=== PATIENT | female | born 1980 | race Caucasian/White ===

== ENCOUNTER → 2019-09-11 08:31 | Outpatient (BNVA) | payer OTHER, SELFPAY | PROVIDERS: PCP Nurse Practitioner Family; Visit Provider Psychiatry & Neurology Psychiatry | DX: F41.1 Generalized anxiety disorder (principal); F31.76 Bipolar disorder, in full remission, most recent episode depressed | CPT/HCPCS: 99213 ==

== ENCOUNTER 2019-09-17 12:55 | Outpatient (CLI) | payer OTHER, SELFPAY ==
--- NOTE | 2019-09-17 13:09 | CT_ITS ---
WS: [id number] CT ABDOMEN AND PELVIS NONCONTRAST HISTORY: NAUSEA AND VOMITING, ABDOMINAL PAIN, GENERALIZED, BLOATING TECHNIQUE: Imaging performed through the abdomen and pelvis. Coronal and sagittal reformats are submi tted. All CT scans at [facility] use at least one of these dose optimization techniques: automated exposure control; mA and/or kV adjustment per patient size (includes targeted exams where d ose is matched to clinical indication); or iterative reconstruction. DLP: 1235.85 mGycm COMPARISON: 07/26/2015 Lower thorax: Lung bases are clear. No hiatal hernia. Liver: Normal size liver with hepatic steatosis. No mass. Gallbladder: Prior cholecystectomy. Pancreas: Normal. Spleen: Normal. Adrenal glands: Normal. Right kidney: Normal size with no stones, masses or atrophy. Left kidney: Normal size with no stones, mass or atrophy. Abdominal aorta and IVC are unremarkable. No free fluid, intraperitoneal air or significant lymphadenopathy. GI tract: Prior appendectomy. Diffuse moderate constipation. No wall thickening or edema. Abdominal wall: Intact. Pelvis: Well-distended urinary bladder. No free fluid or adenopathy. Prior hysterectomy. Osseous structures: Unremarkable. CT/CT abdomen pelvis wo con [id number] IMPRESSION: 1. No acute abdominal or pelvic abnormalities are identified. 2. Moderate diffuse constipation. 3. Prior appendectomy, cholecystectomy and hysterectomy. 4. Hepatic steatosis.
[2019-09-17] MEDS: iohexol 300 mg/mL 50 mL Btl PO (14:49)
== END 2019-09-17 12:56 | disposition home or self-care (01) ==
LOC: RADWPI 13:01
PROVIDERS: PCP Nurse Practitioner Family; Visit Provider Nurse Practitioner Family
DX: K59.00 Constipation, unspecified (principal); K76.0 Fatty (change of) liver, not elsewhere classified; R10.84 Generalized abdominal pain; R14.0 Abdominal distension (gaseous); R19.7 Diarrhea, unspecified; R11.2 Nausea with vomiting, unspecified; Z90.49 Acquired absence of other specified parts of digestive tract; Z90.710 Acquired absence of both cervix and uterus
CPT/HCPCS: 74176

== ENCOUNTER → 2019-11-05 08:37 | Outpatient (BNVA) | payer OTHER, SELFPAY | PROVIDERS: Visit Provider Psychiatry & Neurology Psychiatry | DX: F41.1 Generalized anxiety disorder (principal); F31.76 Bipolar disorder, in full remission, most recent episode depressed | CPT/HCPCS: 80178; 99213 ==

== ENCOUNTER 2020-01-28 22:46 | Emergency (ER) | payer OTHER, SELFPAY ==
--- NOTE | 2020-01-28 22:51 | XR_ITS ---
WS: [id number] XR chest 1V portable [id number] REASON FOR EXAM: chest pain FINDINGS: The heart and mediastinal interfaces normal. The lung jeronimo are well aerated no pneumonia, pleural effusion, pulmonary edema, are pneumothorax. Postop changes in the anterior lower cervical spine. The hilum and apices normal. XR/XR chest 1V portable [id number] IMPRESSION: Negative chest for acute findings.
--- NOTE | 2020-01-28 22:51 | ECG_ITS ---
Measurements Intervals [place] Rate: 108 P: 52 MI: 144 QRS: 89 QRSD: 114 T: 22 QT: 328 QTc: 441 SINUS TACHYCARDIA POSSIBLE LEFT ATRIAL ENLARGEMENT [-0.1mV P WAVE IN V1/V2] MODERATE INTRAVENTRICULAR CONDUCTION DELAY [110+ ms QRS DURATION] ABNORMAL RHYTHM ECG Compared to ECG 07/08/2018 07:29:52 Intraventricular conduction delay now present Sinus rhythm no longer present T-wave abnormality no longer present Electronically Signed On 01-29-2020 19:36:57 CDT by Danilo Concepcion M.D. [email or web address]
[2020-01-28 22:56] VITALS: BP 190/132; PULSE 112; RESP 14; TEMP 36.5; O2SAT 100; BMI 36.2
--- NOTE | 2020-01-28 23:07 | PC.NURSE ---
Patient refused blood draw from phlebotomy and wanted nurse to place IV access and draw blood.
--- NOTE | 2020-01-28 23:10 | ED_ITS ---
HPI - Chest Pain General: Chief Complaint: Chest Pain Stated Complaint: cp Time Seen by Provider: 01/28/20 23:02 History of Present Illness: HPI narrative: Patient complained that chest pain is gone for the last week and a half did see cardiology services they ordered some tests on her earnings come back negative so far but still waiting test has not had blood work done. Patient complains like her heart racing has some chest pain no shortness of breath no diaphoresis said she did vomit x2 today MD complaint: chest pain Onset (ago): day(s) Timing of current episode: increasing Prior episodes: Yes Pain radiation: left arm and neck Severity: moderate Quality: sharp Relieving factors: nothing Exacerbating factors: nothing Associated symptoms: Reports no associated symptoms and vomiting; Deny abdominal pain, dyspnea, fever(s) or nausea Review of Systems Const: Denies: fever(s), chills or body aches Eyes: Denies: change in vision or blurry vision ENMT: Denies: throat pain or nasal congestion Card: Reports: chest pain; Denies: dyspnea on exertion Resp: Denies: dyspnea, productive cough or non-productive cough GI: Reports: vomiting; Denies: abdominal pain or nausea Musc: Denies: extremity pain Skin/Breast: Denies: rash Neuro: Denies: headache(s) Psych: Denies: anxiety or depression Fahad/Lymph: Denies: easy bruising PFSH ED PFSH: Medical History (Updated 01/27/20 @ 14:35 by TORSTEN Baeza) Bipolar disorder, in full remission, most recent episode depressed Chronic renal disease Generalized anxiety disorder Malignant hypertension Surgical History H/O rectal polypectomy H/O total thyroidectomy History of appendectomy History of bilateral oophorectomy 2011 History of spinal fusion 10/01/2013- C5-6, ACDFF Dr. Villanueva History of suburethral sling procedure anterior colporrhapy augmentd with porcine graft, cystoscopy performed on 03/08/[address] Haley History of total hysterectomy 2000 Hx of cholecystectomy Status post hemilaminotomy 01/06/2012, right L5-S1, disectomy and foraminotomy per Dr. Villanueva Family History Mother Diabetes Pancreatic cancer Ovarian cancer Father Diabetes Hypertension Stroke COPD (chronic obstructive pulmonary disease) Grandfather Hypertension maternal Heart disease maternal Grandmother Colon cancer maternal Social History Smoking and tobacco status: never smoked Alcohol intake: never Additional social history: well balanced diet Physical Exam Const: COMMON NORMALS: no acute distress, average body habitus and patient oriented x3 HENMT: COMMON NORMALS: normocephalic HEAD & SCALP: normal to inspection and normocephalic FACE & SINUS: normal facial exam Eye: COMMON NORMALS: conjunctivae normal GENERAL EYE: appearance normal, both eyes and all related structures CONJUNCTIVA: Yes conjunctivae normal Neck/C-Spine: COMMON NORMALS: no JVD Chest: COMMONS NORMALS: normal inspection of the chest Resp: COMMON NORMALS: normal respiratory effort and clear to auscultation bilaterally AUSCULTATION: clear to auscultation bilaterally Cardio: COMMON NORMALS: no JVD, regular rate and regular rhythm RATE: regular rate RHYTHM: regular rhythm GI: COMMON NORMALS: Normal to inspection, nondistended, normoactive bowel sounds present Extremity: COMMON NORMALS: normal to inspection and full ROM Neuro: COMMON NORMALS: patient oriented x3 Course Vital Signs: Vital signs: Vital Signs Temperature 97.7 F 01/28/20 22:56 Pulse Rate 112 H 01/28/20 22:56 Respiratory Rate 14 01/28/20 22:56 Blood Pressure 190/132 01/28/20 22:56 Pulse Oximetry 100 01/28/20 22:56 MDM - Chest Pain EKG Data^: EKG 1: EKG interpretation date: 01/28/20 EKG interpretation time: 22:54 Interpretation: Sinus tach ventricular rate 108 bpm VA interval 144 ms QRS duration 114 ms Discharge Plan Discharge Condition: Good Prescriptions: No Action topiramate [Topamax] 100 mg tablet 100 mg PO BID RF: 0 pantoprazole 40 mg tablet,delayed release (DR/EC) 40 mg PO ONCE RF: 0 ropinirole [Requip] 0.25 mg tablet 0.25 mg PO TID RF: 0 hydromorphone 4 mg tablet 4 mg PO QID RF: 0 promethazine 25 mg tablet 25 mg PO Q6H PRNRF: 0 hydrocodone-acetaminophen 10-325 mg tablet 1 tab PO Q6H PRNRF: 0 multivitamin Capsule 1 cap PO QAM RF: 0 Probiotic Acidophilus 1.5 mg (250 million cell) capsule See Rx Instructions PO DAILY RF: 0 Botox 100 unit recon soln 155 unit IM .every 12 weeks RF: 0 tizanidine 4 mg capsule 4 mg PO QID RF: 0 ondansetron HCl [Zofran] 8 mg tablet 8 mg PO Q8H PRNRF: 0 levothyroxine 112 mcg capsule 137 mcg PO DAILY RF: 0 lithium carbonate 300 mg tablet See Rx Instructions PO .COMPLEX Qty: 90 RF: 5 lithium carbonate 150 mg capsule 150 mg PO QAM Qty: 30 RF: 5 lamotrigine [Lamictal] 200 mg tablet 200 mg PO DAILY Qty: 30 RF: 5 lorazepam [Ativan] 2 mg tablet See Rx Instructions PO .COMPLEX Qty: 60 RF: 5 carvedilol 6.25 mg tablet 6.25 mg PO BID 30 Days Qty: 60 RF: 6 amlodipine 10 mg tablet 10 mg PO DAILY 30 Days Qty: 30 RF: 6 spironolactone [Aldactone] 25 mg tablet 25 mg PO BID 30 Days Qty: 60 RF: 6 losartan-hydrochlorothiazide 100-25 mg tablet 1 tab PO DAILY 30 Days Qty: 30 RF: 12 clonidine HCl 0.3 mg tablet 0.3 mg PO TID 90 Days Qty: 270 RF: 3 Coding Level of Care Code ED [employer] for [employer] Fwd Exam Comprehensive
--- NOTE | 2020-01-28 23:18 | PC.NURSE ---
Previous nursing note charted in error
[2020-01-28 23:22] LABS: Basophils # 0.1 10^3/uL (0.0-0.1); Basophils % 0.5 %; Eosinophils # 0.2 10^3/uL (0.0-0.8); Hematocrit 44.2 % (37.0-47.0); Hemoglobin 12.9 g/dL (11.5-15.3); Lymphocytes # 3.5 10^3/uL (0.8-4.8); Lymphocytes % 30.3 %; Mean Corpuscular HGB Conc 29.2 g/dL (30.0-36.0); Mean Corpuscular Hemoglobin 25.5 pg (28.0-34.0); Mean Corpuscular Volume 87.5 fL (81-99); Mean Platelet Volume 12.2 fL (7.4-10.4); Monocytes # 0.6 10^3/uL (0.2-0.9); Monocytes % 5.2 %; Neutrophils # 7.1 10^3/uL (1.8-7.7); Neutrophils % 61.6 %; Nucleated Red Blood Cells % 0 %; Platelet Count 254 10^3/cmm (130-400); Red Blood Count 5.05 10^6/uL (4.1-5.3); Red Cell Distribution Width 14.6 % (12.1-15.1); White Blood Count 11.6 10^3/uL (4.0-10.0)
[2020-01-28] MEDS: ondansetron 2 mg/ML SDV 2 mL 4 MG IVP (23:26)
[2020-01-28 23:32] LABS: INR 1.01 (0.8-1.2)
[2020-01-28 23:36] LABS: Alanine Aminotransferase 14 U/L (0-33); Alkaline Phosphatase 65 IU/L (35-105); Anion Gap 18.6 (5-19); Aspartate Amino Transferase 12 U/L (0-32); Blood Urea Nitrogen 6 mg/dL (6-20); Calcium 9.9 mg/dL (8.5-10.5); Carbon Dioxide 23 mmol/L (22-29); Chloride 104 mmol/L (98-107); Globulin 3.1 g/dL (1.3-4.6); Glomerular Filtration Rate 54.7 mL/min (90-130); Glucose 115 mg/dL (65-115); Lipase 38 U/L (13-60); Osmolality Calculated 291 mOsm/kg (285-295); Potassium 3.6 mmol/L (3.5-5.1); Sodium 142 mmol/L (136-145); Total Bilirubin 0.3 mg/dL (0.15-1.2); Total Protein 8.1 g/dL (6.6-8.7)
[2020-01-28 23:38] LABS: Troponin T (5th) Once 6 ng/mL (0-10)
[2020-01-29 00:26] VITALS: BP 165/109; PULSE 82; RESP 18; O2SAT 95
--- NOTE | 2020-01-29 00:45 | PC.NURSE ---
i agree with this assessment
== END 2020-01-29 00:26 | disposition home or self-care (01) ==
PROVIDERS: Emergency Medicine; Emergency Provider Nurse Practitioner Family; PCP Nurse Practitioner Family
DX: R07.9 Chest pain, unspecified (principal)
CPT/HCPCS: 12345; 36415; 71045; 80053; 83690; 84484; 85025; 85610; 93005; 96374; 96375; 99282; 99283; J2405

== ENCOUNTER → 2020-02-05 07:27 | Outpatient (BNVA) | payer OTHER, SELFPAY | PROVIDERS: PCP Nurse Practitioner Family; Visit Provider Psychiatry & Neurology Psychiatry | DX: F41.1 Generalized anxiety disorder (principal); F31.76 Bipolar disorder, in full remission, most recent episode depressed; Z79.899 Other long term (current) drug therapy | CPT/HCPCS: 99213 ==

== ENCOUNTER 2020-02-13 07:40 | Outpatient (CLI) | payer OTHER, SELFPAY ==
--- NOTE | 2020-02-13 | XR_ITS ---
WS: [id number] CERVICAL SPINE FLEXION EXTENSION TECHNIQUE: 3 views of the cervical spine: lateral neutral, flexion and extension views. CLINICAL INFORMATION: CERVICAL DISC DISORDER WITH RADICULOPATHY COMPARISON: None. FINDINGS: Straightening with slight reversal the normal cervical lordosis. Normal C1-C2 articulation. ACDF C5-6 . Normal alignment on the neutral view. Normal alignment on the flexion views. Normal alignment in extension. Posterior elements are normal. No other significant findings. XR/XR cervical spine fl/ex [id number] IMPRESSION: 1. Straightening with slight reversal normal cervical lordosis. 2. ACDF C5-6. 3. No instability on flexion extension.
--- NOTE | 2020-02-13 07:55 | MR_ITS ---
WS: [id number] MRI CERVICAL SPINE NONCONTRAST TECHNIQUE: Sagittal T1, T2 and STIR imaging. Axial T2, gradient, and fiesta imaging. CLINICAL INFORMATION: CERVICAL DISC DISORDER WITH RADICULOPATHY COMPARISON: MRI November 07, 2015 FINDINGS: Straightening of the normal cervical lordosis. Anterior interbody cervical fusion C5-C6. Cord signal is normal. No high-grade central canal stenosis. Disc bulging worse at C4-5 eccentric to the left. C2-C3: Normal. C3-C4: Minimal disc bulging. Mild right greater than left foraminal narrowing. Spinal canal is patent . C4-C5: Disc osteophyte complex with left subarticular and proximal foraminal disc osteophyte protrusi on. This results in mild to moderate central canal stenosis with slight contact of the cervical cord. Severe left foraminal narrowing. Mild right foraminal narrowing. This is similar in appearance to [facility] 2015. C5-C6: Anterior cervical fusion with interbody fusion. Osteophytic ridging. Spinal canal is patent. M ild left foraminal narrowing. Mild facet arthropathy. C6-C7: Small central disc protrusion with mild central canal stenosis. Mild to moderate left and no s ignificant right foraminal narrowing. C7-T1: Normal Visualized brain stem structures: Normal. Prevertebral soft tissues: Normal. MR/MR cervical spin wo con* [id number] IMPRESSION: 1. Straightening of the normal cervical lordosis. ACDF C5-C6 appears stable. 2. Disc osteophyte complex C4-C5 with a left subarticular and proximal foramin al disc osteophyte protrusion. This results in [id number] moderate centra l canal stenosis with severe left foraminal narrowing. Impingement on the exiti ng left C5 nerve roots appears unchanged. 3. Small central protrusion C6-C7 with mild central canal stenosis. Mild left foraminal narrowing. 4. Mild bilateral C3-4 foraminal narrowing right greater than left. 5. Overall no significant interval changes since November 07, 2015.
--- NOTE | 2020-02-13 07:56 | MR_ITS ---
WS: [id number] MRI LUMBAR SPINE WITH CONTRAST TECHNIQUE: Sagittal T1, T2 and STIR imaging. Axial T1 and T2 imaging. Post gadolinium imaging was obt ained. CLINICAL INFORMATION: POSTLAMINECTOMY SYNDROME COMPARISON: MRI February 20, 2019 FINDINGS: Mild lumbar curve. No acute compression. Prior postoperative changes laminectomy defects L5-S1. No hi gh-grade central canal stenosis. L1-L2: Normal. L2-L3: Normal. L3-L4: Mild annular bulging. Mild right and no significant left foraminal narrowing. Mild facet arthr opathy. Slight narrowing of the right subarticular recess. L4-L5: Mild annular bulging with slight narrowing of the subarticular recess bilaterally. Right janie inal protrusion contacts the exiting right L4 nerve root with a small annular fissure. Moderate right foraminal narrowing. Left foramen is patent. Moderate facet arthropathy. L5-S1: Prior postoperative changes right hemilaminectomy. Osteophytic ridging with mild right greater than left foraminal narrowing. Mild facet arthropathy. Overall no significant interval changes since February 20, 2019. Partially visualized left ovarian cyst measuring 2.7 cm MR/MR lumbar spine wo/w con [id number] IMPRESSION: 1. Mild lumbar curve. No acute compression. No high-grade central canal stenos is. 2. Right proximal foraminal protrusion L4-5 with a small annular fissure impin ges the exiting right L4 nerve root with moderate right foraminal narrowing. Th is is similar in appearance to 2019. 3. Disc osteophyte complex L5-S1 with mild to moderate right L5-S1 foraminal n arrowing. Prior hemilaminectomy defects at this level. 4. Moderate facet arthropathy L4-5. 5. Overall no significant changes from 2019.
--- NOTE | 2020-02-13 08:26 | XR_ITS ---
WS: [id number] LUMBAR SPINE FLEXION AND EXTENSION TECHNIQUE: 3 views of the lumbar spine: Lateral neutral, flexion, and extension views. CLINICAL INFORMATION: POSTLAMINECTOMY SYNDROME COMPARISON: None. FINDINGS: Normal lumbar alignment on the neutral view. Mild flexion instability with anterolisthesis L5 on S1 m easuring 2 mm. No significant changes on extension. Mild disc space narrowing L5-S1. XR/XR lumbar spine f/e only [id number] IMPRESSION: Mild flexion instability L5-S1 described above.
== END 2020-02-13 07:41 | disposition home or self-care (01) ==
LOC: RADWPI 07:43
PROVIDERS: Family Provider Nurse Practitioner Family; PCP Nurse Practitioner Family; Visit Provider Anesthesiology Pain Medicine
DX: M96.1 Postlaminectomy syndrome, not elsewhere classified (principal); M50.10 Cervical disc disorder with radiculopathy, unspecified cervical region; M51.26 Other intervertebral disc displacement, lumbar region; M25.78 Osteophyte, vertebrae; M47.816 Spondylosis without myelopathy or radiculopathy, lumbar region; M53.2X7 Spinal instabilities, lumbosacral region
CPT/HCPCS: 72040; 72120; 72141; 72158; A9579

== ENCOUNTER 2020-03-18 11:01 | Outpatient (CLI) | payer OTHER, SELFPAY ==
--- NOTE | 2020-03-18 07:15 | USCV_ITS ---
Nina Garcia Age: 40 Gender: F : 1980 Exam Date: 03/18/2020 11:33 Ordering Phys: Chula Stover Technologist: Shirin Santos Exam Location: [facility] [place] Indication: CLAUDICATION Risk Factors: None Previous Vascular Surgery: Unknown RIGHT LEFT BP: 140.0 / BP: 134.0/ 0 0 Waveform Velocity (cm/s) Velocity (cm/s) Waveform Triphasic 151.7 Iliac Prox 132.0 Triphasic Triphasic 129.8 Iliac Mid 104.8 Triphasic Triphasic 106.3 Iliac Distal 67.8 Triphasic Triphasic 89.6 HAMMER OPERATOR 90.1 Triphasic Triphasic 93.3 SFA Prox 59.2 Triphasic Triphasic 93.3 SFA Mid 84.0 Triphasic Triphasic 61.4 SFA Dist 71.9 Triphasic Triphasic 54.4 POP 62.0 Triphasic Monophasic 74.6 BEET FLUMER 53.9 Triphasic Monophasic 73.8 DPA 17.8 Monophasic ROSAURA 1.0 1.3 FINDINGS Normal resting ABIs bilaterally Mild diffuse plaques in the iliac and femoral arteries bilaterally CONCLUSIONS No significant arterial obstruction, based on the above findings Dr Reese Meraz MD [facility] (Electronically Signed) Final Date: 19 March 2020 08:48 S
== END 2020-03-18 11:02 | disposition home or self-care (01) ==
LOC: RAD 11:02
PROVIDERS: PCP Nurse Practitioner Family; Visit Provider Nurse Practitioner Family
DX: I73.9 Peripheral vascular disease, unspecified (principal)
CPT/HCPCS: 93925

== ENCOUNTER → 2020-04-01 08:09 | Outpatient (BNVA) | payer OTHER, SELFPAY | PROVIDERS: PCP Nurse Practitioner Family; Visit Provider Psychiatry & Neurology Psychiatry | DX: F41.1 Generalized anxiety disorder (principal); F33.41 Major depressive disorder, recurrent, in partial remission; Z79.899 Other long term (current) drug therapy | CPT/HCPCS: 99214 ==

== ENCOUNTER → 2020-04-02 09:03 | Outpatient (BNVA) | payer OTHER, SELFPAY | PROVIDERS: PCP Nurse Practitioner Family; Visit Provider Psychiatry & Neurology Psychiatry | DX: Z79.899 Other long term (current) drug therapy (principal) | CPT/HCPCS: 80178 ==

== ENCOUNTER → 2020-04-10 07:49 | Outpatient (BNVA) | payer OTHER, SELFPAY | PROVIDERS: PCP Nurse Practitioner Family; Visit Provider Psychiatry & Neurology Psychiatry | DX: F31.76 Bipolar disorder, in full remission, most recent episode depressed (principal); F41.1 Generalized anxiety disorder | CPT/HCPCS: 99214 ==

== ENCOUNTER → 2020-04-11 10:55 | Outpatient (BNVA) | payer OTHER, SELFPAY | PROVIDERS: PCP Nurse Practitioner Family; Visit Provider Psychiatry & Neurology Psychiatry | DX: Z79.899 Other long term (current) drug therapy (principal) | CPT/HCPCS: 80061; 83036 ==

== ENCOUNTER 2020-04-17 12:42 | Outpatient (CLI) | payer OTHER, SELFPAY ==
--- NOTE | 2020-04-17 12:50 | XR_ITS ---
WS: [id number] EXAM: LEFT SHOULDER: 2 VIEWS DATE OF EXAMINATION: 04/17/2020, 1311 hours COMPARISON: Left humerus exam from 05/17/2016. HISTORY: 40 years old with shoulder pain. FINDINGS: The osseous and joint structures are normal. No soft tissue abnormality is demonstrated. Postop surgi mayra changes with fusion lower cervical spine. XR/XR shoulder LT min 2V* [id number] IMPRESSION: Normal appearance to the left shoulder.
--- NOTE | 2020-04-17 12:50 | XR_ITS ---
WS: [id number] EXAM: RIGHT SHOULDER: 2 VIEWS DATE OF EXAMINATION: 04/17/2020, 1308 hour COMPARISON: Right shoulder examination from 05/06/2010. HISTORY: 40 years old with shoulder pain. FINDINGS: Osseous and joint structures are unremarkable. No soft tissue abnormality is demonstrated. Old postop fusion plate and screws lower cervical spine. XR/XR shoulder RT min 2V* [id number] IMPRESSION: Normal appearance to the right shoulder.
== END 2020-04-17 12:43 | disposition home or self-care (01) ==
LOC: RAD 12:45
PROVIDERS: PCP Nurse Practitioner Family; Visit Provider Nurse Practitioner Family
DX: M25.511 Pain in right shoulder (principal)
CPT/HCPCS: 73030

== ENCOUNTER → 2020-05-09 09:01 | Outpatient (BNVA) | payer OTHER, SELFPAY | PROVIDERS: PCP Nurse Practitioner Family; Visit Provider Psychiatry & Neurology Psychiatry | DX: F31.76 Bipolar disorder, in full remission, most recent episode depressed (principal); F41.1 Generalized anxiety disorder | CPT/HCPCS: 99213 ==

== ENCOUNTER → 2020-05-30 07:52 | Outpatient (BNVA) | payer OTHER, SELFPAY | PROVIDERS: PCP Nurse Practitioner Family; Visit Provider Psychiatry & Neurology Psychiatry | DX: F31.76 Bipolar disorder, in full remission, most recent episode depressed (principal); F41.1 Generalized anxiety disorder | CPT/HCPCS: 99213 ==

== ENCOUNTER 2020-07-03 16:31 | Emergency (ER) | payer OTHER, SELFPAY ==
[2020-07-03] VITALS (8 sets, daily range): BP systolic 150–197; BP diastolic 107–124; PULSE 95–125; RESP 17–18; TEMP 36.7; O2SAT 98–100; BMI 36.8
--- NOTE | 2020-07-03 16:39 | ED_ITS ---
HPI - Abdominal Pain General: Chief Complaint: Nausea/Vomiting/Diarrhea Stated Complaint: SIDE PAIN Time Seen by Provider: 07/03/20 16:36 History of Present Illness: HPI narrative: Patient is a 40-year-old female who comes to the ED with abdominal pain, nausea/vomiting and diarrhea. Past medical history of CKD stage III and hypertension and GERD. Patient was sent here by PCP for further evaluation due to possible diverticulitis. Abdominal pain started approximately 3 days ago. Is located in the left lower quadrant of the abdomen. Abdominal pain rated an 8 out of 10. She has had diarrhea with maroon-colored stool. She is also having nausea and multiple episodes of emesis as well. Endorses fever and chills. Denies any chest pain, shortness of breath, constipation, dysuria or hematuria. Patient says she has never had pain in this part of her abdomen before and denies any bright red blood in stool or black tarry stool. Patient denies any chest pain, shortness of breath or neuro symptoms. Associated Symptoms: Reports chills, diarrhea, fever(s), hematochezia (maroonish colored stool), nausea and vomiting; Denies constipation, dysuria and hematuria Review of Systems Const: Reports: fever(s) and chills; Denies: fatigue Eyes: Denies: change in vision or eye discomfort ENMT: Denies: throat pain, odynophagia, nasal discharge or nasal congestion Card: Denies: chest pain, palpitations, edema, swelling of feet/ankles, dyspnea on exertion or orthopnea Resp: Denies: dyspnea, productive cough or non-productive cough GI: Reports: abdominal pain, nausea, vomiting, diarrhea and hematochezia (maroonish colored stool); Denies: constipation : Denies: flank pain, dysuria or hematuria Musc: Denies: neck pain, back pain or extremity swelling Skin/Breast: Denies: rash or new lesions Neuro: Denies: headache(s), numbness in extremities or weakness in extremities PFSH ED 2 PFSH: Medical History Bipolar disorder, in full remission, most recent episode depressed Chronic renal disease Generalized anxiety disorder Malignant hypertension Surgical History H/O rectal polypectomy H/O total thyroidectomy History of appendectomy History of bilateral oophorectomy 2011 History of spinal fusion 10/01/2013- C5-6, ACDFF Dr. Villanueva History of suburethral sling procedure anterior colporrhapy augmentd with porcine graft, cystoscopy performed on 03/08/[address] Haley History of total hysterectomy 2000 Hx of cholecystectomy Status post hemilaminotomy 01/06/2012, right L5-S1, disectomy and foraminotomy per Dr. Villanueva Family History Mother Diabetes Pancreatic cancer Ovarian cancer Father Diabetes Hypertension Stroke COPD (chronic obstructive pulmonary disease) Grandfather Hypertension maternal Heart disease maternal Grandmother Colon cancer maternal Social History Smoking and tobacco status: never smoked Alcohol intake: never Additional social history: well balanced diet Physical Exam Const: COMMON NORMALS: patient oriented x3 and alert GENERAL APPEARANCE: cooperative; not comfortable (Patient appears uncomfortable and in pain.) NUTRITIONAL APPEARANCE: overweight HENMT: COMMON NORMALS: normocephalic HEAD & SCALP: normocephalic MOUTH: moist mucous membranes abnormal (Patient's oral mucosa is showing signs of dehydration.) Details: parched THROAT: posterior oropharynx normal and uvula midline Eye: COMMON NORMALS: Equal, round and reactive pupils present PUPIL: Yes Equal, round and reactive pupils present Neck/C-Spine: COMMON NORMALS: supple GENERAL: Yes normal visual inspection Resp: COMMON NORMALS: normal respiratory effort, No retractions, No use of accessory muscles and clear to auscultation bilaterally AUSCULTATION: clear to auscultation bilaterally Cardio: COMMON NORMALS: regular rate, regular rhythm, S1 normal heart sound present, S2 normal heart sound present, No gallops present (Cardio), No clicks present (Cardio), No murmurs present (Cardio) and Peripheral pulses 2+ throughout RATE: regular rate RHYTHM: regular rhythm HEART SOUNDS: S1 normal heart sound present and S2 normal heart sound present PERIPHERAL PULSES: Peripheral pulses 2+ throughout GI: COMMON NORMALS: Normal to inspection, nondistended, normoactive bowel sounds present, Soft to palpation and no masses INSPECTION: Yes abdominal distension PALPATION: Yes Soft to palpation and Yes Tenderness to palpation present (GI) Details: LLQ (moderate tenderness) : COMMON NORMALS: Yes no CVA tenderness BLADDER/KIDNEY EXAM: Yes no CVA tenderness Back/Pelvis: COMMON NORMALS: no CVA tenderness Extremity: COMMON NORMALS: normal to inspection and no pedal edema Neuro: COMMON NORMALS: patient oriented x3 SENSORIUM/ORIENTATION: Yes alert GAIT: Yes Normal gait present Skin: GENERAL SKIN EXAM: dry skin Course Reevaluation(s): Reevaluation #1: I went and check on patient and about labs and CT results. She said her pain has not improved much but she is feeling less nauseous. Her heart rate is still elevated and in the 115 -120 range. Patient still has about 0.5 L of fluid left in IV bag. I told her I will order some Dilaudid, Phenergan and another liter of IV fluids and reassess after meds given. Time: 19:12 Reevaluation #2: Patient's pain and nausea is under control she currently says she feels back to normal and is ready to go home. Her blood pressure after labetalol went down to 157/117. I rechecked it before I was going to discharge patient and it went back up to 190s over 130s. And blood pressure was checked multiple times to verify accuracy. I am going to give patient clonidine dose and recheck blood pressure. Time: 22:17 Reevaluation #3: Recheck patient's blood pressure after she was given clonidine dose. Blood pressure was 189/108. Patient was feeling normal and ready to go home and rest. Time: 22:38 Vital Signs: Vital signs: Vital Signs Temperature 98.1 F 07/03/20 16:33 Pulse Rate 102 H 07/03/20 22:50 Respiratory Rate 17 07/03/20 22:50 Blood Pressure 150/116 07/03/20 22:50 Pulse Oximetry 98 07/03/20 22:50 MDM - Abdominal Pain MDM Narrative: Medical decision making narrative: Patient was sent here to the ED by PCP for evaluation for possible diverticulitis due to left lower quadrant abdominal pain, nausea/vomiting and diarrhea with blood in the stool. Patient has past medical history of CKD stage III,hypertension and hypothyroidism. physical exam showed moderate left lower quadrant tenderness upon palpation. Patient's mucous membranes were dry showing signs of dehydration. Pulse 125 and blood pressure 167/124, respirations 18, temp 98.1 and O2 sat 98% room air. White blood cell count 10.6 and rest of CBC unremarkable. Creatinine of 1.5 (looking at past labs patient's creatinine is around 1.1) And rest of CMP unremarkable. Lipase 40, hCG negative, UA unremarkable. Lactic 0.8. EKG shows sinus tachycardia with no ST segment elevation or depression seen. Chest x-ray shows no acute findings. CT of abdomen showed no acute findings. Patient symptoms improved greatly with IV 2 L fluid, Dilaudid and promethazine. He stated she was feeling back to normal and ready to go home. Patient's pulse continued to be 120 range and blood pressure got up to 197/115. Patient had no other symptoms with the elevated blood pressure and stated she felt fine. I discussed case with Dr. Mohan and he looked at labs and imaging. He ordered IV labetalol and told me to order chest x-ray and EKG. She was then given 20 mg of IV labetalol along with clonidine 0.3 mg PO. Patient's blood pressure finally decreased to 189/108. Patient was discharged and told to follow-up with PCP by early next week to recheck creatinine lab. She was sent home with prescription of Phenergan. She was told to continue taking blood pressure medications as previously prescribed. Return to ED precautions given. Patient understood and agreed with plan. Lab Data: Attestation: I reviewed the patient's lab results. Labs: Lab Results 07/03/20 07/03/20 07/03/20 Range/Units 17:02 17:02 17:02 WBC 10.6 H (4.0-10.0) 10^3/ uL RBC 5.47 H (4.1-5.3) 10^6/u L Hgb 14.2 (11.5-15.3) g/dL Hct 48.0 H (37.0-47.0) % MCV 87.8 (81-99) fL MCH 26.0 L (28.0-34.0) pg MCHC 29.6 L (30.0-36.0) g/dL RDW 14.6 (12.1-15.1) % Plt Count 272 (130-400) 10^3/c mm MPV 12.5 H (7.4-10.4) fL Neut % (Auto) 62.9 % Lymph % (Auto) 29.0 % [place] % (Auto) 4.9 % Eos % (Auto) 1.8 % Baso % (Auto) 0.7 % Neut # (Auto) 6.66 (1.8-7.7) 10^3/u L Lymph # (Auto) 3.1 (0.8-4.8) 10^3/u L [place] # (Auto) 0.5 (0.2-0.9) 10^3/u L Eos # (Auto) 0.2 (0.0-0.8) 10^3/u L Baso # (Auto) 0.1 (0.0-0.1) 10^3/u L Nucleated RBC % (a uto) 0 % Nucleated RBCs # 0.0 /100WBC Sodium 138 (136-145) mmol/L Potassium 3.8 (3.5-5.1) mmol/L Chloride 103 (98-107) mmol/L Carbon Dioxide 25 (22-29) mmol/L Anion Gap 13.8 (5-19) BUN 9 (6-20) mg/dL Creatinine 1.5 H (0.5-0.9) mg/dL GFR Calculation 38.1 L (90-130) mL/min Glucose 92 (65-115) mg/dL Calculated Osmolal ity 284 L (285-295) mOsm/k g Lactic Acid (0.5-2.2) mmol/L Calcium 10.3 (8.5-10.5) mg/dL Total Bilirubin 0.3 (0.15-1.2) mg/dL AST 12 (0-32) U/L ALT 14 (0-33) U/L Alkaline Phosphata se 79 (35-105) IU/L Total Protein 8.6 (6.6-8.7) g/dL Albumin 5.0 (3.5-5.2) g/dL Globulin 3.6 (1.3-4.6) g/dL Lipase 40 (13-60) U/L HCG, Qual Negative (Negative) Urine Color (Yellow) Urine Appearance (CLEAR) Urine pH (5-7) Ur Specific Gravit y (1.005-1.030) Urine Protein (Negative) Urine Glucose (UA) (Normal) Urine Ketones (Negative) Urine Blood (Negative) Urine Nitrate (Negative) Urine Bilirubin (Negative) Urine Urobilinogen (Negative) mg/dL Ur Leukocyte Kari ase (Negative) Urine RBC (0-2) /hpf Urine WBC (0-5) /hpf Ur Squamous Epith Cells (0-5) /hpf Amorphous Sediment Urine Bacteria (NONE) /hpf 07/03/20 07/03/20 Range/Units 17:17 19:37 WBC (4.0-10.0) 10^3/ uL RBC (4.1-5.3) 10^6/u L Hgb (11.5-15.3) g/dL Hct (37.0-47.0) % MCV (81-99) fL MCH (28.0-34.0) pg MCHC (30.0-36.0) g/dL RDW (12.1-15.1) % Plt Count (130-400) 10^3/c mm MPV (7.4-10.4) fL Neut % (Auto) % Lymph % (Auto) % [place] % (Auto) % Eos % (Auto) % Baso % (Auto) % Neut # (Auto) (1.8-7.7) 10^3/u L Lymph # (Auto) (0.8-4.8) 10^3/u L [place] # (Auto) (0.2-0.9) 10^3/u L Eos # (Auto) (0.0-0.8) 10^3/u L Baso # (Auto) (0.0-0.1) 10^3/u L Nucleated RBC % (a uto) % Nucleated RBCs # /100WBC Sodium (136-145) mmol/L Potassium (3.5-5.1) mmol/L Chloride (98-107) mmol/L Carbon Dioxide (22-29) mmol/L Anion Gap (5-19) BUN (6-20) mg/dL Creatinine (0.5-0.9) mg/dL GFR Calculation (90-130) mL/min Glucose (65-115) mg/dL Calculated Osmolal ity (285-295) mOsm/k g Lactic Acid 0.8 (0.5-2.2) mmol/L Calcium (8.5-10.5) mg/dL Total Bilirubin (0.15-1.2) mg/dL AST (0-32) U/L ALT (0-33) U/L Alkaline Phosphata se (35-105) IU/L Total Protein (6.6-8.7) g/dL Albumin (3.5-5.2) g/dL Globulin (1.3-4.6) g/dL Lipase (13-60) U/L HCG, Qual (Negative) Urine Color Yellow (Yellow) Urine Appearance Hazy A (CLEAR) Urine pH 6 (5-7) Ur Specific Gravit y 1.020 (1.005-1.030) Urine Protein Neg (Negative) Urine Glucose (UA) Norm (Normal) Urine Ketones Negative (Negative) Urine Blood Neg (Negative) Urine Nitrate Negative (Negative) Urine Bilirubin Neg (Negative) Urine Urobilinogen Norm (Negative) mg/dL Ur Leukocyte Kari ase Negative (Negative) Urine RBC None (0-2) /hpf Urine WBC None (0-5) /hpf Ur Squamous Epith Cells 25-40 H (0-5) /hpf Amorphous Sediment Not Reportable Urine Bacteria 1+ H (NONE) /hpf Imaging Data ^: CT Abd/Pel: Attestation: I personally reviewed and interpreted this imaging study as follows: Radiologist's impression: [place] [address] CT Scan Report Signed Patient: Nina Garcia Unit #: [id number] : 1980 Age/Sex: 40 / F ADM Date: 07/03/20 Loc: ER Room/Bed: Attending Dr: Ordering Provider/Ordering MD: Dheeraj Lucas Date of Service: 07/03/20 Procedure(s): CT abdomen pelvis con [id number] Accession Number(s): [id number] Report Number: [id number] PROCEDURE INFORMATION: Exam: CT Abdomen And Pelvis Without Contrast Exam date and time: 07/03/2020 5:52 PM Age: 40 years old Clinical indication: Other: Diarrhea; Abdominal pain; Localized; Left lower quadrant (llq); Prior surgery; Surgery type: Gb, hyst, appy; Additional info: Llq pain and diarrhea TECHNIQUE: Imaging protocol: Computed tomography of the abdomen and pelvis without contrast. Radiation optimization: All CT scans at this facility use at least one of these dose optimization techniques: automated exposure control; mA and/or kV adjustment per patient size (includes targeted exams where dose is matched to clinical indication); or iterative reconstruction. COMPARISON: CT abdomen pelvis wo con [id number] 09/17/2019 2:47 PM RADIATION DOSE METRICS: Total DLP (mGy-cm): 1631.57 FINDINGS: Lungs: No significant abnormaility demonstrated. Liver: Decreased hepatic density is noted, consistent with hepatic steatosis. Gallbladder and bile ducts: The gallbladder is surgically absent. No biliary dilatation. Pancreas: Unremarkable. No ductal dilation. Spleen: Unremarkable. No splenomegaly. Adrenal glands: Unremarkable. No mass. Kidneys and ureters: Unremarkable. No hydronephrosis. Stomach and bowel: No acute gastric abnormality demonstrated. The small bowel is unremarkable as demonstrated. No acute abnormality/inflammatory change of the colon. Appendix: No evidence of appendicitis. Intraperitoneal space: No free air. No significant fluid collection. Vasculature: No abdominal aortic aneurysm. Lymph nodes: No enlarged lymph nodes. Urinary bladder: Unremarkable as visualized. Reproductive: The uterus is not visualized, consistent with hysterectomy. Bones/joints: Unremarkable. No acute fracture. Soft tissues: Unremarkable. CT/CT abdomen pelvis con [id number] IMPRESSION: 1. Decreased hepatic density is noted, consistent with hepatic steatosis. 2. No acute abnormality demonstrated in the abdomen and pelvis. 3. There is no interval change from the prior examination. Radiation Dose CTDIVOL = (mGy): DLP = 1631.57 (mGy-cm) Dictated By: Blaise Teixeira MD Signed By: Blaise Teixeira MD Signed Date/Time: 07/03/201832 DD/ 31 CXR: Attestation: I personally reviewed and interpreted this imaging study as follows: My impression: Chest x-ray showed no acute findings. EKG Data ^: EKG 1: Attestation: I personally reviewed and interpreted this EKG as follows: EKG interpretation date: 07/03/20 Interpretation: Sinus tachycardia, 111 bpm, no ST segment elevation or depression seen. Discharge Plan Discharge Patient Disposition: Home Clinical Impression: Elevated serum creatinine, Asymptomatic hypertensive urgency, Dehydration determined by examination, Abdominal pain of unknown etiology Condition: Stable Prescriptions: New promethazine 25 mg tablet 25 mg PO TID PRN (Reason: nausea and vomiting) Qty: 30 RF: 0 No Action lithium carbonate 150 mg capsule 450 mg PO QAM RF: 0 ondansetron HCl [Zofran] 8 mg tablet 8 mg PO Q12H RF: 0 lamotrigine [Lamictal] 200 mg tablet 200 mg PO DAILY Qty: 30 RF: 5 lithium carbonate 300 mg tablet See Rx Instructions PO .COMPLEX Qty: 90 RF: 5 lorazepam [Ativan] 2 mg tablet See Rx Instructions PO .COMPLEX Qty: 60 RF: 5 pantoprazole 40 mg tablet,delayed release (DR/EC) 40 mg PO DAILY RF: 0 ropinirole [Requip] 0.25 mg tablet 0.25 mg PO TID RF: 0 hydromorphone 4 mg tablet 4 mg PO QID RF: 0 hydrocodone-acetaminophen 10-325 mg tablet 1 tab PO Q6H PRN (Reason: Pain) RF: 0 multivitamin Capsule 1 cap PO QAM RF: 0 Probiotic Acidophilus 1.5 mg (250 million cell) capsule See Rx Instructions PO DAILY RF: 0 tizanidine 4 mg capsule 4 mg PO QID RF: 0 levothyroxine 112 mcg capsule 125 mcg PO DAILY RF: 0 isosorbide mononitrate 30 mg tablet extended release 24 hr 30 mg PO DAILY Qty: 90 RF: 1 amlodipine 10 mg tablet 10 mg PO DAILY 30 Days Qty: 30 RF: 6 clonidine HCl 0.3 mg tablet 0.3 mg PO TID 90 Days Qty: 270 RF: 3 spironolactone 25 mg tablet 25 mg PO BID Qty: 180 RF: 3 carvedilol 12.5 mg tablet 12.5 mg PO BID Qty: 180 RF: 3 losartan-hydrochlorothiazide 100-25 mg tablet 1.5 tab PO DAILY Qty: 135 RF: 3 topiramate 100 mg tablet See Rx Instructions .ROUTE .COMPLEX Qty: 30 RF: 3 furosemide 20 mg tablet 20 mg PO DAILY Qty: 90 RF: 3 Latuda 20 mg tablet 20 mg PO BEDTIME RF: 0 Discharge Orders: Discharge Order (Routine); Ordered 07/03/20 Ordered By: Dheeraj Lucas Referrals: RICHIE ESPAÑA, COATER [Primary Care Provider] - Discharge Diet: Advance as tolerated Discharge Activity: Increase activity as tolerated Patient Instructions: Dehydration (ED), Abdominal Pain (ED), Hypertension (ED) Activity Restrictions/Additional Instructions: Follow-up with medical provider as directed in the next 3 to 5 days to have cre atinine level checked. Make sure you are staying hydrated and drinking plenty of fluids. Take medications as prescribed. Return to the ER or your medical provider if condition worsens. Please read and understand discharge instructions. If any questions, please ask. Discharge Date/Time: 07/03/20 22:51 Coding Level of Care Code ED Sales Systems Engineer for Ingrid Fwdiaz Exam Comprehensive
[2020-07-03 17:12] LABS: Basophils # 0.1 10^3/uL (0.0-0.1); Basophils % 0.7 %; Eosinophils # 0.2 10^3/uL (0.0-0.8); Eosinophils % 1.8 %; Hemoglobin 14.2 g/dL (11.5-15.3); Lymphocytes # 3.1 10^3/uL (0.8-4.8); Mean Corpuscular HGB Conc 29.6 g/dL (30.0-36.0); Mean Corpuscular Volume 87.8 fL (81-99); Mean Platelet Volume 12.5 fL (7.4-10.4); Monocytes # 0.5 10^3/uL (0.2-0.9); Monocytes % 4.9 %; Neutrophils # 6.66 10^3/uL (1.8-7.7); Neutrophils % 62.9 %; Nucleated Red Blood Cells % 0 %; Platelet Count 272 10^3/cmm (130-400); Red Blood Count 5.47 10^6/uL (4.1-5.3); Red Cell Distribution Width 14.6 % (12.1-15.1); White Blood Count 10.6 10^3/uL (4.0-10.0)
--- NOTE | 2020-07-03 17:18 | CTR_ITS ---
PROCEDURE INFORMATION: Exam: CT Abdomen And Pelvis Without Contrast Exam date and time: 07/03/2020 5:52 PM Age: 40 years old Clinical indication: Other: Diarrhea; Abdominal pain; Localized; Left lower quadrant (llq); Prior surgery; Surgery type: Gb, hyst, appy; Additional info: Llq pain and diarrhea TECHNIQUE: Imaging protocol: Computed tomography of the abdomen and pelvis without contrast. Radiation optimization: All CT scans at this facility use at least one of these dose optimization techniques: automated exposure control; mA and/or kV adjustment per patient size (includes targeted exams where dose is matched to clinical indication); or iterative reconstruction. COMPARISON: CT abdomen pelvis wo con [id number] 09/17/2019 2:47 PM RADIATION DOSE METRICS: Total DLP (mGy-cm): 1631.57 FINDINGS: Lungs: No significant abnormaility demonstrated. Liver: Decreased hepatic density is noted, consistent with hepatic steatosis. Gallbladder and bile ducts: The gallbladder is surgically absent. No biliary dilatation. Pancreas: Unremarkable. No ductal dilation. Spleen: Unremarkable. No splenomegaly. Adrenal glands: Unremarkable. No mass. Kidneys and ureters: Unremarkable. No hydronephrosis. Stomach and bowel: No acute gastric abnormality demonstrated. The small bowel is unremarkable as demonstrated. No acute abnormality/inflammatory change of the colon. Appendix: No evidence of appendicitis. Intraperitoneal space: No free air. No significant fluid collection. Vasculature: No abdominal aortic aneurysm. Lymph nodes: No enlarged lymph nodes. Urinary bladder: Unremarkable as visualized. Reproductive: The uterus is not visualized, consistent with hysterectomy. Bones/joints: Unremarkable. No acute fracture. Soft tissues: Unremarkable. CT/CT abdomen pelvis con [id number] IMPRESSION: 1. Decreased hepatic density is noted, consistent with hepatic steatosis. 2. No acute abnormality demonstrated in the abdomen and pelvis. 3. There is no interval change from the prior examination. Radiation Dose CTDIVOL = (mGy): DLP = 1631.57 (mGy-cm)
[2020-07-03] MEDS: morphine 4 mg/mL SDV 1 mL IVP (17:28)
[2020-07-03] MEDS: metoclopramide 5 mg/mL SDV 2 mL 10 MG IVP (17:28)
[2020-07-03] MEDS: sodium chloride 0.9% 1,000 ML 999 ML IV ×2 (17:29→19:18)
[2020-07-03 17:41] LABS: HCG, Serum Qual Negative (Negative)
[2020-07-03 17:45] LABS: Alanine Aminotransferase 14 U/L (0-33); Alkaline Phosphatase 79 IU/L (35-105); Anion Gap 13.8 (5-19); Aspartate Amino Transferase 12 U/L (0-32); Blood Urea Nitrogen 9 mg/dL (6-20); Calcium 10.3 mg/dL (8.5-10.5); Carbon Dioxide 25 mmol/L (22-29); Chloride 103 mmol/L (98-107); Globulin 3.6 g/dL (1.3-4.6); Glomerular Filtration Rate 38.1 mL/min (90-130); Glucose 92 mg/dL (65-115); Lipase 40 U/L (13-60); Osmolality Calculated 284 mOsm/kg (285-295); Potassium 3.8 mmol/L (3.5-5.1); Sodium 138 mmol/L (136-145); Total Bilirubin 0.3 mg/dL (0.15-1.2); Total Protein 8.6 g/dL (6.6-8.7)
[2020-07-03 18:21] LABS: Urine Appearance Hazy (CLEAR); Urine Color Yellow (Yellow); pH Urine 6 (5-7)
[2020-07-03 18:26] LABS: Add Urine Culture? No; Bacteria Urine 1+ /hpf; Bilirubin Urine Neg (Negative); Blood Urine Neg (Negative); Glucose Urine UA Norm (Normal); Ketones Urine Negative (Negative); Leukocyte Esterase Urine Negative (Negative); Nitrate Urine Negative (Negative); Protein Urine Neg (Negative); Squamous Epithelial Cell Urine 25-40 /hpf (0-5); Urobilinogen Urine Norm (Negative)
[2020-07-03] MEDS: HYDROmorphone 1 mg/mL INJ 1 mL IVP (19:18)
[2020-07-03] MEDS: promethazine 25 mg/mL SDV 1 mL IM (19:23)
[2020-07-03 20:00] LABS: Lactic Sepsis W/Reflex 0.8 mmol/L (0.5-2.2)
--- NOTE | 2020-07-03 20:16 | XR_ITS ---
WS: [id number] XR chest 1V portable [id number] REASON FOR EXAM: tachycardic FINDINGS: The chest is unchanged compared to previous examination of 01/28/2020. The heart and mediastinum are within normal limits. No active pulmonary parenchymal or pleural disease is seen. The bony thorax is intact. XR/XR chest 1V portable [id number] IMPRESSION: No acute chest abnormality.
--- NOTE | 2020-07-03 20:16 | ECG_ITS ---
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1980 Requested By: Dheeraj Lucas Order Number: [id number] Chan MD: SHIVANI GONZALEZ Measurements Intervals Desha Rate: 111 P: 51 SD: 153 QRS: 99 QRSD: 90 T: 8 QT: 317 QTc: 432 Interpretive Statements SINUS TACHYCARDIA POSSIBLE LEFT ATRIAL ENLARGEMENT [-0.1mV P WAVE IN V1/V2] BORDERLINE RIGHT AXIS DEVIATION [QRS AXIS > 90] ABNORMAL RHYTHM ECG Compared to ECG 01/28/2020 22:54:30 Intraventricular conduction delay no longer present Electronically Signed On 07-04-2020 19:29:20 PACKING CHECKER by SHIVANI GONZALEZ [id number]
[2020-07-03] MEDS: labetalol 5 mg/mL SDV 20mL 20 MG IVP (20:48)
[2020-07-03] MEDS: cloNIDine 0.1 mg Tablet 0.3 MG PO (22:21)
== END 2020-07-03 22:51 | disposition home or self-care (01) ==
PROVIDERS: Emergency Provider Physician Assistant; PCP Nurse Practitioner Family
DX: R10.9 Unspecified abdominal pain (principal); E86.0 Dehydration; I16.0 Hypertensive urgency; R79.89 Other specified abnormal findings of blood chemistry; I10 Essential (primary) hypertension
CPT/HCPCS: 12345; 71045; 74176; 80053; 81001; 83605; 83690; 84703; 85025; 87040; 93005; 96361; 96372; 96374; 96375; 99283; 99284; J1170; J2270; J2550; J2765; J3490; J7030

== ENCOUNTER → 2020-07-10 08:07 | Outpatient (BNVA) | payer OTHER, SELFPAY | PROVIDERS: PCP Nurse Practitioner Family; Visit Provider Psychiatry & Neurology Psychiatry | DX: F31.76 Bipolar disorder, in full remission, most recent episode depressed (principal); F41.1 Generalized anxiety disorder; N18.9 Chronic kidney disease, unspecified; I10 Essential (primary) hypertension | CPT/HCPCS: 99214 ==

== ENCOUNTER → 2020-07-18 14:26 | Outpatient (BNVA) | payer OTHER, SELFPAY | PROVIDERS: PCP Nurse Practitioner Family; Visit Provider Psychiatry & Neurology Psychiatry | DX: Z79.899 Other long term (current) drug therapy (principal) | CPT/HCPCS: 80178 ==

== ENCOUNTER → 2020-08-07 16:26 | Outpatient (BNVA) | payer OTHER, SELFPAY | PROVIDERS: PCP Nurse Practitioner Family; Visit Provider Surgery | DX: Z01.812 Encounter for preprocedural laboratory examination (principal); Z20.828 Contact with and (suspected) exposure to other viral communicable diseases | CPT/HCPCS: 87635 ==

== ENCOUNTER 2020-08-12 07:57 | Day surgery (SDC) | payer OTHER, SELFPAY ==
[2020-08-12 08:17] VITALS: BP 157/112; PULSE 79; RESP 18; TEMP 36.8; O2SAT 100
[2020-08-12] MEDS: sodium chloride 0.9% 1,000 ML 30 ML IV (08:26)
--- NOTE | 2020-08-12 09:03 | ANES.PREANE2 ---
Pre-Anesthetic Assessment Pre-Anesthetic Assessment: Height/Weight: Height 1.65 m Weight 100.244 kg Temp Pulse Resp BP Pulse Ox 98.2 F 79 18 157/112 100 08/12/20 08:17 08/12/20 08:17 08/12/20 08:17 08/12/20 08:17 08/12/20 08:17 Preop Diagnosis: panendoscopy Proposed Procedure: Operation Date: 08/12/20 09:00 Proposed Procedures p EGD 25704 92603 K92.0 K92.1(Not Applicable) - Yonis Farooq MD s Colonoscopy(Not Applicable) - Yonis Farooq MD Was Beta Jumana taken within 24 hours: N/A Last intake: Intake Last Liquid Date 08/11/20 Last Liquid Time 20:00 Last Solid Date 08/10/20 Last Solid Time 20:00 Social: Social History: No alcohol and No tobacco Exam: Pre-Anes Outpt Exam: alert, oriented x 3, clear to auscultation bilaterally and regular rate & rhythm Airway: Submandibular: WNL Cervical ROM: WNL MP: 1 Dentition: Partials Pulmonary: Pulmonary: None reported CV/HEM: CV/HEM: HTN : : Chronic renal Insufficiency Hepatic: Hepatic: None reported GI: GI: None reported Comments: Hematemesis and lower GI bleeding Metabolic: Metabolic: Thyroid Musc/skel: Musc/skel: None reported Anesthetic Plan: ASA status: 3 Anesthesia: MAC Meds/Allergies Current Medications: Current Medications Generic Name Dose Route Start Last Admin Trade Name Freq PRN Reason Stop Dose Admin Sodium Chloride 1,000 mls @ 30 ml s/hr 08/12/20 08:15 08/12/20 08:26 Sodium Chloride 0.9% IV 08/13/20 08:14 30 mls/hr .Q24H ZARINA Administration PFSH Anesthesia PFSH: Medical History Bipolar disorder, in full remission, most recent episode depressed Chronic renal disease Generalized anxiety disorder Malignant hypertension Surgical History H/O angioplasty H/O esophagogastroduodenoscopy H/O rectal polypectomy H/O total thyroidectomy History of appendectomy History of bilateral oophorectomy 2011 History of colonoscopy with polypectomy History of spinal fusion 10/01/2013- C5-6, ACDFF Dr. Villanueva History of suburethral sling procedure anterior colporrhapy augmentd with porcine graft, cystoscopy performed on 03/08/[address] Haley History of total hysterectomy 2000 Hx of cholecystectomy Status post hemilaminotomy 01/06/2012, right L5-S1, disectomy and foraminotomy per Dr. Villanueva Family History Mother Diabetes Pancreatic cancer Ovarian cancer Father Diabetes Hypertension Stroke COPD (chronic obstructive pulmonary disease) Grandfather Hypertension maternal Heart disease maternal Grandmother Colon cancer maternal Social History Smoking and tobacco status: never smoked Alcohol intake: never Additional social history: well balanced diet Data Anesthesia Cardiac Studies: No Data to Display
--- NOTE | 2020-08-12 09:12 | W.PM.OPSUD ---
Surgery/Procedure H&P Update DATE OF PROCEDURE: August 12, 2020 DATE H&P PERFORMED: 07/18/20 H&P UPDATE INFORMATION: I have reviewed H&P completed within last 30 days, I have examined patient prior to procedure and No changes to prior documentation PREOP DIAGNOSIS: panendoscopy PLANNED PROCEDURE: Operation Date: 08/12/20 09:00 Proposed Procedures p EGD [id number] 74346 K92.0 K92.1(Not Applicable) - Yonis Farooq MD s Colonoscopy(Not Applicable) - Yonis Farooq MD
[2020-08-12 09:43] VITALS: PULSE 72; RESP 18; TEMP 36.1; O2SAT 100
[2020-08-12 09:55] VITALS: BP 142/89; PULSE 76; RESP 18; O2SAT 100
--- NOTE | 2020-08-12 10:45 | ANE.PACU2 ---
Inpatient post-anesthesia follow up: Airway intact: Yes Vital signs: Temperature 97 F Pulse Rate 76 Respiratory Rate 18 Blood Pressure 142/89 Pulse Oximetry 100 Oxygen Delivery Me thod Room Air Oxygen Flow Rate 3 Fraction of Inspir ed Oxygen Hydration adequate: Yes Nausea and vomiting: No Mental status: Baseline
--- NOTE | 2020-08-12 11:10 | ANE.PACU2 ---
Inpatient post-anesthesia follow up: Airway intact: Yes Vital signs: Temperature 97 F Pulse Rate 76 Respiratory Rate 18 Blood Pressure 142/89 Pulse Oximetry 100 Oxygen Delivery Me thod Room Air Oxygen Flow Rate 3 Fraction of Inspir ed Oxygen Hydration adequate: Yes Nausea and vomiting: No Pain level: 2 Mental status: Baseline
== END 2020-08-12 10:20 | disposition home or self-care (01) ==
PROVIDERS: PCP Nurse Practitioner Family; Visit Provider Surgery
PROC: 0DJ08ZZ Inspection of Upper Intestinal Tract, Via Natural or Artificial Opening Endoscopic (ICD-10-PCS; CPT 43235; principal; 2020-08-12 09:00)
PROC: 0DJD8ZZ Inspection of Lower Intestinal Tract, Via Natural or Artificial Opening Endoscopic (ICD-10-PCS; CPT 45378; 2020-08-12 09:00)
DX: K92.1 Melena (principal); K92.0 Hematemesis; K64.8 Other hemorrhoids; K29.70 Gastritis, unspecified, without bleeding; I10 Essential (primary) hypertension; F41.9 Anxiety disorder, unspecified
CPT/HCPCS: 12345; 43239; 45378; 88305; J2704; J7030

== ENCOUNTER → 2020-09-04 08:10 | Outpatient (BNVA) | payer OTHER, SELFPAY | PROVIDERS: PCP Nurse Practitioner Family; Visit Provider Psychiatry & Neurology Psychiatry | DX: F31.76 Bipolar disorder, in full remission, most recent episode depressed (principal); F41.1 Generalized anxiety disorder | CPT/HCPCS: 99214 ==

== ENCOUNTER 2020-09-19 21:11 | Observation (INO) | payer OTHER, SELFPAY ==
[2020-09-19] VITALS (8 sets, daily range): BP systolic 192–224; BP diastolic 118–143; PULSE 85–127; RESP 18; TEMP 36.8; O2SAT 98–99; BMI 36.9
--- NOTE | 2020-09-19 21:22 | ECG_ITS ---
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1980 Requested By: James Mohan Order Number: [id number] Reading MD: SHIVANI GONZALEZ Measurements Intervals [place] Rate: 130 P: 48 KS: 144 QRS: 85 QRSD: 83 T: 26 QT: 306 QTc: 450 Interpretive Statements SINUS TACHYCARDIA POSSIBLE ANTERIOR MYOCARDIAL INFARCTION [30 ms Q WAVE IN V3/V4, OR R < 0.2 mV IN V4], PROBABLY OLD ABNORMAL RHYTHM ECG Compared to ECG 07/03/2020 20:49:04 Myocardial infarct finding now present Electronically Signed On 09-20-2020 18:17:09 [facility] by SHIVANI GONZALEZ [id number] f
--- NOTE | 2020-09-19 21:22 | XRR_ITS ---
PROCEDURE INFORMATION: Exam: XR Chest, 1 View Exam date and time: 09/19/2020 9:40 PM Age: 40 years old Clinical indication: Chest pain; Type not specified; Additional info: Cp TECHNIQUE: Imaging protocol: XR of the chest Views: 1 view. COMPARISON: CR XR chest 1V portable [id number] 07/03/2020 8:29 PM FINDINGS: Lungs: No CHF/pulmonary edema. Visible lungs appear essentially clear. Pleural space: No visible pneumothorax. No definite pleural fluid. Heart/Mediastinum: Heart size is within normal limits. Bones/joints: No significant acute finding. XR/XR chest 1V portable [id number] IMPRESSION: 1. Essentially unremarkable single view chest. 2. No significant interval change. 3. Other details discussed above.
[2020-09-19 21:47] LABS: Basophils # 0.1 10^3/uL (0.0-0.1); Basophils % 0.5 %; Eosinophils # 0.3 10^3/uL (0.0-0.8); Eosinophils % 2.2 %; Hemoglobin 13.4 g/dL (11.5-15.3); Lymphocytes # 2.7 10^3/uL (0.8-4.8); Lymphocytes % 21.8 %; Mean Corpuscular HGB Conc 29.8 g/dL (30.0-36.0); Mean Corpuscular Hemoglobin 26.4 pg (28.0-34.0); Mean Corpuscular Volume 88.8 fL (81-99); Mean Platelet Volume 11.5 fL (7.4-10.4); Monocytes # 0.6 10^3/uL (0.2-0.9); Monocytes % 5.2 %; Neutrophils # 8.59 10^3/uL (1.8-7.7); Neutrophils % 69.7 %; Nucleated Red Blood Cells % 0 %; Platelet Count 252 10^3/cmm (130-400); Red Blood Count 5.07 10^6/uL (4.1-5.3); Red Cell Distribution Width 14.6 % (12.1-15.1); White Blood Count 12.3 10^3/uL (4.0-10.0)
[2020-09-19 22:05] LABS: Alanine Aminotransferase 20 U/L (0-33); Albumin Level 4.6 g/dL (3.5-5.2); Alkaline Phosphatase 69 IU/L (35-105); Anion Gap 13.8 (5-19); Aspartate Amino Transferase 14 U/L (0-32); Blood Urea Nitrogen 7 mg/dL (6-20); Calcium 9.8 mg/dL (8.5-10.5); Carbon Dioxide 26 mmol/L (22-29); Chloride 105 mmol/L (98-107); Glomerular Filtration Rate 49.3 mL/min (90-130); Glucose 129 mg/dL (65-115); Osmolality Calculated 292 mOsm/kg (285-295); Potassium 3.8 mmol/L (3.5-5.1); Sodium 141 mmol/L (136-145); Total Bilirubin 0.4 mg/dL (0.15-1.2); Total Protein 7.6 g/dL (6.6-8.7)
[2020-09-19 22:07] LABS: Troponin(5th) Baseline 6 ng/L (0-10)
[2020-09-19] MEDS: labetalol 5 mg/mL SDV 20mL 20 MG IVP (22:10)
[2020-09-19] MEDS: ondansetron 2 mg/ML SDV 2 mL 4 MG IVP (22:25)
[2020-09-19] MEDS: esmolol drip 2,500 MG/250 ML PREMIX 15.1 MG IV (22:58)
--- NOTE | 2020-09-19 23:22 | ECG_ITS ---
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
[2020-09-19] MEDS: nitroglycerin 0.4 mg sublingual Tablet SUBLINGUAL ×3 (23:33→23:59)
--- NOTE | 2020-09-19 23:42 | PC.NURSE ---
EKG done at 2340 and shown to ER doctor
[2020-09-20] VITALS (18 sets, daily range): BP systolic 90–206; BP diastolic 62–114; PULSE 72–89; RESP 14–19; TEMP 36.6–36.7; O2SAT 93–99
--- NOTE | 2020-09-20 00:06 | ED_ITS ---
HPI - Chest Pain General: Chief Complaint: Chest Pain Stated Complaint: CP/ELEVATED BP Time Seen by Provider: 09/19/20 21:45 Source: patient and family Mode of arrival: ambulatory Limitations: no limitations History of Present Illness: HPI narrative: This patient is a 40 year old female with poorly controlled hypertension and hypertensive kidney disease presents to the ED because her BP has remained significantly elevated for several days. She showed me her home BP readings and the reading have been elevated with her SBP in the 210's to 240's, and her diastolic consistently above 120. Today she developed chest pain/heaviness that is non radiating so she is here to be evaluated for this. She is on multiple antihypertensives and claims to be compliant but her BP remains elevated. complaint: chest pain and chest heaviness Onset (ago): hour(s) (7) Timing of current episode: constant Onset: during rest Pain location: left chest Pain radiation: none Severity: moderate Quality: heaviness Relieving factors: nothing Exacerbating factors: nothing Associated symptoms: Reports diaphoresis, dyspnea and nausea; Deny abdominal pain, fever(s), leg edema, palpitations, sense of impending doom, syncope or vomiting Review of Systems General: Reports: 10 or more systems reviewed and unremarkable except in HPI and below Const: Reports: diaphoresis; Denies: fever(s) Eyes: Denies: change in vision or blurry vision ENMT: Denies: throat pain, enlarged tonsils, odynophagia, hoarseness, mouth pain or swelling of lips/tongue Card: Denies: palpitations or syncope Resp: Reports: dyspnea GI: Reports: nausea; Denies: abdominal pain or vomiting : Denies: flank pain, difficulty voiding, dysuria, urinary frequency, urinary urgency or urinary hesitancy Musc: Denies: neck pain, back pain or extremity swelling Skin/Breast: Denies: rash, pruritus or erythema Neuro: Denies: headache(s), numbness in extremities or weakness in extremities Endo: Denies: polyuria, polydipsia or tired all the time [facility] PFSH: Medical History Bipolar disorder, in full remission, most recent episode depressed Chronic renal disease Generalized anxiety disorder Malignant hypertension Surgical History H/O angioplasty H/O esophagogastroduodenoscopy (08/12/20) H/O rectal polypectomy H/O total thyroidectomy History of appendectomy History of bilateral oophorectomy 2011 History of colonoscopy with polypectomy (08/12/20) History of spinal fusion 10/01/2013- C5-6, ACDFF Dr. Villanueva History of suburethral sling procedure anterior colporrhapy augmentd with porcine graft, cystoscopy performed on 03/08/[address] Haley History of total hysterectomy 2000 Hx of cholecystectomy Status post hemilaminotomy 01/06/2012, right L5-S1, disectomy and foraminotomy per Dr. Villanueva Family History Mother Diabetes Pancreatic cancer Ovarian cancer Father Diabetes Hypertension Stroke COPD (chronic obstructive pulmonary disease) Grandfather Hypertension maternal Heart disease maternal Grandmother Colon cancer maternal Social History Smoking and tobacco status: never smoked Alcohol intake: never Additional social history: well balanced diet Physical Exam Const: COMMON NORMALS: no acute distress, average body habitus, patient oriented x3, no limitations, healthy appearing, alert and well nourished HENMT: COMMON NORMALS: normocephalic, atraumatic and moist oral mucous membranes HEAD & SCALP: normocephalic and atraumatic Neck/C-Spine: COMMON NORMALS: no meningeal signs and no JVD Chest: COMMONS NORMALS: normal inspection of the chest and normal palpation of entire chest wall Resp: COMMON NORMALS: normal respiratory effort, No retractions, No use of accessory muscles, clear to auscultation bilaterally and percussion normal AUSCULTATION: clear to auscultation bilaterally PERCUSSION: percussion normal Cardio: COMMON NORMALS: no JVD, regular rate, regular rhythm, S1 normal heart sound present, S2 normal heart sound present, No gallops present (Cardio), No clicks present (Cardio), No murmurs present (Cardio), No rub (Cardio) and Peripheral pulses 2+ throughout RATE: regular rate RHYTHM: regular rhythm HEART SOUNDS: S1 normal heart sound present and S2 normal heart sound present PERIPHERAL PULSES: Peripheral pulses 2+ throughout GI: COMMON NORMALS: Normal to inspection, nondistended, normoactive bowel sounds present, Soft to palpation, non-tender, No hepatosplenomegaly present, no masses and no bruits PALPATION: Yes Soft to palpation and Yes No hepatosplenomegaly present Extremity: COMMON NORMALS: normal to inspection, full ROM, capillary refill normal, no calf tenderness and no pedal edema Neuro: COMMON NORMALS: patient oriented x3 SENSORIUM/ORIENTATION: Yes alert MENINGEAL SIGNS: Yes no meningeal signs Skin: COMMON NORMALS: no rashes or lesions noted, no wounds, turgor normal, no jaundice, no petechiae and no mottling GENERAL SKIN EXAM: no rashes or lesions noted and turgor normal Course Reevaluation(s): Reevaluation #1: Discussed her lab and imaging findings with him. Explained that she is requiring a continuous infusion of an antihypertensive to bring down her blood pressure to acceptable levels even if it is still significantly elevated. Because of this I advised that she be admitted to the hospital and she voiced understanding and is in agreement with the plan. Time: 00:25 Consultations: Consultation #1: Discussed the patient with Dr. Mahan, hospitalist and he pending accepted the patient to his service. Time: 00:30 Vital Signs: Vital signs: Vital Signs Temperature 98.2 F 09/19/20 21:22 Pulse Rate 82 09/20/20 00:19 Respiratory Rate 14 09/20/20 00:29 Blood Pressure 206/104 09/20/20 00:19 Pulse Oximetry 98 09/20/20 00:29 MDM - Chest Pain MDM Narrative: Medical decision making narrative: 40-year-old female patient with poorly controlled hypertension who presents to the emergency department in hypertensive crisis. Her blood pressures are significantly elevated requiring continuous infusion of esmolol to monitor her blood pressure. Baseline troponin and to high-sensitivity troponin both negative. Other labs unremarkable with a stable creatinine. She is admitted to the cardiac stepdown unit for further control of her blood pressure and other management. Medical Records: Attestation: I reviewed the patient's medical records. Lab Data: Attestation: I reviewed the patient's lab results. Labs: Lab Results 09/19/20 09/19/20 09/19/20 Range/Units 21:40 21:40 21:40 WBC 12.3 H (4.0-10.0) 10^3/ uL RBC 5.07 (4.1-5.3) 10^6/u L Hgb 13.4 (11.5-15.3) g/dL Hct 45.0 (37.0-47.0) % MCV 88.8 (81-99) fL MCH 26.4 L (28.0-34.0) pg MCHC 29.8 L (30.0-36.0) g/dL RDW 14.6 (12.1-15.1) % Plt Count 252 (130-400) 10^3/c mm MPV 11.5 H (7.4-10.4) fL Neut % (Auto) 69.7 % Lymph % (Auto) 21.8 % [place] % (Auto) 5.2 % Eos % (Auto) 2.2 % Baso % (Auto) 0.5 % Neut # (Auto) 8.59 H (1.8-7.7) 10^3/u L Lymph # (Auto) 2.7 (0.8-4.8) 10^3/u L [place] # (Auto) 0.6 (0.2-0.9) 10^3/u L Eos # (Auto) 0.3 (0.0-0.8) 10^3/u L Baso # (Auto) 0.1 (0.0-0.1) 10^3/u L Nucleated RBC % (a uto) 0 % Nucleated RBCs # 0.0 /100WBC Sodium 141 (136-145) mmol/L Potassium 3.8 (3.5-5.1) mmol/L Chloride 105 (98-107) mmol/L Carbon Dioxide 26 (22-29) mmol/L Anion Gap 13.8 (5-19) BUN 7 (6-20) mg/dL Creatinine 1.2 H (0.5-0.9) mg/dL GFR Calculation 49.3 L (90-130) mL/min Glucose 129 H (65-115) mg/dL Calculated Osmolal ity 292 (285-295) mOsm/k g Calcium 9.8 (8.5-10.5) mg/dL Total Bilirubin 0.4 (0.15-1.2) mg/dL AST 14 (0-32) U/L ALT 20 (0-33) U/L Alkaline Phosphata se 69 (35-105) IU/L Troponin T Baselin e 6 (0-10) ng/L Troponin T 120 Min [place] (0-10) ng/L Delta Troponin T (0-10) ABS# Total Protein 7.6 (6.6-8.7) g/dL Albumin 4.6 (3.5-5.2) g/dL Globulin 3.0 (1.3-4.6) g/dL 09/19/20 Range/Units 23:48 WBC (4.0-10.0) 10^3/ uL RBC (4.1-5.3) 10^6/u L Hgb (11.5-15.3) g/dL Hct (37.0-47.0) % MCV (81-99) fL MCH (28.0-34.0) pg MCHC (30.0-36.0) g/dL RDW (12.1-15.1) % Plt Count (130-400) 10^3/c mm MPV (7.4-10.4) fL Neut % (Auto) % Lymph % (Auto) % [place] % (Auto) % Eos % (Auto) % Baso % (Auto) % Neut # (Auto) (1.8-7.7) 10^3/u L Lymph # (Auto) (0.8-4.8) 10^3/u L [place] # (Auto) (0.2-0.9) 10^3/u L Eos # (Auto) (0.0-0.8) 10^3/u L Baso # (Auto) (0.0-0.1) 10^3/u L Nucleated RBC % (a uto) % Nucleated RBCs # /100WBC Sodium (136-145) mmol/L Potassium (3.5-5.1) mmol/L Chloride (98-107) mmol/L Carbon Dioxide (22-29) mmol/L Anion Gap (5-19) BUN (6-20) mg/dL Creatinine (0.5-0.9) mg/dL GFR Calculation (90-130) mL/min Glucose (65-115) mg/dL Calculated Osmolal ity (285-295) mOsm/k g Calcium (8.5-10.5) mg/dL Total Bilirubin (0.15-1.2) mg/dL AST (0-32) U/L ALT (0-33) U/L Alkaline Phosphata se (35-105) IU/L Troponin T Baselin e (0-10) ng/L Troponin T 120 Min [place] 6.81 (0-10) ng/L Delta Troponin T 0.81 (0-10) ABS# Total Protein (6.6-8.7) g/dL Albumin (3.5-5.2) g/dL Globulin (1.3-4.6) g/dL Imaging Data^: CXR: Attestation: I personally reviewed and interpreted this imaging study as follows: Radiologist's impression: [employer] [address] XRay Report Signed Patient: Nina Garcia #: [id number] : 1980Acct#:[id number] Age/Sex: 40 / FADM Date: 09/19/20 Loc: ERRoom/Bed: Attending Dr: Ordering Provider/Ordering MD: James Mohan MD Date of Service: 09/19/20 Procedure(s): XR chest 1V portable [id number] Accession Number(s): [id number] Report Number: [id number] PROCEDURE INFORMATION: Exam: XR Chest, 1 View Exam date and time: 09/19/2020 9:40 PM Age: 40 years old Clinical indication: Chest pain; Type not specified; Additional info: Cp TECHNIQUE: Imaging protocol: XR of the chest Views: 1 view. COMPARISON: CR XR chest 1V portable [id number] 07/03/2020 8:29 PM FINDINGS: Lungs: No CHF/pulmonary edema. Visible lungs appear essentially clear. Pleural space: No visible pneumothorax. No definite pleural fluid. Heart/Mediastinum: Heart size is within normal limits. Bones/joints: No significant acute finding. XR/XR chest 1V portable [id number] IMPRESSION: 1. Essentially unremarkable single view chest. 2. No significant interval change. 3. Other details discussed above. Dictated By:Genaro Ryan MD Signed By:Genaro Ryan MDSigned Date/Time:09/19/202227 DD/ 2226 EKG Data^: EKG 1: Attestation: I personally reviewed and interpreted this EKG as follows: EKG interpretation date: 09/19/20 EKG interpretation time: 21:31 Prior EKG tracings: available for review Interpretation: sinus tachycardia HR [address] changes EKG 2: Attestation: I personally reviewed and interpreted this EKG as follows: EKG interpretation date: 09/19/20 EKG interpretation time: 23:39 Prior EKG tracings: available for review Interpretation: sinus rhythm HR [address] changes Normal axis Critical Care Time Critical Care Time: Critical Care Time: Yes Total Critical Care Time: 90 Attestation: This case had a high probability of a clinically significant, sudden, or life threatening deterioration of this patient's condition which required my full and direct attention, intervention and personal management. Patient with a hypertensive emergency requiring intravenous antihypertensives and continuous infusion of antihypertensive. Discharge Plan Discharge Patient Disposition: Admitted As Inpatient Admit Provider: Danilo Mahan Condition: Stable Prescriptions: No Action sucralfate [Carafate] 1 gram tablet 1 g PO Q6H 28 Days Qty: 112 RF: 0 pantoprazole 40 mg tablet,delayed release (DR/EC) 40 mg PO BIDWMEAL Qty: 60 RF: 0 ropinirole [Requip] 0.25 mg tablet 0.25 mg PO TID@0800,1200,2000 RF: 0 hydromorphone 4 mg tablet 4 mg PO QID@08,12,14,20 RF: 0 hydrocodone-acetaminophen 10-325 mg tablet 1 tab PO Q6H PRN (Reason: Pain) RF: 0 Probiotic Acidophilus 1.5 mg (250 million cell) capsule 1.5 mg PO DAILY@0800 RF: 0 tizanidine 4 mg capsule 4 mg PO QID@08,12,16,20 RF: 0 levothyroxine 112 mcg capsule 125 mcg PO DAILY@0500 RF: 0 lithium carbonate 150 mg capsule 150 mg PO QAM Qty: 30 RF: 5 lorazepam [Ativan] 2 mg tablet See Rx Instructions PO .COMPLEX Qty: 60 RF: 5 lithium carbonate 300 mg tablet See Rx Instructions PO .COMPLEX Qty: 90 RF: 5 carvedilol [Coreg] 25 mg tablet 25 mg PO BID@0800,2000 RF: 0 promethazine 25 mg tablet 25 mg PO TID PRN (Reason: nausea and vomiting) Qty: 30 RF: 0 multivitamin Tablet 1 tab PO DAILY@0800 RF: 0 ondansetron 4 mg Tablet,Disintegrating 4 mg PO Q12H PRN (Reason: nausea/vomiting) RF: 0 Lamictal 200 mg tablet 200 mg PO DAILY@0800 RF: 0 isosorbide mononitrate 30 mg tablet extended release 24 hr 30 mg PO DAILY@0800 RF: 0 clonidine HCl 0.3 mg tablet 0.3 mg PO TID@0800,1199,1999 RF: 0 spironolactone 25 mg tablet 25 mg PO BID@08,1999 RF: 0 losartan-hydrochlorothiazide 100-25 mg tablet 1.5 tab PO DAILY@0800 RF: 0 amlodipine 10 mg tablet 10 mg PO DAILY@0800 RF: 0 furosemide 20 mg tablet 20 mg PO DAILY@0800 RF: 0 topiramate 100 mg tablet 100 mg PO DAILY@0800 RF: 0 Questran 4 gram powder 4 g PO TID@0800,1199,1999 RF: 0 Latuda 20 mg tablet 20 mg PO BEDTIME@2200 RF: 0 Referrals: Michelle Rico, [facility] [Primary Care Provider] - Coding Level of Care Code ED Steel Floor Pan Placing Supervisor for Chg Fwd Exam Comprehensive
[2020-09-20 00:15] LABS: Troponin 5 2HR 6.81 ng/L (0-10); Troponin 5 2HR Delta 0.81 ABS# (0-10)
--- NOTE | 2020-09-20 00:20 | PC.NURSE ---
patient c/o headache and nausea, asking for medications, advised Dr. leija, awaiting orders
--- NOTE | 2020-09-20 00:25 | PM.HP ---
Providers/Chief Complaint Primary Care Provider: Michelle Rico Chief Complaint: CP/ELEVATED BP History of Present Illness Nina Garcia is a 40 year old female who presented to the hospital with chief complaint of chest discomfort. Patient is stating that she has history of malignant hypertension for which she follows up with Dr. Evangelista she has been taking 5-6 antihypertensive agents at home, has never been diagnosed with renal artery stenosis Alyssa syndrome. Patient is stating that in last 24 hours her blood pressure has been running high at home in 220smmhg, she did not miss her clonidine dose, she is compliant with her medications, her main concern was chest discomfort which she started experiencing substernally, it was radiating towards her shoulder blades and umbilical area, she did not notice any fever, nausea, vomiting, diarrhea diaphoresis, she is endorsing radiation of this pain towards her left arm. Diagnostics in the ER revealed hypertensive emergency, was started on esmolol drip, on arrival her blood pressure was 2 2 2/124 mmHg and then after IV labetalol 192/142 mmHg, esmolol drip was started at the time my evaluation it was running at 75mcg. Her creatinine seems to be around baseline, I requested TSH which came back really high 10.1, requested CTA chest abdomen pelvis to rule out aortic dissection however chest x-ray unremarkable, troponin not significantly high, EKG revealed sinus rhythm but second EKG was consistent with sinus tachycardia heart rate 130, at the time my evaluation patient was chest pain-free Review of Systems Const: Denies: fever(s) or chills Eyes: Denies: change in vision ENMT: Denies: throat pain Card: Reports: chest pain, palpitations and dyspnea on exertion; Denies: swelling of feet/ankles, pre-syncope or orthopnea Resp: Reports: dyspnea and non-productive cough GI: Denies: abdominal pain : Denies: flank pain Musc: Denies: neck pain Skin/Breast: Denies: rash Neuro: Denies: headache(s) Psych: Denies: anxiety Endo: Denies: polyuria Fahad/Lymph: Denies: enlarged lymph nodes All/Imm: Denies: urticaria Medications/Allergies Home Medications Medication Instructions Recorded Confirmed Last Taken Type Lactobacillus acidophilus 1.5 mg 1.5 mg PO DAILY@0800 cap 08/30/19 09/19/20 09/19/20 History (250 million cell) capsule hydrocodone 10 mg-acetaminophen 1 tab PO Q6H PRN 08/30/19 09/19/20 09/19/20 History 325 mg tablet hydromorphone 4 mg tablet 4 mg PO QID@08,12,14,20 tab 08/30/19 09/19/20 09/19/20 History ropinirole 0.25 mg tablet 0.25 mg PO TID@0800,1200,199908/30/19 09/19/20 09/19/20 History tizanidine 4 mg capsule 4 mg PO QID@08,12,16,20 cap 08/30/19 09/19/20 09/19/20 History levothyroxine 112 mcg capsule 125 mcg PO DAILY@0500 cap 05/26/20 09/19/20 09/19/20 History promethazine 25 mg PO TID PRN #30 tab 07/03/20 09/19/20 09/19/20 Rx carvedilol 25 mg tablet 25 mg PO BID@0800,199909/03/20 09/19/20 09/19/20 History lithium carbonate 150 mg capsule 150 mg PO QAM #30 cap 09/04/20 09/19/20 09/19/20 Rx lithium carbonate 300 mg tablet See Rx Instructions PO .COMPLEX 09/04/20 09/19/20 09/19/20 Rx #90 tab lorazepam 2 mg tablet See Rx Instructions PO .COMPLEX 09/04/20 09/19/20 09/19/20 Rx #60 tab pantoprazole 40 mg tablet,delayed 40 mg PO BIDWMEAL #60 tab 09/12/20 09/19/20 09/19/20 Rx release sucralfate 1 gram tablet 1 g PO Q6H 28 Days #112 tab 09/12/20 09/19/20 09/19/20 Rx Lamictal 200 mg PO DAILY@0800 09/19/20 09/19/20 09/19/20 History amlodipine 10 mg PO DAILY@0800 09/19/20 09/19/20 09/19/20 History cholestyramine (with sugar) 4 g PO TID@0800,1200,199909/19/20 09/19/20 09/19/20 History [Questran] clonidine HCl 0.3 mg PO TID@0800,1200,199909/19/20 09/19/20 09/19/20 History furosemide 20 mg PO DAILY@0800 09/19/20 09/19/20 09/19/20 History isosorbide mononitrate 30 mg PO DAILY@0800 09/19/20 09/19/20 09/19/20 History losartan-hydrochlorothiazide 1.5 tab PO DAILY@0800 09/19/20 09/19/20 09/19/20 History lurasidone [Latuda] 20 mg PO BEDTIME@2200 09/19/20 09/19/20 09/18/20 History multivitamin 1 tab PO DAILY@0800 09/19/20 09/19/20 09/19/20 History ondansetron 4 mg PO Q12H PRN 09/19/20 09/19/20 09/19/20 History spironolactone 25 mg PO BID@0800,199909/19/20 09/19/20 09/19/20 History topiramate 100 mg PO DAILY@0800 09/19/20 09/19/20 09/19/20 History Allergies Allergy/AdvReac Type Severity Reaction Status Date / Time aspirin Allergy due to BUN Verified 09/12/20 11:29 levels coconut Allergy hives Verified 09/12/20 11:29 ketorolac [From Toradol] Allergy hives Verified 09/12/20 11:29 meloxicam [From Mobic] Allergy hives Verified 09/12/20 11:29 NSAIDS (Non-Steroidal Allergy Unknown Verified 09/12/20 11:29 Anti-Inflamma PFSH Acute PFSH: Medical History Bipolar disorder, in full remission, most recent episode depressed Chronic renal disease Generalized anxiety disorder Malignant hypertension Surgical History H/O angioplasty H/O esophagogastroduodenoscopy (08/12/20) H/O rectal polypectomy H/O total thyroidectomy History of appendectomy History of bilateral oophorectomy 2011 History of colonoscopy with polypectomy (08/12/20) History of spinal fusion 10/01/2013- C5-6, ACDFF Dr. Villanueva History of suburethral sling procedure anterior colporrhapy augmentd with porcine graft, cystoscopy performed on 03/08/[address] Haley History of total hysterectomy 2000 Hx of cholecystectomy Status post hemilaminotomy 01/06/2012, right L5-S1, disectomy and foraminotomy per Dr. Villanueva Family History Mother Diabetes Pancreatic cancer Ovarian cancer Father Diabetes Hypertension Stroke COPD (chronic obstructive pulmonary disease) Grandfather Hypertension maternal Heart disease maternal Grandmother Colon cancer maternal Social History Smoking and tobacco status: never smoked Alcohol intake: never Additional social history: well balanced diet Vitals/I&O/Wt Last Vital Signs Temp 98.2 F 09/19/20 21:22 Pulse 82 09/20/20 00:19 Resp 16 09/20/20 00:19 BP 206/104 09/20/20 00:19 Pulse Ox 98 09/20/20 00:19 09/19/20 09/19/20 09/20/20 14:59 22:59 06:59 Intake Total 25.670 / 25.670 Balance 25.670 / 25.670 Weight last 48 hrs Weight 100.698 kg Physical Exam Narrative: EXAM NARRATIVE: Young female Chest pain-free at the time my evaluation no radial radial delay was noted S1, S2 sinus rhythm heart rate 80 blood pressure 164/108 mmHg No acute respiratory distress Abdomen soft nontender bowel sound present No sign of cushingoid syndrome No signs of thyrotoxicosis No extremity no edema gangrene ulcer No acute respite distress saturating well on room air Awake alert oriented x3 GCS 15 No visual pulsation noticed on abdominal physical exam Bilateral breath sounds without adventitious rhonchi or crackles Appropriate mood and affect No joint swelling or skin edema Data : 09/19/20 21:40 09/19/20 21:40 A&P Assessment and plan (1) Malignant hypertension: Status: Acute (2) Chronic renal disease: Status: Acute (3) Resistant hypertension: Status: Acute (4) Abnormal TSH: Status: Acute Additional A&P Information Hypertensive emergency Patient complaining of chest discomfort radiating towards her left arm shoulder blades and periumbilical region, rule out aortic dissection would request CTA chest abdomen pelvis, troponin not significantly high, EKG showing sinus rhythm heart rate 80 Currently on esmolol drip at 75 mics BNP 80 No active signs of pulmonary edema Will admit to cardiac stepdown unit She has hypokalemia however she has been taking hydrochlorothiazide and Lasix along clonidine labetalol and amlodipine, I am going to continue her antihypertensive agents except for Lasix, she would qualify for persistent hypertension for which I would request renal ultrasound with Doppler to rule out renal artery stenosis, aldosterone, renin ratio, TSH and cortisol level Chronic kidney disease without acute decompensation Her creatinine seems to be around baseline 1.2 Abnormal TSH, 10.1, will request free T4 level Patient takes levothyroxine after thyroidectomy Would adjust her dose after hypertensive emergency episode has resolved Full code Cardiac diet DVT prophylaxis Lovenox Attestations Medical Necessity Statement*: Anticipating stay in the hospital cross more than 2 midnights currently need extensive antihypertensive regimen calibration to prevent blood pressure fluctuation and endorgan damage currently she is requiring IV esmolol for blood pressure control, rule out aortic dissection Time Spent in Patient Care: (>than 50% of time spent in counselling and/or direct pt care on unit). 50mins Coding Level of Care Code Acute [employer] Diagnoses Malignant hypertension I10 Chronic renal disease N18.9 Resistant hypertension I10 Abnormal TSH R79.89
[2020-09-20] MEDS: metoclopramide 5 mg/mL SDV 2 mL 10 MG IVP (00:26)
[2020-09-20] MEDS: HYDROmorphone 1 mg/mL INJ 1 mL IVP (00:29)
--- NOTE | 2020-09-20 01:19 | CTR_ITS ---
PROCEDURE INFORMATION: Exam: CT Angiography Chest With Contrast Exam date and time: 09/20/2020 2:21 AM Age: 40 years old Clinical indication: Chest pain; Abdominal pain; Prior surgery; Surgery type: Cervical fusion. Gb. Hysterectomy. Thyroidectomy. Angioplasty. ; Patient HX: Hypertensive 200+/100+ with chest and back pain. ; Additional info: Hypertensive emergency, back pain, chest pain TECHNIQUE: Imaging protocol: Computed tomographic angiography of the chest with intravenous contrast. 3D rendering (Not supervised by radiologist): MIP and/or 3D reconstructed images were created by the technologist. Radiation optimization: All CT scans at this facility use at least one of these dose optimization techniques: automated exposure control; mA and/or kV adjustment per patient size (includes targeted exams where dose is matched to clinical indication); or iterative reconstruction. Contrast material: VISI 320; Contrast volume: 95 ml; Contrast route: INTRAVENOUS (IV); COMPARISON: CT abdomen pelvis wo con [id number] 07/03/2020 6:09 PM RADIATION DOSE METRICS: Total DLP (mGy-cm): 2646.51 FINDINGS: Pulmonary arteries: Normal. No pulmonary emboli. Aorta: Unremarkable. No aortic aneurysm. No aortic dissection. Lungs: Unremarkable. No consolidation. No masses. Pleural space: Unremarkable. No pneumothorax. No pleural effusion. Heart: Unremarkable. No cardiomegaly. No pericardial effusion. Lymph nodes: Unremarkable. No enlarged lymph nodes. Bones/joints: Unremarkable. No acute fracture. Soft tissues: Unremarkable. IMPRESSION: No acute findings. PROCEDURE INFORMATION: Exam: CT Angiography Abdomen and Pelvis With Contrast Exam date and time: 09/20/2020 2:21 AM Age: 40 years old Clinical indication: Chest pain; Abdominal pain; Prior surgery; Surgery type: Cervical fusion. Gb. Hysterectomy. Thyroidectomy. Angioplasty. ; Patient HX: Hypertensive 200+/100+ with chest and back pain. ; Additional info: Hypertensive emergency, back pain, chest pain TECHNIQUE: Imaging protocol: Computed tomographic angiography of the abdomen and pelvis with intravenous contrast material. 3D rendering (Not supervised by radiologist): MIP and/or 3D reconstructed images were created by the technologist. Radiation optimization: All CT scans at this facility use at least one of these dose optimization techniques: automated exposure control; mA and/or kV adjustment per patient size (includes targeted exams where dose is matched to clinical indication); or iterative reconstruction. Contrast material: VISI 320; Contrast volume: 95 ml; Contrast route: INTRAVENOUS (IV); COMPARISON: CT abdomen pelvis con [id number] 07/03/2020 6:09 PM RADIATION DOSE METRICS: Total DLP (mGy-cm): 2646.51 FINDINGS: Aorta: No aortic aneurysm. No aortic dissection. Celiac trunk and mesenteric arteries: No occlusion or significant stenosis. Renal arteries: No occlusion or significant stenosis. Right iliac arteries: No occlusion or significant stenosis. Left iliac arteries: No occlusion or significant stenosis. Liver: There is hypoattenuation of the hepatic parenchyma compatible with fatty infiltration. Gallbladder and bile ducts: Status post cholecystectomy. Pancreas: Unremarkable. No mass. No ductal dilation. Spleen: Unremarkable. No splenomegaly. Adrenal glands: Unremarkable. No mass. Kidneys and ureters: Unremarkable. No solid mass. No hydronephrosis. Stomach and bowel: Unremarkable. No obstruction. No mucosal thickening. Appendix: Status post appendectomy. Intraperitoneal space: Unremarkable. No free air. No significant fluid collection. Lymph nodes: Unremarkable. No enlarged lymph nodes. Urinary bladder: Unremarkable. No mass. Reproductive: Status post hysterectomy. Bones/joints: No acute fracture. No dislocation. Soft tissues: Unremarkable. CT/CT angio chest abdomen pelvis IMPRESSION: 1. There is no evidence for aneurysmal dilatation, occlusion, dissection or extravasation of the visualized arteries of the abdomen and pelvis. 2. Fatty infiltration of the liver Radiation Dose CTDIVOL = (mGy): DLP = 2646.51~2646.51 (mGy-cm)
--- NOTE | 2020-09-20 01:31 | USR_ITS ---
PROCEDURE INFORMATION: Exam: US Duplex Artery and Vein of the Abdominal and/or Reproductive Organs, Complete Kidneys Exam date and time: 09/20/2020 6:23 AM Age: 40 years old Clinical indication: Condition or disease; Other: Hypertensive emergency TECHNIQUE: Imaging protocol: Real-time duplex ultrasound scan of the arterial and venous flow with color Doppler flow and spectral waveform analysis with image documentation. Complete duplex exam focused on the kidneys. Duplex images required to evaluate vascular conditions. COMPARISON: No relevant prior studies available. FINDINGS: Right kidney: Normal. No hydronephrosis. No masses. Right renal artery: Visualization of the proximal right renal artery is limited due to overlying bowel gas but the visualized portions of the artery are normal. Duplex waveforms are within normal limits. No hemodynamically significant stenosis. Right interlobar/arcuate arteries: Resistive indices are normal Right renal vein: Patent Left kidney: Normal. No hydronephrosis. No masses. Left renal artery: Normal duplex of the renal artery. Duplex waveforms are within normal limits. No hemodynamically significant stenosis. Left interlobar/arcuate arteries: Resistive indices are normal Left renal vein: Patent US/CV renal doppler [id number] IMPRESSION: Normal kidneys. No hemodynamically significant stenosis.
--- NOTE | 2020-09-20 01:52 | PC.NURSE ---
PT ARRIVED TO ROOM 107. PT DENIES ANY CHEST PAIN. PT IS ON AN ESMOLOL GTT @ 45.3ML/HR. BP IS 155/109, HR 83, RR 14. PT ORIENTATED TO ROOM. WILL CONTINUE TO MONITOR.
[2020-09-20] MEDS: iodixanol 320 mg/mL 100mL Btl IV (02:22)
[2020-09-20 02:33] LABS: NT Pro B Type Natriuretic Pept 80 pg/mL (0-125); Thyroid Stimulating Hormone 10.15 uIU/mL (0.27-4.20)
[2020-09-20 04:14] LABS: Anion Gap 11.7 (5-19); Blood Urea Nitrogen 7 mg/dL (6-20); Calcium 9.4 mg/dL (8.5-10.5); Carbon Dioxide 27 mmol/L (22-29); Chloride 102 mmol/L (98-107); Glomerular Filtration Rate 49.3 mL/min (90-130); Glucose 126 mg/dL (65-115); Osmolality Calculated 284 mOsm/kg (285-295); Potassium 3.7 mmol/L (3.5-5.1); Sodium 137 mmol/L (136-145)
[2020-09-20 04:20] LABS: Troponin 5 6HR Delta 0 ng/L (0-12)
[2020-09-20] MEDS: esmolol drip 2,500 MG/250 ML PREMIX 60.4 MG IV (04:56)
--- NOTE | 2020-09-20 05:20 | PC.NURSE ---
Patient is stable and asymptomatic of BP issue. Esmolol drip titrated to 100mcg/kg/min after speaking with provider about continued BP with diastolic pressures maintaining above 110. Discussed with housecleaner floor as well. Will continue to monitor and assess patient and follow CPOC.
[2020-09-20] MEDS: levothyroxine 125 mcg Tablet PO (06:28)
--- NOTE | 2020-09-20 07:50 | PC.NURSE ---
patient still flexing on BP from 140/95 to 180/131 titrated drip up to 125 mcg/kg/min and passed information on to oncoming RN in report Yareli. Will continue to monitor and titrate as needed. NO ICU beds available at this time for transfer.
[2020-09-20] MEDS: esmolol drip 2,500 MG/250 ML PREMIX 90.6 MG IV (08:27)
[2020-09-20] MEDS: ondansetron 2 mg/ML SDV 2 mL 4 MG IVP (08:28)
[2020-09-20 08:46] LABS: Cortisol Random 12.55 ug/dL (2.47-19.5)
--- NOTE | 2020-09-20 09:06 | PC.NURSE ---
patient vomitted her clonidine and hctz. pills witness in emesis. will waste in the pyxis and reattempt to administer medications.
--- NOTE | 2020-09-20 09:10 | PC.NURSE ---
Gave patient clonidine, imdur, and amlodipine, but patient immediately vomitted pills. Pills noted in emesis basin. Notified primary nurse Yareli Franklin. Pills wasted and remaining pills held.
[2020-09-20] MEDS: amlodipine 10 mg Tablet PO (09:35)
[2020-09-20] MEDS: cloNIDine 0.1 mg Tablet 0.3 MG PO ×3 (09:36→20:43)
[2020-09-20] MEDS: hydroCHLOROthiazide 25 mg Tablet 37.5 MG PO (09:37)
[2020-09-20] MEDS: isosorbide mononitrate ER 30 mg Tablet PO (09:38)
[2020-09-20] MEDS: spironolactone 25 mg Tablet PO ×2 (09:39→20:40)
[2020-09-20] MEDS: lamoTRIgine 100 mg Tablet 200 MG PO (09:40)
[2020-09-20] MEDS: losartan 50 mg Tablet 150 MG PO (09:40)
[2020-09-20] MEDS: ropinirole 0.25 mg Tablet PO ×3 (09:41→20:40)
[2020-09-20] MEDS: topiramate 100 mg Tablet PO (09:41)
[2020-09-20] MEDS: pantoprazole DR 40 mg Tablet PO ×2 (09:41→17:43)
[2020-09-20] MEDS: LORazepam 2 mg/mL INJ 1 mL 1 MG IVP (09:53)
[2020-09-20 10:01] LABS: Amphetamines Screen Urine Negative (Negative); Barbiturates Screen Urine Negative (Negative); Benzodiazepines Screen Urine Positive (Negative); Cocaine Screen Urine Negative (Negative); Opiate Screen Urine Positive (Negative); PCP Screen Urine Negative (Negative); THC Screen Urine Negative (Negative)
[2020-09-20] MEDS: promethazine 25 mg/mL SDV 1 mL IM (10:15)
--- NOTE | 2020-09-20 11:18 | PC.NURSE ---
PLEASE HOLD PO DOSE OF ATIVAN DUE TO ADMINISTRATION OF IV DOSE PER DR. GUZMAN.
[2020-09-20] MEDS: esmolol drip 2,500 MG/250 ML PREMIX 75.5 MG IV (11:30)
--- NOTE | 2020-09-20 14:20 | PM.PN ---
Subjective Subjective: Interval history: The patient is still on esmolol drip. Reports nausea and vomiting. Was unable to take her morning medications. Denies chest pain or palpitations. No fevers or chills. No dysuria. No abdominal pain. Reports chronic back pain for which she takes Dilaudid 5 times a day and [place]. Medications: Reviewed: Yes Medication Review Details: Generic Name Dose Route Start Last Admin Trade Name Jennifer PRN Reason Stop Dose Admin Amlodipine Besylat e 10 mg 09/20/20 08:00 09/20/20 09:35 Amlodipine 10 Mg Tablet PO 10 mg DAILY@0800 ZARINA Administration Clonidine HCl 0.3 mg 09/20/20 09:00 09/20/20 09:36 Clonidine 0.1 Mg Tablet PO 0.3 mg TID ZARINA Administration Hydrochlorothiazid e 37.5 mg 09/20/20 08:00 09/20/20 09:37 Hydrochlorothiaz carla 25 Mg Tablet PO 37.5 mg DAILY@0800 ZARINA Administration Esmolol HCl 2,500 mg in 250 m ls @ 0 mls/hr 09/19/20 22:45 09/20/20 13:03 Brevibloc Drip IV 75 mcg/kg/min .Q0M ZARINA 45.3 mls/hr Titration Protocol Per Protocol Isosorbide Mononit rate 30 mg 09/20/20 08:00 09/20/20 09:38 Isosorbide [place] itrate Er 30 Mg Ta blet PO 30 mg DAILY@0800 ZARINA Administration Lamotrigine 200 mg 09/20/20 08:00 09/20/20 09:40 Lamotrigine 100 Mg Tablet PO 200 mg DAILY@0800 [facility] Administration Levothyroxine Sodi um 125 mcg 09/20/20 05:00 09/20/20 06:28 Levothyroxine 12 5 Mcg Tablet PO 125 mcg DAILY@0500 [facility] Administration Lorazepam 1 mg 09/20/20 12:00 09/20/20 11:17 Lorazepam 2 Mg T ablet PO Not Given 0600,1200 [facility] Losartan Potassium 150 mg 09/20/20 08:00 09/20/20 09:40 Losartan 50 Mg T ablet PO 150 mg DAILY@0800 ZARINA Administration Nitroglycerin 0.4 mg 09/19/20 23:29 09/19/20 23:59 Nitroglycerin 0. 4 Mg Sublingual Ta blet SUBLINGUAL 0.4 mg Q5M PRN Administration CHEST PAIN Ondansetron HCl 4 mg 09/20/20 07:55 09/20/20 08:28 Ondansetron 2 Mg /Ml Sdv 2 Ml IVP 4 mg Q6H PRN Administration NAUSEA AND VOMITI NG Pantoprazole Sodiu m 40 mg 09/20/20 08:00 09/20/20 09:[address] 40 Mg Tablet PO 40 mg BIDWM ZARINA Administration Promethazine HCl 25 mg 09/20/20 09:38 09/20/20 10:15 Promethazine 25 Mg/Ml Sdv 1 Ml IM 25 mg Q6H PRN Administration NAUSEA Ropinirole HCl 0.25 mg 09/20/20 08:00 09/20/20 11:30 Ropinirole 0.25 Mg Tablet PO 0.25 mg TID@0800,1200,200 0 ZARINA Administration Spironolactone 25 mg 09/20/20 08:00 09/20/20 09:39 Spironolactone 2 5 Mg Tablet PO 25 mg BID@0800,2000 ZARINA Administration Topiramate 100 mg 09/20/20 08:00 09/20/20 09:41 Topiramate 100 M g Tablet PO 100 mg DAILY@0800 ZARINA Administration Vitals/I&O/Wt Last Vital Signs Temp 98.0 F 09/20/20 10:39 Pulse 72 09/20/20 10:39 Resp 16 09/20/20 10:39 BP 151/92 09/20/20 10:39 Pulse Ox 96 09/20/20 10:39 09/19/20 09/20/20 09/20/20 22:59 06:59 14:59 Intake Total 341.607 / 139.522 1364.820 / 1124.820 Balance 341.607 / 486.612 8762.820 / 1124.820 Weight last 48 hrs Weight 100.698 kg Physical Exam Narrative: EXAM NARRATIVE: Awake alert oriented. No acute distress. Mood and affect are appropriate. Responses are adequate. Skin warm and dry. Moist mucous brains. Neck supple. No JVD Lungs clear. No respiratory distress Heart S1, S2, regular Abdomen soft, nontender, bowel sounds are present Extremities no edema cyanosis or calf tenderness bilaterally Neuro exam is nonfocal. Data : 09/19/20 21:40 09/20/20 03:40 Other Labs: Laboratory Results WBC 12.3 10^3/uL (4.0-10.0) H 09/19/20 21:40 RBC 5.07 10^6/uL (4.1-5.3) 09/19/20 21:40 Hgb 13.4 g/dL (11.5-15.3) 09/19/20 21:40 Hct 45.0 % (37.0-47.0) 09/19/20 21:40 MCV 88.8 fL (81-99) 09/19/20 21:40 MCH 26.4 pg (28.0-34.0) L 09/19/20 21:40 MCHC 29.8 g/dL (30.0-36.0) L 09/19/20 21:40 RDW 14.6 % (12.1-15.1) 09/19/20 21:40 Plt Count 252 10^3/cmm (130-400) 09/19/20 21:40 MPV 11.5 fL (7.4-10.4) H 09/19/20 21:40 Neut % (Auto) 69.7 % 09/19/20 21:40 Lymph % (Auto) 21.8 % 09/19/20 21:40 [place] % (Auto) 5.2 % 09/19/20 21:40 Eos % (Auto) 2.2 % 09/19/20 21:40 Baso % (Auto) 0.5 % 09/19/20 21:40 Neut # (Auto) 8.59 10^3/uL (1.8-7.7) H 09/19/20 21:40 Lymph # (Auto) 2.7 10^3/uL (0.8-4.8) 09/19/20 21:40 [place] # (Auto) 0.6 10^3/uL (0.2-0.9) 09/19/20 21:40 Eos # (Auto) 0.3 10^3/uL (0.0-0.8) 09/19/20 21:40 Baso # (Auto) 0.1 10^3/uL (0.0-0.1) 09/19/20 21:40 Nucleated RBC % (auto) 0 % 09/19/20 21:40 Nucleated RBCs # 0.0 /100WBC 09/19/20 21:40 Sodium 137 mmol/L (136-145) 09/20/20 03:40 Potassium 3.7 mmol/L (3.5-5.1) 09/20/20 03:40 Chloride 102 mmol/L (98-107) 09/20/20 03:40 Carbon Dioxide 27 mmol/L (22-29) 09/20/20 03:40 Anion Gap 11.7 (5-19) 09/20/20 03:40 BUN 7 mg/dL (6-20) 09/20/20 03:40 Creatinine 1.2 mg/dL (0.5-0.9) H 09/20/20 03:40 GFR Calculation 49.3 mL/min (90-130) L 09/20/20 03:40 Glucose 126 mg/dL (65-115) H 09/20/20 03:40 Calculated Osmolality 284 mOsm/kg (285-295) L 09/20/20 03:40 Calcium 9.4 mg/dL (8.5-10.5) 09/20/20 03:40 Total Bilirubin 0.4 mg/dL (0.15-1.2) 09/19/20 21:40 AST 14 U/L (0-32) 09/19/20 21:40 ALT 20 U/L (0-33) 09/19/20 21:40 Alkaline Phosphatase 69 IU/L (35-105) 09/19/20 21:40 Troponin T Baseline 6 ng/L (0-10) 09/19/20 21:40 Troponin T 120 Minute 6.81 ng/L (0-10) 09/19/20 23:48 Delta Troponin T 0.81 ABS# (0-10) 09/19/20 23:48 Troponin T Hi Sens 6Hr 6.00 ng/L (0-10) 09/20/20 03:40 Troponin T Hi Sens 6Hr Delta 0 ng/L (0-12) 09/20/20 03:40 NT-Pro-B Natriuret Pep 80 pg/mL (0-125) 09/19/20 21:40 Total Protein 7.6 g/dL (6.6-8.7) 09/19/20 21:40 Albumin 4.6 g/dL (3.5-5.2) 09/19/20 21:40 Globulin 3.0 g/dL (1.3-4.6) 09/19/20 21:40 TSH 10.15 uIU/mL (0.27-4.20) H 09/19/20 21:40 Random Cortisol 12.55 ug/dL (2.47-19.5) 09/20/20 07:59 Urine Opiates Screen Positive ng/mL (Negative) H 09/20/20 09:34 Ur Barbiturates Screen Negative ng/mL (Negative) 09/20/20 09:34 Ur Phencyclidine Scrn Negative ng/mL (Negative) 09/20/20 09:34 Ur Amphetamines Screen Negative ng/mL (Negative) 09/20/20 09:34 U Benzodiazepines Scrn Positive ng/mL (Negative) H 09/20/20 09:34 Urine Cocaine Screen Negative ng/mL (Negative) 09/20/20 09:34 U Marijuana (THC) Screen Negative ng/mL (Negative) 09/20/20 09:34 Impressions Chest X-Ray 09/19/20 21:22 IMPRESSION: 1. Essentially unremarkable single view chest. 2. No significant interval change. 3. Other details discussed above. Chest/Abdomen/Pelvis CTA 09/20/20 01:19 IMPRESSION: 1. There is no evidence for aneurysmal dilatation, occlusion, dissection or extravasation of the visualized arteries of the abdomen and pelvis. 2. Fatty infiltration of the liver Radiation Dose CTDIVOL = (mGy): DLP = 2646.51~2646.51 (mGy-cm) Renal Ultrasound 09/20/20 01:31 IMPRESSION: Normal kidneys. No hemodynamically significant stenosis. A&P Assessment and plan (1) Malignant hypertension: Status: Acute (2) Chronic renal disease: Status: Acute (3) Resistant hypertension: Status: Acute (4) Abnormal TSH: Status: Acute Additional A&P Information Hypertensive emergency Patient complaining of chest discomfort radiating towards her left arm shoulder blades and periumbilical region, rule out aortic dissection would request CTA chest abdomen pelvis, troponin not significantly high, EKG showing sinus rhythm heart rate 80 Currently on esmolol drip at 75 mics BNP 80 No active signs of pulmonary edema Will admit to cardiac stepdown unit She has hypokalemia however she has been taking hydrochlorothiazide and Lasix along clonidine labetalol and amlodipine, I am going to continue her antihypertensive agents except for Lasix, she would qualify for persistent hypertension for which I would request renal ultrasound with Doppler to rule out renal artery stenosis, aldosterone, renin ratio, TSH and cortisol level Chronic kidney disease without acute decompensation Her creatinine seems to be around baseline 1.2 Abnormal TSH, 10.1, will request free T4 level Patient takes levothyroxine after thyroidectomy Would adjust her dose after hypertensive emergency episode has resolved Full code Cardiac diet DVT prophylaxis Lovenox [place] Hypertensive emergency. I suspect this is secondary to noncompliance with home medications. Probably withdrawal from the opiates and benzodiazepines is contributing to this as well. Interestingly her nausea and vomiting resolved and blood pressure normalized with giving her IV lorazepam and her home Dilaudid. Currently we are trying to discontinue esmolol drip. She already took her home medications. We will continue current management. Possible discharge tomorrow. She states that her primary care provider is already have done a lot of testing for assessment of her hypertension. I do not think that we need to do additional testing here. Will defer long-term management to the primary care team. Chronic pain syndrome and chronic anxiety. We will resume her home medications to avoid any withdrawal symptoms. However I do realize that the patient is on large doses of opiates and benzos which will need to be addressed by the primary care team including pain specialist. Effort will need to be made to gradually decrease the amount of medications that she takes. Chest discomfort. Currently resolved. Denies. Most likely this is due to #1. I curb sided Dr. Concepcion her primary vulcanizer rubber plate. He also agrees that most likely it was noncardiac. We will discharge her with instructions to follow-up with Dr. Concepcion as outpatient. She is allergic to aspirin. Fatty liver. Outpatient management per primary care team. Leukocytosis. Probably reactive. Continue monitoring. Elevated TSH. Probably noncompliance related hypothyroidism. Continue current medications. Chronic kidney disease probably secondary to uncontrolled hypertension. Continue monitoring. DVT prophylaxis. Teds and SCDs. No anticoagulation due to risk of intracranial bleeding with uncontrolled hypertension. Attestations Medical Necessity Statement*: \Possible discharge tomorrow Coding Level of Care Code Acute Caustic Pump Operator for Chg Fwd Diagnoses Malignant hypertension I10 Chronic renal disease N18.9 Resistant hypertension I10 Abnormal TSH R79.89
[2020-09-20] MEDS: LORazepam 2 mg Tablet PO (20:41)
[2020-09-20] MEDS: HYDROcodone-acetaminophen 10-325 mg Tablet 1 TAB PO (20:41)
[2020-09-20 22:20] LABS: Lithium 0.8 mmol/L (0.6-1.2)
[2020-09-21] VITALS (8 sets, daily range): BP systolic 112–126; BP diastolic 68–79; PULSE 102–108; RESP 16–27; TEMP 36.7–36.8; O2SAT 92–98
[2020-09-21] MEDS: lurasidone 20 mg Tablet PO (00:16)
[2020-09-21] MEDS: lithium carbonate 150 mg Capsule 300 MG PO (00:23)
[2020-09-21 04:01] LABS: Basophils # 0.1 10^3/uL (0.0-0.1); Basophils % 0.7 %; Eosinophils # 0.4 10^3/uL (0.0-0.8); Eosinophils % 3.1 %; Hematocrit 44.2 % (37.0-47.0); Hemoglobin 13.1 g/dL (11.5-15.3); Lymphocytes # 3.3 10^3/uL (0.8-4.8); Lymphocytes % 27.9 %; Mean Corpuscular HGB Conc 29.6 g/dL (30.0-36.0); Mean Corpuscular Hemoglobin 26.9 pg (28.0-34.0); Mean Corpuscular Volume 90.8 fL (81-99); Mean Platelet Volume 11.6 fL (7.4-10.4); Monocytes # 0.7 10^3/uL (0.2-0.9); Monocytes % 6.2 %; Neutrophils # 7.25 10^3/uL (1.8-7.7); Neutrophils % 61.1 %; Nucleated Red Blood Cells % 0 %; Platelet Count 269 10^3/cmm (130-400); Red Blood Count 4.87 10^6/uL (4.1-5.3); Red Cell Distribution Width 15.5 % (12.1-15.1); White Blood Count 11.9 10^3/uL (4.0-10.0)
[2020-09-21 04:17] LABS: Albumin Level 4.3 g/dL (3.5-5.2); Anion Gap 12.8 (5-19); Blood Urea Nitrogen 7 mg/dL (6-20); Carbon Dioxide 27 mmol/L (22-29); Chloride 103 mmol/L (98-107); Chol HDL Ratio 1.72 mg/dL (0.0-4.40); Cholesterol 91 mg/dL (0-200); Glomerular Filtration Rate 54.5 mL/min (90-130); Glucose 132 mg/dL (65-115); HDL Cholesterol 53 mg/dL (60-100); LDL Cholesterol Calculated 27 mg/dL (50-129); LDL HDL Ratio 0.51 RATIO (0.00-3.22); Phosphorus 3.3 mg/dL (2.5-4.5); Potassium 3.8 mmol/L (3.5-5.1); Sodium 139 mmol/L (136-145); Triglycerides 54 mg/dL (0-150)
[2020-09-21 04:33] LABS: Magnesium 2.1 mg/dL (1.7-2.3)
[2020-09-21] MEDS: levothyroxine 125 mcg Tablet PO (06:06)
[2020-09-21] MEDS: LORazepam 2 mg Tablet 1 MG PO (06:08)
[2020-09-21] MEDS: amlodipine 10 mg Tablet PO (08:32)
[2020-09-21] MEDS: isosorbide mononitrate ER 30 mg Tablet PO (08:32)
[2020-09-21] MEDS: hydroCHLOROthiazide 25 mg Tablet 37.5 MG PO (08:32)
[2020-09-21] MEDS: spironolactone 25 mg Tablet PO (08:32)
[2020-09-21] MEDS: cloNIDine 0.1 mg Tablet 0.3 MG PO (08:32)
[2020-09-21] MEDS: topiramate 100 mg Tablet PO (08:32)
[2020-09-21] MEDS: lamoTRIgine 100 mg Tablet 200 MG PO (08:32)
[2020-09-21] MEDS: ropinirole 0.25 mg Tablet PO (08:32)
[2020-09-21] MEDS: pantoprazole DR 40 mg Tablet PO (08:32)
[2020-09-21] MEDS: losartan 50 mg Tablet 150 MG PO (08:33)
[2020-09-21] MEDS: lithium carbonate ER 450 mg Tablet PO (08:36)
--- NOTE | 2020-09-21 09:02 | PM.DCS ---
Discharge Providers Date of Admission: 09/20/20 00:33 Date of Discharge: September 21, 2020 Attending Provider at Admission: Danilo Mahan MD Attending Provider at Discharge: Mark Friedman Primary Care Provider: Michelle Rico Diagnoses at Discharge Discharge Diagnosis (1) Malignant hypertension: Status: Acute (2) Chronic renal disease: Status: Acute (3) Resistant hypertension: Status: Acute (4) Abnormal TSH: Status: Acute Reason for Visit Reason for Visit: CP/ELEVATED BP Hospital Course Hospital Course Discharge diagnoses and problem list Hypertensive emergency. I suspect this is secondary to noncompliance with home medications. Probably withdrawal from the opiates and benzodiazepines is contributing to this as well. Interestingly her nausea and vomiting resolved and blood pressure normalized with giving her IV lorazepam and her home Dilaudid. Esmolol drip was discontinued and her home medications were resumed.she denies any active complaints today. She slept well. Blood pressure is well controlled. She states that her primary care provider is already have done a lot of testing for assessment of her hypertension. I do not think that we need to do additional testing here. Will defer long-term management to the primary care team. Compliance was discussed. She agreed. Because her blood pressure is within normal range currently (without home Coreg) I will continue holding her home Coreg. I asked her to speak with Dr. Concepcion regarding further adjustments of her blood pressure medications. She verbalized understanding and agreement with the plan of care. Chronic pain syndrome and chronic anxiety. Continue home medications and continue follow-up with the primary care providers. Chest discomfort. Currently resolved. Follow-up with Dr. Concepcion for further outpatient management and possible additional testing. Fatty liver. Outpatient management per primary care team. Leukocytosis. Probably reactive. No evidence of infection at this time. Elevated TSH. Probably noncompliance related hypothyroidism. Continue current medications. Chronic kidney disease probably secondary to uncontrolled hypertension. Continue monitoring. Physical Exam Narrative: EXAM NARRATIVE: Awake alert oriented. No acute distress. Mood and affect are appropriate. Responses are adequate. Skin warm and dry. MMM Neck supple. No JVD Lungs clear. No respiratory distress Heart S1, S2, regular Abdomen soft, nontender, bowel sounds are present Extremities no edema cyanosis or calf tenderness bilaterally Neuro exam is nonfocal. Discharge Data Data Completed and Pending: Completed Studies During Hospitalization Category Date Time Status CT angio chest ab domen pelvis Routi ne Cat Scan 09/20/20 01:19 Completed XR chest 1V ren ble [id number] Stat Exams 09/19/20 21:22 Completed CV renal doppler [id number] Routine Ultrasound 09/20/20 01:31 Completed Pending at discharge Category Date Time Status Aldosterone Routi ne Lab 09/20/20 03:40 Received Plasma Renin Acti vity LC/MS/MS Rout ine Lab 09/20/20 03:40 Received Labs from last 24 hours 09/21/20 09/21/20 09/21/20 03:33 03:33 03:33 WBC 11.9 H RBC 4.87 Hgb 13.1 Hct 44.2 MCV 90.8 MCH 26.9 L MCHC 29.6 L RDW 15.5 H Plt Count 269 MPV 11.6 H Neut % (Auto) 61.1 Lymph % (Auto) 27.9 [place] % (Auto) 6.2 Eos % (Auto) 3.1 Baso % (Auto) 0.7 Neut # (Auto) 7.25 Lymph # (Auto) 3.3 [place] # (Auto) 0.7 Eos # (Auto) 0.4 Baso # (Auto) 0.1 Nucleated RBC % (a uto) 0 Nucleated RBCs # 0.0 Sodium 139 Potassium 3.8 Chloride 103 Carbon Dioxide 27 Anion Gap 12.8 BUN 7 Creatinine 1.1 H GFR Calculation 54.5 L Glucose 132 H Calcium 10.0 Phosphorus 3.3 Magnesium 2.1 Albumin 4.3 Triglycerides 54 Cholesterol 91 LDL Cholesterol, C alc 27 L HDL Cholesterol 53 L LDL/HDL Ratio 0.51 Cholesterol/HDL Ra ruben 1.72 Urine Opiates Scre en Ur Barbiturates Sc reen Ur Phencyclidine S crn Ur Amphetamines Sc reen U Benzodiazepines Scrn [place] Urine Cocaine Scre en U Marijuana (THC) Screen 09/20/20 09/20/20 09:34 03:04 WBC RBC Hgb Hct MCV MCH MCHC RDW Plt Count MPV Neut % (Auto) Lymph % (Auto) [place] % (Auto) Eos % (Auto) Baso % (Auto) Neut # (Auto) Lymph # (Auto) [place] # (Auto) Eos # (Auto) Baso # (Auto) Nucleated RBC % (a uto) Nucleated RBCs # Sodium Potassium Chloride Carbon Dioxide Anion Gap BUN Creatinine GFR Calculation Glucose Calcium Phosphorus Magnesium Albumin Triglycerides Cholesterol LDL Cholesterol, C alc HDL Cholesterol LDL/HDL Ratio Cholesterol/HDL Ra rub[place] Urine Opiates Scre en Positive H Ur Barbiturates Sc reen Negative Ur Phencyclidine S crn Negative Ur Amphetamines Sc reen Negative U Benzodiazepines Scrn Positive H [place] 0.8 Urine Cocaine Scre en Negative U Marijuana (THC) Screen Negative Vitals: Last Vital Signs Temp 98.0 F 09/21/20 08:00 Pulse 102 H 09/21/20 08:00 Resp 27 H 09/21/20 08:00 BP 112/68 09/21/20 08:33 Pulse Ox 98 09/21/20 08:00 Discharge Plan Discharge Patient Disposition: Home Condition: Stable Prescriptions: Continued sucralfate [Carafate] 1 gram tablet 1 g PO Q6H 28 Days Qty: 112 RF: 0 pantoprazole 40 mg tablet,delayed release (DR/EC) 40 mg PO BIDWMEAL Qty: 60 RF: 0 ropinirole [Requip] 0.25 mg tablet 0.25 mg PO TID@0800,1200,2000 RF: 0 hydromorphone 4 mg tablet 4 mg PO QID RF: 0 hydrocodone-acetaminophen 10-325 mg tablet 1 tab PO Q6H PRN (Reason: Pain) RF: 0 Probiotic Acidophilus 1.5 mg (250 million cell) capsule 1.5 mg PO DAILY@0800 RF: 0 tizanidine 4 mg capsule 4 mg PO QID@08,12,16,20 RF: 0 levothyroxine 112 mcg capsule 125 mcg PO DAILY@0500 RF: 0 lithium carbonate 150 mg capsule 150 mg PO QAM Qty: 30 RF: 5 lorazepam [Ativan] 2 mg tablet See Rx Instructions PO .COMPLEX Qty: 60 RF: 5 lithium carbonate 300 mg tablet See Rx Instructions PO .COMPLEX Qty: 90 RF: 5 promethazine 25 mg tablet 25 mg PO TID PRN (Reason: nausea and vomiting) Qty: 30 RF: 0 multivitamin Tablet 1 tab PO DAILY@0800 RF: 0 ondansetron 4 mg Tablet,Disintegrating 4 mg PO Q12H PRN (Reason: nausea/vomiting) RF: 0 Lamictal 200 mg tablet 200 mg PO DAILY@0800 RF: 0 isosorbide mononitrate 30 mg tablet extended release 24 hr 30 mg PO DAILY@0800 RF: 0 clonidine HCl 0.3 mg tablet 0.3 mg PO TID@0800,1199,1999 RF: 0 spironolactone 25 mg tablet 25 mg PO BID@799,1999 RF: 0 losartan-hydrochlorothiazide 100-25 mg tablet 1.5 tab PO DAILY@0800 RF: 0 amlodipine 10 mg tablet 10 mg PO DAILY@0800 RF: 0 furosemide 20 mg tablet 20 mg PO DAILY@0800 RF: 0 topiramate 100 mg tablet 100 mg PO DAILY@0800 RF: 0 Questran 4 gram powder 4 g PO TID@0800,1199,1999 RF: 0 Latuda 20 mg tablet 20 mg PO BEDTIME@0 RF: 0 Held carvedilol [Coreg] 25 mg tablet 25 mg PO BID@799,1999 RF: 0 Hold Instructions: Resume on 09/29/20. Please resume this medication after discussing with Dr. Concepcion Discharge Orders: Discharge Order (Routine); Ordered 09/21/20 Ordered By: Mark Friedman Referrals: Michelle Rico FNP [Primary Care Provider] - Danilo Concepcion MD [Physician] - 1-3 days Discharge Diet: Cardiac and Low Salt Discharge Activity: Increase activity as tolerated Patient Instructions: Chronic Hypertension (DC) Activity Restrictions/Additional Instructions: Please follow-up with your providers for management of your chronic medical conditions including hypertension and hypothyroidism. Please take your medications every day and is instructed. Consistency is very important! This will help your providers to adjust the medications more accurately. Please keep a notebook with records of your vital signs and medications taken. Please check your blood pressure 3 times a day. Please come back to emergency room if develop any new problems with the blood pressure, high or low, if develop any headache, dizziness or lightheadedness, weakness, chest pain, shortness of breath, nausea, vomiting, fever, or any other new complaints. 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
--- NOTE | 2020-09-21 10:08 | PC.CHAP ---
Pastoral Care Encounter/Spiritual Assessment Type of Contact [] Declined insurance agency sales manager visit [] Patient/Family/Request visit [] Outpatient visit [] Follow-up visit [] Physician referral [] Code/Alert [x] Routine visit [] Staff referral [] Actively dying [] Patient sleeping [] Family support [] [] Out of room [] Palliative care [] [] Receiving care in room [] Pre-surgical visit [] Trauma [] Long length of stay [] ICU visit [] Other: Relational/Emotional Strength [x] Patient feels connected with others/family/visitors/staff [] Distress [] Loneliness/isolation [] Abandonment Spirituality of Patient [x] Person of Teri [] Attends Congregation of their Teri [x] Believes in Prayer [] Reads Bible or Jewish materials [] There are Spiritual issues to be addressed Nuclear Monitoring Technician Interventions [x] Prayer [x] Active listening [x] Non-anxious presence [x] Spiritual/emotional support [] Crisis/trauma care [] Spiritual counseling [] Bereavement support [] Provided bereavement packet [] Provided Bible/devotional materials [] Provided toy/stuffed animal, coloring book to patient or family member [] Provided Communion [] Anointing/[place] [] Salvation [] Completed spiritual assessment [] Other: Impact on Illness or Injury [] Angry [] Fearful [] Anxious [] Often cries [] Exhaustion [] Unable to work [] Unable to attend holiness [] Unable to walk/stand [] Unable to read [] Unable to drive [] Unable to eat/drink [] Unable to sleep [] Unable to be with family [] Patient intubated [] Other: Summary Chaplains talked to and prayed with Patient. Time spent with patient 6 minutes.
--- NOTE | 2020-09-21 10:15 | PC.NURSE ---
PATIENT COMPLIANT WITH CHECKING HER BLOOD PRESSURES AT HOME, SHE REASSURED NURSE OF THIS. NO QUESTIONS OVER DISCHARGE INSTRUCTIONS.
[2020-09-24 01:13] LABS: Plasma Renin Activity LC/MS/MS 0.86 ng/mL/h (0.25-5.82)
== END 2020-09-21 10:14 | disposition home or self-care (01) ==
LOC: ER 21:45 → CSU 09-20 00:50
PROVIDERS: Emergency Medicine; Admitting Provider Internal Medicine; Emergency Provider Family Medicine; PCP Nurse Practitioner Family; Visit Provider Internal Medicine
DX: I12.9 Hypertensive chronic kidney disease with stage 1 through stage 4 chronic kidney disease, or unspecified chronic kidney disease (principal); N18.9 Chronic kidney disease, unspecified; R79.89 Other specified abnormal findings of blood chemistry; F41.9 Anxiety disorder, unspecified
CPT/HCPCS: 12345; 36415; 71045; 71275; 74174; 80048; 80053; 80061; 80069; 80178; 80306; 82088; 82533; 83735; 83880; 84244; 84443; 84484; 85025; 93005; 93975; 96372; 99283; G0378; J1170; J2060; J2405; J2550; J2765; J3490; Q9967

== ENCOUNTER → 2020-11-27 08:28 | Outpatient (BNVA) | payer OTHER, SELFPAY | PROVIDERS: PCP Nurse Practitioner Family; Visit Provider Psychiatry & Neurology Psychiatry | DX: F31.31 Bipolar disorder, current episode depressed, mild (principal); F41.1 Generalized anxiety disorder; N18.9 Chronic kidney disease, unspecified; I10 Essential (primary) hypertension | CPT/HCPCS: 99214 ==

== ENCOUNTER → 2020-12-18 08:01 | Outpatient (BNVA) | payer OTHER, SELFPAY | PROVIDERS: PCP Nurse Practitioner Family; Visit Provider Psychiatry & Neurology Psychiatry | DX: F31.31 Bipolar disorder, current episode depressed, mild (principal); F41.1 Generalized anxiety disorder; N18.9 Chronic kidney disease, unspecified; Z79.899 Other long term (current) drug therapy | CPT/HCPCS: 99214 ==

== ENCOUNTER 2021-01-08 09:03 | Outpatient (CLI) | payer OTHER, SELFPAY ==
--- NOTE | 2021-01-08 09:21 | US_ITS ---
WS: [id number] RENAL ULTRASOUND HISTORY: STAGE 3 CHRONIC KIDNEY DZ COMPARISON: 03/21/2012 TECHNIQUE: 2-D and color Doppler imaging of the kidney submitted. Right kidney: 10.1 cm x 4.4 cm x 4.6 cm. Normal echogenicity with no hydronephrosis or mass. Left kidney: 10.3 cm x 4.5 cm x 4.5 cm. Normal echogenicity with no hydronephrosis or mass. Aorta: Normal. Urinary Bladder: Normal distention. US/US renal BI* [id number] IMPRESSION: Normal renal ultrasound.
[2021-01-08 10:34] LABS: Lithium 0.3 mmol/L (0.6-1.2)
== END 2021-01-08 09:04 | disposition home or self-care (01) ==
LOC: US 09:10
PROVIDERS: PCP Nurse Practitioner Family; Referring Provider Psychiatry & Neurology Psychiatry; Visit Provider Internal Medicine Nephrology
DX: N18.32 Chronic kidney disease, stage 3b (principal)
CPT/HCPCS: 36415; 76770; 80178

== ENCOUNTER → 2021-01-09 09:21 | Outpatient (BNVA) | payer OTHER, SELFPAY | PROVIDERS: PCP Nurse Practitioner Family; Visit Provider Psychiatry & Neurology Psychiatry | DX: F31.31 Bipolar disorder, current episode depressed, mild (principal); F41.1 Generalized anxiety disorder; N18.9 Chronic kidney disease, unspecified; I10 Essential (primary) hypertension; Z79.899 Other long term (current) drug therapy | CPT/HCPCS: 99215 ==

== ENCOUNTER → 2021-01-12 10:34 | Outpatient (BNVA) | payer OTHER, SELFPAY | PROVIDERS: PCP Nurse Practitioner Family; Visit Provider Psychiatry & Neurology Psychiatry | DX: Z79.899 Other long term (current) drug therapy (principal) | CPT/HCPCS: 80178 ==

== ENCOUNTER 2021-01-19 09:28 | Outpatient (CLI) | payer OTHER, SELFPAY ==
--- NOTE | 2021-01-19 09:47 | XR_ITS ---
WS: [id number] Exam: XR shoulder RT min 2V* [id number] Date/Time of Exam: 01/19/2021 9:59 AM Reason For Exam: PAIN IN RIGHT SHOULDER The projections of the shoulder reveal no fractures, anomalies, soft tissue swelling, or calcificatio ns. There is normal bony alignment. No irregularity of the bony architecture is noted. XR/XR shoulder RT min 2V* [id number] IMPRESSION: Negative right shoulder.
--- NOTE | 2021-01-19 09:47 | XR_ITS ---
WS: [id number] Exam: XR cervical spine 3V* [id number] Date/Time of Exam: 01/19/2021 9:59 AM Reason For Exam: CERVICALGIA No fracture or dislocation. There is straightening. There is operative fusion with anterior plate and screw fixation at C5-6. The fusion is ossified and in good alignment. Paraspinal soft tissues appear normal. The odontoid is intact. XR/XR cervical spine 3V* [id number] IMPRESSION: 1. No acute fracture or malalignment. 2. Intact interbody fusion at C5-6 which is in satisfactory alignment.
--- NOTE | 2021-01-19 09:48 | XR_ITS ---
WS: [id number] Exam: XR shoulder LT min 2V* [id number] Date/Time of Exam: 01/19/2021 9:59 AM Reason For Exam: PAIN IN LEFT SHOULDER Comparison 04/17/2020. The projections of the shoulder reveal no fractures, anomalies, soft tissue swelling, or calcificatio ns. There is normal bony alignment. No irregularity of the bony architecture is noted. XR/XR shoulder LT min 2V* [id number] IMPRESSION: Negative left shoulder.
--- NOTE | 2021-01-19 09:49 | XR_ITS ---
WS: [id number] Exam: XR skull min 4V* [id number] Date/Time of Exam: 01/19/2021 9:59 AM Reason For Exam: INJURY Findings: The skull was viewed in multiple projections and reveals no fractures or bony anomalies. The sella tu rcica is well formed and is not eroded or enlarged. There are no unusual intracranial calcifications . The soft tissues are not enlarged or calcified. XR/XR skull min 4V* [id number] IMPRESSION: Negative skull.
== END 2021-01-19 09:29 | disposition home or self-care (01) ==
PROVIDERS: PCP Nurse Practitioner Family; Visit Provider Anesthesiology Pain Medicine
DX: M54.2 Cervicalgia (principal); M25.511 Pain in right shoulder; M25.512 Pain in left shoulder; S09.90XA Unspecified injury of head, initial encounter; X58.XXXA Exposure to other specified factors, initial encounter
CPT/HCPCS: 70260; 72040; 73030

== ENCOUNTER 2021-01-20 19:35 | Inpatient (IN) | payer OTHER, SELFPAY ==
[2021-01-20] VITALS (9 sets, daily range): BP systolic 159–225; BP diastolic 106–168; PULSE 80–123; RESP 10–18; TEMP 36.7; O2SAT 93–97; BMI 37.0
--- NOTE | 2021-01-20 20:08 | XRR_ITS ---
PROCEDURE INFORMATION: Exam: XR Chest Exam date and time: 01/20/2021 8:14 PM Age: 40 years old Clinical indication: Chest wall pain; Prior surgery; Patient HX: Chest pain, c-spine surgery, hysterectomy TECHNIQUE: Imaging protocol: XR of the chest. Views: 1 view. COMPARISON: CR XR chest 1V portable [id number] 09/19/2020 10:01 PM FINDINGS: Lungs: Unremarkable. No consolidation. Pleural spaces: Unremarkable. No pleural effusion. No pneumothorax. Heart/Mediastinum: Unremarkable. No cardiomegaly. Bones/joints: Chronic cervical metallic fusion. XR/XR chest 1V portable [id number] IMPRESSION: No change, lungs clear
--- NOTE | 2021-01-20 20:12 | ECG_ITS ---
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 Measurements Intervals [place] Rate: 113 P: [place]: QRS: 108 QRSD: 83 T: 4 QT: 316 QTc: 434 Interpretive Statements SINUS TACHYCARDIAMARKED RIGHT AXIS DEVIATION [QRS AXIS > 100] POSSIBLE ANTERIOR MYOCARDIAL INFARCTION [30 ms Q WAVE IN V3/V4, OR R < 0.2 mV IN V4], PROBABLY OLD Compared to ECG 09/19/2020 23:39:17 Right-axis deviation now present Myocardial infarct finding now present Electronically Signed On 01-21-2021 17:32:35 CDT by Rodolfo hCen M.D. [email or web address] [employer] [id number]
--- NOTE | 2021-01-20 20:13 | CTR_ITS ---
PROCEDURE INFORMATION: Exam: CT Head Without Contrast Exam date and time: 01/20/2021 8:24 PM Age: 40 years old Clinical indication: Pain; Headache; Patient HX: C/O PRATHER with n/v since fall with blow to head on 01/18/2021; Additional info: Head injury, vomiting, 10/ pain TECHNIQUE: Imaging protocol: Computed tomography of the head without contrast. Radiation optimization: All CT scans at this facility use at least one of these dose optimization techniques: automated exposure control; mA and/or kV adjustment per patient size (includes targeted exams where dose is matched to clinical indication); or iterative reconstruction. COMPARISON: CT head wo con* [id number] 07/29/2016 4:48 AM RADIATION DOSE METRICS: Total DLP (mGy-cm): 879.95 FINDINGS: Brain: Normal. No hemorrhage. Unremarkable white matter. No mass effect. Cerebral ventricles: No ventriculomegaly. Bones/joints: Unremarkable. No acute fracture. Paranasal sinuses: Visualized sinuses are unremarkable. No fluid levels. Mastoid air cells: Visualized mastoid air cells are well aerated. Soft tissues: Unremarkable. CT/CT head wo con* [id number] IMPRESSION: No change, unremarkable Radiation Dose CTDIVOL = (mGy): DLP = 879.95 (mGy-cm)
[2021-01-20] MEDS: HYDROmorphone 1 mg/mL INJ 1 mL IVP (20:34)
[2021-01-20] MEDS: ondansetron 2 mg/ML SDV 2 mL 4 MG IVP (20:34)
[2021-01-20] MEDS: sodium chloride 0.9% 1,000 ML 999 ML IV (20:35)
[2021-01-20] MEDS: diphenhydrAMINE 50 mg/mL SDV 1mL IVP (20:35)
[2021-01-20] MEDS: labetalol 5 mg/mL SDV 20mL 10 MG IVP (20:37)
--- NOTE | 2021-01-20 20:42 | W.ED.CHESTPA ---
HPI - Chest Pain General: Chief Complaint: Chest Pain Stated Complaint: fell tuesday, hit head,N/V, HTN,Dizzy,H/A Time Seen by Provider: 01/20/21 19:59 History of Present Illness: HPI narrative: Patient is a well-appearing 40-year-old female seen for multiple complaints. She states that she fell and struck her head several days ago and was seen by her primary care physician who took plain films of her head and neck showing no acute process. Since that time, she has had worsening headache, visual disturbance, photophobia, nausea, and vomiting. At this time, she denies neck pain. She also describes chest pain which has been off and on for the last 48 hours, which she describes as sharp, 6 of 10, worse with exertion and better with rest. She has been taking all her normal medications and despite this, pain and blood pressure remain elevated. She does not take blood thinners. Review of Systems General: Reports: 10 or more systems reviewed and unremarkable except in HPI and below PFSH ED PFSH: Medical History (Updated 01/20/21 @ 23:39 by Luis David MD) Chronic renal disease Generalized anxiety disorder Malignant hypertension Palpitation Surgical History H/O angioplasty H/O esophagogastroduodenoscopy (08/12/20) H/O rectal polypectomy H/O total thyroidectomy History of appendectomy History of bilateral oophorectomy 2011 History of colonoscopy with polypectomy (08/12/20) History of spinal fusion 10/01/2013- C5-6, ACDFF Dr. Villanueva History of suburethral sling procedure anterior colporrhapy augmentd with porcine graft, cystoscopy performed on 03/08/[address] Haley History of total hysterectomy 2000 Hx of cholecystectomy Status post hemilaminotomy 01/06/2012, right L5-S1, disectomy and foraminotomy per Dr. Villanueva Family History Mother Diabetes Pancreatic cancer Ovarian cancer Father Diabetes Hypertension Stroke COPD (chronic obstructive pulmonary disease) Grandfather Hypertension maternal Heart disease maternal Grandmother Colon cancer maternal Social History Smoking and tobacco status: never smoked Alcohol intake: never Additional social history: well balanced diet Physical Exam Const: COMMON NORMALS: no acute distress, patient oriented x3 and alert HENMT: COMMON NORMALS: normocephalic and atraumatic HEAD & SCALP: normocephalic and atraumatic OTHER: Trauma to the head or neck. No cephalhematoma. No scalp tenderness or deformity. Eye: COMMON NORMALS: Equal, round and reactive pupils present, EOMs intact bilaterally and no scleral icterus PUPIL: Yes Equal, round and reactive pupils present Neck/C-Spine: OTHER: Full range of motion of the neck with no increase in pain. No step-off or midline tenderness. No meningismus. Resp: COMMON NORMALS: normal respiratory effort and No retractions Cardio: COMMON NORMALS: regular rhythm and No murmurs present (Cardio) RATE: tachycardic RHYTHM: regular rhythm GI: COMMON NORMALS: Normal to inspection, nondistended, normoactive bowel sounds present, Soft to palpation and non-tender PALPATION: Yes Soft to palpation Neuro: COMMON NORMALS: patient oriented x3 SENSORIUM/ORIENTATION: Yes alert Skin: COMMON NORMALS: no rashes or lesions noted GENERAL SKIN EXAM: no rashes or lesions noted Course Vital Signs: Vital signs: Vital Signs Temperature 98.1 F 01/20/21 19:40 Pulse Rate 80 01/20/21 22:28 Respiratory Rate 14 01/20/21 22:28 Blood Pressure 159/106 01/20/21 22:28 Pulse Oximetry 95 01/20/21 22:28 MDM - Chest Pain MDM Narrative: Medical decision making narrative: Patient remained hypertensive despite multiple doses of multiple antihypertensive medications. Headache persisted despite aggressive treatment. Both she and her describe periods of time when her blood pressure remains well controlled with medication, but other times when it gets completely out of control and no medication seems to help. She has been tested for pheochromocytoma in the past, but I feel it would be appropriate to recheck her. Additionally, she will require a Cardene drip and admission to the intensive care unit to control her blood pressure. She agrees to the plan. She will take upstairs in guarded but stable condition. Lab Data: Labs: Lab Results 01/20/21 01/20/21 01/20/21 Range/Units 20:30 20:30 20:30 WBC 8.9 (4.0-10.0) 10^3/ uL RBC 4.94 (4.1-5.3) 10^6/u L Hgb 13.8 (11.5-15.3) g/dL Hct 44.8 (37.0-47.0) % MCV 90.7 (81-99) fL MCH 27.9 L (28.0-34.0) pg MCHC 30.8 (30.0-36.0) g/dL RDW 15.5 H (12.1-15.1) % Plt Count 210 (130-400) 10^3/c mm MPV 11.7 H (7.4-10.4) fL Neut % (Auto) 55.0 % Lymph % (Auto) 33.7 % [place] % (Auto) 6.0 % Eos % (Auto) 3.8 % Baso % (Auto) 1.0 % Neut # (Auto) 4.87 (1.8-7.7) 10^3/u L Lymph # (Auto) 3.0 (0.8-4.8) 10^3/u L [place] # (Auto) 0.5 (0.2-0.9) 10^3/u L Eos # (Auto) 0.3 (0.0-0.8) 10^3/u L Baso # (Auto) 0.1 (0.0-0.1) 10^3/u L Nucleated RBC % (a uto) 0 % Nucleated RBCs # 0.0 /100WBC Sodium 141 (136-145) mmol/L Potassium 4.0 (3.5-5.1) mmol/L Chloride 102 (98-107) mmol/L Carbon Dioxide 24 (22-29) mmol/L Anion Gap 19.0 (5-19) BUN 10 (6-20) mg/dL Creatinine 1.4 H (0.5-0.9) mg/dL GFR Calculation 41.2 L (90-130) mL/min Glucose 89 (65-115) mg/dL Calculated Osmolal ity 291 (285-295) mOsm/k g Calcium 9.3 (8.5-10.5) mg/dL Total Bilirubin 0.5 (0.15-1.2) mg/dL AST 88 H (0-32) U/L ALT 61 H (0-33) U/L Alkaline Phosphata se 60 (35-105) IU/L Troponin T Baselin e 7 (0-10) ng/L Troponin T 120 Min [place] (0-10) ng/L Delta Troponin T (0-10) ABS# Total Protein 8.3 (6.6-8.7) g/dL Albumin 5.9 H (3.5-5.2) g/dL Globulin 2.4 (1.3-4.6) g/dL 01/20/21 Range/Units 22:38 WBC (4.0-10.0) 10^3/ uL RBC (4.1-5.3) 10^6/u L Hgb (11.5-15.3) g/dL Hct (37.0-47.0) % MCV (81-99) fL MCH (28.0-34.0) pg MCHC (30.0-36.0) g/dL RDW (12.1-15.1) % Plt Count (130-400) 10^3/c mm MPV (7.4-10.4) fL Neut % (Auto) % Lymph % (Auto) % [place] % (Auto) % Eos % (Auto) % Baso % (Auto) % Neut # (Auto) (1.8-7.7) 10^3/u L Lymph # (Auto) (0.8-4.8) 10^3/u L [place] # (Auto) (0.2-0.9) 10^3/u L Eos # (Auto) (0.0-0.8) 10^3/u L Baso # (Auto) (0.0-0.1) 10^3/u L Nucleated RBC % (a uto) % Nucleated RBCs # /100WBC Sodium (136-145) mmol/L Potassium (3.5-5.1) mmol/L Chloride (98-107) mmol/L Carbon Dioxide (22-29) mmol/L Anion Gap (5-19) BUN (6-20) mg/dL Creatinine (0.5-0.9) mg/dL GFR Calculation (90-130) mL/min Glucose (65-115) mg/dL Calculated Osmolal ity (285-295) mOsm/k g Calcium (8.5-10.5) mg/dL Total Bilirubin (0.15-1.2) mg/dL AST (0-32) U/L ALT (0-33) U/L Alkaline Phosphata se (35-105) IU/L Troponin T Baselin e (0-10) ng/L Troponin T 120 Min [place] 6.00 (0-10) ng/L Delta Troponin T -1.00 L (0-10) ABS# Total Protein (6.6-8.7) g/dL Albumin (3.5-5.2) g/dL Globulin (1.3-4.6) g/dL EKG Data^: EKG 1: Interpretation: Time?2005?normal sinus rhythm, rate of 71, no ST elevation or depression, intervals within normal limits. Critical Care Time Critical Care Time: Critical Care Time: Yes Total Critical Care Time: 45 Attestation: This case had a high probability of a clinically significant, sudden, or life threatening deterioration of this patient's condition which required my full and direct attention, intervention and personal management. Discharge Plan Discharge Patient Disposition: Admitted As Inpatient Clinical Impression: Hypertensive emergency, Chest pain, Headache Condition: Fair Discharge Diet: Advance as tolerated Discharge Activity: Increase activity as tolerated Coding Level of Care Code ED Sandblasting Supervisor for Ingrid Fwd Exam Detailed
[2021-01-20 20:46] LABS: Basophils # 0.1 10^3/uL (0.0-0.1); Eosinophils # 0.3 10^3/uL (0.0-0.8); Eosinophils % 3.8 %; Hematocrit 44.8 % (37.0-47.0); Hemoglobin 13.8 g/dL (11.5-15.3); Lymphocytes % 33.7 %; Mean Corpuscular HGB Conc 30.8 g/dL (30.0-36.0); Mean Corpuscular Hemoglobin 27.9 pg (28.0-34.0); Mean Corpuscular Volume 90.7 fL (81-99); Mean Platelet Volume 11.7 fL (7.4-10.4); Monocytes # 0.5 10^3/uL (0.2-0.9); Neutrophils # 4.87 10^3/uL (1.8-7.7); Nucleated Red Blood Cells % 0 %; Platelet Count 210 10^3/cmm (130-400); Red Blood Count 4.94 10^6/uL (4.1-5.3); Red Cell Distribution Width 15.5 % (12.1-15.1); White Blood Count 8.9 10^3/uL (4.0-10.0)
[2021-01-20 21:01] LABS: Troponin(5th) Baseline 7 ng/L (0-10)
[2021-01-20 21:02] LABS: Alanine Aminotransferase 61 U/L (0-33); Albumin Level 5.9 g/dL (3.5-5.2); Alkaline Phosphatase 60 IU/L (35-105); Aspartate Amino Transferase 88 U/L (0-32); Blood Urea Nitrogen 10 mg/dL (6-20); Calcium 9.3 mg/dL (8.5-10.5); Carbon Dioxide 24 mmol/L (22-29); Chloride 102 mmol/L (98-107); Globulin 2.4 g/dL (1.3-4.6); Glomerular Filtration Rate 41.2 mL/min (90-130); Glucose 89 mg/dL (65-115); Osmolality Calculated 291 mOsm/kg (285-295); Sodium 141 mmol/L (136-145); Total Bilirubin 0.5 mg/dL (0.15-1.2); Total Protein 8.3 g/dL (6.6-8.7)
[2021-01-20] MEDS: cloNIDine 0.1 mg Tablet 0.3 MG PO (21:06)
[2021-01-20] MEDS: propofol 10 mg/mL SDV 20 mL 50 MG IVP (22:59)
--- NOTE | 2021-01-20 23:57 | PM.HP ---
Providers/Chief Complaint Primary Care Provider: Michelle Rico Chief Complaint: fell tuesday, hit head,N/V, HTN,Dizzy,H/A History of Present Illness Nina Garcia is a 40 year old female who presented today with chief complaint of nausea and vomiting and hypertension.. Patient is stating that she does get episodic hyertensive episode with facial flushing and diarrhea, with her high blood pressure she also gets tremors. For last 2 to 3 days her blood pressure has been high and she has been experiencing recurrent episode of nausea and vomiting, this time she did not experience any diarrhea, no fever productive cough or chest pain. She has been noticing swelling on her feet, however no orthopnea PND or chest pain. She does take multiple antihypertensive agents and was asked to follow-up for possible diagnosis of pheochromocytoma however no diagnostic evaluation has been done yet. Diagnosis in the ER revealed hypertensive emergency with systolic blood pressure 180 and diastolic 130 m mercury, patient was complaining of headache, blurry vision, clinical signs of fluid overload pedal edema, SHELTON, decision was made to admit to ICU start Cardene drip for hypertensive emergency and slowly titrate her blood pressure down with mean arterial pressure reduction 25% in next few hours, requested catecholamines 24-hour urine sample Review of Systems Const: Reports: chills, body aches and fatigue; Denies: fever(s) Eyes: Reports: change in vision and blurry vision ENMT: Denies: throat pain Card: Reports: swelling of feet/ankles; Denies: chest pain Resp: Denies: dyspnea GI: Reports: nausea and vomiting : Denies: flank pain Musc: Denies: neck pain Skin/Breast: Denies: rash Neuro: Reports: headache(s) Psych: Reports: anxiety and depression Endo: Denies: polyuria [place]/Lymph: Denies: easy bruising All/Imm: Denies: urticaria Medications/Allergies Home Medications Medication Instructions Recorded Confirmed Last Taken Type Lactobacillus acidophilus 1.5 mg 1.5 mg PO DAILY@0800 cap 08/30/19 09/23/20 09/19/20 History (250 million cell) capsule hydrocodone 10 mg-acetaminophen 1 tab PO Q6H PRN 08/30/19 09/23/20 09/19/20 History 325 mg tablet hydromorphone 4 mg tablet 4 mg PO QID tab 08/30/19 09/23/20 09/19/20 History ropinirole 0.25 mg tablet 0.25 mg PO TID@0800,1200,199908/30/19 09/23/20 09/19/20 History tizanidine 4 mg capsule 4 mg PO QID@08,12,16,20 cap 08/30/19 09/23/20 09/19/20 History levothyroxine 112 mcg capsule 125 mcg PO DAILY@0500 cap 05/26/20 09/23/20 09/19/20 History promethazine 25 mg PO TID PRN #30 tab 07/03/20 09/23/20 09/19/20 Rx lorazepam 2 mg tablet See Rx Instructions PO .COMPLEX 09/04/20 09/23/20 09/19/20 Rx #60 tab sucralfate 1 gram tablet 1 g PO Q6H 28 Days #112 tab 09/12/20 09/23/20 09/19/20 Rx Lamictal 200 mg PO DAILY@0800 09/19/20 09/23/20 09/19/20 History Questran 4 g PO TID@0800,1200,199909/19/20 09/23/20 09/19/20 History amlodipine 10 mg PO DAILY@0800 09/19/20 09/23/20 09/19/20 History furosemide 20 mg PO DAILY@0800 09/19/20 09/23/20 09/19/20 History isosorbide mononitrate 30 mg PO DAILY@0800 09/19/20 09/23/20 09/19/20 History losartan-hydrochlorothiazide 1.5 tab PO DAILY@0800 09/19/20 09/23/20 09/19/20 History multivitamin 1 tab PO DAILY@0800 09/19/20 09/23/20 09/19/20 History ondansetron 4 mg PO Q12H PRN 09/19/20 09/23/20 09/19/20 History spironolactone 25 mg PO BID@0800,199909/19/20 09/23/20 09/19/20 History topiramate 100 mg PO DAILY@0800 09/19/20 09/23/20 09/19/20 History carvedilol 6.25 mg tablet 6.25 mg PO BID #180 tab 09/23/20 09/23/20 Unknown Rx pantoprazole 40 mg tablet,delayed See Rx Instructions .ROUTE 12/08/20 Unknown Rx release .COMPLEX #60 tab lurasidone 60 mg tablet 60 mg PO DAILY #30 tab 12/18/20 12/18/20 Unknown Rx clonidine HCl 0.3 mg tablet 0.3 mg PO TID@0800,1200,2000 #90 12/22/20 Unknown Rx tab lithium carbonate 600 mg capsule 600 mg PO TID #90 cap 01/13/21 Unknown Rx Allergies Allergy/AdvReac Type Severity Reaction Status Date / Time aspirin Allergy due to BUN Verified 09/12/20 11:29 levels coconut Allergy hives Verified 09/12/20 11:29 ketorolac [From Toradol] Allergy hives Verified 09/12/20 11:29 meloxicam [From Mobic] Allergy hives Verified 09/12/20 11:29 NSAIDS (Non-Steroidal Allergy Unknown Verified 09/12/20 11:29 Anti-Inflamma PFSH Acute PFSH: Medical History Chronic renal disease Generalized anxiety disorder Malignant hypertension Palpitation Surgical History H/O angioplasty H/O esophagogastroduodenoscopy (08/12/20) H/O rectal polypectomy H/O total thyroidectomy History of appendectomy History of bilateral oophorectomy 2011 History of colonoscopy with polypectomy (08/12/20) History of spinal fusion 10/01/2013- C5-6, ACDFF Dr. Villanueva History of suburethral sling procedure anterior colporrhapy augmentd with porcine graft, cystoscopy performed on 03/08/[address] Haley History of total hysterectomy 2000 Hx of cholecystectomy Status post hemilaminotomy 01/06/2012, right L5-S1, disectomy and foraminotomy per Dr. Villanueva Family History Mother Diabetes Pancreatic cancer Ovarian cancer Father Diabetes Hypertension Stroke COPD (chronic obstructive pulmonary disease) Grandfather Hypertension maternal Heart disease maternal Grandmother Colon cancer maternal Social History Smoking and tobacco status: never smoked Alcohol intake: never Additional social history: well balanced diet Vitals/I&O/Wt Last Vital Signs Temp 98.1 F 01/20/21 19:40 Pulse 80 01/20/21 22:28 Resp 14 01/20/21 22:28 BP 159/106 01/20/21 22:28 Pulse Ox 95 01/20/21 22:28 Weight last 48 hrs Weight 101.151 kg Weight 101.151 kg Physical Exam Narrative: EXAM NARRATIVE: Very pleasant cooperative female who was sitting comfortably in her bed when entered the room he was saturating 100% on 4 L, her oxygen saturation was 100% when FiO2 titrated down to 2 L S1, S2 no murmur appreciated, Pedal edema positive however no lower extremity edema noted Abdomen soft nontender No acute respite distress no audible stridor or wheezing EOMI, PERRLA No neurological deficits Appropriate mood and affect at the bedside Facial flushing noted, no joint swelling, Data : 01/20/21 20:30 01/20/21 20:30 A&P Assessment and plan (1) Hypertensive emergency: Status: Acute (2) SHELTON (acute kidney injury): Status: Acute (3) Bipolar 1 disorder, depressed, mild: Status: Acute (4) Generalized anxiety disorder: Status: Acute (5) Lower extremity edema: Status: Acute Additional A&P Information Hypertensive emergency Admit to ICU with Cardene drip with mean arterial pressure reduction 24% in next few hours and target normal blood pressure in next 24 to 48 hours, will resume her oral antihypertensive regimen from tomorrow, to avoid rebound hypertension I would start clonidine she takes higher dose of 0.3 mg, will hold spironolactone and losartan because of mild SHELTON I do not see an order set for metanephrine plasma free level therefore I would request 24-hour urine collection for catecholamine level detection, I would keep her on clonidine which will be a good diagnostic factor if her catecholamine level comes high Patient does have signs of pheochromocytoma as she is endorsing history of episodic hypertension facial flushing and diarrhea, carcinoid syndrome should also be considered in differential, has not received any MRI or PET scan to rule out pheochromocytoma in the past Check TSH level along with lithium Her SHELTON seems secondary to hypertensive emergency Endorgan damage, high creatinine, pedal edema, I will keep her on Lasix that she takes at home for now Cardiac diet Full code DVT prophylaxis Lovenox Attestations Medical Necessity Statement*: Anticipating stay in the hospital because more than 2 midnights for hypertensive urgency currently on Cardene drip, need 24-hour urine collection to rule out pheochromocytoma Time Spent in Patient Care: (>than 50% of time spent in counselling and/or direct pt care on unit). 35mins Coding Level of Care Code Acute Commercial Plumber for Ingrid Fwd Diagnoses Hypertensive emergency I16.1 SHELTON (acute kidney injury) N17.9 Bipolar 1 disorder, depressed, mild F31.31 Generalized anxiety disorder F41.1 Lower extremity edema R60.0
[2021-01-21] VITALS (155 sets, daily range): BP systolic 95–177; BP diastolic 64–139; PULSE 69–133; RESP 3–25; TEMP 36.4–37.1; O2SAT 89–100
[2021-01-21] MEDS: nicardipine 20 MG/200 ML PREMIX 50 MG IV ×2 (00:11→05:10)
[2021-01-21] MEDS: HYDROmorphone 1 mg/mL INJ 1 mL IVP ×3 (00:12→02:45)
[2021-01-21] MEDS: pantoprazole DR 40 mg Tablet PO ×3 (01:57→17:48)
[2021-01-21] MEDS: acetaminophen-codeine 120-12 mg/5 mL UDC PO (02:16)
[2021-01-21] MEDS: ondansetron 2 mg/ML SDV 2 mL 4 MG IVP ×2 (02:21→08:26)
[2021-01-21] MEDS: nicardipine 20 MG/200 ML PREMIX 100 MG IV (02:22)
[2021-01-21 02:44] LABS: Basophils # 0.1 10^3/uL (0.0-0.1); Basophils % 1.3 %; Eosinophils # 0.5 10^3/uL (0.0-0.8); Eosinophils % 4.8 %; Hematocrit 44.1 % (37.0-47.0); Hemoglobin 13.5 g/dL (11.5-15.3); Lymphocytes # 3.2 10^3/uL (0.8-4.8); Lymphocytes % 33.8 %; Mean Corpuscular HGB Conc 30.6 g/dL (30.0-36.0); Mean Corpuscular Hemoglobin 27.8 pg (28.0-34.0); Mean Corpuscular Volume 90.7 fL (81-99); Mean Platelet Volume 11.6 fL (7.4-10.4); Monocytes # 0.6 10^3/uL (0.2-0.9); Monocytes % 6.4 %; Neutrophils # 5.03 10^3/uL (1.8-7.7); Neutrophils % 53.2 %; Nucleated Red Blood Cells % 0 %; Platelet Count 217 10^3/cmm (130-400); Red Blood Count 4.86 10^6/uL (4.1-5.3); Red Cell Distribution Width 15.5 % (12.1-15.1); White Blood Count 9.4 10^3/uL (4.0-10.0)
--- NOTE | 2021-01-21 02:54 | PC.NURSE ---
ICU Arrival; Patient arrived to ICU7 via gurney and accompanied by ED staff X1 around 0150. She was on 3L NC via portable O2 tank, with SPO2 at 98%. Patient transferred to ICU bed with assistance of ICU staff X4 without incident. Belongings placed at bedside with patient. Patient skin appeared to be flushed red, and she was actively shivering throughout body, with many c/o pain in back, neck, chest and head. PRN pain medications given in efforts to decrease reported pain levels. PRN Zofran also given to decrease reports of n/v. A&O4. Patient educated on use of call light and room orientation. RN answered all questions regarding plan of care. Titration of supplemental O2 as indicated.Bed low and locked. Call light in reach.
[2021-01-21 02:57] LABS: Alanine Aminotransferase 58 U/L (0-33); Albumin Level 5.2 g/dL (3.5-5.2); Alkaline Phosphatase 54 IU/L (35-105); Anion Gap 13.2 (5-19); Aspartate Amino Transferase 79 U/L (0-32); Blood Urea Nitrogen 9 mg/dL (6-20); Calcium 8.4 mg/dL (8.5-10.5); Carbon Dioxide 26 mmol/L (22-29); Chloride 104 mmol/L (98-107); Globulin 3.2 g/dL (1.3-4.6); Glomerular Filtration Rate 38.1 mL/min (90-130); Glucose 137 mg/dL (65-115); Osmolality Calculated 289 mOsm/kg (285-295); Potassium 4.2 mmol/L (3.5-5.1); Sodium 139 mmol/L (136-145); Total Bilirubin 0.6 mg/dL (0.15-1.2); Total Protein 8.4 g/dL (6.6-8.7)
[2021-01-21 03:01] LABS: Troponin 5 6HR 6.82 ng/L (0-10)
[2021-01-21 03:03] LABS: Troponin 5 6HR Delta -0.18 ng/L (0-12)
[2021-01-21 03:05] LABS: Thyroid Stimulating Hormone 85.12 uIU/mL (0.27-4.20)
[2021-01-21 03:40] LABS: Lithium 1.2 mmol/L (0.6-1.2)
[2021-01-21] MEDS: levothyroxine 125 mcg Tablet PO (04:34)
[2021-01-21] MEDS: heparin 5,000 unit/mL INJ 1 mL 5000 UNIT SUBCUT ×3 (04:34→20:57)
[2021-01-21] MEDS: cloNIDine 0.1 mg Tablet 0.3 MG PO ×3 (07:59→20:56)
[2021-01-21] MEDS: isosorbide mononitrate ER 30 mg Tablet PO (08:00)
[2021-01-21] MEDS: FUROsemide 20 mg Tablet PO (08:00)
[2021-01-21] MEDS: ropinirole 0.25 mg Tablet PO ×3 (08:00→20:55)
[2021-01-21] MEDS: amlodipine 10 mg Tablet PO (08:00)
[2021-01-21] MEDS: HYDROcodone-acetaminophen 10-325 mg Tablet 1 TAB PO (08:28)
[2021-01-21] MEDS: carvedilol 6.25 mg Tablet PO (08:29)
[2021-01-21] MEDS: LORazepam 1 mg Tablet PO ×3 (09:41→13:30)
--- NOTE | 2021-01-21 09:42 | PC.CHAP ---
Pastoral Care Encounter/Spiritual Assessment Type of Contact [] Declined client manager visit [] Patient/Family/Request visit [] Outpatient visit [] Follow-up visit [] Physician referral [] Code/Alert [x] Routine visit [] Staff referral [] Actively dying [] Patient sleeping [] Family support [] [] Out of room [] Palliative care [] [x] Receiving care in room [] Pre-surgical visit [] Trauma [] Long length of stay [x] ICU visit [] Other: Relational/Emotional Strength [] Patient feels connected with others/family/visitors/staff [] Distress [] Loneliness/isolation [] Abandonment Spirituality of Patient [] Person of Teri [] Attends Yazidism of their Teri [] Believes in Prayer [] Reads Bible or Jehovah'S Witness materials [] There are Spiritual issues to be addressed [employer] Sprayer Interventions [x] Prayer [] Active listening [] Non-anxious presence [] Spiritual/emotional support [] Crisis/trauma care [] Spiritual counseling [] Bereavement support [] Provided bereavement packet [] Provided Bible/devotional materials [] Provided toy/stuffed animal, coloring book to patient or family member [] Provided Communion [] Anointing/[place] [] Salvation [x] Completed spiritual assessment [] Other: Impact on Illness or Injury [] Angry [] Fearful [] Anxious [] Often cries [] Exhaustion [] Unable to work [] Unable to attend cheondoism [] Unable to walk/stand [] Unable to read [] Unable to drive [] Unable to eat/drink [] Unable to sleep [] Unable to be with family [] Patient intubated [] Other: Summary Time spent with patient
[2021-01-21] MEDS: topiramate 100 mg Tablet PO (10:24)
--- NOTE | 2021-01-21 10:50 | PC.NURSE ---
24 hr. urine in progress
[2021-01-21] MEDS: diphenhydrAMINE 50 mg Capsule PO (11:20)
--- NOTE | 2021-01-21 12:00 | P.PN_ITS ---
Subjective Subjective: Interval history: History and physical was reviewed. Nina reports she has some nausea currently. She wants the rest of her medicines ordered. I reviewed and she has been taking Dilaudid 2-3 times a day scheduled, sometimes more. She does take the Ativan scheduled. We discussed the potential for withdrawal. She did not believe that was the case completed as she has not run out of any of her medications. Medications: Reviewed: Yes Vitals/I&O/Wt Last Vital Signs Temp 97.5 F L 01/21/21 10:15 Pulse 90 01/21/21 10:45 Resp 6 L 01/21/21 10:45 BP 129/111 01/21/21 10:45 Pulse Ox 94 01/21/21 08:29 01/20/21 01/21/21 01/21/21 22:59 06:59 14:59 Intake Total 1000 / 1000 922.167 / 1922.167 440 / 440 Output Total 900 / 900 500 / 500 Balance 1000 / 1000 22.167 / 1022.167 -60 / -60 Weight last 48 hrs Weight 101.151 kg Weight 101.151 kg Physical Exam Narrative: EXAM NARRATIVE: General exam is a female, who appears somewhat nauseated in no distress Neck is supple no lymphadenopathy Cardiovascular tachycardic without murmur, regular Lungs clear no wheezing or crackles Abdomen is soft with positive bowel sounds, obese Extremities no cyanosis clubbing or edema Data : 01/21/21 02:31 01/21/21 02:31 A&P Assessment and plan (1) Hypertensive emergency: Placed on nicardipine drip in the ICU on admission Blood pressure medicine continued including carvedilol, clonidine. We will increase carvedilol to 12.5 mg twice daily Continue Lasix ARB and hydrochlorothiazide on hold secondary to renal dysfunction Imdur 30 mg p.o. daily added Urine catecholamines being tested. Patient ruled out for pheochromocytoma but this has been sometime in the past. Check 5 HIAA as well. Note that renal ultrasound January 08 was normal, CTA September 20 was normal with the exception of fatty liver Status: Acute (2) SHELTON (acute kidney injury): Still present. Currently holding ARB, hydrochlorothiazide, Aldactone secondary to renal dysfunction. Recent renal ultrasound normal Status: Acute (3) Bipolar 1 disorder, depressed, mild: Restart home medications Status: Acute (4) Generalized anxiety disorder: Restart home medications in case there is a component of withdrawal Status: Acute (5) Hypothyroidism: Continue home dose of thyroid hormone. She recently had this dose increased 2 weeks ago for TSH of approximately 100. TSH should be rechecked in 4 weeks. Status: Acute Additional A&P Information Chronic pain. Restart home medicines including narcotics and muscle relaxants in case there is a component of withdrawal. Full code Heparin for DVT prophylaxis Once blood pressure is under better control, and patient is off nicardipine drip could transfer out of ICU. Attestations Medical Necessity Statement*: Needs continued hospital stay for close monitoring and treatment of hypertensive emergency Critical Care Time: The high probability of a clinically significant, sudden or life threatening deterioration of the patient's [cardiac, renal] system(s) required my full and direct attention, intervention and personal management. The critical care time is as shown. This time is in addition to time spent performing any reported procedures but includes the following: [x] Data and vital sign review and interpretation [x] Patient assessment, examination and intervention [x] Documentation [x] Medication orders and management Critical Care Time (min): 31 Coding Level of Care Code Acute Presentation Manager for Chg Fwd Diagnoses Hypertensive emergency I16.1 SHELTON (acute kidney injury) N17.9 Bipolar 1 disorder, depressed, mild F31.31 Generalized anxiety disorder F41.1 Hypothyroidism E03.9
[2021-01-21] MEDS: tizanidine 4 mg Tablet PO (12:36)
--- NOTE | 2021-01-21 13:33 | PC.NURSE ---
STATES BENADRYL HELPED ITCHING. VERY SOMULENT.
[2021-01-21] MEDS: lithium carbonate 300 mg Capsule 600 MG PO ×2 (15:10→20:56)
[2021-01-21] MEDS: sodium chloride 0.9% 1,000 ML 50 ML IV (17:51)
[2021-01-21] MEDS: carvedilol 12.5 mg Tablet PO (20:55)
[2021-01-22] VITALS (28 sets, daily range): BP systolic 90–126; BP diastolic 49–88; PULSE 61–84; RESP 10–19; TEMP 36.5–36.9; O2SAT 94–99
[2021-01-22] MEDS: heparin 5,000 unit/mL INJ 1 mL 5000 UNIT SUBCUT ×3 (03:25→18:52)
--- NOTE | 2021-01-22 04:02 | PC.NURSE ---
0345 Pt taken on portable telemetry to CSU room 105 [place] called [place] RN Pt alert and oriented on RA tolerated well
[2021-01-22] MEDS: LORazepam 1 mg Tablet PO (05:13)
[2021-01-22] MEDS: levothyroxine 175 mcg Tablet PO (05:13)
[2021-01-22 05:40] LABS: Basophils # 0.1 10^3/uL (0.0-0.1); Basophils % 1.1 %; Eosinophils # 0.4 10^3/uL (0.0-0.8); Eosinophils % 5.8 %; Hematocrit 37.9 % (37.0-47.0); Hemoglobin 11.6 g/dL (11.5-15.3); Lymphocytes # 1.7 10^3/uL (0.8-4.8); Lymphocytes % 26.7 %; Mean Corpuscular HGB Conc 30.6 g/dL (30.0-36.0); Mean Corpuscular Volume 94.8 fL (81-99); Mean Platelet Volume 11.9 fL (7.4-10.4); Monocytes # 0.5 10^3/uL (0.2-0.9); Monocytes % 7.6 %; Neutrophils # 3.59 10^3/uL (1.8-7.7); Neutrophils % 58.3 %; Nucleated Red Blood Cells % 0 %; Platelet Count 179 10^3/cmm (130-400); Red Cell Distribution Width 15.8 % (12.1-15.1); White Blood Count 6.2 10^3/uL (4.0-10.0)
[2021-01-22 06:01] LABS: Alanine Aminotransferase 135 U/L (0-33); Albumin Level 4.5 g/dL (3.5-5.2); Alkaline Phosphatase 51 IU/L (35-105); Aspartate Amino Transferase 128 U/L (0-32); Blood Urea Nitrogen 8 mg/dL (6-20); Calcium 8.2 mg/dL (8.5-10.5); Carbon Dioxide 31 mmol/L (22-29); Chloride 105 mmol/L (98-107); Globulin 2.7 g/dL (1.3-4.6); Glomerular Filtration Rate 30.9 mL/min (90-130); Glucose 104 mg/dL (65-115); Osmolality Calculated 291 mOsm/kg (285-295); Sodium 141 mmol/L (136-145); Total Bilirubin 0.6 mg/dL (0.15-1.2); Total Protein 7.2 g/dL (6.6-8.7)
[2021-01-22] MEDS: cloNIDine 0.1 mg Tablet 0.3 MG PO (07:48)
[2021-01-22] MEDS: tizanidine 4 mg Tablet PO (07:49)
[2021-01-22] MEDS: topiramate 100 mg Tablet PO (07:49)
[2021-01-22] MEDS: ropinirole 0.25 mg Tablet PO ×3 (07:49→20:12)
[2021-01-22] MEDS: pantoprazole DR 40 mg Tablet PO (07:49)
[2021-01-22] MEDS: lamoTRIgine 100 mg Tablet 200 MG PO (07:50)
--- NOTE | 2021-01-22 07:53 | PC.NURSE ---
Spoke with Dr. Fernandez this morning regarding patients blood pressure of 107/67. Received orders to hold lasix, norvasc, and imdur.
[2021-01-22] MEDS: lurasidone 20 mg Tablet 60 MG PO (09:16)
[2021-01-22] MEDS: lithium carbonate 300 mg Capsule PO (09:16)
[2021-01-22] MEDS: carvedilol 12.5 mg Tablet PO ×2 (09:16→20:12)
[2021-01-22] MEDS: sodium chloride 0.9% 500 ML 999 ML IV (09:18)
[2021-01-22 09:34] LABS: Hepatitis A Antibody IgM Non-Reactive (Nonreactive); Hepatitis B Core IgM Non-Reactive (Nonreactive); Hepatitis B Surface Antigen Non-Reactive (Nonreactive); Hepatitis C Virus Antibody Non-Reactive (Nonreactive)
--- NOTE | 2021-01-22 11:22 | PC.CHAP ---
Pastoral Care Encounter/Spiritual Assessment Type of Contact [] Declined kennel keeper visit [] Patient/Family/Request visit [] Outpatient visit [x] Follow-up visit [] Physician referral [] Code/Alert [] Routine visit [] Staff referral [] Actively dying [] Patient sleeping [] Family support [] [] Out of room [] Palliative care [] [] Receiving care in room [] Pre-surgical visit [] Trauma [] Long length of stay [] ICU visit [] Other: Relational/Emotional Strength [] Patient feels connected with others/family/visitors/staff [] Distress [] Loneliness/isolation [] Abandonment Spirituality of Patient [] Person of Teri [] Attends Nondenominational of their Teri [] Believes in Prayer [] Reads Bible or Nondenominational materials [] There are Spiritual issues to be addressed Application Support Analyst Interventions [] Prayer [] Active listening [] Non-anxious presence [] Spiritual/emotional support [] Crisis/trauma care [] Spiritual counseling [] Bereavement support [] Provided bereavement packet [] Provided Bible/devotional materials [] Provided toy/stuffed animal, coloring book to patient or family member [] Provided Communion [] Anointing/Foley [] Salvation [] Completed spiritual assessment [] Other: Impact on Illness or Injury [] Angry [] Fearful [] Anxious [] Often cries [] Exhaustion [] Unable to work [] Unable to attend caodaism [] Unable to walk/stand [] Unable to read [] Unable to drive [] Unable to eat/drink [] Unable to sleep [] Unable to be with family [] Patient intubated [] Other: Summary Follow-up visit Time spent with patient 5 mins
--- NOTE | 2021-01-22 12:24 | PC.NURSE ---
Notified physician of blood pressure of 98/49, received orders to hold clonidine and ativan 12:00pm dose.
--- NOTE | 2021-01-22 13:54 | PM.PN ---
Subjective Subjective: Interval history: Nina was somewhat sleepy this morning, but responsive. She reports she still had some pain. She got her regular medicine restarted yesterday, and blood pressure has been normal, somewhat low. I discussed with her again whether she thought any withdrawal could be happening but she assures me that she had been taking all of her narcotics muscle relaxants and anxiety medication as prescribed. Medications: Reviewed: Yes Vitals/I&O/Wt Last Vital Signs Temp 98.5 F 01/22/21 10:56 Pulse 63 01/22/21 10:56 Resp 16 01/22/21 10:56 BP 98/49 01/22/21 12:24 Pulse Ox 99 01/22/21 10:56 01/21/21 01/22/21 01/22/21 22:59 06:59 14:59 Intake Total 60 / 740 70 / 810 1100 / 1100 Balance 60 / 140 70 / 210 1100 / 1100 Weight last 48 hrs Weight 101.151 kg Weight 101.151 kg Physical Exam Narrative: EXAM NARRATIVE: General exam is a female, no distress, somewhat sleepy Neck is supple no lymphadenopathy Cardiovascular regular rate and rhythm without murmur Lungs clear no wheezing or crackles Abdomen is soft with positive bowel sounds, obese Extremities no cyanosis clubbing or edema Data : 01/22/21 05:12 01/22/21 05:12 A&P Assessment and plan (1) Hypertensive emergency: Placed on nicardipine drip in the ICU on admission Blood pressure medicine continued including carvedilol, clonidine. Carvedilol was increased to 12.5 mg twice daily ARB and hydrochlorothiazide on hold secondary to renal dysfunction Imdur 30 mg p.o. daily added Urine catecholamines being tested. Five HIAA as well will be measured. Note that renal ultrasound January 08 was normal, CTA September 20 was normal with the exception of fatty liver With reinitiation of her psychiatric medication as well as pain medicine her blood pressure is normal to low normal. This brings up the concern that she may have been withdrawing. Today her blood pressure is low enough, and she is sleepy enough I have reduced her blood pressure medication significantly and held several of her medications. She has had some worsening of her creatinine. Status: Acute (2) SHELTON (acute kidney injury): Still present. Currently holding ARB, hydrochlorothiazide, Aldactone, Lasix secondary to renal dysfunction. Recent renal ultrasound normal Fluid bolus 500 cc x 1 Increase fluids Repeat creatinine in the morning Status: Acute (3) Bipolar 1 disorder, depressed, mild: Adjust medications today, hold some medicine secondary to sleepiness Status: Acute (4) Generalized anxiety disorder: Medicines restarted, but will lower dose secondary to sleepiness Status: Acute (5) Hypothyroidism: Continue home dose of thyroid hormone. She recently had this dose increased 2 weeks ago for TSH of approximately 100. TSH should be rechecked in 4 weeks. Status: Acute Additional A&P Information Chronic pain. Medicine restarted. This is ordered as needed. Monitor for oversedation. Full code Heparin for DVT prophylaxis Attestations Medical Necessity Statement*: Needs continued hospitalization for close monitoring secondary to worsening acute kidney injury. Coding Level of Care Code Acute Prototype Special Build for Chg Fwd Diagnoses Hypertensive emergency I16.1 SHELTON (acute kidney injury) N17.9 Bipolar 1 disorder, depressed, mild F31.31 Generalized anxiety disorder F41.1 Hypothyroidism E03.9
[2021-01-22] MEDS: famotidine 20 mg Tablet PO (17:54)
[2021-01-22] MEDS: cloNIDine 0.1 mg Tablet PO (20:12)
[2021-01-22] MEDS: sodium chloride 0.9% 1,000 ML 50 ML IV (20:13)
[2021-01-23] VITALS (7 sets, daily range): BP systolic 116–160; BP diastolic 90–95; PULSE 68–77; RESP 12–18; TEMP 36.3–36.6; O2SAT 95–99
[2021-01-23] MEDS: heparin 5,000 unit/mL INJ 1 mL 5000 UNIT SUBCUT (03:17)
[2021-01-23 04:35] LABS: Anion Gap 10.3 (5-19); Blood Urea Nitrogen 8 mg/dL (6-20); Calcium 8.2 mg/dL (8.5-10.5); Carbon Dioxide 25 mmol/L (22-29); Chloride 108 mmol/L (98-107); Glomerular Filtration Rate 35.3 mL/min (90-130); Glucose 108 mg/dL (65-115); Osmolality Calculated 287 mOsm/kg (285-295); Potassium 4.3 mmol/L (3.5-5.1); Sodium 139 mmol/L (136-145)
[2021-01-23] MEDS: levothyroxine 175 mcg Tablet PO (06:00)
[2021-01-23] MEDS: sodium chloride 0.9% 1,000 ML 100 ML IV (06:10)
--- NOTE | 2021-01-23 07:35 | PM.DCS ---
Discharge Providers Date of Admission: 01/21/21 00:45 Date of Discharge: January 23, 2021 Attending Provider at Admission: Danilo Mahan MD Attending Provider at Discharge: Carlos Fernandez MD Primary Care Provider: Michelle Rico Diagnoses at Discharge Discharge Diagnosis (1) Hypertensive emergency: Status: Acute (2) SHELTON (acute kidney injury): Status: Acute (3) Bipolar 1 disorder, depressed, mild: Status: Acute (4) Generalized anxiety disorder: Status: Acute (5) Hypothyroidism: Status: Acute Reason for Visit Reason for Visit: fell tuesday, hit head,N/V, HTN,Dizzy,H/A Hospital Course Hospital Course Nina is a 40-year-old white female who presented to the hospital with markedly elevated blood pressures consistent with hypertensive urgency with chest pain, headache and nausea. She was initially placed in the ICU, on a nicardipine drip. She has a long history of hypertension with extensive work-up in the past. However, 24-hour urine for catecholamines and 5-HIAA were ordered. Recent renal studies were performed demonstrating normal kidneys so no further imaging was obtained regarding this. She had previously been sent to endocrinology for her markedly resistant hypertension and continues to follow-up with them for her hypothyroidism. While in the hospital blood pressure came down with nicardipine. However, it was not controlled. After start of her chronic pain medicine, anxiety medicine, and muscle relaxants her blood pressure decreased dramatically. Heart rate that was elevated on admission decreased dramatically as well. Blood pressure at one point was 90/65. I asked her if she had missed any of her muscle relaxant, pain medication, or anxiety medicine or the doses were different and she denied this. Acute kidney injury was present on admission, therefore diuretics and ARB were held. Throughout the rest of her hospital course she was given some fluids, blood pressure medication was adjusted, and by the end of her hospital course she was feeling well with a blood pressure of 140/90. Secondary to marked improvement of blood pressure with initiation of her chronic pain medicine, muscle relaxant, anxiety medicine raises some concern of possible withdrawal upon admission. She denies this. I have asked that she follow-up with psychiatry for her bipolar disorder. Dose of lithium on discharge was decreased secondary to renal dysfunction. She will also follow-up with her primary care provider with a BMP in 4 to 7 days. Cardiology follow-up in 1 to 2 weeks. I discussed with her that her current medication adjustments for blood pressure, including stopping her ARB and diuretics currently secondary to renal dysfunction and that she may have to have further adjustment soon as an outpatient. She acknowledges this. I discussed with her her polypharmacy, and that she may wish to pursue reducing medications under the guidance of her pain clinic physician. She acknowledges this. A chance was given to ask questions. Other studies done while in the hospital included a head CT which was negative. Troponin which was not significant. TSH was elevated but she had just had an increase in her thyroid hormone several weeks before. This will need to be checked as an outpatient and I believe endocrinology already has plans for this. Physical Exam Narrative: EXAM NARRATIVE: General exam is a conversant white female in no apparent distress Cardiovascular regular rate and rhythm without murmur Lungs clear Abdomen is soft with positive bowel sounds. No obvious organomegaly Extremities no cyanosis clubbing or edema Discharge Data Data Completed and Pending: Completed Studies During Hospitalization Category Date Time Status CT head wo con* 7 0450 Urgent Cat Scan 01/20/21 20:13 Completed XR chest 1V ren ble [id number] Stat Exams 01/20/21 20:08 Completed Pending at discharge Category Date Time Status 5-HIAA 24Hr Urine Routine Lab 01/22/21 02:00 Received Labs from last 24 hours 01/23/21 01/22/21 01/22/21 03:16 05:12 02:00 Sodium 139 Potassium 4.3 Chloride 108 H Carbon Dioxide 25 Anion Gap 10.3 BUN 8 Creatinine 1.6 H GFR Calculation 35.3 L Glucose 108 Calculated Osmolal ity 287 Calcium 8.2 L Ur 24 Hour Volume Pending Urine 5-HIAA 24 Ho ur Pending Hepatitis A IgM Ab Non-reactive Hep Bs Antigen Non-reactive Hep B Core IgM Ab Non-reactive Hepatitis C Antibo dy Non-reactive Vitals: Last Vital Signs Temp 97.8 F 01/23/21 03:30 Pulse 75 01/23/21 06:00 Resp 12 01/23/21 03:30 BP 140/91 01/23/21 03:30 Pulse Ox 99 01/23/21 03:30 Discharge Plan Discharge Patient Disposition: Home Condition: Stable Prescriptions: New carvedilol 12.5 mg Tablet 12.5 mg PO BID@0900,2100 Qty: 60 RF: 0 Continued hydromorphone 4 mg tablet 4 mg PO QID PRN (Reason: Pain) RF: 0 hydrocodone-acetaminophen 10-325 mg tablet 1 tab PO Q6H PRN (Reason: Pain) RF: 0 Probiotic Acidophilus 1.5 mg (250 million cell) capsule 1.5 mg PO DAILY@0800 RF: 0 tizanidine 4 mg capsule 4 mg PO QID@08,12,16,20 RF: 0 lorazepam [Ativan] 2 mg tablet See Rx Instructions PO .COMPLEX Qty: 60 RF: 5 Latuda 60 mg tablet 60 mg PO DAILY Qty: 30 RF: 11 pantoprazole 40 mg tablet,delayed release (DR/EC) See Rx Instructions .ROUTE .COMPLEX Qty: 60 RF: 1 clonidine HCl 0.3 mg tablet 0.3 mg PO TID@0800,1200,2000 Qty: 90 RF: 3 promethazine 25 mg tablet 25 mg PO TID PRN (Reason: nausea and vomiting) Qty: 30 RF: 0 levothyroxine 175 mcg tablet 175 mcg PO DAILY@0500 RF: 0 multivitamin Tablet 1 tab PO DAILY@0800 RF: 0 ondansetron 4 mg Tablet,Disintegrating 4 mg PO Q12H PRN (Reason: nausea/vomiting) RF: 0 lamotrigine [Lamictal] 200 mg tablet 200 mg PO DAILY@0800 RF: 0 amlodipine 10 mg tablet 10 mg PO DAILY@0800 RF: 0 topiramate 100 mg tablet 100 mg PO DAILY@0800 RF: 0 Changed lithium carbonate 600 mg capsule 600 mg PO BID Qty: 90 RF: 11 Discontinued carvedilol 6.25 mg tablet 6.25 mg PO BID Qty: 180 RF: 3 spironolactone 25 mg tablet 50 mg PO BID@0800,2000 RF: 0 losartan-hydrochlorothiazide 100-25 mg tablet 1.5 tab PO DAILY@0800 RF: 0 furosemide 20 mg tablet 20 mg PO DAILY@0800 RF: 0 Discharge Orders: Discharge Order (Routine); Ordered 01/23/21 Ordered By: Carlos Fernandez Referrals: Michelle Rico FNP [Primary Care Provider] - 4-7 days (BMP on follow-up. ) Danilo Concepcion MD [Physician] - 1 week (May also see nurse practitioner, follow-up hypertensive emergency) Gila,Jaden German, DO [Staff Physician] - 1 week (Follow-up bipolar disorder, lithium level. [place] change secondary to renal function) Discharge Diet: Advance as tolerated Discharge Activity: Increase activity as tolerated Patient Instructions: Carvedilol (By mouth), Acute Kidney Injury (DC), Chest Pain Stoplight, Opioid Safety Activity Restrictions/Additional Instructions: Take all medicine as prescribed Keep track of blood pressure and call cardiology with results as you have been doing in the past. Return for any concerns Discharge Attestations Time Spent in Discharge Care*: greater than 30 min Quality Metrics Clinical Quality Measures During this hospital stay, did patient experience: None Coding Level of Care Code Acute Chg FW DC note Diagnoses Hypertensive emergency I16.1 SHELTON (acute kidney injury) N17.9 Bipolar 1 disorder, depressed, mild F31.31 Generalized anxiety disorder F41.1 Hypothyroidism E03.9
[2021-01-23] MEDS: ropinirole 0.25 mg Tablet PO (08:52)
[2021-01-23] MEDS: lurasidone 20 mg Tablet 60 MG PO (08:52)
[2021-01-23] MEDS: lamoTRIgine 100 mg Tablet 200 MG PO (08:53)
[2021-01-23] MEDS: cloNIDine 0.1 mg Tablet 0.2 MG PO (08:53)
[2021-01-23] MEDS: famotidine 20 mg Tablet PO (08:54)
[2021-01-23] MEDS: carvedilol 12.5 mg Tablet PO (08:54)
[2021-01-23] MEDS: amlodipine 10 mg Tablet PO (08:54)
[2021-01-27 20:08] LABS: 24 Hour Urine Volume 1925 mL; 5-HIAA, 24 Hour Urine 3.5 mg/24 h (<=6.0)
== END 2021-01-23 09:20 | disposition home or self-care (01) | DRG 305 ==
LOC: ER 01-21 00:35 → ICU 01-21 01:31 → CSU 01-22 03:49
PROVIDERS: Admitting Provider Internal Medicine; Emergency Provider Student in an Organized Health Care Education/Training Program; PCP Nurse Practitioner Family; Visit Provider Internal Medicine
DX: I16.1 Hypertensive emergency (principal); N17.9 Acute kidney failure, unspecified; W10.9XXA Fall (on) (from) unspecified stairs and steps, initial encounter; N18.9 Chronic kidney disease, unspecified; I12.9 Hypertensive chronic kidney disease with stage 1 through stage 4 chronic kidney disease, or unspecified chronic kidney disease; F41.1 Generalized anxiety disorder; E89.0 Postprocedural hypothyroidism; Z98.1 Arthrodesis status; F31.9 Bipolar disorder, unspecified; G89.29 Other chronic pain; Z79.891 Long term (current) use of opiate analgesic
CPT/HCPCS: 36415; 70450; 71045; 80048; 80053; 80074; 80178; 83497; 84443; 84484; 85025; 93005; 96372; 96374; 96375; 96376; 99291; J1170; J1200; J1644; J2405; J2704; J3490; J7030; J7040; Q0163

== ENCOUNTER → 2021-01-30 08:29 | Outpatient (BNVA) | payer OTHER, SELFPAY | PROVIDERS: PCP Nurse Practitioner Family; Visit Provider Psychiatry & Neurology Psychiatry | DX: F31.76 Bipolar disorder, in full remission, most recent episode depressed (principal); F41.1 Generalized anxiety disorder; N18.9 Chronic kidney disease, unspecified; Z79.899 Other long term (current) drug therapy; I10 Essential (primary) hypertension; E03.9 Hypothyroidism, unspecified | CPT/HCPCS: 99214 ==

== ENCOUNTER → 2021-03-27 00:01 | Outpatient (BNVA) | payer OTHER, SELFPAY | PROVIDERS: PCP Nurse Practitioner Family; Visit Provider Psychiatry & Neurology Psychiatry | DX: F31.76 Bipolar disorder, in full remission, most recent episode depressed (principal); F41.1 Generalized anxiety disorder; E03.9 Hypothyroidism, unspecified; I10 Essential (primary) hypertension; Z79.899 Other long term (current) drug therapy | CPT/HCPCS: 80178 ==

== ENCOUNTER → 2021-06-05 09:14 | Outpatient (BNVA) | payer OTHER, SELFPAY | PROVIDERS: PCP Nurse Practitioner Family; Referring Provider Nurse Practitioner Family; Visit Provider Internal Medicine | DX: E03.9 Hypothyroidism, unspecified (principal); E11.9 Type 2 diabetes mellitus without complications; E78.5 Hyperlipidemia, unspecified | CPT/HCPCS: 99204 ==

== ENCOUNTER 2021-06-08 00:05 | Emergency (ER) | payer OTHER, SELFPAY ==
[2021-06-08] VITALS (39 sets, daily range): BP systolic 126–168; BP diastolic 82–118; PULSE 90–140; RESP 7–30; TEMP 36.8; O2SAT 92–98; BMI 36.9
--- NOTE | 2021-06-08 00:35 | XRR_ITS ---
PROCEDURE INFORMATION: Exam: XR Chest Exam date and time: 06/08/2021 12:35 AM Age: 41 years old Clinical indication: Pain; Chest pressure; Additional info: Tachycardia cp TECHNIQUE: Imaging protocol: XR of the chest. Views: 1 view. COMPARISON: CR XR chest 1V portable [id number] 01/20/2021 8:17 PM FINDINGS: Lungs: Unremarkable. No consolidation. Pleural spaces: Unremarkable. No pleural effusion. No pneumothorax. Heart/Mediastinum: Unremarkable. No cardiomegaly. Bones/joints: Anterior cervical fixation hardware is in place. Organs: There has been a cholecystectomy. XR/XR chest 1V portable [id number] IMPRESSION: No acute disease. Radiation Dose CTDIVOL = (mGy): DLP = (mGy-cm)
--- NOTE | 2021-06-08 00:35 | ECG_ITS ---
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 Measurements Intervals [place] Rate: 140 P: 53 NH: 137 QRS: 98 QRSD: 78 T: 23 QT: 282 QTc: 432 Interpretive Statements SINUS TACHYCARDIA BORDERLINE RIGHT AXIS DEVIATION [QRS AXIS > 90] MODERATE ST DEPRESSION [0.05+ mV ST DEPRESSION] Compared to ECG 01/20/2021 19:49:56 ST (T wave) deviation now present Myocardial infarct finding no longer present Electronically Signed On 06-08-2021 14:25:22 CDT by Rodolfo Chen M.D. [email or web address]
[2021-06-08] MEDS: metoprolol tartrate 1 mg/1 mL SDV 5 mL 5 MG IVP ×3 (00:49→12:10)
[2021-06-08] MEDS: ondansetron 2 mg/ML SDV 2 mL 4 MG IVP ×2 (00:51→01:44)
[2021-06-08] MEDS: enalaprilat 1.25 mg/mL Inj IVP (00:51)
[2021-06-08] MEDS: HYDROmorphone 1 mg/mL INJ 1 mL IVP (01:43)
--- NOTE | 2021-06-08 01:46 | ED_ITS ---
Documented by User: Jose Garcia DO 06/08/21 06:10 HPI - Chest Pain General: Chief Complaint: Chest Pain Stated Complaint: cp, abd pain, n/v Time Seen by Provider: 06/08/21 00:35 History of Present Illness: HPI narrative: 41-year-old female with a history of tachycardia and hypertension. She presents with high heart rate and high blood pressure tonight. She complained of chest discomfort, with some vomiting as well. She took her heart rate at home and it was in the 140s and 150s. Evidently her blood pressure has been hard to control of late. She notes that she took a clonidine before coming in without improvement in her blood pressure MD complaint: chest discomfort Pertinent past history: other Onset (ago): hour(s) Timing of current episode: constant Prior episodes: Yes Onset: during rest Pain location: substernal and epigastric Pain radiation: none Quality: tightness and aching Relieving factors: nothing Exacerbating factors: nothing Associated symptoms: Reports abdominal pain (Epigastric), dyspnea, nausea, palpitations and vomiting; Deny fever(s), leg edema or syncope Review of Systems Const: Denies: fever(s) Card: Reports: palpitations; Denies: syncope Resp: Reports: dyspnea GI: Reports: abdominal pain (Epigastric), nausea and vomiting PFSH ED PFSH: Medical History (Updated 06/08/21 @ 08:52 by Giorgio Newman DO) [place] (acute kidney injury) Bipolar 1 disorder Chronic back pain Chronic neck and back pain Chronic renal disease Generalized anxiety disorder Hypertensive emergency Malignant hypertension Palpitation Post traumatic stress disorder (PTSD) Surgical History H/O angioplasty H/O esophagogastroduodenoscopy (08/12/20) H/O rectal polypectomy H/O total thyroidectomy History of appendectomy History of bilateral oophorectomy 2011 History of colonoscopy with polypectomy (08/12/20) History of spinal fusion 10/01/2013- C5-6, ACDFF Dr. Villanueva History of suburethral sling procedure anterior colporrhapy augmentd with porcine graft, cystoscopy performed on 03/08/[address] Haley History of total hysterectomy 2000 Hx of cholecystectomy Status post hemilaminotomy 01/06/2012, right L5-S1, disectomy and foraminotomy per Dr. Villanueva Family History Mother Diabetes Pancreatic cancer Ovarian cancer Father Diabetes Hypertension Stroke COPD (chronic obstructive pulmonary disease) Grandfather Hypertension maternal Heart disease maternal Grandmother Colon cancer maternal Social History Smoking and tobacco status: never smoked Second hand smoke exposure: Yes Smoking risk assessment/counseling performed?: Yes Alcohol intake: never Desire information about alcohol rehabilitation?: No Counseling given: No Desire information about substance/drug rehabilitation?: No Counseling given: Yes Caregiver/support person: No Lives independently: Yes Household members: spouse Housing: House Marital status: Number of children: 8 Highest education level completed: GED or Equivalent service: No Current occupational status: unemployed History of recent travel: No Additional social history: well balanced diet Physical Exam Const: COMMON NORMALS: no acute distress, patient oriented x3 and alert GENERAL APPEARANCE: ill appearing (Mildly) NUTRITIONAL APPEARANCE: overweight ORIENTATION/CONSCIOUSNESS: Yes awake, Yes oriented to person, Yes oriented to place and Yes oriented to time HENMT: COMMON NORMALS: normocephalic HEAD & SCALP: normocephalic Eye: COMMON NORMALS: Equal, round and reactive pupils present and EOMs intact bilaterally PUPIL: Yes Equal, round and reactive pupils present Chest: COMMONS NORMALS: normal inspection of the chest Resp: COMMON NORMALS: normal respiratory effort, No use of accessory muscles and clear to auscultation bilaterally AUSCULTATION: clear to auscultation bilaterally Cardio: COMMON NORMALS: regular rhythm and Peripheral pulses 2+ throughout RATE: tachycardic RHYTHM: regular rhythm PERIPHERAL PULSES: Peripheral pulses 2+ throughout GI: COMMON NORMALS: Normal to inspection, nondistended, normoactive bowel sounds present, Soft to palpation and non-tender PALPATION: Yes Soft to palpation Neuro: COMMON NORMALS: patient oriented x3 SENSORIUM/ORIENTATION: Yes alert, Yes oriented to person, Yes oriented to place and Yes oriented to time Course Vital Signs: Vital signs: Vital Signs Temperature 98.3 F 06/08/21 00:11 Pulse Rate 90 06/08/21 12:41 Respiratory Rate 14 06/08/21 12:41 Blood Pressure 126/82 06/08/21 12:41 Pulse Oximetry 92 06/08/21 12:41 MDM - Chest Pain MDM Narrative: Medical decision making narrative: 41-year-old patient presents with chest discomfort, and upper belly discomfort. Her blood pressure is quite high on arrival. She also has a high heart rate. She has been given multiple doses of metoprolol, and 1 dose of the labetalol with some improvement in her heart rate down to around 100. She remains hypertensive at 162/98 despite the use of the above plus Vasotec IV. She has multiple complaints including itching, for which she was given Benadryl, and continued chest discomfort and epigastric discomfort despite treatment of her blood pressure. Her EKG shows sinus tachycardia without acute ST change her chest x-ray is negative. Her troponin remained 6 at 2 hours. She is given a GI cocktail for the epigastric discomfort. Her D-dimer is slightly elevated. She has been mildly hypoxic, which I suspect is due to breath-holding, will rule out pulmonary embolus as a cause of chest pain, tachycardia, and shortness of breath in this patient with a CTA. We will follow through with CT abdomen and pelvis to investigate belly pain. I also suspect rebound hypertension from use of clonidine. The patient will be checked out to Dr. Newman at shift change pending CT results Lab Data: Labs: Lab Results 06/08/21 06/08/21 06/08/21 01:43 01:43 01:43 WBC 11.0 10^3/uL H 10 ^3/uL (4.0-10.0) RBC 5.35 10^6/uL H 10 ^6/uL (4.1-5.3) Hgb 14.6 g/dL g/dL (11.5-15.3) Hct 47.9 % H % (37.0-47.0) MCV 89.5 fl fl (81-99) MCH 27.3 pg L pg (28.0-34.0) MCHC 30.5 g/dL g/dL (30.0-36.0) RDW 12.6 % % (12.1-15.1) Plt Count 252 10^3/cmm 10^3 /cmm (130-400) MPV 12.5 fL H fL (7.4-10.4) Neut % (Auto) 65.3 % % Lymph % (Auto) 24.4 % % Dixon % (Auto) 7.0 % % Eos % (Auto) 2.1 % % Baso % (Auto) 0.7 % % Neut # (Auto) 7.16 10^3/uL 10^3 /uL (1.8-7.7) Lymph # (Auto) 2.7 10^3/uL 10^3/ uL (0.8-4.8) Dixon # (Auto) 0.8 10^3/uL 10^3/ uL (0.2-0.9) Eos # (Auto) 0.2 10^3/uL 10^3/ uL (0.0-0.8) Baso # (Auto) 0.1 10^3/uL 10^3/ uL (0.0-0.1) Nucleated RBC % (a uto) 0 % % Nucleated RBCs # 0.0 /100WBC /100W BC PT 13.40 SECONDS SEC ONDS (12.1-14.9) INR 1.00 (0.8-1.2) APTT 27.8 SECONDS SECO NDS (23.9-36.7) D-Dimer 0.70 ug/mIFEU H u g/mIFEU (0-0.59) Sodium 140 mmol/L mmol/L (136-145) Potassium 3.7 mmol/L mmol/L (3.5-5.1) Chloride 103 mmol/L mmol/L (98-107) Carbon Dioxide 27 mmol/L mmol/L (22-29) Anion Gap 13.7 (5-19) BUN 8 mg/dL mg/dL (6-20) Creatinine 0.9 mg/dL mg/dL (0.5-0.9) GFR Calculation 68.3 mL/min L mL/ min (90-130) Glucose 119 mg/dL H mg/dL (65-115) Calculated Osmolal ity 289 mOsm/kg mOsm/ kg (285-295) Calcium 9.5 mg/dL mg/dL (8.5-10.5) Total Bilirubin 0.5 mg/dL mg/dL (0.15-1.2) AST 32 U/L U/L (0-32) ALT 35 U/L H U/L (0-33) Alkaline Phosphata se 51 IU/L IU/L (35-105) Creatine Kinase 52 U/L U/L (26-192) Troponin T Baselin e Troponin T 120 Min [place] Troponin T Troponin T Hi Sens 6Hr Troponin T Hi Sens 6Hr Delta NT-Pro-B Natriuret Pep 29 pg/mL pg/mL (0-125) Total Protein 8.2 g/dL g/dL (6.6-8.7) Albumin 4.5 g/dL g/dL (3.5-5.2) Globulin 3.7 g/dL g/dL (1.3-4.6) Lipase 28 U/L U/L (13-60) TSH 0.49 uIU/mL uIU/m L (0.27-4.20) [place] 06/08/21 06/08/21 06/08/21 01:43 01:43 03:38 WBC RBC Hgb Hct MCV MCH MCHC RDW Plt Count MPV Neut % (Auto) Lymph % (Auto) Dixon % (Auto) Eos % (Auto) Baso % (Auto) Neut # (Auto) Lymph # (Auto) Dixon # (Auto) Eos # (Auto) Baso # (Auto) Nucleated RBC % (a uto) Nucleated RBCs # PT INR APTT D-Dimer Sodium Potassium Chloride Carbon Dioxide Anion Gap BUN Creatinine GFR Calculation Glucose Calculated Osmolal ity Calcium Total Bilirubin AST ALT Alkaline Phosphata se Creatine Kinase Troponin T Baselin e 6 ng/L ng/L (0-10) Troponin T 120 Min [place] 6.00 ng/L ng/L (0-10) Delta Troponin T 0 ABS# ABS# (0-10) Troponin T Hi Sens 6Hr Troponin T Hi Sens 6Hr Delta NT-Pro-B Natriuret Pep Total Protein Albumin Globulin Lipase TSH [place] 0.9 mmol/L mmol/L (0.6-1.2) 06/08/21 08:24 WBC RBC Hgb Hct MCV MCH MCHC RDW Plt Count MPV Neut % (Auto) Lymph % (Auto) Dixon % (Auto) Eos % (Auto) Baso % (Auto) Neut # (Auto) Lymph # (Auto) Dixon # (Auto) Eos # (Auto) Baso # (Auto) Nucleated RBC % (a uto) Nucleated RBCs # PT INR APTT D-Dimer Sodium Potassium Chloride Carbon Dioxide Anion Gap BUN Creatinine GFR Calculation Glucose Calculated Osmolal ity Calcium Total Bilirubin AST ALT Alkaline Phosphata se Creatine Kinase Troponin T Baselin e Troponin T 120 Min [place] Troponin T Troponin T Hi Sens 6Hr 6.00 ng/L ng/L (0-10) Troponin T Hi Sens 6Hr Delta 0 ng/L ng/L (0-12) NT-Pro-B Natriuret Pep Total Protein Albumin Globulin Lipase TSH [place] Discharge Plan Discharge Patient Disposition: Home Clinical Impression: Malignant hypertension, Pulmonary embolism Chest pain Qualifiers: Chest pain type: unspecified Qualified Code(s): R07.9 - Chest pain, unspecified Condition: Stable Prescriptions: [employer] DVT-PE Treat 30D Start 5 mg (74 tabs) tablets,dose pack See Rx Instructions .ROUTE .COMPLEX Qty: 74 RF: 0 isosorbide mononitrate 60 mg tablet extended release 24 hr 60 mg PO QAM Qty: 30 RF: 0 No Action carvedilol phosphate 20 mg capsule, ER multiphase 24 hr 25 mg PO DAILY RF: 0 hydrocodone-acetaminophen 7.5-325 mg tablet 1 tab PO TID PRNRF: 0 metformin 500 mg tablet 500 mg PO BID RF: 0 hydromorphone 4 mg tablet 4 mg PO QID PRN (Reason: Pain) RF: 0 Probiotic Acidophilus 1.5 mg (250 million cell) capsule 1.5 mg PO DAILY@0800 RF: 0 tizanidine 4 mg capsule 4 mg PO QID@08,12,16,20 RF: 0 Latuda 60 mg tablet 60 mg PO DAILY Qty: 30 RF: 11 lamotrigine [Lamictal] 200 mg tablet 200 mg PO QAM Qty: 30 RF: 11 lorazepam [Ativan] 2 mg tablet See Rx Instructions PO .COMPLEX Qty: 60 RF: 5 lithium carbonate 600 mg capsule 600 mg PO BID Qty: 60 RF: 5 clonidine HCl 0.3 mg tablet 0.3 mg PO TID@0800,1200,2000 Qty: 90 RF: 3 pantoprazole 40 mg tablet,delayed release (DR/EC) See Rx Instructions .ROUTE .COMPLEX Qty: 60 RF: 1 promethazine 25 mg tablet 25 mg PO TID PRN (Reason: nausea and vomiting) Qty: 30 RF: 0 levothyroxine 175 mcg tablet 300 mcg PO DAILY@0500 RF: 0 multivitamin Tablet 1 tab PO DAILY@0800 RF: 0 ondansetron 4 mg Tablet,Disintegrating 4 mg PO Q12H PRN (Reason: nausea/vomiting) RF: 0 amlodipine 10 mg tablet 10 mg PO DAILY@0800 RF: 0 topiramate 100 mg tablet 100 mg PO DAILY@0800 RF: 0 Discharge Orders: Discharge ED (Routine); Ordered 06/08/21 Ordered By: Giorgio Newman Referrals: Michelle Rico, [facility] [Primary Care Provider] - Discharge Diet: Usual diet Discharge Activity: Limit activity as instructed Patient Instructions: Opioid Safety Activity Restrictions/Additional Instructions: Follow-up with your primary care doctor within the next 2 to 3 days return to emergency room if further problems. Sign Out Sign Out Data: Patient Sign Out occurred on 06/08/21 at 07:02. Patient's care was discussed, and care was transferred from to Giorgio Newman DO. Coding Level of Care Code ED Automatic Pad Making Machine Operator for Chg Fwd Exam Detailed Documented by User: Giorgio Newman DO 06/13/21 13:18 HPI - Chest Pain General: Chief Complaint: Chest Pain Stated Complaint: cp, abd pain, n/v Time Seen by Provider: 06/08/21 00:35 [facility] ED PFSH: Medical History (Updated 06/08/21 @ 08:52 by Giorgio Newman DO) [place] (acute kidney injury) Bipolar 1 disorder Chronic back pain Chronic neck and back pain Chronic renal disease Generalized anxiety disorder Hypertensive emergency Malignant hypertension Palpitation Post traumatic stress disorder (PTSD) Surgical History H/O angioplasty H/O esophagogastroduodenoscopy (08/12/20) H/O rectal polypectomy H/O total thyroidectomy History of appendectomy History of bilateral oophorectomy 2011 History of colonoscopy with polypectomy (08/12/20) History of spinal fusion 10/01/2013- C5-6, ACDFF Dr. Villanueva History of suburethral sling procedure anterior colporrhapy augmentd with porcine graft, cystoscopy performed on 03/08/[address] Haley History of total hysterectomy 2000 Hx of cholecystectomy Status post hemilaminotomy 01/06/2012, right L5-S1, disectomy and foraminotomy per Dr. Villanueva Family History Mother Diabetes Pancreatic cancer Ovarian cancer Father Diabetes Hypertension Stroke COPD (chronic obstructive pulmonary disease) Grandfather Hypertension maternal Heart disease maternal Grandmother Colon cancer maternal Social History Smoking and tobacco status: never smoked Second hand smoke exposure: Yes Smoking risk assessment/counseling performed?: Yes Alcohol intake: never Desire information about alcohol rehabilitation?: No Counseling given: No Desire information about substance/drug rehabilitation?: No Counseling given: Yes Caregiver/support person: No Lives independently: Yes Household members: spouse Housing: House Marital status: Number of children: 8 Highest education level completed: GED or Equivalent service: No Current occupational status: unemployed History of recent travel: No Additional social history: well balanced diet Course Vital Signs: Vital signs: Vital Signs Temperature 98.3 F 06/08/21 00:11 Pulse Rate 90 06/08/21 12:41 Respiratory Rate 14 06/08/21 12:41 Blood Pressure 126/82 06/08/21 12:41 Pulse Oximetry 92 06/08/21 12:41 MDM - Chest Pain MDM Narrative: Medical decision making narrative: Care assumed a change of shift. Patient did have a small pulmonary emboli. Fariba started on Eliquis will start on isosorbide mononitrate for blood pressure recheck blood pressure with primary care within the week. Return if has further problems. Lab Data: Labs: Lab Results 06/08/21 06/08/21 06/08/21 01:43 01:43 01:43 WBC 11.0 10^3/uL H 10 ^3/uL (4.0-10.0) RBC 5.35 10^6/uL H 10 ^6/uL (4.1-5.3) Hgb 14.6 g/dL g/dL (11.5-15.3) Hct 47.9 % H % (37.0-47.0) MCV 89.5 fl fl (81-99) MCH 27.3 pg L pg (28.0-34.0) MCHC 30.5 g/dL g/dL (30.0-36.0) RDW 12.6 % % (12.1-15.1) Plt Count 252 10^3/cmm 10^3 /cmm (130-400) MPV 12.5 fL H fL (7.4-10.4) Neut % (Auto) 65.3 % % Lymph % (Auto) 24.4 % % Dixon % (Auto) 7.0 % % Eos % (Auto) 2.1 % % Baso % (Auto) 0.7 % % Neut # (Auto) 7.16 10^3/uL 10^3 /uL (1.8-7.7) Lymph # (Auto) 2.7 10^3/uL 10^3/ uL (0.8-4.8) Dixon # (Auto) 0.8 10^3/uL 10^3/ uL (0.2-0.9) Eos # (Auto) 0.2 10^3/uL 10^3/ uL (0.0-0.8) Baso # (Auto) 0.1 10^3/uL 10^3/ uL (0.0-0.1) Nucleated RBC % (a uto) 0 % % Nucleated RBCs # 0.0 /100WBC /100W BC PT 13.40 SECONDS SEC ONDS (12.1-14.9) INR 1.00 (0.8-1.2) APTT 27.8 SECONDS SECO NDS (23.9-36.7) D-Dimer 0.70 ug/mIFEU H u g/mIFEU (0-0.59) Sodium 140 mmol/L mmol/L (136-145) Potassium 3.7 mmol/L mmol/L (3.5-5.1) Chloride 103 mmol/L mmol/L (98-107) Carbon Dioxide 27 mmol/L mmol/L (22-29) Anion Gap 13.7 (5-19) BUN 8 mg/dL mg/dL (6-20) Creatinine 0.9 mg/dL mg/dL (0.5-0.9) GFR Calculation 68.3 mL/min L mL/ min (90-130) Glucose 119 mg/dL H mg/dL (65-115) Calculated Osmolal ity 289 mOsm/kg mOsm/ kg (285-295) Calcium 9.5 mg/dL mg/dL (8.5-10.5) Total Bilirubin 0.5 mg/dL mg/dL (0.15-1.2) AST 32 U/L U/L (0-32) ALT 35 U/L H U/L (0-33) Alkaline Phosphata se 51 IU/L IU/L (35-105) Creatine Kinase 52 U/L U/L (26-192) Troponin T Baselin e Troponin T 120 Min [place] Troponin T Troponin T Hi Sens 6Hr Troponin T Hi Sens 6Hr Delta NT-Pro-B Natriuret Pep 29 pg/mL pg/mL (0-125) Total Protein 8.2 g/dL g/dL (6.6-8.7) Albumin 4.5 g/dL g/dL (3.5-5.2) Globulin 3.7 g/dL g/dL (1.3-4.6) Lipase 28 U/L U/L (13-60) TSH 0.49 uIU/mL uIU/m L (0.27-4.20) [place] 06/08/21 06/08/21 06/08/21 01:43 01:43 03:38 WBC RBC Hgb Hct MCV MCH MCHC RDW Plt Count MPV Neut % (Auto) Lymph % (Auto) Dixon % (Auto) Eos % (Auto) Baso % (Auto) Neut # (Auto) Lymph # (Auto) Dixon # (Auto) Eos # (Auto) Baso # (Auto) Nucleated RBC % (a uto) Nucleated RBCs # PT INR APTT D-Dimer Sodium Potassium Chloride Carbon Dioxide Anion Gap BUN Creatinine GFR Calculation Glucose Calculated Osmolal ity Calcium Total Bilirubin AST ALT Alkaline Phosphata se Creatine Kinase Troponin T Baselin e 6 ng/L ng/L (0-10) Troponin T 120 Min [place] 6.00 ng/L ng/L (0-10) Delta Troponin T 0 ABS# ABS# (0-10) Troponin T Hi Sens 6Hr Troponin T Hi Sens 6Hr Delta NT-Pro-B Natriuret Pep Total Protein Albumin Globulin Lipase TSH [place] 0.9 mmol/L mmol/L (0.6-1.2) 06/08/21 08:24 WBC RBC Hgb Hct MCV MCH MCHC RDW Plt Count MPV Neut % (Auto) Lymph % (Auto) Dixon % (Auto) Eos % (Auto) Baso % (Auto) Neut # (Auto) Lymph # (Auto) Dixon # (Auto) Eos # (Auto) Baso # (Auto) Nucleated RBC % (a uto) Nucleated RBCs # PT INR APTT D-Dimer Sodium Potassium Chloride Carbon Dioxide Anion Gap BUN Creatinine GFR Calculation Glucose Calculated Osmolal ity Calcium Total Bilirubin AST ALT Alkaline Phosphata se Creatine Kinase Troponin T Baselin e Troponin T 120 Min [place] Troponin T Troponin T Hi Sens 6Hr 6.00 ng/L ng/L (0-10) Troponin T Hi Sens 6Hr Delta 0 ng/L ng/L (0-12) NT-Pro-B Natriuret Pep Total Protein Albumin Globulin Lipase TSH [place] Discharge Plan Discharge Patient Disposition: Home Clinical Impression: Malignant hypertension, Pulmonary embolism Chest pain Qualifiers: Chest pain type: unspecified Qualified Code(s): R07.9 - Chest pain, unspecified Condition: Stable Prescriptions: [employer] DVT-PE Treat 30D Start 5 mg (74 tabs) tablets,dose pack See Rx Instructions .ROUTE .COMPLEX Qty: 74 RF: 0 isosorbide mononitrate 60 mg tablet extended release 24 hr 60 mg PO QAM Qty: 30 RF: 0 No Action carvedilol phosphate 20 mg capsule, ER multiphase 24 hr 25 mg PO DAILY RF: 0 hydrocodone-acetaminophen 7.5-325 mg tablet 1 tab PO TID PRNRF: 0 metformin 500 mg tablet 500 mg PO BID RF: 0 hydromorphone 4 mg tablet 4 mg PO QID PRN (Reason: Pain) RF: 0 Probiotic Acidophilus 1.5 mg (250 million cell) capsule 1.5 mg PO DAILY@0800 RF: 0 tizanidine 4 mg capsule 4 mg PO QID@08,12,16,20 RF: 0 Latuda 60 mg tablet 60 mg PO DAILY Qty: 30 RF: 11 lamotrigine [Lamictal] 200 mg tablet 200 mg PO QAM Qty: 30 RF: 11 lorazepam [Ativan] 2 mg tablet See Rx Instructions PO .COMPLEX Qty: 60 RF: 5 lithium carbonate 600 mg capsule 600 mg PO BID Qty: 60 RF: 5 clonidine HCl 0.3 mg tablet 0.3 mg PO TID@0800,1200,2000 Qty: 90 RF: 3 pantoprazole 40 mg tablet,delayed release (DR/EC) See Rx Instructions .ROUTE .COMPLEX Qty: 60 RF: 1 promethazine 25 mg tablet 25 mg PO TID PRN (Reason: nausea and vomiting) Qty: 30 RF: 0 levothyroxine 175 mcg tablet 300 mcg PO DAILY@0500 RF: 0 multivitamin Tablet 1 tab PO DAILY@0800 RF: 0 ondansetron 4 mg Tablet,Disintegrating 4 mg PO Q12H PRN (Reason: nausea/vomiting) RF: 0 amlodipine 10 mg tablet 10 mg PO DAILY@0800 RF: 0 topiramate 100 mg tablet 100 mg PO DAILY@0800 RF: 0 Discharge Orders: Discharge ED (Routine); Ordered 06/08/21 Ordered By: Giorgio Newman Referrals: Michelle Rico, [facility] [Primary Care Provider] - Discharge Diet: Usual diet Discharge Activity: Limit activity as instructed Patient Instructions: Opioid Safety Activity Restrictions/Additional Instructions: Follow-up with your primary care doctor within the next 2 to 3 days return to emergency room if further problems. Sign Out Sign Out Data: Patient Sign Out occurred on 06/08/21 at 07:02. Patient's care was discussed, and care was transferred from to Giorgio Newman DO. Coding Level of Care Code ED Automatic Pad Making Machine Operator for Ingrid Fwdiaz Exam Detailed
[2021-06-08 02:06] LABS: Basophils # 0.1 10^3/uL (0.0-0.1); Basophils % 0.7 %; Eosinophils # 0.2 10^3/uL (0.0-0.8); Eosinophils % 2.1 %; Hematocrit 47.9 % (37.0-47.0); Hemoglobin 14.6 g/dL (11.5-15.3); Lymphocytes # 2.7 10^3/uL (0.8-4.8); Lymphocytes % 24.4 %; Mean Corpuscular HGB Conc 30.5 g/dL (30.0-36.0); Mean Corpuscular Hemoglobin 27.3 pg (28.0-34.0); Mean Corpuscular Volume 89.5 fl (81-99); Mean Platelet Volume 12.5 fL (7.4-10.4); Monocytes # 0.8 10^3/uL (0.2-0.9); Neutrophils # 7.16 10^3/uL (1.8-7.7); Neutrophils % 65.3 %; Nucleated Red Blood Cells % 0 %; Platelet Count 252 10^3/cmm (130-400); Red Blood Count 5.35 10^6/uL (4.1-5.3); Red Cell Distribution Width 12.6 % (12.1-15.1)
[2021-06-08 02:15] LABS: Partial Thromboplastin Time 27.8 SECONDS (23.9-36.7)
--- NOTE | 2021-06-08 02:35 | ECG_ITS ---
[facility] Test Date: 2021-06-08 Pat Name: Nina Garcia Department: Room: Gender: Female Playground Aide: : 1980 Requested By: Jose Esqueda Order Number: [id number] Chan MD: Rodolfo Chen M.D. Measurements Intervals [place] Rate: 96 P: 55 [place]: 152 QRS: 88 QRSD: 87 T: 42 QT: 328 QTc: 414 Interpretive Statements SINUS RHYTHM Compared to ECG 06/08/2021 00:09:58 ST (T wave) deviation no longer present Electronically Signed On 06-08-2021 15:51:56 CDT by Rodolfo Chen M.D. [email or web address]
[2021-06-08 02:46] LABS: Alanine Aminotransferase 35 U/L (0-33); Albumin Level 4.5 g/dL (3.5-5.2); Alkaline Phosphatase 51 IU/L (35-105); Anion Gap 13.7 (5-19); Aspartate Amino Transferase 32 U/L (0-32); Blood Urea Nitrogen 8 mg/dL (6-20); Calcium 9.5 mg/dL (8.5-10.5); Carbon Dioxide 27 mmol/L (22-29); Chloride 103 mmol/L (98-107); Creatine Phosphokinase 52 U/L (26-192); Globulin 3.7 g/dL (1.3-4.6); Glomerular Filtration Rate 68.3 mL/min (90-130); Glucose 119 mg/dL (65-115); Lipase 28 U/L (13-60); NT Pro B Type Natriuretic Pept 29 pg/mL (0-125); Osmolality Calculated 289 mOsm/kg (285-295); Potassium 3.7 mmol/L (3.5-5.1); Sodium 140 mmol/L (136-145); Thyroid Stimulating Hormone 0.49 uIU/mL (0.27-4.20); Total Bilirubin 0.5 mg/dL (0.15-1.2); Total Protein 8.2 g/dL (6.6-8.7)
[2021-06-08 02:51] LABS: Troponin(5th) Baseline 6 ng/L (0-10)
[2021-06-08 03:03] LABS: Lithium 0.9 mmol/L (0.6-1.2)
[2021-06-08 04:14] LABS: Troponin 5 2HR Delta 0 ABS# (0-10)
[2021-06-08] MEDS: diphenhydrAMINE 50 mg/mL SDV 1mL IVP (04:42)
[2021-06-08] MEDS: labetalol 5 mg/mL SDV 20mL 20 MG IVP (04:43)
[2021-06-08] MEDS: nitroglycerin 0.4 mg sublingual Tablet SUBLINGUAL (05:19)
[2021-06-08] MEDS: lidocaine 2% viscous 15 ML, aluminum-mag hydrox-simethicon 30 ML, sucralfate oral liq 1 GM PO (05:20)
[2021-06-08] MEDS: LORazepam 2 mg/mL INJ 1 mL 1.5 MG IVP (05:24)
--- NOTE | 2021-06-08 05:34 | CT_ITS ---
WS: [id number] CTA CHEST WITH CT ABDOMEN AND PELVIS. HISTORY: Chest and abdominal pain. TECHNIQUE: CT angiogram is performed through the chest. Additional imaging is performed through the a bdomen and pelvis with IV contrast. Sagittal and coronal reformats have been submitted. MIP imaging also reviewed. All CT scans at [facility] use at least one of these dose optimization techniqu es: automated exposure control; mA and/or kV adjustment per patient size (includes targeted exams whe re dose is matched to clinical indication); or iterative reconstruction. Contrast: Omnipaque 350; 95 cc IV. DLP: 1975.66 mGy.cm COMPARISON: 09/20/2020 Chest CTA: Very good opacification of the pulmonary arteries. No central pulmonary embolism. There is a nonocclusive branching filling defect in the LEFT lower lobe segmental pulmonary artery. There is enhancement additional LEFT lower lobe branching and probably nonobstructing pulmonary emboli in the LEFT lower lobe. No additional emboli. No pneumonia, mass or infarct. No pericardial or pleural effus ion. Heart size is normal. No RIGHT heart strain. No filling defect in the atrial appendage. No adeno liam. Abdomen CT: Prior cholecystectomy. There is diffuse moderate low attenuation throughout the liver fro m hepatic steatosis. No bile duct dilatation or mass. Spleen is normal size. No bile duct dilatation. Normal pancreas and adrenal glands. No renal obstruction. Stable low-attenuation nodule in the agnieszka x of the RIGHT lower pole. Normal aorta. No ascites or adenopathy. There are a few small lymph nodes in the RIGHT lower quadrant which were also present on the prior study. Moderate fluid distention of the stomach. Mild diffuse constipation. Prior appendectomy. No evidence for diverticulitis or mucosal thickening. Pelvic CT: Prior hysterectomy. No ascites or adenopathy. Normal bladder. Both ovaries are identified and normal size. Mild scoliosis lumbar spine. No osteoblastic or osteolytic changes within the bones. CT/CT angio chest w abd pel w con IMPRESSION: 1. Short segment nonobstructing branching subsegmental pulmonary emboli LEFT l ower lobe x 2. 2. No additional emboli. 3. Normal aorta. 4. Diffuse moderate hepatic steatosis. 5. Prior cholecystectomy, hysterectomy and appendectomy. 6. No pneumonia. Notified Dr. Newman at 06/08/2021 8:49 AM.
--- NOTE | 2021-06-08 06:35 | ECG_ITS ---
[facility] Test Date: 2021-06-08 Pat Name: Nina Garcia Department: Room: Gender: Female Transferrer: : 1980 Requested By: Jose Esqueda Order Number: [id number] Dustin MD: Rodolfo Chen M.D. Measurements Intervals [place] Rate: 96 P: 55 OR: 156 QRS: 93 QRSD: 96 T: 33 QT: 339 QTc: 430 Interpretive Statements SINUS RHYTHM BORDERLINE RIGHT AXIS DEVIATION [QRS AXIS > 90] Compared to ECG 06/08/2021 06:09:05 No significant changes Electronically Signed On 06-08-2021 15:51:53 CDT by Rodolfo Chen M.D. [id number]
--- NOTE | 2021-06-08 07:46 | PC.NURSE ---
Received report from NYA Alba at 0700. Pt resting in bed on cardiac monitoring.
[2021-06-08 09:19] LABS: Troponin 5 6HR Delta 0 ng/L (0-12)
[2021-06-08] MEDS: amlodipine 10 mg Tablet PO (09:26)
[2021-06-08] MEDS: carvedilol 25 mg Tablet PO (09:26)
[2021-06-08] MEDS: enoxaparin 100 mg/mL Syringe SUBCUT (09:26)
[2021-06-08] MEDS: cloNIDine 0.1 mg Tablet 0.3 MG PO (09:26)
[2021-06-08] MEDS: HYDROcodone-acetaminophen 5-325 mg Tablet 1 TAB PO (11:22)
[2021-06-08] MEDS: LORazepam 2 mg/mL INJ 1 mL 1 MG IVP (11:24)
[2021-06-08] MEDS: isosorbide mononitrate ER 30 mg Tablet PO (12:05)
== END 2021-06-08 12:40 | disposition home or self-care (01) ==
PROVIDERS: Emergency Medicine; Emergency Provider Family Medicine; PCP Nurse Practitioner Family
DX: I26.99 Other pulmonary embolism without acute cor pulmonale (principal); R07.9 Chest pain, unspecified; I10 Essential (primary) hypertension; Z79.84 Long term (current) use of oral hypoglycemic drugs; Z77.22 Contact with and (suspected) exposure to environmental tobacco smoke (acute) (chronic)
CPT/HCPCS: 36415; 71045; 71275; 74177; 80053; 80178; 82550; 83690; 83880; 84443; 84484; 85025; 85378; 85610; 85730; 93005; 96372; 96374; 96375; 96376; 99284; J1170; J1200; J1650; J2060; J2405; J3490; Q9967

== ENCOUNTER 2021-07-03 13:33 | Outpatient (CLI) | payer OTHER, SELFPAY ==
[2021-07-03 16:37] LABS: Chol HDL Ratio 1.94 mg/dL (0.0-4.40); Cholesterol 91 mg/dL (0-200); Free T4 Free Thyroxine 3.77 ng/dL (0.82-1.77); HDL Cholesterol 47 mg/dL (60-100); LDL Cholesterol Calculated 33 mg/dL (50-129); Thyroid Stimulating Hormone 0.04 uIU/mL (0.27-4.20); Triglycerides 56 mg/dL (0-150)
== END 2021-07-03 13:34 | disposition home or self-care (01) ==
LOC: LAB 13:36
PROVIDERS: PCP Nurse Practitioner Family; Visit Provider Internal Medicine
DX: E03.9 Hypothyroidism, unspecified (principal)
CPT/HCPCS: 80061; 84439; 84443

== ENCOUNTER 2021-07-22 15:50 | Observation (INO) | payer OTHER, SELFPAY ==
[2021-07-22] VITALS (7 sets, daily range): BP systolic 133–233; BP diastolic 92–146; PULSE 115–149; RESP 17–21; TEMP 36.5–37.1; O2SAT 92–99
--- NOTE | 2021-07-22 16:00 | PC.NURSE ---
Pt arrived from [facility]. Pt oriented to room and call collazo use. VS were obtained. Physician notified of patients arrival and patients blood pressure and heart rate. Received orders to start a Cardizem gtt and give 0.2 clonidine. Nurse will continue to monitor.
[2021-07-22] MEDS: cloNIDine 0.1 mg Tablet 0.2 MG PO (16:45)
--- NOTE | 2021-07-22 17:22 | ECG_ITS ---
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 Measurements Intervals [place] Rate: 141 P: 50 TN: 141 QRS: 92 QRSD: 81 T: 24 QT: 279 QTc: 428 Interpretive Statements SINUS TACHYCARDIA, POSSIBLE ATRIAL FLUTTER BORDERLINE RIGHT AXIS DEVIATION [QRS AXIS > 90] Compared to ECG 06/08/2021 07:38:07 Sinus rhythm no longer present Electronically Signed On 07-22-2021 17:34:44 ELDERLY CAREGIVER by Rodolfo Chen M.D. [email or web address]
--- NOTE | 2021-07-22 17:22 | PC.NURSE ---
Patient having CP 02/05. EKG stat obtained.
[2021-07-22] MEDS: ondansetron 2 mg/ML SDV 2 mL 4 MG IVP ×2 (17:27→19:31)
--- NOTE | 2021-07-22 18:05 | PC.NURSE ---
Notified physician that blood pressure has still not decreased. Received orders to initiate Nitro gtt per protocol. [facility] started nitro gtt. Nurse will continue to monitor.
[2021-07-22] MEDS: nitroglycerin drip 50 MG/250 ML PREMIX 10 MG IV (18:17)
--- NOTE | 2021-07-22 18:49 | P.HP_ITS ---
Providers/Chief Complaint Admitting Physician: Danilo Concepcion MD Primary Care Provider: Michelle Rico Chief Complaint: chest pain, tachycardia History of Present Illness Nina Garcia is a 41 year old female past medical history significant for malignant hypertension anxiety diabetes mellitus hypothyroidism pulmonary embolism walked into my clinic with chest pain worsening of shortness of breath and uncontrolled blood pressure. Twelve-lead EKG showed sinus tachycardia otherwise no significant ST-T ST changes suggestive of acute coronary syndrome. Patient was shaking since she has observed very high blood pressure with shortness of breath and chest pain we decided to admit patient directly from the clinic with the diagnosis of hypertensive urgency, tachycardia and chest pain. Review of Systems Eyes: Reports: photophobia ENMT: Denies: enlarged tonsils Medications/Allergies Home Medications Medication Instructions Recorded Confirmed Last Taken Type Lactobacillus acidophilus 1.5 mg 1.5 mg PO DAILY@0800 cap 08/30/19 07/23/21 07/22/21 History (250 million cell) capsule hydromorphone 4 mg tablet 4 mg PO QID PRN tab 08/30/19 07/23/21 07/22/21 History tizanidine 4 mg capsule 4 mg PO QID@08,12,16,20 cap 08/30/19 07/23/21 07/22/21 History promethazine 25 mg PO TID PRN #30 tab 07/03/20 07/23/21 09/19/20 Rx amlodipine 10 mg PO DAILY@0800 09/19/20 07/23/21 07/22/21 History multivitamin 1 tab PO DAILY@0800 09/19/20 07/23/21 07/22/21 History ondansetron 4 mg PO Q12H PRN 09/19/20 07/23/21 07/22/21 History lurasidone 60 mg tablet 60 mg PO DAILY #30 tab 12/18/20 07/23/21 07/21/21 Rx lamotrigine 200 mg tablet 200 mg PO QAM #30 tab 01/30/21 07/23/21 07/22/21 Rx lithium carbonate 600 mg capsule 600 mg PO BID #60 cap 03/27/21 07/22/21 07/22/21 Rx pantoprazole 40 mg tablet,delayed See Rx Instructions .ROUTE 05/29/21 07/23/21 07/22/21 Rx release .COMPLEX #60 tab hydrocodone 7.5 mg-acetaminophen 1 tab PO TID PRN tab 06/05/21 07/23/21 07/22/21 History 325 mg tablet metformin 500 mg tablet 500 mg PO BID 06/05/21 07/23/21 07/22/21 History apixaban [Eliquis DVT-PE Treat 30D See Rx Instructions .ROUTE 06/08/21 07/23/21 07/22/21 Rx Start] .COMPLEX #74 ea isosorbide mononitrate 60 mg PO QAM #30 tab 06/08/21 07/23/21 07/22/21 Rx lorazepam 2 mg tablet See Rx Instructions PO .COMPLEX 07/03/21 07/23/21 07/22/21 Rx #60 tab 7.5 levothyroxine 200 mcg tablet 200 mcg PO DAILY #90 tab 07/04/21 07/23/21 07/22/21 Rx carvedilol 25 mg PO BID 07/23/21 07/23/21 Unknown History clonidine HCl 0.1 mg PO TID@0800,1200,2000 #90 07/23/21 07/23/21 07/22/21 Rx tab Allergies Allergy/AdvReac Type Severity Reaction Status Date / Time aspirin Allergy due to BUN Verified 06/08/21 00:15 levels coconut Allergy hives Verified 06/08/21 00:15 ketorolac [From Toradol] Allergy hives Verified 06/08/21 00:15 meloxicam [From Mobic] Allergy hives Verified 06/08/21 00:15 NSAIDS (Non-Steroidal Allergy Unknown Verified 06/08/21 00:15 Anti-Inflamma PFSH Acute PFSH: Medical History SHELTON (acute kidney injury) Bipolar 1 disorder Chronic back pain Chronic neck and back pain Chronic renal disease Generalized anxiety disorder Hypertensive emergency Malignant hypertension Palpitation Post traumatic stress disorder (PTSD) Psychiatric care Surgical History H/O angioplasty H/O esophagogastroduodenoscopy (08/12/20) H/O rectal polypectomy H/O total thyroidectomy History of appendectomy History of bilateral oophorectomy 2011 History of colonoscopy with polypectomy (08/12/20) History of spinal fusion 10/01/2013- C5-6, ACDFF Dr. Villanueva History of suburethral sling procedure anterior colporrhapy augmentd with porcine graft, cystoscopy performed on 03/08/[address] Haley History of total hysterectomy 2000 Hx of cholecystectomy Status post hemilaminotomy 01/06/2012, right L5-S1, disectomy and foraminotomy per Dr. Villanueva Family History Mother Diabetes Pancreatic cancer Ovarian cancer Father Diabetes Hypertension Stroke COPD (chronic obstructive pulmonary disease) Grandfather Hypertension maternal Heart disease maternal Grandmother Colon cancer maternal Social History Second hand smoke exposure: Yes Smoking risk assessment/counseling performed?: Yes Alcohol intake: never Desire information about alcohol rehabilitation?: No Counseling given: No Desire information about substance/drug rehabilitation?: No Counseling given: Yes Caregiver/support person: No Lives independently: Yes Household members: spouse Housing: House Marital status: Number of children: 8 Highest education level completed: GED or Equivalent service: No Current occupational status: unemployed History of recent travel: No Additional social history: well balanced diet Vitals/I&O/Wt Last Vital Signs Temp 98.7 F 07/22/21 16:41 Pulse 149 H 07/22/21 16:34 Resp 17 07/22/21 16:34 BP 187/146 07/22/21 16:45 Pulse Ox 99 07/22/21 16:34 07/22/21 07/22/21 07/22/21 06:59 14:59 22:59 Intake Total 6.666 / 6.666 Balance 6.666 / 6.666 Weight last 48 hrs Weight 231 lb 14.4 oz Weight 231 lb 14.4 oz Physical Exam Narrative: EXAM NARRATIVE: GENERAL: Patient is alert, awake and oriented x3. Patient appears to be shaky disturbed and disturbed NECK: No jugular vein distension. HEENT: No cyanosis. No icterus. No pallor. HEART: Regular S1 and S2. No murmur, rub or gallop. LUNGS: Clear to auscultate bilaterally. ABDOMEN: Soft, nontender and nondistended. Positive bowel sounds. No guarding, rebound or tenderness. CENTRAL NERVOUS SYSTEM: Grossly nonfocal. EXTREMITIES: Lower extremities without edema bilaterally. Data : 07/23/21 02:10 07/23/21 02:10 A&P Assessment and plan (1) Chest pain at rest: Worsening of chest pain could be multifactorial, i would like to rule out acute coronary syndrome, pulmonary embolism aortic dissection. Status: Acute (2) Tachycardia: Patient appeared to be sinus tachycardic she not feeling well at this point I will start her on Cardizem drip with also will improve her blood pressure as well. Status: Acute (3) Hypertensive urgency, malignant: I will optimize medicine and use nitroglycerin IV for now. Further plan will advise after adjusting medicine and seeing the response. Status: Acute (4) Pulmonary embolism: Continue anticoagulation we will ask for CTA to rule out pulmonary embolism and aortic dissection Status: Acute Qualifiers: Pulmonary embolism type: unspecified Chronicity: chronic Acute cor pulmonale presence: without acute cor pulmonale Qualified Code(s): I27.82 - Chronic pulmonary embolism (5) Generalized anxiety disorder: [facility] Status: Acute Attestations Medical Necessity Statement*: I am not expecting her stay to cross more than 2 midnights. Patient is under observation. Coding Level of Care Code New Pt Acute Television Schedule Coordinator for Ingrid Lindsay Patient Type New History Comprehensive Exam Comprehensive Medical Decision Making Moderate Complexity Diagnoses Chest pain at rest R07.9 Tachycardia R00.0 Hypertensive urgency, malignant I16.0 Pulmonary embolism I27.82 Pulmonary embolism type: unspecified Chronicity: chronic Acute cor pulmonale presence: without acute cor pulmonale Generalized anxiety disorder F41.1
--- NOTE | 2021-07-22 18:50 | CTR_ITS ---
PROCEDURE INFORMATION: Exam: CTA Chest Without And With Contrast Exam date and time: 07/22/2021 6:50 PM Age: 41 years old Clinical indication: Prior surgery; Surgery type: Cervical fusion. Gb. ; Patient HX: Radiating chest pain with hypertension. Currently on anticoagulants for pulmonary embolism. ; Additional info: Rule out ascending aortic dissection, pulmonary embolism, chest pain, hypertensive urgency, history of pulmonary TECHNIQUE: Imaging protocol: Computed tomographic angiography of the chest without and with contrast. 3D rendering (Not supervised by radiologist): MIP and/or 3D reconstructed images were created by the technologist. Radiation optimization: All CT scans at this facility use at least one of these dose optimization techniques: automated exposure control; mA and/or kV adjustment per patient size (includes targeted exams where dose is matched to clinical indication); or iterative reconstruction. Contrast material: OMNI 350; Contrast volume: 95 ml; Contrast route: INTRAVENOUS (IV); COMPARISON: CT angio chest w abd pel w con 06/08/2021 6:18 AM RADIATION DOSE METRICS: Total DLP (mGy-cm): 1803.36 FINDINGS: Pulmonary arteries: Normal. No pulmonary emboli. Aorta: Unremarkable. No aortic aneurysm. No aortic dissection. Great vessels off aortic arch: Normal variant common origin of the left common carotid artery and innominate artery consistent with bovine arch. Lungs: Unremarkable. No consolidation. No masses. Pleural spaces: Unremarkable. No pneumothorax. No pleural effusion. Heart: Mild calcified coronary artery disease. Lymph nodes: Unremarkable. No enlarged lymph nodes. Liver: Severe fatty infiltration of the liver. Gallbladder and bile ducts: Stable cholecystectomy. Spleen: 13.9 cm mild splenomegaly. Bones/joints: Postoperative metallic fixation of the cervical spine with or without metallic artifact. Soft tissues: Unremarkable. CT/CT angio chest [id number] IMPRESSION: 1. Severe fatty infiltration of the liver. 2. 13.9 cm mild splenomegaly. 3. Mild calcified coronary artery disease. 4. No pulmonary embolus or aortic dissection. Radiation Dose CTDIVOL = (mGy): DLP = 1803.36 (mGy-cm)
[2021-07-22] MEDS: cloNIDine 0.1 mg Tablet 0.3 MG PO (20:05)
[2021-07-22] MEDS: LORazepam 2 mg Tablet PO (20:09)
[2021-07-22] MEDS: HYDROcodone-acetaminophen 7.5-325 mg Tablet 1 TAB PO (22:22)
[2021-07-22] MEDS: promethazine 25 mg Tablet PO (23:06)
[2021-07-22] MEDS: tizanidine 4 mg Tablet PO (23:06)
[2021-07-22] MEDS: iohexol 350 mg/mL 100 mL Btl IV (23:42)
[2021-07-23] VITALS (16 sets, daily range): BP systolic 90–158; BP diastolic 55–98; PULSE 70–93; RESP 15–23; O2SAT 86–100
--- NOTE | 2021-07-23 02:56 | PC.NURSE ---
Around 2199: Patient nauseous, vomitted 2 times since administration of zofran around 1929. Notified Dr. Concepcion. Orders received. See OCT.
[2021-07-23 04:11] LABS: Basophils # 0.1 10^3/uL (0.0-0.1); Basophils % 0.7 %; Eosinophils # 0.1 10^3/uL (0.0-0.8); Eosinophils % 0.4 %; Hematocrit 39.1 % (37.0-47.0); Hemoglobin 11.7 g/dL (11.5-15.3); Lymphocytes # 2.7 10^3/uL (0.8-4.8); Lymphocytes % 19.9 %; Mean Corpuscular HGB Conc 29.9 g/dL (30.0-36.0); Mean Corpuscular Hemoglobin 26.1 pg (28.0-34.0); Mean Corpuscular Volume 87.1 fl (81-99); Mean Platelet Volume 13.3 fL (7.4-10.4); Monocytes # 0.6 10^3/uL (0.2-0.9); Monocytes % 4.6 %; Neutrophils # 9.95 10^3/uL (1.8-7.7); Neutrophils % 73.8 %; Nucleated Red Blood Cells % 0 %; Platelet Count 270 10^3/cmm (130-400); Red Blood Count 4.49 10^6/uL (4.1-5.3); Red Cell Distribution Width 13.9 % (12.1-15.1); White Blood Count 13.5 10^3/uL (4.0-10.0)
[2021-07-23 04:45] LABS: Alanine Aminotransferase 14 U/L (0-33); Albumin Level 3.9 g/dL (3.5-5.2); Alkaline Phosphatase 58 IU/L (35-105); Anion Gap 18.6 (5-19); Aspartate Amino Transferase 10 U/L (0-32); Blood Urea Nitrogen 6 mg/dL (6-20); Calcium 8.5 mg/dL (8.5-10.5); Carbon Dioxide 20 mmol/L (22-29); Chloride 103 mmol/L (98-107); Globulin 2.9 g/dL (1.3-4.6); Glomerular Filtration Rate 54.2 mL/min (90-130); Glucose 151 mg/dL (65-115); Osmolality Calculated 285 mOsm/kg (285-295); Potassium 4.6 mmol/L (3.5-5.1); Sodium 137 mmol/L (136-145); Total Bilirubin 0.4 mg/dL (0.15-1.2); Total Protein 6.8 g/dL (6.6-8.7)
[2021-07-23] MEDS: isosorbide mononitrate ER 60 mg Tablet PO (05:01)
[2021-07-23] MEDS: lamoTRIgine 100 mg Tablet 200 MG PO (05:01)
[2021-07-23 05:19] LABS: Slide Review Slide Review Perform
--- NOTE | 2021-07-23 08:47 | USCV_ITS ---
Nina Garcia Age: 41 Gender: F : 1980 Exam Date: 07/23/2021 07:51 Ordering Phys: Danilo Concepcion MD ([email or web address]) Technologist: Exam Location: [facility] [place] Indication: CHEST PAIN BP: 91 / 60 HR: 71 Rhythm: Sinus Technical Quality: Adequate MEASUREMENTS (Male / Female) Normal Values 2D ECHO LV Diastolic Diameter PLAX 4.3 cm 4.2 - 5.9 / 3.9 - 5.3 cm LV Systolic Diameter PLAX 3.1 cm IVS Diastolic Thickness 0.9 cm 0.6 - 1.0 / 0.6 - 0.9 cm IVS Systolic Thickness 1.3 cm LVPW Diastolic Thickness 1.0 cm 0.6 - 1.0 / 0.6 - 0.9 cm LVPW Systolic Thickness 1.1 cm LVOT Diameter 2.3 cm LV Ejection Fraction 2D Teich 55.6 % LV Ejection Fraction MOD 2C 67.8 % LV Ejection Fraction 2C AL 68.7 % LA Diameter 2.9 cm LA Width 3.3 cm LA Height 5.0 cm RA Width 3.6 cm RA Height 5.1 cm Aorta at Sinotubular Diameter 2.5 cm DOPPLER AV Peak Velocity 129.0 cm/s LVOT Peak Velocity 113.0 cm/s AV Area Cont Eq vti 4.1 cm squared AV Area Cont Eq pk 3.8 cm squared MV Area PHT 5.0 cm squared Mitral E to A Ratio 1.1 MV E' Velocity 48.5 cm/s Mitral E to MV E' Ratio 10.2 Mitral E to LV E' Lateral Ratio 10.1 Mitral E to LV E' Septal Ratio 10.3 TR Peak Velocity 130.0 cm/s TR Peak Gradient 6.8 mmHg TV Peak E Velocity 73.0 cm/s Right Atrial Pressure 3.0 mmHg Pulmonary Artery Systolic Pressu 9.8 mmHg FINDINGS Left Ventricle Normal left ventricular cavity size. Normal left ventricular systolic function. No regional wall motion abnormalities. Left ventricular ejection fraction is estimated at 55 %. Normal diastolic function. Right Ventricle The right ventricle is normal in size and function. Right Atrium The right atrium is normal in size. Left Atrium The left atrium is normal in size. Mitral Valve Structurally normal mitral valve without significant stenosis or prolapse. There is no mitral regurgitation. Aortic Valve Structurally normal aortic valve without significant sclerosis or stenosis. There is no aortic regurgitation. Tricuspid Valve Structurally normal tricuspid valve without significant stenosis or regurgitation. Pulmonary artery systolic pressure is normal. Pulmonic Valve Structurally normal pulmonic valve without significant stenosis. There is no pulmonic regurgitation. Pericardium Normal pericardium without effusion. Aorta Normal ascending aorta dimension. CONCLUSIONS 1-Normal left ventricular cavity size. Normal left ventricular systolic function. No regional wall motion abnormalities. Left ventricular ejection fraction is estimated at 55 %. Normal diastolic function. 2-There is no pericardial effusion. 3-No significant valve abnormalities. 4-No significant change since the prior echocardiogram study of 09/12/2014. Danilo Concepcion MD (Electronically Signed) Final Date: 23 July 2021 12:04 S
[2021-07-23] MEDS: lurasidone 20 mg Tablet 60 MG PO (09:16)
[2021-07-23] MEDS: metformin 500 mg Tablet PO (09:17)
[2021-07-23] MEDS: amlodipine 10 mg Tablet PO (09:17)
[2021-07-23] MEDS: carvedilol 25 mg Tablet PO (09:17)
[2021-07-23] MEDS: pantoprazole DR 40 mg Tablet PO (09:17)
[2021-07-23] MEDS: lithium carbonate 300 mg Capsule 600 MG PO (09:17)
[2021-07-23] MEDS: levothyroxine 200 mcg Tablet PO (09:17)
[2021-07-23] MEDS: tizanidine 4 mg Tablet PO (09:18)
[2021-07-23] MEDS: ALPRAZolam 0.5 mg Tablet 0.25 MG PO (09:25)
--- NOTE | 2021-07-23 10:00 | PC.CHAP ---
Pastoral Care Encounter/Spiritual Assessment Type of Contact [] Declined chicken hatchery helper visit [] Patient/Family/Request visit [] Outpatient visit [] Follow-up visit [] Physician referral [] Code/Alert [x] Routine visit [] Staff referral [] Actively dying [] Patient sleeping [] Family support [] [] Out of room [] Palliative care [] [x] Receiving care in room [] Pre-surgical visit [] Trauma [] Long length of stay [] ICU visit [] Other: Relational/Emotional Strength [x] Patient feels connected with others/family/visitors/staff [] Distress [] Loneliness/isolation [] Abandonment Spirituality of Patient [x] Person of Teri [x] Attends Anabaptism of their Teri [x] Believes in Prayer [x] Reads Bible or Anabaptist materials [] There are Spiritual issues to be addressed Music Video Director Interventions [x] Prayer [x] Active listening [x] Non-anxious presence [x] Spiritual/emotional support [] Crisis/trauma care [x] Spiritual counseling [] Bereavement support [] Provided bereavement packet [] Provided Bible/devotional materials [] Provided toy/stuffed animal, coloring book to patient or family member [] Provided Communion [] Anointing/[place] [] Salvation [x] Completed spiritual assessment [] Other: Impact on Illness or Injury [] Angry [] Fearful [x] Anxious [] Often cries [] Exhaustion [] Unable to work [] Unable to attend pentecostalism [] Unable to walk/stand [] Unable to read [] Unable to drive [] Unable to eat/drink [] Unable to sleep [] Unable to be with family [] Patient intubated [] Other: Summary dealing with Chest pain has had tests waiting on the doctor report feel better postive has a good attitude going home soon +1 Time spent with patient 10 mins
[2021-07-23] MEDS: ondansetron 2 mg/ML SDV 2 mL 4 MG IVP (10:21)
[2021-07-23] MEDS: promethazine 25 mg Tablet PO (10:21)
[2021-07-23] MEDS: cloNIDine 0.1 mg Tablet 0.3 MG PO (11:07)
[2021-07-23] MEDS: apixaban 5 mg Tablet PO (11:07)
[2021-07-23] MEDS: LORazepam 1 mg Tablet PO (13:24)
--- NOTE | 2021-07-23 14:37 | PM.DCS ---
Discharge Providers Date of Admission: 07/22/21 15:50 Date of Discharge: July 23, 2021 Attending Provider at Admission: Danilo Concepcion MD Attending Provider at Discharge: Danilo Concepcion MD Primary Care Provider: Michelle Rico Reason for Visit Reason for Visit: chest pain, tachycardia Hospital Course Hospital Course 41-year-old female difficult to control hypertension hyperlipidemia anxiety disorder was admitted with chest pain palpitation and hypertensive urgency. She was ruled out for acute coronary syndrome echocardiogram CTA was performed which ruled out for any wall motion abnormality on the echo, pulmonary embolism and aortic dissection over CTA. Patient was started on IV nitroglycerin Cardizem drip which controlled the heart rate she was started back on her home medicine with optimization. This morning she is feeling much better heart pressure is on the lower side, I will reduce the dose of clonidine since she is feeling much better denying any chest pain shortness of breath, we will therefore discharge the patient. Advised to keep log of blood pressure pulse and send it to us after 10 days. She has been advised to follow-up with cardiology clinic if any problem. She will be seen back in the clinic in few days. Physical Exam Narrative: EXAM NARRATIVE: GENERAL: Patient is alert, awake and oriented x3. NECK: No jugular vein distension. HEENT: No cyanosis. No icterus. No pallor. HEART: Regular S1 and S2. No murmur, rub or gallop. LUNGS: Clear to auscultate bilaterally. ABDOMEN: Soft, nontender and nondistended. Positive bowel sounds. No guarding, rebound or tenderness. CENTRAL NERVOUS SYSTEM: Grossly nonfocal. EXTREMITIES: Lower extremities without edema bilaterally. Discharge Data Data Completed and Pending: Completed Studies During Hospitalization Category Date Time Status CT angio chest [id number] Routine Cat Scan 07/22/21 18:50 Completed CV. echo complete * [id number] Routine Ultrasound 07/23/21 08:47 Completed Labs from last 24 hours 07/23/21 07/23/21 07/22/21 02:10 02:10 23:05 WBC 13.5 H RBC 4.49 Hgb 11.7 Hct 39.1 MCV 87.1 MCH 26.1 L MCHC 29.9 L RDW 13.9 Plt Count 270 MPV 13.3 H Neut % (Auto) 73.8 Lymph % (Auto) 19.9 [place] % (Auto) 4.6 Eos % (Auto) 0.4 Baso % (Auto) 0.7 Neut # (Auto) 9.95 H Lymph # (Auto) 2.7 [place] # (Auto) 0.6 Eos # (Auto) 0.1 Baso # (Auto) 0.1 Nucleated RBC % (a uto) 0 Nucleated RBCs # 0.0 Sodium 137 Cancelled Potassium 4.6 Cancelled Chloride 103 Cancelled Carbon Dioxide 20 L Cancelled Anion Gap 18.6 Cancelled BUN 6 Cancelled Creatinine 1.1 H Cancelled GFR Calculation 54.2 L Cancelled Glucose 151 H Cancelled Calculated Osmolal ity 285 Cancelled Calcium 8.5 Cancelled Total Bilirubin 0.4 Cancelled AST 10 Cancelled ALT 14 Cancelled Alkaline Phosphata se 58 Cancelled Total Protein 6.8 Cancelled Albumin 3.9 Cancelled Globulin 2.9 Cancelled Vitals: Last Vital Signs Temp 97.7 F 07/22/21 23:03 Pulse 81 07/23/21 14:00 Resp 15 07/23/21 14:00 BP 90/68 07/23/21 14:00 Pulse Ox 100 07/23/21 14:00 Discharge Plan Discharge Patient Disposition: Home Condition: Stable Prescriptions: Continued hydrocodone-acetaminophen 7.5-325 mg tablet 1 tab PO TID PRN (Reason: Pain) RF: 0 metformin 500 mg tablet 500 mg PO BID RF: 0 hydromorphone 4 mg tablet 4 mg PO QID PRN (Reason: Pain) RF: 0 Probiotic Acidophilus 1.5 mg (250 million cell) capsule 1.5 mg PO DAILY@0800 RF: 0 tizanidine 4 mg capsule 4 mg PO QID@08,12,16,20 RF: 0 Latuda 60 mg tablet 60 mg PO DAILY Qty: 30 RF: 11 lamotrigine [Lamictal] 200 mg tablet 200 mg PO QAM Qty: 30 RF: 11 lithium carbonate 600 mg capsule 600 mg PO BID Qty: 60 RF: 5 lorazepam [Ativan] 2 mg tablet See Rx Instructions PO .COMPLEX Qty: 60 RF: 5 pantoprazole 40 mg tablet,delayed release (DR/EC) See Rx Instructions .ROUTE .COMPLEX Qty: 60 RF: 1 levothyroxine [Euthyrox] 200 mcg tablet 200 mcg PO DAILY Qty: 90 RF: 3 promethazine 25 mg tablet 25 mg PO TID PRN (Reason: nausea and vomiting) Qty: 30 RF: 0 carvedilol 25 mg tablet 25 mg PO BID RF: 0 multivitamin Tablet 1 tab PO DAILY@0800 RF: 0 ondansetron 4 mg Tablet,Disintegrating 4 mg PO Q12H PRN (Reason: nausea/vomiting) RF: 0 amlodipine 10 mg tablet 10 mg PO DAILY@0800 RF: 0 Eliquis DVT-PE Treat 30D Start 5 mg (74 tabs) tablets,dose pack See Rx Instructions .ROUTE .COMPLEX Qty: 74 RF: 0 isosorbide mononitrate 60 mg tablet extended release 24 hr 60 mg PO QAM Qty: 30 RF: 0 Changed clonidine HCl 0.3 mg tablet 0.1 mg PO TID@0800,1200,2000 Qty: 90 RF: 3 Discharge Orders: Discharge Order (Routine); Ordered 07/23/21 Ordered By: Danilo Concepcion Referrals: Chula Stover FNP [Nurse Practitioner] - 1 week ([facility] will contact you to schedule an follow-up appointment in 1 week. If you haven't heard from by Tuesday afternoon. Please call ) Discharge Diet: Cardiac and Diabetic Discharge Activity: Increase activity as tolerated Patient Instructions: Hypertensive Crisis (DC), Chest Pain Stoplight Discharge Attestations Time Spent in Discharge Care*: less than 30 min Specific Discharge Activities: educating patient Quality Metrics Clinical Quality Measures During this hospital stay, did patient experience: None Coding Level of Care Code New Pt Acute Chg FW DC note Patient Type New History Detailed Exam Detailed Medical Decision Making Moderate Complexity
== END 2021-07-23 15:15 | disposition home or self-care (01) ==
PROVIDERS: Admitting Provider Internal Medicine Cardiovascular Disease; PCP Nurse Practitioner Family; Visit Provider Internal Medicine Cardiovascular Disease
DX: R07.9 Chest pain, unspecified (principal); R00.0 Tachycardia, unspecified; I16.0 Hypertensive urgency; I27.82 Chronic pulmonary embolism; F41.1 Generalized anxiety disorder; F31.9 Bipolar disorder, unspecified; F43.10 Post-traumatic stress disorder, unspecified; E78.5 Hyperlipidemia, unspecified; E11.9 Type 2 diabetes mellitus without complications; E03.9 Hypothyroidism, unspecified; Z79.84 Long term (current) use of oral hypoglycemic drugs; Z79.01 Long term (current) use of anticoagulants
CPT/HCPCS: 36415; 71275; 80053; 85025; 93005; 93306; G0378; G0379; J2405; J3490; Q0169; Q9967

== ENCOUNTER → 2021-08-13 10:39 | Outpatient (BNVA) | payer OTHER, SELFPAY | PROVIDERS: PCP Nurse Practitioner Family; Referring Provider Radiology Neuroradiology; Visit Provider Physician Assistant | DX: M54.50 Low back pain, unspecified (principal); M47.897 Other spondylosis, lumbosacral region | CPT/HCPCS: 72110 ==

== ENCOUNTER 2021-09-11 14:47 | Outpatient (CLI) | payer OTHER, SELFPAY ==
--- NOTE | 2021-09-11 14:55 | MM_ITS ---
WS: [id number] BILATERAL DIGITAL SCREENING MAMMOGRAPHY WITH CAD CLINICAL INFORMATION: SCREENING HISTORY: Screening mammogram. No current complaints. COMPARISON: TECHNIQUE: Bilateral CC and MLO views. FINDINGS: Scattered fibroglandular densities bilaterally. No suspicious focal mass, asymmetry, calcifications, or architectural distortion. No evidence of malignancy. MM/[place] [id number] IMPRESSION: BI-RADS: 1-Negative FOLLOW UP: 1 Year Follow-up Recommend return to annual screening mammography.
== END 2021-09-11 14:48 | disposition home or self-care (01) ==
LOC: RADSHAW 14:54
PROVIDERS: PCP Nurse Practitioner Family; Visit Provider Nurse Practitioner Family
DX: Z12.31 Encounter for screening mammogram for malignant neoplasm of breast (principal)
CPT/HCPCS: 77067

== ENCOUNTER 2021-09-15 09:51 | Outpatient (CLI) | payer OTHER, SELFPAY ==
[2021-09-15 10:35] LABS: Estmated Average Glucose 163; Hemoglobin A1C 7.3 % (4.0-6.0)
[2021-09-15 10:52] LABS: Anion Gap 16.5 (5-19); Blood Urea Nitrogen 9 mg/dL (6-20); Calcium 9.2 mg/dL (8.5-10.5); Carbon Dioxide 23 mmol/L (22-29); Chloride 98 mmol/L (98-107); Free T4 Free Thyroxine 3.54 ng/dL (0.82-1.77); Glomerular Filtration Rate 60.5 mL/min (90-130); Glucose 90 mg/dL (65-115); Osmolality Calculated 276 mOsm/kg (285-295); Potassium 3.5 mmol/L (3.5-5.1); Sodium 134 mmol/L (136-145); Thyroid Stimulating Hormone 0.01 uIU/mL (0.27-4.20)
== END 2021-09-15 09:52 | disposition home or self-care (01) ==
LOC: LAB 09:53
PROVIDERS: PCP Nurse Practitioner Family; Visit Provider Internal Medicine
DX: N18.9 Chronic kidney disease, unspecified (principal); E03.9 Hypothyroidism, unspecified; E11.9 Type 2 diabetes mellitus without complications
CPT/HCPCS: 36415; 80048; 83036; 84439; 84443

== ENCOUNTER 2021-10-19 10:16 | Outpatient (CLI) | payer OTHER, SELFPAY ==
[2021-10-19 12:10] LABS: Lithium 0.7 mmol/L (0.6-1.2)
[2021-10-21 15:54] LABS: Osmolality Serum 272 mOsm/kg (278-305)
== END 2021-10-19 10:17 | disposition home or self-care (01) ==
LOC: LAB 10:22
PROVIDERS: Absent Provider Internal Medicine; PCP Nurse Practitioner Family; Visit Provider Psychiatry & Neurology Psychiatry
DX: R35.89 Other polyuria (principal); Z79.899 Other long term (current) drug therapy
CPT/HCPCS: 36415; 80178; 83930

== ENCOUNTER 2021-10-21 11:31 | Outpatient (CLI) | payer OTHER, SELFPAY ==
--- NOTE | 2021-10-21 11:35 | MR_ITS ---
WS: [id number] MRI LUMBAR SPINE NONCONTRAST TECHNIQUE: Sagittal T1, T2 and STIR imaging. Axial T1 and T2 imaging. CLINICAL INFORMATION: M54.50 - Low back pain, unspecified COMPARISON: None. FINDINGS: Mild lumbar curve. No acute compression. No high-grade central canal stenosis. L1-L2: Normal. L2-L3: Normal. L3-L4: Minimal annular bulging. Slight effacement of ventral thecal sac. Spinal canal and foramen are patent. Mild facet arthropathy. L4-L5: Minimal annular bulging. Small RIGHT foraminal protrusion slightly contacts the exiting RIGHT L4 nerve root. Mild to moderate RIGHT foraminal narrowing. LEFT foramen is patent. Moderate facet art hropathy with ligamentum flavum hypertrophy. Mild central canal stenosis. L5-S1: Mild disc bulging with osteophytic ridging. RIGHT eccentric disc bulging with mild RIGHT janie inal narrowing. Slight narrowing of the RIGHT subarticular recess. LEFT foramen is patent. Mild facet arthropathy. Prior RIGHT hemilaminectomy. Visualized pelvic bony structures: Normal. Paravertebral soft tissues: Normal. Mild central canal stenosis L4-L5 has progressed slightly compared to previous. Otherwise no signific ant interval changes. MR/MR lumbar spine wo con* [id number] IMPRESSION: 1. Mild lumbar curve. No acute compression. No high-grade central canal stenos is. 2. Mild central canal stenosis L4-L5 due to mild disc bulging and osteophytic ridging. 3. Small RIGHT foraminal protrusion L4-L5 with slight contact of the exiting R IGHT L4 nerve root. Recommend correlation RIGHT L4 nerve root symptoms. 4. RIGHT eccentric disc osteophyte complex L5-S1 with slight contact of the ex iting RIGHT L5 nerve root. Mild narrowing of the RIGHT subarticular recess at t his level. 5. Moderate facet arthropathy L4-L5.
[2021-10-21 12:09] LABS: Sodium, Urine Result 41 mmol/L; Urine Potassium 24 Hour 11 mmol/24H (25-125)
[2021-10-21 12:12] LABS: Potassium, Urine Result 47 mmol/L; Total Volume, Urine 4250 mL
[2021-10-22 13:07] LABS: Osmolality Urine 156 mOsm/kg (50-1200)
== END 2021-10-21 11:32 | disposition home or self-care (01) ==
PROVIDERS: PCP Nurse Practitioner Family; Referring Provider Psychiatry & Neurology Psychiatry; Visit Provider Physician Assistant
DX: M79.604 Pain in right leg (principal); R35.89 Other polyuria; Z79.899 Other long term (current) drug therapy; M47.816 Spondylosis without myelopathy or radiculopathy, lumbar region; M25.78 Osteophyte, vertebrae; M51.26 Other intervertebral disc displacement, lumbar region
CPT/HCPCS: 72148; 83935; 84133; 84300

== ENCOUNTER 2021-11-09 15:12 | Outpatient (CLI) | payer OTHER, SELFPAY ==
--- NOTE | 2021-11-09 15:22 | XR_ITS ---
WS: [id number] Chest 2 views, 11/09/2021 Clinical Data: COUGH (ICD-RO5.8)(ICD 10-R05.8) Comparison: Portable chest, 06/08/2021. Findings: No nodules, masses or effusions are seen. The heart is normal. The pulmonary vascularity is not increased. No pneumonia or pneumothorax is seen. There is an anterior cervical disc fusion. Ther e are clips in the upper abdomen from a cholecystectomy. XR/XR chest 2V* [id number] Impression: Negative chest.
== END 2021-11-09 15:13 | disposition home or self-care (01) ==
PROVIDERS: PCP Nurse Practitioner Family; Visit Provider Nurse Practitioner Family
DX: R05.9 Cough, unspecified (principal)
CPT/HCPCS: 71046

== ENCOUNTER → 2021-12-01 09:41 | Outpatient (BNVA) | payer OTHER, SELFPAY | PROVIDERS: PCP Nurse Practitioner Family; Visit Provider Orthopaedic Surgery | DX: M54.50 Low back pain, unspecified (principal); M79.604 Pain in right leg; M51.36 Other intervertebral disc degeneration, lumbar region; Z98.890 Other specified postprocedural states; M47.818 Spondylosis without myelopathy or radiculopathy, sacral and sacrococcygeal region | CPT/HCPCS: 72100 ==

== ENCOUNTER 2021-12-09 05:24 | Inpatient (IN) | payer OTHER, SELFPAY ==
[2021-12-09] VITALS (39 sets, daily range): BP systolic 81–204; BP diastolic 44–126; PULSE 68–133; RESP 16–20; TEMP 36.9–37.1; O2SAT 90–99; BMI 37.3
--- NOTE | 2021-12-09 05:42 | W.ED.NAVMDI ---
HPI - Nausea/Vomiting/Diarrhea General: Chief complaint: Nausea/Vomiting/Diarrhea Stated complaint: BP high N/V Time Seen by Provider: 12/09/21 05:38 Source: patient Mode of arrival: ambulatory Limitations: no limitations History of Present Illness: 38-year-old female presents emergency room with nausea vomiting and 3:00 yesterday is persisted she cannot keep any of her medicines on her blood pressure is markedly elevated now she usually takes lithium as well as scheduled narcotics not we will take any of those nor any of her carvedilol or clonidine appears to be having some rebound hypertension. She denies any chest pain. MD elicited complaint: nausea and vomiting Onset (ago): hour(s) Description of vomiting: watery Associated nausea: Yes Associated abdominal pain: Yes Location of pain: Diffuse Pain consistency: constant Severity: moderate Quality: cramping Exacerbating factors: eating Relieving factors: none Associated symtoms: Reports anxiety, cough, fatigue, headache(s), anorexia, malaise, nausea and weakness; Denies altered mental status, bloating, change in vision, chest pain, diaphoresis, decreased urine output, dizziness, dysuria, epistaxis, fecal incontinence, fevers/chills, myalgias, numbness, palpitations, rash, short of breath, syncope, tenesmus or tinnitus Review of Systems Const: Reports: change in appetite, fatigue and malaise; Denies: fever(s), chills, body aches or diaphoresis Eyes: Denies: change in vision ENMT: Denies: tinnitus or epistaxis Card: Denies: chest pain, palpitations or syncope Resp: Denies: dyspnea, productive cough or non-productive cough GI: Reports: nausea; Denies: bloating or fecal incontinence : Denies: dysuria Skin/Breast: Denies: rash or pruritus Neuro: Reports: headache(s); Denies: dizziness Psych: Reports: anxiety PFSH ED PFSH: Medical History SHELTON (acute kidney injury) Bipolar 1 disorder Bipolar 1 disorder, depressed, full remission Chest pain at rest Chronic back pain Chronic neck and back pain Chronic renal disease DM2 (diabetes mellitus, type 2) Generalized anxiety disorder HLD (hyperlipidemia) Hypertensive emergency Hypothyroidism Hypothyroidism Malignant hypertension Palpitation Post traumatic stress disorder (PTSD) Psychiatric care Pulmonary embolism Surgical History H/O angioplasty H/O esophagogastroduodenoscopy (08/12/20) H/O rectal polypectomy H/O total thyroidectomy History of appendectomy History of bilateral oophorectomy 2011 History of colonoscopy with polypectomy (08/12/20) History of spinal fusion 10/01/2013- C5-6, ACDFF Dr. Villanueva History of suburethral sling procedure anterior colporrhapy augmentd with porcine graft, cystoscopy performed on 03/08/[address] Haley History of total hysterectomy 2000 Hx of cholecystectomy Status post hemilaminotomy 01/06/2012, right L5-S1, disectomy and foraminotomy per Dr. Villanueva Family History Mother Diabetes Pancreatic cancer Ovarian cancer Father Diabetes Hypertension Stroke COPD (chronic obstructive pulmonary disease) Grandfather Hypertension maternal Heart disease maternal Grandmother Colon cancer maternal Social History Smoking and tobacco status: never smoked Second hand smoke exposure: Yes Smoking risk assessment/counseling performed?: Yes Alcohol intake: never Desire information about alcohol rehabilitation?: No Counseling given: No Desire information about substance/drug rehabilitation?: No Counseling given: Yes Caregiver/support person: No Lives independently: Yes Household members: spouse Housing: House Marital status: Number of children: 8 Highest education level completed: GED or Equivalent service: No Current occupational status: unemployed History of recent travel: No Additional social history: well balanced diet Physical Exam Const: EXAM LIMITATIONS: no altered mental status ORIENTATION/CONSCIOUSNESS: Yes awake, Yes oriented to person, Yes oriented to place and Yes oriented to time HENMT: COMMON NORMALS: normocephalic and atraumatic HEAD & SCALP: normocephalic and atraumatic Eye: COMMON NORMALS: Equal, round and reactive pupils present, EOMs intact bilaterally, conjunctivae normal and no scleral icterus CONJUNCTIVA: Yes conjunctivae normal PUPIL: Yes Equal, round and reactive pupils present Neck/C-Spine: COMMON NORMALS: no JVD Resp: COMMON NORMALS: normal respiratory effort, No retractions, No use of accessory muscles and clear to auscultation bilaterally AUSCULTATION: clear to auscultation bilaterally Cardio: COMMON NORMALS: no JVD, regular rate, regular rhythm and No murmurs present (Cardio) RATE: regular rate RHYTHM: regular rhythm GI: COMMON NORMALS: No hepatosplenomegaly present AUSCULTATION: Yes normoactive bowel sounds PALPATION: Yes Tenderness to palpation present (GI) (Epigastric), No Guarding due to palpation present (GI) and Yes No hepatosplenomegaly present : COMMON NORMALS: No no CVA tenderness BLADDER/KIDNEY EXAM: No no CVA tenderness Back/Pelvis: COMMON NORMALS: negative for no CVA tenderness Extremity: COMMON NORMALS: normal to inspection, capillary refill normal, no clubbing, cyanosis or edema, no calf tenderness and no pedal edema Neuro: SENSORIUM/ORIENTATION: Yes oriented to person, Yes oriented to place and Yes oriented to time Skin: COMMON NORMALS: no rashes or lesions noted GENERAL SKIN EXAM: no rashes or lesions noted Course Vital Signs: Vital signs: Vital Signs Temperature 98.8 F 12/09/21 05:30 Pulse Rate 85 12/09/21 10:09 Respiratory Rate 16 12/09/21 09:50 Blood Pressure 204/107 12/09/21 10:09 Pulse Oximetry 96 12/09/21 10:09 MDM - Nausea/Vomiting/Diarrhea Medical Decision Making Despite multiple medicines patient's blood pressure improving added Cardene and titrated up will admit to the ICU you for accelerated hypertension. Think you may be some aspect of withdrawal the narcotics as well as rebound hypertension on the beta-pepe and clonidine. Discussed the hospitalist orders written. We did give some IV narcotics while in the emergency room with no significant improvement. Medical Records I reviewed the patient's medical records. Lab Data I reviewed the patient's lab results. : 12/09/21 05:50 12/09/21 05:50 Radiology Impressions Chest X-Ray 12/09/21 07:19 IMPRESSION: Lungs are well aerated without a focal area of consolidation. Head CT 12/09/21 08:58 IMPRESSION: Negative head CT. Laboratory Results WBC 12.0 10^3/uL (4.0-10.0) H 12/09/21 05:50 RBC 5.57 10^6/uL (4.1-5.3) H 12/09/21 05:50 Hgb 14.7 g/dL (11.5-15.3) 12/09/21 05:50 Hct 46.7 % (37.0-47.0) 12/09/21 05:50 MCV 83.8 fl (81-99) 12/09/21 05:50 MCH 26.4 pg (28.0-34.0) L 12/09/21 05:50 MCHC 31.5 g/dL (30.0-36.0) 12/09/21 05:50 RDW 15.8 % (12.1-15.1) H 12/09/21 05:50 Plt Count 247 10^3/cmm (130-400) 12/09/21 05:50 MPV 12.1 fL (7.4-10.4) H 12/09/21 05:50 Neut % (Auto) 85.2 % 12/09/21 05:50 Lymph % (Auto) 8.9 % 12/09/21 05:50 [place] % (Auto) 4.6 % 12/09/21 05:50 Eos % (Auto) 0.3 % 12/09/21 05:50 Baso % (Auto) 0.6 % 12/09/21 05:50 Neut # (Auto) 10.19 10^3/uL (1.8-7.7) H 12/09/21 05:50 Lymph # (Auto) 1.1 10^3/uL (0.8-4.8) 12/09/21 05:50 [place] # (Auto) 0.6 10^3/uL (0.2-0.9) 12/09/21 05:50 Eos # (Auto) 0.0 10^3/uL (0.0-0.8) 12/09/21 05:50 Baso # (Auto) 0.1 10^3/uL (0.0-0.1) 12/09/21 05:50 Nucleated RBC % (auto) 0 % 12/09/21 05:50 Nucleated RBCs # 0.0 /100WBC 12/09/21 05:50 Sodium 139 mmol/L (136-145) 12/09/21 05:50 Potassium 3.6 mmol/L (3.5-5.1) 12/09/21 05:50 Chloride 98 mmol/L (98-107) 12/09/21 05:50 Carbon Dioxide 23 mmol/L (22-29) 12/09/21 05:50 Anion Gap 21.6 (5-19) H 12/09/21 05:50 BUN 7 mg/dL (6-20) 12/09/21 05:50 Creatinine 1.4 mg/dL (0.5-0.9) H 12/09/21 05:50 GFR Calculation 41.0 mL/min (90-130) L 12/09/21 05:50 Glucose 183 mg/dL (65-115) H 12/09/21 05:50 POC Glucose 171 mg/dL (70-110) H 12/09/21 05:56 Calculated Osmolality 291 mOsm/kg (285-295) 12/09/21 05:50 Lactic Acid 2.3 mmol/L (0.5-2.2) H 12/09/21 08:17 Calcium 10.3 mg/dL (8.5-10.5) 12/09/21 05:50 Total Bilirubin 0.7 mg/dL (0.15-1.2) 12/09/21 05:50 AST 18 U/L (0-32) 12/09/21 05:50 ALT 17 U/L (0-33) 12/09/21 05:50 Alkaline Phosphatase 72 IU/L (35-105) 12/09/21 05:50 Total Protein 8.5 g/dL (6.6-8.7) 12/09/21 05:50 Albumin 5.0 g/dL (3.5-5.2) 12/09/21 05:50 Globulin 3.5 g/dL (1.3-4.6) 12/09/21 05:50 Urine Color Dark yellow (Yellow) 12/09/21 06:30 Urine Appearance Clear (CLEAR) 12/09/21 06:30 Urine pH 5 (5-7) 12/09/21 06:30 Ur Specific [place] 1.020 (1.005-1.030) 12/09/21 06:30 Urine Protein Trace (Negative) 12/09/21 06:30 Urine Glucose (UA) Norm (Normal) 12/09/21 06:30 Urine Ketones 2+ (Negative) H 12/09/21 06:30 Urine Blood 2+ (Negative) H 12/09/21 06:30 Urine Nitrate Negative (Negative) 12/09/21 06:30 Urine Bilirubin 1+ (Negative) H 12/09/21 06:30 Urine Urobilinogen 4 mg/dL (Negative) H 12/09/21 06:30 Ur Leukocyte Esterase Negative (Negative) 12/09/21 06:30 Urine RBC Rare /hpf (0-2) 12/09/21 06:30 Urine WBC 0-4 /hpf (0-5) H 12/09/21 06:30 Ur Squamous Epith Cells 0-4 /hpf (0-5) H 12/09/21 06:30 Amorphous Sediment Not Reportable 12/09/21 06:30 Urine Bacteria 1+ /hpf (NONE) H 12/09/21 06:30 Urine Mucus 1+ /hpf 12/09/21 06:30 Urine Opiates Screen Positive ng/mL (Negative) H 12/09/21 06:30 Ur Barbiturates Screen Negative ng/mL (Negative) 12/09/21 06:30 Ur Phencyclidine Scrn Negative ng/mL (Negative) 12/09/21 06:30 Ur Amphetamines Screen Negative ng/mL (Negative) 12/09/21 06:30 U Benzodiazepines Scrn Positive ng/mL (Negative) H 12/09/21 06:30 [place] 0.2 mmol/L (0.6-1.2) L 12/09/21 05:50 Urine Cocaine Screen Negative ng/mL (Negative) 12/09/21 06:30 U Marijuana (THC) Screen Negative ng/mL (Negative) 12/09/21 06:30 Discharge Plan Discharge Patient Disposition: Admitted As Inpatient Admit Provider: Carlos Fernandez Clinical Impression: Generalized anxiety disorder, Palpitation, DM2 (diabetes mellitus, type 2), Hypertensive urgency, malignant, Hypothyroid, CKD (chronic kidney disease), Nausea & vomiting Condition: Stable Coding Level of Care Code ED [employer] Librarian for Ingrid Lindsay
--- NOTE | 2021-12-09 05:57 | ECG_ITS ---
[facility] Test Date: 2021-12-09 Pat Name: Nina Garcia Department: Room: Gender: Female Risk Intern: : 1980 Requested By: Giorgio Jackman Order Number: [id number] Dustin MD: Reese Meraz M.D. Measurements Intervals [place] Rate: 81 P: 26 NM: 148 QRS: 104 QRSD: 97 T: 44 QT: 339 QTc: 395 Interpretive Statements SINUS RHYTHM WITH SINUS ARRHYTHMIA POSSIBLE RIGHT VENTRICULAR HYPERTROPHY [SOME/ALL OF: PROMINENT R IN V1, LATE TRANSITION, RAD, VANI, SSS] Compared to ECG 07/22/2021 17:24:02 No significant changes Electronically Signed On 12-09-2021 23:16:38 CDT by Reese Meraz M.D. [id number]
[2021-12-09] MEDS: ondansetron 2 mg/ML SDV 2 mL 4 MG IVP ×2 (06:06→06:41)
[2021-12-09 06:09] LABS: Glucose Point of Care 171 mg/dL (70-110)
[2021-12-09] MEDS: metoprolol tartrate 1 mg/1 mL SDV 5 mL 5 MG IVP ×4 (06:10→17:37)
[2021-12-09 06:11] LABS: Basophils # 0.1 10^3/uL (0.0-0.1); Basophils % 0.6 %; Eosinophils % 0.3 %; Hematocrit 46.7 % (37.0-47.0); Hemoglobin 14.7 g/dL (11.5-15.3); Lymphocytes # 1.1 10^3/uL (0.8-4.8); Lymphocytes % 8.9 %; Mean Corpuscular HGB Conc 31.5 g/dL (30.0-36.0); Mean Corpuscular Hemoglobin 26.4 pg (28.0-34.0); Mean Corpuscular Volume 83.8 fl (81-99); Mean Platelet Volume 12.1 fL (7.4-10.4); Monocytes # 0.6 10^3/uL (0.2-0.9); Monocytes % 4.6 %; Neutrophils # 10.19 10^3/uL (1.8-7.7); Neutrophils % 85.2 %; Nucleated Red Blood Cells % 0 %; Platelet Count 247 10^3/cmm (130-400); Red Blood Count 5.57 10^6/uL (4.1-5.3); Red Cell Distribution Width 15.8 % (12.1-15.1)
[2021-12-09] MEDS: enalaprilat 1.25 mg/mL Inj IVP (06:13)
[2021-12-09] MEDS: lactated ringers 1,000 ML 999 ML IV (06:14)
[2021-12-09] MEDS: promethazine 25 mg/mL SDV 1 mL IM (06:20)
[2021-12-09 06:26] LABS: Alanine Aminotransferase 17 U/L (0-33); Alkaline Phosphatase 72 IU/L (35-105); Anion Gap 21.6 (5-19); Aspartate Amino Transferase 18 U/L (0-32); Blood Urea Nitrogen 7 mg/dL (6-20); Calcium 10.3 mg/dL (8.5-10.5); Carbon Dioxide 23 mmol/L (22-29); Chloride 98 mmol/L (98-107); Globulin 3.5 g/dL (1.3-4.6); Glucose 183 mg/dL (65-115); Osmolality Calculated 291 mOsm/kg (285-295); Potassium 3.6 mmol/L (3.5-5.1); Sodium 139 mmol/L (136-145); Total Bilirubin 0.7 mg/dL (0.15-1.2); Total Protein 8.5 g/dL (6.6-8.7)
[2021-12-09 07:05] LABS: Lithium 0.2 mmol/L (0.6-1.2)
[2021-12-09 07:12] LABS: Add Urine Microscopic? YES; Bacteria Urine 1+ /hpf; Bilirubin Urine 1+ (Negative); Blood Urine 2+ (Negative); Glucose Urine UA Norm (Normal); Ketones Urine 2+ (Negative); Leukocyte Esterase Urine Negative (Negative); Mucus Urine 1+ /hpf; Nitrate Urine Negative (Negative); Protein Urine Trace (Negative); RBC Urine RARE /hpf (0-2); Squamous Epithelial Cell Urine 0-4 /hpf (0-5); Urine Appearance Clear (CLEAR); Urine Color Dark Yellow (Yellow); Urobilinogen Urine 4 mg/dL (Negative); WBC Urine 0-4 /hpf (0-5); pH Urine 5 (5-7)
[2021-12-09 07:13] LABS: Add Urine Culture? No
--- NOTE | 2021-12-09 07:19 | XRR_ITS ---
PROCEDURE INFORMATION: Exam: XR Chest Exam date and time: 12/09/2021 7:23 AM Age: 41 years old Clinical indication: Dyspnea; Patient HX: SOB since yesteday; Additional info: Cough TECHNIQUE: Imaging protocol: XR of the chest. Views: 1 view. COMPARISON: CR XR chest 2V* [id number] 11/09/2021 3:36 PM FINDINGS: Lungs: Lungs are well aerated without a focal area of consolidation. Pleural spaces: Unremarkable. No pleural effusion. No pneumothorax. Heart/Mediastinum: Unremarkable. No cardiomegaly. Bones/joints: Prior surgical fixation of the caudal aspect of the cervical spine. XR/XR chest 1V portable [id number] IMPRESSION: Lungs are well aerated without a focal area of consolidation.
[2021-12-09] MEDS: LORazepam 2 mg/mL INJ 1 mL IVP (07:47)
[2021-12-09] MEDS: labetalol 5 mg/mL SDV 20mL 10 MG IVP (08:36)
[2021-12-09 08:37] LABS: Lactic Sepsis W/Reflex 2.3 mmol/L (0.5-2.2)
[2021-12-09] MEDS: nicardipine 20 MG/200 ML PREMIX 5 MG IV (08:45)
--- NOTE | 2021-12-09 08:58 | CT_ITS ---
WS: [id number] CT HEAD NONCONTRAST HISTORY: headache persistent n/v, accelerate htn TECHNIQUE: Contiguous axial imaging performed through the brain in 2.5 mm imaging. Bone and soft tiss ue windows. Sagittal and coronal reformats reviewed. All CT scans at [facility] use at least one of these dose optimization techniques: automated exposure control; mA and/or kV adjustment per pa tient size (includes targeted exams where dose is matched to clinical indication); or iterative recon struction. DLP: 588.22 mGy.cm COMPARISON: 01/20/2021 No acute intracranial hemorrhage, midline shift or mass effect. No atrophy or prior infarcts or herniation. Ventricles: Normal size with no hydrocephalus. Paranasal sinuses: As visualized are clear. Mastoid air cells: Well pneumatized. Calvarium and scalp: Skull is intact with no soft tissue edema or swelling. CT/CT head wo con* [id number] IMPRESSION: Negative head CT.
[2021-12-09] MEDS: HYDROmorphone 1 mg/mL INJ 1 mL 0.5 MG IVP (09:12)
[2021-12-09] MEDS: orphenadrine 30 mg/mL Inj 2 mL 60 MG IVP (09:12)
--- NOTE | 2021-12-09 09:14 | PC.PHAR ---
pt states she takes care of her own medications-pt states she is no longer taking eliquis 5mg bid last filled 07/11/21 30d/s-
[2021-12-09 10:07] LABS: Reflex Lactate Order REFLEX LACTIC ORDERD
--- NOTE | 2021-12-09 10:40 | P.HP_ITS ---
Providers/Chief Complaint Admitting Physician: Carlos Fernandez MD Primary Care Provider: Michelle Rico Chief Complaint: BP high N/V History of Present Illness Nina Garcia is a 41 year old female who presented to the emergency department with complaints of nausea, vomiting, and elevated blood pressure. She has had this happen on occasion, requiring hospital stay. Last hospitalization was July 22 when she was hospitalized by Dr. Concepcion. At that time she was placed on IV nitroglycerin and Cardizem drip, home medicine was restarted optimized, and she was ultimately sent home. She reports vomiting started occurring around 3:00 yesterday and she has not been able to keep any of her medicines down. She reports headache, vomiting. She denies any diarrhea. She has no chest discomfort. She is not short of breath. She has some abdominal pain, central. She has not had any fever at home. She reports after vomiting multiple times, she had a little bit of blood in her emesis that was dark. She has had an extensive work-up for elevated blood pressure in the past. Review of Systems General: Reports: 10 or more systems reviewed and unremarkable except in HPI and below Const: Reports: fatigue and malaise; Denies: fever(s) or chills Eyes: Denies: change in vision ENMT: Denies: throat pain Card: Reports: other (Elevated blood pressure); Denies: chest pain Resp: Denies: dyspnea GI: Reports: abdominal pain, nausea, vomiting and coffee ground emesis : Denies: flank pain Musc: Denies: neck pain Skin/Breast: Denies: rash Neuro: Reports: headache(s) Psych: Denies: anxiety or depression Endo: Denies: polyuria [place]/Lymph: Denies: easy bruising All/Imm: Denies: urticaria Medications/Allergies Home Medications Medication Instructions Recorded Confirmed Last Taken Type hydromorphone 4 mg tablet 4 mg PO QID PRN tab 08/30/19 12/09/21 07/22/21 History metformin 500 mg tablet 500 mg PO BID 06/05/21 12/09/21 07/22/21 History carvedilol 25 mg tablet 25 mg PO BID 07/23/21 12/09/21 Unknown History furosemide 20 mg tablet 20 mg PO DAILY #90 tab 07/30/21 12/09/21 Unknown Rx hydrocodone 5 mg-acetaminophen 325 1 - 2 tab PO Q6H PRN 08/10/21 12/09/21 Unknown History mg tablet lamotrigine 200 mg tablet 200 mg PO QAM #30 tab 11/16/21 12/09/21 Unknown Rx (Lamictal) lithium carbonate 600 mg capsule 600 mg PO BID #60 cap 11/16/21 12/09/21 Unknown Rx lorazepam 2 mg tablet (Ativan) See Rx Instructions PO .COMPLEX 11/16/21 12/09/21 Unknown Rx #60 tab lurasidone 60 mg tablet (Latuda) 60 mg PO DAILY #30 tab 11/16/21 12/09/21 Unknown Rx clonidine HCl 0.3 mg tablet 0.3 mg PO TID@0800,1200,2000 tab 11/18/21 12/09/21 Unknown History diltiazem HCl 240 mg 240 mg PO BID #180 cap 11/18/21 12/09/21 Unknown Rx capsule,extended release 24 hr ergocalciferol (vitamin D2) 1,250 50,000 unit PO Q7D 12/09/21 12/09/21 12/04/21 History mcg (50,000 unit) capsule finished levothyroxine 100 mcg tablet 100 mcg PO QAM 12/09/21 12/09/21 Unknown History ondansetron 8 mg disintegrating 8 mg PO Q8H PRN 12/09/21 12/09/21 Unknown History tablet pantoprazole 40 mg tablet,delayed 40 mg PO BID 12/09/21 12/09/21 Unknown History release semaglutide (Ozempic) 0.5 mg SUBCUT Q7D 12/09/21 12/09/21 12/05/21 History tizanidine 4 mg tablet 4 mg PO QID@08,12,16,20 12/09/21 12/09/21 Unknown History Allergies Allergy/AdvReac Type Severity Reaction Status Date / Time aspirin Allergy due to BUN Verified 12/09/21 08:48 levels coconut Allergy hives Verified 12/09/21 08:48 ketorolac [From Toradol] Allergy hives Verified 12/09/21 08:48 meloxicam [From Mobic] Allergy hives Verified 12/09/21 08:48 NSAIDS (Non-Steroidal Allergy Unknown Verified 12/09/21 08:48 Anti-Inflamma PFSH Acute PFSH: Medical History SHELTON (acute kidney injury) Bipolar 1 disorder Bipolar 1 disorder, depressed, full remission Chest pain at rest Chronic back pain Chronic neck and back pain Chronic renal disease DM2 (diabetes mellitus, type 2) Generalized anxiety disorder HLD (hyperlipidemia) Hypertensive emergency Hypothyroidism Hypothyroidism Malignant hypertension Palpitation Post traumatic stress disorder (PTSD) Psychiatric care Pulmonary embolism Surgical History H/O angioplasty H/O esophagogastroduodenoscopy (08/12/20) H/O rectal polypectomy H/O total thyroidectomy History of appendectomy History of bilateral oophorectomy 2011 History of colonoscopy with polypectomy (08/12/20) History of spinal fusion 10/01/2013- C5-6, ACDFF Dr. Villanueva History of suburethral sling procedure anterior colporrhapy augmentd with porcine graft, cystoscopy performed on 03/08/[address] Haley History of total hysterectomy 2000 Hx of cholecystectomy Status post hemilaminotomy 01/06/2012, right L5-S1, disectomy and foraminotomy per Dr. Villanueva Family History Mother Diabetes Pancreatic cancer Ovarian cancer Father Diabetes Hypertension Stroke COPD (chronic obstructive pulmonary disease) Grandfather Hypertension maternal Heart disease maternal Grandmother Colon cancer maternal Social History Smoking and tobacco status: never smoked Second hand smoke exposure: Yes Smoking risk assessment/counseling performed?: Yes Alcohol intake: never Desire information about alcohol rehabilitation?: No Counseling given: No Desire information about substance/drug rehabilitation?: No Counseling given: Yes Caregiver/support person: No Lives independently: Yes Household members: spouse Housing: House Marital status: Number of children: 8 Highest education level completed: GED or Equivalent service: No Current occupational status: unemployed History of recent travel: No Additional social history: well balanced diet Vitals/I&O/Wt Last Vital Signs Temp 98.8 F 12/09/21 05:30 Pulse 85 12/09/21 10:09 Resp 16 12/09/21 09:50 BP 204/107 04/13/22 10:09 Pulse Ox 96 12/09/21 10:09 12/08/21 12/09/21 12/09/21 22:59 06:59 14:59 Intake Total 1000 / 1000 Balance 1000 / 1000 Weight last 48 hrs Weight 101.605 kg Physical Exam Narrative: General exam is a white female, who appears very nauseous when I evaluated her. HEENT: Atraumatic normocephalic. Oropharynx is clear. Pupils equally round. Neck is supple no lymphadenopathy thyromegaly Cardiovascular regular rate and rhythm without murmur, no S3 or S4 Lungs clear no wheezing or crackles Abdomen is soft. Slight tenderness present periumbilically. Positive bowel sounds. Difficult to determine if any organomegaly is present. exams deferred Extremities no cyanosis clubbing or edema, cap refill brisk. Skin is no rash Neuro no obvious focal deficits. Data : 12/09/21 05:50 12/09/21 05:50 Other Labs: LFTs are normal. Lactic acid was 2.3, on repeat 2.1. Calcium 10.[address] negative Chest x-ray no infiltrate Echocardiogram in June demonstrated a preserved ejection fraction CTA done in July 19 demonstrated no pulmonary embolism, mild calcific coronary disease, splenomegaly, fatty infiltration of the liver EKG demonstrates sinus rhythm, normal axis, no acute changes Urine drug screen positive for opiates, feedings [place] level 0.2 A&P Assessment and plan (1) Hypertensive urgency, malignant: Patient with long history of resistant hypertension and occasional admissions for hypertensive urgency. She has had an extensive work-up. She has had v omiting lately, and has not kept many of her medications down. She received multiple medications in the ER, but vomited quite a few of them. Redose her tizanidine now Metoprolol 5 mg IV now Restart all her other medicines Continue nicardipine, titrate off as tolerated Check troponin No need for repeat echocardiogram at this time She has a component of tachycardia, not otherwise defined. Some heart rates as high as 160 could represent SVT. We will continue her carvedilol and diltiazem. Status: Acute (2) Nausea & vomiting: Zofran as needed for nausea Phenergan, Reglan as needed for breakthrough Hydration Status: Acute (3) CKD (chronic kidney disease): Close follow-up of renal function Status: Acute (4) DM2 (diabetes mellitus, type 2): Sliding scale insulin Check serum ketones and repeat BMP as anion gap is slightly elevated. Doubt DKA. Status: Acute (5) Hypothyroid: Check TSH Continue thyroid hormone currently Status: Acute Plan Elevated lactic acid. Likely secondary to acute illness and vomiting. This is already started to correct. However, will hold Metformin currently. This can occasionally induce lactic acidosis. Past history of pulmonary embolism. She reports she completed treatment and is now off anticoagulation. Multiple other medical problems as outlined in past medical history Full code Lovenox for DVT prophylaxis Attestations Medical Necessity Statement*: Will need greater than 2 midnight stay for tracey luation and treatment of malignant hypertension Coding Level of Care Code Acute Electrical Solderer for Chg Fwd Diagnoses Hypertensive urgency, malignant I16.0 Nausea & vomiting R11.2 CKD (chronic kidney disease) N18.9 DM2 (diabetes mellitus, type 2) E11.9 Hypothyroid E03.9
[2021-12-09] MEDS: tizanidine 4 mg Tablet PO ×3 (10:53→20:11)
[2021-12-09] MEDS: sodium chloride 0.9% 1,000 ML 150 ML IV (10:53)
[2021-12-09 11:13] LABS: Amphetamines Screen Urine Negative (Negative); Barbiturates Screen Urine Negative (Negative); Benzodiazepines Screen Urine Positive (Negative); Cocaine Screen Urine Negative (Negative); Opiate Screen Urine Positive (Negative); PCP Screen Urine Negative (Negative); THC Screen Urine Negative (Negative)
--- NOTE | 2021-12-09 11:29 | PC.NURSE ---
To ICU at 1115, VSS, AAOX4, no current nausea/vomiting, no pain
[2021-12-09 11:40] LABS: Lactic Acid level (Lactate) 2.1 mmol/L (0.5-2.2)
[2021-12-09] MEDS: nicardipine 20 MG/200 ML PREMIX 150 MG IV ×3 (16:19→19:15)
[2021-12-09] MEDS: morphine 4 mg/mL SDV 1 mL 2 MG IVP ×2 (16:21→20:22)
[2021-12-09] MEDS: ondansetron 2 mg/ML SDV 2 mL 6 MG IVP (17:01)
[2021-12-09] MEDS: dilTIAZem ER (24HR) 240 mg Capsule PO (17:37)
[2021-12-09] MEDS: carvedilol 25 mg Tablet PO (17:38)
[2021-12-09] MEDS: enoxaparin 30 mg/0.3 mL Syringe SUBCUT (17:38)
[2021-12-09] MEDS: pantoprazole 40 mg SDV IVP (17:44)
[2021-12-09 17:55] LABS: Glucose Point of Care 148 mg/dL (70-110)
[2021-12-09 18:18] LABS: Ketone (Acetest) Serum Negative (Negative)
[2021-12-09 18:23] LABS: Troponin T (5th) Once 6 ng/L (0-10)
[2021-12-09] MEDS: insulin lispro 100 unit/1 mL SUBCUT (18:23)
[2021-12-09 18:32] LABS: Anion Gap 20.6 (5-19); Blood Urea Nitrogen 9 mg/dL (6-20); Calcium 8.8 mg/dL (8.5-10.5); Carbon Dioxide 21 mmol/L (22-29); Chloride 103 mmol/L (98-107); Glomerular Filtration Rate 54.2 mL/min (90-130); Glucose 174 mg/dL (65-115); Osmolality Calculated 295 mOsm/kg (285-295); Potassium 3.6 mmol/L (3.5-5.1); Sodium 141 mmol/L (136-145); Thyroid Stimulating Hormone 0.56 uIU/mL (0.27-4.20)
[2021-12-09] MEDS: metoclopramide 5 mg/mL SDV 2 mL 10 MG IVP (19:29)
[2021-12-09] MEDS: sodium chloride 0.9% 1,000 ML 100 ML IV (20:04)
[2021-12-09] MEDS: cloNIDine 0.1 mg Tablet 0.3 MG PO (20:10)
[2021-12-09] MEDS: LORazepam 2 mg Tablet PO (20:11)
[2021-12-09 20:24] LABS: Glucose Point of Care 120 mg/dL (70-110)
[2021-12-10] VITALS (46 sets, daily range): BP systolic 84–165; BP diastolic 56–95; PULSE 61–103; RESP 12–22; TEMP 36.6–36.7; O2SAT 81–98; BMI 37.1
--- NOTE | 2021-12-10 | PC.NURSE ---
Daughter Daughter, Jeanette who is an employee on [employer], called and received update on patient several times. Patient gave verbal permission for information to be relayed. Daughter also came to patient bedside for update. Blood pressure, heart rate, and medications administered were topics discussed. Daughter verbalized understanding.
[2021-12-10] MEDS: morphine 4 mg/mL SDV 1 mL 2 MG IVP (00:23)
[2021-12-10] MEDS: pantoprazole 40 mg SDV IVP ×2 (04:36→17:59)
[2021-12-10] MEDS: lamoTRIgine 100 mg Tablet 200 MG PO (05:52)
[2021-12-10] MEDS: levothyroxine 100 mcg Tablet PO (05:53)
[2021-12-10] MEDS: sodium chloride 0.9% 1,000 ML 100 ML IV (05:54)
[2021-12-10 07:09] LABS: Glucose Point of Care 104 mg/dL (70-110)
--- NOTE | 2021-12-10 07:43 | P.PN_ITS ---
Subjective Subjective: Nina feels better today. She believes the Reglan worked well for her nausea. She thinks she can eat today. No chest pain or shortness of breath. Medications: Reviewed: Yes Vitals/I&O/Wt Last Vital Signs Temp 98.1 F 12/10/21 04:00 Pulse 79 12/10/21 06:00 Resp 13 12/10/21 06:00 BP 112/59 12/10/21 06:00 Pulse Ox 98 12/10/21 06:00 12/09/21 12/10/21 12/10/21 22:59 06:59 14:59 Intake Total 1456.833 / 7277.001 9728.333 / 4039.333 Balance 1456.833 / 6246.633 6682.333 / 4039.333 Weight last 48 hrs Weight 101.333 kg Weight 101.605 kg Physical Exam Narrative: General exam is a white female, no distress Neck is supple no lymphadenopathy thyromegaly Cardiovascular regular rate and rhythm without murmur, no S3 or S4 Lungs clear no wheezing or crackles Abdomen is soft. Nontender today. Positive bowel sounds. exams deferred Extremities no cyanosis clubbing or edema, cap refill brisk. Skin is no rash Data : 12/09/21 05:50 12/09/21 17:52 A&P Assessment and plan (1) Hypertensive urgency, malignant: Patient with long history of resistant hypertension and occasional admissions for hypertensive urgency. She has had an extensive work-up. She has had vomiting lately, and has not kept many of her medications down. She received multiple medications in the ER, but vomited quite a few of them. She has now improved. Home medicines have been restarted. Nicardipine has been discontinued Troponin was checked and not elevated No need for repeat echocardiogram at this time She has a component of tachycardia, not otherwise defined. Some heart rates as high as 160 could represent SVT. We will continue her carvedilol and diltiazem. Rhythm is now significantly improved, in the 80s Status: Acute (2) Nausea & vomiting: Zofran as needed for nausea Phenergan, Reglan as needed for breakthrough Reglan worked well for her yesterday. She denies any significant nausea today. Reduce IV fluids. Status: Acute (3) CKD (chronic kidney disease): Close follow-up of renal function. Await laboratory today Status: Acute (4) DM2 (diabetes mellitus, type 2): Continue sliding scale insulin No evidence of DKA. Serum ketones negative Status: Acute (5) Hypothyroid: TSH checked and normal Continue thyroid hormone currently Status: Acute Plan Elevated lactic acid. Likely secondary to acute illness and vomiting. This is already started to correct. However, will hold Metformin currently. This can occasionally induce lactic acidosis. Do not plan on resuming this as an outpatient. Past history of pulmonary embolism. She reports she completed treatment and is now off anticoagulation. Multiple other medical problems as outlined in past medical history Full code Lovenox for DVT prophylaxis Attestations Medical Necessity Statement*: Needs continued hospitalization for close monitoring and further potential adjustment of medicine secondary to malignant hypertension. Must also demonstrate patient is able to take p.o. today. Coding Level of Care Code Acute Certified Surgical Assistant for Chg Fwd Diagnoses Hypertensive urgency, malignant I16.0 Nausea & vomiting R11.2 CKD (chronic kidney disease) N18.9 DM2 (diabetes mellitus, type 2) E11.9 Hypothyroid E03.9
[2021-12-10] MEDS: dilTIAZem ER (24HR) 240 mg Capsule PO ×2 (09:40→17:59)
[2021-12-10] MEDS: lithium carbonate 300 mg Capsule 600 MG PO ×2 (09:40→17:59)
[2021-12-10] MEDS: LORazepam 0.5 mg Tablet 1 MG PO ×2 (09:41→12:35)
[2021-12-10] MEDS: tizanidine 4 mg Tablet PO ×4 (09:41→20:22)
[2021-12-10] MEDS: cloNIDine 0.1 mg Tablet 0.3 MG PO ×2 (09:42→12:34)
[2021-12-10] MEDS: carvedilol 25 mg Tablet PO ×2 (09:42→17:59)
[2021-12-10] MEDS: FUROsemide 20 mg Tablet PO (09:42)
[2021-12-10 09:45] LABS: Basophils # 0.1 10^3/uL (0.0-0.1); Basophils % 0.6 %; Eosinophils # 0.2 10^3/uL (0.0-0.8); Eosinophils % 1.9 %; Hematocrit 40.1 % (37.0-47.0); Hemoglobin 12.1 g/dL (11.5-15.3); Lymphocytes # 3.1 10^3/uL (0.8-4.8); Lymphocytes % 34.8 %; Mean Corpuscular HGB Conc 30.2 g/dL (30.0-36.0); Mean Corpuscular Volume 86.2 fl (81-99); Mean Platelet Volume 12.4 fL (7.4-10.4); Monocytes # 0.6 10^3/uL (0.2-0.9); Monocytes % 6.8 %; Neutrophils # 4.95 10^3/uL (1.8-7.7); Neutrophils % 55.5 %; Nucleated Red Blood Cells % 0 %; Platelet Count 186 10^3/cmm (130-400); Red Blood Count 4.65 10^6/uL (4.1-5.3); Red Cell Distribution Width 16.7 % (12.1-15.1); White Blood Count 8.9 10^3/uL (4.0-10.0)
[2021-12-10 10:17] LABS: Alanine Aminotransferase 13 U/L (0-33); Albumin Level 4.1 g/dL (3.5-5.2); Alkaline Phosphatase 48 IU/L (35-105); Anion Gap 13.6 (5-19); Aspartate Amino Transferase 13 U/L (0-32); Blood Urea Nitrogen 8 mg/dL (6-20); Calcium 8.6 mg/dL (8.5-10.5); Carbon Dioxide 24 mmol/L (22-29); Chloride 105 mmol/L (98-107); Globulin 2.7 g/dL (1.3-4.6); Glomerular Filtration Rate 60.5 mL/min (90-130); Glucose 118 mg/dL (65-115); Osmolality Calculated 287 mOsm/kg (285-295); Potassium 3.6 mmol/L (3.5-5.1); Sodium 139 mmol/L (136-145); Total Bilirubin 0.4 mg/dL (0.15-1.2); Total Protein 6.8 g/dL (6.6-8.7)
[2021-12-10 11:52] LABS: Glucose Point of Care 113 mg/dL (70-110)
--- NOTE | 2021-12-10 14:18 | PC.NURSE ---
Report called to med-surg. Patient and belongings take to room 250-2 via wheelchair by this nurse. TRAVIS, AAOx4.
[2021-12-10 17:50] LABS: Glucose Point of Care 162 mg/dL (70-110)
[2021-12-10] MEDS: enoxaparin 30 mg/0.3 mL Syringe SUBCUT (17:59)
[2021-12-10] MEDS: insulin lispro 100 unit/1 mL SUBCUT (18:00)
[2021-12-10] MEDS: lurasidone 20 mg Tablet 60 MG PO (20:22)
[2021-12-10] MEDS: LORazepam 2 mg Tablet PO (20:22)
[2021-12-10 21:11] LABS: Glucose Point of Care 113 mg/dL (70-110)
[2021-12-11] VITALS (27 sets, daily range): BP systolic 91–156; BP diastolic 62–99; PULSE 55–101; RESP 10–25; TEMP 36.5–36.8; O2SAT 87–98
[2021-12-11] MEDS: sodium chloride 0.9% 1,000 ML 50 ML IV (01:34)
[2021-12-11] MEDS: pantoprazole 40 mg SDV IVP ×2 (05:20→17:42)
[2021-12-11] MEDS: lamoTRIgine 100 mg Tablet 200 MG PO (05:21)
[2021-12-11] MEDS: levothyroxine 100 mcg Tablet PO (05:21)
[2021-12-11 06:22] LABS: Glucose Point of Care 106 mg/dL (70-110)
--- NOTE | 2021-12-11 08:01 | ECG_ITS ---
[facility] Test Date: 2021-12-11 Pat Name: Nina Garcia Department: Room: 250 Gender: Female Staff Rn: : 1980 Requested By: Carlos Soares Order Number: [id number] Dustin MD: Reese Meraz M.D. Measurements Intervals Gibson Rate: 88 P: 30 UT: 165 QRS: 106 QRSD: 88 T: -2 QT: 338 QTc: 410 Interpretive Statements SINUS RHYTHM RIGHT AXIS DEVIATION [QRS AXIS > 100] ABNORMAL QRS-T ANGLE [QRS-T AXIS DIFFERENCE > 60] WARNING: DATA QUALITY MAY AFFECT INTERPRETATION Compared to ECG 12/09/2021 06:12:55 Right-axis deviation now present Sinus arrhythmia no longer present Atrial abnormality no longer present Electronically Signed On 12-11-2021 18:17:11 CDT by Reese Meraz M.D. [id number]
[2021-12-11 09:37] LABS: Basophils # 0.1 10^3/uL (0.0-0.1); Basophils % 0.7 %; Eosinophils # 0.3 10^3/uL (0.0-0.8); Eosinophils % 3.2 %; Hematocrit 40.4 % (37.0-47.0); Lymphocytes # 3.4 10^3/uL (0.8-4.8); Lymphocytes % 38.2 %; Mean Corpuscular HGB Conc 29.7 g/dL (30.0-36.0); Mean Corpuscular Hemoglobin 26.1 pg (28.0-34.0); Mean Corpuscular Volume 87.8 fl (81-99); Mean Platelet Volume 12.3 fL (7.4-10.4); Monocytes # 0.6 10^3/uL (0.2-0.9); Neutrophils # 4.54 10^3/uL (1.8-7.7); Neutrophils % 50.5 %; Nucleated Red Blood Cells % 0 %; Platelet Count 183 10^3/cmm (130-400); Red Cell Distribution Width 16.4 % (12.1-15.1)
[2021-12-11] MEDS: dilTIAZem ER (24HR) 240 mg Capsule PO ×2 (09:42→17:42)
[2021-12-11] MEDS: carvedilol 25 mg Tablet PO ×2 (09:42→17:42)
[2021-12-11] MEDS: FUROsemide 20 mg Tablet PO (09:42)
[2021-12-11] MEDS: LORazepam 0.5 mg Tablet 1 MG PO (09:43)
[2021-12-11] MEDS: tizanidine 4 mg Tablet PO ×3 (09:43→20:09)
[2021-12-11] MEDS: lithium carbonate 300 mg Capsule 600 MG PO ×2 (09:44→17:42)
--- NOTE | 2021-12-11 09:46 | PM.PN ---
Subjective Subjective: When I saw Nina earlier this morning she reported chest discomfort, heaviness, left-sided with radiation into her neck and has been going on for the last 4 hours or so. No shortness of breath. She states she gets this at home every so often and lays in a tub until it gradually dissipates. She can have intermittent episodes for a whole week before will be gone for several weeks. Medications: Reviewed: Yes Vitals/I&O/Wt Last Vital Signs Temp 98.3 F 12/11/21 07:02 Pulse 101 H 12/11/21 08:47 Resp 16 12/11/21 07:02 BP 156/99 12/11/21 07:02 Pulse Ox 96 12/11/21 08:47 12/10/21 12/11/21 12/11/21 22:59 06:59 14:59 Intake Total 595 / 1480 120 / 120 Output Total 800 / 800 Balance 595 / 1480 -800 / 680 120 / 120 Weight last 48 hrs Weight 101.333 kg Physical Exam Narrative: General exam is a white female, no distress Neck is supple no lymphadenopathy thyromegaly Cardiovascular regular rate and rhythm without murmur, no S3 or S4 Lungs clear no wheezing or crackles Abdomen is soft. Nontender today. Positive bowel sounds. exams deferred Extremities no cyanosis clubbing or edema, cap refill brisk. Skin is no rash Data : 12/11/21 09:15 12/10/21 09:19 Other Labs: CMP and troponin are pending EKG demonstrates sinus rhythm, right axis deviation A&P Assessment and plan (1) Hypertensive urgency, malignant: Patient with long history of resistant hypertension and occasional admissions for hypertensive urgency. She has had an extensive work-up. She has had vomiting lately, and has not kept many of her medications down. She received multiple medications in the ER, but vomited quite a few of them. She is currently improved on her home medications, with systolic blood pressure varying from around 95-1 60 Nicardipine has been discontinued She has some concerns with chest discomfort this morning. Troponin has been ordered. EKG unchanged. Will obtain cardiology consultation No need for repeat echocardiogram at this time She has a component of tachycardia, not otherwise defined. Some heart rates as high as 160 in the ICU shortly after admission. Could represent SVT. Continue diltiazem, carvedilol Status: Acute (2) Nausea & vomiting: Zofran as needed for nausea Phenergan, Reglan as needed for breakthrough Status: Acute (3) CKD (chronic kidney disease): Close follow-up of renal function. Await laboratory today Status: Acute (4) DM2 (diabetes mellitus, type 2): Continue sliding scale insulin No evidence of DKA. Serum ketones negative Status: Acute (5) Hypothyroid: TSH checked and normal Continue thyroid hormone currently Status: Acute Plan Elevated lactic acid. Likely secondary to acute illness and vomiting. This is already started to correct. However, will hold Metformin currently. This can occasionally induce lactic acidosis. Do not plan on resuming this as an outpatient. Past history of pulmonary embolism. She reports she completed treatment and is now off anticoagulation. Last CTA done was June and negative. Multiple other medical problems as outlined in past medical history Full code Lovenox for DVT prophylaxis Attestations Medical Necessity Statement*: Continue current blood pressure medication. Secondary to chest discomfort occurring this morning, cardiology will see patient. May need continued hospital stay for close monitoring secondary to chest pain. Coding Level of Care Code Acute Jetting Machine Operator for Chg Fwd Diagnoses Hypertensive urgency, malignant I16.0 Nausea & vomiting R11.2 CKD (chronic kidney disease) N18.9 DM2 (diabetes mellitus, type 2) E11.9 Hypothyroid E03.9
[2021-12-11] MEDS: cloNIDine 0.1 mg Tablet 0.3 MG PO ×2 (09:48→20:09)
[2021-12-11 09:51] LABS: Troponin T (5th) Once 7 ng/L (0-10)
[2021-12-11 09:54] LABS: Alanine Aminotransferase 12 U/L (0-33); Alkaline Phosphatase 51 IU/L (35-105); Anion Gap 14.7 (5-19); Aspartate Amino Transferase 12 U/L (0-32); Blood Urea Nitrogen 7 mg/dL (6-20); Calcium 8.4 mg/dL (8.5-10.5); Carbon Dioxide 22 mmol/L (22-29); Chloride 104 mmol/L (98-107); Globulin 2.7 g/dL (1.3-4.6); Glucose 130 mg/dL (65-115); Osmolality Calculated 284 mOsm/kg (285-295); Potassium 3.7 mmol/L (3.5-5.1); Sodium 137 mmol/L (136-145); Total Bilirubin 0.3 mg/dL (0.15-1.2); Total Protein 6.7 g/dL (6.6-8.7)
--- NOTE | 2021-12-11 10:45 | XACV_ITS ---
Exam Room: [facility] Ht: 566 cm Wt: 29 kg BSA: 1.85 m2 Gender: Female : 1980 Exam Priority: Routine Procedure(s): Procedure Description: Diagnostic procedure Procedure Description: Left Heart Catheterization Procedure Description: Coronary Angiography Diagnostic Cath Status: Elective Diagnostic Findings * 41 year old female with difficult to control hypertension, type 2 diabetes mellitus, chronic kidney disease stage III, hypothyroidism, hyperlipidemia and anxiety disorder was admitted with nausea, vomiting and elevated blood pressure. Her nausea and vomiting has resolved blood pressure is fairly controlled. She started complaining of heaviness in her chest with radiation to her jaw and left side of her neck. EKG showed sinus rhythm with right axis deviation and T wave inversion in lead III and aVF. Her last cardiac catheterization was in 2013 that did not show any obstructive coronary artery disease. She had a stress test 2020 at [place] that was normal per patient. Given recurrent episodes of chest discomfort, I will proceed with left heart catheterization for further risk stratification.. * Angiography shows a right coronary dominant system. * The left main, left anterior descending left circumflex and right coronary arteries are free of any significant disease. JA-2 flow in left anterior dsecending artery territory. Conclusions 1. Cardiac Catheterization study revealed no obstructive coronary artery disease. JA-2 flow in left anterior descending artery. Recommendations * Return to inpatient for close monitoring and routine cath care. * Continue medical management and risk factor modification. Diagnostic RX Recommendation: medical therapy and/or counseling LV EDP: 23 mmHg Pressures Phase:Rest AO : 110 / 82 ( 97 ) @ 2:08:00 PM 122 / 91 ( 106 ) @ 2:19:00 PM LV : 143 / -2 / 23 @ 2:07:00 PM Clinical Evaluation EBL: 5mL-10mL Procedural Details Procedure Consent Obtained. Admit Source: In Patient. Pre-Procedure Time Out. Identified patient by full name and date of as verbalized by the patient/guarantor. Does the consent match the physician's order: Yes. Accurate & Complete Informed Consent: Yes. Inpatient/Outpatient History & Physical on Chart: Yes. If H&P is completed, is and addenduem needed: Yes; If yes, is the addendum complete: Yes. Visualize and Verify Site with Patient/Guarantor: N/A. Relevant Radiology Images available: N/A. Pre-op teaching completed and patient verbalized understanding. The risks, benefits, and alternatives of sedation and/or procedure were discussed by physician. The patient agrees to continue. Procedure started. [facility] Clinical Fraility Score: 3: Managing Well. Manager Winter Indications: Worsening Angina. Chest Pain Symptom Assessment: Atypical Angina. Correct patient, site and procedure confirmed by cath team. Current diagnosis: Chest Pain. PERRLA. Strong, equal hand finisher screwdown bilaterally. Lungs clear x 5 lobes. IV Site on Arrival: 20 gauge in the left anticubital. IV Fluids: 0.9% NaCl at KVO. 400 mL infused prior to lab manager. Pre Procedural Pulses: bilateral dorsalis pedis was 2+. Pre Procedural Pulses: bilateral radial was 2+. Oxygen started at 2liters/min via nasal canula. right groin was prepped with chloroprep then draped in the usual sterile fashion. right radial was prepped with chloroprep then draped in the usual sterile fashion. Physician notified. Baseline sample Acquired. HR: 82 BPM. Physician arrived. Physician scrubbed in. Immediate Pre-Procedure Time Out. Correct Patient: Yes; Correct Procedure: Yes; Correct Site: Yes; Correct Patient Position: Yes; Correct Supplies: Yes; Dried Flammable Prep: Yes; Blood Products Available: N/A;. Lidocaine 1% infiltrated to the right radial. Arterial access obtained. A 5 peruvian TIG catheter in over wire. EDP Sample taken: LV 143/-3,23; HR: 79 BPM; SpO2: 94%. Multiple views taken of left coronary artery. Catheter redirected to the RCA. Glidewire inserted into the catheter. Wire and catheter removed. A 5 peruvian JR4 catheter in over wire. Multiple views taken of right coronary artery. Catheter out. A 5 peruvian Angled Pig catheter in over wire. Catheter out. Physician scrubbed out. Patient's family updated. A TR Band was successful obtaining hemostatsis at the Right Radial artery insertion site. PERRLA. Strong, equal hand finisher screwdown bilaterally. No VTE prophylaxis required. Medication's Wasted: Heparin = 1000 u. Medication's Wasted: Lidocaine 1% = 3 mg. Medication's Wasted: Nitro = 49.8 mg. Total IV fluids: 50 mL. Complications: none. Estimated blood loss: 5mL-10mL. Responsiveness - Normal response to verbal stimuli; alert and oriented, PERRLA. Airway - Unaffected, no intervention required; spontaneous ventilation. Circulation: W/N/L, pulses unchanged. Nausea/Vomiting: No. Procedure completed. Patient transferred by wheelchair to CPRU. Post-op diagnosis: Normal coronaries, No obstructive CAD. Vital chart was stopped. Access Site Site: Right Radial artery Sheath Size: 6 Fr Hemostasis Method: TR Band Hemostasis Success: Successful Procedure Medications Start: 12:54 PM Stop: 12:54 PM Medication: Versed Amount: 1 mg Route: I.V. Start: 12:54 PM Stop: 12:54 PM Medication: Fentanyl Amount: 50 mcg Route: I.V. Start: 1:01 PM Stop: 1:01 PM Medication: Versed Amount: 1 mg Route: I.V. Start: 1:02 PM Stop: 1:02 PM Medication: Nitrogylcerin Amount: 200 mcg Route: I.A. Start: 1:08 PM Stop: 1:08 PM Medication: Fentanyl Amount: 25 mcg Route: I.V. Start: 1:08 PM Stop: 1:08 PM Medication: Heparin Amount: 5000 units Route: I.V. Start: 1:18 PM Stop: 1:18 PM Medication: Fentanyl Amount: 25 mcg Route: I.V. Start: 1:19 PM Stop: 1:19 PM Medication: Versed Amount: 1 mg Route: I.V. Start: 12:45 PM Stop: 12:45 PM Medication: 0.9% Saline Amount: 75 ml/hr Route: I.VLeonardo ortiz I, the attending physician, have reviewed and verified all procedure medications. Yes, all medications given per verbal order History/Risk Factors Hypertension: Yes Dyslipidemia: Yes Peripheral Arterial Disease (PAD): No Myocardial Infarction (LA): No Obesity: Yes Renal Disease: No Tobacco Use: Never Prior Interventions PCI: No CABG: No Valve Surgery: No Report Signatures Finalized by Isa Hernandez MD on 12/11/2021 04:43 PM
--- NOTE | 2021-12-11 11:05 | P.CONIM_ITS ---
Providers/Reason For Consult Consulting Physician/Specialty*: Dr. Hernandez, Cardiology Reason for Consult*: Chest pain, resistant hypertension Attending Physician: Carlos Fernandez MD Primary Care Provider: Michelle Rico History of Present Illness History of Present Illness Nina Garcia is a 41 year old female with resistant hypertension, type 2 diabetes mellitus, chronic kidney disease, hypothyroidism, hyperlipidemia and anxiety disorder was admitted with nausea, vomiting and elevated blood pressure. After Zofran Phenergan and Reglan her nausea is controlled and she was able to tolerate p.o. feed. She also had some SHELTON that has since improved. She was initially started on nicardipine drip that has been since weaned off. She also gives history of migraines and because of that when I saw her last month in office I had taken her off Imdur. Since around 5 this morning she complains of heaviness in her chest with radiation to her jaw and left side of her neck. EKG this morning showed sinus rhythm with right axis deviation and T wave inversion in lead III and aVF. Her last cardiac catheterization was in 2013 that did not show any obstructive coronary artery disease. She had a stress test 2020 at [place] that was okay per patient. Review of Systems General: Reports: 10 or more systems reviewed and unremarkable except in HPI and below Const: Reports: fatigue and malaise; Denies: fever(s) or chills Eyes: Denies: change in vision ENMT: Denies: throat pain Card: Reports: chest pain and other (Elevated blood pressure) Resp: Denies: dyspnea GI: Reports: abdominal pain, nausea, vomiting and coffee ground emesis : Denies: flank pain Musc: Denies: neck pain Skin/Breast: Denies: rash Neuro: Reports: headache(s); Denies: weakness in extremities or difficulty walking Psych: Denies: anxiety or depression Endo: Denies: polyuria Fahad/Lymph: Denies: easy bruising, petechiae or purpura All/Imm: Denies: urticaria Medications/Allergies Home Medications Medication Instructions Recorded Confirmed Last Taken Type hydromorphone 4 mg tablet 4 mg PO QID PRN tab 08/30/19 12/09/21 07/22/21 History carvedilol 25 mg tablet 25 mg PO BID 07/23/21 12/09/21 Unknown History furosemide 20 mg tablet 20 mg PO DAILY #90 tab 07/30/21 12/09/21 Unknown Rx hydrocodone 5 mg-acetaminophen 325 1 - 2 tab PO Q6H PRN 08/10/21 12/09/21 Unknown History mg tablet lamotrigine 200 mg tablet 200 mg PO QAM #30 tab 11/16/21 12/09/21 Unknown Rx (Lamictal) lithium carbonate 600 mg capsule 600 mg PO BID #60 cap 11/16/21 12/09/21 Unknown Rx lorazepam 2 mg tablet (Ativan) See Rx Instructions PO .COMPLEX 11/16/21 12/09/21 Unknown Rx #60 tab lurasidone 60 mg tablet (Latuda) 60 mg PO DAILY #30 tab 11/16/21 12/09/21 Unknown Rx diltiazem HCl 240 mg 240 mg PO BID #180 cap 11/18/21 12/09/21 Unknown Rx capsule,extended release 24 hr ergocalciferol (vitamin D2) 1,250 50,000 unit PO Q7D 12/09/21 12/09/21 12/04/21 History mcg (50,000 unit) capsule finished levothyroxine 100 mcg tablet 100 mcg PO QAM 12/09/21 12/09/21 Unknown History ondansetron 8 mg disintegrating 8 mg PO Q8H PRN 12/09/21 12/09/21 Unknown History tablet semaglutide (Ozempic) 0.5 mg SUBCUT Q7D 12/09/21 12/09/21 12/05/21 History tizanidine 4 mg tablet 4 mg PO QID@08,12,16,20 12/09/21 12/09/21 Unknown History clonidine HCl 0.3 mg tablet 0.3 mg PO TID@0800,1200,2000 #90 12/10/21 Unknown Rx tab metformin 500 mg tablet 500 mg PO BID #180 tab 12/10/21 Unknown Rx pantoprazole 40 mg tablet,delayed 40 mg PO BID #60 tab 12/11/21 Unknown Rx release Allergies Allergy/AdvReac Type Severity Reaction Status Date / Time aspirin Allergy due to BUN Verified 12/09/21 08:48 levels coconut Allergy hives Verified 12/09/21 08:48 ketorolac [From Toradol] Allergy hives Verified 12/09/21 08:48 meloxicam [From Mobic] Allergy hives Verified 12/09/21 08:48 NSAIDS (Non-Steroidal Allergy Unknown Verified 12/09/21 08:48 Anti-Inflamma Current Medications Generic Name Dose Route Start Last Admin Trade Name Jennifer PRN Reason Stop Dose Admin Carvedilol 25 mg 12/09/21 18:00 12/11/21 09:42 Carvedilol 25 Mg Tablet PO 25 mg BID ZARINA Administration Clonidine HCl 0.3 mg 12/09/21 20:00 12/11/21 09:48 Clonidine 0.1 Mg Tablet PO 0.3 mg TID@0800,1200,1999 ZARINA Administration Diltiazem HCl 240 mg 12/09/21 18:00 12/11/21 09:42 Diltiazem Er (24hr) 240 Mg Capsule PO 240 mg BID ZARINA Administration Enoxaparin Sodium 30 mg 12/09/21 17:30 12/10/21 17:59 Enoxaparin 30 Mg/0.3 Ml Syringe SUBCUT 30 mg Q24H ZARINA Administration Furosemide 20 mg 12/10/21 09:00 12/11/21 09:42 Furosemide 20 Mg Tablet PO 20 mg DAILY ZARINA Administration Hydromorphone HCl 4 mg 12/09/21 16:56 12/11/21 05:25 Hydromorphone 4 Mg Tablet PO 4 mg QID PRN Administration Pain Insulin Human Lispro 0 unit 12/09/21 18:00 12/11/21 09:44 Insulin Lispro 100 Unit/1 Ml SUBCUT Not Given WM&BEDTIME [facility] Protocol Lamotrigine 200 mg 12/10/21 06:00 12/11/21 05:21 Lamotrigine 100 Mg Tablet PO 200 mg QAM ZARINA Administration Levothyroxine Sodium 100 mcg 12/10/21 06:00 12/11/21 05:21 Levothyroxine 100 Mcg Tablet PO 100 mcg QAM ZARINA Administration [place] Carbonate 600 mg 12/10/21 09:00 12/11/21 09:44 [place] Carbonate 300 Mg Capsule PO 600 mg BID ZARINA Administration Lorazepam 1 mg 12/10/21 08:00 12/11/21 09:43 Lorazepam 0.5 Mg Tablet PO 1 mg 0800,1200 ZARINA Administration Lorazepam 2 mg 12/09/21 20:00 12/10/21 20:22 Lorazepam 2 Mg Tablet PO 2 mg 2000 ZARINA Administration Lurasidone HCl 60 mg 12/10/21 21:00 12/10/21 20:22 Lurasidone 20 Mg Tablet PO 60 mg BEDTIME ZARINA Administration Metoclopramide HCl 10 mg 12/09/21 16:59 12/09/21 19:29 Metoclopramide 5 Mg/Ml Sdv 2 Ml IVP 10 mg Q6H PRN Administration NAUSEA AND VOMITING Pantoprazole Sodium 40 mg 12/09/21 17:15 12/11/21 05:20 Pantoprazole 40 Mg Sdv IVP 40 mg Q12H ZARINA Administration Tizanidine HCl 4 mg 12/09/21 20:00 12/11/21 09:43 Tizanidine 4 Mg Tablet PO 4 mg QID@08,12,16,20 ZARINA Administration PFSH Acute PFSH: Medical History SHELTON (acute kidney injury) Bipolar 1 disorder Bipolar 1 disorder, depressed, full remission Chest pain at rest Chronic back pain Chronic neck and back pain Chronic renal disease DM2 (diabetes mellitus, type 2) Generalized anxiety disorder HLD (hyperlipidemia) Hypertensive emergency Hypothyroidism Hypothyroidism Malignant hypertension Palpitation Post traumatic stress disorder (PTSD) Psychiatric care Pulmonary embolism Surgical History H/O angioplasty H/O esophagogastroduodenoscopy (08/12/20) H/O rectal polypectomy H/O total thyroidectomy History of appendectomy History of bilateral oophorectomy 2011 History of colonoscopy with polypectomy (08/12/20) History of spinal fusion 10/01/2013- C5-6, ACDFF Dr. Villanueva History of suburethral sling procedure anterior colporrhapy augmentd with porcine graft, cystoscopy performed on 03/08/[address] Haley History of total hysterectomy 2000 Hx of cholecystectomy Status post hemilaminotomy 01/06/2012, right L5-S1, disectomy and foraminotomy per Dr. Villanueva Family History Mother Diabetes Pancreatic cancer Ovarian cancer Father Diabetes Hypertension Stroke COPD (chronic obstructive pulmonary disease) Grandfather Hypertension maternal Heart disease maternal Grandmother Colon cancer maternal Social History Smoking and tobacco status: never smoked Second hand smoke exposure: Yes Smoking risk assessment/counseling performed?: Yes Alcohol intake: never Desire information about alcohol rehabilitation?: No Counseling given: No Desire information about substance/drug rehabilitation?: No Counseling given: Yes Caregiver/support person: No Lives independently: Yes Household members: spouse Housing: House Marital status: Number of children: 8 Highest education level completed: GED or Equivalent service: No Current occupational status: unemployed History of recent travel: No Additional social history: well balanced diet Vitals/I&O/Wt Last Vital Signs Temp 98.3 F 12/11/21 07:02 Pulse 89 12/11/21 10:56 Resp 16 12/11/21 07:02 BP 148/87 12/11/21 10:56 Pulse Ox 96 12/11/21 08:47 12/10/21 12/11/21 12/11/21 22:59 06:59 14:59 Intake Total 595 / 1480 120 / 120 Output Total 800 / 800 Balance 595 / 1480 -800 / 680 120 / 120 Weight last 48 hrs Weight 223 lb 6.4 oz Physical Exam Narrative: GENERAL: obese woman laying in bed in no acute distress HEENT: Pupils equal round reactive to light. No pallor or icterus. NECK: central trachea, No JVD, No carotid bruit. CARDIOVASCULAR SYSTEM: S1-S2 regular. No S3 or S4 present. No murmur rubs or gallops. RESPIRATORY SYSTEM: Chest clear to auscultation. No wheezes rhonchi or rubs heard. No use of accessory muscles. ABDOMEN: Soft, nontender and nondistended. Normal bowel sounds present. EXTREMITIES: No cyanosis or clubbing. [No edema]. No signs of chronic venous insufficiency. SLAT BASKET MAKER MACHINE: Patient is alert oriented ?3. No focal neurological deficits. SKIN: Normal turgor and temperature. No breakdown, rash or nail changes noted. PSYCH: Normal insight and judgment. Data : 12/11/21 09:15 12/11/21 09:15 A&P Assessment and plan (1) Chest pain: Patient continues to have chest discomfort. She has multiple CAD risk factors including hypertension, diabetes mellitus. -EKG with T wave inversion in lead III and aVF. Lipid panel in June 2021 with total cholesterol 91, triglyceride 56, LDL 33 and HDL 47. -Last stress test with 1-2 years was normal per patient. -I will plan for [facility] today and further changes based on that. Status: Acute (2) Hypertensive urgency, malignant: BP has improved significantly. -She is off nicardipine drip -will consider starting on low dose imdur. Headache unrelated to imdur use. More so in setting of elevated BP Status: Acute (3) DM2 (diabetes mellitus, type 2): As per primary team Status: Acute (4) CKD (chronic kidney disease): creatinine 1.2 today -f/u on BMP in am Status: Acute Plan Nausea/vomiting: resolved Hypothyroidism CKD stage 3a Thank you for allowing me to participate in patient's care. Please feel free to call with questions and concerns. Coding Level of Care Code Acute Perforator Operator for Ingrid Lindsay Diagnoses Chest pain R07.9 DM2 (diabetes mellitus, type 2) E11.9 Hypertensive urgency, malignant I16.0 CKD (chronic kidney disease) N18.9
[2021-12-11 11:44] LABS: Glucose Point of Care 145 mg/dL (70-110)
[2021-12-11] MEDS: diphenhydrAMINE 50 mg Capsule PO (12:25)
[2021-12-11] MEDS: nitroglycerin 0.4 mg sublingual Tablet SUBLINGUAL (12:25)
--- NOTE | 2021-12-11 12:40 | PC.NURSE ---
Called report to Ade in [facility].
--- NOTE | 2021-12-11 12:48 | W.PM.OPSUD ---
Surgery/Procedure H&P Update DATE OF PROCEDURE: December 11, 2021 DATE H&P PERFORMED: 12/11/21 CHANGES TO PREVIOUS DOCUMENTATION: There has been no change to history and physical and exam done earlier today. PREOP DIAGNOSIS: chest pain PRIMARY INDICATION FOR PROCEDURE: Recurrent chest pain inspite of norml stress test. PLANNED PROCEDURE: Left heart cathetarization PATIENT REASSESSED PRIOR TO SEDATION, WITH NO CHANGE NOTED: Yes PHYSICAL EXAM: alert, oriented x 3, clear to auscultation bilaterally and regular rate & rhythm AIRWAY EVAL/ANESTHESIA PLAN: see other exam findings (airway 2) and ASA III
--- NOTE | 2021-12-11 13:59 | USCV_ITS ---
Nina Garcia Age: 41 Gender: F : 1980 Exam Date: 12/11/2021 14:43 Ordering Phys: Isa Hernandez MD ([email or web address]) Technologist: Exam Location: [facility] [place] Indication: BP: / HR: Rhythm: Sinus Technical Quality: Adequate MEASUREMENTS (Male / Female) Normal Values FINDINGS Left Ventricle Normal left ventricular size, systolic function and upper normal wall thickness, with no regional wall motion abnormalities. Left ventricular ejection fraction is estimated at 65 %. Right Ventricle Normal right ventricular size and systolic function. Right Atrium Normal right atrial size. Left Atrium Normal left atrial size. Mitral Valve Structurally normal mitral valve. Aortic Valve Aortic valve not well visualized. Probably trileaflet aortic valve. Tricuspid Valve Structurally normal tricuspid valve. Pulmonic Valve Structurally normal pulmonic valve. Pericardium No pericardial effusion. Aorta Normal size aortic root and proximal ascending aorta. CONCLUSIONS 1. This is a technically difficult study. Optison was used per protocol. 2. Normal left ventricular size, systolic function and upper normal wall thickness, with no regional wall motion abnormalities. Left ventricular ejection fraction is estimated at 65%. 3. No change when compared to study dated 07/23/22. Isa Hernandez MD (Electronically Signed) Final Date: 11 December 2021 21:48 S
[2021-12-11] MEDS: sodium chloride 0.9% 1,000 ML 75 ML IV (15:41)
[2021-12-11] MEDS: perflutren protein-a microsphr 0.22 mg/mL SDV 3 mL IV (16:08)
[2021-12-11 17:01] LABS: Glucose Point of Care 101 mg/dL (70-110)
[2021-12-11] MEDS: isosorbide mononitrate ER 30 mg Tablet PO (17:42)
[2021-12-11] MEDS: enoxaparin 30 mg/0.3 mL Syringe SUBCUT (17:42)
[2021-12-11 20:00] LABS: Glucose Point of Care 160 mg/dL (70-110)
[2021-12-11] MEDS: temazepam 15 mg Capsule PO (20:09)
[2021-12-11] MEDS: LORazepam 2 mg Tablet PO (20:09)
[2021-12-12] VITALS (8 sets, daily range): BP systolic 87–138; BP diastolic 62–88; PULSE 66–73; RESP 11–16; TEMP 36.2–36.8; O2SAT 91–93
[2021-12-12] MEDS: lurasidone 20 mg Tablet 60 MG PO (01:19)
[2021-12-12] MEDS: ondansetron 2 mg/ML SDV 2 mL 4 MG IVP (01:19)
[2021-12-12 04:43] LABS: Basophils # 0.1 10^3/uL (0.0-0.1); Basophils % 0.7 %; Eosinophils # 0.2 10^3/uL (0.0-0.8); Hematocrit 41.9 % (37.0-47.0); Hemoglobin 12.1 g/dL (11.5-15.3); Lymphocytes # 2.5 10^3/uL (0.8-4.8); Mean Corpuscular HGB Conc 28.9 g/dL (30.0-36.0); Mean Corpuscular Hemoglobin 26.2 pg (28.0-34.0); Mean Corpuscular Volume 90.9 fl (81-99); Mean Platelet Volume 12.1 fL (7.4-10.4); Monocytes # 0.5 10^3/uL (0.2-0.9); Monocytes % 6.8 %; Neutrophils # 4.31 10^3/uL (1.8-7.7); Nucleated Red Blood Cells % 0 %; Platelet Count 190 10^3/cmm (130-400); Red Blood Count 4.61 10^6/uL (4.1-5.3); Red Cell Distribution Width 16.5 % (12.1-15.1); White Blood Count 7.7 10^3/uL (4.0-10.0)
[2021-12-12 05:00] LABS: Anion Gap 12.7 (5-19); Blood Urea Nitrogen 5 mg/dL (6-20); Calcium 8.5 mg/dL (8.5-10.5); Carbon Dioxide 26 mmol/L (22-29); Chloride 103 mmol/L (98-107); Glomerular Filtration Rate 54.2 mL/min (90-130); Glucose 95 mg/dL (65-115); Osmolality Calculated 283 mOsm/kg (285-295); Potassium 3.7 mmol/L (3.5-5.1); Sodium 138 mmol/L (136-145)
[2021-12-12] MEDS: levothyroxine 100 mcg Tablet PO (05:37)
[2021-12-12] MEDS: lamoTRIgine 100 mg Tablet 200 MG PO (05:37)
[2021-12-12] MEDS: pantoprazole 40 mg SDV IVP (05:37)
--- NOTE | 2021-12-12 07:12 | P.PN_ITS ---
Subjective Subjective: She feels better. This morning. Is status post left heart cath yesterday No events on telemetry. Blood pressure is well controlled. Medications: Reviewed: Yes Vitals/I&O/Wt Last Vital Signs Temp 98.2 F 12/12/21 04:00 Pulse 68 12/12/21 05:57 Resp 14 12/12/21 04:00 BP 128/87 12/12/21 04:00 Pulse Ox 93 12/12/21 04:00 12/11/21 12/12/21 12/12/21 22:59 06:59 14:59 Intake Total 480 / 1600 120 / 1720 1000 / 1000 Balance 480 / 1600 120 / 1720 1000 / 1000 Weight last 48 hrs Weight 229 lb 11.547 oz Physical Exam Narrative: GENERAL: obese woman laying in bed in no acute distress HEENT: Pupils equal round reactive to light. No pallor or icterus. NECK: central trachea, No JVD, No carotid bruit. CARDIOVASCULAR SYSTEM: S1-S2 regular. No S3 or S4 present. No murmur rubs or gallops. RESPIRATORY SYSTEM: Chest clear to auscultation. No wheezes rhonchi or rubs heard. No use of accessory muscles. ABDOMEN: Soft, nontender and nondistended. Normal bowel sounds present. EXTREMITIES: No cyanosis or clubbing. No edema. No signs of chronic venous ins ufficiency. Right wrist with 2+ radial no significant bruising or hematoma. BAR TACKER: Patient is alert oriented ?3. No focal neurological deficits. SKIN: Normal turgor and temperature. No breakdown, rash or nail changes noted. PSYCH: Normal insight and judgment. Data : 12/12/21 03:30 12/12/21 03:30 A&P Assessment and plan (1) Chest pain: Patient continues to have chest discomfort. She has multiple CAD risk factors including hypertension, diabetes mellitus. -EKG with T wave inversion in lead III and aVF. Lipid panel in June 2021 with total cholesterol 91, triglyceride 56, LDL 33 and HDL 47. -Last stress test with 1-2 years was normal per patient. -No obstructive coronary artery disease on [facility]. JA 2 flow noted in LAD. -Patient has been tolerating Imdur well. She is chest pain-free this morning. -Follow-up in 2 weeks in [facility] with Ms. Chula Stover -Patient advised to take Imdur 30 mg evening dose based on her blood pressure numbers. -Follow-up with me in 2 months. Status: Acute (2) Hypertensive urgency, malignant: BP has improved significantly. -She is off nicardipine drip -Tolerating Imdur. Headache unrelated to imdur use. More so in setting of elevated BP Status: Acute (3) DM2 (diabetes mellitus, type 2): As per primary team Status: Acute (4) CKD (chronic kidney disease): creatinine 1.2 today Status: Acute Plan Nausea/vomiting: resolved Hypothyroidism CKD stage 3a Thank you for allowing me to participate in patient's care. Please feel free to call with questions and concerns. Attestations Medical Necessity Statement*: Stable to be discharged home Coding Level of Care Code Acute Supervisor Estimator And Drafter for Chg Fwd Diagnoses Chest pain R07.9 Hypertensive urgency, malignant I16.0 DM2 (diabetes mellitus, type 2) E11.9 CKD (chronic kidney disease) N18.9
[2021-12-12 07:19] LABS: Glucose Point of Care 138 mg/dL (70-110)
[2021-12-12] MEDS: lithium carbonate 300 mg Capsule 600 MG PO (08:30)
[2021-12-12] MEDS: carvedilol 25 mg Tablet PO (08:30)
[2021-12-12] MEDS: dilTIAZem ER (24HR) 240 mg Capsule PO (08:30)
[2021-12-12] MEDS: LORazepam 0.5 mg Tablet 1 MG PO (08:30)
[2021-12-12] MEDS: FUROsemide 20 mg Tablet PO (08:30)
[2021-12-12] MEDS: tizanidine 4 mg Tablet PO (08:31)
[2021-12-12] MEDS: isosorbide mononitrate ER 30 mg Tablet PO (08:31)
[2021-12-12] MEDS: cloNIDine 0.1 mg Tablet 0.3 MG PO (08:34)
--- NOTE | 2021-12-12 11:03 | PM.DCS ---
Discharge Providers Date of Admission: 12/09/21 11:27 Date of Discharge: December 12, 2021 Attending Provider at Admission: Carlos Fernandez MD Attending Provider at Discharge: Raymundo Castañeda MD Primary Care Provider: Michelle Rico Diagnoses at Discharge Discharge Diagnosis (1) Chest pain: Status: Acute (2) Hypertensive urgency, malignant: Status: Acute (3) DM2 (diabetes mellitus, type 2): Status: Acute (4) CKD (chronic kidney disease): Status: Acute Reason for Visit Reason for Visit: BP high N/V Hospital Course Hospital Course 41 year old female?with resistant hypertension, type 2 diabetes mellitus, chronic kidney disease, hypothyroidism, hyperlipidemia and anxiety disorder was admitted with nausea, vomiting and elevated blood pressure.? After Zofran Phenergan and Reglan her nausea is controlled and she was able to tolerate p.o. feed.? She also had some SHELTON that has since improved.? She was initially started on nicardipine drip that has been since weaned off.? She also gives history of migraines and because of that when I saw her last month in office I had taken her off Imdur.? Since around 5 this morning she complains of heaviness in her chest with radiation to her jaw and left side of her neck.? EKG this morning showed sinus rhythm with right axis deviation and T wave inversion in lead III and aVF. ? Her last cardiac catheterization was in 2013 that did not show any obstructive coronary artery disease.? She had a stress test 2020 at [facility] [facility] that was okay per patient. Patient underwent cardiac cath; showed nonobstructive coronary artery disease, patient has been continued on imdur. She will continue to follow cardiology as an outpatient, as well as her primary care physician. Patient responded well to medical management and is being discharged in stable condition to home. Physical Exam Const: COMMON NORMALS: patient oriented x3 HENMT: COMMON NORMALS: normocephalic, atraumatic, hearing grossly normal bilaterally and external ears normal HEAD & SCALP: normocephalic and atraumatic EXTERNAL EAR: Yes external ears normal Eye: COMMON NORMALS: no scleral icterus GENERAL EYE: appearance normal, both eyes and all related structures Chest: COMMONS NORMALS: normal inspection of the chest and normal palpation of entire chest wall CHEST: Yes Symmetrical chest wall rise Resp: COMMON NORMALS: normal respiratory effort, No retractions, No use of accessory muscles and clear to auscultation bilaterally EFFORT & INSPECTION: Yes symmetric chest movement AUSCULTATION: clear to auscultation bilaterally Cardio: COMMON NORMALS: regular rate, regular rhythm, S1 normal heart sound present, S2 normal heart sound present, No gallops present (Cardio), No murmurs present (Cardio), No rub (Cardio) and Peripheral pulses 2+ throughout RATE: regular rate RHYTHM: regular rhythm HEART SOUNDS: S1 normal heart sound present and S2 normal heart sound present PERIPHERAL PULSES: Peripheral pulses 2+ throughout GI: COMMON NORMALS: Normal to inspection, nondistended, normoactive bowel sounds present, Soft to palpation, non-tender, No hepatosplenomegaly present and no masses AUSCULTATION: Yes normoactive bowel sounds PALPATION: Yes Soft to palpation and Yes No hepatosplenomegaly present RECTAL EXAM: deferred Extremity: COMMON NORMALS: no clubbing, cyanosis or edema and no pedal edema Neuro: COMMON NORMALS: patient oriented x3 Discharge Data Studies Completed and Pending Completed Studies During Hospitalization Category Date Time Status CT head wo con* [id number] Stat Cat Scan 12/09/21 08:58 Completed CHAIN SPLITTER request for service Routine Exams 12/11/21 10:45 Completed XR chest 1V portable [id number] Stat Exams 12/09/21 07:19 Completed CV. echo lmt w/w contras [id number] Routine Ultrasound 12/11/21 13:59 Completed Radiology Impressions Chest X-Ray 12/09/21 07:19 IMPRESSION: Lungs are well aerated without a focal area of consolidation. Head CT 12/09/21 08:58 IMPRESSION: Negative head CT. Laboratory Results WBC 7.7 10^3/uL (4.0-10.0) 12/12/21 03:30 RBC 4.61 10^6/uL (4.1-5.3) 12/12/21 03:30 Hgb 12.1 g/dL (11.5-15.3) 12/12/21 03:30 Hct 41.9 % (37.0-47.0) 12/12/21 03:30 MCV 90.9 fl (81-99) 12/12/21 03:30 MCH 26.2 pg (28.0-34.0) L 12/12/21 03:30 MCHC 28.9 g/dL (30.0-36.0) L 12/12/21 03:30 RDW 16.5 % (12.1-15.1) H 12/12/21 03:30 Plt Count 190 10^3/cmm (130-400) 12/12/21 03:30 MPV 12.1 fL (7.4-10.4) H 12/12/21 03:30 Neut % (Auto) 56.0 % 12/12/21 03:30 Lymph % (Auto) 33.0 % 12/12/21 03:30 [place] % (Auto) 6.8 % 12/12/21 03:30 Eos % (Auto) 3.0 % 12/12/21 03:30 Baso % (Auto) 0.7 % 12/12/21 03:30 Neut # (Auto) 4.31 10^3/uL (1.8-7.7) 12/12/21 03:30 Lymph # (Auto) 2.5 10^3/uL (0.8-4.8) 12/12/21 03:30 [place] # (Auto) 0.5 10^3/uL (0.2-0.9) 12/12/21 03:30 Eos # (Auto) 0.2 10^3/uL (0.0-0.8) 12/12/21 03:30 Baso # (Auto) 0.1 10^3/uL (0.0-0.1) 12/12/21 03:30 Nucleated RBC % (auto) 0 % 12/12/21 03:30 Nucleated RBCs # 0.0 /100WBC 12/12/21 03:30 Sodium 138 mmol/L (136-145) 12/12/21 03:30 Potassium 3.7 mmol/L (3.5-5.1) 12/12/21 03:30 Chloride 103 mmol/L (98-107) 12/12/21 03:30 Carbon Dioxide 26 mmol/L (22-29) 12/12/21 03:30 Anion Gap 12.7 (5-19) 12/12/21 03:30 BUN 5 mg/dL (6-20) L 12/12/21 03:30 Creatinine 1.1 mg/dL (0.5-0.9) H 12/12/21 03:30 GFR Calculation 54.2 mL/min (90-130) L 12/12/21 03:30 Glucose 95 mg/dL (65-115) 12/12/21 03:30 POC Glucose 138 mg/dL (70-110) H 12/12/21 07:10 Calculated Osmolality 283 mOsm/kg (285-295) L 12/12/21 03:30 Lactic Acid 2.3 mmol/L (0.5-2.2) H 12/09/21 08:17 Lactic Acid (Sepsis) 2.1 mmol/L (0.5-2.2) 12/09/21 11:03 Calcium 8.5 mg/dL (8.5-10.5) 12/12/21 03:30 Magnesium 2.0 mg/dL (1.7-2.3) 12/10/21 09:19 Total Bilirubin 0.3 mg/dL (0.15-1.2) 12/11/21 09:15 AST 12 U/L (0-32) 12/11/21 09:15 ALT 12 U/L (0-33) 12/11/21 09:15 Alkaline Phosphatase 51 IU/L (35-105) 12/11/21 09:15 Troponin T Gen 5 ng/L 7 ng/L (0-10) 12/11/21 09:15 Total Protein 6.7 g/dL (6.6-8.7) 12/11/21 09:15 Albumin 4.0 g/dL (3.5-5.2) 12/11/21 09:15 Globulin 2.7 g/dL (1.3-4.6) 12/11/21 09:15 TSH 0.56 uIU/mL (0.27-4.20) 12/09/21 17:52 Urine Color Dark yellow (Yellow) 12/09/21 06:30 Urine Appearance Clear (CLEAR) 12/09/21 06:30 Urine pH 5 (5-7) 12/09/21 06:30 Ur Specific [place] 1.020 (1.005-1.030) 12/09/21 06:30 Urine Protein Trace (Negative) 12/09/21 06:30 Urine Glucose (UA) Norm (Normal) 12/09/21 06:30 Urine Ketones 2+ (Negative) H 12/09/21 06:30 Urine Blood 2+ (Negative) H 12/09/21 06:30 Urine Nitrate Negative (Negative) 12/09/21 06:30 Urine Bilirubin 1+ (Negative) H 12/09/21 06:30 Urine Urobilinogen 4 mg/dL (Negative) H 12/09/21 06:30 Ur Leukocyte Esterase Negative (Negative) 12/09/21 06:30 Urine RBC Rare /hpf (0-2) 12/09/21 06:30 Urine WBC 0-4 /hpf (0-5) H 12/09/21 06:30 Ur Squamous Epith Cells 0-4 /hpf (0-5) H 12/09/21 06:30 Amorphous Sediment Not Reportable 12/09/21 06:30 Urine Bacteria 1+ /hpf (NONE) H 12/09/21 06:30 Urine Mucus 1+ /hpf 12/09/21 06:30 Urine Opiates Screen Positive ng/mL (Negative) H 12/09/21 06:30 Ur Barbiturates Screen Negative ng/mL (Negative) 12/09/21 06:30 Ur Phencyclidine Scrn Negative ng/mL (Negative) 12/09/21 06:30 Ur Amphetamines Screen Negative ng/mL (Negative) 12/09/21 06:30 U Benzodiazepines Scrn Positive ng/mL (Negative) H 12/09/21 06:30 [place] 0.2 mmol/L (0.6-1.2) L 12/09/21 05:50 Urine Cocaine Screen Negative ng/mL (Negative) 12/09/21 06:30 U Marijuana (THC) Screen Negative ng/mL (Negative) 12/09/21 06:30 Serum Ketones Negative (Negative) 12/09/21 17:52 Vitals Last Vital Signs Temp 97.5 F L 12/12/21 07:11 Pulse 73 12/12/21 09:17 Resp 13 12/12/21 07:11 BP 138/88 12/12/21 08:34 Pulse Ox 91 12/12/21 09:17 Discharge Plan Discharge Patient Disposition: Home Condition: Stable Prescriptions: New isosorbide mononitrate 30 mg Tablet Extended Release 24 Hr 30 mg PO BID Qty: 60 3RF Rx Instructions: Use evening dose of imdur if BP> 130/80 mm Hg Continued hydrocodone-acetaminophen 5-325 mg tablet 1 - 2 tab PO Q6H PRN (Reason: Pain) 0RF Latuda 60 mg tablet 60 mg PO DAILY Qty: 30 11RF Rx Instructions: must administer with food (at least 350 calories) lithium carbonate 600 mg capsule 600 mg PO BID Qty: 60 5RF lamotrigine [Lamictal] 200 mg tablet 200 mg PO QAM Qty: 30 11RF lorazepam [Ativan] 2 mg tablet See Rx Instructions PO .COMPLEX Qty: 60 5RF Rx Instructions: 1/2 (1mg) tablet in am 1/2 (1mg) tablet at noon and 1 (2mg) tablet at bedtime hydromorphone 4 mg tablet 4 mg PO QID PRN (Reason: Pain) 0RF furosemide 20 mg tablet 20 mg PO DAILY Qty: 90 3RF diltiazem HCl 240 mg capsule,extended release 24hr 240 mg PO BID Qty: 180 3RF clonidine HCl 0.3 mg tablet 0.3 mg PO TID@0800,1200,2000 Qty: 90 6RF pantoprazole 40 mg tablet,delayed release (DR/EC) 40 mg PO BID Qty: 60 0RF carvedilol 25 mg tablet 25 mg PO BID 0RF tizanidine 4 mg tablet 4 mg PO QID@08,12,16,20 0RF ondansetron 8 mg tablet,disintegrating 8 mg PO Q8H PRN (Reason: Nausea And Vomiting) 0RF ergocalciferol (vitamin D2) 1,250 mcg (50,000 unit) capsule 50,000 unit PO Q7D 0RF Rx Instructions: for 8 doses levothyroxine 100 mcg tablet 100 mcg PO QAM 0RF Ozempic 0.25 mg or 0.5 mg(2 mg/1.5 mL) pen injector 0.5 mg SUBCUT Q7D 0RF Rx Instructions: on sat Held metformin 500 mg tablet 500 mg PO BID Qty: 180 3RF Hold Instructions: Resume on 12/14/21. Rx Instructions: Take one tablet by mouth twice a day. Discharge Orders: Discharge Order (Routine); Ordered 12/12/21 Ordered By: Raymundo Castañeda Other Ambulatory Orders: Basic Metabolic Panel (Routine) Timeframe: 1 Week Facility: [facility] - Location: Lab - Main Lab Ordered By: Isa Hernandez Referrals: Michelle Rico FNP [Primary Care Provider] - 1 week (Please call for an follow-up appointment in 1 week. ) Chula Stover FNP [Nurse Practitioner] - 7-10 days ([facility] will contact you to schedule an follow-up appointment in 7 t 10 days. If you haven't heard from them by Tuesday. Please call ) Isa Hernandez MD [Physician] - 02/23/22 3:00 pm (Please keep your appointment with Dr. Hernandez on February 23 at 3:00P.M. If you have any questions or need to reschedule. Please call ) Discharge Diet: Diabetic Patient Instructions: Isosorbide Mononitrate (By mouth) (Imdur, Imdur ER, Ismo), Heart Catheterization (DC), Chest Pain Stoplight, Opioid Safety, Post Angiogram Home Care Instructions Activity Restrictions/Additional Instructions: Do not lift anything more than 5 lbs for 1 week. Keep the site dry and clean Take medications as prescribed and follow up as scheduled. Discharge Attestations Time Spent in Discharge Care*: less than 30 min Quality Metrics Clinical Quality Measures [ No reported AMI, CVA or VTE this stay] Coding Level of Care Code Acute Chg FW DC note Diagnoses Chest pain R07.9 Hypertensive urgency, malignant I16.0 DM2 (diabetes mellitus, type 2) E11.9 CKD (chronic kidney disease) N18.9
[2021-12-12 11:53] LABS: Glucose Point of Care 137 mg/dL (70-110)
--- NOTE | 2021-12-12 12:23 | PC.NURSE ---
Discharge Note Patient discharged to home via wheelchair accompanied by family member. Discharge instructions reviewed with patient and/or lead customer service representative. Mobile pharmacy medications and/or prescriptions provided. Belongings/home medications returned.
== END 2021-12-12 12:25 | disposition home or self-care (01) | DRG 287 ==
LOC: ER 10:04 → ICU 11:47 → MEDSURG 12-10 15:00 → CSU 12-12 07:02
PROVIDERS: Internal Medicine Cardiovascular Disease; Admitting Provider Internal Medicine; Emergency Provider Family Medicine; PCP Nurse Practitioner Family; Visit Provider Internal Medicine
PROC: 4A023N7 Measurement of Cardiac Sampling and Pressure, Left Heart, Percutaneous Approach (ICD-10-PCS; principal; 2021-12-11 13:00)
DX: I16.0 Hypertensive urgency (principal); N17.9 Acute kidney failure, unspecified; I25.10 Atherosclerotic heart disease of native coronary artery without angina pectoris; Z98.61 Coronary angioplasty status; F41.1 Generalized anxiety disorder; E11.22 Type 2 diabetes mellitus with diabetic chronic kidney disease; I12.9 Hypertensive chronic kidney disease with stage 1 through stage 4 chronic kidney disease, or unspecified chronic kidney disease; N18.31 Chronic kidney disease, stage 3a; Z86.711 Personal history of pulmonary embolism; E89.0 Postprocedural hypothyroidism; R07.9 Chest pain, unspecified; R11.2 Nausea with vomiting, unspecified; Z79.891 Long term (current) use of opiate analgesic
CPT/HCPCS: 36415; 36416; 70450; 71045; 80048; 80053; 80178; 80306; 81001; 82009; 82962; 83605; 83735; 84443; 84484; 85025; 93005; 93452; 96372; 96374; 96375; 96376; 99285; C1769; C1887; C1894; C8924; C9113; J1170; J1644; J1650; J1815; J2060; J2250; J2270; J2360; J2405; J2550; J2765; J3010; J3490; J7030; Q0163; Q9956; Q9967

== ENCOUNTER 2021-12-22 03:38 | Emergency (ER) | payer OTHER, SELFPAY ==
[2021-12-22] VITALS (10 sets, daily range): BP systolic 132–201; BP diastolic 90–169; PULSE 89–145; RESP 14–17; TEMP 36.7; O2SAT 92–100; BMI 36.1
--- NOTE | 2021-12-22 03:43 | ECG_ITS ---
[facility] Test Date: 2021-12-22 Pat Name: Nina Garcia Department: Room: Gender: Female Him Manager: : 1980 Requested By: James Mohan Order Number: [id number] Chan MD: Isa Hernandez M.D. Measurements Intervals [place] Rate: 128 P: 32 DC: 142 QRS: 99 QRSD: 82 T: 33 QT: 294 QTc: 429 Interpretive Statements SINUS TACHYCARDIA BORDERLINE RIGHT AXIS DEVIATION [QRS AXIS > 90] MINIMAL ST DEPRESSION [0.025+ mV ST DEPRESSION] Compared to ECG 12/11/2021 07:53:29 ST (T wave) deviation now present Sinus rhythm no longer present Electronically Signed On 12-22-2021 23:19:51 CDT by Isa Hernandez M.D. [email or web address]
--- NOTE | 2021-12-22 03:43 | XRR_ITS ---
PROCEDURE INFORMATION: Exam: XR Chest Exam date and time: 12/22/2021 4:02 AM Age: 41 years old Clinical indication: Cough; Sternal or substernal pain; Prior surgery; Surgery date: 6+ months; Surgery type: Thyroid; Additional info: Cp TECHNIQUE: Imaging protocol: XR of the chest. Views: 1 view. COMPARISON: CR (CHEST, ) 12/09/2021 7:23 AM FINDINGS: Lungs: Unremarkable. No consolidation. Pleural spaces: Unremarkable. No pleural effusion. No pneumothorax. Heart/Mediastinum: Unremarkable. No cardiomegaly. Bones/joints: Plate fixation lower cervical spine. XR/XR chest 1V portable [id number] IMPRESSION: 1. No acute cardiopulmonary process.
--- NOTE | 2021-12-22 03:51 | W.ED.CHESTPA ---
HPI - Chest Pain General: Chief Complaint: Chest Pain Stated Complaint: N\V\ Chest pains Angiogram last week' Time Seen by Provider: 12/22/21 03:41 Source: patient Mode of arrival: ambulatory Limitations: no limitations History of Present Illness: 41-year-old female states that since 5 PM she has been hypertensive with headache along with chest pain and nausea and vomiting states she gets these episodes at times she was admitted here 2 weeks ago did have a negative cardiac cath then. States she has a hard time controlling her blood pressure at home. Patient denies any fever denies any worsening improving factors Associated symptoms: Reports nausea and vomiting; Deny abdominal pain, dyspnea or fever(s) Review of Systems Const: Denies: fever(s), chills, body aches or change in appetite Eyes: Denies: blurry vision or eye discomfort ENMT: Denies: throat pain or dental pain Card: Reports: chest pain Resp: Denies: dyspnea GI: Reports: nausea and vomiting; Denies: abdominal pain or diarrhea : Denies: dysuria Musc: Denies: neck pain or back pain Skin/Breast: Denies: rash Neuro: Reports: headache(s) Psych: Denies: depression [place]/Lymph: Denies: easy bruising All/Imm: Denies: urticaria PFSH ED PFSH: Medical History SHELTON (acute kidney injury) Bipolar 1 disorder Bipolar 1 disorder, depressed, full remission Chest pain Chest pain at rest Chronic back pain Chronic neck and back pain Chronic renal disease CKD (chronic kidney disease) DM2 (diabetes mellitus, type 2) Generalized anxiety disorder HLD (hyperlipidemia) Hypertensive emergency Hypertensive urgency, malignant Hypothyroid Hypothyroidism Hypothyroidism Malignant hypertension Nausea & vomiting Palpitation Post traumatic stress disorder (PTSD) Psychiatric care Pulmonary embolism Surgical History H/O angioplasty H/O esophagogastroduodenoscopy (08/12/20) H/O rectal polypectomy H/O total thyroidectomy History of appendectomy History of bilateral oophorectomy 2011 History of colonoscopy with polypectomy (08/12/20) History of spinal fusion 10/01/2013- C5-6, ACDFF Dr. Villanueva History of suburethral sling procedure anterior colporrhapy augmentd with porcine graft, cystoscopy performed on 03/08/[address] Haley History of total hysterectomy 2000 Hx of cholecystectomy Status post hemilaminotomy 01/06/2012, right L5-S1, disectomy and foraminotomy per Dr. Villanueva Family History Mother Diabetes Pancreatic cancer Ovarian cancer Father Diabetes Hypertension Stroke COPD (chronic obstructive pulmonary disease) Grandfather Hypertension maternal Heart disease maternal Grandmother Colon cancer maternal Social History Smoking and tobacco status: never smoked Second hand smoke exposure: Yes Smoking risk assessment/counseling performed?: Yes Alcohol intake: never Desire information about alcohol rehabilitation?: No Counseling given: No Desire information about substance/drug rehabilitation?: No Counseling given: Yes Caregiver/support person: No Lives independently: Yes Household members: spouse Housing: House Marital status: Number of children: 8 Highest education level completed: GED or Equivalent service: No Current occupational status: unemployed History of recent travel: No Additional social history: well balanced diet Physical Exam Const: COMMON NORMALS: patient oriented x3 and healthy appearing HENMT: COMMON NORMALS: normocephalic and atraumatic HEAD & SCALP: normocephalic and atraumatic Eye: COMMON NORMALS: Equal, round and reactive pupils present and EOMs intact bilaterally PUPIL: Yes Equal, round and reactive pupils present Neck/C-Spine: COMMON NORMALS: full ROM and supple Chest: COMMONS NORMALS: normal inspection of the chest and normal palpation of entire chest wall Resp: COMMON NORMALS: normal respiratory effort, No retractions, No use of accessory muscles and clear to auscultation bilaterally AUSCULTATION: clear to auscultation bilaterally Cardio: COMMON NORMALS: regular rhythm and No murmurs present (Cardio) RATE: tachycardic RHYTHM: regular rhythm GI: COMMON NORMALS: Normal to inspection, nondistended, normoactive bowel sounds present, Soft to palpation, non-tender and no masses PALPATION: Yes Soft to palpation Extremity: COMMON NORMALS: normal to inspection and full ROM Neuro: COMMON NORMALS: patient oriented x3, moves all extremities and no focal motor deficits Psych: COMMON NORMALS: mental status grossly normal, Normal thought process present and cooperative THOUGHT PROCESS: Normal thought process present Skin: COMMON NORMALS: no rashes or lesions noted and no wounds GENERAL SKIN EXAM: no rashes or lesions noted Course Vital Signs: Vital signs: Vital Signs Temperature 98.0 F 12/22/21 03:47 Pulse Rate 90 12/22/21 05:20 Respiratory Rate 14 12/22/21 05:20 Blood Pressure 157/98 12/22/21 05:20 Pulse Oximetry 92 12/22/21 05:20 MDM - Chest Pain Medical Decision Making Patient presents with hypertension that is chronic in nature she feels much improved on her blood pressure is down she did have a headache head CT is normal blood work here is normal troponins does have a slightly elevated white count. Slightly dehydrated she has no signs of infection here she is stable for discharge she is to return if worsening Lab Data : 12/22/21 04:03 12/22/21 04:03 Radiology Impressions Chest X-Ray 12/22/21 03:43 IMPRESSION: 1. No acute cardiopulmonary process. Head CT 12/22/21 04:52 IMPRESSION: No acute intracranial abnormality. ASSESSMENT: ASPECTS ([place] Stroke Program Early CT Score) is 10. Laboratory Results WBC 15.8 10^3/uL (4.0-10.0) H 12/22/21 04:03 RBC 6.08 10^6/uL (4.1-5.3) H 12/22/21 04:03 Hgb 16.0 g/dL (11.5-15.3) H 12/22/21 04:03 Hct 52.8 % (37.0-47.0) H 12/22/21 04:03 MCV 86.8 fl (81-99) 12/22/21 04:03 MCH 26.3 pg (28.0-34.0) L 12/22/21 04:03 MCHC 30.3 g/dL (30.0-36.0) 12/22/21 04:03 RDW 17.5 % (12.1-15.1) H 12/22/21 04:03 Plt Count 401 10^3/cmm (130-400) H 12/22/21 04:03 MPV 12.1 fL (7.4-10.4) H 12/22/21 04:03 Neut % (Auto) 78.9 % 12/22/21 04:03 Lymph % (Auto) 13.9 % 12/22/21 04:03 [place] % (Auto) 5.2 % 12/22/21 04:03 Eos % (Auto) 0.7 % 12/22/21 04:03 Baso % (Auto) 0.7 % 12/22/21 04:03 Neut # (Auto) 12.44 10^3/uL (1.8-7.7) H 12/22/21 04:03 Lymph # (Auto) 2.2 10^3/uL (0.8-4.8) 12/22/21 04:03 [place] # (Auto) 0.8 10^3/uL (0.2-0.9) 12/22/21 04:03 Eos # (Auto) 0.1 10^3/uL (0.0-0.8) 12/22/21 04:03 Baso # (Auto) 0.1 10^3/uL (0.0-0.1) 12/22/21 04:03 Nucleated RBC % (auto) 0 % 12/22/21 04:03 Nucleated RBCs # 0.0 /100WBC 12/22/21 04:03 PT 13.60 SECONDS (12.1-14.9) 12/22/21 04:25 INR 1.01 (0.8-1.2) 12/22/21 04:25 Sodium 136 mmol/L (136-145) 12/22/21 04:03 Potassium 3.6 mmol/L (3.5-5.1) 12/22/21 04:03 Chloride 97 mmol/L (98-107) L 12/22/21 04:03 Carbon Dioxide 20 mmol/L (22-29) L 12/22/21 04:03 Anion Gap 22.6 (5-19) H 12/22/21 04:03 BUN 6 mg/dL (6-20) 12/22/21 04:03 Creatinine 1.6 mg/dL (0.5-0.9) H 12/22/21 04:03 GFR Calculation 35.2 mL/min (90-130) L 12/22/21 04:03 Glucose 177 mg/dL (65-115) H 12/22/21 04:03 Calculated Osmolality 284 mOsm/kg (285-295) L 12/22/21 04:03 Calcium 9.4 mg/dL (8.5-10.5) 12/22/21 04:03 Total Bilirubin 0.9 mg/dL (0.15-1.2) 12/22/21 04:03 AST 123 U/L (0-32) H 12/22/21 04:03 ALT 91 U/L (0-33) H 12/22/21 04:03 Alkaline Phosphatase 120 IU/L (35-105) H 12/22/21 04:03 Troponin T Baseline 8 ng/L (0-10) 12/22/21 04:03 Total Protein 9.1 g/dL (6.6-8.7) H 12/22/21 04:03 Albumin 5.2 g/dL (3.5-5.2) 12/22/21 04:03 Globulin 3.9 g/dL (1.3-4.6) 12/22/21 04:03 EKG Data EKG 1: I personally reviewed and interpreted this EKG as follows: EKG interpretation date: 12/22/21 EKG interpretation time: 03:48 Interpretation: sinus tach hr [address] or t wave abnormalities qrs 82 qtc 370 Discharge Plan Discharge Patient Disposition: Home Clinical Impression: Headache, Hypertension Condition: Stable Prescriptions: No Action hydrocodone-acetaminophen 5-325 mg tablet 1 - 2 tab PO Q6H PRN (Reason: Pain) 0RF Latuda 60 mg tablet 60 mg PO DAILY Qty: 30 11RF Rx Instructions: must administer with food (at least 350 calories) lithium carbonate 600 mg capsule 600 mg PO BID Qty: 60 5RF lamotrigine [Lamictal] 200 mg tablet 200 mg PO QAM Qty: 30 11RF lorazepam [Ativan] 2 mg tablet See Rx Instructions PO .COMPLEX Qty: 60 5RF Rx Instructions: 1/2 (1mg) tablet in am 1/2 (1mg) tablet at noon and 1 (2mg) tablet at bedtime hydromorphone 4 mg tablet 4 mg PO QID PRN (Reason: Pain) 0RF furosemide 20 mg tablet 20 mg PO DAILY Qty: 90 3RF diltiazem HCl 240 mg capsule,extended release 24hr 240 mg PO BID Qty: 180 3RF clonidine HCl 0.3 mg tablet 0.3 mg PO TID@0800,1200,2000 Qty: 90 6RF metformin 500 mg tablet 500 mg PO BID Qty: 180 3RF Hold Instructions: Resume on 12/14/21. Rx Instructions: Take one tablet by mouth twice a day. pantoprazole 40 mg tablet,delayed release (DR/EC) 40 mg PO BID Qty: 60 0RF carvedilol 25 mg tablet 25 mg PO BID 0RF tizanidine 4 mg tablet 4 mg PO QID@08,12,16,20 0RF ondansetron 8 mg tablet,disintegrating 8 mg PO Q8H PRN (Reason: Nausea And Vomiting) 0RF ergocalciferol (vitamin D2) 1,250 mcg (50,000 unit) capsule 50,000 unit PO Q7D 0RF Rx Instructions: for 8 doses levothyroxine 100 mcg tablet 100 mcg PO QAM 0RF Ozempic 0.25 mg or 0.5 mg(2 mg/1.5 mL) pen injector 0.5 mg SUBCUT Q7D 0RF Rx Instructions: on sat isosorbide mononitrate 30 mg Tablet Extended Release 24 Hr 30 mg PO BID Qty: 60 3RF Rx Instructions: Use evening dose of imdur if BP> 130/80 mm Hg Discharge Orders: Discharge ED (Routine); Ordered 12/22/21 Ordered By: James Mohan Referrals: Michelle Rico FNP [Primary Care Provider] - Discharge Diet: Advance as tolerated Discharge Activity: Resume usual activity Patient Instructions: Hypertension (ED) Coding Level of Care Code ED [employer] for Chg Fwd Exam Comprehensive
[2021-12-22] MEDS: labetalol 5 mg/mL SDV 20mL 10 MG IVP (03:54)
[2021-12-22] MEDS: metoclopramide 5 mg/mL SDV 2 mL 10 MG IVP (03:55)
[2021-12-22] MEDS: diphenhydrAMINE 50 mg/mL SDV 1mL IVP (03:55)
[2021-12-22 04:08] LABS: Basophils # 0.1 10^3/uL (0.0-0.1); Basophils % 0.7 %; Eosinophils # 0.1 10^3/uL (0.0-0.8); Eosinophils % 0.7 %; Hematocrit 52.8 % (37.0-47.0); Lymphocytes # 2.2 10^3/uL (0.8-4.8); Lymphocytes % 13.9 %; Mean Corpuscular HGB Conc 30.3 g/dL (30.0-36.0); Mean Corpuscular Hemoglobin 26.3 pg (28.0-34.0); Mean Corpuscular Volume 86.8 fl (81-99); Mean Platelet Volume 12.1 fL (7.4-10.4); Monocytes # 0.8 10^3/uL (0.2-0.9); Monocytes % 5.2 %; Neutrophils # 12.44 10^3/uL (1.8-7.7); Neutrophils % 78.9 %; Nucleated Red Blood Cells % 0 %; Platelet Count 401 10^3/cmm (130-400); Red Blood Count 6.08 10^6/uL (4.1-5.3); Red Cell Distribution Width 17.5 % (12.1-15.1); White Blood Count 15.8 10^3/uL (4.0-10.0)
[2021-12-22] MEDS: labetalol 5 mg/mL SDV 20mL 20 MG IVP (04:25)
[2021-12-22 04:29] LABS: Alanine Aminotransferase 91 U/L (0-33); Albumin Level 5.2 g/dL (3.5-5.2); Alkaline Phosphatase 120 IU/L (35-105); Anion Gap 22.6 (5-19); Aspartate Amino Transferase 123 U/L (0-32); Blood Urea Nitrogen 6 mg/dL (6-20); Calcium 9.4 mg/dL (8.5-10.5); Carbon Dioxide 20 mmol/L (22-29); Chloride 97 mmol/L (98-107); Globulin 3.9 g/dL (1.3-4.6); Glomerular Filtration Rate 35.2 mL/min (90-130); Glucose 177 mg/dL (65-115); Osmolality Calculated 284 mOsm/kg (285-295); Potassium 3.6 mmol/L (3.5-5.1); Sodium 136 mmol/L (136-145); Total Bilirubin 0.9 mg/dL (0.15-1.2); Total Protein 9.1 g/dL (6.6-8.7)
[2021-12-22 04:30] LABS: Troponin(5th) Baseline 8 ng/L (0-10)
[2021-12-22 04:49] LABS: INR 1.01 (0.8-1.2)
--- NOTE | 2021-12-22 04:52 | CTR_ITS ---
PROCEDURE INFORMATION: Exam: CT Head Without Contrast Exam date and time: 12/22/2021 5:03 AM Age: 41 years old Clinical indication: Pain; Headache; Additional info: PRATHER TECHNIQUE: Imaging protocol: Computed tomography of the head without contrast. Radiation optimization: All CT scans at this facility use at least one of these dose optimization techniques: automated exposure control; mA and/or kV adjustment per patient size (includes targeted exams where dose is matched to clinical indication); or iterative reconstruction. Other technique: STROKE PROTOCOL was implemented. COMPARISON: CT head wo con* [id number] 12/09/2021 9:37 AM RADIATION DOSE METRICS: Total DLP (mGy-cm): 829.33 FINDINGS: Brain: Normal. No hemorrhage. Unremarkable white matter. No mass effect. Cerebral ventricles: No ventriculomegaly. Paranasal sinuses: Visualized sinuses are unremarkable. No fluid levels. Mastoid air cells: Increased sclerosis or diminutive aeration of mastoid air cells bilaterally. Bones/joints: Unremarkable. No acute fracture. Soft tissues: Unremarkable. CT/CT head wo con* [id number] IMPRESSION: No acute intracranial abnormality. ASSESSMENT: ASPECTS ([place] Stroke Program Early CT Score) is 10.
[2021-12-22] MEDS: HYDROmorphone 1 mg/mL INJ 1 mL IVP (05:12)
[2021-12-22] MEDS: sodium chloride 0.9% 500 ML 999 ML IV (05:12)
[2021-12-22] MEDS: ondansetron 2 mg/ML SDV 2 mL 4 MG IVP (05:13)
== END 2021-12-22 06:19 | disposition home or self-care (01) ==
PROVIDERS: Emergency Provider Emergency Medicine; PCP Nurse Practitioner Family
DX: I10 Essential (primary) hypertension (principal); R51.9 Headache, unspecified; Z79.891 Long term (current) use of opiate analgesic
CPT/HCPCS: 70450; 71045; 80053; 84484; 85025; 85610; 93005; 96374; 96375; 96376; 99284; J1170; J1200; J2405; J2765; J3490; J7040

== ENCOUNTER 2022-01-01 05:47 | Day surgery (SDC) | payer OTHER, SELFPAY ==
--- NOTE | 2021-12-28 14:00 | P.ANESASSM_ITS ---
Pre-Anesthetic Assessment Height/Weight: Height 1.65 m Weight 97.976 kg Preop Diagnosis: chest pain Operation Date: 01/01/22 07:00 Proposed Procedures p Right sided Lumbar Spine Decompression L4/5,5/1 79677/18501/m54.50/m79.604/m51.36(Right) - Yuri Galloway DO Familial anesthetic complications: none Was Beta Jumana taken within 24 hours: Yes Was Clonidine taken within 24 hours: Yes Social No alcohol and No tobacco Exam alert, oriented x 3, clear to auscultation bilaterally and regular rate & rhythm Airway Submandibular: within normal limits Cervical ROM: within normal limits Mallampati: Class II Dentition: false CV/HEM Hypertension Chronic Renal Insufficiency Metabolic Diabetes Mellitus, Morbid Obesity and Thyroid Disease Musc/skel Lower Back Pain and Osteoarthritis/DJD chronic pain/opioid Neuropsych Bipolar and Headache Anesthetic Plan ASA status: 3 Anesthesia: General Medications/Allergies Home Medications Medication Instructions Recorded Confirmed Last Taken Type hydromorphone 4 mg tablet 4 mg PO QID PRN tab 08/30/19 12/28/21 07/22/21 History carvedilol 25 mg tablet 25 mg PO BID 07/23/21 12/28/21 Unknown History furosemide 20 mg tablet 20 mg PO DAILY #90 tab 07/30/21 12/28/21 Unknown Rx hydrocodone 5 mg-acetaminophen 325 1 - 2 tab PO Q6H PRN 08/10/21 12/28/21 Unknown History mg tablet lamotrigine 200 mg tablet 200 mg PO QAM #30 tab 11/16/21 12/28/21 Unknown Rx (Lamictal) lithium carbonate 600 mg capsule 600 mg PO BID #60 cap 11/16/21 12/28/21 Unknown Rx lorazepam 2 mg tablet (Ativan) See Rx Instructions PO .COMPLEX 11/16/21 12/28/21 Unknown Rx #60 tab lurasidone 60 mg tablet (Latuda) 60 mg PO DAILY #30 tab 11/16/21 12/28/21 Unknown Rx diltiazem HCl 240 mg 240 mg PO BID #180 cap 11/18/21 12/28/21 Unknown Rx capsule,extended release 24 hr levothyroxine 100 mcg tablet 100 mcg PO QAM 12/09/21 12/28/21 Unknown History ondansetron 8 mg disintegrating 8 mg PO Q8H PRN 12/09/21 12/28/21 Unknown History tablet semaglutide (Ozempic) 0.5 mg SUBCUT Q7D 12/09/21 12/28/21 12/05/21 History tizanidine 4 mg tablet 4 mg PO QID@08,12,16,20 12/09/21 12/28/21 Unknown History clonidine HCl 0.3 mg tablet 0.3 mg PO TID@0800,1200,2000 #90 12/10/21 12/28/21 U nknown Rx tab metformin 500 mg tablet 500 mg PO BID #180 tab 12/10/21 12/28/21 Unknown Rx pantoprazole 40 mg tablet,delayed 40 mg PO BID #60 tab 12/11/21 12/28/21 Unknown Rx release isosorbide mononitrate 30 mg 30 mg PO BID #60 tab 12/12/21 12/28/21 Unknown Rx tablet,extended release 24 hr Allergies Allergy/AdvReac Type Severity Reaction Status Date / Time aspirin Allergy due to BUN Verified 12/28/21 13:00 levels coconut Allergy hives Verified 12/28/21 13:00 ketorolac [From Toradol] Allergy hives Verified 12/28/21 13:00 meloxicam [From Mobic] Allergy hives Verified 12/28/21 13:00 NSAIDS (Non-Steroidal Allergy Unknown Verified 12/28/21 13:00 Anti-Inflamma [facility] Anesthesia Medical History [place] (acute kidney injury) Bipolar 1 disorder Bipolar 1 disorder, depressed, full remission Chest pain Chest pain at rest Chronic back pain Chronic neck and back pain Chronic renal disease CKD (chronic kidney disease) DM2 (diabetes mellitus, type 2) Generalized anxiety disorder HLD (hyperlipidemia) Hypertensive emergency Hypertensive urgency, malignant Hypothyroid Hypothyroidism Hypothyroidism Malignant hypertension Nausea & vomiting Palpitation Post traumatic stress disorder (PTSD) Psychiatric care Pulmonary embolism Surgical History H/O angioplasty H/O esophagogastroduodenoscopy (08/12/20) H/O rectal polypectomy H/O total thyroidectomy History of appendectomy History of bilateral oophorectomy 2011 History of colonoscopy with polypectomy (12/15/20) History of spinal fusion 10/01/2013- C5-6, ACDFF Dr. Villanueva History of suburethral sling procedure anterior colporrhapy augmentd with porcine graft, cystoscopy performed on 03/08/[address] aHley History of total hysterectomy 2000 Hx of cholecystectomy Status post hemilaminotomy 01/06/2012, right L5-S1, disectomy and foraminotomy per Dr. Villanueva Family History Mother Diabetes Pancreatic cancer Ovarian cancer Father Diabetes Hypertension Stroke COPD (chronic obstructive pulmonary disease) Grandfather Hypertension maternal Heart disease maternal Grandmother Colon cancer maternal Social History Smoking and tobacco status: never smoked Second hand smoke exposure: Yes Smoking risk assessment/counseling performed?: Yes Alcohol intake: never Desire information about alcohol rehabilitation?: No Counseling given: No Desire information about substance/drug rehabilitation?: No Counseling given: Yes Caregiver/support person: No Lives independently: Yes Household members: spouse Housing: House Marital status: Number of children: 8 Highest education level completed: GED or Equivalent service: No Current occupational status: unemployed History of recent travel: No Additional social history: well balanced diet Data Anesthesia Cardiac Studies: Echocardiogram 12/11/21
[2022-01-01] VITALS (9 sets, daily range): BP systolic 97–152; BP diastolic 42–109; PULSE 81–102; RESP 16–20; TEMP 36.2–37.2; O2SAT 96–100
--- NOTE | 2022-01-01 | XR_ITS ---
WS: [id number] Lumbar spine, C-arm fluoroscopy, 01/01/2022 Clinical Data: Right sided lumbar decompression Comparison: None. Findings: Dr. Galloway performed a lumbar decompression. XR/XR lumbar spine 1V [id number] Impression: Lumbar decompression.
--- NOTE | 2022-01-01 | SCC_ITS ---
Procedure done: 1. Right L4/5 laminectomy with partial facetectomy 2. Revision Right L5/S1 laminectomy with partial facetectomy 22.0 seconds of fluoroscopic guidance, for a cumulative dose of 11.31 mGy, was provided to Dr. Galloway by the radiology department. C-arm images of the lumbar spine were saved for the patient's permanent record. [facility]
[2022-01-01 06:14] LABS: Glucose Point of Care 124 mg/dL (70-110)
[2022-01-01] MEDS: sodium chloride 0.9% 1,000 ML 30 ML IV (06:17)
[2022-01-01] MEDS: scopolamine 1.5 Patch 1 PATCH TRANSDERMA (06:30)
[2022-01-01] MEDS: fentaNYL 50 mcg/mL INJ 2mL IVP (06:36)
[2022-01-01 06:43] LABS: Estmated Average Glucose 140; Hemoglobin A1C 6.5 % (4.0-6.0)
--- NOTE | 2022-01-01 06:44 | P.ANESUD_ITS ---
Pre-Anesthetic Update Pre-Anesthetic Assessment: Date of Surgery/Procedure: 01/01/22 Preop Tatiana gnosis: Lumbar radiculopathy Proposed Procedure: Operation Date: 01/01/22 07:00 Proposed Procedures p Right sided Lumbar Spine Decompression L4/5,5/1 85244/39791/m54.50/m79.604/m51.36(Right) - Yuri Galloway, DO Any changes to Pre-Anesthetic Assessment?: No Last Intake: Intake Last Liquid Date 12/31/21 Last Liquid Time 22:00 Last Solid Date 12/31/21 Last Solid Time 17:00 Vitals: Temperature 99 F 01/01/22 06:07 Temperature Source Temporal Artery S can 01/01/22 06:07 Pulse Rate 102 H 01/01/22 06:07 Respiratory Rate 18 01/01/22 06:36 Respiratory Effort Non-Labored 01/01/22 06:36 Respiratory Depth Normal 01/01/22 06:36 Respiratory Patter n 01/01/22 06:36 Blood Pressure 97/42 01/01/22 06:07 Blood Pressure Adrienne n 60 01/01/22 06:07 Pulse Oximetry 98 01/01/22 06:36 Oxygen Delivery Me thod 01/01/22 06:07 Exam: Pre-Anes Outpt Exam: alert, oriented x 3, clear to auscultation bilaterally and regular rate & rhythm Cardiac Studies: Echocardiogram 12/11/21
--- NOTE | 2022-01-01 06:44 | P.HP_ITS ---
Providers/Chief Complaint Primary Care Provider: Michelle Rico History of Present Illness Nina Garcia is a 41 year old female Ms Garcia is an established 41 year old female patient here today for evaluation of her lumbar back pain and to discuss her MRI results. Patient states she continues to have increased back pain.? Unfortunately since she was last seen she sustained a fall from a standing position which is caused increased low back pain.? Her fall was after the MRI scan was completed as well.? She describes today increased low back and right lower extremity pain.? She describes any bending twisting activities making her symptoms much worse.? Any prolonged standing or walking makes her leg pain much worse with right side greater than left.? She denies any loss of bowel or bladder control.? She had a surgical decompression by Dr. Villanueva in 2010.? Nina states that she has been through a number of different injections over the years which include facet blocks with radiofrequency ablation procedures, sacroiliac joint injections as well as epidural steroid injections which nothing has offered her any short-term or long-term relief. Associated symptoms: Denies abdominal pain, chills, fatigue, fever(s), nausea or vomiting Review of Systems Const: Denies: fever(s), chills, change in weight, fatigue or diaphoresis Eyes: Denies: change in vision or eye redness ENMT: Denies: throat pain, odynophagia, mouth pain or epistaxis Card: Reports: swelling of feet/ankles and lightheadedness; Denies: chest pain, palpitations, irregular heart rhythm, edema, syncope, pre- syncope, dyspnea on exertion, orthopnea or leg pain with exertion Resp: Denies: dyspnea, productive cough or wheezing GI: Reports: nausea (first day home from hosp) and heartburn (ulcer); Denies: vomiting, hematemesis, hematochezia or melena : Denies: hematuria Musc: Denies: extremity swelling or joint pain Skin/Breast: Denies: rash, pruritus, erythema or new lesions Neuro: Reports: dizziness; Denies: numbness in extremities, weakness in extremities, sensory changes, frequent falls, Slurred speech present or difficulty communicating thoughts Psych: Denies: anxiety, depression, irritability, suicidal ideation or homicidal ideation Endo: Denies: polyuria, polydipsia or excessive sweating Fahad/Lymph: Reports: easy bruising and easy bleeding Medications/Allergies Home Medications Medication Instructions Recorded Confirmed Last Taken Type hydromorphone 4 mg tablet 4 mg PO QID PRN tab 08/30/19 01/01/22 12/31/21 History carvedilol 25 mg tablet 25 mg PO BID 07/23/21 01/01/22 01/01/22 History furosemide 20 mg tablet 20 mg PO DAILY #90 tab 07/30/21 01/01/22 01/01/22 Rx hydrocodone 5 mg-acetaminophen 325 1 - 2 tab PO Q6H PRN 08/10/21 01/01/22 05/02/17 History mg tablet lamotrigine 200 mg tablet 200 mg PO QAM #30 tab 11/16/21 01/01/22 01/01/22 Rx (Lamictal) lithium carbonate 600 mg capsule 600 mg PO BID #60 cap 11/16/21 12/28/21 Unknown Rx lorazepam 2 mg tablet (Ativan) See Rx Instructions PO .COMPLEX 11/16/21 01/01/22 01/01/22 Rx #60 tab lurasidone 60 mg tablet (Latuda) 60 mg PO DAILY #30 tab 11/16/21 01/01/2201/17 Rx diltiazem HCl 240 mg 240 mg PO BID #180 cap 11/18/21 01/01/22 01/01/22 Rx capsule,extended release 24 hr levothyroxine 100 mcg tablet 100 mcg PO QAM 12/09/21 01/01/22 01/01/22 History ondansetron 8 mg disintegrating 8 mg PO Q8H PRN 12/09/21 12/28/21 Unknown History tablet semaglutide (Ozempic) 0.5 mg SUBCUT Q7D 12/09/21 01/01/22 12/28/21 History tizanidine 4 mg tablet 4 mg PO QID@08,12,16,20 12/09/21 01/01/22 12/31/21 History clonidine HCl 0.3 mg tablet 0.3 mg PO TID@0800,1200,2000 #90 12/10/21 01/01/22 12/31/21 Rx tab metformin 500 mg tablet 500 mg PO BID #180 tab 12/10/21 01/01/22 12/31/21 Rx pantoprazole 40 mg tablet,delayed 40 mg PO BID #60 tab 12/11/21 01/01/22 01/01/22 Rx release isosorbide mononitrate 30 mg 30 mg PO BID #60 tab 12/12/21 01/01/22 01/01/22 Rx tablet,extended release 24 hr Allergies Allergy/AdvReac Type Severity Reaction Status Date / Time aspirin Allergy due to BUN Verified 12/28/21 13:00 levels coconut Allergy hives Verified 12/28/21 13:00 ketorolac [From Toradol] Allergy hives Verified 12/28/21 13:00 meloxicam [From Mobic] Allergy hives Verified 12/28/21 13:00 NSAIDS (Non-Steroidal Allergy Unknown Verified 12/28/21 13:00 Anti-Inflamma PFSH Acute PFSH: Medical History [place] (acute kidney injury) Bipolar 1 disorder Bipolar 1 disorder, depressed, full remission Chest pain Chest pain at rest Chronic back pain Chronic neck and back pain Chronic renal disease CKD (chronic kidney disease) DM2 (diabetes mellitus, type 2) Generalized anxiety disorder HLD (hyperlipidemia) Hypertensive emergency Hypertensive urgency, malignant Hypothyroid Hypothyroidism Hypothyroidism Malignant hypertension Nausea & vomiting Palpitation Post traumatic stress disorder (PTSD) Psychiatric care Pulmonary embolism Surgical History H/O angioplasty H/O esophagogastroduodenoscopy (08/12/20) H/O rectal polypectomy H/O total thyroidectomy History of appendectomy History of bilateral oophorectomy 2011 History of colonoscopy with polypectomy (08/12/20) History of spinal fusion 10/01/2013- C5-6, ACDFF Dr. Villanueva History of suburethral sling procedure anterior colporrhapy augmentd with porcine graft, cystoscopy performed on 03/08/[address] Haley History of total hysterectomy 2000 Hx of cholecystectomy Status post hemilaminotomy 01/06/2012, right L5-S1, disectomy and foraminotomy per Dr. Villanueva Family History Mother Diabetes Pancreatic cancer Ovarian cancer Father Diabetes Hypertension Stroke COPD (chronic obstructive pulmonary disease) Grandfather Hypertension maternal Heart disease maternal Grandmother Colon cancer maternal Social History Smoking and tobacco status: never smoked Second hand smoke exposure: Yes Smoking risk assessment/counseling performed?: Yes Alcohol intake: never Desire information about alcohol rehabilitation?: No Counseling given: No Desire information about substance/drug rehabilitation?: No Counseling given: Yes Caregiver/support person: No Lives independently: Yes Household members: spouse Housing: House Marital status: Number of children: 8 Highest education level completed: GED or Equivalent service: No Current occupational status: unemployed History of recent travel: No Additional social history: well balanced diet Vitals/I&O/Wt Last Vital Signs Temp 99 F 01/01/22 06:07 Pulse 102 H 01/01/22 06:07 Resp 18 01/01/22 06:36 BP 97/42 01/01/22 06:07 Pulse Ox 98 01/01/22 06:36 Physical Exam Narrative: CONSTITUTIONAL: The patient is a normal appearing [] in no apparent distress. GENERAL: Patient in no acute distress. CARDIAC: Regular rate and rhythm. CHEST: Normal inspiratory effort, normal respiratory rate. ABDOMEN: Soft and nontender. SKIN: Clear, warm and intact. NEURO?PSYCH: The patient is alert and oriented to person, place and time. Sensorv /SILT Motor StrengthShoulder abduction C5 5/5Wrist extension C6 5/5Elbow extension C7 5/5Hand Java Portal Developer C8 5/5Finger abduction T15/5 Radial/ Ulnar/ Median n intact LowerSensory (SILT)Motor StrengthHin flexion L2/3Ant/inner thigh 5/5Hip adduction L2/3 5/5Knee extension L4 Lat thigh, 5/5Toe dorsiflexion L5 5/5Ankle dorsiflexion L5/ Y89Wogzazu flexion S1 5/5 DTRBleeps 2+Triceps 2+Brachioradialis 2+Patellar 2+Achilles 2+ MUSCULOSKELETAL: [] UPPEREXTREMITIES: The patient had full active ROM in fingers, wrist, elbow, and shoulder. The patient demonstrated ability to fully flex/extend/abduct/adduct fingers, make ok sign, cross 2nd/3rd digits, extend 1st digit fully.. Radial pulse 2+, CR<2 seconds. LOWER EXTREMITIES: Pt has full, active ROM of toes, ankle, knee, and hip. Dorsalis pedis/posterior tibialis pulses 2+, CR<2 seconds. SPINE: Skin warm, dry, intact. A&P Assessment and plan (1) Lumbar stenosis with neurogenic claudication: MIS decompression Status: Acute Attestations Medical Necessity Statement*: failed conservative tx Coding Level of Care Code Acute Press Room Supervisor for [facility] Fwd Diagnoses Lumbar stenosis with neurogenic claudication M48.062
--- NOTE | 2022-01-01 08:08 | PM.OP ---
Operative Report Date of procedure: January 01, 2022 Pre-op diagnosis: Preop Diagnosis Lumbar radiculopathy Post-op diagnosis: same Procedure done: 1. Right L4/5 laminectomy with partial facetectomy 2. Revision Right L5/S1 laminectomy with partial facetectomy Surgeon: Yuri Galloway Estimated blood loss (mL): 5 Procedure: 1. Right L4/5 laminectomy with partial facetectomy 2. Revision Right L5/S1 laminectomy with partial facetectomy Patient is brought to the operative suite. After undergoing anesthesia they are placed in the prone position. All areas of impingement are well padded. Patient is then prepped and draped in the normal sterile fashion. A skin incision is made over the L4/5 level. This is confirmed under c-arm guidance. A series of dilators are passed and the tubular retractor is docked on the L4 lamina. A bovie is used to clear the soft tissue off the lamina and the L 4/5 facet joint. A high speed bernice is then used to perform the laminectomy and take down the medial aspect of the L 4/5 facet joint. A kerrison rongeure was then used to take down the remaining lamina and smooth the edge of the laminectomy up to the point where the ligamentum flavum attaches. Attention was then brought to the medial aspect of the facet joint. The remaining medial aspect of the superior and inferior aspect of the facet joint were taken down with the kerrison from the pedicle of L4 to L 5. The facet joint had significant hypertrophy. Attention was then brought to the Ligamentum Flavum. The ligament was taken down from the lamina of L4 to L5 and out medially to the remaining facet joint. The ligament was thick. The dura was then exposed. The dura was in good repair. The L4 nerve was then traced with a curette out the L4/5 foramen and found to be adequately decompressed. The L5 nerve was traced with a curette around the L5 pedicle. The lateral recess was opened with a kerrison helping to further decompress the L5 nerve. Wound is then irrigated copiously with saline and surgiflo is used to stop any bleeding. The tubular retractor is removed and A skin incision is made over the L5/S1 level. This is confirmed under c-arm guidance. A series of dilators are passed and the tubular retractor is docked on the L5 lamina. A bovie is used to clear the soft tissue and scar off the lamina and the L 5/S1 facet joint. A high speed bernice is then used to perform the laminectomy and take down the medial aspect of the L 5/S1 facet joint further than the previous laminectomy with partial vasectomy were performed. A kerrison rongeure was then used to take down the remaining lamina and smooth the edge of the laminectomy up to the point where the ligamentum flavum attaches. Attention was then brought to the medial aspect of the facet joint. The remaining medial aspect of the superior and inferior aspect of the facet joint were taken down with the kerrison from the pedicle of L5 to S1. The facet joint had significant hypertrophy. Attention was then brought to the Ligamentum Flavum. The ligament was taken down from the lamina of L5 to S1 and out medially to the remaining facet joint. The ligament was thick. The dura was then exposed. The dura was in good repair. The L5 nerve was then traced with a curette out the L5/S1 foramen and found to be adequately decompressed. The S1 nerve was traced with a curette around the S1 pedicle. The lateral recess was opened with a kerrison helping to further decompress the S1 nerve. Wound is then irrigated copiously with saline and surgiflo is used to stop any bleeding. The tubular retractor is removed and the wound is closed with vicryl and monocryl suture. Glue is then used to protect the wound. A sterile dressing is then placed. Patient was then placed in the supine position and transferred to the PACU in stable condition.
--- NOTE | 2022-01-01 08:28 | SUR.PHASEI ---
08:20 RECEIVED PATIENT FROM OR STAFF. VENTILATING WELL. NSR ON MONITOR. RESPONDS TO VERBAL. 08:29 ORAL AIRWAY DC ED. PATIENT ABLE TO COUGH WHEN INSTRUCTED. NO DYSPNEA NOTED. ROM AND SENSATION X 4 EXTREMITIES.
[2022-01-01] MEDS: HYDROcodone-acetaminophen 5-325 mg Tablet 1 TAB PO (09:17)
--- NOTE | 2022-01-01 11:32 | ANE.PACU2 ---
Inpatient post-anesthesia follow up: Airway intact: Yes Vital signs: Temperature 97.2 F Pulse Rate 82 Respiratory Rate 16 Blood Pressure 128/70 Pulse Oximetry 97 Oxygen Delivery Me thod Room Air Oxygen Flow Rate 8 Fraction of Inspir ed Oxygen Hydration adequate: Yes Nausea and vomiting: No Pain level: 3 Mental status: Baseline
== END 2022-01-01 09:21 | disposition home or self-care (01) ==
PROVIDERS: Anesthesiology; PCP Nurse Practitioner Family; Visit Provider Orthopaedic Surgery
PROC: (CPT 63005; principal; 2022-01-01 07:00)
DX: M48.02 Spinal stenosis, cervical region (principal); E11.22 Type 2 diabetes mellitus with diabetic chronic kidney disease; N18.9 Chronic kidney disease, unspecified; I13.0 Hypertensive heart and chronic kidney disease with heart failure and stage 1 through stage 4 chronic kidney disease, or unspecified chronic kidney disease; I50.9 Heart failure, unspecified; Z79.84 Long term (current) use of oral hypoglycemic drugs; E78.5 Hyperlipidemia, unspecified; E03.9 Hypothyroidism, unspecified; E66.01 Morbid (severe) obesity due to excess calories; Z68.35 Body mass index [BMI] 35.0-35.9, adult; Z79.891 Long term (current) use of opiate analgesic; G89.29 Other chronic pain
CPT/HCPCS: 63047; 63048; 36415; 36416; 72020; 76000; 82962; 83036; J0690; J1100; J1200; J2250; J2370; J2405; J2704; J2710; J3010; J3490; J7030

== ENCOUNTER → 2022-02-23 15:54 | Outpatient (BNVA) | payer OTHER, SELFPAY | PROVIDERS: PCP Nurse Practitioner Family; Visit Provider Internal Medicine Cardiovascular Disease | DX: R00.0 Tachycardia, unspecified (principal); I10 Essential (primary) hypertension; E78.5 Hyperlipidemia, unspecified; N18.9 Chronic kidney disease, unspecified; E11.9 Type 2 diabetes mellitus without complications; E03.9 Hypothyroidism, unspecified | CPT/HCPCS: 36415; 82306; 84439; 84443; 84481 ==

== ENCOUNTER 2022-03-23 08:48 | Outpatient (CLI) | payer OTHER, SELFPAY ==
--- NOTE | 2022-03-23 08:45 | MR_ITS ---
WS: [id number] MRI CERVICAL SPINE NONCONTRAST TECHNIQUE: Sagittal T1, T2 and STIR imaging. Axial T2, gradient, and fiesta imaging. CLINICAL INFORMATION: neck pain COMPARISON: MRI February 13, 2020 FINDINGS: Straightening of the normal cervical lordosis. Postoperative changes ACDF C5-C6 appears stable. Disc bulging worse at C4-C5 and C6-C7 similar to previous. C2-C3: Mild LEFT bony foraminal narrowing. Mild facet arthropathy. Spinal canal is patent. C3-C4: Mild disc osteophytic ridging. Mild LEFT greater than RIGHT bony foraminal narrowing. Mild fac et arthropathy. Spinal canal is patent. C4-C5: Disc osteophyte complex with endplate ridging. Mild central canal stenosis. Moderate to severe LEFT and mild RIGHT bony foraminal narrowing. Mild facet arthropathy. This appears stable compared t o previous. C5-C6: Postoperative changes ACDF. Spinal canal and foramen are patent. C6-C7: Mild disc bulging and osteophytic ridging. Moderate LEFT foraminal narrowing appears slightly progressed. Mild RIGHT foraminal narrowing. Mild central canal stenosis. This is unchanged compared t o previous. C7-T1: Normal. Visualized brain stem structures: Normal. Prevertebral soft tissues: Normal. MR/MR cervical spin wo con* [id number] IMPRESSION: 1. Straightening of the normal cervical lordosis with mild cervical curve. Sta ble ACDF C5-C6. 2. Mild central canal stenosis C4-C5 and C6-C7 is unchanged. 3. Moderate to severe LEFT C4-C5 bony foraminal narrowing appears stable. 4. Moderate LEFT C6-C7 foraminal narrowing appears slightly progressed compare d to previous 5. No other significant changes compared to previous.
== END 2022-03-23 08:49 | disposition home or self-care (01) ==
LOC: RAD 08:50
PROVIDERS: PCP Nurse Practitioner Family; Visit Provider Orthopaedic Surgery
DX: M48.02 Spinal stenosis, cervical region (principal)
CPT/HCPCS: 72141

== ENCOUNTER 2022-04-20 06:00 | Outpatient (RCR) | payer OTHER, SELFPAY | END 2022-04-28 23:59 | disposition home or self-care (01) | LOC: SPT 06:00 | PROVIDERS: PCP Nurse Practitioner Family; Visit Provider Orthopaedic Surgery | DX: M54.2 Cervicalgia (principal); M54.50 Low back pain, unspecified | CPT/HCPCS: 97161 ==

== ENCOUNTER 2022-05-19 08:59 | Outpatient (CLI) | payer OTHER, SELFPAY ==
[2022-05-19 09:46] LABS: Estmated Average Glucose 131; Hemoglobin A1C 6.2 % (4.0-6.0)
[2022-05-19 09:48] LABS: Free T4 Free Thyroxine 0.95 ng/dL (0.82-1.77); Thyroid Stimulating Hormone 51.28 uIU/mL (0.27-4.20)
[2022-05-19 10:34] LABS: Calcium 9.6 mg/dL (8.5-10.5); Carbon Dioxide 23 mmol/L (22-29); Cholesterol 76 mg/dL (0-200); Triglycerides 93 mg/dL (0-150)
[2022-05-19 10:44] LABS: Anion Gap 17.5 (5-19); Chloride 99 mmol/L (98-107); Potassium 3.5 mmol/L (3.5-5.1); Sodium 136 mmol/L (136-145)
[2022-05-19 11:00] LABS: Blood Urea Nitrogen 22 mg/dL (6-20)
[2022-05-19 11:01] LABS: Chol HDL Ratio 3.17 mg/dL (0.0-4.40); Glucose 128 mg/dL (65-115); HDL Cholesterol 24 mg/dL (60-100); LDL Cholesterol Calculated 33 mg/dL (50-129); LDL HDL Ratio 1.38 RATIO (0.00-3.22); Osmolality Calculated 287 mOsm/kg (285-295)
[2022-05-19 11:02] LABS: Glomerular Filtration Rate 18.4 mL/min (90-130)
== END 2022-05-19 09:00 | disposition home or self-care (01) ==
LOC: LAB 09:02
PROVIDERS: Psychiatry & Neurology Psychiatry; PCP Nurse Practitioner Family; Visit Provider Internal Medicine
DX: Z79.899 Other long term (current) drug therapy (principal); E03.9 Hypothyroidism, unspecified; E11.9 Type 2 diabetes mellitus without complications; N18.9 Chronic kidney disease, unspecified
CPT/HCPCS: 36415; 80048; 80061; 80178; 83036; 84439; 84443

== ENCOUNTER 2022-05-24 08:22 | Outpatient (CLI) | payer OTHER, SELFPAY ==
[2022-05-24 09:35] LABS: Basophils # 0.1 10^3/uL (0.0-0.1); Basophils % 0.9 %; Eosinophils # 0.2 10^3/uL (0.0-0.8); Eosinophils % 1.9 %; Hematocrit 44.1 % (37.0-47.0); Hemoglobin 13.6 g/dL (11.5-15.3); Lymphocytes # 3.1 10^3/uL (0.8-4.8); Lymphocytes % 27.5 %; Mean Corpuscular HGB Conc 30.8 g/dL (30.0-36.0); Mean Corpuscular Volume 87.5 fl (81-99); Mean Platelet Volume 11.1 fL (7.4-10.4); Monocytes # 0.6 10^3/uL (0.2-0.9); Monocytes % 5.8 %; Neutrophils # 6.72 10^3/uL (1.8-7.7); Neutrophils % 60.6 %; Nucleated Red Blood Cells % 0 %; Platelet Count 481 10^3/cmm (130-400); Red Blood Count 5.04 10^6/uL (4.1-5.3); White Blood Count 11.1 10^3/uL (4.0-10.0)
[2022-05-24 09:48] LABS: Urine Color Straw (Yellow)
[2022-05-24 09:50] LABS: Bilirubin Urine Neg (Negative); Blood Urine 2+ (Negative); Glucose Urine UA Norm (Normal); Ketones Urine Negative (Negative); Leukocyte Esterase Urine 2+ (Negative); Nitrate Urine Negative (Negative); Protein Urine Neg (Negative); RBC Urine 0-4 /hpf (0-2); Specific Gravity, Urine 1.005 (1.005-1.030); Urine Appearance Hazy (CLEAR); Urobilinogen Urine Norm (Negative); WBC Urine TOO NUMEROUS TO CNT /hpf (0-5); pH Urine 6 (5-7)
[2022-05-24 09:51] LABS: Add Urine Culture? Yes; Alanine Aminotransferase 15 U/L (0-33); Albumin Level 4.4 g/dL (3.5-5.2); Alkaline Phosphatase 167 U/L (35-105); Anion Gap 16.3 (5-19); Aspartate Amino Transferase 14 U/L (0-32); Bacteria Urine 1+ /hpf; Blood Urea Nitrogen 10 mg/dL (6-20); Calcium 9.7 mg/dL (8.5-10.5); Carbon Dioxide 27 mmol/L (22-29); Chloride 98 mmol/L (98-107); Glomerular Filtration Rate 37.7 mL/min (90-130); Glucose 102 mg/dL (65-115); Magnesium 1.9 mg/dL (1.7-2.3); Osmolality Calculated 285 mOsm/kg (285-295); Potassium 3.3 mmol/L (3.5-5.1); Sodium 138 mmol/L (136-145); Total Bilirubin 0.5 mg/dL (0.15-1.2); Total Protein 9.4 g/dL (6.6-8.7); Uric Acid 6.7 mg/dL (2.4-5.7)
[2022-05-24 10:29] LABS: Calcium 9.8 mg/dL (8.5-10.5)
[2022-05-24 10:36] LABS: Parathyroid Hormone 36.5 pg/mL (15-65)
== END 2022-05-24 08:23 | disposition home or self-care (01) ==
LOC: LAB 08:26
PROVIDERS: PCP Nurse Practitioner Family; Visit Provider Internal Medicine
DX: N18.9 Chronic kidney disease, unspecified (principal)
CPT/HCPCS: 36415; 80048; 80076; 81001; 82310; 83735; 83970; 84550; 85025; 87077; 87086; 87186

== ENCOUNTER 2022-06-01 11:24 | Outpatient (CLI) | payer OTHER, SELFPAY ==
--- NOTE | 2022-06-01 | US_ITS ---
WS: [id number] ULTRASOUND RENAL TECHNIQUE: Ultrasound examination of both kidneys. CLINICAL INFORMATION: CHRONIC KIDNEY DZ/CKD STAGE COMPARISON: None. FINDINGS: RIGHT: Right kidney is normal in size and appearance. Echogenicity: Normal. Cortical thickness: 1.3 cm; Normal. Hydronephrosis: None. Perinephric fluid: None. Right kidney measures: 9.9 cm x 4.9 cm x 5.3 cm. LEFT: Left kidney is normal in size and appearance. Echogenicity: Normal. Cortical thickness: 1.3 cm; Normal. Hydronephrosis: None. Perinephric fluid: None. Left kidney measures: 12.0 cm x 3.8 cm x 4.6 cm. Normal visualized aorta. Normal bladder. US/US renal BI* [id number] IMPRESSION: 1. Normal kidneys bilaterally. No hydronephrosis. 2. Normal bladder.
--- NOTE | 2022-06-01 11:44 | US_ITS ---
WS: [id number] ULTRASOUND RENAL TECHNIQUE: Ultrasound examination of both kidneys. CLINICAL INFORMATION: CHRONIC KIDNEY DZ/CKD STAGE COMPARISON: None. FINDINGS: RIGHT: Right kidney is normal in size and appearance. Echogenicity: Normal. Cortical thickness: 1.3 cm; Normal. Hydronephrosis: None. Perinephric fluid: None. Right kidney measures: 9.9 cm x 4.9 cm x 5.3 cm. LEFT: Left kidney is normal in size and appearance. Echogenicity: Normal. Cortical thickness: 1.3 cm; Normal. Hydronephrosis: None. Perinephric fluid: None. Left kidney measures: 12.0 cm x 3.8 cm x 4.6 cm. Normal visualized aorta. Normal bladder.
[2022-06-01 12:23] LABS: Lipase 29 U/L (13-60)
== END 2022-06-01 11:25 | disposition home or self-care (01) ==
PROVIDERS: PCP Nurse Practitioner Family; Referring Provider Internal Medicine; Visit Provider Nurse Practitioner Gerontology
DX: R10.9 Unspecified abdominal pain (principal); N18.9 Chronic kidney disease, unspecified
CPT/HCPCS: 36415; 76770; 76857; 83690

== ENCOUNTER 2022-06-18 09:33 | Day surgery (SDC) | payer OTHER, SELFPAY ==
[2022-06-09 16:21] VITALS: BMI 33.6
[2022-06-18 10:04] VITALS: BP 100/79; PULSE 87; RESP 16; TEMP 36.1; O2SAT 97
--- NOTE | 2022-06-18 10:12 | P.ANESASSM_ITS ---
Pre-Anesthetic Assessment Height/Weight: Height 1.65 m Weight 91.626 kg Preop Diagnosis: epigastric pain, GERD Operation Date: 06/18/22 11:00 Proposed Procedures p EGD and colonoscopy [id number],K21.9,R10.13,K92.2(Not Applicable) - DO dennys Rothman Colonoscopy(Not Applicable) - Jalil Farr DO Familial anesthetic complications: none Was Beta Jumana taken within 24 hours: Yes Was Clonidine taken within 24 hours: N/A (didnt take this AM) Social No alcohol and No tobacco Exam alert and oriented x 3 Airway Submandibular: within normal limits Cervical ROM: within normal limits Mallampati: Class I Dentition: false History/ROS No significant history except as noted Pulmonary None reported CV/HEM Hypertension Chronic Renal Failure (stage 3- still urinates, never had dialysis) Hepatic None reported GI Gastroesophageal Reflux Disease Metabolic Diabetes Mellitus, Morbid Obesity and Thyroid Disease (thyroid removed) Musc/skel None reported Neuropsych None reported Anesthetic Plan ASA status: 3 Anesthesia: Anesthesia Evaluation and MAC Risk of > 500 ml blood loss (7ml/kg in children): No Medications/Allergies Home Medications Medication Instructions Recorded Confirmed Last Taken Type hydromorphone 4 mg tablet 4 mg PO QID PRN Pain 08/30/19 06/18/22 06/17/22 History carvedilol 25 mg tablet 25 mg PO BID 07/23/21 06/18/22 06/18/22 History lamotrigine 200 mg tablet 200 mg PO QAM #30 tabs 11/16/21 06/18/22 06/17/22 Rx (Lamictal) lurasidone 60 mg tablet (Latuda) 60 mg PO DAILY #30 tabs 11/16/21 06/18/22 06/17/22 Rx diltiazem HCl 240 mg 240 mg PO BID #180 caps 11/18/21 06/18/22 06/18/22 Rx capsule,extended release 24 hr levothyroxine 100 mcg tablet 100 mcg PO QAM 12/09/21 06/18/22 06/17/22 History ondansetron 8 mg disintegrating 8 mg PO Q8H PRN Nausea And Vomiting 12/09/21 06/18/22 06/17/22 History tablet semaglutide 0.25 mg or 0.5 mg (2 0.5 mg SUBCUT Q7D 12/09/21 06/18/22 06/13/22 History mg/1.5 mL) subcutaneous pen injector (Ozempic) tizanidine 4 mg tablet 4 mg PO QID@08,12,16,20 12/09/21 06/18/22 06/17/22 History clonidine HCl 0.3 mg tablet 0.3 mg PO TID@0800,1200,2000 #90 12/10/21 06/18/22 06/17/22 Rx tabs metformin 500 mg tablet 500 mg PO BID #180 tabs 12/10/21 06/18/22 06/17/22 Rx hydrocodone 5 mg-acetaminophen 325 1 - 2 tab PO .Q4-6H #40 tabs 01/01/22 06/18/22 06/17/22 Rx mg tablet pregabalin 25 mg capsule (Lyrica) 25 mg PO TID 1 month #90 caps 02/18/22 06/18/22 06/17/22 Rx lorazepam 2 mg tablet (Ativan) See Rx Instructions PO .COMPLEX 04/13/22 06/18/22 06/17/22 Rx #60 tabs pantoprazole 40 mg tablet,delayed 40 mg PO BID 6 weeks #84 tabs 04/20/22 06/18/22 06/17/22 Rx release (Protonix) furosemide 20 mg tablet 20 mg PO DAILY #90 tabs 04/26/22 06/18/22 06/17/22 Rx isosorbide mononitrate 30 mg 30 mg PO BID #180 tabs 04/26/22 06/18/22 06/17/22 Rx tablet,extended release 24 hr lithium carbonate 300 mg capsule See Rx Instructions PO .COMPLEX 05/19/22 06/18/22 06/17/22 Rx #90 caps insulin glargine 100 unit/mL (3 20 unit (0.2 mL) SUBCUT DAILY 30 05/28/22 06/18/22 06/17/22 Rx mL) subcutaneous pen (Lantus days #8 mL Solostar U-100 Insulin) pen needle, diabetic 32 gauge x #50 ea 05/28/22 05/28/22 Unknown Rx (1st Tier Unifine Pentips) terazosin 1 mg capsule 1 mg PO DAILY 06/09/22 06/18/2222 History Allergies Allergy/AdvReac Type Severity Reaction Status Date / Time aspirin Allergy due to BUN Verified 05/28/22 08:12 levels coconut Allergy hives Verified 05/28/22 08:12 ketorolac [From Toradol] Allergy hives Verified 05/28/22 08:12 meloxicam [From Mobic] Allergy hives Verified 05/28/22 08:12 NSAIDS (Non-Steroidal Allergy Unknown Verified 05/28/22 08:12 Anti-Inflamma [facility] Anesthesia Medical History SHELTON (acute kidney injury) Bipolar 1 disorder Bipolar 1 disorder, depressed, full remission Chest pain Chest pain at rest Chronic back pain Chronic neck and back pain Chronic renal disease CKD (chronic kidney disease) DM2 (diabetes mellitus, type 2) Generalized anxiety disorder GERD (gastroesophageal reflux disease) HLD (hyperlipidemia) Hypertensive emergency Hypertensive urgency, malignant Hypothyroid Hypothyroidism Hypothyroidism Malignant hypertension Nausea & vomiting Palpitation Post traumatic stress disorder (PTSD) Psychiatric care Pulmonary embolism Surgical History H/O angioplasty H/O esophagogastroduodenoscopy (08/12/20) H/O rectal polypectomy H/O total thyroidectomy History of appendectomy History of back surgery History of bilateral oophorectomy 2011 History of colonoscopy with polypectomy (08/12/20) History of spinal fusion 10/01/2013- C5-6, ACDFF Dr. Villanueva History of suburethral sling procedure anterior colporrhapy augmentd with porcine graft, cystoscopy performed on 03/08/[address] Haley History of total hysterectomy 2000 Hx of cholecystectomy Status post hemilaminotomy 01/06/2012, right L5-S1, disectomy and foraminotomy per Dr. Villanueva Family History Mother Diabetes Pancreatic cancer Ovarian cancer Father Diabetes Hypertension Stroke COPD (chronic obstructive pulmonary disease) Grandfather Hypertension maternal Heart disease maternal Grandmother Colon cancer maternal Social History Smoking and tobacco status: never smoked Second hand smoke exposure: Yes Smoking risk assessment/counseling performed?: Yes Alcohol intake: never Desire information about alcohol rehabilitation?: No Counseling given: No Desire information about substance/drug rehabilitation?: No Counseling given: Yes Caregiver/support person: No Lives independently: Yes Household members: spouse Housing: House Marital status: Number of children: 8 Highest education level completed: GED or Equivalent service: No Current occupational status: unemployed History of recent travel: No Additional social history: well balanced diet Data Anesthesia Cardiac Studies: Echocardiogram 12/11/21
[2022-06-18] MEDS: sodium chloride 0.9% 1,000 ML 30 ML IV (10:15)
[2022-06-18 10:18] LABS: Glucose Point of Care 146 mg/dL (70-110)
[2022-06-18] MEDS: ondansetron 2 mg/ML SDV 2 mL 4 MG IVP (10:19)
--- NOTE | 2022-06-18 11:06 | P.HP_ITS ---
Providers/Chief Complaint Primary Care Provider: Michelle Rico Chief Complaint: Abdominal pain History of Present Illness Nina Garcia is a 42 year old female here for EGD and colonoscopy Medications/Allergies Home Medications Medication Instructions Recorded Confirmed Last Taken Type hydromorphone 4 mg tablet 4 mg PO QID PRN Pain 08/30/19 06/18/22 06/17/22 History carvedilol 25 mg tablet 25 mg PO BID 07/23/21 06/18/22 06/18/22 History lamotrigine 200 mg tablet 200 mg PO QAM #30 tabs 11/16/21 06/18/22 06/17/22 Rx (Lamictal) lurasidone 60 mg tablet (Latuda) 60 mg PO DAILY #30 tabs 11/16/21 06/18/22 06/17/22 Rx diltiazem HCl 240 mg 240 mg PO BID #180 caps 11/18/21 06/18/22 06/18/22 Rx capsule,extended release 24 hr levothyroxine 100 mcg tablet 100 mcg PO QAM 12/09/21 06/18/22 06/17/22 History ondansetron 8 mg disintegrating 8 mg PO Q8H PRN Nausea And Vomiting 12/09/21 06/18/22 06/17/22 History tablet semaglutide 0.25 mg or 0.5 mg (2 0.5 mg SUBCUT Q7D 12/09/21 06/18/22 06/13/22 History mg/1.5 mL) subcutaneous pen injector (Ozempic) tizanidine 4 mg tablet 4 mg PO QID@08,12,16,20 12/09/21 06/18/22 06/17/22 History clonidine HCl 0.3 mg tablet 0.3 mg PO TID@0800,1200,2000 #90 12/10/21 06/18/22 06/17/22 Rx tabs metformin 500 mg tablet 500 mg PO BID #180 tabs 12/10/21 06/18/22 06/17/22 Rx hydrocodone 5 mg-acetaminophen 325 1 - 2 tab PO .Q4-6H #40 tabs 01/01/22 06/18/22 06/17/22 Rx mg tablet pregabalin 25 mg capsule (Lyrica) 25 mg PO TID 1 month #90 caps 02/18/2205/3006/17/22 Rx lorazepam 2 mg tablet (Ativan) See Rx Instructions PO .COMPLEX 04/13/22 06/18/22 06/17/22 Rx #60 tabs pantoprazole 40 mg tablet,delayed 40 mg PO BID 6 weeks #84 tabs 04/20/22 06/18/22 06/17/22 Rx release (Protonix) furosemide 20 mg tablet 20 mg PO DAILY #90 tabs 04/26/22 06/18/22 06/17/22 Rx isosorbide mononitrate 30 mg 30 mg PO BID #180 tabs 04/26/22 06/18/22 06/17/22 Rx tablet,extended release 24 hr lithium carbonate 300 mg capsule See Rx Instructions PO .COMPLEX 05/19/22 06/18/22 06/17/22 Rx #90 caps insulin glargine 100 unit/mL (3 20 unit (0.2 mL) SUBCUT DAILY 30 05/28/22 06/18/22 06/17/22 Rx mL) subcutaneous pen (Lantus days #8 mL Solostar U-100 Insulin) pen needle, diabetic 32 gauge x #50 ea 05/28/22 05/28/22 Unknown Rx (1st Tier Unifine Pentips) terazosin 1 mg capsule 1 mg PO DAILY 06/09/22 06/18/22 06/17/22 History Allergies Allergy/AdvReac Type Severity Reaction Status Date / Time aspirin Allergy due to BUN Verified 05/28/22 08:12 levels coconut Allergy hives Verified 05/28/22 08:12 ketorolac [From Toradol] Allergy hives Verified 05/28/22 08:12 meloxicam [From Mobic] Allergy hives Verified 05/28/22 08:12 NSAIDS (Non-Steroidal Allergy Unknown Verified 05/28/22 08:12 Anti-Inflamma PFSH Acute PFSH: Medical History [place] (acute kidney injury) Bipolar 1 disorder Bipolar 1 disorder, depressed, full remission Chest pain Chest pain at rest Chronic back pain Chronic neck and back pain Chronic renal disease CKD (chronic kidney disease) DM2 (diabetes mellitus, type 2) Generalized anxiety disorder GERD (gastroesophageal reflux disease) HLD (hyperlipidemia) Hypertensive emergency Hypertensive urgency, malignant Hypothyroid Hypothyroidism Hypothyroidism Malignant hypertension Nausea & vomiting Palpitation Post traumatic stress disorder (PTSD) Psychiatric care Pulmonary embolism Surgical History H/O angioplasty H/O esophagogastroduodenoscopy (08/12/20) H/O rectal polypectomy H/O total thyroidectomy History of appendectomy History of back surgery History of bilateral oophorectomy 2011 History of colonoscopy with polypectomy (08/12/20) History of spinal fusion 10/01/2013- C5-6, ACDFF Dr. Villanueva History of suburethral sling procedure anterior colporrhapy augmentd with porcine graft, cystoscopy performed on 03/08/[address] Haley History of total hysterectomy 2000 Hx of cholecystectomy Status post hemilaminotomy 01/06/2012, right L5-S1, disectomy and foraminotomy per Dr. Villanueva Family History Mother Diabetes Pancreatic cancer Ovarian cancer Father Diabetes Hypertension Stroke COPD (chronic obstructive pulmonary disease) Grandfather Hypertension maternal Heart disease maternal Grandmother Colon cancer maternal Social History Smoking and tobacco status: never smoked Second hand smoke exposure: Yes Smoking risk assessment/counseling performed?: Yes Alcohol intake: never Desire information about alcohol rehabilitation?: No Counseling given: No Desire information about substance/drug rehabilitation?: No Counseling given: Yes Caregiver/support person: No Lives independently: Yes Household members: spouse Housing: House Marital status: Number of children: 8 Highest education level completed: GED or Equivalent service: No Current occupational status: unemployed History of recent travel: No Additional social history: well balanced diet Vitals/I&O/Wt Last Vital Signs Temp 97 F L 06/18/22 10:04 Pulse 87 06/18/22 10:04 Resp 16 06/18/22 10:04 BP 100/79 06/18/22 10:04 Pulse Ox 97 06/18/22 10:04 O2 Del Method 06/18/22 10:04 A&P Assessment and plan (1) Abdominal pain: (2) GERD (gastroesophageal reflux disease): (3) GI bleed: Plan EGD and colonoscopy Attestations Medical Necessity Statement*: Home Coding Level of Care Code Acute Supervisor Roving Department for Chg Fwd Diagnoses Abdominal pain R10.9 GERD (gastroesophageal reflux disease) K21.9 GI bleed K92.2
[2022-06-18 11:32] VITALS: BP 86/55; PULSE 74; RESP 20; TEMP 36.4; O2SAT 96
[2022-06-18 11:40] VITALS: BP 88/59; PULSE 73; RESP 18; O2SAT 99
[2022-06-18 11:46] VITALS: BP 101/74; PULSE 74; RESP 18; O2SAT 97
[2022-06-18 11:55] VITALS: BP 105/72; PULSE 79; RESP 16; O2SAT 96
--- NOTE | 2022-06-18 14:03 | ANE.PACU2 ---
Inpatient post-anesthesia follow up: Airway intact: Yes Vital signs: Temperature 97.6 F Pulse Rate 79 Respiratory Rate 16 Blood Pressure 105/72 Pulse Oximetry 96 Oxygen Delivery Me thod Room Air Oxygen Flow Rate Fraction of Inspir ed Oxygen Hydration adequate: Yes Nausea and vomiting: No Pain level: 1 Mental status: Baseline
== END 2022-06-18 12:04 | disposition home or self-care (01) ==
PROVIDERS: PCP Nurse Practitioner Family; Visit Provider Surgery
PROC: 0DJ08ZZ Inspection of Upper Intestinal Tract, Via Natural or Artificial Opening Endoscopic (ICD-10-PCS; CPT 43235; principal; 2022-06-18 11:00)
PROC: 0DJD8ZZ Inspection of Lower Intestinal Tract, Via Natural or Artificial Opening Endoscopic (ICD-10-PCS; CPT 45378; 2022-06-18 11:00)
DX: R10.13 Epigastric pain (principal); K21.9 Gastro-esophageal reflux disease without esophagitis; K29.70 Gastritis, unspecified, without bleeding; E11.22 Type 2 diabetes mellitus with diabetic chronic kidney disease; N18.30 Chronic kidney disease, stage 3 unspecified; I12.9 Hypertensive chronic kidney disease with stage 1 through stage 4 chronic kidney disease, or unspecified chronic kidney disease; E66.01 Morbid (severe) obesity due to excess calories; Z68.33 Body mass index [BMI] 33.0-33.9, adult; Z79.84 Long term (current) use of oral hypoglycemic drugs; Z79.4 Long term (current) use of insulin; E03.9 Hypothyroidism, unspecified; Z86.711 Personal history of pulmonary embolism
CPT/HCPCS: 36416; 43239; 45378; 82274; 82962; 83630; 87493; 87506; 88305; J2405; J2704; J7030

== ENCOUNTER 2022-07-19 08:53 | Emergency (ER) | payer OTHER, SELFPAY ==
[2022-07-19 08:58] VITALS: BP 182/128; PULSE 97; TEMP 36.8; O2SAT 100; BMI 33.9
--- NOTE | 2022-07-19 09:17 | PC.NURSE ---
pt reports vomiting since yesterday, PRATHER began after vomiting. reports unable to keep meds down including BP medications. denies complaints, denies fevers or diarrhea. respirations even and unlabored. lung sounds clear bilat. bowel sounds present.
--- NOTE | 2022-07-19 09:18 | XR_ITS ---
WS: [id number] PORTABLE CHEST HISTORY: dyspnea/cough COMPARISON: 12/22/2021 Lung volumes are decreased due to poor inspiration. No pneumonia. No pleural effusion or pneumothorax . Cardiac size: Normal. Mediastinum/Aorta: Normal mediastinum. No osseous abnormality seen. XR/XR chest 1V portable [id number] IMPRESSION: Poor inspiration. Otherwise negative.
--- NOTE | 2022-07-19 09:19 | ECG_ITS ---
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 Measurements Intervals [place] Rate: 74 P: 0 [place]: 0 QRS: 94 QRSD: 84 T: 16 QT: 393 QTc: 439 Interpretive Statements ATRIAL FIBRILLATION BORDERLINE RIGHT AXIS DEVIATION [QRS AXIS > 90] Compared to ECG 12/22/2021 03:48:40 Sinus tachycardia no longer present ST (T wave) deviation no longer present Electronically Signed On 07-19-2022 17:08:04 NURSE PRIVATE DUTY by Rodolfo Chen M.D. [email or web address]
[2022-07-19] MEDS: sodium chloride 0.9% 1,000 ML 999 ML IV (09:28)
[2022-07-19] MEDS: ondansetron 2 mg/ML SDV 2 mL 4 MG IVP (09:30)
[2022-07-19 09:31] VITALS: BP 191/120; PULSE 77; O2SAT 99
[2022-07-19 09:31] LABS: Basophils # 0.1 10^3/uL (0.0-0.1); Basophils % 0.6 %; Eosinophils % 0.3 %; Hematocrit 45.7 % (37.0-47.0); Hemoglobin 14.5 g/dL (11.5-15.3); Lymphocytes # 1.8 10^3/uL (0.8-4.8); Lymphocytes % 15.2 %; Mean Corpuscular HGB Conc 31.7 g/dL (30.0-36.0); Mean Corpuscular Hemoglobin 28.4 pg (28.0-34.0); Mean Corpuscular Volume 89.6 fl (81-99); Mean Platelet Volume 11.5 fL (7.4-10.4); Monocytes # 0.4 10^3/uL (0.2-0.9); Monocytes % 3.2 %; Neutrophils # 9.32 10^3/uL (1.8-7.7); Neutrophils % 80.3 %; Nucleated Red Blood Cells % 0 %; Platelet Count 276 10^3/cmm (130-400); Red Cell Distribution Width 14.2 % (12.1-15.1); White Blood Count 11.6 10^3/uL (4.0-10.0)
[2022-07-19 09:41] LABS: Alanine Aminotransferase 20 U/L (0-33); Albumin Level 4.9 g/dL (3.5-5.2); Alkaline Phosphatase 71 U/L (35-105); Anion Gap 19.6 (5-19); Aspartate Amino Transferase 16 U/L (0-32); Blood Urea Nitrogen 8 mg/dL (6-20); Calcium 9.8 mg/dL (8.5-10.5); Carbon Dioxide 25 mmol/L (22-29); Chloride 97 mmol/L (98-107); Globulin 4.5 g/dL (1.3-4.6); Glomerular Filtration Rate 48.8 mL/min (90-130); Glucose 157 mg/dL (65-115); Lipase 20 U/L (13-60); Magnesium 2.1 mg/dL (1.7-2.3); Osmolality Calculated 288 mOsm/kg (285-295); Potassium 3.6 mmol/L (3.5-5.1); Sodium 138 mmol/L (136-145); Total Bilirubin 0.6 mg/dL (0.15-1.2); Total Protein 9.4 g/dL (6.6-8.7)
[2022-07-19 09:42] LABS: Troponin(5th) Baseline 6 ng/L (0-10)
--- NOTE | 2022-07-19 10:01 | ED_ITS ---
HPI - Nausea/Vomiting/Diarrhea General: Chief complaint: Nausea/Vomiting/Diarrhea Stated complaint: BP issues, n/v Time Seen by Provider: 07/19/22 08:59 Source: patient Mode of arrival: ambulatory History of Present Illness: 42-year-old female presents emergency room with persistent nausea and vomiting. She has had this in the past her blood pressure gets out of control. She has been not had any recent medication change she is taking all of her medications as prescribed her blood pressure is markedly elevated resulting in nausea and vomiting. She denies any recent upper respiratory illnesses or GI symptoms beyond the nausea vomiting no diarrhea. She has not had any cough or shortness of breath no chest pain. MD elicited complaint: nausea and vomiting Onset (ago): hour(s) Description of vomiting: watery and bilious Associated nausea: Yes Associated abdominal pain: Yes Location of pain: Diffuse Severity: moderate Quality: cramping Exacerbating factors: none Relieving factors: none Associated symtoms: Reports chest pain and nausea; Denies cough, diaphoresis, decreased urine output, dizziness, dysuria, epi staxis, fatigue, fecal incontinence, fevers/chills, headache(s), anorexia, malaise, myalgias, numbness, palpitations, rash, short of breath, syncope, tenesmus, tinnitus or weakness Review of Systems Const: Denies: fever(s), chills, fatigue, malaise or diaphoresis ENMT: Denies: tinnitus or epistaxis Card: Reports: chest pain; Denies: palpitations or syncope Resp: Denies: dyspnea, productive cough or non-productive cough GI: Reports: abdominal pain and nausea; Denies: fecal incontinence : Denies: flank pain, difficulty voiding or dysuria Skin/Breast: Denies: rash or pruritus Neuro: Denies: headache(s), numbness in extremities or dizziness PFS ED PFSH: Medical History [place] (acute kidney injury) Bipolar 1 disorder Bipolar 1 disorder, depressed, full remission Chest pain Chest pain at rest Chronic back pain Chronic neck and back pain Chronic renal disease CKD (chronic kidney disease) DM2 (diabetes mellitus, type 2) Generalized anxiety disorder GERD (gastroesophageal reflux disease) HLD (hyperlipidemia) Hypertensive emergency Hypertensive urgency, malignant Hypothyroid Hypothyroidism Hypothyroidism Malignant hypertension Nausea & vomiting Palpitation Post traumatic stress disorder (PTSD) Psychiatric care Pulmonary embolism Surgical History H/O angioplasty H/O esophagogastroduodenoscopy (08/12/20) H/O rectal polypectomy H/O total thyroidectomy History of appendectomy History of back surgery History of bilateral oophorectomy 2011 History of colonoscopy with polypectomy (08/12/20) History of spinal fusion 10/01/2013- C5-6, ACDFF Dr. Villanueva History of suburethral sling procedure anterior colporrhapy augmentd with porcine graft, cystoscopy performed on 03/08/[address] aHley History of total hysterectomy 2000 Hx of cholecystectomy Status post hemilaminotomy 01/06/2012, right L5-S1, disectomy and foraminotomy per Dr. Villanueva Family History Mother Diabetes Pancreatic cancer Ovarian cancer Father Diabetes Hypertension Stroke COPD (chronic obstructive pulmonary disease) Grandfather Hypertension maternal Heart disease maternal Grandmother Colon cancer maternal Social History Smoking and tobacco status: never smoked Second hand smoke exposure: Yes Smoking risk assessment/counseling performed?: Yes Alcohol intake: never Desire information about alcohol rehabilitation?: No Counseling given: No Desire information about substance/drug rehabilitation?: No Counseling given: Yes Caregiver/support person: No Lives independently: Yes Household members: spouse Housing: House Marital status: Number of children: 8 Highest education level completed: GED or Equivalent service: No Current occupational status: unemployed History of recent travel: No Additional social history: well balanced diet Physical Exam Const: COMMON NORMALS: no acute distress GENERAL APPEARANCE: cooperative and comfortable ORIENTATION/CONSCIOUSNESS: Yes awake, Yes oriented to person, Yes oriented to place and Yes oriented to time HENMT: COMMON NORMALS: normocephalic, atraumatic, hearing grossly normal bilaterally, external ears normal, EAC's normal, TM's normal bilaterally, Normal nasal mucous membranes and turbinates present, moist oral mucous membranes and oropharynx normal HEAD & SCALP: normocephalic and atraumatic NOSE: Normal nasal mucous membranes and turbinates present EXTERNAL EAR: Yes external ears normal EXTERNAL AUDITORY CANAL: EAC's normal TYMPANIC MEMBRANE: TM's normal bilaterally Eye: COMMON NORMALS: Equal, round and reactive pupils present, EOMs intact bilaterally, conjunctivae normal and no scleral icterus CONJUNCTIVA: Yes conjunctivae normal PUPIL: Yes Equal, round and reactive pupils present Resp: COMMON NORMALS: normal respiratory effort, No retractions, No use of accessory muscles and clear to auscultation bilaterally AUSCULTATION: clear to auscultation bilaterally Cardio: COMMON NORMALS: regular rate, regular rhythm and No murmurs present (Cardio) RATE: regular rate RHYTHM: regular rhythm GI: COMMON NORMALS: Soft to palpation and No hepatosplenomegaly present AUSCULTATION: Yes normoactive bowel sounds PALPATION: Yes Soft to palpation, No Tenderness to palpation present (GI), No Guarding due to palpation present (GI) and Yes No hepatosplenomegaly present Extremity: COMMON NORMALS: normal to inspection, capillary refill normal, no clubbing, cyanosis or edema, no calf tenderness and no pedal edema Neuro: SENSORIUM/ORIENTATION: Yes oriented to person, Yes oriented to place and Yes oriented to time OTHER: Renal nerves II 12 grossly intact no focal neurologic deficits are noted Skin: COMMON NORMALS: no rashes or lesions noted GENERAL SKIN EXAM: no rashes or lesions noted Course Vital Signs: Vital signs: Vital Signs Temperature 98.3 F 07/19/22 08:58 Pulse Rate 97 07/19/22 11:31 Respiratory Rate 18 07/19/22 11:31 Blood Pressure 151/95 07/19/22 11:31 Pulse Oximetry 100 07/19/22 11:31 Oxygen Delivery Me thod 07/19/22 11:31 MDM - Nausea/Vomiting/Diarrhea Medical Decision Making Labs imaging and EKG reviewed as found in the chart. No significant abnormalities blood pressure is improved and symptoms resolved with the interventions taken. Patient is feeling better she will need to take all of her regular medicines when she gets home we will add amlodipine 5 mg daily and have her follow-up with her primary care doctor within the week to reevaluate blood pressure she still has ondansetron at home if needs to with the resolution of the headache the nausea has improved. Medical Records I reviewed the patient's medical records. Lab Data I reviewed the patient's lab results. 07/19/22 09:14 07/19/22 09:14 Radiology Impressions Chest X-Ray 07/19/22 09:18 IMPRESSION: Poor inspiration. Otherwise negative. Laboratory Results WBC 11.6 10^3/uL (4.0-10.0) H 07/19/22 09:14 RBC 5.10 10^6/uL (4.1-5.3) 07/19/22 09:14 Hgb 14.5 g/dL (11.5-15.3) 07/19/22 09:14 Hct 45.7 % (37.0-47.0) 07/19/22 09:14 MCV 89.6 fl (81-99) 07/19/22 09:14 MCH 28.4 pg (28.0-34.0) 07/19/22 09:14 MCHC 31.7 g/dL (30.0-36.0) 07/19/22 09:14 RDW 14.2 % (12.1-15.1) 07/19/22 09:14 Plt Count 276 10^3/cmm (130-400) 07/19/22 09:14 MPV 11.5 fL (7.4-10.4) H 07/19/22 09:14 Neut % (Auto) 80.3 % 07/19/22 09:14 Lymph % (Auto) 15.2 % 07/19/22 09:14 [place] % (Auto) 3.2 % 07/19/22 09:14 Eos % (Auto) 0.3 % 07/19/22 09:14 Baso % (Auto) 0.6 % 07/19/22 09:14 Neut # (Auto) 9.32 10^3/uL (1.8-7.7) H 07/19/22 09:14 Lymph # (Auto) 1.8 10^3/uL (0.8-4.8) 07/19/22 09:14 [place] # (Auto) 0.4 10^3/uL (0.2-0.9) 07/19/22 09:14 Eos # (Auto) 0.0 10^3/uL (0.0-0.8) 07/19/22 09:14 Baso # (Auto) 0.1 10^3/uL (0.0-0.1) 07/19/22 09:14 Nucleated RBC % (auto) 0 % 07/19/22 09:14 Nucleated RBCs # 0.0 /100WBC 07/19/22 09:14 Sodium 138 mmol/L (136-145) 07/19/22 09:14 Potassium 3.6 mmol/L (3.5-5.1) 07/19/22 09:14 Chloride 97 mmol/L (98-107) L 07/19/22 09:14 Carbon Dioxide 25 mmol/L (22-29) 07/19/22 09:14 Anion Gap 19.6 (5-19) H 07/19/22 09:14 BUN 8 mg/dL (6-20) 07/19/22 09:14 Creatinine 1.2 mg/dL (0.5-0.9) H 07/19/22 09:14 GFR Calculation 48.8 mL/min (90-130) L 07/19/22 09:14 Glucose 157 mg/dL (65-115) H 07/19/22 09:14 Calculated Osmolality 288 mOsm/kg (285-295) 07/19/22 09:14 Calcium 9.8 mg/dL (8.5-10.5) 07/19/22 09:14 Magnesium 2.1 mg/dL (1.7-2.3) 07/19/22 09:14 Total Bilirubin 0.6 mg/dL (0.15-1.2) 07/19/22 09:14 AST 16 U/L (0-32) 07/19/22 09:14 ALT 20 U/L (0-33) 07/19/22 09:14 Alkaline Phosphatase 71 U/L (35-105) 07/19/22 09:14 Troponin T Baseline 6 ng/L (0-10) 07/19/22 09:14 Troponin T 120 Minute 6.00 ng/L (0-10) 07/19/22 11:25 Delta Troponin T 0 ABS# (0-10) 07/19/22 11:25 Total Protein 9.4 g/dL (6.6-8.7) H 07/19/22 09:14 Albumin 4.9 g/dL (3.5-5.2) 07/19/22 09:14 Globulin 4.5 g/dL (1.3-4.6) 07/19/22 09:14 Lipase 20 U/L (13-60) 07/19/22 09:14 Discharge Plan Discharge Patient Disposition: Home Clinical Impression: HTN (hypertension) Condition: Stable Prescriptions: New amlodipine 5 mg tablet 5 mg PO DAILY Qty: 30 0RF No Action Latuda 60 mg tablet 60 mg PO DAILY Qty: 30 11RF Rx Instructions: must administer with food (at least 350 calories) lamotrigine [Lamictal] 200 mg tablet 200 mg PO QAM Qty: 30 11RF hydromorphone 4 mg tablet 4 mg PO QID PRN (Reason: Pain) diltiazem HCl 240 mg capsule,extended release 24hr 240 mg PO BID Qty: 180 3RF pregabalin [Lyrica] 25 mg capsule 25 mg PO TID 30 Days Qty: 90 0RF lorazepam [Ativan] 2 mg tablet See Rx Instructions PO .COMPLEX Qty: 60 5RF Rx Instructions: 1/2 (1mg) tablet in am 1/2 (1mg) tablet at noon and 1 (2mg) tablet at bedtime pantoprazole [Protonix] 40 mg tablet,delayed release (DR/EC) 40 mg PO BID 42 Days Qty: 84 0RF insulin glargine [Lantus Solostar U-100 Insulin] 100 unit/mL (3 mL) insulin pen 20 unit SUBCUT DAILY 30 Days Qty: 8 0RF (DME) pen needle, diabetic [1st Tier Unifine Pentips] 32 gauge x 5/32 needle See Rx Instructions .Route Qty: 50 0RF Rx Instructions: As directed clonidine HCl 0.3 mg tablet 0.3 mg PO TID@0800,1200,2000 Qty: 90 6RF metformin 500 mg tablet 500 mg PO BID Qty: 180 3RF Hold Instructions: Resume on 12/14/21. Rx Instructions: Take one tablet by mouth twice a day. furosemide 20 mg tablet 20 mg PO DAILY Qty: 90 3RF isosorbide mononitrate 30 mg tablet extended release 24 hr 30 mg PO BID Qty: 180 3RF Rx Instructions: Use evening dose of imdur if BP> 130/80 mm Hg lithium carbonate 300 mg capsule See Rx Instructions PO .COMPLEX Qty: 90 5RF Rx Instructions: Take one tablet by mouth in the morning and two tablets by mouth at night. carvedilol 25 mg tablet 25 mg PO BID tizanidine 4 mg tablet 4 mg PO QID@08,12,16,20 ondansetron 8 mg tablet,disintegrating 8 mg PO Q8H PRN (Reason: Nausea And Vomiting) levothyroxine 100 mcg tablet 100 mcg PO QAM Ozempic 0.25 mg or 0.5 mg(2 mg/1.5 mL) pen injector 0.5 mg SUBCUT Q7D Rx Instructions: on sat hydrocodone-acetaminophen 5-325 mg tablet 1 - 2 tab PO .Q4-6H Qty: 40 0RF terazosin 1 mg capsule 1 mg PO DAILY Protonix 40 mg tablet,delayed release (DR/EC) 40 mg PO BID 42 Days Qty: 84 0RF Discharge Orders: Discharge ED (Routine); Ordered 07/19/22 Ordered By: Giorgio Newman Referrals: Michelle Rico, [employer] FURNACE SUPERVISOR [Primary Care Provider] - Discharge Diet: Usual diet Discharge Activity: Increase activity as tolerated Patient Instructions: Opioid Safety, Pain Management Activity Restrictions/Additional Instructions: You were seen for elevated blood pressure. It improved with medicines given. Contimue all of your previously prescribed medicines and add the amlodipine. Coding Level of Care Code ED Air Conditioning Engineer for Ingrid Fwd Exam Comprehensive
[2022-07-19] MEDS: hyDRALAzine 20 mg/mL INJ 1 mL IVP (10:06)
[2022-07-19] MEDS: promethazine 25 mg/mL SDV 1 mL IM (10:07)
[2022-07-19] MEDS: labetalol 5 mg/mL SDV 20mL 10 MG IVP (10:11)
--- NOTE | 2022-07-19 10:15 | PC.NURSE ---
NOTIFIED DR. SANDOVAL OF PT PAST REACTION OF INCREASED BP HE VERBALIZED UNDERSTANDING VO TO CONTINUE WITH ADM.
[2022-07-19 10:31] VITALS: BP 137/79; PULSE 92; RESP 19; O2SAT 99
[2022-07-19 11:00] VITALS: BP 133/85; PULSE 93; RESP 17; O2SAT 99
--- NOTE | 2022-07-19 11:19 | ECG_ITS ---
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 Measurements Intervals [place] Rate: 91 P: 58 MI: 155 QRS: 105 QRSD: 87 T: 26 QT: 364 QTc: 449 Interpretive Statements SINUS RHYTHM RIGHT AXIS DEVIATION [QRS AXIS > 100] Compared to ECG 07/19/2022 09:35:02 Atrial fibrillation no longer present Electronically Signed On 07-19-2022 18:28:[address] by Rodolfo Chen M.D. [email or web address] [id number]
[2022-07-19 11:31] VITALS: BP 151/95; PULSE 97; RESP 18; O2SAT 100
[2022-07-19 12:03] LABS: Troponin 5 2HR Delta 0 ABS# (0-10)
[2022-07-19 12:08] VITALS: BP 151/89; PULSE 101; RESP 18; O2SAT 98
== END 2022-07-19 12:14 | disposition home or self-care (01) ==
PROVIDERS: Emergency Provider Family Medicine; PCP Nurse Practitioner Family
DX: I12.9 Hypertensive chronic kidney disease with stage 1 through stage 4 chronic kidney disease, or unspecified chronic kidney disease (principal); E11.22 Type 2 diabetes mellitus with diabetic chronic kidney disease; N18.9 Chronic kidney disease, unspecified; Z79.84 Long term (current) use of oral hypoglycemic drugs; Z79.4 Long term (current) use of insulin; Z77.22 Contact with and (suspected) exposure to environmental tobacco smoke (acute) (chronic); E78.5 Hyperlipidemia, unspecified
CPT/HCPCS: 36415; 71045; 80053; 83690; 83735; 84484; 85025; 93005; 96361; 96372; 96374; 96375; 99285; J0360; J2405; J2550; J3490; J7030

== ENCOUNTER 2022-07-28 15:09 | Emergency (ER) | payer OTHER, SELFPAY ==
[2022-07-28 15:26] VITALS: PULSE 118; RESP 14; TEMP 36.6; O2SAT 100; BMI 35.2
--- NOTE | 2022-07-28 15:59 | CTR_ITS ---
PROCEDURE INFORMATION: Exam: CT Head Without Contrast Exam date and time: 07/28/2022 4:45 PM Age: 42 years old Clinical indication: Condition or disease; Headache; Other: Hbp; Additional info: Headache, high BP TECHNIQUE: Imaging protocol: Computed tomography of the head without contrast. Radiation optimization: All CT scans at this facility use at least one of these dose optimization techniques: automated exposure control; mA and/or kV adjustment per patient size (includes targeted exams where dose is matched to clinical indication); or iterative reconstruction. COMPARISON: CT head wo con* [id number] 12/22/2021 5:03 AM RADIATION DOSE METRICS: Total DLP (mGy-cm): 1115.18 FINDINGS: Brain: Normal. No hemorrhage. Unremarkable white matter. No mass effect. Ventricles: No hydrocephalus or evidence of increased intracranial pressure. Paranasal sinuses: Visualized sinuses are unremarkable. No fluid levels. Mastoid air cells: Visualized mastoid air cells are well aerated. Bones/joints: No acute abnormality. No acute fracture. Soft tissues: Unremarkable. CT/CT head wo con* [id number] IMPRESSION: No acute intracranial abnormality identified.
--- NOTE | 2022-07-28 16:01 | ECG_ITS ---
[facility] Test Date: 2022-07-28 Pat Name: Nina Garcia Department: Room: Gender: Female Terrapin Fisher: : 1980 Requested By: Max Dexter Order Number: [id number] Dustin MD: Rodolfo Chen M.D. Measurements Intervals [place] Rate: 109 P: 50 CA: 124 QRS: 106 QRSD: 89 T: 21 QT: 322 QTc: 435 Interpretive Statements SINUS TACHYCARDIA POSSIBLE LEFT ATRIAL ENLARGEMENT [-0.1mV P-WAVE IN V1/V2] RIGHT AXIS DEVIATION [QRS AXIS > 100] POSSIBLE ANTERIOR MYOCARDIAL INFARCTION , PROBABLY OLD [30 ms Q WAVE IN V3/V4, OR R < 0.2 mV IN V4] Compared to ECG 07/19/2022 11:29:57 Myocardial infarct finding now present Sinus rhythm no longer present Electronically Signed On 07-28-2022 17:55:30 CLINICAL SERVICES DIRECTOR by Rodolfo Chen M.D. [id number]
[2022-07-28 16:28] LABS: Basophils # 0.1 10^3/uL (0.0-0.1); Basophils % 0.6 %; Eosinophils # 0.6 10^3/uL (0.0-0.8); Eosinophils % 5.7 %; Hematocrit 48.5 % (37.0-47.0); Hemoglobin 15.1 g/dL (11.5-15.3); Lymphocytes # 2.5 10^3/uL (0.8-4.8); Lymphocytes % 24.9 %; Mean Corpuscular HGB Conc 31.1 g/dL (30.0-36.0); Mean Corpuscular Hemoglobin 28.2 pg (28.0-34.0); Mean Corpuscular Volume 90.7 fl (81-99); Mean Platelet Volume 11.6 fL (7.4-10.4); Monocytes # 0.5 10^3/uL (0.2-0.9); Neutrophils # 6.46 10^3/uL (1.8-7.7); Neutrophils % 63.3 %; Nucleated Red Blood Cells % 0 %; Platelet Count 296 10^3/cmm (130-400); Red Blood Count 5.35 10^6/uL (4.1-5.3); White Blood Count 10.2 10^3/uL (4.0-10.0)
[2022-07-28] MEDS: sodium chloride 0.9% 500 ML IV (16:29)
[2022-07-28] MEDS: ondansetron 2 mg/ML SDV 2 mL 4 MG IVP (16:32)
--- NOTE | 2022-07-28 16:47 | ED_ITS ---
HPI - General Adult General: Chief complaint: General Medical Stated complaint: Sent by [facility] for high BP, headache Time Seen by Provider: 07/28/22 15:34 History of Present Illness: Patient comes in with high blood pressure, headache, vomiting that started this morning. States that she is on multiple blood pressure medications and they have a hard time controlling her blood pressure. States that she is in and out of the hospital the time because her pressure is high. States this is what happens when her pressure starts to go up. Patient has been admitted for this in the past. Associated symptoms: Reports chest pain and headache(s); Deny dyspnea, nausea, rash, palpitations or vomiting Review of Systems Const: Denies: fever(s) or body aches Eyes: Denies: change in vision or blurry vision ENMT: Denies: throat pain or odynophagia Card: Reports: chest pain; Denies: palpitations Resp: Denies: dyspnea or productive cough GI: Denies: abdominal pain, nausea or vomiting : Denies: flank pain or dysuria Musc: Denies: neck pain or back pain Skin/Breast: Denies: rash or pruritus Neuro: Reports: headache(s); Denies: numbness in extremities Psych: Denies: anxiety or change in appetite Endo: Denies: polyuria or excessive sweating PFSH ED PFSH: Medical History SHELTON (acute kidney injury) Bipolar 1 disorder Bipolar 1 disorder, depressed, full remission Chest pain Chest pain at rest Chronic back pain Chronic neck and back pain Chronic renal disease CKD (chronic kidney disease) DM2 (diabetes mellitus, type 2) Generalized anxiety disorder GERD (gastroesophageal reflux disease) HLD (hyperlipidemia) Hypertensive emergency Hypertensive urgency, malignant Hypothyroid Hypothyroidism Hypothyroidism Malignant hypertension Nausea & vomiting Palpitation Post traumatic stress disorder (PTSD) Psychiatric care Pulmonary embolism Surgical History H/O angioplasty H/O esophagogastroduodenoscopy (08/12/20) H/O rectal polypectomy H/O total thyroidectomy History of appendectomy History of back surgery History of bilateral oophorectomy 2011 History of colonoscopy with polypectomy (08/12/20) History of spinal fusion 10/01/2013- C5-6, ACDFF Dr. Villanueva History of suburethral sling procedure anterior colporrhapy augmentd with porcine graft, cystoscopy performed on 03/08/[address] Haley History of total hysterectomy 2001 Hx of cholecystectomy Status post hemilaminotomy 01/06/2012, right L5-S1, disectomy and foraminotomy per Dr. Villanueva Family History Mother Diabetes Pancreatic cancer Ovarian cancer Father Diabetes Hypertension Stroke COPD (chronic obstructive pulmonary disease) Grandfather Hypertension maternal Heart disease maternal Grandmother Colon cancer maternal Social History Smoking and tobacco status: never smoked Second hand smoke exposure: Yes Smoking risk assessment/counseling performed?: Yes Alcohol intake: never Desire information about alcohol rehabilitation?: No Counseling given: No Desire information about substance/drug rehabilitation?: No Counseling given: Yes Caregiver/support person: No Lives independently: Yes Household members: spouse Housing: House Marital status: Number of children: 8 Highest education level completed: GED or Equivalent service: No Current occupational status: unemployed History of recent travel: No Additional social history: well balanced diet Physical Exam Const: COMMON NORMALS: no acute distress, patient oriented x3, healthy appearing and alert HENMT: COMMON NORMALS: normocephalic and atraumatic HEAD & SCALP: normocephalic and atraumatic Eye: COMMON NORMALS: Equal, round and reactive pupils present and EOMs intact bilaterally PUPIL: Yes Equal, round and reactive pupils present Neck/C-Spine: COMMON NORMALS: full ROM and supple Resp: COMMON NORMALS: normal respiratory effort, No retractions and No use of accessory muscles Cardio: COMMON NORMALS: regular rate and regular rhythm RATE: regular rate RHYTHM: regular rhythm GI: COMMON NORMALS: Normal to inspection, nondistended, normoactive bowel sounds present, Soft to palpation and non-tender PALPATION: Yes Soft to palpation Back/Pelvis: COMMON NORMALS: thoracic and lumbar spine normal to inspection and no thoracic nor lumbar tenderness Extremity: COMMON NORMALS: normal to inspection and full ROM Neuro: COMMON NORMALS: patient oriented x3 SENSORIUM/ORIENTATION: Yes alert Psych: COMMON NORMALS: mental status grossly normal and cooperative Skin: COMMON NORMALS: no rashes or lesions noted and no wounds GENERAL SKIN EXAM: no rashes or lesions noted Course Vital Signs: Vital signs: Vital Signs Temperature 97.8 F 07/28/22 15:26 Pulse Rate 126 H 07/28/22 18:49 Respiratory Rate 16 07/28/22 18:49 Blood Pressure 147/109 07/28/22 18:49 Pulse Oximetry 94 07/28/22 18:49 Oxygen Delivery Me thod 07/28/22 18:49 MDM - General Adult Medical Decision Making Patient comes in with high blood pressure, headache, vomiting that started this morning. States that she is on multiple blood pressure medications and they have a hard time controlling her blood pressure. States that she is in and out of the hospital the time because her pressure is high. States this is what happens when her pressure starts to go up. Patient has been admitted for this in the past. Physical exam is unremarkable. Her blood pressure is in the 200s over 1 teens. Will check labs, EKG, give IV medication for her blood pressure, and reassess. On reassessment the patient's blood pressure is better. I talked her about her nausea and vomiting she states that is improved as well. Patient states she would like to go home as she has a appoint with her motor vehicle lecturer tomorrow. Will discharge at this time. Lab Data 07/28/22 16:17 07/28/22 16:[address] 07/28/22 15:59 IMPRESSION: No acute intracranial abnormality identified. Laboratory Results WBC 10.2 10^3/uL (4.0-10.0) H 07/28/22 16:17 RBC 5.35 10^6/uL (4.1-5.3) H 07/28/22 16:17 Hgb 15.1 g/dL (11.5-15.3) 07/28/22 16:17 Hct 48.5 % (37.0-47.0) H 07/28/22 16:17 MCV 90.7 fl (81-99) 07/28/22 16:17 MCH 28.2 pg (28.0-34.0) 07/28/22 16:17 MCHC 31.1 g/dL (30.0-36.0) 07/28/22 16:17 RDW 15.0 % (12.1-15.1) 07/28/22 16:17 Plt Count 296 10^3/cmm (130-400) 07/28/22 16:17 MPV 11.6 fL (7.4-10.4) H 07/28/22 16:17 Neut % (Auto) 63.3 % 07/28/22 16:17 Lymph % (Auto) 24.9 % 07/28/22 16:17 Charlton % (Auto) 5.0 % 07/28/22 16:17 Eos % (Auto) 5.7 % 07/28/22 16:17 Baso % (Auto) 0.6 % 07/28/22 16:17 Neut # (Auto) 6.46 10^3/uL (1.8-7.7) 07/28/22 16:17 Lymph # (Auto) 2.5 10^3/uL (0.8-4.8) 07/28/22 16:17 Charlton # (Auto) 0.5 10^3/uL (0.2-0.9) 07/28/22 16:17 Eos # (Auto) 0.6 10^3/uL (0.0-0.8) 07/28/22 16:17 Baso # (Auto) 0.1 10^3/uL (0.0-0.1) 07/28/22 16:17 Nucleated RBC % (auto) 0 % 07/28/22 16:17 Nucleated RBCs # 0.0 /100WBC 07/28/22 16:17 Sodium 138 mmol/L (136-145) 07/28/22 16:17 Potassium 3.7 mmol/L (3.5-5.1) 07/28/22 16:17 Chloride 96 mmol/L (98-107) L 07/28/22 16:17 Carbon Dioxide 30 mmol/L (22-29) H 07/28/22 16:17 Anion Gap 15.7 (5-19) 07/28/22 16:17 BUN 11 mg/dL (6-20) 07/28/22 16:17 Creatinine 1.3 mg/dL (0.5-0.9) H 07/28/22 16:17 GFR Calculation 44.5 mL/min (90-130) L 07/28/22 16:17 Glucose 88 mg/dL (65-115) 07/28/22 16:17 Calculated Osmolality 285 mOsm/kg (285-295) 07/28/22 16:17 Calcium 10.5 mg/dL (8.5-10.5) 07/28/22 16:17 Magnesium 2.1 mg/dL (1.7-2.3) 07/28/22 16:17 Total Bilirubin 0.4 mg/dL (0.15-1.2) 07/28/22 16:17 AST 21 U/L (0-32) 07/28/22 16:17 ALT 20 U/L (0-33) 07/28/22 16:17 Alkaline Phosphatase 65 U/L (35-105) 07/28/22 16:17 Troponin T Baseline 6 ng/L (0-10) 07/28/22 16:17 Troponin T 120 Minute 6.00 ng/L (0-10) 07/28/22 18:32 Total Protein 9.7 g/dL (6.6-8.7) H 07/28/22 16:17 Albumin 5.1 g/dL (3.5-5.2) 07/28/22 16:17 Globulin 4.6 g/dL (1.3-4.6) 07/28/22 16:17 Discharge Plan Discharge Patient Disposition: Home Clinical Impression: Hypertension, Headache Condition: Stable Prescriptions: No Action Latuda 60 mg tablet 60 mg PO DAILY Qty: 30 11RF Rx Instructions: must administer with food (at least 350 calories) lamotrigine [Lamictal] 200 mg tablet 200 mg PO QAM Qty: 30 11RF hydromorphone 4 mg tablet 4 mg PO QID PRN (Reason: Pain) diltiazem HCl 240 mg capsule,extended release 24hr 240 mg PO BID Qty: 180 3RF lorazepam [Ativan] 2 mg tablet See Rx Instructions PO .COMPLEX Qty: 60 5RF Rx Instructions: 1/2 (1mg) tablet in am 1/2 (1mg) tablet at noon and 1 (2mg) tablet at bedtime (DME) pen needle, diabetic [1st Tier Unifine Pentips] 32 gauge x /32 needle See Rx Instructions .Route Qty: 50 0RF Rx Instructions: As directed clonidine HCl 0.3 mg tablet 0.3 mg PO TID@0800,1200,2000 Qty: 90 6RF furosemide 20 mg tablet 20 mg PO DAILY Qty: 90 3RF isosorbide mononitrate 30 mg tablet extended release 24 hr 30 mg PO BID Qty: 180 3RF Rx Instructions: Use evening dose of imdur if BP> 130/80 mm Hg lithium carbonate 300 mg capsule See Rx Instructions PO .COMPLEX Qty: 90 5RF Rx Instructions: Take one tablet by mouth in the morning and two tablets by mouth at night. carvedilol 25 mg tablet 25 mg PO BID tizanidine 4 mg tablet 4 mg PO QID@08,12,16,20 ondansetron 8 mg tablet,disintegrating 8 mg PO Q8H PRN (Reason: Nausea And Vomiting) levothyroxine 100 mcg tablet 100 mcg PO QAM Ozempic 0.25 mg or 0.5 mg(2 mg/1.5 mL) pen injector 0.5 mg SUBCUT Q7D Rx Instructions: on sat hydrocodone-acetaminophen 5-325 mg tablet 1 - 2 tab PO .Q4-6H Qty: 40 0RF terazosin 1 mg capsule 1 mg PO DAILY pantoprazole [Protonix] 40 mg tablet,delayed release (DR/EC) 40 mg PO BID 42 Days Qty: 84 0RF amlodipine 5 mg tablet 5 mg PO DAILY Qty: 30 0RF Discharge Orders: Discharge ED (Routine); Ordered 07/28/22 Ordered By: Max Dexter Referrals: Michelle Rico IT PROGRAMMER ANALYST [Primary Care Provider] - Coding Level of Care Code ED Criminal Records Technician for Chg Fwd Exam Comprehensive
[2022-07-28 16:48] LABS: Troponin(5th) Baseline 6 ng/L (0-10)
[2022-07-28 16:50] VITALS: BP 201/122; PULSE 100; RESP 16; O2SAT 97
[2022-07-28 16:50] LABS: Alanine Aminotransferase 20 U/L (0-33); Albumin Level 5.1 g/dL (3.5-5.2); Alkaline Phosphatase 65 U/L (35-105); Anion Gap 15.7 (5-19); Aspartate Amino Transferase 21 U/L (0-32); Blood Urea Nitrogen 11 mg/dL (6-20); Calcium 10.5 mg/dL (8.5-10.5); Carbon Dioxide 30 mmol/L (22-29); Chloride 96 mmol/L (98-107); Globulin 4.6 g/dL (1.3-4.6); Glomerular Filtration Rate 44.5 mL/min (90-130); Glucose 88 mg/dL (65-115); Magnesium 2.1 mg/dL (1.7-2.3); Osmolality Calculated 285 mOsm/kg (285-295); Potassium 3.7 mmol/L (3.5-5.1); Sodium 138 mmol/L (136-145); Total Bilirubin 0.4 mg/dL (0.15-1.2); Total Protein 9.7 g/dL (6.6-8.7)
[2022-07-28] MEDS: promethazine 25 mg/mL SDV 1 mL 12.5 MG IM (16:52)
[2022-07-28] MEDS: hyDRALAzine 20 mg/mL INJ 1 mL 10 MG IVP (16:52)
[2022-07-28 17:23] VITALS: BP 167/101; PULSE 116; RESP 16; O2SAT 99
--- NOTE | 2022-07-28 18:01 | ECG_ITS ---
[facility] Test Date: 2022-07-28 Pat Name: Nina Garcia Department: Room: Gender: Female Supervisor Reclamation: : 1980 Requested By: Max Dexter Order Number: [id number] Dustin MD: Isa Hernandez M.D. Measurements Intervals [place] Rate: 155 P: 54 NE: 107 QRS: 110 QRSD: 85 T: 32 QT: 310 QTc: 499 Interpretive Statements SINUS TACHYCARDIA WITH SHORT NE INTERVAL POSSIBLE RIGHT VENTRICULAR HYPERTROPHY POOR ANTERIOR R WAVE PROGRESSION Compared to ECG 07/28/2022 15:40:13 Right-axis deviation no longer present Myocardial infarct finding still present Electronically Signed On 07-29-2022 19:22:37 TREASURER by Isa Hernandez M.D. [id number]
[2022-07-28] MEDS: diphenhydrAMINE 50 mg/mL SDV 1mL 25 MG IVP (18:05)
[2022-07-28] MEDS: prochlorperazine 10 mg/2 mL Inj IVP (18:06)
[2022-07-28] MEDS: acetaminophen 1,000 MG/100 ML PIGGYBACK 400 MG IV (18:10)
[2022-07-28 18:49] VITALS: BP 147/109; PULSE 126; RESP 16; O2SAT 94
[2022-07-28 19:37] LABS: Troponin 5 2HR Delta 0 ABS# (0-10)
[2022-07-28 19:57] VITALS: BP 173/121; PULSE 128; RESP 16; O2SAT 99
== END 2022-07-28 19:58 | disposition home or self-care (01) ==
PROVIDERS: Emergency Provider Emergency Medicine; PCP Nurse Practitioner Family
DX: R51.9 Headache, unspecified (principal); I12.9 Hypertensive chronic kidney disease with stage 1 through stage 4 chronic kidney disease, or unspecified chronic kidney disease; E11.22 Type 2 diabetes mellitus with diabetic chronic kidney disease; N18.9 Chronic kidney disease, unspecified; E78.5 Hyperlipidemia, unspecified; Z77.22 Contact with and (suspected) exposure to environmental tobacco smoke (acute) (chronic)
CPT/HCPCS: 70450; 80053; 83735; 84484; 85025; 93005; 96365; 96372; 96375; 99285; J0131; J0360; J0780; J1200; J2405; J2550; J7040

== ENCOUNTER 2022-07-29 10:36 | Outpatient (CLI) | payer OTHER, SELFPAY ==
[2022-07-29 11:20] LABS: Basophils # 0.1 10^3/uL (0.0-0.1); Basophils % 0.9 %; Eosinophils # 0.5 10^3/uL (0.0-0.8); Eosinophils % 4.6 %; Hematocrit 46.6 % (37.0-47.0); Hemoglobin 14.1 g/dL (11.5-15.3); Lymphocytes % 30.2 %; Mean Corpuscular HGB Conc 30.3 g/dL (30.0-36.0); Mean Corpuscular Hemoglobin 28.4 pg (28.0-34.0); Mean Corpuscular Volume 93.8 fl (81-99); Mean Platelet Volume 11.7 fL (7.4-10.4); Monocytes # 0.6 10^3/uL (0.2-0.9); Neutrophils # 5.84 10^3/uL (1.8-7.7); Neutrophils % 57.9 %; Nucleated Red Blood Cells % 0 %; Platelet Count 356 10^3/cmm (130-400); Red Blood Count 4.97 10^6/uL (4.1-5.3); Red Cell Distribution Width 15.3 % (12.1-15.1); White Blood Count 10.1 10^3/uL (4.0-10.0)
[2022-07-29 11:53] LABS: Add Urine Microscopic? YES; Bilirubin Urine 1+ (Negative); Blood Urine 2+ (Negative); Glucose Urine UA Norm (Normal); Ketones Urine Negative (Negative); Leukocyte Esterase Urine 2+ (Negative); Nitrate Urine Negative (Negative); Protein Urine 1+ (Negative); Specific Gravity, Urine 1.025 (1.005-1.030); Urine Appearance Cloudy (CLEAR); Urine Color Yellow (Yellow); Urobilinogen Urine Neg (Negative); pH Urine 5 (5-7)
[2022-07-29 11:56] LABS: Parathyroid Hormone 81.7 pg/mL (15-65)
[2022-07-29 12:03] LABS: RBC Urine TOO NUMEROUS TO CNT /hpf (0-2); WBC Urine TOO NUMEROUS TO CNT /hpf (0-5)
[2022-07-29 12:04] LABS: Add Urine Culture? Yes
[2022-07-29 12:07] LABS: Hepatitis A Antibody IgM Non-Reactive (Nonreactive); Hepatitis B Core AB, Total Non-Reactive (Nonreactive); Hepatitis B Surface AB 3.5 (11.5-1000); Hepatitis B Surface Antigen Non-Reactive (Nonreactive); Hepatitis C Virus Antibody Non-Reactive (Nonreactive)
[2022-07-29 13:00] LABS: Anion Gap 17.5 (5-19); Blood Urea Nitrogen 14 mg/dL (6-20); Calcium 9.8 mg/dL (8.5-10.5); Carbon Dioxide 27 mmol/L (22-29); Chloride 98 mmol/L (98-107); Glomerular Filtration Rate 30.6 mL/min (90-130); Glucose 42 mg/dL (65-115); Magnesium 2.3 mg/dL (1.7-2.3); Osmolality Calculated 285 mOsm/kg (285-295); Phosphorus 3.7 mg/dL (2.5-4.5); Potassium 3.5 mmol/L (3.5-5.1); Sodium 139 mmol/L (136-145); Uric Acid 9.2 mg/dL (2.4-5.7)
== END 2022-07-29 10:37 | disposition home or self-care (01) ==
PROVIDERS: PCP Nurse Practitioner Family; Visit Provider Nurse Practitioner Gerontology
DX: N18.9 Chronic kidney disease, unspecified (principal)
CPT/HCPCS: 36415; 80048; 81001; 82310; 83735; 83970; 84100; 84550; 85025; 86705; 86706; 86709; 86803; 87077; 87086; 87186; 87340

== ENCOUNTER 2022-08-23 11:03 | Outpatient (CLI) | payer OTHER, SELFPAY ==
[2022-08-23 12:16] LABS: Chol HDL Ratio 2.27 mg/dL (0.0-4.40); Cholesterol 109 mg/dL (0-200); Free T4 Free Thyroxine 0.92 ng/dL (0.82-1.77); HDL Cholesterol 48 mg/dL (60-100); LDL Cholesterol Calculated 46 mg/dL (50-129); LDL HDL Ratio 0.96 RATIO (0.00-3.22); Thyroid Stimulating Hormone 82.59 uIU/mL (0.27-4.20); Triglycerides 75 mg/dL (0-150)
[2022-08-23 12:17] LABS: Estmated Average Glucose 117; Hemoglobin A1C 5.7 % (4.0-6.0)
== END 2022-08-23 11:04 | disposition home or self-care (01) ==
LOC: LAB 11:11
PROVIDERS: PCP Nurse Practitioner Family; Visit Provider Internal Medicine
DX: E03.9 Hypothyroidism, unspecified (principal); E11.9 Type 2 diabetes mellitus without complications; E78.5 Hyperlipidemia, unspecified
CPT/HCPCS: 80061; 83036; 84439; 84443

== ENCOUNTER 2022-09-15 15:33 | Outpatient (CLI) | payer OTHER, SELFPAY ==
[2022-09-15 17:45] LABS: Albumin Level 4.5 g/dL (3.5-5.2); Anion Gap 14.6 (5-19); Blood Urea Nitrogen 9 mg/dL (6-20); Calcium 9.5 mg/dL (8.5-10.5); Carbon Dioxide 26 mmol/L (22-29); Chloride 102 mmol/L (98-107); Glomerular Filtration Rate 48.8 mL/min (90-130); Glucose 100 mg/dL (65-115); Osmolality Calculated 287 mOsm/kg (285-295); Potassium 3.6 mmol/L (3.5-5.1); Sodium 139 mmol/L (136-145)
[2022-09-15 18:12] LABS: Creatinine Urine, Random 104 mg/dL (28-217); Microalbum Creatinine Ratio Ur 10 mg/dL (0-20); Microalbumin Random Urine 1 ug/dL (0-20); Total Protein, Random Urine 13.1 mg/dL (0.0-20.0)
[2022-09-16 08:50] LABS: Hemoglobin 13.3 g/dL (11.5-15.3)
== END 2022-09-15 15:34 | disposition home or self-care (01) ==
LOC: LAB 15:36
PROVIDERS: PCP Nurse Practitioner Family; Visit Provider Nurse Practitioner Gerontology
DX: I12.9 Hypertensive chronic kidney disease with stage 1 through stage 4 chronic kidney disease, or unspecified chronic kidney disease (principal); N18.9 Chronic kidney disease, unspecified
CPT/HCPCS: 36415; 80048; 82040; 82044; 83036; 84100; 84156; 85018; 87077; 87086; 87186

== ENCOUNTER 2022-10-07 12:13 | Outpatient (CLI) | payer OTHER, SELFPAY ==
[2022-10-12 18:46] LABS: Calculated Total (E+NE) 21 mcg/24 h (26-121)
[2022-10-13 12:54] LABS: Metanephrine Total Free 262 pg/mL (<=205)
[2022-10-18 17:10] LABS: Metanephrines Total Urine 2100 mL; Urine Metanephrines Total 427 mcg/24 h (182-739)
== END 2022-10-07 12:14 | disposition home or self-care (01) ==
PROVIDERS: PCP Nurse Practitioner Family; Visit Provider Nurse Practitioner Gerontology
DX: I12.9 Hypertensive chronic kidney disease with stage 1 through stage 4 chronic kidney disease, or unspecified chronic kidney disease (principal); N18.9 Chronic kidney disease, unspecified; E11.9 Type 2 diabetes mellitus without complications
CPT/HCPCS: 82384; 83835

== ENCOUNTER 2022-10-18 09:21 | Outpatient (CLI) | payer OTHER, SELFPAY ==
[2022-10-18 10:46] LABS: Creatinine Urine, Random 255 mg/dL (28-217); Microalbum Creatinine Ratio Ur 12 mg/dL (0-20); Microalbumin Random Urine 3 ug/dL (0-20)
[2022-10-18 10:56] LABS: Alanine Aminotransferase 11 U/L (0-33); Albumin Level 4.2 g/dL (3.5-5.2); Alkaline Phosphatase 50 U/L (35-105); Aspartate Amino Transferase 10 U/L (0-32); Blood Urea Nitrogen 8 mg/dL (6-20); Carbon Dioxide 24 mmol/L (22-29); Chloride 102 mmol/L (98-107); Chol HDL Ratio 2.21 mg/dL (0.0-4.40); Cholesterol 95 mg/dL (0-200); Free T4 Free Thyroxine 0.86 ng/dL (0.82-1.77); Globulin 3.5 g/dL (1.3-4.6); Glucose 72 mg/dL (65-115); HDL Cholesterol 43 mg/dL (60-100); LDL Cholesterol Calculated 36 mg/dL (50-129); LDL HDL Ratio 0.84 RATIO (0.00-3.22); Osmolality Calculated 281 mOsm/kg (285-295); Sodium 137 mmol/L (136-145); Thyroid Stimulating Hormone 46.23 uIU/mL (0.27-4.20); Total Bilirubin 0.2 mg/dL (0.15-1.2); Total Protein 7.7 g/dL (6.6-8.7); Triglycerides 78 mg/dL (0-150)
[2022-10-18 11:13] LABS: Estmated Average Glucose 134; Hemoglobin A1C 6.3 % (4.0-6.0)
== END 2022-10-18 09:22 | disposition home or self-care (01) ==
PROVIDERS: PCP Nurse Practitioner Family; Referring Provider Psychiatry & Neurology Psychiatry; Visit Provider Internal Medicine
DX: E03.9 Hypothyroidism, unspecified (principal); E11.9 Type 2 diabetes mellitus without complications; E78.5 Hyperlipidemia, unspecified
CPT/HCPCS: 36415; 80053; 80061; 82044; 83036; 84439; 84443

== ENCOUNTER 2022-10-18 09:35 | Outpatient (CLI) | payer OTHER, SELFPAY ==
--- NOTE | 2022-10-18 10:08 | XR_ITS ---
WS: [id number] Exam: XR cervical spine 3V* [id number] Date/Time of Exam: 10/18/2022 10:08 AM Reason For Exam: NECK PAIN Comparison 01/19/2021. Stable-appearing interbody anterior fusion at C5-6 remains in good alignment. A disc spacer is noted. The fusion is ossified. Degenerative narrowing of the C4-5 disc. Posterior elements are intact. Norm al paraspinal soft tissues. The odontoid is intact. XR/XR cervical spine 3V* [id number] IMPRESSION: 1. Degenerative changes. No fracture or malalignment. 2. Stable anterior fusion of C5 and 6 without complication or change.
[2022-10-18 10:50] LABS: Lithium 0.5 mmol/L (0.6-1.2)
== END 2022-10-18 09:36 | disposition home or self-care (01) ==
PROVIDERS: Psychiatry & Neurology Psychiatry; PCP Nurse Practitioner Family; Visit Provider Nurse Practitioner Family
DX: F31.9 Bipolar disorder, unspecified (principal); Z79.899 Other long term (current) drug therapy; Z98.1 Arthrodesis status; M48.02 Spinal stenosis, cervical region
CPT/HCPCS: 36415; 72040; 80178

== ENCOUNTER 2022-10-22 17:05 | Emergency (ER) | payer OTHER, SELFPAY ==
[2022-10-22 17:16] VITALS: BMI 33.1
[2022-10-22 17:19] VITALS: BP 111/81; PULSE 73; RESP 18; TEMP 36.4; O2SAT 98
--- NOTE | 2022-10-22 17:30 | ED_ITS ---
HPI - Ear Problem General: Chief complaint: Ear Stated complaint: Ear Pain Time Seen by Provider: 10/22/22 17:25 History of Present Illness: Patient is a 42-year-old female comes to the ED with ear pain. Symptoms started approximately 4 days ago. Pain starts in right ear and radiates down into her right jaw. Endorses having a clear discharge from right ear. She rates her pain currently an 8 out of 10. She is currently on hydrocodone and Dilaudid and has been taking that for pain. she saw urgent care provider and they diagnosed her with a ruptured eardrum and sent her with antibiotic eardrops and Augmentin. She has been taking her oral antibiotic and eardrops now for 3 days. She says the pain has gotten worse so she came here to the ED for evaluation. She does not have a referral to ENT Associated symptoms: Reports ear or mastoid pain (Right ear pain); Denies fever(s), headache(s) or neck pain Review of Systems Const: Denies: fever(s), chills or fatigue Eyes: Denies: change in vision or eye discomfort ENMT: Reports: ear or mastoid pain (Right ear pain); Denies: throat pain, odynophagia, nasal discharge or nasal congestion Card: Denies: chest pain, palpitations, edema, swelling of feet/ankles, dyspnea on exertion or orthopnea Resp: Denies: dyspnea, productive cough or non-productive cough GI: Denies: abdominal pain, nausea, vomiting, diarrhea, constipation or hematochezia : Denies: flank pain, dysuria or hematuria Musc: Denies: neck pain, back pain or extremity swelling Skin/Breast: Denies: rash or new lesions Neuro: Denies: headache(s), numbness in extremities or weakness in extremities PFS ED PFSH: Medical History SHELTON (acute kidney injury) Bipolar 1 disorder, depressed, full remission Chest pain Chest pain at rest Chronic back pain Chronic neck and back pain Chronic renal disease CKD (chronic kidney disease) DM2 (diabetes mellitus, type 2) Generalized anxiety disorder GERD (gastroesophageal reflux disease) HLD (hyperlipidemia) Hypertensive emergency Hypertensive urgency, malignant Hypothyroid Hypothyroidism Hypothyroidism Malignant hypertension Nausea & vomiting Palpitation Post traumatic stress disorder (PTSD) Psychiatric care Pulmonary embolism Surgical History H/O angioplasty H/O esophagogastroduodenoscopy (08/12/20) H/O rectal polypectomy H/O total thyroidectomy History of appendectomy History of back surgery History of bilateral oophorectomy 2011 History of colonoscopy with polypectomy (08/12/20) History of spinal fusion 10/01/2013- C5-6, ACDFF Dr. Villanueva History of suburethral sling procedure anterior colporrhapy augmentd with porcine graft, cystoscopy performed on 03/08/[address] Haley History of total hysterectomy 2000 Hx of cholecystectomy Status post hemilaminotomy 01/06/2012, right L5-S1, disectomy and foraminotomy per Dr. Villanueva Family History Mother Diabetes Pancreatic cancer Ovarian cancer Father Diabetes Hypertension Stroke COPD (chronic obstructive pulmonary disease) Grandfather Hypertension maternal Heart disease maternal Grandmother Colon cancer maternal Social History Smoking and tobacco status: never smoked Second hand smoke exposure: Yes Smoking risk assessment/counseling performed?: Yes Alcohol intake: never Desire information about alcohol rehabilitation?: No Counseling given: No Desire information about substance/drug rehabilitation?: No Counseling given: Yes Caregiver/support person: No Lives independently: Yes Household members: spouse Housing: House Marital status: Number of children: 8 Highest education level completed: GED or Equivalent service: No Current occupational status: unemployed Additional social history: well balanced diet Physical Exam 2 Const: COMMON NORMALS: no acute distress, patient oriented x3 and alert GENERAL APPEARANCE: cooperative and comfortable HENMT: COMMON NORMALS: normocephalic HEAD & SCALP: normocephalic TYMPANIC MEMBRANE: TM abnormal TM laterality: right Details: perforation Details: with clear discharge MOUTH: Normal oral and palatal mucosa present THROAT: posterior oropharynx normal and uvula midline Neck/C-Spine: COMMON NORMALS: supple GENERAL: Yes normal visual inspection Resp: COMMON NORMALS: normal respiratory effort, No retractions, No use of accessory muscles and clear to auscultation bilaterally AUSCULTATION: clear to auscultation bilaterally Cardio: COMMON NORMALS: regular rate, regular rhythm, S1 normal heart sound present, S2 normal heart sound present, No gallops present (Cardio), No clicks present (Cardio), No murmurs present (Cardio) and Peripheral pulses 2+ throughout RATE: regular rate RHYTHM: regular rhythm HEART SOUNDS: S1 normal heart sound present and S2 normal heart sound present PERIPHERAL PULSES: Peripheral pulses 2+ throughout GI: COMMON NORMALS: Normal to inspection, nondistended, normoactive bowel sounds present, Soft to palpation, non-tender and no masses PALPATION: Yes Soft to palpation : COMMON NORMALS: Yes no CVA tenderness BLADDER/KIDNEY EXAM: Yes no CVA tenderness Back/Pelvis: COMMON NORMALS: no CVA tenderness Extremity: COMMON NORMALS: normal to inspection Neuro: COMMON NORMALS: patient oriented x3 SENSORIUM/ORIENTATION: Yes alert GAIT: Yes Normal gait present Skin: GENERAL SKIN EXAM: dry skin Course Vital Signs: Vital signs: Vital Signs Temperature 97.6 F 10/22/22 17:19 Pulse Rate 93 10/22/22 18:22 Respiratory Rate 18 10/22/22 18:22 Blood Pressure 111/81 10/22/22 17:19 Pulse Oximetry 98 10/22/22 18:22 Oxygen Delivery Me thod 10/22/22 17:19 MDM - Ear Medical Decision Making Patient is a 42-year-old female comes to the ED with ear pain. Symptoms started approximately 4 days ago. Pain starts in right ear and radiates down into her right jaw. Endorses having a clear discharge from right ear. She rates her pain currently an 8 out of 10. She is currently on hydrocodone and Dilaudid and has been taking that for pain. she saw urgent care provider and they diagnosed her with a ruptured eardrum and sent her with antibiotic eardrops and Augmentin. She has been taking her oral antibiotic and eardrops now for 3 days. Vitals are stable. Exam shows ruptured right tympanic membrane. I placed an order with case management for patient to be referred to ENT for follow-up. She was given a dose of IM Rocephin here in the ED. She was stable for discharge home and told to continue taking her previously prescribed antibiotic and antibiotic eardrop. Return to ED precautions given. Patient understood and agreed with plan. Discharge Plan Discharge Patient Disposition: Home Clinical Impression: Otitis media Qualifiers: Chronicity: acute Laterality: right Recurrence: non-recurrent Spontaneous tympanic membrane rupture: with spontaneous rupture Condition: Stable Prescriptions: No Action hydromorphone 4 mg tablet 4 mg PO QID PRN (Reason: Pain) lithium carbonate 300 mg capsule See Rx Instructions PO .COMPLEX Qty: 90 11RF Rx Instructions: Take one tablet by mouth in the morning and two tablets by mouth at night. lorazepam [Ativan] 2 mg tablet See Rx Instructions PO .COMPLEX Qty: 60 5RF Rx Instructions: 1/2 (1mg) tablet in am 1/2 (1mg) tablet at noon and 1 (2mg) tablet at bedtime lamotrigine [Lamictal] 200 mg tablet 200 mg PO QAM Qty: 30 11RF lurasidone 80 mg tablet 80 mg PO DAILY Qty: 30 11RF Rx Instructions: must administer with food (at least 350 calories) (DME) pen needle, diabetic [1st Tier Unifine Pentips] 32 gauge x 5/32 needle See Rx Instructions .Route Qty: 50 0RF Rx Instructions: As directed carvedilol 25 mg tablet 75 mg PO DIRECTED Qty: 270 2RF Rx Instructions: 50mg (2 tabs) in AM and 25mg (1 tab) in PM nitroglycerin [Nitrostat] 0.4 mg tablet, sublingual 0.4 mg sublingual Q5M PRN (Reason: chest pain) Qty: 25 2RF Rx Instructions: do not exceed 3 doses per episode neomycin-polymyxin B-dexameth [Maxitrol] 3.5mg/mL-10,000 unit/mL-0.1 % drops,suspension 2 drp ophthalmic (eye) QID 7 Days Qty: 5 0RF Rx Instructions: Route-Ears to treat Otits Externa amoxicillin-pot clavulanate 875-125 mg tablet 1 tab PO BID 10 Days Qty: 20 0RF furosemide 20 mg tablet 20 mg PO DAILY Qty: 90 3RF isosorbide mononitrate 30 mg tablet extended release 24 hr 30 mg PO BID Qty: 180 3RF Rx Instructions: Use evening dose of imdur if BP> 130/80 mm Hg clonidine HCl 0.3 mg tablet 0.3 mg PO TID@0800,1200,2000 Qty: 90 6RF levothyroxine 112 mcg capsule 112 mcg PO DAILY Qty: 30 3RF diltiazem HCl 240 mg capsule,extended release 24hr 240 mg PO BID Qty: 180 1RF Ozempic 0.25 mg or 0.5 mg(2 mg/1.5 mL) pen injector 0.5 mg SUBCUT Q7D 90 Days Qty: 5.2 2RF Rx Instructions: on sat tizanidine 4 mg tablet 4 mg PO QID@08,12,16,20 ondansetron 8 mg tablet,disintegrating 8 mg PO Q8H PRN (Reason: Nausea And Vomiting) hydrocodone-acetaminophen 5-325 mg tablet 1 - 2 tab PO .Q4-6H Qty: 40 0RF terazosin 1 mg capsule 2 mg PO DAILY Discharge Orders: Discharge ED (Routine); Ordered 10/22/22 Ordered By: Dheeraj Lucas Referrals: Michelle Rico FNP [Primary Care Provider] - Discharge Diet: Regular Discharge Activity: Resume usual activity Patient Instructions: Ruptured Eardrum (ED), Ear Infection (ED) Activity Restrictions/Additional Instructions: Follow-up with medical provider as directed. Case management should be contacting you in the next several days to set up an appointment with director learning for further evaluation and management of right ear. Continue taking your previously prescribed Augmentin and antibiotic eardrops. Return to the ER or your medical provider if condition worsens. Please read and understand discharge instructions. Thank you for choosing [facility] for your healthcare needs today. Please realize this is an emergency room and that we are providing you with a medical screening exam and this may not be complete and all inclusive of all the testing and or work up that you may need to determine your ailment or severity of your illness. It is very important that you follow up as instructed or that you return to the Emergency Department should you have concerns or if your condition changes or worsens in any way. Coding Level of Care Code ED Flour Distributor for Ingrid Lindsay
[2022-10-22] MEDS: oxyCODONE-APAP 5-325 mg Tablet 1 TAB PO (17:57)
[2022-10-22] MEDS: cefTRIAXone 1,000 MG in water for injection-sterile 2.1 ML 2.1 MG IM (17:58)
[2022-10-22 18:22] VITALS: PULSE 93; RESP 18; O2SAT 98
--- NOTE | 2022-10-26 08:28 | DCPLANNER ---
Addendum entered by Yelena Wright 11/10/22 08:04: Patient had a follow up appointment scheduled with ENT - patient did attend appointment Addendum entered by Yelena Wright 10/26/22 14:11: Patient has a follow up appointment scheduled for Thursday, November 03, 2022 at 1:[address] Morfin at ENT. Clinic will call patient with appointment information. Original Note: executive sales manager had message to schedule a follow up appointment for patient with ENT. executive sales manager sent patients information to the front office staff at ENT. Patients information will be printed and reviewed. Clinic will call patient with appointment information.
== END 2022-10-22 18:23 | disposition home or self-care (01) ==
PROVIDERS: Emergency Provider Physician Assistant; PCP Nurse Practitioner Family
DX: H66.91 Otitis media, unspecified, right ear (principal); E11.22 Type 2 diabetes mellitus with diabetic chronic kidney disease; I12.9 Hypertensive chronic kidney disease with stage 1 through stage 4 chronic kidney disease, or unspecified chronic kidney disease; N18.9 Chronic kidney disease, unspecified; E78.5 Hyperlipidemia, unspecified
CPT/HCPCS: 96372; 99284; J0696

== ENCOUNTER 2022-10-25 09:48 | Outpatient (CLI) | payer OTHER, SELFPAY ==
--- NOTE | 2022-10-25 09:58 | MM_ITS ---
WS: [id number] Bilateral screening 3D tomosynthesis digital mammogram, 10/25/2022 Clinical Data: ANNUAL SCREENING Comparison: 09/11/2021, 04/23/2018. Findings: The breast parenchymal pattern shows fibroglandular tissue. No spiculated masses or clustered calcifi cations are seen. There are no secondary signs of carcinoma. MM/[place] [id number] Impression: 1. Negative bilateral mammogram unchanged. 2. Recommend annual screening mammograms. BIRADS: 1-Negative FOLLOW UP: 1 Year Follow-up The CAD dump grounds checker was used.
== END 2022-10-25 09:49 | disposition home or self-care (01) ==
LOC: RAD 09:50
PROVIDERS: PCP Nurse Practitioner Family; Visit Provider Nurse Practitioner Family
DX: Z12.31 Encounter for screening mammogram for malignant neoplasm of breast (principal)
CPT/HCPCS: 77063; 77067

== ENCOUNTER 2022-11-29 14:39 | Outpatient (CLI) | payer OTHER, SELFPAY ==
--- NOTE | 2022-11-29 | CT_ITS ---
WS: [id number] CT CERVICAL SPINE TECHNIQUE: Noncontrast CT of the cervical spine with coronal and sagittal reformatted images. CLINICAL INFORMATION: M54.2 COMPARISON: MRI March 23, 2022 DLP: 219.[address] scans at [facility] use at least one of these dose optimization techniques: automated e xposure control; mA and/or kV adjustment per patient size (includes targeted exams where dose is matc hed to clinical indication); or iterative reconstruction. FINDINGS: Straightening of the normal cervical lordosis. Postoperative changes anterior cervical fusion with in terbody fusion C5-C6 appears stable compared to the prior MRI. Hardware appears intact. No evidence o f hardware loosening. Straightening of the normal cervical lordosis. Interbody bony fusion appears so lid. Evidence of bony bridging beyond the confines of the graft. Normal dens. Normal C1-C2 articulati on. No high-grade central canal stenosis. C2-C3: Normal. C3-C4: Mild osteophytic ridging. Mild RIGHT foraminal narrowing. Spinal canal and foramen are patent. C4-C5: Disc osteophyte complex with endplate ridging. Mild to moderate LEFT and mild RIGHT bony janie inal narrowing. Mild facet arthropathy. C5-C6: ACDF. Spinal canal and foramen are patent. C6-C7: Disc osteophyte complex with endplate ridging. Slight effacement of ventral thecal sac. Mild c entral canal stenosis. Mild to moderate LEFT and mild RIGHT bony foraminal narrowing. C7-T1: No significant disc bulging. Spinal canal and foramen are patent. Visualized posterior nasopharynx: Normal. Prevertebral soft tissues: Normal. CT/CT cervical spin wo con* [id number] IMPRESSION: 1. Solid-appearing ACDF C5-C6. No evidence of hardware loosening. 2. Evidence of bony bridging beyond the confines of the graft at C5-C6. 3. Mild central canal stenosis C6-C7 with mild annular bulging with a tiny sha llow central protrusion similar to the prior MRI. 4. Bony foraminal narrowing. Mild to moderate LEFT C3-C4, moderate LEFT C4-C5, and mild to moderate LEFT C6-C7.
== END 2022-11-29 14:40 | disposition home or self-care (01) ==
LOC: RAD 14:42
PROVIDERS: PCP Nurse Practitioner Family; Visit Provider Anesthesiology Pain Medicine
DX: M48.02 Spinal stenosis, cervical region
CPT/HCPCS: 72125

== ENCOUNTER 2023-01-10 15:29 | Emergency (ER) | payer OTHER, SELFPAY ==
[2023-01-10] VITALS (8 sets, daily range): BP systolic 122–184; BP diastolic 69–110; PULSE 89–126; RESP 16; TEMP 36.8; O2SAT 95–100; BMI 33.9
--- NOTE | 2023-01-10 15:55 | ECG_ITS ---
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 Measurements Intervals [place] Rate: 97 P: 113 MN: 145 QRS: 143 QRSD: 89 T: 120 QT: 325 QTc: 414 Interpretive Statements SINUS RHYTHM WITH SINUS ARRHYTHMIA POSSIBLE LEFT ATRIAL ENLARGEMENT [-0.1mV P-WAVE IN V1/V2] LEFT POSTERIOR FASCICULAR BLOCK [QRS AXIS > 109, INFERIOR Q] INTERPRETATION BASED ON A DEFAULT AGE OF 40 YEARS Compared to ECG 07/28/2022 18:08:35 Left posterior fascicular block now present Sinus tachycardia no longer present Short MN interval no longer present Poor R-wave progression no longer present Electronically Signed On 01-11-2023 0:14:34 CDT by Reese Meraz M.D. [email or web address]/store/[id number]
--- NOTE | 2023-01-10 16:16 | XRR_ITS ---
PROCEDURE INFORMATION: Exam: XR Chest Exam date and time: 01/10/2023 4:39 PM Age: 42 years old Clinical indication: Pain; Angina pectoris; Prior surgery; Surgery date: 6+ months; Surgery type: Thyroid hyst appy; Additional info: Chest pain TECHNIQUE: Imaging protocol: Radiologic exam of the chest. Views: 1 view. COMPARISON: CR XR chest 1V portable [id number] 07/19/2022 10:25 AM FINDINGS: Lungs: Unremarkable. No consolidation. Pleural spaces: Unremarkable. No pleural effusion. No pneumothorax. Heart/Mediastinum: Unremarkable. No cardiomegaly. Bones/joints: Unremarkable. XR/XR chest 1V portable [id number] IMPRESSION: No acute findings.
--- NOTE | 2023-01-10 16:19 | ED_ITS ---
HPI - Chest Pain General: Chief Complaint: Chest Pain Stated Complaint: n/v, bp elevated Time Seen by Provider: 01/10/23 16:14 History of Present Illness: Presents to the ER with complaints of hypertension and chest pain since about 6:00 this morning. Patient did take 3 nitros at home about 50 minutes ago. Patient is also complaining of nausea vomiting at this time. Patient did have an episode of syncope in ER restroom. MD complaint: chest pain Pertinent past history: prior MS Onset (ago): hour(s) (About 10 hours ago) Timing of current episode: constant Prior episodes: Yes Pain location: substernal Pain radiation: none Severity: moderate Quality: aching Relieving factors: nothing Exacerbating factors: palpation Associated symptoms: Reports nausea and vomiting; Deny abdominal pain, dyspnea, fever(s) or palpitations Treatment prior to arrival: nitroglycerin Review of Systems General: Reports: 10 or more systems reviewed and unremarkable except in HPI and below Const: Denies: fever(s) or chills Eyes: Denies: change in vision or photophobia ENMT: Denies: throat pain or odynophagia Card: Reports: chest pain; Denies: palpitations Resp: Denies: dyspnea, productive cough or non-productive cough GI: Reports: nausea and vomiting; Denies: abdominal pain : Denies: flank pain, difficulty voiding or dysuria Musc: Denies: neck pain or back pain Skin/Breast: Denies: rash or pruritus Neuro: Denies: headache(s) or numbness in extremities PFSH ED PFSH: Medical History SHEL[place] (acute kidney injury) Bipolar 1 disorder, depressed, full remission Chest pain Chest pain at rest Chronic back pain Chronic neck and back pain Chronic renal disease CKD (chronic kidney disease) DM2 (diabetes mellitus, type 2) Generalized anxiety disorder GERD (gastroesophageal reflux disease) HLD (hyperlipidemia) Hypertensive emergency Hypertensive urgency, malignant Hypothyroid Hypothyroidism Hypothyroidism Malignant hypertension Nausea & vomiting Palpitation Post traumatic stress disorder (PTSD) Psychiatric care Pulmonary embolism Surgical History H/O angioplasty H/O esophagogastroduodenoscopy (08/12/20) H/O rectal polypectomy H/O total thyroidectomy History of appendectomy History of back surgery History of bilateral oophorectomy 2011 History of colonoscopy with polypectomy (08/12/20) History of spinal fusion 10/01/2013- C5-6, ACDFF Dr. Villanueva History of suburethral sling procedure anterior colporrhapy augmentd with porcine graft, cystoscopy performed on 03/08/[address] Haley History of total hysterectomy 2000 Hx of cholecystectomy Status post hemilaminotomy 01/06/2012, right L5-S1, disectomy and foraminotomy per Dr. Villanueva Family History Mother Diabetes Pancreatic cancer Ovarian cancer Father Diabetes Hypertension Stroke COPD (chronic obstructive pulmonary disease) Grandfather Hypertension maternal Heart disease maternal Grandmother Colon cancer maternal Social History Smoking and tobacco status: never smoked Second hand smoke exposure: Yes Smoking risk assessment/counseling performed?: Yes Alcohol intake: never Desire information about alcohol rehabilitation?: No Counseling given: No Substance/Drug Use: never Desire information about substance/drug rehabilitation?: No Counseling given: Yes Caregiver/support person: No Lives independently: Yes Household members: spouse Housing: House Marital status: Number of children: 8 Highest education level completed: GED or Equivalent service: No Current occupational status: unemployed Additional social history: well balanced diet Physical Exam Const: COMMON NORMALS: no acute distress, average body habitus, patient oriented x3, no limitations, healthy appearing, alert and well nourished HENMT: COMMON NORMALS: normocephalic, atraumatic, hearing grossly normal bilaterally, external ears normal, Normal external nose present and moist oral mucous membranes HEAD & SCALP: normocephalic and atraumatic NOSE: Normal external nose present EXTERNAL EAR: Yes external ears normal Eye: COMMON NORMALS: Equal, round and reactive pupils present, EOMs intact bilaterally, conjunctivae normal and no scleral icterus CONJUNCTIVA: Yes conjunctivae normal PUPIL: Yes Equal, round and reactive pupils present Neck/C-Spine: COMMON NORMALS: full ROM, no lymphadenopathy, supple, no meningeal signs, no JVD and Thyroid normal THYROID: Thyroid normal Lymph: LYMPHATIC: no lymphadenopathy noted Chest: CHEST: Yes tenderness (With palpation of the sternum) Resp: COMMON NORMALS: normal respiratory effort, No retractions, No use of accessory muscles and clear to auscultation bilaterally AUSCULTATION: clear to auscultation bilaterally Cardio: COMMON NORMALS: no JVD, regular rate, S1 normal heart sound present, S2 normal heart sound present, No gallops present (Cardio), No clicks present (Cardio), No murmurs present (Cardio) and No rub (Cardio) RATE: regular rate HEART SOUNDS: S1 normal heart sound present and S2 normal heart sound present GI: COMMON NORMALS: Normal to inspection, nondistended, normoactive bowel sounds present, Soft to palpation, non-tender, No hepatosplenomegaly present and no masses PALPATION: Yes Soft to palpation and Yes No hepatosplenomegaly present : COMMON NORMALS: Yes no CVA tenderness BLADDER/KIDNEY EXAM: Yes no CVA tenderness Back/Pelvis: COMMON NORMALS: no CVA tenderness, thoracic and lumbar spine normal to inspection, no thoracic nor lumbar tenderness and thoraco-lumbar ROM normal Extremity: COMMON NORMALS: normal to inspection Neuro: COMMON NORMALS: patient oriented x3 SENSORIUM/ORIENTATION: Yes alert MENINGEAL SIGNS: Yes no meningeal signs Course Vital Signs: Vital signs: Vital Signs Temperature 98.3 F 01/10/23 15:52 Pulse Rate 97 01/10/23 21:00 Respiratory Rate 16 01/10/23 21:00 Blood Pressure 149/95 01/10/23 21:00 Pulse Oximetry 96 01/10/23 21:00 Oxygen Delivery Me thod Room Air 01/10/23 18:33 MDM - Chest Pain Medical Decision Making Patient presents to the ER with complaints of hypertension and chest pain as well as a syncope episode in the ER restroom. Physical exam was performed lab work was obtained which revealed hemoglobin of 14.9 hematocrit 46.8 white blood cell count of 10.6 BUN/creatinine of 15 and 1.5 sodium of 135 potassium 4.7. Initial troponin was 23 2-hour troponin was 25.6 with a delta of 2.66. Serial EKGs was obtained which showed sinus rhythm with no ST or T wave changes. Patient complained of overall pain and lots of nausea through the ER stay. Patient was given clonidine 0.2 mg for high blood pressure. Patient was given multiple doses of pain medicine, anxiety medicine, and nausea medicine with relief of her symptoms. This is felt as not to be cardiac in nature. Patient will be discharged home to follow-up with her primary care in 1 week. Differential Diagnosis Unlikely acute massive pulmonary embolism, acute respiratory failure, acute myocardial infarction, cardiac arrest or sudden cardiac Lab Data 01/10/23 16:30 01/10/23 16:30 Radiology Impressions Chest X-Ray 01/10/23 16:16 IMPRESSION: No acute findings. Laboratory Results WBC 10.6 10^3/uL (4.0-10.0) H 01/10/23 16:30 RBC 5.26 10^6/uL (4.1-5.3) 01/10/23 16:30 Hgb 14.9 g/dL (11.5-15.3) 01/10/23 16: Hct 46.8 % (37.0-47.0) 01/10/23 16: MCV 89.0 fl (81-99) 01/10/23 16:30 MCH 28.3 pg (28.0-34.0) 01/10/23 16: MCHC 31.8 g/dL (30.0-36.0) 01/10/23 16: RDW 13.4 % (12.1-15.1) 01/10/23 16:30 Plt Count 256 10^3/cmm (130-400) 01/10/23 16: MPV 12.0 fL (7.4-10.4) H 01/10/23 16:30 Neut % (Auto) 85.8 % 01/10/23 16: Lymph % (Auto) 9.7 % 01/10/23 16: Hutchinson % (Auto) 3.1 % 01/10/23 16:30 Eos % (Auto) 0.1 % 01/10/23 16: Baso % (Auto) 0.7 % 01/10/23 16:30 Neut # (Auto) 9.07 10^3/uL (1.8-7.7) H 01/10/23 16:30 Lymph # (Auto) 1.0 10^3/uL (0.8-4.8) 01/10/23 16:30 Hutchinson # (Auto) 0.3 10^3/uL (0.2-0.9) 01/10/23 16:30 Eos # (Auto) 0.0 10^3/uL (0.0-0.8) 01/10/23 16:30 Baso # (Auto) 0.1 10^3/uL (0.0-0.1) 01/10/23 16:30 Nucleated RBC % (auto) 0 % 01/10/23 16:30 Nucleated RBCs # 0.0 /100WBC 01/10/23 16:30 Sodium 135 mmol/L (136-145) L 01/10/23 16:30 Potassium 4.7 mmol/L (3.5-5.1) 01/10/23 16:30 Chloride 93 mmol/L (98-107) L 01/10/23 16:30 Carbon Dioxide 22 mmol/L (22-29) 01/10/23 16:30 Anion Gap 24.7 (5-19) H 01/10/23 16:30 BUN 15 mg/dL (6-20) 01/10/23 16:30 Creatinine 1.5 mg/dL (0.5-0.9) H 01/10/23 16:30 GFR Calculation 37.7 mL/min (90-130) L 01/10/23 16:30 Glucose 161 mg/dL (65-115) H 01/10/23 16:30 Calculated Osmolality 284 mOsm/kg (285-295) L 01/10/23 16:30 Calcium 10.0 mg/dL (8.5-10.5) 01/10/23 16:30 Total Bilirubin 1.3 mg/dL (0.15-1.2) H 01/10/23 16:30 AST 14 U/L (0-32) 01/10/23 16:30 ALT 15 U/L (0-33) 01/10/23 16:30 Alkaline Phosphatase 84 U/L (35-105) 01/10/23 16:30 Troponin T Baseline 23 ng/L (0-10) H 01/10/23 16:30 Troponin T 120 Minute 25.66 ng/L (0-10) H 01/10/23 18:25 Delta Troponin T 2.66 ABS# (0-10) 01/10/23 18:25 NT-Pro-B Natriuret Pep 130 pg/mL (0-125) H 01/10/23 16:30 Total Protein 9.4 g/dL (6.6-8.7) H 01/10/23 16:30 Albumin 5.4 g/dL (3.5-5.2) H 01/10/23 16:30 Globulin 4.0 g/dL (1.3-4.6) 01/10/23 16:30 [place] 0.1 mmol/L (0.6-1.2) L 01/10/23 16:30 EKG Data EKG 1: I personally reviewed and interpreted this EKG as follows: EKG interpretation date: 01/10/23 EKG interpretation time: 15:55 Prior EKG tracings: not available for review Interpretation: EKG showed sinus rhythm with sinus arrhythmia, possible left atrial enlargement, left posterior fascicular block, ventricular rate of 97 AK of 145 QRS of 89 QTc of 414, no ST-T wave changes EKG 2: I personally reviewed and interpreted this EKG as follows: EKG interpretation date: 01/10/23 EKG interpretation time: 18:47 Prior EKG tracings: available for review Interpretation: EKG showed normal sinus rhythm with a ventricular rate of 86 bpm, AK interval 132, QRS duration 94, QTc of 394, no ST T wave changes Discharge Plan Discharge Patient Disposition: Home Clinical Impression: Atypical chest pain, Generalized anxiety disorder, Hypertension, Nausea & vomiting Condition: Stable Prescriptions: No Action hydromorphone 4 mg tablet 4 mg PO QID PRN (Reason: Pain) lithium carbonate 300 mg capsule See Rx Instructions PO .COMPLEX Qty: 90 11RF Rx Instructions: Take one tablet by mouth in the morning and two tablets by mouth at night. lorazepam [Ativan] 2 mg tablet See Rx Instructions PO .COMPLEX Qty: 60 5RF Rx Instructions: 1/2 (1mg) tablet in am 1/2 (1mg) tablet at noon and 1 (2mg) tablet at bedtime lurasidone 80 mg tablet 80 mg PO DAILY Qty: 30 11RF Rx Instructions: must administer with food (at least 350 calories) prazosin 2 mg capsule 4 mg PO .qhs Qty: 60 11RF (DME) pen needle, diabetic [1st Tier Unifine Pentips] 32 gauge x 5/32 needle See Rx Instructions .Route Qty: 50 0RF Rx Instructions: As directed nitroglycerin [Nitrostat] 0.4 mg tablet, sublingual 0.4 mg sublingual Q5M PRN (Reason: chest pain) Qty: 25 2RF Rx Instructions: do not exceed 3 doses per episode carvedilol 25 mg tablet 75 mg PO DIRECTED Rx Instructions: 50mg (2 tabs) in AM and 25mg (1 tab) in PM allopurinol 300 mg tablet 300 mg PO DAILY neomycin-polymyxin B-dexameth [Maxitrol] 3.5mg/mL-10,000 unit/mL-0.1 % drops,suspension 2 drp ophthalmic (eye) QID 7 Days Qty: 5 0RF Rx Instructions: Route-Ears to treat Otits Externa furosemide 20 mg tablet 20 mg PO DAILY Qty: 90 3RF isosorbide mononitrate 30 mg tablet extended release 24 hr 30 mg PO BID Qty: 180 3RF Rx Instructions: Use evening dose of imdur if BP> 130/80 mm Hg clonidine HCl 0.3 mg tablet 0.3 mg PO TID@0800,1200,2000 Qty: 90 6RF diltiazem HCl 240 mg capsule,extended release 24hr 240 mg PO BID Qty: 180 1RF Ozempic 0.25 mg or 0.5 mg(2 mg/1.5 mL) pen injector 0.5 mg SUBCUT Q7D 90 Days Qty: 5.2 2RF Rx Instructions: on sat lamotrigine 200 mg tablet See Rx Instructions .ROUTE .COMPLEX Qty: 30 11RF Dose Instruction: TAKE 1 TABLET BY MOUTH ONCE DAILY IN THE MORNING Rx Instructions: TAKE 1 TABLET BY MOUTH ONCE DAILY IN THE MORNING levothyroxine 137 mcg tablet 137 mcg PO DAILY 60 Days Qty: 60 0RF tizanidine 4 mg tablet 4 mg PO QID@08,12,16,20 ondansetron 8 mg tablet,disintegrating 8 mg PO Q8H PRN (Reason: Nausea And Vomiting) hydrocodone-acetaminophen 5-325 mg tablet 1 - 2 tab PO .Q4-6H Qty: 40 0RF terazosin 1 mg capsule 2 mg PO BID Discharge Orders: Discharge ED (Routine); Ordered 01/10/23 Ordered By: Franki Stiles Referrals: Michelle Rico, [employer]EL[employer] [Primary Care Provider] - Patient Instructions: Chest Pain (ED), Hypertension (ED), Acute Nausea and Vomiting (DC) Activity Restrictions/Additional Instructions: Take all your medicines as previously prescribed. Please follow-up with your primary care practitioner within 1 week for further evaluation and treatment of your symptoms. Coding Level of Care Code ED Surface Ship Usw Supervisor for Ingrid Lindsay
[2023-01-10] MEDS: sodium chloride 0.9% 1,000 ML 999 ML IV (16:34)
[2023-01-10] MEDS: ondansetron 2 mg/ML SDV 2 mL 4 MG IVP (16:36)
[2023-01-10 16:41] LABS: Basophils # 0.1 10^3/uL (0.0-0.1); Basophils % 0.7 %; Eosinophils % 0.1 %; Hematocrit 46.8 % (37.0-47.0); Hemoglobin 14.9 g/dL (11.5-15.3); Lymphocytes % 9.7 %; Mean Corpuscular HGB Conc 31.8 g/dL (30.0-36.0); Mean Corpuscular Hemoglobin 28.3 pg (28.0-34.0); Monocytes # 0.3 10^3/uL (0.2-0.9); Monocytes % 3.1 %; Neutrophils # 9.07 10^3/uL (1.8-7.7); Neutrophils % 85.8 %; Nucleated Red Blood Cells % 0 %; Platelet Count 256 10^3/cmm (130-400); Red Blood Count 5.26 10^6/uL (4.1-5.3); Red Cell Distribution Width 13.4 % (12.1-15.1); White Blood Count 10.6 10^3/uL (4.0-10.0)
[2023-01-10 17:07] LABS: Lithium 0.1 mmol/L (0.6-1.2)
[2023-01-10 17:12] LABS: Troponin(5th) Baseline 23 ng/L (0-10)
[2023-01-10 17:19] LABS: Alanine Aminotransferase 15 U/L (0-33); Albumin Level 5.4 g/dL (3.5-5.2); Alkaline Phosphatase 84 U/L (35-105); Anion Gap 24.7 (5-19); Aspartate Amino Transferase 14 U/L (0-32); Blood Urea Nitrogen 15 mg/dL (6-20); Carbon Dioxide 22 mmol/L (22-29); Chloride 93 mmol/L (98-107); Glomerular Filtration Rate 37.7 mL/min (90-130); Glucose 161 mg/dL (65-115); NT Pro B Type Natriuretic Pept 130 pg/mL (0-125); Osmolality Calculated 284 mOsm/kg (285-295); Potassium 4.7 mmol/L (3.5-5.1); Sodium 135 mmol/L (136-145); Total Bilirubin 1.3 mg/dL (0.15-1.2); Total Protein 9.4 g/dL (6.6-8.7)
[2023-01-10] MEDS: LORazepam 2 mg/mL INJ 1 mL 1 MG IVP ×2 (17:39→18:31)
[2023-01-10] MEDS: benzonatate 100 mg Capsule 200 MG PO (17:40)
--- NOTE | 2023-01-10 18:16 | ECG_ITS ---
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 Measurements Intervals [place] Rate: 86 P: 20 NJ: 132 QRS: 28 QRSD: 94 T: 16 QT: 351 QTc: 420 Interpretive Statements SINUS RHYTHM Compared to ECG 01/10/2023 15:55:57 Sinus arrhythmia no longer present Left posterior fascicular block no longer present Electronically Signed On 01-11-2023 17:01:12 CDT by Rodolfo Chen M.D. [email or web address] User Swedendelta regional medical centerRB-[facility]un[facility].[employer]/store/OM/[id number]
[2023-01-10] MEDS: morphine 4 mg/mL SDV 1 mL IVP (18:31)
[2023-01-10 18:57] LABS: Troponin 5 2HR 25.66 ng/L (0-10)
[2023-01-10 18:58] LABS: Troponin 5 2HR Delta 2.66 ABS# (0-10)
[2023-01-10] MEDS: cloNIDine 0.1 mg Tablet 0.2 MG PO (19:03)
[2023-01-10] MEDS: prochlorperazine 10 mg/2 mL Inj IVP (19:49)
[2023-01-10] MEDS: haloperidol inj 5 mg/mL INJ 1 mL IVP (19:49)
== END 2023-01-10 21:49 | disposition home or self-care (01) ==
PROVIDERS: Emergency Provider Emergency Medicine; PCP Nurse Practitioner Family
DX: R07.89 Other chest pain (principal); F41.1 Generalized anxiety disorder; R11.2 Nausea with vomiting, unspecified; Z77.22 Contact with and (suspected) exposure to environmental tobacco smoke (acute) (chronic); E78.5 Hyperlipidemia, unspecified; E11.22 Type 2 diabetes mellitus with diabetic chronic kidney disease; I12.9 Hypertensive chronic kidney disease with stage 1 through stage 4 chronic kidney disease, or unspecified chronic kidney disease; N18.9 Chronic kidney disease, unspecified
CPT/HCPCS: 36415; 71045; 80053; 80178; 83880; 84484; 85025; 93005; 96372; 96374; 96375; 96376; 99285; J0780; J1630; J2060; J2270; J2405; J2550; J7030

== ENCOUNTER 2023-02-15 08:04 | Outpatient (CLI) | payer OTHER, SELFPAY ==
--- NOTE | 2023-02-15 08:34 | XR_ITS ---
WS: [id number] EXAMINATION: XR knee LT 3V* [id number] REASON FOR EXAM: LEFT KNEE PAIN COMPARISON: None available. ORDER DATE: 02/15/2023 9:08 AM FINDINGS: There is no sign of any acute osseous or articular abnormality. There are no specific soft tissue abn ormalities. XR/XR knee LT 3V* [id number] IMPRESSION: No acute change
--- NOTE | 2023-02-15 08:34 | XR_ITS ---
WS: [id number] EXAMINATION: XR knee RT 3V* [id number] REASON FOR EXAM: RIGHT KNEE PAIN COMPARISON: 10/11/2004. ORDER DATE: 02/15/2023 9:08 AM FINDINGS: There is no sign of any acute osseous or articular abnormality. There are no specific soft tissue abn ormalities. XR/XR knee RT 3V* [id number] IMPRESSION: No acute change
[2023-02-15 09:14] LABS: Free T4 Free Thyroxine 0.43 ng/dL (0.82-1.77)
[2023-02-16 14:08] LABS: T3 Total 42 ng/dL (76-181)
== END 2023-02-15 08:05 | disposition home or self-care (01) ==
PROVIDERS: PCP Nurse Practitioner Family; Referring Provider Internal Medicine; Visit Provider Anesthesiology Pain Medicine
DX: M25.561 Pain in right knee (principal); M25.562 Pain in left knee; E11.9 Type 2 diabetes mellitus without complications; E78.5 Hyperlipidemia, unspecified; E03.9 Hypothyroidism, unspecified; R10.9 Unspecified abdominal pain
CPT/HCPCS: 36415; 73562; 84439; 84443; 84480

== ENCOUNTER → 2023-02-22 10:02 | Outpatient (BNVA) | payer OTHER, SELFPAY | PROVIDERS: PCP Nurse Practitioner Family; Visit Provider Internal Medicine | DX: E11.9 Type 2 diabetes mellitus without complications (principal); E78.5 Hyperlipidemia, unspecified; E03.9 Hypothyroidism, unspecified; R10.9 Unspecified abdominal pain; N18.9 Chronic kidney disease, unspecified | CPT/HCPCS: 36415; 82306; 83036; 84439 ==

== ENCOUNTER 2023-03-17 08:09 | Outpatient (CLI) | payer OTHER, SELFPAY ==
[2023-03-17 09:09] LABS: Lithium 0.8 mmol/L (0.6-1.2)
== END 2023-03-17 08:10 | disposition home or self-care (01) ==
LOC: RAD 08:13
PROVIDERS: Family Provider Psychiatry & Neurology Psychiatry; PCP Nurse Practitioner Family; Visit Provider Anesthesiology Pain Medicine
DX: Z79.899 Other long term (current) drug therapy (principal)
CPT/HCPCS: 80178

== ENCOUNTER 2023-04-06 08:57 | Outpatient (CLI) | payer OTHER, SELFPAY ==
--- NOTE | 2023-04-06 09:04 | MR_ITS ---
WS: [id number] MRI RIGHT KNEE HISTORY: R KNEE PAIN COMPARISON: Radiographs 02/15/2023 Anterior cruciate ligament: Intact. Posterior cruciate ligament: Intact. Medial collateral ligament: Intact. Posterior lateral corner structures: Intact. Medial menisci: Mild intrasubstance degeneration of the posterior horn. There is very slight blunting and increased T2 signal at the free edge. No tear identified. Lateral meniscus: Intact. Normal signal, size and shape. Extensor mechanism: Distal quadriceps tendon and patellar tendons are intact. Fluid and soft tissue: No joint effusion. No Hernandez's cyst. Osseous and articular structures: Patellofemoral compartment: Focal area of increased signal medial patellar facet. No full-thickness c artilage defect and no underlying marrow edema. Medial compartment: Negative. No marrow edema. No full-thickness cartilage defect. Lateral compartment: Superficial increased signal involving the weightbearing surface of the lateral tibial plateau. No full-thickness cartilage defect. IMPRESSION: 1. Minimal intrasubstance degeneration posterior horn medial meniscus with a tiny amount of increase d T2 signal at the free edge. No full-thickness tear identified. 2. Minimal superficial increased T2 signal involving the weightbearing surface cartilage of the late ral tibial plateau. 3. No marrow edema.
== END 2023-04-06 08:58 | disposition home or self-care (01) ==
PROVIDERS: PCP Nurse Practitioner Family; Visit Provider Anesthesiology Pain Medicine
DX: M25.561 Pain in right knee (principal)
CPT/HCPCS: 73721

== ENCOUNTER 2023-04-08 01:24 | Emergency (ER) | payer OTHER, SELFPAY ==
--- NOTE | 2023-04-08 01:27 | XRR_ITS ---
PROCEDURE INFORMATION: Exam: XR Chest Exam date and time: 04/08/2023 1:49 AM Age: 43 years old Clinical indication: Chest pressure; Prior surgery; Surgery date: 6+ months; Surgery type: Thyroidectomy. Gb; Patient HX: Chest pain with n/v; Additional info: Cp TECHNIQUE: Imaging protocol: Radiologic exam of the chest. Views: 1 view. COMPARISON: CR XR chest 1V portable [id number] 01/10/2023 4:39 PM FINDINGS: Lungs: Low lung volumes and subtle bronchovascular crowding, likely related to portable technique. No consolidation. Pleural spaces: Unremarkable. No pleural effusion. No pneumothorax. Heart/Mediastinum: Unremarkable. No cardiomegaly. Bones/joints: Unremarkable. XR/XR chest 1V portable [id number] IMPRESSION: No acute radiographic findings in the chest.
--- NOTE | 2023-04-08 01:27 | ECG_ITS ---
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 Measurements Intervals [place] Rate: 80 P: 16 [place]: 151 QRS: 100 QRSD: 86 T: 45 QT: 339 QTc: 393 Interpretive Statements SINUS RHYTHM BORDERLINE RIGHT AXIS DEVIATION [QRS AXIS > 90] Compared to ECG 01/10/2023 18:47:04 No significant changes Electronically Signed On 04-08-2023 9:26:02 CDT by Rodolfo Chen M.D. [email or web address] regional medical centerAll Together Nowour [facility].Ale[employer]/store/OM/[id number]
[2023-04-08 01:38] VITALS: BP 196/145; PULSE 85; RESP 16; TEMP 36.9; O2SAT 98; BMI 32.3
--- NOTE | 2023-04-08 01:43 | W.ED.CHESTPA ---
HPI - Chest Pain General: Chief Complaint: Chest Pain Stated Complaint: Chest Pain\N\V\High BP Time Seen by Provider: 04/08/23 01:27 Source: patient Mode of arrival: ambulatory Limitations: no limitations History of Present Illness: 43-year-old female states she has had vomiting over the last 3 to 4 hours. States she had history of vomiting in the past especially when she gets hypertensive states her blood pressures been running high and she has not been able to keep her blood pressure meds down because she threw them up. She has had some slight chest pain states more is a burning type pain denies any shortness of breath denies any abdominal pain. Associated symptoms: Reports nausea and vomiting; Deny abdominal pain, dyspnea or fever(s) Review of Systems Const: Denies: fever(s) or chills ENMT: Denies: throat pain or dental pain Card: Reports: chest pain Resp: Denies: dyspnea GI: Reports: nausea and vomiting; Denies: abdominal pain or diarrhea : Denies: dysuria Musc: Denies: neck pain or back pain Skin/Breast: Denies: rash Neuro: Denies: headache(s) PFSH ED PFSH: Medical History SHELTON (acute kidney injury) Bipolar 1 disorder, depressed, full remission Chest pain Chest pain at rest Chronic back pain Chronic neck and back pain Chronic renal disease CKD (chronic kidney disease) DM2 (diabetes mellitus, type 2) Generalized anxiety disorder GERD (gastroesophageal reflux disease) HLD (hyperlipidemia) Hypertensive emergency Hypertensive urgency, malignant Hypothyroid Hypothyroidism Hypothyroidism Malignant hypertension Nausea & vomiting Palpitation Post traumatic stress disorder (PTSD) Psychiatric care Pulmonary embolism Surgical History H/O angioplasty H/O esophagogastroduodenoscopy (08/12/20) H/O rectal polypectomy H/O total thyroidectomy History of appendectomy History of back surgery History of bilateral oophorectomy 2011 History of colonoscopy with polypectomy (08/12/20) History of spinal fusion 10/01/2013- C5-6, ACDFF Dr. Villanueva History of suburethral sling procedure anterior colporrhapy augmentd with porcine graft, cystoscopy performed on 03/08/[address] Haley History of total hysterectomy 2001 Hx of cholecystectomy Status post hemilaminotomy 01/06/2012, right L5-S1, disectomy and foraminotomy per Dr. Villanueva Family History Mother Diabetes Pancreatic cancer Ovarian cancer Father Diabetes Hypertension Stroke COPD (chronic obstructive pulmonary disease) Grandfather Hypertension maternal Heart disease maternal Grandmother Colon cancer maternal Social History Smoking and tobacco status: never smoked Second hand smoke exposure: Yes Smoking risk assessment/counseling performed?: Yes Alcohol intake: never Desire information about alcohol rehabilitation?: No Counseling given: No Substance/Drug Use: never Desire information about substance/drug rehabilitation?: No Counseling given: Yes Caregiver/support person: No Lives independently: Yes Household members: spouse Housing: House Marital status: Number of children: 8 Highest education level completed: GED or Equivalent service: No Current occupational status: unemployed Additional social history: well balanced diet Physical Exam Const: COMMON NORMALS: no acute distress, patient oriented x3 and healthy appearing Eye: COMMON NORMALS: Equal, round and reactive pupils present and EOMs intact bilaterally PUPIL: Yes Equal, round and reactive pupils present Neck/C-Spine: COMMON NORMALS: full ROM and supple Chest: COMMONS NORMALS: normal inspection of the chest and normal palpation of entire chest wall Resp: COMMON NORMALS: normal respiratory effort, No retractions, No use of accessory muscles and clear to auscultation bilaterally AUSCULTATION: clear to auscultation bilaterally Cardio: COMMON NORMALS: regular rate, regular rhythm and No murmurs present (Cardio) RATE: regular rate RHYTHM: regular rhythm GI: COMMON NORMALS: Normal to inspection, nondistended, normoactive bowel sounds present, Soft to palpation, non-tender and no masses PALPATION: Yes Soft to palpation Extremity: COMMON NORMALS: normal to inspection and full ROM Neuro: COMMON NORMALS: patient oriented x3, moves all extremities and no focal motor deficits Psych: COMMON NORMALS: mental status grossly normal, Normal thought process present and cooperative THOUGHT PROCESS: Normal thought process present Skin: COMMON NORMALS: no rashes or lesions noted and no wounds GENERAL SKIN EXAM: no rashes or lesions noted Course Vital Signs: Vital signs: Vital Signs Temperature 98.5 F 04/08/23 01:38 Pulse Rate 74 04/08/23 03:11 Respiratory Rate 16 04/08/23 03:11 Blood Pressure 170/101 04/08/23 03:11 Pulse Oximetry 99 04/08/23 03:11 Oxygen Delivery Me thod Room Air 04/08/23 01:38 MDM - Chest Pain Medical Decision Making Patient presents here with vomiting she has had episodes of vomiting past her vomiting is improved here she is also hypertensive likely due to not taking her meds has chest pains atypical troponins are normal no signs of acute coronary syndrome we will prescribe her Phenergan for home she is to follow-up with PCP and return if worsening her blood pressure is currently 135/81 Medical Records I reviewed the patient's medical records. Lab Data I reviewed the patient's lab results. 04/08/23 01:58 04/08/23 01:58 Radiology Impressions Chest X-Ray 04/08/23 01:27 IMPRESSION: No acute radiographic findings in the chest. Laboratory Results WBC 10.4 10^3/uL (4.0-10.0) H 04/08/23 01:58 RBC 4.92 10^6/uL (4.1-5.3) 04/08/23 01:58 Hgb 14.0 g/dL (11.5-15.3) 04/08/23 01:58 Hct 44.7 % (37.0-47.0) 04/08/23 01:58 MCV 90.9 fl (81-99) 04/08/23 01:58 MCH 28.5 pg (28.0-34.0) 04/08/23 01:58 MCHC 31.3 g/dL (30.0-36.0) 04/08/23 01:58 RDW 14.0 % (12.1-15.1) 04/08/23 01:58 Plt Count 252 10^3/cmm (130-400) 04/08/23 01:58 MPV 11.7 fL (7.4-10.4) H 04/08/23 01:58 Neut % (Auto) 61.3 % 04/08/23 01:58 Lymph % (Auto) 28.3 % 04/08/23 01:58 Wallace % (Auto) 6.4 % 04/08/23 01:58 Eos % (Auto) 1.8 % 04/08/23 01:58 Baso % (Auto) 1.1 % 04/08/23 01:58 Neut # (Auto) 6.38 10^3/uL (1.8-7.7) 04/08/23 01:58 Lymph # (Auto) 3.0 10^3/uL (0.8-4.8) 04/08/23 01:58 Wallace # (Auto) 0.7 10^3/uL (0.2-0.9) 04/08/23 01:58 Eos # (Auto) 0.2 10^3/uL (0.0-0.8) 04/08/23 01:58 Baso # (Auto) 0.1 10^3/uL (0.0-0.1) 04/08/23 01:58 Nucleated RBC % (auto) 0 % 04/08/23 01:58 Nucleated RBCs # 0.0 /100WBC 04/08/23 01:58 Sodium 143 mmol/L (136-145) 04/08/23 01:58 Potassium 3.9 mmol/L (3.5-5.1) 04/08/23 01:58 Chloride 103 mmol/L (98-107) 04/08/23 01:58 Carbon Dioxide 25 mmol/L (22-29) 04/08/23 01:58 Anion Gap 18.9 (5-19) 04/08/23 01:58 BUN 8 mg/dL (6-20) 04/08/23 01:58 Creatinine 1.7 mg/dL (0.5-0.9) H 04/08/23 01:58 GFR Calculation 32.5 mL/min (90-130) L 04/08/23 01:58 Glucose 136 mg/dL (65-115) H 04/08/23 01:58 Calculated Osmolality 296 mOsm/kg (285-295) H 04/08/23 01:58 Calcium 9.5 mg/dL (8.5-10.5) 04/08/23 01:58 Total Bilirubin 0.4 mg/dL (0.15-1.2) 04/08/23 01:58 AST 11 U/L (0-32) 04/08/23 01:58 ALT 8 U/L (0-33) 04/08/23 01:58 Alkaline Phosphatase 54 U/L (35-105) 04/08/23 01:58 Troponin T Baseline 7 ng/L (0-10) 04/08/23 01:58 Troponin T 120 Minute 7.07 ng/L (0-10) 04/08/23 04:00 Total Protein 7.8 g/dL (6.6-8.7) 04/08/23 01:58 Albumin 4.9 g/dL (3.5-5.2) 04/08/23 01:58 Globulin 2.9 g/dL (1.3-4.6) 04/08/23 01:58 Lipase 73 U/L (13-60) H 04/08/23 01:58 EKG Data EKG 1: I personally reviewed and interpreted this EKG as follows: EKG interpretation date: 04/08/23 EKG interpretation time: 01:40 Interpretation: nsr hr [address] or t wave abnormalities qrs 86 qtc 375 Discharge Plan Discharge Patient Disposition: Home Clinical Impression: Chest pain, Hypertension, Vomiting Condition: Stable Prescriptions: New promethazine 25 mg tablet 25 mg PO Q6H PRN (Reason: nausea and vomiting) Qty: 20 0RF No Action hydromorphone 4 mg tablet 4 mg PO QID PRN (Reason: Pain) lithium carbonate 300 mg capsule See Rx Instructions PO .COMPLEX Qty: 90 11RF Rx Instructions: Take one tablet by mouth in the morning and two tablets by mouth at night. prazosin 2 mg capsule 4 mg PO .qhs Qty: 60 11RF (DME) pen needle, diabetic [1st Tier Unifine Pentips] 32 gauge x 5/32 needle See Rx Instructions .Route Qty: 50 0RF Rx Instructions: As directed allopurinol 300 mg tablet 300 mg PO DAILY carvedilol 25 mg tablet 75 mg PO DIRECTED Qty: 270 3RF Rx Instructions: 50mg (2 tabs) in AM and 25mg (1 tab) in PM clonidine HCl 0.3 mg tablet 0.3 mg PO TID@0800,1200,2000 Qty: 90 6RF diltiazem HCl 240 mg capsule,extended release 24hr 240 mg PO BID Qty: 180 1RF furosemide 20 mg tablet 20 mg PO DAILY Qty: 90 3RF nitroglycerin [Nitrostat] 0.4 mg tablet, sublingual 0.4 mg sublingual Q5M PRN (Reason: chest pain) Qty: 25 6RF Rx Instructions: do not exceed 3 doses per episode lamotrigine 200 mg tablet See Rx Instructions .ROUTE .COMPLEX Qty: 30 11RF Dose Instruction: TAKE 1 TABLET BY MOUTH ONCE DAILY IN THE MORNING Rx Instructions: TAKE 1 TABLET BY MOUTH ONCE DAILY IN THE MORNING levothyroxine 175 mcg tablet 175 mcg PO DAILY Qty: 30 2RF Rx Instructions: take 1 tablet by mouth once daily lurasidone 80 mg tablet 80 mg PO DAILY Qty: 30 11RF Rx Instructions: must administer with food (at least 350 calories) lorazepam 2 mg tablet See Rx Instructions PO .COMPLEX Qty: 60 5RF Rx Instructions: orally; Take one half by mouth in AM and at noon, then take one at bedtime isosorbide mononitrate 30 mg tablet extended release 24 hr 30 mg PO BID Qty: 180 3RF Rx Instructions: Use evening dose of imdur if BP> 130/80 mm Hg hydralazine 50 mg tablet 50 - 100 mg PO TID PRN (Reason: Systolic BP >180) Qty: 540 1RF Rx Instructions: May take 1-2 tabs TID PRN for systolic BP >180. Ozempic 0.25 mg or 0.5 mg(2 mg/1.5 mL) pen injector 0.5 mg SUBCUT Q7D 90 Days Qty: 5.2 2RF Rx Instructions: on sat tizanidine 4 mg tablet 4 mg PO QID@08,12,16,20 ondansetron 8 mg tablet,disintegrating 8 mg PO Q8H PRN (Reason: Nausea And Vomiting) hydrocodone-acetaminophen 5-325 mg tablet 1 - 2 tab PO .Q4-6H Qty: 40 0RF terazosin 1 mg capsule 2 mg PO BID Discharge Orders: Discharge ED (Routine); Ordered 04/08/23 Ordered By: James Mohan Referrals: Michelle Rico, COMMUNITY DEVELOPMENT WORKER [Primary Care Provider] - 1-3 days Discharge Diet: Advance as tolerated Discharge Activity: Resume usual activity Patient Instructions: Chest Pain (ED), Acute Nausea and Vomiting (ED) Coding Level of Care Code ED Diesel Service Technician for Ingrid Lindsay
[2023-04-08] MEDS: diphenhydrAMINE 50 mg/mL SDV 1mL IVP (01:59)
[2023-04-08] MEDS: metoclopramide 5 mg/mL SDV 2 mL 10 MG IVP (02:00)
[2023-04-08] MEDS: labetalol 5 mg/mL SDV 20mL 10 MG IVP (02:00)
[2023-04-08 02:04] VITALS: BP 209/122; PULSE 95; RESP 12; O2SAT 98
[2023-04-08 02:06] LABS: Basophils # 0.1 10^3/uL (0.0-0.1); Basophils % 1.1 %; Eosinophils # 0.2 10^3/uL (0.0-0.8); Eosinophils % 1.8 %; Hematocrit 44.7 % (37.0-47.0); Lymphocytes % 28.3 %; Mean Corpuscular HGB Conc 31.3 g/dL (30.0-36.0); Mean Corpuscular Hemoglobin 28.5 pg (28.0-34.0); Mean Corpuscular Volume 90.9 fl (81-99); Mean Platelet Volume 11.7 fL (7.4-10.4); Monocytes # 0.7 10^3/uL (0.2-0.9); Monocytes % 6.4 %; Neutrophils # 6.38 10^3/uL (1.8-7.7); Neutrophils % 61.3 %; Nucleated Red Blood Cells % 0 %; Platelet Count 252 10^3/cmm (130-400); Red Blood Count 4.92 10^6/uL (4.1-5.3); White Blood Count 10.4 10^3/uL (4.0-10.0)
[2023-04-08 02:29] LABS: Troponin(5th) Baseline 7 ng/L (0-10)
[2023-04-08 02:32] LABS: Alanine Aminotransferase 8 U/L (0-33); Albumin Level 4.9 g/dL (3.5-5.2); Alkaline Phosphatase 54 U/L (35-105); Anion Gap 18.9 (5-19); Aspartate Amino Transferase 11 U/L (0-32); Blood Urea Nitrogen 8 mg/dL (6-20); Calcium 9.5 mg/dL (8.5-10.5); Carbon Dioxide 25 mmol/L (22-29); Chloride 103 mmol/L (98-107); Globulin 2.9 g/dL (1.3-4.6); Glomerular Filtration Rate 32.5 mL/min (90-130); Glucose 136 mg/dL (65-115); Lipase 73 U/L (13-60); Osmolality Calculated 296 mOsm/kg (285-295); Potassium 3.9 mmol/L (3.5-5.1); Sodium 143 mmol/L (136-145); Total Bilirubin 0.4 mg/dL (0.15-1.2); Total Protein 7.8 g/dL (6.6-8.7)
[2023-04-08] MEDS: LORazepam 2 mg/mL INJ 1 mL 1 MG IVP (02:50)
[2023-04-08] MEDS: ondansetron 2 mg/ML SDV 2 mL 4 MG IVP (03:10)
[2023-04-08 03:11] VITALS: BP 170/101; PULSE 74; RESP 16; O2SAT 99
[2023-04-08] MEDS: haloperidol inj 5 mg/mL INJ 1 mL 2 MG IVP (03:15)
[2023-04-08] MEDS: hyDRALAzine 20 mg/mL INJ 1 mL 10 MG IVP (03:15)
[2023-04-08] MEDS: tizanidine 4 mg Tablet PO (03:29)
[2023-04-08 04:38] LABS: Troponin 5 2HR 7.07 ng/L (0-10); Troponin 5 2HR Delta 0.07 ABS# (0-10)
[2023-04-08 04:40] VITALS: BP 135/81; PULSE 83; RESP 25; O2SAT 99
== END 2023-04-08 04:43 | disposition home or self-care (01) ==
PROVIDERS: Emergency Provider Emergency Medicine; PCP Nurse Practitioner Family
DX: R07.9 Chest pain, unspecified (principal); R11.11 Vomiting without nausea; Z77.22 Contact with and (suspected) exposure to environmental tobacco smoke (acute) (chronic); E78.5 Hyperlipidemia, unspecified; E11.22 Type 2 diabetes mellitus with diabetic chronic kidney disease; I12.9 Hypertensive chronic kidney disease with stage 1 through stage 4 chronic kidney disease, or unspecified chronic kidney disease; N18.9 Chronic kidney disease, unspecified
CPT/HCPCS: 36415; 71045; 80053; 83690; 84484; 85025; 93005; 96374; 96375; 99285; J0360; J1200; J1630; J2060; J2405; J2765; J3490

== ENCOUNTER 2023-05-06 12:06 | Outpatient (CLI) | payer OTHER, SELFPAY ==
[2023-05-06 12:32] LABS: Add Urine Microscopic? NO; Charge for UA Resulting for Rev
[2023-05-06 12:39] LABS: Bilirubin Urine Neg (Negative); Blood Urine Neg (Negative); Glucose Urine UA Norm (Normal); Ketones Urine Negative (Negative); Leukocyte Esterase Urine Negative (Negative); Nitrate Urine Negative (Negative); Protein Urine Neg (Negative); Urine Appearance Clear (CLEAR); Urine Color Yellow (Yellow); Urobilinogen Urine Norm (Negative); pH Urine 6.5 (5-7)
[2023-05-06 12:58] LABS: Creatinine Urine, Random 182 mg/dL (28-217); Microalbum Creatinine Ratio Ur 5 mg/dL (0-20); Microalbumin Random Urine 1 ug/dL (0-20); Urine Creatinine 191 mg/dL (28-217); Urine Protein Random 12 mg/dL
[2023-05-06 12:59] LABS: UPRO/UCREAT Ratio 0.06 mg/mg CR
[2023-05-06 13:09] LABS: Calcium 9.3 mg/dL (8.5-10.5)
[2023-05-06 13:13] LABS: Parathyroid Hormone 34.8 pg/mL (15-65)
[2023-05-06 13:14] LABS: Estmated Average Glucose 126
[2023-05-06 13:15] LABS: Alanine Aminotransferase 9 U/L (0-33); Albumin Level 4.8 g/dL (3.5-5.2); Alkaline Phosphatase 47 U/L (35-105); Anion Gap 14.9 (5-19); Aspartate Amino Transferase 13 U/L (0-32); Blood Urea Nitrogen 6 mg/dL (6-20); Calcium 9.4 mg/dL (8.5-10.5); Carbon Dioxide 26 mmol/L (22-29); Chloride 102 mmol/L (98-107); Chol HDL Ratio 1.95 mg/dL (0.0-4.40); Cholesterol 109 mg/dL (0-200); Free T4 Free Thyroxine 0.95 ng/dL (0.82-1.77); Glomerular Filtration Rate 44.3 mL/min (90-130); Glucose 123 mg/dL (65-115); HDL Cholesterol 56 mg/dL (60-100); LDL Cholesterol Calculated 44 mg/dL (50-129); LDL HDL Ratio 0.79 RATIO (0.00-3.22); Osmolality Calculated 285 mOsm/kg (285-295); Potassium 4.9 mmol/L (3.5-5.1); Sodium 138 mmol/L (136-145); Thyroid Stimulating Hormone 85.51 uIU/mL (0.27-4.20); Total Bilirubin 0.5 mg/dL (0.15-1.2); Total Protein 7.8 g/dL (6.6-8.7); Triglycerides 43 mg/dL (0-150)
[2023-05-06 13:37] LABS: Magnesium 2.2 mg/dL (1.7-2.3); Phosphorus 2.7 mg/dL (2.5-4.5); Uric Acid 4.3 mg/dL (2.4-5.7)
[2023-05-06 13:52] LABS: 25 Hydroxy Vitamin D 33 ng/mL (30-100)
== END 2023-05-06 12:07 | disposition home or self-care (01) ==
PROVIDERS: PCP Nurse Practitioner Family; Visit Provider Internal Medicine
DX: E03.9 Hypothyroidism, unspecified (principal); E11.9 Type 2 diabetes mellitus without complications; E78.5 Hyperlipidemia, unspecified; R10.9 Unspecified abdominal pain; N18.9 Chronic kidney disease, unspecified; Z79.899 Other long term (current) drug therapy
CPT/HCPCS: 36415; 80053; 80061; 81003; 82044; 82306; 82310; 82570; 83036; 83735; 83970; 84100; 84156; 84439; 84443; 84550

== ENCOUNTER → 2023-05-16 10:38 | Outpatient (BNVA) | payer OTHER, SELFPAY | PROVIDERS: PCP Nurse Practitioner Family; Referring Provider Anesthesiology Pain Medicine; Visit Provider Specialist | DX: M25.561 Pain in right knee (principal) | CPT/HCPCS: 73560; 73565 ==

== ENCOUNTER 2023-06-21 17:55 | Emergency (ER) | payer OTHER, SELFPAY ==
--- NOTE | 2023-06-21 17:59 | XRR_ITS ---
PROCEDURE INFORMATION: Exam: XR Chest Exam date and time: 06/21/2023 6:11 PM Age: 43 years old Clinical indication: Pain; Chest pressure; Additional info: Cp TECHNIQUE: Imaging protocol: Radiologic exam of the chest. Views: 1 view. COMPARISON: CR XR chest 1V portable [id number] 04/08/2023 1:49 AM FINDINGS: Lungs: Unremarkable. No consolidation. Pleural spaces: Unremarkable. No pleural effusion. No pneumothorax. Heart/Mediastinum: Unremarkable. No cardiomegaly. Bones/joints: C-spine fusion hardware. No fracture. XR/XR chest 1V portable [id number] IMPRESSION: No acute findings.
--- NOTE | 2023-06-21 17:59 | ECG_ITS ---
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 Measurements Intervals [place] Rate: 74 P: 44 RI: 146 QRS: 103 QRSD: 89 T: 43 QT: 356 QTc: 396 Interpretive Statements SINUS RHYTHM RIGHT AXIS DEVIATION [QRS AXIS > 100] Compared to ECG 04/08/2023 01:40:48 No significant changes Electronically Signed On 06-22-2023 8:02:22 CDT by Rodolfo Chen M.D. [id number]
[2023-06-21 18:03] VITALS: BP 189/134; PULSE 77; RESP 16; TEMP 36.8; O2SAT 96; BMI 31.9
--- NOTE | 2023-06-21 18:15 | W.ED.ABDPA2 ---
HPI - Abdominal Pain General: Chief Complaint: Abdominal Pain Stated Complaint: chest pain/headache Time Seen by Provider: 06/21/23 18:07 Source: patient Mode of arrival: ambulatory Limitations: no limitations History of Present Illness: 43-year-old female states she been having nausea vomiting over the last 2 days. States been having some abdominal pain along with chest pain. States she is unable to take any of her meds due to this and its caused her to have high blood pressure she not been able to take her high blood pressure meds along with a slight headache. She denies any worsening improving factors denies any diarrhea. Associated Symptoms: Reports nausea and vomiting; Denies chills, diarrhea, dysuria and fever(s) Review of Systems Const: Denies: fever(s), chills, body aches or change in appetite Eyes: Denies: blurry vision or eye discomfort ENMT: Denies: throat pain or dental pain Card: Reports: chest pain Resp: Denies: dyspnea GI: Reports: abdominal pain, nausea and vomiting; Denies: diarrhea : Denies: dysuria Musc: Denies: neck pain or back pain Skin/Breast: Denies: rash Neuro: Reports: headache(s) PFSH ED PFSH: Medical History SHEL[place] (acute kidney injury) Bipolar 1 disorder, depressed, full remission Chest pain Chest pain at rest Chronic back pain Chronic neck and back pain Chronic renal disease CKD (chronic kidney disease) DM2 (diabetes mellitus, type 2) Generalized anxiety disorder GERD (gastroesophageal reflux disease) HLD (hyperlipidemia) Hypertensive emergency Hypertensive urgency, malignant Hypothyroid Hypothyroidism Hypothyroidism Malignant hypertension Nausea & vomiting Palpitation Post traumatic stress disorder (PTSD) Psychiatric care Pulmonary embolism Surgical History H/O angioplasty H/O esophagogastroduodenoscopy (08/12/20) H/O rectal polypectomy H/O total thyroidectomy History of appendectomy History of back surgery History of bilateral oophorectomy 2011 History of colonoscopy with polypectomy (08/12/20) History of spinal fusion 10/01/2013- C5-6, ACDFF Dr. Villanueva History of suburethral sling procedure anterior colporrhapy augmentd with porcine graft, cystoscopy performed on 03/08/[address] Haley History of total hysterectomy 2000 Hx of cholecystectomy Status post hemilaminotomy 01/06/2012, right L5-S1, disectomy and foraminotomy per Dr. Villanueva Family History Mother Diabetes Pancreatic cancer Ovarian cancer Father Diabetes Hypertension Stroke COPD (chronic obstructive pulmonary disease) Grandfather Hypertension maternal Heart disease maternal Grandmother Colon cancer maternal Social History Smoking and tobacco/nicotine status: never used tobacco/nicotine Second hand smoke exposure: Yes Alcohol intake: never Substance/Drug Use: never Additional social history: well balanced diet Caregiver/support person: No Lives independently: Yes Household members: spouse Housing: House Marital status: Number of children: 8 Highest education level completed: GED or Equivalent service: No Current occupational status: unemployed Physical Exam Const: COMMON NORMALS: no acute distress, patient oriented x3 and healthy appearing HENMT: COMMON NORMALS: normocephalic and atraumatic HEAD & SCALP: normocephalic and atraumatic Eye: COMMON NORMALS: Equal, round and reactive pupils present and EOMs intact bilaterally PUPIL: Yes Equal, round and reactive pupils present Neck/C-Spine: COMMON NORMALS: full ROM and supple Chest: COMMONS NORMALS: normal inspection of the chest and normal palpation of entire chest wall Resp: COMMON NORMALS: normal respiratory effort, No retractions, No use of accessory muscles and clear to auscultation bilaterally AUSCULTATION: clear to auscultation bilaterally Cardio: COMMON NORMALS: regular rate, regular rhythm and No murmurs present (Cardio) RATE: regular rate RHYTHM: regular rhythm GI: COMMON NORMALS: Normal to inspection, nondistended, normoactive bowel sounds present, Soft to palpation, non-tender and no masses PALPATION: Yes Soft to palpation Extremity: COMMON NORMALS: normal to inspection and full ROM Neuro: COMMON NORMALS: patient oriented x3, moves all extremities and no focal motor deficits Psych: COMMON NORMALS: mental status grossly normal, Normal thought process present and cooperative THOUGHT PROCESS: Normal thought process present Skin: COMMON NORMALS: no rashes or lesions noted and no wounds GENERAL SKIN EXAM: no rashes or lesions noted Course Vital Signs: Vital signs: Vital Signs Temperature 98 F 06/21/23 21:11 Pulse Rate 95 06/21/23 21:11 Respiratory Rate 15 06/21/23 21:11 Blood Pressure 148/109 06/21/23 21:11 Pulse Oximetry 96 06/21/23 21:11 Oxygen Delivery Me thod Room Air 06/21/23 20:30 MDM - Abdominal Pain Medical Decision Making Patient presents here with vomiting she also has a slight headache and chest pain her chest pain is atypical initial repeat troponin here is normal her blood pressure is improved here as well she has no signs of acute surgical abdomen no signs of bowel obstruction she feels much improved here they have been able to tolerate p.o. we will prescribe her Reglan for home she is to follow-up with PCP and return if worsening. Medical Records I reviewed the patient's medical records. Lab Data I reviewed the patient's lab results. 06/21/23 18:15 06/21/23 18:15 Labs/Radiology: Radiology Impressions Chest X-Ray 06/21/23 17:59 IMPRESSION: No acute findings. Laboratory Results WBC 8.70 10^3/uL (3.29-11.43) 06/21/23 18:15 RBC 4.80 10^6/uL (3.85-5.65) 06/21/23 18:15 Hgb 14.00 g/dL (11.27-16.99) 06/21/23 18:15 Hct 44.0 % (36-47) 06/21/23 18:15 MCV 91.7 fl (85-98) 06/21/23 18:15 MCH 29.2 pg (27-33) 06/21/23 18:15 MCHC 31.8 g/dL (30-55) 06/21/23 18:15 RDW 13.7 % (12.1-15.1) 06/21/23 18:15 Plt Count 285 10^3/cmm (157-399) 06/21/23 18:15 MPV 11.6 fL (7.4-10.4) H 06/21/23 18:15 Neut % (Auto) 69.6 % 06/21/23 18:15 Lymph % (Auto) 22.8 % 06/21/23 18:15 [place] % (Auto) 5.6 % 06/21/23 18:15 Eos % (Auto) 0.8 % 06/21/23 18:15 Baso % (Auto) 0.7 % 06/21/23 18:15 Neut # (Auto) 6.06 10^3/uL (1.8-7.7) 06/21/23 18:15 Lymph # (Auto) 2.0 10^3/uL (0.8-4.8) 06/21/23 18:15 [place] # (Auto) 0.5 10^3/uL (0.2-0.9) 06/21/23 18:15 Eos # (Auto) 0.1 10^3/uL (0.0-0.8) 06/21/23 18:15 Baso # (Auto) 0.1 10^3/uL (0.0-0.1) 06/21/23 18:15 Nucleated RBC % (auto) 0 % 06/21/23 18:15 Nucleated RBCs # 0.0 /100WBC 06/21/23 18:15 Sodium 138 mmol/L (136-145) 06/21/23 18:15 Potassium 4.0 mmol/L (3.5-5.1) 06/21/23 18:15 Chloride 100 mmol/L (98-107) 06/21/23 18:15 Carbon Dioxide 27 mmol/L (22-29) 06/21/23 18:15 Anion Gap 15.0 (5-19) 06/21/23 18:15 BUN 7 mg/dL (6-20) 06/21/23 18:15 Creatinine 1.2 mg/dL (0.5-0.9) H 06/21/23 18:15 GFR Calculation 48.6 mL/min (90-130) L 06/21/23 18:15 Glucose 121 mg/dL (65-115) H 06/21/23 18:15 Calculated Osmolality 285 mOsm/kg (285-295) 06/21/23 18:15 Calcium 9.6 mg/dL (8.5-10.5) 06/21/23 18:15 Total Bilirubin 0.5 mg/dL (0.15-1.2) 06/21/23 18:15 AST 11 U/L (0-32) 06/21/23 18:15 ALT 8 U/L (0-33) 06/21/23 18:15 Alkaline Phosphatase 50 U/L (35-105) 06/21/23 18:15 Troponin T Baseline < 6 ng/L (0-10) 06/21/23 18:15 Troponin T 120 Minute 7.35 ng/L (0-10) 06/21/23 20:10 Delta Troponin T 1.56263 ABS# (0-10) 06/21/23 20:10 Total Protein 8.1 g/dL (6.6-8.7) 06/21/23 18:15 Albumin 5.0 g/dL (3.5-5.2) 06/21/23 18:15 Globulin 3.1 g/dL (1.3-4.6) 06/21/23 18:15 Lipase 41 U/L (13-60) 06/21/23 18:15 Urine Color Yellow (Yellow) 06/21/23 19:19 Urine Appearance Sl hazy (CLEAR) A 06/21/23 19:19 Urine pH 5 (5-7) 06/21/23 19:19 Ur Specific [place] 1.020 (1.005-1.030) 06/21/23 19:19 Urine Protein Trace (Negative) 06/21/23 19:19 Urine Glucose (UA) Norm (Normal) 06/21/23 19:19 Urine Ketones 1+ (Negative) H 06/21/23 19:19 Urine Blood Neg (Negative) 06/21/23 19:19 Urine Nitrate Negative (Negative) 06/21/23 19:19 Urine Bilirubin 1+ (Negative) H 06/21/23 19:19 Urine Urobilinogen 4 mg/dL (Negative) H 06/21/23 19:19 Ur Leukocyte Esterase Negative (Negative) 06/21/23 19:19 Urine RBC 0-4 /hpf (0-2) H 06/21/23 19:19 Urine WBC 0-4 /hpf (0-5) H 06/21/23 19:19 Ur Squamous Epith Cells 5-10 /hpf (0-5) H 06/21/23 19:19 Calcium Oxalate Crystal 0-4 /hpf H 06/21/23 19:19 Amorphous Sediment Not Reportable 06/21/23 19:19 Urine Bacteria 1+ /hpf (NONE) H 06/21/23 19:19 Hyaline Casts 0-4 /lpf H 06/21/23 19:19 Urine Mucus 3+ /hpf 06/21/23 19:19 All radiology interpretation(s) finalized by discharge EKG Data EKG 1: I personally reviewed and interpreted this EKG as follows: EKG interpretation date: 06/21/23 EKG interpretation time: 18:00 Interpretation: nsr hr [address] or t wave abnormalities qrs 89 qtc 383 Discharge Plan Discharge Patient Disposition: Home Clinical Impression: Vomiting, Chest pain, Hypertension Condition: Stable Prescriptions: New Reglan 10 mg tablet 10 mg PO Q6H PRN (Reason: nausea and vomiting) Qty: 20 0RF No Action hydromorphone 4 mg tablet 4 mg PO QID PRN (Reason: Pain) lithium carbonate 300 mg capsule See Rx Instructions PO .COMPLEX Qty: 90 11RF Rx Instructions: Take one tablet by mouth in the morning and two tablets by mouth at night. prazosin 2 mg capsule 4 mg PO .qhs Qty: 60 11RF (DME) pen needle, diabetic [1st Tier Unifine Pentips] 32 gauge x 5/32 needle See Rx Instructions .Route Qty: 50 0RF Rx Instructions: As directed allopurinol 300 mg tablet 300 mg PO DAILY carvedilol 25 mg tablet 75 mg PO DIRECTED Qty: 270 3RF Rx Instructions: 50mg (2 tabs) in AM and 25mg (1 tab) in PM clonidine HCl 0.3 mg tablet 0.3 mg PO TID@0800,1200,2000 Qty: 90 6RF diltiazem HCl 240 mg capsule,extended release 24hr 240 mg PO BID Qty: 180 1RF furosemide 20 mg tablet 20 mg PO DAILY Qty: 90 3RF nitroglycerin [Nitrostat] 0.4 mg tablet, sublingual 0.4 mg sublingual Q5M PRN (Reason: chest pain) Qty: 25 6RF Rx Instructions: do not exceed 3 doses per episode lamotrigine 200 mg tablet See Rx Instructions .ROUTE .COMPLEX Qty: 30 11RF Dose Instruction: TAKE 1 TABLET BY MOUTH ONCE DAILY IN THE MORNING Rx Instructions: TAKE 1 TABLET BY MOUTH ONCE DAILY IN THE MORNING levothyroxine 175 mcg tablet 175 mcg PO DAILY Qty: 30 2RF Rx Instructions: take 1 tablet by mouth once daily lurasidone 80 mg tablet 80 mg PO DAILY Qty: 30 11RF Rx Instructions: must administer with food (at least 350 calories) lorazepam 2 mg tablet See Rx Instructions PO .COMPLEX Qty: 60 5RF Rx Instructions: orally; Take one half by mouth in AM and at noon, then take one at bedtime isosorbide mononitrate 30 mg tablet extended release 24 hr 30 mg PO BID Qty: 180 3RF Rx Instructions: Use evening dose of imdur if BP> 130/80 mm Hg hydralazine 50 mg tablet 50 - 100 mg PO TID PRN (Reason: Systolic BP >180) Qty: 540 1RF Rx Instructions: May take 1-2 tabs TID PRN for systolic BP >180. Ozempic 0.25 mg or 0.5 mg(2 mg/1.5 mL) pen injector 0.5 mg SUBCUT Q7D 90 Days Qty: 5.2 2RF Rx Instructions: on sat tizanidine 4 mg tablet 4 mg PO QID@08,12,16,20 ondansetron 8 mg tablet,disintegrating 8 mg PO Q8H PRN (Reason: Nausea And Vomiting) hydrocodone-acetaminophen 5-325 mg tablet 1 - 2 tab PO .Q4-6H Qty: 40 0RF terazosin 1 mg capsule 2 mg PO BID promethazine 25 mg tablet 25 mg PO Q6H PRN (Reason: nausea and vomiting) Qty: 20 0RF Discharge Orders: Discharge ED (Routine); Ordered 06/21/23 Ordered By: James Mohan Referrals: Michelle Rico, STERILE PROC TECH [Primary Care Provider] - 1-3 days Discharge Diet: Advance as tolerated Discharge Activity: Resume usual activity Patient Instructions: Chest Pain (ED), Acute Nausea and Vomiting (ED), Hypertension (ED) Coding Level of Care Code ED College Administrator for Ingrid Lindsay
[2023-06-21 18:25] LABS: Basophils # 0.1 10^3/uL (0.0-0.1); Basophils % 0.7 %; Eosinophils # 0.1 10^3/uL (0.0-0.8); Eosinophils % 0.8 %; Lymphocytes % 22.8 %; Mean Corpuscular HGB Conc 31.8 g/dL (30-55); Mean Corpuscular Hemoglobin 29.2 pg (27-33); Mean Corpuscular Volume 91.7 fl (85-98); Mean Platelet Volume 11.6 fL (7.4-10.4); Monocytes # 0.5 10^3/uL (0.2-0.9); Monocytes % 5.6 %; Neutrophils # 6.06 10^3/uL (1.8-7.7); Neutrophils % 69.6 %; Nucleated Red Blood Cells % 0 %; Platelet Count 285 10^3/cmm (157-399); Red Cell Distribution Width 13.7 % (12.1-15.1)
[2023-06-21] MEDS: diphenhydrAMINE 50 mg/mL SDV 1mL IVP (18:26)
[2023-06-21] MEDS: sodium chloride 0.9% 1,000 ML 999 ML IV (18:26)
[2023-06-21] MEDS: metoclopramide 5 mg/mL SDV 2 mL 10 MG IVP (18:26)
[2023-06-21] MEDS: hyDRALAzine 20 mg/mL INJ 1 mL 10 MG IVP (18:27)
[2023-06-21 18:48] LABS: Troponin(5th) Baseline < 6 ng/L (0-10)
[2023-06-21 18:50] LABS: Alanine Aminotransferase 8 U/L (0-33); Alkaline Phosphatase 50 U/L (35-105); Aspartate Amino Transferase 11 U/L (0-32); Blood Urea Nitrogen 7 mg/dL (6-20); Calcium 9.6 mg/dL (8.5-10.5); Carbon Dioxide 27 mmol/L (22-29); Chloride 100 mmol/L (98-107); Globulin 3.1 g/dL (1.3-4.6); Glomerular Filtration Rate 48.6 mL/min (90-130); Glucose 121 mg/dL (65-115); Lipase 41 U/L (13-60); Osmolality Calculated 285 mOsm/kg (285-295); Sodium 138 mmol/L (136-145); Total Bilirubin 0.5 mg/dL (0.15-1.2); Total Protein 8.1 g/dL (6.6-8.7)
[2023-06-21 19:05] VITALS: BP 164/102; PULSE 115; RESP 16; O2SAT 98
[2023-06-21] MEDS: LORazepam 2 mg/mL INJ 1 mL 1 MG IVP (19:21)
[2023-06-21 19:33] VITALS: RESP 16; O2SAT 97
[2023-06-21] MEDS: morphine 4 mg/mL SDV 1 mL IVP (19:33)
[2023-06-21 19:48] LABS: Add Urine Microscopic? YES; Bilirubin Urine 1+ (Negative); Blood Urine Neg (Negative); Glucose Urine UA Norm (Normal); Ketones Urine 1+ (Negative); Leukocyte Esterase Urine Negative (Negative); Nitrate Urine Negative (Negative); Protein Urine Trace (Negative); Urine Appearance SL Hazy (CLEAR); Urine Color Yellow (Yellow); Urobilinogen Urine 4 mg/dL (Negative); pH Urine 5 (5-7)
[2023-06-21 19:52] LABS: Bacteria Urine 1+ /hpf; Mucus Urine 3+ /hpf; RBC Urine 0-4 /hpf (0-2); WBC Urine 0-4 /hpf (0-5)
[2023-06-21 19:53] LABS: Add Urine Culture? No; Calcium Oxalate Crystals Urine 0-4 /hpf; Hyaline Casts Urine 0-4 /lpf
--- NOTE | 2023-06-21 19:59 | ECG_ITS ---
[facility] Test Date: 2023-06-21 Pat Name: Nina Garcia Department: Room: Gender: Female Clammer: : 1980 Requested By: James Mohan Order Number: [id number] Dustin MD: Rodolfo Chen M.D. Measurements Intervals [place] Rate: 102 P: 63 AR: 160 QRS: 107 QRSD: 84 T: 5 QT: 327 QTc: 428 Interpretive Statements SINUS TACHYCARDIA RIGHT AXIS DEVIATION [QRS AXIS > 100] LOW QRS VOLTAGE IN PRECORDIAL LEADS [QRS DEFLECTION < 1.0 mV IN CHEST LEADS] NONSPECIFIC T-WAVE ABNORMALITY Compared to ECG 06/21/2023 18:00:19 Low QRS voltage now present T-wave abnormality now present Sinus rhythm no longer present Electronically Signed On 06-22-2023 8:03:14 CDT by Rodolfo Chen M.D. [id number]
[2023-06-21 20:00] VITALS: BP 154/103; PULSE 104; RESP 21; O2SAT 96
[2023-06-21 20:30] VITALS: BP 141/93; PULSE 92; RESP 12; O2SAT 96
[2023-06-21 20:56] LABS: Troponin 5 2HR 7.35 ng/L (0-10); Troponin 5 2HR Delta 1.35001 ABS# (0-10)
[2023-06-21 21:11] VITALS: BP 148/109; PULSE 95; RESP 15; TEMP 36.6; O2SAT 96
== END 2023-06-21 21:15 | disposition home or self-care (01) ==
PROVIDERS: Emergency Provider Emergency Medicine; PCP Nurse Practitioner Family
DX: R07.9 Chest pain, unspecified (principal); R11.11 Vomiting without nausea; Z77.22 Contact with and (suspected) exposure to environmental tobacco smoke (acute) (chronic); E11.22 Type 2 diabetes mellitus with diabetic chronic kidney disease; I12.9 Hypertensive chronic kidney disease with stage 1 through stage 4 chronic kidney disease, or unspecified chronic kidney disease; N18.9 Chronic kidney disease, unspecified; E78.5 Hyperlipidemia, unspecified; Z86.711 Personal history of pulmonary embolism
CPT/HCPCS: 71045; 80053; 81001; 83690; 84484; 85025; 93005; 96361; 96374; 96375; 99285; J0360; J1200; J2060; J2270; J2765; J7030

== ENCOUNTER 2023-07-04 12:23 | Outpatient (CLI) | payer OTHER, SELFPAY ==
[2023-07-04 13:19] LABS: Alanine Aminotransferase 23 U/L (0-33); Albumin Level 4.7 g/dL (3.5-5.2); Alkaline Phosphatase 47 U/L (35-105); Anion Gap 15.2 (5-19); Aspartate Amino Transferase 15 U/L (0-32); Blood Urea Nitrogen 12 mg/dL (6-20); Calcium 9.4 mg/dL (8.5-10.5); Carbon Dioxide 25 mmol/L (22-29); Chloride 102 mmol/L (98-107); Chol HDL Ratio 2.22 mg/dL (0.0-4.40); Cholesterol 122 mg/dL (0-200); Free T4 Free Thyroxine 1.42 ng/dL (0.82-1.77); Globulin 3.1 g/dL (1.3-4.6); Glomerular Filtration Rate 48.6 mL/min (90-130); Glucose 93 mg/dL (65-115); HDL Cholesterol 55 mg/dL (60-100); LDL Cholesterol Calculated 56 mg/dL (50-129); LDL HDL Ratio 1.02 RATIO (0.00-3.22); Osmolality Calculated 285 mOsm/kg (285-295); Potassium 4.2 mmol/L (3.5-5.1); Sodium 138 mmol/L (136-145); Thyroid Stimulating Hormone 44.91 uIU/mL (0.27-4.20); Total Bilirubin 0.4 mg/dL (0.15-1.2); Total Protein 7.8 g/dL (6.6-8.7); Triglycerides 55 mg/dL (0-150)
[2023-07-04 13:22] LABS: Estmated Average Glucose 117; Hemoglobin A1C 5.7 % (4.0-6.0)
[2023-07-04 13:40] LABS: Creatinine Urine, Random 355 mg/dL (28-217); Microalbum Creatinine Ratio Ur 6 mg/dL (0-20); Microalbumin Random Urine 2 ug/dL (0-20)
== END 2023-07-04 12:24 | disposition home or self-care (01) ==
LOC: LAB 12:23
PROVIDERS: PCP Nurse Practitioner Family; Visit Provider Internal Medicine
DX: E11.9 Type 2 diabetes mellitus without complications (principal); E78.5 Hyperlipidemia, unspecified; E03.9 Hypothyroidism, unspecified; R10.9 Unspecified abdominal pain
CPT/HCPCS: 36415; 80053; 80061; 82044; 83036; 84439; 84443

== ENCOUNTER 2023-07-31 03:31 | Emergency (ER) | payer OTHER, SELFPAY ==
[2023-07-31] VITALS (8 sets, daily range): BP systolic 138–193; BP diastolic 108–132; PULSE 79–94; RESP 18–22; TEMP 36.7; O2SAT 98–100; BMI 32.8
--- NOTE | 2023-07-31 03:49 | XRR_ITS ---
PROCEDURE INFORMATION: Exam: XR Chest Exam date and time: 07/31/2023 3:51 AM Age: 43 years old Clinical indication: Chest pressure; Prior surgery; Surgery date: 6+ months; Surgery type: Angioplasty. Thyroidectomy. Gb. Patient HX: C/O chest pain; Additional info: Cp TECHNIQUE: Imaging protocol: Radiologic exam of the chest. Views: 1 view. COMPARISON: CR (CHEST, ) 06/21/2023 6:11 PM FINDINGS: Lungs: Unremarkable. No consolidation. Pleural spaces: Unremarkable. No pleural effusion. No pneumothorax. Heart/Mediastinum: Unremarkable. No cardiomegaly. Bones/joints: Unremarkable. Organs: Absent gallbladder. XR/XR chest 1V portable [id number] IMPRESSION: No acute findings.
--- NOTE | 2023-07-31 03:51 | ECG_ITS ---
[facility] Test Date: 2023-07-31 Pat Name: Nina Garcia Department: Room: Gender: Female Associate Quality Engineer: : 1980 Requested By: Jose Esqueda Order Number: [id number] Dustin MD: Isa Hernandez M.D. Measurements Intervals [place] Rate: 86 P: 24 NV: 160 QRS: 91 QRSD: 96 T: 21 QT: 346 QTc: 416 Interpretive Statements SINUS RHYTHM BORDERLINE RIGHT AXIS DEVIATION [QRS AXIS > 90] Compared to ECG 07/31/2023 03:33:10 No significant changes Electronically Signed On 07-31-2023 21:28:40 STAMPING MILL TENDER by Isa Hernandez M.D. [id number]
[2023-07-31 04:04] LABS: Basophils # 0.1 10^3/uL (0.0-0.1); Basophils % 0.9 %; Eosinophils # 0.4 10^3/uL (0.0-0.8); Hematocrit 44.6 % (36-47); Lymphocytes # 2.9 10^3/uL (0.8-4.8); Lymphocytes % 35.6 %; Mean Corpuscular HGB Conc 31.6 g/dL (30-55); Mean Corpuscular Hemoglobin 29.3 pg (27-33); Mean Corpuscular Volume 92.5 fl (85-98); Mean Platelet Volume 11.5 fL (7.4-10.4); Monocytes # 0.5 10^3/uL (0.2-0.9); Monocytes % 6.2 %; Neutrophils # 4.17 10^3/uL (1.8-7.7); Neutrophils % 51.9 %; Nucleated Red Blood Cells % 0 %; Platelet Count 215 10^3/cmm (157-399); Red Blood Count 4.82 10^6/uL (3.85-5.65); Red Cell Distribution Width 13.2 % (12.1-15.1); White Blood Count 8.03 10^3/uL (3.29-11.43)
[2023-07-31 04:34] LABS: Troponin(5th) Baseline < 6 ng/L (0-10)
[2023-07-31 04:43] LABS: Alanine Aminotransferase 10 U/L (0-33); Albumin Level 4.8 g/dL (3.5-5.2); Alkaline Phosphatase 45 U/L (35-105); Anion Gap 11.6 (5-19); Aspartate Amino Transferase 11 U/L (0-32); Blood Urea Nitrogen 11 mg/dL (6-20); Calcium 9.6 mg/dL (8.5-10.5); Carbon Dioxide 29 mmol/L (22-29); Chloride 101 mmol/L (98-107); Globulin 3.2 g/dL (1.3-4.6); Glomerular Filtration Rate 53.7 mL/min (90-130); Glucose 96 mg/dL (65-115); Lipase 29 U/L (13-60); NT Pro B Type Natriuretic Pept 46 pg/mL (0-125); Osmolality Calculated 285 mOsm/kg (285-295); Potassium 3.6 mmol/L (3.5-5.1); Sodium 138 mmol/L (136-145); Total Bilirubin 0.4 mg/dL (0.15-1.2)
[2023-07-31] MEDS: ondansetron 2 mg/ML SDV 2 mL 8 MG IVP (04:51)
[2023-07-31] MEDS: fentaNYL 50 mcg/mL INJ 2mL 100 MCG IVP (04:55)
[2023-07-31] MEDS: nitroglycerin 1 gm/inch oint Pkt 1.5 INCH TOPICAL (04:58)
[2023-07-31] MEDS: metoprolol tartrate 1 mg/1 mL SDV 5 mL 5 MG IVP (05:00)
[2023-07-31 05:12] LABS: Add Urine Microscopic? NO; Charge for UA Resulting for Rev
[2023-07-31 05:23] LABS: Bilirubin Urine Neg (Negative); Blood Urine Neg (Negative); Glucose Urine UA Norm (Normal); Ketones Urine Negative (Negative); Leukocyte Esterase Urine Negative (Negative); Nitrate Urine Negative (Negative); Protein Urine Neg (Negative); Specific Gravity, Urine 1.005 (1.005-1.030); Urine Appearance Clear (CLEAR); Urine Color Yellow (Yellow); Urobilinogen Urine Neg (Negative); pH Urine 7 (5-7)
[2023-07-31] MEDS: lidocaine 2% viscous 15 ML, aluminum-mag hydrox-simethicon 30 ML, sucralfate oral liq 1 GM PO (05:33)
[2023-07-31] MEDS: dilTIAZem ER (24HR) 240 mg Capsule PO (05:33)
[2023-07-31] MEDS: labetalol 5 mg/mL SDV 20mL 20 MG IVP (05:35)
[2023-07-31] MEDS: hyDRALAzine 20 mg/mL INJ 1 mL 10 MG IVP (05:38)
[2023-07-31] MEDS: HYDROmorphone 1 mg/mL INJ 1 mL IVP (05:47)
--- NOTE | 2023-07-31 05:49 | ECG_ITS ---
[facility] Test Date: 2023-07-31 Pat Name: Nina Garcia Department: Room: Gender: Female Bacteriology Teacher: : 1980 Requested By: Jose Esqueda Order Number: [id number] Dustin MD: Isa Hernandez M.D. Measurements Intervals [place] Rate: 89 P: 34 RI: 148 QRS: 98 QRSD: 101 T: 1 QT: 321 QTc: 391 Interpretive Statements SINUS RHYTHM BORDERLINE RIGHT AXIS DEVIATION [QRS AXIS > 90] Compared to ECG 06/21/2023 19:50:19 Sinus tachycardia no longer present T-wave abnormality no longer present Electronically Signed On 07-31-2023 21:34:42 ENTRY LEVEL DRAFTER by Isa Hernandez M.D. [id number]
--- NOTE | 2023-07-31 06:00 | ED_ITS ---
HPI - Chest Pain 2 General: Chief Complaint: Chest Pain Stated Complaint: CP, throwing up unable to keep meds down Time Seen by Provider: 07/31/23 03:44 History of Present Illness: 43-year-old female with a history of sig nificant hypertension requiring multiple antihypertensives, thyroid disease, chronic pain requiring narcotic pain medication usage, and other problems. She has no history of coronary disease. She presents with chest discomfort radiating into her left arm and left jaw, nausea, and vomiting liquids. Symptoms have been going on for about 3 days or so. She has been afebrile. She has not been able to hold her blood pressure Medication down, so she has not taken it. She is not overly short of breath. No fever. No increased cough. She has vomited multiple times. Associated symptoms: Deny dyspnea, fever(s) or palpitations Review of Systems 2 Const: Denies: fever(s), chills or body aches Eyes: Denies: change in vision Card: Denies: chest pain or palpitations Resp: Denies: dyspnea, productive cough, non-productive cough or wheezing GI: Denies: hematochezia : Denies: difficulty voiding Skin/Breast: Denies: rash Neuro: Denies: headache(s), weakness in extremities, dizziness or confusion PFSH ED 2 PFSH: Medical History SHELTON (acute kidney injury) Bipolar 1 disorder, depressed, full remission Chest pain Chest pain at rest Chronic back pain Chronic neck and back pain Chronic renal disease CKD (chronic kidney disease) DM2 (diabetes mellitus, type 2) Generalized anxiety disorder GERD (gastroesophageal reflux disease) HLD (hyperlipidemia) Hypertensive emergency Hypertensive urgency, malignant Hypothyroid Hypothyroidism Hypothyroidism Malignant hypertension Nausea & vomiting Palpitation Post traumatic stress disorder (PTSD) Psychiatric care Pulmonary embolism Surgical History H/O angioplasty H/O esophagogastroduodenoscopy (08/12/20) H/O rectal polypectomy H/O total thyroidectomy History of appendectomy History of back surgery History of bilateral oophorectomy 2011 History of colonoscopy with polypectomy (08/12/20) History of spinal fusion 10/01/2013- C5-6, ACDFF Dr. Villanueva History of suburethral sling procedure anterior colporrhapy augmentd with porcine graft, cystoscopy performed on 03/08/[address] Haley History of total hysterectomy 2000 Hx of cholecystectomy Status post hemilaminotomy 01/06/2012, right L5-S1, disectomy and foraminotomy per Dr. Villanueva Family History Mother Diabetes Pancreatic cancer Ovarian cancer Father Diabetes Hypertension Stroke COPD (chronic obstructive pulmonary disease) Grandfather Hypertension maternal Heart disease maternal Grandmother Colon cancer maternal Social History Smoking and tobacco/nicotine status: never used tobacco/nicotine Second hand smoke exposure: Yes Alcohol intake: never Substance/Drug Use: never Additional social history: well balanced diet Caregiver/support person: No Lives independently: Yes Household members: spouse Housing: House Marital status: Number of children: 8 Highest education level completed: GED or Equivalent service: No Current occupational status: unemployed Physical Exam 2 Const: GENERAL APPEARANCE: cooperative, well developed and ill appearing (mildly) ORIENTATION/CONSCIOUSNESS: Yes oriented to person, Yes oriented to place and Yes oriented to time HENMT: COMMON NORMALS: normocephalic, external ears normal and Normal external nose present HEAD & SCALP: normocephalic; no scalp tenderness FACE & SINUS: normal facial exam NOSE: Normal external nose present and No nasal discharge present EXTERNAL EAR: Yes external ears normal MOUTH: tongue normal TEETH & GINGIVA: no abnormal tooth and associated gingiva THROAT: posterior oropharynx normal; no peritonsillar mass Eye: COMMON NORMALS: Equal, round and reactive pupils present, EOMs intact bilaterally and conjunctivae normal EYELID: eyelids normal CONJUNCTIVA: Y es conjunctivae normal PUPIL: Yes Equal, round and reactive pupils present Neck/C-Spine: COMMON NORMALS: full ROM GENERAL: No tracheal deviation C ERVICAL SPINE: Yes normal cervical lordosis and No Cervical spine tenderness Chest: COMMONS NORMALS: normal inspection of the chest CHEST: Yes tenderness Resp: COMMON NORMALS: clear to auscultation bilaterally EFFORT & INSPECTION: No tachypneic, No respiratory distress, No retractions, No uses accessory muscles and No tracheal deviation AUSCULTATION: clear to auscultation bilaterally, no rhonchi, no wheezes and lung sounds not diminished Cardio: COMMON NORMALS: regular rate and regular rhythm RATE: regular rate RHYTHM: regular rhythm HEART SOUNDS: no murmurs PERIPHERAL PULSES: r adial pulses present GI: INSPECTION: No abdominal distension AUSCULTATION: No Hyperactive bowel sounds present and No Hypoactive bowel sounds present PALPATION: No Guarding due to palpation present (GI) and No Rigid due to palpation PERCUSSION: no dullness to percussion and no tympanic to percussion : COMMON NORMALS: Yes no CVA tenderness BLADDER/KIDNEY EXAM: Yes no CVA tenderness Back/Pelvis: COMMON NORMALS: no CVA tenderness Neuro: SENSORIUM/ORIENTATION: Yes oriented to person, Yes oriented to place and Yes oriented to time Psych: COMMON NORMALS: mental status grossly normal Skin: COMMON NORMALS: no rashes or lesions noted GENERAL SKIN EXAM: no rashes or lesions noted Course 2 Vital Signs: Vital signs: Vital Signs Temperature 98.1 F 07/31/23 03:34 Pulse Rate 94 07/31/23 06:24 Respiratory Rate 18 07/31/23 06:24 Blood Pressure 138/108 07/31/23 06:24 Pulse Oximetry 99 07/31/23 06:24 Oxygen Delivery Me thod Room Air 07/31/23 05:38 MDM - Chest Pain Medical Decision Making 43-year-old female in hypertensive urgency. Headache and chest discomfort are improved following administration of pain medication, antihypertensives both IV and orally, and GI cocktail. CBC is normal. BMP is normal save a creatinine of 1.1. Lipase is normal. Liver enzymes are not remarkable. Chest x-ray shows no acute findings. Pressure is now down in the 150s systolic from over 200. She is feeling somewhat improved. She asks for a prescription for Phenergan suppositories, which we will provide. Lab Data 07/31/23 03:40 07/31/23 03:40 Radiology Impressions Chest X-Ray 07/31/23 03:49 IMPRESSION: No acute findings. Laboratory Results WBC 8.03 10^3/uL (3.29-11.43) 07/31/23 03:40 RBC 4.82 10^6/uL (3.85-5.65) 07/31/23 03:40 Hgb 14.10 g/dL (11.27-16.99) 07/31/23 03:40 Hct 44.6 % (36-47) 07/31/23 03:40 MCV 92.5 fl (85-98) 07/31/23 03:40 MCH 29.3 pg (27-33) 07/31/23 03:40 MCHC 31.6 g/dL (30-55) 07/31/23 03:40 RDW 13.2 % (12.1-15.1) 07/31/23 03:40 Plt Count 215 10^3/cmm (157-399) 07/31/23 03:40 MPV 11.5 fL (7.4-10.4) H 07/31/23 03:40 Neut % (Auto) 51.9 % 07/31/23 03:40 Lymph % (Auto) 35.6 % 07/31/23 03:40 [place] % (Auto) 6.2 % 07/31/23 03:40 Eos % (Auto) 5.0 % 07/31/23 03:40 Baso % (Auto) 0.9 % 07/31/23 03:40 Neut # (Auto) 4.17 10^3/uL (1.8-7.7) 07/31/23 03:40 Lymph # (Auto) 2.9 10^3/uL (0.8-4.8) 07/31/23 03:40 [place] # (Auto) 0.5 10^3/uL (0.2-0.9) 07/31/23 03:40 Eos # (Auto) 0.4 10^3/uL (0.0-0.8) 07/31/23 03:40 Baso # (Auto) 0.1 10^3/uL (0.0-0.1) 07/31/23 03:40 Nucleated RBC % (auto) 0 % 07/31/23 03:40 Nucleated RBCs # 0.0 /100WBC 07/31/23 03:40 Sodium 138 mmol/L (136-145) 07/31/23 03:40 Potassium 3.6 mmol/L (3.5-5.1) 07/31/23 03:40 Chloride 101 mmol/L (98-107) 07/31/23 03:40 Carbon Dioxide 29 mmol/L (22-29) 07/31/23 03:40 Anion Gap 11.6 (5-19) 07/31/23 03:40 BUN 11 mg/dL (6-20) 07/31/23 03:40 Creatinine 1.1 mg/dL (0.5-0.9) H 07/31/23 03:40 GFR Calculation 53.7 mL/min (90-130) L 07/31/23 03:40 Glucose 96 mg/dL (65-115) 07/31/23 03:40 Calculated Osmolality 285 mOsm/kg (285-295) 07/31/23 03:40 Calcium 9.6 mg/dL (8.5-10.5) 07/31/23 03:40 Total Bilirubin 0.4 mg/dL (0.15-1.2) 07/31/23 03:40 AST 11 U/L (0-32) 07/31/23 03:40 ALT 10 U/L (0-33) 07/31/23 03:40 Alkaline Phosphatase 45 U/L (35-105) 07/31/23 03:40 Troponin T Baseline < 6 ng/L (0-10) 07/31/23 03:40 Troponin T 120 Minute 6.00 ng/L (0-10) 07/31/23 05:50 Delta Troponin T 0.28074 ABS# (0-10) 07/31/23 05:50 NT-Pro-B Natriuret Pep 46 pg/mL (0-125) 07/31/23 03:40 Total Protein 8.0 g/dL (6.6-8.7) 07/31/23 03:40 Albumin 4.8 g/dL (3.5-5.2) 07/31/23 03:40 Globulin 3.2 g/dL (1.3-4.6) 07/31/23 03:40 Lipase 29 U/L (13-60) 07/31/23 03:40 Urine Color Yellow (Yellow) 07/31/23 05:00 Urine Appearance Clear (CLEAR) 07/31/23 05:00 Urine pH 7 (5-7) 07/31/23 05:00 Ur Specific [place] 1.005 (1.005-1.030) 07/31/23 05:00 Urine Protein Neg (Negative) 07/31/23 05:00 Urine Glucose (UA) Norm (Normal) 07/31/23 05:00 Urine Ketones Negative (Negative) 07/31/23 05:00 Urine Blood Neg (Negative) 07/31/23 05:00 Urine Nitrate Negative (Negative) 07/31/23 05:00 Urine Bilirubin Neg (Negative) 07/31/23 05:00 Urine Urobilinogen Neg mg/dL (Negative) 07/31/23 05:00 Ur Leukocyte Esterase Negative (Negative) 07/31/23 05:00 All radiology interpretation(s) finalized by discharge Discharge Plan Discharge Patient Disposition: Home Clinical Impression: Gastritis, Epigastric pain, Chest pain Condition: Stable Prescriptions: New promethazine 25 mg suppository 25 mg FL Q6H PRN (Reason: nausea and vomiting) Qty: 12 0RF No Action hydromorphone 4 mg tablet 4 mg PO QID PRN (Reason: Pain) prazosin 2 mg capsule 4 mg PO .qhs Qty: 60 11RF lithium carbonate 300 mg capsule See Rx Instructions PO .COMPLEX Qty: 90 11RF Rx Instructions: Take one tablet by mouth in the morning and two tablets by mouth at night. lorazepam 2 mg tablet See Rx Instructions PO .COMPLEX Qty: 60 5RF Rx Instructions: orally; Take one half by mouth in AM and at noon, then take one at bedtime Ozempic 0.25 mg or 0.5 mg(2 mg/1.5 mL) pen injector 1 mg SUBCUT Q7D Rx Instructions: on sat Ozempic 1 mg/dose (4 mg/3 mL) pen injector 1 mg SUBCUT Q7D 30 Days Qty: 3 0RF Ozempic 2 mg/dose (8 mg/3 mL) pen injector 2 mg SUBCUT Q7D 30 Days Qty: 3 0RF sucralfate 100 mg/mL suspension 10 ml PO BID 30 Days Qty: 840 0RF (DME) pen needle, diabetic [1st Tier Unifine Pentips] 32 gauge x 5/32 needle See Rx Instructions .Route Qty: 50 0RF Rx Instructions: As directed allopurinol 300 mg tablet 300 mg PO DAILY carvedilol 25 mg tablet 75 mg PO DIRECTED Qty: 270 3RF Rx Instructions: 50mg (2 tabs) in AM and 25mg (1 tab) in PM clonidine HCl 0.3 mg tablet 0.3 mg PO TID@0800,1200,2000 Qty: 90 6RF diltiazem HCl 240 mg capsule,extended release 24hr 240 mg PO BID Qty: 180 1RF furosemide 20 mg tablet 20 mg PO DAILY Qty: 90 3RF nitroglycerin [Nitrostat] 0.4 mg tablet, sublingual 0.4 mg sublingual Q5M PRN (Reason: chest pain) Qty: 25 6RF Rx Instructions: do not exceed 3 doses per episode pantoprazole [Protonix] 40 mg tablet,delayed release (DR/EC) 40 mg PO BID Qty: 84 0RF pantoprazole [Protonix] 40 mg tablet,delayed release (DR/EC) 40 mg PO BID 42 Days Qty: 84 1RF lamotrigine 200 mg tablet See Rx Instructions .ROUTE .COMPLEX Qty: 30 11RF Dose Instruction: TAKE 1 TABLET BY MOUTH ONCE DAILY IN THE MORNING Rx Instructions: TAKE 1 TABLET BY MOUTH ONCE DAILY IN THE MORNING levothyroxine 175 mcg tablet 175 mcg PO DAILY Qty: 30 2RF Rx Instructions: take 1 tablet by mouth once daily lurasidone 80 mg tablet 80 mg PO DAILY Qty: 30 11RF Rx Instructions: must administer with food (at least 350 calories) isosorbide mononitrate 30 mg tablet extended release 24 hr 30 mg PO BID Qty: 180 3RF Rx Instructions: Use evening dose of imdur if BP> 130/80 mm Hg hydralazine 50 mg tablet 50 - 100 mg PO TID PRN (Reason: Systolic BP >180) Qty: 540 1RF Rx Instructions: May take 1-2 tabs TID PRN for systolic BP >180. tizanidine 4 mg tablet 4 mg PO QID@08,12,16,20 ondansetron 8 mg tablet,disintegrating 8 mg PO Q8H PRN (Reason: Nausea And Vomiting) hydrocodone-acetaminophen 5-325 mg tablet 1 - 2 tab PO .Q4-6H Qty: 40 0RF terazosin 1 mg capsule 2 mg PO BID promethazine 25 mg tablet 25 mg PO Q6H PRN (Reason: nausea and vomiting) Qty: 20 0RF Reglan 10 mg tablet 10 mg PO Q6H PRN (Reason: nausea and vomiting) Qty: 20 0RF Discharge Orders: Discharge ED (Routine); Ordered 07/31/23 Ordered By: Jose Garcia Referrals: Michelle Rico, HOSPICE COMMUNITY LIAISON [Primary Care Provider] - 1-3 days Patient Instructions: Abdominal Pain (ED), Opioid Safety, Pain Management Activity Restrictions/Additional Instructions: Follow a clear liquid diet for the next 24 hours, then advance as tolerated. Use the suppositories you were given scheduled every 6 hours today, then as needed following this. Return for worsening pain despite treatment, vomiting liquids or medications despite treatment, other concerning symptoms. See your doctor this week. Coding Level of Care Code ED Hedis Abstractor for Ingrid Lindsay
[2023-07-31 06:25] LABS: Troponin 5 2HR Delta 0.00001 ABS# (0-10)
== END 2023-07-31 06:23 | disposition home or self-care (01) ==
PROVIDERS: Emergency Provider Emergency Medicine; PCP Nurse Practitioner Family
DX: K29.70 Gastritis, unspecified, without bleeding (principal); R07.9 Chest pain, unspecified; E11.22 Type 2 diabetes mellitus with diabetic chronic kidney disease; I12.9 Hypertensive chronic kidney disease with stage 1 through stage 4 chronic kidney disease, or unspecified chronic kidney disease; N18.9 Chronic kidney disease, unspecified; E78.5 Hyperlipidemia, unspecified; Z86.711 Personal history of pulmonary embolism; Z77.22 Contact with and (suspected) exposure to environmental tobacco smoke (acute) (chronic)
CPT/HCPCS: 36415; 71045; 80053; 81003; 83690; 83880; 84484; 85025; 93005; 96374; 96375; 99285; J0360; J1170; J2405; J3010; J3490

== ENCOUNTER 2023-08-17 05:48 | Day surgery (SDC) | payer OTHER, SELFPAY ==
[2023-08-17 06:10] VITALS: BP 119/76; PULSE 100; RESP 18; TEMP 36.2; O2SAT 100; BMI 31.9
[2023-08-17] MEDS: sodium chloride 0.9% 1,000 ML 30 ML IV (06:31)
--- NOTE | 2023-08-17 06:44 | P.ANESASSM_ITS ---
Pre-Anesthetic Assessment Height/Weight: Height 1.65 m Weight 87.09 kg Temp Pulse Resp BP Pulse Ox O2 Del Method 97.2 F L 100 18 119/76 100 Room Air 08/17/23 06:10 08/17/23 06:10 08/17/23 06:10 08/17/23 06:10 08/17/23 06:10 08/17/23 06:10 Preop Diagnosis: screening Operation Date: 08/17/23 07:00 Proposed Procedures p [id number] egd [id number] colon G0121 screen colon A risk Z12.11(Not Applicable) - Genaro Mckeon MD s Colonoscopy(Not Applicable) - Genaro Mckeon MD Was Beta Jumana taken within 24 hours: N/A Was Clonidine taken within 24 hours: Yes Last intake: Intake Last Liquid Date 08/16/23 Last Liquid Time 21:30 Last Solid Date 08/14/23 Last Solid Time 19:00 Social No alcohol and No tobacco Exam alert and oriented x 3 Airway Submandibular: within normal limits Cervical ROM: within normal limits Mallampati: Class II Dentition: false History/ROS No significant history except as noted Pulmonary None reported CV/HEM Hypertension and Myocardial Infarction (unknown timing-gets chest pain when BP is high) Chronic Renal Insufficiency (stage 3) Hepatic None reported GI Gastroesophageal Reflux Disease Metabolic Diabetes Mellitus and Thyroid Disease (hypo) [facility] None reported Neuropsych Anxiety, Bipolar and Headache Anesthetic Plan ASA status: 3 Anesthesia: MAC Risk of > 500 ml blood loss (7ml/kg in children): No Medications/Allergies Home Medications Medication Instructions Recorded Confirmed Last Taken Type hydromorphone 4 mg tablet 4 mg PO QID PRN Pain 08/30/19 08/17/23 08/16/23 History ondansetron 8 mg disintegrating 8 mg PO Q8H PRN Nausea And Vomiting 12/09/21 08/17/23 08/16/23 History tablet tizanidine 4 mg tablet 4 mg PO QID@08,12,16,20 12/09/21 08/17/23 08/16/23 History hydrocodone 5 mg-acetaminophen 325 1 - 2 tab PO .Q4-6H #40 tabs 01/01/22 08/17/23 08/16/23 Rx mg tablet pen needle, diabetic 32 gauge x #50 ea 05/28/22 08/17/2308/16/23 Rx (1st Tier Unifine Pentips) allopurinol 300 mg tablet 300 mg PO DAILY 11/25/22 08/17/23 08/16/23 History terazosin 1 mg capsule 2 mg PO BID 11/25/22 08/17/23 08/16/23 History prazosin 2 mg capsule 4 mg (2 x 2 mg) PO .qhs #60 caps 12/14/22 08/17/23 08/16/23 Rx carvedilol 25 mg tablet 75 mg (3 x 25 mg) PO DIRECTED 02/01/23 08/17/23 08/16/23 Rx #270 tabs clonidine HCl 0.3 mg tablet 0.3 mg PO TID@0800,1200,2000 #90 02/01/23 08/17/23 08/16/23 Rx tabs diltiazem HCl 240 mg 240 mg PO BID #180 caps 02/01/23 08/17/23 08/16/23 Rx capsule,extended release 24 hr furosemide 20 mg tablet 20 mg PO DAILY #90 tabs 02/01/23 08/17/23 08/16/23 Rx nitroglycerin 0.4 mg sublingual 0.4 mg sublingual Q5M PRN chest 02/01/23 08/15/23 08/12/23 Rx tablet (Nitrostat) pain #25 tabs lurasidone 80 mg tablet 80 mg PO DAILY #30 tabs 02/15/23 08/17/23 08/16/23 Rx isosorbide mononitrate 30 mg 30 mg PO BID #180 tabs 03/14/23 08/17/23 08/16/23 Rx tablet,extended release 24 hr hydralazine 50 mg tablet 50 - 100 mg (1 - 2 x 50 mg) PO TID 04/05/23 08/17/23 08/16/23 Rx PRN Systolic BP >180 #540 tabs promethazine 25 mg tablet 25 mg PO Q6H PRN nausea and 04/08/23 08/15/23 08/13/23 Rx vomiting #20 tabs metoclopramide HCl 10 mg tablet 10 mg PO Q6H PRN nausea and 06/21/23 08/15/23 2 Weeks Ago Rx (Reglan) vomiting #20 tabs ~08/01/23 lithium carbonate 300 mg capsule See Rx Instructions PO .COMPLEX 07/05/23 08/17/23 08/16/23 Rx #90 caps lorazepam 2 mg tablet See Rx Instructions PO .COMPLEX 07/05/23 08/15/23 08/17/23 Rx #60 tabs semaglutide 2 mg/dose (8 mg/3 mL) 2 mg (0.75 mL) SUBCUT Q7D 30 days 07/06/23 08/15/23 08/09/23 Rx subcutaneous pen injector (Ozempic) #3 mL pantoprazole 40 mg tablet,delayed 40 mg PO BID #84 tabs 07/20/23 08/17/23 08/16/23 Rx release (Protonix) sucralfate 100 mg/mL oral 10 ml PO BID 30 days #840 mL 07/28/23 08/17/23 08/16/23 Rx suspension promethazine 25 mg rectal 25 mg UT Q6H PRN nausea and 07/31/23 08/15/23 1 Week Ago Rx suppository vomiting #12 ea ~08/08/23 lamotrigine 200 mg tablet 200 mg PO QAM 08/15/23 08/17/23 08/16/23 History levothyroxine 175 mcg tablet 175 mcg PO DAILY 08/15/23 08/17/23 08/16/23 History Allergies Allergy/AdvReac Type Severity Reaction Status Date / Time aspirin Allergy due to BUN Verified 08/02/23 14:04 levels coconut Allergy hives Verified 08/02/23 14:04 ketorolac [From Toradol] Allergy hives Verified 08/02/23 14:04 meloxicam [From Mobic] Allergy hives Verified 08/02/23 14:04 NSAIDS (Non-Steroidal Allergy Unknown Verified 08/02/23 14:04 Anti-Inflamma Current Medications Generic Name Dose Route Start Last Admin Trade Name Freq PRN Reason Stop Dose Admin Sodium Chloride 1,000 mls @ 30 mls/hr 08/17/23 06:00 08/17/23 06:31 Sodium Chloride 0.9% IV 08/18/23 05:59 30 mls/hr .Q24H ZARINA Administration PFSH Anesthesia Medical History GERD (gastroesophageal reflux disease) Chest pain Nausea & vomiting CKD (chronic kidney disease) Hypothyroid Hypertensive urgency, malignant Pulmonary embolism Chest pain at rest Psychiatric care HLD (hyperlipidemia) DM2 (diabetes mellitus, type 2) Chronic back pain Chronic neck and back pain Post traumatic stress disorder (PTSD) Hypothyroidism Bipolar 1 disorder, depressed, full remission Hypothyroidism SHELTON (acute kidney injury) Hypertensive emergency Palpitation Malignant hypertension Chronic renal disease Generalized anxiety disorder Surgical History History of back surgery H/O esophagogastroduodenoscopy (08/12/20) H/O angioplasty History of colonoscopy with polypectomy (08/12/20) History of spinal fusion 10/01/2013- C5-6, ACDFF Dr. Villanueva H/O rectal polypectomy Status post hemilaminotomy 01/06/2012, right L5-S1, disectomy and foraminotomy per Dr. Villanueva History of suburethral sling procedure anterior colporrhapy augmentd with porcine graft, cystoscopy performed on 03/08/[address] Haley History of total hysterectomy 2000 Hx of cholecystectomy History of appendectomy History of bilateral oophorectomy 2011 H/O total thyroidectomy Family History Mother Diabetes Pancreatic cancer Ovarian cancer Father Diabetes Hypertension Stroke COPD (chronic obstructive pulmonary disease) Grandfather Hypertension maternal Heart disease maternal Grandmother Colon cancer maternal Social History Smoking and tobacco/nicotine status: never used tobacco/nicotine Second hand smoke exposure: Yes Alcohol intake: never Substance/Drug Use: never Additional social history: well balanced diet Caregiver/support person: No Lives independently: Yes Household members: spouse Housing: House Marital status: Number of children: 8 Highest education level completed: GED or Equivalent service: No Current occupational status: unemployed Data Anesthesia Cardiac Studies: Echocardiogram 12/11/21
[2023-08-17 06:50] LABS: Glucose Point of Care 99 mg/dL (70-110)
--- NOTE | 2023-08-17 06:53 | P.HPUD_ITS ---
Surgery/Procedure H&P Update DATE OF PROCEDURE: August 17, 2023 DATE H&P PERFORMED: 07/28/23 H&P UPDATE INFORMATION: I have reviewed H&P completed within last 30 days, I have examined patient prior to procedure, No changes to prior documentation and H&P is in [facility] EMR on date indicated PREOP DIAGNOSIS: screening PLANNED PROCEDURE: Operation Date: 08/17/23 07:00 Proposed Procedures p [id number] egd [id number] colon G0121 screen colon A risk Z12.11(Not Applicable) - Genaro Mckeon MD s Colonoscopy(Not Applicable) - Genaro Mckeon MD
[2023-08-17 07:46] VITALS: BP 105/76; PULSE 91; RESP 18; TEMP 36.4; O2SAT 96
[2023-08-17 07:58] VITALS: BP 104/88; PULSE 82; RESP 18; O2SAT 98
--- NOTE | 2023-08-17 13:24 | ANE.PACU2 ---
Inpatient post-anesthesia follow up: Airway intact: Yes Vital signs: Temperature 97.5 F Pulse Rate 82 Respiratory Rate 18 Blood Pressure 104/88 Pulse Oximetry 98 Oxygen Delivery Me thod Room Air Oxygen Flow Rate Fraction of Inspir ed Oxygen Hydration adequate: Yes Nausea and vomiting: No Pain level: 2 Mental status: Baseline
== END 2023-08-17 08:21 | disposition home or self-care (01) ==
PROVIDERS: PCP Nurse Practitioner Family; Visit Provider Surgery
PROC: 0DJ08ZZ Inspection of Upper Intestinal Tract, Via Natural or Artificial Opening Endoscopic (ICD-10-PCS; CPT 43235; principal; 2023-08-17 07:00)
PROC: 0DJD8ZZ Inspection of Lower Intestinal Tract, Via Natural or Artificial Opening Endoscopic (ICD-10-PCS; CPT 45378; 2023-08-17 07:00)
DX: Z12.11 Encounter for screening for malignant neoplasm of colon (principal); K63.5 Polyp of colon; K52.9 Noninfective gastroenteritis and colitis, unspecified; K29.50 Unspecified chronic gastritis without bleeding; E11.22 Type 2 diabetes mellitus with diabetic chronic kidney disease; I12.9 Hypertensive chronic kidney disease with stage 1 through stage 4 chronic kidney disease, or unspecified chronic kidney disease; N18.9 Chronic kidney disease, unspecified; I25.2 Old myocardial infarction; K21.9 Gastro-esophageal reflux disease without esophagitis; E03.9 Hypothyroidism, unspecified
CPT/HCPCS: 36416; 43239; 45380; 76937; 82962; 88305; J2704; J3490; J7030

== ENCOUNTER 2023-09-29 14:36 | Outpatient (CLI) | payer OTHER, SELFPAY ==
[2023-09-29 15:40] LABS: Free T4 Free Thyroxine 4.69 ng/dL (0.82-1.77); Thyroid Stimulating Hormone 0.26 uIU/mL (0.27-4.20)
== END 2023-09-29 14:37 | disposition home or self-care (01) ==
LOC: LAB 14:38
PROVIDERS: PCP Nurse Practitioner Family; Visit Provider Internal Medicine
DX: E03.9 Hypothyroidism, unspecified (principal)
CPT/HCPCS: 36415; 84439; 84443

== ENCOUNTER 2023-09-30 08:28 | Emergency (ER) | payer OTHER, SELFPAY ==
[2023-09-30] VITALS (9 sets, daily range): BP systolic 103–179; BP diastolic 64–127; PULSE 108–156; RESP 14–16; TEMP 36.7; O2SAT 91–99; BMI 31.4
--- NOTE | 2023-09-30 08:38 | ECG_ITS ---
[facility] Test Date: 2023-09-30 Pat Name: Nina Garcia Department: Room: Gender: Female Pulmonary Specialist: : 1980 Requested By: Giorgio Jackman Order Number: [id number] Chan MD: Rodolfo Chen M.D. Measurements Intervals [place] Rate: 145 P: 59 [place]: 124 QRS: 101 QRSD: 85 T: 19 QT: 271 QTc: 421 Interpretive Statements SINUS TACHYCARDIA, POSSIBLE ATRIAL FLUTTER RIGHT AXIS DEVIATION [QRS AXIS > 100] MINIMAL ST DEPRESSION [0.025+ mV ST DEPRESSION] Compared to ECG 07/31/2023 03:51:02 ST (T wave) deviation now present Sinus rhythm no longer present Electronically Signed On 10-01-2023 23:16:14 POSTAL MAIL CARRIER by Rodolfo Chen M.D. [id number]
--- NOTE | 2023-09-30 08:39 | W.ED.GENADLT ---
HPI - General Adult General: Chief complaint: Arrhythmia/Palpitations Stated complaint: high blood presure/ N/V/ headache DR Toure sent her Time Seen by Provider: 09/30/23 08:37 Source: patient Mode of arrival: ambulatory History of Present Illness: 43-year-old female presents emergency room directed here from Dr. Cornell's office with elevated blood pressure. Associated symptoms: Deny chest pain, dyspnea or rash Review of Systems Const: Denies: fever(s) or chills Card: Denies: chest pain Resp: Denies: dyspnea GI: Denies: abdominal pain : Denies: dysuria, urinary frequency or urinary urgency Musc: Denies: neck pain or back pain Skin/Breast: Denies: rash PFSH ED PFSH: Medical History GERD (gastroesophageal reflux disease) Chest pain Nausea & vomiting CKD (chronic kidney disease) Hypothyroid Hypertensive urgency, malignant Pulmonary embolism Chest pain at rest Psychiatric care HLD (hyperlipidemia) DM2 (diabetes mellitus, type 2) Chronic back pain Chronic neck and back pain Post traumatic stress disorder (PTSD) Hypothyroidism Bipolar 1 disorder, depressed, full remission Hypothyroidism [place] (acute kidney injury) Hypertensive emergency Palpitation Malignant hypertension Chronic renal disease Generalized anxiety disorder Surgical History History of back surgery H/O esophagogastroduodenoscopy (08/12/20) H/O angioplasty History of colonoscopy with polypectomy (08/12/20) History of spinal fusion 10/01/2013- C5-6, ACDFF Dr. Villanueva H/O rectal polypectomy Status post hemilaminotomy 01/06/2012, right L5-S1, disectomy and foraminotomy per Dr. Villanueva History of suburethral sling procedure anterior colporrhapy augmentd with porcine graft, cystoscopy performed on 03/08/[address] Haley History of total hysterectomy 2000 Hx of cholecystectomy History of appendectomy History of bilateral oophorectomy 2011 H/O total thyroidectomy Family History Mother Diabetes Pancreatic cancer Ovarian cancer Father Diabetes Hypertension Stroke COPD (chronic obstructive pulmonary disease) Grandfather Hypertension maternal Heart disease maternal Grandmother Colon cancer maternal Social History Smoking and tobacco/nicotine status: never used tobacco/nicotine Second hand smoke exposure: Yes Alcohol intake: never Substance/Drug Use: never Additional social history: well balanced diet Caregiver/support person: No Lives independently: Yes Household members: spouse Housing: House Marital status: Number of children: 8 Highest education level completed: GED or Equivalent service: No Current occupational status: unemployed Physical Exam Const: COMMON NORMALS: no acute distress GENERAL APPEARANCE: cooperative and comfortable ORIENTATION/CONSCIOUSNESS: Yes awake, Yes oriented to person, Yes oriented to place and Yes oriented to time HENMT: COMMON NORMALS: normocephalic, atraumatic and hearing grossly normal bilaterally HEAD & SCALP: normocephalic and atraumatic Resp: COMMON NORMALS: normal respiratory effort, No retractions, No use of accessory muscles and clear to auscultation bilaterally AUSCULTATION: clear to auscultation bilaterally Cardio: COMMON NORMALS: regular rate, regular rhythm and No murmurs present (Cardio) RATE: regular rate RHYTHM: regular rhythm GI: COMMON NORMALS: Soft to palpation and No hepatosplenomegaly present AUSCULTATION: Yes normoactive bowel sounds PALPATION: Yes Soft to palpation, No Tenderness to palpation present (GI), No Guarding due to palpation present (GI) and Yes No hepatosplenomegaly present Extremity: COMMON NORMALS: normal to inspection, capillary refill normal, no clubbing, cyanosis or edema, no calf tenderness and no pedal edema Neuro: SENSORIUM/ORIENTATION: Yes oriented to person, Yes oriented to place and Yes oriented to time Skin: COMMON NORMALS: no rashes or lesions noted GENERAL SKIN EXAM: no rashes or lesions noted Course Vital Signs: Vital signs: Vital Signs Temperature 98.1 F 09/30/23 08:36 Pulse Rate 113 H 09/30/23 12:00 Respiratory Rate 16 09/30/23 11:44 Blood Pressure 115/64 09/30/23 12:00 Pulse Oximetry 91 09/30/23 12:00 Oxygen Delivery Me thod Room Air 09/30/23 12:00 MDM - General Adult Medical Decision Making Blood pressure nausea vomiting improved with medications and fluids given. She is feeling quite a bit better. I suspect she had rebound hypertension and tachycardia from not being able to keep her medicines down. Her nausea vomiting have improved. She would prefer to go home. She has chronic tachycardia issues has had previous workup she is on diltiazem and very high-dose carvedilol for this. She was given her morning dose medications her blood pressure is well-controlled now resume her medications this evening as previously prescribed. She is given Phenergan to use as needed if she has persistent nausea and vomiting or recurrent. If symptoms worsen she can return to the emergency room any point follow-up with her doctor next week. Medical Records I reviewed the patient's medical records. Lab Data I reviewed the patient's lab results. 09/30/23 09:09 09/30/23 09:09 Laboratory Results WBC 11.00 10^3/uL (3.29-11.43) 09/30/23 09:09 RBC 5.11 10^6/uL (3.85-5.65) 09/30/23 09:09 Hgb 14.60 g/dL (11.27-16.99) 09/30/23 09:09 Hct 43.7 % (36-47) 09/30/23 09:09 MCV 85.5 fl (85-98) 09/30/23 09:09 MCH 28.6 pg (27-33) 09/30/23 09:09 MCHC 33.4 g/dL (30-55) 09/30/23 09:09 RDW 12.7 % (12.1-15.1) 09/30/23 09:09 Plt Count 245 10^3/cmm (157-399) 09/30/23 09:09 MPV 12.4 fL (7.4-10.4) H 09/30/23 09:09 Neut % (Auto) 63.4 % 09/30/23 09:09 Lymph % (Auto) 26.4 % 09/30/23 09:09 [place] % (Auto) 8.1 % 09/30/23 09:09 Eos % (Auto) 1.1 % 09/30/23 09:09 Baso % (Auto) 0.5 % 09/30/23 09:09 Neut # (Auto) 6.97 10^3/uL (1.8-7.7) 09/30/23 09:09 Lymph # (Auto) 2.9 10^3/uL (0.8-4.8) 09/30/23 09:09 [place] # (Auto) 0.9 10^3/uL (0.2-0.9) 09/30/23 09:09 Eos # (Auto) 0.1 10^3/uL (0.0-0.8) 09/30/23 09:09 Baso # (Auto) 0.1 10^3/uL (0.0-0.1) 09/30/23 09:09 Nucleated RBC % (auto) 0 % 09/30/23 09:09 Nucleated RBCs # 0.0 /100WBC 09/30/23 09:09 Sodium 136 mmol/L (136-145) 09/30/23 09:09 Potassium 4.2 mmol/L (3.5-5.1) 09/30/23 09:09 Chloride 98 mmol/L (98-107) 09/30/23 09:09 Carbon Dioxide 21 mmol/L (22-29) L 09/30/23 09:09 Anion Gap 21.2 (5-19) H 09/30/23 09:09 BUN 16 mg/dL (6-20) 09/30/23 09:09 Creatinine 1.2 mg/dL (0.5-0.9) H 09/30/23 09:09 GFR Calculation 48.6 mL/min (90-130) L 09/30/23 09:09 Glucose 114 mg/dL (65-115) 09/30/23 09:09 Calculated Osmolality 284 mOsm/kg (285-295) L 09/30/23 09:09 Calcium 10.1 mg/dL (8.5-10.5) 09/30/23 09:09 Total Bilirubin 0.8 mg/dL (0.15-1.2) 09/30/23 09:09 AST 20 U/L (0-32) 09/30/23 09:09 ALT 20 U/L (0-33) 09/30/23 09:09 Alkaline Phosphatase 65 U/L (35-105) 09/30/23 09:09 Total Protein 9.1 g/dL (6.6-8.7) H 09/30/23 09:09 Albumin 4.8 g/dL (3.5-5.2) 09/30/23 09:09 Globulin 4.3 g/dL (1.3-4.6) 09/30/23 09:09 Urine Color Yellow (Yellow) 09/30/23 10:42 Urine Appearance Sl hazy (CLEAR) A 09/30/23 10:42 Urine pH 5 (5-7) 09/30/23 10:42 Ur Specific [place] 1.020 (1.005-1.030) 09/30/23 10:42 Urine Protein Trace (Negative) 09/30/23 10:42 Urine Glucose (UA) Norm (Normal) 09/30/23 10:42 Urine Ketones 1+ (Negative) H 09/30/23 10:42 Urine Blood 2+ (Negative) H 09/30/23 10:42 Urine Nitrate Negative (Negative) 09/30/23 10:42 Urine Bilirubin 1+ (Negative) H 09/30/23 10:42 Urine Urobilinogen 1 mg/dL (Negative) H 09/30/23 10:42 Ur Leukocyte Esterase Negative (Negative) 09/30/23 10:42 Urine RBC 0-4 /hpf (0-2) H 09/30/23 10:42 Urine WBC 5-10 /hpf (0-5) H 09/30/23 10:42 Ur Squamous Epith Cells 5-10 /hpf (0-5) H 09/30/23 10:42 Amorphous Sediment Not Reportable 09/30/23 10:42 Urine Bacteria 4+ /hpf (NONE) H 09/30/23 10:42 All radiology interpretation(s) finalized by discharge Discharge Plan Discharge Patient Disposition: Home Clinical Impression: Resistant hypertension, Tachycardia, CKD (chronic kidney disease), Nausea & vomiting Condition: Stable Prescriptions: New promethazine 25 mg suppository 25 mg [place] Q6H PRN (Reason: nausea and vomiting) Qty: 12 0RF No Action hydromorphone 4 mg tablet 4 - 8 mg PO Q4H MDD 5 tabs PRN (Reason: Pain) lithium carbonate 300 mg capsule See Rx Instructions PO .COMPLEX Qty: 90 11RF Rx Instructions: Take one cap (300mg) by mouth in the morning and two caps (600mg) by mouth at night. lorazepam 2 mg tablet See Rx Instructions PO .COMPLEX Qty: 60 5RF Rx Instructions: Take one half tab (1mg) by mouth in AM and at noon, then take one tab (2mg) at bedtime levothyroxine 125 mcg tablet 125 mcg PO DAILY Qty: 90 0RF Rx Instructions: not started as of 09/30/23 (DME) pen needle, diabetic [1st Tier Unifine Pentips] 32 gauge x needle See Rx Instructions .Route Qty: 50 0RF Rx Instructions: As directed allopurinol 300 mg tablet 300 mg PO QAM clonidine HCl 0.3 mg tablet 0.3 mg PO TID@0800,1200,2000 Qty: 90 6RF diltiazem HCl 240 mg capsule,extended release 24hr 240 mg PO BID Qty: 180 1RF nitroglycerin [Nitrostat] 0.4 mg tablet, sublingual 0.4 mg sublingual Q5M PRN (Reason: chest pain) Qty: 25 6RF Rx Instructions: do not exceed 3 doses per episode pantoprazole [Protonix] 40 mg tablet,delayed release (DR/EC) 40 mg PO BID Qty: 84 0RF lurasidone 80 mg tablet 80 mg PO DAILY Qty: 30 11RF Rx Instructions: must administer with food (at least 350 calories) isosorbide mononitrate 30 mg tablet extended release 24 hr 30 mg PO BID Qty: 180 3RF Rx Instructions: Use evening dose of imdur if BP> 130/80 mm Hg hydralazine 50 mg tablet 50 - 100 mg PO TID PRN (Reason: Systolic BP >180) Qty: 540 1RF Rx Instructions: May take 1-2 tabs TID PRN for systolic BP >180. Ozempic 2 mg/dose (8 mg/3 mL) pen injector See Rx Instructions .ROUTE .COMPLEX Qty: 3 0RF Dose Instruction: INJECT 2MG (0.75ML) SUB-Q ONCE WEEKLY FOR 30 DAYS Rx Instructions: INJECT 2MG (0.75ML) SUB-Q ONCE WEEKLY FOR 30 DAYS (on sat) tizanidine 4 mg tablet 8 mg PO QID@08,12,16,20 ondansetron 8 mg tablet,disintegrating 8 mg PO Q8H PRN (Reason: Nausea And Vomiting) lamotrigine 200 mg tablet 200 mg PO QAM levothyroxine 175 mcg tablet 175 mcg PO QAM carvedilol 25 mg tablet See Rx Instructions .ROUTE .COMPLEX Rx Instructions: 50mg (2 tabs) in AM and 25mg (1 tab) in PM hydrocodone-acetaminophen 5-325 mg tablet 1 - 2 tab PO .Q4-6H PRN (Reason: Pain) furosemide 20 mg tablet 20 mg PO QAM terazosin 5 mg capsule 5 mg PO BID prazosin 2 mg capsule 4 mg PO BEDTIME Discharge Orders: Discharge ED (Routine); Ordered 09/30/23 Ordered By: Giorgio Newman Referrals: Michelle Rico, EMPLOYEE COMMUNICATIONS MANAGER [Primary Care Provider] - Discharge Diet: Usual diet Discharge Activity: Increase activity as tolerated Patient Instructions: Opioid Safety, Pain Management Activity Restrictions/Additional Instructions: Thank you for choosing [facility] for your healthcare needs today. Please realize this is an emergency room and that we are providing you with a medical screening exam and this may not be complete and all inclusive of all the testing and or work up that you may need to determine your ailment or severity of your illness. It is very important that you follow up as instructed or that you return to the Emergency Department should you have concerns or if your condition changes or worsens in any way. You were seen today for persistent nausea and vomiting along with tachycardia and hypertension. Suspect the tachycardia and hypertension were rebound from not being able to keep your regular morning oral medications down. Your blood pressure and heart rate improved with medications given in the emergency room as well as with some fluid given. Since you responded well to the antiemetics we can discharge home. You were given a prescription for Phenergan suppositories to use as needed. You were given your morning medications while you are in the emergency room you should take your evening dose of carvedilol clonidine diltiazem hydralazine and isosorbide as you normally would. Follow-up with your doctor early next week. Coding Level of Care Code ED Retail Planner for Ingrid Lindsay
--- NOTE | 2023-09-30 08:43 | XR_ITS ---
WS: [id number] Portable AP upright chest, 09/30/2023 Clinical Data: dyspnea/cough Comparison: Portable chest, 07/31/2023 Findings: No nodules, masses or effusions are seen. The heart is normal. The pulmonary vascularity is not increased. No pneumonia or pneumothorax is seen. Monitor leads are on the chest wall. There is a n anterior cervical disc fusion. There are clips in the right upper quadrant from a cholecystectomy. Impression: Negative chest.
[2023-09-30] MEDS: carvedilol 25 mg Tablet PO (08:54)
[2023-09-30] MEDS: labetalol 5 mg/mL SDV 20mL 10 MG IVP ×2 (08:54→11:44)
--- NOTE | 2023-09-30 09:05 | CT_ITS ---
WS: [id number] CT HEAD NONCONTRAST HISTORY: Headache nausea and vomiting TECHNIQUE: Contiguous axial imaging performed through the brain in 2.5 mm imaging. Bone and soft tiss ue windows. Sagittal and coronal reformats reviewed. All CT scans at [facility] use at least one of these dose optimization techniques: automated exposure control; mA and/or kV adjustment per pa tient size (includes targeted exams where dose is matched to clinical indication); or iterative recon struction. DLP: 1048.79 mGy.cm COMPARISON: 07/28/2022 No acute intracranial hemorrhage, midline shift or mass effect. No atrophy or prior infarcts or herniation. Ventricles: Normal size with no hydrocephalus. Paranasal sinuses: As visualized are clear. Mastoid air cells: Well pneumatized. Calvarium and scalp: Skull is intact with no soft tissue edema or swelling. IMPRESSION: Negative head CT.
[2023-09-30] MEDS: ondansetron 2 mg/ML SDV 2 mL 4 MG IVP (09:10)
[2023-09-30] MEDS: dilTIAZem ER (24HR) 240 mg Capsule PO (09:19)
[2023-09-30] MEDS: cloNIDine 0.1 mg Tablet 0.3 MG PO (09:19)
[2023-09-30 09:21] LABS: Basophils # 0.1 10^3/uL (0.0-0.1); Basophils % 0.5 %; Eosinophils # 0.1 10^3/uL (0.0-0.8); Eosinophils % 1.1 %; Hematocrit 43.7 % (36-47); Lymphocytes # 2.9 10^3/uL (0.8-4.8); Lymphocytes % 26.4 %; Mean Corpuscular HGB Conc 33.4 g/dL (30-55); Mean Corpuscular Hemoglobin 28.6 pg (27-33); Mean Corpuscular Volume 85.5 fl (85-98); Mean Platelet Volume 12.4 fL (7.4-10.4); Monocytes # 0.9 10^3/uL (0.2-0.9); Monocytes % 8.1 %; Neutrophils # 6.97 10^3/uL (1.8-7.7); Neutrophils % 63.4 %; Nucleated Red Blood Cells % 0 %; Platelet Count 245 10^3/cmm (157-399); Red Blood Count 5.11 10^6/uL (3.85-5.65); Red Cell Distribution Width 12.7 % (12.1-15.1)
[2023-09-30 09:37] LABS: Alanine Aminotransferase 20 U/L (0-33); Albumin Level 4.8 g/dL (3.5-5.2); Alkaline Phosphatase 65 U/L (35-105); Anion Gap 21.2 (5-19); Aspartate Amino Transferase 20 U/L (0-32); Blood Urea Nitrogen 16 mg/dL (6-20); Calcium 10.1 mg/dL (8.5-10.5); Carbon Dioxide 21 mmol/L (22-29); Chloride 98 mmol/L (98-107); Globulin 4.3 g/dL (1.3-4.6); Glomerular Filtration Rate 48.6 mL/min (90-130); Glucose 114 mg/dL (65-115); Osmolality Calculated 284 mOsm/kg (285-295); Potassium 4.2 mmol/L (3.5-5.1); Sodium 136 mmol/L (136-145); Total Bilirubin 0.8 mg/dL (0.15-1.2); Total Protein 9.1 g/dL (6.6-8.7)
[2023-09-30 09:41] LABS: Creatinine Clr Calc Pharmacy 64.0127
[2023-09-30] MEDS: hyDRALAzine 20 mg/mL INJ 1 mL 10 MG IVP (10:18)
[2023-09-30] MEDS: sodium chloride 0.9% 500 ML 999 ML IV (10:38)
[2023-09-30] MEDS: metoclopramide 5 mg/mL SDV 2 mL 10 MG IVP (10:40)
--- NOTE | 2023-09-30 10:52 | CT_ITS ---
WS: [id number] CT CHEST ANGIOGRAPHY WITH REFORMATS HISTORY: dyspnea/tachycardia TECHNIQUE: Contiguous axial images are obtained through the chest during arterial injection of intrav enous contrast. Images are reconstructed to evaluate the pulmonary arteries. MIP imaging also reviewe d. All CT scans at [facility] use at least one of these dose optimization techniques: automat ed exposure control; mA and/or kV adjustment per patient size (includes targeted exams where dose is matched to clinical indication); or iterative reconstruction. CONTRAST: Omnipaque 350; 100 mL IV. DLP: 451.18 mGy.cm COMPARISON: 07/22/2021 Adequate opacification of the pulmonary arteries. There are no filling defects or pulmonary emboli id entified. Normal aorta. Normal heart. No mediastinal or hilar adenopathy. No pericardial or pleural e ffusions. Lungs are clear. No RIGHT heart strain. Diffuse hepatic steatosis. No adrenal mass. Prior cholecystectomy. Stomach is moderately distended wi th fluid. IMPRESSION: 1. No pulmonary embolism. 2. No pneumonia. 3. No RIGHT heart strain. 4. Prior cholecystectomy. 5. Hepatic steatosis.
[2023-09-30] MEDS: iohexol 350 mg/mL 500 mL Btl (per mL) IV (11:24)
[2023-09-30 11:31] LABS: Add Urine Culture? Yes; Add Urine Microscopic? YES; Bacteria Urine 4+ /hpf; Bilirubin Urine 1+ (Negative); Blood Urine 2+ (Negative); Glucose Urine UA Norm (Normal); Ketones Urine 1+ (Negative); Leukocyte Esterase Urine Negative (Negative); Nitrate Urine Negative (Negative); Protein Urine Trace (Negative); RBC Urine 0-4 /hpf (0-2); Urine Appearance SL Hazy (CLEAR); Urine Color Yellow (Yellow); Urobilinogen Urine 1 mg/dL (Negative); pH Urine 5 (5-7)
[2023-09-30] MEDS: orphenadrine 30 mg/mL Inj 2 mL 60 MG IVP (11:44)
[2023-09-30] MEDS: morphine 4 mg/mL SDV 1 mL IVP (11:44)
== END 2023-09-30 13:12 | disposition home or self-care (01) ==
PROVIDERS: Emergency Provider Family Medicine; PCP Nurse Practitioner Family
DX: I12.9 Hypertensive chronic kidney disease with stage 1 through stage 4 chronic kidney disease, or unspecified chronic kidney disease (principal); E11.22 Type 2 diabetes mellitus with diabetic chronic kidney disease; N18.9 Chronic kidney disease, unspecified; I1A.0 Resistant hypertension; E78.5 Hyperlipidemia, unspecified; R00.0 Tachycardia, unspecified; R11.2 Nausea with vomiting, unspecified; Z79.85 Long-term (current) use of injectable non-insulin antidiabetic drugs
CPT/HCPCS: 70450; 71045; 71275; 80053; 81001; 85025; 87086; 93005; 96361; 96374; 96375; 96376; 99285; J0360; J2270; J2360; J2405; J2765; J3490; J7040; Q9967

== ENCOUNTER 2023-10-12 10:20 | Outpatient (CLI) | payer OTHER, SELFPAY ==
[2023-10-12 11:36] LABS: Lithium 1.1 mmol/L (0.6-1.2)
[2023-10-12 11:43] LABS: Free T4 Free Thyroxine 2.05 ng/dL (0.82-1.77)
[2023-10-17 15:49] LABS: Thyroglobulin AB <1 IU/mL (< or = 1); Thyroid Peroxidase Antobodies 1 IU/mL (<9)
[2023-10-18 15:10] LABS: TSH Receptor Binding Antibody <1.00 IU/L (< OR = 2.00)
== END 2023-10-12 10:21 | disposition home or self-care (01) ==
LOC: LAB 10:25
PROVIDERS: Absent Provider Internal Medicine; PCP Nurse Practitioner Family; Visit Provider Psychiatry & Neurology Psychiatry
DX: E11.9 Type 2 diabetes mellitus without complications (principal); Z79.899 Other long term (current) drug therapy; F31.9 Bipolar disorder, unspecified; E03.9 Hypothyroidism, unspecified
CPT/HCPCS: 36415; 80178; 83516; 84439; 86376; 86800

== ENCOUNTER 2023-10-21 13:03 | Outpatient (CLI) | payer OTHER, SELFPAY ==
[2023-10-21 14:33] LABS: Free T4 Free Thyroxine 0.65 ng/dL (0.82-1.77)
== END 2023-10-21 13:04 | disposition home or self-care (01) ==
LOC: LAB 13:03
PROVIDERS: PCP Nurse Practitioner Family; Visit Provider Internal Medicine
DX: E03.9 Hypothyroidism, unspecified (principal)
CPT/HCPCS: 36415; 84439

== ENCOUNTER 2023-10-28 11:50 | Outpatient (CLI) | payer OTHER, SELFPAY ==
[2023-10-28 13:16] LABS: Free T4 Free Thyroxine 1.39 ng/dL (0.82-1.77)
== END 2023-10-28 11:51 | disposition home or self-care (01) ==
LOC: LAB 11:53
PROVIDERS: PCP Nurse Practitioner Family; Visit Provider Internal Medicine
DX: E03.9 Hypothyroidism, unspecified (principal)
CPT/HCPCS: 36415; 84439

== ENCOUNTER 2023-11-18 09:39 | Outpatient (CLI) | payer OTHER, SELFPAY ==
--- NOTE | 2023-11-18 09:42 | MM_ITS ---
WS: [id number] Bilateral screening 3D tomosynthesis digital mammogram, 11/18/2023 Clinical Data: SCREENING Comparison: 10/25/2022, 09/11/2021, 05/24/2018. Findings: The breast parenchymal pattern shows fibroglandular tissue. No spiculated masses or clustered calcifi cations are seen. There are no secondary signs of carcinoma. Impression: 1. Negative bilateral mammogram unchanged. 2. Recommend annual screening mammograms. MM/[place] [id number] BIRADS: 1-Negative FOLLOW UP: 1 Year Follow-up The CAD mechanical and auto body car checker was used.
== END 2023-11-18 09:40 | disposition home or self-care (01) ==
LOC: RAD 09:39
PROVIDERS: PCP Nurse Practitioner Family; Visit Provider Family Medicine
DX: Z12.31 Encounter for screening mammogram for malignant neoplasm of breast (principal)
CPT/HCPCS: 77063; 77067

== ENCOUNTER 2023-12-14 00:21 | Emergency (ER) | payer OTHER, SELFPAY ==
--- NOTE | 2023-12-14 00:25 | ECG_ITS ---
[facility] Test Date: 2023-12-14 Pat Name: Nina Garcia Department: Room: Gender: Female Die Designer: : 1980 Requested By: August Coombs Order Number: [id number] Dustin MD: Trenton Delarosa M.D. Measurements Intervals [place] Rate: 148 P: 61 TX: 136 QRS: 116 QRSD: 81 T: 52 QT: 281 QTc: 442 Interpretive Statements SINUS TACHYCARDIA, POSSIBLE ATRIAL FLUTTER POSSIBLE RIGHT VENTRICULAR HYPERTROPHY [SOME/ALL OF: PROMINENT R IN V1, LATE TRANSITION, RAD, VANI, SSS] MODERATE ST DEPRESSION [0.05+ mV ST DEPRESSION] Compared to ECG 09/30/2023 08:38:27 Atrial abnormality now present Right-axis deviation no longer present ST (T wave) deviation still present Electronically Signed On 12-14-2023 15:26:31 CDT by Trenton Delarosa M.D. [email or web address]
[2023-12-14 00:27] VITALS: BP 145/108; PULSE 145; RESP 18; TEMP 36.8; O2SAT 94; BMI 31.6
--- NOTE | 2023-12-14 00:32 | XRR_ITS ---
PROCEDURE INFORMATION: Exam: XR Chest Exam date and time: 12/14/2023 12:58 AM Age: 43 years old Clinical indication: Angina; Additional info: Cxp TECHNIQUE: Imaging protocol: Radiologic exam of the chest. Views: 1 view. COMPARISON: CT angio chest PE protcl [id number] 09/30/2023 11:22 AM FINDINGS: Lungs: No consolidation. Pleural spaces: Unremarkable. No pleural effusion. No pneumothorax. Heart/Mediastinum: No cardiomegaly. Bones/joints: No acute fracture. XR/XR chest 1V portable [id number] IMPRESSION: No acute findings.
[2023-12-14 00:46] LABS: Basophils # 0.1 10^3/uL (0.0-0.1); Basophils % 0.5 %; Eosinophils # 0.1 10^3/uL (0.0-0.8); Eosinophils % 1.1 %; Hematocrit 45.6 % (36-47); Lymphocytes # 2.6 10^3/uL (0.8-4.8); Lymphocytes % 27.7 %; Mean Corpuscular HGB Conc 32.5 g/dL (30-55); Mean Corpuscular Volume 86.2 fl (85-98); Mean Platelet Volume 11.7 fL (7.4-10.4); Monocytes # 0.8 10^3/uL (0.2-0.9); Monocytes % 7.9 %; Neutrophils # 5.91 10^3/uL (1.8-7.7); Neutrophils % 62.5 %; Nucleated Red Blood Cells % 0 %; Platelet Count 301 10^3/cmm (157-399); Red Blood Count 5.29 10^6/uL (3.85-5.65); Red Cell Distribution Width 13.2 % (12.1-15.1); White Blood Count 9.46 10^3/uL (3.29-11.43)
[2023-12-14] MEDS: sodium chloride 0.9% 1,000 ML 999 ML IV (00:47)
[2023-12-14] MEDS: dilTIAZem 5 mg/mL SDV 5 mL 20 MG IVP ×2 (00:48→02:34)
[2023-12-14] MEDS: ondansetron 2 mg/ML SDV 2 mL 4 MG IVP ×2 (00:53→01:22)
[2023-12-14 01:01] LABS: INR 1.06 (0.8-1.2)
[2023-12-14 01:02] VITALS: BP 154/118; PULSE 108; RESP 15
[2023-12-14 01:07] LABS: Troponin(5th) Baseline < 6 ng/L (0-10)
[2023-12-14 01:14] LABS: Alanine Aminotransferase 32 U/L (0-33); Albumin Level 5.1 g/dL (3.5-5.2); Alkaline Phosphatase 62 U/L (35-105); Aspartate Amino Transferase 23 U/L (0-32); Blood Urea Nitrogen 9 mg/dL (6-20); Calcium 10.3 mg/dL (8.5-10.5); Carbon Dioxide 29 mmol/L (22-29); Chloride 91 mmol/L (98-107); Creatinine Clr Calc Pharmacy 55.0135; Globulin 3.6 g/dL (1.3-4.6); Glomerular Filtration Rate 40.7 mL/min (90-130); Glucose 118 mg/dL (65-115); NT Pro B Type Natriuretic Pept 112 pg/mL (0-125); Osmolality Calculated 282 mOsm/kg (285-295); Sodium 136 mmol/L (136-145); Total Bilirubin 0.7 mg/dL (0.15-1.2); Total Protein 8.7 g/dL (6.6-8.7)
[2023-12-14] MEDS: dilTIAZem 30 mg Tablet PO (01:23)
--- NOTE | 2023-12-14 01:34 | PC.NURSE ---
Addendum entered by Chrystal Bennett RN 12/14/23 04:02: Provider notified of request pain. Provider informed pt that he was not rx meds. Pt upset by this and tells me that she will just be back in here again tomorrow. Original Note: Patient asking for pain medication- states that she always gets iv pain meds and muscle relaxers when she comes in for heart rate/ bp.
[2023-12-14 02:00] VITALS: BP 148/106; PULSE 112; RESP 14; O2SAT 100
[2023-12-14] MEDS: potassium chloride ER 20 mEq Tablet 40 MEQ PO (02:12)
--- NOTE | 2023-12-14 02:35 | W.ED.CHESTPA ---
HPI - Chest Pain General: Chief Complaint: Chest Pain Stated Complaint: cp, fall, headache, left hip and left shoulder clover Time Seen by Provider: 12/14/23 00:31 History of Present Illness: 43-year-old female presents to the emergency department with complaints of chest pressure. She states she started having tachycardia between 140 and 170 but she noted on her home pulse oximetry device. Patient reports that she has a history of hypertension and states that she also is on chronic pain medications and was seen at [facility] where she sees cardiology and they changed some of her medications. She states she is seen by [facility] cardiology given her longstanding history of uncontrolled hypertension. She states her chest pain is a 4 out of 10 and states that she is had several episodes of nausea and vomiting today. Patient states she also had an accidental slip and fall today while she was trying to get out of the bathtub she states she hit her left hip and left arm at that time. She states she has been able to ambulate without difficulty and has controlled her pain with her prescribed Dilaudid and hydrocodone. She denies dizziness, diaphoresis, lightheaded feeling. Associated symptoms: Reports nausea, palpitations and vomiting Review of Systems General: Reports: 10 or more systems reviewed and unremarkable except in HPI and below Card: Reports: chest pain and palpitations; Denies: lightheadedness GI: Reports: nausea and vomiting Musc: Reports: extremity pain [facility] PFSH: Medical History GERD (gastroesophageal reflux disease) Chest pain Nausea & vomiting CKD (chronic kidney disease) Hypothyroid Hypertensive urgency, malignant Pulmonary embolism Chest pain at rest Psychiatric care HLD (hyperlipidemia) DM2 (diabetes mellitus, type 2) Chronic back pain Chronic neck and back pain Post traumatic stress disorder (PTSD) Hypothyroidism Bipolar 1 disorder, depressed, full remission Hypothyroidism [place] (acute kidney injury) Hypertensive emergency Palpitation Malignant hypertension Chronic renal disease Generalized anxiety disorder Surgical History History of back surgery H/O esophagogastroduodenoscopy (08/12/20) H/O angioplasty History of colonoscopy with polypectomy (08/12/20) History of spinal fusion 10/01/2013- C5-6, ACDFF Dr. Villanueva H/O rectal polypectomy Status post hemilaminotomy 01/06/2012, right L5-S1, disectomy and foraminotomy per Dr. Villanueva History of suburethral sling procedure anterior colporrhapy augmentd with porcine graft, cystoscopy performed on 03/08/[address] Haley History of total hysterectomy 2000 Hx of cholecystectomy History of appendectomy History of bilateral oophorectomy 2011 H/O total thyroidectomy Family History Mother Diabetes Pancreatic cancer Ovarian cancer Father Diabetes Hypertension Stroke COPD (chronic obstructive pulmonary disease) Grandfather Hypertension maternal Heart disease maternal Grandmother Colon cancer maternal Social History Smoking and tobacco/nicotine status: never used tobacco/nicotine Second hand smoke exposure: Yes Alcohol intake: never Substance/Drug Use: never Additional social history: well balanced diet Caregiver/support person: No Lives independently: Yes Household members: spouse Housing: House Marital status: Number of children: 8 Highest education level completed: GED or Equivalent service: No Current occupational status: unemployed Physical Exam Narrative: EXAM NARRATIVE: Constitutional: the patient appears well nourished and with normal development. Vital signs reviewed as documented. HENMT: Normocephalic, atraumatic. External ears normal appearance without drainage. Nose without drainage, normal appearance. Mucus membranes moist. Neck is supple, No jugular venous distension, trachea is midline, no appreciable carotid bruits. No lymphadenopathy. No meningeal signs. Flexion, extension and lateral rotation is without pain. Eyes: Pupils are equal, round, reactive to light and accommodation. No scleral icterus. Extra-ocular movement are intact. Thorax is symmetrical and with equal rise and fall with respirations. Resp: Lungs are clear to auscultation. No wheezes, rales, crackles or ronchi at present. Cardio: Sinus tachycardia at 145. Positive S1, S2. No appreciable murmurs, rubs or gallops. GI: Abdominal exam reveals normal bowel sounds to all quadrants. No organomegaly. No obvious palpable masses noted. No hepatomegally appreciated. Soft, non-tender to palpation. Extremity: Extremities are non-edematous and both femoral and pedal pulses are 2+ and equal bilaterally. Moves all extremities well, sensation in all extremities. Neuro: Alert and oriented x4, person, place, time and situation. Cranial nerves II through XII are grossly intact, there is no focal neurological deficits that I can appreciate at present. Sensation intact to all extremities. 2-point discrimination intact. Light touch intact to all extremities. Motor strength in the upper and lower extremities are equal and bilateral 5/5. Psych: Cooperative, calm, normal thought process, appropriate judgment. Skin: No lesions, rashes. No gross abnormalities noted. Back: Symmetrical, no obvious deformity, No CVA tenderness Course Vital Signs: Vital signs: Vital Signs Temperature 98.3 F 12/14/23 00:27 Pulse Rate 96 12/14/23 04:19 Respiratory Rate 16 12/14/23 04:19 Blood Pressure 146/97 12/14/23 03:45 Pulse Oximetry 99 12/14/23 04:19 Oxygen Delivery Me thod Room Air 12/14/23 03:45 MDM - Chest Pain Medical Decision Making Physical exam completed and documented I did obtain a CBC which was essentially normal, a CMP was obtained and demonstrated a potassium of 3.0 and a creatinine 1.4. I have provided IV fluid rehydration as well as p.o. potassium replacement. Patient also received Cardizem IV for her blood pressure and tachycardia and has improved. I also provided her by mouth Cardizem to help maintain and control her heart rate and blood pressure. I do have concern that the patient's uncontrolled heart rate and elevated blood pressure may be secondary to medication noncompliance. We will obtain serial cardiac enzymes and twelve-lead EKGs for evaluation. Medical Records I reviewed the patient's medical records. Lab Data I reviewed the patient's lab results. 12/14/23 00:40 12/14/23 00:40 Radiology Impressions Chest X-Ray 12/14/23 00:32 IMPRESSION: No acute findings. Laboratory Results WBC 9.46 10^3/uL (3.29-11.43) 12/14/23 00:40 RBC 5.29 10^6/uL (3.85-5.65) 12/14/23 00:40 Hgb 14.80 g/dL (11.27-16.99) 12/14/23 00:40 Hct 45.6 % (36-47) 12/14/23 00:40 MCV 86.2 fl (85-98) 12/14/23 00:40 MCH 28.0 pg (27-33) 12/14/23 00:40 MCHC 32.5 g/dL (30-55) 12/14/23 00:40 RDW 13.2 % (12.1-15.1) 12/14/23 00:40 Plt Count 301 10^3/cmm (157-399) 12/14/23 00:40 MPV 11.7 fL (7.4-10.4) H 12/14/23 00:40 Neut % (Auto) 62.5 % 12/14/23 00:40 Lymph % (Auto) 27.7 % 12/14/23 00:40 [place] % (Auto) 7.9 % 12/14/23 00:40 Eos % (Auto) 1.1 % 12/14/23 00:40 Baso % (Auto) 0.5 % 12/14/23 00:40 Neut # (Auto) 5.91 10^3/uL (1.8-7.7) 12/14/23 00:40 Lymph # (Auto) 2.6 10^3/uL (0.8-4.8) 12/14/23 00:40 [place] # (Auto) 0.8 10^3/uL (0.2-0.9) 12/14/23 00:40 Eos # (Auto) 0.1 10^3/uL (0.0-0.8) 12/14/23 00:40 Baso # (Auto) 0.1 10^3/uL (0.0-0.1) 12/14/23 00:40 Nucleated RBC % (auto) 0 % 12/14/23 00:40 Nucleated RBCs # 0.0 /100WBC 12/14/23 00:40 PT 14.20 SECONDS (12.1-14.9) 12/14/23 00:40 INR 1.06 (0.8-1.2) 12/14/23 00:40 Sodium 136 mmol/L (136-145) 12/14/23 00:40 Potassium 3.0 mmol/L (3.5-5.1) L 12/14/23 00:40 Chloride 91 mmol/L (98-107) L 12/14/23 00:40 Carbon Dioxide 29 mmol/L (22-29) 12/14/23 00:40 Anion Gap 19.0 (5-19) 12/14/23 00:40 BUN 9 mg/dL (6-20) 12/14/23 00:40 Creatinine 1.4 mg/dL (0.5-0.9) H 12/14/23 00:40 GFR Calculation 40.7 mL/min (90-130) L 12/14/23 00:40 Glucose 118 mg/dL (65-115) H 12/14/23 00:40 Calculated Osmolality 282 mOsm/kg (285-295) L 12/14/23 00:40 Calcium 10.3 mg/dL (8.5-10.5) 12/14/23 00:40 Total Bilirubin 0.7 mg/dL (0.15-1.2) 12/14/23 00:40 AST 23 U/L (0-32) 12/14/23 00:40 ALT 32 U/L (0-33) 12/14/23 00:40 Alkaline Phosphatase 62 U/L (35-105) 12/14/23 00:40 Troponin T Baseline < 6 ng/L (0-10) 12/14/23 00:40 Troponin T 120 Minute 6.00 ng/L (0-10) 12/14/23 02:15 Delta Troponin T 0.13261 ABS# (0-10) 12/14/23 02:15 NT-Pro-B Natriuret Pep 112 pg/mL (0-125) 12/14/23 00:40 Total Protein 8.7 g/dL (6.6-8.7) 12/14/23 00:40 Albumin 5.1 g/dL (3.5-5.2) 12/14/23 00:40 Globulin 3.6 g/dL (1.3-4.6) 12/14/23 00:40 Urine Color Light yellow (Yellow) 12/14/23 03:06 Urine Appearance Sl hazy (CLEAR) A 12/14/23 03:06 Urine pH 5 (5-7) 12/14/23 03:06 Ur Specific [place] 1.005 (1.005-1.030) 12/14/23 03:06 Urine Protein Neg (Negative) 12/14/23 03:06 Urine Glucose (UA) Norm (Normal) 12/14/23 03:06 Urine Ketones Negative (Negative) 12/14/23 03:06 Urine Blood Neg (Negative) 12/14/23 03:06 Urine Nitrate Negative (Negative) 12/14/23 03:06 Urine Bilirubin Neg (Negative) 12/14/23 03:06 Urine Urobilinogen Neg mg/dL (Negative) 12/14/23 03:06 Ur Leukocyte Esterase Negative (Negative) 12/14/23 03:06 Urine RBC 0-4 /hpf (0-2) H 12/14/23 03:06 Urine WBC None /hpf (0-5) 12/14/23 03:06 Ur Squamous Epith Cells 5-10 /hpf (0-5) H 12/14/23 03:06 Amorphous Sediment Not Reportable 12/14/23 03:06 Urine Bacteria Trace /hpf (NONE) 12/14/23 03:06 Urine Mucus 1+ /hpf 12/14/23 03:06 All radiology interpretation(s) finalized by discharge EKG Data EKG 1: Interpretation: Twelve-lead EKG obtained at 00 25 and reviewed at 00 25 demonstrates sinus tachycardia, ventricular rate 148, HI interval 136, QRS duration 81, QT 281, QTc 366 there is some slight ST depression in leads V4, V5 and V6. I suspect this may be demand ischemia from her tachycardia. Discharge Plan Discharge Patient Disposition: Home Clinical Impression: Hypertension, uncontrolled, Tachycardia, Atypical chest pain, Acute hypokalemia Condition: Stable Prescriptions: No Action hydromorphone 4 mg tablet 4 - 8 mg PO Q4H MDD 5 tabs PRN (Reason: Pain) lorazepam 2 mg tablet See Rx Instructions PO .COMPLEX Qty: 60 5RF Rx Instructions: Take one half tab (1mg) by mouth in AM and at noon, then take one tab (2mg) at bedtime levothyroxine 125 mcg tablet 125 mcg PO DAILY Qty: 90 0RF Rx Instructions: not started as of 09/30/23 (DME) pen needle, diabetic [1st Tier Unifine Pentips] 32 gauge x needle See Rx Instructions .Route Qty: 50 0RF Rx Instructions: As directed allopurinol 300 mg tablet 300 mg PO QAM nitroglycerin [Nitrostat] 0.4 mg tablet, sublingual 0.4 mg sublingual Q5M PRN (Reason: chest pain) Qty: 25 6RF Rx Instructions: do not exceed 3 doses per episode pantoprazole [Protonix] 40 mg tablet,delayed release (DR/EC) 40 mg PO BID Qty: 84 0RF lurasidone 80 mg tablet 80 mg PO DAILY Qty: 30 11RF Rx Instructions: must administer with food (at least 350 calories) isosorbide mononitrate 30 mg tablet extended release 24 hr 30 mg PO BID Qty: 180 3RF Rx Instructions: Use evening dose of imdur if BP> 130/80 mm Hg hydralazine 50 mg tablet 50 - 100 mg PO TID PRN (Reason: Systolic BP >180) Qty: 540 1RF Rx Instructions: May take 1-2 tabs TID PRN for systolic BP >180. lithium carbonate 150 mg capsule 150 mg PO .QHS Qty: 30 11RF lithium carbonate 300 mg capsule 300 mg PO BID Qty: 60 11RF levothyroxine 75 mcg tablet 75 mcg PO DAILY Qty: 30 2RF diltiazem HCl 240 mg capsule,extended release 24hr 240 mg PO BID Qty: 180 0RF Ozempic 2 mg/dose (8 mg/3 mL) pen injector See Rx Instructions .ROUTE .COMPLEX Qty: 3 0RF Dose Instruction: INJECT 2MG (0.75ML) SUB-Q ONCE WEEKLY(ON SATURDAYS) Rx Instructions: INJECT 2MG (0.75ML) SUB-Q ONCE WEEKLY(ON SATURDAYS) clonidine HCl 0.3 mg tablet 0.3 mg PO TID@0800,1200,2000 Qty: 90 6RF tizanidine 4 mg tablet 8 mg PO QID@08,12,16,20 ondansetron 8 mg tablet,disintegrating 8 mg PO Q8H PRN (Reason: Nausea And Vomiting) lamotrigine 200 mg tablet 200 mg PO QAM carvedilol 25 mg tablet See Rx Instructions .ROUTE .COMPLEX Rx Instructions: 50mg (2 tabs) in AM and 25mg (1 tab) in PM hydrocodone-acetaminophen 5-325 mg tablet 1 - 2 tab PO .Q4-6H PRN (Reason: Pain) furosemide 20 mg tablet 20 mg PO QAM terazosin 5 mg capsule 5 mg PO BID prazosin 2 mg capsule 4 mg PO BEDTIME promethazine 25 mg suppository 25 mg HI Q6H PRN (Reason: nausea and vomiting) Qty: 12 0RF Discharge Orders: Discharge ED (Routine); Ordered 12/14/23 Ordered By: August Coombs Referrals: Michelle Rico IMPREGNATOR AND DRIER HELPER [Primary Care Provider] - Discharge Diet: Cardiac and Low Salt Discharge Activity: Resume usual activity Patient Instructions: Opioid Safety, Pain Management Activity Restrictions/Additional Instructions: Activity Restrictions/Additional Instructions: Thank you for choosing [facility] for your healthcare needs today. Please realize that you were seen in the Emergency Department and that we are providing you with an emergency medical screening exam and this may not be a complete and all inclusive of all the testing and or medical work-up that you may need to determine your ailment or severity of your illness. It is very important that you follow-up as instructed with your Primary care provider or Specialist for additional evaluation and to discuss your medical treatment plan. Coding Level of Care Code ED Warehouse Man for Ingrid Lindsay
[2023-12-14 02:41] LABS: Troponin 5 2HR Delta 0.00001 ABS# (0-10)
[2023-12-14 03:00] VITALS: BP 192/122; PULSE 115; RESP 24; O2SAT 100
[2023-12-14 03:27] LABS: Add Urine Culture? No; Add Urine Microscopic? YES; Bacteria Urine TRACE /hpf; Bilirubin Urine Neg (Negative); Blood Urine Neg (Negative); Glucose Urine UA Norm (Normal); Ketones Urine Negative (Negative); Leukocyte Esterase Urine Negative (Negative); Mucus Urine 1+ /hpf; Nitrate Urine Negative (Negative); Protein Urine Neg (Negative); RBC Urine 0-4 /hpf (0-2); Specific Gravity, Urine 1.005 (1.005-1.030); Urine Appearance SL Hazy (CLEAR); Urine Color Light yellow (Yellow); Urobilinogen Urine Neg (Negative); pH Urine 5 (5-7)
[2023-12-14] MEDS: labetalol 5 mg/mL SDV 20mL 20 MG IVP (03:33)
[2023-12-14 03:45] VITALS: BP 146/97; PULSE 93; RESP 17; O2SAT 98
[2023-12-14 04:19] VITALS: PULSE 96; RESP 16; O2SAT 99
== END 2023-12-14 04:24 | disposition home or self-care (01) ==
PROVIDERS: Emergency Provider Internal Medicine; PCP Nurse Practitioner Family
DX: R07.89 Other chest pain (principal); R00.0 Tachycardia, unspecified; E87.6 Hypokalemia; Z79.85 Long-term (current) use of injectable non-insulin antidiabetic drugs; Z77.22 Contact with and (suspected) exposure to environmental tobacco smoke (acute) (chronic); I12.9 Hypertensive chronic kidney disease with stage 1 through stage 4 chronic kidney disease, or unspecified chronic kidney disease; E11.22 Type 2 diabetes mellitus with diabetic chronic kidney disease; N18.9 Chronic kidney disease, unspecified; E78.5 Hyperlipidemia, unspecified
CPT/HCPCS: 71045; 80053; 81001; 83880; 84484; 85025; 85610; 93005; 96361; 96374; 96375; 96376; 99285; J2405; J3490; J7030

== ENCOUNTER 2023-12-16 10:50 | Outpatient (CLI) | payer OTHER, SELFPAY ==
[2023-12-16 11:47] LABS: Anion Gap 13.1 (5-19); Blood Urea Nitrogen 14 mg/dL (6-20); Calcium 9.2 mg/dL (8.5-10.5); Carbon Dioxide 32 mmol/L (22-29); Chloride 98 mmol/L (98-107); Glomerular Filtration Rate 53.7 mL/min (90-130); Glucose 75 mg/dL (65-115); Osmolality Calculated 289 mOsm/kg (285-295); Phosphorus 3.3 mg/dL (2.5-4.5); Potassium 3.1 mmol/L (3.5-5.1); Sodium 140 mmol/L (136-145); Uric Acid 7.2 mg/dL (2.4-5.7)
[2023-12-16 12:00] LABS: Bilirubin Urine 1+ (Negative); Blood Urine 2+ (Negative); Glucose Urine UA Norm (Normal); Ketones Urine 1+ (Negative); Nitrate Urine Positive (Negative); Protein Urine 1+ (Negative); Urine Appearance Cloudy (CLEAR); Urine Color Dark Yellow (Yellow); pH Urine 5 (5-7)
[2023-12-16 12:01] LABS: Add Urine Culture? Yes; Bacteria Urine 3+ /hpf; Leukocyte Esterase Urine 2+ (Negative); Mucus Urine TRACE /hpf; RBC Urine 0-4 /hpf (0-2); Squamous Epithelial Cell Urine 15-25 /hpf (0-5); Transitional Epi Cells Urine 0-4 /hpf; Urobilinogen Urine 4 mg/dL (Negative); WBC Urine TOO NUMEROUS TO CNT /hpf (0-5)
== END 2023-12-16 10:51 | disposition home or self-care (01) ==
LOC: LAB 10:52
PROVIDERS: PCP Nurse Practitioner Family; Visit Provider Internal Medicine
DX: I12.9 Hypertensive chronic kidney disease with stage 1 through stage 4 chronic kidney disease, or unspecified chronic kidney disease (principal); N18.31 Chronic kidney disease, stage 3a; M1A.9XX0 Chronic gout, unspecified, without tophus (tophi)
CPT/HCPCS: 80048; 81001; 83735; 84100; 84550; 87077; 87086; 87186

== ENCOUNTER 2023-12-28 14:32 | Outpatient (CLI) | payer OTHER, SELFPAY ==
[2023-12-28 15:34] LABS: Bilirubin Urine 1+ (Negative); Blood Urine Neg (Negative); Glucose Urine UA Norm (Normal); Ketones Urine Negative (Negative); Leukocyte Esterase Urine Negative (Negative); Nitrate Urine Negative (Negative); Protein Urine Neg (Negative); Urine Appearance Cloudy (CLEAR); Urine Color Dark Yellow (Yellow); Urobilinogen Urine 1 mg/dL (Negative); pH Urine 5 (5-7)
[2023-12-28 15:36] LABS: Creatinine Urine, Random 285 mg/dL (28-217); Microalbum Creatinine Ratio Ur 11 mg/dL (0-20); Microalbumin Random Urine 3 ug/dL (0-20)
[2023-12-28 15:37] LABS: Add Urine Culture? No; Bacteria Urine 2+ /hpf; Mucus Urine TRACE /hpf; RBC Urine 0-4 /hpf (0-2); Transitional Epi Cells Urine 0-4 /hpf; WBC Urine 0-4 /hpf (0-5)
[2023-12-28 15:39] LABS: Alanine Aminotransferase 17 U/L (0-33); Albumin Level 4.2 g/dL (3.5-5.2); Alkaline Phosphatase 48 U/L (35-105); Blood Urea Nitrogen 11 mg/dL (6-20); Calcium 8.9 mg/dL (8.5-10.5); Carbon Dioxide 26 mmol/L (22-29); Chloride 103 mmol/L (98-107); Cholesterol 108 mg/dL (0-200); Globulin 3.4 g/dL (1.3-4.6); Glomerular Filtration Rate 53.7 mL/min (90-130); Glucose 127 mg/dL (65-115); HDL Cholesterol 47 mg/dL (60-100); LDL Cholesterol Calculated 47 mg/dL (50-129); Osmolality Calculated 285 mOsm/kg (285-295); Sodium 137 mmol/L (136-145); Thyroid Stimulating Hormone 1.82 uIU/mL (0.27-4.20); Total Bilirubin 0.3 mg/dL (0.15-1.2); Total Protein 7.6 g/dL (6.6-8.7); Triglycerides 70 mg/dL (0-150)
[2023-12-28 16:06] LABS: Anion Gap 12.3 (5-19); Aspartate Amino Transferase 22 U/L (0-32); Potassium 4.3 mmol/L (3.5-5.1)
[2023-12-28 16:11] LABS: Estmated Average Glucose 117; Hemoglobin A1C 5.7 % (4.0-6.0)
[2023-12-28 16:24] LABS: Free T4 Free Thyroxine 1.56 ng/dL (0.82-1.77)
== END 2023-12-28 14:33 | disposition home or self-care (01) ==
LOC: LAB 14:34
PROVIDERS: PCP Nurse Practitioner Family; Visit Provider Internal Medicine
DX: E11.9 Type 2 diabetes mellitus without complications (principal); E78.5 Hyperlipidemia, unspecified; E03.9 Hypothyroidism, unspecified
CPT/HCPCS: 36415; 80053; 80061; 81001; 82044; 83036; 84439; 84443

== ENCOUNTER 2024-01-28 11:36 | Emergency (ER) | payer OTHER, SELFPAY ==
[2024-01-28 11:46] VITALS: BP 70/49; PULSE 83; RESP 18; TEMP 37.1; O2SAT 99
--- NOTE | 2024-01-28 12:03 | XRR_ITS ---
PROCEDURE INFORMATION: Exam: XR Chest Exam date and time: 01/28/2024 12:45 PM Age: 43 years old Clinical indication: Cough and dyspnea; Additional info: Dyspnea/cough TECHNIQUE: Imaging protocol: Radiologic exam of the chest. Views: 1 view. COMPARISON: CR (CHEST, ) 12/14/2023 12:58 AM FINDINGS: Lungs: Lungs are clear bilaterally. Pleural spaces: No pleural effusion. No pneumothorax. Heart/Mediastinum: The cardiac silhouette and mediastinal contours are unremarkable. Bones/joints: Postsurgical changes consistent with previous fusion in the lower cervical spine. Organs: Surgical clips in the right upper quadrant consistent with a previous cholecystectomy. XR/XR chest 1V portable [id number] IMPRESSION: 1. No acute cardiopulmonary process. 2. Incidental/nonacute findings are listed in the report.
[2024-01-28] MEDS: sodium chloride 0.9% 1,000 ML 999 ML IV (12:07)
--- NOTE | 2024-01-28 12:09 | ECG_ITS ---
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 Measurements Intervals [place] Rate: 81 P: 31 VT: 152 QRS: 91 QRSD: 87 T: 74 QT: 367 QTc: 427 Interpretive Statements SINUS RHYTHM BORDERLINE RIGHT AXIS DEVIATION [QRS AXIS > 90] NONSPECIFIC T-WAVE ABNORMALITY Compared to ECG 12/14/2023 00:25:32 T-wave abnormality now present Atrial abnormality no longer present ST (T wave) deviation no longer present Electronically Signed On 01-29-2024 11:33:50 CDT by Trenton Delarosa M.D. [id number]
[2024-01-28] MEDS: ondansetron 2 mg/ML SDV 2 mL 4 MG IVP (12:10)
--- NOTE | 2024-01-28 12:25 | CTR_ITS ---
PROCEDURE INFORMATION: Exam: CT Abdomen And Pelvis With Contrast Exam date and time: 01/28/2024 12:51 PM Age: 43 years old Clinical indication: Abdominal pain; Generalized; Prior surgery; Surgery date: 6+ months; Surgery type: Gb hysto; Additional info: Llq abd pain TECHNIQUE: Imaging protocol: Computed tomography of the abdomen and pelvis with contrast. Sagittal and coronal reformatted images were created and reviewed. Radiation optimization: All CT scans at this facility use at least one of these dose optimization techniques: automated exposure control; mA and/or kV adjustment per patient size (includes targeted exams where dose is matched to clinical indication); or iterative reconstruction. Contrast material: OMNI 350; Contrast volume: 100 ml; Contrast route: INTRAVENOUS (IV); COMPARISON: CT angio chest w abd pel w con 06/08/2021 6:18 AM RADIATION DOSE METRICS: Total DLP (mGy-cm): 845.42 FINDINGS: Lungs: Visualized lungs are clear. Pleural spaces: No pleural effusion. Heart: Visualized portions of the heart are unremarkable. Liver: The liver is unremarkable. Gallbladder and bile ducts: Stable findings consistent with a previous cholecystectomy. Dilatation of the biliary ducts, not unexpected in a patient who has had a prior cholecystectomy. Pancreas: The pancreas is unremarkable. No pancreatic ductal dilatation. Spleen: The spleen is unremarkable. Adrenal glands: The right and left adrenal glands are unremarkable. Kidneys and ureters: The right and left kidneys are unremarkable. The right and left ureters are unremarkable. Stomach and bowel: Increased fecal content in the colon. .No acute abnormality in the small bowel. No acute abnormality in the stomach. Appendix: Stable changes consistent with a previous appendectomy. Intraperitoneal space: No free intraperitoneal air. No ascites. No loculated fluid collections to suggest an abscess. Vasculature: No evidence for aortic aneurysm or aortic dissection. Hepatic veins, portal veins, splenic vein, and SMV are patent. Lymph nodes: No lymphadenopathy. Urinary bladder: The bladder is unremarkable for the degree of distension. Reproductive: Stable changes consistent with a previous hysterectomy. The right and left ovaries are unremarkable. Bones/joints: No acute fracture. Soft tissues: Unremarkable. CT/CT abdomen pelvis w con* [id number] IMPRESSION: 1. Increased fecal content in the colon. 2. Incidental/nonacute findings are listed in the report.
[2024-01-28 12:44] LABS: Basophils # 0.1 10^3/uL (0.0-0.1); Basophils % 0.5 %; Eosinophils # 0.2 10^3/uL (0.0-0.8); Eosinophils % 1.6 %; Hematocrit 43.6 % (36-47); Lymphocytes # 2.5 10^3/uL (0.8-4.8); Lymphocytes % 21.9 %; Mean Corpuscular HGB Conc 32.3 g/dL (30-55); Mean Corpuscular Hemoglobin 27.6 pg (27-33); Mean Corpuscular Volume 85.3 fl (85-98); Mean Platelet Volume 11.6 fL (7.4-10.4); Monocytes # 0.6 10^3/uL (0.2-0.9); Monocytes % 5.7 %; Neutrophils # 7.82 10^3/uL (1.8-7.7); Neutrophils % 69.9 %; Nucleated Red Blood Cells % 0 %; Platelet Count 309 10^3/cmm (157-399); Red Blood Count 5.11 10^6/uL (3.85-5.65); Red Cell Distribution Width 13.2 % (12.1-15.1); White Blood Count 11.21 10^3/uL (3.29-11.43)
[2024-01-28 12:50] LABS: Alanine Aminotransferase 36 U/L (0-33); Albumin Level 3.7 g/dL (3.5-5.2); Alkaline Phosphatase 60 U/L (35-105); Aspartate Amino Transferase 21 U/L (0-32); Blood Urea Nitrogen 12 mg/dL (6-20); Calcium 8.9 mg/dL (8.5-10.5); Carbon Dioxide 19 mmol/L (22-29); Chloride 104 mmol/L (98-107); Globulin 3.4 g/dL (1.3-4.6); Glomerular Filtration Rate 48.6 mL/min (90-130); Glucose 131 mg/dL (65-115); Lipase 26 U/L (13-60); Osmolality Calculated 284 mOsm/kg (285-295); Sodium 136 mmol/L (136-145); Total Bilirubin 0.6 mg/dL (0.15-1.2); Total Protein 7.1 g/dL (6.6-8.7)
[2024-01-28 12:51] LABS: Lactic Sepsis W/Reflex 1.2 mmol/L (0.5-2.2)
[2024-01-28] MEDS: iohexol 350 mg/mL 500 mL Btl (per mL) IV (12:54)
[2024-01-28 13:08] LABS: Creatinine Clr Calc Pharmacy 62.3169
[2024-01-28 13:15] LABS: Add Urine Microscopic? YES; Bilirubin Urine 2+ (Negative); Blood Urine Neg (Negative); Glucose Urine UA Norm (Normal); Ketones Urine 1+ (Negative); Leukocyte Esterase Urine Trace (Negative); Nitrate Urine Positive (Negative); Protein Urine 1+ (Negative); Specific Gravity, Urine 1.015 (1.005-1.030); Urine Appearance Cloudy (CLEAR); Urine Color Dark yellow (Yellow); Urobilinogen Urine 8 mg/dL (Negative); pH Urine 5 (5-7)
[2024-01-28 13:16] LABS: Add Urine Culture? Yes; Bacteria Urine 3+ /hpf
[2024-01-28 13:30] VITALS: BP 77/63; PULSE 86; O2SAT 98
--- NOTE | 2024-01-28 13:30 | ED_ITS ---
HPI - Weakness 2 General: Chief complaint: Weakness Stated complaint: WEAKNESS Time Seen by Provider: 01/28/24 11:49 History of Present Illness: 43-year-old female presents emergency ro om complaining abdominal pain cramping with small amount of diarrhea. No hematochezia or melena. Mild frequency of urination. No fever sweats or chills. Previous colonoscopy did show diverticuli. PFSH ED 2 PFSH: Medical History GERD (gastroesophageal reflux disease) Chest pain Nausea & vomiting CKD (chronic kidney disease) Hypothyroid Hypertensive urgency, malignant Pulmonary embolism Chest pain at rest Psychiatric care HLD (hyperlipidemia) DM2 (diabetes mellitus, type 2) Chronic back pain Chronic neck and back pain Post traumatic stress disorder (PTSD) Hypothyroidism Bipolar 1 disorder, depressed, full remission Hypothyroidism [place] (acute kidney injury) Hypertensive emergency Palpitation Malignant hypertension Chronic renal disease Generalized anxiety disorder Surgical History History of back surgery H/O esophagogastroduodenoscopy (08/12/20) H/O angioplasty History of colonoscopy with polypectomy (08/12/20) History of spinal fusion 10/01/2013- C5-6, ACDFF Dr. Villanueva H/O rectal polypectomy Status post hemilaminotomy 01/06/2012, right L5-S1, disectomy and foraminotomy per Dr. Villanueva History of suburethral sling procedure anterior colporrhapy augmentd with porcine graft, cystoscopy performed on 03/08/[address] Haley History of total hysterectomy 2000 Hx of cholecystectomy History of appendectomy History of bilateral oophorectomy 2011 H/O total thyroidectomy Family History Mother Diabetes Pancreatic cancer Ovarian cancer Father Diabetes Hypertension Stroke COPD (chronic obstructive pulmonary disease) Grandfather Hypertension maternal Heart disease maternal Grandmother Colon cancer maternal Social History Smoking and tobacco/nicotine status: never used tobacco/nicotine Second hand smoke exposure: Yes Alcohol intake: never Substance/Drug Use: never Additional social history: well balanced diet Caregiver/support person: No Lives independently: Yes Household members: spouse Housing: House Marital status: Number of children: 8 Highest education level completed: GED or Equivalent service: No Current occupational status: unemployed Course 2 Vital Signs: Vital signs: Vital Signs Temperature 98.7 F 01/28/24 11:46 Pulse Rate 92 01/28/24 14:59 Respiratory Rate 18 01/28/24 11:46 Blood Pressure 120/85 01/28/24 14:59 Pulse Oximetry 94 01/28/24 14:59 Oxygen Delivery Me thod Room Air 01/28/24 14:00 MDM - Weakness Medical Decision Making Patient has constipation but no acute findings on the CT. I believe she is having diarrhea is because he began develop some ankle paresis. No leukocytosis does have some mild cyst cystitis. Will treat cystitis with Bactrim. She did have several bowel movements while here still is having a fair amount of abdominal cramping. Will discharge patient home lactulose to use to further relieve constipation follow-up with primary care. Medical Records I reviewed the patient's medical records. Lab Data I reviewed the patient's lab results. 01/28/24 12:25 01/28/24 12:25 Radiology Impressions Chest X-Ray 01/28/24 12:03 IMPRESSION: 1. No acute cardiopulmonary process. 2. Incidental/nonacute findings are listed in the report. Abdomen/Pelvis CT 01/28/24 12:25 IMPRESSION: 1. Increased fecal content in the colon. 2. Incidental/nonacute findings are listed in the report. Laboratory Results WBC 11.21 10^3/uL (3.29-11.43) 01/28/24 12:25 RBC 5.11 10^6/uL (3.85-5.65) 01/28/24 12:25 Hgb 14.10 g/dL (11.27-16.99) 01/28/24 12:25 Hct 43.6 % (36-47) 01/28/24 12:25 MCV 85.3 fl (85-98) 01/28/24 12:25 MCH 27.6 pg (27-33) 01/28/24 12:25 MCHC 32.3 g/dL (30-55) 01/28/24 12:25 RDW 13.2 % (12.1-15.1) 01/28/24 12:25 Plt Count 309 10^3/cmm (157-399) 01/28/24 12:25 MPV 11.6 fL (7.4-10.4) H 01/28/24 12:25 Neut % (Auto) 69.9 % 01/28/24 12:25 Lymph % (Auto) 21.9 % 01/28/24 12:25 [place] % (Auto) 5.7 % 01/28/24 12:25 Eos % (Auto) 1.6 % 01/28/24 12:25 Baso % (Auto) 0.5 % 01/28/24 12:25 Neut # (Auto) 7.82 10^3/uL (1.8-7.7) H 01/28/24 12:25 Lymph # (Auto) 2.5 10^3/uL (0.8-4.8) 01/28/24 12:25 [place] # (Auto) 0.6 10^3/uL (0.2-0.9) 01/28/24 12:25 Eos # (Auto) 0.2 10^3/uL (0.0-0.8) 01/28/24 12:25 Baso # (Auto) 0.1 10^3/uL (0.0-0.1) 01/28/24 12:25 Nucleated RBC % (auto) 0 % 01/28/24 12: Nucleated RBCs # 0.0 /100WBC 01/28/24 12:25 Sodium 136 mmol/L (136-145) 01/28/24 12:25 Potassium 4.0 mmol/L (3.5-5.1) 01/28/24 12:25 Chloride 104 mmol/L (98-107) 01/28/24 12:25 Carbon Dioxide 19 mmol/L (22-29) L 01/28/24 12:25 Anion Gap 17.0 (5-19) 01/28/24 12:25 BUN 12 mg/dL (6-20) 01/28/24 12:25 Creatinine 1.2 mg/dL (0.5-0.9) H 01/28/24 12:25 GFR Calculation 48.6 mL/min (90-130) L 01/28/24 12:25 Glucose 131 mg/dL (65-115) H 01/28/24 12:25 Calculated Osmolality 284 mOsm/kg (285-295) L 01/28/24 12:25 Lactic Acid 1.2 mmol/L (0.5-2.2) 01/28/24 12:25 Calcium 8.9 mg/dL (8.5-10.5) 01/28/24 12:25 Total Bilirubin 0.6 mg/dL (0.15-1.2) 01/28/24 12:25 AST 21 U/L (0-32) 01/28/24 12:25 ALT 36 U/L (0-33) H 01/28/24 12:25 Alkaline Phosphatase 60 U/L (35-105) 01/28/24 12:25 Total Protein 7.1 g/dL (6.6-8.7) 01/28/24 12:25 Albumin 3.7 g/dL (3.5-5.2) 01/28/24 12: Globulin 3.4 g/dL (1.3-4.6) 01/28/24 12:25 Lipase 26 U/L (13-60) 01/28/24 12:25 Urine Color Dark yellow (Yellow) 01/28/24 Unknown Urine Appearance Cloudy (CLEAR) A 01/28/24 Unknown Urine pH 5 (5-7) 01/28/24 Unknown Ur Specific [place] 1.015 (1.005-1.030) 01/28/24 Unknown Urine Protein 1+ (Negative) H 01/28/24 Unknown Urine Glucose (UA) Norm (Normal) 01/28/24 Unknown Urine Ketones 1+ (Negative) H 01/28/24 Unknown Urine Blood Neg (Negative) 01/28/24 Unknown Urine Nitrate Positive (Negative) H 01/28/24 Unknown Urine Bilirubin 2+ (Negative) H 01/28/24 Unknown Urine Urobilinogen 8 mg/dL (Negative) H 01/28/24 Unknown Ur Leukocyte Esterase Trace (Negative) H 01/28/24 Unknown Urine RBC None /hpf (0-2) 01/28/24 Unknown Urine WBC 10-15 /hpf (0-5) H 01/28/24 Unknown Ur Squamous Epith Cells 5-10 /hpf (0-5) H 01/28/24 Unknown Amorphous Sediment Not Reportable 01/28/24 Unknown Urine Bacteria 3+ /hpf (NONE) H 01/28/24 Unknown All radiology interpretation(s) finalized by discharge Discharge Plan Discharge Patient Disposition: Home Clinical Impression: Cystitis, Constipation Condition: Stable Prescriptions: New Bactrim DS 800-160 mg tablet 1 tab PO BID 7 Days Qty: 14 0RF lactulose 20 gram/30 mL solution 30 g PO Q2H 1 Days Qty: 540 0RF Rx Instructions: until desired laxative effect No Action hydromorphone 4 mg tablet 4 - 8 mg PO Q4H MDD 5 tabs PRN (Reason: Pain) (DME) pen needle, diabetic [1st Tier Unifine Pentips] 32 gauge x 5/32 needle See Rx Instructions .Route Qty: 50 0RF Rx Instructions: As directed allopurinol 300 mg tablet 300 mg PO QAM pantoprazole [Protonix] 40 mg tablet,delayed release (DR/EC) 40 mg PO BID Qty: 84 0RF spironolactone 25 mg tablet 25 mg PO BID hydrochlorothiazide 25 mg tablet 25 mg PO BID lorazepam 2 mg tablet See Rx Instructions PO .COMPLEX Qty: 60 5RF Rx Instructions: Take one half tab (1mg) by mouth in AM and at noon, then take one tab (2mg) at bedtime lurasidone 80 mg tablet 80 mg PO DAILY Qty: 30 11RF Rx Instructions: must administer with food (at least 350 calories) zolpidem [Ambien] 10 mg tablet 10 mg PO .qhs Qty: 30 0RF Rx Instructions: Take half a tab for the first 2 nights. hydralazine 50 mg tablet 50 - 100 mg PO TID PRN (Reason: Systolic BP >180) Qty: 540 1RF Rx Instructions: May take 1-2 tabs TID PRN for systolic BP >180. lithium carbonate 150 mg capsule 150 mg PO .QHS Qty: 30 11RF lithium carbonate 300 mg capsule 300 mg PO BID Qty: 60 11RF levothyroxine 75 mcg tablet 75 mcg PO DAILY Qty: 30 2RF diltiazem HCl 240 mg capsule,extended release 24hr 240 mg PO BID Qty: 180 0RF clonidine HCl 0.3 mg tablet 0.3 mg PO TID@0800,1200,2000 Qty: 90 6RF prazosin 2 mg capsule 4 mg PO BEDTIME Qty: 60 11RF lamotrigine 200 mg tablet 200 mg PO QAM Qty: 30 11RF Ozempic 2 mg/dose (8 mg/3 mL) pen injector See Rx Instructions .ROUTE .COMPLEX Qty: 3 0RF Dose Instruction: INJECT 2MG (0.75ML) SUB-Q ONCE WEEKLY(ON SATURDAYS) Rx Instructions: INJECT 2MG (0.75ML) SUB-Q ONCE WEEKLY(ON SATURDAYS) ondansetron 8 mg tablet,disintegrating 8 mg PO Q8H PRN (Reason: Nausea And Vomiting) carvedilol 25 mg tablet See Rx Instructions .ROUTE .COMPLEX Rx Instructions: 50mg (2 tabs) in AM and 25mg (1 tab) in PM hydrocodone-acetaminophen 5-325 mg tablet 1 - 2 tab PO .Q4-6H PRN (Reason: Pain) promethazine 25 mg suppository 25 mg MA Q6H PRN (Reason: nausea and vomiting) Qty: 12 0RF Discharge Orders: Discharge ED (Routine); Ordered 01/28/24 Ordered By: Giorgio Newman Referrals: Michelle Rico, PAINTER HELPER [Primary Care Provider] - Discharge Diet: Clear Liquid Discharge Activity: Increase activity as tolerated Patient Instructions: Constipation (ED), Urinary Tract Infection in Women (ED), Opioid Safety, Pain Management Activity Restrictions/Additional Instructions: Thank you for choosing [facility] for your healthcare needs today. It is very important that you follow up as instructed or that you return to the Emergency Department should you have concerns or if your condition changes or worsens in any way. You were seen today with a complaint of abdominal pain. CT and labs did not show significant intra-abdominal pathology you do have mild bladder infection for which you are given an antibiotic for. The majority of your abdominal pain is likely coming from constipation. There was significant constipation noted on the CT. Recommend lactulose 1 dose every 2 hours until adequate results achieved. Coding Level of Care Code ED Career Discovery Teacher for Ingrid Lindsay
[2024-01-28 14:00] VITALS: BP 103/66; PULSE 85; O2SAT 98
[2024-01-28 14:59] VITALS: BP 120/85; PULSE 92; O2SAT 94
== END 2024-01-28 15:01 | disposition home or self-care (01) ==
PROVIDERS: Emergency Provider Family Medicine; PCP Nurse Practitioner Family
DX: K59.00 Constipation, unspecified (principal); N30.90 Cystitis, unspecified without hematuria; Z79.85 Long-term (current) use of injectable non-insulin antidiabetic drugs; Z77.22 Contact with and (suspected) exposure to environmental tobacco smoke (acute) (chronic); I12.9 Hypertensive chronic kidney disease with stage 1 through stage 4 chronic kidney disease, or unspecified chronic kidney disease; E11.22 Type 2 diabetes mellitus with diabetic chronic kidney disease; N18.9 Chronic kidney disease, unspecified; E78.5 Hyperlipidemia, unspecified
CPT/HCPCS: 36415; 71045; 74177; 80053; 81001; 83605; 83690; 85025; 87077; 87086; 87186; 93005; 96361; 96374; 99285; J2405; J7030; Q9967

== ENCOUNTER 2024-02-21 07:46 | Outpatient (CLI) | payer OTHER, SELFPAY ==
[2024-02-21 08:36] LABS: Anion Gap 16.2 (5-19); Blood Urea Nitrogen 18 mg/dL (6-20); Calcium 9.7 mg/dL (8.5-10.5); Carbon Dioxide 30 mmol/L (22-29); Chloride 95 mmol/L (98-107); Glomerular Filtration Rate 37.4 mL/min (90-130); Glucose 90 mg/dL (65-115); Osmolality Calculated 287 mOsm/kg (285-295); Potassium 3.2 mmol/L (3.5-5.1); Sodium 138 mmol/L (136-145)
[2024-02-21 08:44] LABS: Lithium 0.3 mmol/L (0.6-1.2)
== END 2024-02-21 07:47 | disposition home or self-care (01) ==
LOC: LAB 07:50
PROVIDERS: PCP Nurse Practitioner Family; Visit Provider Psychiatry & Neurology Psychiatry
DX: Z79.899 Other long term (current) drug therapy (principal); I10 Essential (primary) hypertension
CPT/HCPCS: 36415; 80048; 80178

== ENCOUNTER 2024-03-08 16:39 | Inpatient (IN) | payer OTHER, SELFPAY ==
[2024-03-08] VITALS (52 sets, daily range): BP systolic 49–190; BP diastolic 35–122; PULSE 62–102; RESP 9–24; TEMP 36.8–36.9; O2SAT 90–100; BMI 30.9
--- NOTE | 2024-03-08 16:42 | XRR_ITS ---
PROCEDURE INFORMATION: Exam: XR Chest Exam date and time: 03/08/2024 5:29 PM Age: 44 years old Clinical indication: Cough and shortness of breath; Additional info: Dyspnea/cough TECHNIQUE: Imaging protocol: Radiologic exam of the chest. Views: 1 view. COMPARISON: CR (CHEST, ) 01/28/2024 12:45 PM FINDINGS: Lungs: Unremarkable. No consolidation. Pleural spaces: Unremarkable. No pleural effusion. No pneumothorax. Heart/Mediastinum: Unremarkable. No cardiomegaly. Bones/joints: Unremarkable. XR/XR chest 1V portable [id number] IMPRESSION: No acute findings.
--- NOTE | 2024-03-08 16:43 | ED_ITS ---
HPI - General Adult 2 General: Chief complaint: Altered Mental Status Stated complaint: hypotensive Time Seen by Provider: 03/08/24 16:41 Source: patient Mode of arrival: EMS History of Present Illness: 44-year-old female presents emergency ro om via EMS with weakness hypotension. Patient has a history of hypertension she is on multiple blood pressure medications. This morning she took her blood pressure report it was in the 120s over 70s and she took all of her medicines with the exception of hydralazine. In addition she took a 4 mg of Dilaudid which she is also prescribed and takes regularly for back and neck pain. Throughout the day she has been lightheaded dizzy and weak she has had poor urine output. Whenever she tries to stand she gets very lightheaded feels like she is going to pass out. EMS was called blood pressure in the field was reported to be 60s over 40s she was received about a liter of fluids and route despite this her blood pressure initially is 49/36 she is awake and alert answers questions. She denies any chest pain or shortness of breath she has some vague abdominal discomfort and poor appetite she denies dysuria urgency or frequency no vomiting or diarrhea Relieving factors: none Exacerbating factors: other (Standing, attempted to be upright) Associated symptoms: Reports decreased appetite, malaise, nausea and weakness; Deny chest pain, confusion, cough, diaphoresis, dyspnea, fevers/chills, headache(s), rash, palpitations, seizures, short of breath, syncope or vomiting Review of Systems 2 Const: Reports: fatigue and malaise; Denies: fever(s), chills or diaphoresis Card: Denies: chest pain, palpitations or syncope Resp: Denies: dyspnea GI: Reports: nausea and GI cramping; Denies: abdominal pain or vomiting : Denies: dysuria, urinary frequency or urinary urgency Musc: Denies: neck pain or back pain Skin/Breast: Denies: rash Neuro: Denies: headache(s) or confusion PFSH ED 2 PFSH: Medical History (Updated 03/09/24 @ 05:59 by Giorgio Newman DO) GERD (gastroesophageal reflux disease) Nausea & vomiting CKD (chronic kidney disease) Hypothyroid Hypertensive urgency, malignant Pulmonary embolism Chest pain at rest Psychiatric care HLD (hyperlipidemia) DM2 (diabetes mellitus, type 2) Chronic back pain Chronic neck and back pain Post traumatic stress disorder (PTSD) Bipolar 1 disorder, depressed, full remission Hypertensive emergency Palpitation Malignant hypertension Chronic renal disease Generalized anxiety disorder Surgical History History of back surgery H/O esophagogastroduodenoscopy (08/12/20) H/O angioplasty History of colonoscopy with polypectomy (08/12/20) History of spinal fusion 10/01/2013- C5-6, ACDFF Dr. Villanueva H/O rectal polypectomy Status post hemilaminotomy 01/06/2012, right L5-S1, disectomy and foraminotomy per Dr. Villanueva History of suburethral sling procedure anterior colporrhapy augmentd with porcine graft, cystoscopy performed on 03/08/[address] Haley History of total hysterectomy 2000 Hx of cholecystectomy History of appendectomy History of bilateral oophorectomy 2011 H/O total thyroidectomy Family History Mother Diabetes Pancreatic cancer Ovarian cancer Father Diabetes Hypertension Stroke COPD (chronic obstructive pulmonary disease) Grandfather Hypertension maternal Heart disease maternal Grandmother Colon cancer maternal Social History Smoking and tobacco/nicotine status: never used tobacco/nicotine Second hand smoke exposure: Yes Alcohol intake: never Substance/Drug Use: never Additional social history: well balanced diet Caregiver/support person: No Lives independently: Yes Household members: spouse Housing: House Marital status: Number of children: 8 Highest education level completed: GED or Equivalent service: No Current occupational status: unemployed Physical Exam 2 Const: COMMON NORMALS: no acute distress GENERAL APPEARANCE: cooperative and comfortable ORIENTATION/CONSCIOUSNESS: Yes awake, Yes oriented to person, Yes oriented to place and Yes oriented to time HENMT: COMMON NORMALS: normocephalic, atraumatic and hearing grossly normal bilaterally HEAD & SCALP: normocephalic and atraumatic Resp: COMMON NORMALS: normal respiratory effort, No retractions, No use of accessory muscles and clear to auscultation bilaterally AUSCULTATION: clear to auscultation bilaterally Cardio: COMMON NORMALS: regular rate, regular rhythm and No murmurs present (Cardio) RATE: regular rate RHYTHM: regular rhythm GI: COMMON NORMALS: Soft to palpation and No hepatosplenomegaly present A USCULTATION: Yes normoactive bowel sounds PALPATION: Yes Soft to palpation, No Tenderness to palpation present (GI), No Guarding due to palpation present (GI) and Yes No hepatosplenomegaly present Extremity: COMMON NORMALS: normal to inspection, capillary refill normal, no clubbing, cyanosis or edema, no calf tenderness and no pedal edema Neuro: SENSORIUM/ORIENTATION: Yes oriented to person, Yes oriented to place and Yes oriented to time Skin: COMMON NORMALS: no rashes or lesions noted GENERAL SKIN EXAM: no rashes or lesions noted Course 2 Vital Signs: Vital signs: Vital Signs Temperature 98.2 F 03/08/24 16:59 Pulse Rate 68 03/08/24 17:35 Respiratory Rate 18 03/08/24 17:35 Blood Pressure 114/73 03/08/24 17:35 Pulse Oximetry 95 03/08/24 17:35 Oxygen Delivery Me thod Room Air 03/08/24 16:59 MDM - General Adult Medical Decision Making Patient hypotensive likely secondary to polypharmacy. She did respond well to fluids and Levophed. Will admit to ICU discussed with hospitalist orders written Medical Records I reviewed the patient's medical records. Lab Data I reviewed the patient's lab results. 03/08/24 17:07 03/08/24 17:07 Laboratory Results WBC 6.86 10^3/uL (3.29-11.43) 03/08/24 17:07 RBC 4.04 10^6/uL (3.85-5.65) 03/08/24 17:07 Hgb 11.50 g/dL (11.27-16.99) 03/08/24 17:07 Hct 38.2 % (36-47) 03/08/24 17:07 MCV 94.6 fl (85-98) 03/08/24 17:07 MCH 28.5 pg (27-33) 03/08/24 17:07 MCHC 30.1 g/dL (30-55) 03/08/24 17:07 RDW 15.9 % (12.1-15.1) H 03/08/24 17:07 Plt Count 211 10^3/cmm (157-399) 03/08/24 17:07 MPV 12.0 fL (7.4-10.4) H 03/08/24 17:07 Neut % (Auto) 56.9 % 03/08/24 17:07 Lymph % (Auto) 33.2 % 03/08/24 17:07 [place] % (Auto) 7.3 % 03/08/24 17:07 Eos % (Auto) 1.6 % 03/08/24 17:07 Baso % (Auto) 0.6 % 03/08/24 17:07 Neut # (Auto) 3.90 10^3/uL (1.8-7.7) 03/08/24 17:07 Lymph # (Auto) 2.3 10^3/uL (0.8-4.8) 03/08/24 17:07 [place] # (Auto) 0.5 10^3/uL (0.2-0.9) 03/08/24 17:07 Eos # (Auto) 0.1 10^3/uL (0.0-0.8) 03/08/24 17:07 Baso # (Auto) 0.0 10^3/uL (0.0-0.1) 03/08/24 17:07 Nucleated RBC % (auto) 0 % 03/08/24 17:07 Nucleated RBCs # 0.0 /100WBC 03/08/24 17:07 Sodium 138 mmol/L (136-145) 03/08/24 17:07 Potassium 4.1 mmol/L (3.5-5.1) 03/08/24 17:07 Chloride 107 mmol/L (98-107) 03/08/24 17:07 Carbon Dioxide 24 mmol/L (22-29) 03/08/24 17:07 Anion Gap 11.1 (5-19) 03/08/24 17:07 BUN 11 mg/dL (6-20) 03/08/24 17:07 Creatinine 2.0 mg/dL (0.5-0.9) H 03/08/24 17:07 GFR Calculation 26.8 mL/min (90-130) L 03/08/24 17:07 Glucose 106 mg/dL (65-115) 03/08/24 17:07 Calculated Osmolality 286 mOsm/kg (285-295) 03/08/24 17:07 Lactic Acid 1.2 mmol/L (0.5-2.2) 03/08/24 17:07 Calcium 8.3 mg/dL (8.5-10.5) L 03/08/24 17:07 Total Bilirubin 0.5 mg/dL (0.15-1.2) 03/08/24 17:07 AST 13 U/L (0-32) 03/08/24 17:07 ALT 10 U/L (0-33) 03/08/24 17:07 Alkaline Phosphatase 38 U/L (35-105) 03/08/24 17:07 Creatine Kinase 27 U/L (26-192) 03/08/24 17:07 Troponin T Baseline 8 ng/L (0-10) 03/08/24 17:07 Total Protein 6.2 g/dL (6.6-8.7) L 03/08/24 17:07 Albumin 3.6 g/dL (3.5-5.2) 03/08/24 17:07 Globulin 2.6 g/dL (1.3-4.6) 03/08/24 17:07 All radiology interpretation(s) finalized by discharge Critical Care Time 2 Critical Care Time: Critical Care Time: Yes Total Critical Care Time: 40 Attestation: The high probability of a clinically significant, sudden or life threatening deterioration of the patient's cardiovascular system(s) required my full and direct attention, intervention and personal management. The critical care time is as shown. This time is in addition to time spent performing any reported procedures but includes the following: [x] Data and vital sign review and interpretation [x] Patient assessment, examination and intervention [x] Documentation [x] Medication orders and management Discharge Plan Discharge Patient Disposition: Admitted As Inpatient Admit Provider: Sully Ro Clinical Impression: Hypotension, Acute kidney injury superimposed on CKD, Polypharmacy Condition: Stable Coding Level of Care Code ED Wood Grinder for Ingrid Lindsay
--- NOTE | 2024-03-08 16:43 | ECG_ITS ---
[facility] Test Date: 2024-03-08 Pat Name: Nina Garcia Department: Room: Gender: Female Electronic Warfare Operator: : 1980 Requested By: Giorgio Jackman Order Number: [id number] Dustin MD: Reese Meraz M.D. Measurements Intervals [place] Rate: 69 P: 26 CO: 156 QRS: 95 QRSD: 87 T: 47 QT: 397 QTc: 426 Interpretive Statements SINUS RHYTHM BORDERLINE RIGHT AXIS DEVIATION [QRS AXIS > 90] Compared to ECG 01/28/2024 12:09:29 T-wave abnormality no longer present Electronically Signed On 03-08-2024 23:25:14 CDT by Reese Meraz M.D. [id number]
[2024-03-08] MEDS: norepinephrine 4 MG/250 ML BAG 30 MG IV (17:11)
[2024-03-08 17:17] LABS: Basophils % 0.6 %; Eosinophils # 0.1 10^3/uL (0.0-0.8); Eosinophils % 1.6 %; Hematocrit 38.2 % (36-47); Lymphocytes # 2.3 10^3/uL (0.8-4.8); Lymphocytes % 33.2 %; Mean Corpuscular HGB Conc 30.1 g/dL (30-55); Mean Corpuscular Hemoglobin 28.5 pg (27-33); Mean Corpuscular Volume 94.6 fl (85-98); Monocytes # 0.5 10^3/uL (0.2-0.9); Monocytes % 7.3 %; Neutrophils % 56.9 %; Nucleated Red Blood Cells % 0 %; Platelet Count 211 10^3/cmm (157-399); Red Blood Count 4.04 10^6/uL (3.85-5.65); Red Cell Distribution Width 15.9 % (12.1-15.1); White Blood Count 6.86 10^3/uL (3.29-11.43)
[2024-03-08 17:40] LABS: Lactic Sepsis W/Reflex 1.2 mmol/L (0.5-2.2); Troponin(5th) Baseline 8 ng/L (0-10)
[2024-03-08 17:43] LABS: Alanine Aminotransferase 10 U/L (0-33); Albumin Level 3.6 g/dL (3.5-5.2); Alkaline Phosphatase 38 U/L (35-105); Anion Gap 11.1 (5-19); Aspartate Amino Transferase 13 U/L (0-32); Blood Urea Nitrogen 11 mg/dL (6-20); Calcium 8.3 mg/dL (8.5-10.5); Carbon Dioxide 24 mmol/L (22-29); Chloride 107 mmol/L (98-107); Creatine Phosphokinase 27 U/L (26-192); Globulin 2.6 g/dL (1.3-4.6); Glomerular Filtration Rate 26.8 mL/min (90-130); Glucose 106 mg/dL (65-115); Osmolality Calculated 286 mOsm/kg (285-295); Potassium 4.1 mmol/L (3.5-5.1); Sodium 138 mmol/L (136-145); Total Bilirubin 0.5 mg/dL (0.15-1.2); Total Protein 6.2 g/dL (6.6-8.7)
[2024-03-08 18:13] LABS: Add Urine Microscopic? NO; Charge for UA Resulting for Rev
--- NOTE | 2024-03-08 18:17 | USCV_ITS ---
Nina Garcia Age: 44 Gender: F : 1980 Exam Date: 03/08/2024 20:24 Ordering Phys: Kervin Brar MD Technologist: ANNETTA Exam Location: [facility] [place] Indication: shock. BP: 109 / 79 HR: 79 Rhythm: Sinus Technical Quality: Adequate MEASUREMENTS (Male / Female) Normal Values 2D ECHO LV Diastolic Diameter PLAX 4.6 cm 4.2 - 5.9 / 3.9 - 5.3 cm IVS Diastolic Thickness 1.3 cm 0.6 - 1.0 / 0.6 - 0.9 cm IVS Systolic Thickness 1.8 cm LVPW Diastolic Thickness 1.1 cm 0.6 - 1.0 / 0.6 - 0.9 cm LVPW Systolic Thickness 1.3 cm LVOT Diameter 1.6 cm LV Ejection Fraction 2D Teich 66.6 % LV Ejection Fraction MOD 4C 58.9 % LV Ejection Fraction MOD 2C 63.2 % LV Ejection Fraction 2C AL 62.2 % LA Diameter 3.5 cm Aorta at Sinotubular Diameter 2.6 cm IVC Diameter 1.7 cm M-MODE LA Ao Ratio MM 1.2 AV Cusp Separation MM 1.7 cm DOPPLER AV Peak Velocity 107.0 cm/s LVOT Peak Velocity 100.0 cm/s AV Area Cont Eq vti 1.8 cm squared AV Area Cont Eq pk 1.9 cm squared MV Peak Velocity 110.0 cm/s MV Area PHT 3.4 cm squared Mitral E to A Ratio 1.3 TR Peak Velocity 219.0 cm/s TR Peak Gradient 19.2 mmHg TV Peak E Velocity 49.0 cm/s Right Atrial Pressure 3.0 mmHg Pulmonary Artery Systolic Pressu 22.2 mmHg PV Peak Velocity 84.0 cm/s FINDINGS Left Ventricle Normal left ventricular size and systolic function, EF 60%.no regional wall motion abnormalities. Right Ventricle The right ventricle is normal in size and function. Right Atrium The right atrium is normal in size. Left Atrium The left atrium is normal in size. Mitral Valve No gross abnormalities noted Aortic Valve Minimally thickened aortic valve Tricuspid Valve No gross abnormalities noted Pulmonic Valve No gross abnormalities noted Pericardium Normal pericardium without effusion. Aorta Normal ascending aorta dimension. IVC The inferior vena cava appears normal. CONCLUSIONS Normal left ventricular size and systolic function, EF 60%. No regional wall motion abnormalities. Normal cardiac chamber sizes. No gross valvular abnormalities No pericardial effusion. Technically somewhat limited study Dr Reese Meraz MD FACC (Electronically Signed) Final Date: 08 March 2024 21:41 S
--- NOTE | 2024-03-08 18:17 | CTR_ITS ---
PROCEDURE INFORMATION: Exam: CT Chest Without Contrast; Diagnostic Exam date and time: 03/08/2024 7:41 PM Age: 44 years old Clinical indication: Other: Shock TECHNIQUE: Imaging protocol: Diagnostic computed tomography of the chest without contrast. Radiation optimization: All CT scans at this facility use at least one of these dose optimization techniques: automated exposure control; mA and/or kV adjustment per patient size (includes targeted exams where dose is matched to clinical indication); or iterative reconstruction. COMPARISON: CT angio chest PE protcl [id number] 09/30/2023 11:22 AM RADIATION DOSE METRICS: Total DLP (mGy-cm): 973 FINDINGS: Lungs: Bilateral dependent atelectasis. Pleural spaces: Unremarkable. No pneumothorax. No pleural effusion. Heart: Unremarkable. No cardiomegaly. No pericardial effusion. Negative for coronary artery atherosclerotic calcifications. Lymph nodes: Unremarkable. No enlarged lymph nodes. Vasculature: Unremarkable. No aortic aneurysm. Bones/joints: Unremarkable. No acute fracture. Soft tissues: Unremarkable. PROCEDURE INFORMATION: Exam: CT Abdomen And Pelvis Without Contrast Exam date and time: 03/08/2024 7:41 PM Age: 44 years old Clinical indication: Other: Shock TECHNIQUE: Imaging protocol: Computed tomography of the abdomen and pelvis without contrast. Radiation optimization: All CT scans at this facility use at least one of these dose optimization techniques: automated exposure control; mA and/or kV adjustment per patient size (includes targeted exams where dose is matched to clinical indication); or iterative reconstruction. COMPARISON: CT abdomen pelvis w con* [id number] 01/28/2024 12:51 PM RADIATION DOSE METRICS: Total DLP (mGy-cm): 973 FINDINGS: Liver: Normal. No mass. Gallbladder and biliary ducts: Cholecystectomy. Pancreas: Normal. No ductal dilation. Spleen: Normal. No splenomegaly. Adrenal glands: Normal. No mass. Kidneys and ureters: Normal. No hydronephrosis. Stomach and bowel: Moderate constipation. Appendix: No evidence of appendicitis. Intraperitoneal space: Unremarkable. No free air. No significant fluid collection. Vasculature: Unremarkable. No abdominal aortic aneurysm. Lymph nodes: Unremarkable. No enlarged lymph nodes. Urinary bladder: Reyes catheter in the urinary bladder with a small amount of air in the urinary bladder, likely iatrogenic. Reproductive: Unremarkable as visualized. Bones/joints: Unremarkable. No acute fracture. Soft tissues: Unremarkable. CT/CT chest abdpel [id number] IMPRESSION: 1. Negative for acute abnormality in the chest. 2. Bilateral dependent atelectasis. IMPRESSION: 1. Negative for acute inflammatory process in the abdomen or pelvis. 2. Cholecystectomy. 3. Moderate constipation. 4. Reyes catheter in the urinary bladder with a small amount of air in the urinary bladder, likely iatrogenic.
--- NOTE | 2024-03-08 18:21 | P.HP_ITS ---
Providers/Chief Complaint 2 Admitting Physician: Sully Ro MD Primary Care Provider: Michelle Rico Chief Complaint: hypotensive History of Present Illness Nina Garcia is a 44 year old female with past medical history of PTSD, bipolar disorder, resistant hypertension, hypothyroidism who presented to the ER today because of being drowsy. As per the patient today morning before she took her antihypertensive for systolic blood pressure was 119. She took her regular medication of clonidine, 6.25 of carvedilol and losartan after which she started feeling dizziness and confused when her called EMS. On arrival to the ER she was found to be hypotensive with blood pressures in 60 systolics after which she received 3 L of IV fluid bolus and Levophed was started. On examination patient was awake and alert, drowsy but able to give complete history saturating well on room air. She is currently on Levophed of 8. Patient states she has been having nausea and vomiting for last few days along with lower abdominal tenderness Review of Systems 2 General: Reports: 10 or more systems reviewed and unremarkable except in HPI and below Const: Denies: fever(s), chills, body aches, change in appetite, change in weight, malaise, night sweats, diaphoresis, change in sleep pattern, daytime sleepiness or snoring Eyes: Denies: change in vision, blurry vision, photophobia, eye discomfort or eye discharge ENMT: Denies: throat pain, enlarged tonsils, hoarseness, mouth pain, oral sores, dry mouth, tinnitus, nasal congestion or post nasal drip Card: Denies: chest pain, palpitations, irregular heart rhythm, edema, swelling of feet/ankles, lightheadedness, syncope, pre-syncope, dyspnea on exertion, orthopnea, leg pain with exertion or acrocyanosis Resp: Denies: dyspnea, productive cough, non-productive cough, wheezing, stridor, pain on inspiration, change in phlegm color, hemoptysis or chest congestion GI: Denies: abdominal pain, nausea, vomiting, hematemesis, coffee ground emesis, dysphagia, heartburn, diarrhea, constipation, bloating, GI cramping, change in bowel habits, pain on defecation, hematochezia or melena : Denies: flank pain, dysuria, urinary frequency, urinary urgency, urinary hesitancy, nocturia or hematuria Musc: Denies: neck pain, back pain, extremity pain, joint pain, joint swelling, joint redness, joint stiffness or limited range of motion Neuro: Denies: headache(s), numbness in extremities, weakness in extremities, sensory changes, lack of coordination, difficulty walking, frequent falls, dizziness, vertigo, confusion, Slurred speech present, difficulty communicating thoughts or seizure-like activity Psych: Denies: anxiety, depression, mood swings, panic attacks, hopelessness or irritability Endo: Denies: polyuria, polydipsia, tired all the time, cold intolerance, excessive sweating, flushing or heat intolerance Fahad/Lymph: Denies: easy bruising or easy bleeding All/Imm: Denies: tongue swelling, facial swelling or acute wheezing Medications/Allergies Home Medications Medication Instructions Recorded Confirmed Last Taken Type hydromorphone 4 mg tablet 4 - 8 mg PO Q4H PRN Pain 08/30/19 02/21/24 09/30/23 History 2 tabs ondansetron 8 mg disintegrating 8 mg PO Q8H PRN Nausea And Vomiting 12/09/21 02/21/24 08/16/23 History tablet pen needle, diabetic 32 gauge x #50 ea 05/28/22 02/21/24 08/16/23 Rx (1st Tier Unifine Pentips) allopurinol 300 mg tablet 300 mg PO QAM 11/25/22 02/21/24 09/30/23 History hydralazine 50 mg tablet 50 - 100 mg (1 - 2 x 50 mg) PO TID 04/05/23 02/21/24 08/16/23 Rx PRN Systolic BP >180 #540 tabs pantoprazole 40 mg tablet,delayed 40 mg PO BID #84 tabs 07/20/23 02/21/24 09/30/23 Rx release (Protonix) carvedilol 25 mg tablet See Rx Instructions .Route .COMPLEX 09/30/23 02/21/24 09/30/23 History promethazine 25 mg rectal 25 mg PA Q6H PRN nausea and 09/30/23 02/21/24 Unknown Rx suppository vomiting #12 ea lithium carbonate 150 mg capsule 150 mg PO .QHS #30 caps 10/12/23 02/21/24 Unknown Rx lithium carbonate 300 mg capsule 300 mg PO BID #60 caps 10/12/23 02/21/24 Unknown Rx diltiazem HCl 240 mg 240 mg PO BID #180 caps 11/07/23 02/21/24 Unknown Rx capsule,extended release 24 hr clonidine HCl 0.3 mg tablet 0.3 mg PO TID@0800,1200,2000 #90 12/06/23 02/21/24 Unknown Rx tabs prazosin 2 mg capsule 4 mg (2 x 2 mg) PO BEDTIME #60 caps 12/26/23 02/21/24 Unknown Rx lamotrigine 200 mg tablet 200 mg PO QAM #30 tabs 01/02/24 02/21/24 Unknown Rx hydrochlorothiazide 25 mg tablet 25 mg PO BID 01/03/24 02/21/24 Unknown History lorazepam 2 mg tablet See Rx Instructions PO .COMPLEX 01/03/24 02/21/24 Unknown Rx #60 tabs lurasidone 80 mg tablet 80 mg PO DAILY #30 tabs 01/03/24 02/21/24 Unknown Rx semaglutide 2 mg/dose (8 mg/3 mL) See Rx Instructions .Route 01/03/24 02/21/24 Unknown Rx subcutaneous pen injector (Ozempic) .COMPLEX #3 mL spironolactone 25 mg tablet 25 mg PO BID 01/03/24 02/21/24 Unknown History levothyroxine 75 mcg tablet See Rx Instructions .Route 01/30/24 02/21/24 Unknown Rx .COMPLEX #30 tabs zolpidem 10 mg tablet 10 mg PO .qhs #30 tabs 02/21/24 02/21/24 Unknown Rx Allergies Allergy/AdvReac Type Severity Reaction Status Date / Time aspirin Allergy due to BUN Verified 02/21/24 13:11 levels coconut Allergy hives Verified 02/21/24 13:11 ketorolac [From Toradol] Allergy hives Verified 02/21/24 13:11 meloxicam [From Mobic] Allergy hives Verified 02/21/24 13:11 NSAIDS (Non-Steroidal Allergy Unknown Verified 02/21/24 13:11 Anti-Inflamma PFSH Acute 2 PFSH: Medical History (Updated 03/08/24 @ 18:44 by Kervin Brar MD) GERD (gastroesophageal reflux disease) Nausea & vomiting CKD (chronic kidney disease) Hypothyroid Hypertensive urgency, malignant Pulmonary embolism Chest pain at rest Psychiatric care HLD (hyperlipidemia) DM2 (diabetes mellitus, type 2) Chronic back pain Chronic neck and back pain Post traumatic stress disorder (PTSD) Bipolar 1 disorder, depressed, full remission Hypertensive emergency Palpitation Malignant hypertension Chronic renal disease Generalized anxiety disorder Surgical History History of back surgery H/O esophagogastroduodenoscopy (08/12/20) H/O angioplasty History of colonoscopy with polypectomy (08/12/20) History of spinal fusion 10/01/2013- C5-6, ACDFF Dr. Villanueva H/O rectal polypectomy Status post hemilaminotomy 01/06/2012, right L5-S1, disectomy and foraminotomy per Dr. Villanueva History of suburethral sling procedure anterior colporrhapy augmentd with porcine graft, cystoscopy performed on 03/08/[address] Haley History of total hysterectomy 2000 Hx of cholecystectomy History of appendectomy History of bilateral oophorectomy 2011 H/O total thyroidectomy Family History Mother Diabetes Pancreatic cancer Ovarian cancer Father Diabetes Hypertension Stroke COPD (chronic obstructive pulmonary disease) Grandfather Hypertension maternal Heart disease maternal Grandmother Colon cancer maternal Social History Smoking and tobacco/nicotine status: never used tobacco/nicotine Second hand smoke exposure: Yes Alcohol intake: never Substance/Drug Use: never Additional social history: well balanced diet Caregiver/support person: No Lives independently: Yes Household members: spouse Housing: House Marital status: Number of children: 8 Highest education level completed: GED or Equivalent service: No Current occupational status: unemployed Vitals/I&O/Wt Last Vital Signs Temp 98.2 F 03/08/24 16:59 Pulse 63 03/08/24 18:00 Resp 15 03/08/24 18:00 BP 109/79 03/08/24 18:00 Pulse Ox 95 03/08/24 18:00 O2 Del Method Room Air 03/08/24 17:55 Physical Exam 2 Narrative: General: No acute distress, AO x3, drowsy HEENT: PERRLA, pupils bilaterally equal and reactive Chest: Normal vesicular breath sounds, no added sounds, equal good air entry bilaterally CVS: S1-S2 regular, no murmurs, no tachycardia, no gallops, no rubs Abdomen: Soft, mild tenderness in suprapubic region, no organomegaly, bowel sounds present Neuro: No focal deficits, no facial deformity, AO x3, power 5/5 in all limbs Urinary Catheter Management: Reyes: Cath Placed During This Visit: yes Reason for Continuing Indwelling Catheter: Acute Urinary Retention or Obstruction Urinary Catheter Date of Insertion: 03/08/24 Urinary Catheter Time of Insertion: 18:03 Quick SOFA Score: Respiratory Rate: 13 Blood Pressure: 125/86 Taylor Coma Scale: 15 qSOFA Score: 0 If qSOFA score 2 or greater, continue: Blood Pressure Mean: 99 N orepinephrine Current Rate (?g/kg/min): 8 Bilirubin (mg/dl): 0.5 Platelets (x10?/ml): 211 Creatinine (mg/dl): 2.0 Evaluation: Current stage of sepsis: sepsis Sepsis stage criteria used: [facility] Sep-1 and Sepsis-3 Crystalloid fluids: 30 mL/kg crystalloid fluids ordered and initiated within 3 hours Blood cultures ordered: Yes Possible source: GI tract/intra-abdominal Focused Exam: Vital signs: Temp Pulse Resp BP Pulse Ox O2 Del Method 03/08/24 18:25 64 13 122/80 03/08/24 18:20 64 12 121/74 03/08/24 18:15 62 12 120/79 03/08/24 18:10 63 9 L 111/77 03/08/24 18:05 64 11 L 112/77 03/08/24 18:00 63 15 109/79 03/08/24 17:55 64 15 106/75 95 Room Air 03/08/24 17:50 67 15 112/75 03/08/24 17:45 65 14 117/81 03/08/24 17:40 63 24 H 106/75 95 Room Air 03/08/24 17:35 68 18 114/73 03/08/24 17:30 72 15 100/72 03/08/24 17:25 62 14 105/74 03/08/24 17:20 62 12 96/64 03/08/24 17:15 70 13 70/40 93 03/08/24 17:11 65/35 07/11/24 17:10 71 13 67/38 90 03/08/24 17:08 60/37 03/08/24 17:05 71 14 93 03/08/24 17:02 72 19 H 92 03/08/24 16:59 98.2 F 70 18 49/36 92 Room Air 03/08/24 16:41 98.2 F 70 18 49/36 92 Room Air Respiratory exam: CTA bilaterally Cardiovascular exam: regular rate, regular rhythm, S1 normal heart sound and S2 normal heart sound Capillary refill: > 3 Seconds Peripheral pulse strength: 2+ Slightly Diminished P eripheral pulse location: Radial Skin exam: pallor noted Date exam was performed: 03/08/24 Time exam was performed: 18:54 2 Sepsis Screen No Definite Risk 03/08/24 18:45 Respiratory Rate 13 breaths/min (12 - 18) 03/08/24 18:45 Blood Pressure 125/86 mmHg 03/08/24 18:45 Taylor Coma Scale Score 15 03/08/24 16:59 Quick SOFA Score 0 03/08/24 18:45 SOFA Score: 2 Taylor Coma Scale Score 15 03/08/24 16:59 Blood Pressure Mean 99 mmHg 03/08/24 18:45 Norepinephrine Current Rate 8 03/08/24 18:34 Total Bilirubin 0.5 mg/dL (0.15-1.2) 03/08/24 17:07 Platelet Count 211 10^3/cmm (157-399) 03/08/24 17:07 Creatinine 2.0 mg/dL (0.5-0.9) H 03/08/24 17:07 SOFA Score 8 03/08/24 18:34 Data 03/08/24 17:07 03/08/24 17:07 Other Labs: Radiology Impressions Chest X-Ray 03/08/24 16:42 IMPRESSION: No acute findings. Laboratory Results WBC 6.86 10^3/uL (3.29-11.43) 03/08/24 17:07 RBC 4.04 10^6/uL (3.85-5.65) 03/08/24 17:07 Hgb 11.50 g/dL (11.27-16.99) 03/08/24 17:07 Hct 38.2 % (36-47) 03/08/24 17:07 MCV 94.6 fl (85-98) 03/08/24 17:07 MCH 28.5 pg (27-33) 03/08/24 17:07 MCHC 30.1 g/dL (30-55) 03/08/24 17:07 RDW 15.9 % (12.1-15.1) H 03/08/24 17:07 Plt Count 211 10^3/cmm (157-399) 03/08/24 17:07 MPV 12.0 fL (7.4-10.4) H 03/08/24 17:07 Neut % (Auto) 56.9 % 03/08/24 17:07 Lymph % (Auto) 33.2 % 03/08/24 17:07 [place] % (Auto) 7.3 % 03/08/24 17:07 Eos % (Auto) 1.6 % 03/08/24 17:07 Baso % (Auto) 0.6 % 03/08/24 17:07 Neut # (Auto) 3.90 10^3/uL (1.8-7.7) 03/08/24 17:07 Lymph # (Auto) 2.3 10^3/uL (0.8-4.8) 03/08/24 17:07 [place] # (Auto) 0.5 10^3/uL (0.2-0.9) 03/08/24 17:07 Eos # (Auto) 0.1 10^3/uL (0.0-0.8) 03/08/24 17:07 Baso # (Auto) 0.0 10^3/uL (0.0-0.1) 03/08/24 17:07 Nucleated RBC % (auto) 0 % 03/08/24 17:07 Nucleated RBCs # 0.0 /100WBC 03/08/24 17:07 D-Dimer 0.28 ug/mLFEU (0-0.59) 03/08/24 17:07 Sodium 138 mmol/L (136-145) 03/08/24 17:07 Potassium 4.1 mmol/L (3.5-5.1) 03/08/24 17:07 Chloride 107 mmol/L (98-107) 03/08/24 17:07 Carbon Dioxide 24 mmol/L (22-29) 03/08/24 17:07 Anion Gap 11.1 (5-19) 03/08/24 17:07 BUN 11 mg/dL (6-20) 03/08/24 17:07 Creatinine 2.0 mg/dL (0.5-0.9) H 03/08/24 17:07 GFR Calculation 26.8 mL/min (90-130) L 03/08/24 17:07 Glucose 106 mg/dL (65-115) 03/08/24 17:07 Calculated Osmolality 286 mOsm/kg (285-295) 03/08/24 17:07 Lactic Acid 1.2 mmol/L (0.5-2.2) 03/08/24 17:07 Calcium 8.3 mg/dL (8.5-10.5) L 03/08/24 17:07 Iron 44 ug/dL (37-145) 03/08/24 17:07 TIBC 248 mcg/dl 03/08/24 17:07 % Saturation 17.7 % (20-50) L 03/08/24 17:07 Unsat Iron Binding 204 ug/dL (112-347) 03/08/24 17:07 Total Bilirubin 0.5 mg/dL (0.15-1.2) 03/08/24 17:07 AST 13 U/L (0-32) 03/08/24 17:07 ALT 10 U/L (0-33) 03/08/24 17:07 Alkaline Phosphatase 38 U/L (35-105) 03/08/24 17:07 Creatine Kinase 27 U/L (26-192) 03/08/24 17:07 Troponin T Baseline 8 ng/L (0-10) 03/08/24 17:07 Total Protein 6.2 g/dL (6.6-8.7) L 03/08/24 17:07 Albumin 3.6 g/dL (3.5-5.2) 03/08/24 17:07 Globulin 2.6 g/dL (1.3-4.6) 03/08/24 17:07 Urine Color Yellow (Yellow) 03/08/24 18:05 Urine Appearance Clear (CLEAR) 03/08/24 18:05 Urine pH 6 (5-7) 03/08/24 18:05 Ur Specific [place] 1.015 (1.005-1.030) 03/08/24 18:05 Urine Protein Neg (Negative) 03/08/24 18:05 Urine Glucose (UA) Norm (Normal) 03/08/24 18:05 Urine Ketones Negative (Negative) 03/08/24 18:05 Urine Blood Neg (Negative) 03/08/24 18:05 Urine Nitrate Negative (Negative) 03/08/24 18:05 Urine Bilirubin Neg (Negative) 03/08/24 18:05 Urine Urobilinogen Norm mg/dL (Negative) 03/08/24 18:05 Ur Leukocyte Esterase Negative (Negative) 03/08/24 18:05 Ur Random Sodium 54 mmol/L 03/08/24 18:05 Ur Random Potassium 18 mmol/L 03/08/24 18:05 Ur Random Chloride 47 mmol/L 03/08/24 18:05 Urine Creatinine 48 mg/dL (28-217) 03/08/24 18:05 A&P Assessment and plan (1) Shock: Most likely cardiogenic in nature. Patient does not have any leukocytosis, and does not have any localizing symptoms other than nausea and vomiting. Denies any dysuria. Denies any difficulty in breathing. At baseline she has a history of resistant hypertension. Wean Levophed keeping mean artery pressure over 65. For now because patient is critically sick start her on empiric IV vancomycin and Zosyn. Check blood culture, urinalysis, urine culture, procalcitonin, urine Legionella, bacterial antigen, MRSA swab, respiratory viral panel, urine drug screen. Depending on the clinical picture within next 24 to 48 hours we will plan to discontinue IV antibiotics. Continue normal saline at 100 cc/h. Last echocardiogram from 2021 showed an EF of 65% without regional wall motion abnormality. Last cardiac cath from 2021 showed nonobstructive CAD. Check troponin cycle, echocardiogram. Reyes catheterization. Check CT chest, abdomen pelvis without contrast for further evaluation for possible infectious source (2) Nausea & vomiting: Check lipase. Continue with home dose of Protonix. Zofran as needed. Clear liquid diet for now. (3) Acute kidney injury superimposed on CKD: Baseline creatinine 1.2-1.4. Currently 2. Most likely in setting of shock. Fluid as above. Check urine lites, urine creatinine, urine eosinophils. Medical reconciliation done for nephrotoxic drugs. Monitor renal functions daily. (4) Resistant hypertension: (5) DM2 (diabetes mellitus, type 2): Recent A1c 5.7. Hold off on sliding scale. Monitor daily on BMP. (6) Post traumatic stress disorder (PTSD): (7) Bipolar 1 disorder: Takes lithium 300 mg every morning and 175 nightly. Check lithium level prior to next dose. Denies any recent changes in doses. Plan Chronic pain management: Takes tizanidine 4 mg 4 times a day, Dilaudid 4 mg 4 times a day at home. For now start on tizanidine 2 mg 4 times daily, Dilaudid 2 mg 4 times daily as needed. Full code will be the DPOA with Clear liquid diet Protonix for PUD prophylaxis Heparin 5000 every 12 hourly for DVT prophylaxis. Attestations 2 Medical Necessity Statement*: Admit to ICU for management of shock most likely cardiogenic in nature while sepsis is ruled out Critical Care Time: The high probability of a clinically significant, sudden or life threatening deterioration of the patient's [cardiac, renal] system(s) required my full and direct attention, intervention and personal management. The critical care time is as shown. This time is in addition to time spent performing any reported procedures but includes the following: [x] Data and vital sign review and interpretation [x] Patient assessment, examination and intervention [x] Documentation [x] Medication orders and management Critical Care Time (min): 80 Coding Level of Care Code Critical Care >/= 30 minutes Critical care time (in minutes): 80 The high probability of a clinically significant, sudden or life threatening deterioration, as referenced in this documentation, required my full and direct attention, intervention and personal management. The critical care time shown is in addition to time spent performing any reported separately billable procedures and includes the following: [x] Data and vital sign review and interpretation [x ] Patient assessment, examination and intervention [x] Medication orders and management [x] Patient/Family updates as able [x] Care Coordination and Documentation. Diagnoses Shock R57.9 Nausea & vomiting R11.2 Acute kidney injury superimposed on CKD N17.9; N18.9 Resistant hypertension I10 DM2 (diabetes mellitus, type 2) E11.9 Post traumatic stress disorder (PTSD) F43.10 Bipolar 1 disorder F31.9
[2024-03-08 18:23] LABS: Bilirubin Urine Neg (Negative); Blood Urine Neg (Negative); Glucose Urine UA Norm (Normal); Ketones Urine Negative (Negative); Leukocyte Esterase Urine Negative (Negative); Nitrate Urine Negative (Negative); Protein Urine Neg (Negative); Specific Gravity, Urine 1.015 (1.005-1.030); Urine Appearance Clear (CLEAR); Urine Color Yellow (Yellow); Urobilinogen Urine Norm (Negative); pH Urine 6 (5-7)
[2024-03-08] MEDS: sodium chloride 0.9% 1,000 ML 999 ML IV (18:26)
[2024-03-08 18:43] LABS: D Dimer 0.28 ug/mLFEU (0-0.59)
--- NOTE | 2024-03-08 18:43 | ECG_ITS ---
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 Measurements Intervals [place] Rate: 74 P: 61 HI: 185 QRS: 85 QRSD: 89 T: 17 QT: 390 QTc: 434 Interpretive Statements SINUS RHYTHM Compared to ECG 03/08/2024 16:51:32 No significant changes Electronically Signed On 03-09-2024 11:55:47 CDT by Amber Colindres M.D. [id number]
[2024-03-08 18:50] LABS: Iron 44 ug/dL (37-145); Percent Saturation 17.7 % (20-50); Total Iron Binding Capacity 248 mcg/dl; Unsaturated Iron Binding 204 ug/dL (112-347)
[2024-03-08 18:50] LABS: Potassium, Radom Urine 18 mmol/L; Urine Creatinine 48 mg/dL (28-217); Urine Random Chloride 47 mmol/L; Urine Random Sodium 54 mmol/L
[2024-03-08 19:05] LABS: Procalcitonin 0.12 ng/mL (0-0.5); Vitamin B12 218 pg/mL (232-1245)
[2024-03-08 19:15] LABS: Amphetamines Screen Urine Negative (Negative); Barbiturates Screen Urine Negative (Negative); Benzodiazepines Screen Urine Positive (Negative); Cocaine Screen Urine Negative (Negative); Opiate Screen Urine Positive (Negative); PCP Screen Urine Negative (Negative); THC Screen Urine Negative (Negative)
[2024-03-08 19:24] LABS: Eosinophil Urine No Eosinophils Seen
[2024-03-08] MEDS: sodium chloride 0.9% 1,000 ML 100 ML IV (19:27)
[2024-03-08 19:58] LABS: Lipase 22 U/L (13-60)
[2024-03-08] MEDS: vancomycin 750 MG in sodium chloride 0.9% 250 ML 250 MG IV (20:16)
[2024-03-08] MEDS: LORazepam 2 mg Tablet PO (20:19)
[2024-03-08] MEDS: tizanidine 4 mg Tablet 2 MG PO (20:19)
[2024-03-08] MEDS: heparin 5,000 unit/mL INJ 1 mL 5000 UNIT SUBCUT (20:21)
[2024-03-08] MEDS: piperacillin-tazobactam 3.375 GM in sodium chloride 0.9% (plus) 50 ML IV (20:31)
[2024-03-08 20:42] LABS: Lithium 0.1 mmol/L (0.6-1.2)
[2024-03-08 20:50] LABS: Adenovirus Not Detected (NOT DETECT); Chlamydia Pneumoniae Not Detected (NOT DETECT); Coronavirus 229E,HKU1,NL63,OC4 Not Detected (NOT DETECT); Human Metapneumovirus Not Detected (NOT DETECT); Human Rhinovirus/Enterovirus Not Detected (NOT DETECT); Influenza A Not Detected (NOT DETECT); Influenza A H1 Not Detected (NOT DETECT); Influenza A H1-2009 Not Detected (NOT DETECT); Influenza A H3 Not Detected (NOT DETECT); Influenza B Not Detected (NOT DETECT); Mycoplasma Pneumoniae Not Detected (NOT DETECT); Parainfluenza Virus Type 1 Not Detected (NOT DETECT); Parainfluenza Virus Type 2 Not Detected (NOT DETECT); Parainfluenza Virus Type 3 Not Detected (NOT DETECT); Parainfluenza Virus Type 4 Not Detected (NOT DETECT); Respiratory Syncytial Virus A Not Detected (NOT DETECT); Respiratory Syncytial Virus B Not Detected (NOT DETECT); SARS-COV-2 Not Detected (NOT DETECT)
[2024-03-08] MEDS: lithium carbonate 150 mg Capsule PO (21:11)
--- NOTE | 2024-03-08 23:16 | ECG_ITS ---
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 Measurements Intervals [place] Rate: 75 P: 47 NE: 170 QRS: 84 QRSD: 82 T: 12 QT: 370 QTc: 414 Interpretive Statements SINUS RHYTHM Compared to ECG 03/08/2024 18:45:05 No significant changes Electronically Signed On 03-09-2024 11:46:24 CDT by Amber Colindres M.D. [id number]
[2024-03-08] MEDS: morphine 4 mg/mL SDV 1 mL 2 MG IVP (23:25)
[2024-03-08 23:48] LABS: Troponin 5 6HR 6.36 ng/L (0-10)
[2024-03-08 23:55] LABS: Troponin 5 6HR Delta -1.64 ng/L (0-12)
[2024-03-09] VITALS (112 sets, daily range): BP systolic 73–138; BP diastolic 45–111; PULSE 69–105; RESP 8–31; TEMP 36.9–37.1; O2SAT 89–98
[2024-03-09] MEDS: acetaminophen 325 mg Tablet 650 MG PO (02:09)
[2024-03-09] MEDS: piperacillin-tazobactam 3.375 GM in sodium chloride 0.9% (plus) 50 ML IV ×2 (02:11→11:39)
[2024-03-09] MEDS: morphine 4 mg/mL SDV 1 mL 2 MG IVP ×4 (04:15→19:55)
[2024-03-09] MEDS: sodium chloride 0.9% 1,000 ML 100 ML IV ×3 (04:21→17:08)
[2024-03-09 04:40] LABS: Basophils % 0.4 %; Eosinophils # 0.1 10^3/uL (0.0-0.8); Eosinophils % 1.2 %; Lymphocytes # 2.7 10^3/uL (0.8-4.8); Lymphocytes % 28.8 %; Mean Corpuscular Hemoglobin 28.9 pg (27-33); Mean Corpuscular Volume 96.2 fl (85-98); Mean Platelet Volume 11.6 fL (7.4-10.4); Monocytes # 0.7 10^3/uL (0.2-0.9); Monocytes % 7.3 %; Neutrophils # 5.76 10^3/uL (1.8-7.7); Neutrophils % 61.9 %; Nucleated Red Blood Cells % 0 %; Platelet Count 219 10^3/cmm (157-399); Red Blood Count 4.26 10^6/uL (3.85-5.65); White Blood Count 9.31 10^3/uL (3.29-11.43)
[2024-03-09 05:04] LABS: Procalcitonin 0.09 ng/mL (0-0.5)
[2024-03-09 05:05] LABS: Alanine Aminotransferase 11 U/L (0-33); Albumin Level 3.7 g/dL (3.5-5.2); Alkaline Phosphatase 45 U/L (35-105); Anion Gap 14.7 (5-19); Aspartate Amino Transferase 12 U/L (0-32); Blood Urea Nitrogen 8 mg/dL (6-20); Calcium 8.3 mg/dL (8.5-10.5); Carbon Dioxide 22 mmol/L (22-29); Chloride 108 mmol/L (98-107); Creatinine Clr Calc Pharmacy 50.2953; Glomerular Filtration Rate 37.4 mL/min (90-130); Glucose 94 mg/dL (65-115); Magnesium 1.9 mg/dL (1.7-2.3); Osmolality Calculated 288 mOsm/kg (285-295); Phosphorus 2.9 mg/dL (2.5-4.5); Potassium 4.7 mmol/L (3.5-5.1); Sodium 140 mmol/L (136-145); Total Bilirubin 0.6 mg/dL (0.15-1.2); Total Protein 6.7 g/dL (6.6-8.7)
[2024-03-09 05:19] LABS: Folate Level 3.1 ng/mL (4.8-37.3)
[2024-03-09] MEDS: LORazepam 2 mg Tablet 1 MG PO ×2 (05:54→11:40)
[2024-03-09] MEDS: lamoTRIgine 100 mg Tablet 200 MG PO (05:54)
[2024-03-09] MEDS: lithium carbonate 300 mg Capsule PO ×2 (08:09→20:20)
[2024-03-09] MEDS: tizanidine 4 mg Tablet 2 MG PO ×4 (08:09→20:20)
[2024-03-09] MEDS: heparin 5,000 unit/mL INJ 1 mL 5000 UNIT SUBCUT ×2 (08:09→19:57)
[2024-03-09] MEDS: pantoprazole DR 40 mg Tablet PO ×2 (08:10→17:08)
[2024-03-09] MEDS: levothyroxine 75 mcg Tablet PO (08:10)
--- NOTE | 2024-03-09 08:54 | PC.PHAR ---
PT STATES DILAUDID 4MG AND TIZANIDINE 4 MG ARE F[facility]ED AT [facility] THESE 2 MEDICATIONS FOR HER. PT ALSO STATES TAKES LITHIUM CARBONATE 175MG AT BEDTIME. LITHIUM COMES IN 150MG AND 300MG CAPSULES. I ASKED IF SHE BROKE OPEN THE CAPSULE AND ESTIMATED AMOUNT. SHE STATES SHE TAKES THE WHOLE CAPSULE.
--- NOTE | 2024-03-09 14:50 | PM.PN ---
Subjective Subjective: No acute events overnight. Levophed was shut off earlier today morning. Her blood pressures have been stable. Patient is more awake and alert. Denies any nausea vomiting, headache. Urine output of around 2500 cc since admission. Vitals/I&O/Wt Last Vital Signs Temp 98.5 F 03/09/24 08:00 Pulse 90 03/09/24 12:15 Resp 15 03/09/24 12:15 BP 90/60 03/09/24 12:15 Pulse Ox 97 03/09/24 12:15 O2 Del Method Room Air 03/09/24 06:00 03/08/24 03/09/24 03/09/24 22:59 06:59 14:59 Intake Total 1713.917 / 4233.585 2905.958 / 3367.875 420 / 420 Output Total 2700 / 2700 Balance 1713.917 / 1713.917 -1046.042 / 667.875 420 / 420 Weight last 48 hrs Weight 83.915 kg Weight 83.96 kg Weight 84.459 kg Physical Exam Narrative: General: No acute distress, AO x3, HEENT: PERRLA, pupils bilaterally equal and reactive Chest: Normal vesicular breath sounds, no added sounds, equal good air entry bilaterally CVS: S1-S2 regular, no murmurs, no tachycardia, no gallops, no rubs Abdomen: Soft, mild tenderness in suprapubic region, no organomegaly, bowel sounds present Neuro: No focal deficits, no facial deformity, AO x3, power 5/5 in all limbs Resp: COMMON NORMALS: clear to auscultation bilaterally AUSCULTATION: clear to auscultation bilaterally Cardio: COMMON NORMALS: regular rate, regular rhythm, S1 normal heart sound present and S2 normal heart sound present RATE: regular rate RHYTHM: regular rhythm HEART SOUNDS: S1 normal heart sound present and S2 normal heart sound present Skin: GENERAL SKIN EXAM: pallor Urinary Catheter Management: Reyes: Cath Placed During This Visit: yes Reason for Continuing Indwelling Catheter: Accurate Measurement of Urinary Output in Critically Ill Patients Urinary Catheter Date of Insertion: 03/08/24 Urinary Catheter Time of Insertion: 18:03 Data 03/09/24 04:20 03/09/24 04:20 Micro: Microbiology 03/08/24 18:05 Bacterial Antigens - Final Urine Kidney 03/08/24 18:05 Legionella Urinary Antigen - Final Unknown Source 03/08/24 18:56 Blood Culture - Preliminary Blood SPECIMEN COLLECTED 03/08/24 18:49 Blood Culture - Preliminary Blood SPECIMEN COLLECTED A&P Assessment and plan (1) Shock: Most likely cardiogenic in nature.Most likely in setting of dehydration from poor oral intake and persistent nausea and vomiting for last 3 days. Patient does not have any leukocytosis, and does not have any localizing symptoms other than nausea and vomiting. Denies any dysuria. Denies any difficulty in breathing. At baseline she has a history of resistant hypertension. Levophed has been weaned off. CT abdomen pelvis results appreciated. Patient has remained afebrile. Blood pressures have improved. No leukocytosis. Procalcitonin negative, respiratory viral panel negative, urine Legionella bacterial antigen negative. Follow-up blood cultures. For now stop empiric IV antibiotics and monitor. Continue normal saline at 100 cc/h. Troponin cycled negative. Echocardiogram shows normal EF without regional wall motion abnormality. Last cardiac cath from 2021 showed nonobstructive CAD. (2) Nausea & vomiting: Lipase is normal. Continue Protonix, Zofran as needed. Advance diet (3) Acute kidney injury superimposed on CKD: Baseline creatinine 1.2-1.4. Creatinine down to 1.5. Appreciate urine studies. Continue with fluid as above. Monitor renal functions daily. (4) Resistant hypertension: (5) DM2 (diabetes mellitus, type 2): Recent A1c 5.7. Hold off on sliding scale. Monitor daily on BMP. (6) Post traumatic stress disorder (PTSD): (7) Bipolar 1 disorder: Takes lithium 300 mg every morning and 175 nightly. [place] level is low. Discussed with patient's outpatient pharmacy. She is supposed to be on 450 mg of lithium in the morning and 600 mg of lithium in evening. For now we will change to 300 mg BID, 150 mg QHS Plan Chronic pain management: Takes tizanidine 4 mg 4 times a day, Dilaudid 4 mg 4 times a day at home. For now start on tizanidine 2 mg 4 times daily, Dilaudid 2 mg 4 times daily as needed. Full code will be the DPOA Regular diet Protonix for PUD prophylaxis Heparin 5000 every 12 hourly for DVT prophylaxis. Attestations Medical Necessity Statement*: Requires further hospitalization for further evaluation and management of shock as the blood pressures improve while infectious process is ruled out. Diagnoses Shock R57.9 Nausea & vomiting R11.2 Acute kidney injury superimposed on CKD N17.9; N18.9 Resistant hypertension I10 DM2 (diabetes mellitus, type 2) E11.9 Post traumatic stress disorder (PTSD) F43.10 Bipolar 1 disorder F31.9
[2024-03-09 16:34] LABS: Glucose Point of Care 111 mg/dL (70-110)
[2024-03-09] MEDS: LORazepam 2 mg Tablet PO (20:19)
[2024-03-09] MEDS: lithium carbonate 150 mg Capsule PO (20:21)
[2024-03-09] MEDS: sodium chloride 0.9% 1,000 ML 125 ML IV (22:13)
[2024-03-10] VITALS (17 sets, daily range): BP systolic 91–124; BP diastolic 57–82; PULSE 73–93; RESP 10–22; TEMP 36.5–36.9; O2SAT 97–100
[2024-03-10] MEDS: morphine 4 mg/mL SDV 1 mL 2 MG IVP ×3 (02:39→14:40)
[2024-03-10 05:04] LABS: Basophils % 0.8 %; Eosinophils # 0.1 10^3/uL (0.0-0.8); Eosinophils % 2.3 %; Hematocrit 36.7 % (36-47); Lymphocytes # 2.2 10^3/uL (0.8-4.8); Lymphocytes % 42.8 %; Mean Corpuscular Hemoglobin 28.7 pg (27-33); Mean Corpuscular Volume 95.8 fl (85-98); Mean Platelet Volume 11.3 fL (7.4-10.4); Monocytes # 0.3 10^3/uL (0.2-0.9); Monocytes % 6.5 %; Neutrophils # 2.47 10^3/uL (1.8-7.7); Neutrophils % 47.4 %; Nucleated Red Blood Cells % 0 %; Platelet Count 172 10^3/cmm (157-399); Red Blood Count 3.83 10^6/uL (3.85-5.65); Red Cell Distribution Width 16.1 % (12.1-15.1); White Blood Count 5.21 10^3/uL (3.29-11.43)
[2024-03-10 05:24] LABS: Alanine Aminotransferase 12 U/L (0-33); Albumin Level 3.6 g/dL (3.5-5.2); Alkaline Phosphatase 41 U/L (35-105); Aspartate Amino Transferase 12 U/L (0-32); Blood Urea Nitrogen 5 mg/dL (6-20); Carbon Dioxide 27 mmol/L (22-29); Chloride 105 mmol/L (98-107); Creatinine Clr Calc Pharmacy 62.6679; Glomerular Filtration Rate 48.4 mL/min (90-130); Glucose 97 mg/dL (65-115); Osmolality Calculated 287 mOsm/kg (285-295); Sodium 140 mmol/L (136-145); Total Bilirubin 0.3 mg/dL (0.15-1.2); Total Protein 5.6 g/dL (6.6-8.7)
[2024-03-10] MEDS: allopurinol 300 mg Tablet PO (05:47)
[2024-03-10] MEDS: LORazepam 2 mg Tablet 1 MG PO ×2 (05:47→12:36)
[2024-03-10] MEDS: lamoTRIgine 100 mg Tablet 200 MG PO (05:47)
[2024-03-10] MEDS: sodium chloride 0.9% 1,000 ML 125 ML IV ×3 (05:48→19:53)
[2024-03-10] MEDS: levothyroxine 75 mcg Tablet PO (08:37)
[2024-03-10] MEDS: heparin 5,000 unit/mL INJ 1 mL 5000 UNIT SUBCUT ×2 (08:37→20:29)
[2024-03-10] MEDS: pantoprazole DR 40 mg Tablet PO ×2 (08:37→17:04)
[2024-03-10] MEDS: tizanidine 4 mg Tablet 2 MG PO ×2 (08:38→12:36)
[2024-03-10] MEDS: lithium carbonate 300 mg Capsule PO ×2 (08:42→20:28)
--- NOTE | 2024-03-10 08:45 | PC.NURSE ---
Patient states, current dose of pain medications and muscle relaxer is just not enough. I am taking 4mg of Dilaudid and 4mg of tizanadine. Informed patient rationale for current dosing. Patient expressed understanding and will speak with physician.
--- NOTE | 2024-03-10 11:43 | PC.NURSE ---
Reyes catheter removed per Dr Brar. Patient tolerated well and expressed thanks. Provided instruction regarding need for accurate I&O. Patient verbalized complete understanding. Measuring device provided.
--- NOTE | 2024-03-10 14:18 | P.PN_ITS ---
Subjective 2 Subjective: Patient had soft blood pressure yesterday evening for which she required 5 cc of IV fluid bolus after which her blood pressures overnight have maintained with mean arterial pressure over 65. Today morning seen with at bedside. Patient states she is feeling better though continues to have extensive pain in her back and hip. Walked in the hallway without having any dizziness or unsteadiness. Vitals/I&O/Wt Last Vital Signs Temp 98.0 F 03/10/24 11:52 Pulse 84 03/10/24 11:20 Resp 14 03/10/24 12:36 BP 124/82 03/10/24 11:20 Pulse Ox 98 03/10/24 12:36 O2 Del Method Room Air 03/10/24 11:20 03/09/24 03/10/24 03/10/24 22:59 06:59 14:59 Intake Total 1133.792 / 2383.792 1347.917 / 3731.709 1932.083 / 1932.083 Output Total 2100 / 2100 1400 / 3500 1450 / 1450 Balance -966.208 / 283.792 -52.083 / 231.709 482.083 / 482.083 Weight last 48 hrs Weight 85.729 kg Weight 83.915 kg Weight 83.96 kg Weight 84.459 kg Physical Exam 2 Narrative: General: No acute distress, AO x3, HEENT: PERRLA, pupils bilaterally equal and reactive Chest: Normal vesicular breath sounds, no added sounds, equal good air entry bilaterally CVS: S1-S2 regular, no murmurs, no tachycardia, no gallops, no rubs Abdomen: Soft, mild tenderness in suprapubic region, no organomegaly, bowel sounds present Neuro: No focal deficits, no facial deformity, AO x3, power 5/5 in all limbs Resp: COMMON NORMALS: clear to auscultation bilaterally AUSCULTATION: clear to auscultation bilaterally Cardio: COMMON NORMALS: regular rate, regular rhythm, S1 normal heart sound present and S2 normal heart sound present RATE: regular rate RHYTHM: r egular rhythm HEART SOUNDS: S1 normal heart sound present and S2 normal heart sound present Skin: GENERAL SKIN EXAM: pallor Urinary Catheter Management: Reyes: Cath Placed During This Visit: yes, but has since been removed by the nurse Reason for Continuing Indwelling Catheter: Accurate Measurement of Urinary Output in Critically Ill Patients Urinary Catheter Date of Insertion: 03/08/24 Urinary Catheter Time of Insertion: 18:03 Date Urinary Catheter Removed: 03/10/24 Time Urinary Catheter Discontinued: 11:42 Data 03/10/24 04:58 03/10/24 04:58 Micro: Microbiology 03/08/24 18:56 Blood Culture - Preliminary Blood NEGATIVE TO DATE 03/08/24 18:49 Blood Culture - Preliminary Blood NEGATIVE TO DATE 03/08/24 18:05 Bacterial Antigens - Final Urine Kidney A&P Assessment and plan (1) Shock: Most likely cardiogenic in nature. Most likely in setting of dehydration from poor oral intake and persistent nausea and vomiting for last 3 days along with high-dose of pain medications at home. Patient takes 4 to 8 mg of Dilaudid every 4 hours as needed, hydrocodone 2.5 mg daily along with tizanidine at home. Patient does not have any leukocytosis, and does not have any localizing symptoms other than nausea and vomiting. Denies any dysuria. Denies any difficulty in breathing. Has remained afebrile off antibiotics. At baseline she has a history of resistant hypertension. Levophed has been weaned off. CT abdomen pelvis results appreciated. Procalcitonin negative, respiratory viral panel negative, urine Legionella bacterial antigen negative. Follow-up blood cultures. Continue normal saline at 125 cc/h. Troponin cycled negative. Echocardiogram shows normal EF without regional wall motion abnormality. Last cardiac cath from 2021 showed nonobstructive CAD. (2) Nausea & vomiting: Lipase is normal. Continue Protonix, Zofran as needed. Advance diet (3) Acute kidney injury superimposed on CKD: Baseline creatinine 1.2-1.4. Creatinine back to baseline today. Appreciate urine studies. Continue with fluid as above. Monitor renal functions daily. (4) Resistant hypertension: (5) DM2 (diabetes mellitus, type 2): Recent A1c 5.7. Hold off on sliding scale. Monitor daily on BMP. (6) Post traumatic stress disorder (PTSD): (7) Bipolar 1 disorder: Takes lithium 300 mg every morning and 175 nightly. [place] level is low. Discussed with patient's outpatient pharmacy. She is supposed to be on 450 mg of lithium in the morning and 600 mg of lithium in evening. On confirming with the patient she states her dose will recently decreased by the PCP within last 2 months. Given low lithium levels discussed with her in detail about increasing the dose to 300 mg twice daily along with 150 mg nightly. She is agreeable. Plan Chronic pain management: Takes tizanidine 4 mg 4 times a day, Dilaudid 4-8 mg 4 times a day at home. Increase tizanidine to home dose of 4 mg 4 times daily, Dilaudid 2 mg 4 times daily as needed. Full code will be the DPOA Regular diet Protonix for PUD prophylaxis Heparin 5000 every 12 hourly for DVT prophylaxis. Discharge plan: Will plan to discharge in next 24 hours patient remains hemodynamically stable with a stable blood pressure and is able to ambulate without any episodes of dizziness or unsteadiness. Attestations 2 Medical Necessity Statement*: Requires further hospitalization for management of soft blood pressure in a patient with baseline resistant hypertension in setting of dehydration, resolving [place] Diagnoses Shock R57.9 Nausea & vomiting R11.2 Acute kidney injury superimposed on CKD N17.9; N18.9 Resistant hypertension I10 DM2 (diabetes mellitus, type 2) E11.9 Post traumatic stress disorder (PTSD) F43.10 Bipolar 1 disorder F31.9
--- NOTE | 2024-03-10 15:42 | PC.NURSE ---
Received telephone order to increase dose of tizanadine from 2mg to 4mg PO.
[2024-03-10] MEDS: tizanidine 4 mg Tablet PO ×2 (17:04→20:29)
[2024-03-10] MEDS: midodrine 5 mg TABLET PO ×2 (17:56→20:28)
--- NOTE | 2024-03-10 18:02 | PC.NURSE ---
Dr Brar in to see patient. Discussed changes in pain management. Patient verbalized understanding however is upset with changes.
[2024-03-10] MEDS: morphine 4 mg/mL SDV 1 mL 1 MG IVP ×2 (18:51→23:41)
[2024-03-10] MEDS: lithium carbonate 150 mg Capsule PO (20:28)
[2024-03-10] MEDS: LORazepam 2 mg Tablet PO (20:29)
[2024-03-11] VITALS (14 sets, daily range): BP systolic 99–134; BP diastolic 68–90; PULSE 67–92; RESP 7–22; TEMP 36.4–36.9; O2SAT 96–100
[2024-03-11] MEDS: sodium chloride 0.9% 1,000 ML 125 ML IV ×2 (04:12→19:57)
[2024-03-11] MEDS: LORazepam 2 mg Tablet 1 MG PO ×2 (05:19→14:05)
[2024-03-11] MEDS: lamoTRIgine 100 mg Tablet 200 MG PO (05:19)
[2024-03-11] MEDS: allopurinol 300 mg Tablet PO (05:19)
[2024-03-11] MEDS: morphine 4 mg/mL SDV 1 mL 1 MG IVP ×3 (05:21→23:31)
[2024-03-11 05:43] LABS: Basophils % 0.7 %; Eosinophils # 0.1 10^3/uL (0.0-0.8); Eosinophils % 2.8 %; Hematocrit 36.5 % (36-47); Lymphocytes # 1.8 10^3/uL (0.8-4.8); Lymphocytes % 39.4 %; Mean Corpuscular HGB Conc 29.9 g/dL (30-55); Mean Corpuscular Hemoglobin 28.5 pg (27-33); Mean Corpuscular Volume 95.3 fl (85-98); Mean Platelet Volume 11.8 fL (7.4-10.4); Monocytes # 0.4 10^3/uL (0.2-0.9); Monocytes % 7.7 %; Neutrophils # 2.24 10^3/uL (1.8-7.7); Nucleated Red Blood Cells % 0 %; Platelet Count 179 10^3/cmm (157-399); Red Blood Count 3.83 10^6/uL (3.85-5.65); White Blood Count 4.57 10^3/uL (3.29-11.43)
[2024-03-11 06:12] LABS: Alanine Aminotransferase 10 U/L (0-33); Albumin Level 3.5 g/dL (3.5-5.2); Alkaline Phosphatase 41 U/L (35-105); Anion Gap 8.9 (5-19); Aspartate Amino Transferase 12 U/L (0-32); Blood Urea Nitrogen 4 mg/dL (6-20); Calcium 8.4 mg/dL (8.5-10.5); Carbon Dioxide 29 mmol/L (22-29); Chloride 106 mmol/L (98-107); Globulin 2.7 g/dL (1.3-4.6); Glomerular Filtration Rate 53.5 mL/min (90-130); Glucose 101 mg/dL (65-115); Osmolality Calculated 287 mOsm/kg (285-295); Potassium 3.9 mmol/L (3.5-5.1); Sodium 140 mmol/L (136-145); Total Bilirubin 0.3 mg/dL (0.15-1.2); Total Protein 6.2 g/dL (6.6-8.7)
[2024-03-11] MEDS: heparin 5,000 unit/mL INJ 1 mL 5000 UNIT SUBCUT ×2 (09:47→19:44)
[2024-03-11] MEDS: levothyroxine 75 mcg Tablet PO (09:48)
[2024-03-11] MEDS: lithium carbonate 300 mg Capsule PO ×2 (09:48→21:27)
[2024-03-11] MEDS: midodrine 5 mg TABLET PO (09:48)
[2024-03-11] MEDS: pantoprazole DR 40 mg Tablet PO ×2 (09:48→19:43)
[2024-03-11] MEDS: tizanidine 4 mg Tablet PO ×4 (09:48→21:27)
--- NOTE | 2024-03-11 11:19 | PC.NURSE ---
Provider is notified that patient has been complaining of itching all over. No visible rash at this time. Patient is wondering if it is the midodrine that was started yesterday. Provider changed some of her medications. Orders entered.
[2024-03-11] MEDS: diphenhydrAMINE 25 mg Capsule PO (11:33)
--- NOTE | 2024-03-11 11:34 | PC.NURSE ---
Patient did give herself her own Ozempic 2 mg.
--- NOTE | 2024-03-11 13:06 | P.PN_ITS ---
Subjective 2 Subjective: Overnight blood pressures are better after starting midodrine but patient started developing itching all over her body after the second dose. Today morning patient is awake and alert. at bedside. Denies any nausea vomiting, headache. Blood pressure with a mean of 80 but she had received midodrine 2 hours ago. Vitals/I&O/Wt Last Vital Signs Temp 98.0 F 03/11/24 11:49 Pulse 87 03/11/24 11:49 Resp 13 03/11/24 11:49 BP 125/85 03/11/24 11:49 Pulse Ox 98 03/11/24 11:49 O2 Del Method Room Air 03/11/24 11:49 03/10/24 03/11/24 03/11/24 22:59 06:59 14:59 Intake Total 1248.333 / 3180.416 1400 / 4580.416 Output Total 600 / 2350 600 / 2950 Balance 648.333 / 830.416 800 / 1630.416 Weight last 48 hrs Weight 85.729 kg Weight 85.729 kg Physical Exam 2 Narrative: General: No acute distress, AO x3, HEENT: PERRLA, pupils bilaterally equal and reactive Chest: Normal vesicular breath sounds, no added sounds, equal good air entry bilaterally CVS: S1-S2 regular, no murmurs, no tachycardia, no gallops, no rubs Abdomen: Soft, mild tenderness in suprapubic region, no organomegaly, bowel sounds present Neuro: No focal deficits, no facial deformity, AO x3, power 5/5 in all limbs Resp: COMMON NORMALS: clear to auscultation bilaterally AUSCULTATION: clear to auscultation bilaterally Cardio: COMMON NORMALS: regular rate, regular rhythm, S1 normal heart sound present and S2 normal heart sound present RATE: regular rate RHYTHM: r egular rhythm HEART SOUNDS: S1 normal heart sound present and S2 normal heart sound present Skin: GENERAL SKIN EXAM: pallor Urinary Catheter Management: Reyes: Cath Placed During This Visit: yes, but has since been removed by the nurse Reason for Continuing Indwelling Catheter: Accurate Measurement of Urinary Output in Critically Ill Patients Urinary Catheter Date of Insertion: 03/08/24 Urinary Catheter Time of Insertion: 18:03 Date Urinary Catheter Removed: 03/10/24 Time Urinary Catheter Discontinued: 11:42 Data 03/11/24 05:13 03/11/24 05:13 A&P Assessment and plan (1) Shock: Shock has resolved. Blood pressures are better but still running soft as per her baseline. Shock on admission will most likely in setting of dehydration. Persistently soft blood pressures without shock now most likely in setting of losing around 70 kg of weight in last 1 year while being on Ozempic and extremely high baseline pain medications including Dilaudid 4 to 8 mg every 4 hours as needed, tizanidine 8 mg every 4 hours. Discussed in detail with the patient that for now there are no signs of infection. Patient has remained afebrile off antibiotics for last 3 days. No leukocytosis. Cortisol levels normal. Given concerns for possible allergic reaction for now we will discontinue midodrine. Discussed about switching from Dilaudid to oxycodone. Patient is agreeable. Preferably switching to oxycodone because of possibility of less hypertension as compared with Dilaudid. Started on oxycodone IR 10 mg twice daily along with oxycodone 10 mg every 6 hours as needed for breakthrough pain. Patient has a follow-up with a pain clinic on coming Tuesday, 03/13. Procalcitonin negative, respiratory viral panel negative, urine Legionella bacterial antigen negative. Follow-up blood cultures. Continue normal saline at 125 cc/h. Troponin cycled negative. Echocardiogram shows normal EF without regional wall motion abnormality. Last cardiac cath from 2021 showed nonobstructive CAD. (2) Nausea & vomiting: Resolved. Tolerating regular diet. Lipase is normal. Continue Protonix, Zofran as needed. (3) Acute kidney injury superimposed on CKD: Baseline creatinine 1.2-1.4. Creatinine back to baseline today. Appreciate urine studies. Continue with fluid as above. Monitor renal functions daily. (4) Resistant hypertension: (5) DM2 (diabetes mellitus, type 2): Recent A1c 5.7. Hold off on sliding scale. Monitor daily on BMP. (6) Post traumatic stress disorder (PTSD): (7) Bipolar 1 disorder: Takes lithium 300 mg every morning and 175 nightly. [place] level is low. Discussed with patient's outpatient pharmacy. She is supposed to be on 450 mg of lithium in the morning and 600 mg of lithium in evening. On confirming with the patient she states her dose will recently decreased by the PCP within last 2 months. Given low lithium levels discussed with her in detail about increasing the dose to 300 mg twice daily along with 150 mg nightly. She is agreeable. Plan Chronic pain management: Takes tizanidine 4 mg 4 times a day, Dilaudid 4-8 mg 4 times a day at home. Increase tizanidine to home dose of 4 mg 4 times daily, Dilaudid 2 mg 4 times daily as needed. Full code will be the DPOA Regular diet Protonix for PUD prophylaxis Heparin 5000 every 12 hourly for DVT prophylaxis. Discharge plan: Will plan to discharge in next 24 hours patient remains hemodynamically stable with a stable blood pressure and is able to ambulate without any episodes of dizziness or unsteadiness. Attestations 2 Medical Necessity Statement*: Requires further hospitalization for management of soft blood pressures/hypotension in setting of the patient with history of resistant hypertension who was admitted for shock as her pain medications are adjusted given her low blood pressures now Diagnoses Shock R57.9 Nausea & vomiting R11.2 Acute kidney injury superimposed on CKD N17.9; N18.9 Resistant hypertension I10 DM2 (diabetes mellitus, type 2) E11.9 Post traumatic stress disorder (PTSD) F43.10 Bipolar 1 disorder F31.9
[2024-03-11] MEDS: oxyCODONE 10 mg ER (12 HR) Tablet PO ×2 (14:04→19:43)
--- NOTE | 2024-03-11 15:21 | PC.NURSE ---
Per Dr. Brar midodrine 5mg has been stopped.
[2024-03-11] MEDS: lithium carbonate 150 mg Capsule PO (21:27)
[2024-03-11] MEDS: LORazepam 2 mg Tablet PO (21:28)
[2024-03-11] MEDS: diphenhydrAMINE 50 mg/mL SDV 1mL 12.5 MG IVP (21:28)
[2024-03-12] VITALS (17 sets, daily range): BP systolic 91–123; BP diastolic 50–82; PULSE 18–88; RESP 15–20; TEMP 36.4–36.8; O2SAT 93–99
[2024-03-12] MEDS: sodium chloride 0.9% 1,000 ML 125 ML IV ×2 (03:43→12:26)
[2024-03-12] MEDS: oxyCODONE 5 mg IR Tab/Cap 10 MG PO ×3 (03:54→17:41)
[2024-03-12] MEDS: allopurinol 300 mg Tablet PO (06:16)
[2024-03-12] MEDS: lamoTRIgine 100 mg Tablet 200 MG PO (06:16)
[2024-03-12] MEDS: LORazepam 2 mg Tablet 1 MG PO ×2 (06:16→12:26)
[2024-03-12] MEDS: oxyCODONE 10 mg ER (12 HR) Tablet PO ×2 (08:05→16:32)
[2024-03-12] MEDS: levothyroxine 75 mcg Tablet PO (08:05)
[2024-03-12] MEDS: pantoprazole DR 40 mg Tablet PO ×2 (08:05→16:33)
[2024-03-12] MEDS: tizanidine 4 mg Tablet PO ×4 (08:05→20:48)
[2024-03-12] MEDS: lithium carbonate 300 mg Capsule PO ×2 (08:05→20:48)
[2024-03-12] MEDS: heparin 5,000 unit/mL INJ 1 mL 5000 UNIT SUBCUT ×2 (08:06→20:48)
[2024-03-12] MEDS: morphine 4 mg/mL SDV 1 mL 1 MG IVP ×3 (09:21→20:48)
--- NOTE | 2024-03-12 14:28 | PC.NURSE ---
Patient reports slipping off the BSC with pain to right shoulder and hip. Dr Zheng in to see patient. Will obtain xray of shoulder and hip. This event was not witnessed by staff. Patient suffers from chronic back pain and on scheduled/PRN medications to control pain. VS within .
--- NOTE | 2024-03-12 14:56 | XRR_ITS ---
PROCEDURE INFORMATION: Exam: XR Right Hip Exam date and time: 03/12/2024 3:21 PM Age: 44 years old Clinical indication: Injury or trauma; Fall; Blunt trauma (contusions or hematomas); Right; Hip; Additional info: Fall off commode, R hip pain TECHNIQUE: Imaging protocol: Radiologic exam of the right hip. Views: 1 view hip with pelvis when performed. COMPARISON: [place] [id number] 03/08/2024 7:41 PM FINDINGS: Bones/joints: AP and lateral views of the right hip show no fracture or dislocation. Hip joint appears maintained. Visualized adjacent right pelvic bones appear unremarkable. Soft tissues: No significant focal soft tissue abnormality. XR/XR hip RT 2-3V wo/w pel* [id number] IMPRESSION: No fracture or acute osseous abnormality.
--- NOTE | 2024-03-12 14:56 | XRR_ITS ---
PROCEDURE INFORMATION: Exam: XR Left Shoulder Exam date and time: 03/12/2024 3:25 PM Age: 44 years old Clinical indication: Injury or trauma; Fall; Blunt trauma (contusions or hematomas); Shoulder; Left; Additional info: Fall off commode, shoulder pain TECHNIQUE: Imaging protocol: Radiologic exam of the left shoulder. Views: 2 or more views. COMPARISON: CR XR shoulder LT min 2V* [id number] 01/19/2021 10:12 AM FINDINGS: Bones/joints: No fracture or dislocation is seen about the left shoulder. No abnormal widening or separation of the left AC joint. No acute osseous abnormality. Postsurgical hardware noted lower cervical spine. No abnormal soft tissue calcification is seen about the shoulder joint. Soft tissues: No significant focal soft tissue abnormality. XR/XR shoulder LT min 2V* [id number] IMPRESSION: No fracture or dislocation.
--- NOTE | 2024-03-12 17:11 | PC.NURSE ---
Fluids stopped per Dr Zheng. Informed MD that patient is not satisfied with pain control and is not receiving home dosing of pain medications. Also, report that she has been taking her home pain medications for 13years.
--- NOTE | 2024-03-12 19:19 | PC.NURSE ---
pt has icy hot patches on her right hip and her left shoulder, informed patient that the provider order a lidocaine patch for one of those places, patient wants to wait on lidocaine patch until one of the icy hot patches fall off
[2024-03-12] MEDS: lithium carbonate 150 mg Capsule PO (20:48)
[2024-03-12] MEDS: LORazepam 2 mg Tablet PO (20:48)
[2024-03-12] MEDS: lidocaine 5% Patch 1 PATCH TOPICAL (21:34)
--- NOTE | 2024-03-12 22:22 | P.PN_ITS ---
Subjective 2 Subjective: Earlier this afternoon the commode had slipped from under her and she fell down to the ground hurting her shoulder and the outside of her right hip in the process. She denies getting lightheaded while getting up. She states she was doing fine until the commode slipped out from under her. We discussed with her avoiding getting up by herself at current time, asking for assistance, as well as discussed concerns regarding low blood pressures, currently still on IV fluids, concerns number of her medications which can contribute to the low blood pressures including the pain medications, although currently she is needing the pain medications due to also developing new pain after the current fall. It does appear that with switch from hydrocodone to oxycodone her blood pressure is showing some improvement. All of her antihypertensives have been on hold as well. Discussed with her and her regarding holding IV fluids today if blood pressure remains good, monitoring blood pressure further to see if she can go without it. Additionally given the fall with pain in the left shoulder, right hip, discussed obtaining x-rays of both. Both verbalized understanding and agreement with assessment and plan and concerns/limitations. Vitals/I&O/Wt Last Vital Signs Temp 98.1 F 03/12/24 16:40 Pulse 83 03/12/24 19:50 Resp 17 03/12/24 20:48 BP 107/79 03/12/24 19:50 Pulse Ox 97 03/12/24 19:50 O2 Del Method Room Air 03/12/24 19:50 O2 Flow Rate 2 03/12/24 16:40 03/12/24 03/12/24 03/12/24 06:59 14:59 22:59 Intake Total 970.833 / 2210.833 1582 / 1582 620 / 2202 Output Total 3000 / 3000 300 / 300 Balance -9.167 / -641.083 5453 / 1582 320 / 1902 Weight last 48 hrs Weight 86.727 kg Weight 86.183 kg Weight 85.729 kg Physical Exam 2 Narrative: Accompanied by her . Const: COMMON NORMALS: patient oriented x3 and alert GENERAL APPEARANCE: c ooperative ORIENTATION/CONSCIOUSNESS: Yes awake HENMT: COMMON NORMALS: oropharynx normal Neck/C-Spine: COMMON NORMALS: no JVD Resp: COMMON NORMALS: normal respiratory effort and clear to auscultation bilaterally AUSCULTATION: clear to auscultation bilaterally Cardio: COMMON NORMALS: no JVD, regular rhythm, S1 normal heart sound present, S2 normal heart sound present and No murmurs present (Cardio) RHYTHM: regular rhythm HEART SOUNDS: S1 normal heart sound present and S2 normal heart sound present GI: COMMON NORMALS: Normal to inspection, nondistended, normoactive bowel sounds present, Soft to palpation and non-tender PALPATION: Yes Soft to palpation Extremity: COMMON NORMALS: no joint enlargement and no pedal edema OTHER: Pain in the left arm. On PROM, particularly abduction, tolerating gradual/slow horizontal adduction and abduction. Without visible or palpable swelling or dislocation. PROM of the left hip joint causing pain in the right lateral hip area. Neuro: COMMON NORMALS: patient oriented x3 and moves all extremities S ENSORIUM/ORIENTATION: Yes alert Skin: COMMON NORMALS: no rashes or lesions noted GENERAL SKIN EXAM: no rashes or lesions noted Urinary Catheter Management: Reyes: Cath Placed During This Visit: yes, but has since been removed by the nurse Reason for Continuing Indwelling Catheter: Accurate Measurement of Urinary Output in Critically Ill Patients Urinary Catheter Date of Insertion: 03/08/24 Urinary Catheter Time of Insertion: 18:03 Date Urinary Catheter Removed: 03/10/24 Time Urinary Catheter Discontinued: 11:42 Data 03/11/24 05:13 03/11/24 05:13 A&P Assessment and plan (1) Shock: Blood pressure soft, and in the morning as low as 91/50. Discussed with her and her . Concern for hypotension. Offenses, however, several of the medications she is on including as discussed opioid, but also muscle relaxers including tizanidine can lower blood pressure. It is my understanding she has not been able to go without analgesics, and currently with falling down and new pain this is made more difficult still. We discussed monitoring blood pressure, if blood pressure remains soft with discontinuation of IV fluid, giving consideration to cutting down and/or discontinuing tizanidine if possible given on possible adverse effect of hypotension Shock on admission will most likely in setting of dehydration. She is now tolerating oral intake, hold IV fluid. Discussed with nursing staff. Added lidocaine patch for additional relief in the setting of low blood pressure. Reviewed vitals, CBC, CMP, cortisol. Cortisol normal, but only 6.7. Will obtain cosyntropin stim test. Could not tolerate midodrine. Added to list of allergies. Blood pressure does seem to be doing slightly better with oxycodone. At risk of severe hypotension, shock, monitor blood pressures with optimization of pain control, Opioid, muscle relaxer. Has been requiring IV morphine. Started on oxycodone IR 10 mg twice daily along with oxycodone 10 mg every 6 hours as needed for breakthrough pain. Patient has a follow-up with a pain clinic on coming Tuesday, 03/13. Procalcitonin negative, respiratory viral panel negative, urine Legionella bacterial antigen negative. Follow-up blood cultures. Troponin cycled negative. Reviewed Echocardiogram shows normal EF without regional wall motion abnormality. Last cardiac cath from 2021 showed nonobstructive CAD. (2) Nausea & vomiting: Resolved. Tolerating regular diet. Lipase is normal. Continue Protonix, Zofran as needed. (3) Acute kidney injury superimposed on CKD: Baseline creatinine 1.2-1.4. Creatinine back to baseline today. Appreciate urine studies. Continue with fluid as above. Monitor renal functions daily. (4) Resistant hypertension: (5) DM2 (diabetes mellitus, type 2): Recent A1c 5.7. Hold off on sliding scale. Monitor daily on BMP. (6) Post traumatic stress disorder (PTSD): (7) Bipolar 1 disorder: Takes lithium 300 mg every morning and 175 nightly. [place] level is low. Discussed with patient's outpatient pharmacy. She is supposed to be on 450 mg of lithium in the morning and 600 mg of lithium in evening. On confirming with the patient she states her dose will recently decreased by the PCP within last 2 months. Given low lithium levels discussed with her in detail about increasing the dose to 300 mg twice daily along with 150 mg nightly. She is agreeable. Plan Fall: Describes a fall this afternoon with the commode slipping from under her while getting off, falling to the floor in the process, hurting her left shoulder, outside right hip. Pain in the left arm. On PROM, requesting shoulder x-ray. Pain in the outside/lateral right hip on PROM. Requesting hip x-ray. Up with assistance. PT assessment. Lidocaine patch in addition to current analgesic regimen. Chronic pain management: Takes tizanidine 4 mg 4 times a day, Dilaudid 4-8 mg 4 times a day at home. Increase tizanidine to home dose of 4 mg 4 times daily, Dilaudid 2 mg 4 times daily as needed. Full code will be the DPOA Regular diet Protonix for PUD prophylaxis Heparin 5000 every 12 hourly for DVT prophylaxis. Discharge plan: Will plan to discharge in next 24 hours patient remains hemodynamically stable with a stable blood pressure and is able to ambulate without any episodes of dizziness or unsteadiness. Attestations 2 Medical Necessity Statement*: Continue admission for assessment of hypotension, optimization of pain control given limitations of hypotension, risk of shock, organ injury, assessment after fall. Diagnoses Shock R57.9 Nausea & vomiting R11.2 Acute kidney injury superimposed on CKD N17.9; N18.9 Resistant hypertension I10 DM2 (diabetes mellitus, type 2) E11.9 Post traumatic stress disorder (PTSD) F43.10 Bipolar 1 disorder F31.9
[2024-03-13] VITALS (49 sets, daily range): BP systolic 78–147; BP diastolic 44–102; PULSE 73–95; RESP 9–38; TEMP 36.4–36.6; O2SAT 92–100
[2024-03-13] MEDS: sodium chloride 0.9% 1,000 ML 999 ML IV (00:16)
[2024-03-13 00:17] LABS: Cosyntropin Baseline 6.17 mcg/dL
--- NOTE | 2024-03-13 00:19 | PC.NURSE ---
Patient was informed that no pain meds are able to be given at this time due to low blood pressure at 78/44, patient is currently rating pain at 6/10. Provider contacted about low blood pressure, MD gave verbal order to give 1L bolus and contact MD after done about blood pressure. orders entered and started.
[2024-03-13] MEDS: cosyntropin 0.25 mg SDV IVP (01:00)
[2024-03-13] MEDS: oxyCODONE 5 mg IR Tab/Cap 10 MG PO ×3 (01:13→22:17)
[2024-03-13 02:04] LABS: Cosyntropin 30 Minute 15.54 mcg/dL
[2024-03-13 02:14] LABS: Basophils % 0.5 %; Eosinophils # 0.1 10^3/uL (0.0-0.8); Hematocrit 34.2 % (36-47); Lymphocytes # 1.6 10^3/uL (0.8-4.8); Lymphocytes % 37.7 %; Mean Corpuscular HGB Conc 30.1 g/dL (30-55); Mean Corpuscular Hemoglobin 28.6 pg (27-33); Mean Platelet Volume 11.5 fL (7.4-10.4); Monocytes # 0.3 10^3/uL (0.2-0.9); Monocytes % 7.5 %; Neutrophils # 2.17 10^3/uL (1.8-7.7); Neutrophils % 50.8 %; Nucleated Red Blood Cells % 0 %; Platelet Count 157 10^3/cmm (157-399); Red Cell Distribution Width 15.8 % (12.1-15.1); White Blood Count 4.27 10^3/uL (3.29-11.43)
[2024-03-13 02:46] LABS: Anion Gap 11.9 (5-19); Blood Urea Nitrogen 5 mg/dL (6-20); Calcium 8.3 mg/dL (8.5-10.5); Carbon Dioxide 25 mmol/L (22-29); Chloride 106 mmol/L (98-107); Cosyntropin 1 Hour 18.95 mcg/dL; Glomerular Filtration Rate 48.4 mL/min (90-130); Glucose 97 mg/dL (65-115); Osmolality Calculated 285 mOsm/kg (285-295); Potassium 3.9 mmol/L (3.5-5.1); Sodium 139 mmol/L (136-145)
[2024-03-13] MEDS: morphine 4 mg/mL SDV 1 mL 1 MG IVP ×3 (04:22→20:07)
[2024-03-13] MEDS: allopurinol 300 mg Tablet PO (04:59)
[2024-03-13] MEDS: LORazepam 2 mg Tablet 1 MG PO ×2 (04:59→13:30)
[2024-03-13] MEDS: lamoTRIgine 100 mg Tablet 200 MG PO (04:59)
[2024-03-13] MEDS: heparin 5,000 unit/mL INJ 1 mL 5000 UNIT SUBCUT ×2 (08:20→20:07)
[2024-03-13] MEDS: oxyCODONE 10 mg ER (12 HR) Tablet PO ×2 (08:21→17:59)
[2024-03-13] MEDS: pantoprazole DR 40 mg Tablet PO ×2 (08:22→17:59)
[2024-03-13] MEDS: tizanidine 4 mg Tablet PO ×4 (08:22→20:08)
[2024-03-13] MEDS: lithium carbonate 300 mg Capsule PO ×2 (08:22→20:08)
[2024-03-13] MEDS: levothyroxine 75 mcg Tablet PO (08:22)
--- NOTE | 2024-03-13 13:01 | CT_ITS ---
WS: [id number] Noncontrast CT LEFT shoulder TECHNIQUE: Noncontrast CT LEFT shoulder with coronal and sagittal reformatted images. CLINICAL INFORMATION: fall, pain DLP: 449.[address] scans at [facility] use at least one of these dose optimization techniques: automated e xposure control; mA and/or kV adjustment per patient size (includes targeted exams where dose is matc hed to clinical indication); or iterative reconstruction. FINDINGS: Mild degenerative arthritis at the AC joint. Subacromial space is preserved. Distal clavicle appears normal. Normal acromion. Humeral head appears normal. Humeral neck appears normal. Proximal humeral s haft is normal in appearance. Normal glenoid. No acute fractures. Visualized LEFT lung is well aerated. CT/CT shoulder LT wo con* [id number] IMPRESSION: No acute fractures
--- NOTE | 2024-03-13 13:01 | CT_ITS ---
WS: [id number] Noncontrast CT RIGHT hip TECHNIQUE: Noncontrast CT RIGHT hip with coronal and sagittal reformatted images. CLINICAL INFORMATION: fall, R lateral pain DLP: 381.[address] scans at [facility] use at least one of these dose optimization techniques: automated e xposure control; mA and/or kV adjustment per patient size (includes targeted exams where dose is matc hed to clinical indication); or iterative reconstruction. FINDINGS: Mild to moderate degenerative arthritis RIGHT hip. No acute fractures. No significant joint effusion. Degenerative arthritis RIGHT sacroiliac joint. Normal visualized RIGHT pubic rami. Degenerative arth ritis at the pubic symphysis. CT/CT hip RT wo con* [id number] IMPRESSION: No acute RIGHT hip fractures
--- NOTE | 2024-03-13 15:40 | PC.NURSE ---
Morphine given at this time for complaints of pain in lower back and hips
[2024-03-13] MEDS: lithium carbonate 150 mg Capsule PO (20:08)
[2024-03-13] MEDS: LORazepam 2 mg Tablet PO (20:08)
--- NOTE | 2024-03-13 21:24 | P.PN_ITS ---
Subjective 2 Subjective: Blood pressure is hypotensive last night she had to have a bolus. Today blood pressure somewhat better but she tells me with fluctuation. She is still hurting in her left shoulder and right hip. Vitals/I&O/Wt Last Vital Signs Temp 97.6 F 03/13/24 20:00 Pulse 84 03/13/24 20:00 Resp 16 03/13/24 20:07 BP 111/80 03/13/24 20:00 Pulse Ox 100 03/13/24 20:00 O2 Del Method Room Air 03/13/24 20:00 O2 Flow Rate 2 03/12/24 16:40 03/13/24 03/13/24 03/13/24 06:59 14:59 22:59 Intake Total 1000 / 3442 900 / 900 480 / 1380 Output Total 1100 / 1400 1800 / 1800 Balance -100 / 2042 -900 / -900 480 / -420 Weight last 48 hrs Weight 87.997 kg Weight 87.09 kg Weight 86.727 kg Physical Exam 2 Const: COMMON NORMALS: patient oriented x3 and alert GENERAL APPEARANCE: c ooperative ORIENTATION/CONSCIOUSNESS: Yes awake HENMT: COMMON NORMALS: oropharynx normal Neck/C-Spine: COMMON NORMALS: no JVD Resp: COMMON NORMALS: normal respiratory effort and clear to auscultation bilaterally AUSCULTATION: clear to auscultation bilaterally Cardio: COMMON NORMALS: no JVD, regular rhythm, S1 normal heart sound present, S2 normal heart sound present and No murmurs present (Cardio) RHYTHM: regular rhythm HEART SOUNDS: S1 normal heart sound present and S2 normal heart sound present GI: COMMON NORMALS: Normal to inspection, nondistended, normoactive bowel sounds present, Soft to palpation and non-tender PALPATION: Yes Soft to palpation Extremity: COMMON NORMALS: no joint enlargement and no pedal edema OTHER: Pain in the left arm. On PROM, particularly abduction, tolerating gradual/slow horizontal adduction and abduction. Without visible or palpable swelling or dislocation. PROM of the left hip joint causing pain in the right lateral hip area. Neuro: COMMON NORMALS: patient oriented x3 and moves all extremities S ENSORIUM/ORIENTATION: Yes alert Skin: COMMON NORMALS: no rashes or lesions noted GENERAL SKIN EXAM: no rashes or lesions noted Urinary Catheter Management: Reyes: Cath Placed During This Visit: yes, but has since been removed by the nurse Reason for Continuing Indwelling Catheter: Accurate Measurement of Urinary Output in Critically Ill Patients Urinary Catheter Date of Insertion: 03/08/24 Urinary Catheter Time of Insertion: 18:03 Date Urinary Catheter Removed: 03/10/24 Time Urinary Catheter Discontinued: 11:42 Data 03/13/24 02:00 03/13/24 02:00 Micro: Microbiology 03/08/24 18:56 Blood Culture - Final Blood NO GROWTH AFTER 5 DAYS 03/08/24 18:49 Blood Culture - Final Blood NO GROWTH AFTER 5 DAYS A&P Assessment and plan (1) Fall: Still significant pain in the left shoulder, right hip. Discussed obtaining additional imaging with CT scans. She would like to proceed. Requested. Still requiring significant pain medications, including scheduled oxycodone, with as needed oxycodone, as well as IV morphine. Continue receiving lorazepam, tizanidine. Lidocaine patch. Acetaminophen as needed. (2) Shock: Was not required fluid bolus today blood pressure is better although with some fluctuation. Discussed with her further considerations during additional monitoring, possibly or one of the other medications that may be contributing to low blood pressures. Reviewed cosyntropin stimulation test. Reviewed CBC, BMP. Adequate cortisol response. Assess blood pressures. Discussed with case picker. Could not tolerate midodrine. Added to list of allergies. Blood pressure does seem to be doing slightly better with oxycodone. At risk of severe hypotension, shock, monitor blood pressures with optimization of pain control, Opioid, muscle relaxer. Has been requiring IV morphine. Started on oxycodone IR 10 mg twice daily along with oxycodone 10 mg every 6 hours as needed for breakthrough pain. Patient has a follow-up with a pain clinic on coming Tuesday, 03/13. Procalcitonin negative, respiratory viral panel negative, urine Legionella bacterial antigen negative. Follow-up blood cultures. Troponin cycled negative. Reviewed Echocardiogram shows normal EF without regional wall motion abnormality. Last cardiac cath from 2021 showed nonobstructive CAD. (3) Nausea & vomiting: Resolved. Tolerating regular diet. Lipase is normal. Continue Protonix, Zofran as needed. (4) Acute kidney injury superimposed on CKD: Baseline creatinine 1.2-1.4. Creatinine back to baseline today. Appreciate urine studies. Continue with fluid as above. Monitor renal functions daily. (5) Resistant hypertension: (6) DM2 (diabetes mellitus, type 2): Recent A1c 5.7. Hold off on sliding scale. Monitor daily on BMP. (7) Post traumatic stress disorder (PTSD): (8) Bipolar 1 disorder: Takes lithium 300 mg every morning and 175 nightly. [place] level is low. Discussed with patient's outpatient pharmacy. She is supposed to be on 450 mg of lithium in the morning and 600 mg of lithium in evening. On confirming with the patient she states her dose will recently decreased by the PCP within last 2 months. Given low lithium levels discussed with her in detail about increasing the dose to 300 mg twice daily along with 150 mg nightly. She is agreeable. Plan Chronic pain management: Takes tizanidine 4 mg 4 times a day, Dilaudid 4-8 mg 4 times a day at home. Increase tizanidine to home dose of 4 mg 4 times daily, Dilaudid 2 mg 4 times daily as needed. Full code will be the DPOA Regular diet Protonix for PUD prophylaxis Heparin 5000 every 12 hourly for DVT prophylaxis. Discharge plan: Will plan to discharge in next 24 hours patient remains hemodynamically stable with a stable blood pressure and is able to ambulate without any episodes of dizziness or unsteadiness. Attestations 2 Medical Necessity Statement*: Continue admission for assessment of hypotension, optimization of pain control given limitations of hypotension, risk of shock, organ injury, assessment after fall. Diagnoses Fall W19.XXXA Shock R57.9 Nausea & vomiting R11.2 Acute kidney injury superimposed on CKD N17.9; N18.9 Resistant hypertension I10 DM2 (diabetes mellitus, type 2) E11.9 Post traumatic stress disorder (PTSD) F43.10 Bipolar 1 disorder F31.9
[2024-03-13] MEDS: lidocaine 5% Patch 1 PATCH TOPICAL (22:19)
[2024-03-14] VITALS (68 sets, daily range): BP systolic 71–152; BP diastolic 45–102; PULSE 65–81; RESP 12–18; TEMP 36.1–36.8; O2SAT 91–100
[2024-03-14] MEDS: sodium chloride 0.9% 1,000 ML 999 ML IV (00:23)
--- NOTE | 2024-03-14 00:33 | PC.NURSE ---
patients blood pressure decreased to 71/39, this nurse called the provider, provider ordered a 1 liter NS bolus, orders entered.
[2024-03-14] MEDS: sodium chloride 0.9% 1,000 ML 125 ML IV (01:42)
[2024-03-14 03:06] LABS: Basophils % 0.8 %; Eosinophils # 0.1 10^3/uL (0.0-0.8); Eosinophils % 2.5 %; Hematocrit 34.8 % (36-47); Lymphocytes # 2.1 10^3/uL (0.8-4.8); Lymphocytes % 42.6 %; Mean Corpuscular HGB Conc 30.2 g/dL (30-55); Mean Corpuscular Hemoglobin 28.6 pg (27-33); Mean Corpuscular Volume 94.8 fl (85-98); Mean Platelet Volume 12.1 fL (7.4-10.4); Monocytes # 0.3 10^3/uL (0.2-0.9); Monocytes % 6.2 %; Neutrophils # 2.29 10^3/uL (1.8-7.7); Neutrophils % 47.7 %; Nucleated Red Blood Cells % 0 %; Platelet Count 169 10^3/cmm (157-399); Red Blood Count 3.67 10^6/uL (3.85-5.65); Red Cell Distribution Width 15.9 % (12.1-15.1); White Blood Count 4.81 10^3/uL (3.29-11.43)
[2024-03-14 03:29] LABS: Anion Gap 13.6 (5-19); Blood Urea Nitrogen 6 mg/dL (6-20); Calcium 8.7 mg/dL (8.5-10.5); Carbon Dioxide 26 mmol/L (22-29); Chloride 103 mmol/L (98-107); Creatinine Clr Calc Pharmacy 59.2411; Glomerular Filtration Rate 44.1 mL/min (90-130); Glucose 119 mg/dL (65-115); Osmolality Calculated 287 mOsm/kg (285-295); Potassium 3.6 mmol/L (3.5-5.1); Sodium 139 mmol/L (136-145)
[2024-03-14] MEDS: lamoTRIgine 100 mg Tablet 200 MG PO (05:26)
[2024-03-14] MEDS: allopurinol 300 mg Tablet PO (05:26)
[2024-03-14] MEDS: LORazepam 2 mg Tablet 1 MG PO ×2 (05:26→12:09)
[2024-03-14] MEDS: morphine 4 mg/mL SDV 1 mL 1 MG IVP (05:40)
[2024-03-14] MEDS: heparin 5,000 unit/mL INJ 1 mL 5000 UNIT SUBCUT ×2 (08:07→20:14)
[2024-03-14] MEDS: lithium carbonate 300 mg Capsule PO ×2 (08:07→21:23)
[2024-03-14] MEDS: oxyCODONE 10 mg ER (12 HR) Tablet PO ×2 (08:08→18:20)
[2024-03-14] MEDS: levothyroxine 75 mcg Tablet PO (08:08)
[2024-03-14] MEDS: pantoprazole DR 40 mg Tablet PO ×2 (08:08→18:19)
[2024-03-14] MEDS: tizanidine 4 mg Tablet PO (08:08)
[2024-03-14] MEDS: ondansetron 2 mg/ML SDV 2 mL 4 MG IVP (08:59)
[2024-03-14] MEDS: tizanidine 4 mg Tablet 2 MG PO ×3 (12:09→21:23)
--- NOTE | 2024-03-14 15:12 | P.PN_ITS ---
Subjective 2 Subjective: She is doing a little better. She is ambulating in the room, discussed with her to seek assistance while up given her recent injuries. She is feeling a bit better. She did again have a decrease in blood pressure last night requiring additional bolus. We discussed with her decreasing tizanidine dose, as well as stopping IV morphine given recurrent episodes of hypotension, particularly at night when she receives as per discussion with no medications around 6 and 8 PM including oxycodone, at 6 and 8 PM, tizanidine, lorazepam, IV morphine at 8 PM. We have decreased tizanidine dose to 2 mg avoiding stopping it cold turkey to avoid withdrawal, and given considerations about returning home are as per discussion also discontinuing IV morphine. Vitals/I&O/Wt Last Vital Signs Temp 96.9 F L 03/14/24 12:00 Pulse 81 03/14/24 12:00 Resp 18 03/14/24 12:00 BP 128/78 03/14/24 12:00 Pulse Ox 97 03/14/24 11:39 O2 Del Method Room Air 03/14/24 11:39 O2 Flow Rate 2 03/12/24 16:40 03/14/24 03/14/24 03/14/24 06:59 14:59 22:59 Intake Total 1999 1720 / 1720 Output Total 200 / 200 Balance 1999 1520 / 1520 Weight last 48 hrs Weight 87.997 kg Weight 87.997 kg Weight 87.09 kg Physical Exam 2 Narrative: Accompanied by her . Const: COMMON NORMALS: patient oriented x3 and alert GENERAL APPEARANCE: c ooperative ORIENTATION/CONSCIOUSNESS: Yes awake HENMT: COMMON NORMALS: oropharynx normal Neck/C-Spine: COMMON NORMALS: no JVD Resp: COMMON NORMALS: normal respiratory effort and clear to auscultation bilaterally AUSCULTATION: clear to auscultation bilaterally Cardio: COMMON NORMALS: no JVD, regular rhythm, S1 normal heart sound present, S2 normal heart sound present and No murmurs present (Cardio) RHYTHM: regular rhythm HEART SOUNDS: S1 normal heart sound present and S2 normal heart sound present GI: COMMON NORMALS: Normal to inspection, nondistended, normoactive bowel sounds present, Soft to palpation and non-tender PALPATION: Yes Soft to palpation Extremity: COMMON NORMALS: no joint enlargement and no pedal edema OTHER: Pain in the left arm. On PROM, particularly abduction, tolerating gradual/slow horizontal adduction and abduction. Without visible or palpable swelling or dislocation. PROM of the left hip joint causing pain in the right lateral hip area. Neuro: COMMON NORMALS: patient oriented x3 and moves all extremities S ENSORIUM/ORIENTATION: Yes alert Skin: COMMON NORMALS: no rashes or lesions noted GENERAL SKIN EXAM: no rashes or lesions noted Urinary Catheter Management: Reyes: Cath Placed During This Visit: yes, but has since been removed by the nurse Reason for Continuing Indwelling Catheter: Accurate Measurement of Urinary Output in Critically Ill Patients Urinary Catheter Date of Insertion: 03/08/24 Urinary Catheter Time of Insertion: 18:03 Date Urinary Catheter Removed: 03/10/24 Time Urinary Catheter Discontinued: 11:42 Data 03/14/24 02:09 03/14/24 02:09 Micro: Microbiology 03/14/24 02:14 Blood Culture - Preliminary Blood SPECIMEN COLLECTED 03/14/24 02:09 Blood Culture - Preliminary Blood SPECIMEN COLLECTED 03/08/24 18:56 Blood Culture - Final Blood NO GROWTH AFTER 5 DAYS 03/08/24 18:49 Blood Culture - Final Blood NO GROWTH AFTER 5 DAYS A&P Assessment and plan (1) Shock: Additional episode of hypotension down to 70 systolic blood pressure, risk of further kidney injury, creatinine did come up to 1.3 again, required bolus. Discussed with her seems despite adequate hydration still having episodes of hypotension specifically this appears to be around midnight, discussing with her her medication schedule she appears to get oxycodone at 6 PM, as well as 8 PM, then additionally at 8 PM also receives IV morphine, tizanidine and Ativan. As per discussion we cut down tizanidine dose to 2 mg, will not stop cold turkey due to risk of withdrawal. Additionally discussed discontinuing 1 more medication, at current time we will stop IV morphine and reassess, however, additional medication may need to be cut down or stopped to prevent further episodes of hypotension, and appears shock with endorgan injury with kidney injury. Discussed with telehealth case manager. Discharge deferred for now. Reassess, consideration return home tomorrow if maintaining blood pressure. Could not tolerate midodrine. Added to list of allergies. Blood pressure does seem to be doing slightly better with oxycodone. At risk of severe hypotension, shock, monitor blood pressures with optimization of pain control, Opioid, muscle relaxer. Has been requiring IV morphine. Started on oxycodone IR 10 mg twice daily along with oxycodone 10 mg every 6 hours as needed for breakthrough pain. Patient has a follow-up with a pain clinic on coming Tuesday, 03/13. Procalcitonin negative, respiratory viral panel negative, urine Legionella bacterial antigen negative. Follow-up blood cultures. Troponin cycled negative. Reviewed Echocardiogram shows normal EF without regional wall motion abnormality. Last cardiac cath from 2021 showed nonobstructive CAD. (2) Fall: Reviewed CT left shoulder, right hip, no fracture or obvious injury there. Discussed with her possibly contusion versus sprain, her symptoms are showing improvement. Reviewed PT evaluation. She did well, 300 feet independently. Still significant pain in the left shoulder, right hip. Discussed obtaining additional imaging with CT scans. She would like to proceed. Requested. Still requiring significant pain medications, including scheduled oxycodone, with as needed oxycodone, as well as IV morphine. Continue receiving lorazepam, tizanidine. Lidocaine patch. Acetaminophen as needed. (3) Nausea & vomiting: Resolved. Tolerating regular diet. Lipase is normal. Continue Protonix, Zofran as needed. (4) Acute kidney injury superimposed on CKD: Baseline creatinine 1.2-1.4. Creatinine back to baseline today. Appreciate urine studies. Continue with fluid as above. Monitor renal functions daily. (5) Resistant hypertension: (6) DM2 (diabetes mellitus, type 2): Recent A1c 5.7. Hold off on sliding scale. Monitor daily on BMP. (7) Post traumatic stress disorder (PTSD): (8) Bipolar 1 disorder: Takes lithium 300 mg every morning and 175 nightly. [place] level is low. Discussed with patient's outpatient pharmacy. She is supposed to be on 450 mg of lithium in the morning and 600 mg of lithium in evening. On confirming with the patient she states her dose will recently decreased by the PCP within last 2 months. Given low lithium levels discussed with her in detail about increasing the dose to 300 mg twice daily along with 150 mg nightly. She is agreeable. Plan Chronic pain management: Takes tizanidine 4 mg 4 times a day, Dilaudid 4-8 mg 4 times a day at home. Increase tizanidine to home dose of 4 mg 4 times daily, Dilaudid 2 mg 4 times daily as needed. Full code will be the DPOA Regular diet Protonix for PUD prophylaxis Heparin 5000 every 12 hourly for DVT prophylaxis. Discharge plan: Will plan to discharge in next 24 hours patient remains hemodynamically stable with a stable blood pressure and is able to ambulate without any episodes of dizziness or unsteadiness. Attestations 2 Medical Necessity Statement*: Continue admission for assessment of hypotension, shock, with kidney injury, risk of further kidney injury, optimization of pain control regimen with polypharmacy with high risk medications. and High MDM includes amount and/or complexity of data reviewed/ordered [ resulted lab(s)/test(s) and ordered lab(s)/test(s)] as documented Diagnoses Shock R57.9 Fall W19.XXXA Nausea & vomiting R11.2 Acute kidney injury superimposed on CKD N17.9; N18.9 Resistant hypertension I10 DM2 (diabetes mellitus, type 2) E11.9 Post traumatic stress disorder (PTSD) F43.10 Bipolar 1 disorder F31.9
[2024-03-14] MEDS: oxyCODONE 5 mg IR Tab/Cap 10 MG PO ×2 (15:22→21:22)
[2024-03-14] MEDS: lithium carbonate 150 mg Capsule PO (21:22)
[2024-03-14] MEDS: LORazepam 2 mg Tablet PO (21:23)
[2024-03-15] VITALS (36 sets, daily range): BP systolic 73–152; BP diastolic 44–102; PULSE 69–80; RESP 9–20; TEMP 36.3–36.6; O2SAT 92–98; BMI 32.3
[2024-03-15 04:58] LABS: Basophils # 0.1 10^3/uL (0.0-0.1); Basophils % 0.8 %; Eosinophils # 0.1 10^3/uL (0.0-0.8); Eosinophils % 2.3 %; Hematocrit 42.2 % (36-47); Lymphocytes # 2.6 10^3/uL (0.8-4.8); Lymphocytes % 42.1 %; Mean Corpuscular HGB Conc 30.1 g/dL (30-55); Mean Corpuscular Hemoglobin 28.9 pg (27-33); Mean Corpuscular Volume 95.9 fl (85-98); Mean Platelet Volume 11.4 fL (7.4-10.4); Monocytes # 0.5 10^3/uL (0.2-0.9); Monocytes % 7.9 %; Neutrophils # 2.81 10^3/uL (1.8-7.7); Neutrophils % 46.4 %; Nucleated Red Blood Cells % 0 %; Platelet Count 207 10^3/cmm (157-399); Red Cell Distribution Width 16.3 % (12.1-15.1); White Blood Count 6.06 10^3/uL (3.29-11.43)
[2024-03-15 05:19] LABS: Anion Gap 14.7 (5-19); Blood Urea Nitrogen 5 mg/dL (6-20); Calcium 9.5 mg/dL (8.5-10.5); Carbon Dioxide 28 mmol/L (22-29); Chloride 102 mmol/L (98-107); Creatinine Clr Calc Pharmacy 64.1778; Glomerular Filtration Rate 48.4 mL/min (90-130); Glucose 77 mg/dL (65-115); Osmolality Calculated 288 mOsm/kg (285-295); Potassium 3.7 mmol/L (3.5-5.1); Sodium 141 mmol/L (136-145)
[2024-03-15] MEDS: LORazepam 2 mg Tablet 1 MG PO ×2 (06:33→12:04)
[2024-03-15] MEDS: lamoTRIgine 100 mg Tablet 200 MG PO (06:33)
[2024-03-15] MEDS: allopurinol 300 mg Tablet PO (06:33)
[2024-03-15] MEDS: oxyCODONE 5 mg IR Tab/Cap 10 MG PO ×3 (06:39→18:35)
[2024-03-15] MEDS: oxyCODONE 10 mg ER (12 HR) Tablet PO ×2 (08:58→17:45)
[2024-03-15] MEDS: levothyroxine 75 mcg Tablet PO (08:59)
[2024-03-15] MEDS: tizanidine 4 mg Tablet 2 MG PO ×4 (08:59→21:17)
[2024-03-15] MEDS: pantoprazole DR 40 mg Tablet PO ×2 (08:59→17:45)
[2024-03-15] MEDS: lithium carbonate 300 mg Capsule PO ×2 (08:59→21:17)
[2024-03-15] MEDS: heparin 5,000 unit/mL INJ 1 mL 5000 UNIT SUBCUT ×2 (09:04→21:16)
[2024-03-15 15:05] LABS: Methicillin-Resist S.aureu PCR NOT DETECTED (NOT DETECTED)
--- NOTE | 2024-03-15 19:41 | PM.PN ---
Subjective Subjective: Her blood pressure dipped down this morning. She did do better last night. However, this morning had to be restarted on fluids. Blood pressure down to 73/44. Feeling better in the afternoon. Still requiring for medication. With risks of hypotension and agreeable with discontinuation of IV morphine and reduced dose tizanidine. We further discussed consideration of additional options, consideration of fludrocortisone including risks, possible benefits. Vitals/I&O/Wt Last Vital Signs Temp 97.9 F 03/15/24 16:00 Pulse 78 03/15/24 16:00 Resp 18 03/15/24 18:35 BP 108/82 03/15/24 16:00 Pulse Ox 93 03/15/24 18:35 O2 Del Method Room Air 03/15/24 16:00 O2 Flow Rate 2 03/12/24 16:40 03/15/24 03/15/24 03/15/24 06:59 14:59 22:59 Intake Total 960 / 960 Balance 960 / 960 Weight last 48 hrs Weight 87.997 kg Weight 87.997 kg Weight 87.997 kg Physical Exam Narrative: Sitting up at bedside. Const: COMMON NORMALS: patient oriented x3 and alert GENERAL APPEARANCE: cooperative ORIENTATION/CONSCIOUSNESS: Yes awake HENMT: COMMON NORMALS: oropharynx normal Neck/C-Spine: COMMON NORMALS: no JVD Resp: COMMON NORMALS: normal respiratory effort and clear to auscultation bilaterally AUSCULTATION: clear to auscultation bilaterally Cardio: COMMON NORMALS: no JVD, regular rhythm, S1 normal heart sound present, S2 normal heart sound present and No murmurs present (Cardio) RHYTHM: regular rhythm HEART SOUNDS: S1 normal heart sound present and S2 normal heart sound present GI: COMMON NORMALS: Normal to inspection, nondistended, normoactive bowel sounds present, Soft to palpation and non-tender PALPATION: Yes Soft to palpation Extremity: COMMON NORMALS: no joint enlargement and no pedal edema Neuro: COMMON NORMALS: patient oriented x3 and moves all extremities SENSORIUM/ORIENTATION: Yes alert Skin: COMMON NORMALS: no rashes or lesions noted GENERAL SKIN EXAM: no rashes or lesions noted Urinary Catheter Management: Reyes: Cath Placed During This Visit: yes, but has since been removed by the nurse Reason for Continuing Indwelling Catheter: Accurate Measurement of Urinary Output in Critically Ill Patients Urinary Catheter Date of Insertion: 03/08/24 Urinary Catheter Time of Insertion: 18:03 Date Urinary Catheter Removed: 03/10/24 Time Urinary Catheter Discontinued: 11:42 Data 03/15/24 03:59 03/15/24 03:59 Micro: Microbiology 03/14/24 02:14 Blood Culture - Preliminary Blood NEGATIVE TO DATE 03/14/24 02:09 Blood Culture - Preliminary Blood NEGATIVE TO DATE A&P Assessment and plan (1) Shock: Did much better last night without further dipped low blood pressure at midnight in fact somewhat hypertensive, but this morning blood pressure down to 73/44. Given dips into shock requiring hemodynamic support with IV fluid, with kidney dysfunction and risk of further kidney injury, other organ dysfunction, discussed options of proceeding forward, she is still needing pain medications for pain control. We discussed regarding addition of fludrocortisone and potential risks. She is agreeable to start. Added for tonight. Will hold additional fluids at this time, start oral cortisone at 0.1. Reassess blood pressures. Follow-up CBC. Follow-up renal function. Reviewed blood cultures, preliminary remaining negative from 03/14. Blood cultures from 03/08 negative. Additional episode of hypotension down to 70 systolic blood pressure, risk of further kidney injury, required IVF. At risk of shock with endorgan injury with kidney injury. Discussed with employment evaluator/case manager. Could not tolerate midodrine. Added to list of allergies. Blood pressure does seem to be doing slightly better with oxycodone. At risk of severe hypotension, shock, monitor blood pressures with optimization of pain control, Opioid, muscle relaxer. Has been requiring IV morphine. Started on oxycodone IR 10 mg twice daily along with oxycodone 10 mg every 6 hours as needed for breakthrough pain. Patient has a follow-up with a pain clinic on coming Tuesday, 03/13. Procalcitonin negative, respiratory viral panel negative, urine Legionella bacterial antigen negative. Follow-up blood cultures. Troponin cycled negative. Reviewed Echocardiogram shows normal EF without regional wall motion abnormality. Last cardiac cath from 2021 showed nonobstructive CAD. (2) Fall: Pain with gradual improvement. Discussed with employment evaluator/case manager. Plans otherwise to return home. Reviewed CT left shoulder, right hip, no fracture or obvious injury there. Discussed with her possibly contusion versus sprain, her symptoms are showing improvement. Reviewed PT evaluation. She did well, 300 feet independently. Still significant pain in the left shoulder, right hip. Discussed obtaining additional imaging with CT scans. She would like to proceed. Requested. Still requiring significant pain medications, including scheduled oxycodone, with as needed oxycodone, as well as IV morphine. Continue receiving lorazepam, tizanidine. Lidocaine patch. Acetaminophen as needed. (3) Nausea & vomiting: Resolved. Tolerating regular diet. Lipase is normal. Continue Protonix, Zofran as needed. (4) Acute kidney injury superimposed on CKD: Baseline creatinine 1.2-1.4. Creatinine back to baseline today. Appreciate urine studies. Continue with fluid as above. Monitor renal functions daily. (5) Resistant hypertension: (6) DM2 (diabetes mellitus, type 2): Recent A1c 5.7. Hold off on sliding scale. Monitor daily on BMP. (7) Post traumatic stress disorder (PTSD): (8) Bipolar 1 disorder: Takes lithium 300 mg every morning and 175 nightly. Calcium level is low. Discussed with patient's outpatient pharmacy. She is supposed to be on 450 mg of lithium in the morning and 600 mg of lithium in evening. On confirming with the patient she states her dose will recently decreased by the PCP within last 2 months. Given low lithium levels discussed with her in detail about increasing the dose to 300 mg twice daily along with 150 mg nightly. She is agreeable. Plan Chronic pain management Full code will be the DPOA Regular diet Protonix for PUD prophylaxis Heparin 5000 every 12 hourly for DVT prophylaxis. Attestations Medical Necessity Statement*: Continue admission for assessment of hypotension, shock, with kidney injury, risk of further kidney injury, optimization of pain control regimen with polypharmacy with high risk medications. Diagnoses Shock R57.9 Fall W19.XXXA Nausea & vomiting R11.2 Acute kidney injury superimposed on CKD N17.9; N18.9 Resistant hypertension I10 DM2 (diabetes mellitus, type 2) E11.9 Post traumatic stress disorder (PTSD) F43.10 Bipolar 1 disorder F31.9
[2024-03-15] MEDS: LORazepam 2 mg Tablet PO (21:17)
[2024-03-15] MEDS: fludrocortisone 0.1 mg Tablet PO (21:17)
[2024-03-15] MEDS: lithium carbonate 150 mg Capsule PO (21:17)
[2024-03-16] VITALS (9 sets, daily range): BP systolic 108–136; BP diastolic 56–92; PULSE 73–81; RESP 9–18; TEMP 36.4–36.8; O2SAT 95–98
[2024-03-16] MEDS: oxyCODONE 5 mg IR Tab/Cap 10 MG PO ×2 (00:33→06:32)
[2024-03-16] MEDS: LORazepam 2 mg Tablet 1 MG PO (05:13)
[2024-03-16] MEDS: lamoTRIgine 100 mg Tablet 200 MG PO (05:14)
[2024-03-16] MEDS: allopurinol 300 mg Tablet PO (05:14)
[2024-03-16 05:18] LABS: Basophils # 0.1 10^3/uL (0.0-0.1); Basophils % 0.9 %; Eosinophils # 0.2 10^3/uL (0.0-0.8); Eosinophils % 3.2 %; Hematocrit 37.3 % (36-47); Lymphocytes # 2.2 10^3/uL (0.8-4.8); Lymphocytes % 39.6 %; Mean Corpuscular HGB Conc 29.8 g/dL (30-55); Mean Corpuscular Hemoglobin 28.5 pg (27-33); Mean Corpuscular Volume 95.6 fl (85-98); Mean Platelet Volume 11.7 fL (7.4-10.4); Monocytes # 0.5 10^3/uL (0.2-0.9); Monocytes % 9.2 %; Neutrophils % 46.7 %; Nucleated Red Blood Cells % 0 %; Platelet Count 190 10^3/cmm (157-399); Red Cell Distribution Width 16.3 % (12.1-15.1); White Blood Count 5.56 10^3/uL (3.29-11.43)
[2024-03-16 06:15] LABS: Anion Gap 13.4 (5-19); Carbon Dioxide 28 mmol/L (22-29); Chloride 102 mmol/L (98-107); Potassium 4.4 mmol/L (3.5-5.1); Sodium 139 mmol/L (136-145)
[2024-03-16 06:16] LABS: Blood Urea Nitrogen 7 mg/dL (6-20); Calcium 8.8 mg/dL (8.5-10.5); Creatinine Clr Calc Pharmacy 50.1343; Glomerular Filtration Rate 37.4 mL/min (90-130); Glucose 89 mg/dL (65-115); Osmolality Calculated 285 mOsm/kg (285-295)
[2024-03-16] MEDS: oxyCODONE 10 mg ER (12 HR) Tablet PO (08:44)
[2024-03-16] MEDS: lithium carbonate 300 mg Capsule PO (08:45)
[2024-03-16] MEDS: tizanidine 4 mg Tablet 2 MG PO (08:45)
[2024-03-16] MEDS: lidocaine 5% Patch 1 PATCH TOPICAL (08:45)
[2024-03-16] MEDS: heparin 5,000 unit/mL INJ 1 mL 5000 UNIT SUBCUT (08:46)
[2024-03-16] MEDS: pantoprazole DR 40 mg Tablet PO (08:46)
[2024-03-16] MEDS: levothyroxine 75 mcg Tablet PO (08:46)
--- NOTE | 2024-03-16 12:49 | P.DS_ITS ---
Discharge Providers Date of Admission: 03/08/24 18:12 Date of Discharge: March 16, 2024 Attending Provider at Admission: Sully Ro MD Attending Provider at Discharge: Gomez Zheng Primary Care Provider: Michelle Rico Diagnoses at Discharge Discharge Diagnosis (1) Shock: Status: Acute (2) Fall: Status: Acute (3) Nausea & vomiting: Status: Acute (4) Acute kidney injury superimposed on CKD: Status: Acute (5) Resistant hypertension: Status: Acute (6) DM2 (diabetes mellitus, type 2): Status: Acute (7) Post traumatic stress disorder (PTSD): Status: Acute (8) Bipolar 1 disorder: Status: Acute Reason for Visit Reason for Visit: hypotensive Hospital Course Hospital Course Pleasant 44-year-old lady with history of resistant hypertension on multiple antihypertensives as an outpatient, bipolar disease on lithium, chronic pain on treatment with several medications including Dilaudid, tizanidine, Ativan, following in pain clinic, hypothyroidism, was admitted to the hospital after presenting in shock, feeling dizziness, confused, blood pressure in the 60s systolic. Received IV fluid challenge, started on pressors. Multifactorial shock with combination of dehydration after nausea and vomiting, as well as in the setting of losing around 70 kg of weight over the last year while on Ozempic. She gradually weaned off pressors, shock gradually improving, nausea vomiting resolved without recurrence, all of her antihypertensive medications had to be discontinued. She ran into difficulties being able to tolerate pain medications, with blood pressures remaining soft with significant dips further jeopardizing her kidney function with chronic kidney disease. Requiring intermittent boluses, IV fluids. Echocardiogram showed normal ejection fraction, no regional wall motion abnormality, normal cardiac chamber sizes. No gross valvular abnormalities. No evidence of lithium toxicity. Some of the dips were overlapping after taking several of the evening medications at midnight, IV morphine was discontinued. And as per discussion we also decreased tizanidine dose to 2 mg with risk of hypotension with tizanidine. Risk of hypotension also discussed without the medications. She was switched over from hydromorphone to oxycodone which she seems to tolerate better overall with less general hypotension. However, still even with these medication adjustments hypotensive episodes recurred. In addition with the commode slipping out from underneath her when trying get up she fell injuring her left shoulder and right hip in the process and having additional pain there. These were imaged with x-rays, with additional pain, reimaged with CT as well, without fracture or acute abnormality noted on imaging. She was assessed by physical therapy. Instructed also to continue gentle range of motion of the shoulder to prevent frozen shoulder. Please reassess continued improvement in the office. However, given need for pain medications without ability to further wean down and previously with hives with trial of midodrine, was additionally assessed with cortisol level as well as cosyntropin stimulation test. Cortisol level within normal limit but on the lower side, cosyntropin test with slightly slow response initially but responded appropriately by the end of the test. Still with limited options with blood pressure dips intermittently into the 70s we discussed with her additional option of starting fludrocortisone, started on 0.01 mg at bedtime and has responded favorably without further blood pressure dips into shock territory. Kidney function will need to be followed up given is slightly higher than usual baseline 1.2-1.4 currently at 1.5 discussed with her needs to be reassessed at the next appointment. She otherwise will continue at the current adjusted pain regimen with precautions, understands risk of fluctuation with fluctuation in renal function, and as per discussion knows to hold or discontinue medications in case of any signs of accumulation, and her and her are well versed in availability and if needed emergent use of Narcan at home. She knows to seek medical attention in case of any worsening or new concerning symptoms and is asked to follow-up for reassessment in office. Physical Exam Narrative: Reclined in bed. Accompanied by her . States is not doing very well today with concerns about her IV and getting someone to help her with it. Otherwise blood pressure has stabilized and she feels comfortable with the idea of returning home. Const: COMMON NORMALS: patient oriented x3 and alert GENERAL APPEARANCE: cooperative ORIENTATION/CONSCIOUSNESS: Yes awake HENMT: COMMON NORMALS: oropharynx normal Neck/C-Spine: COMMON NORMALS: no JVD Resp: COMMON NORMALS: normal respiratory effort and clear to auscultation bilaterally AUSCULTATION: clear to auscultation bilaterally Cardio: COMMON NORMALS: no JVD, regular rhythm, S1 normal heart sound present, S2 normal heart sound present and No murmurs present (Cardio) RHYTHM: regular rhythm HEART SOUNDS: S1 normal heart sound present and S2 normal heart sound present GI: COMMON NORMALS: Normal to inspection, nondistended, normoactive bowel sounds present, Soft to palpation and non-tender PALPATION: Yes Soft to palpation Extremity: COMMON NORMALS: no joint enlargement and no pedal edema OTHER: Pain in the left arm. On PROM, particularly abduction, tolerating gradual/slow horizontal adduction and abduction. Without visible or palpable swelling or dislocation. PROM of the left hip joint causing pain in the right lateral hip area. Neuro: COMMON NORMALS: patient oriented x3 and moves all extremities SENSORIUM/ORIENTATION: Yes alert Skin: COMMON NORMALS: no rashes or lesions noted GENERAL SKIN EXAM: no rashes or lesions noted Urinary Catheter Management: Reyes: Cath Placed During This Visit: yes, but has since been removed by the nurse Reason for Continuing Indwelling Catheter: Accurate Measurement of Urinary Output in Critically Ill Patients Urinary Catheter Date of Insertion: 03/08/24 Urinary Catheter Time of Insertion: 18:03 Date Urinary Catheter Removed: 03/10/24 Time Urinary Catheter Discontinued: 11:42 Discharge Data Studies Completed and Pending Completed Studies During Hospitalization Category Date Time Status CT chest abdomen pelvis [[place] [id number] Cat Scan 03/08/24 18:17 Completed ] Stat CT hip RT wo con* [id number] Routine Cat Scan 03/13/24 13:[address] shoulder LT wo con* [id number] Routine Cat Scan 03/13/24 13:01 Completed XR chest 1V portable [id number] Stat Exams 03/08/24 16:42 Completed XR hip RT 2-3V wo/w pel* [id number] Routine Exams 03/12/24 14:56 Completed XR shoulder LT min 2V* [id number] Routine Exams 03/12/24 14:56 Completed CV. echo complete* [id number] Routine Ultrasound 03/08/24 18:17 Completed Pending at discharge Category Date Time Status Basic Metabolic Panel AM LABS Lab 03/17/24 04:00 Ordered Basic Metabolic Panel AM LABS Lab 03/18/24 04:00 Ordered Blood Culture Stat Lab 03/14/24 02:14 Results Complete Blood Count w/Auto AM LABS Lab 03/17/24 04:00 Ordered Complete Blood Count w/Auto AM LABS Lab 03/18/24 04:00 Ordered Radiology Impressions Chest X-Ray 03/08/24 16:42 IMPRESSION: No acute findings. Chest/Abdomen/Pelvis CT 03/08/24 18:17 IMPRESSION: 1. Negative for acute abnormality in the chest. 2. Bilateral dependent atelectasis. IMPRESSION: 1. Negative for acute inflammatory process in the abdomen or pelvis. 2. Cholecystectomy. 3. Moderate constipation. 4. Reyes catheter in the urinary bladder with a small amount of air in the urinary bladder, likely iatrogenic. Hip/Pelvis X-Ray 03/12/24 14:56 IMPRESSION: No fracture or acute osseous abnormality. Shoulder X-Ray 03/12/24 14:56 IMPRESSION: No fracture or dislocation. Hip CT 03/13/24 13:01 IMPRESSION: No acute RIGHT hip fractures Shoulder CT 03/13/24 13:01 IMPRESSION: No acute fractures Laboratory Results WBC 5.56 10^3/uL (3.29-11.43) 03/16/24 04:00 RBC 3.90 10^6/uL (3.85-5.65) 03/16/24 04:00 Hgb 11.10 g/dL (11.27-16.99) L 03/16/24 04:00 Hct 37.3 % (36-47) 03/16/24 04:00 MCV 95.6 fl (85-98) 03/16/24 04:00 MCH 28.5 pg (27-33) 03/16/24 04:00 MCHC 29.8 g/dL (30-55) L 03/16/24 04:00 RDW 16.3 % (12.1-15.1) H 03/16/24 04:00 Plt Count 190 10^3/cmm (157-399) 03/16/24 04:00 MPV 11.7 fL (7.4-10.4) H 03/16/24 04:00 Neut % (Auto) 46.7 % 03/16/24 04:00 Lymph % (Auto) 39.6 % 03/16/24 04:00 [place] % (Auto) 9.2 % 03/16/24 04:00 Eos % (Auto) 3.2 % 03/16/24 04:00 Baso % (Auto) 0.9 % 03/16/24 04:00 Neut # (Auto) 2.60 10^3/uL (1.8-7.7) 03/16/24 04:00 Lymph # (Auto) 2.2 10^3/uL (0.8-4.8) 03/16/24 04:00 [place] # (Auto) 0.5 10^3/uL (0.2-0.9) 03/16/24 04:00 Eos # (Auto) 0.2 10^3/uL (0.0-0.8) 03/16/24 04:00 Baso # (Auto) 0.1 10^3/uL (0.0-0.1) 03/16/24 04:00 Nucleated RBC % (auto) 0 % 03/16/24 04:00 Nucleated RBCs # 0.0 /100WBC 03/16/24 04:00 D-Dimer 0.28 ug/mLFEU (0-0.59) 03/08/24 17:07 Sodium 139 mmol/L (136-145) 03/16/24 04:00 Potassium 4.4 mmol/L (3.5-5.1) 03/16/24 04:00 Chloride 102 mmol/L (98-107) 03/16/24 04:00 Carbon Dioxide 28 mmol/L (22-29) 03/16/24 04:00 Anion Gap 13.4 (5-19) 03/16/24 04:00 BUN 7 mg/dL (6-20) 03/16/24 04:00 Creatinine 1.5 mg/dL (0.5-0.9) H 03/16/24 04:00 GFR Calculation 37.4 mL/min (90-130) L 03/16/24 04:00 Glucose 89 mg/dL (65-115) 03/16/24 04:00 POC Glucose 111 mg/dL (70-110) H 03/09/24 16:17 Calculated Osmolality 285 mOsm/kg (285-295) 03/16/24 04:00 Lactic Acid 1.2 mmol/L (0.5-2.2) 03/08/24 17:07 Calcium 8.8 mg/dL (8.5-10.5) 03/16/24 04:00 Phosphorus 2.9 mg/dL (2.5-4.5) 03/09/24 04:20 Magnesium 1.9 mg/dL (1.7-2.3) 03/09/24 04:20 Iron 44 ug/dL (37-145) 03/08/24 17:07 TIBC 248 mcg/dl 03/08/24 17:07 % Saturation 17.7 % (20-50) L 03/08/24 17:07 Unsat Iron Binding 204 ug/dL (112-347) 03/08/24 17:07 Total Bilirubin 0.3 mg/dL (0.15-1.2) 03/11/24 05:13 AST 12 U/L (0-32) 03/11/24 05:13 ALT 10 U/L (0-33) 03/11/24 05:13 Alkaline Phosphatase 41 U/L (35-105) 03/11/24 05:13 Creatine Kinase 27 U/L (26-192) 03/08/24 17:07 Troponin T Baseline 8 ng/L (0-10) 03/08/24 17:07 Troponin T 120 Minute 6.00 ng/L (0-10) 03/08/24 18:58 Delta Troponin T -2.00 ABS# (0-10) L 03/08/24 18:58 Troponin T Hi Sens 6Hr 6.36 ng/L (0-10) 03/08/24 23:14 Troponin T Hi Sens 6Hr Delta -1.64 ng/L (0-12) L 03/08/24 23:14 Total Protein 6.2 g/dL (6.6-8.7) L 03/11/24 05:13 Albumin 3.5 g/dL (3.5-5.2) 03/11/24 05:13 Globulin 2.7 g/dL (1.3-4.6) 03/11/24 05:13 Lipase 22 U/L (13-60) 03/08/24 17:07 Vitamin B12 218 pg/mL (232-1245) L 03/08/24 17:07 Folate 3.1 ng/mL (4.8-37.3) L 03/09/24 04:20 Procalcitonin 0.09 ng/mL (0-0.5) 03/09/24 04:20 Random Cortisol 6.70 ug/dL (2.47-19.5) 03/10/24 04:58 Cortisol Response 03/12/24 23:40 Urine Color Yellow (Yellow) 03/08/24 18:05 Urine Appearance Clear (CLEAR) 03/08/24 18:05 Urine pH 6 (5-7) 03/08/24 18:05 Ur Specific [place] 1.015 (1.005-1.030) 03/08/24 18:05 Urine Protein Neg (Negative) 03/08/24 18:05 Urine Glucose (UA) Norm (Normal) 03/08/24 18:05 Urine Ketones Negative (Negative) 03/08/24 18:05 Urine Blood Neg (Negative) 03/08/24 18:05 Urine Nitrate Negative (Negative) 03/08/24 18:05 Urine Bilirubin Neg (Negative) 03/08/24 18:05 Urine Urobilinogen Norm mg/dL (Negative) 03/08/24 18:05 Ur Leukocyte Esterase Negative (Negative) 03/08/24 18:05 Ur Eosinophil Smear Not Reportable 03/08/24 18:05 Urine Eosinophils No eosinophils seen 03/08/24 18:05 Ur Random Sodium 54 mmol/L 03/08/24 18:05 Ur Random Potassium 18 mmol/L 03/08/24 18:05 Ur Random Chloride 47 mmol/L 03/08/24 18:05 Urine Creatinine 48 mg/dL (28-217) 03/08/24 18:05 Urine Opiates Screen Positive ng/mL (Negative) H 03/08/24 18:05 Ur Barbiturates Screen Negative ng/mL (Negative) 03/08/24 18:05 Ur Phencyclidine Scrn Negative ng/mL (Negative) 03/08/24 18:05 Ur Amphetamines Screen Negative ng/mL (Negative) 03/08/24 18:05 U Benzodiazepines Scrn Positive ng/mL (Negative) H 03/08/24 18:05 [place] 0.1 mmol/L (0.6-1.2) L 03/08/24 17:07 Urine Cocaine Screen Negative ng/mL (Negative) 03/08/24 18:05 U Marijuana (THC) Screen Negative ng/mL (Negative) 03/08/24 18:05 Adenovirus (PCR) Not detected (NOT DETECT) 03/08/24 18:08 C. pneumoniae DNA (PCR) Not detected (NOT DETECT) 03/08/24 18:08 Coronavirus 229E (PCR) Not detected (NOT DETECT) 03/08/24 18:08 Human Metapneumovir PCR Not detected (NOT DETECT) 03/08/24 18:08 Influenza A (H1) PCR Not detected (NOT DETECT) 03/08/24 18:08 Influ A (H1/09) PCR Not detected (NOT DETECT) 03/08/24 18:08 Influenza A (H3) PCR Not detected (NOT DETECT) 03/08/24 18:08 Influenza Type A (PCR) Not detected (NOT DETECT) 03/08/24 18:08 Influenza Type B (PCR) Not detected (NOT DETECT) 03/08/24 18:08 M. pneumoniae (PCR) Not detected (NOT DETECT) 03/08/24 18:08 Parainfluenza 1 (PCR) Not detected (NOT DETECT) 03/08/24 18:08 Parainfluenza 2 (PCR) Not detected (NOT DETECT) 03/08/24 18:08 Parainfluenza 3 (PCR) Not detected (NOT DETECT) 03/08/24 18:08 Parainfluenza 4 (PCR) Not detected (NOT DETECT) 03/08/24 18:08 RSV Type A (PCR) Not detected (NOT DETECT) 03/08/24 18:08 RSV Type B (PCR) Not detected (NOT DETECT) 03/08/24 18:08 Entero/Rhino (PCR) Not detected (NOT DETECT) 03/08/24 18:08 SARS-CoV-2 (PCR) Not detected (NOT DETECT) 03/08/24 18:08 MRSA (PCR) Not detected (NOT DETECTED) 03/13/24 20:45 Vitals Last Vital Signs Temp 97.8 F 03/16/24 11:59 Pulse 81 03/16/24 11:59 Resp 12 03/16/24 11:59 BP 122/83 03/16/24 11:59 Pulse Ox 95 03/16/24 08:44 O2 Del Method Room Air 03/16/24 04:00 O2 Flow Rate 2 03/12/24 16:40 Discharge Plan Discharge Patient Disposition: Home Condition: Stable Prescriptions: New tizanidine 4 mg Tablet 2 mg PO QID Qty: 120 0RF oxycodone 5 mg Tablet 10 mg PO Q6H PRN (Reason: Severe Pain) Qty: 40 0RF OxyContin 10 mg Tablet,Oral Only,Ext.Rel.12 Hr 10 mg PO BID Qty: 28 0RF lidocaine 5 % Adhesive Patch,Medicated 1 patch topical [id number] Qty: 60 0RF fludrocortisone 0.1 mg Tablet 0.1 mg PO BEDTIME Qty: 90 0RF calamine-zinc oxide 8-8 % Lotion 1 applic topical Q4H PRN (Reason: Itching) Qty: 177 0RF bisacodyl 5 mg Tablet,Delayed Release (Dr/Ec) 10 mg PO DAILY PRN (Reason: Constipation (see protocol)) Qty: 90 0RF Continued (DME) pen needle, diabetic [1st Tier Unifine Pentips] 32 gauge x / needle See Rx Instructions .Route Qty: 50 0RF Rx Instructions: As directed allopurinol 300 mg tablet 300 mg PO QAM pantoprazole [Protonix] 40 mg tablet,delayed release (DR/EC) 40 mg PO BID Qty: 84 0RF lorazepam 2 mg tablet See Rx Instructions PO .COMPLEX Qty: 60 5RF Rx Instructions: Take one half tab (1mg) by mouth in AM and at noon, then take one tab (2mg) at bedtime lithium carbonate 150 mg capsule 150 mg PO .QHS Qty: 30 11RF lithium carbonate 300 mg capsule 300 mg PO BID Qty: 60 11RF lamotrigine 200 mg tablet 200 mg PO QAM Qty: 30 11RF Ozempic 2 mg/dose (8 mg/3 mL) pen injector See Rx Instructions .ROUTE .COMPLEX Qty: 3 0RF Dose Instruction: INJECT 2MG (0.75ML) SUB-Q ONCE WEEKLY(ON SATURDAYS) Rx Instructions: INJECT 2MG (0.75ML) SUB-Q ONCE WEEKLY(ON SATURDAYS) levothyroxine 75 mcg tablet See Rx Instructions .ROUTE .COMPLEX Qty: 30 1RF Dose Instruction: Take 1 tablet by mouth once daily Rx Instructions: Take 1 tablet by mouth once daily lurasidone 80 mg tablet 80 mg PO BEDTIME Rx Instructions: must administer with food (at least 350 calories) ondansetron 8 mg tablet,disintegrating 8 mg PO Q8H PRN (Reason: Nausea And Vomiting) promethazine 25 mg suppository 25 mg RI Q6H PRN (Reason: nausea and vomiting) Qty: 12 0RF Changed potassium chloride 20 mEq tablet,ER particles/crystals 10 meq PO DAILY Qty: 1 0RF Rx Instructions: Dose change only, decrease to 10 mEq zolpidem 10 mg tablet 5 mg PO BEDTIME PRN (Reason: Insomnia) Qty: 1 0RF Rx Instructions: Dose change only, decrease to 5mg as needed nightly Discontinued hydromorphone 4 mg tablet 4 - 8 mg PO Q4H MDD 5 tabs PRN (Reason: Pain) diltiazem HCl 240 mg capsule,extended release 24hr 240 mg PO BID Qty: 180 0RF prazosin 2 mg capsule 4 mg PO BEDTIME Qty: 60 11RF carvedilol 6.25 mg tablet 6.25 mg PO BID clonidine HCl 0.2 mg tablet 0.2 mg PO TID spironolacton-hydrochlorothiaz 25-25 mg tablet 1 tab PO DAILY telmisartan 80 mg tablet 80 mg PO DAILY hydralazine 50 mg tablet 50 - 100 mg PO TID tizanidine 4 mg Capsule 8 mg PO Q6H PRN (Reason: Spasms) Discharge Orders: Discharge Order (Routine); Ordered 03/16/24 Ordered By: Gomez Zheng Referrals: Michelle Rico FNP [Primary Care Provider] - 03/20/24 1:00 pm Discharge Diet: Regular Discharge Activity: Increase activity as tolerated, Limit activity as instructed and As per PT/OT instructions Patient Instructions: Lorazepam (By mouth), Fludrocortisone Acetate (By mouth), Oxycodone, Rapid Release (By mouth), Tizanidine (By mouth), Naloxone (Into the nose), Acute Kidney Injury (GEN), Hypotension (GEN), Altered Mental Status (ED), Opioid Safety Activity Restrictions/Additional Instructions: Please measure your blood dpressures at least 3 times daily. Follow up with your primary doctor for reassessment. Blood pressure dips below 90 systolic or 55 duastolic should be avoided as they are detrimental including to your kidney function. Your blood pressure is more steady with fludrocortisone, however, the dose may need to be further adjusted up or down. Please be aware of potential adverse effects as discussed, including possibility of water retention and elevated b lood pressure. Please have your primary provider follow up your kidney function. Your creatinine is slightly higher than usual as discussed at 1.5. In case you notice any signs of accumulation of pain medication, stop them immediately and seek reassessment promptly including your kidney function. In case of any signs of overdose have Narcan easily accessible to use by family. Your blood pressure medications are discontinued to prevent overly low blood pressures. Prazosin can also contribute to hypotension/orthostasis. Follow up with your primary provider regarding pain including chronic pain and for reassessment of improvement in L shoulder and R hip. Maintain strict fall precautions. Continue gentle range of motion exercises as discussed. Please decrease ambien dose to 5mg max due to risk of adverse effects with this medication with doses higher than 5mg in women. Seek medical attention in case of any worsening or new concerning symptoms. Discharge Attestations Time Spent in Discharge Care*: greater than 30 min Quality Metrics Clinical Quality Measures [ No reported AMI, CVA or VTE this stay] Coding Level of Care Code 28330 Total time (in minutes) for Discharge: 55 Diagnoses Shock R57.9 Fall W19.XXXA Nausea & vomiting R11.2 Acute kidney injury superimposed on CKD N17.9; N18.9 Resistant hypertension I10 DM2 (diabetes mellitus, type 2) E11.9 Post traumatic stress disorder (PTSD) F43.10 Bipolar 1 disorder F31.9
== END 2024-03-16 13:12 | disposition home or self-care (01) | DRG 314 ==
LOC: ER 16:48 → ICU 18:12 → CSU 03-09 15:57
PROVIDERS: Student in an Organized Health Care Education/Training Program; Admitting Provider Student in an Organized Health Care Education/Training Program; Emergency Provider Family Medicine; PCP Nurse Practitioner Family; Visit Provider Internal Medicine
DX: I95.9 Hypotension, unspecified (principal); R57.0 Cardiogenic shock; N17.9 Acute kidney failure, unspecified; F43.10 Post-traumatic stress disorder, unspecified; F31.70 Bipolar disorder, currently in remission, most recent episode unspecified; I1A.0 Resistant hypertension; K21.9 Gastro-esophageal reflux disease without esophagitis; E11.22 Type 2 diabetes mellitus with diabetic chronic kidney disease; I12.9 Hypertensive chronic kidney disease with stage 1 through stage 4 chronic kidney disease, or unspecified chronic kidney disease; N18.9 Chronic kidney disease, unspecified; E89.0 Postprocedural hypothyroidism; E78.5 Hyperlipidemia, unspecified; G89.29 Other chronic pain; M54.2 Cervicalgia; M54.9 Dorsalgia, unspecified; F41.1 Generalized anxiety disorder; E86.0 Dehydration; M25.512 Pain in left shoulder; M25.551 Pain in right hip; W01.0XXA Fall on same level from slipping, tripping and stumbling without subsequent striking against object, initial encounter; Y92.231 Patient bathroom in hospital as the place of occurrence of the external cause; Z11.52 Encounter for screening for COVID-19; Z79.85 Long-term (current) use of injectable non-insulin antidiabetic drugs; Z86.711 Personal history of pulmonary embolism; Z98.1 Arthrodesis status
CPT/HCPCS: 36415; 36416; 51702; 71045; 71250; 73030; 73200; 73502; 73700; 74176; 80048; 80053; 80178; 80306; 81003; 82436; 82533; 82550; 82570; 82607; 82746; 82962; 83540; 83550; 83605; 83690; 83735; 84100; 84133; 84145; 84300; 84484; 85025; 85378; 85999; 86403; 87040; 87449; 87486; 87581; 87633; 87641; 93005; 93306; 94664; 96365; 96367; 96372; 96375; 96376; 97161; 99285; J0834; J1200; J1644; J2270; J2405; J2543; J3370; J7030; J7050

== ENCOUNTER 2024-04-16 09:44 | Outpatient (CLI) | payer OTHER, SELFPAY ==
[2024-04-16 10:43] LABS: Lithium 0.9 mmol/L (0.6-1.2)
[2024-04-16 10:46] LABS: Thyroid Stimulating Hormone 69.45 uIU/mL (0.27-4.20)
== END 2024-04-16 09:45 | disposition home or self-care (01) ==
LOC: LAB 09:49
PROVIDERS: Absent Provider Psychiatry & Neurology Psychiatry; PCP Nurse Practitioner Family; Visit Provider Internal Medicine
DX: I16.1 Hypertensive emergency (principal)
CPT/HCPCS: 36415; 80178; 84439; 84443

== ENCOUNTER → 2024-04-23 08:40 | Outpatient (CLI) | payer OTHER, SELFPAY ==
[2024-04-23 11:08] LABS: Urine Creatinine 27 mg/dL (28-217)
[2024-04-23 11:19] LABS: Total Volume Urine 4800 ml
[2024-05-01 08:04] LABS: Free Cortisol Urine 8.1 mcg/24 h (4.0-50.0); Total Urine 4800 mL; Urine Creatinine 1.27 g/24 h (0.50-2.15)
== END ==
LOC: LAB 05-01 09:37
PROVIDERS: PCP Nurse Practitioner Family; Visit Provider Internal Medicine
DX: I16.1 Hypertensive emergency (principal)
CPT/HCPCS: 82530; 82570; 83835

== ENCOUNTER 2024-05-10 11:23 | Outpatient (CLI) | payer OTHER, SELFPAY ==
--- NOTE | 2024-05-10 11:28 | MR_ITS ---
WS: [id number] MRI LEFT SHOULDER HISTORY: LEFT SHOULDER PAIN COMPARISON: Radiographs 03/12/2024 TECHNIQUE: Multiplanar sequences of the shoulder joint are submitted. Minimal AC joint arthritis. No subacromial impingement. No fluid in the subacromial or subdeltoid bur sa. Normal position of the biceps tendon. No os acromion. No rotator cuff muscle atrophy or edema. Mild tendinopathy in the distal supraspinatus tendon but no tear. Abnormal signal in the coracohumeral ligament. There is fluid and loss of the normal ligament. There is additional abnormal signal at the base of the superior labrum consistent with tear. Middle g lenohumeral ligament with increased signal and surrounding fluid. There is fluid and abnormal signal through the rotator cuff interval. MR/MR shoulder LT wo con* [id number] IMPRESSION: 1. Rotator cuff interval injury/tear. There is increased T2 signal and fluid i n the rotator cuff interval. There is abnormal signal in the middle glenohumera l ligament and coracohumeral ligament. Due to the position of the rotator cuff injury the superior glenohumeral ligament is also probably torn. 2. Superior labral tear. 3. Mild tendinopathy of the distal supraspinatus tendon.
== END 2024-05-10 11:24 | disposition home or self-care (01) ==
LOC: RAD 11:24
PROVIDERS: PCP Nurse Practitioner Family; Visit Provider Nurse Practitioner Family
DX: M67.814 Other specified disorders of tendon, left shoulder (principal); S43.432A Superior glenoid labrum lesion of left shoulder, initial encounter; X58.XXXA Exposure to other specified factors, initial encounter
CPT/HCPCS: 73221

== ENCOUNTER 2024-06-06 07:34 | Emergency (ER) | payer OTHER, SELFPAY ==
[2024-06-06 07:43] VITALS: BP 140/103; PULSE 93; RESP 20; TEMP 36.9; O2SAT 98; BMI 29.6
[2024-06-06 07:49] LABS: Glucose Point of Care 112 mg/dL (70-110)
--- NOTE | 2024-06-06 07:51 | XRR_ITS ---
PROCEDURE INFORMATION: Exam: XR Abdomen Exam date and time: 06/06/2024 7:59 AM Age: 44 years old Clinical indication: Nausea and vomiting; Additional info: N/v TECHNIQUE: Imaging protocol: Radiologic exam of the abdomen. Views: Frontal supine view of the abdomen. 1 View. COMPARISON: CT chest abdpel [id number] 03/08/2024 7:41 PM FINDINGS: Gastrointestinal tract: Moderate quantity of formed stool throughout the colon to the rectum. No air-filled dilated bowel loops or evidence of bowel thickening. Intraperitoneal space: Right upper abdomen surgical clips. Bones/joints: Unremarkable. XR/XR KUB portable [id number] IMPRESSION: Moderate colonic stool burden without evidence of obstruction.
[2024-06-06] MEDS: sodium chloride 0.9% 1,000 ML 999 ML IV (08:04)
[2024-06-06] MEDS: ondansetron 2 mg/ML SDV 2 mL 4 MG IVP (08:05)
[2024-06-06 08:13] LABS: Basophils # 0.1 10^3/uL (0.0-0.1); Basophils % 0.7 %; Eosinophils # 0.2 10^3/uL (0.0-0.8); Hematocrit 45.5 % (36-47); Lymphocytes # 1.7 10^3/uL (0.8-4.8); Lymphocytes % 20.9 %; Mean Corpuscular HGB Conc 31.9 g/dL (30-55); Mean Corpuscular Hemoglobin 29.9 pg (27-33); Mean Corpuscular Volume 93.8 fl (85-98); Mean Platelet Volume 11.4 fL (7.4-10.4); Monocytes # 0.6 10^3/uL (0.2-0.9); Monocytes % 6.7 %; Neutrophils # 5.72 10^3/uL (1.8-7.7); Nucleated Red Blood Cells % 0 %; Platelet Count 258 10^3/cmm (157-399); Red Blood Count 4.85 10^6/uL (3.85-5.65); Red Cell Distribution Width 14.5 % (12.1-15.1); White Blood Count 8.31 10^3/uL (3.29-11.43)
--- NOTE | 2024-06-06 08:13 | ED_ITS ---
HPI - Nausea/Vomiting/Diarrhea 2 General: Chief complaint: Nausea/Vomiting/Diarrhea Stated complaint: NV Time Seen by Provider: 06/06/24 07:45 History of Present Illness: 44-year-old female presents with nausea and vomiting this been going on since around 2 AM this morning. She reports that she is unable keeping down. She denies any diarrhea. Associated nausea: Yes Associated symtoms: Reports malaise and nausea; Denies chest pain or palpitations Related Data Home Medications Medication Instructions Recorded Confirmed ondansetron 8 mg disintegrating 8 mg PO Q8H PRN Nausea And Vomiting 12/09/21 06/06/24 tablet allopurinol 300 mg tablet 300 mg PO QAM 11/25/22 06/06/24 lurasidone 80 mg tablet 80 mg PO BEDTIME 03/09/24 06/06/24 hydralazine 50 mg tablet 50 mg PO DAILY PRN Anxiety 05/14/24 06/06/24 hydromorphone 4 mg tablet 4 mg PO Q4H 05/14/24 06/06/24 (Dilaudid) spironolactone 25 1 tab PO DAILY 05/14/24 06/06/24 mg-hydrochlorothiazide 25 mg tablet telmisartan 80 mg tablet 40 mg PO DAILY 05/14/24 06/06/24 tizanidine 4 mg tablet 8 mg PO QID 05/14/24 06/06/24 levothyroxine 75 mcg tablet 75 mcg PO DAILY 06/06/24 06/06/24 Previous Rx's Medication Instructions Recorded pen needle, diabetic 32 gauge x #50 ea 05/28/22 5/32 (1st Tier Unifine Pentips) pantoprazole 40 mg tablet,delayed 40 mg PO BID #84 tabs 07/20/23 release (Protonix) promethazine 25 mg rectal 25 mg DE Q6H PRN nausea and 09/30/23 suppository vomiting #12 ea lithium carbonate 300 mg capsule 300 mg PO BID #60 caps 10/12/23 lamotrigine 200 mg tablet 200 mg PO QAM #30 tabs 01/02/24 lorazepam 2 mg tablet See Rx Instructions PO .COMPLEX 01/03/24 #60 tabs potassium chloride 20 mEq 10 meq (1/2 x 20 mEq) PO DAILY #1 03/16/24 tablet,extended release(part/cryst) tab carvedilol 6.25 mg tablet 6.25 mg PO BID #180 tabs 04/11/24 fludrocortisone 0.1 mg tablet 0.1 mg PO BEDTIME #90 tabs 05/17/24 semaglutide 2 mg/dose (8 mg/3 mL) See Rx Instructions .Route 05/20/24 subcutaneous pen injector (Ozempic) .COMPLEX #3 mL prazosin 2 mg capsule 2 mg PO .qhs #60 caps 05/22/24 zolpidem 10 mg tablet 10 mg PO BEDTIME PRN Insomnia #30 05/22/24 tabs nitrofurantoin 100 mg PO BID 7 days #14 caps 06/06/24 monohydrate/macrocrystals 100 mg capsule (Macrobid) Allergies Allergy/AdvReac Type Severity Reaction Status Date / Time midodrine Allergy Intermediate ALGY-Rash Verified 05/22/24 12:48 aspirin Allergy due to BUN Verified 05/22/24 12:48 levels coconut Allergy hives Verified 05/22/24 12:48 ketorolac [From Toradol] Allergy hives Verified 05/22/24 12:48 meloxicam [From Mobic] Allergy hives Verified 05/22/24 12:48 NSAIDS (Non-Steroidal Allergy Unknown Verified 05/22/24 12:48 Anti-Inflamma Review of Systems 2 Const: Reports: malaise; Denies: fever(s) or chills Card: Denies: chest pain or palpitations Resp: Denies: dyspnea GI: Reports: abdominal pain (mild diffuse ), nausea and vomiting PFSH ED 2 PFSH: Medical History GERD (gastroesophageal reflux disease) Nausea & vomiting CKD (chronic kidney disease) Hypothyroid Hypertensive urgency, malignant Pulmonary embolism Chest pain at rest Psychiatric care HLD (hyperlipidemia) DM2 (diabetes mellitus, type 2) Chronic back pain Chronic neck and back pain Post traumatic stress disorder (PTSD) Bipolar 1 disorder, depressed, full remission Hypertensive emergency Palpitation Malignant hypertension Chronic renal disease Generalized anxiety disorder Surgical History History of back surgery H/O esophagogastroduodenoscopy (08/12/20) H/O angioplasty History of colonoscopy with polypectomy (08/12/20) History of spinal fusion 10/01/2013- C5-6, ACDFF Dr. Villanueva H/O rectal polypectomy Status post hemilaminotomy 01/06/2012, right L5-S1, disectomy and foraminotomy per Dr. Villanueva History of suburethral sling procedure anterior colporrhapy augmentd with porcine graft, cystoscopy performed on 03/08/[address] Haley History of total hysterectomy 2000 Hx of cholecystectomy History of appendectomy History of bilateral oophorectomy 2011 H/O total thyroidectomy Family History Mother Diabetes Pancreatic cancer Ovarian cancer Father Diabetes Hypertension Stroke COPD (chronic obstructive pulmonary disease) Grandfather Hypertension maternal Heart disease maternal Grandmother Colon cancer maternal Social History Smoking and tobacco/nicotine status: never used tobacco/nicotine Second hand smoke exposure: Yes Alcohol intake: never Substance/Drug Use: never Additional social history: well balanced diet Caregiver/support person: No Lives independently: Yes Household members: spouse Housing: House Marital status: Number of children: 8 Highest education level completed: GED or Equivalent service: No Current occupational status: unemployed Physical Exam 2 Const: COMMON NORMALS: no acute distress, average body habitus and alert Resp: COMMON NORMALS: normal respiratory effort, No use of accessory muscles and clear to auscultation bilaterally EFFORT & INSPECTION: Yes able to speak in complete sentences AUSCULTATION: clear to auscultation bilaterally Cardio: COMMON NORMALS: regular rate and regular rhythm RATE: regular rate RHYTHM: regular rhythm GI: COMMON NORMALS: Soft to palpation PALPATION: Yes Soft to palpation O THER: Mild diffuse tenderness Neuro: SENSORIUM/ORIENTATION: Yes alert Course 2 Vital Signs: Vital signs: Vital Signs Temperature 98.5 F 06/06/24 07:43 Pulse Rate 100 06/06/24 10:13 Respiratory Rate 14 06/06/24 10:13 Blood Pressure 165/105 06/06/24 10:13 Pulse Oximetry 100 06/06/24 10:13 Oxygen Delivery Me thod Room Air 06/06/24 09:05 MDM - Nausea/Vomiting/Diarrhea Medical Decision Making Patient diagnostics ordered reviewed and interpreted by me. Patient's labs appear similar to her baseline. She does have moderate amount of stool on her x-ray along with a urinary tract infection. Patient was offered a CT abdomen pelvis but declined. Patient is feeling better following treatment. She has Zofran and rectal Phenergan at home for her nausea and vomiting. Will start her on antibiotic for urinary tract infection. Patient stable and discharged home Lab Data 06/06/24 08:00 06/06/24 08:00 Radiology Impressions KUB X-Ray 06/06/24 07:51 IMPRESSION: Moderate colonic stool burden without evidence of obstruction. Laboratory Results WBC 8.31 10^3/uL (3.29-11.43) 06/06/24 08:00 RBC 4.85 10^6/uL (3.85-5.65) 06/06/24 08:00 Hgb 14.50 g/dL (11.27-16.99) 06/06/24 08:00 Hct 45.5 % (36-47) 06/06/24 08:00 MCV 93.8 fl (85-98) 06/06/24 08:00 MCH 29.9 pg (27-33) 06/06/24 08:00 MCHC 31.9 g/dL (30-55) 06/06/24 08:00 RDW 14.5 % (12.1-15.1) 06/06/24 08:00 Plt Count 258 10^3/cmm (157-399) 06/06/24 08:00 MPV 11.4 fL (7.4-10.4) H 06/06/24 08:00 Neut % (Auto) 69.0 % 06/06/24 08:00 Lymph % (Auto) 20.9 % 06/06/24 08:00 [place] % (Auto) 6.7 % 06/06/24 08:00 Eos % (Auto) 2.0 % 06/06/24 08:00 Baso % (Auto) 0.7 % 06/06/24 08:00 Neut # (Auto) 5.72 10^3/uL (1.8-7.7) 06/06/24 08:00 Lymph # (Auto) 1.7 10^3/uL (0.8-4.8) 06/06/24 08:00 [place] # (Auto) 0.6 10^3/uL (0.2-0.9) 06/06/24 08:00 Eos # (Auto) 0.2 10^3/uL (0.0-0.8) 06/06/24 08:00 Baso # (Auto) 0.1 10^3/uL (0.0-0.1) 06/06/24 08:00 Nucleated RBC % (auto) 0 % 06/06/24 08:00 Nucleated RBCs # 0.0 /100WBC 06/06/24 08:00 Sodium 131 mmol/L (136-145) L 06/06/24 08:00 Potassium 3.2 mmol/L (3.5-5.1) L 06/06/24 08:00 Chloride 95 mmol/L (98-107) L 06/06/24 08:00 Carbon Dioxide 26 mmol/L (22-29) 06/06/24 08:00 Anion Gap 13.2 (5-19) 06/06/24 08:00 BUN 16 mg/dL (6-20) 06/06/24 08:00 Creatinine 1.6 mg/dL (0.5-0.9) H 06/06/24 08:00 GFR Calculation 34.7 mL/min (90-130) L 06/06/24 08:00 Glucose 115 mg/dL (65-115) 06/06/24 08:00 POC Glucose 112 mg/dL (70-110) H 06/06/24 07:46 Calculated Osmolality 274 mOsm/kg (285-295) L 06/06/24 08:00 Calcium 9.1 mg/dL (8.5-10.5) 06/06/24 08:00 Total Bilirubin 0.6 mg/dL (0.15-1.2) 06/06/24 08:00 AST 12 U/L (0-32) 06/06/24 08:00 ALT 14 U/L (0-33) 06/06/24 08:00 Alkaline Phosphatase 58 U/L (35-105) 06/06/24 08:00 Total Protein 8.4 g/dL (6.6-8.7) 06/06/24 08:00 Albumin 4.8 g/dL (3.5-5.2) 06/06/24 08:00 Globulin 3.6 g/dL (1.3-4.6) 06/06/24 08:00 Lipase 29 U/L (13-60) 06/06/24 08:00 Urine Color Yellow (Yellow) 06/06/24 09:28 Urine Appearance Clear (CLEAR) 06/06/24 09:28 Urine pH 7.0 (5-7) 06/06/24 09:28 Ur Specific [place] 1.014 (1.005-1.030) 06/06/24 09:28 Urine Protein Trace (Negative) A 06/06/24 09: Urine Glucose (UA) Negative (Normal) 06/06/24 09: Urine Ketones Negative (Negative) 06/06/24 09: Urine Blood Negative (Negative) 06/06/24: Urine Nitrate Negative (Negative) 06/06/24: Urine Bilirubin Negative (Negative) 06/06/24: Urine Urobilinogen 1.0 mg/dL (Negative) 06/06/24 09:28 Ur Leukocyte Esterase Trace (Negative) A 06/06/24 09: Urine RBC 0-2 /hpf (0-2) 06/06/24 09:28 Urine WBC 21-50 /hpf (0-5) H 06/06/24 09:28 Ur Squamous Epith Cells 0-5 /hpf (0-5) 06/06/24: Amorphous Sediment Not Reportable 06/06/24: Urine Bacteria 4+ /hpf (NONE) H 06/06/24 09:28 Hyaline Casts 0.81 /lpf 06/06/24 09:28 All radiology interpretation(s) finalized by discharge Discharge Plan Discharge Patient Disposition: Home Clinical Impression: Nausea & vomiting, Urinary tract infection, Constipation Condition: Stable Prescriptions: New nitrofurantoin monohyd/m-cryst [Macrobid] 100 mg capsule 100 mg PO BID 7 Days Qty: 14 0RF Rx Instructions: must administer with a meal/food No Action zolpidem 10 mg tablet 10 mg PO BEDTIME PRN (Reason: Insomnia) Qty: 30 5RF prazosin 2 mg capsule 2 mg PO .qhs Qty: 60 11RF tizanidine 4 mg tablet 8 mg PO QID spironolacton-hydrochlorothiaz 25-25 mg tablet 1 tab PO DAILY hydralazine 50 mg tablet 50 mg PO DAILY PRN (Reason: Anxiety) hydromorphone [Dilaudid] 4 mg tablet 4 mg PO Q4H telmisartan 80 mg tablet 40 mg PO DAILY (DME) pen needle, diabetic [1st Tier Unifine Pentips] 32 gauge x 5/32 needle See Rx Instructions .Route Qty: 50 0RF Rx Instructions: As directed allopurinol 300 mg tablet 300 mg PO QAM pantoprazole [Protonix] 40 mg tablet,delayed release (DR/EC) 40 mg PO BID Qty: 84 0RF lorazepam 2 mg tablet See Rx Instructions PO .COMPLEX Qty: 60 5RF Rx Instructions: Take one half tab (1mg) by mouth in AM and at noon, then take one tab (2mg) at bedtime lithium carbonate 300 mg capsule 300 mg PO BID Qty: 60 11RF lamotrigine 200 mg tablet 200 mg PO QAM Qty: 30 11RF carvedilol 6.25 mg tablet 6.25 mg PO BID Qty: 180 1RF fludrocortisone 0.1 mg tablet 0.1 mg PO BEDTIME Qty: 90 3RF Ozempic 2 mg/dose (8 mg/3 mL) pen injector See Rx Instructions .ROUTE .COMPLEX Qty: 3 0RF Dose Instruction: INJECT 2MG (0.75ML) SUB-Q ONCE WEEKLY(ON SATURDAYS) Rx Instructions: INJECT 2MG (0.75ML) SUB-Q ONCE WEEKLY(ON SATURDAYS) lurasidone 80 mg tablet 80 mg PO BEDTIME Rx Instructions: must administer with food (at least 350 calories) potassium chloride 20 mEq tablet,ER particles/crystals 10 meq PO DAILY Qty: 1 0RF levothyroxine 75 mcg tablet 75 mcg PO DAILY ondansetron 8 mg tablet,disintegrating 8 mg PO Q8H PRN (Reason: Nausea And Vomiting) promethazine 25 mg suppository 25 mg DE Q6H PRN (Reason: nausea and vomiting) Qty: 12 0RF Discharge Orders: Discharge ED (Routine); Ordered 06/06/24 Ordered By: Brian Zamorano Referrals: Michelle Rico, CHILD THERAPIST [Primary Care Provider] - Discharge Diet: Advance as tolerated Discharge Activity: Increase activity as tolerated Patient Instructions: Constipation (ED), Opioid Safety, Pain Management, Urinary Tract Infection - Women Activity Restrictions/Additional Instructions: Clear liquid diet, advance as tolerated. Recommend he start MiraLAX to help with your constipation. Please start your antibiotics. Follow-up with your primary care provider symptoms or not improving over the next couple days. Coding Level of Care Code ED Steel Die Engraver for Ingrid Lindsay
[2024-06-06 08:14] VITALS: BP 140/103; PULSE 89; RESP 13; O2SAT 98
[2024-06-06 08:23] LABS: Alanine Aminotransferase 14 U/L (0-33); Albumin Level 4.8 g/dL (3.5-5.2); Alkaline Phosphatase 58 U/L (35-105); Anion Gap 13.2 (5-19); Aspartate Amino Transferase 12 U/L (0-32); Blood Urea Nitrogen 16 mg/dL (6-20); Calcium 9.1 mg/dL (8.5-10.5); Carbon Dioxide 26 mmol/L (22-29); Chloride 95 mmol/L (98-107); Creatinine Clr Calc Pharmacy 46.1198; Globulin 3.6 g/dL (1.3-4.6); Glomerular Filtration Rate 34.7 mL/min (90-130); Glucose 115 mg/dL (65-115); Lipase 29 U/L (13-60); Osmolality Calculated 274 mOsm/kg (285-295); Potassium 3.2 mmol/L (3.5-5.1); Sodium 131 mmol/L (136-145); Total Bilirubin 0.6 mg/dL (0.15-1.2); Total Protein 8.4 g/dL (6.6-8.7)
[2024-06-06] MEDS: orphenadrine 30 mg/mL Inj 2 mL 60 MG IVP (09:03)
[2024-06-06 09:05] VITALS: BP 165/105; PULSE 90; RESP 18; O2SAT 98
--- NOTE | 2024-06-06 09:10 | PC.NURSE ---
PT IV DID INFILTRATE WITH NS IN HER RAC. NURSE STOPPED FLUIDS AND APPLIED COBAN SNUG WITH 2X2.
[2024-06-06 10:06] LABS: Bilirubin Urine Negative (Negative); Blood Urine Negative (Negative); Glucose Urine UA Negative (Normal); Ketones Urine Negative (Negative); Leukocyte Esterase Urine Trace (Negative); Nitrate Urine Negative (Negative); Protein Urine Trace (Negative); Specific Gravity, Urine 1.014 (1.005-1.030); Urine Appearance Clear (CLEAR); Urine Color Yellow (Yellow)
[2024-06-06] MEDS: metoclopramide 5 mg/mL SDV 2 mL 10 MG IVP (10:08)
[2024-06-06] MEDS: diphenhydrAMINE 50 mg/mL SDV 1mL IVP (10:08)
[2024-06-06 10:11] LABS: Add Urine Microscopic? YES; Bacteria Urine 4+ /hpf; Hyaline Casts Urine 0.81 /lpf; RBC Urine 0-2 /hpf (0-2); Squamous Epithelial Cell Urine 0-5 /hpf (0-5); WBC Urine 21-50 /hpf (0-5)
[2024-06-06 10:13] VITALS: BP 165/105; PULSE 100; RESP 14; O2SAT 100
[2024-06-06 10:20] LABS: Add Urine Culture? Yes
[2024-06-06 10:38] VITALS: BP 131/90; PULSE 83; RESP 18; O2SAT 98
== END 2024-06-06 10:45 | disposition home or self-care (01) ==
PROVIDERS: Emergency Provider Student in an Organized Health Care Education/Training Program; PCP Nurse Practitioner Family
DX: R11.2 Nausea with vomiting, unspecified (principal); N39.0 Urinary tract infection, site not specified; K59.00 Constipation, unspecified; Z79.85 Long-term (current) use of injectable non-insulin antidiabetic drugs; Z77.22 Contact with and (suspected) exposure to environmental tobacco smoke (acute) (chronic); E11.22 Type 2 diabetes mellitus with diabetic chronic kidney disease; I12.9 Hypertensive chronic kidney disease with stage 1 through stage 4 chronic kidney disease, or unspecified chronic kidney disease; N18.9 Chronic kidney disease, unspecified; E78.5 Hyperlipidemia, unspecified
CPT/HCPCS: 36416; 74018; 80053; 81001; 82962; 83690; 85025; 87077; 87086; 87186; 96374; 96375; 99284; J1200; J2360; J2405; J2765; J7030

== ENCOUNTER 2024-06-06 08:05 | Outpatient (CLI) | payer OTHER, SELFPAY | END 2024-06-06 08:06 | disposition home or self-care (01) | PROVIDERS: PCP Nurse Practitioner Family; Visit Provider Internal Medicine | DX: E11.9 Type 2 diabetes mellitus without complications (principal); E03.9 Hypothyroidism, unspecified; E78.5 Hyperlipidemia, unspecified | CPT/HCPCS: 84443 ==

== ENCOUNTER 2024-06-11 10:32 | Inpatient (IN) | payer OTHER, SELFPAY ==
[2024-06-11] VITALS (48 sets, daily range): BP systolic 70–149; BP diastolic 50–123; PULSE 52–106; RESP 11–32; TEMP 36.7–37.1; O2SAT 97–100; BMI 30.2
--- NOTE | 2024-06-11 10:39 | ECG_ITS ---
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 Measurements Intervals [place] Rate: 65 P: 27 WI: 175 QRS: 92 QRSD: 97 T: 43 QT: 409 QTc: 428 Interpretive Statements SINUS RHYTHM BORDERLINE RIGHT AXIS DEVIATION [QRS AXIS > 90] Compared to ECG 03/08/2024 23:16:45 No significant changes Electronically Signed On 06-11-2024 14:06:57 CDT by Rodolfo Chen M.D. [email or web address]
--- NOTE | 2024-06-11 10:41 | ED_ITS ---
HPI - Syncope 2 General: Chief Complaint: Syncope Stated Complaint: hypotensive rapid Time Seen by Provider: 06/11/24 10:38 History of Present Illness: 44-year-old [facility] the [facility]ocrinology clinic. There was a rapid response. She was at the clinic because she got lightheaded and dizzy and had a near syncopal episode she reports her legs gave out . . No chest pain, she is complaining of left shoulder pain. She recently had a shoulder surgery few weeks ago. Associated symptoms: Deny abdominal pain, chest pain or fever(s) Related Data Home Medications Medication Instructions Recorded Confirmed ondansetron 8 mg disintegrating 8 mg PO Q8H PRN Nausea And Vomiting 12/09/21 06/11/24 tablet allopurinol 300 mg tablet 300 mg PO QAM 11/25/22 06/11/24 lurasidone 80 mg tablet 80 mg PO BEDTIME 03/09/24 06/11/24 hydralazine 50 mg tablet 50 mg PO DAILY PRN Anxiety 05/14/24 06/11/24 hydromorphone 4 mg tablet 4 mg PO Q4H 05/14/24 06/11/24 (Dilaudid) spironolactone 25 1 tab PO DAILY 05/14/24 06/11/24 mg-hydrochlorothiazide 25 mg tablet telmisartan 80 mg tablet 40 mg PO DAILY 05/14/24 06/11/24 tizanidine 4 mg tablet 8 mg PO QID 05/14/24 06/11/24 levothyroxine 75 mcg tablet 75 mcg PO DAILY 06/06/24 06/11/24 Previous Rx's Medication Instructions Recorded pen needle, diabetic 32 gauge x #50 ea 05/28/22 5/32 (1st Tier Unifine Pentips) promethazine 25 mg rectal 25 mg MN Q6H PRN nausea and 09/30/23 suppository vomiting #12 ea lithium carbonate 300 mg capsule 300 mg PO BID #60 caps 10/12/23 lamotrigine 200 mg tablet 200 mg PO QAM #30 tabs 01/02/24 lorazepam 2 mg tablet See Rx Instructions PO .COMPLEX 01/03/24 #60 tabs potassium chloride 20 mEq 10 meq (1/2 x 20 mEq) PO DAILY #1 03/16/24 tablet,extended release(part/cryst) tab carvedilol 6.25 mg tablet 6.25 mg PO BID #180 tabs 04/11/24 fludrocortisone 0.1 mg tablet 0.1 mg PO BEDTIME #90 tabs 05/17/24 semaglutide 2 mg/dose (8 mg/3 mL) See Rx Instructions .Route 05/20/24 subcutaneous pen injector (Ozempic) .COMPLEX #3 mL prazosin 2 mg capsule 2 mg PO .qhs #60 caps 05/22/24 zolpidem 10 mg tablet 10 mg PO BEDTIME PRN Insomnia #30 05/22/24 tabs nitrofurantoin 100 mg PO BID 7 days #14 caps 06/06/24 monohydrate/macrocrystals 100 mg capsule (Macrobid) Allergies Allergy/AdvReac Type Severity Reaction Status Date / Time midodrine Allergy Intermediate ALGY-Rash Verified 06/11/24 07:34 aspirin Allergy due to BUN Verified 06/11/24 07:34 levels coconut Allergy hives Verified 06/11/24 07:34 ketorolac [From Toradol] Allergy hives Verified 06/11/24 07:34 meloxicam [From Mobic] Allergy hives Verified 06/11/24 07:34 NSAIDS (Non-Steroidal Allergy Unknown Verified 06/11/24 07:34 Anti-Inflamma Review of Systems 2 Const: Denies: fever(s) or chills Card: Denies: chest pain Resp: Denies: dyspnea GI: Denies: abdominal pain : Denies: dysuria, urinary frequency or urinary urgency Musc: Denies: neck pain or back pain Skin/Breast: Denies: rash PFSH ED 2 PFSH: Medical History GERD (gastroesophageal reflux disease) Nausea & vomiting CKD (chronic kidney disease) Hypothyroid Hypertensive urgency, malignant Pulmonary embolism Chest pain at rest Psychiatric care HLD (hyperlipidemia) DM2 (diabetes mellitus, type 2) Chronic back pain Chronic neck and back pain Post traumatic stress disorder (PTSD) Bipolar 1 disorder, depressed, full remission Hypertensive emergency Palpitation Malignant hypertension Chronic renal disease Generalized anxiety disorder Surgical History History of back surgery H/O esophagogastroduodenoscopy (08/12/20) H/O angioplasty History of colonoscopy with polypectomy (08/12/20) History of spinal fusion 10/01/2013- C5-6, ACDFF Dr. Villanueva H/O rectal polypectomy Status post hemilaminotomy 01/06/2012, right L5-S1, disectomy and foraminotomy per Dr. Villanueva History of suburethral sling procedure anterior colporrhapy augmentd with porcine graft, cystoscopy performed on 03/08/[address] Haley History of total hysterectomy 2000 Hx of cholecystectomy History of appendectomy History of bilateral oophorectomy 2011 H/O total thyroidectomy Family History Mother Diabetes Pancreatic cancer Ovarian cancer Father Diabetes Hypertension Stroke COPD (chronic obstructive pulmonary disease) Grandfather Hypertension maternal Heart disease maternal Grandmother Colon cancer maternal Social History Smoking and tobacco/nicotine status: never used tobacco/nicotine Second hand smoke exposure: Yes Alcohol intake: never Substance/Drug Use: never Additional social history: well balanced diet Caregiver/support person: No Lives independently: Yes Household members: spouse Housing: House Marital status: Number of children: 8 Highest education level completed: GED or Equivalent service: No Current occupational status: unemployed Physical Exam 2 Const: COMMON NORMALS: no acute distress GENERAL APPEARANCE: cooperative and comfortable ORIENTATION/CONSCIOUSNESS: Yes awake, Yes oriented to person, Yes oriented to place and Yes oriented to time HENMT: COMMON NORMALS: normocephalic, atraumatic and hearing grossly normal bilaterally HEAD & SCALP: normocephalic and atraumatic Resp: COMMON NORMALS: normal respiratory effort, No retractions, No use of accessory muscles and clear to auscultation bilaterally AUSCULTATION: clear to auscultation bilaterally Cardio: COMMON NORMALS: regular rate, regular rhythm and No murmurs present (Cardio) RATE: regular rate RHYTHM: regular rhythm GI: COMMON NORMALS: Soft to palpation and No hepatosplenomegaly present A USCULTATION: Yes normoactive bowel sounds PALPATION: Yes Soft to palpation, No Tenderness to palpation present (GI), No Guarding due to palpation present (GI) and Yes No hepatosplenomegaly present Extremity: COMMON NORMALS: normal to inspection, capillary refill normal, no clubbing, cyanosis or edema, no calf tenderness and no pedal edema Neuro: SENSORIUM/ORIENTATION: Yes oriented to person, Yes oriented to place and Yes oriented to time Skin: COMMON NORMALS: no rashes or lesions noted GENERAL SKIN EXAM: no rashes or lesions noted Course 2 Vital Signs: Vital signs: Vital Signs Temperature 98.1 F 06/11/24 10:33 Pulse Rate 63 06/11/24 13:29 Respiratory Rate 17 06/11/24 12:38 Blood Pressure 110/79 06/11/24 13:29 Pulse Oximetry 100 06/11/24 13:29 Oxygen Delivery Me thod Room Air 06/11/24 13:29 MDM - Syncope Medical Decision Making Despite fluids patient continues to have orthostatic hypotension blood pressure lying is gone up to 118 120 however when she stands it decreases to 70 and is symptomatic. Discussed with hospitalist will admit to ICU continue IV fluids hold antihypertensives think continue to reevaluate. Patient does have a cystitis. [place] level is at lower end of detectable limit. Orders written for ICU. Lab Data 06/11/24 10:40 06/11/24 10:40 Laboratory Results WBC 7.65 10^3/uL (3.29-11.43) 06/11/24 10:40 RBC 4.23 10^6/uL (3.85-5.65) 06/11/24 10:40 Hgb 12.40 g/dL (11.27-16.99) 06/11/24 10:40 Hct 39.8 % (36-47) 06/11/24 10:40 MCV 94.1 fl (85-98) 06/11/24 10:40 MCH 29.3 pg (27-33) 06/11/24 10:40 MCHC 31.2 g/dL (30-55) 06/11/24 10:40 RDW 14.4 % (12.1-15.1) 06/11/24 10:40 Plt Count 308 10^3/cmm (157-399) 06/11/24 10:40 MPV 11.9 fL (7.4-10.4) H 06/11/24 10:40 Neut % (Auto) 53.1 % 06/11/24 10:40 Lymph % (Auto) 35.4 % 06/11/24 10:40 [place] % (Auto) 6.0 % 06/11/24 10:40 Eos % (Auto) 2.9 % 06/11/24 10:40 Baso % (Auto) 1.7 % 06/11/24 10:40 Neut # (Auto) 4.06 10^3/uL (1.8-7.7) 06/11/24 10:40 Lymph # (Auto) 2.7 10^3/uL (0.8-4.8) 06/11/24 10:40 [place] # (Auto) 0.5 10^3/uL (0.2-0.9) 06/11/24 10:40 Eos # (Auto) 0.2 10^3/uL (0.0-0.8) 06/11/24 10:40 Baso # (Auto) 0.1 10^3/uL (0.0-0.1) 06/11/24 10:40 Nucleated RBC % (auto) 0 % 06/11/24 10:40 Nucleated RBCs # 0.0 /100WBC 06/11/24 10:40 Sodium 140 mmol/L (136-145) 06/11/24 10:40 Potassium 3.5 mmol/L (3.5-5.1) 06/11/24 10:40 Chloride 109 mmol/L (98-107) H 06/11/24 10:40 Carbon Dioxide 22 mmol/L (22-29) 06/11/24 10:40 Anion Gap 12.5 (5-19) 06/11/24 10:40 BUN 6 mg/dL (6-20) 06/11/24 10:40 Creatinine 1.3 mg/dL (0.5-0.9) H 06/11/24 10:40 GFR Calculation 44.1 mL/min (90-130) L 06/11/24 10:40 Glucose 68 mg/dL (65-115) 06/11/24 10:40 Calculated Osmolality 286 mOsm/kg (285-295) 06/11/24 10:40 Lactic Acid 1.7 mmol/L (0.5-2.2) 06/11/24 10:40 Calcium 8.2 mg/dL (8.5-10.5) L 06/11/24 10:40 Magnesium 1.9 mg/dL (1.7-2.3) 06/11/24 10:40 Total Bilirubin 0.2 mg/dL (0.15-1.2) 06/11/24 10:40 AST 42 U/L (0-32) H 06/11/24 10:40 ALT 37 U/L (0-33) H 06/11/24 10:40 Alkaline Phosphatase 56 U/L (35-105) 06/11/24 10:40 Total Protein 6.7 g/dL (6.6-8.7) 06/11/24 10:40 Albumin 4.1 g/dL (3.5-5.2) 06/11/24 10:40 Globulin 2.6 g/dL (1.3-4.6) 06/11/24 10:40 Urine Color Yellow (Yellow) 06/11/24 12:30 Urine Appearance Clear (CLEAR) 06/11/24 12:30 Urine pH 6.0 (5-7) 06/11/24 12:30 Ur Specific [place] 1.004 (1.005-1.030) L 06/11/24 12:30 Urine Protein Negative (Negative) 06/11/24 12:30 Urine Glucose (UA) Negative (Normal) 06/11/24 12:30 Urine Ketones Negative (Negative) 06/11/24 12:30 Urine Blood Negative (Negative) 06/11/24 12:30 Urine Nitrate Negative (Negative) 06/11/24 12:30 Urine Bilirubin Negative (Negative) 06/11/24 12:30 Urine Urobilinogen 0.2 mg/dL (Negative) 06/11/24 12:30 Ur Leukocyte Esterase 2+ (Negative) A 06/11/24 12:30 Urine RBC 0-2 /hpf (0-2) 06/11/24 12:30 Urine WBC 51-100 /hpf (0-5) H 06/11/24 12:30 Ur Squamous Epith Cells 6-10 /hpf (0-5) 06/11/24 12:30 Amorphous Sediment Not Reportable 06/11/24 12:30 Urine Bacteria 4+ /hpf (NONE) H 06/11/24 12:30 Hyaline Casts 0.81 /lpf 06/11/24 12:30 [place] 0.1 mmol/L (0.6-1.2) L 06/11/24 10:40 XR interpretation done by ED provider, pending radiology final review Discharge Plan Discharge Condition: Stable Prescriptions: No Action zolpidem 10 mg tablet 10 mg PO BEDTIME PRN (Reason: Insomnia) Qty: 30 5RF prazosin 2 mg capsule 2 mg PO .qhs Qty: 60 11RF tizanidine 4 mg tablet 8 mg PO QID spironolacton-hydrochlorothiaz 25-25 mg tablet 1 tab PO DAILY hydralazine 50 mg tablet 50 mg PO DAILY PRN (Reason: Anxiety) hydromorphone [Dilaudid] 4 mg tablet 4 mg PO Q4H telmisartan 80 mg tablet 40 mg PO DAILY (DME) pen needle, diabetic [1st Tier Unifine Pentips] 32 gauge x needle See Rx Instructions .Route Qty: 50 0RF Rx Instructions: As directed allopurinol 300 mg tablet 300 mg PO QAM lorazepam 2 mg tablet See Rx Instructions PO .COMPLEX Qty: 60 5RF Rx Instructions: Take one half tab (1mg) by mouth in AM and at noon, then take one tab (2mg) at bedtime lithium carbonate 300 mg capsule 300 mg PO BID Qty: 60 11RF lamotrigine 200 mg tablet 200 mg PO QAM Qty: 30 11RF carvedilol 6.25 mg tablet 6.25 mg PO BID Qty: 180 1RF fludrocortisone 0.1 mg tablet 0.1 mg PO BEDTIME Qty: 90 3RF Ozempic 2 mg/dose (8 mg/3 mL) pen injector See Rx Instructions .ROUTE .COMPLEX Qty: 3 0RF Dose Instruction: INJECT 2MG (0.75ML) SUB-Q ONCE WEEKLY(ON SATURDAYS) Rx Instructions: INJECT 2MG (0.75ML) SUB-Q ONCE WEEKLY(ON SATURDAYS) lurasidone 80 mg tablet 80 mg PO BEDTIME Rx Instructions: must administer with food (at least 350 calories) potassium chloride 20 mEq tablet,ER particles/crystals 10 meq PO DAILY Qty: 1 0RF levothyroxine 75 mcg tablet 75 mcg PO DAILY nitrofurantoin monohyd/m-cryst [Macrobid] 100 mg capsule 100 mg PO BID 7 Days Qty: 14 0RF Rx Instructions: must administer with a meal/food ondansetron 8 mg tablet,disintegrating 8 mg PO Q8H PRN (Reason: Nausea And Vomiting) promethazine 25 mg suppository 25 mg [place] Q6H PRN (Reason: nausea and vomiting) Qty: 12 0RF Referrals: Michelle Rico TITLE AGENT [Primary Care Provider] - Coding Level of Care Code ED Residence Leasing Agent for Ingrid Lindsay
[2024-06-11] MEDS: sodium chloride 0.9% 1,000 ML 999 ML IV ×2 (10:48→13:29)
[2024-06-11 10:53] LABS: Basophils # 0.1 10^3/uL (0.0-0.1); Basophils % 1.7 %; Eosinophils # 0.2 10^3/uL (0.0-0.8); Eosinophils % 2.9 %; Hematocrit 39.8 % (36-47); Lymphocytes # 2.7 10^3/uL (0.8-4.8); Lymphocytes % 35.4 %; Mean Corpuscular HGB Conc 31.2 g/dL (30-55); Mean Corpuscular Hemoglobin 29.3 pg (27-33); Mean Corpuscular Volume 94.1 fl (85-98); Mean Platelet Volume 11.9 fL (7.4-10.4); Monocytes # 0.5 10^3/uL (0.2-0.9); Neutrophils # 4.06 10^3/uL (1.8-7.7); Neutrophils % 53.1 %; Nucleated Red Blood Cells % 0 %; Platelet Count 308 10^3/cmm (157-399); Red Blood Count 4.23 10^6/uL (3.85-5.65); Red Cell Distribution Width 14.4 % (12.1-15.1); White Blood Count 7.65 10^3/uL (3.29-11.43)
[2024-06-11 11:05] LABS: Alanine Aminotransferase 37 U/L (0-33); Albumin Level 4.1 g/dL (3.5-5.2); Alkaline Phosphatase 56 U/L (35-105); Anion Gap 12.5 (5-19); Aspartate Amino Transferase 42 U/L (0-32); Blood Urea Nitrogen 6 mg/dL (6-20); Calcium 8.2 mg/dL (8.5-10.5); Carbon Dioxide 22 mmol/L (22-29); Chloride 109 mmol/L (98-107); Creatinine Clr Calc Pharmacy 57.3825; Globulin 2.6 g/dL (1.3-4.6); Glomerular Filtration Rate 44.1 mL/min (90-130); Glucose 68 mg/dL (65-115); Magnesium 1.9 mg/dL (1.7-2.3); Osmolality Calculated 286 mOsm/kg (285-295); Potassium 3.5 mmol/L (3.5-5.1); Sodium 140 mmol/L (136-145); Total Bilirubin 0.2 mg/dL (0.15-1.2); Total Protein 6.7 g/dL (6.6-8.7)
[2024-06-11 13:06] LABS: Lactic Sepsis W/Reflex 1.7 mmol/L (0.5-2.2)
[2024-06-11 13:23] LABS: Bilirubin Urine Negative (Negative); Blood Urine Negative (Negative); Glucose Urine UA Negative (Normal); Ketones Urine Negative (Negative); Leukocyte Esterase Urine 2+ (Negative); Nitrate Urine Negative (Negative); Protein Urine Negative (Negative); Specific Gravity, Urine 1.004 (1.005-1.030); Urine Appearance Clear (CLEAR); Urine Color Yellow (Yellow); Urobilinogen Urine 0.2 mg/dL (Negative)
--- NOTE | 2024-06-11 13:23 | ECG_ITS ---
[facility] [place] [facility]: 2024-06[facility]11 Pat Name: Nina Garcia Department: Room: Gender: Female Outpatient Psychiatrist: : 1980 Requested By: Giorgio Jackman Order Number: [id number] Dustin MD: Rodolfo Chen M.D. Measurements Intervals [place] Rate: 60 P: 0 VT: 0 QRS: -35 QRSD: 89 T: 3 QT: 425 QTc: 428 Interpretive Statements SINUS RHYTHM LEFT AXIS DEVIATION [QRS AXIS < -30] LOW QRS VOLTAGE IN PRECORDIAL LEADS [QRS DEFLECTION < 1.0 mV IN CHEST LEADS] Compared to ECG 06/11/2024 10:35:49 Left-axis deviation now present Low QRS voltage now present Electronically Signed On 06-11-2024 14:05:35 CDT by Rodolfo Chen M.D. [id number]
[2024-06-11 13:29] LABS: Add Urine Microscopic? YES; Bacteria Urine 4+ /hpf; Hyaline Casts Urine 0.81 /lpf; RBC Urine 0-2 /hpf (0-2); WBC Urine 51-100 /hpf (0-5)
[2024-06-11 13:38] LABS: Add Urine Culture? Yes
[2024-06-11 13:44] LABS: Lithium 0.1 mmol/L (0.6-1.2)
[2024-06-11 14:03] LABS: Troponin(5th) Baseline < 6 ng/L (0-10)
--- NOTE | 2024-06-11 14:03 | XR_ITS ---
WS: [id number] LEFT SHOULDER: 3 VIEW(S) TECHNIQUE: Internal and external rotation with Y view. HISTORY: pain/trauma COMPARISON: 03/12/2024 No fracture or dislocation or soft tissue abnormality. Glenohumeral and AC joints are unremarkable. XR/XR shoulder LT min 2V* [id number] IMPRESSION: Normal LEFT shoulder.
[2024-06-11] MEDS: fentaNYL 50 mcg/mL INJ 2mL 25 MCG IVP (14:08)
[2024-06-11] MEDS: cefTRIAXone 1,000 mg SDV 1000 MG IVP (14:10)
[2024-06-11] MEDS: sodium chloride 0.9% 1,000 ML 150 ML IV (14:19)
[2024-06-11 14:27] LABS: Lactic Sepsis W/Reflex 1.9 mmol/L (0.5-2.2)
--- NOTE | 2024-06-11 14:43 | ECG_ITS ---
[facility] Date: 2024-[facility]11 Pat Name: Nina Garcia Department: Room: Gender: Female Director Medical Surgical: : 1980 Requested By: Giorgio Jackman Order Number: [id number] Dustin MD: Reese Meraz M.D. Measurements Intervals [place] Rate: 64 P: 71 FL: 180 QRS: 95 QRSD: 85 T: 54 QT: 409 QTc: 422 Interpretive Statements SINUS RHYTHM BORDERLINE RIGHT AXIS DEVIATION [QRS AXIS > 90] LOW QRS VOLTAGE IN PRECORDIAL LEADS [QRS DEFLECTION < 1.0 mV IN CHEST LEADS] Compared to ECG 06/11/2024 13:23:00 Left-axis deviation no longer present Electronically Signed On 06-13-2024 16:51:08 CDT by Reese Meraz M.D. [id number]
[2024-06-11 14:46] LABS: Cortisol Random 9.91 ug/dL (2.47-19.5); Free T4 Free Thyroxine 0.57 ng/dL (0.82-1.77); Thyroid Stimulating Hormone 85.93 uIU/mL (0.27-4.20)
[2024-06-11] MEDS: orphenadrine 30 mg/mL Inj 2 mL 60 MG IM (15:04)
[2024-06-11] MEDS: midodrine 5 mg TABLET PO (15:05)
--- NOTE | 2024-06-11 15:08 | PC.NURSE ---
DR. GONZALES SPOKE WITH PATIENT ABOUT MIDODRINE ALLERGY DUE TO RASH UPON LAST DOSE TAKEN LAST VISIT. PATIENT AGREED TO TRY TO TAKE MIDODRINE. THIS NURSE SPOKE WITH PATIENT REGARDING ALLERGY AND SHE VERIFIED SHE WAS WILLING TO ATTEMPT MEDICATION AGAIN. EDUCATED PATIENT ON SIDE EFFECTS/RASH.
--- NOTE | 2024-06-11 15:46 | PC.NURSE ---
ASSESSED PATIENT AFTER MIDODRINE, PATIENT IS RED AND ITCHY. NOTIFIED DR. GONZALES AND RECEIVED VERBAL ORDERS TO ADMIN BENADRYL 25MG IVP AND LOWER NS 0.9% TO 100 ML/HR.
[2024-06-11] MEDS: diphenhydrAMINE 50 mg/mL SDV 1mL 25 MG IVP (15:57)
[2024-06-11 16:13] LABS: Troponin 5 2HR 9.48 ng/L (0-10); Troponin 5 2HR Delta 3.48001 ABS# (0-10)
[2024-06-11] MEDS: lithium carbonate 300 mg Capsule PO (17:40)
[2024-06-11] MEDS: tizanidine 4 mg Tablet PO ×2 (17:40→20:37)
--- NOTE | 2024-06-11 17:53 | P.HP_ITS ---
Providers/Chief Complaint 2 Admitting Physician: Kervin Brar MD Primary Care Provider: Michelle Rico Chief Complaint: hypotensive rapid History of Present Illness Nina Garcia is a 44 year old female with past medical history of labile hypertension, uncontrolled hypertension in past, type 2 diabetes mellitus, CKD, labile hypothyroidism, hyperlipidemia, recently on fludrocortisone as needed for hypotension was sent into the ER as a rapid response from endocrinology office where she had an episode of syncope. As per the ER documentation patient stood up in the endocrine office and her knees buckled down and she collapsed on the ground. In the ER she was found to have a systolic of 60 to 70 mmHg. She denies of having any nausea, vomiting, headache, dizziness, chest pain. On examination patient is 110 systolic mmHg after receiving 2 L of IV fluid bolus with normal saline at 150 cc/h running currently. Patient states she has had labile blood pressures recently and has been directed by cardiology office to take medications as followed. She is to take only telmisartan if blood pressure is between 100-120 systolic, 120-130 take carvedilol and telmisartan, 130-180 systolic take telmisartan, carvedilol and hydralazine. Above 180 systolic take telmisartan, carvedilol, hydralazine, spironolactone/HCTZ. Take fludrocortisone only systolic blood pressures less than 90 mmHg. Currently mostly she takes telmisartan and Coreg daily. Today morning when she woke up her blood pressure was 96 systolic so she did not take her any of her antihypertensive. She also did not take cortisone. She has been compliant with her levothyroxine. Review of Systems 2 General: Reports: 10 or more systems reviewed and unremarkable except in HPI and below Const: Denies: fever(s), chills, body aches, change in appetite, change in weight, malaise, night sweats, diaphoresis, change in sleep pattern, daytime sleepiness or snoring Eyes: Denies: change in vision, blurry vision, photophobia, eye discomfort or eye discharge ENMT: Denies: throat pain, enlarged tonsils, hoarseness, mouth pain, oral sores, dry mouth, tinnitus, nasal congestion or post nasal drip Card: Denies: chest pain, palpitations, irregular heart rhythm, edema, swelling of feet/ankles, lightheadedness, syncope, pre-syncope, dyspnea on exertion, orthopnea, leg pain with exertion or acrocyanosis Resp: Denies: dyspnea, productive cough, non-productive cough, wheezing, stridor, pain on inspiration, change in phlegm color, hemoptysis or chest congestion GI: Denies: abdominal pain, nausea, vomiting, hematemesis, coffee ground emesis, dysphagia, heartburn, diarrhea, constipation, bloating, GI cramping, change in bowel habits, pain on defecation, hematochezia or melena : Denies: flank pain, dysuria, urinary frequency, urinary urgency, urinary hesitancy, nocturia or hematuria Musc: Denies: neck pain, back pain, extremity pain, joint pain, joint swelling, joint redness, joint stiffness or limited range of motion Neuro: Denies: headache(s), numbness in extremities, weakness in extremities, sensory changes, lack of coordination, difficulty walking, frequent falls, dizziness, vertigo, confusion, Slurred speech present, difficulty communicating thoughts or seizure-like activity Psych: Denies: anxiety, depression, mood swings, panic attacks, hopelessness or irritability Endo: Denies: polyuria, polydipsia, tired all the time, cold intolerance, excessive sweating, flushing or heat intolerance Fahad/Lymph: Denies: easy bruising or easy bleeding All/Imm: Denies: tongue swelling, facial swelling or acute wheezing Medications/Allergies Home Medications Medication Instructions Recorded Confirmed Last Taken Type ondansetron 8 mg disintegrating 8 mg PO Q8H PRN Nausea And Vomiting 12/09/21 06/11/24 06/05/24 History tablet pen needle, diabetic 32 gauge x #50 ea 05/28/22 06/11/24 08/16/23 Rx 5/32 (1st Tier Unifine Pentips) allopurinol 300 mg tablet 300 mg PO QAM 11/25/22 06/11/24 06/10/24 History promethazine 25 mg rectal 25 mg DE Q6H PRN nausea and 09/30/23 06/11/24 Unknown Rx suppository vomiting #12 ea lithium carbonate 300 mg capsule 300 mg PO BID #60 caps 10/12/23 06/11/24 06/10/24 Rx lamotrigine 200 mg tablet 200 mg PO QAM #30 tabs 01/02/24 06/11/24 06/10/24 Rx lorazepam 2 mg tablet See Rx Instructions PO .COMPLEX 01/03/24 06/11/24 06/05/24 Rx #60 tabs lurasidone 80 mg tablet 80 mg PO BEDTIME 03/09/24 06/11/24 06/10/24 History potassium chloride 20 mEq 10 meq (1/2 x 20 mEq) PO DAILY #1 03/16/24 06/11/24 06/10/24 Rx tablet,extended release(part/cryst) tab carvedilol 6.25 mg tablet 6.25 mg PO BID #180 tabs 04/11/24 06/11/24 06/10/24 Rx hydralazine 50 mg tablet 50 mg PO DAILY PRN Anxiety 05/14/24 06/11/24 06/10/24 History hydromorphone 4 mg tablet 4 mg PO Q4H 05/14/24 06/11/24 06/10/24 History (Dilaudid) spironolactone 25 1 tab PO DAILY 05/14/24 06/11/24 06/10/24 History mg-hydrochlorothiazide 25 mg tablet telmisartan 80 mg tablet 40 mg PO DAILY 05/14/24 06/11/24 06/10/24 History tizanidine 4 mg tablet 8 mg PO QID 05/14/24 06/11/24 06/10/24 History fludrocortisone 0.1 mg tablet 0.1 mg PO BEDTIME #90 tabs 05/17/24 06/11/24 06/10/24 Rx semaglutide 2 mg/dose (8 mg/3 mL) See Rx Instructions .Route 05/20/24 06/11/24 06/09/24 Rx subcutaneous pen injector (Ozempic) .COMPLEX #3 mL prazosin 2 mg capsule 2 mg PO .qhs #60 caps 05/22/24 06/11/24 06/10/24 Rx zolpidem 10 mg tablet 10 mg PO BEDTIME PRN Insomnia #30 05/22/24 06/11/24 06/05/24 Rx tabs levothyroxine 75 mcg tablet 75 mcg PO DAILY 06/06/24 06/11/24 06/10/24 History nitrofurantoin 100 mg PO BID 7 days #14 caps 06/06/24 06/11/24 06/11/24 Rx monohydrate/macrocrystals 100 mg capsule (Macrobid) Allergies Allergy/AdvReac Type Severity Reaction Status Date / Time midodrine Allergy Intermediate ALGY-Rash Verified 06/11/24 07:34 aspirin Allergy due to BUN Verified 06/11/24 07:34 levels coconut Allergy hives Verified 06/11/24 07:34 ketorolac [From Toradol] Allergy hives Verified 06/11/24 07:34 meloxicam [From Mobic] Allergy hives Verified 06/11/24 07:34 NSAIDS (Non-Steroidal Allergy Unknown Verified 06/11/24 07:34 Anti-Inflamma PFSH Acute 2 PFSH: Medical History (Updated 06/11/24 @ 18:02 by Kervin Brar MD) Resistant hypertension GERD (gastroesophageal reflux disease) Nausea & vomiting CKD (chronic kidney disease) Hypothyroid Hypertensive urgency, malignant Pulmonary embolism Chest pain at rest Psychiatric care HLD (hyperlipidemia) DM2 (diabetes mellitus, type 2) Chronic back pain Chronic neck and back pain Post traumatic stress disorder (PTSD) Bipolar 1 disorder, depressed, full remission Hypertensive emergency Palpitation Malignant hypertension Chronic renal disease Generalized anxiety disorder Surgical History History of back surgery H/O esophagogastroduodenoscopy (08/12/20) H/O angioplasty History of colonoscopy with polypectomy (08/12/20) History of spinal fusion 10/01/2013- C5-6, ACDFF Dr. Villanueva H/O rectal polypectomy Status post hemilaminotomy 01/06/2012, right L5-S1, disectomy and foraminotomy per Dr. Villanueva History of suburethral sling procedure anterior colporrhapy augmentd with porcine graft, cystoscopy performed on 03/08/[address] Haley History of total hysterectomy 2000 Hx of cholecystectomy History of appendectomy History of bilateral oophorectomy 2011 H/O total thyroidectomy Family History Mother Diabetes Pancreatic cancer Ovarian cancer Father Diabetes Hypertension Stroke COPD (chronic obstructive pulmonary disease) Grandfather Hypertension maternal Heart disease maternal Grandmother Colon cancer maternal Social History Smoking and tobacco/nicotine status: never used tobacco/nicotine Second hand smoke exposure: Yes Alcohol intake: never Substance/Drug Use: never Additional social history: well balanced diet Caregiver/support person: No Lives independently: Yes Household members: spouse Housing: House Marital status: Number of children: 8 Highest education level completed: GED or Equivalent service: No Current occupational status: unemployed Vitals/I&O/Wt Last Vital Signs Temp 98.1 F 06/11/24 10:33 Pulse 74 06/11/24 17:50 Resp 13 06/11/24 17:50 BP 130/98 06/11/24 17:40 Pulse Ox 100 06/11/24 17:50 O2 Del Method Room Air 06/11/24 17:45 06/11/24 06/11/24 06/11/24 06:59 14:59 22:59 Intake Total 1000 / 1000 1290 / 2290 Balance 1000 / 1000 1290 / 2290 Weight last 48 hrs Weight 82.554 kg Weight 82.554 kg Physical Exam 2 Narrative: General: No acute distress, AO x3 HEENT: PERRLA, pupils bilaterally equal and reactive Chest: Normal vesicular breath sounds, no added sounds, equal good air entry bilaterally CVS: S1-S2 regular, no murmurs, no tachycardia, no gallops, no rubs Abdomen: Soft, nontender, no organomegaly, bowel sounds present Neuro: No focal deficits, no facial deformity, AO x3, power 5/5 in all limbs Data 06/11/24 10:40 06/11/24 10:40 Micro: Microbiology 06/11/24 14:01 Blood Culture - Preliminary Blood SPECIMEN COLLECTED 06/11/24 13:58 Blood Culture - Preliminary Blood SPECIMEN COLLECTED A&P Assessment and plan (1) Hypotension: Patient has a history of labile blood pressures in the past. Also has history of resistant hypertension in the past though recently she has been hypotensive and requiring fludrocortisone on and off. She has been directed by cardiology office to take her antihypertensives as followed. She is to take only telmisartan if blood pressure is between 100-120 systolic, 120-130 take carvedilol and telmisartan, 130-180 systolic take telmisartan, carvedilol and hydralazine. Above 180 systolic take telmisartan, carvedilol, hydralazine, spironolactone/HCTZ. Take fludrocortisone only if systolic blood pressure less than 90 mmHg. Check cortisol level. Hold off on antihypertensive for now. IV fluid at 100 cc/h. Check orthostatic blood pressures. After a.m. cortisol level will start patient on high-dose steroids if needed. Otherwise most likely will need to send patient on daily fludrocortisone rather than fludrocortisone as as needed. Can give a trial of midodrine 5 mg one-time. In past patient has history of rash while taking midodrine. Patient is agreeable to give a try. If develops a rash she will start on Benadryl. Low concerns for infection for now. Patient does not have any leukocytosis, does not give any localizing symptom. Check procalcitonin. UA negative for any concern for UTI. Denies any signs or symptoms of pneumonia. Currently saturating well on room air. Follow-up blood cultures. Patient is on high dose of pain medications though has been on the same pain medication for many years. She takes Dilaudid 4 mg every 6 hours as needed along with tizanidine 8 mg 3 times daily. For now we will change the tizanidine to 4 mg 3 times daily and continue Dilaudid at home dose to avoid withdrawal symptoms. Hold off on antibiotics for now. Qualifiers: Hypotension type: hypotension due to drug Qualified Code(s): I95.2 - Hypotension due to drugs (2) Labile hypertension: (3) Hypothyroid: Patient has labile hypothyroidism. Following up with endocrinology as an outpatient. TSH recently elevated to more than 135. Recheck thyroid profile. Discussed in detail with endocrinology. Increase 212 mcg daily for now. Patient will need a repeat thyroid file in next 1 week. (4) DM2 (diabetes mellitus, type 2): Recent A1c of 5.7. (5) CKD (chronic kidney disease): Creatinine at baseline. Monitor BMP daily. (6) Polypharmacy: (7) Bipolar 1 disorder: Continue home dose of lithium and Ativan. Check lithium level in AM. (8) Syncope: Plan Regular diet Full code Heparin for DVT prophylaxis Famotidine for PUD prophylaxis Attestations 2 Medical Necessity Statement*: Admitted to ICU for evaluation and management of severe hypotension leading to syncope in a patient with labile hypertension and hypothyroidism. Diagnoses Hypotension due to drugs I95.2 Hypotension type: hypotension due to drug Labile hypertension R09.89 Hypothyroid E03.9 DM2 (diabetes mellitus, type 2) E11.9 CKD (chronic kidney disease) N18.9 Polypharmacy Z79.899 Bipolar 1 disorder F31.9 Syncope R55
[2024-06-11] MEDS: levothyroxine 50 mcg Tablet PO (18:07)
[2024-06-11] MEDS: famotidine 20 mg Tablet PO (18:07)
[2024-06-11] MEDS: heparin 5,000 unit/mL INJ 1 mL 5000 UNIT SUBCUT (18:08)
--- NOTE | 2024-06-11 19:19 | ECG_ITS ---
[facility] Test Date: 2024-06-11 Pat Name: Nina Garcia Department: Room: [facility] Gender: Female Day Porter: : 1980 Requested By: Giorgio Jackman Order Number: [id number] Dustin MD: Reese Meraz M.D. Measurements Intervals [place] Rate: 93 P: 66 [place]: 127 QRS: 97 QRSD: 85 T: 38 QT: 374 QTc: 466 Interpretive Statements SINUS RHYTHM BORDERLINE RIGHT AXIS DEVIATION [QRS AXIS > 90] LOW QRS VOLTAGE IN PRECORDIAL LEADS [QRS DEFLECTION < 1.0 mV IN CHEST LEADS] NONSPECIFIC T-WAVE ABNORMALITY WARNING: DATA QUALITY MAY AFFECT INTERPRETATION Compared to ECG 06/11/2024 14:43:08 T-wave abnormality now present Electronically Signed On 06-13-2024 16:53:56 CDT by Reese Meraz M.D. [id number]
[2024-06-11 19:55] LABS: Troponin 5 6HR Delta 0.00001 ng/L (0-12)
[2024-06-11] MEDS: LORazepam 2 mg Tablet PO (20:04)
[2024-06-11] MEDS: lurasidone 80 mg Tablet PO (20:04)
[2024-06-11 20:05] LABS: Procalcitonin 0.12 ng/mL (0-0.5)
[2024-06-11] MEDS: zolpidem 5 mg Tablet 10 MG PO (20:37)
[2024-06-11] MEDS: sodium chloride 0.9% 1,000 ML 100 ML IV (23:59)
[2024-06-12] VITALS (26 sets, daily range): BP systolic 91–174; BP diastolic 56–120; PULSE 65–144; RESP 10–26; TEMP 36.9–37.1; O2SAT 92–100
[2024-06-12] MEDS: heparin 5,000 unit/mL INJ 1 mL 5000 UNIT SUBCUT ×3 (02:28→17:39)
[2024-06-12 04:22] LABS: Basophils # 0.1 10^3/uL (0.0-0.1); Basophils % 1.2 %; Eosinophils # 0.2 10^3/uL (0.0-0.8); Eosinophils % 2.6 %; Hematocrit 36.1 % (36-47); Lymphocytes % 45.5 %; Mean Corpuscular HGB Conc 30.7 g/dL (30-55); Mean Corpuscular Hemoglobin 29.1 pg (27-33); Mean Corpuscular Volume 94.5 fl (85-98); Mean Platelet Volume 11.7 fL (7.4-10.4); Monocytes # 0.3 10^3/uL (0.2-0.9); Monocytes % 4.9 %; Neutrophils # 2.94 10^3/uL (1.8-7.7); Nucleated Red Blood Cells % 0 %; Platelet Count 239 10^3/cmm (157-399); Red Blood Count 3.82 10^6/uL (3.85-5.65); Red Cell Distribution Width 14.7 % (12.1-15.1); White Blood Count 6.53 10^3/uL (3.29-11.43)
[2024-06-12 04:39] LABS: Alanine Aminotransferase 28 U/L (0-33); Albumin Level 3.7 g/dL (3.5-5.2); Alkaline Phosphatase 48 U/L (35-105); Anion Gap 11.7 (5-19); Aspartate Amino Transferase 22 U/L (0-32); Blood Urea Nitrogen 8 mg/dL (6-20); Calcium 7.7 mg/dL (8.5-10.5); Carbon Dioxide 21 mmol/L (22-29); Chloride 111 mmol/L (98-107); Creatinine Clr Calc Pharmacy 62.1644; Globulin 2.2 g/dL (1.3-4.6); Glomerular Filtration Rate 48.4 mL/min (90-130); Glucose 93 mg/dL (65-115); Magnesium 1.9 mg/dL (1.7-2.3); Osmolality Calculated 288 mOsm/kg (285-295); Potassium 3.7 mmol/L (3.5-5.1); Sodium 140 mmol/L (136-145); Total Bilirubin 0.2 mg/dL (0.15-1.2); Total Protein 5.9 g/dL (6.6-8.7)
[2024-06-12 04:48] LABS: Lithium 0.2 mmol/L (0.6-1.2)
[2024-06-12 04:54] LABS: Cortisol Random 2.89 ug/dL (2.47-19.5)
[2024-06-12] MEDS: LORazepam 1 mg Tablet PO ×2 (05:25→13:01)
[2024-06-12] MEDS: allopurinol 300 mg Tablet PO (05:25)
[2024-06-12] MEDS: lamoTRIgine 100 mg Tablet 200 MG PO (05:25)
[2024-06-12] MEDS: tizanidine 4 mg Tablet PO (08:30)
[2024-06-12] MEDS: lithium carbonate 300 mg Capsule PO ×2 (08:30→17:38)
[2024-06-12] MEDS: famotidine 20 mg Tablet PO ×2 (08:30→17:38)
[2024-06-12] MEDS: sodium chloride 0.9% 1,000 ML 100 ML IV (08:30)
[2024-06-12] MEDS: levothyroxine 75 mcg Tablet PO (08:30)
[2024-06-12] MEDS: tizanidine 4 mg Tablet 8 MG PO ×4 (10:09→20:01)
[2024-06-12] MEDS: losartan 50 mg Tablet 100 MG PO (10:10)
--- NOTE | 2024-06-12 11:53 | P.DS_ITS ---
Discharge Providers Date of Admission: 06/11/24 15:08 Date of Discharge: June 12, 2024 Attending Provider at Admission: Kervin Brar MD Attending Provider at Discharge: Kervin Brar MD Primary Care Provider: Michelle Rico Diagnoses at Discharge Discharge Diagnosis (1) Hypotension: Status: Acute Qualifiers: Hypotension type: hypotension due to drug Qualified Code(s): I95.2 - Hypotension due to drugs (2) Labile hypertension: Status: Acute (3) Hypothyroid: Status: Acute (4) DM2 (diabetes mellitus, type 2): Status: Acute (5) CKD (chronic kidney disease): Status: Acute (6) Polypharmacy: Status: Acute (7) Bipolar 1 disorder: Status: Acute (8) Syncope: Status: Acute Reason for Visit Reason for Visit: hypotensive rapid Discharge Data Studies Completed and Pending Completed Studies During Hospitalization Category Date Time Status XR shoulder LT min 2V* [id number] Stat Exams 06/11/24 14:03 Completed Pending at discharge Category Date Time Status Blood Culture Stat Lab 06/11/24 14:01 Results Lamotrigine (Lamictal) Level Routine Lab 06/11/24 19:27 Received Urine Culture Stat Lab 06/11/24 12:30 Results Radiology Impressions Shoulder X-Ray 06/11/24 14:03 IMPRESSION: Normal LEFT shoulder. Laboratory Results WBC 6.53 10^3/uL (3.29-11.43) 06/12/24 03:57 RBC 3.82 10^6/uL (3.85-5.65) L 06/12/24 03:57 Hgb 11.10 g/dL (11.27-16.99) L 06/12/24 03:57 Hct 36.1 % (36-47) 06/12/24 03:57 MCV 94.5 fl (85-98) 06/12/24 03:57 MCH 29.1 pg (27-33) 06/12/24 03:57 MCHC 30.7 g/dL (30-55) 06/12/24 03:57 RDW 14.7 % (12.1-15.1) 06/12/24 03:57 Plt Count 239 10^3/cmm (157-399) 06/12/24 03:57 MPV 11.7 fL (7.4-10.4) H 06/12/24 03:57 Neut % (Auto) 45.0 % 06/12/24 03:57 Lymph % (Auto) 45.5 % 06/12/24 03:57 [place] % (Auto) 4.9 % 06/12/24 03:57 Eos % (Auto) 2.6 % 06/12/24 03:57 Baso % (Auto) 1.2 % 06/12/24 03:57 Neut # (Auto) 2.94 10^3/uL (1.8-7.7) 06/12/24 03:57 Lymph # (Auto) 3.0 10^3/uL (0.8-4.8) 06/12/24 03:57 [place] # (Auto) 0.3 10^3/uL (0.2-0.9) 06/12/24 03:57 Eos # (Auto) 0.2 10^3/uL (0.0-0.8) 06/12/24 03:57 Baso # (Auto) 0.1 10^3/uL (0.0-0.1) 06/12/24 03:57 Nucleated RBC % (auto) 0 % 06/12/24 03:57 Nucleated RBCs # 0.0 /100WBC 06/12/24 03:57 Sodium 140 mmol/L (136-145) 06/12/24 03:57 Potassium 3.7 mmol/L (3.5-5.1) 06/12/24 03:57 Chloride 111 mmol/L (98-107) H 06/12/24 03:57 Carbon Dioxide 21 mmol/L (22-29) L 06/12/24 03:57 Anion Gap 11.7 (5-19) 06/12/24 03:57 BUN 8 mg/dL (6-20) 06/12/24 03:57 Creatinine 1.2 mg/dL (0.5-0.9) H 06/12/24 03:57 GFR Calculation 48.4 mL/min (90-130) L 06/12/24 03:57 Glucose 93 mg/dL (65-115) 06/12/24 03:57 Calculated Osmolality 288 mOsm/kg (285-295) 06/12/24 03:57 Lactic Acid 1.9 mmol/L (0.5-2.2) 06/11/24 13:58 Calcium 7.7 mg/dL (8.5-10.5) L 06/12/24 03:57 Phosphorus 3.0 mg/dL (2.5-4.5) 06/12/24 03:57 Magnesium 1.9 mg/dL (1.7-2.3) 06/12/24 03:57 Total Bilirubin 0.2 mg/dL (0.15-1.2) 06/12/24 03:57 AST 22 U/L (0-32) 06/12/24 03:57 ALT 28 U/L (0-33) 06/12/24 03:57 Alkaline Phosphatase 48 U/L (35-105) 06/12/24 03:57 Troponin T Baseline < 6 ng/L (0-10) 06/11/24 13:34 Troponin T 120 Minute 9.48 ng/L (0-10) 06/11/24 15:40 Delta Troponin T 3.38421 ABS# (0-10) 06/11/24 15:40 Troponin T Hi Sens 6Hr 6.00 ng/L (0-10) 06/11/24 19:27 Troponin T Hi Sens 6Hr Delta 0.85179 ng/L (0-12) 06/11/24 19:27 Total Protein 5.9 g/dL (6.6-8.7) L 06/12/24 03:57 Albumin 3.7 g/dL (3.5-5.2) 06/12/24 03:57 Globulin 2.2 g/dL (1.3-4.6) 06/12/24 03:57 Procalcitonin 0.12 ng/mL (0-0.5) 06/11/24 19:27 TSH 85.93 uIU/mL (0.27-4.20) H 06/11/24 10:40 Free T4 0.57 ng/dL (0.82-1.77) L 06/11/24 10:40 Random Cortisol 2.89 ug/dL (2.47-19.5) 06/12/24 03:57 Urine Color Yellow (Yellow) 06/11/24 12:30 Urine Appearance Clear (CLEAR) 06/11/24 12:30 Urine pH 6.0 (5-7) 06/11/24 12:30 Ur Specific [place] 1.004 (1.005-1.030) L 06/11/24 12:30 Urine Protein Negative (Negative) 06/11/24 12:30 Urine Glucose (UA) Negative (Normal) 06/11/24 12:30 Urine Ketones Negative (Negative) 06/11/24 12:30 Urine Blood Negative (Negative) 06/11/24 12:30 Urine Nitrate Negative (Negative) 06/11/24 12:30 Urine Bilirubin Negative (Negative) 06/11/24 12:30 Urine Urobilinogen 0.2 mg/dL (Negative) 06/11/24 12:30 Ur Leukocyte Esterase 2+ (Negative) A 06/11/24 12:30 Urine RBC 0-2 /hpf (0-2) 06/11/24 12:30 Urine WBC 51-100 /hpf (0-5) H 06/11/24 12:30 Ur Squamous Epith Cells 6-10 /hpf (0-5) 06/11/24 12:30 Amorphous Sediment Not Reportable 06/11/24 12:30 Urine Bacteria 4+ /hpf (NONE) H 06/11/24 12:30 Hyaline Casts 0.81 /lpf 06/11/24 12:30 [place] 0.2 mmol/L (0.6-1.2) L 06/12/24 03:57 Vitals Last Vital Signs Temp 98.5 F 06/12/24 08:00 Pulse 144 H 06/12/24 10:00 Resp 26 H 06/12/24 10:00 BP 174/120 06/12/24 10:00 Pulse Ox 100 06/12/24 09:00 O2 Del Method Room Air 06/12/24 06:00 Discharge Plan Discharge Patient Disposition: Home Condition: Stable Prescriptions: New hydralazine 50 mg Tablet 50 mg PO TID PRN (Reason: Anxiety) 30 Days Qty: 90 0RF prednisone 10 mg tablet 10 mg PO DIRECTED Qty: 42 2RF Rx Instructions: orally; 10 mg twice daily for next 2 weeks followed by 10 mg daily levothyroxine 112 mcg capsule 112 mcg PO DAILY Qty: 30 0RF Continued zolpidem 10 mg tablet 10 mg PO BEDTIME PRN (Reason: Insomnia) Qty: 30 5RF prazosin 2 mg capsule 2 mg PO .qhs Qty: 60 11RF tizanidine 4 mg tablet 8 mg PO QID spironolacton-hydrochlorothiaz 25-25 mg tablet 1 tab PO DAILY hydromorphone [Dilaudid] 4 mg tablet 4 mg PO Q4H telmisartan 80 mg tablet 40 mg PO DAILY (DME) pen needle, diabetic [1st Tier Unifine Pentips] 32 gauge x 5/32 needle See Rx Instructions .Route Qty: 50 0RF Rx Instructions: As directed allopurinol 300 mg tablet 300 mg PO QAM lorazepam 2 mg tablet See Rx Instructions PO .COMPLEX Qty: 60 5RF Rx Instructions: Take one half tab (1mg) by mouth in AM and at noon, then take one tab (2mg) at bedtime lithium carbonate 300 mg capsule 300 mg PO BID Qty: 60 11RF lamotrigine 200 mg tablet 200 mg PO QAM Qty: 30 11RF Ozempic 2 mg/dose (8 mg/3 mL) pen injector See Rx Instructions .ROUTE .COMPLEX Qty: 3 0RF Dose Instruction: INJECT 2MG (0.75ML) SUB-Q ONCE WEEKLY(ON SATURDAYS) Rx Instructions: INJECT 2MG (0.75ML) SUB-Q ONCE WEEKLY(ON SATURDAYS) lurasidone 80 mg tablet 80 mg PO BEDTIME Rx Instructions: must administer with food (at least 350 calories) potassium chloride 20 mEq tablet,ER particles/crystals 10 meq PO DAILY Qty: 1 0RF ondansetron 8 mg tablet,disintegrating 8 mg PO Q8H PRN (Reason: Nausea And Vomiting) promethazine 25 mg suppository 25 mg UT Q6H PRN (Reason: nausea and vomiting) Qty: 12 0RF Discontinued hydralazine 50 mg tablet 50 mg PO DAILY PRN (Reason: Anxiety) carvedilol 6.25 mg tablet 6.25 mg PO BID Qty: 180 1RF fludrocortisone 0.1 mg tablet 0.1 mg PO BEDTIME Qty: 90 3RF levothyroxine 75 mcg tablet 75 mcg PO DAILY nitrofurantoin monohyd/m-cryst [Macrobid] 100 mg capsule 100 mg PO BID 7 Days Qty: 14 0RF Rx Instructions: must administer with a meal/food Discharge Orders: Discharge Order (Routine); Ordered 10/15/24 Ordered By: Kervin Brar Referrals: Michelle Rico FNP [Primary Care Provider] - 2 weeks Carol Toure MD [Physician] - 2 weeks Discharge Diet: Cardiac Discharge Activity: Resume usual activity and Increase activity as tolerated Patient Instructions: Opioid Safety Activity Restrictions/Additional Instructions: Your goal blood pressure is between 140/90?100/60 mmHg. Take prednisone as prescribed. For now take 10 mg twice daily for next 2 weeks followed by 10 mg daily till the time you follow-up with your centrifugal chiller technician. Please check your blood pressures daily and maintain a blood pressure diary and follow-up with your primary care provider within next 2 weeks. If your blood pressures are more than 120 mmHg you can take your telmisartan, if they are more than 160 mmHg you can take hydralazine 50 mg 3 times a day as needed, if they tend to go more than 180 even after taking hydralazine he can take your dose of spironolactone. Your dose of levothyroxine has been increased 112 mcg daily. Please recheck thyroid profile within next 1 week. Discharge Attestations Time Spent in Discharge Care*: greater than 30 min Specific Discharge Activities: educating patient, discussing with pcp/other providers, discussing with adult protective caseworker/social workers/dc planners, documenting/other paperwork and evaluating patient/reviewing data Status at Discharge: Cognitive status at discharge: cognitively intact , Behavioral status at discharge: cooperative , Functional status at discharge: independent ambulation , Overall status at discharge: patient is back to baseline Coding Level of Care Code 69048 Total time (in minutes) for Discharge: 60 Diagnoses Hypotension due to drugs I95.2 Hypotension type: hypotension due to drug Labile hypertension R09.89 Hypothyroid E03.9 DM2 (diabetes mellitus, type 2) E11.9 CKD (chronic kidney disease) N18.9 Polypharmacy Z79.899 Bipolar 1 disorder F31.9 Syncope R55
[2024-06-12] MEDS: hydrocortisone 100 mg/2 mL SDV IVP ×2 (13:19→20:00)
--- NOTE | 2024-06-12 16:43 | PM.PN ---
Subjective Subjective: No acute events overnight. Patient's blood pressure has continued to improve. On examination today patient complaining of mild headache and nausea. She states she usually have the symptoms when her blood pressures are running high. Today morning on first examination blood pressures were 170/80 mmHg. Patient was given her home dose of telmisartan after which her blood pressures normalized. She was given her home dose of pain medications and her blood pressure dropped down to 90 systolic at resting. Plan was to discharge but as her blood pressure dropped to 90 systolic discharge was discontinued and she was advised to stay in the hospital for further monitoring and management by adjusting her antihypertensive. Vitals/I&O/Wt Last Vital Signs Temp 98.5 F 06/12/24 08:00 Pulse 83 06/12/24 16:00 Resp 14 06/12/24 16:00 BP 115/82 06/12/24 16:00 Pulse Ox 99 06/12/24 16:00 O2 Del Method Room Air 06/12/24 06:00 06/12/24 06/12/24 06/12/24 06:59 14:59 22:59 Intake Total 910 / 3420 1051.667 / 1051.667 Output Total 500 / 700 Balance 410 / 2720 1051.667 / 1051.667 Weight last 48 hrs Weight 88 kg Weight 82.554 kg Weight 82.554 kg Physical Exam Narrative: General: No acute distress, AO x3 HEENT: PERRLA, pupils bilaterally equal and reactive Chest: Normal vesicular breath sounds, no added sounds, equal good air entry bilaterally CVS: S1-S2 regular, no murmurs, no tachycardia, no gallops, no rubs Abdomen: Soft, nontender, no organomegaly, bowel sounds present Neuro: No focal deficits, no facial deformity, AO x3, power 5/5 in all limbs Data 06/12/24 03:57 06/12/24 03:57 Micro: Microbiology 06/11/24 14:01 Blood Culture - Preliminary Blood NEGATIVE TO DATE 06/11/24 13:58 Blood Culture - Preliminary Blood NEGATIVE TO DATE 06/11/24 12:30 Urine Culture - Preliminary Urine,Clean Catch Gram Negative Rods A&P Assessment and plan (1) Hypotension: Qualifiers: Hypotension type: hypotension due to drug Qualified Code(s): I95.2 - Hypotension due to drugs (2) Labile hypertension: (3) Hypothyroid: Patient has labile hypothyroidism. Following up with endocrinology as an outpatient. TSH recently elevated to more than 135. Repeat thyroid profile shows TSH of 85 Discussed in detail with endocrinology. Increase to 112 mcg daily for now. Patient will need a repeat thyroid file in next 1 week. (4) DM2 (diabetes mellitus, type 2): Recent A1c of 5.7. (5) CKD (chronic kidney disease): Creatinine at baseline. Monitor BMP daily. (6) Polypharmacy: (7) Bipolar 1 disorder: Continue home dose of lithium and Ativan. (8) Syncope: (9) Adrenal insufficiency: Plan Patient has a history of labile blood pressures in the past. Also has history of resistant hypertension in the past though recently she has been hypotensive and requiring fludrocortisone on and off. She has been directed by cardiology office to take her antihypertensives as followed. She is to take only telmisartan if blood pressure is between 100-120 systolic, 120-130 take carvedilol and telmisartan, 130-180 systolic take telmisartan, carvedilol and hydralazine. Above 180 systolic take telmisartan, carvedilol, hydralazine, spironolactone/HCTZ. Take fludrocortisone only if systolic blood pressure less than 90 mmHg. Labile blood pressures most likely multifactorial in setting of adrenal insufficiency, high doses of pain medications along with tizanidine which she takes at home. Discussed with the patient about decreasing dose of pain medication though she is not willing to decrease her pain medication stating that she has been on high dosage of medications for a long time. States she takes Dilaudid 8 mg 4 times a day, tizanidine 8 mg 4 times a day. Cortisol levels appreciated to 2.89 at 4 AM. Consistent with adrenal insufficiency. Start on stress dose steroids with hydrocortisone 100 mg every 6 hourly. Will plan to discharge on prednisone 10 mg twice daily for 2 weeks followed by 10 mg daily to the time she follows up with her PCP or rn outpatient surgery as an outpatient. Check orthostatic every 6 hourly. Continue with IV fluid at 100 cc/h. Will discontinue IV fluids when blood pressure stabilizes. Discussed with the patient regarding further changes in directions of antihypertensive going forward. Discussed she should take half a dose of her home dose of telmisartan if her blood pressures are more than 130 systolic. If blood pressures are persistently over 160 mmHg she can take 25 mg hydralazine 3 times a day as needed. If blood pressures persistently around 180 she can also take a combination of hydrochlorothiazide/spironolactone. Discussed that Coreg is not a good as needed medication. Patient verbalized understanding and is agreeable with the above plan. Low concerns for infection for now. Patient does not have any leukocytosis, does not give any localizing symptom. Check procalcitonin. UA negative for any concern for UTI. Denies any signs or symptoms of pneumonia. Currently saturating well on room air. Follow-up blood cultures. Regular diet Full code Heparin for DVT prophylaxis Famotidine for PUD prophylaxis Can plan to transfer to [facility] if blood pressures remain stable. Attestations Medical Necessity Statement*: Requires further hospitalization for management of labile blood pressures with concerns for hypotension in a patient with resistant hypertension, adrenal insufficiency leading to syncope Diagnoses Hypotension due to drugs I95.2 Hypotension type: hypotension due to drug Labile hypertension R09.89 Hypothyroid E03.9 DM2 (diabetes mellitus, type 2) E11.9 CKD (chronic kidney disease) N18.9 Polypharmacy Z79.899 Bipolar 1 disorder F31.9 Syncope R55 Adrenal insufficiency E27.40
[2024-06-12] MEDS: LORazepam 2 mg Tablet PO (20:00)
[2024-06-12] MEDS: zolpidem 5 mg Tablet 10 MG PO (20:01)
[2024-06-12] MEDS: lurasidone 80 mg Tablet PO (20:01)
[2024-06-13] VITALS (16 sets, daily range): BP systolic 124–161; BP diastolic 82–124; PULSE 62–89; RESP 12–100; TEMP 36.6–37.1; O2SAT 97–100
[2024-06-13] MEDS: heparin 5,000 unit/mL INJ 1 mL 5000 UNIT SUBCUT ×2 (01:25→10:56)
[2024-06-13] MEDS: hydrocortisone 100 mg/2 mL SDV IVP ×3 (01:25→13:21)
[2024-06-13 03:19] LABS: Basophils % 0.5 %; Lymphocytes # 0.8 10^3/uL (0.8-4.8); Lymphocytes % 11.3 %; Mean Corpuscular HGB Conc 31.1 g/dL (30-55); Mean Corpuscular Hemoglobin 29.3 pg (27-33); Mean Corpuscular Volume 94.4 fl (85-98); Mean Platelet Volume 11.6 fL (7.4-10.4); Monocytes # 0.1 10^3/uL (0.2-0.9); Monocytes % 1.1 %; Neutrophils # 5.75 10^3/uL (1.8-7.7); Neutrophils % 86.2 %; Nucleated Red Blood Cells % 0 %; Platelet Count 266 10^3/cmm (157-399); Red Blood Count 3.92 10^6/uL (3.85-5.65); Red Cell Distribution Width 14.7 % (12.1-15.1); White Blood Count 6.66 10^3/uL (3.29-11.43)
[2024-06-13 03:49] LABS: Alanine Aminotransferase 22 U/L (0-33); Albumin Level 3.9 g/dL (3.5-5.2); Alkaline Phosphatase 50 U/L (35-105); Anion Gap 13.2 (5-19); Aspartate Amino Transferase 12 U/L (0-32); Blood Urea Nitrogen 9 mg/dL (6-20); Calcium 8.4 mg/dL (8.5-10.5); Carbon Dioxide 23 mmol/L (22-29); Chloride 106 mmol/L (98-107); Creatinine Clr Calc Pharmacy 59.1789; Globulin 2.4 g/dL (1.3-4.6); Glomerular Filtration Rate 44.1 mL/min (90-130); Glucose 178 mg/dL (65-115); Osmolality Calculated 289 mOsm/kg (285-295); Potassium 4.2 mmol/L (3.5-5.1); Sodium 138 mmol/L (136-145); Total Bilirubin 0.2 mg/dL (0.15-1.2); Total Protein 6.3 g/dL (6.6-8.7)
[2024-06-13] MEDS: allopurinol 300 mg Tablet PO (05:48)
[2024-06-13] MEDS: LORazepam 1 mg Tablet PO ×2 (05:48→11:49)
[2024-06-13] MEDS: lamoTRIgine 100 mg Tablet 200 MG PO (05:48)
[2024-06-13] MEDS: tizanidine 4 mg Tablet 8 MG PO ×2 (08:36→13:21)
[2024-06-13] MEDS: losartan 50 mg Tablet PO (08:37)
[2024-06-13] MEDS: lithium carbonate 300 mg Capsule PO (08:38)
[2024-06-13] MEDS: levothyroxine 75 mcg Tablet PO (08:39)
[2024-06-13] MEDS: famotidine 20 mg Tablet PO (08:39)
[2024-06-13] MEDS: acetaminophen 325 mg Tablet 650 MG PO (10:55)
--- NOTE | 2024-06-13 12:52 | PM.DCS ---
Discharge Providers Date of Admission: 06/11/24 15:08 Date of Discharge: June 13, 2024 Attending Provider at Admission: Kervin Brar MD Attending Provider at Discharge: Kervin Brar MD Primary Care Provider: Michelle Rico Diagnoses at Discharge Discharge Diagnosis (1) Hypotension: Status: Acute Qualifiers: Hypotension type: hypotension due to drug Qualified Code(s): I95.2 - Hypotension due to drugs (2) Labile hypertension: Status: Acute (3) Hypothyroid: Status: Acute (4) DM2 (diabetes mellitus, type 2): Status: Acute (5) CKD (chronic kidney disease): Status: Acute (6) Polypharmacy: Status: Acute (7) Bipolar 1 disorder: Status: Acute (8) Syncope: Status: Acute (9) Adrenal insufficiency: Status: Acute Permanent problem details: Cortisol level at 4 AM 2.89 on 06/12/2024 Reason for Visit Reason for Visit: hypotensive rapid Hospital Course Hospital Course Nina Garcia is a 44 year old female with past medical history of labile hypertension, uncontrolled hypertension in past, type 2 diabetes mellitus, CKD, labile hypothyroidism, hyperlipidemia, recently on fludrocortisone as needed for hypotension was sent into the ER as a rapid response from endocrinology office where she had an episode of syncope. As per the ER documentation patient stood up in the endocrine office and her knees buckled down and she collapsed on the ground. In the ER she was found to have a systolic of 60 to 70 mmHg. She denies of having any nausea, vomiting, headache, dizziness, chest pain. On examination patient is 110 systolic mmHg after receiving 2 L of IV fluid bolus with normal saline at 150 cc/h running currently. Patient states she has had labile blood pressures recently and has been directed by cardiology office to take medications as followed. She is to take only telmisartan if blood pressure is between 100-120 systolic, 120-130 take carvedilol and telmisartan, 130-180 systolic take telmisartan, carvedilol and hydralazine. Above 180 systolic take telmisartan, carvedilol, hydralazine, spironolactone/HCTZ. Take fludrocortisone only systolic blood pressures less than 90 mmHg. Currently mostly she takes telmisartan and Coreg daily. Today morning when she woke up her blood pressure was 96 systolic so she did not take her any of her antihypertensive. She also did not take cortisone. She has been compliant with her levothyroxine. Patient was admitted to the hospital for evaluation and management of syncope in setting of hypotension. She does carry history of resistant hypertension on multiple antihypertensive in the past. Patient is on as needed blood pressure regimen for now as per cardiology nurse. Patient was started on IV fluid boluses after which her blood pressures improved. Her antihypertensive, or discontinued. furniture mover helper cortisol levels were checked which are consistent with adrenal insufficiency with cortisol level of 2.89. TSH levels were rechecked which were consistent with persistent hypothyroidism. Her care were discussed with her outpatient marine diesel mechanic after which she was started on stress dose steroids and increased dose of levothyroxine. She was supposed to be discharged on 06/12 but her blood pressure dropped after getting her home dose of valsartan. She responded well to the treatment her blood pressure is better controlled. She has been discharged hemodynamically stable condition on further adjusted antihypertensive. She has been advised that if her blood pressures are more than 120 mmHg to take half her dose of telmisartan, if remain more than 160 mmHg to take hydralazine 25 mg 3 times a day as needed and if they continue to trend up then she can take her home dose of spironolactone. She has been advised to maintain a blood pressure diary and follow-up with her primary care provider over the next 2 weeks for further adjustment of antihypertensive. Physical Exam Narrative: General: No acute distress, AO x3 HEENT: PERRLA, pupils bilaterally equal and reactive Chest: Normal vesicular breath sounds, no added sounds, equal good air entry bilaterally CVS: S1-S2 regular, no murmurs, no tachycardia, no gallops, no rubs Abdomen: Soft, nontender, no organomegaly, bowel sounds present Neuro: No focal deficits, no facial deformity, AO x3, power 5/5 in all limbs Discharge Data Studies Completed and Pending Completed Studies During Hospitalization Category Date Time Status XR shoulder LT min 2V* [id number] Stat Exams 06/11/24 14:03 Completed Pending at discharge Category Date Time Status Blood Culture Stat Lab 06/11/24 14:01 Results Lamotrigine (Lamictal) Level Routine Lab 06/11/24 19:27 Received Radiology Impressions Shoulder X-Ray 06/11/24 14:03 IMPRESSION: Normal LEFT shoulder. Laboratory Results WBC 6.66 10^3/uL (3.29-11.43) 06/13/24 02:57 RBC 3.92 10^6/uL (3.85-5.65) 06/13/24 02:57 Hgb 11.50 g/dL (11.27-16.99) 06/13/24 02:57 Hct 37.0 % (36-47) 06/13/24 02:57 MCV 94.4 fl (85-98) 06/13/24 02:57 MCH 29.3 pg (27-33) 06/13/24 02:57 MCHC 31.1 g/dL (30-55) 06/13/24 02:57 RDW 14.7 % (12.1-15.1) 06/13/24 02:57 Plt Count 266 10^3/cmm (157-399) 06/13/24 02:57 MPV 11.6 fL (7.4-10.4) H 06/13/24 02:57 Neut % (Auto) 86.2 % 06/13/24 02:57 Lymph % (Auto) 11.3 % 06/13/24 02:57 [place] % (Auto) 1.1 % 06/13/24 02:57 Eos % (Auto) 0.0 % 06/13/24 02:57 Baso % (Auto) 0.5 % 06/13/24 02:57 Neut # (Auto) 5.75 10^3/uL (1.8-7.7) 06/13/24 02:57 Lymph # (Auto) 0.8 10^3/uL (0.8-4.8) 06/13/24 02:57 [place] # (Auto) 0.1 10^3/uL (0.2-0.9) L 06/13/24 02:57 Eos # (Auto) 0.0 10^3/uL (0.0-0.8) 06/13/24 02:57 Baso # (Auto) 0.0 10^3/uL (0.0-0.1) 06/13/24 02:57 Nucleated RBC % (auto) 0 % 06/13/24 02:57 Nucleated RBCs # 0.0 /100WBC 06/13/24 02:57 Sodium 138 mmol/L (136-145) 06/13/24 02:57 Potassium 4.2 mmol/L (3.5-5.1) 06/13/24 02:57 Chloride 106 mmol/L (98-107) 06/13/24 02:57 Carbon Dioxide 23 mmol/L (22-29) 06/13/24 02:57 Anion Gap 13.2 (5-19) 06/13/24 02:57 BUN 9 mg/dL (6-20) 06/13/24 02:57 Creatinine 1.3 mg/dL (0.5-0.9) H 06/13/24 02:57 GFR Calculation 44.1 mL/min (90-130) L 06/13/24 02:57 Glucose 178 mg/dL (65-115) H 06/13/24 02:57 Calculated Osmolality 289 mOsm/kg (285-295) 06/13/24 02:57 Lactic Acid 1.9 mmol/L (0.5-2.2) 06/11/24 13:58 Calcium 8.4 mg/dL (8.5-10.5) L 06/13/24 02:57 Phosphorus 3.0 mg/dL (2.5-4.5) 06/12/24 03:57 Magnesium 1.9 mg/dL (1.7-2.3) 06/12/24 03:57 Total Bilirubin 0.2 mg/dL (0.15-1.2) 06/13/24 02:57 AST 12 U/L (0-32) 06/13/24 02:57 ALT 22 U/L (0-33) 06/13/24 02:57 Alkaline Phosphatase 50 U/L (35-105) 06/13/24 02:57 Troponin T Baseline < 6 ng/L (0-10) 06/11/24 13:34 Troponin T 120 Minute 9.48 ng/L (0-10) 06/11/24 15:40 Delta Troponin T 3.78955 ABS# (0-10) 06/11/24 15:40 Troponin T Hi Sens 6Hr 6.00 ng/L (0-10) 06/11/24 19:27 Troponin T Hi Sens 6Hr Delta 0.68942 ng/L (0-12) 06/11/24 19:27 Total Protein 6.3 g/dL (6.6-8.7) L 06/13/24 02:57 Albumin 3.9 g/dL (3.5-5.2) 06/13/24 02:57 Globulin 2.4 g/dL (1.3-4.6) 06/13/24 02:57 Procalcitonin 0.12 ng/mL (0-0.5) 06/11/24 19:27 TSH 85.93 uIU/mL (0.27-4.20) H 06/11/24 10:40 Free T4 0.57 ng/dL (0.82-1.77) L 06/11/24 10:40 Random Cortisol 2.89 ug/dL (2.47-19.5) 06/12/24 03:57 Urine Color Yellow (Yellow) 06/11/24 12:30 Urine Appearance Clear (CLEAR) 06/11/24 12:30 Urine pH 6.0 (5-7) 06/11/24 12:30 Ur Specific [place] 1.004 (1.005-1.030) L 06/11/24 12:30 Urine Protein Negative (Negative) 06/11/24 12:30 Urine Glucose (UA) Negative (Normal) 06/11/24 12:30 Urine Ketones Negative (Negative) 06/11/24 12:30 Urine Blood Negative (Negative) 06/11/24 12:30 Urine Nitrate Negative (Negative) 06/11/24 12:30 Urine Bilirubin Negative (Negative) 06/11/24 12:30 Urine Urobilinogen 0.2 mg/dL (Negative) 06/11/24 12:30 Ur Leukocyte Esterase 2+ (Negative) A 06/11/24 12:30 Urine RBC 0-2 /hpf (0-2) 06/11/24 12:30 Urine WBC 51-100 /hpf (0-5) H 06/11/24 12:30 Ur Squamous Epith Cells 6-10 /hpf (0-5) 06/11/24 12:30 Amorphous Sediment Not Reportable 06/11/24 12:30 Urine Bacteria 4+ /hpf (NONE) H 06/11/24 12:30 Hyaline Casts 0.81 /lpf 06/11/24 12:30 [place] 0.2 mmol/L (0.6-1.2) L 06/12/24 03:57 Vitals Last Vital Signs Temp 97.8 F 06/13/24 04:00 Pulse 72 06/13/24 12:00 Resp 25 H 06/13/24 12:00 BP 137/93 06/13/24 12:00 Pulse Ox 97 06/13/24 12:00 O2 Del Method Room Air 06/13/24 12:00 Discharge Plan Discharge Patient Disposition: Home Condition: Stable Prescriptions: New hydralazine 50 mg Tablet 25 mg PO TID PRN (Reason: Anxiety) 30 Days Qty: 90 0RF prednisone 10 mg tablet 10 mg PO DIRECTED Qty: 42 2RF Rx Instructions: orally; 10 mg twice daily for next 2 weeks followed by 10 mg daily levothyroxine 112 mcg capsule 112 mcg PO DAILY Qty: 30 0RF Continued zolpidem 10 mg tablet 10 mg PO BEDTIME PRN (Reason: Insomnia) Qty: 30 5RF prazosin 2 mg capsule 2 mg PO .qhs Qty: 60 11RF tizanidine 4 mg tablet 8 mg PO QID spironolacton-hydrochlorothiaz 25-25 mg tablet 1 tab PO DAILY hydromorphone [Dilaudid] 4 mg tablet 4 mg PO Q4H telmisartan 80 mg tablet 40 mg PO DAILY (DME) pen needle, diabetic [1st Tier Unifine Pentips] 32 gauge x 5/32 needle See Rx Instructions .Route Qty: 50 0RF Rx Instructions: As directed allopurinol 300 mg tablet 300 mg PO QAM lorazepam 2 mg tablet See Rx Instructions PO .COMPLEX Qty: 60 5RF Rx Instructions: Take one half tab (1mg) by mouth in AM and at noon, then take one tab (2mg) at bedtime lithium carbonate 300 mg capsule 300 mg PO BID Qty: 60 11RF lamotrigine 200 mg tablet 200 mg PO QAM Qty: 30 11RF Ozempic 2 mg/dose (8 mg/3 mL) pen injector See Rx Instructions .ROUTE .COMPLEX Qty: 3 0RF Dose Instruction: INJECT 2MG (0.75ML) SUB-Q ONCE WEEKLY(ON SATURDAYS) Rx Instructions: INJECT 2MG (0.75ML) SUB-Q ONCE WEEKLY(ON SATURDAYS) lurasidone 80 mg tablet 80 mg PO BEDTIME Rx Instructions: must administer with food (at least 350 calories) potassium chloride 20 mEq tablet,ER particles/crystals 10 meq PO DAILY Qty: 1 0RF ondansetron 8 mg tablet,disintegrating 8 mg PO Q8H PRN (Reason: Nausea And Vomiting) promethazine 25 mg suppository 25 mg ME Q6H PRN (Reason: nausea and vomiting) Qty: 12 0RF No Action hydralazine 50 mg tablet 50 mg PO DAILY PRN (Reason: Anxiety) carvedilol 6.25 mg tablet 6.25 mg PO BID Qty: 180 1RF fludrocortisone 0.1 mg tablet 0.1 mg PO BEDTIME Qty: 90 3RF levothyroxine 75 mcg tablet 75 mcg PO DAILY nitrofurantoin monohyd/m-cryst [Macrobid] 100 mg capsule 100 mg PO BID 7 Days Qty: 14 0RF Rx Instructions: must administer with a meal/food Discharge Orders: Discharge Order (Routine); Ordered 06/13/24 Ordered By: Kervin Brar Referrals: Michelle Rico FNP [Primary Care Provider] - 2 weeks Carol Toure MD [Physician] - 09/05/24 8:45 am ([facility] Endocrinology will be calling with a sooner appointment. ) Discharge Diet: Cardiac Discharge Activity: Resume usual activity and Increase activity as tolerated Patient Instructions: Levothyroxine (By mouth), Prednisone (By mouth), Hydralazine (By mouth), Syncope, Opioid Safety Activity Restrictions/Additional Instructions: Your goal blood pressure is between 140/90?100/60 mmHg. Take prednisone as prescribed. For now take 10 mg twice daily for next 2 weeks followed by 10 mg daily till the time you follow-up with your marine diesel mechanic. Please check your blood pressures daily and maintain a blood pressure diary and follow-up with your primary care provider within next 2 weeks. If your blood pressures are more than 120 mmHg you can take your telmisartan, if they are more than 160 mmHg you can take hydralazine 50 mg 3 times a day as needed, if they tend to go more than 180 even after taking hydralazine he can take your dose of spironolactone. Your dose of levothyroxine has been increased 112 mcg daily. Please recheck thyroid profile within next 1 week. Discharge Attestations Time Spent in Discharge Care*: greater than 30 min Specific Discharge Activities: educating patient, discussing with pcp/other providers, discussing with mattress spring encaser/social workers/dc planners, documenting/other paperwork and evaluating patient/reviewing data Status at Discharge: Cognitive status at discharge: cognitively intact, Behavioral status at discharge: cooperative, Functional status at discharge: independent ambulation, Overall status at discharge: patient is back to baseline Quality Metrics Clinical Quality Measures [ No reported AMI, CVA or VTE this stay] Coding Level of Care Code 91908 Total time (in minutes) for Discharge: 60 Diagnoses Hypotension due to drugs I95.2 Hypotension type: hypotension due to drug Labile hypertension R09.89 Hypothyroid E03.9 DM2 (diabetes mellitus, type 2) E11.9 CKD (chronic kidney disease) N18.9 Polypharmacy Z79.899 Bipolar 1 disorder F31.9 Syncope R55 Adrenal insufficiency E27.40
--- NOTE | 2024-06-13 13:50 | PC.NURSE ---
Discharge instructions given to patient and spouse, IV removed, prescriptions sent to pharmacy.
[2024-06-16 08:28] LABS: Lamotrigine (Lamictal) Level <0.5 mcg/mL (2.5-15.0)
== END 2024-06-13 13:35 | disposition home or self-care (01) | DRG 644 ==
LOC: ER 12:31 → ICU 15:08
PROVIDERS: Admitting Provider Student in an Organized Health Care Education/Training Program; Emergency Provider Family Medicine; PCP Nurse Practitioner Family; Visit Provider Student in an Organized Health Care Education/Training Program
DX: E27.40 Unspecified adrenocortical insufficiency (principal); F31.89 Other bipolar disorder; I95.9 Hypotension, unspecified; E03.9 Hypothyroidism, unspecified; E11.22 Type 2 diabetes mellitus with diabetic chronic kidney disease; I12.9 Hypertensive chronic kidney disease with stage 1 through stage 4 chronic kidney disease, or unspecified chronic kidney disease; N18.9 Chronic kidney disease, unspecified; Z79.85 Long-term (current) use of injectable non-insulin antidiabetic drugs; Z86.711 Personal history of pulmonary embolism
CPT/HCPCS: 36415; 73030; 80053; 80175; 80178; 81001; 82533; 83605; 83735; 84100; 84145; 84439; 84443; 84484; 85025; 87040; 87077; 87086; 87186; 93005; 94664; 96361; 96372; 96374; 96376; 99291; 99292; J0696; J1200; J1644; J1720; J2360; J3010; J7030

== ENCOUNTER 2024-06-18 07:51 | Outpatient (CLI) | payer OTHER, SELFPAY ==
[2024-06-18 08:30] LABS: Bilirubin Urine Negative (Negative); Blood Urine Negative (Negative); Glucose Urine UA Negative (Normal); Ketones Urine Negative (Negative); Leukocyte Esterase Urine Negative (Negative); Nitrate Urine Negative (Negative); Protein Urine Negative (Negative); Specific Gravity, Urine 1.011 (1.005-1.030); Urine Appearance Clear (CLEAR); Urine Color Yellow (Yellow); pH Urine 7.5 (5-7)
[2024-06-18 08:35] LABS: Bacteria Urine None Seen /hpf; RBC Urine 0-2 /hpf (0-2); Squamous Epithelial Cell Urine 0-5 /hpf (0-5); WBC Urine 0-5 /hpf (0-5)
[2024-06-18 09:02] LABS: Lithium 0.8 mmol/L (0.6-1.2)
== END 2024-06-18 07:52 | disposition home or self-care (01) ==
LOC: LAB 07:56
PROVIDERS: Psychiatry & Neurology Psychiatry; PCP Nurse Practitioner Family; Visit Provider Nurse Practitioner Gerontology
DX: I12.9 Hypertensive chronic kidney disease with stage 1 through stage 4 chronic kidney disease, or unspecified chronic kidney disease (principal); R31.9 Hematuria, unspecified; R10.9 Unspecified abdominal pain
CPT/HCPCS: 36415; 80178; 81001

== ENCOUNTER 2024-06-21 12:09 | Outpatient (CLI) | payer OTHER, SELFPAY ==
[2024-06-21 12:46] LABS: Bilirubin Urine Negative (Negative); Blood Urine Negative (Negative); Glucose Urine UA 1+ (Normal); Ketones Urine 1+ (Negative); Leukocyte Esterase Urine Negative (Negative); Nitrate Urine Negative (Negative); Protein Urine 1+ (Negative); Urine Appearance Cloudy (CLEAR); Urine Color Yellow (Yellow)
[2024-06-21 12:51] LABS: Bacteria Urine 3+ /hpf; Hyaline Casts Urine 47.99 /lpf; RBC Urine 0-2 /hpf (0-2)
[2024-06-21 12:57] LABS: Albumin Level 4.3 g/dL (3.5-5.2); Anion Gap 14.2 (5-19); Blood Urea Nitrogen 22 mg/dL (6-20); Calcium 8.6 mg/dL (8.5-10.5); Carbon Dioxide 28 mmol/L (22-29); Chloride 100 mmol/L (98-107); Glomerular Filtration Rate 37.4 mL/min (90-130); Glucose 151 mg/dL (65-115); Magnesium 2.3 mg/dL (1.7-2.3); Osmolality Calculated 290 mOsm/kg (285-295); Phosphorus 4.4 mg/dL (2.5-4.5); Potassium 5.2 mmol/L (3.5-5.1); Sodium 137 mmol/L (136-145); Uric Acid 4.9 mg/dL (2.4-5.7)
[2024-06-21 13:04] LABS: Urine Creatinine 178 mg/dL (28-217)
[2024-06-21 13:09] LABS: UPRO/UCREAT Ratio 0.25 mg/mg CR; Urine Protein Random 44 mg/dL
[2024-06-21 13:19] LABS: Add Urine Culture? No; Coarse Granular Casts Urine 0-4 /lpf
== END 2024-06-21 12:10 | disposition home or self-care (01) ==
PROVIDERS: PCP Nurse Practitioner Family; Visit Provider Nurse Practitioner Gerontology
DX: N18.31 Chronic kidney disease, stage 3a (principal)
CPT/HCPCS: 36415; 80048; 81001; 82040; 82570; 83735; 84100; 84156; 84550; 85018

== ENCOUNTER 2024-06-27 09:28 | Emergency (ER) | payer OTHER, SELFPAY ==
[2024-06-27] VITALS (10 sets, daily range): BP systolic 133–171; BP diastolic 86–121; PULSE 96–116; RESP 12–20; TEMP 36.8; O2SAT 96–98; BMI 30.7
--- NOTE | 2024-06-27 09:55 | ECG_ITS ---
[facility] Test Date: 2024-06-27 Pat Name: Nina Garcia Department: Room: Gender: Female Entry Table Operator: : 1980 Requested By: Franki Stiles Order Number: [id number] Chan MD: Amber Colindres M.D. Measurements Intervals [place] Rate: 114 P: 61 IA: 141 QRS: 87 QRSD: 83 T: 64 QT: 300 QTc: 413 Interpretive Statements SINUS TACHYCARDIA ABNORMAL RHYTHM ECG Compared to ECG 06/11/2024 19:53:37 Sinus rhythm no longer present T-wave abnormality no longer present Electronically Signed On 06-27-2024 17:08:03 CDT by Amber Colindres M.D. [email or web address]
--- NOTE | 2024-06-27 10:48 | XRR_ITS ---
PROCEDURE INFORMATION: Exam: XR Chest Exam date and time: 06/27/2024 11:08 AM Age: 44 years old Clinical indication: Other: N/v; Additional info: Chest pain TECHNIQUE: Imaging protocol: Radiologic exam of the chest. Views: 1 view. COMPARISON: CT chest abdpel [id number] 03/08/2024 7:41 PM FINDINGS: Lungs: Unremarkable. No consolidation. Pleural spaces: Unremarkable. No pleural effusion. No pneumothorax. Heart/Mediastinum: Unremarkable. No cardiomegaly. Bones/joints: Unremarkable. XR/XR chest 1V portable [id number] IMPRESSION: No acute findings.
[2024-06-27] MEDS: diphenhydrAMINE 50 mg/mL SDV 1mL IVP (11:12)
[2024-06-27] MEDS: prochlorperazine 10 mg/2 mL Inj IVP (11:14)
[2024-06-27 11:21] LABS: Basophils # 0.1 10^3/uL (0.0-0.1); Basophils % 0.4 %; Eosinophils # 0.1 10^3/uL (0.0-0.8); Eosinophils % 0.5 %; Hematocrit 44.6 % (36-47); Lymphocytes # 2.6 10^3/uL (0.8-4.8); Lymphocytes % 16.6 %; Mean Corpuscular HGB Conc 31.8 g/dL (30-55); Mean Corpuscular Hemoglobin 29.6 pg (27-33); Mean Corpuscular Volume 93.1 fl (85-98); Mean Platelet Volume 11.1 fL (7.4-10.4); Monocytes % 6.3 %; Neutrophils # 11.88 10^3/uL (1.8-7.7); Neutrophils % 75.3 %; Nucleated Red Blood Cells % 0 %; Platelet Count 274 10^3/cmm (157-399); Red Blood Count 4.79 10^6/uL (3.85-5.65); Red Cell Distribution Width 15.7 % (12.1-15.1); White Blood Count 15.79 10^3/uL (3.29-11.43)
--- NOTE | 2024-06-27 11:31 | ED_ITS ---
HPI - Nausea/Vomiting/Diarrhea 2 General: Chief complaint: Nausea/Vomiting/Diarrhea Stated complaint: NV Time Seen by Provider: 06/27/24 10:48 History of Present Illness: Patient presents to the ER with nausea vomiting diarrhea chest pain since about 9 PM last night. Patient denies any fevers at this time. Patient says her blood pressure gets higher than she gets this way. Patient is on a medicine to raise her blood pressure and she thinks it is too strong. There is no other sick contacts noted in the house. This has happened before. Related Data Home Medications Medication Instructions Recorded Confirmed ondansetron 8 mg disintegrating 8 mg PO Q8H PRN Nausea And Vomiting 12/09/21 06/27/24 tablet allopurinol 300 mg tablet 300 mg PO QAM 11/25/22 06/27/24 lurasidone 80 mg tablet 80 mg PO BEDTIME 03/09/24 06/27/24 hydromorphone 4 mg tablet 4 mg PO Q4H 05/14/24 06/27/24 (Dilaudid) spironolactone 25 1 tab PO DAILY 05/14/24 06/27/24 mg-hydrochlorothiazide 25 mg tablet telmisartan 80 mg tablet 40 mg PO DAILY 05/14/24 06/27/24 tizanidine 4 mg tablet 8 mg PO QID 05/14/24 06/27/24 levothyroxine 75 mcg tablet 75 mcg PO DAILY 06/06/24 06/27/24 Previous Rx's Medication Instructions Recorded pen needle, diabetic 32 gauge x #50 ea 05/28/22 5/32 (1st Tier Unifine Pentips) promethazine 25 mg rectal 25 mg PA Q6H PRN nausea and 09/30/23 suppository vomiting #12 ea lamotrigine 200 mg tablet 200 mg PO QAM #30 tabs 01/02/24 lorazepam 2 mg tablet See Rx Instructions PO .COMPLEX 01/03/24 #60 tabs fludrocortisone 0.1 mg tablet 0.1 mg PO BEDTIME #90 tabs 05/17/24 prazosin 2 mg capsule 2 mg PO .qhs #60 caps 05/22/24 zolpidem 10 mg tablet 10 mg PO BEDTIME PRN Insomnia #30 05/22/24 tabs hydralazine 50 mg tablet 25 mg (1/2 x 50 mg) PO TID PRN 06/12/24 Anxiety 30 days #90 tabs levothyroxine 112 mcg capsule 112 mcg PO DAILY #30 caps 06/12/24 prednisone 10 mg tablet 10 mg PO DIRECTED #42 tabs 06/12/24 lithium carbonate 450 mg 450 mg PO .qhs #30 tabs 06/18/24 tablet,extended release semaglutide 2 mg/dose (8 mg/3 mL) See Rx Instructions .Route 06/25/24 subcutaneous pen injector (Ozempic) .COMPLEX #3 mL Allergies Allergy/AdvReac Type Severity Reaction Status Date / Time midodrine Allergy Intermediate ALGY-Rash Verified 06/11/24 07:34 aspirin Allergy due to BUN Verified 06/11/24 07:34 levels coconut Allergy hives Verified 06/11/24 07:34 ketorolac [From Toradol] Allergy hives Verified 06/11/24 07:34 meloxicam [From Mobic] Allergy hives Verified 06/11/24 07:34 NSAIDS (Non-Steroidal Allergy Unknown Verified 06/11/24 07:34 Anti-Inflamma Review of Systems 2 General: Reports: 10 or more systems reviewed and unremarkable except in HPI and below PFSH ED 2 PFSH: Medical History Resistant hypertension GERD (gastroesophageal reflux disease) Nausea & vomiting CKD (chronic kidney disease) Hypothyroid Hypertensive urgency, malignant Pulmonary embolism Chest pain at rest Psychiatric care HLD (hyperlipidemia) DM2 (diabetes mellitus, type 2) Chronic back pain Chronic neck and back pain Post traumatic stress disorder (PTSD) Bipolar 1 disorder, depressed, full remission Hypertensive emergency Palpitation Malignant hypertension Chronic renal disease Generalized anxiety disorder Surgical History History of back surgery H/O esophagogastroduodenoscopy (08/12/20) H/O angioplasty History of colonoscopy with polypectomy (08/12/20) History of spinal fusion 10/01/2013- C5-6, ACDFF Dr. Villanueva H/O rectal polypectomy Status post hemilaminotomy 01/06/2012, right L5-S1, disectomy and foraminotomy per Dr. Villanueva History of suburethral sling procedure anterior colporrhapy augmentd with porcine graft, cystoscopy performed on 03/08/[address] Haley History of total hysterectomy 2000 Hx of cholecystectomy History of appendectomy History of bilateral oophorectomy 2011 H/O total thyroidectomy Family History Mother Diabetes Pancreatic cancer Ovarian cancer Father Diabetes Hypertension Stroke COPD (chronic obstructive pulmonary disease) Grandfather Hypertension maternal Heart disease maternal Grandmother Colon cancer maternal Social History Smoking and tobacco/nicotine status: never used tobacco/nicotine Second hand smoke exposure: Yes Alcohol intake: never Substance/Drug Use: never Additional social history: well balanced diet Caregiver/support person: No Lives independently: Yes Household members: spouse Housing: House Marital status: Number of children: 8 Highest education level completed: GED or Equivalent service: No Current occupational status: unemployed Physical Exam 2 Const: COMMON NORMALS: no acute distress, average body habitus, patient oriented x3, no limitations, healthy appearing, alert and well nourished HENMT: COMMON NORMALS: normocephalic, atraumatic, hearing grossly normal bilaterally, external ears normal, Normal external nose present and moist oral mucous membranes HEAD & SCALP: normocephalic and atraumatic NOSE: Normal external nose present EXTERNAL EAR: Yes external ears normal Neck/C-Spine: COMMON NORMALS: no JVD Chest: COMMONS NORMALS: normal inspection of the chest and normal palpation of entire chest wall Resp: COMMON NORMALS: normal respiratory effort, No retractions, No use of accessory muscles and clear to auscultation bilaterally AUSCULTATION: clear to auscultation bilaterally Cardio: COMMON NORMALS: no JVD, regular rate, regular rhythm, S1 normal heart sound present, S2 normal heart sound present, No gallops present (Cardio), No clicks present (Cardio), No murmurs present (Cardio) and No rub (Cardio) R ATE: regular rate RHYTHM: regular rhythm HEART SOUNDS: S1 normal heart sound present and S2 normal heart sound present GI: COMMON NORMALS: Normal to inspection, nondistended, normoactive bowel sounds present, Soft to palpation, non-tender, No hepatosplenomegaly present and no masses PALPATION: Yes Soft to palpation and Yes No hepatosplenomegaly present Neuro: COMMON NORMALS: patient oriented x3 SENSORIUM/ORIENTATION: Yes alert Course 2 Vital Signs: Vital signs: Vital Signs Temperature 98.2 F 06/27/24 10:13 Pulse Rate 116 H 06/27/24 11:17 Respiratory Rate 16 06/27/24 11:17 Blood Pressure 161/107 06/27/24 11:17 Pulse Oximetry 97 06/27/24 11:17 Oxygen Delivery Me thod Room Air 06/27/24 11:17 MDM - Nausea/Vomiting/Diarrhea Medical Decision Making Patient presents to the ER with complaints of nausea vomiting diarrhea chest pain. Patient was worked up in standard chest pain fashion with lab work EKGs chest x-ray all of which were essentially negative except mildly elevated white count of 15.7, low lithium at 0.2, patient was given 10 mg of Compazine, 50 mg Benadryl, for her nausea which helped. Patient was given 4 mg morphine for headache which decreased the pain. Patient will be discharged home to follow-up with her PCP. Medical Records I reviewed the patient's medical records. Lab Data I reviewed the patient's lab results. 06/27/24 11:04 06/27/24 11:04 Radiology Impressions Chest X-Ray 06/27/24 10:48 IMPRESSION: No acute findings. Laboratory Results WBC 15.79 10^3/uL (3.29-11.43) H 06/27/24 11:04 RBC 4.79 10^6/uL (3.85-5.65) 06/27/24 11:04 Hgb 14.20 g/dL (11.27-16.99) 06/27/24 11:04 Hct 44.6 % (36-47) 06/27/24 11:04 MCV 93.1 fl (85-98) 06/27/24 11:04 MCH 29.6 pg (27-33) 06/27/24 11:04 MCHC 31.8 g/dL (30-55) 06/27/24 11:04 RDW 15.7 % (12.1-15.1) H 06/27/24 11:04 Plt Count 274 10^3/cmm (157-399) 06/27/24 11:04 MPV 11.1 fL (7.4-10.4) H 06/27/24 11:04 Neut % (Auto) 75.3 % 06/27/24 11:04 Lymph % (Auto) 16.6 % 06/27/24 11:04 [place] % (Auto) 6.3 % 06/27/24 11:04 Eos % (Auto) 0.5 % 06/27/24 11:04 Baso % (Auto) 0.4 % 06/27/24 11:04 Neut # (Auto) 11.88 10^3/uL (1.8-7.7) H 06/27/24 11:04 Lymph # (Auto) 2.6 10^3/uL (0.8-4.8) 06/27/24 11:04 [place] # (Auto) 1.0 10^3/uL (0.2-0.9) H 06/27/24 11:04 Eos # (Auto) 0.1 10^3/uL (0.0-0.8) 06/27/24 11:04 Baso # (Auto) 0.1 10^3/uL (0.0-0.1) 06/27/24 11:04 Nucleated RBC % (auto) 0 % 06/27/24 11:04 Nucleated RBCs # 0.0 /100WBC 06/27/24 11:04 Sodium 138 mmol/L (136-145) 06/27/24 11:04 Potassium 3.6 mmol/L (3.5-5.1) 06/27/24 11:04 Chloride 96 mmol/L (98-107) L 06/27/24 11:04 Carbon Dioxide 26 mmol/L (22-29) 06/27/24 11:04 Anion Gap 19.6 (5-19) H 06/27/24 11:04 BUN 19 mg/dL (6-20) 06/27/24 11:04 Creatinine 1.3 mg/dL (0.5-0.9) H 06/27/24 11:04 GFR Calculation 44.1 mL/min (90-130) L 06/27/24 11:04 Glucose 148 mg/dL (65-115) H 06/27/24 11:04 Calculated Osmolality 291 mOsm/kg (285-295) 06/27/24 11:04 Calcium 9.4 mg/dL (8.5-10.5) 06/27/24 11:04 Magnesium 2.0 mg/dL (1.7-2.3) 06/27/24 11:04 Total Bilirubin 0.6 mg/dL (0.15-1.2) 06/27/24 11:04 AST 12 U/L (0-32) 06/27/24 11:04 ALT 29 U/L (0-33) 06/27/24 11:04 Alkaline Phosphatase 66 U/L (35-105) 06/27/24 11:04 Troponin T Baseline 8 ng/L (0-10) 06/27/24 11:04 Total Protein 8.0 g/dL (6.6-8.7) 06/27/24 11:04 Albumin 5.2 g/dL (3.5-5.2) 06/27/24 11:04 Globulin 2.8 g/dL (1.3-4.6) 06/27/24 11:04 Lipase 43 U/L (13-60) 06/27/24 11:04 Urine Color Yellow (Yellow) 06/27/24 12:16 Urine Appearance Clear (CLEAR) 06/27/24 12:16 Urine pH 6.0 (5-7) 06/27/24 12:16 Ur Specific [place] 1.014 (1.005-1.030) 06/27/24 12:16 Urine Protein Negative (Negative) 06/27/24 12:16 Urine Glucose (UA) Negative (Normal) 06/27/24 12:16 Urine Ketones Negative (Negative) 06/27/24 12:16 Urine Blood Negative (Negative) 06/27/24 12:16 Urine Nitrate Negative (Negative) 06/27/24 12:16 Urine Bilirubin Negative (Negative) 06/27/24 12:16 Urine Urobilinogen 1.0 mg/dL (Negative) 06/27/24 12:16 Ur Leukocyte Esterase Negative (Negative) 06/27/24 12:16 Amorphous Sediment Not Reportable 06/27/24 12:16 [place] 0.2 mmol/L (0.6-1.2) L 06/27/24 11:04 All radiology interpretation(s) finalized by discharge Discharge Plan Discharge Patient Disposition: Home Clinical Impression: Gastroenteritis Headache Qualifiers: Headache type: unspecified Headache chronicity pattern: acute headache I ntractability: not intractable Qualified Code(s): R51.9 - Headache, unspecified Condition: Stable Prescriptions: No Action zolpidem 10 mg tablet 10 mg PO BEDTIME PRN (Reason: Insomnia) Qty: 30 5RF prazosin 2 mg capsule 2 mg PO .qhs Qty: 60 11RF tizanidine 4 mg tablet 8 mg PO QID spironolacton-hydrochlorothiaz 25-25 mg tablet 1 tab PO DAILY hydromorphone [Dilaudid] 4 mg tablet 4 mg PO Q4H telmisartan 80 mg tablet 40 mg PO DAILY (DME) pen needle, diabetic [1st Tier Unifine Pentips] 32 gauge x /32 needle See Rx Instructions .Route Qty: 50 0RF Rx Instructions: As directed allopurinol 300 mg tablet 300 mg PO QAM lorazepam 2 mg tablet See Rx Instructions PO .COMPLEX Qty: 60 5RF Rx Instructions: Take one half tab (1mg) by mouth in AM and at noon, then take one tab (2mg) at bedtime lamotrigine 200 mg tablet 200 mg PO QAM Qty: 30 11RF fludrocortisone 0.1 mg tablet 0.1 mg PO BEDTIME Qty: 90 3RF lithium carbonate 450 mg tablet extended release 450 mg PO .qhs Qty: 30 11RF Ozempic 2 mg/dose (8 mg/3 mL) pen injector See Rx Instructions .ROUTE .COMPLEX Qty: 3 0RF Dose Instruction: INJECT 2MG (0.75ML) SUB-Q ONCE WEEKLY(ON SATURDAYS) Rx Instructions: INJECT 2MG (0.75ML) SUB-Q ONCE WEEKLY(ON SATURDAYS) lurasidone 80 mg tablet 80 mg PO BEDTIME Rx Instructions: must administer with food (at least 350 calories) levothyroxine 75 mcg tablet 75 mcg PO DAILY ondansetron 8 mg tablet,disintegrating 8 mg PO Q8H PRN (Reason: Nausea And Vomiting) promethazine 25 mg suppository 25 mg PA Q6H PRN (Reason: nausea and vomiting) Qty: 12 0RF hydralazine 50 mg Tablet 25 mg PO TID PRN (Reason: Anxiety) 30 Days Qty: 90 0RF prednisone 10 mg tablet 10 mg PO DIRECTED Qty: 42 2RF Rx Instructions: orally; 10 mg twice daily for next 2 weeks followed by 10 mg daily levothyroxine 112 mcg capsule 112 mcg PO DAILY Qty: 30 0RF Discharge Orders: Discharge ED (Routine); Ordered 06/27/24 Ordered By: Franki Stiles Referrals: Michelle Rico [facility] [Primary Care Provider] - 1 week Patient Instructions: Acute Nausea and Vomiting (DC), Acute Headache (DC) Activity Restrictions/Additional Instructions: Thank you for choosing [facility] for your healthcare needs today. Please realize that you were seen in the emergency department and that we are providing you with an emergency medical screening exam and this may not be a complete and all exclusive of all testing and/or medical workup we may need to determine your element or severity of your illness. It is very important that you follow-up as instructed with your primary care provider or specialist for the additional evaluation and to discuss your medical treatment plan. You may return to the emergency department should you have concerns or if your condition changes or worsens in any way. Coding Level of Care Code ED Spotlight Operator for Ingrid Lindsay
[2024-06-27 11:38] LABS: Alanine Aminotransferase 29 U/L (0-33); Albumin Level 5.2 g/dL (3.5-5.2); Alkaline Phosphatase 66 U/L (35-105); Anion Gap 19.6 (5-19); Aspartate Amino Transferase 12 U/L (0-32); Blood Urea Nitrogen 19 mg/dL (6-20); Calcium 9.4 mg/dL (8.5-10.5); Carbon Dioxide 26 mmol/L (22-29); Chloride 96 mmol/L (98-107); Globulin 2.8 g/dL (1.3-4.6); Glomerular Filtration Rate 44.1 mL/min (90-130); Glucose 148 mg/dL (65-115); Lipase 43 U/L (13-60); Osmolality Calculated 291 mOsm/kg (285-295); Potassium 3.6 mmol/L (3.5-5.1); Sodium 138 mmol/L (136-145); Total Bilirubin 0.6 mg/dL (0.15-1.2)
[2024-06-27 11:41] LABS: Lithium 0.2 mmol/L (0.6-1.2); Troponin(5th) Baseline 8 ng/L (0-10)
[2024-06-27 12:04] LABS: Creatinine Clr Calc Pharmacy 57.8473
[2024-06-27 12:34] LABS: Add Urine Microscopic? NO
[2024-06-27 12:37] LABS: Bilirubin Urine Negative (Negative); Blood Urine Negative (Negative); Glucose Urine UA Negative (Normal); Ketones Urine Negative (Negative); Leukocyte Esterase Urine Negative (Negative); Nitrate Urine Negative (Negative); Protein Urine Negative (Negative); Specific Gravity, Urine 1.014 (1.005-1.030); Urine Appearance Clear (CLEAR); Urine Color Yellow (Yellow)
[2024-06-27 12:45] LABS: Add Urine Culture? No
[2024-06-27 12:46] LABS: Charge for UA Resulting for Rev
--- NOTE | 2024-06-27 12:48 | ECG_ITS ---
[facility] Test Date: 2024-06-27 Pat Name: Nina Garcia Department: Room: Gender: Female Button Tacker: : 1980 Requested By: Franki Stiles Order Number: [id number] Chan MD: Amber Colindres M.D. Measurements Intervals [place] Rate: 95 P: 67 W[place]: 140 QRS: 110 QRSD: 90 T: 51 QT: 338 QTc: 425 Interpretive Statements SINUS RHYTHM WITH SINUS ARRHYTHMIA Compared to ECG 06/27/2024 09:55:57 Sinus tachycardia no longer present Electronically Signed On 06-27-2024 18:01:11 CDT by Amber Colindres M.D. [email or web address]
[2024-06-27] MEDS: morphine 4 mg/mL SDV 1 mL IVP (12:50)
== END 2024-06-27 13:02 | disposition home or self-care (01) ==
PROVIDERS: Emergency Provider Emergency Medicine; PCP Nurse Practitioner Family
DX: R51.9 Headache, unspecified (principal); E11.22 Type 2 diabetes mellitus with diabetic chronic kidney disease; I12.9 Hypertensive chronic kidney disease with stage 1 through stage 4 chronic kidney disease, or unspecified chronic kidney disease; N18.9 Chronic kidney disease, unspecified; I1A.0 Resistant hypertension
CPT/HCPCS: 71045; 80053; 80178; 81003; 83690; 83735; 84484; 85025; 93005; 96374; 96375; 99285; J0780; J1200; J2270

== ENCOUNTER 2024-07-16 09:21 | Outpatient (CLI) | payer OTHER, SELFPAY ==
[2024-07-16 10:41] LABS: Alanine Aminotransferase 24 U/L (0-33); Alkaline Phosphatase 51 U/L (35-105); Anion Gap 10.5 (5-19); Aspartate Amino Transferase 19 U/L (0-32); Blood Urea Nitrogen 14 mg/dL (6-20); Calcium 8.3 mg/dL (8.5-10.5); Carbon Dioxide 31 mmol/L (22-29); Chloride 107 mmol/L (98-107); Chol HDL Ratio 1.96 mg/dL (0.0-4.40); Cholesterol 104 mg/dL (0-200); Free T4 Free Thyroxine 1.06 ng/dL (0.82-1.77); Globulin 2.5 g/dL (1.3-4.6); Glomerular Filtration Rate 44.1 mL/min (90-130); Glucose 81 mg/dL (65-115); HDL Cholesterol 53 mg/dL (60-100); LDL Cholesterol Calculated 38 mg/dL (50-129); LDL HDL Ratio 0.72 RATIO (0.00-3.22); Osmolality Calculated 298 mOsm/kg (285-295); Potassium 4.5 mmol/L (3.5-5.1); Sodium 144 mmol/L (136-145); Total Bilirubin 0.2 mg/dL (0.15-1.2); Total Protein 6.5 g/dL (6.6-8.7); Triglycerides 67 mg/dL (0-150)
[2024-07-16 10:50] LABS: Creatinine Urine, Random 70 mg/dL (28-217); Microalbum Creatinine Ratio Ur 14 mg/dL (0-20); Microalbumin Random Urine 1 ug/dL (0-20)
[2024-07-16 11:21] LABS: Estmated Average Glucose 123; Hemoglobin A1C 5.9 % (4.0-6.0)
== END 2024-07-16 09:22 | disposition home or self-care (01) ==
LOC: LAB 09:22
PROVIDERS: PCP Nurse Practitioner Family; Visit Provider Internal Medicine
DX: E11.9 Type 2 diabetes mellitus without complications (principal); E78.5 Hyperlipidemia, unspecified; E03.9 Hypothyroidism, unspecified
CPT/HCPCS: 36415; 80053; 80061; 82044; 83036; 84439; 84443

== ENCOUNTER → 2024-08-08 10:20 | Outpatient (BNVA) | payer OTHER, SELFPAY | PROVIDERS: PCP Nurse Practitioner Family; Visit Provider Psychiatry & Neurology Psychiatry | DX: Z79.899 Other long term (current) drug therapy (principal) | CPT/HCPCS: 80178 ==

== ENCOUNTER 2024-08-25 22:35 | Emergency (ER) | payer OTHER, SELFPAY ==
--- NOTE | 2024-08-25 22:39 | ECG_ITS ---
[facility]: 2024-[facility]25 Pat Name: Nina Garcia Department: Room: Gender: Female Shoe Associate: : 1980 Requested By: Franki Stiles Order Number: [id number] Chan MD: Rodolfo Chen M.D. Measurements Intervals [place] Rate: 136 P: 54 NV: 139 QRS: 102 QRSD: 86 T: 10 QT: 292 QTc: 440 Interpretive Statements SINUS TACHYCARDIA RIGHT AXIS DEVIATION [QRS AXIS > 100] MINIMAL ST DEPRESSION [0.025+ mV ST DEPRESSION] Compared to ECG 06/27/2024 12:04:27 Right-axis deviation now present ST (T wave) deviation now present Sinus rhythm no longer present Sinus arrhythmia no longer present Electronically Signed On 08-26-2024 20:06:33 SENIOR ENVIRONMENTAL ENGINEER by Rodolfo Chen M.D. [email or web address]
[2024-08-25 22:42] VITALS: BP 173/111; PULSE 140; RESP 20; TEMP 36.6; O2SAT 97; BMI 30.4
--- NOTE | 2024-08-25 22:49 | XRR_ITS ---
PROCEDURE INFORMATION: Exam: XR Chest Exam date and time: 08/25/2024 10:59 PM Age: 44 years old Clinical indication: Chest pressure; Prior surgery; Surgery date: 6+ months; Surgery type: Cervical fusion; Patient HX: C/O chest pain TECHNIQUE: Imaging protocol: Radiologic exam of the chest. Views: 1 view. COMPARISON: CR XR chest 1V portable [id number] 06/27/2024 11:08 AM FINDINGS: Lungs: Unremarkable. No consolidation. Pleural spaces: Unremarkable. No pleural effusion. No pneumothorax. Heart/Mediastinum: Unremarkable. No cardiomegaly. Bones/joints: Unremarkable. XR/XR chest 1V portable [id number] IMPRESSION: No acute findings.
--- NOTE | 2024-08-25 23:00 | ED_ITS ---
HPI - Recheck/Abnormal Lab/Rx 2 General: Chief Complaint: Recheck/Abnormal Lab/Rx Stated Complaint: High BP CP headache Time Seen by Provider: 08/25/24 22:36 History of Present Illness: Patient presents to the ER with hyper nausea vomiting and chest pain she had this been going on for the last couple days. Her blood pressure has been high which has been causing these. Patient said he gets this way very often. Patient has been able to take all of her normal medicine. Upon arrival patient blood pressure 173/111, pulse 140, Related Data Home Medications Medication Instructions Recorded Confirmed ondansetron 8 mg disintegrating 8 mg PO Q8H PRN Nausea And Vomiting 12/09/21 08/08/24 tablet allopurinol 300 mg tablet 300 mg PO QAM 11/25/22 08/08/24 hydromorphone 4 mg tablet 4 mg PO Q4H 05/14/24 08/08/24 (Dilaudid) spironolactone 25 1 tab PO DAILY 05/14/24 08/08/24 mg-hydrochlorothiazide 25 mg tablet telmisartan 80 mg tablet 40 mg PO DAILY 05/14/24 08/08/24 tizanidine 4 mg tablet 8 mg PO QID 05/14/24 08/08/24 Previous Rx's Medication Instructions Recorded pen needle, diabetic 32 gauge x #50 ea 05/28/22 (1st Tier Unifine Pentips) promethazine 25 mg rectal 25 mg ND Q6H PRN nausea and 09/30/23 suppository vomiting #12 ea lamotrigine 200 mg tablet 200 mg PO QAM #30 tabs 01/02/24 fludrocortisone 0.1 mg tablet 0.1 mg PO BEDTIME #90 tabs 05/17/24 zolpidem 10 mg tablet 10 mg PO BEDTIME PRN Insomnia #30 05/22/24 tabs levothyroxine 112 mcg capsule 112 mcg PO DAILY #30 caps 06/12/24 prednisone 10 mg tablet 10 mg PO DIRECTED #42 tabs 06/12/24 lithium carbonate 450 mg 450 mg PO .qhs #30 tabs 06/18/24 tablet,extended release lorazepam 2 mg tablet See Rx Instructions PO .COMPLEX 07/12/24 #60 tabs prazosin 2 mg capsule 4 mg (2 x 2 mg) PO .qhs #60 caps 08/08/24 lurasidone 120 mg tablet 120 mg PO DAILY #30 tabs 08/16/24 semaglutide 2 mg/dose (8 mg/3 mL) See Rx Instructions .Route 08/20/24 subcutaneous pen injector (Ozempic) .COMPLEX #3 mL Allergies Allergy/AdvReac Type Severity Reaction Status Date / Time midodrine Allergy Intermediate ALGY-Rash Verified 08/08/24 09:19 aspirin Allergy due to BUN Verified 08/08/24 09:19 levels coconut Allergy hives Verified 08/08/24 09:19 ketorolac [From Toradol] Allergy hives Verified 08/08/24 09:19 meloxicam [From Mobic] Allergy hives Verified 08/08/24 09:19 NSAIDS (Non-Steroidal Allergy Unknown Verified 08/08/24 09:19 Anti-Inflamma Review of Systems 2 General: Reports: 10 or more systems reviewed and unremarkable except in HPI and below PFSH ED 2 PFSH: Medical History Resistant hypertension GERD (gastroesophageal reflux disease) Nausea & vomiting CKD (chronic kidney disease) Hypothyroid Hypertensive urgency, malignant Pulmonary embolism Chest pain at rest Psychiatric care HLD (hyperlipidemia) DM2 (diabetes mellitus, type 2) Chronic back pain Chronic neck and back pain Post traumatic stress disorder (PTSD) Bipolar 1 disorder, depressed, full remission Hypertensive emergency Palpitation Malignant hypertension Chronic renal disease Generalized anxiety disorder Surgical History History of back surgery H/O esophagogastroduodenoscopy (08/12/20) H/O angioplasty History of colonoscopy with polypectomy (08/12/20) History of spinal fusion 10/01/2013- C5-6, ACDFF Dr. Villanueva H/O rectal polypectomy Status post hemilaminotomy 01/06/2012, right L5-S1, disectomy and foraminotomy per Dr. Villanueva History of suburethral sling procedure anterior colporrhapy augmentd with porcine graft, cystoscopy performed on 03/08/[address] Haley History of total hysterectomy 2000 Hx of cholecystectomy History of appendectomy History of bilateral oophorectomy 2011 H/O total thyroidectomy Family History Mother Diabetes Pancreatic cancer Ovarian cancer Father Diabetes Hypertension Stroke COPD (chronic obstructive pulmonary disease) Grandfather Hypertension maternal Heart disease maternal Grandmother Colon cancer maternal Social History Smoking and tobacco/nicotine status: never used tobacco/nicotine Second hand smoke exposure: Yes Alcohol intake: never Substance/Drug Use: never Additional social history: well balanced diet Caregiver/support person: No Lives independently: Yes Household members: spouse Housing: House Marital status: Number of children: 8 Highest education level completed: GED or Equivalent service: No Current occupational status: unemployed Physical Exam 2 Const: COMMON NORMALS: no acute distress, average body habitus, patient oriented x3, no limitations, healthy appearing, alert and well nourished HENMT: COMMON NORMALS: normocephalic, atraumatic, hearing grossly normal bilaterally, external ears normal, Normal external nose present and moist oral mucous membranes HEAD & SCALP: normocephalic and atraumatic NOSE: Normal external nose present EXTERNAL EAR: Yes external ears normal Neck/C-Spine: COMMON NORMALS: no JVD Chest: COMMONS NORMALS: normal inspection of the chest and normal palpation of entire chest wall Resp: COMMON NORMALS: normal respiratory effort, No retractions, No use of accessory muscles and clear to auscultation bilaterally AUSCULTATION: clear to auscultation bilaterally Cardio: COMMON NORMALS: no JVD, regular rhythm, S1 normal heart sound present, S2 normal heart sound present, No gallops present (Cardio), No clicks present (Cardio), No murmurs present (Cardio) and No rub (Cardio); negative for regular rate (Tachycardic) RATE: abnormal rate (Tachycardic) RHYTHM: regular rhythm HEART SOUNDS: S1 normal heart sound present and S2 normal heart sound present GI: COMMON NORMALS: Normal to inspection, nondistended, normoactive bowel sounds present, Soft to palpation, non-tender, No hepatosplenomegaly present and no masses PALPATION: Yes Soft to palpation and Yes No hepatosplenomegaly present Neuro: COMMON NORMALS: patient oriented x3 SENSORIUM/ORIENTATION: Yes alert Course 2 Vital Signs: Vital signs: Vital Signs Temperature 98 F 08/25/24 22:42 Pulse Rate 97 08/25/24 23:40 Respiratory Rate 22 H 08/25/24 23:40 Blood Pressure 133/98 08/25/24 23:40 Pulse Oximetry 95 08/25/24 23:40 MDM - Recheck/Abnormal Lab/Rx Medical Decision Making Patient was given 50 mg Benadryl, 5 mg metoprolol, 10 mg of Compazine, this helped her blood pressure and heart rate. Patient is she feeling better but still having a headache. Patient be given 4 mg morphine and then be discharged home. Medical Records I reviewed the patient's medical records. Lab Data I reviewed the patient's lab results. 08/25/24 23:00 08/25/24 23:00 Radiology Impressions Chest X-Ray 08/25/24 22:49 IMPRESSION: No acute findings. Laboratory Results WBC 19.76 10^3/uL (3.29-11.43) H 08/25/24 23:00 RBC 4.85 10^6/uL (3.85-5.65) 08/25/24 23:00 Hgb 14.50 g/dL (11.27-16.99) 08/25/24 23:00 Hct 45.7 % (36-47) 08/25/24 23:00 MCV 94.2 fl (85-98) 08/25/24 23:00 MCH 29.9 pg (27-33) 08/25/24 23:00 MCHC 31.7 g/dL (30-55) 08/25/24 23:00 RDW 14.8 % (12.1-15.1) 08/25/24 23:00 Plt Count 330 10^3/cmm (157-399) 08/25/24 23:00 MPV 10.8 fL (7.4-10.4) H 08/25/24 23:00 Neut % (Auto) 85.6 % 08/25/24 23:00 Lymph % (Auto) 7.4 % 08/25/24 23:00 [place] % (Auto) 4.0 % 08/25/24 23:00 Eos % (Auto) 0.0 % 08/25/24 23:00 Baso % (Auto) 0.3 % 08/25/24 23:00 Neut # (Auto) 16.91 10^3/uL (1.8-7.7) H 08/25/24 23:00 Lymph # (Auto) 1.5 10^3/uL (0.8-4.8) 08/25/24 23:00 [place] # (Auto) 0.8 10^3/uL (0.2-0.9) 08/25/24 23:00 Eos # (Auto) 0.0 10^3/uL (0.0-0.8) 08/25/24 23:00 Baso # (Auto) 0.1 10^3/uL (0.0-0.1) 08/25/24 23:00 Nucleated RBC % (auto) 0 % 08/25/24 23:00 Nucleated RBCs # 0.0 /100WBC 08/25/24 23:00 Sodium 138 mmol/L (136-145) 08/25/24 23:00 Potassium 4.0 mmol/L (3.5-5.1) 08/25/24 23:00 Chloride 96 mmol/L (98-107) L 08/25/24 23:00 Carbon Dioxide 25 mmol/L (22-29) 08/25/24 23:00 Anion Gap 21.0 (5-19) H 08/25/24 23:00 BUN 25 mg/dL (6-20) H 08/25/24 23:00 Creatinine 1.3 mg/dL (0.5-0.9) H 08/25/24 23:00 GFR Calculation 44.1 mL/min (90-130) L 08/25/24 23:00 Glucose 197 mg/dL (65-115) H 08/25/24 23:00 Calculated Osmolality 296 mOsm/kg (285-295) H 08/25/24 23:00 Calcium 9.7 mg/dL (8.5-10.5) 08/25/24 23:00 Total Bilirubin 0.4 mg/dL (0.15-1.2) 08/25/24 23:00 AST 14 U/L (0-32) 08/25/24 23:00 ALT 39 U/L (0-33) H 08/25/24 23:00 Alkaline Phosphatase 65 U/L (35-105) 08/25/24 23:00 Troponin T Baseline < 6 ng/L (0-10) 08/25/24 23:00 Troponin T 120 Minute 6.00 ng/L (0-10) 08/26/24 00:50 Delta Troponin T 0.98184 ABS# (0-10) 08/26/24 00:50 Total Protein 8.3 g/dL (6.6-8.7) 08/25/24 23:00 Albumin 4.9 g/dL (3.5-5.2) 08/25/24 23:00 Globulin 3.4 g/dL (1.3-4.6) 08/25/24 23:00 All radiology interpretation(s) finalized by discharge Discharge Plan Discharge Patient Disposition: Home Clinical Impression: Gastroenteritis Hypertension Qualifiers: Hypertension type: unspecified Qualified Code(s): I10 - Essential (primary) hypertension Condition: Stable Prescriptions: No Action zolpidem 10 mg tablet 10 mg PO BEDTIME PRN (Reason: Insomnia) Qty: 30 5RF tizanidine 4 mg tablet 8 mg PO QID spironolacton-hydrochlorothiaz 25-25 mg tablet 1 tab PO DAILY hydromorphone [Dilaudid] 4 mg tablet 4 mg PO Q4H telmisartan 80 mg tablet 40 mg PO DAILY prazosin 2 mg capsule 4 mg PO .qhs Qty: 60 11RF (DME) pen needle, diabetic [1st Tier Unifine Pentips] 32 gauge x 5/32 needle See Rx Instructions .Route Qty: 50 0RF Rx Instructions: As directed allopurinol 300 mg tablet 300 mg PO QAM lamotrigine 200 mg tablet 200 mg PO QAM Qty: 30 11RF fludrocortisone 0.1 mg tablet 0.1 mg PO BEDTIME Qty: 90 3RF lithium carbonate 450 mg tablet extended release 450 mg PO .qhs Qty: 30 11RF lorazepam 2 mg tablet See Rx Instructions PO .COMPLEX Qty: 60 5RF Rx Instructions: Take one half tab (1mg) by mouth in AM and at noon, then take one tab (2mg) at bedtime lurasidone 120 mg tablet 120 mg PO DAILY Qty: 30 11RF Rx Instructions: must administer with food (at least 350 calories) Ozempic 2 mg/dose (8 mg/3 mL) pen injector See Rx Instructions .ROUTE .COMPLEX Qty: 3 1RF Dose Instruction: INJECT 2MG (0.75ML) SUB-Q ONCE WEEKLY(ON SATURDAYS) Rx Instructions: INJECT 2MG (0.75ML) SUB-Q ONCE WEEKLY(ON SATURDAYS) ondansetron 8 mg tablet,disintegrating 8 mg PO Q8H PRN (Reason: Nausea And Vomiting) promethazine 25 mg suppository 25 mg ND Q6H PRN (Reason: nausea and vomiting) Qty: 12 0RF prednisone 10 mg tablet 10 mg PO DIRECTED Qty: 42 2RF Rx Instructions: orally; 10 mg twice daily for next 2 weeks followed by 10 mg daily levothyroxine 112 mcg capsule 112 mcg PO DAILY Qty: 30 0RF Discharge Orders: Discharge ED (Routine); Ordered 08/26/24 Ordered By: Franki Stiles Referrals: Michelle Rico FNP [Primary Care Provider] - 1 week Patient Instructions: Gastroenteritis (ED), Hypertension (ED) Activity Restrictions/Additional Instructions: Thank you for choosing [facility] for your healthcare needs today. Please realize that you were seen in the emergency department and that we are providing you with an emergency medical screening exam and this may not be a complete and all exclusive of all testing and/or medical workup we may need to determine your element or severity of your illness. It is very important that you follow-up as instructed with your primary care provider or specialist for the additional evaluation and to discuss your medical treatment plan. You may return to the emergency department should you have concerns or if your condition changes or worsens in any way. Coding Level of Care Code ED House Piping Inspector for Ingrid Lindsay
[2024-08-25 23:11] LABS: Basophils # 0.1 10^3/uL (0.0-0.1); Basophils % 0.3 %; Hematocrit 45.7 % (36-47); Lymphocytes # 1.5 10^3/uL (0.8-4.8); Lymphocytes % 7.4 %; Mean Corpuscular HGB Conc 31.7 g/dL (30-55); Mean Corpuscular Hemoglobin 29.9 pg (27-33); Mean Corpuscular Volume 94.2 fl (85-98); Mean Platelet Volume 10.8 fL (7.4-10.4); Monocytes # 0.8 10^3/uL (0.2-0.9); Neutrophils # 16.91 10^3/uL (1.8-7.7); Neutrophils % 85.6 %; Nucleated Red Blood Cells % 0 %; Platelet Count 330 10^3/cmm (157-399); Red Blood Count 4.85 10^6/uL (3.85-5.65); Red Cell Distribution Width 14.8 % (12.1-15.1); White Blood Count 19.76 10^3/uL (3.29-11.43)
[2024-08-25] MEDS: diphenhydrAMINE 50 mg/mL SDV 1mL IVP (23:15)
[2024-08-25 23:16] VITALS: BP 134/87; PULSE 103; RESP 19; O2SAT 95
[2024-08-25] MEDS: metoprolol tartrate 1 mg/1 mL SDV 5 mL 5 MG IVP (23:16)
[2024-08-25] MEDS: prochlorperazine 10 mg/2 mL Inj IVP (23:16)
[2024-08-25 23:19] LABS: Troponin(5th) Baseline < 6 ng/L (0-10)
[2024-08-25 23:21] LABS: Alanine Aminotransferase 39 U/L (0-33); Albumin Level 4.9 g/dL (3.5-5.2); Alkaline Phosphatase 65 U/L (35-105); Aspartate Amino Transferase 14 U/L (0-32); Blood Urea Nitrogen 25 mg/dL (6-20); Calcium 9.7 mg/dL (8.5-10.5); Carbon Dioxide 25 mmol/L (22-29); Chloride 96 mmol/L (98-107); Creatinine Clr Calc Pharmacy 57.5372; Globulin 3.4 g/dL (1.3-4.6); Glomerular Filtration Rate 44.1 mL/min (90-130); Glucose 197 mg/dL (65-115); Osmolality Calculated 296 mOsm/kg (285-295); Sodium 138 mmol/L (136-145); Total Bilirubin 0.4 mg/dL (0.15-1.2); Total Protein 8.3 g/dL (6.6-8.7)
[2024-08-25 23:40] VITALS: BP 133/98; PULSE 97; RESP 22; O2SAT 95
[2024-08-26 01:15] LABS: Troponin 5 2HR Delta 0.00001 ABS# (0-10)
[2024-08-26 02:41] VITALS: BP 137/104; PULSE 99; RESP 20; O2SAT 95
[2024-08-26] MEDS: morphine 4 mg/mL SDV 1 mL IVP (02:41)
[2024-08-26 02:58] VITALS: BP 154/112; PULSE 98; RESP 18; O2SAT 98
== END 2024-08-26 02:59 | disposition home or self-care (01) ==
PROVIDERS: Emergency Provider Emergency Medicine; PCP Nurse Practitioner Family
DX: K52.9 Noninfective gastroenteritis and colitis, unspecified (principal); E11.22 Type 2 diabetes mellitus with diabetic chronic kidney disease; I12.9 Hypertensive chronic kidney disease with stage 1 through stage 4 chronic kidney disease, or unspecified chronic kidney disease; N18.9 Chronic kidney disease, unspecified; E78.5 Hyperlipidemia, unspecified
CPT/HCPCS: 71045; 80053; 84484; 85025; 93005; 96374; 96375; 99285; J0780; J1200; J2270; J3490

== ENCOUNTER 2024-09-04 13:07 | Outpatient (CLI) | payer OTHER, SELFPAY ==
[2024-09-04 13:54] LABS: Free T4 Free Thyroxine 0.37 ng/dL (0.82-1.77)
[2024-09-04 13:56] LABS: Lithium 0.5 mmol/L (0.6-1.2)
[2024-09-04 14:09] LABS: Calcium 10.5 mg/dL (8.5-10.5)
[2024-09-04 14:17] LABS: Parathyroid Hormone 61.4 pg/mL (15-65)
== END 2024-09-04 13:08 | disposition home or self-care (01) ==
LOC: LAB 13:11
PROVIDERS: Psychiatry & Neurology Psychiatry; Absent Provider Nurse Practitioner Women's Health; PCP Nurse Practitioner Family; Visit Provider Internal Medicine
DX: E03.9 Hypothyroidism, unspecified (principal); Z79.899 Other long term (current) drug therapy; R79.89 Other specified abnormal findings of blood chemistry
CPT/HCPCS: 36415; 80178; 82310; 83970; 84439; 84443

== ENCOUNTER 2024-09-04 16:46 | Emergency (ER) | payer OTHER, SELFPAY ==
[2024-09-04] VITALS (12 sets, daily range): BP systolic 61–129; BP diastolic 45–95; PULSE 69–84; RESP 12–27; TEMP 36.5; O2SAT 95–100
--- NOTE | 2024-09-04 17:07 | ECG_ITS ---
[facility] Date: 2024-09-04 Pat Name: Nina Garcia Department: Room: Gender: Female Insurance Claim Auditor: : 1980 Requested By: Giorgio Jackman Order Number: [id number] Dustin MD: Rodolfo Chen M.D. Measurements Intervals [place] Rate: 83 P: 34 AL: 138 QRS: 106 QRSD: 89 T: 54 QT: 381 QTc: 449 Interpretive Statements SINUS RHYTHM RIGHT AXIS DEVIATION [QRS AXIS > 100] Compared to ECG 08/25/2024 22:40:52 Sinus tachycardia no longer present ST (T wave) deviation no longer present Electronically Signed On 09-04-2024 21:12:18 FIELD INTERVIEWER by Rodolfo Chen M.D. [email or web address]
--- NOTE | 2024-09-04 17:07 | XRR_ITS ---
PROCEDURE INFORMATION: Exam: XR Chest Exam date and time: 09/04/2024 5:09 PM Age: 44 years old Clinical indication: Pain; Chest pressure; Additional info: Dyspnea/cough TECHNIQUE: Imaging protocol: Radiologic exam of the chest. Views: 1 view. COMPARISON: CR (CHEST, ) 08/25/2024 10:59 PM FINDINGS: Lungs: Unremarkable. No consolidation. Pleural spaces: Unremarkable. No pleural effusion. No pneumothorax. Heart/Mediastinum: Unremarkable. No cardiomegaly. Bones/joints: No acute findings. XR/XR chest 1V portable [id number] IMPRESSION: No acute findings.
[2024-09-04 17:22] LABS: Basophils # 0.1 10^3/uL (0.0-0.1); Basophils % 0.8 %; Eosinophils # 0.1 10^3/uL (0.0-0.8); Hematocrit 44.5 % (36-47); Lymphocytes # 2.5 10^3/uL (0.8-4.8); Mean Corpuscular HGB Conc 31.2 g/dL (30-55); Mean Corpuscular Hemoglobin 29.3 pg (27-33); Mean Corpuscular Volume 93.9 fl (85-98); Mean Platelet Volume 11.3 fL (7.4-10.4); Monocytes # 0.6 10^3/uL (0.2-0.9); Monocytes % 4.9 %; Neutrophils # 9.72 10^3/uL (1.8-7.7); Neutrophils % 73.7 %; Nucleated Red Blood Cells % 0 %; Platelet Count 289 10^3/cmm (157-399); Red Blood Count 4.74 10^6/uL (3.85-5.65); Red Cell Distribution Width 14.6 % (12.1-15.1); White Blood Count 13.18 10^3/uL (3.29-11.43)
--- NOTE | 2024-09-04 17:26 | W.ED.WEAKNES ---
Documented by User: Giorgio Newman DO 09/05/24 09:36 HPI - Weakness General: Chief complaint: Weakness Stated complaint: Low BP Chest Pain Time Seen by Provider: 09/04/24 17:07 History of Present Illness: 44-year-old female who presents emergency room with increased weakness low blood pressure. She has increasing abdominal pain with abdominal distention. She also noticed a headache. She denies fever sweats or chills she has had bloody stools are in the process of getting worked up. No hematemesis. She did have a bowel movement earlier today. Associated symptoms: Reports nausea and vomiting; Denies chest pain, chills, dysuria or fever(s) Review of Systems Const: Denies: fever(s) or chills Card: Denies: chest pain Resp: Denies: dyspnea GI: Reports: abdominal pain, nausea, vomiting and hematochezia; Denies: hematemesis : Denies: dysuria, urinary frequency or urinary urgency Musc: Denies: neck pain or back pain Skin/Breast: Denies: rash PFSH ED PFSH: Medical History Resistant hypertension GERD (gastroesophageal reflux disease) Nausea & vomiting CKD (chronic kidney disease) Hypothyroid Hypertensive urgency, malignant Pulmonary embolism Chest pain at rest Psychiatric care HLD (hyperlipidemia) DM2 (diabetes mellitus, type 2) Chronic back pain Chronic neck and back pain Post traumatic stress disorder (PTSD) Bipolar 1 disorder, depressed, full remission Hypertensive emergency Palpitation Malignant hypertension Chronic renal disease Generalized anxiety disorder Surgical History History of back surgery H/O esophagogastroduodenoscopy (08/12/20) H/O angioplasty History of colonoscopy with polypectomy (08/12/20) History of spinal fusion 10/01/2013- C5-6, ACDFF Dr. Villanueva H/O rectal polypectomy Status post hemilaminotomy 01/06/2012, right L5-S1, disectomy and foraminotomy per Dr. Villanueva History of suburethral sling procedure anterior colporrhapy augmentd with porcine graft, cystoscopy performed on 03/08/[address] Haley History of total hysterectomy 2000 Hx of cholecystectomy History of appendectomy History of bilateral oophorectomy 2011 H/O total thyroidectomy Family History Mother Diabetes Pancreatic cancer Ovarian cancer Father Diabetes Hypertension Stroke COPD (chronic obstructive pulmonary disease) Grandfather Hypertension maternal Heart disease maternal Grandmother Colon cancer maternal Social History Smoking and tobacco/nicotine status: never used tobacco/nicotine Second hand smoke exposure: Yes Alcohol intake: never Substance/Drug Use: never Additional social history: well balanced diet Caregiver/support person: No Lives independently: Yes Household members: spouse Housing: House Marital status: Number of children: 8 Highest education level completed: GED or Equivalent service: No Current occupational status: unemployed Physical Exam Const: GENERAL APPEARANCE: cooperative ORIENTATION/CONSCIOUSNESS: Yes awake, Yes oriented to person, Yes oriented to place and Yes oriented to time HENMT: COMMON NORMALS: normocephalic, atraumatic and hearing grossly normal bilaterally HEAD & SCALP: normocephalic and atraumatic Resp: COMMON NORMALS: normal respiratory effort, No retractions, No use of accessory muscles and clear to auscultation bilaterally AUSCULTATION: clear to auscultation bilaterally Cardio: COMMON NORMALS: regular rate, regular rhythm and No murmurs present (Cardio) RATE: regular rate RHYTHM: regular rhythm GI: INSPECTION: Yes abdominal distension AUSCULTATION: Yes Absent bowel sounds PALPATION: Yes Tenderness to palpation present (GI) PERCUSSION: tympanic to percussion Extremity: COMMON NORMALS: normal to inspection, capillary refill normal, no clubbing, cyanosis or edema, no calf tenderness and no pedal edema Neuro: SENSORIUM/ORIENTATION: Yes oriented to person, Yes oriented to place and Yes oriented to time Skin: COMMON NORMALS: no rashes or lesions noted GENERAL SKIN EXAM: no rashes or lesions noted Course Vital Signs: Vital signs: Vital Signs Temperature 97.7 F 09/04/24 16:48 Pulse Rate 74 09/05/24 02:35 Respiratory Rate 18 09/05/24 00:53 Blood Pressure 138/92 09/05/24 02:35 Pulse Oximetry 97 09/05/24 02:35 Oxygen Delivery Me thod Room Air 09/04/24 20:31 MDM - Weakness Medical Decision Making Patient appears septic with elevated white count distended abdomen extremely tender. Has been given IV sepsis fluid bolus started on Zosyn. Levophed has been ordered because of her persistent low pressures. CT pending at the time of change of shift. Care signed out to Dr. Johnson at change of shift. See final notes for diagnosis and disposition. 44-year-old female with a history of chronic pain syndrome on 4 mg of Dilaudid every 4 hours, hypothyroidism, bipolar disorder on lithium, Adrenal insufficiency on fludrocortisone 10 mg daily who was transferred to my care at shift change. She has had recurrent issues with abdominal pain, renal failure and hypotension. Recently admitted for this. Today she was pending a CT scan. She has some acute renal insufficiency and some mild leukocytosis. Blood pressure has been as low as 61/45. She is received septic dose fluids and Levophed was ordered. CT of the abdomen pelvis with contrast: Suspected primary colonic malignancy at the hepatic flexure. Colonoscopy recommended. Consultation: I spoke with Dr. Bullard with general surgery. He reviewed the films. He feels that there is a partial obstruction secondary to this mass. That colon distal to this is collapsed and proximal to this is full of stool and he feels that this needs a more urgent evaluation by a colorectal surgeon. Patient initially did not need Levophed. However her pressure has dropped. I also took some further history and she had adrenal insufficiency previously. Have given stress dose hydrocortisone here. Consultation: I spoke with Dr. Cai who is the tack cutter at [facility] in [place]. He recommends transfer ER to ER. Hopefully the hydrocortisone will help with her pressure and she will not need pressors or ICU by the time she gets there. Consultation: I spoke with Dr. Cha who is an ER doctor at [facility] in [place] and she accepts the patient to the emergency room. Assessment and plan: Acute on chronic renal insufficiency Hypotension Possible sepsis Mass of the splenic flexure Partial small bowel obstruction Adrenal insufficiency - weightbase septic bolus given. ?Initiating Levophed ?Stress dose hydrocortisone. 100 mg. -Broad-spectrum antibiotics were administered. Zosyn was given -Sepsis quality measures. -Lactic acid with a reflex was ordered. -Blood cultures were ordered. - Discussed findings and plan with patient. Answered any questions. - All laboratory values were reviewed and interpreted personally by myself, the ER physician - All imaging was reviewed and interpreted personally by myself, the ER physician. - Evaluation and treatment of this problem were appropriate in the emergency setting Critical care -I spent a total of >35 minutes of critical care time managing the patient, independent of any other practitioner. -The time involved in the performance of separately reportable procedures was not counted towards critical care time. Lab Data 09/04/24 17:03 09/04/24 17:03 Radiology Impressions Chest X-Ray 09/04/24 17:07 IMPRESSION: No acute findings. Abdomen/Pelvis CT 09/04/24 18:07 IMPRESSION: 1. Suspected primary colonic malignancy at the hepatic flexure. Further evaluation with colonoscopy recommended. 2. Findings suggestive of a mild enterocolitis. 3. Hepatic steatosis. 4. Mild splenomegaly. 5. Small right ovarian cyst. Laboratory Results WBC 13.18 10^3/uL (3.29-11.43) H 09/04/24 17:03 RBC 4.74 10^6/uL (3.85-5.65) 09/04/24 17:03 Hgb 13.90 g/dL (11.27-16.99) 09/04/24 17:03 Hct 44.5 % (36-47) 09/04/24 17:03 MCV 93.9 fl (85-98) 09/04/24 17:03 MCH 29.3 pg (27-33) 09/04/24 17:03 MCHC 31.2 g/dL (30-55) 09/04/24 17:03 RDW 14.6 % (12.1-15.1) 09/04/24 17:03 Plt Count 289 10^3/cmm (157-399) 09/04/24 17:03 MPV 11.3 fL (7.4-10.4) H 09/04/24 17:03 Neut % (Auto) 73.7 % 09/04/24 17:03 Lymph % (Auto) 19.0 % 09/04/24 17:03 [place] % (Auto) 4.9 % 09/04/24 17:03 Eos % (Auto) 1.0 % 09/04/24 17:03 Baso % (Auto) 0.8 % 09/04/24 17:03 Neut # (Auto) 9.72 10^3/uL (1.8-7.7) H 09/04/24 17:03 Lymph # (Auto) 2.5 10^3/uL (0.8-4.8) 09/04/24 17:03 [place] # (Auto) 0.6 10^3/uL (0.2-0.9) 09/04/24 17:03 Eos # (Auto) 0.1 10^3/uL (0.0-0.8) 09/04/24 17:03 Baso # (Auto) 0.1 10^3/uL (0.0-0.1) 09/04/24 17:03 Nucleated RBC % (auto) 0 % 09/04/24 17:03 Nucleated RBCs # 0.0 /100WBC 09/04/24 17:03 Sodium 137 mmol/L (136-145) 09/04/24 17:03 Potassium 5.0 mmol/L (3.5-5.1) 09/04/24 17:03 Chloride 98 mmol/L (98-107) 09/04/24 17:03 Carbon Dioxide 26 mmol/L (22-29) 09/04/24 17:03 Anion Gap 18.0 (5-19) 09/04/24 17:03 BUN 17 mg/dL (6-20) 09/04/24 17:03 Creatinine 1.9 mg/dL (0.5-0.9) H 09/04/24 17:03 GFR Calculation 28.5 mL/min (90-130) L 09/04/24 17:03 Glucose 142 mg/dL (65-115) H 09/04/24 17:03 Calculated Osmolality 288 mOsm/kg (285-295) 09/04/24 17:03 Lactic Acid 1.8 mmol/L (0.5-2.2) 09/04/24 17:03 Calcium 9.8 mg/dL (8.5-10.5) 09/04/24 17:03 Magnesium 2.3 mg/dL (1.7-2.3) 09/04/24 17:03 Total Bilirubin 0.5 mg/dL (0.15-1.2) 09/04/24 17:03 AST 35 U/L (0-32) H 09/04/24 17:03 ALT 50 U/L (0-33) H 09/04/24 17:03 Alkaline Phosphatase 79 U/L (35-105) 09/04/24 17:03 Troponin T Baseline 9 ng/L (0-10) 09/04/24 17:03 Troponin T 120 Minute 6.27 ng/L (0-10) 09/04/24 20:11 Delta Troponin T -2.73 ABS# (0-10) L 09/04/24 20:11 Troponin T Hi Sens 6Hr 6.59 ng/L (0-10) 09/05/24 00:20 Troponin T Hi Sens 6Hr Delta -2.41 ng/L (0-12) L 09/05/24 00:20 Total Protein 8.0 g/dL (6.6-8.7) 09/04/24 17:03 Albumin 5.0 g/dL (3.5-5.2) 09/04/24 17:03 Globulin 3.0 g/dL (1.3-4.6) 09/04/24 17:03 Lipase 72 U/L (13-60) H 09/04/24 17:03 Urine Color Yellow (Yellow) 09/04/24 18:45 Urine Appearance Clear (CLEAR) 09/04/24 18:45 Urine pH 6.5 (5-7) 09/04/24 18:45 Ur Specific [place] 1.022 (1.005-1.030) 09/04/24 18:45 Urine Protein Negative (Negative) 09/04/24 18:45 Urine Glucose (UA) Negative (Normal) 09/04/24 18:45 Urine Ketones Negative (Negative) 09/04/24 18:45 Urine Blood Negative (Negative) 09/04/24 18:45 Urine Nitrate Negative (Negative) 09/04/24 18:45 Urine Bilirubin Negative (Negative) 09/04/24 18:45 Urine Urobilinogen 0.2 mg/dL (Negative) 09/04/24 18:45 Ur Leukocyte Esterase Negative (Negative) 09/04/24 18:45 Urine RBC 0-2 /hpf (0-2) 09/04/24 18:45 Urine WBC 0-5 /hpf (0-5) 09/04/24 18:45 Ur Squamous Epith Cells 0-5 /hpf (0-5) 09/04/24 18:45 Amorphous Sediment Not Reportable 09/04/24 18:45 Urine Bacteria None seen /hpf (NONE) 09/04/24 18:45 Hyaline Casts 3.30 /lpf 09/04/24 18:45 [place]lys[place] 0.6 mmol/L (0.6-1.2) 09/04/24 17:03 Adenovirus (PCR) Not detected (NOT DETECT) 09/04/24 17:45 C. pneumoniae DNA (PCR) Not detected (NOT DETECT) 09/04/24 17:45 Coronavirus 229E (PCR) Not detected (NOT DETECT) 09/04/24 17:45 Human Metapneumovir PCR Not detected (NOT DETECT) 09/04/24 17:45 Influenza A (H1) PCR Not detected (NOT DETECT) 09/04/24 17:45 Influ A (H1/09) PCR Not detected (NOT DETECT) 09/04/24 17:45 Influenza A (H3) PCR Not detected (NOT DETECT) 09/04/24 17:45 Influenza Type A (PCR) Not detected (NOT DETECT) 09/04/24 17:45 Influenza Type B (PCR) Not detected (NOT DETECT) 09/04/24 17:45 M. pneumoniae (PCR) Not detected (NOT DETECT) 09/04/24 17:45 Parainfluenza 1 (PCR) Not detected (NOT DETECT) 09/04/24 17:45 Parainfluenza 2 (PCR) Not detected (NOT DETECT) 09/04/24 17:45 Parainfluenza 3 (PCR) Not detected (NOT DETECT) 09/04/24 17:45 Parainfluenza 4 (PCR) Not detected (NOT DETECT) 09/04/24 17:45 RSV Type A (PCR) Not detected (NOT DETECT) 09/04/24 17:45 RSV Type B (PCR) Not detected (NOT DETECT) 09/04/24 17:45 Entero/Rhino (PCR) Not detected (NOT DETECT) 09/04/24 17:45 SARS-CoV-2 (PCR) Not detected (NOT DETECT) 09/04/24 17:45 Discharge Plan Discharge Patient Disposition: Xfer Short-Term Hosp Clinical Impression: Acute hypotension, Adrenal insufficiency, Abdominal pain, Mass of colon Condition: Stable Referrals: Michelle Rico FNP [Primary Care Provider] - Patient Instructions: Abdominal Pain (ED) Coding Level of Care Code ED Auditing Manager for [facility] Fwd Related Data Home Medications Medication Instructions Recorded Confirmed ondansetron 8 mg disintegrating 8 mg PO Q8H PRN Nausea And Vomiting 12/09/21 09/03/24 tablet allopurinol 300 mg tablet 300 mg PO QAM 11/25/22 09/03/24 hydromorphone 4 mg tablet 4 mg PO Q4H 05/14/24 09/03/24 (Dilaudid) spironolactone 25 1 tab PO DAILY 05/14/24 09/03/24 mg-hydrochlorothiazide 25 mg tablet telmisartan 80 mg tablet 40 mg PO DAILY 05/14/24 09/03/24 tizanidine 4 mg tablet 8 mg PO QID 05/14/24 09/03/24 hydralazine 50 mg tablet 50 mg PO TID PRN 08/30/24 09/03/24 Previous Rx's Medication Instructions Recorded pen needle, diabetic 32 gauge x #50 ea 05/28/2232 (1st Tier Unifine Pentips) promethazine 25 mg rectal 25 mg MI Q6H PRN nausea and 09/30/23 suppository vomiting #12 ea lamotrigine 200 mg tablet 200 mg PO QAM #30 tabs 01/02/24 zolpidem 10 mg tablet 10 mg PO BEDTIME PRN Insomnia #30 05/22/24 tabs prednisone 10 mg tablet 10 mg PO DIRECTED #42 tabs 06/12/24 lorazepam 2 mg tablet See Rx Instructions PO .COMPLEX 07/12/24 #60 tabs prazosin 2 mg capsule 4 mg (2 x 2 mg) PO .qhs #60 caps 08/08/24 lurasidone 120 mg tablet 120 mg PO DAILY #30 tabs 08/16/24 semaglutide 2 mg/dose (8 mg/3 mL) See Rx Instructions .Route 08/20/24 subcutaneous pen injector (Ozempic) .COMPLEX #3 mL lithium carbonate 300 mg capsule 300 mg PO BID #60 caps 08/30/24 levothyroxine 150 mcg capsule 150 mcg PO DAILY #30 caps 09/04/24 Allergies Allergy/AdvReac Type Severity Reaction Status Date / Time midodrine Allergy Intermediate ALGY-Rash Verified 09/04/24 16:58 aspirin Allergy due to BUN Verified 09/04/24 16:58 levels coconut Allergy hives Verified 09/04/24 16:58 ketorolac [From Toradol] Allergy hives Verified 09/04/24 16:58 meloxicam [From Mobic] Allergy hives Verified 09/04/24 16:58 NSAIDS (Non-Steroidal Allergy Unknown Verified 09/04/24 16:58 Anti-Inflamma Documented by User: Sarah Johnson MD 09/04/24 21:48 HPI - Weakness General: Chief complaint: Weakness Stated complaint: Low BP Chest Pain Time Seen by Provider: 09/04/24 17:07 PFSH ED PFSH: Medical History Resistant hypertension GERD (gastroesophageal reflux disease) Nausea & vomiting CKD (chronic kidney disease) Hypothyroid Hypertensive urgency, malignant Pulmonary embolism Chest pain at rest Psychiatric care HLD (hyperlipidemia) DM2 (diabetes mellitus, type 2) Chronic back pain Chronic neck and back pain Post traumatic stress disorder (PTSD) Bipolar 1 disorder, depressed, full remission Hypertensive emergency Palpitation Malignant hypertension Chronic renal disease Generalized anxiety disorder Surgical History History of back surgery H/O esophagogastroduodenoscopy (08/12/20) H/O angioplasty History of colonoscopy with polypectomy (08/12/20) History of spinal fusion 10/01/2013- C5-6, ACDFF Dr. Villanueva H/O rectal polypectomy Status post hemilaminotomy 01/06/2012, right L5-S1, disectomy and foraminotomy per Dr. Villanueva History of suburethral sling procedure anterior colporrhapy augmentd with porcine graft, cystoscopy performed on 03/08/[address] Haley History of total hysterectomy 2000 Hx of cholecystectomy History of appendectomy History of bilateral oophorectomy 2011 H/O total thyroidectomy Family History Mother Diabetes Pancreatic cancer Ovarian cancer Father Diabetes Hypertension Stroke COPD (chronic obstructive pulmonary disease) Grandfather Hypertension maternal Heart disease maternal Grandmother Colon cancer maternal Social History Smoking and tobacco/nicotine status: never used tobacco/nicotine Second hand smoke exposure: Yes Alcohol intake: never Substance/Drug Use: never Additional social history: well balanced diet Caregiver/support person: No Lives independently: Yes Household members: spouse Housing: House Marital status: Number of children: 8 Highest education level completed: GED or Equivalent service: No Current occupational status: unemployed Course Vital Signs: Vital signs: Vital Signs Temperature 97.7 F 09/04/24 16:48 Pulse Rate 74 09/05/24 02:35 Respiratory Rate 18 09/05/24 00:53 Blood Pressure 138/92 09/05/24 02:35 Pulse Oximetry 97 09/05/24 02:35 Oxygen Delivery Me thod Room Air 09/04/24 20:31 MDM - Weakness Medical Decision Making 44-year-old female with a history of chronic pain syndrome on 4 mg of Dilaudid every 4 hours, hypothyroidism, bipolar disorder on lithium, Adrenal insufficiency on fludrocortisone 10 mg daily who was transferred to my care at shift change. She has had recurrent issues with abdominal pain, renal failure and hypotension. Recently admitted for this. Today she was pending a CT scan. She has some acute renal insufficiency and some mild leukocytosis. Blood pressure has been as low as 61/45. She is received septic dose fluids and Levophed was ordered. CT of the abdomen pelvis with contrast: Suspected primary colonic malignancy at the hepatic flexure. Colonoscopy recommended. Consultation: I spoke with Dr. Bullard with general surgery. He reviewed the films. He feels that there is a partial obstruction secondary to this mass. That colon distal to this is collapsed and proximal to this is full of stool and he feels that this needs a more urgent evaluation by a colorectal surgeon. Patient initially did not need Levophed. However her pressure has dropped. I also took some further history and she had adrenal insufficiency previously. Have given stress dose hydrocortisone here. Consultation: I spoke with Dr. Cai who is the tack cutter at [facility] in [place]. He recommends transfer ER to ER. Hopefully the hydrocortisone will help with her pressure and she will not need pressors or ICU by the time she gets there. Consultation: I spoke with Dr. Cha who is an ER doctor at [facility] in [place] and she accepts the patient to the emergency room. Assessment and plan: Acute on chronic renal insufficiency Hypotension Possible sepsis Mass of the splenic flexure Partial small bowel obstruction Adrenal insufficiency - weightbase septic bolus given. ?Initiating Levophed ?Stress dose hydrocortisone. 100 mg. -Broad-spectrum antibiotics were administered. Zosyn was given -Sepsis quality measures. -Lactic acid with a reflex was ordered. -Blood cultures were ordered. - Discussed findings and plan with patient. Answered any questions. - All laboratory values were reviewed and interpreted personally by myself, the ER physician - All imaging was reviewed and interpreted personally by myself, the ER physician. - Evaluation and treatment of this problem were appropriate in the emergency setting Critical care -I spent a total of >35 minutes of critical care time managing the patient, independent of any other practitioner. -The time involved in the performance of separately reportable procedures was not counted towards critical care time. Lab Data 09/04/24 17:03 09/04/24 17:03 Radiology Impressions Chest X-Ray 09/04/24 17:07 IMPRESSION: No acute findings. Abdomen/Pelvis CT 09/04/24 18:07 IMPRESSION: 1. Suspected primary colonic malignancy at the hepatic flexure. Further evaluation with colonoscopy recommended. 2. Findings suggestive of a mild enterocolitis. 3. Hepatic steatosis. 4. Mild splenomegaly. 5. Small right ovarian cyst. Laboratory Results WBC 13.18 10^3/uL (3.29-11.43) H 09/04/24 17:03 RBC 4.74 10^6/uL (3.85-5.65) 09/04/24 17:03 Hgb 13.90 g/dL (11.27-16.99) 09/04/24 17:03 Hct 44.5 % (36-47) 09/04/24 17:03 MCV 93.9 fl (85-98) 09/04/24 17:03 MCH 29.3 pg (27-33) 09/04/24 17:03 MCHC 31.2 g/dL (30-55) 09/04/24 17:03 RDW 14.6 % (12.1-15.1) 09/04/24 17:03 Plt Count 289 10^3/cmm (157-399) 09/04/24 17:03 MPV 11.3 fL (7.4-10.4) H 09/04/24 17:03 Neut % (Auto) 73.7 % 09/04/24 17:03 Lymph % (Auto) 19.0 % 09/04/24 17:03 [place] % (Auto) 4.9 % 09/04/24 17:03 Eos % (Auto) 1.0 % 09/04/24 17:03 Baso % (Auto) 0.8 % 09/04/24 17:03 Neut # (Auto) 9.72 10^3/uL (1.8-7.7) H 09/04/24 17:03 Lymph # (Auto) 2.5 10^3/uL (0.8-4.8) 09/04/24 17:03 [place] # (Auto) 0.6 10^3/uL (0.2-0.9) 09/04/24 17:03 Eos # (Auto) 0.1 10^3/uL (0.0-0.8) 09/04/24 17:03 Baso # (Auto) 0.1 10^3/uL (0.0-0.1) 09/04/24 17:03 Nucleated RBC % (auto) 0 % 09/04/24 17:03 Nucleated RBCs # 0.0 /100WBC 09/04/24 17:03 Sodium 137 mmol/L (136-145) 09/04/24 17:03 Potassium 5.0 mmol/L (3.5-5.1) 09/04/24 17:03 Chloride 98 mmol/L (98-107) 09/04/24 17:03 Carbon Dioxide 26 mmol/L (22-29) 09/04/24 17:03 Anion Gap 18.0 (5-19) 09/04/24 17:03 BUN 17 mg/dL (6-20) 09/04/24 17:03 Creatinine 1.9 mg/dL (0.5-0.9) H 09/04/24 17:03 GFR Calculation 28.5 mL/min (90-130) L 09/04/24 17:03 Glucose 142 mg/dL (65-115) H 09/04/24 17:03 Calculated Osmolality 288 mOsm/kg (285-295) 09/04/24 17:03 Lactic Acid 1.8 mmol/L (0.5-2.2) 09/04/24 17:03 Calcium 9.8 mg/dL (8.5-10.5) 09/04/24 17:03 Magnesium 2.3 mg/dL (1.7-2.3) 09/04/24 17:03 Total Bilirubin 0.5 mg/dL (0.15-1.2) 09/04/24 17:03 AST 35 U/L (0-32) H 09/04/24 17:03 ALT 50 U/L (0-33) H 09/04/24 17:03 Alkaline Phosphatase 79 U/L (35-105) 09/04/24 17:03 Troponin T Baseline 9 ng/L (0-10) 09/04/24 17:03 Troponin T 120 Minute 6.27 ng/L (0-10) 09/04/24 20:11 Delta Troponin T -2.73 ABS# (0-10) L 09/04/24 20:11 Troponin T Hi Sens 6Hr 6.59 ng/L (0-10) 09/05/24 00:20 Troponin T Hi Sens 6Hr Delta -2.41 ng/L (0-12) L 09/05/24 00:20 Total Protein 8.0 g/dL (6.6-8.7) 09/04/24 17:03 Albumin 5.0 g/dL (3.5-5.2) 09/04/24 17:03 Globulin 3.0 g/dL (1.3-4.6) 09/04/24 17:03 Lipase 72 U/L (13-60) H 09/04/24 17:03 Urine Color Yellow (Yellow) 09/04/24 18:45 Urine Appearance Clear (CLEAR) 09/04/24 18:45 Urine pH 6.5 (5-7) 09/04/24 18:45 Ur Specific [place] 1.022 (1.005-1.030) 09/04/24 18:45 Urine Protein Negative (Negative) 09/04/24 18:45 Urine Glucose (UA) Negative (Normal) 09/04/24 18:45 Urine Ketones Negative (Negative) 09/04/24 18:45 Urine Blood Negative (Negative) 09/04/24 18:45 Urine Nitrate Negative (Negative) 09/04/24 18:45 Urine Bilirubin Negative (Negative) 09/04/24 18:45 Urine Urobilinogen 0.2 mg/dL (Negative) 09/04/24 18:45 Ur Leukocyte Esterase Negative (Negative) 09/04/24 18:45 Urine RBC 0-2 /hpf (0-2) 09/04/24 18:45 Urine WBC 0-5 /hpf (0-5) 09/04/24 18:45 Ur Squamous Epith Cells 0-5 /hpf (0-5) 09/04/24 18:45 Amorphous Sediment Not Reportable 09/04/24 18:45 Urine Bacteria None seen /hpf (NONE) 09/04/24 18:45 Hyaline Casts 3.30 /lpf 09/04/24 18:45 [place] 0.6 mmol/L (0.6-1.2) 09/04/24 17:03 Adenovirus (PCR) Not detected (NOT DETECT) 09/04/24 17:45 C. pneumoniae DNA (PCR) Not detected (NOT DETECT) 09/04/24 17:45 Coronavirus 229E (PCR) Not detected (NOT DETECT) 09/04/24 17:45 Human Metapneumovir PCR Not detected (NOT DETECT) 09/04/24 17:45 Influenza A (H1) PCR Not detected (NOT DETECT) 09/04/24 17:45 Influ A (H1/09) PCR Not detected (NOT DETECT) 09/04/24 17:45 Influenza A (H3) PCR Not detected (NOT DETECT) 09/04/24 17:45 Influenza Type A (PCR) Not detected (NOT DETECT) 09/04/24 17:45 Influenza Type B (PCR) Not detected (NOT DETECT) 09/04/24 17:45 M. pneumoniae (PCR) Not detected (NOT DETECT) 09/04/24 17:45 Parainfluenza 1 (PCR) Not detected (NOT DETECT) 09/04/24 17:45 Parainfluenza 2 (PCR) Not detected (NOT DETECT) 09/04/24 17:45 Parainfluenza 3 (PCR) Not detected (NOT DETECT) 09/04/24 17:45 Parainfluenza 4 (PCR) Not detected (NOT DETECT) 09/04/24 17:45 RSV Type A (PCR) Not detected (NOT DETECT) 09/04/24 17:45 RSV Type B (PCR) Not detected (NOT DETECT) 09/04/24 17:45 Entero/Rhino (PCR) Not detected (NOT DETECT) 09/04/24 17:45 SARS-CoV-2 (PCR) Not detected (NOT DETECT) 09/04/24 17:45 All radiology interpretation(s) finalized by discharge Discharge Plan Discharge Patient Disposition: Xfer Short-Term Hosp Clinical Impression: Acute hypotension, Adrenal insufficiency, Abdominal pain, Mass of colon Condition: Stable Referrals: Michelle Rico FNP [Primary Care Provider] - Patient Instructions: Abdominal Pain (ED) Coding Level of Care Code ED Auditing Manager for g Fwd Related Data Home Medications Medication Instructions Recorded Confirmed ondansetron 8 mg disintegrating 8 mg PO Q8H PRN Nausea And Vomiting 12/09/21 09/03/24 tablet allopurinol 300 mg tablet 300 mg PO QAM 11/25/22 09/03/24 hydromorphone 4 mg tablet 4 mg PO Q4H 05/14/24 09/03/24 (Dilaudid) spironolactone 25 1 tab PO DAILY 05/14/24 09/03/24 mg-hydrochlorothiazide 25 mg tablet telmisartan 80 mg tablet 40 mg PO DAILY 05/14/24 09/03/24 tizanidine 4 mg tablet 8 mg PO QID 05/14/24 09/03/24 hydralazine 50 mg tablet 50 mg PO TID PRN 08/30/24 09/03/24 Previous Rx's Medication Instructions Recorded pen needle, diabetic 32 gauge x #50 ea 05/28/22 (1st Tier Unifine Pentips) promethazine 25 mg rectal 25 mg MI Q6H PRN nausea and 09/30/23 suppository vomiting #12 ea lamotrigine 200 mg tablet 200 mg PO QAM #30 tabs 01/02/24 zolpidem 10 mg tablet 10 mg PO BEDTIME PRN Insomnia #30 05/22/24 tabs prednisone 10 mg tablet 10 mg PO DIRECTED #42 tabs 06/12/24 lorazepam 2 mg tablet See Rx Instructions PO .COMPLEX 07/12/24 #60 tabs prazosin 2 mg capsule 4 mg (2 x 2 mg) PO .qhs #60 caps 08/08/24 lurasidone 120 mg tablet 120 mg PO DAILY #30 tabs 08/16/24 semaglutide 2 mg/dose (8 mg/3 mL) See Rx Instructions .Route 08/20/24 subcutaneous pen injector (Ozempic) .COMPLEX #3 mL lithium carbonate 300 mg capsule 300 mg PO BID #60 caps 08/30/24 levothyroxine 150 mcg capsule 150 mcg PO DAILY #30 caps 09/04/24 Allergies Allergy/AdvReac Type Severity Reaction Status Date / Time midodrine Allergy Intermediate ALGY-Rash Verified 09/04/24 16:58 aspirin Allergy due to BUN Verified 09/04/24 16:58 levels coconut Allergy hives Verified 09/04/24 16:58 ketorolac [From Toradol] Allergy hives Verified 09/04/24 16:58 meloxicam [From Mobic] Allergy hives Verified 09/04/24 16:58 NSAIDS (Non-Steroidal Allergy Unknown Verified 09/04/24 16:58 Anti-Inflamma
[2024-09-04] MEDS: sodium chloride 0.9% 1,000 ML 999 ML IV (17:29)
[2024-09-04 17:36] LABS: Troponin(5th) Baseline 9 ng/L (0-10)
[2024-09-04 17:38] LABS: Alanine Aminotransferase 50 U/L (0-33); Alkaline Phosphatase 79 U/L (35-105); Aspartate Amino Transferase 35 U/L (0-32); Blood Urea Nitrogen 17 mg/dL (6-20); Calcium 9.8 mg/dL (8.5-10.5); Carbon Dioxide 26 mmol/L (22-29); Chloride 98 mmol/L (98-107); Glomerular Filtration Rate 28.5 mL/min (90-130); Glucose 142 mg/dL (65-115); Osmolality Calculated 288 mOsm/kg (285-295); Sodium 137 mmol/L (136-145); Total Bilirubin 0.5 mg/dL (0.15-1.2)
--- NOTE | 2024-09-04 18:07 | CTR_ITS ---
PROCEDURE INFORMATION: Exam: CT Abdomen And Pelvis With Contrast Exam date and time: 09/04/2024 6:22 PM Age: 44 years old Clinical indication: Abdominal pain; Additional info: Abd pain TECHNIQUE: Imaging protocol: Computed tomography of the abdomen and pelvis with contrast. Radiation optimization: All CT scans at this facility use at least one of these dose optimization techniques: automated exposure control; mA and/or kV adjustment per patient size (includes targeted exams where dose is matched to clinical indication); or iterative reconstruction. Contrast material: OMNI 350; Contrast volume: 100 ml; Contrast route: INTRAVENOUS (IV); COMPARISON: [place] [id number] 03/08/2024 7:41 PM RADIATION DOSE METRICS: Total DLP (mGy-cm): 975.83 FINDINGS: Liver: The liver demonstrates mild decreased attenuation. Gallbladder and biliary ducts: The gallbladder is surgically absent. Pancreas: Normal. No ductal dilation. Spleen: The spleen is mildly enlarged measuring 13.6 cm in length. Adrenal glands: Normal. No mass. Kidneys and ureters: Normal. No hydronephrosis. Stomach and bowel: There is focal narrowing and stricturing of the colon at the hepatic flexure. This finding may be related to peristalsis or mass at the hepatic flexure. A focal mass suspected. The right colon is filled with fluid. There are multiple mildly prominent loops of small bowel concerning for an ileus/enteritis. Scattered colon diverticula. Appendix: The appendix is surgically absent. Intraperitoneal space: Unremarkable. No free air. No significant fluid collection. Vasculature: Unremarkable. No abdominal aortic aneurysm. Lymph nodes: Unremarkable. No enlarged lymph nodes. Urinary bladder: Unremarkable as visualized. Reproductive: There is a right ovarian cyst measuring 2.6 x 2.7 cm. The uterus is surgically absent. Bones/joints: Unremarkable. No acute fracture. Soft tissues: Unremarkable. CT/CT abdomen pelvis w con* [id number] IMPRESSION: 1. Suspected primary colonic malignancy at the hepatic flexure. Further evaluation with colonoscopy recommended. 2. Findings suggestive of a mild enterocolitis. 3. Hepatic steatosis. 4. Mild splenomegaly. 5. Small right ovarian cyst.
[2024-09-04 18:33] LABS: Lactic Sepsis W/Reflex 1.8 mmol/L (0.5-2.2); Lipase 72 U/L (13-60); Magnesium 2.3 mg/dL (1.7-2.3)
[2024-09-04] MEDS: iohexol 350 mg/mL 500 mL Btl (per mL) IV (18:33)
[2024-09-04] MEDS: piperacillin-tazobactam 3.375 GM in sodium chloride 0.9% (plus) 50 ML IV (18:36)
[2024-09-04] MEDS: norepinephrine 4 MG/250 ML BAG 30 MG IV ×2 (18:49→20:29)
[2024-09-04 19:22] LABS: Bilirubin Urine Negative (Negative); Blood Urine Negative (Negative); Glucose Urine UA Negative (Normal); Ketones Urine Negative (Negative); Leukocyte Esterase Urine Negative (Negative); Nitrate Urine Negative (Negative); Protein Urine Negative (Negative); Specific Gravity, Urine 1.022 (1.005-1.030); Urine Appearance Clear (CLEAR); Urine Color Yellow (Yellow); Urobilinogen Urine 0.2 mg/dL (Negative); pH Urine 6.5 (5-7)
[2024-09-04 19:25] LABS: Add Urine Microscopic? YES; Bacteria Urine None Seen /hpf; RBC Urine 0-2 /hpf (0-2); Squamous Epithelial Cell Urine 0-5 /hpf (0-5); WBC Urine 0-5 /hpf (0-5)
[2024-09-04 19:58] LABS: Adenovirus Not Detected (NOT DETECT); Chlamydia Pneumoniae Not Detected (NOT DETECT); Coronavirus 229E,HKU1,NL63,OC4 Not Detected (NOT DETECT); Human Metapneumovirus Not Detected (NOT DETECT); Human Rhinovirus/Enterovirus Not Detected (NOT DETECT); Influenza A Not Detected (NOT DETECT); Influenza A H1 Not Detected (NOT DETECT); Influenza A H1-2009 Not Detected (NOT DETECT); Influenza A H3 Not Detected (NOT DETECT); Influenza B Not Detected (NOT DETECT); Mycoplasma Pneumoniae Not Detected (NOT DETECT); Parainfluenza Virus Type 1 Not Detected (NOT DETECT); Parainfluenza Virus Type 2 Not Detected (NOT DETECT); Parainfluenza Virus Type 3 Not Detected (NOT DETECT); Parainfluenza Virus Type 4 Not Detected (NOT DETECT); Respiratory Syncytial Virus A Not Detected (NOT DETECT); Respiratory Syncytial Virus B Not Detected (NOT DETECT); SARS-COV-2 Not Detected (NOT DETECT)
[2024-09-04 20:36] LABS: Troponin 5 2HR 6.27 ng/L (0-10)
[2024-09-04 20:37] LABS: Troponin 5 2HR Delta -2.73 ABS# (0-10)
[2024-09-04] MEDS: hydrocortisone 100 mg/2 mL SDV IVP (21:36)
[2024-09-04 21:48] LABS: Lithium 0.6 mmol/L (0.6-1.2)
[2024-09-04] MEDS: orphenadrine 30 mg/mL Inj 2 mL 60 MG IVP (22:21)
--- NOTE | 2024-09-04 23:31 | P.CONIM_ITS ---
Providers/Reason For Consult 2 Consulting Physician/Specialty*: dr. brumfield general surgery Reason for Consult*: colon cancer Primary Care Provider: Michelle Rico History of Present Illness History of Present Illness Nina Garcia is a 44 year old female who presents with nausea and vomiting. Persistently hypotensive in ER. Currently on levo@2. Patient has been coming to the ED since February for vomiting about [address] scan today revealed what appears to be a hepatic flexure as well as a splenic flexure mass. Dilated bowel proximal to the hepatic flexure as well as fecalized small bowel and gastric contents. Decreased stool caliber. Last BM yesterday. Passing some flatus. Abdomen distended, benign. Medications/Allergies Home Medications Medication Instructions Recorded Confirmed Last Taken Type ondansetron 8 mg disintegrating 8 mg PO Q8H PRN Nausea And Vomiting 12/09/21 09/03/24 06/26/24 History tablet pen needle, diabetic 32 gauge x #50 ea 05/28/22 09/03/24 08/16/23 Rx 32 (1st Tier Unifine Pentips) allopurinol 300 mg tablet 300 mg PO QAM 11/25/22 09/03/24 06/26/24 History promethazine 25 mg rectal 25 mg [place] Q6H PRN nausea and 09/30/23 09/03/24 06/26/24 Rx suppository vomiting #12 ea lamotrigine 200 mg tablet 200 mg PO QAM #30 tabs 01/02/24 09/03/24 06/26/24 Rx hydromorphone 4 mg tablet 4 mg PO Q4H 05/14/24 09/03/24 06/26/24 History (Dilaudid) spironolactone 25 1 tab PO DAILY 05/14/24 09/03/24 06/26/24 History mg-hydrochlorothiazide 25 mg tablet telmisartan 80 mg tablet 40 mg PO DAILY 05/14/24 09/03/24 06/26/24 History tizanidine 4 mg tablet 8 mg PO QID 05/14/24 09/03/24 06/26/24 History zolpidem 10 mg tablet 10 mg PO BEDTIME PRN Insomnia #30 05/22/24 09/03/24 06/26/24 Rx tabs prednisone 10 mg tablet 10 mg PO DIRECTED #42 tabs 06/12/24 09/03/24 06/26/24 Rx lorazepam 2 mg tablet See Rx Instructions PO .COMPLEX 07/12/24 09/03/24 Unknown Rx #60 tabs prazosin 2 mg capsule 4 mg (2 x 2 mg) PO .qhs #60 caps 08/08/24 09/03/24 Unknown Rx lurasidone 120 mg tablet 120 mg PO DAILY #30 tabs 08/16/24 09/03/24 Unknown Rx semaglutide 2 mg/dose (8 mg/3 mL) See Rx Instructions .Route 08/20/24 09/03/24 Unknown Rx subcutaneous pen injector (Ozempic) .COMPLEX #3 mL hydralazine 50 mg tablet 50 mg PO TID PRN 08/30/24 09/03/24 Unknown History lithium carbonate 300 mg capsule 300 mg PO BID #60 caps 08/30/24 09/03/24 Unknown Rx levothyroxine 150 mcg capsule 150 mcg PO DAILY #30 caps 09/04/24 Unknown Rx Allergies Allergy/AdvReac Type Severity Reaction Status Date / Time midodrine Allergy Intermediate ALGY-Rash Verified 09/04/24 16:58 aspirin Allergy due to BUN Verified 09/04/24 16:58 levels coconut Allergy hives Verified 09/04/24 16:58 ketorolac [From Toradol] Allergy hives Verified 09/04/24 16:58 meloxicam [From Mobic] Allergy hives Verified 09/04/24 16:58 NSAIDS (Non-Steroidal Allergy Unknown Verified 09/04/24 16:58 Anti-Inflamma Current Medications Generic Name Dose Route Start Last Admin Trade Name Freq PRN Reason Stop Dose Admin Norepinephrine Bitartrate 4 mg in 250 mls @ 0 mls/hr 09/04/24 18:15 09/04/24 21:16 Levophed IV 2 mcg/min .Q0M ZARINA 7.5 mls/hr Titration Protocol Per Protocol PFSH Acute 2 PFSH: Medical History Resistant hypertension GERD (gastroesophageal reflux disease) Nausea & vomiting CKD (chronic kidney disease) Hypothyroid Hypertensive urgency, malignant Pulmonary embolism Chest pain at rest Psychiatric care HLD (hyperlipidemia) DM2 (diabetes mellitus, type 2) Chronic back pain Chronic neck and back pain Post traumatic stress disorder (PTSD) Bipolar 1 disorder, depressed, full remission Hypertensive emergency Palpitation Malignant hypertension Chronic renal disease Generalized anxiety disorder Surgical History History of back surgery H/O esophagogastroduodenoscopy (08/12/20) H/O angioplasty History of colonoscopy with polypectomy (08/12/20) History of spinal fusion 10/01/2013- C5-6, ACDFF Dr. Villanueva H/O rectal polypectomy Status post hemilaminotomy 01/06/2012, right L5-S1, disectomy and foraminotomy per Dr. Villanueva History of suburethral sling procedure anterior colporrhapy augmentd with porcine graft, cystoscopy performed on 03/08/[address] Haley History of total hysterectomy 2000 Hx of cholecystectomy History of appendectomy History of bilateral oophorectomy 2011 H/O total thyroidectomy Family History Mother Diabetes Pancreatic cancer Ovarian cancer Father Diabetes Hypertension Stroke COPD (chronic obstructive pulmonary disease) Grandfather Hypertension maternal Heart disease maternal Grandmother Colon cancer maternal Social History Smoking and tobacco/nicotine status: never used tobacco/nicotine Second hand smoke exposure: Yes Alcohol intake: never Substance/Drug Use: never Additional social history: well balanced diet Caregiver/support person: No Lives independently: Yes Household members: spouse Housing: House Marital status: Number of children: 8 Highest education level completed: GED or Equivalent service: No Current occupational status: unemployed Vitals/I&O/Wt Last Vital Signs Temp 97.7 F 09/04/24 16:48 Pulse 75 09/04/24 22:39 Resp 16 09/04/24 22:14 BP 121/93 09/04/24 22:39 Pulse Ox 99 09/04/24 22:39 O2 Del Method Room Air 09/04/24 20:31 09/04/24 09/04/24 09/05/24 14:59 22:59 06:59 Intake Total 1018.25 / 1018.25 Balance 1018.25 / 1018.25 Weight last 48 hrs Weight 185 lb Physical Exam 2 Narrative: RRR. Levo@2 Unlabored breathing RA Abdomen soft, mildly TTP, distended Urinary Catheter Management: Reyes: Cath Placed During This Visit: yes Urinary Catheter Date of Insertion: 09/04/24 Urinary Catheter Time of Insertion: 18:52 Data 09/04/24 17:03 09/04/24 17:03 Micro: Microbiology 09/04/24 18:42 Blood Culture - Preliminary Blood SPECIMEN COLLECTED 09/04/24 18:35 Blood Culture - Preliminary Blood SPECIMEN COLLECTED A&P Assessment and plan (1) Mass of colon: Plan 44yo female who presents with two colonic masses at the hepatic and splenic flexure as demonstrated on CT scan who presents with a partial large bowel obstruction. Still on levo@2 after resuscitation. Patient needs to be transferred to higher level of care with a colorectal surgeon. She may need to be temporized with a colonic stent to allow for ongoing resuscitation and staging prior to colectomy. Coding Level of Care Code 83474 Diagnoses Mass of colon K63.89 Time Spent (min) 30
[2024-09-05] VITALS: BP 110/75; PULSE 79; O2SAT 96
[2024-09-05 00:45] VITALS: BP 133/93; PULSE 77; O2SAT 97
[2024-09-05 00:53] VITALS: RESP 18; O2SAT 100
[2024-09-05] MEDS: ondansetron 2 mg/ML SDV 2 mL 4 MG IVP (00:53)
[2024-09-05] MEDS: morphine 4 mg/mL SDV 1 mL IVP (00:53)
[2024-09-05 00:57] LABS: Troponin 5 6HR 6.59 ng/L (0-10)
[2024-09-05 01:03] LABS: Troponin 5 6HR Delta -2.41 ng/L (0-12)
[2024-09-05 02:35] VITALS: BP 138/92; PULSE 74; O2SAT 97
== END 2024-09-05 01:00 | disposition short-term general hospital (02) ==
PROVIDERS: Family Medicine; Emergency Provider Emergency Medicine; PCP Nurse Practitioner Family
DX: I95.9 Hypotension, unspecified (principal); E27.40 Unspecified adrenocortical insufficiency; R10.9 Unspecified abdominal pain; K63.89 Other specified diseases of intestine; Z11.52 Encounter for screening for COVID-19; E11.22 Type 2 diabetes mellitus with diabetic chronic kidney disease; I12.9 Hypertensive chronic kidney disease with stage 1 through stage 4 chronic kidney disease, or unspecified chronic kidney disease; N18.9 Chronic kidney disease, unspecified; E78.5 Hyperlipidemia, unspecified
CPT/HCPCS: 36415; 51702; 71045; 74177; 80053; 80178; 81001; 83605; 83690; 83735; 84484; 85025; 87040; 87486; 87581; 87633; 93005; 96365; 96375; 99285; J1720; J2270; J2360; J2405; J2543; J7030

== ENCOUNTER 2024-11-15 15:09 | Outpatient (CLI) | payer OTHER, SELFPAY ==
[2024-11-15 16:28] LABS: Alanine Aminotransferase 9 U/L (0-33); Albumin Level 4.3 g/dL (3.5-5.2); Alkaline Phosphatase 41 U/L (35-105); Anion Gap 15.6 (5-19); Aspartate Amino Transferase 12 U/L (0-32); Blood Urea Nitrogen 10 mg/dL (6-20); Calcium 8.9 mg/dL (8.5-10.5); Carbon Dioxide 28 mmol/L (22-29); Chloride 101 mmol/L (98-107); Chol HDL Ratio 2.34 mg/dL (0.0-4.40); Cholesterol 110 mg/dL (0-200); Free T4 Free Thyroxine 1.63 ng/dL (0.82-1.77); Globulin 2.5 g/dL (1.3-4.6); Glomerular Filtration Rate 44.1 mL/min (90-130); Glucose 108 mg/dL (65-115); HDL Cholesterol 47 mg/dL (60-100); LDL Cholesterol Calculated 43 mg/dL (50-129); LDL HDL Ratio 0.91 RATIO (0.00-3.22); Osmolality Calculated 292 mOsm/kg (285-295); Potassium 3.6 mmol/L (3.5-5.1); Sodium 141 mmol/L (136-145); Total Bilirubin 0.2 mg/dL (0.15-1.2); Total Protein 6.8 g/dL (6.6-8.7); Triglycerides 101 mg/dL (0-150)
[2024-11-15 16:55] LABS: Estmated Average Glucose 123; Hemoglobin A1C 5.9 % (4.0-6.0)
[2024-11-15 17:16] LABS: Creatinine Urine, Random 72 mg/dL (28-217); Microalbum Creatinine Ratio Ur 14 mg/dL (0-20); Microalbumin Random Urine 1 ug/dL (0-20)
== END 2024-11-15 15:10 | disposition home or self-care (01) ==
LOC: LAB 15:13
PROVIDERS: PCP Nurse Practitioner Family; Visit Provider Internal Medicine
DX: E11.9 Type 2 diabetes mellitus without complications (principal); E03.9 Hypothyroidism, unspecified
CPT/HCPCS: 36415; 80053; 80061; 82044; 83036; 84439; 84443

== ENCOUNTER 2024-12-05 11:05 | Outpatient (CLI) | payer OTHER, SELFPAY ==
--- NOTE | 2024-12-05 11:15 | XRR_ITS ---
PROCEDURE INFORMATION: Exam: XR Thoracic Spine Exam date and time: 12/05/2024 11:24 AM Age: 44 years old Clinical indication: Pain in thoracic spine; Additional info: Thoracic region back pain TECHNIQUE: Imaging protocol: Radiologic exam of the thoracic spine. Views: 3 views. COMPARISON: CT abdomen pelvis w con* [id number] 09/04/2024 6:22 PM FINDINGS: Bones/joints: The AP view demonstrates very minimal/subtle concave deformity of the mid aspect of the superior and inferior endplate of T5 in relation to the other thoracic vertebra. Thoracic vertebral body heights appear maintained when correlating both AP and lateral views without compression deformity. AP view demonstrates minimal levoscoliosis mid to lower thoracic spine. Alignment is otherwise unremarkable. Disc spaces appear maintained. No acute osseous abnormality otherwise. Soft tissues: No significant soft tissue abnormality. XR/XR thoracic spine 3V* [id number] IMPRESSION: 1. AP view demonstrates very minimal/subtle concave deformity of the mid aspect of the superior and inferior endplate of T5 with thoracic vertebral body heights appear maintained otherwise. Possible chronic change or appearance and particularly without a history of acute injury. Follow-up or further evaluation as clinically indicated. 2. Minimal scoliosis.
--- NOTE | 2024-12-05 11:15 | XRR_ITS ---
PROCEDURE INFORMATION: Exam: XR Lumbosacral Spine Exam date and time: 12/05/2024 11:24 AM Age: 44 years old Clinical indication: Pain; Lumbago with sciatica; Additional info: Lumbago w/sciatica TECHNIQUE: Imaging protocol: Radiologic exam of the lumbosacral spine. Views: 2 or 3 views. COMPARISON: OT XR lumbar spine 1V [id number] 01/01/2022 5:22 AM FINDINGS: Bones/joints: Lumbar vertebral body heights appear maintained, without compression deformity. Disc space narrowing noted L4-L5 and L5-S1 levels indicating degenerative disc disease. Remainder of the disc spaces appear maintained. Mild lower facet spondylotic change. No acute osseous abnormality. No significant spondylolisthesis. Soft tissues: Soft tissues show no significant abnormality. XR/XR lumbar spine 2-3V* [id number] IMPRESSION: Spondylotic change lower lumbar spine with moderate degenerative disc disease L4-L5 and L5-S1 levels.
== END 2024-12-05 11:06 | disposition home or self-care (01) ==
PROVIDERS: PCP Nurse Practitioner Family; Visit Provider Nurse Practitioner Family
DX: M54.40 Lumbago with sciatica, unspecified side (principal); M51.369 Other intervertebral disc degeneration, lumbar region without mention of lumbar back pain or lower extremity pain; M51.379 Other intervertebral disc degeneration, lumbosacral region without mention of lumbar back pain or lower extremity pain; M47.896 Other spondylosis, lumbar region; M47.897 Other spondylosis, lumbosacral region
CPT/HCPCS: 72072; 72100

== ENCOUNTER 2024-12-17 09:57 | Outpatient (CLI) | payer OTHER, SELFPAY ==
--- NOTE | 2024-12-17 09:59 | MM_ITS ---
WS: [id number] BILATERAL 3D TOMOSYNTHESIS DIGITAL SCREENING MAMMOGRAPHY WITH CAD CLINICAL INFORMATION: SCREEN HISTORY: Screening mammogram. No current complaints. COMPARISON: 11/18/2023 TECHNIQUE: Bilateral CC and MLO views. FINDINGS: Scattered fibroglandular densities bilaterally. No suspicious focal mass, asymmetry, calcifications, or architectural distortion. No evidence of malignancy. Incidental punctate calcification RIGHT breast. Vascular calcification. MM/MM scr tomosynthesis [id number] IMPRESSION: DENSITY: There are scattered areas of fibroglandular density. BI-RADS: 2 - Benign. FOLLOW UP: 1 Year Follow-up Recommend return to annual screening mammography.
== END 2024-12-17 09:58 | disposition home or self-care (01) ==
PROVIDERS: PCP Nurse Practitioner Family; Visit Provider Nurse Practitioner Family
DX: Z12.31 Encounter for screening mammogram for malignant neoplasm of breast (principal); R92.323 Mammographic fibroglandular density, bilateral breasts; R92.1 Mammographic calcification found on diagnostic imaging of breast
CPT/HCPCS: 77063; 77067

== ENCOUNTER 2025-01-09 09:48 | Outpatient (CLI) | payer OTHER, SELFPAY ==
[2025-01-09 11:17] LABS: Blood Urea Nitrogen 9 mg/dL (6-20); Calcium 9.1 mg/dL (8.5-10.5); Carbon Dioxide 28 mmol/L (22-29); Chloride 99 mmol/L (98-107); Free T4 Free Thyroxine 1.32 ng/dL (0.82-1.77); Glomerular Filtration Rate 28.5 mL/min (90-130); Sodium 136 mmol/L (136-145)
[2025-01-09 11:32] LABS: Glucose 23 mg/dL (65-115); Osmolality Calculated 276 mOsm/kg (285-295)
== END 2025-01-09 09:49 | disposition home or self-care (01) ==
LOC: LAB 09:54
PROVIDERS: Absent Provider Psychiatry & Neurology Psychiatry; PCP Nurse Practitioner Family; Visit Provider Internal Medicine
DX: I95.2 Hypotension due to drugs (principal); Z79.899 Other long term (current) drug therapy; E03.9 Hypothyroidism, unspecified
CPT/HCPCS: 36415; 80048; 80178; 84439; 84443

== ENCOUNTER 2025-01-10 10:58 | Observation (INO) | payer OTHER, SELFPAY ==
[2025-01-10] VITALS (27 sets, daily range): BP systolic 64–123; BP diastolic 45–91; PULSE 51–83; RESP 12–19; TEMP 36.4–36.6; O2SAT 92–100; BMI 33.3; BMI 33.8
--- NOTE | 2025-01-10 11:06 | ECG_ITS ---
[facility] Date: 2025-01-10 Pat Name: Nina Garcia Department: Room: Gender: Female [employer]: : 1980 Requested By: Giorgio Jackman Order Number: [id number] Reading MD: SHIVANI GONZALEZ Measurements Intervals [place] Rate: 56 P: 39 CA: 196 QRS: 87 QRSD: 101 T: 46 QT: 422 QTc: 410 Interpretive Statements SINUS BRADYCARDIA Compared to ECG 09/04/2024 16:50:30 Sinus rhythm no longer present Right-axis deviation no longer present Electronically Signed On 01-10-2025 23:27:51 CDT by SHIVANI GONZALEZ [email or web address]
[2025-01-10] MEDS: sodium chloride 0.9% 1,000 ML 999 ML IV (12:15)
[2025-01-10 12:23] LABS: Basophils # 0.1 10^3/uL (0.0-0.1); Basophils % 1.2 %; Eosinophils # 0.7 10^3/uL (0.0-0.8); Eosinophils % 9.6 %; Hematocrit 37.5 % (36-47); Lymphocytes # 2.9 10^3/uL (0.8-4.8); Lymphocytes % 38.4 %; Mean Corpuscular HGB Conc 30.9 g/dL (30-55); Mean Corpuscular Hemoglobin 29.4 pg (27-33); Mean Corpuscular Volume 94.9 fl (85-98); Mean Platelet Volume 13.1 fL (7.4-10.4); Monocytes # 0.5 10^3/uL (0.2-0.9); Monocytes % 6.2 %; Neutrophils # 3.28 10^3/uL (1.8-7.7); Neutrophils % 44.2 %; Nucleated Red Blood Cells % 0 %; Platelet Count 167 10^3/cmm (157-399); Red Blood Count 3.95 10^6/uL (3.85-5.65); White Blood Count 7.42 10^3/uL (3.29-11.43)
[2025-01-10 12:25] LABS: Glucose Point of Care 100 mg/dL (70-110)
[2025-01-10 12:32] LABS: Slide Review Slide Review Perform
[2025-01-10 12:36] LABS: Lactic Sepsis W/Reflex 1.2 mmol/L (0.5-2.2)
[2025-01-10 12:50] LABS: Alanine Aminotransferase 12 U/L (0-33); Albumin Level 4.1 g/dL (3.5-5.2); Alkaline Phosphatase 36 U/L (35-105); Anion Gap 10.8 (5-19); Aspartate Amino Transferase 17 U/L (0-32); Blood Urea Nitrogen 9 mg/dL (6-20); Calcium 8.9 mg/dL (8.5-10.5); Carbon Dioxide 29 mmol/L (22-29); Chloride 101 mmol/L (98-107); Creatinine Clr Calc Pharmacy 48.8883; Globulin 2.9 g/dL (1.3-4.6); Glomerular Filtration Rate 34.7 mL/min (90-130); Glucose 76 mg/dL (65-115); Magnesium 2.3 mg/dL (1.7-2.3); NT Pro B Type Natriuretic Pept 124 pg/mL (0-125); Osmolality Calculated 281 mOsm/kg (285-295); Potassium 3.8 mmol/L (3.5-5.1); Sodium 137 mmol/L (136-145); Total Bilirubin 0.2 mg/dL (0.15-1.2)
[2025-01-10] MEDS: acetaminophen 500 mg Tablet 1000 MG PO (12:56)
[2025-01-10 13:38] LABS: Free T4 Free Thyroxine 1.62 ng/dL (0.82-1.77); Thyroid Stimulating Hormone 93.08 uIU/mL (0.27-4.20)
[2025-01-10 13:52] LABS: Bilirubin Urine Negative (Negative); Blood Urine Negative (Negative); Glucose Urine UA Negative (Normal); Ketones Urine Negative (Negative); Leukocyte Esterase Urine Negative (Negative); Nitrate Urine Negative (Negative); Protein Urine Negative (Negative); Specific Gravity, Urine 1.008 (1.005-1.030); Urine Appearance Clear (CLEAR); Urine Color Yellow (Yellow); pH Urine 6.5 (5-7)
[2025-01-10 13:57] LABS: Add Urine Microscopic? YES; Bacteria Urine Trace /hpf; Hyaline Casts Urine 0.81 /lpf; RBC Urine 0-2 /hpf (0-2); WBC Urine 0-5 /hpf (0-5)
[2025-01-10 14:12] LABS: Squamous Epithelial Cell Urine 0-5 /hpf (0-5); UA Slide Review UA Slide Review Perf
[2025-01-10 14:13] LABS: Add Urine Culture? No
--- NOTE | 2025-01-10 14:31 | W.ED.DIZZY ---
HPI - Dizziness General: Chief Complaint: Dizziness Stated Complaint: Rapid Resp. Time Seen by Provider: 01/10/25 11:35 Source: patient Mode of arrival: EMS Limitations: no limitations History of Present Illness: HPI Narrative: Patient was in his wrap response from clinic. She was there and had lightheadedness and a blood pressure in 70s over 40s. Apparently she is not having near syncope and in fact had a single episode night before last at home. She reports has been like this for a little bit just getting gradually worse. Related Data Home Medications ?Medication ?Instructions ?Recorded ?Confirmed ondansetron 8 mg disintegrating 8 mg PO Q8H PRN Nausea And Vomiting 12/09/21 01/10/25 tablet allopurinol 300 mg tablet 300 mg PO QAM 11/25/22 01/10/25 hydromorphone 4 mg tablet 4 mg PO Q4H 05/14/24 01/10/25 (Dilaudid) spironolactone 25 1 tab PO DAILY 05/14/24 01/10/25 mg-hydrochlorothiazide 25 mg tablet telmisartan 80 mg tablet 40 mg PO DAILY 05/14/24 01/10/25 tizanidine 4 mg tablet 8 mg PO QID 05/14/24 01/10/25 hydralazine 50 mg tablet 50 mg PO TID PRN Anxiety 08/30/24 01/10/25 levothyroxine 150 mcg tablet 150 mcg PO DAILY 01/10/25 01/10/25 Previous Rx's ?Medication ?Instructions ?Recorded promethazine 25 mg rectal 25 mg WI Q6H PRN nausea and 09/30/23 suppository vomiting #12 ea lorazepam 2 mg tablet See Rx Instructions PO .COMPLEX 07/12/24 #60 tabs prazosin 2 mg capsule 4 mg (2 x 2 mg) PO .qhs #60 caps 08/08/24 lurasidone 120 mg tablet 120 mg PO DAILY #30 tabs 08/16/24 lamotrigine 200 mg tablet 200 mg PO QAM #30 tabs 11/09/24 prednisone 10 mg tablet 10 mg PO QDAY 30 days #30 tabs 11/15/24 semaglutide 2 mg/dose (8 mg/3 mL) See Rx Instructions .Route 11/19/24 subcutaneous pen injector (Ozempic) .COMPLEX #3 mL zolpidem 10 mg tablet 10 mg PO BEDTIME PRN Insomnia #30 12/17/24 tabs lithium carbonate 150 mg capsule 150 mg PO QAM #30 caps 01/10/25 lithium carbonate 300 mg capsule 300 mg PO .qhs #30 caps 01/10/25 Allergies Allergy/AdvReac Type Severity Reaction Status Date / Time midodrine Allergy Intermediate ALGY-Rash Verified 11/15/24 16:34 aspirin Allergy due to BUN Verified 11/15/24 16:34 levels coconut Allergy hives Verified 11/15/24 16:34 ketorolac (From Toradol) Allergy hives Verified 11/15/24 16:34 meloxicam (From Mobic) Allergy hives Verified 11/15/24 16:34 NSAIDS (Non-Steroidal Allergy Unknown Verified 11/15/24 16:34 Anti-Inflamma Review of Systems General: Reports: 10 or more systems reviewed and unremarkable except in HPI and below PFSH ED PFSH: Medical History (Updated 01/10/25 @ 14:54 by Sadiq Lofton MD) Resistant hypertension GERD (gastroesophageal reflux disease) Nausea & vomiting CKD (chronic kidney disease) Hypothyroid Hypertensive urgency, malignant Pulmonary embolism Chest pain at rest Psychiatric care HLD (hyperlipidemia) DM2 (diabetes mellitus, type 2) Chronic back pain Chronic neck and back pain Post traumatic stress disorder (PTSD) Bipolar 1 disorder, depressed, full remission Hypertensive emergency Palpitation Malignant hypertension Chronic renal disease Generalized anxiety disorder Surgical History (Updated 09/19/24 @ 11:34 by LEEROY Johnson) History of back surgery H/O esophagogastroduodenoscopy (08/12/20) H/O angioplasty History of colonoscopy with polypectomy (08/12/20) History of spinal fusion 10/01/2013- C5-6, ACDFF Dr. Villanueva H/O rectal polypectomy Status post hemilaminotomy 01/06/2012, right L5-S1, disectomy and foraminotomy per Dr. Villanueva History of suburethral sling procedure anterior colporrhapy augmentd with porcine graft, cystoscopy performed on 03/08/[address] Haley History of total hysterectomy 2000 Hx of cholecystectomy History of appendectomy History of bilateral oophorectomy 2011 H/O total thyroidectomy Family History Mother Diabetes Pancreatic cancer Ovarian cancer Father Diabetes Hypertension Stroke COPD (chronic obstructive pulmonary disease) Grandfather Hypertension maternal Heart disease maternal Grandmother Colon cancer maternal Social History Smoking and tobacco/nicotine status: unknown if used tobacco/nicotine Second hand smoke exposure: Yes Alcohol intake: never Substance/Drug Use: never Additional social history: well balanced diet Caregiver/support person: No Lives independently: Yes Household members: spouse Housing: House Marital status: Number of children: 8 Highest education level completed: GED or Equivalent service: No Current occupational status: unemployed Physical Exam Const: COMMON NORMALS: no acute distress, average body habitus, patient oriented x3, healthy appearing, alert and well nourished GENERAL APPEARANCE: well kempt and well developed HENMT: COMMON NORMALS: normocephalic, atraumatic, external ears normal and moist oral mucous membranes HEAD & SCALP: normocephalic and atraumatic EXTERNAL EAR: Yes external ears normal Eye: COMMON NORMALS: Equal, round and reactive pupils present, EOMs intact bilaterally and conjunctivae normal CONJUNCTIVA: Yes conjunctivae normal PUPIL: Yes Equal, round and reactive pupils present Neck/C-Spine: COMMON NORMALS: full ROM, no lymphadenopathy and supple Chest: CHEST: Yes Symmetrical chest wall rise and No Surgical scars present (Chest) Resp: COMMON NORMALS: normal respiratory effort, No retractions, No use of accessory muscles and clear to auscultation bilaterally AUSCULTATION: clear to auscultation bilaterally Cardio: COMMON NORMALS: regular rate, regular rhythm, S1 normal heart sound present, S2 normal heart sound present, No gallops present (Cardio), No clicks present (Cardio), No murmurs present (Cardio) and No rub (Cardio) RATE: regular rate RHYTHM: regular rhythm HEART SOUNDS: S1 normal heart sound present, S2 normal heart sound present and no murmurs PERIPHERAL PULSES: other (Radial pulses 2+ and symmetric) GI: COMMON NORMALS: Soft to palpation, non-tender and no masses INSPECTION: No abdominal distension PALPATION: Yes Soft to palpation, No Guarding due to palpation present (GI) and No Rebound tenderness present : COMMON NORMALS: Yes no CVA tenderness BLADDER/KIDNEY EXAM: Yes no CVA tenderness Back/Pelvis: COMMON NORMALS: no CVA tenderness Extremity: COMMON NORMALS: normal to inspection, full ROM, capillary refill normal and no clubbing, cyanosis or edema Neuro: MIKAYLA COMA SCALE: other (Cognition and response times do seem slightly slowed) COMMON NORMALS: patient oriented x3 SENSORIUM/ORIENTATION: Yes alert Psych: APPEARANCE: Yes well kempt Skin: COMMON NORMALS: no rashes or lesions noted, no wounds, turgor normal and no jaundice GENERAL SKIN EXAM: no rashes or lesions noted and turgor normal Course Reevaluation(s): Reevaluation #1: Reevaluate patient. Blood pressure is slightly improved although patient is still laying in Trendelenburg. Still has issues with standing and getting near syncopal. TSH is wildly elevated I have informed her of this and discussed admission. Patient is agreeable. Time: 14:40 Vital Signs: Vital signs: Vital Signs Temperature 97.6 F 01/10/25 11:06 Pulse Rate 57 L 01/10/25 14:30 Respiratory Rate 18 01/10/25 13:45 Blood Pressure 101/80 01/10/25 14:30 Pulse Oximetry 97 01/10/25 14:30 Oxygen Delivery Me thod Room Air 01/10/25 14:30 MDM - Dizziness Medical Decision Making 44-year-old female rep response from clinic due to hypertension. Having some near syncopal and single episodes at home. Reports she was unsure as her blood pressure or her blood sugar. Patient is the posterior child of polypharmacy with multiple sedating meds as well as multiple different medications interfering with blood pressure. She is on hydralazine 3 times daily for anxiety she is on HCTZ spironolactone as well as telmisartan. On top of that her muscle relaxer is tizanidine 8 mg. Which is alpha antagonist. Unsure how the Lamictal may also play into this. Her lithium level is good. But her TSH is 93 while it is slightly better in the past 6 months where she was in the 140s to 120s. It could definitely be surging to her fatigue and hypotension. Of which she would like cannot tell that she is fatigued secondary to the hydromorphone that she is on 4-5 times daily then combined with Ambien for sleep. Case discussed with the hospitalist Dr. Jo who agrees to admit. Medical Records I reviewed the patient's medical records. Lab Data I reviewed the patient's lab results. 01/10/25 11:20 01/10/25 11:20 Laboratory Results WBC 7.42 10^3/uL (3.29-11.43) 01/10/25 11:20 RBC 3.95 10^6/uL (3.85-5.65) 01/10/25 11:20 Hgb 11.60 g/dL (11.27-16.99) 01/10/25 11:20 Hct 37.5 % (36-47) 01/10/25 11:20 MCV 94.9 fl (85-98) 01/10/25 11:20 MCH 29.4 pg (27-33) 01/10/25 11:20 MCHC 30.9 g/dL (30-55) 01/10/25 11:20 RDW 13.0 % (12.1-15.1) 01/10/25 11:20 Plt Count 167 10^3/cmm (157-399) 01/10/25 11:20 MPV 13.1 fL (7.4-10.4) H 01/10/25 11:20 Neut % (Auto) 44.2 % 01/10/25 11:20 Lymph % (Auto) 38.4 % 01/10/25 11:20 Stewart % (Auto) 6.2 % 01/10/25 11:20 Eos % (Auto) 9.6 % 01/10/25 11:20 Baso % (Auto) 1.2 % 01/10/25 11:20 Neut # (Auto) 3.28 10^3/uL (1.8-7.7) 01/10/25 11:20 Lymph # (Auto) 2.9 10^3/uL (0.8-4.8) 01/10/25 11:20 Stewart # (Auto) 0.5 10^3/uL (0.2-0.9) 01/10/25 11:20 Eos # (Auto) 0.7 10^3/uL (0.0-0.8) 01/10/25 11:20 Baso # (Auto) 0.1 10^3/uL (0.0-0.1) 01/10/25 11:20 Nucleated RBC % (auto) 0 % 01/10/25 11:20 Nucleated RBCs # 0.0 /100WBC 01/10/25 11:20 Sodium 137 mmol/L (136-145) 01/10/25 11:20 Potassium 3.8 mmol/L (3.5-5.1) 01/10/25 11:20 Chloride 101 mmol/L (98-107) 01/10/25 11:20 Carbon Dioxide 29 mmol/L (22-29) 01/10/25 11:20 Anion Gap 10.8 (5-19) 01/10/25 11:20 BUN 9 mg/dL (6-20) 01/10/25 11:20 Creatinine 1.6 mg/dL (0.5-0.9) H 01/10/25 11:20 GFR Calculation 34.7 mL/min (90-130) L 01/10/25 11:20 Glucose 76 mg/dL (65-115) 01/10/25 11:20 POC Glucose 100 mg/dL (70-110) 01/10/25 12:23 Calculated Osmolality 281 mOsm/kg (285-295) L 01/10/25 11:20 Lactic Acid 1.2 mmol/L (0.5-2.2) 01/10/25 11:20 Calcium 8.9 mg/dL (8.5-10.5) 01/10/25 11:20 Magnesium 2.3 mg/dL (1.7-2.3) 01/10/25 11:20 Total Bilirubin 0.2 mg/dL (0.15-1.2) 01/10/25 11:20 AST 17 U/L (0-32) 01/10/25 11:20 ALT 12 U/L (0-33) 01/10/25 11:20 Alkaline Phosphatase 36 U/L (35-105) 01/10/25 11:20 NT-Pro-B Natriuret Pep 124 pg/mL (0-125) 01/10/25 11:20 Total Protein 7.0 g/dL (6.6-8.7) 01/10/25 11:20 Albumin 4.1 g/dL (3.5-5.2) 01/10/25 11:20 Globulin 2.9 g/dL (1.3-4.6) 01/10/25 11:20 TSH 93.08 uIU/mL (0.27-4.20) H 01/10/25 11:20 Free T4 1.62 ng/dL (0.82-1.77) 01/10/25 11:20 Urine Color Yellow (Yellow) 01/10/25 13:38 Urine Appearance Clear (CLEAR) 01/10/25 13:38 Urine pH 6.5 (5-7) 01/10/25 13:38 Ur Specific [place] 1.008 (1.005-1.030) 01/10/25 13:38 Urine Protein Negative (Negative) 01/10/25 13:38 Urine Glucose (UA) Negative (Normal) 01/10/25 13:38 Urine Ketones Negative (Negative) 01/10/25 13:38 Urine Blood Negative (Negative) 01/10/25 13:38 Urine Nitrate Negative (Negative) 01/10/25 13:38 Urine Bilirubin Negative (Negative) 01/10/25 13:38 Urine Urobilinogen 1.0 mg/dL (Negative) 01/10/25 13:38 Ur Leukocyte Esterase Negative (Negative) 01/10/25 13:38 Urine RBC 0-2 /hpf (0-2) 01/10/25 13:38 Urine WBC 0-5 /hpf (0-5) 01/10/25 13:38 Ur Squamous Epith Cells 0-5 /hpf (0-5) 01/10/25 13:38 Amorphous Sediment Not Reportable 01/10/25 13:38 Urine Bacteria Trace /hpf (NONE) 01/10/25 13:38 Hyaline Casts 0.81 /lpf 01/10/25 13:38 [place] 1.0 mmol/L (0.6-1.2) 01/10/25 11:20 No radiology studies performed this visit Critical Care Time Critical Care Time: Critical Care Time: Yes Total Critical Care Time: 42 Attestation: This case had a high probability of a clinically significant, sudden, or life threatening deterioration of this patient's condition which required my full and direct attention, intervention and personal management. Discharge Plan Discharge Patient Disposition: Placed in Observation Clinical Impression: Adult myxedema, Acute hypotension, At risk for polypharmacy, Nonadherence to medication Coding Level of Care Code ED Commodities Manager for Ingrid Lindsay
[2025-01-10] MEDS: levothyroxine 100 mcg/mL SDV IVP (14:53)
--- NOTE | 2025-01-10 15:12 | PC.NURSE ---
pt report called to Emi on CSU at 1510.
--- NOTE | 2025-01-10 15:17 | PM.HP ---
Providers/Chief Complaint Admitting Physician: Kervin Brar MD Primary Care Provider: Michelle Rico Chief Complaint: Rapid Resp. History of Present Illness Nina Garcia is a 44 year old female with past medical history of labile hypertension, uncontrolled hypertension in past, type 2 diabetes mellitus, CKD, labile hypothyroidism, hyperlipidemia, adrenal insufficiency on hydrocortisone, goitre, post surgical hypothyroidism, on chronic pain medications was sent into the ER as a rapid response from endocrinology office where she had an episode of syncope. Patient was brought to the ER for systolic blood pressure of 64 mmHg. Patient had passed out in the office hence rapid response was called. Patient received Vitro fluid bolus after which her blood pressures improved. On examination she is sitting comfortably in bed with a systolic blood pressure of 115 mmHg. Patient denies any nausea vomiting, headache, dizziness, recent changes in medication, recent difficulty breathing, runny nose. She states she takes antihypertensive only as needed and probably once or twice a month. She has soft blood pressures down to 80 systolics once or twice a week. She states while sitting in endocrine office today she had dizziness, lightheadedness and passed out. She does not remember being brought to the ER. Review of Systems General: Reports: 10 or more systems reviewed and unremarkable except in HPI and below Const: Denies: fever(s), chills, body aches, change in appetite, change in weight, malaise, night sweats, diaphoresis, change in sleep pattern, daytime sleepiness or snoring Eyes: Denies: change in vision, blurry vision, photophobia, eye discomfort or eye discharge ENMT: Denies: throat pain, enlarged tonsils, hoarseness, mouth pain, oral sores, dry mouth, tinnitus, nasal congestion or post nasal drip Card: Denies: chest pain, palpitations, irregular heart rhythm, edema, swelling of feet/ankles, lightheadedness, syncope, pre-syncope, dyspnea on exertion, orthopnea, leg pain with exertion or acrocyanosis Resp: Denies: dyspnea, productive cough, non-productive cough, wheezing, stridor, pain on inspiration, change in phlegm color, hemoptysis or chest congestion GI: Denies: abdominal pain, nausea, vomiting, hematemesis, coffee ground emesis, dysphagia, heartburn, diarrhea, constipation, bloating, GI cramping, change in bowel habits, pain on defecation, hematochezia or melena : Denies: flank pain, dysuria, urinary frequency, urinary urgency, urinary hesitancy, nocturia or hematuria Musc: Denies: neck pain, back pain, extremity pain, joint pain, joint swelling, joint redness, joint stiffness or limited range of motion Neuro: Denies: headache(s), numbness in extremities, weakness in extremities, sensory changes, lack of coordination, difficulty walking, frequent falls, dizziness, vertigo, confusion, Slurred speech present, difficulty communicating thoughts or seizure-like activity Psych: Denies: anxiety, depression, mood swings, panic attacks, hopelessness or irritability Endo: Denies: polyuria, polydipsia, tired all the time, cold intolerance, excessive sweating, flushing or heat intolerance Fahad/Lymph: Denies: easy bruising or easy bleeding All/Imm: Denies: tongue swelling, facial swelling or acute wheezing Medications/Allergies Home Medications ?Medication ?Instructions ?Recorded ?Confirmed ?Last Taken ?Type ondansetron 8 mg disintegrating 8 mg PO Q8H PRN Nausea And Vomiting 12/09/21 01/10/25 06/26/24 History tablet allopurinol 300 mg tablet 300 mg PO QAM 11/25/22 01/10/25 01/09/25 History promethazine 25 mg rectal 25 mg MI Q6H PRN nausea and 09/30/23 01/10/25 06/26/24 Rx suppository vomiting #12 ea hydromorphone 4 mg tablet 4 mg PO Q4H 05/14/24 01/10/25 01/10/25 History (Dilaudid) spironolactone 25 1 tab PO DAILY 05/14/24 01/10/25 01/09/25 History mg-hydrochlorothiazide 25 mg tablet telmisartan 80 mg tablet 40 mg PO DAILY 05/14/24 01/10/25 01/09/25 History tizanidine 4 mg tablet 8 mg PO QID 05/14/24 01/10/25 01/09/25 History lorazepam 2 mg tablet See Rx Instructions PO .COMPLEX 07/12/24 01/10/25 01/10/25 Rx #60 tabs prazosin 2 mg capsule 4 mg (2 x 2 mg) PO .qhs #60 caps 08/08/24 01/10/25 01/09/25 Rx lurasidone 120 mg tablet 120 mg PO DAILY #30 tabs 08/16/24 01/10/25 01/09/25 Rx hydralazine 50 mg tablet 50 mg PO TID PRN Anxiety 08/30/24 01/10/25 01/09/25 History lamotrigine 200 mg tablet 200 mg PO QAM #30 tabs 11/09/24 01/10/25 01/10/25 Rx prednisone 10 mg tablet 10 mg PO QDAY 30 days #30 tabs 11/15/24 01/10/25 01/09/25 Rx semaglutide 2 mg/dose (8 mg/3 mL) See Rx Instructions .Route 11/19/24 01/10/25 01/05/25 Rx subcutaneous pen injector (Ozempic) .COMPLEX #3 mL zolpidem 10 mg tablet 10 mg PO BEDTIME PRN Insomnia #30 12/17/24 01/10/25 01/09/25 Rx tabs levothyroxine 150 mcg tablet 150 mcg PO DAILY 01/10/25 01/10/25 01/10/25 History lithium carbonate 150 mg capsule 150 mg PO QAM #30 caps 01/10/25 Unknown Rx lithium carbonate 300 mg capsule 300 mg PO .qhs #30 caps 01/10/25 Unknown Rx Allergies Allergy/AdvReac Type Severity Reaction Status Date / Time midodrine Allergy Intermediate ALGY-Rash Verified 11/15/24 16:34 aspirin Allergy due to BUN Verified 11/15/24 16:34 levels coconut Allergy hives Verified 11/15/24 16:34 ketorolac (From Toradol) Allergy hives Verified 11/15/24 16:34 meloxicam (From Mobic) Allergy hives Verified 11/15/24 16:34 NSAIDS (Non-Steroidal Allergy Unknown Verified 11/15/24 16:34 Anti-Inflamma PFSH Acute PFSH: Medical History (Updated 01/10/25 @ 16:47 by Kervin Brar MD) Chronic pain with drug dependence Postsurgical hypothyroidism Goiter Hypertensive urgency Resistant hypertension GERD (gastroesophageal reflux disease) Nausea & vomiting CKD (chronic kidney disease) Hypothyroid Hypertensive urgency, malignant Pulmonary embolism Chest pain at rest Psychiatric care HLD (hyperlipidemia) DM2 (diabetes mellitus, type 2) Chronic back pain Chronic neck and back pain Post traumatic stress disorder (PTSD) Bipolar 1 disorder, depressed, full remission Hypertensive emergency Palpitation Malignant hypertension Chronic renal disease Generalized anxiety disorder Surgical History (Updated 09/19/24 @ 11:34 by LEEROY Johnson) History of back surgery H/O esophagogastroduodenoscopy (08/12/20) H/O angioplasty History of colonoscopy with polypectomy (08/12/20) History of spinal fusion 10/01/2013- C5-6, ACDFF Dr. Villanueva H/O rectal polypectomy Status post hemilaminotomy 01/06/2012, right L5-S1, disectomy and foraminotomy per Dr. Villanueva History of suburethral sling procedure anterior colporrhapy augmentd with porcine graft, cystoscopy performed on 03/08/[address] Haley History of total hysterectomy 2000 Hx of cholecystectomy History of appendectomy History of bilateral oophorectomy 2011 H/O total thyroidectomy Family History Mother Diabetes Pancreatic cancer Ovarian cancer Father Diabetes Hypertension Stroke COPD (chronic obstructive pulmonary disease) Grandfather Hypertension maternal Heart disease maternal Grandmother Colon cancer maternal Social History Smoking and tobacco/nicotine status: unknown if used tobacco/nicotine Second hand smoke exposure: Yes Alcohol intake: never Substance/Drug Use: never Additional social history: well balanced diet Caregiver/support person: No Lives independently: Yes Household members: spouse Housing: House Marital status: Number of children: 8 Highest education level completed: GED or Equivalent service: No Current occupational status: unemployed Vitals/I&O/Wt Last Vital Signs Temp 97.6 F 01/10/25 11:06 Pulse 75 01/10/25 15:00 Resp 18 01/10/25 13:45 BP 114/85 01/10/25 15:00 Pulse Ox 95 01/10/25 15:00 O2 Del Method Room Air 01/10/25 15:00 01/10/25 01/10/25 01/10/25 06:59 14:59 22:59 Intake Total 1000 / 1000 Balance 1000 / 1000 Weight last 48 hrs Weight 90.718 kg Physical Exam Narrative: General: No acute distress, AO x3 HEENT: PERRLA, pupils bilaterally equal and reactive Chest: Normal vesicular breath sounds, no added sounds, equal good air entry bilaterally CVS: S1-S2 regular, no murmurs, no tachycardia, no gallops, no rubs Abdomen: Soft, nontender, no organomegaly, bowel sounds present Neuro: No focal deficits, no facial deformity, AO x3, power 5/5 in all limbs Data 01/10/25 11:20 01/10/25 11:20 A&P Assessment and plan (1) Syncope: Due to hypotension. Patient has history of labile hypertension. States takes antihypertensive only as needed and mostly once or twice a month. Does have hypotension once or twice a week. Check orthostatics. Fall precautions. (2) Hypotension: Most likely in setting of retinal insufficiency. Continue with hydrocortisone 10 mg daily for now. Add fludrocortisone 0.2 mg daily. If blood pressures get elevated will start on daily antihypertensive rather than as needed. (3) Labile hypertension: Takes meds if her blood pressures are more than 120 mmHg to take half her dose of telmisartan, if remain more than 160 mmHg to take hydralazine 25 mg 3 times a day as needed and if they continue to trend up then she can take her home dose of spironolactone. Hold anti hypertensive for now. (4) Postsurgical hypothyroidism: TSH found to be more than 90. Check free T3 and free T4. Continue with home dose of levothyroxine. Will confirm with outpatient delivery driver regarding further management. (5) Adrenal insufficiency: As above. (6) Chronic pain with drug dependence: Plan Full code Regular diet Protonix for PUD prophylaxis Lovenox for DVT prophylaxis. PDMP PDMP Reviewed: Not Reviewed Attestations Medical Necessity Statement*: Admit under observation for management of syncope in setting of hypotension in patient with history of labile blood pressures, severe hypothyroidism Diagnoses Syncope R55 Hypotension due to drugs I95.2 Hypotension type: hypotension due to drug Labile hypertension R09.89 Postsurgical hypothyroidism E89.0 Adrenal insufficiency E27.40 Chronic pain with drug dependence G89.29; F19.20
[2025-01-10] MEDS: enoxaparin 40 mg/0.4 mL Syringe SUBCUT (15:46)
[2025-01-10 15:47] LABS: Amphetamines Screen Urine Negative (Negative); Barbiturates Screen Urine Negative (Negative); Benzodiazepines Screen Urine Positive (Negative); Cocaine Screen Urine Negative (Negative); Opiate Screen Urine Positive (Negative); PCP Screen Urine Negative (Negative); THC Screen Urine Negative (Negative)
[2025-01-10] MEDS: tizanidine 4 mg Tablet 8 MG PO ×2 (15:47→20:01)
[2025-01-10] MEDS: sodium chloride 0.9% 1,000 ML 100 ML IV (15:48)
[2025-01-10 16:48] LABS: Lactic Sepsis W/Reflex 0.7 mmol/L (0.5-2.2)
[2025-01-10 19:09] LABS: Procalcitonin 0.07 ng/mL (0-0.5)
[2025-01-10] MEDS: lithium carbonate 300 mg Capsule PO (20:01)
[2025-01-10] MEDS: LORazepam 2 mg Tablet PO (20:01)
[2025-01-10] MEDS: fludrocortisone 0.1 mg Tablet 0.2 MG PO (20:07)
[2025-01-10 22:12] LABS: Free T4 Free Thyroxine 2.05 ng/dL (0.82-1.77); T3 Free 2.4 PG/ML (2.0-4.4)
[2025-01-11] VITALS (13 sets, daily range): BP systolic 65–144; BP diastolic 52–95; PULSE 61–82; RESP 9–16; TEMP 36.4–36.9; O2SAT 94–100
[2025-01-11] MEDS: sodium chloride 0.9% 1,000 ML 1000 ML IV (00:49)
[2025-01-11] MEDS: sodium chloride 0.9% 1,000 ML 100 ML IV (02:01)
[2025-01-11] MEDS: acetaminophen 325 mg Tablet 650 MG PO (02:09)
[2025-01-11 03:32] LABS: Glucose Point of Care 96 mg/dL (70-110)
--- NOTE | 2025-01-11 05:43 | PC.NURSE ---
patient blood pressure was soft 80/60 Dr Singh was notified and 1000 ns bolus ordered.
[2025-01-11] MEDS: LORazepam 2 mg Tablet 1 MG PO (06:25)
[2025-01-11] MEDS: lamoTRIgine 100 mg Tablet 200 MG PO (06:27)
[2025-01-11 06:36] LABS: Glucose Point of Care 91 mg/dL (70-110)
[2025-01-11 08:29] LABS: Basophils # 0.1 10^3/uL (0.0-0.1); Basophils % 1.1 %; Eosinophils # 0.4 10^3/uL (0.0-0.8); Eosinophils % 9.9 %; Lymphocytes % 45.3 %; Mean Corpuscular HGB Conc 29.5 g/dL (30-55); Mean Corpuscular Hemoglobin 28.4 pg (27-33); Mean Corpuscular Volume 96.2 fl (85-98); Mean Platelet Volume 12.9 fL (7.4-10.4); Monocytes # 0.3 10^3/uL (0.2-0.9); Monocytes % 6.8 %; Neutrophils # 1.63 10^3/uL (1.8-7.7); Neutrophils % 36.7 %; Nucleated Red Blood Cells % 0 %; Platelet Count 134 10^3/cmm (157-399); Red Blood Count 4.16 10^6/uL (3.85-5.65); Red Cell Distribution Width 13.2 % (12.1-15.1); White Blood Count 4.44 10^3/uL (3.29-11.43)
[2025-01-11 08:49] LABS: Alanine Aminotransferase 13 U/L (0-33); Alkaline Phosphatase 36 U/L (35-105); Anion Gap 14.9 (5-19); Aspartate Amino Transferase 17 U/L (0-32); Blood Urea Nitrogen 7 mg/dL (6-20); Calcium 8.7 mg/dL (8.5-10.5); Carbon Dioxide 23 mmol/L (22-29); Chloride 110 mmol/L (98-107); Creatinine Clr Calc Pharmacy 56.1602; Globulin 2.5 g/dL (1.3-4.6); Glomerular Filtration Rate 40.5 mL/min (90-130); Glucose 80 mg/dL (65-115); Osmolality Calculated 295 mOsm/kg (285-295); Potassium 3.9 mmol/L (3.5-5.1); Sodium 144 mmol/L (136-145); Total Bilirubin 0.2 mg/dL (0.15-1.2); Total Protein 6.5 g/dL (6.6-8.7)
[2025-01-11 08:54] LABS: Procalcitonin 0.08 ng/mL (0-0.5)
[2025-01-11] MEDS: lithium carbonate 150 mg Capsule PO (09:05)
[2025-01-11] MEDS: lurasidone 80 mg Tablet 120 MG PO (09:06)
[2025-01-11] MEDS: fludrocortisone 0.1 mg Tablet 0.2 MG PO (09:06)
[2025-01-11] MEDS: pantoprazole DR 40 mg Tablet PO (09:07)
[2025-01-11] MEDS: levothyroxine 150 mcg Tablet PO (09:07)
[2025-01-11] MEDS: docusate sodium 100 mg Capsule PO (09:07)
[2025-01-11] MEDS: predniSONE 10 mg Tablet PO (09:07)
[2025-01-11] MEDS: tizanidine 4 mg Tablet 8 MG PO ×4 (09:08→21:13)
[2025-01-11 11:13] LABS: Glucose Point of Care 97 mg/dL (70-110)
--- NOTE | 2025-01-11 13:54 | P.PN_ITS ---
Subjective 2 Subjective: No acute events overnight. Patient has remained hemodynamically stable. Did have an episode of hypotension with blood pressures dropping down to 88 systolic blood pressure is asymptomatic. Patient was given 1 L IV fluid bolus. Today morning states feeling better. States blood pressures are higher today. Vitals/I&O/Wt Last Vital Signs Temp 97.8 F 01/11/25 12:00 Pulse 82 01/11/25 12:00 Resp 12 01/11/25 12:00 BP 144/95 01/11/25 12:00 Pulse Ox 96 01/11/25 12:00 O2 Del Method Room Air 01/11/25 12:00 01/10/25 01/11/25 01/11/25 22:59 06:59 14:59 Intake Total 860 / 1860 2100 / 3960 340 / 340 Balance 860 / 1860 2100 / 3960 340 / 340 Weight last 48 hrs Weight 91.626 kg Weight 95.753 kg Weight 92.278 kg Weight 90.718 kg Physical Exam 2 Narrative: General: No acute distress, AO x3 HEENT: PERRLA, pupils bilaterally equal and reactive Chest: Normal vesicular breath sounds, no added sounds, equal good air entry bilaterally CVS: S1-S2 regular, no murmurs, no tachycardia, no gallops, no rubs Abdomen: Soft, nontender, no organomegaly, bowel sounds present Neuro: No focal deficits, no facial deformity, AO x3, power 5/5 in all limbs Data 01/11/25 08:06 01/11/25 08:06 A&P Assessment and plan (1) Syncope: Due to hypotension. Patient has history of labile hypertension. States takes antihypertensive only as needed and mostly once or twice a month. Does have hypotension once or twice a week. Recheck orthostatics. Fall precautions. DC IV fluids. (2) Hypotension: Most likely in setting of retinal insufficiency. Continue with hydrocortisone 10 mg daily for now. Continue with fludrocortisone 0.2 mg daily. If blood pressures get elevated will start on daily antihypertensive rather than as needed. Continue to monitor. Goal blood pressure less than 140/90 mmHg with mean over 65. (3) Labile hypertension: Takes meds if her blood pressures are more than 120 mmHg to take half her dose of telmisartan, if remain more than 160 mmHg to take hydralazine 25 mg 3 times a day as needed and if they continue to trend up then she can take her home dose of spironolactone. Hold anti hypertensive for now. (4) Postsurgical hypothyroidism: TSH found to be more than 90. Appreciate free T3 and free T4. Continue with home dose of levothyroxine. Discussed in detail with outpatient front office medical assistant. Concern for compliance. Most likely will transition to once weekly levothyroxine as an outpatient. (5) Adrenal insufficiency: As above. (6) Chronic pain with drug dependence: Plan Full code Regular diet Protonix for PUD prophylaxis Lovenox for DVT prophylaxis. PDMP PDMP Reviewed: Not Reviewed Attestations 2 Medical Necessity Statement*: Requires further hospitalization for management of severe hypotension leading to syncope in a patient with history of labile blood pressure. Diagnoses Syncope R55 Hypotension due to drugs I95.2 Hypotension type: hypotension due to drug Labile hypertension R09.89 Postsurgical hypothyroidism E89.0 Adrenal insufficiency E27.40 Chronic pain with drug dependence G89.29; F19.20
[2025-01-11 16:53] LABS: Glucose Point of Care 154 mg/dL (70-110)
[2025-01-11] MEDS: enoxaparin 40 mg/0.4 mL Syringe SUBCUT (17:58)
[2025-01-11 20:26] LABS: Glucose Point of Care 109 mg/dL (70-110)
[2025-01-11] MEDS: lithium carbonate 300 mg Capsule PO (21:13)
[2025-01-11] MEDS: LORazepam 2 mg Tablet PO (21:13)
[2025-01-12] VITALS: BP 139/99; PULSE 61; RESP 14; TEMP 36.6; O2SAT 98
[2025-01-12 00:25] VITALS: RESP 12; O2SAT 97
[2025-01-12 03:58] LABS: Basophils # 0.1 10^3/uL (0.0-0.1); Basophils % 0.9 %; Eosinophils # 0.2 10^3/uL (0.0-0.8); Eosinophils % 3.3 %; Lymphocytes # 1.6 10^3/uL (0.8-4.8); Lymphocytes % 29.1 %; Mean Corpuscular HGB Conc 30.5 g/dL (30-55); Mean Corpuscular Hemoglobin 28.6 pg (27-33); Mean Corpuscular Volume 93.8 fl (85-98); Mean Platelet Volume 12.9 fL (7.4-10.4); Monocytes # 0.3 10^3/uL (0.2-0.9); Monocytes % 6.3 %; Neutrophils # 3.23 10^3/uL (1.8-7.7); Neutrophils % 59.8 %; Nucleated Red Blood Cells % 0 %; Platelet Count 141 10^3/cmm (157-399); Red Blood Count 4.05 10^6/uL (3.85-5.65); Red Cell Distribution Width 13.1 % (12.1-15.1)
[2025-01-12 04:24] LABS: Alanine Aminotransferase 28 U/L (0-33); Albumin Level 3.9 g/dL (3.5-5.2); Alkaline Phosphatase 39 U/L (35-105); Anion Gap 11.2 (5-19); Aspartate Amino Transferase 28 U/L (0-32); Blood Urea Nitrogen 7 mg/dL (6-20); Carbon Dioxide 25 mmol/L (22-29); Chloride 108 mmol/L (98-107); Creatinine Clr Calc Pharmacy 65.5202; Globulin 2.4 g/dL (1.3-4.6); Glomerular Filtration Rate 48.4 mL/min (90-130); Glucose 112 mg/dL (65-115); Magnesium 2.1 mg/dL (1.7-2.3); Osmolality Calculated 289 mOsm/kg (285-295); Phosphorus 2.3 mg/dL (2.5-4.5); Potassium 4.2 mmol/L (3.5-5.1); Sodium 140 mmol/L (136-145); Total Bilirubin 0.3 mg/dL (0.15-1.2); Total Protein 6.3 g/dL (6.6-8.7)
[2025-01-12 05:31] VITALS: BP 121/81; PULSE 67; RESP 13; TEMP 36.9; O2SAT 96
[2025-01-12 06:00] VITALS: BMI 35.8
[2025-01-12] MEDS: lithium carbonate 150 mg Capsule PO (06:07)
[2025-01-12] MEDS: lamoTRIgine 100 mg Tablet 200 MG PO (06:07)
[2025-01-12] MEDS: LORazepam 2 mg Tablet 1 MG PO (06:07)
[2025-01-12 06:08] VITALS: RESP 12; O2SAT 98
[2025-01-12 06:15] LABS: Glucose Point of Care 112 mg/dL (70-110)
[2025-01-12 07:39] VITALS: BP 102/67; BP 108/74; BP 97/72; PULSE 69; PULSE 80; PULSE 83
[2025-01-12 07:50] VITALS: BP 102/67; PULSE 69; RESP 14; TEMP 36.6; O2SAT 100
--- NOTE | 2025-01-12 08:02 | P.DS_ITS ---
Discharge Providers Date of Admission: 01/10/25 15:00 Date of Discharge: January 12, 2025 Attending Provider at Admission: Kervin Brar MD Attending Provider at Discharge: Kervin Brar MD Primary Care Provider: Michelle Rico Diagnoses at Discharge Discharge Diagnosis (1) Syncope: Status: Acute (2) Hypotension: Status: Acute Qualifiers: Hypotension type: hypotension due to drug Qualified Code(s): I95.2 - Hypotension due to drugs (3) Labile hypertension: Status: Acute (4) Postsurgical hypothyroidism: Status: Acute (5) Adrenal insufficiency: Status: Acute Permanent problem details: Cortisol level at 4 AM 2.89 on 06/12/2024 (6) Chronic pain with drug dependence: Status: Acute Reason for Visit Reason for Visit: Rapid Resp. Brief History: Nina Garcia is a 44 year old female with past medical history of labile hypertension, uncontrolled hypertension in past, type 2 diabetes mellitus, CKD, labile hypothyroidism, hyperlipidemia, adrenal insufficiency on hydrocortisone, goitre, post surgical hypothyroidism, on chronic pain medications was sent into the ER as a rapid response from endocrinology office where she had an episode of syncope. Patient was brought to the ER for systolic blood pressure of 64 mmHg. Patient had passed out in the office hence rapid response was called. Patient received Vitro fluid bolus after which her blood pressures improved. On examination she is sitting comfortably in bed with a systolic blood pressure of 115 mmHg. Patient denies any nausea vomiting, headache, dizziness, recent changes in medication, recent difficulty breathing, runny nose. She states she takes antihypertensive only as needed and probably once or twice a month. She has soft blood pressures down to 80 systolics once or twice a week. She states while sitting in endocrine office today she had dizziness, lightheadedness and passed out. She does not remember being brought to the ER. Hospital Course Hospital Course Patient was admitted to the hospital for evaluation and management of syncope in setting of hypotension. She was given IV fluid bolus in the ER after which her blood pressures improved. Given her history of adrenal insufficiency she was started on fludrocortisone. Orthostatic blood pressures were negative. For her significant severe hypothyroidism care were discussed in detail with outpatient dining room busser who advised to continue oral levothyroxine for now and transition to weekly IM levothyroxine as an outpatient. She has been discharged in medically stable condition with advised to continue taking her prednisone as before, fludrocortisone 0.2 mg daily has been added to her medication list. She is to continue taking her antihypertensive as per directions from before. Antihypertensive directions were discussed in detail with the patient. Physical Exam Narrative: General: No acute distress, AO x3 HEENT: PERRLA, pupils bilaterally equal and reactive Chest: Normal vesicular breath sounds, no added sounds, equal good air entry bilaterally CVS: S1-S2 regular, no murmurs, no tachycardia, no gallops, no rubs Abdomen: Soft, nontender, no organomegaly, bowel sounds present Neuro: No focal deficits, no facial deformity, AO x3, power 5/5 in all limbs Discharge Data Studies Completed and Pending Pending at discharge Category Date Time Status Complete Blood Count w/Auto AM LABS Lab 01/13/25 04:00 Ordered Comprehensive Metabolic Panel AM LABS Lab 01/13/25 04:00 Ordered Magnesium AM LABS Lab 01/13/25 04:00 Ordered Phosphorus AM LABS Lab 01/13/25 04:00 Ordered Laboratory Results WBC 5.40 10^3/uL (3.29-11.43) 01/12/25 03:30 RBC 4.05 10^6/uL (3.85-5.65) 01/12/25 03:30 Hgb 11.60 g/dL (11.27-16.99) 01/12/25 03:30 Hct 38.0 % (36-47) 01/12/25 03:30 MCV 93.8 fl (85-98) 01/12/25 03:30 MCH 28.6 pg (27-33) 01/12/25 03:30 MCHC 30.5 g/dL (30-55) 01/12/25 03:30 RDW 13.1 % (12.1-15.1) 01/12/25 03:30 Plt Count 141 10^3/cmm (157-399) L 01/12/25 03:30 MPV 12.9 fL (7.4-10.4) H 01/12/25 03:30 Neut % (Auto) 59.8 % 01/12/25 03:30 Lymph % (Auto) 29.1 % 01/12/25 03:30 [place] % (Auto) 6.3 % 01/12/25 03:30 Eos % (Auto) 3.3 % 01/12/25 03:30 Baso % (Auto) 0.9 % 01/12/25 03:30 Neut # (Auto) 3.23 10^3/uL (1.8-7.7) 01/12/25 03:30 Lymph # (Auto) 1.6 10^3/uL (0.8-4.8) 01/12/25 03:30 [place] # (Auto) 0.3 10^3/uL (0.2-0.9) 01/12/25 03:30 Eos # (Auto) 0.2 10^3/uL (0.0-0.8) 01/12/25 03:30 Baso # (Auto) 0.1 10^3/uL (0.0-0.1) 01/12/25 03:30 Nucleated RBC % (auto) 0 % 01/12/25 03:30 Nucleated RBCs # 0.0 /100WBC 01/12/25 03:30 Sodium 140 mmol/L (136-145) 01/12/25 03:30 Potassium 4.2 mmol/L (3.5-5.1) 01/12/25 03:30 Chloride 108 mmol/L (98-107) H 01/12/25 03:30 Carbon Dioxide 25 mmol/L (22-29) 01/12/25 03:30 Anion Gap 11.2 (5-19) 01/12/25 03:30 BUN 7 mg/dL (6-20) 01/12/25 03:30 Creatinine 1.2 mg/dL (0.5-0.9) H 01/12/25 03:30 GFR Calculation 48.4 mL/min (90-130) L 01/12/25 03:30 Glucose 112 mg/dL (65-115) 01/12/25 03:30 POC Glucose 112 mg/dL (70-110) H 01/12/25 06:09 Calculated Osmolality 289 mOsm/kg (285-295) 01/12/25 03:30 Lactic Acid 0.7 mmol/L (0.5-2.2) 01/10/25 16:03 Calcium 9.0 mg/dL (8.5-10.5) 01/12/25 03:30 Phosphorus 2.3 mg/dL (2.5-4.5) L 01/12/25 03:30 Magnesium 2.1 mg/dL (1.7-2.3) 01/12/25 03:30 Total Bilirubin 0.3 mg/dL (0.15-1.2) 01/12/25 03:30 AST 28 U/L (0-32) 01/12/25 03:30 ALT 28 U/L (0-33) 01/12/25 03:30 Alkaline Phosphatase 39 U/L (35-105) 01/12/25 03:30 NT-Pro-B Natriuret Pep 124 pg/mL (0-125) 01/10/25 11:20 Total Protein 6.3 g/dL (6.6-8.7) L 01/12/25 03:30 Albumin 3.9 g/dL (3.5-5.2) 01/12/25 03:30 Globulin 2.4 g/dL (1.3-4.6) 01/12/25 03:30 Procalcitonin 0.08 ng/mL (0-0.5) 01/11/25 08:06 TSH 93.08 uIU/mL (0.27-4.20) H 01/10/25 11:20 Free T4 2.05 ng/dL (0.82-1.77) H 01/10/25 16:03 Free T3 2.4 PG/ML (2.0-4.4) 01/10/25 16:03 Urine Color Yellow (Yellow) 01/10/25 13:38 Urine Appearance Clear (CLEAR) 01/10/25 13:38 Urine pH 6.5 (5-7) 01/10/25 13:38 Ur Specific [place] 1.008 (1.005-1.030) 01/10/25 13:38 Urine Protein Negative (Negative) 01/10/25 13:38 Urine Glucose (UA) Negative (Normal) 01/10/25 13:38 Urine Ketones Negative (Negative) 01/10/25 13:38 Urine Blood Negative (Negative) 01/10/25 13:38 Urine Nitrate Negative (Negative) 01/10/25 13:38 Urine Bilirubin Negative (Negative) 01/10/25 13:38 Urine Urobilinogen 1.0 mg/dL (Negative) 01/10/25 13:38 Ur Leukocyte Esterase Negative (Negative) 01/10/25 13:38 Urine RBC 0-2 /hpf (0-2) 01/10/25 13:38 Urine WBC 0-5 /hpf (0-5) 01/10/25 13:38 Ur Squamous Epith Cells 0-5 /hpf (0-5) 01/10/25 13:38 Amorphous Sediment Not Reportable 01/10/25 13:38 Urine Bacteria Trace /hpf (NONE) 01/10/25 13:38 Hyaline Casts 0.81 /lpf 01/10/25 13:38 Urine Opiates Screen Positive ng/mL (Negative) H 01/10/25 13:38 Ur Barbiturates Screen Negative ng/mL (Negative) 01/10/25 13:38 Ur Phencyclidine Scrn Negative ng/mL (Negative) 01/10/25 13:38 Ur Amphetamines Screen Negative ng/mL (Negative) 01/10/25 13:38 U Benzodiazepines Scrn Positive ng/mL (Negative) H 01/10/25 13:38 Caroleen 1.0 mmol/L (0.6-1.2) 01/10/25 11:20 Urine Cocaine Screen Negative ng/mL (Negative) 01/10/25 13:38 U Marijuana (THC) Screen Negative ng/mL (Negative) 01/10/25 13:38 Vitals Last Vital Signs Temp 97.9 F 01/12/25 07:50 Pulse 69 01/12/25 07:50 Resp 14 01/12/25 07:50 BP 102/67 01/12/25 07:50 Pulse Ox 100 01/12/25 07:50 O2 Del Method Room Air 01/12/25 07:50 Discharge Plan Discharge Patient Disposition: Home Condition: Stable Prescriptions: New fludrocortisone 0.1 mg Tablet 0.2 mg PO DAILY 30 Days Qty: 60 0RF Continued tizanidine 4 mg tablet 8 mg PO QID spironolacton-hydrochlorothiaz 25-25 mg tablet 1 tab PO DAILY hydromorphone [Dilaudid] 4 mg tablet 4 mg PO Q4H telmisartan 80 mg tablet 40 mg PO DAILY prazosin 2 mg capsule 4 mg PO .qhs Qty: 60 11RF hydralazine 50 mg tablet 50 mg PO TID PRN (Reason: Anxiety) lamotrigine 200 mg tablet 200 mg PO QAM Qty: 30 11RF allopurinol 300 mg tablet 300 mg PO QAM lorazepam 2 mg tablet See Rx Instructions PO .COMPLEX Qty: 60 5RF Rx Instructions: Take one half tab (1mg) by mouth in AM and at noon, then take one tab (2mg) at bedtime lurasidone 120 mg tablet 120 mg PO DAILY Qty: 30 11RF Rx Instructions: must administer with food (at least 350 calories) prednisone 10 mg tablet 10 mg PO QDAY 30 Days Qty: 30 2RF Ozempic 2 mg/dose (8 mg/3 mL) pen injector See Rx Instructions .ROUTE .COMPLEX Qty: 3 1RF Dose Instruction: INJECT 2MG (0.75ML) SUB-Q ONCE WEEKLY(ON SATURDAYS) Rx Instructions: INJECT 2MG (0.75ML) SUB-Q ONCE WEEKLY(ON SATURDAYS) zolpidem 10 mg tablet 10 mg PO BEDTIME PRN (Reason: Insomnia) Qty: 30 5RF lithium carbonate 150 mg capsule 150 mg PO QAM Qty: 30 11RF lithium carbonate 300 mg capsule 300 mg PO .qhs Qty: 30 11RF levothyroxine 150 mcg tablet 150 mcg PO DAILY Rx Instructions: Take 1 tablet by mouth once daily ondansetron 8 mg tablet,disintegrating 8 mg PO Q8H PRN (Reason: Nausea And Vomiting) promethazine 25 mg suppository 25 mg NM Q6H PRN (Reason: nausea and vomiting) Qty: 12 0RF Discharge Orders: Discharge Order (Routine); Ordered 01/12/25 Ordered By: Kervin Brar Referrals: Michelle Rico FNP [Primary Care Provider, Nurse Practitioner] - 7-10 days Referral Note: Patient will need to call office on Tuesday to schedule follow up appointment. Discharge Diet: Cardiac Discharge Activity: Resume usual activity and Increase activity as tolerated Patient Instructions: Fludrocortisone Acetate (By mouth), Secondary Adrenal Insufficiency (DC), Opioid Safety Activity Restrictions/Additional Instructions: Check your blood pressure daily and manitain diary. Goal BP between 100- 140 mmhg. If blood pressures are more than 140 mmHg to take half her dose of telmisartan, if remain more than 160 mmHg to take hydralazine 25 mg 3 times a day as needed and if they continue to trend up then she can take her home dose of spironolactone. Take Fludrocortisone 0.2 mg daily Follow up with endocrinology office in 1 week. Discharge Attestations Time Spent in Discharge Care*: greater than 30 min Specific Discharge Activities: educating patient, educating and/or supporting family/caregiver, discussing with pcp/other providers, discussing with case work aide/social workers/dc planners, documenting/other paperwork and evaluating patient/reviewing data Status at Discharge: Cognitive status at discharge: cognitively intact , Behavioral status at discharge: cooperative , Functional status at discharge: independent ambulation , Overall status at discharge: patient is back to baseline Quality Metrics Clinical Quality Measures [ No reported AMI, CVA or VTE this stay] Coding Level of Care Code 71018 Total time (in minutes) for Discharge: 65 Diagnoses Syncope R55 Hypotension due to drugs I95.2 Hypotension type: hypotension due to drug Labile hypertension R09.89 Postsurgical hypothyroidism E89.0 Adrenal insufficiency E27.40 Chronic pain with drug dependence G89.29; F19.20
== END 2025-01-12 09:15 | disposition home or self-care (01) ==
LOC: ER 14:54 → CSU 15:00
PROVIDERS: Admitting Provider Student in an Organized Health Care Education/Training Program; Emergency Provider Emergency Medicine; PCP Nurse Practitioner Family; Visit Provider Student in an Organized Health Care Education/Training Program
DX: R55 Syncope and collapse (principal); I95.2 Hypotension due to drugs; R09.89 Other specified symptoms and signs involving the circulatory and respiratory systems; E89.0 Postprocedural hypothyroidism; E27.40 Unspecified adrenocortical insufficiency; G89.29 Other chronic pain; F19.20 Other psychoactive substance dependence, uncomplicated; E11.22 Type 2 diabetes mellitus with diabetic chronic kidney disease; I12.9 Hypertensive chronic kidney disease with stage 1 through stage 4 chronic kidney disease, or unspecified chronic kidney disease; N18.9 Chronic kidney disease, unspecified; E78.5 Hyperlipidemia, unspecified; K21.9 Gastro-esophageal reflux disease without esophagitis; I26.99 Other pulmonary embolism without acute cor pulmonale; F43.10 Post-traumatic stress disorder, unspecified; F41.9 Anxiety disorder, unspecified; Z83.3 Family history of diabetes mellitus; Z82.49 Family history of ischemic heart disease and other diseases of the circulatory system
CPT/HCPCS: 36415; 36416; 80053; 80178; 80306; 81001; 82962; 83605; 83735; 83880; 84100; 84145; 84439; 84443; 84481; 85025; 93005; 94664; 96372; 96374; 99285; A9270; G0378; J1650; J7030; J7512; J9999

== ENCOUNTER 2025-02-15 08:30 | Outpatient (CLI) | payer OTHER, SELFPAY ==
[2025-02-15 09:10] LABS: Bilirubin Urine Negative (Negative); Blood Urine Negative (Negative); Glucose Urine UA Negative (Normal); Ketones Urine Negative (Negative); Leukocyte Esterase Urine Negative (Negative); Nitrate Urine Negative (Negative); Protein Urine Negative (Negative); Specific Gravity, Urine 1.015 (1.005-1.030); Urine Appearance Clear (CLEAR); Urine Color Yellow (Yellow)
[2025-02-15 09:15] LABS: Bacteria Urine Trace /hpf; RBC Urine 0-2 /hpf (0-2); WBC Urine 0-5 /hpf (0-5)
[2025-02-15 09:21] LABS: Add Urine Culture? No
[2025-02-15 09:22] LABS: Blood Urea Nitrogen 19 mg/dL (6-20); Calcium 9.2 mg/dL (8.5-10.5); Carbon Dioxide 27 mmol/L (22-29); Chloride 100 mmol/L (98-107); Glomerular Filtration Rate 43.9 mL/min (90-130); Glucose 151 mg/dL (65-115); Osmolality Calculated 289 mOsm/kg (285-295); Sodium 137 mmol/L (136-145)
[2025-02-15 09:26] LABS: Phosphorus 3.8 mg/dL (2.5-4.5); Uric Acid 5.6 mg/dL (2.4-5.7)
[2025-02-15 09:28] LABS: Free T4 Free Thyroxine 0.55 ng/dL (0.82-1.77)
[2025-02-15 09:30] LABS: Creatinine Urine, Random 89 mg/dL (28-217); Microalbum Creatinine Ratio Ur 11 mg/dL (0-20); Microalbumin Random Urine 1 ug/dL (0-20)
[2025-02-15 09:37] LABS: Calcium 8.9 mg/dL (8.5-10.5)
--- NOTE | 2025-02-15 12:51 | XR_ITS ---
WS: [id number] Right hip, 2 views, AP pelvis, 02/15/2025 Clinical Data: R HIP PAIN Comparison: Right hip, 03/12/2024. Findings: No fractures or dislocations are seen. The right hip shows no erosion, sclerosis, narrowing, cyst formation or fragmentation of the right femoral head. The left hip is normal. The soft tissues are not remarkable. The adjacent pelvis is normal. XR/XR hip RT 2-3V wo/w pel* [id number] Impression: Negative pelvis and right hip.
== END 2025-02-15 08:31 | disposition home or self-care (01) ==
PROVIDERS: Absent Provider Internal Medicine; PCP Nurse Practitioner Family; Visit Provider Internal Medicine
DX: M25.551 Pain in right hip (principal); R55 Syncope and collapse; R79.89 Other specified abnormal findings of blood chemistry; I95.2 Hypotension due to drugs; R10.9 Unspecified abdominal pain; E03.9 Hypothyroidism, unspecified; E78.5 Hyperlipidemia, unspecified; E11.9 Type 2 diabetes mellitus without complications
CPT/HCPCS: 36415; 73502; 80048; 81001; 82044; 82310; 83735; 83970; 84100; 84439; 84550

== ENCOUNTER 2025-02-16 17:50 | Inpatient (IN) | payer OTHER, SELFPAY ==
[2025-02-16] VITALS (20 sets, daily range): BP systolic 156–213; BP diastolic 92–142; PULSE 91–150; RESP 12–21; TEMP 36.7; O2SAT 94–100; BMI 33.3; BMI 34.0
--- NOTE | 2025-02-16 17:53 | XRR_ITS ---
PROCEDURE INFORMATION: Exam: XR Chest Exam date and time: 02/16/2025 6:28 PM Age: 45 years old Clinical indication: Dyspnea; Prior surgery; Surgery date: 6+ months; Surgery type: Angioplasty; Additional info: Dyspnea/cough TECHNIQUE: Imaging protocol: Radiologic exam of the chest. Views: 1 view. COMPARISON: CR XR chest 1V portable [id number] 02/26/2025 17:09 FINDINGS: Lungs: Monitoring leads overlie the chest. Overlying soft tissues are prominent and do slightly challenged resolution along the lower chest area due to diminished penetration. Lungs are grossly clear with no infiltrates. No consolidation. Pleural spaces: Costophrenic angles are fairly well demarcated. No pleural effusion. No pneumothorax. Heart/Mediastinum: Unremarkable. No cardiomegaly. Bones/joints: Plate and screws are observed over the mid cervical region at the edge of the [id number]. XR/XR chest 1V portable [id number] IMPRESSION: No acute portable chest plain film findings.
--- NOTE | 2025-02-16 17:53 | CTR_ITS ---
PROCEDURE INFORMATION: Exam: CT Head Without Contrast Exam date and time: 02/16/2025 6:11 PM Age: 45 years old Clinical indication: Syncope and collapse; EMS arrival for syncopal episode; Additional info: AMS TECHNIQUE: Imaging protocol: Computed tomography of the head without contrast. Radiation optimization: All CT scans at this facility use at least one of these dose optimization techniques: automated exposure control; mA and/or kV adjustment per patient size (includes targeted exams where dose is matched to clinical indication); or iterative reconstruction. COMPARISON: CT head wo con* [id number] 09/30/2023 09:21 RADIATION DOSE METRICS: Total DLP (mGy-cm): 1047.74 FINDINGS: Brain: Parenchymal structures of the brain demonstrate normal anatomy and attenuation. The midline is intact. The midline is intact. Beam hardening artifact obscures resolution through the posterior fossa structures. No hemorrhage. Unremarkable white matter. No mass effect. Cerebral ventricles: Ventricles demonstrate normal size shape and configuration and are felt to be in proportion to the degree of widening of the sulci, sylvian fissures and basilar cisterns. Paranasal sinuses: Visualized sinuses are unremarkable. No fluid levels. Mastoid air cells: Visualized mastoid air cells are well aerated. Bones: Unremarkable. No acute fracture. Soft tissues: Unremarkable. CT/CT head wo con* [id number] IMPRESSION: No acute intracranial head CT findings identified.
--- NOTE | 2025-02-16 17:59 | ECG_ITS ---
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 Measurements Intervals [place] Rate: 137 P: 63 ND: 144 QRS: 100 QRSD: 81 T: 30 QT: 287 QTc: 434 Interpretive Statements SINUS TACHYCARDIA BORDERLINE RIGHT AXIS DEVIATION [QRS AXIS > 90] LOW QRS VOLTAGE IN PRECORDIAL LEADS [QRS DEFLECTION < 1.0 mV IN CHEST LEADS] MODERATE ST DEPRESSION [0.05+ mV ST DEPRESSION] Compared to ECG 01/10/2025 11:11:15 Low QRS voltage now present ST (T wave) deviation now present Sinus bradycardia no longer present Electronically Signed On 02-17-2025 19:21:49 CDT by Amber Colindres M.D. [id number] [id number]
--- NOTE | 2025-02-16 17:59 | PC.NURSE ---
glucose 99 via fingerstick
--- NOTE | 2025-02-16 18:01 | W.ED.GENADLT ---
Documented by User: Giorgio Newman DO 02/18/25 06:11 HPI - General Adult General: Chief complaint: Syncope Stated complaint: unresponsive Time Seen by Provider: 02/16/25 17:53 History of Present Illness: 45-year-old female presents emergency room via EMS after being found unresponsive at a local business. She cannot recall what happened she denies any chest pain. She became responsive as the ambulance was backing into the ambulance bay. She denies the use of any alcohol or drugs. She states she has a history of a rapid heart rate she is tachycardic on arrival. She denies any recent illness no fever sweats chills nausea or vomiting. She told me she has no history of seizure disorder however she is on lamotrigine.. Additionally she is on lithium. Associated symptoms: Deny chest pain, dyspnea or rash Related Data Home Medications ?Medication ?Instructions ?Recorded ?Confirmed ondansetron 8 mg disintegrating 8 mg PO Q8H PRN Nausea And Vomiting 12/09/21 02/16/25 tablet allopurinol 300 mg tablet 300 mg PO QAM 11/25/22 02/16/25 hydromorphone 4 mg tablet 4 mg PO Q4H PRN chronic pain 05/14/24 02/16/25 (Dilaudid) spironolactone 25 1 tab PO DAILY PRN elevated bp 05/14/24 02/16/25 mg-hydrochlorothiazide 25 mg tablet telmisartan 80 mg tablet 40 mg PO DAILY PRN prn bp elevation 05/14/24 02/16/25 tizanidine 4 mg tablet 8 mg PO QID 05/14/24 02/16/25 hydralazine 50 mg tablet 50 mg PO TID PRN Anxiety 08/30/24 02/16/25 carvedilol 6.25 mg tablet 6.25 mg PO TID PRN elevated hr and 02/16/25 02/16/25 blood pressure clonidine HCl 0.2 mg tablet 0.2 mg PO 2XD PRN elevated bp 02/16/25 02/16/25 levothyroxine 112 mcg tablet 112 mcg PO DAILY 02/16/25 02/16/25 potassium chloride 20 mEq 20 meq PO DAILY 02/16/25 02/16/25 tablet,extended release(part/cryst) prazosin 2 mg capsule 4 mg PO BID PRN bp 02/16/25 02/16/25 Previous Rx's ?Medication ?Instructions ?Recorded promethazine 25 mg rectal 25 mg NH Q6H PRN nausea and 09/30/23 suppository vomiting #12 ea lorazepam 2 mg tablet See Rx Instructions PO .COMPLEX 07/12/24 #60 tabs lurasidone 120 mg tablet 120 mg PO DAILY #30 tabs 08/16/24 lamotrigine 200 mg tablet 200 mg PO QAM #30 tabs 11/09/24 lithium carbonate 150 mg capsule 150 mg PO QAM #30 caps 01/10/25 lithium carbonate 300 mg capsule 300 mg PO .qhs #30 caps 01/10/25 prednisone 5 mg tablet 7.5 mg (1.5 x 5 mg) PO DAILY 30 01/18/25 days #45 tabs Allergies Allergy/AdvReac Type Severity Reaction Status Date / Time midodrine Allergy Intermediate ALGY-Rash Verified 02/07/25 08:56 aspirin Allergy due to BUN Verified 02/07/25 08:56 levels coconut Allergy hives Verified 02/07/25 08:56 ketorolac (From Toradol) Allergy hives Verified 02/07/25 08:56 meloxicam (From Mobic) Allergy hives Verified 02/07/25 08:56 NSAIDS (Non-Steroidal Allergy Unknown Verified 02/07/25 08:56 Anti-Inflamma Review of Systems Const: Denies: fever(s) or chills Card: Denies: chest pain Resp: Denies: dyspnea GI: Denies: abdominal pain : Denies: dysuria, urinary frequency or urinary urgency Musc: Denies: neck pain or back pain Skin/Breast: Denies: rash PFSH ED PFSH: Medical History Chronic pain with drug dependence Postsurgical hypothyroidism Goiter Hypertensive urgency Resistant hypertension GERD (gastroesophageal reflux disease) Nausea & vomiting CKD (chronic kidney disease) Hypothyroid Hypertensive urgency, malignant Pulmonary embolism Chest pain at rest Psychiatric care HLD (hyperlipidemia) DM2 (diabetes mellitus, type 2) Chronic back pain Chronic neck and back pain Post traumatic stress disorder (PTSD) Bipolar 1 disorder, depressed, full remission Hypertensive emergency Palpitation Malignant hypertension Chronic renal disease Generalized anxiety disorder Surgical History History of back surgery H/O esophagogastroduodenoscopy (08/12/20) H/O angioplasty History of colonoscopy with polypectomy (08/12/20) History of spinal fusion 10/01/2013- C5-6, ACDFF Dr. Villanueva H/O rectal polypectomy Status post hemilaminotomy 01/06/2012, right L5-S1, disectomy and foraminotomy per Dr. Villanueva History of suburethral sling procedure anterior colporrhapy augmentd with porcine graft, cystoscopy performed on 03/08/[address] Haley History of total hysterectomy 2000 Hx of cholecystectomy History of appendectomy History of bilateral oophorectomy 2011 H/O total thyroidectomy Family History Mother Diabetes Pancreatic cancer Ovarian cancer Father Diabetes Hypertension Stroke COPD (chronic obstructive pulmonary disease) Grandfather Hypertension maternal Heart disease maternal Grandmother Colon cancer maternal Social History Smoking and tobacco/nicotine status: unknown if used tobacco/nicotine Second hand smoke exposure: Yes Alcohol intake: never Substance/Drug Use: never Additional social history: well balanced diet Caregiver/support person: No Lives independently: Yes Household members: spouse Housing: House Marital status: Number of children: 8 Highest education level completed: GED or Equivalent service: No Current occupational status: unemployed Physical Exam Const: GENERAL APPEARANCE: cooperative ORIENTATION/CONSCIOUSNESS: Yes awake HENMT: COMMON NORMALS: normocephalic, atraumatic and hearing grossly normal bilaterally HEAD & SCALP: normocephalic and atraumatic Resp: COMMON NORMALS: normal respiratory effort, No retractions, No use of accessory muscles and clear to auscultation bilaterally AUSCULTATION: clear to auscultation bilaterally Cardio: COMMON NORMALS: regular rate, regular rhythm and No murmurs present (Cardio) RATE: regular rate RHYTHM: regular rhythm GI: COMMON NORMALS: Soft to palpation and No hepatosplenomegaly present AUSCULTATION: Yes normoactive bowel sounds PALPATION: Yes Soft to palpation, No Tenderness to palpation present (GI), No Guarding due to palpation present (GI) and Yes No hepatosplenomegaly present Extremity: COMMON NORMALS: normal to inspection, capillary refill normal, no clubbing, cyanosis or edema, no calf tenderness and no pedal edema Skin: COMMON NORMALS: no rashes or lesions noted GENERAL SKIN EXAM: no rashes or lesions noted Course Vital Signs: Vital signs: Vital Signs Temperature 97.8 F 02/18/25 04:45 Pulse Rate 71 02/18/25 04:45 Respiratory Rate 12 02/18/25 04:45 Blood Pressure 97/63 02/18/25 04:45 Pulse Oximetry 97 02/18/25 04:45 Oxygen Delivery Me thod Room Air 02/18/25 04:45 MDM - General Adult Medical Decision Making Care signed out to Dr. Garcia at change of shift. See final notes for diagnosis and disposition. Medical Records I reviewed the patient's medical records. Lab Data I reviewed the patient's lab results. 02/18/25 04:04 02/18/25 04:04 Radiology Impressions Chest X-Ray 02/16/25 17:53 IMPRESSION: No acute portable chest plain film findings. Head CT 02/16/25 17:53 IMPRESSION: No acute intracranial head CT findings identified. Abdomen/Pelvis CT 02/17/25 10:34 IMPRESSION: Constipation Hip CT 02/17/25 10:34 IMPRESSION: No acute findings. Carotid Doppler Study 02/17/25 17:38 IMPRESSION: No carotid arterial stenosis. REFERENCES: SRU CRITERIA. The degree of internal carotid artery stenosis is based on criteria defined by the Society of Radiologists in Ultrasound (SRU). Normal is no stenosis. Mild is less than 50% stenosis. Moderate is 50-69% stenosis. Severe is greater than 69% stenosis to near occlusion. Near occlusion is a markedly narrowed lumen. Total occlusion is no detectable patent lumen. Reference: Marybeth Guo et al. Carotid Artery Stenosis: Alarcon-Scale and Doppler US Diagnosis-Society of Radiologists in Ultrasound Consensus Conference. Radiology 2003; 229:340-346. Laboratory Results WBC 8.64 10^3/uL (3.29-11.43) 02/16/25 18:08 RBC 5.11 10^6/uL (3.85-5.65) 02/16/25 18:08 Hgb 14.20 g/dL (11.27-16.99) 02/16/25 18:08 Hct 46.5 % (36-47) 02/16/25 18:08 MCV 91.0 fl (85-98) 02/16/25 18:08 MCH 27.8 pg (27-33) 02/16/25 18:08 MCHC 30.5 g/dL (30-55) 02/16/25 18:08 RDW 13.5 % (12.1-15.1) 02/16/25 18:08 Plt Count 255 10^3/cmm (157-399) 02/16/25 18:08 MPV 11.3 fL (7.4-10.4) H 02/16/25 18:08 Neut % (Auto) 46.2 % 02/16/25 18:08 Lymph % (Auto) 38.5 % 02/16/25 18:08 Reynolds % (Auto) 6.0 % 02/16/25 18:08 Eos % (Auto) 6.7 % 02/16/25 18:08 Baso % (Auto) 1.2 % 02/16/25 18:08 Neut # (Auto) 3.99 10^3/uL (1.8-7.7) 02/16/25 18:08 Lymph # (Auto) 3.3 10^3/uL (0.8-4.8) 02/16/25 18:08 Reynolds # (Auto) 0.5 10^3/uL (0.2-0.9) 02/16/25 18:08 Eos # (Auto) 0.6 10^3/uL (0.0-0.8) 02/16/25 18:08 Baso # (Auto) 0.1 10^3/uL (0.0-0.1) 02/16/25 18:08 Nucleated RBC % (auto) 0 % 02/16/25 18:08 Nucleated RBCs # 0.0 /100WBC 02/16/25 18:08 Specimen Type Arterial 02/16/25 18:03 Sample Site Radial, right 02/16/25 18:03 ABG pH 7.38 (7.35-7.45) 02/16/25 18:03 ABG pCO2 39.6 mmHg (35-45) 02/16/25 18:03 ABG pO2 90.5 mmHg (80.0-100.0) 02/16/25 18:03 ABG PO2/FiO2 Ratio 430 02/16/25 18:03 ABG HCO3 23.2 mmol/L (22-26) 02/16/25 18:03 ABG O2 Saturation 97.0 02/16/25 18:03 ABG Base Excess -1.8 mmol/L (-2.0-2.0) 02/16/25 18:03 Reagan Test Pos 02/16/25 18:03 A-a O2 Gradient 1.2 mmHg (5-10) L 02/16/25 18:03 Hematocrit 41.6 % (37-47) 02/16/25 18:03 Hgb O2 Saturation 96.2 % (95-100) 02/16/25 18:03 Carboxyhemoglobin 0.6 %THgb (0.4-20.1) 02/16/25 18:03 Methemoglobin 0.3 % (0.4-1.5) L 02/16/25 18:03 Total Hemoglobin 13.6 g/dL (12-16) 02/16/25 18:03 Sodium 141.0 mmol/L (131-143) 02/16/25 18:03 Potassium 4.7 mmol/L (3.5-5.0) 02/16/25 18:03 Glucose 82.0 mg/dL (70-115) 02/16/25 18:03 Ionized Calcium 1.2 mmol/L (1.1-1.4) 02/16/25 18:03 O2 Delivery Device Room air 02/16/25 18:03 FiO2 21.0 % 02/16/25 18:03 Intertype Operator ID glc 02/16/25 18:03 Sodium 141 mmol/L (136-145) 02/16/25 18:08 Potassium 4.2 mmol/L (3.5-5.1) 02/16/25 18:08 Chloride 101 mmol/L (98-107) 02/16/25 18:08 Carbon Dioxide 22 mmol/L (22-29) 02/16/25 18:08 Anion Gap 22.2 (5-19) H 02/16/25 18:08 BUN 21 mg/dL (6-20) H 02/16/25 18:08 Creatinine 1.6 mg/dL (0.5-0.9) H 02/16/25 18:08 GFR Calculation 34.6 mL/min (90-130) L 02/16/25 18:08 Glucose 68 mg/dL (65-115) 02/16/25 18:08 Calculated Osmolality 293 mOsm/kg (285-295) 02/16/25 18:08 Lactic Acid 3.5 mmol/L (0.5-2.2) H 02/16/25 18:08 Lactic Acid (Sepsis) 1.5 mmol/L (0.5-2.2) 02/16/25 20:15 Calcium 9.6 mg/dL (8.5-10.5) 02/16/25 18:08 Total Bilirubin 0.2 mg/dL (0.15-1.2) 02/16/25 18:08 AST 34 U/L (0-32) H 02/16/25 18:08 ALT 46 U/L (0-33) H 02/16/25 18:08 Alkaline Phosphatase 70 U/L (35-105) 02/16/25 18:08 Troponin T Baseline 10 ng/L (0-10) 02/16/25 18:08 Troponin T 120 Minute 10.98 ng/L (0-10) H 02/16/25 20:15 Delta Troponin T 0.98 ABS# (0-10) 02/16/25 20:15 Total Protein 7.9 g/dL (6.6-8.7) 02/16/25 18:08 Albumin 5.0 g/dL (3.5-5.2) 02/16/25 18:08 Globulin 2.9 g/dL (1.3-4.6) 02/16/25 18:08 TSH 128.20 uIU/mL (0.27-4.20) H 02/16/25 18:08 Urine Color Yellow (Yellow) 02/16/25 19:14 Urine Appearance Cloudy (CLEAR) A 02/16/25 19:14 Urine pH 5.5 (5-7) 02/16/25 19:14 Ur Specific [place] 1.019 (1.005-1.030) 02/16/25 19:14 Urine Protein 1+ (Negative) A 02/16/25 19:14 Urine Glucose (UA) Negative (Normal) 02/16/25 19:14 Urine Ketones Negative (Negative) 02/16/25 19:14 Urine Blood Negative (Negative) 02/16/25 19:14 Urine Nitrate Negative (Negative) 02/16/25 19:14 Urine Bilirubin Negative (Negative) 02/16/25 19:14 Urine Urobilinogen 1.0 mg/dL (Negative) 02/16/25 19:14 Ur Leukocyte Esterase Negative (Negative) 02/16/25 19:14 Urine RBC 0-2 /hpf (0-2) 02/16/25 19:14 Urine WBC 11-20 /hpf (0-5) H 02/16/25 19:14 Ur Squamous Epith Cells 11-20 /hpf (0-5) H 02/16/25 19:14 Amorphous Sediment Not Reportable 02/16/25 19:14 Urine Bacteria 1+ /hpf (NONE) H 02/16/25 19:14 Hyaline Casts 23.98 /lpf 02/16/25 19:14 Fine Granular Casts 0-4 /lpf H 02/16/25 19:14 Coarse Granular Casts 0-4 /lpf H 02/16/25 19:14 Urine Mucus 1+ /hpf 02/16/25 19:14 Salicylates < 0.3 mg/dL (3-10) L 02/16/25 18:08 Urine Opiates Screen Positive ng/mL (Negative) H 02/16/25 19:14 Acetaminophen < 5.0 ug/mL (10-30) L 02/16/25 18:08 Ur Barbiturates Screen Negative ng/mL (Negative) 02/16/25 19:14 Ur Phencyclidine Scrn Negative ng/mL (Negative) 02/16/25 19:14 Ur Amphetamines Screen Negative ng/mL (Negative) 02/16/25 19:14 U Benzodiazepines Scrn Negative ng/mL (Negative) 02/16/25 19:14 [place] 0.1 mmol/L (0.6-1.2) L 02/16/25 18:08 Urine Cocaine Screen Negative ng/mL (Negative) 02/16/25 19:14 U Marijuana (THC) Screen Negative ng/mL (Negative) 02/16/25 19:14 Ethyl Alcohol < 10 mg/dL (0-10) 02/16/25 18:08 EKG Data EKG 1: Interpretation: EKG 02/16/2025 1759 sinus tachycardia some regular rate related changes noted with some nonspecific ST depression particularly in V2 4 and 5 believe this is all rate related. Rate of 137 NH interval 144 QTc 11/30/1935 compared to EKG 01/10/2025. No acute ST elevation noted Computer generated interpretation: Chest X-Ray 02/16/25 17:53 IMPRESSION: No acute portable chest plain film findings. Head CT 02/16/25 17:53 IMPRESSION: No acute intracranial head CT findings identified. Abdomen/Pelvis CT 02/17/25 10:34 IMPRESSION: Constipation Hip CT 02/17/25 10:34 IMPRESSION: No acute findings. Carotid Doppler Study 02/17/25 17:38 IMPRESSION: No carotid arterial stenosis. REFERENCES: SRU CRITERIA. The degree of internal carotid artery stenosis is based on criteria defined by the Society of Radiologists in Ultrasound (SRU). Normal is no stenosis. Mild is less than 50% stenosis. Moderate is 50-69% stenosis. Severe is greater than 69% stenosis to near occlusion. Near occlusion is a markedly narrowed lumen. Total occlusion is no detectable patent lumen. Reference: Marybeth Guo, et al. Carotid Artery Stenosis: Alarcon-Scale and Doppler US Diagnosis-Society of Radiologists in Ultrasound Consensus Conference. Radiology 2003; 229:340-346. Discharge Plan Discharge Patient Disposition: Admitted As Inpatient Admit Provider: Gaye Stubbs Clinical Impression: Syncope, Hypertensive emergency Condition: Stable Coding Level of Care Code ED Channel Installer for Chg Fwd Documented by User: Jose Garcia, 02/16/25 22:48 HPI - General Adult General: Chief complaint: Syncope Stated complaint: unresponsive Time Seen by Provider: 02/16/25 17:53 Related Data Home Medications ?Medication ?Instructions ?Recorded ?Confirmed ondansetron 8 mg disintegrating 8 mg PO Q8H PRN Nausea And Vomiting 12/09/21 02/16/25 tablet allopurinol 300 mg tablet 300 mg PO QAM 11/25/22 02/16/25 hydromorphone 4 mg tablet 4 mg PO Q4H PRN chronic pain 05/14/24 02/16/25 (Dilaudid) spironolactone 25 1 tab PO DAILY PRN elevated bp 05/14/24 02/16/25 mg-hydrochlorothiazide 25 mg tablet telmisartan 80 mg tablet 40 mg PO DAILY PRN prn bp elevation 05/14/24 02/16/25 tizanidine 4 mg tablet 8 mg PO QID 05/14/24 02/16/25 hydralazine 50 mg tablet 50 mg PO TID PRN Anxiety 08/30/24 02/16/25 carvedilol 6.25 mg tablet 6.25 mg PO TID PRN elevated hr and 02/16/25 02/16/25 blood pressure clonidine HCl 0.2 mg tablet 0.2 mg PO 2XD PRN elevated bp 02/16/25 02/16/25 levothyroxine 112 mcg tablet 112 mcg PO DAILY 02/16/25 02/16/25 potassium chloride 20 mEq 20 meq PO DAILY 02/16/25 02/16/25 tablet,extended release(part/cryst) prazosin 2 mg capsule 4 mg PO BID PRN bp 02/16/25 02/16/25 Previous Rx's ?Medication ?Instructions ?Recorded promethazine 25 mg rectal 25 mg NH Q6H PRN nausea and 09/30/23 suppository vomiting #12 ea lorazepam 2 mg tablet See Rx Instructions PO .COMPLEX 07/12/24 #60 tabs lurasidone 120 mg tablet 120 mg PO DAILY #30 tabs 08/16/24 lamotrigine 200 mg tablet 200 mg PO QAM #30 tabs 11/09/24 lithium carbonate 150 mg capsule 150 mg PO QAM #30 caps 01/10/25 lithium carbonate 300 mg capsule 300 mg PO .qhs #30 caps 01/10/25 prednisone 5 mg tablet 7.5 mg (1.5 x 5 mg) PO DAILY 30 01/18/25 days #45 tabs Allergies Allergy/AdvReac Type Severity Reaction Status Date / Time midodrine Allergy Intermediate ALGY-Rash Verified 02/07/25 08:56 aspirin Allergy due to BUN Verified 02/07/25 08:56 levels coconut Allergy hives Verified 02/07/25 08:56 ketorolac (From Toradol) Allergy hives Verified 02/07/25 08:56 meloxicam (From Mobic) Allergy hives Verified 02/07/25 08:56 NSAIDS (Non-Steroidal Allergy Unknown Verified 02/07/25 08:56 Anti-Inflamma PFSH ED PFSH: Medical History Chronic pain with drug dependence Postsurgical hypothyroidism Goiter Hypertensive urgency Resistant hypertension GERD (gastroesophageal reflux disease) Nausea & vomiting CKD (chronic kidney disease) Hypothyroid Hypertensive urgency, malignant Pulmonary embolism Chest pain at rest Psychiatric care HLD (hyperlipidemia) DM2 (diabetes mellitus, type 2) Chronic back pain Chronic neck and back pain Post traumatic stress disorder (PTSD) Bipolar 1 disorder, depressed, full remission Hypertensive emergency Palpitation Malignant hypertension Chronic renal disease Generalized anxiety disorder Surgical History History of back surgery H/O esophagogastroduodenoscopy (08/12/20) H/O angioplasty History of colonoscopy with polypectomy (08/12/20) History of spinal fusion 10/01/2013- C5-6, ACDFF Dr. Villanueva H/O rectal polypectomy Status post hemilaminotomy 01/06/2012, right L5-S1, disectomy and foraminotomy per Dr. Villanueva History of suburethral sling procedure anterior colporrhapy augmentd with porcine graft, cystoscopy performed on 03/08/[address] Haley History of total hysterectomy 2000 Hx of cholecystectomy History of appendectomy History of bilateral oophorectomy 2011 H/O total thyroidectomy Family History Mother Diabetes Pancreatic cancer Ovarian cancer Father Diabetes Hypertension Stroke COPD (chronic obstructive pulmonary disease) Grandfather Hypertension maternal Heart disease maternal Grandmother Colon cancer maternal Social History Smoking and tobacco/nicotine status: unknown if used tobacco/nicotine Second hand smoke exposure: Yes Alcohol intake: never Substance/Drug Use: never Additional social history: well balanced diet Caregiver/support person: No Lives independently: Yes Household members: spouse Housing: House Marital status: Number of children: 8 Highest education level completed: GED or Equivalent service: No Current occupational status: unemployed Course Vital Signs: Vital signs: Vital Signs Temperature 97.8 F 02/18/25 04:45 Pulse Rate 71 02/18/25 04:45 Respiratory Rate 12 02/18/25 04:45 Blood Pressure 97/63 02/18/25 04:45 Pulse Oximetry 97 02/18/25 04:45 Oxygen Delivery Me thod Room Air 02/18/25 04:45 MDM - General Adult Medical Decision Making Care signed out to Dr. Garcia at change of shift. See final notes for diagnosis and disposition. 45-year-old female checked out to me at shift change. This lady passed out. She appears to be back to baseline mental status bey. She is having significant right sided hip pain which is chronic. Her blood pressure has been quite high. She has labile blood pressure history. Her heart rate is drastically improved, down to 90 from as high as 150. EKG showed a sinus tachycardia. Her first troponin is negative. Her creatinine is 1.6. Drug screen is positive only for opiates which she is prescribed. TSH is actually elevated. Lactic acid is 3.5. She is given a fluid bolus for this. She may have had a seizure. Head CT is nonacute. Chest x-ray is nonacute as well. She has had 2 doses of beta-pepe IV without improvement in her blood pressure. She has had pain medication without improvement as well. Her blood pressure remains 202/131. This is despite reduction in her heart rate. She started on a nicardipine drip. She will require admission for hypertensive emergency. Lab Data 02/18/25 04:04 02/18/25 04:04 Radiology Impressions Chest X-Ray 02/16/25 17:53 IMPRESSION: No acute portable chest plain film findings. Head CT 02/16/25 17:53 IMPRESSION: No acute intracranial head CT findings identified. Abdomen/Pelvis CT 02/17/25 10:34 IMPRESSION: Constipation Hip CT 02/17/25 10:34 IMPRESSION: No acute findings. Carotid Doppler Study 02/17/25 17:38 IMPRESSION: No carotid arterial stenosis. REFERENCES: SRU CRITERIA. The degree of internal carotid artery stenosis is based on criteria defined by the Society of Radiologists in Ultrasound (SRU). Normal is no stenosis. Mild is less than 50% stenosis. Moderate is 50-69% stenosis. Severe is greater than 69% stenosis to near occlusion. Near occlusion is a markedly narrowed lumen. Total occlusion is no detectable patent lumen. Reference: Marybeth Guo et al. Carotid Artery Stenosis: Alarcon-Scale and Doppler US Diagnosis-Society of Radiologists in Ultrasound Consensus Conference. Radiology 2003; 229:340-346. Laboratory Results WBC 8.64 10^3/uL (3.29-11.43) 02/16/25 18:08 RBC 5.11 10^6/uL (3.85-5.65) 02/16/25 18:08 Hgb 14.20 g/dL (11.27-16.99) 02/16/25 18:08 Hct 46.5 % (36-47) 02/16/25 18:08 MCV 91.0 fl (85-98) 02/16/25 18:08 MCH 27.8 pg (27-33) 02/16/25 18:08 MCHC 30.5 g/dL (30-55) 02/16/25 18:08 RDW 13.5 % (12.1-15.1) 02/16/25 18:08 Plt Count 255 10^3/cmm (157-399) 02/16/25 18:08 MPV 11.3 fL (7.4-10.4) H 02/16/25 18:08 Neut % (Auto) 46.2 % 02/16/25 18:08 Lymph % (Auto) 38.5 % 02/16/25 18:08 Reynolds % (Auto) 6.0 % 02/16/25 18:08 Eos % (Auto) 6.7 % 02/16/25 18:08 Baso % (Auto) 1.2 % 02/16/25 18:08 Neut # (Auto) 3.99 10^3/uL (1.8-7.7) 02/16/25 18:08 Lymph # (Auto) 3.3 10^3/uL (0.8-4.8) 02/16/25 18:08 Reynolds # (Auto) 0.5 10^3/uL (0.2-0.9) 02/16/25 18:08 Eos # (Auto) 0.6 10^3/uL (0.0-0.8) 02/16/25 18:08 Baso # (Auto) 0.1 10^3/uL (0.0-0.1) 02/16/25 18:08 Nucleated RBC % (auto) 0 % 02/16/25 18:08 Nucleated RBCs # 0.0 /100WBC 02/16/25 18:08 Specimen Type Arterial 02/16/25 18:03 Sample Site Radial, right 02/16/25 18:03 ABG pH 7.38 (7.35-7.45) 02/16/25 18:03 ABG pCO2 39.6 mmHg (35-45) 02/16/25 18:03 ABG pO2 90.5 mmHg (80.0-100.0) 02/16/25 18:03 ABG PO2/FiO2 Ratio 430 02/16/25 18:03 ABG HCO3 23.2 mmol/L (22-26) 02/16/25 18:03 ABG O2 Saturation 97.0 02/16/25 18:03 ABG Base Excess -1.8 mmol/L (-2.0-2.0) 02/16/25 18:03 Reagan Test Pos 02/16/25 18:03 A-a O2 Gradient 1.2 mmHg (5-10) L 02/16/25 18:03 Hematocrit 41.6 % (37-47) 02/16/25 18:03 Hgb O2 Saturation 96.2 % (95-100) 02/16/25 18:03 Carboxyhemoglobin 0.6 %THgb (0.4-20.1) 02/16/25 18:03 Methemoglobin 0.3 % (0.4-1.5) L 02/16/25 18:03 Total Hemoglobin 13.6 g/dL (12-16) 02/16/25 18:03 Sodium 141.0 mmol/L (131-143) 02/16/25 18:03 Potassium 4.7 mmol/L (3.5-5.0) 02/16/25 18:03 Glucose 82.0 mg/dL (70-115) 02/16/25 18:03 Ionized Calcium 1.2 mmol/L (1.1-1.4) 02/16/25 18:03 O2 Delivery Device Room air 02/16/25 18:03 FiO2 21.0 % 02/16/25 18:03 Intertype Operator ID glc 02/16/25 18:03 Sodium 141 mmol/L (136-145) 02/16/25 18:08 Potassium 4.2 mmol/L (3.5-5.1) 02/16/25 18:08 Chloride 101 mmol/L (98-107) 02/16/25 18:08 Carbon Dioxide 22 mmol/L (22-29) 02/16/25 18:08 Anion Gap 22.2 (5-19) H 02/16/25 18:08 BUN 21 mg/dL (6-20) H 02/16/25 18:08 Creatinine 1.6 mg/dL (0.5-0.9) H 02/16/25 18:08 GFR Calculation 34.6 mL/min (90-130) L 02/16/25 18:08 Glucose 68 mg/dL (65-115) 02/16/25 18:08 Calculated Osmolality 293 mOsm/kg (285-295) 02/16/25 18:08 Lactic Acid 3.5 mmol/L (0.5-2.2) H 02/16/25 18:08 Lactic Acid (Sepsis) 1.5 mmol/L (0.5-2.2) 02/16/25 20:15 Calcium 9.6 mg/dL (8.5-10.5) 02/16/25 18:08 Total Bilirubin 0.2 mg/dL (0.15-1.2) 02/16/25 18:08 AST 34 U/L (0-32) H 02/16/25 18:08 ALT 46 U/L (0-33) H 02/16/25 18:08 Alkaline Phosphatase 70 U/L (35-105) 02/16/25 18:08 Troponin T Baseline 10 ng/L (0-10) 02/16/25 18:08 Troponin T 120 Minute 10.98 ng/L (0-10) H 02/16/25 20:15 Delta Troponin T 0.98 ABS# (0-10) 02/16/25 20:15 Total Protein 7.9 g/dL (6.6-8.7) 02/16/25 18:08 Albumin 5.0 g/dL (3.5-5.2) 02/16/25 18:08 Globulin 2.9 g/dL (1.3-4.6) 02/16/25 18:08 TSH 128.20 uIU/mL (0.27-4.20) H 02/16/25 18:08 Urine Color Yellow (Yellow) 02/16/25 19:14 Urine Appearance Cloudy (CLEAR) A 02/16/25 19:14 Urine pH 5.5 (5-7) 02/16/25 19:14 Ur Specific [place] 1.019 (1.005-1.030) 02/16/25 19:14 Urine Protein 1+ (Negative) A 02/16/25 19:14 Urine Glucose (UA) Negative (Normal) 02/16/25 19:14 Urine Ketones Negative (Negative) 02/16/25 19:14 Urine Blood Negative (Negative) 02/16/25 19:14 Urine Nitrate Negative (Negative) 02/16/25 19:14 Urine Bilirubin Negative (Negative) 02/16/25 19:14 Urine Urobilinogen 1.0 mg/dL (Negative) 02/16/25 19:14 Ur Leukocyte Esterase Negative (Negative) 02/16/25 19:14 Urine RBC 0-2 /hpf (0-2) 02/16/25 19:14 Urine WBC 11-20 /hpf (0-5) H 02/16/25 19:14 Ur Squamous Epith Cells 11-20 /hpf (0-5) H 02/16/25 19:14 Amorphous Sediment Not Reportable 02/16/25 19:14 Urine Bacteria 1+ /hpf (NONE) H 02/16/25 19:14 Hyaline Casts 23.98 /lpf 02/16/25 19:14 Fine Granular Casts 0-4 /lpf H 02/16/25 19:14 Coarse Granular Casts 0-4 /lpf H 02/16/25 19:14 Urine Mucus 1+ /hpf 02/16/25 19:14 Salicylates < 0.3 mg/dL (3-10) L 02/16/25 18:08 Urine Opiates Screen Positive ng/mL (Negative) H 02/16/25 19:14 Acetaminophen < 5.0 ug/mL (10-30) L 02/16/25 18:08 Ur Barbiturates Screen Negative ng/mL (Negative) 02/16/25 19:14 Ur Phencyclidine Scrn Negative ng/mL (Negative) 02/16/25 19:14 Ur Amphetamines Screen Negative ng/mL (Negative) 02/16/25 19:14 U Benzodiazepines Scrn Negative ng/mL (Negative) 02/16/25 19:14 [place] 0.1 mmol/L (0.6-1.2) L 02/16/25 18:08 Urine Cocaine Screen Negative ng/mL (Negative) 02/16/25 19:14 U Marijuana (THC) Screen Negative ng/mL (Negative) 02/16/25 19:14 Ethyl Alcohol < 10 mg/dL (0-10) 02/16/25 18:08 All radiology interpretation(s) finalized by discharge EKG Data EKG 1: Computer generated interpretation: Chest X-Ray 02/16/25 17:53 IMPRESSION: No acute portable chest plain film findings. Head CT 02/16/25 17:53 IMPRESSION: No acute intracranial head CT findings identified. Abdomen/Pelvis CT 02/17/25 10:34 IMPRESSION: Constipation Hip CT 02/17/25 10:34 IMPRESSION: No acute findings. Carotid Doppler Study 02/17/25 17:38 IMPRESSION: No carotid arterial stenosis. REFERENCES: SRU CRITERIA. The degree of internal carotid artery stenosis is based on criteria defined by the Society of Radiologists in Ultrasound (SRU). Normal is no stenosis. Mild is less than 50% stenosis. Moderate is 50-69% stenosis. Severe is greater than 69% stenosis to near occlusion. Near occlusion is a markedly narrowed lumen. Total occlusion is no detectable patent lumen. Reference: Marybeth Guo, et al. Carotid Artery Stenosis: Alarcon-Scale and Doppler US Diagnosis-Society of Radiologists in Ultrasound Consensus Conference. Radiology 2003; 229:340-346. Critical Care Time Critical Care Time: Critical Care Time: Yes Total Critical Care Time: 40 Attestation: This case had a high probability of a clinically significant, sudden, or life threatening deterioration of this patient's condition which required my full and direct attention, intervention and personal management. Time is independent of any procedures performed. Discharge Plan Discharge Patient Disposition: Admitted As Inpatient Admit Provider: Gaye Stubbs Clinical Impression: Syncope, Hypertensive emergency Condition: Stable Coding Level of Care Code ED Channel Installer for Ingrid Lindsay
[2025-02-16 18:12] LABS: ABG PCO2 39.6 mmHg (35-45); ABG PH Result 7.38 (7.35-7.45); Alveolar-Arterial Oxygen Gradi 1.2 mmHg (5-10); Arterial Blood Gas Hematocrit 41.6 % (37-47); Base Excess ABG -1.8 mmol/L (-2.0-2.0); Blood Gas Allen Test Pos; Blood Gas Operator Identificat glc; Blood Gas Sample Site Radial, right; Blood Gas Sample Type Arterial; Carboxyhemoglobin 0.6 %THgb (0.4-20.1); HCO3 ABG 23.2 mmol/L (22-26); HGB O2 Sat 96.2 % (95-100); Ionized Calcium Level - ABG 1.2 mmol/L (1.1-1.4); Methemoglobin 0.3 % (0.4-1.5); Oxygen Device ROOM AIR; PO2 ABG 90.5 mmHg (80.0-100.0); PO2 FiO2 Ratio Arterial Blood 430; Potassium Level - ABG 4.7 mmol/L (3.5-5.0); Total Hemoglobin 13.6 g/dL (12-16)
[2025-02-16 18:16] LABS: Basophils # 0.1 10^3/uL (0.0-0.1); Basophils % 1.2 %; Eosinophils # 0.6 10^3/uL (0.0-0.8); Eosinophils % 6.7 %; Hematocrit 46.5 % (36-47); Lymphocytes # 3.3 10^3/uL (0.8-4.8); Lymphocytes % 38.5 %; Mean Corpuscular HGB Conc 30.5 g/dL (30-55); Mean Corpuscular Hemoglobin 27.8 pg (27-33); Mean Platelet Volume 11.3 fL (7.4-10.4); Monocytes # 0.5 10^3/uL (0.2-0.9); Neutrophils # 3.99 10^3/uL (1.8-7.7); Neutrophils % 46.2 %; Nucleated Red Blood Cells % 0 %; Platelet Count 255 10^3/cmm (157-399); Red Blood Count 5.11 10^6/uL (3.85-5.65); Red Cell Distribution Width 13.5 % (12.1-15.1); White Blood Count 8.64 10^3/uL (3.29-11.43)
[2025-02-16] MEDS: sodium chloride 0.9% 1,000 ML 999 ML IV (18:21)
[2025-02-16] MEDS: metoprolol tartrate 1 mg/1 mL SDV 5 mL 2.5 MG IVP (18:24)
[2025-02-16 18:36] LABS: Lactic Sepsis W/Reflex 3.5 mmol/L (0.5-2.2)
[2025-02-16 18:37] LABS: Alanine Aminotransferase 46 U/L (0-33); Alkaline Phosphatase 70 U/L (35-105); Anion Gap 22.2 (5-19); Aspartate Amino Transferase 34 U/L (0-32); Blood Urea Nitrogen 21 mg/dL (6-20); Calcium 9.6 mg/dL (8.5-10.5); Carbon Dioxide 22 mmol/L (22-29); Chloride 101 mmol/L (98-107); Globulin 2.9 g/dL (1.3-4.6); Glomerular Filtration Rate 34.6 mL/min (90-130); Glucose 68 mg/dL (65-115); Osmolality Calculated 293 mOsm/kg (285-295); Potassium 4.2 mmol/L (3.5-5.1); Reflex Lactate Order REFLEX LACTIC ORDERD; Sodium 141 mmol/L (136-145); Total Bilirubin 0.2 mg/dL (0.15-1.2); Total Protein 7.9 g/dL (6.6-8.7); Troponin(5th) Baseline 10 ng/L (0-10)
[2025-02-16 18:38] LABS: Acetaminophen < 5.0 ug/mL (10-30); Alcohol Level < 10 mg/dL (0-10); Salicylate < 0.3 mg/dL (3-10)
[2025-02-16 19:26] LABS: Bilirubin Urine Negative (Negative); Blood Urine Negative (Negative); Glucose Urine UA Negative (Normal); Ketones Urine Negative (Negative); Leukocyte Esterase Urine Negative (Negative); Nitrate Urine Negative (Negative); Protein Urine 1+ (Negative); Specific Gravity, Urine 1.019 (1.005-1.030); Urine Appearance Cloudy (CLEAR); Urine Color Yellow (Yellow); pH Urine 5.5 (5-7)
[2025-02-16 19:28] LABS: Add Urine Microscopic? YES; Bacteria Urine 1+ /hpf; Hyaline Casts Urine 23.98 /lpf; RBC Urine 0-2 /hpf (0-2)
[2025-02-16 19:33] LABS: Amphetamines Screen Urine Negative (Negative); Barbiturates Screen Urine Negative (Negative); Benzodiazepines Screen Urine Negative (Negative); Cocaine Screen Urine Negative (Negative); Opiate Screen Urine Positive (Negative); PCP Screen Urine Negative (Negative); THC Screen Urine Negative (Negative)
[2025-02-16 19:42] LABS: UA Slide Review UA Slide Review Perf
[2025-02-16] MEDS: labetalol 5 mg/mL SDV 20mL 20 MG IVP (19:48)
[2025-02-16 19:51] LABS: Coarse Granular Casts Urine 0-4 /lpf; Fine Granular Casts Urine 0-4 /lpf; Mucus Urine 1+ /hpf
--- NOTE | 2025-02-16 19:58 | ECG_ITS ---
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 Measurements Intervals [place] Rate: 94 P: 55 OK: 162 QRS: 73 QRSD: 85 T: 23 QT: 349 QTc: 437 Interpretive Statements SINUS RHYTHM LOW QRS VOLTAGE IN PRECORDIAL LEADS [QRS DEFLECTION < 1.0 mV IN CHEST LEADS] Compared to ECG 02/16/2025 17:59:53 Sinus tachycardia no longer present ST (T wave) deviation no longer present Electronically Signed On 02-17-2025 19:34:00 CDT by Amber Colindres M.D. [email or web address] [id number]
[2025-02-16] MEDS: ondansetron 2 mg/ML SDV 2 mL 4 MG IVP (20:16)
[2025-02-16] MEDS: HYDROmorphone 0.5 MG/0.5 ML INJ 1 MG IVP ×2 (20:16→21:37)
[2025-02-16 20:36] LABS: Lactic Acid level (Lactate) 1.5 mmol/L (0.5-2.2)
[2025-02-16 20:37] LABS: Troponin 5 2HR 10.98 ng/L (0-10); Troponin 5 2HR Delta 0.98 ABS# (0-10)
[2025-02-16] MEDS: sodium chloride 0.9% 1,000 ML 100 ML IV (21:39)
[2025-02-16] MEDS: cefTRIAXone 1,000 mg SDV 1000 MG IVP (21:40)
[2025-02-16] MEDS: nicardipine 20 MG/200 ML PREMIX 50 MG IV (21:42)
[2025-02-16 21:56] LABS: Lithium 0.1 mmol/L (0.6-1.2)
--- NOTE | 2025-02-16 23:09 | PM.HP ---
Providers/Chief Complaint Admitting Physician: Gaye Stubbs MD--- patient seen before midnight Primary Care Provider: Michelle Rico Chief Complaint: unresponsive History of Present Illness Nina Garcia is a 45 year old female with medical history significant for high blood pressure. This patient is taking multiple blood pressure medications such as carvedilol clonidine hydralazine all scheduled as as needed. She also have spironolactone as needed all her medications or as needed if been some SartaN. Patient presented status post a syncopal event and at the time the blood pressure was 227/100. Patient does have a remote history of bipolar on lithium. Patient was placed on Cardene drip and the blood pressure is now getting much better Cardene drip is being weaned off at this time from a 10 down to a 3 and I am initiating if first dose of 50 mg of hydralazine to ease of and titrate of Cardene drip. Patient relates that she is always in constant pain musculoskeletal in her back and neck. Patient is admitted to ICU because of being on Cardene drip. Blood pressure is being now getting control in the 160s over diastolic less than 100. Must continue to optimize and treat. TSH is very high at 128 patient does not take oral Synthroid or anything patient is being manage by injection in the hands of her endocrinology.. Patient gets into SVTs and down to sinus tach patient was controlled on this on a short acting beta-pepe 50 of metoprolol heart rate was in the 150s and that brought it down to normal rate. The patient's discharge planning is for patient to pay attention to medication and not to be on multiple blood pressure medication prescribed for her as a as needed. There is no way she can be on 6 different blood pressure medicine and taking them anytime she wants and then the primary care doctor most likely will not know and would continue to prescribe because the blood pressure is always high because patient is only taking things as needed Review of Systems Narrative: System review upon 10 organ system review with significant for cardiovascular issues with extreme blood pressure and likely reason for syncopal event. Patient did not have any seizures no tonic-clonic. Medications/Allergies Home Medications ?Medication ?Instructions ?Recorded ?Confirmed ?Last Taken ?Type ondansetron 8 mg disintegrating 8 mg PO Q8H PRN Nausea And Vomiting 12/09/21 02/16/25 02/14/25 08:00 History tablet allopurinol 300 mg tablet 300 mg PO QAM 11/25/22 02/16/25 1 Day Ago History ~02/15/25 promethazine 25 mg rectal 25 mg SD Q6H PRN nausea and 09/30/23 02/16/25 06/26/24 Rx suppository vomiting #12 ea hydromorphone 4 mg tablet 4 mg PO Q4H PRN chronic pain 05/14/24 02/16/25 02/15/25 08:00 History (Dilaudid) spironolactone 25 1 tab PO DAILY PRN elevated bp 05/14/24 02/16/25 1 Month Ago History mg-hydrochlorothiazide 25 mg tablet ~01/16/25 telmisartan 80 mg tablet 40 mg PO DAILY PRN prn bp elevation 05/14/24 02/16/25 1 Month Ago History ~01/16/25 tizanidine 4 mg tablet 8 mg PO QID 05/14/24 02/16/25 02/15/25 08:00 History lorazepam 2 mg tablet See Rx Instructions PO .COMPLEX 07/12/24 02/16/25 02/15/25 08:00 Rx #60 tabs lurasidone 120 mg tablet 120 mg PO DAILY #30 tabs 08/16/24 02/16/25 02/15/25 08:00 Rx hydralazine 50 mg tablet 50 mg PO TID PRN Anxiety 08/30/24 02/16/25 02/15/25 14:00 History lamotrigine 200 mg tablet 200 mg PO QAM #30 tabs 11/09/24 02/16/25 02/15/25 08:00 Rx lithium carbonate 150 mg capsule 150 mg PO QAM #30 caps 01/10/25 02/16/25 1 Day Ago Rx ~02/15/25 lithium carbonate 300 mg capsule 300 mg PO .qhs #30 caps 01/10/25 02/16/25 02/14/25 21:00 Rx prednisone 5 mg tablet 7.5 mg (1.5 x 5 mg) PO DAILY 30 01/18/25 02/16/25 02/15/25 08:00 Rx days #45 tabs carvedilol 6.25 mg tablet 6.25 mg PO TID PRN elevated hr and 02/16/25 02/16/25 1 Month Ago History blood pressure ~01/16/25 clonidine HCl 0.2 mg tablet 0.2 mg PO 2XD PRN elevated bp 02/16/25 02/16/25 02/15/25 08:00 History levothyroxine 112 mcg tablet 112 mcg PO DAILY 02/16/25 02/16/25 02/15/25 08:00 History potassium chloride 20 mEq 20 meq PO DAILY 02/16/25 02/16/25 02/15/25 08:00 History tablet,extended release(part/cryst) prazosin 2 mg capsule 4 mg PO BID PRN bp 02/16/25 02/16/25 02/15/25 08:00 History Allergies Allergy/AdvReac Type Severity Reaction Status Date / Time midodrine Allergy Intermediate ALGY-Rash Verified 02/07/25 08:56 aspirin Allergy due to BUN Verified 02/07/25 08:56 levels coconut Allergy hives Verified 02/07/25 08:56 ketorolac (From Toradol) Allergy hives Verified 02/07/25 08:56 meloxicam (From Mobic) Allergy hives Verified 02/07/25 08:56 NSAIDS (Non-Steroidal Allergy Unknown Verified 02/07/25 08:56 Anti-Inflamma PFSH Acute PFSH: Medical History Chronic pain with drug dependence Postsurgical hypothyroidism Goiter Hypertensive urgency Resistant hypertension GERD (gastroesophageal reflux disease) Nausea & vomiting CKD (chronic kidney disease) Hypothyroid Hypertensive urgency, malignant Pulmonary embolism Chest pain at rest Psychiatric care HLD (hyperlipidemia) DM2 (diabetes mellitus, type 2) Chronic back pain Chronic neck and back pain Post traumatic stress disorder (PTSD) Bipolar 1 disorder, depressed, full remission Hypertensive emergency Palpitation Malignant hypertension Chronic renal disease Generalized anxiety disorder Surgical History History of back surgery H/O esophagogastroduodenoscopy (08/12/20) H/O angioplasty History of colonoscopy with polypectomy (08/12/20) History of spinal fusion 10/01/2013- C5-6, ACDFF Dr. Villanueva H/O rectal polypectomy Status post hemilaminotomy 01/06/2012, right L5-S1, disectomy and foraminotomy per Dr. Villanueva History of suburethral sling procedure anterior colporrhapy augmentd with porcine graft, cystoscopy performed on 03/08/[address] Haley History of total hysterectomy 2000 Hx of cholecystectomy History of appendectomy History of bilateral oophorectomy 2011 H/O total thyroidectomy Family History Mother Diabetes Pancreatic cancer Ovarian cancer Father Diabetes Hypertension Stroke COPD (chronic obstructive pulmonary disease) Grandfather Hypertension maternal Heart disease maternal Grandmother Colon cancer maternal Social History Smoking and tobacco/nicotine status: unknown if used tobacco/nicotine Second hand smoke exposure: Yes Alcohol intake: never Substance/Drug Use: never Additional social history: well balanced diet Caregiver/support person: No Lives independently: Yes Household members: spouse Housing: House Marital status: Number of children: 8 Highest education level completed: GED or Equivalent service: No Current occupational status: unemployed Vitals/I&O/Wt Last Vital Signs Temp 98.1 F 02/16/25 17:52 Pulse 115 H 02/16/25 22:49 Resp 17 02/16/25 22:49 BP 158/104 02/16/25 22:49 Pulse Ox 96 02/16/25 22:49 O2 Del Method Room Air 02/16/25 19:30 02/16/25 02/16/25 02/17/25 14:59 22:59 06:59 Intake Total 1018.333 / 1018.333 Balance 1018.333 / 1018.333 Weight last 48 hrs Weight 90.718 kg Physical Exam Narrative: Patient is okay in no apparent distress ever complaining of chronic pain of the back HEENT normocephalic/atraumatic neck neck is supple cardiovascular heart rate is regular lungs are pretty much clear abdomen soft nontender nondistended unremarkable extremities intact he has no edema has good pulses neurology has no focality lab studies lab studies reviewed and noted. Data 02/16/25 18:08 02/16/25 18:08 Micro: Microbiology 02/16/25 18:34 Blood Culture - Preliminary Blood SPECIMEN COLLECTED 02/16/25 18:08 Blood Culture - Preliminary Blood SPECIMEN COLLECTED A&P Assessment and plan (1) Hypertensive emergency: - This be manage appropriately with good patient education patient is taking blood pressure medication Only as per whenever she wants to take it leading to hypertensive emergencies - Good teaching is important for the patient - Patient is not getting of the Cardene drip and I am adding oral blood pressure medicine as we go. - Must continue to treat and optimize. - Blood pressure of over 200s systolic is now down to the 140s to 160s - Cardene drip off patient has been initiated on oral blood pressure medication - Only blood pressure medication patient goes home with would be the one prescribed during this hospitalization not bunch of blood pressure medicine she is on at home that are not scheduled but only Taking as needed according to the patient. (2) Syncope: Emergency room did consult teleneurology - Patient also to follow-up on this outpatient at discharge - This could be of vasovagal, hypertensive urgencies - Must continue to monitor and optimize - I ordered echocardiogram to evaluate wall motion abnormality and EF (3) Chronic pain with drug dependence: Patient is on chronic pain medication was not sure if she has a pain management doctor to be on Dilaudid 4 mg every 4 hours at home close benzodiazepine and a lot of others that are very concerning. Continue to optimize and care. (4) Acute cystitis: Patient is on antibiotics at this time with ceftriaxone - Continue ceftriaxone while in house and at discharge patient can be on oral antibiotics - Follow-up with cultures and sensitivities and optimize accordingly Plan GI and DVT prophylaxis are in place PDMP PDMP Reviewed: Last Reviewed 02/17/25 07:24 by Gaye Stubbs MD Attestations Medical Necessity Statement*: Patient with hypertensive urgency with syncopal event deserve inpatient admission for further optimization of care along with teaching. Patient is inpatient Coding Level of Care Code 22178 Diagnoses Hypertensive emergency I16.1 Syncope R55 Chronic pain with drug dependence G89.29; F19.20 Acute cystitis N30.00 Time Spent (min) 60
--- NOTE | 2025-02-16 23:58 | ECG_ITS ---
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 Measurements Intervals [place] Rate: 121 P: 56 SD: 153 QRS: 91 QRSD: 89 T: -10 QT: 313 QTc: 444 Interpretive Statements SINUS TACHYCARDIA BORDERLINE RIGHT AXIS DEVIATION [QRS AXIS > 90] NONSPECIFIC T-WAVE ABNORMALITY Compared to ECG 02/16/2025 20:50:02 T-wave abnormality now present Sinus rhythm no longer present Electronically Signed On 02-17-2025 19:33:40 CDT by Amber Colindres M.D. [email or web address] [id number]
[2025-02-17] VITALS (66 sets, daily range): BP systolic 78–176; BP diastolic 49–115; PULSE 71–142; RESP 11–25; TEMP 36.8–37.1; O2SAT 90–99
[2025-02-17 00:12] LABS: Troponin 5 6HR 10.79 ng/L (0-10); Troponin 5 6HR Delta 0.79 ng/L (0-12)
[2025-02-17] MEDS: nicardipine 20 MG/200 ML PREMIX 100 MG IV (00:27)
[2025-02-17] MEDS: heparin 5,000 unit/mL INJ 1 mL 5000 UNIT SUBCUT ×3 (00:27→22:57)
[2025-02-17] MEDS: sodium chloride 0.45% 1,000 ML 75 ML IV ×2 (00:41→15:10)
[2025-02-17] MEDS: LORazepam 2 mg Tablet PO (00:44)
[2025-02-17] MEDS: nicardipine 20 MG/200 ML PREMIX 30 MG IV ×3 (02:39→10:18)
[2025-02-17 02:57] LABS: Glucose Point of Care 157 mg/dL (70-110)
[2025-02-17] MEDS: metoprolol tartrate 50 mg Tablet PO (05:14)
[2025-02-17] MEDS: HYDROmorphone tab 2 MG TABLET 4 MG PO (05:15)
[2025-02-17] MEDS: tizanidine 4 mg Tablet 8 MG PO ×2 (05:15→22:56)
[2025-02-17] MEDS: hyDRALAzine 50 mg Tablet PO ×2 (07:54→15:09)
[2025-02-17] MEDS: metoprolol succinate ER (24 HR) 50 mg Tablet PO (07:54)
[2025-02-17 08:55] LABS: Cortisol Random 17.33 ug/dL (2.47-19.5); Free T4 Free Thyroxine 0.95 ng/dL (0.82-1.77); T3 Free 2.3 PG/ML (2.0-4.4)
[2025-02-17] MEDS: lurasidone 80 mg Tablet 120 MG PO (09:08)
[2025-02-17] MEDS: predniSONE 5 mg Tablet 7.5 MG PO (09:08)
--- NOTE | 2025-02-17 10:34 | CTR_ITS ---
PROCEDURE INFORMATION: Exam: CT Abdomen And Pelvis Without Contrast Exam date and time: 02/17/2025 1:38 PM Age: 45 years old Clinical indication: Abdominal pain; Prior surgery; Surgery date: 6+ months; Surgery type: Gb, appy, hysto; Additional info: Swelling, distention TECHNIQUE: Imaging protocol: Computed tomography of the abdomen and pelvis without contrast. Radiation optimization: All CT scans at this facility use at least one of these dose optimization techniques: automated exposure control; mA and/or kV adjustment per patient size (includes targeted exams where dose is matched to clinical indication); or iterative reconstruction. COMPARISON: CT abdomen pelvis w con* [id number] 09/04/2024 6:22 PM RADIATION DOSE METRICS: Total DLP (mGy-cm): 989.5 FINDINGS: Lungs: Lung bases are clear. No pleural effusion. Liver: Normal. No mass. Gallbladder and biliary ducts: The gallbladder has been resected. Pancreas: Normal. No ductal dilation. Spleen: Normal. No splenomegaly. Adrenal glands: Normal. No mass. Kidneys and ureters: Normal. No hydronephrosis. Stomach and bowel: There is a moderate amount of stool noted throughout the colon. No bowel distension. Appendix: The appendix has been surgically removed. Intraperitoneal space: Unremarkable. No free air. No significant fluid collection. Vasculature: Unremarkable. No abdominal aortic aneurysm. Lymph nodes: Unremarkable. No enlarged lymph nodes. Urinary bladder: Unremarkable as visualized. Reproductive: Unremarkable as visualized. Bones/joints: Unremarkable. No acute fracture. Soft tissues: Unremarkable. CT/CT abdomen pelvis wo con [id number] IMPRESSION: Constipation
--- NOTE | 2025-02-17 10:34 | CTR_ITS ---
PROCEDURE INFORMATION: Exam: CT Right Lower Extremity Without Contrast, Hip Exam date and time: 02/17/2025 1:38 PM Age: 45 years old Clinical indication: Pain; Hip; Right TECHNIQUE: Imaging protocol: CT of the right lower extremity without contrast was performed. Exam focused on the hip. Radiation optimization: All CT scans at this facility use at least one of these dose optimization techniques: automated exposure control; mA and/or kV adjustment per patient size (includes targeted exams where dose is matched to clinical indication); or iterative reconstruction. COMPARISON: CT hip RT wo con* [id number] 03/13/2024 2:13 PM RADIATION DOSE METRICS: Total DLP (mGy-cm): 408.8 FINDINGS: Bones/joints: The bony structures demonstrate diffuse osteopenia. No fracture noted. Soft tissues: Normal. CT/CT hip RT wo con* [id number] IMPRESSION: No acute findings.
[2025-02-17] MEDS: cloNIDine 0.1 mg Tablet PO (13:27)
[2025-02-17] MEDS: LORazepam 1 mg Tablet PO (13:27)
[2025-02-17] MEDS: sodium chloride 0.9% 500 ML 999 ML IV (15:56)
[2025-02-17] MEDS: cefTRIAXone 1,000 mg SDV 1000 MG IVP (17:22)
[2025-02-17] MEDS: albumin 25 G/100 ML BAG 60 G IV (17:22)
--- NOTE | 2025-02-17 17:37 | P.PN_ITS ---
Subjective 2 Subjective: Patient was seen this morning, currently alert oriented x 3, following all commands, she reports feeling flushed she does do bilirubin her blood pressure is elevated she gets flushed, and sweaty, currently is tachycardic heart rates in the 140s, sinus tachycardia, on a Cardene drip, denies any allergic reaction no face swelling, no tongue swelling, no shortness of breath, I did ask patient about her multiple blood pressure medication she takes hydralazine, prazosin, spironolactone, telmisartan all as needed, she tells me that her blood pressures tend to fluctuate that is why she has to use them as needed she tells me that she was at [facility] when she passed out she does not remember the event well Vitals/I&O/Wt Last Vital Signs Temp 98.8 F 02/17/25 08:00 Pulse 84 02/17/25 16:30 Resp 19 H 02/17/25 16:30 BP 88/62 02/17/25 17:10 Pulse Ox 95 02/17/25 16:30 O2 Del Method Room Air 02/16/25 23:45 02/17/25 02/17/25 02/17/25 06:59 14:59 22:59 Intake Total 777.583 / 2923.662 4257.5 / 1229.5 Output Total 900 / 900 Balance -122.417 / 786.168 3227.5 / 1229.5 Weight last 48 hrs Weight 92.079 kg Weight 92.85 kg Weight 90.718 kg Physical Exam 2 Const: COMMON NORMALS: no acute distress and patient oriented x3 OTHER: Appears flushed Resp: COMMON NORMALS: normal respiratory effort, No retractions, No use of accessory muscles and clear to auscultation bilaterally AUSCULTATION: clear to auscultation bilaterally Cardio: COMMON NORMALS: regular rate, regular rhythm, S1 normal heart sound present and S2 normal heart sound present RATE: regular rate RHYTHM: r egular rhythm HEART SOUNDS: S1 normal heart sound present and S2 normal heart sound present GI: COMMON NORMALS: Normal to inspection, nondistended, normoactive bowel sounds present and non-tender Extremity: COMMON NORMALS: no pedal edema Neuro: COMMON NORMALS: patient oriented x3 Psych: COMMON NORMALS: mental status grossly normal Data 02/16/25 18:08 02/16/25 18:08 Micro: Microbiology 02/16/25 18:34 Blood Culture - Preliminary Blood SPECIMEN COLLECTED 02/16/25 18:08 Blood Culture - Preliminary Blood SPECIMEN COLLECTED A&P Assessment and plan (1) Hypertensive emergency: - Continue Cardene drip, wean off - Resume home blood pressure medications - Metoprolol 50 mg daily - Clonidine 0.1 twice daily - Will order her urine catecholamines, serum metanephrines (2) Syncope: - No strokelike symptoms - No patient was requiring slurring words, no focal weakness - No chest pain - Cardiac echo - Carotid ultrasound - Will check orthostatic vitals once blood pressure stabilized (3) Chronic pain with drug dependence: - Continue home Dilaudid - Continue home Ativan (4) Acute cystitis: - Continue to Rocephin Plan GI and DVT prophylaxis are in place Continue home Lamictal Continue home lithium Hypothyroidism, receives weekly levothyroxine injections, last dose was 400 mcg on Tuesday, TSH 128, Fe T4 within normal limits, free T3 within normal meds recheck TSH tomorrow PDMP PDMP Reviewed: Last Reviewed 02/17/25 08:14 by Christiano Marshall MD Attestations 2 Medical Necessity Statement*: Patient requires hospitalization for hypertensive urgency, syncope, acute cystitis Diagnoses Hypertensive emergency I16.1 Syncope R55 Chronic pain with drug dependence G89.29; F19.20 Acute cystitis N30.00
--- NOTE | 2025-02-17 17:38 | USR_ITS ---
PROCEDURE INFORMATION: Exam: US Duplex Bilateral Extracranial Arteries; Complete; Carotid Arteries Exam date and time: 02/17/2025 6:30 PM Age: 45 years old Clinical indication: Syncope and collapse TECHNIQUE: Imaging protocol: Real-time duplex ultrasound scan of the bilateral extracranial arteries combining alarcon scale, color Doppler and spectral waveform analysis with image documentation. Complete exam. Exam focused on the carotid arteries. COMPARISON: CT head wo con* [id number] 02/16/2025 6:11 PM FINDINGS: Right common carotid artery: Unremarkable. No occlusion or stenosis. Waveforms are normal. Right internal carotid artery: Unremarkable. No occlusion or stenosis. Waveforms are normal. Right ICA/CCA ratio: 0.8. Within normal limits. Right external carotid artery: No stenosis in the origin. Right vertebral artery: Unremarkable. Antegrade flow. Left common carotid artery: Unremarkable. No occlusion or stenosis. Waveforms are normal. Left internal carotid artery: Unremarkable. No occlusion or stenosis. Waveforms are normal. Left ICA/CCA ratio: 0.8. Within normal limits. Left external carotid artery: No stenosis in the origin. Left vertebral artery: Unremarkable. Antegrade flow. US/CV carotid duplex BI* [id number] IMPRESSION: No carotid arterial stenosis. REFERENCES: SRU CRITERIA. The degree of internal carotid artery stenosis is based on criteria defined by the Society of Radiologists in Ultrasound (SRU). Normal is no stenosis. Mild is less than 50% stenosis. Moderate is 50-69% stenosis. Severe is greater than 69% stenosis to near occlusion. Near occlusion is a markedly narrowed lumen. Total occlusion is no detectable patent lumen. Reference: Marybeth Guo, et al. Carotid Artery Stenosis: Alarcon-Scale and Doppler US Diagnosis-Society of Radiologists in Ultrasound Consensus Conference. Radiology 2003; 229:340-346.
[2025-02-17] MEDS: lithium carbonate 300 mg Capsule PO (21:19)
[2025-02-17] MEDS: sennosides 8.6 mg Tablet 17.2 MG PO (21:19)
[2025-02-17] MEDS: LORazepam 2 mg Tablet 1 MG PO (21:19)
--- NOTE | 2025-02-17 22:35 | PC.NURSE ---
Blood pressure medication Blood pressure MAPs intermittently low. PO hydralazine held. Additionally, patient requesting home dose of tizanidine. Dr. Stubbs contacted; blood pressure medications as well as pain medications discussed. Orders received to change hydralazine to 25 mg PO TID, discontinue clonidine, and administer 8 mg tizanidine PO once.
--- NOTE | 2025-02-17 22:52 | USCV_ITS ---
Nina Garcia Age: 45 Gender: F : 1980 Exam Date: 02/17/2025 14:58 Ordering Phys: Gaye Stubbs MD Technologist: LAVELLE [place] [facility] [place] Syncope BP: 119 / 89 HR: 85 Rhythm: Sinus Technical Quality: Adequate MEASUREMENTS (Male / Female) Normal Values 2D ECHO LV Diastolic Diameter PLAX 3.9 cm 4.2 - 5.9 / 3.9 - 5.3 cm IVS Diastolic Thickness 0.9 cm 0.6 - 1.0 / 0.6 - 0.9 cm IVS Systolic Thickness 1.6 cm LVPW Diastolic Thickness 1.4 cm 0.6 - 1.0 / 0.6 - 0.9 cm LVPW Systolic Thickness 1.4 cm LVOT Diameter 2.0 cm LV Ejection Fraction 2D Teich 58.8 % LV Ejection Fraction MOD 4C 58.4 % LV Ejection Fraction MOD 2C 59.6 % LV Ejection Fraction 2C AL 63.1 % LA Diameter 3.0 cm RA Systolic Volume 4C AL 17.2 ml RA Systolic Volume 4C MOD 16.6 ml LA Sys Volume AL 30.3 cm cubed LA Sys Volume Index AL 14.5 cm cubed/m squared Aorta at Sinotubular Diameter 2.3 cm M-MODE LA Ao Ratio MM 1.2 AV Cusp Separation MM 1.0 cm DOPPLER AV Peak Velocity 132.0 cm/s LVOT Peak Velocity 96.0 cm/s AV Area Cont Eq vti 2.6 cm squared AV Area Cont Eq pk 2.3 cm squared MV Peak Velocity 88.0 cm/s MV Area PHT 3.3 cm squared Mitral E to A Ratio 0.7 TR Peak Velocity 91.0 cm/s TR Peak Gradient 3.3 mmHg TV Peak E Velocity 59.0 cm/s PV Peak Velocity 98.0 cm/s FINDINGS Left Ventricle Left ventricle is normal in size. LV systolic function is normal with EF of 55-60%. No regional wall motion abnormalities are seen. Grade 1 diastolic dysfunction Right Ventricle Normal in size and function Right Atrium Normal in size Left Atrium Normal in size Mitral Valve Structurally normal mitral valve.Trace mitral regurgitation Aortic Valve Structurally normal aortic valve. No significant stenosis or regurgitation. Tricuspid Valve Insufficient TR jet to calculate RVSP Pulmonic Valve Not well visualized Pericardium Normal Aorta Normal in size IVC Not well visualized CONCLUSIONS LV systolic function is normal with EF of 55-60% Grade 1 diastolic dysfunction Trace mitral regurgitation Rodolfo Chen MD (Electronically Signed) Final Date: 28 February 2025 16:32 S
[2025-02-18] VITALS (83 sets, daily range): BP systolic 72–165; BP diastolic 41–131; PULSE 63–117; RESP 10–30; TEMP 36.6–36.8; O2SAT 92–100
[2025-02-18 04:20] LABS: Basophils # 0.1 10^3/uL (0.0-0.1); Basophils % 0.8 %; Eosinophils # 0.2 10^3/uL (0.0-0.8); Eosinophils % 3.1 %; Hematocrit 34.6 % (36-47); Lymphocytes # 1.8 10^3/uL (0.8-4.8); Lymphocytes % 30.3 %; Mean Corpuscular HGB Conc 29.8 g/dL (30-55); Mean Corpuscular Hemoglobin 27.6 pg (27-33); Mean Corpuscular Volume 92.8 fl (85-98); Mean Platelet Volume 11.2 fL (7.4-10.4); Monocytes # 0.4 10^3/uL (0.2-0.9); Monocytes % 6.3 %; Neutrophils % 59.2 %; Nucleated Red Blood Cells % 0 %; Platelet Count 183 10^3/cmm (157-399); Red Blood Count 3.73 10^6/uL (3.85-5.65); Red Cell Distribution Width 13.9 % (12.1-15.1); White Blood Count 6.08 10^3/uL (3.29-11.43)
[2025-02-18 04:46] LABS: Alanine Aminotransferase 82 U/L (0-33); Albumin Level 3.9 g/dL (3.5-5.2); Alkaline Phosphatase 50 U/L (35-105); Anion Gap 17.5 (5-19); Aspartate Amino Transferase 48 U/L (0-32); Blood Urea Nitrogen 18 mg/dL (6-20); Calcium 8.8 mg/dL (8.5-10.5); Carbon Dioxide 22 mmol/L (22-29); Chloride 105 mmol/L (98-107); Globulin 2.3 g/dL (1.3-4.6); Glomerular Filtration Rate 48.2 mL/min (90-130); Glucose 128 mg/dL (65-115); NT Pro B Type Natriuretic Pept 448 pg/mL (0-125); Osmolality Calculated 294 mOsm/kg (285-295); Potassium 4.5 mmol/L (3.5-5.1); Sodium 140 mmol/L (136-145); Total Bilirubin 0.3 mg/dL (0.15-1.2); Total Protein 6.2 g/dL (6.6-8.7)
[2025-02-18 05:23] LABS: T3 Free 1.9 PG/ML (2.0-4.4)
[2025-02-18] MEDS: lamoTRIgine 100 mg Tablet 200 MG PO (06:04)
[2025-02-18] MEDS: LORazepam 1 mg Tablet PO ×2 (06:04→12:32)
[2025-02-18] MEDS: allopurinol 300 mg Tablet PO (06:04)
[2025-02-18] MEDS: predniSONE 5 mg Tablet 7.5 MG PO (09:12)
[2025-02-18] MEDS: lithium carbonate 150 mg Capsule PO (09:12)
[2025-02-18] MEDS: lurasidone 80 mg Tablet 120 MG PO (09:13)
[2025-02-18] MEDS: heparin 5,000 unit/mL INJ 1 mL 5000 UNIT SUBCUT ×2 (12:29→23:33)
--- NOTE | 2025-02-18 14:52 | P.PN_ITS ---
Subjective 2 Subjective: Patient was seen this morning, currently alert oriented x 3, following all commands, no fevers, no chills, no cough, she does feel flushed this morning, a bit tachycardic, no lightheadedness, dizziness, Vitals/I&O/Wt Last Vital Signs Temp 97.8 F 02/18/25 04:45 Pulse 88 02/18/25 13:30 Resp 10 L 02/18/25 13:30 BP 124/78 02/18/25 13:30 Pulse Ox 92 02/18/25 13:30 O2 Del Method Room Air 02/18/25 04:45 02/17/25 02/18/25 02/18/25 22:59 06:59 14:59 Intake Total 625 / 1854.5 222 / 2076.5 480 / 480 Output Total 850 / 850 1000 / 1850 Balance -225 / 1004.5 -778 / 226.5 480 / 480 Weight last 48 hrs Weight 90.537 kg Weight 92.079 kg Weight 92.85 kg Weight 90.718 kg Physical Exam 2 Const: COMMON NORMALS: no acute distress and patient oriented x3 Resp: COMMON NORMALS: normal respiratory effort, No retractions, No use of accessory muscles and clear to auscultation bilaterally AUSCULTATION: clear to auscultation bilaterally Cardio: COMMON NORMALS: regular rate, regular rhythm, S1 normal heart sound present and S2 normal heart sound present RATE: regular rate RHYTHM: r egular rhythm HEART SOUNDS: S1 normal heart sound present and S2 normal heart sound present GI: COMMON NORMALS: Normal to inspection, nondistended, normoactive bowel sounds present and non-tender Extremity: COMMON NORMALS: no pedal edema Neuro: COMMON NORMALS: patient oriented x3 Psych: COMMON NORMALS: mental status grossly normal Data 02/19/25 03:02 02/19/25 03:02 Micro: Microbiology 02/16/25 18:34 Blood Culture - Preliminary Blood NEGATIVE TO DATE 02/16/25 18:08 Blood Culture - Preliminary Blood NEGATIVE TO DATE A&P Assessment and plan (1) Hypertensive emergency: - Continue Cardene drip, wean off - Patient has rapidly fluctuating, labile blood pressures, yesterday afternoon blood pressures dropped to 60s over 40s - Metoprolol, clonidine, hydralazine stopped, Cardene drip stopped -She tells me that these frequently about blood pressures happen at home that is why her blood pressure medications are as needed -Given her paroxysmal blood pressures, palpitations, perspiration, pallor, highly suspicious for pheochromocytoma -Workup for pheochromocytoma - Will order her urine catecholamines, serum metanephrines - Start doxazosin today (2) Syncope: - No strokelike symptoms - No patient was requiring slurring words, no focal weakness - No chest pain - Cardiac echo - Carotid ultrasound no acute findings - Will check orthostatic vitals once blood pressure stabilized (3) Chronic pain with drug dependence: - Continue home Dilaudid - Continue home Ativan (4) Acute cystitis: - Continue to Rocephin Plan GI and DVT prophylaxis are in place Continue home Lamictal Continue home lithium Hypothyroidism, receives weekly levothyroxine injections, last dose was 400 mcg on Tuesday, TSH 51, Fe T4 within normal limits, free T3 within normal meds recheck TSH tomorrow PDMP PDMP Reviewed: Last Reviewed 02/17/25 08:14 by Christiano Marshall MD Attestations 2 Medical Necessity Statement*: Patient requires hospitalization for labile blood pressures Coding Level of Care Code Acute Code for Chg Fwd Diagnoses Hypertensive emergency I16.1 Syncope R55 Chronic pain with drug dependence G89.29; F19.20 Acute cystitis N30.00
[2025-02-18] MEDS: fludrocortisone 0.1 mg Tablet 0.2 MG PO (16:22)
[2025-02-18] MEDS: cefTRIAXone 1,000 mg SDV 1000 MG IVP (18:44)
[2025-02-18] MEDS: lithium carbonate 300 mg Capsule PO (20:49)
[2025-02-18] MEDS: sennosides 8.6 mg Tablet 17.2 MG PO (20:49)
[2025-02-18] MEDS: LORazepam 2 mg Tablet 1 MG PO (20:50)
[2025-02-19] VITALS (54 sets, daily range): BP systolic 56–215; BP diastolic 31–175; PULSE 60–143; RESP 10–22; TEMP 36.4–36.7; O2SAT 91–100
[2025-02-19] MEDS: sodium chloride 0.9% 1,000 ML 999 ML IV ×2 (01:45→13:39)
[2025-02-19 03:47] LABS: Basophils # 0.1 10^3/uL (0.0-0.1); Eosinophils # 0.3 10^3/uL (0.0-0.8); Hematocrit 34.7 % (36-47); Lymphocytes # 0.7 10^3/uL (0.8-4.8); Lymphocytes % 14.3 %; Mean Corpuscular Volume 93.3 fl (85-98); Mean Platelet Volume 11.6 fL (7.4-10.4); Monocytes # 0.3 10^3/uL (0.2-0.9); Neutrophils # 3.44 10^3/uL (1.8-7.7); Neutrophils % 71.3 %; Nucleated Red Blood Cells % 0 %; Platelet Count 161 10^3/cmm (157-399); Red Blood Count 3.72 10^6/uL (3.85-5.65); Red Cell Distribution Width 14.1 % (12.1-15.1); White Blood Count 4.83 10^3/uL (3.29-11.43)
[2025-02-19 04:13] LABS: Alanine Aminotransferase 72 U/L (0-33); Albumin Level 3.9 g/dL (3.5-5.2); Alkaline Phosphatase 58 U/L (35-105); Anion Gap 14.8 (5-19); Aspartate Amino Transferase 38 U/L (0-32); Blood Urea Nitrogen 18 mg/dL (6-20); Carbon Dioxide 25 mmol/L (22-29); Chloride 103 mmol/L (98-107); Globulin 2.7 g/dL (1.3-4.6); Glomerular Filtration Rate 53.2 mL/min (90-130); Glucose 105 mg/dL (65-115); Osmolality Calculated 290 mOsm/kg (285-295); Potassium 3.8 mmol/L (3.5-5.1); Sodium 139 mmol/L (136-145); Total Bilirubin 0.3 mg/dL (0.15-1.2); Total Protein 6.6 g/dL (6.6-8.7)
[2025-02-19 04:30] LABS: NT Pro B Type Natriuretic Pept 227 pg/mL (0-125)
[2025-02-19 05:08] LABS: Free T4 Free Thyroxine 0.66 ng/dL (0.82-1.77)
[2025-02-19] MEDS: ondansetron 2 mg/ML SDV 2 mL 4 MG IVP ×2 (05:29→09:56)
[2025-02-19] MEDS: LORazepam 1 mg Tablet PO ×3 (06:08→20:22)
[2025-02-19] MEDS: allopurinol 300 mg Tablet PO (06:08)
[2025-02-19] MEDS: lamoTRIgine 100 mg Tablet 200 MG PO (06:08)
[2025-02-19] MEDS: lithium carbonate 150 mg Capsule PO (06:09)
[2025-02-19] MEDS: lurasidone 80 mg Tablet 120 MG PO (08:03)
[2025-02-19] MEDS: fludrocortisone 0.1 mg Tablet 0.2 MG PO (08:05)
[2025-02-19] MEDS: predniSONE 5 mg Tablet 10 MG PO (08:05)
--- NOTE | 2025-02-19 08:39 | PC.NURSE ---
0852 Patient sat up for breakfast in bed, ate well. Up to bedside commode, then back to bed. Bp up, order for orthostatic bp done. Standing 193/162 Sitting 215/175 Lying 198/108. Had given po med for back and hip pain at 0802, says her pain is still at 6 on pain scale.
[2025-02-19] MEDS: doxazosin 1 mg Tablet PO ×2 (10:01→18:03)
--- NOTE | 2025-02-19 10:03 | PC.NURSE ---
[address] Marshall of continued elevated blood pressure. 1000 Giving nausea med for nausea, dr. Marshall came in to visit. New orders for po med now.
[2025-02-19] MEDS: nicardipine 20 MG/200 ML PREMIX 50 MG IV (10:20)
--- NOTE | 2025-02-19 11:06 | USCV_ITS ---
Nina Garcia Age: 45 Gender: F : 1980 Exam Date: 02/19/2025 21:23 Ordering Phys: Christiano Marshall MD Technologist: ANNETTA [place] [facility] [place]: HTN Aortic Velocity @ SMA (cm/s) 69.8 RIGHT KIDNEY LEFT KIDNEY Velocity (cm/s) Velocity (cm/s) Sys/Lyn Sys/Lyn Resistive Index Resistive Index 144.0 / 48.7 0.66 Proximal Renal Artery 177.4 / 52.4 0.70 205.8 / 74.4 0.64 Mid Renal Artery 173.0 / 72.1 0.58 92.0 / 29.3 0.68 Distal Renal Artery 155.4 / 63.4 0.59 23.9 / 10.0 0.58 Upper Pole 93.0 / 34.5 0.63 25.2 / 9.5 0.62 Mid Pole 97.6 / 35.8 0.63 21.3 / 9.1 0.57 Lower Pole 56.4 / 22.9 0.59 2.90 Renal Aortic Ratio 2.50 10.0 Kidney Length (cm) 11.0 FINDINGS Comparison: 09/20/20. Normal size kidneys. No evidence of abdominal aortic aneurysm. The flow velocities in the right renal artery are elevated, suggesting hemodynamically significiant (>60%) renal artery stenosis. The flow velocities in the left renal artery are elevated, suggesting hemodynamically significiant (>60%) renal artery stenosis. CONCLUSIONS Hemodynamically significant (>60% in severity) renal artery stenosis bilaterally. Recommend renal artery CTA to further assess renal arteries. Dr. Desi Vee DO (Electronically Signed) Final Date: 20 February 2025 07:59 S
[2025-02-19] MEDS: heparin 5,000 unit/mL INJ 1 mL 5000 UNIT SUBCUT ×2 (12:27→20:23)
--- NOTE | 2025-02-19 12:56 | PC.NURSE ---
1250 Patient laying down sleeping, bp drop. Woke patient up and ask to wake up and move around a little. BP some better. so she sat up on the edge of the bed to BE awake for a while. No c/o's
--- NOTE | 2025-02-19 13:07 | PC.NURSE ---
1305 Patient resting again, bp down to 70/39, denies any c/o's Noified dr. stevenson, ask me to monitor her.
--- NOTE | 2025-02-19 13:42 | PC.NURSE ---
1330 patient lethargic with low bp and now c/o feeling hot, Notified dr. Yung for NS bolus.
[2025-02-19] MEDS: levothyroxine 100 mcg SDV 500 MCG XX (14:06)
--- NOTE | 2025-02-19 14:14 | PC.NURSE ---
1415 Fluid bolus going, bp a little better, patient feeling little better, less lethargic, just tired.
--- NOTE | 2025-02-19 15:37 | P.PN_ITS ---
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 - Placed on doxazosin for alpha blockade - Please continue doxazosin for alpha bl ockade Vitals/I&O/Wt Last Vital Signs Temp 97.9 F 02/19/25 12:00 Pulse 81 02/19/25 14:00 Resp 14 02/19/25 13:15 BP 81/42 02/19/25 14:00 Pulse Ox 96 02/19/25 14:00 O2 Del Method Room Air 02/19/25 06:00 02/19/25 02/19/25 02/19/25 06:59 14:59 22:59 Intake Total 1000 / 1480 37.5 / 37.5 Output Total 600 / 600 Balance 400 / 880 37.5 / 37.5 Weight last 48 hrs Weight 91.49 kg Weight 90.537 kg Physical Exam 2 Const: COMMON NORMALS: no acute distress and patient oriented x3 Resp: COMMON NORMALS: normal respiratory effort, No retractions, No use of accessory muscles and clear to auscultation bilaterally AUSCULTATION: clear to auscultation bilaterally Cardio: COMMON NORMALS: regular rate, regular rhythm, S1 normal heart sound present and S2 normal heart sound present RATE: regular rate RHYTHM: r egular rhythm HEART SOUNDS: S1 normal heart sound present and S2 normal heart sound present GI: COMMON NORMALS: Normal to inspection, nondistended, normoactive bowel sounds present and non-tender Extremity: COMMON NORMALS: no pedal edema Neuro: COMMON NORMALS: patient oriented x3 Psych: COMMON NORMALS: mental status grossly normal Data 02/19/25 03:02 02/19/25 03:02 A&P Assessment and plan (1) Hypertensive emergency: - Was briefly on Cardene drip now stopped - Patient has rapidly fluctuating, labile blood pressures, - Metoprolol, clonidine, hydralazine stopped, -She tells me that these frequently about blood pressures happen at home that is why her blood pressure medications are as needed -Given her paroxysmal blood pressures, palpitations, perspiration, pallor, highly suspicious for pheochromocytoma -Workup for pheochromocytoma pending - Will order her urine catecholamines, serum metanephrines - Start doxazosin today for alpha blockade (2) Syncope: - No strokelike symptoms - No patient was requiring slurring words, no focal weakness - No chest pain - Cardiac echo - Carotid ultrasound no acute findings - Will check orthostatic vitals once blood pressure stabilized (3) Chronic pain with drug dependence: - Continue home Dilaudid - Continue home Ativan (4) Acute cystitis: - Continue to Rocephin Plan GI and DVT prophylaxis are in place Continue home Lamictal Continue home lithium Hypothyroidism, receives weekly levothyroxine injections, last dose was 400 mcg on Tuesday, TSH 51, Fe T4 within normal limits, spoke to Dr. Toure, levothyroxine 500 mcg IM once PDMP PDMP Reviewed: Last Reviewed 02/17/25 08:14 by Christiano Marshall MD Attestations 2 Medical Necessity Statement*: Patient requires hospitalization for labile blood pressures concern for pheochromocytoma Diagnoses Hypertensive emergency I16.1 Syncope R55 Chronic pain with drug dependence G89.29; F19.20 Acute cystitis N30.00
[2025-02-19] MEDS: cefTRIAXone 1,000 mg SDV 1000 MG IVP (18:04)
[2025-02-19] MEDS: water for injection-sterile 10 ML 100 ML (18:06)
--- NOTE | 2025-02-19 19:20 | PC.NURSE ---
Heart rate up to 154 now 135 bp 154/80 Dr. Landaverde called - instructed to monitor and only intervene if Afib rvr or symptomatic vt. due to patient labile bp and heart rates. Patient asymptomatic at time. back to 118 in 15 minutes without intervention.
[2025-02-19] MEDS: sennosides 8.6 mg Tablet 17.2 MG PO (20:09)
[2025-02-19] MEDS: lithium carbonate 300 mg Capsule PO (20:09)
[2025-02-20] VITALS (36 sets, daily range): BP systolic 67–204; BP diastolic 41–133; PULSE 64–145; RESP 12–24; TEMP 36.3–36.8; O2SAT 86–99
[2025-02-20] MEDS: lithium carbonate 150 mg Capsule PO (05:04)
[2025-02-20] MEDS: allopurinol 300 mg Tablet PO (05:05)
[2025-02-20] MEDS: LORazepam 1 mg Tablet PO ×2 (05:05→20:16)
[2025-02-20] MEDS: lamoTRIgine 100 mg Tablet 200 MG PO (05:05)
[2025-02-20 05:39] LABS: Basophils % 0.9 %; Eosinophils # 0.2 10^3/uL (0.0-0.8); Eosinophils % 3.8 %; Hematocrit 36.9 % (36-47); Mean Corpuscular HGB Conc 30.6 g/dL (30-55); Mean Corpuscular Hemoglobin 27.9 pg (27-33); Mean Corpuscular Volume 91.1 fl (85-98); Mean Platelet Volume 12.4 fL (7.4-10.4); Monocytes # 0.4 10^3/uL (0.2-0.9); Monocytes % 9.7 %; Neutrophils # 2.74 10^3/uL (1.8-7.7); Neutrophils % 61.9 %; Nucleated Red Blood Cells % 0 %; Platelet Count 167 10^3/cmm (157-399); Red Blood Count 4.05 10^6/uL (3.85-5.65); Red Cell Distribution Width 13.9 % (12.1-15.1); White Blood Count 4.43 10^3/uL (3.29-11.43)
[2025-02-20 06:03] LABS: Alanine Aminotransferase 162 U/L (0-33); Albumin Level 4.4 g/dL (3.5-5.2); Alkaline Phosphatase 95 U/L (35-105); Aspartate Amino Transferase 106 U/L (0-32); Blood Urea Nitrogen 13 mg/dL (6-20); Calcium 9.3 mg/dL (8.5-10.5); Carbon Dioxide 25 mmol/L (22-29); Chloride 103 mmol/L (98-107); Globulin 2.6 g/dL (1.3-4.6); Glomerular Filtration Rate 48.2 mL/min (90-130); Glucose 102 mg/dL (65-115); Osmolality Calculated 294 mOsm/kg (285-295); Sodium 142 mmol/L (136-145); Total Bilirubin 0.3 mg/dL (0.15-1.2)
[2025-02-20 06:04] LABS: NT Pro B Type Natriuretic Pept 206 pg/mL (0-125)
[2025-02-20 06:06] LABS: Slide Review Slide Review Perform
[2025-02-20 08:37] LABS: Free T4 Free Thyroxine 1.25 ng/dL (0.82-1.77)
[2025-02-20] MEDS: predniSONE 5 mg Tablet 10 MG PO (08:49)
[2025-02-20] MEDS: lurasidone 80 mg Tablet 120 MG PO (08:49)
[2025-02-20] MEDS: chlorthalidone 25 mg Tablet PO (08:49)
[2025-02-20] MEDS: fludrocortisone 0.1 mg Tablet 0.2 MG PO (08:49)
[2025-02-20] MEDS: heparin 5,000 unit/mL INJ 1 mL 5000 UNIT SUBCUT ×2 (08:50→20:21)
[2025-02-20] MEDS: doxazosin 1 mg Tablet PO ×2 (08:50→20:16)
[2025-02-20] MEDS: ondansetron 2 mg/ML SDV 2 mL 4 MG IVP (08:54)
--- NOTE | 2025-02-20 09:08 | CTR_ITS ---
PROCEDURE INFORMATION: Exam: CTA Abdomen and Pelvis With Contrast Exam date and time: 02/20/2025 8:43 PM Age: 45 years old Clinical indication: Other: Bilatereal renal artery stenosis; Additional info: bilateral renal artery stenosis TECHNIQUE: Imaging protocol: Computed tomographic angiography of the abdomen and pelvis with contrast. Exam focused on the arteries. 3D rendering (Not supervised by radiologist): MIP and/or 3D reconstructed images were created by the technologist. Radiation optimization: All CT scans at this facility use at least one of these dose optimization techniques: automated exposure control; mA and/or kV adjustment per patient size (includes targeted exams where dose is matched to clinical indication); or iterative reconstruction. Contrast material: OMNIPAQUE 350; Contrast volume: 100 ml; Contrast route: INTRAVENOUS (IV); COMPARISON: CT abdomen pelvis wo con [id number] 02/17/2025 1:38 PM RADIATION DOSE METRICS: Total DLP (mGy-cm): 891.85 Other radiation dose metrics: VASCULATURE: FINDINGS: Lungs: Clear basilar lung parenchyma. Pleural spaces: No pleural fluid. Heart: Normal heart size. Aorta: No aortic aneurysm. No aortic dissection. Celiac trunk and mesenteric arteries: No occlusion or significant stenosis. Renal arteries: No occlusion or significant stenosis. No findings of fibromuscular dysplasia. Right iliac arteries: No occlusion or significant stenosis. Left iliac arteries: No occlusion or significant stenosis. Liver: No mass. Gallbladder and biliary ducts: Prior cholecystectomy. No biliary tree dilation or high-density retained stones appreciated. Pancreas: No edema. No mass. No ductal dilation. Spleen: No splenomegaly. Adrenal glands: No mass. Kidneys and ureters: Kidneys enhance symmetrically and demonstrate no evidence of mass, calculus, obstruction, or inflammation. Stomach and bowel: Postprandial stomach. Normal caliber small bowel. Distal colonic diverticulosis without evidence of acute diverticulitis. Appendix: Prior appendectomy. Intraperitoneal space: No free fluid or free air. Lymph nodes: No enlarged lymph nodes. Urinary bladder: No mass. Reproductive: Prior hysterectomy. No evidence of vaginal cuff or adnexal mass. Bones/joints: Unremarkable. No acute fracture. Soft tissues: Unremarkable. CT/CT angio abdomen pelvis [id number] IMPRESSION: Widely patent bilateral renal arteries without evidence of stenosis or fibromuscular dysplasia.
[2025-02-20 09:43] LABS: HCG, Serum Qual Negative (Negative)
[2025-02-20] MEDS: metoclopramide 5 mg/mL SDV 2 mL IVP (10:20)
[2025-02-20] MEDS: HYDROmorphone 0.5 MG/0.5 ML INJ 1 MG IVP (10:21)
[2025-02-20] MEDS: sodium chloride 0.9% 1,000 ML 75 ML IV ×2 (10:26→22:59)
--- NOTE | 2025-02-20 16:43 | P.PN_ITS ---
Subjective 2 Subjective: Patient was seen this morning, she is alert oriented x 3, following all commands, denies any fevers, chills, no headache, no blurry vision, she does have episodic tachycardia heart rates up in the 140s, with hypertension, with both systolic blood pressure in the 190s, that slowly improving on its own she has received Cardura this morning in addition to chlorthalidone, she tells me that at home she takes Dilaudid 4 mg 1 to 2 tablets every 4 hours as needed, but she is only allowed to use 5 tablets in a 24-hour period, so when she is in severe pain she does at times use 2 tablets and she has severe pain now, discussed her renal ultrasound findings, for possible renal artery stenosis will do CTA abdomen to evaluate renal arteries Vitals/I&O/Wt Last Vital Signs Temp 97.4 F L 02/20/25 07:46 Pulse 94 02/20/25 12:30 Resp 12 02/20/25 15:06 BP 97/65 02/20/25 12:30 Pulse Ox 97 02/20/25 12:30 O2 Del Method Room Air 02/20/25 02:00 02/20/25 02/20/25 02/20/25 06:59 14:59 22:59 Intake Total 220 / 1707.5 Output Total 600 / 600 Balance -380 / 1107.5 Weight last 48 hrs Weight 89.675 kg Weight 91.49 kg Physical Exam 2 Const: COMMON NORMALS: no acute distress and patient oriented x3 Resp: COMMON NORMALS: normal respiratory effort, No retractions, No use of accessory muscles and clear to auscultation bilaterally AUSCULTATION: clear to auscultation bilaterally Cardio: COMMON NORMALS: regular rate, regular rhythm, S1 normal heart sound present and S2 normal heart sound present RATE: regular rate RHYTHM: r egular rhythm HEART SOUNDS: S1 normal heart sound present and S2 normal heart sound present GI: COMMON NORMALS: Normal to inspection, nondistended, normoactive bowel sounds present and non-tender Extremity: COMMON NORMALS: no pedal edema Neuro: COMMON NORMALS: patient oriented x3 Psych: COMMON NORMALS: mental status grossly normal Data 02/20/25 04:27 02/20/25 04:27 A&P Assessment and plan (1) Hypertensive emergency: - Was briefly on Cardene drip now stopped - Patient has rapidly fluctuating, labile blood pressures, - Metoprolol, clonidine, hydralazine stopped, -She tells me that these frequently about blood pressures happen at home that is why her blood pressure medications are as needed -Given her paroxysmal blood pressures, palpitations, perspiration, pallor, highly suspicious for pheochromocytoma -Workup for pheochromocytoma pending - urine catecholamines, serum metanephrines -Renin level, aldosterone level -Renal artery ultrasound shows CONCLUSIONS Hemodynamically significant (>60% in severity) renal artery stenosis bilaterally. Recommend renal artery CTA to further assess renal arteries. -Will order CTA angio abdomen pelvis - doxazosin today for alpha blockade, will consider beta-pepe based on progress (2) Syncope: - No strokelike symptoms - No patient was requiring slurring words, no focal weakness - No chest pain - Cardiac echo - Carotid ultrasound no acute findings - Will check orthostatic vitals once blood pressure stabilized (3) Chronic pain with drug dependence: - Continue home Dilaudid - Continue home Ativan (4) Acute cystitis: - Continue to Rocephin Plan GI and DVT prophylaxis are in place Continue home Lamictal Continue home lithium Hypothyroidism, receives weekly levothyroxine injections, last dose was 400 mcg on Tuesday, TSH 51, Fe T4 within normal limits, spoke to Dr. Toure, levothyroxine 500 mcg IM once, 02/19/2025 Plan complete alpha blockade with at least 48 to 72 hours of alpha blockade with doxazosin, will consider beta-pepe continue chlorthalidone blood pressures tend to fluctuate, does have intermittent tachycardia will monitor resume her home Dilaudid PDMP PDMP Reviewed: Last Reviewed 02/20/25 09:03 by Christiano Marshall MD Attestations 2 Medical Necessity Statement*: Patient requires hospitalization for labile hypertension, tachycardia Diagnoses Hypertensive emergency I16.1 Syncope R55 Chronic pain with drug dependence G89.29; F19.20 Acute cystitis N30.00
[2025-02-20] MEDS: cefTRIAXone 1,000 mg SDV 1000 MG IVP (18:59)
[2025-02-20] MEDS: sennosides 8.6 mg Tablet 17.2 MG PO (20:16)
[2025-02-20] MEDS: lithium carbonate 300 mg Capsule PO (20:16)
[2025-02-20] MEDS: iohexol 350 mg/mL 500 mL Btl (per mL) IV (20:45)
[2025-02-21] VITALS (29 sets, daily range): BP systolic 92–168; BP diastolic 52–107; PULSE 73–124; RESP 11–18; TEMP 36.8–36.9; O2SAT 87–98
[2025-02-21 03:34] LABS: Metanephrine Total Free 216 pg/mL (<=205)
[2025-02-21 05:24] LABS: Basophils % 1.1 %; Eosinophils # 0.3 10^3/uL (0.0-0.8); Eosinophils % 6.7 %; Hematocrit 33.4 % (36-47); Lymphocytes # 0.8 10^3/uL (0.8-4.8); Lymphocytes % 21.4 %; Mean Corpuscular HGB Conc 30.2 g/dL (30-55); Mean Corpuscular Hemoglobin 27.7 pg (27-33); Mean Corpuscular Volume 91.8 fl (85-98); Mean Platelet Volume 11.4 fL (7.4-10.4); Monocytes # 0.3 10^3/uL (0.2-0.9); Monocytes % 9.1 %; Neutrophils # 2.29 10^3/uL (1.8-7.7); Neutrophils % 61.4 %; Nucleated Red Blood Cells % 0 %; Platelet Count 159 10^3/cmm (157-399); Red Blood Count 3.64 10^6/uL (3.85-5.65); Red Cell Distribution Width 13.9 % (12.1-15.1); White Blood Count 3.73 10^3/uL (3.29-11.43)
[2025-02-21] MEDS: LORazepam 1 mg Tablet PO ×3 (05:25→21:39)
[2025-02-21] MEDS: lithium carbonate 150 mg Capsule PO (05:25)
[2025-02-21] MEDS: allopurinol 300 mg Tablet PO (05:25)
[2025-02-21] MEDS: lamoTRIgine 100 mg Tablet 200 MG PO (05:25)
[2025-02-21 05:46] LABS: Alanine Aminotransferase 295 U/L (0-33); Albumin Level 3.8 g/dL (3.5-5.2); Alkaline Phosphatase 129 U/L (35-105); Anion Gap 13.7 (5-19); Aspartate Amino Transferase 226 U/L (0-32); Blood Urea Nitrogen 9 mg/dL (6-20); Calcium 9.1 mg/dL (8.5-10.5); Carbon Dioxide 26 mmol/L (22-29); Chloride 104 mmol/L (98-107); Globulin 2.8 g/dL (1.3-4.6); Glomerular Filtration Rate 53.2 mL/min (90-130); Glucose 98 mg/dL (65-115); Osmolality Calculated 289 mOsm/kg (285-295); Potassium 3.7 mmol/L (3.5-5.1); Sodium 140 mmol/L (136-145); Total Bilirubin 0.4 mg/dL (0.15-1.2); Total Protein 6.6 g/dL (6.6-8.7)
[2025-02-21] MEDS: predniSONE 5 mg Tablet 10 MG PO (08:00)
[2025-02-21] MEDS: fludrocortisone 0.1 mg Tablet 0.2 MG PO (08:00)
[2025-02-21] MEDS: heparin 5,000 unit/mL INJ 1 mL 5000 UNIT SUBCUT ×2 (08:01→20:42)
[2025-02-21] MEDS: doxazosin 1 mg Tablet PO ×3 (08:01→20:42)
[2025-02-21] MEDS: chlorthalidone 25 mg Tablet PO (08:01)
[2025-02-21 08:53] LABS: Erythrocyte Sedimentation Rate 6 mm/hr (0-15)
[2025-02-21 09:00] LABS: C Reactive Protein 13.8 mg/L (0.0-4.9); Lipase 19 U/L (13-60)
[2025-02-21] MEDS: lurasidone 80 mg Tablet 120 MG PO (09:02)
[2025-02-21 09:08] LABS: Lithium 0.5 mmol/L (0.6-1.2)
[2025-02-21 09:48] LABS: HIV 1 & 2 Antibody Non-Reactive (Non-Reactiv); HIV 1 & 2 Antigen Non-Reactive (Non-Reactiv)
[2025-02-21] MEDS: sodium chloride 1 gm Tablet PO ×3 (09:53→20:42)
[2025-02-21 10:24] LABS: Hepatitis A Antibody IgM Non-Reactive (Nonreactive); Hepatitis B Core IgM Non-Reactive (Nonreactive); Hepatitis B Surface Antigen Non-Reactive (Nonreactive); Hepatitis C Virus Antibody Non-Reactive (Nonreactive)
[2025-02-21] MEDS: sodium chloride 0.9% 1,000 ML 75 ML IV (11:11)
[2025-02-21 13:25] LABS: Ferritin 401 ng/mL (15-150); Gamma Glutamyl Transferase 202 U/L (5-36); Iron 82 ug/dL (37-145)
--- NOTE | 2025-02-21 16:00 | P.PN_ITS ---
Subjective 2 Subjective: Patient was seen this morning, she is currently alert oriented x 3, following all commands, denies any fevers, no chills, no cough her blood pressure has been more bobby, discussed increasing salt in her diet and when I try to titrate up her doxazosin today, will consider beta-pepe based on clinical progress, we will recheck her lithium levels, CT abdomen pelvis with IV contrast did not show any evidence of renal artery stenosis, I am still waiting on her urine catecholamines and serum metanephrine testing Vitals/I&O/Wt Last Vital Signs Temp 98.5 F 02/21/25 09:00 Pulse 113 H 02/21/25 14:00 Resp 14 02/21/25 14:00 BP 119/75 02/21/25 14:00 Pulse Ox 92 02/21/25 14:00 O2 Del Method Room Air 02/21/25 14:00 02/21/25 02/21/25 02/21/25 06:59 14:59 22:59 Intake Total 200 / 1361.25 915 / 915 Output Total 1200 / 1200 Balance -1000 / 161.25 915 / 915 Weight last 48 hrs Weight 89.04 kg Weight 89.675 kg Physical Exam 2 Const: COMMON NORMALS: no acute distress and patient oriented x3 Neck/C-Spine: COMMON NORMALS: no JVD Resp: COMMON NORMALS: normal respiratory effort, No retractions, No use of accessory muscles and clear to auscultation bilaterally AUSCULTATION: clear to auscultation bilaterally Cardio: COMMON NORMALS: no JVD, regular rate, regular rhythm, S1 normal heart sound present and S2 normal heart sound present RATE: regular rate RHYTHM: regular rhythm HEART SOUNDS: S1 normal heart sound present and S2 normal heart sound present GI: COMMON NORMALS: Normal to inspection, nondistended, normoactive bowel sounds present and non-tender Extremity: COMMON NORMALS: no pedal edema Neuro: COMMON NORMALS: patient oriented x3 Psych: COMMON NORMALS: mental status grossly normal Data 02/21/25 04:38 02/21/25 04:38 A&P Assessment and plan (1) Hypertensive emergency: - Was briefly on Cardene drip now stopped - Patient has rapidly fluctuating, labile blood pressures, - Metoprolol, clonidine, hydralazine stopped, -She tells me that these frequently about blood pressures happen at home that is why her blood pressure medications are as needed -Given her paroxysmal blood pressures, palpitations, perspiration, pallor, highly suspicious for pheochromocytoma -Workup for pheochromocytoma pending - urine catecholamines, serum metanephrines -Renin level, aldosterone level -Renal artery ultrasound shows CONCLUSIONS Hemodynamically significant (>60% in severity) renal artery stenosis bilaterally. Recommend renal artery CTA to further assess renal arteries. - CT angiogram of the abdomen pelvis does not show evidence of renal artery stenosis or fibromuscular dysplasia - doxazosin today for alpha blockade increased to 3 times daily, added salt tablets, will consider beta-pepe based on progress - Given that she is on lithium at home will avoid JENNYFER or ARB's or thiazide diuretics due to risk of lithium toxicity - Patient does seem quite sensitive to calcium channel blockers, the Cardene drip her blood pressures drop (2) Syncope: - No strokelike symptoms - No patient was requiring slurring words, no focal weakness - No chest pain - Cardiac echo - Carotid ultrasound no acute findings - Will check orthostatic vitals once blood pressure stabilized (3) Chronic pain with drug dependence: - Continue home Dilaudid - Continue home Ativan (4) Acute cystitis: - Continue to Rocephin (5) Pheochromocytoma: (6) Labile blood pressure: Plan She does also have transaminitis, potentially shock liver, related to her hypotensive episodes we will monitor Continue home Lamictal Continue home lithium Hypothyroidism, receives weekly levothyroxine injections, last dose was 400 mcg on Tuesday, TSH 51, Fe T4 within normal limits, spoke to Dr. Toure, levothyroxine 500 mcg IM once, 02/19/2025 Plan complete alpha blockade with at least 48 to 72 hours of alpha blockade with doxazosin, will consider beta-pepe continue chlorthalidone blood pressures tend to fluctuate, does have intermittent tachycardia will monitor resume her home Dilaudid PDMP PDMP Reviewed: Last Reviewed 02/20/25 09:03 by Christiano Marshall MD Attestations 2 Medical Necessity Statement*: Patient requires hospitalization for labile blood pressures, syncope Diagnoses Hypertensive emergency I16.1 Syncope R55 Chronic pain with drug dependence G89.29; F19.20 Acute cystitis N30.00 Pheochromocytoma D35.00 Labile blood pressure R09.89
--- NOTE | 2025-02-21 17:37 | PC.NURSE ---
patient reports pain. Nurse adminsitered dilaudid. Order has a range of 1-2 tablets. Nurse removed 2 dailudid pills form the pyxis. Upon assessment and administration, only 1 dilaudid was indicated. Nurse returned the other dilaudid to the pyxis.
--- NOTE | 2025-02-21 18:35 | PC.NURSE ---
SHift SUmmary: uneventful shift. Rested in bed for most of the day, but was up occasionally and to the bathroom. Walked for about 75 feet without any abnormal rythms or high heart rate. Heart rate usually around 100 BPM and regular, but would occasionally jump to 120 without any obvious provocation. At one point had a heart rate as high as 165, but it lasted only a few minutes and came down without intervention. Patient has been asymptomatic throughout the whole shift.
[2025-02-21] MEDS: lithium carbonate 300 mg Capsule PO (20:42)
[2025-02-21] MEDS: sennosides 8.6 mg Tablet 17.2 MG PO (20:42)
[2025-02-22] VITALS (20 sets, daily range): BP systolic 93–178; BP diastolic 55–129; PULSE 60–147; RESP 9–21; TEMP 36.6–36.9; O2SAT 91–98
[2025-02-22] MEDS: sodium chloride 0.9% 1,000 ML 75 ML IV ×2 (00:38→13:28)
[2025-02-22 04:58] LABS: Basophils # 0.1 10^3/uL (0.0-0.1); Basophils % 1.6 %; Eosinophils # 0.3 10^3/uL (0.0-0.8); Eosinophils % 8.1 %; Hematocrit 33.7 % (36-47); Lymphocytes # 0.8 10^3/uL (0.8-4.8); Lymphocytes % 25.2 %; Mean Corpuscular HGB Conc 30.6 g/dL (30-55); Mean Corpuscular Hemoglobin 28.2 pg (27-33); Mean Corpuscular Volume 92.3 fl (85-98); Mean Platelet Volume 11.2 fL (7.4-10.4); Monocytes # 0.3 10^3/uL (0.2-0.9); Monocytes % 9.6 %; Neutrophils # 1.76 10^3/uL (1.8-7.7); Neutrophils % 54.6 %; Nucleated Red Blood Cells % 0 %; Platelet Count 163 10^3/cmm (157-399); Red Blood Count 3.65 10^6/uL (3.85-5.65); Red Cell Distribution Width 14.2 % (12.1-15.1); White Blood Count 3.22 10^3/uL (3.29-11.43)
[2025-02-22 05:14] LABS: Alanine Aminotransferase 635 U/L (0-33); Albumin Level 3.8 g/dL (3.5-5.2); Alkaline Phosphatase 200 U/L (35-105); Anion Gap 14.6 (5-19); Aspartate Amino Transferase 400 U/L (0-32); Blood Urea Nitrogen 8 mg/dL (6-20); Calcium 9.1 mg/dL (8.5-10.5); Carbon Dioxide 25 mmol/L (22-29); Chloride 103 mmol/L (98-107); Globulin 2.9 g/dL (1.3-4.6); Glomerular Filtration Rate 53.2 mL/min (90-130); Glucose 87 mg/dL (65-115); Osmolality Calculated 286 mOsm/kg (285-295); Potassium 3.6 mmol/L (3.5-5.1); Sodium 139 mmol/L (136-145); Total Bilirubin 0.6 mg/dL (0.15-1.2); Total Protein 6.7 g/dL (6.6-8.7)
[2025-02-22] MEDS: allopurinol 300 mg Tablet PO (05:45)
[2025-02-22] MEDS: lithium carbonate 150 mg Capsule PO (05:45)
[2025-02-22] MEDS: lamoTRIgine 100 mg Tablet 200 MG PO (05:46)
[2025-02-22] MEDS: LORazepam 1 mg Tablet PO ×3 (05:56→20:25)
[2025-02-22] MEDS: heparin 5,000 unit/mL INJ 1 mL 5000 UNIT SUBCUT ×2 (08:36→20:28)
[2025-02-22] MEDS: predniSONE 5 mg Tablet 10 MG PO (08:38)
[2025-02-22] MEDS: doxazosin 1 mg Tablet PO ×3 (08:38→20:25)
[2025-02-22] MEDS: lurasidone 80 mg Tablet 120 MG PO (08:38)
[2025-02-22] MEDS: fludrocortisone 0.1 mg Tablet 0.2 MG PO (08:38)
[2025-02-22 08:54] LABS: Acetaminophen < 5.0 ug/mL (10-30)
--- NOTE | 2025-02-22 09:20 | PC.NURSE ---
Pt able to ambualte around unit twice without difficutly. HEart rate stayed 100-112. BP immediately after :143/98. Pt denies any chest pain, shortness of breath or dizziness.
[2025-02-22] MEDS: sodium chloride 1 gm Tablet PO ×3 (09:37→20:26)
[2025-02-22 12:00] LABS: Aldosterone / Pra Ratio 1.6 Ratio (0.9-28.9); Aldosterone LC/MS/MS 1 ng/dL; Plasma Renin Activity LC MS MS 0.64 ng/mL/h (0.25-5.82)
[2025-02-22 15:58] LABS: Alanine Aminotransferase 591 U/L (0-33); Alkaline Phosphatase 204 U/L (35-105); Anion Gap 14.3 (5-19); Aspartate Amino Transferase 298 U/L (0-32); Blood Urea Nitrogen 8 mg/dL (6-20); Carbon Dioxide 26 mmol/L (22-29); Chloride 104 mmol/L (98-107); Globulin 2.7 g/dL (1.3-4.6); Glomerular Filtration Rate 53.2 mL/min (90-130); Glucose 174 mg/dL (65-115); Osmolality Calculated 293 mOsm/kg (285-295); Potassium 4.3 mmol/L (3.5-5.1); Sodium 140 mmol/L (136-145); Total Bilirubin 0.7 mg/dL (0.15-1.2); Total Protein 6.7 g/dL (6.6-8.7)
--- NOTE | 2025-02-22 17:56 | P.PN_ITS ---
Subjective 2 Subjective: Patient was seen this morning, currently alert oriented x 3, following all commands, denies any fevers, chills, cough, no chest pain, no palpitations,, blood pressures are more normotensive, less labile, Vitals/I&O/Wt Last Vital Signs Temp 98 F 02/22/25 14:00 Pulse 102 H 02/22/25 16:00 Resp 13 02/22/25 16:00 BP 110/74 02/22/25 16:00 Pulse Ox 93 02/22/25 16:00 O2 Del Method Room Air 02/22/25 16:00 02/22/25 02/22/25 02/22/25 06:59 14:59 22:59 Intake Total 2071 / 2986 1000 / 1000 Output Total 550 / 550 Balance 1521 / 2436 1000 / 1000 Weight last 48 hrs Weight 89.04 kg Weight 89.04 kg Physical Exam 2 Const: COMMON NORMALS: no acute distress and patient oriented x3 Resp: COMMON NORMALS: normal respiratory effort, No retractions, No use of accessory muscles and clear to auscultation bilaterally AUSCULTATION: clear to auscultation bilaterally Cardio: COMMON NORMALS: regular rate, regular rhythm, S1 normal heart sound present and S2 normal heart sound present RATE: regular rate RHYTHM: r egular rhythm HEART SOUNDS: S1 normal heart sound present and S2 normal heart sound present GI: COMMON NORMALS: Normal to inspection, nondistended, normoactive bowel sounds present and non-tender Extremity: COMMON NORMALS: no pedal edema Neuro: COMMON NORMALS: patient oriented x3 Psych: COMMON NORMALS: mental status grossly normal Data 02/22/25 04:35 02/22/25 15:06 Micro: Microbiology 02/16/25 18:34 Blood Culture - Final Blood NO GROWTH AFTER 5 DAYS 02/16/25 18:08 Blood Culture - Final Blood NO GROWTH AFTER 5 DAYS A&P Assessment and plan (1) Hypertensive emergency: - Was briefly on Cardene drip now stopped - Patient has rapidly fluctuating, labile blood pressures, - Metoprolol, clonidine, hydralazine stopped, -She tells me that these frequently about blood pressures happen at home that is why her blood pressure medications are as needed -Given her paroxysmal blood pressures, palpitations, perspiration, pallor, highly suspicious for pheochromocytoma -Workup for pheochromocytoma pending - urine catecholamines, serum metanephrines -Renin level, aldosterone level -Renal artery ultrasound shows CONCLUSIONS Hemodynamically significant (>60% in severity) renal artery stenosis bilaterally. Recommend renal artery CTA to further assess renal arteries. - CT angiogram of the abdomen pelvis does not show evidence of renal artery stenosis or fibromuscular dysplasia - doxazosin today for alpha blockade increased to 3 times daily, added salt tablets, will consider beta-pepe based on progress - Given that she is on lithium at home will avoid JENNYFER or ARB's or thiazide diuretics due to risk of lithium toxicity - Patient does seem quite sensitive to calcium channel blockers, the Cardene drip her blood pressures drop (2) Syncope: - No strokelike symptoms - No patient was requiring slurring words, no focal weakness - No chest pain - Cardiac echo - Carotid ultrasound no acute findings - Will check orthostatic vitals once blood pressure stabilized (3) Chronic pain with drug dependence: - Continue home Dilaudid - Continue home Ativan (4) Acute cystitis: - Continue to Rocephin (5) Pheochromocytoma: Workup pending (6) Labile blood pressure: Improving (7) Shock liver: - Likely secondary to blood pressure fluctuations - CT angiogram of the abdomen pelvis with IV contrast within normal limits, no evidence of portal vein thrombus Plan She does also have transaminitis, potentially shock liver, related to her hypotensive episodes we will monitor Continue home Lamictal Continue home lithium Hypothyroidism, receives weekly levothyroxine injections, last dose was 400 mcg on Tuesday, TSH 51, Fe T4 within normal limits, spoke to Dr. Toure, levothyroxine 500 mcg IM once, 02/19/2025 Plan complete alpha blockade with at least 48 to 72 hours of alpha blockade with doxazosin, will consider beta-pepe continue chlorthalidone blood pressures tend to fluctuate, does have intermittent tachycardia will monitor resume her home Dilaudid, shock liver monitor LFTs PDMP PDMP Reviewed: Last Reviewed 02/20/25 09:03 by Christiano Marshall MD Attestations 2 Medical Necessity Statement*: Patient requires hospitalization for labile blood pressure, shock liver, pheochromocytoma Diagnoses Hypertensive emergency I16.1 Syncope R55 Chronic pain with drug dependence G89.29; F19.20 Acute cystitis N30.00 Pheochromocytoma D35.00 Labile blood pressure R09.89 Shock liver K72.00
--- NOTE | 2025-02-22 18:00 | PC.NURSE ---
Dr Marshall notified : unable to obtain orthostatic VS at this time. His reply: NO worries.
--- NOTE | 2025-02-22 18:00 | PC.NURSE ---
Report called to [facility]. Report given to NYA Joaquin. VSS. No issues today.
--- NOTE | 2025-02-22 18:20 | PC.NURSE ---
Pt requested to ambulate again. Ambulated her to her new room 251-1, using elevator too. Updated NYA Joaquin.
[2025-02-22 18:54] LABS: Calculated Total (E+NE) 30 mcg/24 h (26-121)
[2025-02-22] MEDS: sennosides 8.6 mg Tablet 17.2 MG PO (20:25)
[2025-02-22] MEDS: lithium carbonate 300 mg Capsule PO (20:25)
[2025-02-23] VITALS (7 sets, daily range): BP systolic 103–133; BP diastolic 70–97; PULSE 53–65; RESP 16–18; TEMP 36.3–36.6; O2SAT 96–97
[2025-02-23] MEDS: sodium chloride 0.9% 1,000 ML 75 ML IV (02:22)
[2025-02-23 05:00] LABS: Basophils # 0.1 10^3/uL (0.0-0.1); Basophils % 1.4 %; Eosinophils # 0.3 10^3/uL (0.0-0.8); Eosinophils % 6.6 %; Lymphocytes # 1.3 10^3/uL (0.8-4.8); Lymphocytes % 30.8 %; Mean Corpuscular Hemoglobin 27.8 pg (27-33); Mean Corpuscular Volume 92.6 fl (85-98); Mean Platelet Volume 11.2 fL (7.4-10.4); Monocytes # 0.4 10^3/uL (0.2-0.9); Monocytes % 8.7 %; Neutrophils # 2.19 10^3/uL (1.8-7.7); Neutrophils % 51.6 %; Nucleated Red Blood Cells % 0 %; Platelet Count 182 10^3/cmm (157-399); Red Blood Count 3.67 10^6/uL (3.85-5.65); Red Cell Distribution Width 14.2 % (12.1-15.1); White Blood Count 4.25 10^3/uL (3.29-11.43)
[2025-02-23 05:19] LABS: Alanine Aminotransferase 549 U/L (0-33); Albumin Level 3.9 g/dL (3.5-5.2); Alkaline Phosphatase 206 U/L (35-105); Anion Gap 17.6 (5-19); Aspartate Amino Transferase 228 U/L (0-32); Blood Urea Nitrogen 9 mg/dL (6-20); Calcium 9.2 mg/dL (8.5-10.5); Carbon Dioxide 24 mmol/L (22-29); Chloride 103 mmol/L (98-107); Globulin 2.7 g/dL (1.3-4.6); Glomerular Filtration Rate 53.2 mL/min (90-130); Glucose 158 mg/dL (65-115); Osmolality Calculated 294 mOsm/kg (285-295); Potassium 3.6 mmol/L (3.5-5.1); Sodium 141 mmol/L (136-145); Total Bilirubin 0.6 mg/dL (0.15-1.2); Total Protein 6.6 g/dL (6.6-8.7)
[2025-02-23] MEDS: allopurinol 300 mg Tablet PO (05:56)
[2025-02-23] MEDS: lithium carbonate 150 mg Capsule PO (05:57)
[2025-02-23] MEDS: LORazepam 1 mg Tablet PO (05:57)
[2025-02-23] MEDS: lamoTRIgine 100 mg Tablet 200 MG PO (05:57)
[2025-02-23] MEDS: heparin 5,000 unit/mL INJ 1 mL 5000 UNIT SUBCUT (08:42)
[2025-02-23] MEDS: fludrocortisone 0.1 mg Tablet 0.2 MG PO (08:42)
[2025-02-23] MEDS: sodium chloride 1 gm Tablet PO (08:42)
[2025-02-23] MEDS: predniSONE 5 mg Tablet 10 MG PO (08:43)
[2025-02-23] MEDS: lurasidone 80 mg Tablet 120 MG PO (10:44)
[2025-02-23] MEDS: doxazosin 1 mg Tablet PO (10:44)
--- NOTE | 2025-02-23 10:55 | P.DS_ITS ---
Discharge Providers Date of Admission: 02/16/25 21:08 Date of Discharge: February 23, 2025 Attending Provider at Admission: Gaye Stubbs MD Attending Provider at Discharge: Christiano Marshall MD Primary Care Provider: Michelle Rico Diagnoses at Discharge Discharge Diagnosis (1) Hypertensive emergency: Status: Acute (2) Syncope: Status: Acute (3) Chronic pain with drug dependence: Status: Acute (4) Acute cystitis: Status: Acute (5) Pheochromocytoma: Status: Acute (6) Labile blood pressure: Status: Acute (7) Shock liver: Status: Acute Reason for Visit Reason for Visit: unresponsive Hospital Course Hospital Course This is a 45-year-old female with a past medical history of labile hypertension, is on multiple psychotropic medications including lithium, who presents to [facility] due to hypertensive emergency and labile blood pressures Patient was admitted to [facility] for labile blood pressures, hypertensive emergency, shock - Patient was very sensitive to Cardene drips - Being on even a low-dose of Cardene at 5 mg with drop patient's systolic blood pressure over 100 points, at times patient's blood pressures were dropping to 60s over 40s - I would not recommend IV Cardene in the near future if patient comes in for hypertensive emergency - I did not try p.o. calcium channel pepe certainly they could be given a try - I did not place patient on any thiazide, JENNYFER or ARB as patient is on lithium chronically and hydrate risk of lithium toxicity - Patient's blood pressures were very difficult to control due to the erratic nature - She was also quite orthostatic and would have intermittent episodes of tachycardia with heart rates in the 150s - Typically how Nina would present is she would suddenly become tachycardic heart rates as high as 150s, she would be flushed, diaphoretic feeling nauseous, with systolic blood pressures over 200 and diastolic greater than 100 - And should be very sensitive to IV pushes of blood pressure medications, in addition to Cardene drip, such that her systolic blood pressure would drop over 100 points such that systolic blood pressure would be 60 and the diastolic would be 40 - Hello I got her blood pressures under control is that I have a very strong suspicion that she has pheochromocytoma - Although her urine studies say otherwise, are relatively negative, some of her serum plasmin free normetanephrine's and metanephrines were elevated, and they have been elevated in the past - Thus given my high suspicion for pheochromocytoma over the next 72 hours I started patient on alpha blockade, starting with Cardura 1 mg daily and increased it to 3 mg total daily - In addition at about 48 hours of alpha blockade initiation, increased her salt in her diet, and added on salt tablets - With this her fluctuation of her blood pressures have significantly stabilized - Her orthostatic hypotension has significantly stabilized - Her blood pressures were quite well-controlled with Cardura 1 mg 3 times daily, and salt tablets 1 g twice daily - She did at times have tachycardia episodes, I have been hesitant about putting her metoprolol, nonetheless after over 96 hours of alpha blockade, I have started her on metoprolol as needed for heart rate over 120 - Discussed with patient that if she were to use metoprolol it should be 12.5 mg twice daily and when she uses it is for heart rate greater than 120, she is symptomatic flushed, diaphoretic, reported palpitations, and she should use it while she is sitting down due to risk of orthostatic hypotension - Due to my high suspicion of pheochromocytoma, I have ordered a whole-body PET scan - Will have her follow-up with Dr. Toure as outpatient she might even need a Ga- 68 PET scan which I do not believe we do here at [facility], she might have to be referred to a tertiary center to do testing - Nonetheless patient feels significantly better on discharge, no significant orthostatic hypotension, her blood pressure lability has resolved, will have her follow-up with primary care provider - Discussed with patient to monitor blood pressures closely, check twice a day, - Discussed orthostatic hypotension in detail with patient, discussed morbidity mortality, she voiced understanding, all questions answered -Patient also had a workup for renal artery stenosis however her abdominal CTA was within normal limits - She has had 5 HIAA workup done in the past which was within normal limits - Her aldosterone/renin ratio, renin activity, aldosterone levels were relatively within normal range There has been concerns for adrenal insufficiency in the past, I resumed her home fludrocortisone, and after discussion with Dr. Toure, her prednisone was increased back to 10 mg daily, follow-up with Dr. Toure for adjustment as outpatient -As a result of her labile blood pressures she developed SHELTON which resolved -As a result of her labile blood pressure she developed shock liver, which is resolving on discharge however AST is 228, ALT 549 on discharge, she needs to follow-up with primary care provider as outpatient to monitor her LFTs, advised for patient to avoid alcohol. Discussed with patient morbidity mortality associate with shock liver, monitor her blood pressures closely, monitor orthostatics closely There was concern for lithium toxicity during hospitalization however her lithium levels were 0.5 - Lamictal levels are pending For her hypothyroidism, she received 500 mcg of levothyroxine IM during hospitalization after discussion with Dr. Toure, her T4 was monitored, follow-up with Dr. Toure next week to recheck TSH and T4 and further dosings of her IM levothyroxine Physical Exam Const: COMMON NORMALS: no acute distress and patient oriented x3 Resp: COMMON NORMALS: normal respiratory effort, No retractions, No use of accessory muscles and clear to auscultation bilaterally AUSCULTATION: clear to auscultation bilaterally Cardio: COMMON NORMALS: regular rate, regular rhythm, S1 normal heart sound present and S2 normal heart sound present RATE: regular rate RHYTHM: regular rhythm HEART SOUNDS: S1 normal heart sound present and S2 normal heart sound present GI: COMMON NORMALS: Normal to inspection, nondistended, normoactive bowel sounds present and non-tender Extremity: COMMON NORMALS: no pedal edema Neuro: COMMON NORMALS: patient oriented x3 Psych: COMMON NORMALS: mental status grossly normal Discharge Data Studies Completed and Pending Completed Studies During Hospitalization Category Date Time Status CT abdomen pelvis wo con [id number] Routine Cat Scan 02/17/25 10:[address] angio abdomen pelvis [id number] Routine Cat Scan 02/20/25 09:[address] head wo con* [id number] Stat Cat Scan 02/16/25 17:[address] hip RT wo con* [id number] Routine Cat Scan 02/17/25 10:34 Completed XR chest 1V portable [id number] Stat Exams 02/16/25 17:53 Completed CV carotid duplex BI* [id number] Routine Ultrasound 02/17/25 17:38 Completed US renal doppler [CV renal doppler [id number]] Routine Ultrasound 02/19/25 11:06 Completed Pending at discharge Category Date Time Status Catecholamines, Fraction Plasm Routine Lab 02/17/25 12:05 Received Lamotrigine (Lamictal) Level Routine Lab 02/21/25 08:26 Received CV. echo complete* [id number] Routine Ultrasound 02/17/25 22:52 Taken Radiology Impressions Chest X-Ray 02/16/25 17:53 IMPRESSION: No acute portable chest plain film findings. Head CT 02/16/25 17:53 IMPRESSION: No acute intracranial head CT findings identified. Abdomen/Pelvis CT 02/17/25 10:34 IMPRESSION: Constipation Hip CT 02/17/25 10:34 IMPRESSION: No acute findings. Carotid Doppler Study 02/17/25 17:38 IMPRESSION: No carotid arterial stenosis. REFERENCES: SRU CRITERIA. The degree of internal carotid artery stenosis is based on criteria defined by the Society of Radiologists in Ultrasound (SRU). Normal is no stenosis. Mild is less than 50% stenosis. Moderate is 50-69% stenosis. Severe is greater than 69% stenosis to near occlusion. Near occlusion is a markedly narrowed lumen. Total occlusion is no detectable patent lumen. Reference: Marybeth Guo et al. Carotid Artery Stenosis: Alarcon-Scale and Doppler US Diagnosis-Society of Radiologists in Ultrasound Consensus Conference. Radiology 2003; 229:340-346. Abdomen/Pelvis CTA 02/20/25 09:08 IMPRESSION: Widely patent bilateral renal arteries without evidence of stenosis or fibromuscular dysplasia. Laboratory Results WBC 4.25 10^3/uL (3.29-11.43) 02/23/25 04:43 RBC 3.67 10^6/uL (3.85-5.65) L 02/23/25 04:43 Hgb 10.20 g/dL (11.27-16.99) L 02/23/25 04:43 Hct 34.0 % (36-47) L 02/23/25 04:43 MCV 92.6 fl (85-98) 02/23/25 04:43 MCH 27.8 pg (27-33) 02/23/25 04:43 MCHC 30.0 g/dL (30-55) 02/23/25 04:43 RDW 14.2 % (12.1-15.1) 02/23/25 04:43 Plt Count 182 10^3/cmm (157-399) 02/23/25 04:43 MPV 11.2 fL (7.4-10.4) H 02/23/25 04:43 Neut % (Auto) 51.6 % 02/23/25 04:43 Lymph % (Auto) 30.8 % 02/23/25 04:43 Brooke % (Auto) 8.7 % 02/23/25 04:43 Eos % (Auto) 6.6 % 02/23/25 04:43 Baso % (Auto) 1.4 % 02/23/25 04:43 Neut # (Auto) 2.19 10^3/uL (1.8-7.7) 02/23/25 04:43 Lymph # (Auto) 1.3 10^3/uL (0.8-4.8) 02/23/25 04:43 Brooke # (Auto) 0.4 10^3/uL (0.2-0.9) 02/23/25 04:43 Eos # (Auto) 0.3 10^3/uL (0.0-0.8) 02/23/25 04:43 Baso # (Auto) 0.1 10^3/uL (0.0-0.1) 02/23/25 04:43 Nucleated RBC % (auto) 0 % 02/23/25 04:43 Nucleated RBCs # 0.0 /100WBC 02/23/25 04:43 ESR 6 mm/hr (0-15) 02/21/25 08:26 Specimen Type Arterial 02/16/25 18:03 Sample Site Radial, right 02/16/25 18:03 ABG pH 7.38 (7.35-7.45) 02/16/25 18:03 ABG pCO2 39.6 mmHg (35-45) 02/16/25 18:03 ABG pO2 90.5 mmHg (80.0-100.0) 02/16/25 18:03 ABG PO2/FiO2 Ratio 430 02/16/25 18:03 ABG HCO3 23.2 mmol/L (22-26) 02/16/25 18:03 ABG O2 Saturation 97.0 02/16/25 18:03 ABG Base Excess -1.8 mmol/L (-2.0-2.0) 02/16/25 18:03 Reagan Test Pos 02/16/25 18:03 A-a O2 Gradient 1.2 mmHg (5-10) L 02/16/25 18:03 Hematocrit 41.6 % (37-47) 02/16/25 18:03 Hgb O2 Saturation 96.2 % (95-100) 02/16/25 18:03 Carboxyhemoglobin 0.6 %THgb (0.4-20.1) 02/16/25 18:03 Methemoglobin 0.3 % (0.4-1.5) L 02/16/25 18:03 Total Hemoglobin 13.6 g/dL (12-16) 02/16/25 18:03 Sodium 141.0 mmol/L (131-143) 02/16/25 18:03 Potassium 4.7 mmol/L (3.5-5.0) 02/16/25 18:03 Glucose 82.0 mg/dL (70-115) 02/16/25 18:03 Ionized Calcium 1.2 mmol/L (1.1-1.4) 02/16/25 18:03 O2 Delivery Device Room air 02/16/25 18:03 FiO2 21.0 % 02/16/25 18:03 Industrial Twisting Machine Operator ID [email or web address] 02/16/25 18:03 Sodium 141 mmol/L (136-145) 02/23/25 04:43 Potassium 3.6 mmol/L (3.5-5.1) 02/23/25 04:43 Chloride 103 mmol/L (98-107) 02/23/25 04:43 Carbon Dioxide 24 mmol/L (22-29) 02/23/25 04:43 Anion Gap 17.6 (5-19) 02/23/25 04:43 BUN 9 mg/dL (6-20) 02/23/25 04:43 Creatinine 1.1 mg/dL (0.5-0.9) H 02/23/25 04:43 GFR Calculation 53.2 mL/min (90-130) L 02/23/25 04:43 Glucose 158 mg/dL (65-115) H 02/23/25 04:43 POC Glucose 157 mg/dL (70-110) H 02/17/25 00:48 Calculated Osmolality 294 mOsm/kg (285-295) 02/23/25 04:43 Lactic Acid 3.5 mmol/L (0.5-2.2) H 02/16/25 18:08 Lactic Acid (Sepsis) 1.5 mmol/L (0.5-2.2) 02/16/25 20:15 Calcium 9.2 mg/dL (8.5-10.5) 02/23/25 04:43 Iron 82 ug/dL (37-145) 02/21/25 08:26 Ferritin 401 ng/mL (15-150) H 02/21/25 08:26 Total Bilirubin 0.6 mg/dL (0.15-1.2) 02/23/25 04:43 GGT 202 U/L (5-36) H 02/21/25 08:26 AST 228 U/L (0-32) H 02/23/25 04:43 ALT 549 U/L (0-33) H 02/23/25 04:43 Alkaline Phosphatase 206 U/L (35-105) H 02/23/25 04:43 Troponin T Baseline 10 ng/L (0-10) 02/16/25 18:08 Troponin T 120 Minute 10.98 ng/L (0-10) H 02/16/25 20:15 Delta Troponin T 0.98 ABS# (0-10) 02/16/25 20:15 Troponin T Hi Sens 6Hr 10.79 ng/L (0-10) H 02/16/25 23:50 Troponin T Hi Sens 6Hr Delta 0.79 ng/L (0-12) 02/16/25 23:50 C-Reactive Protein 13.8 mg/L (0.0-4.9) H 02/21/25 08:26 NT-Pro-B Natriuret Pep 206 pg/mL (0-125) H 02/20/25 04:27 Total Protein 6.6 g/dL (6.6-8.7) 02/23/25 04:43 Albumin 3.9 g/dL (3.5-5.2) 02/23/25 04:43 Globulin 2.7 g/dL (1.3-4.6) 02/23/25 04:43 Lipase 19 U/L (13-60) 02/21/25 08:26 Renin Activity 0.64 ng/mL/h (0.25-5.82) 02/17/25 12:05 Aldosterone 1 ng/dL 02/17/25 12:05 Aldosterone/Renin Ratio 1.6 Ratio (0.9-28.9) 02/17/25 12:05 TSH 51.90 uIU/mL (0.27-4.20) H 02/18/25 04:04 Free T4 1.25 ng/dL (0.82-1.77) 02/20/25 04:27 Free T3 1.9 PG/ML (2.0-4.4) L 02/18/25 04:04 HCG, Qual Negative (Negative) 02/20/25 04:27 Random Cortisol 17.33 ug/dL (2.47-19.5) 02/16/25 23:50 Plasma Free Metaneph <25 pg/mL (<=57) 02/17/25 12:05 Plasma Free Normeta 216 pg/mL (<=148) H 02/17/25 12:05 Pls Totl Free Metaneph 216 pg/mL (<=205) H 02/17/25 12:05 Urine Color Yellow (Yellow) 02/16/25 19:14 Urine Appearance Cloudy (CLEAR) A 02/16/25 19:14 Urine pH 5.5 (5-7) 02/16/25 19:14 Ur Specific [place] 1.019 (1.005-1.030) 02/16/25 19:14 Urine Protein 1+ (Negative) A 02/16/25 19:14 Urine Glucose (UA) Negative (Normal) 02/16/25 19:14 Urine Ketones Negative (Negative) 02/16/25 19:14 Urine Blood Negative (Negative) 02/16/25 19:14 Urine Nitrate Negative (Negative) 02/16/25 19:14 Urine Bilirubin Negative (Negative) 02/16/25 19:14 Urine Urobilinogen 1.0 mg/dL (Negative) 02/16/25 19:14 Ur Leukocyte Esterase Negative (Negative) 02/16/25 19:14 Urine RBC 0-2 /hpf (0-2) 02/16/25 19:14 Urine WBC 11-20 /hpf (0-5) H 02/16/25 19:14 Ur Squamous Epith Cells 11-20 /hpf (0-5) H 02/16/25 19:14 Amorphous Sediment Not Reportable 02/16/25 19:14 Urine Bacteria 1+ /hpf (NONE) H 02/16/25 19:14 Hyaline Casts 23.98 /lpf 02/16/25 19:14 Fine Granular Casts 0-4 /lpf H 02/16/25 19:14 Coarse Granular Casts 0-4 /lpf H 02/16/25 19:14 Urine Mucus 1+ /hpf 02/16/25 19:14 Urine Total Volume 3200 mL/24 h 02/18/25 11:00 Urine Epinephrine see note 02/18/25 11:00 U Epineph & Norepi 24h 30 mcg/24 h (26-121) 02/18/25 11:00 Urine Norepinephrine 30 mcg/24 h (15-100) 02/18/25 11:00 Urine Dopamine 83 mcg/24 h (52-480) 02/18/25 11:00 Salicylates < 0.3 mg/dL (3-10) L 02/16/25 18:08 Urine Opiates Screen Positive ng/mL (Negative) H 02/16/25 19:14 Acetaminophen < 5.0 ug/mL (10-30) L 02/22/25 04:35 Ur Barbiturates Screen Negative ng/mL (Negative) 02/16/25 19:14 Ur Phencyclidine Scrn Negative ng/mL (Negative) 02/16/25 19:14 Ur Amphetamines Screen Negative ng/mL (Negative) 02/16/25 19:14 U Benzodiazepines Scrn Negative ng/mL (Negative) 02/16/25 19:14 [place] 0.5 mmol/L (0.6-1.2) L 02/21/25 08:26 Urine Cocaine Screen Negative ng/mL (Negative) 02/16/25 19:14 U Marijuana (THC) Screen Negative ng/mL (Negative) 02/16/25 19:14 Ethyl Alcohol < 10 mg/dL (0-10) 02/16/25 18:08 Hepatitis A IgM Ab Non-reactive (Nonreactive) 02/21/25 08:26 Hep Bs Antigen Non-reactive (Nonreactive) 02/21/25 08:26 Hep B Core IgM Ab Non-reactive (Nonreactive) 02/21/25 08:26 Hepatitis C Antibody Non-reactive (Nonreactive) 02/21/25 08:26 HIV 1&2 Ab & HIV 1 Ag Non-reactive (Non-Reactiv) 02/21/25 08:26 HIV 1&2 Antibody Non-reactive (Non-Reactiv) 02/21/25 08:26 Vitals Last Vital Signs Temp 97.6 F 02/23/25 07:32 Pulse 55 L 02/23/25 07:32 Resp 17 02/23/25 10:26 BP 120/82 02/23/25 07:32 Pulse Ox 97 02/23/25 07:32 O2 Del Method Room Air 02/23/25 04:00 Discharge Plan Discharge Patient Disposition: Home Condition: Stable Prescriptions: New doxazosin 1 mg Tablet 1 mg PO TID 30 Days Qty: 90 0RF prednisone 5 mg Tablet 10 mg PO DAILY 30 Days Qty: 60 0RF fludrocortisone 0.1 mg Tablet 0.2 mg PO DAILY 30 Days Qty: 60 0RF sodium chloride 1,000 mg Tablet,Soluble 1,000 mg PO BID 30 Days Qty: 60 0RF metoprolol tartrate 25 mg tablet 12.5 mg PO BID PRN (Reason: for hr>120,) 30 Days Qty: 30 0RF Continued hydromorphone [Dilaudid] 4 mg tablet 4 mg PO Q4H PRN (Reason: chronic pain) lamotrigine 200 mg tablet 200 mg PO QAM Qty: 30 11RF allopurinol 300 mg tablet 300 mg PO QAM lorazepam 2 mg tablet See Rx Instructions PO .COMPLEX Qty: 60 5RF Rx Instructions: Take one half tab (1mg) by mouth in AM and at noon, then take one tab (2mg) at bedtime lurasidone 120 mg tablet 120 mg PO DAILY Qty: 30 11RF Rx Instructions: must administer with food (at least 350 calories) lithium carbonate 150 mg capsule 150 mg PO QAM Qty: 30 11RF lithium carbonate 300 mg capsule 300 mg PO .qhs Qty: 30 11RF ondansetron 8 mg tablet,disintegrating 8 mg PO Q8H PRN (Reason: Nausea And Vomiting) promethazine 25 mg suppository 25 mg FL Q6H PRN (Reason: nausea and vomiting) Qty: 12 0RF Discontinued tizanidine 4 mg tablet 8 mg PO QID spironolacton-hydrochlorothiaz 25-25 mg tablet 1 tab PO DAILY PRN (Reason: elevated bp) telmisartan 80 mg tablet 40 mg PO DAILY PRN (Reason: prn bp elevation) hydralazine 50 mg tablet 50 mg PO TID PRN (Reason: Anxiety) prednisone 5 mg tablet 7.5 mg PO DAILY 30 Days Qty: 45 2RF clonidine HCl 0.2 mg tablet 0.2 mg PO 2XD PRN (Reason: elevated bp) prazosin 2 mg capsule 4 mg PO BID PRN (Reason: bp) levothyroxine 112 mcg tablet 112 mcg PO DAILY carvedilol 6.25 mg tablet 6.25 mg PO TID PRN (Reason: elevated hr and blood pressure) potassium chloride 20 mEq tablet,ER particles/crystals 20 meq PO DAILY Discharge Orders: Discharge Order (Routine); Ordered 02/23/25 Ordered By: Christiano Marshall Other Ambulatory Orders: PET skull to thigh INIT [id number] (Routine) Timeframe: 1 Day Facility: [facility] - Location: Radiology Ordered By: Christiano Marshall Referrals: Michelle Rico FNP [Primary Care Provider, Nurse Practitioner] Referral Note: We have notified your physician's clinic of the need for a follow-up appointment to be scheduled. If you have not heard from them within the next 2 business days, please call them directly. Rodolfo Chen M.D [Physician, Cardiology] - 1-3 days Referral Note: htn, tachycardia We have notified your physician's clinic of the need for a follow-up appointment to be scheduled. If you have not heard from them within the next 2 business days, please call them directly. Carol Toure MD [Physician, Endocrinology] - 1-3 days Referral Note: We have notified your physician's clinic of the need for a follow-up appointment to be scheduled. If you have not heard from them within the next 2 business days, please call them directly. Discharge Diet: Regular Discharge Activity: Resume usual activity Patient Instructions: Metoprolol (By mouth) (Lopressor, Toprol XL), Prednisone (By mouth), Doxazosin (By mouth), Fludrocortisone Acetate (By mouth), Sodium Chloride (By mouth), Hypertension, Urinary Tract Infection in Women (ED), Opioid Safety, Pain Management, Patient Portal & Braden Instructions Discharge Attestations Time Spent in Discharge Care*: greater than 30 min Status at Discharge: Cognitive status at discharge: cognitively intact , Behavioral status at discharge: cooperative , Quality Metrics Clinical Quality Measures [ No reported AMI, CVA or VTE this stay] Coding Level of Care Code Acute Code for Chg Fwd Diagnoses Hypertensive emergency I16.1 Syncope R55 Chronic pain with drug dependence G89.29; F19.20 Acute cystitis N30.00 Pheochromocytoma D35.00 Labile blood pressure R09.89 Shock liver K72.00
[2025-02-25 16:19] LABS: Lamotrigine (Lamictal) Level 3.8 mcg/mL (2.5-15.0)
== END 2025-02-23 12:18 | disposition home or self-care (01) | DRG 304 ==
LOC: ER 21:05 → ICU 21:59 → MEDSURG 02-22 18:11
PROVIDERS: Family Medicine; Admitting Provider Internal Medicine; Emergency Provider Emergency Medicine; PCP Nurse Practitioner Family; Visit Provider Family Medicine
DX: I16.0 Hypertensive urgency (principal); K72.00 Acute and subacute hepatic failure without coma; N30.00 Acute cystitis without hematuria; N17.9 Acute kidney failure, unspecified; I12.9 Hypertensive chronic kidney disease with stage 1 through stage 4 chronic kidney disease, or unspecified chronic kidney disease; N18.9 Chronic kidney disease, unspecified; K21.9 Gastro-esophageal reflux disease without esophagitis; G89.29 Other chronic pain; D35.00 Benign neoplasm of unspecified adrenal gland; E03.9 Hypothyroidism, unspecified; F31.9 Bipolar disorder, unspecified; Z86.711 Personal history of pulmonary embolism; Z79.899 Other long term (current) drug therapy
CPT/HCPCS: 36415; 36416; 36600; 70450; 71045; 73700; 74174; 74176; 80051; 80053; 80074; 80175; 80178; 80306; 80307; 81001; 82088; 82330; 82384; 82533; 82728; 82805; 82962; 82977; 83540; 83605; 83690; 83835; 83880; 84244; 84439; 84443; 84481; 84484; 84703; 85025; 85651; 86140; 87040; 87806; 93005; 93306; 93880; 93975; 96365; 96366; 96372; 96374; 96375; 96376; 99285; J0696; J1171; J1644; J2404; J2405; J2765; J3490; J7030; J7040; J7512; J9999; P9046

== ENCOUNTER 2025-02-22 09:30 | Oncology outpatient (recurring) (ONCR) | payer OTHER, SELFPAY ==
[2025-02-01 09:10] VITALS: BP 110/76; PULSE 83; RESP 16; TEMP 37; O2SAT 98
[2025-02-01] MEDS: levothyroxine 100 mcg SDV 400 MCG XX (09:32)
[2025-02-08] MEDS: levothyroxine 100 mcg SDV 400 MCG XX (10:01)
--- NOTE | 2025-02-08 10:10 | PC.NURSE ---
Gave patient injection in left gluteal muscle. charting did not give me an option to document injection site.
[2025-02-15] MEDS: levothyroxine 100 mcg SDV 400 MCG XX (09:19)
== END 2025-02-25 23:59 | disposition home or self-care (01) ==
PROVIDERS: PCP Nurse Practitioner Family; Visit Provider Internal Medicine
DX: Z53.9 Procedure and treatment not carried out, unspecified reason (principal)
CPT/HCPCS: 96372; J3490

== ENCOUNTER 2025-03-12 09:41 | Outpatient (CLI) | payer OTHER, SELFPAY ==
[2025-03-12 11:07] LABS: Free T4 Free Thyroxine 0.68 ng/dL (0.82-1.77)
== END 2025-03-12 09:42 | disposition home or self-care (01) ==
PROVIDERS: PCP Nurse Practitioner Family; Visit Provider Internal Medicine
DX: E03.9 Hypothyroidism, unspecified (principal)
CPT/HCPCS: 36415; 84439

== ENCOUNTER 2025-03-22 09:11 | Oncology outpatient (recurring) (ONCR) | payer OTHER, SELFPAY ==
[2025-02-28 10:48] VITALS: BP 127/81; PULSE 90; RESP 16; TEMP 36.3; O2SAT 96
[2025-03-08] MEDS: levothyroxine 200 mcg SDV 500 MCG IM (10:01)
--- NOTE | 2025-03-08 11:30 | PETR_ITS ---
PROCEDURE INFORMATION: Exam: PET/CT Skull Base to Mid-thigh Exam date and time: 03/08/2025 1:40 PM Age: 45 years old Clinical indication: Condition or disease; Condition/disease: Benign neoplasm of unspecified adrenal gland; Prior surgery; Surgery date: 6+ months; Surgery type: Gb, appy. Hysterectomy LABS AND CLINICAL REPORTS: Glucose: 129 mg/dl Treatment strategy for malignancy (PET staging): Initial Staging (PI) TECHNIQUE: Imaging protocol: Following at least four-hour fasting and following the injection of radiopharmaceutical, low dose CT images were obtained. Then, PET images were obtained. Attenuation corrected images were constructed using the CT scan. Fused images of PET and CT were reviewed. The standardized uptake values (SUV) reported below are maximum values within a region of interest, expressed in gm/ml. Exam includes orbital meatal line to mid-thigh. SUV normalization method: BodyWeight Radiopharmaceutical: 10.3 mCi F-18 FDG (Fluorodeoxyglucose), IV. Time of imaging post radiopharmaceutical administration: 44 minutes Injection site: right ac COMPARISON: 1. CT angio abdomen pelvis [id number] 02/20/2025 8:[address] abdomen pelvis wo con [id number] 02/17/2025 1:38 PM FINDINGS: Brain: Visualized brain has normal physiologic uptake. Pharynx: No abnormal uptake. Larynx: No abnormal uptake. Lungs, pleura and trachea: No abnormal uptake. Heart: Normal physiologic uptake. Mediastinal space: No abnormal uptake. Liver: No abnormal uptake. Gallbladder and biliary ducts: No abnormal uptake. Prior cholecystectomy. Pancreas: No abnormal uptake. Spleen: No abnormal uptake. Adrenal glands: No abnormal uptake. No mass. Kidneys and ureters: Normal physiologic uptake. Stomach and bowel: No abnormal uptake. Reproductive: The uterus is surgically absent. Vasculature: No abnormal uptake. Lymph nodes: No abnormal uptake. No lymphadenopathy in the head, neck, chest, abdomen, pelvis, and extremities. Skeleton: No abnormal uptake in the visualized axial and appendicular skeleton. Mild degenerative change along the spine. C4-C5 ACDF. Soft tissues: No abnormal uptake in the visualized head, neck, chest, abdomen, pelvis, and extremities. Small soft tissue density nodules at the bilateral lower ventral abdominal wall subcutaneous layer likely on the basis of prior injections. Mild posterior low back subcutaneous stranding may represent edema and/or postprocedural change. METRICS: Mediastinal blood pool: SUV mean 1.9 Liver uptake: SUV mean 2.2 PET/PET skull to thigh INIT [id number] IMPRESSION: No abnormal radiotracer uptake to suggest malignancy.
[2025-03-15] MEDS: levothyroxine 200 mcg SDV 550 MCG IM (09:39)
[2025-03-22] MEDS: levothyroxine 200 mcg SDV 550 MCG IM (09:30)
[2025-03-22 09:35] VITALS: BP 126/85; PULSE 68; RESP 16; TEMP 36.6; O2SAT 96
== END 2025-03-28 23:59 | disposition home or self-care (01) ==
PROVIDERS: PCP Nurse Practitioner Family; Visit Provider Internal Medicine
DX: E03.9 Hypothyroidism, unspecified (principal); Z79.899 Other long term (current) drug therapy
CPT/HCPCS: 78815; 96372; A9552; J0650; J3490

== ENCOUNTER 2025-03-27 09:47 | Outpatient (CLI) | payer OTHER, SELFPAY ==
[2025-03-27 10:40] LABS: Free T4 Free Thyroxine 0.91 ng/dL (0.82-1.77)
== END 2025-03-27 09:48 | disposition home or self-care (01) ==
PROVIDERS: Internal Medicine; PCP Nurse Practitioner Family; Visit Provider Internal Medicine Rheumatology
DX: E89.0 Postprocedural hypothyroidism (principal)
CPT/HCPCS: 36415; 84439

== ENCOUNTER 2025-04-01 15:55 | Outpatient (CLI) | payer OTHER, SELFPAY ==
[2025-04-01 16:53] LABS: Glucose Urine UA Negative (Normal); Nitrate Urine Negative (Negative)
[2025-04-01 16:59] LABS: Add Urine Microscopic? YES
[2025-04-01 17:25] LABS: Anion Gap 20.3 (5-19); Blood Urea Nitrogen 13 mg/dL (6-20); Calcium 9.5 mg/dL (8.5-10.5); Carbon Dioxide 21 mmol/L (22-29); Chloride 104 mmol/L (98-107); Glucose 125 mg/dL (65-115); Magnesium 2.2 mg/dL (1.7-2.3); Osmolality Calculated 294 mOsm/kg (285-295); Potassium 4.3 mmol/L (3.5-5.1); Sodium 141 mmol/L (136-145); Uric Acid 6.5 mg/dL (2.4-5.7)
[2025-04-01 17:28] LABS: Specific Gravity, Urine 1.034 (1.005-1.030)
[2025-04-01 17:29] LABS: UA Slide Review UA Slide Review Perf
[2025-04-01 17:47] LABS: Creatinine Urine, Random 488 mg/dL (28-217); Microalbum Creatinine Ratio Ur 10 mg/dL (0-20)
[2025-04-01 18:54] LABS: Calcium 9.7 mg/dL (8.5-10.5)
== END 2025-04-01 15:56 | disposition home or self-care (01) ==
PROVIDERS: PCP Nurse Practitioner Family; Visit Provider Internal Medicine
DX: I12.9 Hypertensive chronic kidney disease with stage 1 through stage 4 chronic kidney disease, or unspecified chronic kidney disease (principal); N18.31 Chronic kidney disease, stage 3a; R31.9 Hematuria, unspecified; M1A.9XX0 Chronic gout, unspecified, without tophus (tophi); Z79.899 Other long term (current) drug therapy
CPT/HCPCS: 36415; 80048; 81001; 82044; 82310; 83735; 83970; 84100; 84550

== ENCOUNTER 2025-04-18 01:30 | Observation (INO) | payer OTHER, SELFPAY ==
--- OUTSIDE RECORDS SUMMARY | 2025-02-11 10:10 | XMS_ITS ---
Author Organization [facility] Address [address] [place] [address] Care Team Providers Care Pet Counselor Name Role Phone Michelle Xavier Primary Care Provider Unav ailable Keke Arreaga Unavailable [phone] Thania Cardenas Unavailable [phone] REASON FOR VISIT 6-7 mo labs @ [facility] Encounters Encounter Location Date Provider Diagnosis [facility] [address] [place] [address] [address] [place] [address] 02/11/2025 Thania Cardenas Plan Of Treatment Next Appt Details Provider Name:Qasim Donis, 05/22/2025 10:20:00 AM, [address] [place], [address], Provider Name:Keke rodriguez, 10/04/2025 11:00:00 AM, [address] [place] [address] [address], [place], [address], Progress Notes * DENISSE VALENTINE KDOB: 8 (45 yo F)Acc No.[id number]:02/11/2025 Progress Notes Patient: Vijay ROUSE DENISSE Enriquez Provider: Heber Cardenas CNP :1980 A ge:45 Y S ex:Female Date:02/11/2025 Address:[address] [place] [address] [address], [place] Pcp:TORSTEN Stuart Subjective: * Chief Complaints: * 6 -7 mo labs @ [facility] Billing Information: * Procedure Codes: Care Plan Details* * Electronic signature of Geovany Cardenas CNP on 04/18/2025 at 01:37 AM CDT Sign off status: Pending * Provider: Heber Cardenas CNP Date: 02/11/2025 Generated for Fany dunaway/Shauna/Joycelyn on: 04/18/2025 01:37 AM CDT
--- OUTSIDE RECORDS SUMMARY | 2025-02-11 10:10 | XMS_ITS ---
Author Organization [facility] Address [address] [place] [address] Care Team Providers Care Supervisor Fabrication Department Name Role Phone Michelle Xavier Primary Care Provider Unav ailable Keke Arreaga Unavailable [phone] Thania Cardenas Unavailable [phone] REASON FOR VISIT 6-7 mo labs @ [facility] Encounters Encounter Location Date Provider Diagnosis [facility] [address] [place] [address] [address] [place] [address] 02/11/2025 Thania Cardenas Plan Of Treatment Next Appt Details Provider Name:Qasim Donis, 05/22/2025 10:20:00 AM, [address] [place], [address], Provider Name:Keke rodriguez, 10/04/2025 11:00:00 AM, [address] [place] [address] [address], [place], [address], Progress Notes * DENISSE VALENTINE KDOB: 8 (45 yo F)Acc No.[id number]:02/11/2025 Progress Notes Patient: Vijay ROUSE DENISSE Enriquez Provider: Heber Cardenas CNP :1980 A ge:45 Y S ex:Female Date:02/11/2025 Address:[address] [place] [address] [address], [place] Pcp:TORSTEN Stuart Subjective: * Chief Complaints: * 6 -7 mo labs @ [facility] Billing Information: * Procedure Codes: Care Plan Details* * Electronic signature of Geovany Cardenas CNP on 04/19/2025 at 12:15 PM CDT Sign off status: Pending * Provider: Heber Cardenas CNP Date: 0 02/11/2025 Generated for Fany dunaway/Shauna/Joycelyn on: 0 04/19/2025 12:15 PM CDT
--- OUTSIDE RECORDS SUMMARY | 2025-04-05 05:30 | XMS_ITS ---
Author Organization [facility] Address [address] [place] [address] Care Team Providers Care Business Systems Lead Name Role Phone TrishaMichelle Wharton Primary Care Provider Unav ailKeke Gallagher Unavailable [phone] Allergies Allergen (clinical drug ingredient) Drug/Non Drug Allergy documented on EMR Reaction Allergy Type Onset Date Status aspirin Aspirin , Drug Allergy Active Coconut Flavor Unknown Drug Allergy Ac tive meloxicam meloxicam , Drug Allergy Active meloxicam Mobic Unknown Drug Allergy Active ketorolac Ketorolac , Drug Allergy Active REASON FOR VISIT [id number] 6- Tue labs @ [facility] Medications Medication SIG (Take, Route, Frequency, Duration) Notes Start Date End Date Status Levothyroxine Sodium 112 MCG Capsule 1 tablet in the morning on an empty stomach Orally Once a day Not-Taking [place] Carbonate ER 450 MG Tablet Extended Release 1 tablet at bedtime Orally Once a day Active Lurasidone HCl 80 MG Tablet 1 tablet in the evening with food Orally Once a day Active Ozempic (0.25 or 0.5 MG/DOSE) 2 MG/1.5ML Solution Pen-injector as directed Subcutaneous weekly 0.5 mg weekly Not-Taking Prazosin HCl 2 MG Capsule 1 capsule at bedtime Orally Once a day Not-Taking Dilaudid 4 MG Tablet 1 tablet as needed Orally every 6 hrs 4 times a day Active lamoTRIgine 200 MG Tablet 1 tablet Orally Once a day Active Fludrocortisone Acetate 0.1 MG Tablet 1 tablet Orally Once a day Active Allopurinol 300 MG Tablet Take 1 tablet by mouth once daily; Duration: 30 Active Ativan 2 MG Tablet 1 tablet at bedtime as needed Orally Once a day Not-Taking Sodium Chloride Acti ve Promethazine HCl 25 MG/ML Solution as directed Injection Active predniSONE 5 MG/ML Concentrate 1 mL with food or milk Orally Once a day Active Ondansetron 8 MG Tablet Disintegrating 1 tablet on the tongue and allow to dissolve as needed Orally Once a day Active Metoprolol Tartrate 25 MG Tablet 1 tablet with food Orally Twice a day Active Zolpidem Tartrate 10 MG Tablet 1 tablet at bedtime as needed Orally Once a day Not-Taking Spironolactone-HCTZ 25-25 MG Tablet 1 tablet Orally Once a day Not-Taking Terazosin HCl 5 MG Capsule 1 capsule at bedtime Orally Twice a day; Duration: 30 days Active tiZANidine HCl 4 MG Tablet 1 tablet as needed Orally QID 2 Tablets, four times a day Active Social History Tobacco Use: Social History Observation Description Date Details (start date - stop date) Never Smoker NA - NA Social History Tobacco Use: Social Info Question Answer Notes xTobacco Use/Smoking Are you a nonsmoker Additional Details Category Social Info Options Details Miscellaneous: Marital status: Children: 4 : No serv ice Education High School Dipl avel Section Notes: Lifetime non-smoker Problems Problem Type SNOMED Code ICD Code Onset Dates Problem Status W/U Status Risk Notes Problem HTN (hypertension ), benign (I10) Active confirmed Vital Signs Temperature 97.2 degrees Fahrenheit 04/05/20 25 Blood pressure systolic 134 mm Hg 04/05/20 25 Blood pressure diastolic 99 mm Hg 025 Heart Rate 83 /min 04/05/2025 Height 65 in 04/05/2025 Weight 229.72 lbs 04/05/2025 BMI 38.22 kg/m2 04/05/2025 Oximetry 100 % 04/05/2025 Height-cm 165.1 cm 04/05/2025 Weight-kg 104.2 kg 04/05/2025 Encounters Encounter Location Date Provider Diagnosis [facility] [address] [place] [address] Dr Farmer [address] [place] [address] 04/05/2025 Keke Arreaga Hypertensive chronic kidney disease with stage 1 through stage 4 chronic kidney disease, or unspecified chronic kidney disease I12.9 ; Chronic kidney disease, stage 3a N18.31 ; HTN (hypertension), benign I10 ; Chronic gout without tophus, unspecified cause, unspecified site M1A.[id number] ; Hematuria, unspecified type R31.9 ; Hypokalemia E87.6 and Pharmacologic therapy Z79.899 Assessments Encounter Date Diagnosis (ICD Code) Assessment Notes Treatment Notes Treatment Clinical Notes Section Notes 04/05/2025 Hypertensive chronic kidney disease with stage 1 through stage 4 chronic kidney disease, or unspecified chronic kidney disease (ICD-10 - I12.9) CKD is improved. Hypertension is controlled; hypertension is exacerbated by pain. Gout is controlled. Hematuria is not detected and hypokalemia has resolved 04/05/2025 Chronic kidney disease, stage 3a (ICD-10 - N18.31) CKD is improved. Hypertension is controlled; hypertension is exacerbated by pain. Gout is controlled. Hematuria is not detected and hypokalemia has resolved 04/05/2025 HTN (hypertension), benign (ICD-10 - I10) CKD is improved. Hypertension is controlled; hypertension is exacerbated by pain. Gout is controlled. Hematuria is not detected and hypokalemia has resolved 04/05/2025 Chronic gout without tophus, unspecified cause, unspecified site (ICD-10 - M1A.9XX0) CKD is improved. Hypertension is controlled; hypertension is exacerbated by pain. Gout is controlled. Hematuria is not detected and hypokalemia has resolved 04/05/2025 Hematuria, unspecified type (ICD-10 - R31.9) CKD is improved. Hypertension is controlled; hypertension is exacerbated by pain. Gout is controlled. Hematuria is not detected and hypokalemia has resolved 04/05/2025 Hypokalemia (ICD-10 - E87.6) CKD is improved. Hypertension is controlled; hypertension is exacerbated by pain. Gout is controlled. Hematuria is not detected and hypokalemia has resolved 04/05/2025 Pharmacologic therapy (ICD-10 - Z79.899) CKD is improved. Hypertension is controlled; hypertension is exacerbated by pain. Gout is controlled. Hematuria is not detected and hypokalemia has resolved 04/05/2025 Other Dose medications for GFR less than 60 mL/minute. Avoid nephrotoxins, NSAIDs and IV contrast. Follow a low-sodium diet. Stay well hydrated. Risk factor modification. Continue current antihypertensives and monitor blood pressure daily with goal blood pressure less than 130/80. Strongly recommend that she record her pain scale her blood pressure log. Monitor hyperparathyroidism labs and microalbuminuria status. Follow-up with in [address] [facility] 5 to 10 days prior to appointment. BMP, mag, uric, phos, PTH, UA, microalbumin, creatinine The patient was instructed to follow up with their PCP for preventative health screenings. I am the scribe for Dr. Miller and I have documented sections of this chart - Deborah Toribio CKD is improved. Hypertension is controlled; hypertension is exacerbated by pain. Gout is controlled. Hematuria is not detected and hypokalemia has resolved Plan Of Treatment Treatment Notes Assessment Notes Other Dose medications for GFR less than 60 mL/minute. Avoid nephrotoxins, NSAIDs and IV contrast. Follow a low-sodium diet. Stay well hydrated. Risk factor modification. Continue current antihypertensives and monitor blood pressure daily with goal blood pressure less than 130/80. Strongly recommend that she record her pain scale her blood pressure log. Monitor hyperparathyroidism labs and microalbuminuria status. Follow-up with in [address] [facility] 5 to 10 days prior to appointment. BMP, mag, uric, phos, PTH, UA, microalbumin, creatinine Next Appt Details Provider Name:Qasim Donis, 05/22/2025 10:20:00 AM, [address] [place], [address], Provider Name:Keke rodriguez, 10/04/2025 11:00:00 AM, [address] [place] [address] Darian Esquivel [address], [place], [address], History and Physical Notes * HPI (History of Present Illness) Category Sub-Category Detail Notes Category Not es Provider Note The following is from my interview with the patient and review of provided records, which may include inpatient [facility] records. She is present with her . Mrs. Garcia is a 44-year-old white woman with uncontrolled hypertension and CKD returning for follow up. She was previously followed by Dr. Monreal. She reportedly has had CKD since 2012. I previously saw her in 05/2017 and her baseline creatinine was 1.1 at that time. Since 01/2021, she has had stage III CKD (except for a solitary creatinine of 1.1 on 10/18/22); CKD is secondary to hypertension +/- lithium. Her creatinine was 1.2 in 11/2022, 1.3 in 04/2023, 1.1 in 11/2023, and 1.1 in 12/2023. She has been hospitalized for hypotension twice. Her creatinine on 05/25/24 (pre-op lab for shoulder surgery) was 1.8. Her creatinine improved to 1.5 on 06/21 and her last creatinine was 1.3 on 07/05/24. She reports urinary frequency and incontinence but no acute urinary complaints. Her UA showed no blood or protein. Since she was about 32-33 years old, she has had hypertension. She has had multiple hospitalizations for uncontrolled hypertension and, recently, for hypotension. She has been evaluated for pheochromocytoma and has had positive lab values. Her MIBG scan was negative. Repeat urinary studies on 09/2022 revealed only a mildly elevated free normetanephrine. In clinic today, her blood pressure is 151/106 with a pulse of 92. At home she repots her blood pressure ranges from 97/80-150/100. She takes prazosin 2 mg nightly and spironolactone/HCTZ 25/25 mg once every morning. She has chronic pain and takes Dilaudid at home every 6 hours as needed. She has not been recording her pain levels when she takes her BP. She reports eating a low-sodium diet and does not use any NSAIDs. She denies chest pain, shortness of breath and edema, but she does complain of palpitations. Her potassium and magnesium levels were normal; she is taking no potassium or magnesium supplements. She has gout and takes allopurinol 300 mg daily and 100mg at HS. Her last uric acid was 7.2 on 07/02/24. Denies any recent flareups of gout. Her last A1c was 6% on May 06. The same day, her TSH was 85.5. Her levothyroxine was increased to 175 mcg daily. She is on ozempic. She had neck surgery by Dr. Lopes on 11/2022. Comorbidities: HTN, type II DM Associated factors: None known Aggravating factors: Long-term lithium use Laboratory Data: 04/01/2025: 141, 4.3, 104, 21, 13, 1.3, glucose 125, calcium 9.5, PTH 45.7, phosphorus 3.9, magnesium 2.2, uric acid 6.5, UA shows protein 1+, bacteria 4+, UACR 0.01 mg/g 06/27/2024: 138, 3.6, 96, 26, 19, 1.3, glucose 148, calcium 9.4, magnesium 2.0, albumin 5.2, Hgb 14.2. UA showed no blood or protein 06/21/2024: 137, 5.2, 100, 28, 22, 1.5, glucose 151, calcium 8.6, phosphorus 4.4, magnesium 2.3, uric acid 4.9, albumin 4.3, Hgb 11.7. UA showed no blood, 1+ protein, 3+ bacteria. UPC 0.25 g/gram 05/25/2024: Creatinine 1.88 12/28/2023: 137, 4.3, 103, 26, 11, 1.1, glucose 127, calcium 8.9, albumin 4.2, A1c 5.7%. UA showed no blood or protein 12/16/2023: 140, 3.1, 98, 32, 14, 1.1, glucose 75, calcium 9.2, phosphorus 3.3, magnesium 2.0, uric acid 7.2, urine protein 1+, urine blood 2+, urine bacteria 3+, urine mucus trace 05/06/2023: 138, 4.9, 102, 26, 6, 1.3, glucose 285, calcium 9.4, PTH 34.8, Vitamin D 33, phosphorus 2.7, magnesium 2.2, uric acid 4.3, albumin 4.8, T. bili 0.5, TSH 85.51, A1c 6%. UA showed no blood, protein, or evidence of infection. UPC < 0.1 g/gram. Urine microalbumin/creatinine 5 mg/grams 12/22/2022: Creatinine 1.25 12/13/2022: Creatinine 1.23 10/18/2022: 137, 4, 102, 24, 8, 1.1, glucose 72, calcium 9, albumin 4.2, TSH 46.23. Urine microalb/cr 0.03 mg/gram 10/07/2022: Urinary free metanephrine 43, free urinary normetanephrine 219, free total metanephrines 262 09/15/2022: 139, 3.6, 102, 26, 9, 1.2, glucose 100, calcium 9.5, PTH 81.7, phosphorus 3.0, magnesium 2.3, uric acid 9.2, albumin 4.5, hgb 13.3, UPC 0.1 g/gram 05/24/2022: 138, 3.3, 98, 27, 10, 1.5, glucose 102, calcium 9.7, PTH 36.5, mag 1.9, uric acid 6.7, albumin 4.4, hgb 13.6, UA 2+ blood and negative protein 05/19/2022: 136, 3.5, 99, 23, 22, 2.8, glucose 128, calcium 9.6 03/09/2022: 139, 4.8, 105, 23, 11, 1.24, glucose 91, calcium 9 12/22/2021:136, 3.6, 97, 20, 22.6, 6, 1.6, glucose 177, calcium 9.4, albumin 5.2, hgb 16 01/30/2021: 141, 3.7, 101, 20, 9, 1.38, glucose 94, calcium 9.6 04/19/2020: 139, 4.2, 103, 29, 8, 0.87, glucose 93, calcium 9.1 Examination Category Sub-Category Detail Notes Category Not es Examination GENERAL APPEARANCE: alert, well hydrated, white woman in no distress, converses well. EYES: extraocular movement intact (EOMI); sclera anicteric. ABDOMEN: bowel sounds present , soft, nontender, nondistended. EXTREMITIES: No edema. NEUROLOGIC: cranial nerves 2-12 grossly intact; nonfocal. PSYCHIATRIC: cognitive function i ntact; good eye contact; judgment and insight good; mood/affect full range. LUNGS: Respirations even an d non-labored; no wheezes; no increased work of breathing. Progress Notes * DENISSE GARCIA KDOB: [birth year] (45 yo F)Acc No.[id number]:04/05/2025 Progress Notes Patient: DENISSE PANG Provider: Dionna Arreaga CNP :1980 A ge:45 Y S ex:Female Date:04/05/2025 Address:[address] [place], [place] [id number] Pcp:TORSTEN Stuart Check Out:10:48 AM [facility] Subjective: * Chief Complaints: * [id number] 6- 7 mon labs @ [facility] * HPI: Petey mcintyre Note: The following is from my interview with the patient and review of provided records, which may include inpatient [facility] records. She is present with her . Mrs. Garcia is a 44-year-old white woman with uncontrolled hypertension and CKD returning for follow up. She was previously followed by Dr. Monreal. She reportedly has had CKD since 2012. I previously saw her in 05/2017 and her baseline creatinine was 1.1 at that time. Since 01/2021, she has had stage III CKD (except for a solitary creatinine of 1.1 on 10/18/22); CKD is secondary to hypertension +/- lithium. Her creatinine was 1.2 in 11/2022, 1.3 in 04/2023, 1.1 in 11/2023, and 1.1 in 12/2023. She has been hospitalized for hypotension twice. Her creatinine on 05/25/24 (pre-op lab for shoulder surgery) was 1.8. Her creatinine improved to 1.5 on 06/21 and her last creatinine was 1.3 on 07/05/24. She reports urinary frequency and incontinence but no acute urinary complaints. Her UA showed no blood or protein. Since she was about 32-33 years old, she has had hypertension. She has had multiple hospitalizations for uncontrolled hypertension and, recently, for hypotension. She has been evaluated for pheochromocytoma and has had positive lab values. Her MIBG scan was negative. Repeat urinary studies on 09/2022 revealed only a mildly elevated free normetanephrine. In clinic today, her blood pressure is 151/106 with a pulse of 92. At home she repots her blood pressure ranges from 97/80-150/100. She takes p razosin 2 mg nightly and spironolactone/HCTZ 25/25 mg once every morning. She has chronic pain and takes Dilaudid at home every 6 hours as needed. She has not been recording her pain levels when she takes her BP. She reports eating a low-sodium diet and does not use any NSAIDs. She denies chest pain, shortness of breath and edema, but she does complain of palpitations. Her potassium and magnesium levels were normal; she is taking no potassium or magnesium supplements. She has gout and takes allopurinol 300 mg daily and 100mg at HS. Her last uric acid was 7.2 on 07/02/24. Denies any recent flareups of gout. Her last A1c was 6% on May 06. The same day, her TSH was 85.5. Her levothyroxine was increased to 175 mcg daily. She is on ozempic. She had neck surgery by Dr. Lopes on 11/2022. Comorbidities: HTN, type II DM Associated factors: None known Aggravating factors: Long-term lithium use Laboratory Data: 04/01/2025: 141, 4.3, 104, 21, 13, 1.3, glucose 125, calcium 9.5, PTH 45.7, phosphorus 3.9, magnesium 2.2, uric acid 6.5, UA shows protein 1+, bacteria 4+, UACR 0.01 mg/g 06/27/2024: 138, 3.6, 96, 26, 19, 1.3, glucose 148, calcium 9.4, magnesium 2.0, albumin 5.2, Hgb 14.2. UA showed no blood or protein 06/21/2024: 137, 5.2, 100, 28, 22, 1.5, glucose 151, calcium 8.6, phosphorus 4.4, magnesium 2.3, uric acid 4.9, albumin 4.3, Hgb 11.7. U A showed no blood, 1+ protein, 3+ bacteria. UPC 0.25 g/gram 05/25/2024: Creatinine 1.88 12/28/2023: 137, 4.3, 103, 26, 11, 1.1, glucose 127, calcium 8.9, albumin 4.2, A1c 5.7%. UA showed no blood or protein 12/16/2023: 1 40, 3.1, 98, 32, 14, 1.1, glucose 75, calcium 9.2, phosphorus 3.3, magnesium 2.0, uric acid 7.2, urine protein 1+, urine blood 2+, urine bacteria 3+, urine mucus trace 05/06/2023: 138, 4.9, 102, 26, 6, 1.3, glucose 285, calcium 9.4, PTH 34.8, Vitamin D 33, phosphorus 2.7, magnesium 2.2, uric acid 4.3, albumin 4.8, T. bili 0.5, TSH 85.51, A1c 6%. UA showed no blood, protein, or evidence of infection. UPC < 0.1 g/gram. Urine microalbumin/creatinine 5 mg/grams 12/22/2022: Creatinine 1.25 12/13/2022: Creatinine 1.23 10/18/2022: 137, 4, 102, 24, 8, 1.1, glucose 72, calcium 9, albumin 4.2, TSH 46.23. Urine microalb/cr 0.03 mg/gram 10/07/2022: Urinary free metanephrine 43, free urinary normetanephrine 219, free total metanephrines 262 09/15/2022: 139, 3.6, 102, 26, 9, 1.2, glucose 100, calcium 9.5, PTH 81.7, phosphorus 3.0, magnesium 2.3, uric acid 9.2, albumin 4.5, hgb 13.3, UPC 0.1 g/gram 05/24/2022: 138, 3.3, 98, 27, 10, 1.5, glucose 102, calcium 9.7, PTH 36.5, mag 1.9, uric acid 6.7, albumin 4.4, hgb 13.6, UA 2+ blood and negative protein 05/19/2022: 136, 3.5, 99, 23, 22, 2.8, glucose 128, calcium 9.6 03/09/2022: 139, 4.8, 105, 23, 11, 1.24, glucose 91, calcium 9 12/22/2021:136, 3.6, 97, 20, 22.6, 6, 1.6, glucose 177, calcium 9.4, albumin 5.2, hgb 16 01/30/2021: 141, 3.7, 101, 20, 9, 1.38, glucose 94, calcium 9.6 04/19/2020: 139, 4.2, 103, 29, 8, 0.87, glucose 93, calcium 9.1. * ROS: R jazmynwed and scanned in chart. * Medical History: Bipolar Cervical disc disorder Chronic intractable migraine without aura Chronic kidney disease stage 2 Conduction disorder of the heart Fracture of transverse process of lumbar vertebra Gastroesophageal reflux disease Hyperthyroidism (resolved with thyroidectomy) Increased frequency of urination Intervertebral disc disorder of cervical region with myelopathy Lumbosacral radiculopathy Malignant hypertension Palpitations Paresthesia of lower extremity Peptic ulcer Post-laminectomy syndrome Somatoform disorder Tachycardia Thyroid nodule Diabetes Myocardial infarction Gout Chicken Pox Pneumonia Arthritis Bladder infections Migraine headaches Back Trouble High Blood Pressure Low Blood Pressure Diabetes unspecified Medical History Verified * Surgical History: cardiac catheterization ovaries removed bladder surgery thyroid removed disc replaced in neck polyps in colon removed hysterectomy cholecystectomy appendectomy Back 2021 Removal of anterior cervical instrumentation at C5-6 and anterior cervical discectomy and fusion, C4-5 12/22/22 Arthroscopy, left shoulder. Arthroscopic debridement, intratendinous tear, subscapularis tendon, left shoulder. 05/30/2024 Surgical History verified. * Hospitalization/Major Diagno stic Procedure: see surgical Hospitalization Verified. * Family History: F ather: 64 yrs, hypertension. M other: 62 yrs, diabetes. S iblings: 43 yrs, diabetes. F amily History Verified.. * Social History: T obacco Use: x Tobacco Use/Smoking A re you a n onsmoker M iscellaneous: E ducation: High School Diploma. Children: 4. Marital status: . : No service. S ocial History Verified. L ifetime non-smoker. * Medications: T akingAllopurinol 300 MG Tablet Take 1 tablet by mouth once daily Dilaudid 4 MG Tablet 1 tablet as needed Orally every 6 hrs , Notes to Pharmacist: 4 times a daylamoTRIgine 200 MG Tablet 1 tablet Orally Once a day [place] Carbonate ER 450 MG Tablet Extended Release 1 tablet at bedtime Orally Once a day Lurasidone HCl 80 MG Tablet 1 tablet in the evening with food Orally Once a day Terazosin HCl 5 MG Capsule 1 capsule at bedtime Orally Twice a day tiZANidine HCl 4 MG Tablet 1 tablet as needed Orally QID , Notes to Pharmacist: 2 Tablets, four times a dayFludrocortisone Acetate 0.1 MG Tablet 1 tablet Orally Once a day Metoprolol Tartrate 25 MG Tablet 1 tablet with food Orally Twice a day Ondansetron 8 MG Tablet Disintegrating 1 tablet on the tongue and allow to dissolve as needed Orally Once a day predniSONE 5 MG/ML Concentrate 1 mL with food or milk Orally Once a day Promethazine HCl 25 MG/ML Solution as directed Injection Sodium Chloride Taking Allopurinol 300 MG Tablet Take 1 tablet by mouth once daily Taking Dilaudid 4 MG Tablet 1 tablet as needed Orally every 6 hrs , Notes to Pharmacist: 4 times a dayTaking lamoTRIgine 200 MG Tablet 1 tablet Orally Once a day Taking [place] Carbonate ER 450 MG Tablet Extended Release 1 tablet at bedtime Orally Once a day Taking Lurasidone HCl 80 MG Tablet 1 tablet in the evening with food Orally Once a day Taking Terazosin HCl 5 MG Capsule 1 capsule at bedtime Orally Twice a day Taking tiZANidine HCl 4 MG Tablet 1 tablet as needed Orally QID , Notes to Pharmacist: 2 Tablets, four times a dayTaking Fludrocortisone Acetate 0.1 MG Tablet 1 tablet Orally Once a day Taking Metoprolol Tartrate 25 MG Tablet 1 tablet with food Orally Twice a day Taking Ondansetron 8 MG Tablet Disintegrating 1 tablet on the tongue and allow to dissolve as needed Orally Once a day Taking predniSONE 5 MG/ML Concentrate 1 mL with food or milk Orally Once a day Taking Promethazine HCl 25 MG/ML Solution as directed Injection Taking Sodium Chloride Not-TakingAtivan 2 MG Tablet 1 tablet at bedtime as needed Orally Once a day Levothyroxine Sodium 112 MCG Capsule 1 tablet in the morning on an empty stomach Orally Once a day Ozempic (0.25 or 0.5 MG/DOSE) 2 MG/1.5ML Solution Pen-injector as directed Subcutaneous weekly , Notes to Pharmacist: 0.5 mg weeklyPrazosin HCl 2 MG Capsule 1 capsule at bedtime Orally Once a day Spironolactone-HCTZ 25-25 MG Tablet 1 tablet Orally Once a day Zolpidem Tartrate 10 MG Tablet 1 tablet at bedtime as needed Orally Once a day Medication List reviewed and reconciled with the patientNot-Taking Ativan 2 MG Tablet 1 tablet at bedtime as needed Orally Once a day Not-Taking Levothyroxine Sodium 112 MCG Capsule 1 tablet in the morning on an empty stomach Orally Once a day Not-Taking Ozempic (0.25 or 0.5 MG/DOSE) 2 MG/1.5ML Solution Pen-injector as directed Subcutaneous weekly , Notes to Pharmacist: 0.5 mg weeklyNot-Taking Prazosin HCl 2 MG Capsule 1 capsule at bedtime Orally Once a day Not-Taking Spironolactone-HCTZ 25-25 MG Tablet 1 tablet Orally Once a day Not-Taking Zolpidem Tartrate 10 MG Tablet 1 tablet at bedtime as needed Orally Once a day Medication List reviewed and reconciled with the patient * Allergies: K etorolac: , - AllergyAspirin: , - Allergymeloxicam: , - AllergyMobic: AllergyCoconut Flavor: AllergyyesAllergies Verified. Objective: * Vitals: H t: 65 in, Wt:229.72lbs, Wt-k.2 kg, BMI:38.22Index, Temp:97.2F, BP:134/99mm Hg, HR:83/min, Oxygen sat %:100%, O2 Source: RA, Ht-cm: 165.1 cm. * Examination: E xamination: GENERAL APPEARANCE: a lert, well hydrated, white woman in no distress, converses well. . EYES: e xtraocular movement intact (EOMI); sclera anicteric. . LUNGS: R espirations even and non-labored; no wheezes; no increased work of breathing. . ABDOMEN: b owel sounds present, soft, nontender, nondistended. . EXTREMITIES: N o edema. . NEUROLOGIC: c ranial nerves 2-12 grossly intact; nonfocal. . PSYCHIATRIC: c ognitive function intact; good eye contact; judgment and insight good; mood/affect full range.?. Assessment: * Assessment: 1. H ypertensive chronic kidney disease with stage 1 through stage 4 chronic kidney disease, or unspecified chronic kidney disease - I12.9 (Primary) 2 . C hronic kidney disease, stage 3a - N18.31 3 . H TN (hypertension), benign - I10 4 . Chronic gout without tophus, unspecified cause, unspecified site - M1A.9XX0 5 .?Hematuria, unspecified type - R31.9 6 . H ypokalemia - E87.6 ?7. P harmacologic therapy - Z79.899 CKD is improved. Hypertensio n is controlled; hypertension is exacerbated by pain. Gout is controlled. Hematuria is not detected and hypokalemia has resolved Plan: * Treatment: * Procedure Codes: 3 075F SYST BP GE 130 - 139MM HG Billing Information: * Procedure Codes: 3075F SYST BP GE 130 - 139MM HG. Care Plan Details* * Electronic signature of Rodo Arreaga CNP on 04/19/2025 at 12:15 PM CDT Sign off status: Pending * Provider: Dionna Arreaga CNP Date: 0 04/05/2025 Generated for Fany dunaway/Shauna/Joycelyn on: 0 04/19/2025 12:15 PM CDT
--- OUTSIDE RECORDS SUMMARY | 2025-04-05 05:30 | XMS_ITS ---
Author Organization [facility] Address [address] [place] [address] Care Team Providers Care Boat Laborer Name Role Phone Trisha Michelle SARMIENTO Primary Care Provider Unav ailable Keke Arreaga Unavailable [phone] Allergies Allergen (clinical drug ingredient) Drug/Non Drug Allergy documented on EMR Reaction Allergy Type Onset Date Status Information temporarily unavailable Aspirin , Drug Allergy Active Information temporarily unavailable Coconut Flavor Unknown Drug Allergy Active Information temporarily unavailable meloxicam , Drug Allergy Active Information temporarily unavailable Mobic Unknown Drug Allergy Active Information temporarily unavailable Ketorolac , Drug Allergy Active REASON FOR VISIT [id number] 6- Tue labs @ [facility] Medications Medication SIG (Take, Route, Frequency, Duration) Notes Start Date End Date Status Levothyroxine Sodium 112 MCG Capsule 1 tablet in the morning on an empty stomach Orally Once a day Not-Taking Sunny [place] Carbonate ER 450 MG Tablet Extended Release [...] Problem Status W/U Status Risk Notes Problem Information temporarily unavailable HTN (hypertensi on), benign (I10) Active confirmed Vital Signs Temperature 97.2 degrees Fahrenheit 04/05/20 25 Blood pressure systolic 134 mm Hg 04/05/20 25 Blood pressure diastolic 99 mm Hg 025 Heart Rate 83 /min 04/05/2025 Height 65 in 04/05/2025 Weight 229.72 lbs 04/05/2025 BMI 38.22 kg/m2 04/05/2025 Oximetry 100 % 04/05/2025 Height-cm 165.1 cm 04/05/2025 Weight-kg 104.2 kg 04/05/2025 Encounters Encounter Location Date Provider Diagnosis Formerly [facility] [address] [place] [address] [address] [place] [address] 04/05/2025 Keke Arreaga Hypertensive chronic kidney disease [...] with in 6 months with labs at [facility] 5 to 10 days prior to appointment. [...] with in 6 months with labs at [facility] 5 to 10 days prior to appointment. BMP, mag, uric, phos, PTH, UA, microalbumin, creatinine Next Appt Details Provider Name:Qasim Donis, 05/22/2025 10:20:00 AM, [address] [place], [address], Provider Name:Keke rodriguez, 10/04/2025 11:00:00 AM, [address] [place] [address] [address], [place], [address], History and Physical Notes * HPI (History of Present Illness) Category Sub-Category Detail Notes Category Not es Provider Note The following is from my interview with the patient and review of provided records, which may include inpatient [facility] records. She is present with her . [...] DENISSE GARCIA KDOB: [birth year] (45 yo F)Acc No.[id number]:04/05/2025 Progress Notes Patient: Vijay MONADENISSE BAL Provider: iDonna Arreaga, INOCULATOR :1980 A ge:45 Y S ex:Female Date:04/05/2025 Address:[address] [place], [place] [id number] Pcp:TORSTEN Stuart Check Out:10:48 AM COORDINATOR OF REHABILITATION SERVICES Subjective: * Chief Complaints: * [phone] [id number] 6- 7 mon labs @ [facility] * HPI: Petey mcintyre Note: The following is from my interview with the patient and review of provided records, which may include inpatient [facility] records. She is present with her . [...] glucose 93, calcium 9.1. * ROS: R roniewed and scanned in chart. * Medical History: [...] Tablet 1 tablet Orally Once a day Sunny Slopes Carbonate ER 450 MG Tablet Extended Release [...] 1 tablet Orally Once a day Taking Sunny [place] Carbonate ER 450 MG Tablet Extended Release [...] Care Plan Details* * Electronic signature of oRdo Arreaga CNP on 04/18/2025 at 01:37 AM CDT Sign off status: Pending * Provider: Dionna Arreaga CNP Date: 04/05/2025 Generated for Fany dunaway/Shauna/Danielleitting on: 04/18/2025 01:37 AM CDT
[2025-04-18] VITALS (48 sets, daily range): BP systolic 81–222; BP diastolic 54–149; PULSE 75–142; RESP 18–22; TEMP 36.7–36.9; O2SAT 55–99; BMI 34.9
--- OUTSIDE RECORDS SUMMARY | 2025-04-18 01:36 | XMS_ITS | Encounter Summary ---
Author Organization [facility] [employer] Address [address] [place] [address] Phone Care Team Providers Care Dry Yard Worker Name Role Phone Michelle Rico TORSTEN Primary Care Provider Encounter Details Date Type Department Care Team (Late st Contact Info) Description 11/12/2020 [facility] [employer] [address] [place] [address] Josseline Wong NP [address] [place] [address] Stage 3 chronic kidney disease (HCC) Social History Tobacco Use Types Packs/Day Years Used Date Smoking Tobacco: Never Smokeless Tobacco: Never Alcohol Use Standard Drinks/Week Comments Never 0 (1 standard drink = 0.6 oz pur e alcohol) AUDIT-C Answer Date Recorded Q1: How often do you have a drink containing alc ohol? Never 09/26/2019 Average Number of Drinks Not on file 020 Frequency of Binge Drinking Not on file 08/30 Comments Unknown Sex and Gender Information Value Date Recorded Sex Assigned at Not on file Legal Sex Female 11:25 AM EDT Gender Identity Not on file Sexual Orientation Not on file documented as of this encounter Plan of Treatment Not on file documented as of this encounter Procedures Procedure Name Priority Date/Time Associated Diagnosis Comments PROTEIN / CREATININE RATIO, URINE Routine 12/09/2020 3:16 PM CDT Stage 3 chronic kidney disease (HCC) VITAMIN D 25 HYDROXY Routine 12/09/2020 3:16 PM CDT Stage 3 chronic kidney disease (HCC) CBC Routine 12/09/2020 3:16 PM CDT Stage 3 chronic kidney disease (HCC) PTH, INTACT Routine 12/09/2020 3:16 PM CDT Stage 3 chronic kidney disease (HCC) RENAL FUNCTION PANEL Routine 12/09/2020 3:16 PM CDT Stage 3 chronic kidney disease (HCC) documented in this encounter Results * (ABNORMAL) Protein / creatinine ratio, urine (12/09/2020 3:16 PM CDT) Pathologist [facility] Protein, Ur 51(H) 0 - 20 mg/dL [facility] Creatinine, Urine 347.9(H) 29.0 - 226.0 mg/dL [facility] Comment:Reference Range vari es with fluid intake and diet. Protein/Creatin ine Ratio, Urine 0.15 0.00 - 0.19 mg/mg Creatinine [facility] Comment: Specimen Source: Urine, unspecified source Performed at: [place] [address] Electric Switch Tester: German Casey MD [facility] # [id number] Urine Urine specimen / Unknown 12/09/2020 3:16 PM CDT 12/09/2020 5:07 PM CDT Josseline Wong VETERINARY X RAY OPERATOR LAB URINE ORDERABLES Millicent l Result [facility] * (ABNORMAL) Vit D 25 hydroxy (12/09/2020 3:16 PM CDT) Pathologist [facility] Vitamin D, 25-Hydroxy 22(L) 30 - 100 ng/mL [facility] Comment: Interpretive Data Chart: Deficient: 0 - 20 ng/mL Insufficient: 21 - 29 ng/mL Sufficient: 30 - 100 ng/mL Increased Risk of Hypercalciuria: >100 ng/ml Toxic: >150 ng/ml Performed at: [facility] [employer] [place] [address] [place] [address] Electric Switch Tester: German Casey MD CLIA # [id number] Blood 12/09/2020 3:16 PM CDT 12/09/2020 5:07 PM CDT Josseline Wong VETERINARY X RAY OPERATOR LAB BLOOD ORDERABLES Millicent l Result Performing Organization Address City/[facility] Co de Phone Number [facility] SNA * PTH, intact (12/09/2020 3:16 PM CDT) Pathologist [facility] PTH 34.9 15.0 - 65.0 pg/mL [facility] Comment: Performed at: [place] [address] Electric Switch Tester: German Casey MD CLIA # [id number] Blood 12/09/2020 3:16 PM CDT 12/09/2020 5:07 PM CDT Josseline Wong VETERINARY X RAY OPERATOR LAB BLOOD ORDERABLES Millicent l Result Performing Organization Address City/[facility] Co de Phone Number [facility] * (ABNORMAL) CBC (12/09/2020 3:16 PM CDT) WBC 8.3 4.5 - 11.0 K/uL [facility] Red Blood Cells 5.09 4.20 - 5.40 M/uL [facility] Hgb 14.3 12.0 - 16.0 g/dL [facility] Hematocrit 45.1 36.0 - 46.0 % [facility] MCV 88.6 84.0 - 103.0 fL [facility] MCH 28.1 27.0 - 34.0 pg [facility] MCHC 31.7 30.0 - 35.0 g/dL [facility] Platelets 246 140 - 440 K/uL [facility] MPV 12.2 8.9 - 12.8 fL [facility] RDW 15.8(H) 11.0 - 14.5 % [facility] RDW-SD 51.7 37.0 - 54.0 fL [facility] Comment: Performed at: [facility] [address] Electric Switch Tester: MD GIRISH Castillo # [id number] Blood 12/09/2020 3:16 PM CDT 12/09/2020 5:07 PM CDT us Josseline Wong VETERINARY X RAY OPERATOR LAB BLOOD ORDERABLES Millicent l Result [facility] * (ABNORMAL) Renal function panel (12/09/2020 3:16 PM CDT) Sodium 139 136 - 145 mmol/L [facility] Potassium 4.9 3.5 - 5.1 mmol/L [facility] Chloride 101 98 - 107 mmol/L [facility] Carbon Dioxide (CO2) 28 22 - 29 mmol/L [facility] Calcium 10.0 8.6 - 10.0 mg/dL [facility] BUN 11 6 - 20 mg/dL [facility] Creatinine 1.64(H) 0.51 - 0.95 mg/dL [facility] Glucose 102(H) 74 - 99 mg/dL [facility] Albumin 5.1 3.5 - 5.2 g/dL [facility] Phosphorus, Serum 3.2 2.5 - 4.5 mg/dL [facility] eGFR Non- 34(L) >=60 mL/min/1.7 3 sq meter [facility] Comment: eGFR has not been validated for use in the elderly (> 70 years of age), women, patients with serious co-morbid conditions, or persons with extremes of body size or muscle mass and should also be interpreted with caution in patients with acute kidney failure, dialysis dependent patients, patients reporting exceptional dietary intake (e.g. vegetarian diet, high protein diets, creatine supplementation), and patients with severe liver disease. Based on National Kidney Disease Education Program If patient is , please refer to the GFR result. eGFR 42(L) >=60 mL/min/1.7 3 sq meter [facility] Anion Gap 10 9 - 20 mmol/L [facility] Comment: TEST COMMENT: Fasting?->No Performed at: [facility] [address] [place] [address] Electric Switch Tester: MD GIRISH Castillo # [id number] Blood 12/09/2020 3:16 PM CDT 12/09/2020 5:07 PM CDT us Josseline Wong VETERINARY X RAY OPERATOR LAB BLOOD ORDERABLES Millicent l Result [facility] documented in this encounter Visit Diagnoses Diagnosis Stage 3 chronic kidney disease (HCC) documented in this encounter Care Teams Dry Yard Worker Relationship Specialty Start Date End Date Michelle Rico FNP [address] [place] PCP - General 09/26/19 documented as of this encounter
--- NOTE | 2025-04-18 01:37 | ECG_ITS ---
[facility] Test Date: 2025-04-18 Pat Name: Nina Garcia Department: Room: Gender: Female Signal Mechanic: : 1980 Requested By: Shar Posadas Order Number: [id number] Chan MD: Rodolfo Chen M.D. Measurements Intervals [place] Rate: 128 P: 132 UT: 139 QRS: 79 QRSD: 80 T: 182 QT: 284 QTc: 415 Interpretive Statements ECTOPIC ATRIAL TACHYCARDIA LATERAL MYOCARDIAL INFARCTION , OF INDETERMINATE AGE [40+ ms Q WAVE AND/OR ST/T ABNORMALITY IN I/aVL/V5/V6] MODERATE T-WAVE ABNORMALITY, CONSIDER INFERIOR ISCHEMIA [-0.1+ mV T-WAVE IN II/aVF] Compared to ECG 02/17/2025 00:11:36 Myocardial infarct finding now present Possible ischemia now present Sinus tachycardia no longer present T-wave abnormality still present Electronically Signed On 04-20-2025 08:48:59 CDT by Rodolfo Chen M.D. [email or web address]
--- OUTSIDE RECORDS SUMMARY | 2025-04-18 01:37 | XMS_ITS | Encounter Summary ---
Author Organization [facility] Address [address] [place] [address] Care Team Providers Care High School French Teacher Name Role Phone Non-Staff, Physician Primary Care Provider Unava ilable Encounter Details Date Type Department Care Team (Latest Contact Info) Description 07/19/2002 Outpatient Historical [facility] Oseas Guidry MD [address] [place] [address] IRRITABLE COLON (Primary Dx) Social History Tobacco Use Types Packs/Day Years Used Date Smoking Tobacco: Never Assessed Comments Unknown Sex and Gender Information Value Date Recorded Sex Assigned at Not on file Legal Sex Female 3:18 AM MEDICAL DOSIMETRIST Gender Identity Not on file Sexual Orientation Not on file documented as of this encounter Plan of Treatment Not on file documented as of this encounter Visit Diagnoses Diagnosis Irritable bowel syndrome- Primary documented in this encounter Care Teams High School French Teacher Relationship Specialty Start Date End Date Non-Staff, Physician NO ADDRESS ON FILE PCP - General 04/02/20 documented as of this encounter
--- OUTSIDE RECORDS SUMMARY | 2025-04-18 01:37 | XMS_ITS | Encounter Summary ---
Author Organization [facility] Address [address] [place] [address] Care Team Providers Care Research Assistant Name Role Phone Non-Staff, Physician Primary Care Provider Unava ilable Encounter Details Date Type Department Care Team (Latest Contact Info) Description 06/20/2000 Outpatient Historical [facility] Oseas Guidry MD [address] [place] [address] Pain in joint, site unspecified (Primary Dx); Nonallopathic lesion of abdomen and other sites, not elsewhere classified Social History Tobacco Use Types Packs/Day Years Used Date Smoking Tobacco: Never Assessed Comments Unknown Sex and Gender Information Value Date Recorded Sex Assigned at Not on file Legal Sex Female 3:18 AM DIRECTOR IMAGING Gender Identity Not on file Sexual Orientation Not on file documented as of this encounter Plan of Treatment Not on file documented as of this encounter Visit Diagnoses Diagnosis Pain in joint, site unspecified- Primary Nonallopathic lesion of abdomen and other sites, not elsewhere classified documented in this encounter Care Teams Research Assistant Relationship Specialty Start Date End Date Non-Staff, Physician NO ADDRESS ON FILE PCP - General 04/02/20 documented as of this encounter
--- OUTSIDE RECORDS SUMMARY | 2025-04-18 01:37 | XMS_ITS | Encounter Summary ---
Author Organization [facility] Address [address] [place] [address] Care Team Providers Care Handle Attacher Name Role Phone Non-Staff, Physician Primary Care Provider Unava ilable Encounter Details Date Type Department Care Team (Latest Contact Info) Description 01/05/2001 Outpatient Historical [facility] Oseas Guidry MD [address] [place] [address] Urinary tract infection, site not specified (Primary Dx); Other and unspecified noninfectious gastroenteritis and colitis(558.9) Social History Tobacco Use Types Packs/Day Years Used Date Smoking Tobacco: Never Assessed Comments Unknown Sex and Gender Information Value Date Recorded Sex Assigned at Not on file Legal Sex Female 3:18 AM 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
--- OUTSIDE RECORDS SUMMARY | 2025-04-18 01:37 | XMS_ITS | Encounter Summary ---
Author Organization [facility] Address [address] [place] [address] Care Team Providers Care Associate Professor Of Geography Name Role Phone Non-Staff, Physician Primary Care Provider Unava ilable Encounter Details Date Type Department Care Team (Latest Contact Info) Description 02/21/2006 Outpatient Historical [facility] Services [address] [address] Antoinette Bradley MD [address] [facility] [address] [place] [address] Other Conditions of Brain (Primary Dx) Social History Tobacco Use Types Packs/Day Years Used Date Smoking Tobacco: Never Assessed Comments Unknown Sex and Gender Information Value Date Recorded Sex Assigned at Not on file Legal Sex Female 3:18 AM FRAUD ANALYST Gender Identity Not on file Sexual Orientation Not on file documented as of this encounter Plan of Treatment Not on file documented as of this encounter Visit Diagnoses Diagnosis Brain conditions NEC- Primary Other conditions of brain documented in this encounter Care Teams Associate Professor Of Geography Relationship Specialty Start Date End Date Non-Staff, Physician NO ADDRESS ON FILE PCP - General 04/02/20 documented as of this encounter
--- OUTSIDE RECORDS SUMMARY | 2025-04-18 01:37 | XMS_ITS | Encounter Summary ---
Author Organization [facility] Address [address] [place] [address] Care Team Providers Care Machine Stuffer Automatic Name Role Phone Non-Staff, Physician Primary Care Provider Unava ilable Encounter Details Date Type Department Care Team (Latest Contact Info) Description 07/11/2000 Outpatient Historical [facility] Oseas Guidry MD [address] [place] [address] Abdominal pain, unspecified site (Primary Dx); Other malaise and fatigue Social History Tobacco Use Types Packs/Day Years Used Date Smoking Tobacco: Never Assessed Comments Unknown Sex and Gender Information Value Date Recorded Sex Assigned at Not on file Legal Sex Female 3:18 AM ACCREDITED FARM 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
--- OUTSIDE RECORDS SUMMARY | 2025-04-18 01:37 | XMS_ITS | Encounter Summary ---
Author Organization [facility] Address [address] [place] [address] Care Team Providers Care Retreader Name Role Phone Non-Staff, Physician Primary Care Provider Unava ilable Encounter Details Date Type Department Care Team (Latest Contact Info) Description 01/19/2006 Outpatient Historical [facility] [place] [address] [facility] [address] [place] [address] Quinten Aviles MD [facility] [address] [facility] [address] [place] [address] Anal Fissure (Primary Dx); Irritable Bowel Syndrome Social History Tobacco Use Types Packs/Day Years Used Date Smoking Tobacco: Never Assessed Comments Unknown Sex and Gender Information Value Date Recorded Sex Assigned at Not on file Legal Sex Female 3:18 AM PANTRY ATTENDANT Gender Identity Not on file Sexual Orientation Not on file documented as of this encounter Plan of Treatment Not on file documented as of this encounter Visit Diagnoses Diagnosis Anal fissure- Primary Irritable bowel syndrome documented in this encounter Care Teams Retreader Relationship Specialty Start Date End Date Non-Staff, Physician NO ADDRESS ON FILE PCP - General 04/02/20 documented as of this encounter
--- OUTSIDE RECORDS SUMMARY | 2025-04-18 01:37 | XMS_ITS | Encounter Summary ---
Author Organization [facility] Address [address] [place] [address] Care Team Providers Care Poultry Field Service Technician Name Role Phone Non-Staff, Physician Primary Care Provider Unava ilable Encounter Details Date Type Department Care Team (Latest Contact Info) Description 12/22/2000 Outpatient Historical [facility] Oseas Guidry MD [address] [place] [address] Abdominal pain, unspecified site (Primary Dx); Nonallopathic lesion of abdomen and other sites, not elsewhere classified Social History Tobacco Use Types Packs/Day Years Used Date Smoking Tobacco: Never Assessed Comments Unknown Sex and Gender Information Value Date Recorded Sex Assigned at Not on file Legal Sex Female 3:18 AM MACHINE 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
--- OUTSIDE RECORDS SUMMARY | 2025-04-18 01:37 | XMS_ITS | Encounter Summary ---
Author Organization [facility] Address [address] [place] [address] Phone Care Team Providers Care Motorized Squad Commanding Officer Name Role Phone Michelle Rico TORSTEN Primary Care Provider Encounter Details Date Type Department Care Team (Late st Contact Info) Description 03/06/2021 Orders Only [facility] [address] [place] [address] Janeth Fong MA Stage 3b chronic kidney disease (HCC) Social History Tobacco [...] Procedure Name Priority Date/Time Associated Diagnosis Comments URINE ALBUMIN / CREATININE RATIO Routine 03/19/2021 10:30 AM CDT Stage 3b chronic kidney disease (HCC) CBC AND DIFFERENTIAL Routine 03/19/2021 10:30 AM CDT Stage 3b chronic kidney disease (HCC) RENAL FUNCTION PANEL Routine 03/19/2021 10:30 AM CDT Stage 3b chronic kidney disease (HCC) documented in this encounter Results * Renal function panel (03/19/2021 10:30 AM CDT) Glucose 74 mg/dL [facility] BUN 8 mg/dL [facility] Creatinine 1.28 mg/dL [facility] BUN/Creatinine Ratio 6 [facility] Sodium 140 mEq/L [facility] Potassium 3.9 mEq/L [facility] Chloride 105 [facility] Carbon Dioxide 23 mmol/L [facility] Calcium 9.2 mg/dL [facility] Phosphorus, Serum 3.7 mg/dL [facility] Albumin (Blood) 4.1 g/dL [facility] eGFR Non-Afr Rwandan 51 [facility] eGFR 59 [facility] Blood specimen (specimen) Venous blood / Unknown 03/19/2021 10:30 AM CDT Narrative [facility] - 03/24/2021 9:21 AM CDT charter boat captain lab [facility] [place] [address] [phone] Manager Heavy Duty: Poncho Cordova DO MPH CLIA: [id number] [facility] [place] [address] [facility] [place] [address] Manager Heavy Duty: Poncho Cordova DO MPH CLIA: [id number] us Dangelo Monreal MD LAB BLOOD ORDERABLES [facility] Result [facility] * CBC and differential (03/19/2021 10:30 AM CDT) Pathologist [facility] WBC 9.7 K/uL [facility] Red Blood Cell Count 4.29 [facility] Hemoglobin 12.3 g/dL [facility] Hematocrit 39.9 % [facility] MCV 93.0 [facility] MCH 28.7 [facility] MCHC 30.8 [facility] RDW 13.5 [facility] Platelet Count 228 [facility] MPV 13.1 [facility] Absolute Neutrophils 4,966 [facility] Absolute Lymphocytes 3,414 [facility] Absolute Monocytes 475 [facility] Absolute Eosinophils 728 [facility] Absolute Basophils 116 [facility] Neutrophils 51.2 K/uL [facility] Lymphocytes 35.2 [facility] Monocytes 4.9 [facility] Eosinophils 7.5 [facility] Basophils 1.2 [facility] Blood specimen (specimen) Venous blood / Unknown 03/19/2021 10:30 AM CDT Narrative [facility] - 03/24/2021 9:24 AM CDT charter boat captain lab [facility] [place] [address] [place] [employer] [phone] Manager Heavy Duty: Poncho Cordova DO MPH CLIA: [id number] [facility] [place] [address] [place] [employer] [address] Manager Heavy Duty: Poncho Cordova DO MPH CLIA: [id number] us Dangelo Monreal MD LAB BLOOD ORDERABLES Fi [facility] Result [facility] * Albumin / Creatinine Urine Ratio (03/19/2021 10:30 AM CDT) Protein Urine Random 18 mg/dL [facility] Creatinine, Urine Random 156 mg/dL [facility] Urine Protein/Creati nine Ratio 115.000 mg/g Creat [facility] Urine specimen (specimen) Urine specimen obtained by clean catch procedure / Unknown 03/19/2021 10:30 AM CDT Narrative [facility] - 03/24/2021 9:22 AM CDT charter boat captain lab [facility] [place] [address] [place] [address] Manager Heavy Duty: Poncho Cordova DO MPH CLIA: [id number] [facility] [place] [address] [place] [address] Manager Heavy Duty: Poncho Cordova DO MPH CLIA: [id number] us Dangelo Monreal MD LAB URINE ORDERABLES Fi [facility] Result [facility] documented in this encounter Visit Diagnoses Diagnosis Stage 3b chronic kidney disease (HCC) documented in this encounter Care Teams Motorized Squad Commanding Officer Relationship Specialty Start Date End Date Michelle Rico FNP [address] PCP - General 09/26/19 documented as of this encounter
--- OUTSIDE RECORDS SUMMARY | 2025-04-18 01:37 | XMS_ITS | Encounter Summary ---
Author Organization [facility] Address [address] [place] [address] Phone Care Team Providers Care Caponizer Name Role Phone Michelle Rico Primary Care Provider Encounter Details Date Type Department Care Team (Late st Contact Info) Description 03/16/2021 Orders Only [facility] [address] [place] [address] Dangelo Monreal MD [address] [place] [address] Stage 3b chronic kidney disease (HCC) Social [...] as of this encounter Visit Diagnoses Diagnosis Stage 3b chronic kidney disease (HCC) documented in this encounter Care Teams Caponizer Relationship Specialty Start Date End Date Michelle Rico FNP [address] PCP - General 09/26/19 documented as of this encounter
--- OUTSIDE RECORDS SUMMARY | 2025-04-18 01:37 | XMS_ITS | Encounter Summary ---
Author Organization [facility] Address [address] [place] [address] Care Team Providers Care Camp Boss Name Role Phone Non-Staff, Physician Primary Care Provider Unava ilable Encounter Details Date Type Department Care Team (Late st Contact Info) Description 10/03/2002 Outpatient Historical [facility] OBGYN-[facility]ong [place] [address] [place] [phone] Sekou Ma MD [address] [facility] [address] [place], [place] [address] Gynecologic examination (Primary Dx); ENURESIS NOS; ABDOMINAL PAIN RLQ Social History Tobacco Use Types Packs/Day Years Used Date Smoking Tobacco: Never Assessed Comments Unknown Sex and Gender Information Value Date Recorded Sex Assigned at Not on file Legal Sex Female 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
--- OUTSIDE RECORDS SUMMARY | 2025-04-18 01:37 | XMS_ITS | Encounter Summary ---
Author Organization [facility] Address [address] [facility] [address] [place] [address] Phone Care Team Providers Care Asset Availability Leader Name Role Phone Michelle Rico Primary Care Provider [phone] Reason for Visit * Reason Comments Med Refill Encounter Details Date Type Department Care Team (Late st Contact Info) Description 09/10/2021 Refill [facility] [address] [facility] [address] [place] [address] Josseline Wong NP [address] [place] [address] Social History Tobacco Use Types Packs/Day Years [...] documented as of this encounter Visit Diagnoses Not on filedocumented in this encounter Care Teams Asset Availability Leader Relationship Specialty Start Date End Date Michelle Rico FNP [address] PCP - General 09/26/19 documented as of this encounter
--- OUTSIDE RECORDS SUMMARY | 2025-04-18 01:37 | XMS_ITS | Encounter Summary ---
Author Organization [facility] Address [address] [place] [address] Care Team Providers Care Timber Management Assistant Name Role Phone Non-Staff, Physician Primary Care Provider Unava ilable Encounter Details Date Type Department Care Team (Latest Contact Info) Description 02/14/2006 Outpatient Historical [facility] Neurology [address] [facility] [place] [address] Antoinette Bradley MD [address] [place] [address] Unspecified Epilepsy without Mention of Intractable Epilepsy (CMS/HCC) (Primary Dx); Syncope and Collapse Social History Tobacco Use Types Packs/Day Years Used Date Smoking Tobacco: Never Assessed Comments Unknown Sex and Gender Information Value Date Recorded Sex Assigned at Not on file 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
--- OUTSIDE RECORDS SUMMARY | 2025-04-18 01:37 | XMS_ITS | Encounter Summary ---
Author Organization [facility] Address [address] [place] [address] Care Team Providers Care Spectrographer Name Role Phone Non-Staff, Physician Primary Care Provider Unava ilable Encounter Details Date Type Department Care Team (Late st Contact Info) Description 04/03/2001 Outpatient Historical [facility] OBGYN-[facility] [place] [address] [place] [address] Sekou Ma MD [address] [facility] [address] [place], [place] [id number] Unspecified inflammatory disease of uterus (Primary Dx); Irregular menstruation; Unspecified symptom associated with female genital organs Social History Tobacco Use Types Packs/Day Years Used Date Smoking Tobacco: Never Assessed Comments Unknown Sex and Gender Information Value Date Recorded Sex Assigned at Not on file Legal Sex Female 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
--- OUTSIDE RECORDS SUMMARY | 2025-04-18 01:37 | XMS_ITS | Encounter Summary ---
Author Organization [facility] Address [address] [place] [address] Phone Care Team Providers Care Battery Charger Name Role Phone Michelle Rico Primary Care Provider [phone]- [phone] Reason for Visit * Reason Comments Med Refill Encounter Details Date Type Department Care Team (Late st Contact Info) Description 07/04/2022 Refill [facility] [address] [place] [address] Gaye Sheth NP [address] [place] [address] Social History Tobacco Use Types [...] on filedocumented in this encounter Care Teams Battery Charger Relationship Specialty Start Date End Date Michelle Rico FNP [address] PCP - General 09/26/19 documented as of this encounter
--- OUTSIDE RECORDS SUMMARY | 2025-04-18 01:37 | XMS_ITS | Encounter Summary ---
Author Organization [facility] Address [address] [place] [address] Care Team Providers Care Flight Radio Officer Name Role Phone Non-Staff, Physician Primary Care Provider Unava ilable Encounter Details Date Type Department Care Team (Late st Contact Info) Description 04/17/2001 Outpatient Historical [facility] OBGYN-Fong [place] [address] [place] [address] Sekou Ma MD [address] [facility] [address] [place], [place] [address] Other specified pre-operative examination (Primary Dx); Unspecified symptom associated with female genital organs Social History Tobacco Use Types Packs/Day Years Used Date Smoking Tobacco: Never Assessed Comments Unknown Sex and Gender Information Value Date Recorded Sex Assigned at Not on file Legal Sex Female 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
--- OUTSIDE RECORDS SUMMARY | 2025-04-18 01:37 | XMS_ITS | Encounter Summary ---
Author Organization [facility] Address [address] [place] [address] Care Team Providers Care Journeyman Pipe Welder Name Role Phone Non-Staff, Physician Primary Care Provider Unava ilable Encounter Details Date Type Department Care Team (Late st Contact Info) Description 04/25/2001 Outpatient Historical [facility] OBGYN-Fong [place] [address] [place] [phone] Sekou Ma MD [address] [facility] [address] [place], [place] [address] Metrorrhagia (Primary Dx); Dysmenorrhea; Unspecified symptom associated with female genital organs Social History Tobacco Use Types Packs/Day Years Used Date Smoking Tobacco: Never Assessed Comments Unknown Sex and Gender Information Value Date Recorded Sex Assigned at Not on file Legal 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
--- OUTSIDE RECORDS SUMMARY | 2025-04-18 01:37 | XMS_ITS | Encounter Summary ---
Author Organization [facility] Address [address] [place] [address] Care Team Providers Care Machine Cementer Name Role Phone Non-Staff, Physician Primary Care Provider Unava ilable Encounter Details Date Type Department Care Team (Latest Contact Info) Description 04/21/2000 Outpatient Historical [facility] Oseas Guidry MD [address] [place] [address] Blood in stool (Primary Dx); Other malaise and fatigue Social History Tobacco Use Types Packs/Day Years Used Date Smoking Tobacco: Never Assessed Comments Unknown Sex and Gender Information Value Date Recorded Sex Assigned at Not on file 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
--- OUTSIDE RECORDS SUMMARY | 2025-04-18 01:37 | XMS_ITS | Encounter Summary ---
Author Organization [facility] Address [address] [place] [address] Care Team Providers Care Regulatory Affairs Spec Name Role Phone Non-Staff, Physician Primary Care Provider Unava ilable Encounter Details Date Type Department Care Team (Latest Contact Info) Description 02/21/2006 Outpatient Historical [facility] Neurology [address] [facility] [place] [address] Antoinette Bradley MD [address] [place] [address] Syncope and Collapse (Primary Dx) Social History Tobacco Use Types Packs/Day Years Used Date Smoking Tobacco: Never Assessed Comments Unknown Sex and Gender Information Value Date Recorded Sex Assigned at Not on file 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
--- OUTSIDE RECORDS SUMMARY | 2025-04-18 01:37 | XMS_ITS | Encounter Summary ---
Author Organization [facility] Address [address] [place] [address] Phone Care Team Providers Care Fire Alarm Operator Name Role Phone Michelle Rico Primary Care Provider [phone]- [phone] Reason for Visit * Reason Comments Med Refill Encounter Details Date Type Department Care Team (Late st Contact Info) Description 01/21/2022 Refill [facility] [address] [place] [address] Dangelo Monreal MD [address] [place] [address] Social History Tobacco Use Types [...] on filedocumented in this encounter Care Teams Fire Alarm Operator Relationship Specialty Start Date End Date Michelle Rico FNP [address] PCP - General 09/26/19 documented as of this encounter
--- OUTSIDE RECORDS SUMMARY | 2025-04-18 01:37 | XMS_ITS | Encounter Summary ---
Author Organization [facility] Address [address] [place] [address] Care Team Providers Care Helper Animal Laboratory Name Role Phone Non-Staff, Physician Primary Care Provider Unava ilable Encounter Details Date Type Department Care Team (Latest Contact Info) Description 04/20/2000 Outpatient Historical [facility] Trent Reed NO ADDRESS ON FILE Other and unspecified noninfectious gastroenteritis and colitis(558.9) (Primary Dx) Social History Tobacco Use Types Packs/Day Years Used Date Smoking Tobacco: Never Assessed Comments Unknown Sex and Gender Information Value Date Recorded Sex Assigned at Not on file Legal 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
--- OUTSIDE RECORDS SUMMARY | 2025-04-18 01:37 | XMS_ITS | Encounter Summary ---
Author Organization [facility] Address [address] [place] [address] Care Team Providers Care Body Straightener Name Role Phone Non-Staff, Physician Primary Care Provider Unava ilable Encounter Details Date Type Department Care Team (Latest Contact Info) Description 02/28/2001 Outpatient Historical [facility] Oseas Guidry MD [address] [place] [address] Unspecified inflammatory disease of female pelvic organs and tissues (Primary Dx) Social History Tobacco Use Types Packs/Day Years Used Date Smoking Tobacco: Never Assessed Comments Unknown Sex and Gender Information Value Date Recorded Sex Assigned at Not on file 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
--- OUTSIDE RECORDS SUMMARY | 2025-04-18 01:37 | XMS_ITS | Clinical Summary ---
Author Organization [facility] Address [address] [place] [address] Care Team Providers Care Volunteer Specialist Name Role Phone Non-Staff, Physician Primary Care Provider Unava ilable Allergies Active Allergy Reactions Criticality Noted Date Comments Aspirin Other (See Comments) 04/05/2019 Was instructed not to take medication Ketorolac Unknown 04/28/2011 Meloxicam Unknown 04/28/2011 Nsaids (Non-Steroidal Anti-Inflammatory Drug) Other (See Comments) 04/05/2019 Cant take because of [place] Medications HYDROcodone-fran taminophen (NORCO) 10-325 mg Oral Tab Take 1 Tablet by mouth every 4 hours as needed. 10-325 tabs, 1-2 tabs every 4-6 hours as needed (verified through pharmacy rupinder) Active tiZANidine (ZANAFLEX) 4 mg Oral Cap Take 8 mg by mouth 4 times daily . Active ONDANSETRON HCL (ZOFRAN ORAL) Take 8 mg by mouth . Active lithium carbonate (ESKALITH CR) 450 mg Controlled Release tablet Take 450 mg by mouth daily. Active lithium carbonate (ESKALITH IR) 600 mg Capsule Take 600 mg by mouth daily at bedtime. Active lamoTRIgine (LaMICtal) 200 mg tablet Take 200 mg by mouth daily. Active LORazepam (ATIVAN) 1 mg tablet Take 1 mg by mouth 2 times daily. Active LORazepam (ATIVAN) 2 mg tablet Take 2 mg by mouth daily at bedtime. Active pantoprazole (PROTONIX) 40 mg Tablet, Delayed Release (E.C.) Take 40 mg by mouth daily. Active topiramate (TOPAMAX) 100 mg tablet Take 100 mg by mouth 2 times daily. Active losartan (COZAAR) 100 mg tablet Take 100 mg by mouth daily. Active hydroCHLOROthia zide 25 mg tablet Take 25 mg by mouth daily. Active amLODIPine (NORVASC) 10 mg tabletIndicatio ns:take 0.5 tablet daily Take 25 mg by mouth daily. Active carvedilol (COREG) 3.125 mg tablet Take 3.125 mg by mouth daily. Active rOPINIRole (REQUIP) 0.25 mg tablet Take 0.25 mg by mouth 3 times daily. Active HYDROmorphone (DILAUDID) 4 mg tablet Take 4 mg by mouth every 4 hours as needed for Pain. 4mg tabs, 1-2 tabs every 4-6 hours as needed (verified through pharmacy rupinder) Active onabotulinumtox Lora (BOTOX INJECTION) by Injection route. Active cloNIDine HCl (CATAPRES) 0.3 mg tablet Take 0.3 mg by mouth 3 times daily. Active erenumab-aooe (AIMOVIG AUTOINJECTOR) Auto-Injector Inject 70 mg by subcutaneous injection one time only. Active spironolactone (ALDACTONE) Tablet Take 12.5 mg by mouth daily. Active peppermint oil (IBgard) 90 mg Capsule, Delayed & Ext.ReleaseIndi cations:Intermi ttent generalized abdominal pain Take 90 mg by mouth every 8 hours as needed for Pain. Take TID for first 2 days then PRN for abd pain 0 Active isosorbide mononitrate (IMDUR) 30 mg Extended Release 24 hour tablet Take 30 mg by mouth daily sprayer leather. Active levothyroxine 175 mcg tablet Take 1 Tablet (175 mcg) by mouth daily in the morning. 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 03/14/2020 Multiple thyroid nodules 05/03/2019 Immunizations Immunization Administration Dates Next Due Influenza Seasonal Unspecified Formulation IM Family History Medical History Relation Name Comments Diabetes Brother Diabetes Father Hypertension Father Diabetes Maternal Grandfather Heart Disease Maternal Grandfather Heart Failure Maternal Grandfather Cancer Maternal Grandmother Colon Cancer Maternal Grandmother Diabetes Maternal Grandmother Cancer Mother Diabetes Mother Cancer Other 1 aunt Hypertension Other 2 uncle Diabetes Other 3 aunt, uncle Seizures Other 4 cousin Diabetes Sister Relation Name Status Comments Brother Father Maternal Grandfather Maternal Grandmother Mother Other 1 Other 2 Other 3 Other 4 Sister Social History Tobacco Use Types Packs/Day Years Used Date Smoking Tobacco: Never Smokeless Tobacco: Never Alcohol Use Standard Drinks/Week Comments No 0 (1 standard drink = 0.6 oz pur e alcohol) Comments No Sex and Gender Information Value Date Recorded Sex Assigned at Not on file Legal Sex Female 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 Gender Identity Not on file Sexual Orientation Not on file Last Filed Vital Signs Vital Sign Reading Time Taken Comments Blood Pressure 122/70 09/19/2020 1:09 PM 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 Pulse 112 09/19/2020 1:09 PM 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 Temperature 35.8 C (96.4 F) 04/03/2020 12:41 PM CDT Respiratory Rate 20 04/03/2020 12:41 PM CDT Oxygen Saturation 99% 04/03/2020 12:41 PM CDT Inhaled Oxygen Concentration - - Weight 100.2 kg (221 lb) 09/19/2020 1:09 PM 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 Height 165.1 cm (5' 5 ) 09/19/2020 1:09 PM 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 Body Mass Index 36.78 09/19/2020 1:09 PM 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 Plan of Treatment Health Maintenance Due Date Last Done Comments DTAP/TDAP/TD VACCINES (1 - Tdap) 1997 HEPATITIS B VACCINES (1 of 3 - 19+ 3-dose series) 1997 BREAST CANCER SCREENING 2018 FIT-DNA Q 3 years 2023 FIT/FOBT Q 1 year 2023 Flex Sig/CT Colonography Q 5 years 02/09/20232005, 03/09/2006 COLORECTAL SCREENING 10/26/2024 10/26/2019, 10/26/19 20 Colorectal Cancer Screening 10/26/2024 INFLUENZA VACCINE (#1) 2025 06/04/2019 Medical Devices Implanted Type Area Handkerchief Presser Device Identifier Shelf Expiration Date Model / Serial / Lot Hemostatic Surgifoam [id number] - [id number] Implanted:06/12 by Quinten Medeiros MD at [facility] (Quantity not on file) Hemostatic N/A: Neck [employer] 03/29/20231971 [id number] Procedures Procedure Name Priority Date/Time Associated Diagnosis Comments COLONOSCOPY REPORT 10/26/2019 11 :43 AM 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 from Last 3 Months or Most Recently Relevant to Health Maintenance Results * COLONOSCOPY REPORT (10/26/2019 11:43 AM 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) Narrative Procedure Note Kurt Howard DO - 10/26/2019 11:43 AM CST [facility] Patient Name: Nina Garcia Procedure Date: 10/26/2019 Date of : 1980 Admit Type: Outpatient Age: 39 Attending MD: Kurt Howard MD Procedure: Colonoscopy Indications: Rectal bleeding Providers: Kurt Howard MD Referring MD: Kurt Howard MD Medicines: Propofol per Anesthesia Complications: No immediate complications. Procedure: After I obtained informed consent, the scope was passed under direct vision. Throughout the procedure, the patient's blood pressure, pulse, and oxygen saturations were monitored continuously. The Colonoscope was introduced through the anus and advanced to the cecum, identified by appendiceal orifice and ileocecal valve. The colonoscopy was performed without difficulty. The patient tolerated the procedure well. The quality of the bowel preparation was adequate to identify polyps 6 mm and larger in size. Estimated Blood Loss: Estimated blood loss was minimal. Findings: A 8 mm polyp was found in the transverse colon. The polyp was sessile. The polyp was removed with a cold snare. Resection and retrieval were complete. Internal hemorrhoids were found during retroflexion. The hemorrhoids were small. The terminal ileum appeared normal. Impression: - One 8 mm polyp in the transverse colon, removed with a cold snare. Resected and retrieved. - Internal hemorrhoids. - The examined portion of the ileum was normal. Recommendation: - Patient has a contact number available for emergencies. The signs and symptoms of potential delayed complications were discussed with the patient. Return to normal activities tomorrow. Written discharge instructions were provided to the patient. - Resume previous diet. - Continue present medications. - Repeat colonoscopy date to be determined after pending pathology results are reviewed for surveillance. Kurt Howard MD 10/26/2019 11:42:49 AM Number of Addenda: 0 Note Initiated On: 10/26/2019 11:25 AM Scope Withdrawal Time 0 hours 10 minutes 39 seconds Scope In: 11:26:45 AM Scope Out: 11:40:06 AM [address], [place] Kurt Howard DO GI PROCEDURE ORDERABLES Final Result from Last 3 Months or Most Recently Relevant to Health Maintenance Insurance Advance Directives For more information, please contact: [phone] * Full Code (Latest Code Status on File) Date Activated Date Inactivated Comments 04/02/2020 8:57 PM 04/03/2020 5:02 PM * Full Code Date Activated Date Inactivated Comments 10/26/2019 10:01 AM 10/26/2019 2:26 PM * Full Code Date Activated Date Inactivated Comments 06/12/2019 11:39 AM 06/13/2019 5:40 PM * Full Code Date Activated Date Inactivated Comments 04/05/2019 9:15 PM 04/07/2019 5:09 PM Care Teams Volunteer Specialist Relationship Specialty Start Date End Date Non-Staff, Physician NO ADDRESS ON FILE PCP - General 04/02/20
--- OUTSIDE RECORDS SUMMARY | 2025-04-18 01:37 | XMS_ITS | Encounter Summary ---
Author Organization [facility] Address [address] [place] [address] Care Team Providers Care Patrol Mother Name Role Phone Non-Staff, Physician Primary Care Provider Unava ilable Encounter Details Date Type Department Care Team (Late st Contact Info) Description 04/03/2001 Outpatient Historical [facility] Sekou Ma MD [address] [address] Excessive menstruation (Primary Dx) Social History Tobacco Use Types Packs/Day Years Used Date Smoking Tobacco: Never Assessed Comments Unknown Sex and Gender Information Value Date Recorded Sex Assigned at Not on file Legal Sex Female 3:18 AM MIXER BLENDER Gender Identity Not on file Sexual Orientation Not on file documented as of this encounter Plan of Treatment Not on file documented as of this encounter Visit Diagnoses Diagnosis Excessive menstruation- Primary Excessive or frequent menstruation documented in this encounter Care Teams Patrol Mother Relationship Specialty Start Date End Date Non-Staff, Physician NO ADDRESS ON FILE PCP - General 04/02/20 documented as of this encounter
--- OUTSIDE RECORDS SUMMARY | 2025-04-18 01:37 | XMS_ITS | Encounter Summary ---
Author Organization [facility] Address [address] [place] [address] Care Team Providers Care Printing Technician Name Role Phone Non-Staff, Physician Primary Care Provider Unava ilable Encounter Details Date Type Department Care Team (Latest Contact Info) Description 05/25/2000 Outpatient Historical [facility] Shaheen Bey MD [address] [facility] [address] [place] [address] Follow-up examination following surgery (Primary Dx) Social History Tobacco Use Types Packs/Day Years Used Date Smoking Tobacco: Never Assessed Comments Unknown Sex and Gender Information Value Date Recorded Sex Assigned at Not on file 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
--- OUTSIDE RECORDS SUMMARY | 2025-04-18 01:37 | XMS_ITS | Encounter Summary ---
Author Organization [facility] Address [address] [place] [address] Care Team Providers Care Baker Paint Name Role Phone Non-Staff, Physician Primary Care Provider Unava ilable Encounter Details Date Type Department Care Team (Late st Contact Info) Description 10/10/2002 Outpatient Historical [facility] [address] [place] [phone] Sekou Ma MD [address] [facility] [address] [place], [place] [id number] ADMINISTRTVE ENCOUNT NOS (Primary Dx) Social History Tobacco Use Types Packs/Day Years Used Date Smoking Tobacco: Never Assessed Comments Unknown Sex and Gender Information Value Date Recorded Sex Assigned at Not on file 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
--- OUTSIDE RECORDS SUMMARY | 2025-04-18 01:37 | XMS_ITS | Encounter Summary ---
Author Organization [facility] Address [address] [place] [address] Care Team Providers Care Automotive Machinist Name Role Phone Non-Staff, Physician Primary Care Provider Unava ilable Encounter Details Date Type Department Care Team (Late st Contact Info) Description 10/03/2002 Outpatient Historical [facility] [place] [address] [place] [phone] Sekou Ma MD [address] [facility] [address] [place], [place] [id number] Social History Tobacco Use Types Packs/Day Years Used Date Smoking Tobacco: Never Assessed Comments Unknown Sex and Gender Information Value Date Recorded Sex Assigned at Not on file 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
--- OUTSIDE RECORDS SUMMARY | 2025-04-18 01:37 | XMS_ITS | Encounter Summary ---
Author Organization [facility] Address [address] [place] [address] Care Team Providers Care Ribbing Machine Operator Name Role Phone Non-Staff, Physician Primary Care Provider Unava ilable Encounter Details Date Type Department Care Team (Latest Contact Info) Description 02/12/2000 Outpatient Historical [facility] Oseas Guidry MD [address] [place] [phone] Bronchitis, not specified as acute or chronic (Primary Dx); Nonallopathic lesion of thoracic region, not elsewhere classified Social History Tobacco Use Types Packs/Day Years Used Date Smoking Tobacco: Never Assessed Comments Unknown Sex and Gender Information Value Date Recorded Sex Assigned at Not on file 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
--- OUTSIDE RECORDS SUMMARY | 2025-04-18 01:37 | XMS_ITS | Patient Health Record ---
Author Organization [facility] Address [address] [place], [place] [id number] Care Team Providers Care Brass Burnisher Name Role Phone Michelle Xavier Primary Care Provider Jeannette Howell MD, Dillon Unavailable [phone] Aisha VILLALPANDO, Dominic Unavailable Unavailable Tarah Villalobos Unavailable [phone] Allergies Allergen (clinical drug ingredient) Drug/Non Drug Allergy documented on EMR Reaction Allergy Type Onset Date Status Information temporarily unavailable NSAIAs (uncoded) kidney issues Allergy Active Information temporarily unavailable Toradol Unknown Drug Allergy Active Information temporarily unavailable aspirin Unknown Drug Allergy Active Information temporarily unavailable Mobic Unknown Drug Allergy Active Results Component Value Reference Range Notes [employer] Results Reviewed date:12/03/2024 07:57:02 AM Interpretation: Performing Lab:[id number] Remote Assistant, [address] [address] [facility] [id number] Justina Nunez MD Notes/Report: Remote Assistant, [address] [address] [facility], [facility] [address], [place] [address], , L ab Director: Justina Nunez MD, CLIA ID# [id number] Hydromorphone Quantification positive-4916.256 50 ng/m L BENZODIAZEPINES SCREEN negative 200 ng/mL cTHC (Marijuana metabolite) Quantification negative 15 ng/mL CREATININE normal-197.8 >20 mg/dL mg/dL OXIDANT normal-0 <200 ug/mL ug/mL PH normal-6.1 4.5 - 9.5 SPECIFIC GRAVITY normal-1.014 1.003 - 1.035 Embedded PDF Reviewed date:12/03/2024 07:57:20 AM Interpretation: Performing Lab: Notes/Report: [facility], [address], [place] [address], , L ab Director: Justina Nunez MD, CLIA ID# [id number] Urine tox screen / MS if ind icated Reviewed date:12/03/2024 07:58:02 AM Interpretation:Consistent Performing Lab: Notes/Report: Consistent Urine tox screen / MS if ind icated Reviewed date:12/03/2024 07:58:02 AM Interpretation:Consistent Performing Lab: Notes/Report: Consistent Urine tox screen / MS if ind icated Reviewed date:12/03/2024 07:58:02 AM Interpretation:Consistent Performing Lab: Notes/Report: Consistent Urine tox screen / MS if ind icated Reviewed date:07/12/2024 09:57:55 AM Interpretation:Consistent Performing Lab: Notes/Report: Consistent Reason For Referral No Information Medications Medication SIG (Take, Route, Frequency, Duration) Notes Start Date End Date Status fludrocortisone 0.1 mg 1 tab(s) orally o nce a day; Duration: 30 day(s) Active promethazine 50 mg 1 tab orally every 6 hours, as needed Active Ativan 2 mg 1/2 tab BID orally 1 tab at HS Active predniSONE 10 mg 1 tab(s) orally once a day Active amitriptyline 10 mg 1 tab orally once a day (at bedtime) Active Ozempic (0.25 mg or 0.5 mg dose) Active Narcan 4 mg/0.1 mL as directed intranasally once 11/12/2019 Active Latuda 80 mg 1 tab orally once a day 01/19/2021 Active LaMICtal 200 mg 1 tab orally QD; Duration: 30 day(s) Active telmisartan 80 mg 1 tab(s) orally once a day; Duration: 30 day(s) Active Requip 0.25 mg 1 tab orally 3 times a day Active hydrochlorothiazide-spir onolactone 25 mg-25 mg 1 tab(s) orally once a day; Duration: 30 day(s) Active Protonix 40 mg 1 tab orally BID; Duration: 30 day(s) Active Ambien 10 mg 1 tab(s) orally once a day (at bedtime) 01/19/2024 Active HYDROmorphone 4 mg 1-2 tabs orally Q4-6 H prn pain (max 4 1/2 per day; hold within 4H of planned sleep); Duration: 28 days Do not fill prior to 03/02/25. ICD-10: G89.29 01/24/2025 Active Lyrica 25 mg 1 cap orally 3 times a day Active HYDROmorphone 4 mg 1-2 tabs orally Q4-6 H prn pain (max 4 1/2 per day; hold within 4H of planned sleep); Duration: 28 days Do not fill prior to 02/02/25. ICD-10: G89.29 01/24/2025 Active lithium 600 mg 1 tab orally 2 times a day Active Vitamin D2 50,000 intl units 1 cap orally once a week Active tiZANidine 4 mg 2 tabs orally Q6H pr n spasm; Duration: 28 days Active levothyroxine 100 mcg (0.1 mg) 1 tab orally once a day Active Topamax 75 1 tab orally 2 times a day Active HYDROmorphone 4 mg 1-2 tabs orally Q4-6 H prn pain (max 4 1/2 per day; hold within 4H of planned sleep); Duration: 28 days Do not fill prior to 03/30/25. ICD-10: G89.29 01/24/2025 Active Social History Tobacco Use: Social History Observation Description Date Details (start date - stop date) Never Smoker NA - NA Tobacco use: Question Answer Notes : nonsmoker AUDIT-C (Standard) Question Answer Notes Did you have a drink containing alcohol in the p ast year? No Points 0 Interpretation Negative Problems Problem Type SNOMED Code ICD Code Onset Dates Problem Status W/U Status Risk Notes Problem Information temporarily unavailable Sacroiliitis (720.2) Active confirmed Problem Information temporarily unavailable Lumbosacral spondylosis without myelopathy (721.3) Active confirmed Problem Information temporarily unavailable Lumbar (w/out myelopathy) intervertebral disc disorder (722.10) Active confirmed Problem Information temporarily unavailable Muscle spasm (728.85) Active confirmed Problem Information temporarily unavailable Dysfunctions associated with sleep stages or arousal from sleep (780.56) Active confirmed Problem Information temporarily unavailable Low back pain (724.2) Active confirmed Problem Information temporarily unavailable Neck pain (723.1) Active confirmed Problem Information temporarily unavailable Thoracic pain (724.1) Active confirmed Problem Information temporarily unavailable Pelvic/Hip pain (719.45) Active confirmed Problem Information temporarily unavailable LONG-TERM USE MEDS NEC (V58.69) Active confirmed R/O substance abuse Problem Information temporarily unavailable Anxiety State, other, specified: procedure related (300.09) Active confirmed Problem Information temporarily unavailable Cervical (w/out myelopathy) intervertebral disc disorder (722.0) Active confirmed Problem Information temporarily unavailable Lumbar spinal stenosis (724.02) Active confirmed Problem Information temporarily unavailable Postlaminectomy syndrome of lumbar region (722.83) Active confirmed Problem Information temporarily unavailable Sacroiliitis, not elsewhere classified (M46.1) Active confirmed Problem Information temporarily unavailable Low back pain (M54.5) Active confirmed Problem Information temporarily unavailable Spondylosis without myelopathy or radiculopathy, lumbar region (M47.816) Active confirmed Problem Information temporarily unavailable snf (current) use of opiate analgesic (Z79.891) Active confirmed Problem Information temporarily unavailable Pain in right knee (M25.561) Active confirmed Problem Information temporarily unavailable Pain in left knee (M25.562) Active confirmed Problem Information temporarily unavailable Other specified anxiety disorders (F41.8) Active confirmed Problem Information temporarily unavailable Other sleep disorders (G47.8) Active confirmed Problem Information temporarily unavailable Other chronic pain (G89.29) Active confirmed Problem Information temporarily unavailable Essential (primary) hypertension (I10) Active confirmed Problem Information temporarily unavailable Pain in right shoulder (M25.511) Active confirmed Problem Information temporarily unavailable Pain in left shoulder (M25.512) Active confirmed Problem Information temporarily unavailable Spinal stenosis, lumbar region (M48.06) Active confirmed Problem Information temporarily unavailable Cervical disc disorder with radiculopathy, unspecified cervical region (M50.10) Active confirmed Problem Information temporarily unavailable Cervical disc disorder with radiculopathy, mid-cervical region (M50.12) Active confirmed Problem Information temporarily unavailable Intervertebral disc disorders with radiculopathy, lumbar region (M51.16) Active confirmed Problem Information temporarily unavailable Cervicalgia (M54.2) Active confirmed Problem Information temporarily unavailable Pain in thoracic spine (M54.6) Active confirmed Problem Information temporarily unavailable Myalgia (M79.1) Active confirmed Problem Information temporarily unavailable Postlaminectomy syndrome, not elsewhere classified (M96.1) Active confirmed Problem Information temporarily unavailable Other specified injuries of head, initial encounter (S09.8XXA) Active confirmed Problem Information temporarily unavailable Spinal stenosis, lumbar region with neurogenic claudication (M48.062) Active confirmed Problem Information temporarily unavailable Myalgia, other site (M79.18) Active confirmed Problem Information temporarily unavailable Vertebrogenic low back pain (M54.51) Active confirmed Vital Signs Temperature 97.7 degrees Fahrenheit 01/24/2025 Oximetry 99 % 01/24/2025 Blood pressure diastolic 88 mm Hg 01/24/2025 Height 65 in 01/24/2025 Blood pressure systolic 114 mm Hg 01/24/2025 Weight 197.4 lbs 01/24/2025 BMI 32.85 kg/m2 01/24/2025 Encounters Encounter Location Date Provider Diagnosis [facility] [address] [place], [place] [id number] 04/24/2024 Dillon Howell Vertebrogenic low ba ck pain M54.51 ; Other chronic pain G89.29 ; Myalgia, other site M79.18 ; Other sleep disorders G47.8 and technical business analyst (current) use of opiate analgesic Z79.891 [facility] [address] [place], [place] [id number] 05/17/2024 Tarah Thomas Vertebrogenic low ba ck pain M54.51 ; Other chronic pain G89.29 ; Myalgia, other site M79.18 and Other sleep disorders G47.8 [facility] [address] [place], [place] [id number] 07/12/2024 Dillon Howell Vertebrogenic low ba ck pain M54.51 ; Other chronic pain G89.29 ; Myalgia, other site M79.18 ; Other sleep disorders G47.8 and technical business analyst (current) use of opiate analgesic Z79.891 [facility] [address] [place], [place] [id number] 09/27/2024 Dillon Howell Vertebrogenic low ba ck pain M54.51 ; Other chronic pain G89.29 ; Myalgia, other site M79.18 and Other sleep disorders G47.8 [facility] [address] [place], [place] [id number] 11/29/2024 Dillon Howell Vertebrogenic low ba ck pain M54.51 ; Other chronic pain G89.29 ; Myalgia, other site M79.18 ; Essential (primary) hypertension I10 ; Other sleep disorders G47.8 and snf (current) use of opiate analgesic Z79.891 [facility] [address] [place], [place] [id number] 01/24/2025 Dillon Mackayria Vertebrogenic low ba ck pain M54.51 ; Other chronic pain G89.29 ; Myalgia, other site M79.18 and Other sleep disorders G47.8 [facility] [address] [place], [place] [id number] 05/30/2024 Dillon Dante [facility] [address] [place], [place] [id number] 07/18/2024 Diloln Howell [facility] [address] [place], [place] [id number] 09/06/2024 Dillon Howell Assessments Encounter Date Diagnosis (ICD Code) Assessment Notes Treatment Notes Treatment Clinical Notes Section Notes 01/24/2025 Other chronic pain (ICD-10 - G89.29) Patient reports that taking her pain medication allows her to work in her garden. Plan to continue oral opioid medication at today's visit. 01/24/2025 Vertebrogenic low back pain (ICD-10 - M54.51) Chronic axial lumbosacral spine pain. 05/17/2024 Vertebrogenic low back pain (ICD-10 - M54.51) Chronic axial lumbosacral spine pain. 04/24/2024 Vertebrogenic low back pain (ICD-10 - M54.51) Chronic axial lumbosacral spine pain. 11/29/2024 Other chronic pain (ICD-10 - G89.29) Patient reports that taking her pain medication allows her to get her garden ready for planting. Plan to continue oral opioid medication management. 11/29/2024 Vertebrogenic low back pain (ICD-10 - M54.51) Chronic axial lumbosacral spine pain. 09/27/2024 Other chronic pain (ICD-10 - G89.29) Patient reports that taking her pain medication allows her to spend more time with family. Plan to continue oral opioid medication management. 09/27/2024 Vertebrogenic low back pain (ICD-10 - M54.51) Chronic axial lumbosacral spine pain. 07/12/2024 Other chronic pain (ICD-10 - G89.29) Patient reports that taking her pain medication allows her to prepare for the upcoming holiday season. Plan to continue oral opioid medication management. 07/12/2024 Vertebrogenic low back pain (ICD-10 - M54.51) Chronic axial lumbosacral spine pain. 07/12/2024 Myalgia, other site (ICD-10 - M79.18) Patient has reported benefit with use of tizanidine for her spasms. Plan to continue. 09/27/2024 Myalgia, other site (ICD-10 - M79.18) Patient has reported benefit with use of tizanidine for her spasms. Plan to continue. 11/29/2024 Myalgia, other site (ICD-10 - M79.18) Patient has reported benefit with use of tizanidine for her spasms. Plan to continue. 04/24/2024 Other chronic pain (ICD-10 - G89.29) Patient reports that taking her pain medication allows her to be more active. Plan to continue oral opioid medication management. 04/24/2024 Myalgia, other site (ICD-10 - M79.18) Patient has reported benefit with use of tizanidine for her spasms. Plan to continue. 05/17/2024 Other chronic pain (ICD-10 - G89.29) Patient reports that taking her pain medication allows her to do Fall cleaning. Plan to continue oral opioid medication management. 05/17/2024 Myalgia, other site (ICD-10 - M79.18) Patient has reported benefit with use of tizanidine for her spasms. Plan to continue. 01/24/2025 Myalgia, other site (ICD-10 - M79.18) Patient has reported benefit with use of tizanidine for her spasms. Plan to continue. 05/17/2024 Other sleep disorders (ICD-10 - G47.8) Plan to continue to restrict opioid use in relation to sleep for safety concerns. 01/24/2025 Other sleep disorders (ICD-10 - G47.8) Plan to continue to restrict opioid use in relation to sleep for safety concerns. 04/24/2024 Other sleep disorders (ICD-10 - G47.8) Plan to continue to restrict opioid use in relation to sleep for safety concerns. 11/29/2024 Essential (primary) hypertension (ICD-10 - I10) Education sheet given at today's visit; patient to address with PCP. 09/27/2024 Other sleep disorders (ICD-10 - G47.8) Plan to continue to restrict opioid use in relation to sleep for safety concerns. 07/12/2024 Other sleep disorders (ICD-10 - G47.8) Plan to continue to restrict opioid use in relation to sleep for safety concerns. 07/12/2024 snf (current) use of opiate analgesic (ICD-10 - Z79.891) 2022 opioid (OUD) risk tool score = 4. This places the patient in the high risk category, warranting more frequent screening. Plan 2 month visit pending continued compliance with patient's Treatment Agreement. Plan urine toxicology screen today to monitor for presence of any unprescribed or illicit controlled substance(s), as well as prescribed hydromorphone. 11/29/2024 Other sleep disorders (ICD-10 - G47.8) Plan to continue to restrict opioid use in relation to sleep for safety concerns. 04/24/2024 technical business analyst (current) use of opiate analgesic (ICD-10 - Z79.891) Patient has a total daily MED of 90. This places the patient in the [facility] high risk category for total daily opioid usage. Patient verbalized understanding to hold opioid and relaxant medications in the setting of low blood pressure (she takes her BP three times per day). 11/29/2024 technical business analyst (current) use of opiate analgesic (ICD-10 - Z79.891) 2022 opioid (OUD) risk tool score = 4. This places the patient in the high risk category, warranting more frequent screening. Plan 2 month visit pending continued compliance with patient's Treatment Agreement. Plan urine toxicology screen today to monitor for presence of any unprescribed or illicit controlled substance(s), as well as prescribed hydromorphone. POCT results are positive for THC and opiates; will need to send specimen to an outside lab for definitive testing. 07/12/2024 Other The service was provided by TORSTEN Nicholas, as part of the ongoing care plan established by Dillon Howell MD, who was present in the office for direct supervision during the encounter. 09/27/2024 Other The service was provided by TORSTEN Nicholas, as part of the ongoing care plan established by Dillon Howell MD, who was present in the office for direct supervision during the encounter. 11/29/2024 Other The service was provided by TORSTEN Nicholas, as part of the ongoing care plan established by Dillon Howell MD, who was present in the office for direct supervision during the encounter. 01/24/2025 Other The service was provided by TORSTEN Nicholas, as part of the ongoing care plan established by Dillon Howell MD, who was present in the office for direct supervision during the encounter. Patient was provided with a letter at today's visit informing patient that this clinic is closing due to Dr. Howell's group home; see scanned document. Terminal prescriptions were given to the patient along with tapering instructions. 05/17/2024 Other Patient reports she is scheduled for left RTC repair on 05/30/[address] Valladares at [facility]. 04/24/2024 Other Plan Of Treatment No Information Insurance Providers Payer Name Payer Address Payer Phone Subscriber Number Group Number Insured Name Patient Relationship to Insured Coverage Start Date Coverage End Date [employer] [address] [place] [phone] [id number] Nina Garcia Self - patient is the insured Medical (General) History Medical History History ICD Code Chronic pain Low back, mid back and neck pain Lumbar spondyosis, spinal st enosis, spondylolisthesis and postlaminectomy syndrome Sacroiliitis Hip pain, right Knee pain, radiology studies completed, [facility] orthopedic evaluation by Dr. Hernandez (no treatment recommendations were given per prior patient report) Left shoulder pain Irritable bowel syndrome Thyroid issues Hypertension, to include hypertensive cr pablo episodes Diverticulitis Pulmonary embolism, left Enlarged spleen Enlarged liver Cardiac issues Coronary artery disease, UT (mild per pr ior patient report) A-fib Gout Bipolar disorder Depression Shock / hypotension (hospitalization) Sleep disorder (negative rem ote sleep study as per prior patient report; patient had declinced further work up) Obesity, mild Surgical History Surgery Date(Month/Year) Cholecystectomy, 1999 Hysterectomy, 2000 Appendectomy, 2009 Mass removed from ovary, 05/2011 Right L5-S1 laminectomy, 01/06/12 Cervical spine surgery, 10/01/13 Colonoscopy, 10/31/17 Bladder suspension, performed at [facility] by Dr. Haley, 02/2018 Thyroidectomy, performed at [facility] in [place], [place], 05/2019 Colonoscopy, performed at [facility] in [place], [place], 09/2019 Right L4-5 laminectomy, performed at [facility] by Dr. Yuri Galloway, 01/01/22 Colonoscopy, 06/18/22 C4-C5 ACDFF, removal of C5-C 6 hardware, performed at [facility] by Dr. Estuardo Lopes, 12/22/22 Rotator cuff repair, left, performed at [facility] by Dr. Valladares, 05/30/24 EGD and colonoscopy, performed at [facility] in [place], [place], 09/06/24 Hospitalization History Reason Date(Month/Year) Low blood pressure, treated at [facility], 12/27 01/20 Blood stool and abdominal pain, treated at [facility], 09/04/24 - 09/05/24 Low blood pressure, treated at [facility], 05/30 024 Shock / hypotension, treated at [facility], - 03/12/24 ER visit for mild heart attack and A-fi b treated at [facility], 06/2022 High blood pressure, treated at [facility], - 07/23/21 High blood pressure, treated at [facility] in [place], [place], 03/2020 Stomach problems, treated at [facility] in [place], [place], 04/05/19 ER visit for blood pressure, 04/12/17 ER visit for hip pain and blood pressure , 09/2016 High blood pressure and vomiting, 6 Blood pressure, 02/2016 Thyroid, migraines and hypertension, Thyroid storm, 06/2015 High blood pressure, 03/09/15 ICU admission (cardiac), 06/2014 Cardiac issues and hematemesis, 08/28/13 Cardiac issues, 02/2013 Cardiac issues, 08/2011 Colitis, 10/2010 Irritable bowel syndrome
--- OUTSIDE RECORDS SUMMARY | 2025-04-18 01:37 | XMS_ITS | Encounter Summary ---
Author Organization [facility] Address [address] [place] [address] Care Team Providers Care Mold Stamper Name Role Phone Non-Staff, Physician Primary Care Provider Unava ilable Encounter Details Date Type Department Care Team (Latest Contact Info) Description 08/31/2000 Outpatient Historical [facility] Shaheen Bey MD [address] [place] [address] Constipation (Primary Dx); Abdominal pain, right upper quadrant; Abdominal pain, left lower quadrant Social History Tobacco Use Types Packs/Day Years Used Date Smoking Tobacco: Never Assessed Comments Unknown Sex and Gender Information Value Date Recorded Sex Assigned at Not on file 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
--- OUTSIDE RECORDS SUMMARY | 2025-04-18 01:37 | XMS_ITS | Encounter Summary ---
Author Organization [facility] Address [address] [place] [address] Care Team Providers Care Distributor Advertising Material Name Role Phone Non-Staff, Physician Primary Care Provider Unava ilable Encounter Details Date Type Department Care Team (Latest Contact Info) Description 01/22/2000 Outpatient Historical [facility] Oseas Guidry MD [address] [place] [address] Chest pain, unspecified (Primary Dx); Headache(784.0); Dyspepsia and other specified disorders of function of stomach Social History Tobacco Use Types Packs/Day Years Used Date Smoking Tobacco: Never Assessed Comments Unknown Sex and Gender Information Value Date Recorded Sex Assigned at Not on file 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
--- OUTSIDE RECORDS SUMMARY | 2025-04-18 01:37 | XMS_ITS | Encounter Summary ---
Author Organization [facility] Address [address] [place] [address] Care Team Providers Care Java Groovy Developer Name Role Phone Non-Staff, Physician Primary Care Provider Unava ilable Encounter Details Date Type Department Care Team (Latest Contact Info) Description 01/26/2000 Outpatient Historical [facility] Oseas Guidry MD [address] [place] [address] Chest pain, unspecified (Primary Dx); Nonallopathic lesion of thoracic region, not elsewhere classified; Personal history of endocrine, metabolic, and immunity disorders Social History Tobacco Use Types Packs/Day Years Used Date Smoking Tobacco: Never Assessed Comments Unknown Sex and Gender Information Value Date Recorded Sex Assigned at Not on file Legal Sex Female 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
--- OUTSIDE RECORDS SUMMARY | 2025-04-18 01:37 | XMS_ITS | Encounter Summary ---
Author Organization [facility] Address [address] [place] [address] Care Team Providers Care Fire Management Technician Name Role Phone Non-Staff, Physician Primary Care Provider Unava ilable Encounter Details Date Type Department Care Team (Latest Contact Info) Description 12/13/2000 Outpatient Historical [facility] Oseas Guidry MD [address] [place] [address] Abdominal pain, unspecified site (Primary Dx); Constipation; Encounter for long-term (current) use of other medications Social History Tobacco Use Types Packs/Day Years Used Date Smoking Tobacco: Never Assessed Comments Unknown Sex and Gender Information Value Date Recorded Sex Assigned at Not on file Legal Sex Female 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
--- OUTSIDE RECORDS SUMMARY | 2025-04-18 01:37 | XMS_ITS | Encounter Summary ---
Author Organization [facility] Address [address] [place] [address] Care Team Providers Care Sock Drier Name Role Phone Non-Staff, Physician Primary Care Provider Unava ilable Encounter Details Date Type Department Care Team (Late st Contact Info) Description 04/17/2001 Outpatient Historical [facility] Sekou Ma MD [address] [address] Other specified pre-operative examination (Primary Dx); Abdominal pain, generalized; Dysmenorrhea Social History Tobacco Use Types Packs/Day Years Used Date Smoking Tobacco: Never Assessed Comments Unknown Sex and Gender Information Value Date Recorded Sex Assigned at Not on file Legal Sex Female 3:18 AM MANAGER PHARMACY Gender Identity Not on file Sexual Orientation Not on file documented as of this encounter Plan of Treatment Not on file documented as of this encounter Visit Diagnoses Diagnosis Other specified pre-operative examination- Primary Abdominal pain, generalized Dysmenorrhea documented in this encounter Care Teams Sock Drier Relationship Specialty Start Date End Date Non-Staff, Physician NO ADDRESS ON FILE PCP - General 04/02/20 documented as of this encounter
--- OUTSIDE RECORDS SUMMARY | 2025-04-18 01:37 | XMS_ITS | Encounter Summary ---
Author Organization [facility] Address [address] [place] [address] Care Team Providers Care Embossing Press Operator Name Role Phone Non-Staff, Physician Primary Care Provider Unava ilable Encounter Details Date Type Department Care Team (Latest Contact Info) Description 02/08/2001 Outpatient Historical [facility] Trent Reed NO ADDRESS ON FILE Headache(784.0) (Primary Dx) Social History Tobacco Use Types Packs/Day Years Used Date Smoking Tobacco: Never Assessed Comments Unknown Sex and Gender Information Value Date Recorded Sex Assigned at Not on file Legal Sex Female 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
--- OUTSIDE RECORDS SUMMARY | 2025-04-18 01:37 | XMS_ITS | Encounter Summary ---
Author Organization [facility] Address [address] [place] [address] Care Team Providers Care Doll Wig Maker Rooted Hair Name Role Phone Non-Staff, Physician Primary Care Provider Unava ilable Encounter Details Date Type Department Care Team (Latest Contact Info) Description 04/29/1998 Outpatient Historical [facility] [address] [place] [address] August Walker MD NO ADDRESS ON FILE Other screening (Primary Dx); Other known or suspected abnormality, not elsewhere classified, affecting management of mother, antepartum condition or complication; Lymphangioma, any site Social History Tobacco Use Types Packs/Day Years Used Date Smoking Tobacco: Never Assessed Comments Unknown Sex and Gender Information Value Date Recorded Sex Assigned at Not on file Legal Sex Female 3:18 AM ASPHALT SPREADER OPERATOR Gender Identity Not on file Sexual Orientation Not on file documented as of this encounter Plan of Treatment Not on file documented as of this encounter Visit Diagnoses Diagnosis Other screening- Primary Other specified screening Other known or suspected abnormality, not elsewhere classified, affecting management of mother, antepartum condition or complication Lymphangioma, any site documented in this encounter Care Teams Doll Wig Maker Rooted Hair Relationship Specialty Start Date End Date Non-Staff, Physician NO ADDRESS ON FILE PCP - General 04/02/20 documented as of this encounter
--- OUTSIDE RECORDS SUMMARY | 2025-04-18 01:37 | XMS_ITS | Encounter Summary ---
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
--- OUTSIDE RECORDS SUMMARY | 2025-04-18 01:37 | XMS_ITS | Encounter Summary ---
Author Organization [facility] [address] [facility] [address] Care Team Providers Care Web Design Intern Name Role Phone Non-Staff, Physician Primary Care Provider Unava ilable Encounter Details Date Type Department Care Team (Late st Contact Info) Description 02/21/2006 Outpatient Historical [facility] [place] [address] Social History Tobacco Use Types Packs/Day Years Used Date Smoking Tobacco: Never Assessed Comments Unknown Sex and Gender Information Value Date Recorded Sex Assigned at Not on file Legal Sex Female 3:18 AM DAY CARE CENTER DIRECTOR Gender Identity Not on file Sexual Orientation Not on file documented as of this encounter Plan of Treatment Not on file documented as of this encounter Visit Diagnoses Not on filedocumented in this encounter Care Teams Web Design Intern Relationship Specialty Start Date End Date Non-Staff, Physician NO ADDRESS ON FILE PCP - General 04/02/20 documented as of this encounter
--- OUTSIDE RECORDS SUMMARY | 2025-04-18 01:37 | XMS_ITS | Clinical Summary ---
Author Organization [facility] Address [address] [place] [address] Care Team Providers Care Glass Cleaner Name Role Phone Non-Staff, Physician Primary Care Provider Unava ilable Allergies Active Allergy Reactions Criticality Noted Date Comments Aspirin Other (See Comments) 04/05/2019 Was instructed not to take medication Ketorolac Unknown 04/28/2011 Meloxicam Unknown 04/28/2011 Nsaids (Non-Steroidal Anti-Inflammatory Drug) Other (See Comments) 04/05/2019 Cant take because of [place] Medications lamoTRIgine (LaMICtal) 200 mg tablet Take 200 mg by mouth daily. 9 Active lithium carbonate (ESKALITH CR) 450 mg Controlled Release tablet Take 450 mg by mouth daily. 9 Active lithium carbonate (ESKALITH IR) 600 mg Capsule Take 600 mg by mouth daily at bedtime. 9 Active LORazepam (ATIVAN) 2 mg tablet Take 2 mg by mouth daily at bedtime. 9 Active carvediloL (COREG) 3.125 mg tablet Take 3.125 mg by mouth daily. 9 Active LORazepam (ATIVAN) 1 mg tablet Take 1 mg by mouth 2 times daily. 9 Active hydroCHLOROthia zide 25 mg tablet Take 25 mg by mouth daily. 9 Active topiramate (TOPAMAX) 100 mg tablet Take 100 mg by mouth 2 times daily. 9 Active HYDROmorphone (DILAUDID) 4 mg tablet Take 4 mg by mouth every 4 hours as needed for Pain. 4mg tabs, 1-2 tabs every 4-6 hours as needed (verified through pharmacy rupinder) 9 Active pantoprazole (PROTONIX) 40 mg Tablet, Delayed Release (E.C.) Take 40 mg by mouth daily. 9 Active cloNIDine HCL (CATAPRES) 0.3 mg tablet Take 0.3 mg by mouth 3 times daily. 9 Active levothyroxine 300 mcg tablet Take 1 Tablet (300 mcg) by mouth daily in the morning. 30 Tablet 11 1 Active furosemide (LASIX) 20 mg tablet 1 tab 0 Active HYDROcodone-fran taminophen (NORCO) 5-325 mg tablet 1-2 tabs po 2 Active isosorbide mononitrate (IMDUR) 30 mg Extended Release 24 hour tablet Take 30 mg by mouth daily in the morning. Active lurasidone (LATUDA) 60 mg Tablet tablet 1 tab 1 Active metFORMIN (GLUCOPHAGE) 500 mg tablet 2 times daily. A ctive naloxone (NARCAN) 4 mg/spray [place], Non-Aerosol as directed 0 Active ondansetron (ZOFRAN ODT) 8 mg Tablet, Rapid Dissolve Take 8 mg by mouth. Active promethazine (PHENERGAN) 25 mg tablet Take 25 mg by mouth every 6 hours as needed. Active tiZANidine (ZANAFLEX) 4 mg Capsule Take 8 mg by mouth 4 times daily. Active semaglutide (Ozempic) 0.25 mg or 0.5 mg(2 mg/1.5 mL) Pen Injector Inject by subcutaneous injection. Active diltiaZEM (DILACOR XR) 240 mg Extended Release capsule Take 240 mg by mouth 2 times daily. Active Active Problems Problem Noted Date Diagnosed Date Chest pain 04/02/2020 Postsurgical hypothyroidism 09/13/2019 S/P thyroidectomy 06/22/2019 Infectious gastroenteritis 04/06/2019 Nausea vomiting and diarrhea 04/06/2019 Dehydration 04/06/2019 Chronic midline low back pain without sciatica 0 04/06/2019 Bipolar disorder, unspecified 04/06/2019 Generalized abdominal pain 04/05/2019 Immunizations Immunization Administration Dates Next Due Influenza [...] at Not on file Legal Sex Female 1:20 PM EPIC WILLOW SPECIALIST Gender Identity Not on file Sexual Orientation Not on file Last Filed Vital Signs Vital Sign Reading Time Taken Comments Blood Pressure 155/87 02/16/2022 1:52 AM CDT Pulse 81 02/16/2022 1:52 AM CDT Temperature 36.9 C (98.5 F) 02/15/2022 11:58 PM CDT Respiratory Rate 19 02/16/2022 1:52 AM CDT Oxygen Saturation 99% 02/16/2022 1:52 AM CDT Inhaled Oxygen Concentration - - Weight 97.5 kg (215 lb) 02/15/2022 11:58 PM CDT Height 165.1 cm (5' 5 ) 02/15/2022 11:58 PM CDT Body Mass Index 35.78 02/15/2022 11:58 PM CDT Plan of Treatment Health Maintenance Due Date Last Done Comments DTAP/TDAP/TD VACCINES (1 - Tdap) 1997 HEPATITIS B VACCINES (1 of 3 - 19+ 3-dose series) 01/27 HPV/Cotest (21-29) 1999 CERVICAL CANCER SCREENING 02/10/2008 HPV/Cotest (30-65) 02/10/2008 PAP SMEAR 02/10/2008 BREAST CANCER SCREENING 2018 FIT-DNA Q 3 years 2023 FIT/FOBT Q 1 year 2023 Flex Sig/CT Colonography Q 5 years 2023 COLORECTAL SCREENING 10/26/2024 10/26/2019 Colorectal Cancer Screening 10/26/2024 INFLUENZA VACCINE (#1) 2025 06/04/2019 Medical Devices Implanted Type Area Truck Technician Device Identifier Shelf Expiration Date Model / Serial / Lot Hemostatic Surgifoam [id number] 1971 - [id number] Implanted:05/29 by Quinten Medeiros MD (Quantity not on file) Hemostatic N/A: Neck [employer]- [employer] 03/29/20231971 [id number] Procedures Procedure Name Priority Date/Time Associated Diagnosis Comments COLONOSCOPY REPORT 10/26/2019 11 :43 AM EPIC WILLOW SPECIALIST from Last 3 Months or Most Recently Relevant to Health Maintenance Results * COLONOSCOPY REPORT (10/26/2019 11:43 AM EPIC WILLOW SPECIALIST) Narrative Procedure Note Kurt Howard DO - 10/26/2019 11:43 AM CST Procedures signed by Kurt Howard DO at 10/26/2019 11:43 AM Author: Kurt Howard DO Service: -- Author Type: Physician Filed: 10/26/2019 11:43 AM Date of Service: 10/26/2019 11:43 AM Status:Signed Sew On Operator: Kurt Howard DO (Physician) Procedure Orders 1. COLONOSCOPY REPORT [[id number]] ordered by Kurt Howard DOat 10/26/[address] [place] [address] Patient Name: Nina Garcia Procedure Date: 10/26/2019 [...] 11:26:45 AM Scope Out: 11:40:06 AM [address] [place], [place] Kurt Howard DO GI PROCEDURE ORDERABLES Edited Result - Final from Last 3 Months or Most Recently Relevant to Health Maintenance Insurance [facility] OPTIONS PPO [id number] Care Teams Glass Cleaner Relationship Specialty Start Date End Date Non-Staff, Physician NO ADDRESS ON FILE PCP - General 04/02/20
--- OUTSIDE RECORDS SUMMARY | 2025-04-18 01:37 | XMS_ITS | Encounter Summary ---
Author Organization [facility] Address [address] [place] [address] Care Team Providers Care Medical Education Specialist Name Role Phone Non-Staff, Physician Primary Care Provider Unava ilable Encounter Details Date Type Department Care Team (Latest Contact Info) Description 05/10/2000 Outpatient Historical [facility] Oseas Guidry MD [address] [place] [address] Anal or rectal pain (Primary Dx); Blood in stool Social History Tobacco Use Types Packs/Day Years Used Date Smoking Tobacco: Never Assessed Comments Unknown Sex and Gender Information Value Date Recorded Sex Assigned at Not on file Legal Sex Female 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
--- OUTSIDE RECORDS SUMMARY | 2025-04-18 01:37 | XMS_ITS | Encounter Summary ---
Author Organization [facility] Address [address] [place] [address] Care Team Providers Care Train Engineer Name Role Phone Non-Staff, Physician Primary Care Provider Unava ilable Encounter Details Date Type Department Care Team (Late st Contact Info) Description 03/20/2001 Outpatient Historical [facility] [place] [address] [place] [phone] Sekou Ma MD [address] [facility] [address] [place], [place] [address] Irregular menstruation (Primary Dx); Dyspareunia; Unspecified symptom associated with female genital organs Social History Tobacco Use Types Packs/Day Years Used Date Smoking Tobacco: Never Assessed Comments Unknown Sex and Gender Information Value Date Recorded Sex Assigned at Not on file Legal Sex Female 3:18 AM E MAIL 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
--- OUTSIDE RECORDS SUMMARY | 2025-04-18 01:37 | XMS_ITS | Encounter Summary ---
Author Organization [facility] Address [address] [facility] Attn: [place] [address] Care Team Providers Care Marble Installer Name Role Phone Non-Staff, Physician Primary Care Provider Unava ilable Encounter Details Date Type Department Care Team (Late st Contact Info) Description 04/25/2001 Inpatient Historical Sekou Ma MD [address] [address] Social History Tobacco Use Types Packs/Day Years Used Date Smoking Tobacco: Never Assessed Comments Unknown Sex and Gender Information Value Date Recorded Sex Assigned at Not on file Legal Sex Female 3:18 AM DOCK GRADER Gender Identity Not on file Sexual Orientation Not on file documented as of this encounter Plan of Treatment Not on file documented as of this encounter Visit Diagnoses Not on filedocumented in this encounter Care Teams Marble Installer Relationship Specialty Start Date End Date Non-Staff, Physician NO ADDRESS ON FILE PCP - General 04/02/20 documented as of this encounter
--- OUTSIDE RECORDS SUMMARY | 2025-04-18 01:38 | XMS_ITS | Encounter Summary ---
Author Organization [facility] Address [address] [place] [address] Care Team Providers Care Apartment Assistant Manager Name Role Phone Non-Staff, Physician Primary Care Provider Unava ilable Encounter Details Date Type Department Care Team (Latest Contact Info) Description 03/09/2006 Outpatient Historical [facility] [place] [address] [facility] [address] [place] [address] Quinten Aviles MD [facility] [address] [facility] [address] [place] [address] Anal or Rectal Pain (Primary Dx); Other Specified Disorder of Rectum and Anus Social History Tobacco Use Types Packs/Day Years Used Date Smoking Tobacco: Never Assessed Comments Unknown Sex and Gender Information Value Date Recorded Sex Assigned at Not on file Legal Sex Female 3:18 AM CRYSTAL GAZER Gender Identity Not on file Sexual Orientation Not on file documented as of this encounter Plan of Treatment Not on file documented as of this encounter Visit Diagnoses Diagnosis Anal or rectal pain- Primary Other specified disorder of rectum and anus documented in this encounter Care Teams Apartment Assistant Manager Relationship Specialty Start Date End Date Non-Staff, Physician NO ADDRESS ON FILE PCP - General 04/02/20 documented as of this encounter
--- OUTSIDE RECORDS SUMMARY | 2025-04-18 01:38 | XMS_ITS | Encounter Summary ---
Author Organization [facility] Address [address] [place] [address] Care Team Providers Care Research Group Director Name Role Phone Non-Staff, Physician Primary Care Provider Unava ilable Encounter Details Date Type Department Care Team (Late st Contact Info) Description 03/22/2006 Outpatient Historical [facility] Quinten Aviles MD [address] [place] [address] [address] [place] [phone] Social History Tobacco Use Types Packs/Day Years Used Date Smoking Tobacco: Never Assessed Comments Unknown Sex and Gender Information Value Date Recorded Sex Assigned at Not on file Legal Sex Female 3:18 AM ACCOUNTS PAYABLE CLERK Gender Identity Not on file Sexual Orientation Not on file documented as of this encounter Plan of Treatment Not on file documented as of this encounter Visit Diagnoses Not on filedocumented in this encounter Care Teams Research Group Director Relationship Specialty Start Date End Date Non-Staff, Physician NO ADDRESS ON FILE PCP - General 04/02/20 documented as of this encounter
--- OUTSIDE RECORDS SUMMARY | 2025-04-18 01:38 | XMS_ITS | Encounter Summary ---
Author Organization [facility] Address [address] [place] [address] Phone Care Team Providers Care Economics Lecturer Name Role Phone Michelle Rico Primary Care Provider [phone] Encounter Details Date Type Department Care Team (Late st Contact Info) Description 05/24/2019 Orders Only [facility] [address] [place] [address] Chronic kidney disease, stage 3 (moderate) (HCC); Hypertension Social History Tobacco Use Types Packs/Day Years Used Date Smoking Tobacco: Never Assessed Comments Unknown Sex and Gender Information Value Date Recorded Sex Assigned at Not on file Legal Sex Female 11:25 AM EDT Gender Identity Not on file Sexual Orientation Not on file documented as of this encounter Plan of Treatment Not on file documented as of this encounter Visit Diagnoses Diagnosis Chronic kidney disease, stage 3 (moderate) (HCC) Hypertension documented in this encounter Care Teams Economics Lecturer Relationship Specialty Start Date End Date Michelle Rico FNP [address] [place] PCP - General 09/26/19 documented as of this encounter
--- OUTSIDE RECORDS SUMMARY | 2025-04-18 01:38 | XMS_ITS | Patient Health Record ---
Author Organization [facility] Address [address] [place] [address] Care Team Providers Care Furniture Shampooer Name Role Phone Michelle Xavier Primary Care Provider Unav ailable Keke Arreaga Unavailable [phone] Brant Miller Unavailable [phone] Estuardo Lopes Unavailable [phone] Leslee Plunkett Unavailable [phone] Eyad Valladares Unavailable [phone] Thania Cardenas Unavailable [phone] Allergies Allergen (clinical drug ingredient) Drug/Non Drug Allergy documented on EMR Reaction Allergy Type Onset Date Status Information temporarily unavailable Aspirin , Drug Allergy Active Information temporarily unavailable Coconut Flavor Unknown Drug Allergy Active Information temporarily unavailable meloxicam , Drug Allergy Active Information temporarily unavailable Mobic Unknown Drug Allergy Active Information temporarily unavailable Ketorolac , Drug Allergy Active Results Component Value Reference Range Flag Notes Basic Metabolic Panel (BMP) [id number] Reviewed date:05/28/2024 04:40:31 PM Interpretation: Performing Lab: Notes/Report: PRESURGICAL TESTING; DIAGNOSIS; HYPERTENSION Sodium 138 136-145 MMOL/L Potassium 3.6 3.5-5.1 MMOL/L Chloride 101 98-107 MMOL/L CO2 30.3 20.0-31.0 MMOL/L Glucose Serum 82 71-110 MG/DL Testing p erformed at [facility], [address] [place] [address] [place] [address]. CLIA ID#: [id number] BUN 16 7-21 MG/DL Creat 1.88 .51-1.17 MG/DL HI Q-vexthx-t-benzoquinon e imine (NAPQI) is a metabolite of acetaminophen, NAPQI concentrations of apparoximately 10 mg/L correlation to toxic levels of acetaminophen demonstrates a greater than or equil to 10% change in results. NAPQI concentrations greater than this may lead to falsely depressed results for patient samples. Use of this assay is not recommended for patients undergoing treatment with phenindione, due to the potential for falsely depressed results. GFR 33.0 NA Calculation pe rformed from GFR calculator provided by the [employer]. Glomerular Filtration rate(GRF) is the best overall index of kidney function. Normal GFR varies according to age,sex, body size, and declines with age. The [employer] recommends using the CKD-EPI Creatinine Equation(2020) to estimate GFR. Anion Gap 10 5-15 BUN/Creat Ratio 8.5 12.0-20.0 % LOW Calcium 9.6 8.7-10.4 MG/DL Osmo Serum,Calculated 286 280-300 MOSM/KG CBC w\ Auto Diff 93634 Reviewed date:05/28/2024 04:40:31 PM Interpretation: Performing Lab: Notes/Report: PRESURGICAL TESTING; DIAGNOSIS; HYPERTENSION WBC 7.7 4.5-11.0 X10'3 RBC 4.40 4.00-5.20 X10'6 Hgb 12.8 12.0-16.0 G/DL Hct 41.4 36.0-46.0 % MCV 94.1 80.0-100.0 FL MCH 29.1 27.0-31.0 PG MCHC 30.9 31.0-37.0 G/DL LOW Platelet 229 150-400 X10'3 RDW-SD 52.5 35.0-49.0 FL HI RDW-CV 15.0 12.2-15.6 % MPV 11.5 9.2-12.0 FL Neutro Auto% 57.8 40.0-70.0 % Lymph Auto% 32.1 22.0-44.0 % Caswell Auto% 6.4 3.0-7.0 % Eos Auto% 2.7 2.0-4.0 % Baso Auto% 0.6 0.0-1.0 % Imm Gran% .4 .0-.4 % Neutro Abs 4.45 .80-7.70 Absolute Neutrophil Count 4450 NA Lymph Abs 2.47 .10-4.10 Caswell Abs .49 .20-1.00 Eos Abs .21 .00-.40 Baso Abs .05 .00-.20 Imm Gran Abs .03 .00-.10 NRBC# .00 .00-.20 X10'3 NRBC% .00 .00-.20 /100 intact WBC's MRI Cervical Spine w/o Cont- [id number] (Not yet reviewed by provider) Interpretation: Performing Lab: Notes/Report: See Below For Report MRI Cervical Spine w/o Cont Diagnosis Description: Radiculopathy, cervical region Read See Below For Report MRI Cervical Spine w/o Cont- [id number] (Not yet reviewed by provider) Interpretation: Performing Lab: Notes/Report: [id number]=iSite XR Outside CD (Not yet revie wed by provider) Interpretation: Performing Lab: Notes/Report: ebf=[id number]&org=iSite [id number] Reviewed date:06/04/2024 04:08:43 PM Interpretation: Performing Lab: Notes/Report: [id number] NA WBG was per formed at [facility] under CLIA# [id number]. POCT-WBG Performed By Mina MOISE Schedule Confirmation (Not y et reviewed by provider) Interpretation: Performing Lab: Notes/Report: MRI Cervical Spine w/o Cont Schedule Confirmation (Not y et reviewed by provider) Interpretation: Performing Lab: Notes/Report: MRI Cervical Spine w/o Cont Schedule Confirmation (Not y et reviewed by provider) Interpretation: Performing Lab: Notes/Report: Schedule Confirmation (Not y et reviewed by provider) Interpretation: Performing Lab: Notes/Report: Reason For Referral Reason NCV/EMG LUE to be do ne at [facility] Diagnosis 1 Cervical radiculopat hy (M54.12) Referral Organization [facility] [place] Referring Provider First Name Leslee Referring Provider Last Name Dimitrios Referring Provider Speciality Neurosurge ry Referral Priority Routine Reason Eval and Treat Diagnosis 1 Chronic pain (G89.29 ) Referring Provider First Name Michelle Referring Provider Last Name Trisha Referring Provider Speciality Nurse Prac titioner Referred Organization [facility] Referred Provider Heber Torres Referred Address [address],[place],[address] Referred Provider Specialty Pain Medicin e General Notes Lani Avalos Sandra 01:19:26 PM CDT > mailing npp, scheduled pt Referral Priority Routine Medications Medication SIG (Take, Route, Frequency, Duration) Notes Start Date End Date Status Dilaudid 4 MG Tablet 1 tablet as needed Orally every 6 hrs 4 times a day Active Zolpidem Tartrate 10 MG Tablet 1 tablet at bedtime as needed Orally Once a day Not-Taking lamoTRIgine 200 MG Tablet 1 tablet Orally Once a day Active Levothyroxine Sodium 112 MCG Capsule 1 tablet in the morning on an empty stomach Orally Once a day Not-Taking Sodium Chloride Acti ve [place] Carbonate ER 450 MG Tablet Extended Release 1 tablet at bedtime Orally Once a day Active Promethazine HCl 25 MG/ML Solution as directed Injection Active Lurasidone HCl 80 MG Tablet 1 tablet in the evening with food Orally Once a day Active predniSONE 5 MG/ML Concentrate 1 mL with food or milk Orally Once a day Active Ozempic (0.25 or 0.5 MG/DOSE) 2 MG/1.5ML Solution Pen-injector as directed Subcutaneous weekly 0.5 mg weekly Not-Taking Ondansetron 8 MG Tablet Disintegrating 1 tablet on the tongue and allow to dissolve as needed Orally Once a day Active Prazosin HCl 2 MG Capsule 1 capsule at bedtime Orally Once a day Not-Taking Metoprolol Tartrate 25 MG Tablet 1 tablet with food Orally Twice a day Active Spironolactone-HCTZ 25-25 MG Tablet 1 tablet Orally Once a day Not-Taking Fludrocortisone Acetate 0.1 MG Tablet 1 tablet Orally Once a day Active Terazosin HCl 5 MG Capsule 1 capsule at bedtime Orally Twice a day; Duration: 30 days Active Allopurinol 300 MG Tablet Take 1 tablet by mouth once daily; Duration: 30 Active Ativan 2 MG Tablet 1 tablet at bedtime as needed Orally Once a day Not-Taking tiZANidine HCl 4 MG Tablet 1 tablet as needed Orally QID 2 Tablets, four times a day Active Immunizations Vaccine Route Administration Date Status Comme nts Influenza (whole), CPT 78270 Inactive Unknown 06/02/2017 Administered Influenza (whole), CPT 92694 Inactive Unknown 06/18/2016 Administered Social History Tobacco Use: Social History Observation Description Date Details (start date - stop date) Never Smoker NA - NA Social History Drugs/Alcohol: Social Info Question Answer Notes Alcohol Screen (Audit-C) Did you have a drink containing alcohol in the past year? No Points 0 Interpretation Negative Drugs Have you used drugs other than those for medical reasons in the past 12 months? Yes Caffeine Intake: 1-2 cups per day Tobacco Use: Social Info Question Answer Notes xTobacco Use/Smoking Are you a nonsmoker Additional Details Category Social Info Options Details Miscellaneous: Marital status: , m arried, Children: 4, 4, 4 : No serv ice, No service, No service Education High School Dipl avle, High School Diploma, High School Diploma Drugs/Alcohol: Do you smoke marijuana? De nies Do you drink alcohol? No Section Notes: Lifetime non-smoker Lifetime non-smoker Lifetime non-smoker Lifetime non-smoker Lifetime non-smoker Lifetime non-smoker Lifetime non-smoker Lifetime non-smoker Lifetime non-smoker Lifetime non-smoker Problems Problem Type SNOMED Code ICD Code Onset Dates Problem Status W/U Status Risk Notes Problem Information temporarily unavailable Hypertensive chronic kidney disease with stage 1 through stage 4 chronic kidney disease, or unspecified chronic kidney disease (I12.9) Active confirmed Problem Information temporarily unavailable HTN (hypertension), benign (I10) Active confirmed Problem Information temporarily unavailable Cervical radiculopathy (M54.12) Active confirmed Problem Information temporarily unavailable Neck pain (M54.2) Active confirmed Problem Information temporarily unavailable Diabetes (E11.9) Active confirmed Problem Information temporarily unavailable History of colon polyps (Z86.010) Active confirmed Problem Information temporarily unavailable Chronic kidney disease, unspecified CKD stage (N18.9) Active confirmed Problem Information temporarily unavailable Chronic gout without tophus, unspecified cause, unspecified site (M1A.9XX0) Active confirmed Problem Information temporarily unavailable Chronic pain (G89.29) Active confirmed Problem Information temporarily unavailable Cervical spinal stenosis (M48.02) Active confirmed Problem Information temporarily unavailable Type 2 diabetes mellitus with diabetic nephropathy, 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) Active confirmed Problem Information temporarily unavailable Left cervical radiculopathy (M54.12) Active confirmed Problem Information temporarily unavailable Chronic kidney disease due to diabetes mellitus (E11.22) Active confirmed Problem Information temporarily unavailable Chronic kidney disease, stage 3 unspecified (N18.30) Active confirmed Problem Information temporarily unavailable Chronic kidney disease, stage 3a (N18.31) Active confirmed Problem Information temporarily unavailable Primary hypertension (I10) Active confirmed Vital Signs Heart Rate 83 /min 04/05/2025 Temperature 97.2 degrees Fahrenheit 04/05/2025 Respiratory Rate 20 /min 09/04/2024 Height-cm 165.1 cm 04/05/2025 Oximetry 100 % 04/05/2025 Blood pressure diastolic 99 mm Hg 04/05/2025 Weight-kg 104.2 kg 04/05/2025 Height 65 in 04/05/2025 Blood pressure systolic 134 mm Hg 04/05/2025 Weight 229.72 lbs 04/05/2025 BMI 38.22 kg/m2 04/05/2025 Encounters Encounter Location Date Provider Diagnosis [facility] [address] [place] [address], [place] [address] 05/30/2024 Eyad Valladares [facility] [address] [place] [address] Dr Farmer [address] [place] [address], [place] [address] 04/05/2025 Keke Arreaga Hypertensive chronic kidney disease with stage 1 through stage 4 chronic kidney disease, or unspecified chronic kidney disease I12.9 ; Chronic kidney disease, stage 3a N18.31 ; HTN (hypertension), benign I10 ; Chronic gout without tophus, unspecified cause, unspecified site M1A.9XX0 ; Hematuria, unspecified type R31.9 ; Hypokalemia E87.6 and Pharmacologic therapy Z79.899 [facility] [address] [place] [address] 05/11/2024 Eyad Valladares 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 and Traumatic complete tear of left rotator cuff, initial encounter S46.012A [facility] [address] [place] [place] [address] 06/08/2024 Eyad Valladares Status post arthroscopy of left shoulder Z98.890 and Left cervical radiculopathy M54.12 [facility] [address] [place] [address] 07/03/2024 Lesele Plunkett Cervical radiculopathy M54.12 ; Neck pain M54.2 ; Cervical spinal stenosis M48.02 and Arthrodesis present Z98.1 [facility] [address] [place] [address] [address] [place] [address] 07/09/2024 Brant Miller Hypertensive chronic kidney disease with stage 1 through stage 4 chronic kidney disease, or unspecified chronic kidney disease I12.9 ; Chronic kidney disease, stage 3a N18.31 ; HTN (hypertension), benign I10 ; Chronic gout without tophus, unspecified cause, unspecified site M1A.9XX0 ; Hematuria, unspecified type R31.9 ; Hypokalemia E87.6 and Pharmacologic therapy Z79.899 [facility] [address] [place] [address] 07/20/2024 Eyad Valladares Status post arthroscopy of left shoulder Z98.890 [facility] [address] [place] [address] 08/31/2024 Eyad Valladares Status post arthroscopy of left shoulder Z98.890 [facility] [address] [place] [address] 09/04/2024 Estuardo Moses Cervical radiculopathy M54.12 ; Neck pain M54.2 ; Cervical spinal stenosis M48.02 and Arthrodesis present Z98.1 [facility] [address] [place] [address], [place] [address] 05/04/2024 Eyad Valladares Left shoulder pain, unspecified chronicity M25.512 [facility] [address] [place] [address] [address] [place] [address] 05/15/2024 Keke Arreaga Hypertensive chronic kidney disease with stage 1 through stage 4 chronic kidney disease, or unspecified chronic kidney disease I12.9 ; Chronic kidney disease, stage 3a N18.31 and Chronic gout without tophus, unspecified cause, unspecified site M1A.9XX0 [facility] [address] [place] [address], [place] [address] 05/31/2024 Eyad Valladares [facility] [address] [place] [address] [place] [address] 06/20/2024 Keke Arreaga Chronic kidney disease, stage 3a N18.31 [facility] [address] [place] [address] 07/05/2024 Keke Arreaga [facility] [address] [place] [address] 01/09/2025 Brant Miller Chronic kidney disease, stage 3a N18.31 ; Hypertensive chronic kidney disease with stage 1 through stage 4 chronic kidney disease, or unspecified chronic kidney disease I12.9 ; HTN (hypertension), benign I10 ; Hematuria, unspecified type R31.9 ; Chronic gout without tophus, unspecified cause, unspecified site M1A.9XX0 and Pharmacologic therapy Z79.899 [facility] [address] [place] [address] 01/14/2025 Brant Miller [facility] [address] [place] [address] 02/11/2025 [facility] [place] [facility] [address] [place] [address] 02/13/2025 [facility] [address] [place] [address] 03/04/2025 Brant Miller Chronic kidney disease, stage 3a N18.31 ; Hypertensive chronic kidney disease with stage 1 through stage 4 chronic kidney disease, or unspecified chronic kidney disease I12.9 ; HTN (hypertension), benign I10 ; Hematuria, unspecified type R31.9 ; Chronic gout without tophus, unspecified cause, unspecified site M1A.9XX0 and Pharmacologic therapy Z79.899 Assessments Encounter Date Diagnosis (ICD Code) Assessment Notes Treatment Notes Treatment Clinical Notes Section Notes 06/08/2024 Status post arthroscopy of left shoulder (ICD-10 - Z98.890) This individual is seen today for follow-up debridement of subscapularis tendon from partial intratendinous tear. This individual's pain pattern is not consistent with postop arthroscopy shoulder type pain. Her range of motion of her shoulder is not particularly tender. She has had 2 previous spine surgeries and I am very concerned that this is her issue at this time. It probably was part of the issue to begin with. We will proceed with x-rays of the cervical spine. 06/08/2024 Left cervical radiculopathy (ICD-10 - M54.12) Over x-ray findings with this individual. I am going to send Dr. Lopes a message asking if he will assess her early next week. 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 05/11/2024 Traumatic complete tear of left rotator cuff, initial encounter (ICD-10 - S46.012A) Based on examination and MRI study this individual has had I suspect she has a rotator cuff tear of the left shoulder. This will require arthroscopy. Arthroscopic considerations will include rotator cuff repair as well as treatment of possible Bankart lesion of the left shoulder. The need to wear a brace for 6 weeks following surgery is explained and accepted by the patient. Risk factors: Type 2 diabetes, kidney disease, hypertension. I do want her to see her family physician for medical clearance prior to surgery. 05/15/2024 Hypertensive chronic kidney disease with stage 1 through stage 4 chronic kidney disease, or unspecified chronic kidney disease (ICD-10 - I12.9) 07/03/2024 Cervical radiculopathy (ICD-10 - M54.12) 07/03/2024 Neck pain (ICD-10 - M54.2) 07/09/2024 Hypertensive chronic kidney disease with stage 1 through stage 4 chronic kidney disease, or unspecified chronic kidney disease (ICD-10 - I12.9) CKD is improved. Hypertension is controlled; hypertension is exacerbated by pain. Gout is controlled. Hematuria is not detected and hypokalemia has resolved 07/09/2024 Chronic kidney disease, stage 3a (ICD-10 - N18.31) CKD is improved. Hypertension is controlled; hypertension is exacerbated by pain. Gout is controlled. Hematuria is not detected and hypokalemia has resolved 07/20/2024 Status post arthroscopy of left shoulder (ICD-10 - Z98.890) Individual is status post shoulder arthroscopy left shoulder which included debridement of the subscapularis tendon. The pain that she is experiencing I do not feel as a result of her arthroscopy and I think it is more centrally located. We will await neurosurgery evaluation. I myself will see her back in about 6 weeks. 08/31/2024 Status post arthroscopy of left shoulder (ICD-10 - Z98.890) This individual is status post shoulder arthroscopy with intra-articular debridement. I feel like her shoulder is doing well. Her issue with her pectoral girdle pain I think is definitely coming from her neck. From what she tells me her appointment with her neurosurgeon went as well. Continue follow-up care in about 4 months. Continue care with her neurosurgeon. 09/04/2024 Cervical radiculopathy (ICD-10 - M54.12) 09/04/2024 Neck pain (ICD-10 - M54.2) 01/09/2025 Chronic kidney disease, stage 3a (ICD-10 - N18.31) 03/04/2025 Chronic kidney disease, stage 3a (ICD-10 - N18.31) 04/05/2025 Hypertensive chronic kidney disease with stage [...] is not detected and hypokalemia has resolved 03/04/2025 Hypertensive chronic kidney disease with stage 1 through stage 4 chronic kidney disease, or unspecified chronic kidney disease (ICD-10 - I12.9) 01/09/2025 Hypertensive chronic kidney disease with stage 1 through stage 4 chronic kidney disease, or unspecified chronic kidney disease (ICD-10 - I12.9) 09/04/2024 Cervical spinal stenosis (ICD-10 - M48.02) 07/09/2024 HTN (hypertension), benign (ICD-10 - I10) CKD is improved. Hypertension is controlled; hypertension is exacerbated by pain. Gout is controlled. Hematuria is not detected and hypokalemia has resolved 07/03/2024 Cervical spinal stenosis (ICD-10 - M48.02) 05/15/2024 Chronic kidney disease, stage 3a (ICD-10 - N18.31) 05/15/2024 Chronic gout without tophus, unspecified cause, unspecified site (ICD-10 - M1A.9XX0) 07/03/2024 Arthrodesis present (ICD-10 - Z98.1) 07/09/2024 Chronic gout without tophus, unspecified cause, unspecified site (ICD-10 - M1A.9XX0) CKD is improved. Hypertension is controlled; hypertension is exacerbated by pain. Gout is controlled. Hematuria is not detected and hypokalemia has resolved 09/04/2024 Arthrodesis present (ICD-10 - Z98.1) 01/09/2025 HTN (hypertension), benign (ICD-10 - I10) 03/04/2025 HTN (hypertension), benign (ICD-10 - I10) 04/05/2025 HTN (hypertension), benign (ICD-10 - I10) CKD is improved. Hypertension is controlled; hypertension is exacerbated by pain. Gout is controlled. Hematuria is not detected and hypokalemia has resolved 04/05/2025 Chronic gout without tophus, unspecified cause, unspecified site (ICD-10 - M1A.9XX0) CKD is improved. Hypertension is controlled; hypertension is exacerbated by pain. Gout is controlled. Hematuria is not detected and hypokalemia has resolved 03/04/2025 Hematuria, unspecified type (ICD-10 - R31.9) 07/09/2024 Hematuria, unspecified type (ICD-10 - R31.9) CKD is improved. Hypertension is controlled; hypertension is exacerbated by pain. Gout is controlled. Hematuria is not detected and hypokalemia has resolved 01/09/2025 Hematuria, unspecified type (ICD-10 - R31.9) 01/09/2025 Chronic gout without tophus, unspecified cause, unspecified site (ICD-10 - M1A.9XX0) 07/09/2024 Hypokalemia (ICD-10 - E87.6) CKD is improved. Hypertension is controlled; hypertension is exacerbated by pain. Gout is controlled. Hematuria is not detected and hypokalemia has resolved 03/04/2025 Chronic gout without tophus, unspecified cause, unspecified site (ICD-10 - M1A.9XX0) 04/05/2025 Hematuria, unspecified type (ICD-10 - R31.9) CKD is improved. Hypertension is controlled; hypertension is exacerbated by pain. Gout is controlled. Hematuria is not detected and hypokalemia has resolved 04/05/2025 Hypokalemia (ICD-10 - E87.6) CKD is improved. Hypertension is controlled; hypertension is exacerbated by pain. Gout is controlled. Hematuria is not detected and hypokalemia has resolved 03/04/2025 Pharmacologic therapy (ICD-10 - Z79.899) 07/09/2024 Pharmacologic therapy (ICD-10 - Z79.899) CKD is improved. Hypertension is controlled; hypertension is exacerbated by pain. Gout is controlled. Hematuria is not detected and hypokalemia has resolved 01/09/2025 Pharmacologic therapy (ICD-10 - Z79.899) 04/05/2025 Pharmacologic therapy (ICD-10 - Z79.899) CKD [...] with in 6 months with labs at [facility]] 5 to 10 days prior to appointment. [...] is not detected and hypokalemia has resolved 07/09/2024 Other Dose medications for GFR less than [...] with in 6 months with labs at [facility]3] 5 to 10 days prior to appointment. [...] is not detected and hypokalemia has resolved 09/04/2024 Other The patient continues to have neck pain and left upper extremity pain. The cervical imaging was reviewed and discussed with the patient. There are no significant findings to correlate with her symptoms. The nerve conduction study was normal. Unfortunately, I do not have an answer for the patient as to what is causing her symptoms. Possibilities could be inflammation from a muscle or a joint that is not seen on the imaging. I did reassure the patient that she does not need additional neck surgery at this time. There are options of physical therapy, and/or injections if she chooses. The patient says she has had a trial of a spinal cord stimulator in the past and is not interested in another. The patient will continue working with pain management. If she decides she would like a referral to therapy she will call. ROS reviewed I Denisse Mccullough LPN am scribing for, and in the presence of Estuardo Lopes MD. I, Estuardo Lopes, personally performed the services described in this documentation, as scribed by Denisse Mccullough LPN in my presence, and it is both accurate and complete. Plan Of Treatment Pending Test Test Name Order Date Shoulder 2V 05/04/2024 Albumin [id number] 06/20/2024 Prothrombin Time 52064 12/10/2022 ABORh 74817, 61130 12/10/2022 Antibody Screen 14904 12/10/2022 Giardia/Cryptosporidium Screen 16094, 87 329 05/13/2022 Basic Metabolic Panel (BMP) 66614 2022 Basic Metabolic Panel (BMP) 85533 2023 Basic Metabolic Panel (BMP) 51480 2024 Basic Metabolic Panel (BMP) 51400 2022 CBC w\ Auto Diff 34160 05/13/2022 CBC w\ Auto Diff 45750 12/10/2022 Comprehensive Metabolic Panel (CMP) 8005 3 05/13/2022 Hemoglobin 22763 06/20/2024 Magnesium (B) 04163 06/20/2024 Magnesium (B) 34236 01/09/2025 Metanephrines Fractionated (U) 24 Hr 838 35 09/29/2022 Partial Thromboplastin Time 86753 2022 Phosphorus (B) 21347 01/09/2025 Phosphorus (B) 76990 06/20/2024 Protein (U) Random 00176 06/20/2024 Sedimentation Rate 39069 05/13/2022 Uric Acid (B) 23543 06/20/2024 Uric Acid (B) 50603 01/09/2025 Uric Acid (B) 66246 03/04/2025 CBC Reflex Man Diff 40771, 34168 023 Microalbumin (U) Random 56847 01/09/2025 Creatinine (U) 33675 01/09/2025 Creatinine (U) 38880 06/20/2024 Catecholamines (U) 24hr 01768 09/29/2022 UA Reflex Micro, Reflex Cult 55359, 8101 5, 58032 07/05/2024 UA Reflex Micro, Reflex Cult 33807, 8101 5, 03695 06/20/2024 UA Reflex Micro, Reflex Cult 88500, 8101 5, 20926 01/09/2025 Metanephrines Plasma Free 04337 09/29/19 PTH Intact 27579 01/09/2025 Calprotectin Fecal 34307 05/13/2022 Cervical Spine AP/Lat 2-3 Views-26146 Cervical Spine AP/Lat 2-3 Views-55868 Chest PA/Lat-44547 12/13/2022 CT Abdomen, Pelvis w/o Contrast-28877 MRI Cervical Spine w/o Cont-82419 2023 MRI Cervical Spine w/o Cont-25620 2023 XR Outside CD 06/08/2024 Glucometer WBG--87127 12/22/2022 Glucometer WBG--85703 12/22/2022 WBC Auto Diff--43368 12/22/2022 BB ABORH-66101,94515 12/13/2022 zzzFluoro >1h4 12/22/2022 zzzCT Outside CD 11/29/2022 zzzMRI Outside CD 03/23/2022 Diagnostic Colonoscopy-26085 05/13/2022 EGD, Upper GI Diagnostic-42806 Schedule Confirmation 07/23/2024 Schedule Confirmation 07/23/2024 Schedule Confirmation 08/04/2024 Schedule Confirmation 08/04/2024 Basic Metabolic Panel (BMP) 58029 2023 Magnesium (B) 89662 12/15/2023 Phosphorus (B) 48845 12/15/2023 Uric Acid (B) 77827 12/15/2023 UA Reflex Micro, Reflex Cult 47534, 8101 5, 77409 12/15/2023 UA Reflex Micro, Reflex Cult 87088, 8101 5, 94096 12/26/2023 Albumin 10599 05/15/2024 Basic Metabolic Panel (BMP) 34347 2023 Hemoglobin 08177 05/15/2024 Magnesium (B) 36211 05/15/2024 Phosphorus (B) 99925 05/15/2024 Protein (U) Random 24956 05/15/2024 Uric Acid (B) 59296 05/15/2024 Creatinine (U) 22424 05/15/2024 UA Reflex Micro, Reflex Cult 87576, 8101 5, 15101 05/15/2024 PTH Intact 06363 05/15/2024 Magnesium (B) 90620 03/04/2025 Phosphorus (B) 41188 03/04/2025 Microalbumin (U) Random 33467 03/04/2025 Creatinine (U) 82407 03/04/2025 UA Reflex Micro, Reflex Cult 55848, 8101 5, 22144 03/04/2025 PTH Intact 50461 03/04/2025 Basic Metabolic Panel (BMP) 11968 2024 Next Appt Details Provider Name:Qasim Donis, 05/22/2025 10:20:00 AM, [address] [place], [address], Provider Name:Keke Augustina rodriguez, 10/04/2025 11:00:00 AM, [address] [place] [address] Darian Esquivel [address], [place], [address], Insurance Providers Payer Name Payer Address Payer Phone Subscriber Number Group Number Insured Name Patient Relationship to Insured Coverage Start Date Coverage End Date [employer] at work [address] [address] [place] [address] [id number] Dennis Garcia Spouse - patient is the spouse of the insured Medical (General) History Medical History History ICD Code Bipolar Cervical disc disorder Chronic intractable migraine without aur a Chronic kidney disease stage 2 Conduction disorder of the heart Fracture of transverse process of lumbar vertebra Gastroesophageal reflux disease Hyperthyroidism (resolved with thyroidec trish) Increased frequency of urination Intervertebral disc disorder of cervical region with myelopathy Lumbosacral radiculopathy Malignant hypertension Palpitations Paresthesia of lower extremity Peptic ulcer Post-laminectomy syndrome Somatoform disorder Tachycardia Thyroid nodule diabetes Myocardial infarction Gout Chicken Pox Pneumonia Arthritis bladder infections migraine headaches Back Trouble High Blood Pressure Low Blood Pressure diabetes unspecified Surgical History Surgery Date(Month/Year) cardiac catheterization ovaries removed bladder surgery thyroid removed disc replaced in neck polyps in colon removed hysterectomy cholecystectomy appendectomy Back 2021 Removal of anterior cervical instrumentation at C5-6 and anterior cervical discectomy and fusion, C4-5 12/22/22 Arthroscopy, left shoulder. Arthroscopic debridement, intratendinous tear, subscapularis tendon, left shoulder. 05/30/2024 Hospitalization History Reason Date(Month/Year) see surgical
--- OUTSIDE RECORDS SUMMARY | 2025-04-18 01:38 | XMS_ITS | Clinical Summary ---
Author Organization [facility] 2 Address [address] [facility] [facility] [place] [address] Care Team Providers Care Building Custodian Name Role Phone Michelle Rico NP Primary Care Provider [phone] Allergies Active Allergy Reactions Criticality Noted Date Comments Aspirin Unknown Ketorolac Unknown Meloxicam Other (See comments),Unknown Low 04/28/2011 Nsaids (Non-Steroidal Anti-Inflammatory Drug) Other (See comments) Low 12/07/2023 Can not take NSAIDS due to stage 3 kidney failure Medications onabotulinumtoxin A (BOTOX) 100 unit recon soln Active levothyroxine (SYNTHROID) 75 mcg tablet Active pantoprazole DR (PROTONIX) 40 mg EC tablet Take 1 tablet (40 mg total) by mouth daily 6 8 Active topiramate (TOPAMAX) 100 mg tablet Active ondansetron (ZOFRAN) 8 mg tablet Active HYDROmorphone (DILAUDID) 4 mg tabletIndications:P ain 8 Active lamoTRIgine (LaMICtal) 200 mg tablet 8 Active LITHIUM 300 mg capsule 8 Active LORazepam (ATIVAN) 2 mg tablet 8 Active TiZANidine (ZANAFLEX) 4 mg capsule Take 2 capsules (8 mg total) by mouth 4 (four) times a day (with meals and nightly) Active allopurinoL (ZYLOPRIM) 300 mg tablet Take 1 tablet (300 mg total) by mouth daily for 30 days 4 Active dilTIAZem XR 240 mg 24 hr capsule Take 1 capsule (240 mg total) by mouth 2 (two) times a day 2 Active furosemide (LASIX) 20 mg tablet Take 1 tablet (20 mg total) by mouth daily 0 Active lurasidone (LATUDA) 80 mg tablet TAKE 1 TABLET BY MOUTH ONCE DAILY WITH FOOD (AT LEAST 350 CALORIES) 4 Active prazosin (MINIPRESS) 2 mg capsule TAKE 2 CAPSULES BY MOUTH ONCE DAILY AT BEDTIME 4 Active promethazine (PHENERGAN) 25 mg suppository 4 Active Ozempic 2 mg/dose (8 mg/3 mL) pen injector injection INJECT 2MG (0.75ML) SUB-Q ONCE WEEKLY(ON SATURDAYS) 4 Active hydrALAZINE (APRESOLINE) 50 mg tablet Take 1 tablet (50 mg total) by mouth 3 (three) times a day Takes 25 mg in the morning and 50 mg in evening 90 tablet 11 4 Active ondansetron ODT (ZOFRAN-ODT) 8 mg disintegrating tablet DISSOLVE 1 TABLET IN MOUTH EVERY 8 HOURS NEEDED FOR NAUSEA 4 Active cloNIDine (CATAPRES) 0.2 mg tablet Take 1 tablet (0.2 mg total) by mouth 3 (three) times a day 90 tablet 11 4 Active telmisartan (MICARDIS) 80 mg tablet Take 1 tablet (80 mg total) by mouth daily 90 tablet 3 4 Active carvediloL (COREG) 6.25 mg tablet Take 1 tablet (6.25 mg total) by mouth 2 (two) times a day with meals 60 tablet 11 4 Active spironolactone-hydr oCHLOROthiazide (ALDACTAZIDE) 25-25 mg per tablet Take 1 tablet by mouth daily 30 tablet 11 4 Active Active Problems Problem Noted Date Diagnosed Date Essential hypertension 07/13/2018 Intractable episodic headache 07/13/2018 Hyperthyroidism 07/13/2018 Diabetes insipidus 07/13/2018 Obesity with body mass index 30 or greater 12/30 Surgical History Surgery Date Site/Laterality Comments BLADDER SUSPENSION CHOLECYSTECTOMY APPENDECTOMY HYSTERECTOMY NECK SURGERY Medical History Medical History Date Comments Hypertension Family History Medical History Relation Name Comments Diabetes Brother 1 Family history of diabetes mellitus - (Added by TW Conv) Hypertension Brother 2 Family history of hypertension - (Added by TW Conv) Diabetes Father Family history of diabetes mellitus - (Added by TW Conv) Hypertension Father Family history of hypertension - (Added by TW Conv) Stroke Father Family history of stroke - (Added by TW Conv) Cancer Mother Family history of cancer - (Added by TW Conv) Diabetes Mother Family history of diabetes mellitus - (Added by TW Conv) Diabetes Sister Family history of diabetes mellitus - (Added by TW Conv) Relation Name Status Comments Brother 1 Brother 2 Father Mother Sister Social History Tobacco Use Types Packs/Day Years Used Date Smoking Tobacco: Never Smokeless Tobacco: Never Tobacco Cessation:Counseling Given: Not Answered Alcohol Use Standard Drinks/Week Comments No 0 (1 standard drink = 0.6 oz pur e alcohol) Comments Unknown Sex and Gender Information Value Date Recorded Sex Assigned at Not on file Legal Sex Female 8:56 PM DIRECTOR OF FRONT OFFICE Gender Identity Female 07/04/2018 10:38 AM DIRECTOR OF FRONT OFFICE Sexual Orientation Straight 10/04/2023 7: 11 PM DIRECTOR OF FRONT OFFICE Obstetrics History Last Filed Vital Signs Vital Sign Reading Time Taken Comments Blood Pressure 194/105 02/24/2024 2:37 PM CDT Pulse 102 02/24/2024 2:37 PM CDT Temperature 36.6 C (97.8 F) 07/04/2018 10:50 AM DIRECTOR OF FRONT OFFICE Respiratory Rate - - Oxygen Saturation 97% 02/24/2024 2:37 PM CDT Inhaled Oxygen Concentration - - Weight 82.6 kg (182 lb) 02/24/2024 2:37 PM CDT Height 165.1 cm (5' 5 ) 02/24/2024 2:37 PM CDT Body Mass Index 30.29 02/24/2024 2:37 PM CDT Plan of Treatment Health Maintenance Due Date Last Done Comments Breast Cancer Screening-Mammogram 1978 Colon Cancer Screening-Colonoscopy 1978 Depression Screening 1978 Hepatitis C Screening 1978 DTaP/Tdap/Td Vaccine (1 - Tdap) 1989 Hepatitis B Screening 02/10/1996 Regular Well Visit/Exam 18-64 02/10/1996 Influenza Vaccine (#1) 2025 06/04/2019 Pneumococcal vaccine <65 Aged Out No longer eligible based on patient's age to complete this topic Insurance [facility] PLUS [facility] PL[facility] Care Teams Building Custodian Relationship Specialty Start Date End Date Michelle Rico NP [address] [place] [address] PCP - General 02/13/19
--- OUTSIDE RECORDS SUMMARY | 2025-04-18 01:38 | XMS_ITS | Encounter Summary ---
Author Organization [facility] Address [address] [place] [address] Care Team Providers Care Parts Representative Name Role Phone Non-Staff, Physician Primary Care Provider Unava ilable Encounter Details Date Type Department Care Team (Latest Contact Info) Description 03/09/2006 Outpatient Historical [facility] Endoscopy [address] [place] [address] Quinten Aviles MD [address] [place] [address] Dr Farmer [address] [place] [phone] Anal or Rectal Pain (Primary Dx) Social History Tobacco Use Types Packs/Day Years Used Date Smoking Tobacco: Never Assessed Comments Unknown Sex and Gender Information Value Date Recorded Sex Assigned at Not on file Legal Sex Female 3:18 AM CHIEF OF PARTY Gender Identity Not on file Sexual Orientation Not on file documented as of this encounter Plan of Treatment Not on file documented as of this encounter Visit Diagnoses Diagnosis Anal or rectal pain- Primary documented in this encounter Care Teams Parts Representative Relationship Specialty Start Date End Date Non-Staff, Physician NO ADDRESS ON FILE PCP - General 04/02/20 documented as of this encounter
--- OUTSIDE RECORDS SUMMARY | 2025-04-18 01:38 | XMS_ITS | Encounter Summary ---
Author Organization [facility] Address [address] [place] [address] Care Team Providers Care Evaluation Analyst Name Role Phone Non-Staff, Physician Primary Care Provider Unava ilable Encounter Details Date Type Department Care Team (Late st Contact Info) Description 06/11/2015 Ancillary Orders [facility] Nuclear Medicine [address] 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) Social History Tobacco Use Types Packs/Day Years Used Date Smoking Tobacco: Never Alcohol Use Standard Drinks/Week Comments No 0 (1 standard drink = 0.6 oz pur e alcohol) Comments Unknown Sex and Gender Information Value Date Recorded Sex Assigned at Not on file Legal Sex Female 3:18 AM COMMERCIAL CREDIT REVIEWER Gender Identity Not on file Sexual Orientation Not on file documented as of this encounter Plan of Treatment Not on file documented as of this encounter Visit Diagnoses Diagnosis Hypertension due to endocrine disorder- Primary documented in this encounter Care Teams Evaluation Analyst Relationship Specialty Start Date End Date Non-Staff, Physician NO ADDRESS ON FILE PCP - General 04/02/20 documented as of this encounter
--- OUTSIDE RECORDS SUMMARY | 2025-04-18 01:38 | XMS_ITS | Encounter Summary ---
Author Organization [facility] Address [address] [place] [address] Care Team Providers Care Conformal Pad Former Name Role Phone Non-Staff, Physician Primary Care Provider Unava ilable Encounter Details Date Type Department Care Team (Latest Contact Info) Description 02/23/2006 Outpatient Historical [facility] Gastroenterology- [place] [address] [place] [address] Quinten Aviles MD [facility] [address] [place] [address] Anal Fistula (Primary Dx); Anal or Rectal Pain Social History Tobacco Use Types Packs/Day Years Used Date Smoking Tobacco: Never Assessed Comments Unknown Sex and Gender Information Value Date Recorded Sex Assigned at Not on file Legal Sex Female 3:18 AM DIRECTOR ERP Gender Identity Not on file Sexual Orientation Not on file documented as of this encounter Plan of Treatment Not on file documented as of this encounter Visit Diagnoses Diagnosis Anal fistula- Primary Anal or rectal pain documented in this encounter Care Teams Conformal Pad Former Relationship Specialty Start Date End Date Non-Staff, Physician NO ADDRESS ON FILE PCP - General 04/02/20 documented as of this encounter
--- OUTSIDE RECORDS SUMMARY | 2025-04-18 01:38 | XMS_ITS | Encounter Summary ---
Author Organization [facility] Address [address] [place] [address] Care Team Providers Care Quarryman Name Role Phone Non-Staff, Physician Primary Care Provider Unava ilable Encounter Details Date Type Department Care Team (Latest Contact Info) Description 06/03/2003 Outpatient Historical [facility] SoteroShaheen MD [address] [address] SURGERY FOLLOWUP, UNSPEC (Primary Dx) Social History Tobacco Use Types Packs/Day Years Used Date Smoking Tobacco: Never Assessed Comments Unknown Sex and Gender Information Value Date Recorded Sex Assigned at Not on file Legal Sex Female 3:18 AM MANAGER USER EXPERIENCE Gender Identity Not on file Sexual Orientation Not on file documented as of this encounter Plan of Treatment Not on file documented as of this encounter Visit Diagnoses Diagnosis Follow-up examination, following unspecified surgery- Primary documented in this encounter Care Teams Quarryman Relationship Specialty Start Date End Date Non-Staff, Physician NO ADDRESS ON FILE PCP - General 04/02/20 documented as of this encounter
--- OUTSIDE RECORDS SUMMARY | 2025-04-18 01:38 | XMS_ITS | Clinical Summary ---
Author Organization [facility] Address [address] [place] [id number] Care Team Providers Care Director Funeral Name Role Phone Michelle Rico [facility] Primary Care Provider Allergies Active Allergy Reactions Criticality Noted Date Comments Aspirin 04/05/2019 Other reaction(s): Other (See Comments) Was instructed not to take medication Ketorolac 04/28/2011 Other reaction(s): Unknown Meloxicam 04/28/2011 Other reaction(s): Unknown Nsaids 04/05/2019 Other reaction(s): Other (See Comments) Cant take because of Erin Medications * This document contains information received from the source organization and may not represent a complete record from that organization. rOPINIRole (REQUIP) 0.25 MG tablet Take 0.25 mg by mouth 3 (three) times a day Active promethazine (PHENERGAN) 25 MG tablet Take 25 mg by mouth every 6 (six) hours if needed for nausea or vomiting Active topiramate (TOPAMAX) 100 MG tablet Take 100 mg by mouth 2 (two) times a day Active ondansetron ODT (ZOFRAN-ODT) 8 MG dispersible tablet Take 8 mg by mouth every 8 (eight) hours if needed for nausea or vomiting Active levothyroxine sodium (TIROSINT) 100 MCG capsule Take 100 mcg by mouth 1 (one) time each day Active HYDROcodone-acet aminophen (LORCET PLUS) 10-325 MG per tablet Take 1-2 tablets by mouth every 6 (six) hours if needed for moderate pain Active Multiple Vitamin (MULTIVITAMIN) tablet Take 1 tablet by mouth 1 (one) time each day Active Probiotic Product (ACIDOPHILUS/BIF IDUS PO) Take by mouth 1 (one) time each day Active LORazepam (ATIVAN) 2 MG tablet 2 mg Take 1/2 tablet by mouth every morning and noon and take 1 tablet at bedtime Active tiZANidine (ZANAFLEX) 4 MG tablet Take 8 mg by mouth 4 times a day Active lamoTRIgine (LaMICtal) 200 MG tablet Take 200 mg by mouth 1 (one) time each day Active pantoprazole (PROTONIX) 40 MG EC tablet Take 40 mg by mouth in the morning and 40 mg in the evening. Do not crush, chew, or split. . Active amLODIPine (NORVASC) 10 MG tablet Take 10 mg by mouth daily 0 Active Latuda 20 MG tablet Take 60 mg by mouth every night 0 Active furosemide (LASIX) 20 MG tablet Take 20 mg by mouth daily 0 Active HYDROmorphone (DILAUDID) 4 MG tablet Take 4 mg by mouth every 6 (six) hours if needed 0 Active lithium 300 MG tablet Take 600 mg by mouth in the morning and 600 mg in the evening. 0 Active metFORMIN (GLUCOPHAGE) 500 MG tablet Take 500 mg by mouth in the morning and 500 mg in the evening. Take with meals. Active Semaglutide,0.25 or 0.5MG/DOS, (Ozempic, 0.25 or 0.5 MG/DOSE,) 2 MG/1.5ML solution pen-injector Inject under the skin per week Active cloNIDine (CATAPRES) 0.3 MG tablet Take 1 tablet (0.3 mg total) by mouth every 6 (six) hours 360 tablet 3 2 Active carvedilol (COREG) 25 MG tablet TAKE 1 TABLET BY MOUTH ONCE DAILY IN THE MORNING AND IN THE EVENING 180 tablet 2 Active Active Problems Problem Noted Date Diagnosed Date Essential (primary) hypertension 09/26/2019 Chronic kidney disease, stage 3 (moderate) 09/26 Immunizations Immunization Administration Dates Next Due Influenza TIV (IM) 06/04/2019 Family History Medical History Relation Comments Diabetes Father Hypertension Father Stroke Father Diabetes Mother Diabetes Sibling Relation Status Comments Father Mother Sibling Social History Tobacco Use Types Packs/Day Years [...] Sign Reading Time Taken Comments Blood Pressure 100/60 10/06/2021 10:44 AM BURRER MARKER AXLE Pulse 66 10/06/2021 10:44 AM BURRER MARKER AXLE Temperature 36.8 C (98.3 F) 12/15/2020 3:15 PM CDT Respiratory Rate - - Oxygen Saturation - - Inhaled Oxygen Concentration - - Weight 104 kg (229 lb 12.8 oz) 10/06/2021 10:44 AM BURRER MARKER AXLE Height 165.1 cm (5' 5 ) 10/06/2021 10:44 AM BURRER MARKER AXLE Body Mass Index 38.24 10/06/2021 10:44 AM BURRER MARKER AXLE Plan of Treatment Health Maintenance Due Date Last Done Comments Hepatitis B Vaccine (1 of 3 - 19+ 3-dose series) 02/09 Pneumococcal Vaccine: Peds ( 0 to 5 Years) and At-Risk Patients (6 to 49 Years) (1 of 2 - PCV) 1997 Influenza Vaccine (#1) 2025 06/04/2019 Insurance [facility] Care Teams Director Funeral Relationship Specialty Start Date End Date Michelle Rico FNP [address] [place] PCP - General 09/26/19
--- OUTSIDE RECORDS SUMMARY | 2025-04-18 01:38 | XMS_ITS | Encounter Summary ---
Author Organization [facility] Address [address] [place] [address] Care Team Providers Care Automotive Service Writer Name Role Phone Non-Staff, Physician Primary Care Provider Unava ilable Encounter Details Date Type Department Care Team (Latest Contact Info) Description 05/27/2003 Outpatient Historical [facility] SoteroShaheen MD [address] [address] SURGERY FOLLOWUP, UNSPEC (Primary Dx) Social History Tobacco Use Types Packs/Day Years Used Date Smoking Tobacco: Never Assessed Comments Unknown Sex and Gender Information Value Date Recorded Sex Assigned at Not on file Legal Sex Female 3:18 AM MANAGER CARGO Gender Identity Not on file Sexual Orientation Not on file documented as of this encounter Plan of Treatment Not on file documented as of this encounter Visit Diagnoses Diagnosis Follow-up examination, following unspecified surgery- Primary documented in this encounter Care Teams Automotive Service Writer Relationship Specialty Start Date End Date Non-Staff, Physician NO ADDRESS ON FILE PCP - General 04/02/20 documented as of this encounter
--- OUTSIDE RECORDS SUMMARY | 2025-04-18 01:38 | XMS_ITS | Encounter Summary ---
Author Organization [facility] Address [address] [place] [address] Care Team Providers Care Pulvi Mixer Operator Name Role Phone Non-Staff, Physician Primary Care Provider Unava ilable Encounter Details Date Type Department Care Team (Late st Contact Info) Description 03/28/2006 Outpatient Historical [facility] Quinten Aviles MD [address] [place] [address] Dr [address] [place] [phone] Social History Tobacco Use Types Packs/Day Years Used Date Smoking Tobacco: Never Assessed Comments Unknown Sex and Gender Information Value Date Recorded Sex Assigned at Not on file Legal Sex Female 3:18 AM FIELD MECHANIC/SITE LEAD Gender Identity Not on file Sexual Orientation Not on file documented as of this encounter Plan of Treatment Not on file documented as of this encounter Visit Diagnoses Not on filedocumented in this encounter Care Teams Pulvi Mixer Operator Relationship Specialty Start Date End Date Non-Staff, Physician NO ADDRESS ON FILE PCP - General 04/02/20 documented as of this encounter
--- OUTSIDE RECORDS SUMMARY | 2025-04-18 01:38 | XMS_ITS | Encounter Summary ---
Author Organization [facility] Address [address] [place] [address] Care Team Providers Care Cryptologic Linguist Name Role Phone Non-Staff, Physician Primary Care Provider Unava ilable Encounter Details Date Type Department Care Team (Latest Contact Info) Description 03/10/2006 Outpatient Historical [facility] Cardiovascular Services [address] [place] [address] Jeniffer Bronson MD [address] [facility] [address] [place] [address] Syncope and Collapse (Primary Dx) Social History Tobacco Use Types Packs/Day Years Used Date Smoking Tobacco: Never Assessed Comments Unknown Sex and Gender Information Value Date Recorded Sex Assigned at Not on file Legal Sex Female 3:18 AM HAND SHAPER Gender Identity Not on file Sexual Orientation Not on file documented as of this encounter Plan of Treatment Not on file documented as of this encounter Visit Diagnoses Diagnosis Syncope and collapse- Primary documented in this encounter Care Teams Cryptologic Linguist Relationship Specialty Start Date End Date Non-Staff, Physician NO ADDRESS ON FILE PCP - General 04/02/20 documented as of this encounter
--- NOTE | 2025-04-18 02:11 | XRR_ITS ---
PROCEDURE INFORMATION: Exam: XR Chest Exam date and time: 04/18/2025 2:57 AM Age: 45 years old Clinical indication: Pain; Chest pressure; Additional info: Chest pain TECHNIQUE: Imaging protocol: Radiologic exam of the chest. Views: 1 view. COMPARISON: CR (CHEST, ) 02/16/2025 6:28 PM FINDINGS: Lungs: Unremarkable. No consolidation. Pleural spaces: Unremarkable. No pleural effusion. No pneumothorax. Heart/Mediastinum: Unremarkable. No cardiomegaly. Bones/joints: Unremarkable. XR/XR chest 1V portable [id number] IMPRESSION: No acute findings.
--- NOTE | 2025-04-18 02:11 | CTR_ITS ---
PROCEDURE INFORMATION: Exam: CT Head Without Contrast Exam date and time: 04/18/2025 2:52 AM Age: 45 years old Clinical indication: Pain; Headache not specified TECHNIQUE: Imaging protocol: Computed tomography of the head without contrast. Radiation optimization: All CT scans at this facility use at least one of these dose optimization techniques: automated exposure control; mA and/or kV adjustment per patient size (includes targeted exams where dose is matched to clinical indication); or iterative reconstruction. COMPARISON: CT head wo con* [id number] 02/16/2025 6:11 PM RADIATION DOSE METRICS: Total DLP (mGy-cm): 1113.93 FINDINGS: Brain: Normal. No hemorrhage. Unremarkable white matter. No mass effect. Cerebral ventricles: No ventriculomegaly. Paranasal sinuses: Visualized sinuses are unremarkable. No fluid levels. Mastoid air cells: Visualized mastoid air cells are well aerated. Bones: Unremarkable. No acute fracture. Soft tissues: Unremarkable. CT/CT head wo con* [id number] IMPRESSION: No acute intracranial abnormality.
[2025-04-18 02:17] LABS: Hematocrit 41.2 % (36-47); Hemoglobin 13.10 g/dL (11.27-16.99); Mean Corpuscular HGB Conc 31.8 g/dL (30-55); Mean Corpuscular Hemoglobin 27.2 pg (27-33); Mean Corpuscular Volume 85.7 fl (85-98); Nucleated Red Blood Cells % 0 %; Platelet Count 224 10^3/cmm (157-399); Red Blood Count 4.81 10^6/uL (3.85-5.65); White Blood Count 10.65 10^3/uL (3.29-11.43)
[2025-04-18] MEDS: HYDROmorphone 0.5 MG/0.5 ML INJ IVP (02:25)
[2025-04-18] MEDS: metoclopramide 5 mg/mL SDV 2 mL IVP (02:25)
[2025-04-18 02:31] LABS: Troponin(5th) Baseline 10 ng/L (0-10)
[2025-04-18 02:39] LABS: Alanine Aminotransferase 45 U/L (0-33); Albumin Level 4.5 g/dL (3.5-5.2); Alkaline Phosphatase 76 U/L (35-105); Anion Gap 18.8 (5-19); Aspartate Amino Transferase 16 U/L (0-32); Blood Urea Nitrogen 9 mg/dL (6-20); Calcium 9.2 mg/dL (8.5-10.5); Carbon Dioxide 24 mmol/L (22-29); Chloride 101 mmol/L (98-107); Creatinine Clr Calc Pharmacy 72.1647; Globulin 3.3 g/dL (1.3-4.6); Glucose 109 mg/dL (65-115); NT Pro B Type Natriuretic Pept 430 pg/mL (0-125); Osmolality Calculated 289 mOsm/kg (285-295); Potassium 3.8 mmol/L (3.5-5.1); Sodium 140 mmol/L (136-145); Thyroid Stimulating Hormone 41.52 uIU/mL (0.27-4.20); Total Protein 7.8 g/dL (6.6-8.7)
[2025-04-18] MEDS: haloperidol inj 5 mg/mL INJ 1 mL IM (04:09)
[2025-04-18] MEDS: diphenhydrAMINE 50 mg/mL SDV 1mL IM (04:09)
[2025-04-18] MEDS: LORazepam 1 MG/0.5 ML injection 2 MG IM (04:09)
--- NOTE | 2025-04-18 04:20 | ECG_ITS ---
[facility] Date: 2025-04-18 Pat Name: Nina Garcia Department: Room: Gender: Female Barrel Leveler: : 1980 Requested By: Shar Posadas Order Number: [id number] Chan MD: Rodolfo Chen M.D. Measurements Intervals [place] Rate: 127 P: 68 NE: 120 QRS: 94 QRSD: 84 T: 20 QT: 307 QTc: 446 Interpretive Statements SINUS TACHYCARDIA BORDERLINE RIGHT AXIS DEVIATION [QRS AXIS > 90] NONSPECIFIC T-WAVE ABNORMALITY Compared to ECG 04/18/2025 01:37:52 Myocardial infarct finding no longer present Possible ischemia no longer present T-wave abnormality still present Electronically Signed On 04-20-2025 09:42:46 CDT by Rodolfo Chen M.D. [email or web address]
[2025-04-18] MEDS: labetalol 5 mg/mL SDV 20mL 20 MG IVP (04:53)
--- NOTE | 2025-04-18 05:00 | ED_ITS ---
HPI - Headache 2 General: Chief Complaint: Headache Stated Complaint: CP, Migrain x 3 days N/V Time Seen by Provider: 04/18/25 02:07 History of Present Illness: This patient is a 45-year-old white female who presents to the emergency department complaining of a severe migraine. She states it started 3 to 4 days ago. She has a history of migraines but she states this is worse than her usual migraine. She has had vomiting. Her blood pressure has also been running high. She has also developed some chest heaviness and shortness of breath. She does have a history of hypertension, migraines and hypothyroidism. Associated symptoms: Reports chest pain and vomiting Related Data Home Medications ?Medication ?Instructions ?Recorded ?Confirmed ondansetron 8 mg disintegrating 8 mg PO Q8H PRN Nausea And Vomiting 12/09/21 03/14/25 tablet allopurinol 300 mg tablet 300 mg PO QAM 11/25/2203/14 hydromorphone 4 mg tablet 4 mg PO Q4H PRN chronic pain 05/14/24 03/14/25 (Dilaudid) tizanidine 4 mg tablet 8 mg PO QID 03/15/25 5 Previous Rx's ?Medication ?Instructions ?Recorded promethazine 25 mg rectal 25 mg [place] Q6H PRN nausea and 09/30/23 suppository vomiting #12 ea lurasidone 120 mg tablet 120 mg PO DAILY #30 tabs lamotrigine 200 mg tablet 200 mg PO QAM #30 tabs 11/09 lithium carbonate 150 mg capsule 150 mg PO QAM #30 cap s 01/10/25 lithium carbonate 300 mg capsule 300 mg PO .qhs #30 ca ps 01/10/25 lorazepam 2 mg tablet See Rx Instructions PO .COMP ZULLY 02/25/25 #60 tabs semaglutide 0.25 mg or 0.5 mg (2 0.25 mg (0.368 mL) SHANKAR BCUT Q7D 1 03/15/25 mg/3 mL) subcutaneous pen injector month #1.84 mL (Ozempic) Allergies Allergy/AdvReac Type Severity Reaction Status Date / Time midodrine Allergy Intermediate ALGY-Rash Verified 04/18/25 01:49 aspirin Allergy due to BUN Verified 04/18/25 01:49 levels coconut Allergy hives Verified 04/18/25 01:49 ketorolac (From Toradol) Allergy hives Verified 04/18/25 01:49 meloxicam (From Mobic) Allergy hives Verified 04/18/25 01:49 NSAIDS (Non-Steroidal Allergy Unknown Verified 04/18/25 01:49 Anti-Inflamma Review of Systems 2 General: Reports: 10 or more systems reviewed and unremarkable except in HPI and below Card: Reports: chest pain Resp: Reports: dyspnea GI: Reports: vomiting Neuro: Reports: headache(s) PFSH ED 2 PFSH: Medical History (Updated 04/18/25 @ 05:06 by Shar Posadas MD) Chronic pain with drug dependence Postsurgical hypothyroidism Goiter Hypertensive urgency Resistant hypertension GERD (gastroesophageal reflux disease) Nausea & vomiting CKD (chronic kidney disease) Hypothyroid Hypertensive urgency, malignant Pulmonary embolism Chest pain at rest Psychiatric care HLD (hyperlipidemia) DM2 (diabetes mellitus, type 2) Chronic back pain Chronic neck and back pain Post traumatic stress disorder (PTSD) Bipolar 1 disorder, depressed, full remission Hypertensive emergency Palpitation Malignant hypertension Chronic renal disease Generalized anxiety disorder Surgical History History of back surgery H/O esophagogastroduodenoscopy (08/12/20) H/O angioplasty History of colonoscopy with polypectomy (08/12/20) History of spinal fusion 10/01/2013- C5-6, ACDFF Dr. Villanueva H/O rectal polypectomy Status post hemilaminotomy 01/06/2012, right L5-S1, disectomy and foraminotomy per Dr. Villanueva History of suburethral sling procedure anterior colporrhapy augmentd with porcine graft, cystoscopy performed on 03/08/[address] Haley History of total hysterectomy 2000 Hx of cholecystectomy History of appendectomy History of bilateral oophorectomy 2011 H/O total thyroidectomy Family History Mother Diabetes Pancreatic cancer Ovarian cancer Father Diabetes Hypertension Stroke COPD (chronic obstructive pulmonary disease) Grandfather Hypertension maternal Heart disease maternal Grandmother Colon cancer maternal Social History Smoking and tobacco/nicotine status: unknown if used tobacco/nicotine Second hand smoke exposure: Yes Alcohol intake: never Substance/Drug Use: never Additional social history: well balanced diet Caregiver/support person: No Lives independently: Yes Household members: spouse Housing: House Marital status: Number of children: 8 Highest education level completed: GED or Equivalent service: No Current occupational status: unemployed Physical Exam 2 Const: COMMON NORMALS: patient oriented x3 and no limitations GENERAL APPEARANCE: cooperative OTHER: Moderate distress secondary to headache. HENMT: COMMON NORMALS: normocephalic, atraumatic, Normal nasal mucous membranes and turbinates present, moist oral mucous membranes and oropharynx normal HEAD & SCALP: normal to inspection, normocephalic and atraumatic F JENNYFER & SINUS: normal facial exam NOSE: Normal nasal mucous membranes and turbinates present Eye: COMMON NORMALS: Equal, round and reactive pupils present, EOMs intact bilaterally and conjunctivae normal GENERAL EYE: appearance normal, both eyes and all related structures CONJUNCTIVA: Yes conjunctivae normal PUPIL: Yes Equal, round and reactive pupils present Neck/C-Spine: COMMON NORMALS: supple Chest: COMMONS NORMALS: normal inspection of the chest Resp: COMMON NORMALS: normal respiratory effort and clear to auscultation bilaterally AUSCULTATION: clear to auscultation bilaterally Cardio: COMMON NORMALS: regular rhythm RATE: tachycardic RHYTHM: regular rhythm GI: COMMON NORMALS: Normal to inspection, nondistended, normoactive bowel sounds present, Soft to palpation and non-tender AUSCULTATION: Yes normoactive bowel sounds PALPATION: Yes Soft to palpation : COMMON NORMALS: Yes no CVA tenderness BLADDER/KIDNEY EXAM: Yes no CVA tenderness Back/Pelvis: COMMON NORMALS: no CVA tenderness and thoracic and lumbar spine normal to inspection Extremity: COMMON NORMALS: normal to inspection Neuro: COMMON NORMALS: patient oriented x3 and CN's II-XII intact bilaterally Psych: COMMON NORMALS: mental status grossly normal, Normal thought process present and cooperative THOUGHT PROCESS: Normal thought process present Skin: COMMON NORMALS: no rashes or lesions noted, turgor normal and no jaundice GENERAL SKIN EXAM: no rashes or lesions noted and turgor normal Course 2 Vital Signs: Vital signs: Vital Signs Temperature 98.4 F 04/18/25 01:38 Pulse Rate 142 H 04/18/25 04:45 Respiratory Rate 18 04/18/25 01:38 Blood Pressure 184/134 04/18/25 04:45 Pulse Oximetry 95 04/18/25 04:45 Oxygen Delivery Me thod Room Air 04/18/25 04:45 MDM - Headache Medical Decision Making EKG revealed atrial tachycardia at a rate of 128. Chest x-ray was normal. Head CT was read by the radiologist as normal. CBC and CMP normal. BNP 430. TSH 41. Troponin was 10. Patient was initially given Dilaudid for her headache which did not help much. We then tried Haldol, Benadryl and Ativan without much relief. She continued to have the headache along with tachycardia and severe hypertension. I then ordered labetalol bolus with drip. Patient will need to be admitted. I discussed the case with Dr. Nieves, hospitalist. He is coming to the emergency department to evaluate the patient and the patient will be admitted. Lab Data 04/18/25 02:05 04/18/25 02:05 Radiology Impressions Chest X-Ray 04/18/25 02:11 IMPRESSION: No acute findings. Head CT 04/18/25 02:11 IMPRESSION: No acute intracranial abnormality. Laboratory Results WBC 10.65 10^3/uL (3.29-11.43) 04/18/25 02:05 RBC 4.81 10^6/uL (3.85-5.65) 04/18/25 02:05 Hgb 13.10 g/dL (11.27-16.99) 04/18/25 02:05 Hct 41.2 % (36-47) 04/18/25 02:05 MCV 85.7 fl (85-98) 04/18/25 02:05 MCH 27.2 pg (27-33) 04/18/25 02:05 MCHC 31.8 g/dL (30-55) 04/18/25 02:05 RDW 13.9 % (12.1-15.1) 04/18/25 02:05 Plt Count 224 10^3/cmm (157-399) 04/18/25 02:05 MPV 12.2 fL (7.4-10.4) H 04/18/25 02:05 Neut % (Auto) 60.5 % 04/18/25 02:05 Lymph % (Auto) 29.6 % 04/18/25 02:05 [place] % (Auto) 6.4 % 04/18/25 02:05 Eos % (Auto) 2.3 % 04/18/25 02:05 Baso % (Auto) 0.6 % 04/18/25 02:05 Neut # (Auto) 6.46 10^3/uL (1.8-7.7) 04/18/25 02:05 Lymph # (Auto) 3.2 10^3/uL (0.8-4.8) 04/18/25 02:05 [place] # (Auto) 0.7 10^3/uL (0.2-0.9) 04/18/25 02:05 Eos # (Auto) 0.2 10^3/uL (0.0-0.8) 04/18/25 02:05 Baso # (Auto) 0.1 10^3/uL (0.0-0.1) 04/18/25 02:05 Nucleated RBC % (auto) 0 % 04/18/25 02:05 Nucleated RBCs # 0.0 /100WBC 04/18/25 02:05 Sodium 140 mmol/L (136-145) 04/18/25 02:05 Potassium 3.8 mmol/L (3.5-5.1) 04/18/25 02:05 Chloride 101 mmol/L (98-107) 04/18/25 02:05 Carbon Dioxide 24 mmol/L (22-29) 04/18/25 02:05 Anion Gap 18.8 (5-19) 04/18/25 02:05 BUN 9 mg/dL (6-20) 04/18/25 02:05 Creatinine 1.1 mg/dL (0.5-0.9) H 04/18/25 02:05 GFR Calculation 53.2 mL/min (90-130) L 04/18/25 02:05 Glucose 109 mg/dL (65-115) 04/18/25 02:05 Calculated Osmolality 289 mOsm/kg (285-295) 04/18/25 02:05 Calcium 9.2 mg/dL (8.5-10.5) 04/18/25 02:05 Total Bilirubin 0.4 mg/dL (0.15-1.2) 04/18/25 02:05 AST 16 U/L (0-32) 04/18/25 02:05 ALT 45 U/L (0-33) H 04/18/25 02:05 Alkaline Phosphatase 76 U/L (35-105) 04/18/25 02:05 Troponin T Baseline 10 ng/L (0-10) 04/18/25 02:05 NT-Pro-B Natriuret Pep 430 pg/mL (0-125) H 04/18/25 02:05 Total Protein 7.8 g/dL (6.6-8.7) 04/18/25 02:05 Albumin 4.5 g/dL (3.5-5.2) 04/18/25 02:05 Globulin 3.3 g/dL (1.3-4.6) 04/18/25 02:05 TSH 41.52 uIU/mL (0.27-4.20) H 04/18/25 02:05 All radiology interpretation(s) finalized by discharge Discharge Plan Discharge Patient Disposition: Admitted As Inpatient Clinical Impression: Severe hypertension, Headache Condition: Stable Coding Level of Care Code ED Miter Operator for Ingrid Lindsay
--- NOTE | 2025-04-18 05:27 | P.HP_ITS ---
Providers/Chief Complaint 2 Primary Care Provider: Michelle Rico Chief Complaint: CP, Headache x 3 days N/V History of Present Illness Nian Garcia is a 45 year old female with a past medical history of hypertension, labile blood pressures, chronic pain, possible pheochromocytoma?, History of shock liver secondary to fluctuating blood pressures, on lithium, Lamictal, hypothyroidism, on weekly levothyroxine dosing through Dr. Toure, who presents to [facility] for headache/migraine. Patient reports that she has a history of migraines, she used to follow-up with Dr. Herr, she has had a migraine for the last 3 days, with the migraine she has had elevated blood pressures, chest pain, palpitations, she is using her blood pressure medications as prescribed Medications/Allergies Home Medications ?Medication ?Instructions ?Recorded ?Confirmed ?Last Taken ?Type ondansetron 8 mg disintegrating 8 mg PO Q8H PRN Nausea And Vomiting 12/09/21 03/14/25 02/14/25 08:00 History tablet allopurinol 300 mg tablet 300 mg PO QAM 11/25/2203/14 1 Day Ago History ~02/15/25 promethazine 25 mg rectal 25 mg PA Q6H PRN nausea and 09/30/23 03/14/25 06/26/24 Rx suppository vomiting #12 ea hydromorphone 4 mg tablet 4 mg PO Q4H PRN chronic pain 05/14/24 03/14/25 02/15/25 08:00 History (Dilaudid) lurasidone 120 mg tablet 120 mg PO DAILY #30 tabs 03/14/25 02/15/25 08:00 Rx lamotrigine 200 mg tablet 200 mg PO QAM #30 tabs 11/0903/14/25 02/15/25 08:00 Rx lithium carbonate 150 mg capsule 150 mg PO QAM #30 cap s 01/10/25 03/14/25 1 Day Ago Rx ~02/15/25 lithium carbonate 300 mg capsule 300 mg PO .qhs #30 ca ps 01/10/25 03/14/25 02/14/25 21:00 Rx lorazepam 2 mg tablet See Rx Instructions PO .COMP ZULLY 02/25/25 03/14/25 Unknown Rx #60 tabs semaglutide 0.25 mg or 0.5 mg (2 0.25 mg (0.368 mL) SHANKAR BCUT Q7D 1 03/15/25 03/15/25 Unknown Rx mg/3 mL) subcutaneous pen injector month #1.84 mL (Ozempic) tizanidine 4 mg tablet 8 mg PO QID 03/15/25 5 Unknown History Allergies Allergy/AdvReac Type Severity Reaction Status Date / Time midodrine Allergy Intermediate ALGY-Rash Verified 04/18/25 01:49 aspirin Allergy due to BUN Verified 04/18/25 01:49 levels coconut Allergy hives Verified 04/18/25 01:49 ketorolac (From Toradol) Allergy hives Verified 04/18/25 01:49 meloxicam (From Mobic) Allergy hives Verified 04/18/25 01:49 NSAIDS (Non-Steroidal Allergy Unknown Verified 04/18/25 01:49 Anti-Inflamma PFSH Acute 2 PFSH: Medical History Chronic pain with drug dependence Postsurgical hypothyroidism Goiter Hypertensive urgency Resistant hypertension GERD (gastroesophageal reflux disease) Nausea & vomiting CKD (chronic kidney disease) Hypothyroid Hypertensive urgency, malignant Pulmonary embolism Chest pain at rest Psychiatric care HLD (hyperlipidemia) DM2 (diabetes mellitus, type 2) Chronic back pain Chronic neck and back pain Post traumatic stress disorder (PTSD) Bipolar 1 disorder, depressed, full remission Hypertensive emergency Palpitation Malignant hypertension Chronic renal disease Generalized anxiety disorder Surgical History History of back surgery H/O esophagogastroduodenoscopy (08/12/20) H/O angioplasty History of colonoscopy with polypectomy (08/12/20) History of spinal fusion 10/01/2013- C5-6, ACDFF Dr. Villanueva H/O rectal polypectomy Status post hemilaminotomy 01/06/2012, right L5-S1, disectomy and foraminotomy per Dr. Villanueva History of suburethral sling procedure anterior colporrhapy augmentd with porcine graft, cystoscopy performed on 03/08/[address] Haley History of total hysterectomy 2000 Hx of cholecystectomy History of appendectomy History of bilateral oophorectomy 2011 H/O total thyroidectomy Family History Mother Diabetes Pancreatic cancer Ovarian cancer Father Diabetes Hypertension Stroke COPD (chronic obstructive pulmonary disease) Grandfather Hypertension maternal Heart disease maternal Grandmother Colon cancer maternal Social History Smoking and tobacco/nicotine status: unknown if used tobacco/nicotine Second hand smoke exposure: Yes Alcohol intake: never Substance/Drug Use: never Additional social history: well balanced diet Caregiver/support person: No Lives independently: Yes Household members: spouse Housing: House Marital status: Number of children: 8 Highest education level completed: GED or Equivalent service: No Current occupational status: unemployed Vitals/I&O/Wt Last Vital Signs Temp 98.4 F 04/18/25 01:38 Pulse 103 H 04/18/25 05:00 Resp 18 04/18/25 01:38 BP 160/104 04/18/25 05:00 Pulse Ox 94 04/18/25 05:00 O2 Del Method Room Air 04/18/25 05:00 04/17/25 04/17/25 04/18/25 14:59 22:59 06:59 Intake Total 1000 / 1000 Balance 1000 / 1000 Weight last 48 hrs Weight 95.254 kg Physical Exam 2 Const: COMMON NORMALS: no acute distress and patient oriented x3 HENMT: COMMON NORMALS: normocephalic HEAD & SCALP: normocephalic Eye: COMMON NORMALS: Equal, round and reactive pupils present and EOMs intact bilaterally Resp: COMMON NORMALS: normal respiratory effort, No retractions, No use of accessory muscles and clear to auscultation bilaterally AUSCULTATION: clear to auscultation bilaterally Cardio: COMMON NORMALS: regular rate, regular rhythm, S1 normal heart sound present and S2 normal heart sound present RATE: regular rate RHYTHM: r egular rhythm HEART SOUNDS: S1 normal heart sound present and S2 normal heart sound present GI: COMMON NORMALS: Normal to inspection, nondistended, normoactive bowel sounds present, Soft to palpation and non-tender Extremity: COMMON NORMALS: no calf tenderness and no pedal edema Neuro: COMMON NORMALS: patient oriented x3, CN's II-XII intact bilaterally and moves all extremities Psych: COMMON NORMALS: mental status grossly normal Data 04/18/25 02:05 04/18/25 02:05 A&P Assessment and plan 1. Hypertensive urgency: 2. Labile hypertension: 3. Tachycardia: 4. DM2 (diabetes mellitus, type 2): 5. Hypothyroid: 6. Adrenal insufficiency: 7. Headache: Plan: Hypertensive urgency - Patient has a history of labile blood pressures, is very sensitive to drips - She has received labetalol, blood pressure 160/100 - Will resume her morning doxazosin - She is currently under investigation for pheochromocytoma through Dr. Toure's office Migraine - Improving with interventions in the emergency room - Will monitor Patient was on fludrocortisone, prednisone - Will reach out to Dr. Toure in the morning as they do not show up on the patient's medication list Hypothyroidism - Elevated TSH - Will need to reach Dr. Toure in the morning Type 2 diabetes mellitus - Low-dose sliding scale Full code Lovenox for DVT prophylaxis PDMP PDMP Reviewed: Last Reviewed 04/18/25 05:23 by Christiano Marshall MD Attestations 2 Medical Necessity Statement*: Patient requires hospitalization, outpatient with observation, for hypertensive urgency, migraine Coding Level of Care Code Acute Code for Chg Fwd Diagnoses Hypertensive urgency I16.0 Labile hypertension R09.89 Tachycardia R00.0 DM2 (diabetes mellitus, type 2) E11.9 Hypothyroid E03.9 Adrenal insufficiency E27.40 Headache R51.9
[2025-04-18 05:35] LABS: Troponin 5 2HR 9.89 ng/L (0-10)
[2025-04-18 05:36] LABS: Troponin 5 2HR Delta -0.11 ABS# (0-10)
[2025-04-18] MEDS: ondansetron 2 mg/ML SDV 2 mL 4 MG IVP (07:57)
[2025-04-18 08:26] LABS: Troponin 5 6HR 9.35 ng/L (0-10); Troponin 5 6HR Delta -0.65 ng/L (0-12)
[2025-04-18 09:54] LABS: Free T4 Free Thyroxine 0.94 ng/dL (0.82-1.77)
[2025-04-18] MEDS: metoprolol succinate ER (24 HR) 25 mg Tablet PO (10:43)
[2025-04-18] MEDS: hyDRALAzine 20 mg/mL INJ 1 mL 10 MG IVP (10:43)
[2025-04-18] MEDS: HYDROmorphone tab 2 MG TABLET 4 MG PO ×2 (11:45→19:43)
--- NOTE | 2025-04-18 12:45 | P.PN_ITS ---
Subjective 2 Subjective: The patient was seen in the morning in the ER. The patient reported having back pain and she is using currently her tizanidine. The patient came with headaches and is following with endocrinology. Blood pressure still in the higher range cuff adjusted and her home medications delivered. The patient did not report any chest pain shortness of breath, altered mentation, worsening of any headaches or blurriness of vision Vitals/I&O/Wt Last Vital Signs Temp 98.4 F 04/18/25 01:38 Pulse 113 H 04/18/25 08:15 Resp 20 H 04/18/25 07:12 BP 92/54 04/18/25 12:30 Pulse Ox 92 04/18/25 12:30 O2 Del Method Room Air 04/18/25 11:49 04/17/25 04/18/25 04/18/25 22:59 06:59 14:59 Intake Total 1000 / 1000 50 / 50 Balance 1000 / 1000 50 / 50 Weight last 48 hrs Weight 95.254 kg Physical Exam 2 Narrative: General: Alert oriented x3, patient seen lying with mild distress due to back pain, at room air HEENT: Normocephalic, atraumatic, EOMI, breathing comfortably Cardio: Regular rate rhythm, normal S1-S2, no murmurs rubs gallops, JVD normal Respiratory: Good bilateral air entry, no wheezes no rhonchi appreciated GI: Abdomen soft, nontender, nondistended, normoactive bowel sounds present all 4 quadrants, Neuro: Cranial nerves II to XII intact, strength 5/5, sensation 5/5, no gross neurological deficit Behavior: Appropriate and cooperative Extremities: Pulses 2+, no edema, no cyanosis Skin: Visible skin intact, no rashes Data 04/18/25 02:05 04/18/25 02:05 A&P Assessment and plan 1. Hypertensive urgency: 2. Headache: 3. Chronic pain with drug dependence: 4. Postsurgical hypothyroidism: 5. Nonadherence to medication: 6. At risk for polypharmacy: 7. Bipolar 1 disorder: 8. Adrenal insufficiency: Plan: - Patient has a history of labile blood pressures, is very sensitive to drips - She has received labetalol, blood pressure 160/100 and later the BP in the morning was around 190s, she was given clonidin 0.2mg, metoprolol 25mg stat with addition of amlodipine 10mg, however her BP was around 80s with MAP above 65mmhg. called her broth mixer and mentioned about her BP lability is more related to adrenal insufficiency with loss of vascular tone with further non complaince of medications likely - hold amlodipine and continue home medications with clonidine 0.2mg and metoprolol 12.5mg reduced dose after the bp is more stable - one bolus of NS stat - continue prednisone 7.5mg daily and hydrocortisone 0.2mg daily as per endo plan - she is getting iv levothyroxine per week, TSH acceptable as per endocrine and improving - migraines headache improving - Low-dose sliding scale for DM Full code Lovenox for DVT prophylaxis PDMP PDMP Reviewed: Not Reviewed Attestations 2 Medical Necessity Statement*: Nina Garcia's hospital stay will require greater than 2 midnights for hypertensive urgency with labile blood pressure readings Time Spent in Patient Care: 16 - 35 minutes (>than 50% of time sp ent in counselling and/or direct pt care on unit) . Other Attestations: Patient condition has been discussed at length with the patient/family, I have independently reviewed the chart labs imaging and diagnostics and EKG. the goals of care and code status with the patient/family/NOK/legal financial representative, and documented accordingly. The patient/family has been informed about the current condition and further plan of care. Agreed with the plan of care and understood without any language barrier. This documentation was created by [employer] mental health practitioner software. Every effort was made to ensure accuracy of mental health practitioner. Any obvious errors or omissions should be clarified with the author of the document. Coding Level of Care Code 26881 Diagnoses Hypertensive urgency I16.0 Headache R51.9 Chronic pain with drug dependence G89.29; F19.20 Postsurgical hypothyroidism E89.0 Nonadherence to medication Z91.148 At risk for polypharmacy Z91.89 Bipolar 1 disorder F31.9 Adrenal insufficiency E27.40
--- NOTE | 2025-04-18 13:14 | PC.NURSE ---
PATIENT BP SUBSTANTIALLY LOWER. NURSE ASSESSED PATIENT. PATIENT ALERT AND ORIENTED UPON AROUSAL. PATIENT STATES THIS HAS HAPPENED BEFORE AFTER MY MEDICATIONS. IT GETS REALLY LOW. PATIENT ABLE TO SPEAK WITH NURSE. JAVIER NOTIFIED OF PATIENT BP. 1 L BOLUS ORDERED.
[2025-04-19 00:21] VITALS: BP 112/80; PULSE 88; RESP 16
[2025-04-19] MEDS: ondansetron 2 mg/ML SDV 2 mL 4 MG IVP (00:51)
[2025-04-19] MEDS: HYDROmorphone tab 2 MG TABLET 4 MG PO ×2 (01:01→09:02)
[2025-04-19 04:00] VITALS: BP 112/80; PULSE 88; RESP 16
[2025-04-19 04:12] VITALS: BP 112/80; PULSE 72; RESP 12
[2025-04-19 08:00] VITALS: BP 112/70; PULSE 70; RESP 13; TEMP 36.7
[2025-04-19 10:00] VITALS: BP 112/70; PULSE 70; RESP 13; TEMP 36.7
[2025-04-19] MEDS: levothyroxine 100 mcg/mL SDV 550 MCG IM (10:41)
--- NOTE | 2025-04-19 11:00 | PM.DCS ---
Discharge Providers Date of Admission: 04/18/25 05:25 Date of Discharge: April 19, 2025 Attending Provider at Admission: Christiano Marshall MD Attending Provider at Discharge: Christiano Marshall MD Primary Care Provider: Michelle Rico Diagnoses at Discharge Discharge Diagnosis 1. Hypertensive urgency: 2. Headache: 3. Chronic pain with drug dependence: 4. Postsurgical hypothyroidism: 5. Nonadherence to medication: 6. At risk for polypharmacy: 7. Bipolar 1 disorder: 8. Adrenal insufficiency: Reason for Visit Reason for Visit: CP, Headache x 3 days N/V Brief History: Nina Garcia is a 45 year old female with a past medical history of hypertension, labile blood pressures, chronic pain, possible pheochromocytoma?, History of shock liver secondary to fluctuating blood pressures, on lithium, Lamictal, hypothyroidism, on weekly levothyroxine dosing through Dr. Toure, who presents to [facility] for headache/migraine. Patient reports that she has a history of migraines, she used to follow-up with Dr. Herr, she has had a migraine for the last 3 days, with the migraine she has had elevated blood pressures, chest pain, palpitations, she is using her blood pressure medications as prescribed Hospital Course Hospital Course The patient was kept in the hospital for monitoring of her blood pressure. The patient had labile blood pressure readings which was likely multifactorial especially related to her adrenal insufficiency, possibility of medication noncompliance due to lack of adequate understanding of dosing and timing based upon patient history, Head CT was done and did not show any acute pathology chest x-ray was also unremarkable the patient file was reviewed and at some point she had increased catecholamines but PET/CT did not show any remarkable finding as per the notes from the endocrinology. During her hospital stay the patient blood pressure was labile and she received amlodipine 10 mg, clonidine 0.2 and metoprolol. This medication was given after taking history from the patient however when the chart was reviewed there was a discrepancy in the medications were held. The patient had mild low blood pressure readings however became stable without any further complication. The patient was informed about the management and care. And she understands and agreed with it. She was also informed about her medications and the need of compliance and. [employer] was called and further information was taken. She was provided her home medications and reconciled accordingly she is receiving levothyroxine 550 mcg infusion center and the patient every Tuesday. After reconciliation patient education and establishment of stability patient to be discharged with endocrinology follow-up as Physical Exam Narrative: General: Alert oriented x3, lying comfortably at room air without any distress HEENT: Normocephalic, atraumatic, EOMI, breathing comfortably Cardio: Regular rate rhythm, normal S1-S2, no murmurs rubs gallops, JVD normal Respiratory: Good bilateral air entry, no wheezes no rhonchi appreciated GI: Abdomen soft, nontender, nondistended, normoactive bowel sounds present all 4 quadrants, Neuro: Cranial nerves II to XII intact, strength 5/5, sensation 5/5, no gross neurological deficit Behavior: Appropriate and cooperative Extremities: Pulses 2+, no edema, no cyanosis Skin: Visible skin intact, no rashes Discharge Data Studies Completed and Pending Completed Studies During Hospitalization Category Date Time Status CT head wo con* [id number] Stat Cat Scan 04/18/25 02:11 Completed XR chest 1V portable [id number] Stat Exams 04/18/25 02:11 Completed Radiology Impressions Chest X-Ray 04/18/25 02:11 IMPRESSION: No acute findings. Head CT 04/18/25 02:11 IMPRESSION: No acute intracranial abnormality. Laboratory Results WBC 10.65 10^3/uL (3.29-11.43) 04/18/25 02:05 RBC 4.81 10^6/uL (3.85-5.65) 04/18/25 02:05 Hgb 13.10 g/dL (11.27-16.99) 04/18/25 02:05 Hct 41.2 % (36-47) 04/18/25 02:05 MCV 85.7 fl (85-98) 04/18/25 02:05 MCH 27.2 pg (27-33) 04/18/25 02:05 MCHC 31.8 g/dL (30-55) 04/18/25 02:05 RDW 13.9 % (12.1-15.1) 04/18/25 02:05 Plt Count 224 10^3/cmm (157-399) 04/18/25 02:05 MPV 12.2 fL (7.4-10.4) H 04/18/25 02:05 Neut % (Auto) 60.5 % 04/18/25 02:05 Lymph % (Auto) 29.6 % 04/18/25 02:05 Dale % (Auto) 6.4 % 04/18/25 02:05 Eos % (Auto) 2.3 % 04/18/25 02:05 Baso % (Auto) 0.6 % 04/18/25 02:05 Neut # (Auto) 6.46 10^3/uL (1.8-7.7) 04/18/25 02:05 Lymph # (Auto) 3.2 10^3/uL (0.8-4.8) 04/18/25 02:05 Dale # (Auto) 0.7 10^3/uL (0.2-0.9) 04/18/25 02:05 Eos # (Auto) 0.2 10^3/uL (0.0-0.8) 04/18/25 02:05 Baso # (Auto) 0.1 10^3/uL (0.0-0.1) 04/18/25 02:05 Nucleated RBC % (auto) 0 % 04/18/25 02:05 Nucleated RBCs # 0.0 /100WBC 04/18/25 02:05 Sodium 140 mmol/L (136-145) 04/18/25 02:05 Potassium 3.8 mmol/L (3.5-5.1) 04/18/25 02:05 Chloride 101 mmol/L (98-107) 04/18/25 02:05 Carbon Dioxide 24 mmol/L (22-29) 04/18/25 02:05 Anion Gap 18.8 (5-19) 04/18/25 02:05 BUN 9 mg/dL (6-20) 04/18/25 02:05 Creatinine 1.1 mg/dL (0.5-0.9) H 04/18/25 02:05 GFR Calculation 53.2 mL/min (90-130) L 04/18/25 02:05 Glucose 109 mg/dL (65-115) 04/18/25 02:05 POC Glucose 122 mg/dL (70-110) H 04/18/25 20:14 Calculated Osmolality 289 mOsm/kg (285-295) 04/18/25 02:05 Calcium 9.2 mg/dL (8.5-10.5) 04/18/25 02:05 Total Bilirubin 0.4 mg/dL (0.15-1.2) 04/18/25 02:05 AST 16 U/L (0-32) 04/18/25 02:05 ALT 45 U/L (0-33) H 04/18/25 02:05 Alkaline Phosphatase 76 U/L (35-105) 04/18/25 02:05 Troponin T Baseline 10 ng/L (0-10) 04/18/25 02:05 Troponin T 120 Minute 9.89 ng/L (0-10) 04/18/25 05:02 Delta Troponin T -0.11 ABS# (0-10) L 04/18/25 05:02 Troponin T Hi Sens 6Hr 9.35 ng/L (0-10) 04/18/25 07:55 Troponin T Hi Sens 6Hr Delta -0.65 ng/L (0-12) L 04/18/25 07:55 NT-Pro-B Natriuret Pep 430 pg/mL (0-125) H 04/18/25 02:05 Total Protein 7.8 g/dL (6.6-8.7) 04/18/25 02:05 Albumin 4.5 g/dL (3.5-5.2) 04/18/25 02:05 Globulin 3.3 g/dL (1.3-4.6) 04/18/25 02:05 TSH 41.52 uIU/mL (0.27-4.20) H 04/18/25 02:05 Free T4 0.94 ng/dL (0.82-1.77) 04/18/25 02:05 Free T3 2.4 PG/ML (2.0-4.4) 04/18/25 02:05 Vitals Last Vital Signs Temp 98.1 F 04/19/25 08:00 Pulse 70 04/19/25 08:00 Resp 13 04/19/25 08:00 BP 112/70 04/19/25 08:00 Pulse Ox 97 04/18/25 20:00 O2 Del Method Room Air 04/18/25 20:00 Discharge Plan Discharge Patient Disposition: Home Condition: Stable Prescriptions: New doxazosin 1 mg Tablet 1 mg PO Q8H 60 Days Qty: 180 0RF fludrocortisone 0.1 mg Tablet 0.2 mg PO DAILY 90 Days Qty: 90 0RF metoprolol tartrate 25 mg Tablet 12.5 mg PO BID@0900,2100 90 Days Qty: 90 0RF Continued hydromorphone [Dilaudid] 4 mg tablet 4 mg PO Q4H PRN (Reason: chronic pain) lamotrigine 200 mg tablet 200 mg PO QAM Qty: 30 11RF allopurinol 300 mg tablet 300 mg PO QAM tizanidine 4 mg tablet 8 mg PO QID Ozempic 0.25 mg or 0.5 mg (2 mg/3 mL) pen injector 0.25 mg SUBCUT Q7D 30 Days Qty: 1.84 0RF lurasidone 120 mg tablet 120 mg PO DAILY Qty: 30 11RF Rx Instructions: must administer with food (at least 350 calories) lithium carbonate 150 mg capsule 150 mg PO QAM Qty: 30 11RF lithium carbonate 300 mg capsule 300 mg PO .qhs Qty: 30 11RF lorazepam 2 mg tablet See Rx Instructions PO .COMPLEX Qty: 60 5RF Rx Instructions: Take one half tab (1mg) by mouth in AM and at noon, then take one tab (2mg) at bedtime ondansetron 8 mg tablet,disintegrating 8 mg PO Q8H PRN (Reason: Nausea And Vomiting) promethazine 25 mg suppository 25 mg DC Q6H PRN (Reason: nausea and vomiting) Qty: 12 0RF prednisone 5 mg tablet 7.5 mg PO DAILY zolpidem 10 mg tablet 10 mg PO BEDTIME Discontinued prazosin 2 mg capsule 2 mg PO BEDTIME Discharge Order = DC NOW: Discharge Order (Routine); Ordered 04/19/25 Ordered By: Christiano Marshall Referrals: Michelle Rico FNP [Primary Care Provider, Nurse Practitioner] - 04/26/25 2:30 pm Carol Toure MD [Physician, Endocrinology] - 04/25/25 12:30 pm Discharge Diet: Advance as tolerated and Usual diet Discharge Activity: Resume usual activity and Increase activity as tolerated Patient Instructions: Metoprolol (By mouth), Doxazosin (By mouth), Fludrocortisone Acetate (By mouth), Headache, Chronic Hypertension (DC), Opioid Safety, Patient Portal & Braden Instructions Discharge Attestations Time Spent in Discharge Care*: less than 30 min Specific Discharge Activities: educating patient, educating and/or supporting family/caregiver, discussing with pcp/other providers, discussing with patient case coordinator/social workers/dc planners, documenting/other paperwork and evaluating patient/reviewing data Status at Discharge: Cognitive status at discharge: cognitively intact, Behavioral status at discharge: cooperative, Functional status at discharge: independent ambulation, Overall status at discharge: patient is back to baseline Quality Metrics Clinical Quality Measures [ No reported AMI, CVA or VTE this stay] Coding Level of Care Code 34534 Diagnoses Hypertensive urgency I16.0 Headache R51.9 Headache chronicity pattern: acute headache Headache type: unspecified Intractability: intractable Chronic pain with drug dependence G89.29; F19.20 Postsurgical hypothyroidism E89.0 Nonadherence to medication Z91.148 At risk for polypharmacy Z91.89 Bipolar 1 disorder F31.9 Adrenal insufficiency E27.40
[2025-04-19 11:25] VITALS: BP 112/70; PULSE 72; RESP 18; O2SAT 96
--- OUTSIDE RECORDS SUMMARY | 2025-04-19 12:14 | XMS_ITS | Encounter Summary ---
Author Organization [facility] Address [address] [place] [address] Care Team Providers Care Receptionist Scheduler Name Role Phone Non-Staff, Physician Primary Care Provider Unava ilable Encounter Details Date Type Department Care Team (Latest Contact Info) Description 02/12/2000 Outpatient Historical [facility] Oseas Guidry MD [address] [place] [id number] Bronchitis, not specified as acute or chronic (Primary Dx); Nonallopathic lesion of thoracic region, not elsewhere classified Social History Tobacco Use Types Packs/Day Years Used Date Smoking Tobacco: Never Assessed Comments Unknown Sex and Gender Information Value Date Recorded Sex Assigned at Not on file 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
--- OUTSIDE RECORDS SUMMARY | 2025-04-19 12:14 | XMS_ITS | Encounter Summary ---
Author Organization [facility] Address [address] [place] [address] Care Team Providers Care Logistician Name Role Phone Non-Staff, Physician Primary Care Provider Unava ilable Encounter Details Date Type Department Care Team (Latest Contact Info) Description 01/22/2000 Outpatient Historical [facility] Oseas Guidry MD [address] [place] [address] Chest pain, unspecified (Primary Dx); Headache(784.0); Dyspepsia and other specified disorders of function of stomach Social History Tobacco Use Types Packs/Day Years Used Date Smoking Tobacco: Never Assessed Comments Unknown Sex and Gender Information Value Date Recorded Sex Assigned at Not on file 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
--- OUTSIDE RECORDS SUMMARY | 2025-04-19 12:14 | XMS_ITS | Encounter Summary ---
Author Organization [facility] Address [address] [place] [address] Care Team Providers Care Central Office Mechanic Name Role Phone Non-Staff, Physician Primary Care Provider Unava ilable Encounter Details Date Type Department Care Team (Latest Contact Info) Description 01/26/2000 Outpatient Historical [facility] Oseas Guidry MD [address] [place] [address] Chest pain, unspecified (Primary Dx); Nonallopathic lesion of thoracic region, not elsewhere classified; Personal history of endocrine, metabolic, and immunity disorders Social History Tobacco Use Types Packs/Day Years Used Date Smoking Tobacco: Never Assessed Comments Unknown Sex and Gender Information Value Date Recorded Sex Assigned at Not on file 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
--- OUTSIDE RECORDS SUMMARY | 2025-04-19 12:14 | XMS_ITS | Clinical Summary ---
Author Organization [facility] Address [address] [place] [address] Care Team Providers Care Oil Scout Name Role Phone Non-Staff, Physician Primary Care Provider Unava ilable Allergies Active Allergy Reactions Criticality Noted Date Comments Aspirin Other (See Comments) 04/05/2019 Was instructed not to take medication Ketorolac Unknown 04/28/2011 Meloxicam Unknown 04/28/2011 Nsaids (Non-Steroidal Anti-Inflammatory Drug) Other (See Comments) 04/05/2019 Cant take because of Cataract Medications HYDROcodone-fran taminophen (NORCO) 10-325 mg Oral [...] tablet Take 30 mg by mouth daily costume rental clerk. 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 Gender Identity Not on file Sexual Orientation Not on file Last Filed Vital Signs Vital Sign Reading Time Taken Comments Blood Pressure 122/70 09/19/2020 1:09 PM URBAN AND REGIONAL PLANNER Pulse 112 09/19/2020 1:09 PM URBAN AND REGIONAL PLANNER Temperature 35.8 C (96.4 F) 04/03/2020 12:41 PM CDT Respiratory Rate 20 04/03/2020 12:41 PM CDT Oxygen Saturation 99% 04/03/2020 12:41 PM CDT Inhaled Oxygen Concentration - - Weight 100.2 kg (221 lb) 09/19/2020 1:09 PM URBAN AND REGIONAL PLANNER Height 165.1 cm (5' 5 ) 09/19/2020 1:09 PM URBAN AND REGIONAL PLANNER Body Mass Index 36.78 09/19/2020 1:09 PM URBAN AND REGIONAL PLANNER Plan of Treatment Health Maintenance Due Date [...] 2025 06/04/2019 Medical Devices Implanted Type Area Hydro Operator Device Identifier Shelf Expiration Date Model / Serial / Lot Hemostatic Surgifoam [id number] - [id number] Implanted:06/12 by Quinten Medeiros MD at [facility] (Quantity not on file) Hemostatic N/A: Neck [employer]- [employer] 03/29/20231971 [id number] Procedures Procedure Name Priority Date/Time Associated Diagnosis Comments COLONOSCOPY REPORT 10/26/2019 11 :43 AM URBAN AND REGIONAL PLANNER from Last 3 Months or Most Recently Relevant to Health Maintenance Results * COLONOSCOPY REPORT (10/26/2019 11:43 AM URBAN AND REGIONAL PLANNER) Narrative Procedure Note Kurt Howard DO - 10/26/2019 11:43 AM CST [facility] GI Patient Name: Nina Garcia Procedure Date: [...] 11:26:45 AM Scope Out: 11:40:06 AM [address] [place], [place] Kurt Howard DO GI PROCEDURE ORDERABLES Final Result from Last 3 Months or Most Recently Relevant to Health Maintenance Insurance Advance Directives For more information, please contact: [phone] * Full Code (Latest Code Status on File) Date Activated Date Inactivated Comments 04/02/2020 8:57 PM 04/03/2020 5:02 PM * Full Code Date Activated Date Inactivated Comments 10/26/2019 10:01 AM 10/26/2019 2:26 PM * Full Code Date Activated Date Inactivated Comments 06/12/2019 11:39 AM 06/13/2019 5:40 PM * Full Code Date Activated Date Inactivated Comments 04/05/2019 9:15 PM 04/07/2019 5:09 PM Care Teams Oil Scout Relationship Specialty Start Date End Date Non-Staff, Physician NO ADDRESS ON FILE PCP - General 04/02/20
--- OUTSIDE RECORDS SUMMARY | 2025-04-19 12:14 | XMS_ITS | Encounter Summary ---
Author Organization [facility] Address [address] [place] [address] Phone Care Team Providers Care Stock Pitcher Name Role Phone Michelle Rico Primary Care Provider [phone] Reason for Visit * Reason Comments Med Refill Encounter Details Date Type Department Care Team (Late st Contact Info) Description 01/21/2022 Refill [facility] [address] [place] [address] Dangelo Monreal MD [address] [place] [address] Social History Tobacco Use Types [...] on filedocumented in this encounter Care Teams Stock Pitcher Relationship Specialty Start Date End Date Michelle Rico FNP [address] PCP - General 09/26/19 documented as of this encounter
--- OUTSIDE RECORDS SUMMARY | 2025-04-19 12:14 | XMS_ITS | Encounter Summary ---
Author Organization [facility] Address [address] [place] [address] Care Team Providers Care Senior Lead Project Manager Name Role Phone Non-Staff, Physician Primary Care Provider Unava ilable Encounter Details Date Type Department Care Team (Latest Contact Info) Description 04/21/2000 Outpatient Historical [facility] Oseas Guidry MD [address] [place] [address] Blood in stool (Primary Dx); Other malaise and fatigue Social History Tobacco Use Types Packs/Day Years Used Date Smoking Tobacco: Never Assessed Comments Unknown Sex and Gender Information Value Date Recorded Sex Assigned at Not on file 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
--- OUTSIDE RECORDS SUMMARY | 2025-04-19 12:14 | XMS_ITS | Encounter Summary ---
Author Organization [facility] Address [address] [place] [address] Care Team Providers Care Dewer Name Role Phone Non-Staff, Physician Primary Care Provider Unava ilable Encounter Details Date Type Department Care Team (Latest Contact Info) Description 05/25/2000 Outpatient Historical [facility] Shaheen Bey MD [address] [facility] [address] [place] [address] Follow-up examination following surgery (Primary Dx) Social History Tobacco Use Types Packs/Day Years Used Date Smoking Tobacco: Never Assessed Comments Unknown Sex and Gender Information Value Date Recorded Sex Assigned at Not on file 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
--- OUTSIDE RECORDS SUMMARY | 2025-04-19 12:14 | XMS_ITS | Encounter Summary ---
Author Organization [facility] Address [address] [facility] [address] [place] [address] Phone Care Team Providers Care Racking Machine Operator Name Role Phone Michelle Rico Primary Care Provider [phone]- [phone] Reason for Visit * Reason Comments Med Refill Encounter Details Date Type Department Care Team (Late st Contact Info) Description 09/10/2021 Refill [facility] [address] [facility] [address] [place] [address] Josseline Wong NP [address] [place] [address] Social History Tobacco Use Types [...] on filedocumented in this encounter Care Teams Racking Machine Operator Relationship Specialty Start Date End Date Michelle Rico FNP [address] [place] [address]k PCP - General 09/26/19 documented as of this encounter
--- OUTSIDE RECORDS SUMMARY | 2025-04-19 12:14 | XMS_ITS | Encounter Summary ---
Author Organization [facility], [facility] Address [address] [place] [address] Phone Care Team Providers Care Electronics Manufacturer Name Role Phone Michelle Rico TORSTEN Primary Care Provider [phone] Encounter Details Date Type Department Care Team (Late st Contact Info) Description 11/12/2020 [facility] [address] [place] [address] Josseline Wong NP [address] [place] [address] Stage 3 chronic kidney disease [...] ratio, urine (12/09/2020 3:16 PM CDT) Pathologist [facility] Protein, Ur 51(H) 0 - 20 mg/dL [facility] Creatinine, Urine 347.9(H) 29.0 - 226.0 mg/dL [facility] Comment:Reference Range vari es with fluid intake and diet. Protein/Creatin ine Ratio, Urine 0.15 0.00 - 0.19 mg/mg Creatinine [facility] Comment: Specimen Source: Urine, unspecified source Performed at: [place] [address] Drawing Tracer: German Casey MD [facility] # [id number] Urine Urine specimen / Unknown 12/09/2020 3:16 PM CDT 12/09/2020 5:07 PM CDT Josseline Wong TECHNICAL BUYER LAB URINE ORDERABLES [facility] l Result [facility] * (ABNORMAL) Vit D 25 hydroxy (12/09/2020 3:16 PM CDT) Pathologist [facility] Vitamin D, 25-Hydroxy 22(L) 30 - 100 ng/mL [facility] Comment: Interpretive Data Chart: Deficient: 0 - 20 ng/mL Insufficient: 21 - 29 ng/mL Sufficient: 30 - 100 ng/mL Increased Risk of Hypercalciuria: >100 ng/ml Toxic: >150 ng/ml Performed at: [facility] [address] [place] [address] Drawing Tracer: German Casey MD CLIA # [id number] Blood 12/09/2020 3:16 PM CDT 12/09/2020 5:07 PM CDT Josseline Wong TECHNICAL BUYER LAB BLOOD ORDERABLES Millicent l Result Performing Organization Address City/[facility] Co de Phone Number [facility] SNA * PTH, intact (12/09/2020 3:16 PM CDT) Pathologist [facility] PTH 34.9 15.0 - 65.0 pg/mL [facility] Comment: Performed at: [place] [address] Drawing Tracer: German Casey MD CLIA # [id number] Blood 12/09/2020 3:16 PM CDT 12/09/2020 5:07 PM CDT Josseline Wong TECHNICAL BUYER LAB BLOOD ORDERABLES Millicent l Result Performing Organization Address City/[facility] Co de Phone Number [facility] * (ABNORMAL) CBC (12/09/2020 3:16 PM CDT) WBC 8.3 4.5 - 11.0 K/uL [facility] Red Blood Cells 5.09 4.20 - 5.40 M/uL [facility] Hgb 14.3 12.0 - 16.0 g/dL [facility] Hematocrit 45.1 36.0 - 46.0 % [facility] MCV 88.6 84.0 - 103.0 fL [facility] MCH 28.1 27.0 - 34.0 pg [facility] MCHC 31.7 30.0 - 35.0 g/dL [facility] Platelets 246 140 - 440 K/uL [facility] MPV 12.2 8.9 - 12.8 fL [facility] RDW 15.8(H) 11.0 - 14.5 % [facility] RDW-SD 51.7 37.0 - 54.0 fL [facility] Comment: Performed at: [facility] [address] Drawing Tracer: MD GIRISH Castillo # [id number] Blood 12/09/2020 3:16 PM CDT 12/09/2020 5:07 PM CDT us Josseline Wong TECHNICAL BUYER LAB BLOOD ORDERABLES Millicent l Result [facility] [...] SNA Comment: TEST COMMENT: Fasting?->No Performed at: [facility] [address] [place] [address] Drawing Tracer: MD GIRISH Castillo # [id number] Blood 12/09/2020 3:16 PM CDT 12/09/2020 5:07 PM CDT us Josseline Wong TECHNICAL BUYER LAB BLOOD ORDERABLES Mill[facility] l Result [facility] documented in this encounter Visit Diagnoses Diagnosis Stage 3 chronic kidney disease (HCC) documented in this encounter Care Teams Electronics Manufacturer Relationship Specialty Start Date End Date Michelle Rico FNP [address] Taj Garzas MD PCP - General 09/26/19 documented as of this encounter
--- OUTSIDE RECORDS SUMMARY | 2025-04-19 12:14 | XMS_ITS | Patient Health Record ---
Author Organization [email or web address] Address [address] [place], [place] [id number] Care Team Providers Care Milk Receiver Tank Truck Name Role Phone Michelle Xavier Primary Care Provider Jeannette Howell MD, Dillon Unavailable [phone] Aisha VILLALPANDO, Dominic Unavailable Unavailable Tarah Villalobos Unavailable [phone] Allergies Allergen (clinical drug ingredient) Drug/Non Drug Allergy documented on EMR Reaction Allergy Type Onset Date Status NSAIAs (uncoded) kidney issues Allergy Active Toradol Unknown Drug Allergy Active aspirin aspirin Unknown Drug Allergy Active meloxicam Mobic Unknown Drug Allergy Active Results Component Value Reference Range Notes Urine tox screen / MS if ind [...] 09:57:55 AM Interpretation:Consistent Performing Lab: Notes/Report: Consistent Embedded PDF Reviewed date:12/03/2024 07:57:20 AM Interpretation: Performing Lab: Notes/Report: [facility]), [address], [place] [address], , L ab Director: Justina Nunez MD, CLIA ID# [id number] [employer] Results Reviewed date:12/03/2024 07:57:02 AM Interpretation: Performing Lab:[id number] [facility], [address] [id number] Justina Nunez MD Notes/Report: [facility], [address] [facility], [place] [address], , L ab Director: Justina Nunez MD, CLIA ID# [id number] Hydromorphone Quantification positive-4916.256 50 ng/m L BENZODIAZEPINES SCREEN negative 200 ng/mL cTHC (Marijuana metabolite) Quantification negative 15 ng/mL CREATININE normal-197.8 >20 mg/dL mg/dL OXIDANT normal-0 <200 ug/mL ug/mL PH normal-6.1 4.5 - 9.5 SPECIFIC GRAVITY normal-1.014 1.003 - 1.035 Reason For Referral No Information Medications Medication [...] Problem Status W/U Status Risk Notes Problem Sacroiliitis (10645990) Sacroiliitis (720.2) Active confirmed Problem Lumbosacral spondylosis without myelopathy (25170266) Lumbosacral spondylosis without myelopathy (721.3) Active confirmed Problem Displacement of lumbar intervertebral disc without myelopathy (29935617) Lumbar (w/out myelopathy) intervertebral disc disorder (722.10) Active confirmed Problem Spasm (15182639) Muscle spasm (728.85) Active confirmed Problem Sleep dysfunction with sleep stage disturbance (548879215) Dysfunctions associated with sleep stages or arousal from sleep (780.56) Active confirmed Problem Low back pain (975369291) Low back pain (724.2) Active confirmed Problem Neck pain (30319157) Neck pain (723.1) Active confirmed Problem Pain in thoracic spine (924787593) Thoracic pain (724.1) Active confirmed Problem Arthralgia of the pelvic region and thigh (038463846) Pelvic/Hip pain (719.45) Active confirmed Problem Long-term drug therapy (298170816) LONG-TERM USE MEDS NEC (V58.69) Active confirmed R/O substance abuse Problem Anxiety state (443387886) Anxiety State, other, specified: procedure related (300.09) Active confirmed Problem Displacement of cervical intervertebral disc without myelopathy (80283406) Cervical (w/out myelopathy) intervertebral disc disorder (722.0) Active confirmed Problem Lumbar spinal stenosis (89414471) Lumbar spinal stenosis (724.02) Active confirmed Problem Lumbar post-laminectomy syndrome (254559737) Postlaminectomy syndrome of lumbar region (722.83) Active confirmed Problem Solitary sacroiliitis (081711064) Sacroiliitis, not elsewhere classified (M46.1) Active confirmed Problem Low back pain (456662684) Low back pain (M54.5) Active confirmed Problem Lumbosacral spondylosis without myelopathy (35606715) Spondylosis without myelopathy or radiculopathy, lumbar region (M47.816) Active confirmed Problem High risk drug monitoring status (929692359) snf (current) use of opiate analgesic (Z79.891) Active confirmed Problem Pain of right knee region (finding) (619631585727182 ) Pain in right knee (M25.561) Active confirmed Problem Pain of left knee joint (finding) (757971025953077 ) Pain in left knee (M25.562) Active confirmed Problem Anxiety disorder (699587589) Other specified anxiety disorders (F41.8) Active confirmed Problem Sleep disorder (58620805) Other sleep disorders (G47.8) Active confirmed Problem Chronic pain (53786216) Other chronic pain (G89.29) Active confirmed Problem Essential hypertension (23345081) Essential (primary) hypertension (I10) Active confirmed Problem Shoulder joint pain (464343086) Pain in right shoulder (M25.511) Active confirmed Problem Shoulder joint pain (840488266) Pain in left shoulder (M25.512) Active confirmed Problem Spinal stenosis of lumbar region (24022128) Spinal stenosis, lumbar region (M48.06) Active confirmed Problem Cervical radiculopathy (37486378) Cervical disc disorder with radiculopathy, unspecified cervical region (M50.10) Active confirmed Problem Cervical disc disorder with radiculopathy (593664408) Cervical disc disorder with radiculopathy, mid-cervical region (M50.12) Active confirmed Problem Radiculopathy due to lumbar intervertebral disc disorder (047660725082615 ) Intervertebral disc disorders with radiculopathy, lumbar region (M51.16) Active confirmed Problem Cervicalgia (62556755) Cervicalgia (M54.2) Active confirmed Problem Pain in thoracic spine (847043626) Pain in thoracic spine (M54.6) Active confirmed Problem Myalgia (13548232) Myalgia (M79.1) Active confirmed Problem Post-laminectomy syndrome (23114394) Postlaminectomy syndrome, not elsewhere classified (M96.1) Active confirmed Problem Injury of head (53203167) Other specified injuries of head, initial encounter (S09.8XXA) Active confirmed Problem Neurogenic claudication (776152622) Spinal stenosis, lumbar region with neurogenic claudication (M48.062) Active confirmed Problem Muscle pain (71007253) Myalgia, other site (M79.18) Active confirmed Problem Pain in lumbar spine (023346630) Vertebrogenic low back pain (M54.51) Active confirmed Vital Signs Temperature 97.7 degrees Fahrenheit 01/24/2025 Blood pressure diastolic 88 mm Hg 01/24/2025 Oximetry 99 % 01/24/2025 Height 65 in 01/24/2025 Blood pressure systolic 114 mm Hg 01/24/2025 Weight 197.4 lbs 01/24/2025 BMI 32.85 kg/m2 01/24/2025 Encounters Encounter Location Date Provider Diagnosis [facility] [address] [place], [place] [id number] 04/24/2024 Dillon Howell Vertebrogenic low ba ck pain M54.51 ; Other chronic pain G89.29 ; Myalgia, other site M79.18 ; Other sleep disorders G47.8 and snf (current) use of opiate analgesic Z79.891 [facility] [address] [place], [place] [id number] 05/17/2024 Tarah Guzman Vertebrogenic low ba ck pain M54.51 ; Other chronic pain G89.29 ; Myalgia, other site M79.18 and Other sleep disorders G47.8 [facility] [address] [place], [place] [id number] 07/12/2024 Dillon Howell Vertebrogenic low ba ck pain M54.51 ; Other chronic pain G89.29 ; Myalgia, other site M79.18 ; Other sleep disorders G47.8 and superintendent container terminal (current) use of opiate analgesic Z79.891 [facility] [address] [place], [place] [id number] 09/27/2024 Dillon Howell Vertebrogenic low ba ck pain M54.51 ; Other chronic pain G89.29 ; Myalgia, other site M79.18 and Other sleep disorders G47.8 [facility] [address] [place], [place] [id number] 11/29/2024 Dillon Howell Vertebrogenic low ba ck pain M54.51 ; Other chronic pain G89.29 ; Myalgia, other site M79.18 ; Essential (primary) hypertension I10 ; Other sleep disorders G47.8 and superintendent container terminal (current) use of opiate analgesic Z79.891 [facility] [address] [place], [place] [id number] 01/24/2025 Dillon Howell Vertebrogenic low ba ck pain M54.51 ; Other chronic pain G89.29 ; Myalgia, other site M79.18 and Other sleep disorders G47.8 [facility] [address] [place], [place] [id number] 05/30/2024 Dillon Howell [facility] [address] [place], [place] [id number] 07/18/2024 Dillon Howell [facility] [address] [place] [id number] 09/06/2024 Dillon Howell Assessments Encounter Date Diagnosis (ICD Code) Assessment Notes Treatment Notes Treatment Clinical Notes Section Notes 04/24/2024 Vertebrogenic low back pain (ICD-10 - M54.51) Chronic axial lumbosacral spine pain. 05/17/2024 Vertebrogenic low back pain (ICD-10 - M54.51) Chronic axial lumbosacral spine pain. 01/24/2025 Other chronic pain (ICD-10 - G89.29) [...] relation to sleep for safety concerns. 04/24/2024 superintendent container terminal (current) use of opiate analgesic (ICD-10 - Z79.891) Patient has a total daily MED of 90. This places the [facility] in the [facility] high risk category for total daily opioid usage. Patient verbalized understanding to hold opioid and relaxant medications in the setting of low blood pressure (she takes her BP three times per day). 11/29/2024 superintendent container terminal (current) use of opiate analgesic (ICD-10 - [...] clinic is closing due to Dr. Howell's fdc; see scanned document. Terminal prescriptions were given to the patient along with tapering instructions. 05/17/2024 Other Patient reports she is scheduled for left RTC repair on 05/30/[address] Valladares at [facility]. 04/24/2024 Other Plan Of Treatment No Information Insurance Providers Payer Name Payer Address Payer Phone Subscriber Number Group Number Insured Name Patient Relationship to Insured Coverage Start Date Coverage End Date [facility] RE-CAT [address] [place] [address] [id number] Nina Garcia Self - patient is the insured Medical (General) History Medical History History ICD Code Chronic pain Low back, mid back and neck pain Lumbar spondyosis, spinal st enosis, spondylolisthesis and postlaminectomy syndrome Sacroiliitis Hip pain, right Knee pain, radiology studies completed, [facility] orthopedic evaluation by Dr. Hernandez (no treatment recommendations were given per prior patient report) Left shoulder pain Irritable bowel syndrome Thyroid issues Hypertension, to include hypertensive cr pablo episodes Diverticulitis Pulmonary embolism, left Enlarged spleen Enlarged liver Cardiac issues Coronary artery disease, [place] (mild per pr ior patient report) A-fib [...] 10/01/13 Colonoscopy, 10/31/17 Bladder suspension, performed at [facility] by Dr. Haley, 02/2018 Thyroidectomy, performed at [facility] in [place], [place], 05/2019 Colonoscopy, performed at [facility] in [place], [place], 09/2019 Right L4-5 laminectomy, performed at [facility] by Dr. Yuri Galloway, 01/01/22 Colonoscopy, 06/18/22 C4-C5 ACDFF, removal of C5-C 6 hardware, performed at [facility] by Dr. Estuardo Lopes, 12/22/22 Rotator cuff repair, left, performed at [facility] by Dr. Valladares, 05/30/24 EGD and colonoscopy, performed at [place], [place], 09/06/24 Hospitalization History Reason Date(Month/Year) Low blood pressure, treated at [facility], 12/27 01/20 Blood stool and abdominal pain, treated at [facility], 09/04/24 - 09/05/24 Low blood pressure, treated at [facility], 05/30 024 Shock / hypotension, treated at [facility], - 03/12/24 ER visit for mild heart attack and A-fi b treated at [facility], 06/2022 High blood pressure, treated at [facility], - 07/23/21 High blood pressure, treated at [facility] in [place], [place], 03/2020 Stomach problems, treated at [facility] in [place], [place], 04/05/19 ER visit for blood pressure, [...]
--- OUTSIDE RECORDS SUMMARY | 2025-04-19 12:14 | XMS_ITS | Encounter Summary ---
Author Organization [facility] Address [address] [place] [address] Care Team Providers Care Plastic Surgery Nurse Name Role Phone Non-Staff, Physician Primary Care Provider Unava ilable Encounter Details Date Type Department Care Team (Latest Contact Info) Description 05/10/2000 Outpatient Historical [facility] Oseas Guidry MD [address] [place] [address] Anal or rectal pain (Primary Dx); Blood in stool Social History Tobacco Use Types Packs/Day Years Used Date Smoking Tobacco: Never Assessed Comments Unknown Sex and Gender Information Value Date Recorded Sex Assigned at Not on file Legal Sex 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
--- OUTSIDE RECORDS SUMMARY | 2025-04-19 12:14 | XMS_ITS | Encounter Summary ---
Author Organization [facility] Address [address] [place] [address] Care Team Providers Care It Systems Analyst Consultant Name Role Phone Non-Staff, Physician Primary Care Provider Unava ilable Encounter Details Date Type Department Care Team (Latest Contact Info) Description 07/11/2000 Outpatient Historical [facility] Oseas uGidry MD [address] [place] [address] Abdominal pain, unspecified site (Primary Dx); Other malaise and fatigue Social History Tobacco Use Types Packs/Day Years Used Date Smoking Tobacco: Never Assessed Comments Unknown Sex and Gender Information Value Date Recorded Sex Assigned at Not on file Legal 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
--- OUTSIDE RECORDS SUMMARY | 2025-04-19 12:14 | XMS_ITS | Encounter Summary ---
Author Organization [facility] Address [address] [place] [address] Phone Care Team Providers Care Neck Band Operator Name Role Phone Michelle Rico TORSTEN Primary Care Provider Encounter Details Date Type Department Care Team (Late st Contact Info) Description 03/06/2021 Orders Only [facility] [address] [place] [address] Janeth Fong MA Stage 3b [...] (Blood) 4.1 g/dL [facility] eGFR Non-Afr [place] 51 [facility] eGFR 59 [facility] Blood specimen (specimen) Venous blood / Unknown 03/19/2021 10:30 AM CDT Narrative [facility] - 03/24/2021 9:21 AM CDT captain assistant lab [facility] [place] [address] [id number] Inspector Returned Materials: Poncho Cordova DO MPH CLIA: [id number] [facility] [place] [address] [facility] [place] [address] Inspector Returned Materials: Poncho Cordova DO MPH CLIA: [id number] us Dangelo Monreal MD LAB BLOOD ORDERABLES [facility] Result [facility] * CBC and differential (03/19/2021 10:30 AM CDT) Pathologist [facility] WBC 9.7 K/uL [facility] Red Blood [...] [facility] - 03/24/2021 9:24 AM CDT captain assistant lab [facility] [place] [address] [place] [email or web address] [address] Inspector Returned Materials: Poncho Cordova DO MPH CLIA: [id number] [facility] [place] [address] [place] [email or web address] [address] Inspector Returned Materials: Poncho Cordova DO MPH CLIA: [id number] us Dangelo Monreal MD LAB BLOOD ORDERABLES [...] [facility] - 03/24/2021 9:22 AM CDT captain assistant lab [facility] [place] [address] [place] [address] Inspector Returned Materials: Poncho Cordova DO MPH CLIA: [id number] [facility] [place] [address] [place] [address] Inspector Returned Materials: Poncho Cordova DO MPH CLIA: [id number] us Dangelo Monreal MD LAB URINE ORDERABLES Fi nal Result [facility] documented in this encounter Visit Diagnoses Diagnosis Stage 3b chronic kidney disease (HCC) documented in this encounter Care Teams Neck Band Operator Relationship Specialty Start Date End Date Michelle Rico FNP [address] PCP - General 09/26/19 documented as of this encounter
--- OUTSIDE RECORDS SUMMARY | 2025-04-19 12:14 | XMS_ITS | Encounter Summary ---
Author Organization [facility] Address [address] [place] [address] Care Team Providers Care Optical Glass Etcher Name Role Phone Non-Staff, Physician Primary Care Provider Unava ilable Encounter Details Date Type Department Care Team (Latest Contact Info) Description 04/20/2000 Outpatient Historical [facility] Trent Reed NO ADDRESS ON FILE Other and unspecified noninfectious gastroenteritis and colitis(558.9) (Primary Dx) Social History Tobacco Use Types Packs/Day Years Used Date Smoking Tobacco: Never Assessed Comments Unknown Sex and Gender Information Value Date Recorded Sex Assigned at Not on file Legal 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
--- OUTSIDE RECORDS SUMMARY | 2025-04-19 12:14 | XMS_ITS | Encounter Summary ---
Author Organization [facility] Address [address] [place] [address] Phone Care Team Providers Care Biogeographer Name Role Phone Michelle Rico Primary Care Provider Encounter Details Date Type Department Care Team (Late st Contact Info) Description 03/16/2021 Orders Only [facility] [address] [place] [address] Dangelo Monreal MD [address] [place] [address] Stage 3b chronic kidney disease [...] (HCC) documented in this encounter Care Teams Biogeographer Relationship Specialty Start Date End Date Michelle Rico FNP [address] PCP - General 09/26/19 documented as of this encounter
--- OUTSIDE RECORDS SUMMARY | 2025-04-19 12:14 | XMS_ITS | Encounter Summary ---
Author Organization [facility] Address [address] [place] [address] Care Team Providers Care Indigo Vat Tender Cloth Name Role Phone Non-Staff, Physician Primary Care Provider Unava ilable Encounter Details Date Type Department Care Team (Latest Contact Info) Description 06/20/2000 Outpatient Historical [facility] Oseas Gudiry MD [address] [place] [address] Pain in joint, site unspecified (Primary Dx); Nonallopathic lesion of abdomen and other sites, not elsewhere classified Social History Tobacco Use Types Packs/Day Years Used Date Smoking Tobacco: Never Assessed Comments Unknown Sex and Gender Information Value Date Recorded Sex Assigned at Not on file Legal Sex Female 3:18 AM MUSICAL ENGINEER Gender Identity Not on file Sexual Orientation Not on file documented as of this encounter Plan of Treatment Not on file documented as of this encounter Visit Diagnoses Diagnosis Pain in joint, site unspecified- Primary Nonallopathic lesion of abdomen and other sites, not elsewhere classified documented in this encounter Care Teams Indigo Vat Tender Cloth Relationship Specialty Start Date End Date Non-Staff, Physician NO ADDRESS ON FILE PCP - General 04/02/20 documented as of this encounter
--- OUTSIDE RECORDS SUMMARY | 2025-04-19 12:15 | XMS_ITS | Encounter Summary ---
Author Organization [facility] Address [address] [place] [address] Care Team Providers Care Purchasing Clerk Name Role Phone Non-Staff, Physician Primary Care Provider Unava ilable Encounter Details Date Type Department Care Team (Latest Contact Info) Description 02/21/2006 Outpatient Historical [facility] Imaging Services [address] [place] [address] Antoinette Bradley MD [address] [place] [address] Other Conditions of Brain (Primary Dx) Social History Tobacco Use Types Packs/Day Years Used Date Smoking Tobacco: Never Assessed Comments Unknown Sex and Gender Information Value Date Recorded Sex Assigned at Not on file Legal Sex Female 3:18 AM CHIEF OF INTERNAL MEDICINE Gender Identity Not on file Sexual Orientation Not on file documented as of this encounter Plan of Treatment Not on file documented as of this encounter Visit Diagnoses Diagnosis Brain conditions NEC- Primary Other conditions of brain documented in this encounter Care Teams Purchasing Clerk Relationship Specialty Start Date End Date Non-Staff, Physician NO ADDRESS ON FILE PCP - General 04/02/20 documented as of this encounter
--- OUTSIDE RECORDS SUMMARY | 2025-04-19 12:15 | XMS_ITS | Clinical Summary ---
Author Organization [facility] Address [address] [place] [address] Care Team Providers Care Subway Guard Name Role Phone Non-Staff, Physician Primary Care Provider Unava ilable Allergies Active Allergy Reactions Criticality Noted Date Comments Aspirin Other (See Comments) 04/05/2019 Was instructed not to take medication Ketorolac Unknown 04/28/2011 Meloxicam Unknown 04/28/2011 Nsaids (Non-Steroidal Anti-Inflammatory Drug) Other (See Comments) 04/05/2019 Cant take because of [place] Medications lamoTRIgine (LaMICtal) 200 mg tablet Take [...] daily. A ctive naloxone (NARCAN) 4 mg/spray [place], Non-Aerosol as directed 0 Active ondansetron (ZOFRAN [...] on file Legal Sex Female 1:20 PM CURING MACHINE OPERATOR Gender Identity Not on file Sexual [...] 2025 06/04/2019 Medical Devices Implanted Type Area Admissions Supervisor Device Identifier Shelf Expiration Date Model / Serial / Lot Hemostatic Surgifoam [id number] 1971 - [id number] Implanted:05/29 by Quinten Medeiros MD (Quantity not on file) Hemostatic N/A: Neck [employer]- [employer] 03/29/20231971 [id number] Procedures Procedure Name Priority Date/Time Associated Diagnosis Comments COLONOSCOPY REPORT 10/26/2019 11 :43 AM CURING MACHINE OPERATOR from Last 3 Months or Most Recently Relevant to Health Maintenance Results * COLONOSCOPY REPORT (10/26/2019 11:43 AM CURING MACHINE OPERATOR) Narrative Procedure Note Kurt Howard DO - 10/26/2019 11:43 AM CST Procedures signed by Kurt Howard DO at 10/26/2019 11:43 AM Author: Kurt Howard DO Service: -- Author Type: Physician Filed: 10/26/2019 11:43 AM Date of Service: 10/26/2019 11:43 AM Status:Signed Kennel Helper: Kurt Howard DO (Physician) Procedure Orders 1. COLONOSCOPY REPORT [[id number]] ordered by Kurt Howard DOat 10/26/[address] [place] [address] Patient Name: Nina Garcia Procedure Date: 10/26/2019 [...] Scope Out: 11:40:06 AM [address] [place], [place] Kurt Howard DO GI PROCEDURE ORDERABLES Edited Result - Final from Last 3 Months or Most Recently Relevant to Health Maintenance Insurance [facility] OPTIONS PPO [id number] Care Teams Subway Guard Relationship Specialty Start Date End Date Non-Staff, Physician NO ADDRESS ON FILE PCP - General 04/02/20
--- OUTSIDE RECORDS SUMMARY | 2025-04-19 12:15 | XMS_ITS | Encounter Summary ---
Author Organization [facility] Address [address] [place] [address] Care Team Providers Care Tumble Tailstock Turret Lathe Operator Name Role Phone Non-Staff, Physician Primary Care Provider Unava ilable Encounter Details Date Type Department Care Team (Latest Contact Info) Description 01/19/2006 Outpatient Historical [facility] Gastroenterology- [place] [address] [facility] [address] [place] [address] Quinten Aviles MD [facility] [address] [facility] [address] [place] [address] Anal Fissure (Primary Dx); Irritable Bowel Syndrome Social History Tobacco Use Types Packs/Day Years Used Date Smoking Tobacco: Never Assessed Comments Unknown Sex and Gender Information Value Date Recorded Sex Assigned at Not on file Legal Sex Female 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
--- OUTSIDE RECORDS SUMMARY | 2025-04-19 12:15 | XMS_ITS | Encounter Summary ---
Author Organization [facility] Address [address] [place] [address] Care Team Providers Care Jewelry Maker Name Role Phone Non-Staff, Physician Primary Care Provider Unava ilable Encounter Details Date Type Department Care Team (Latest Contact Info) Description 06/03/2003 Outpatient Historical [facility] SoteroShaheen MD [address] [address] SURGERY FOLLOWUP, UNSPEC (Primary Dx) Social History Tobacco Use Types Packs/Day Years Used Date Smoking Tobacco: Never Assessed Comments Unknown Sex and Gender Information Value Date Recorded Sex Assigned at Not on file Legal Sex Female 3:18 AM TEST DEVELOPER Gender Identity Not on file Sexual Orientation Not on file documented as of this encounter Plan of Treatment Not on file documented as of this encounter Visit Diagnoses Diagnosis Follow-up examination, following unspecified surgery- Primary documented in this encounter Care Teams Jewelry Maker Relationship Specialty Start Date End Date Non-Staff, Physician NO ADDRESS ON FILE PCP - General 04/02/20 documented as of this encounter
--- OUTSIDE RECORDS SUMMARY | 2025-04-19 12:15 | XMS_ITS | Encounter Summary ---
Author Organization [facility] Address [address] [place] [address] Care Team Providers Care On Site Coordinator Name Role Phone Non-Staff, Physician Primary Care Provider Unava ilable Encounter Details Date Type Department Care Team (Latest Contact Info) Description 05/27/2003 Outpatient Historical [facility] SoteroShaheen MD [address] [address] SURGERY FOLLOWUP, UNSPEC (Primary Dx) Social History Tobacco Use Types Packs/Day Years Used Date Smoking Tobacco: Never Assessed Comments Unknown Sex and Gender Information Value Date Recorded Sex Assigned at Not on file Legal Sex Female 3:18 AM MRI SPECIAL PROCEDURES TECHNOLOGIST Gender Identity Not on file Sexual Orientation Not on file documented as of this encounter Plan of Treatment Not on file documented as of this encounter Visit Diagnoses Diagnosis Follow-up examination, following unspecified surgery- Primary documented in this encounter Care Teams On Site Coordinator Relationship Specialty Start Date End Date Non-Staff, Physician NO ADDRESS ON FILE PCP - General 04/02/20 documented as of this encounter
--- OUTSIDE RECORDS SUMMARY | 2025-04-19 12:15 | XMS_ITS | Encounter Summary ---
Author Organization [facility] Address [address] [place] [address] Care Team Providers Care Academic Registrar Name Role Phone Non-Staff, Physician Primary Care Provider Unava ilable Encounter Details Date Type Department Care Team (Late st Contact Info) Description 10/03/2002 Outpatient Historical [facility] OBGYN-[place] [address] [place] [address] Sekou Ma MD [address] [facility] [address] [place], [place] [address] Social History Tobacco Use Types Packs/Day Years Used Date Smoking Tobacco: Never Assessed Comments Unknown Sex and Gender Information Value Date Recorded Sex Assigned at Not on file Legal Sex Female 3:18 AM PLANNER INTERNSHIP Gender Identity Not on file Sexual Orientation Not on file documented as of this encounter Plan of Treatment Not on file documented as of this encounter Visit Diagnoses Not on filedocumented in this encounter Care Teams Academic Registrar Relationship Specialty Start Date End Date Non-Staff, Physician NO ADDRESS ON FILE PCP - General 04/02/20 documented as of this encounter
--- OUTSIDE RECORDS SUMMARY | 2025-04-19 12:15 | XMS_ITS | Encounter Summary ---
Author Organization [facility] Address [address] [facility] [place] [address] Care Team Providers Care Stacker Operator Name Role Phone Non-Staff, Physician Primary Care Provider Unava ilable Encounter Details Date Type Department Care Team (Late st Contact Info) Description 02/21/2006 Outpatient Historical [facility] [place] [address] Social History Tobacco Use Types Packs/Day Years Used Date Smoking Tobacco: Never Assessed Comments Unknown Sex and Gender Information Value Date Recorded Sex Assigned at Not on file Legal Sex Female 3:18 AM PHOTORESIST PRINTER Gender Identity Not on file Sexual Orientation Not on file documented as of this encounter Plan of Treatment Not on file documented as of this encounter Visit Diagnoses Not on filedocumented in this encounter Care Teams Stacker Operator Relationship Specialty Start Date End Date Non-Staff, Physician NO ADDRESS ON FILE PCP - General 04/02/20 documented as of this encounter
--- OUTSIDE RECORDS SUMMARY | 2025-04-19 12:15 | XMS_ITS | Encounter Summary ---
Author Organization [facility] Address [address] [place] [address] Care Team Providers Care Cloth Laminating Supervisor Name Role Phone Non-Staff, Physician Primary Care Provider Unava ilable Encounter Details Date Type Department Care Team (Latest Contact Info) Description 08/31/2000 Outpatient Historical [facility] Shaheen Bey MD [address] [facility] [address] [place] [address] Constipation (Primary Dx); Abdominal pain, right upper quadrant; Abdominal pain, left lower quadrant Social History Tobacco Use Types Packs/Day Years Used Date Smoking Tobacco: Never Assessed Comments Unknown Sex and Gender Information Value Date Recorded Sex Assigned at Not on file Legal Sex Female 3:18 AM MONUMENT MASON Gender Identity Not on file Sexual Orientation Not on file documented as of this encounter Plan of Treatment Not on file documented as of this encounter Visit Diagnoses Diagnosis Constipation- Primary Abdominal pain, right upper quadrant Abdominal pain, left lower quadrant documented in this encounter Care Teams Cloth Laminating Supervisor Relationship Specialty Start Date End Date Non-Staff, Physician NO ADDRESS ON FILE PCP - General 04/02/20 documented as of this encounter
--- OUTSIDE RECORDS SUMMARY | 2025-04-19 12:15 | XMS_ITS | Encounter Summary ---
Author Organization [facility] Address [address] [place] [address] Care Team Providers Care Interventional Neuroradiologist Name Role Phone Non-Staff, Physician Primary Care Provider Unava ilable Encounter Details Date Type Department Care Team (Latest Contact Info) Description 03/09/2006 Outpatient Historical [facility] Endoscopy [address] [place] [address] Quinten Aviles MD [address] [place] [address] [address] [place] [address] Anal or Rectal Pain (Primary Dx) Social History Tobacco Use Types Packs/Day Years Used Date Smoking Tobacco: Never Assessed Comments Unknown Sex and Gender Information Value Date Recorded Sex Assigned at Not on file Legal Sex Female 3:18 AM AIRPLANE TESTER Gender Identity Not on file Sexual Orientation Not on file documented as of this encounter Plan of Treatment Not on file documented as of this encounter Visit Diagnoses Diagnosis Anal or rectal pain- Primary documented in this encounter Care Teams Interventional Neuroradiologist Relationship Specialty Start Date End Date Non-Staff, Physician NO ADDRESS ON FILE PCP - General 04/02/20 documented as of this encounter
--- OUTSIDE RECORDS SUMMARY | 2025-04-19 12:15 | XMS_ITS | Encounter Summary ---
Author Organization [facility] Address [address] [place] [address] Care Team Providers Care Diesel Technician Name Role Phone Non-Staff, Physician Primary Care Provider Unava ilable Encounter Details Date Type Department Care Team (Latest Contact Info) Description 07/19/2002 Outpatient Historical [facility] Oseas Guidry MD [address] [place] [address] IRRITABLE COLON (Primary Dx) Social History Tobacco Use Types Packs/Day Years Used Date Smoking Tobacco: Never Assessed Comments Unknown Sex and Gender Information Value Date Recorded Sex Assigned at Not on file Legal Sex Female 3:18 AM TOLL TESTBOARD WORKER Gender Identity Not on file Sexual Orientation Not on file documented as of this encounter Plan of Treatment Not on file documented as of this encounter Visit Diagnoses Diagnosis Irritable bowel syndrome- Primary documented in this encounter Care Teams Diesel Technician Relationship Specialty Start Date End Date Non-Staff, Physician NO ADDRESS ON FILE PCP - General 04/02/20 documented as of this encounter
--- OUTSIDE RECORDS SUMMARY | 2025-04-19 12:15 | XMS_ITS | Encounter Summary ---
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 of Intractable Epilepsy (CMS/HCC) (Primary Dx); Syncope and Collapse Social History Tobacco Use Types Packs/Day Years Used Date Smoking Tobacco: Never Assessed Comments Unknown Sex and Gender Information Value Date Recorded Sex Assigned at Not on file Legal Sex Female 3:18 AM MORTGAGE SERVICING SPECIALIST Gender Identity Not on file Sexual Orientation Not on file documented as of this encounter Plan of Treatment Not on file documented as of this encounter Visit Diagnoses Diagnosis Unspecified epilepsy without mention of intractable epilepsy (CMS/HCC)- Primary Unspecified epilepsy without mention of intractable epilepsy Syncope and collapse documented in this encounter Care Teams Saw Feeder Relationship Specialty Start Date End Date Non-Staff, Physician NO ADDRESS ON FILE PCP - General 04/02/20 documented as of this encounter
--- OUTSIDE RECORDS SUMMARY | 2025-04-19 12:15 | XMS_ITS | Encounter Summary ---
Author Organization [facility] Address [address] [facility] Attn: [place] [address] Care Team Providers Care Can Stacker Name Role Phone Non-Staff, Physician Primary Care Provider Unava ilable Encounter Details Date Type Department Care Team (Late st Contact Info) Description 04/25/2001 Inpatient Historical Sekou Ma MD [address] [address] Social History Tobacco Use Types Packs/Day Years Used Date Smoking Tobacco: Never Assessed Comments Unknown Sex and Gender Information Value Date Recorded Sex Assigned at Not on file Legal Sex Female 3:18 AM PHOSPHORIC ACID OPERATOR Gender Identity Not on file Sexual Orientation Not on file documented as of this encounter Plan of Treatment Not on file documented as of this encounter Visit Diagnoses Not on filedocumented in this encounter Care Teams Can Stacker Relationship Specialty Start Date End Date Non-Staff, Physician NO ADDRESS ON FILE PCP - General 04/02/20 documented as of this encounter
--- OUTSIDE RECORDS SUMMARY | 2025-04-19 12:15 | XMS_ITS | Encounter Summary ---
Author Organization [facility] Address [address] [place] [address] Care Team Providers Care Marker Shipments Name Role Phone Non-Staff, Physician Primary Care Provider Unava ilable Encounter Details Date Type Department Care Team (Late st Contact Info) Description 04/25/2001 Outpatient Historical [facility] OBGYN-[address] [place] [place] [address] [place] [address] Sekou Ma MD [address] [facility] [address] [place], [place] [address] Metrorrhagia (Primary Dx); Dysmenorrhea; Unspecified symptom associated with female genital organs Social History Tobacco Use Types Packs/Day Years Used Date Smoking Tobacco: Never Assessed Comments Unknown Sex and Gender Information Value Date Recorded Sex Assigned at Not on file Legal Sex Female 3:18 AM REGIONAL DIRECTOR OF ADMISSIONS Gender Identity Not on file Sexual Orientation Not on file documented as of this encounter Plan of Treatment Not on file documented as of this encounter Visit Diagnoses Diagnosis Metrorrhagia- Primary Dysmenorrhea Unspecified symptom associated with female genital organs documented in this encounter Care Teams Marker Shipments Relationship Specialty Start Date End Date Non-Staff, Physician NO ADDRESS ON FILE PCP - General 04/02/20 documented as of this encounter
--- OUTSIDE RECORDS SUMMARY | 2025-04-19 12:15 | XMS_ITS | Encounter Summary ---
Author Organization [facility] Address [address] [place] [address] Care Team Providers Care Ticketing Clerk Name Role Phone Non-Staff, Physician Primary Care Provider Unava ilable Encounter Details Date Type Department Care Team (Latest Contact Info) Description 01/05/2001 Outpatient Historical [facility] Oseas Guidry MD [address] [place] [address] Urinary tract infection, site not specified (Primary Dx); Other and unspecified noninfectious gastroenteritis and colitis(558.9) Social History Tobacco Use Types Packs/Day Years Used Date Smoking Tobacco: Never Assessed Comments Unknown Sex and Gender Information Value Date Recorded Sex Assigned at Not on file Legal Sex Female 3:18 AM MOTOR HOME 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
--- OUTSIDE RECORDS SUMMARY | 2025-04-19 12:15 | XMS_ITS | Encounter Summary ---
Author Organization [facility] Address [address] [place] [address] Care Team Providers Care Children Teacher Name Role Phone Non-Staff, Physician Primary Care Provider Unava ilable Encounter Details Date Type Department Care Team (Latest Contact Info) Description 12/22/2000 Outpatient Historical [facility] Oseas Guidry MD [address] [place] [address] Abdominal pain, unspecified site (Primary Dx); Nonallopathic lesion of abdomen and other sites, not elsewhere classified Social History Tobacco Use Types Packs/Day Years Used Date Smoking Tobacco: Never Assessed Comments Unknown Sex and Gender Information Value Date Recorded Sex Assigned at Not on file Legal Sex Female 3:18 AM PESTICIDE CONTROL INSPECTOR Gender Identity Not on file Sexual Orientation Not on file documented as of this encounter Plan of Treatment Not on file documented as of this encounter Visit Diagnoses Diagnosis Abdominal pain, unspecified site- Primary Nonallopathic lesion of abdomen and other sites, not elsewhere classified documented in this encounter Care Teams Children Teacher Relationship Specialty Start Date End Date Non-Staff, Physician NO ADDRESS ON FILE PCP - General 04/02/20 documented as of this encounter
--- OUTSIDE RECORDS SUMMARY | 2025-04-19 12:15 | XMS_ITS | Encounter Summary ---
Author Organization [facility] Address [address] [place] [address] Care Team Providers Care Bacteriologist Pharmaceutical Name Role Phone Non-Staff, Physician Primary Care Provider Unava ilable Encounter Details Date Type Department Care Team (Latest Contact Info) Description 03/09/2006 Outpatient Historical [facility] Gastroenterology- [place] [address] [facility] [address] [place] [address] Quinten Aviles MD [facility] [address] [facility] [address] [place] [address] Anal or Rectal Pain (Primary Dx); Other Specified Disorder of Rectum and Anus Social History Tobacco Use Types Packs/Day Years Used Date Smoking Tobacco: Never Assessed Comments Unknown Sex and Gender Information Value Date Recorded Sex Assigned at Not on file Legal Sex Female 3:18 AM MAINTENANCE MACHINE REPAIRER Gender Identity Not on file Sexual Orientation Not on file documented as of this encounter Plan of Treatment Not on file documented as of this encounter Visit Diagnoses Diagnosis Anal or rectal pain- Primary Other specified disorder of rectum and anus documented in this encounter Care Teams Bacteriologist Pharmaceutical Relationship Specialty Start Date End Date Non-Staff, Physician NO ADDRESS ON FILE PCP - General 04/02/20 documented as of this encounter
--- OUTSIDE RECORDS SUMMARY | 2025-04-19 12:15 | XMS_ITS | Encounter Summary ---
Author Organization [facility] Address [address] [place] [address] Care Team Providers Care Portable Grinding Machine Operator Name Role Phone Non-Staff, Physician Primary Care Provider Unava ilable Encounter Details Date Type Department Care Team (Latest Contact Info) Description 04/29/1998 Outpatient Historical [facility] Maternal and Medicine[facility] [address] [place] [address] August Walker MD NO ADDRESS [...] on file Legal Sex Female 3:18 AM UROLOGIST MD Gender Identity Not on file Sexual Orientation Not on file documented as of this encounter Plan of Treatment Not on file documented as of this encounter Visit Diagnoses Diagnosis Other screening- Primary Other specified screening Other known or suspected abnormality, not elsewhere classified, affecting management of mother, antepartum condition or complication Lymphangioma, any site documented in this encounter Care Teams Portable Grinding Machine Operator Relationship Specialty Start Date End Date Non-Staff, Physician NO ADDRESS ON FILE PCP - General 04/02/20 documented as of this encounter
--- OUTSIDE RECORDS SUMMARY | 2025-04-19 12:15 | XMS_ITS | Encounter Summary ---
Author Organization [facility] Address [address] [place] [address] Care Team Providers Care Ticket Agent Name Role Phone Non-Staff, Physician Primary Care Provider Unava ilable Encounter Details Date Type Department Care Team (Late st Contact Info) Description 04/17/2001 Outpatient Historical [facility] Sekou Ma MD [address] [address] Other specified pre-operative examination (Primary Dx); Abdominal pain, generalized; Dysmenorrhea Social History Tobacco Use Types Packs/Day Years Used Date Smoking Tobacco: Never Assessed Comments Unknown Sex and Gender Information Value Date Recorded Sex Assigned at Not on file Legal Sex Female 3:18 AM SODA CLERK Gender Identity Not on file Sexual Orientation Not on file documented as of this encounter Plan of Treatment Not on file documented as of this encounter Visit Diagnoses Diagnosis Other specified pre-operative examination- Primary Abdominal pain, generalized Dysmenorrhea documented in this encounter Care Teams Ticket Agent Relationship Specialty Start Date End Date Non-Staff, Physician NO ADDRESS ON FILE PCP - General 04/02/20 documented as of this encounter
--- OUTSIDE RECORDS SUMMARY | 2025-04-19 12:15 | XMS_ITS | Encounter Summary ---
Author Organization [facility] Address [address] [place] [address] Care Team Providers Care Mobile Equipment Mechanic Name Role Phone Non-Staff, Physician Primary Care Provider Unava ilable Encounter Details Date Type Department Care Team (Latest Contact Info) Description 02/28/2001 Outpatient Historical [facility] Oseas Guidry MD [address] [place] [address] Unspecified inflammatory disease of female pelvic organs and tissues (Primary Dx) Social History Tobacco Use Types Packs/Day Years Used Date Smoking Tobacco: Never Assessed Comments Unknown Sex and Gender Information Value Date Recorded Sex Assigned at Not on file Legal Sex Female 3:18 AM COLLAR STITCHER Gender Identity Not on file Sexual Orientation Not on file documented as of this encounter Plan of Treatment Not on file documented as of this encounter Visit Diagnoses Diagnosis Unspecified inflammatory disease of female pelvic organs and tissues- Primary documented in this encounter Care Teams Mobile Equipment Mechanic Relationship Specialty Start Date End Date Non-Staff, Physician NO ADDRESS ON FILE PCP - General 04/02/20 documented as of this encounter
--- OUTSIDE RECORDS SUMMARY | 2025-04-19 12:15 | XMS_ITS | Encounter Summary ---
Author Organization [facility] Address [address] [place] [address] Care Team Providers Care Harbor Patrol Police Name Role Phone Non-Staff, Physician Primary Care Provider Unava ilable Encounter Details Date Type Department Care Team (Late st Contact Info) Description 04/03/2001 Outpatient Historical [facility] OBGYN-[facility]ong [place] [address] [place] [phone] Sekou Ma MD [address] [facility] [address] [place], [place] [address] Unspecified inflammatory disease of uterus (Primary Dx); Irregular menstruation; Unspecified symptom associated with female genital organs Social History Tobacco Use Types Packs/Day Years Used Date Smoking Tobacco: Never Assessed Comments Unknown Sex and Gender Information Value Date Recorded Sex Assigned at Not on file Legal Sex Female 3:18 AM MICROBIOLOGICAL LABORATORY TECHNICIAN Gender Identity Not on file Sexual Orientation Not on file documented as of this encounter Plan of Treatment Not on file documented as of this encounter Visit Diagnoses Diagnosis Unspecified inflammatory disease of uterus- Primary Irregular menstruation Irregular menstrual cycle Unspecified symptom associated with female genital organs documented in this encounter Care Teams [employer] Police Relationship Specialty Start Date End Date Non-Staff, Physician NO ADDRESS ON FILE PCP - General 04/02/20 documented as of this encounter
--- OUTSIDE RECORDS SUMMARY | 2025-04-19 12:15 | XMS_ITS | Encounter Summary ---
Author Organization [facility] Address [address] [place] [address] Care Team Providers Care Porcelain Finisher Name Role Phone Non-Staff, Physician Primary Care Provider Unava ilable Encounter Details Date Type Department Care Team (Latest Contact Info) Description 02/21/2006 Outpatient Historical [facility] [address] [facility], [address] [place] [address] Antoinette Bradley MD [address] [place] [address] Syncope and Collapse (Primary Dx) Social History Tobacco Use Types Packs/Day Years Used Date Smoking Tobacco: Never Assessed Comments Unknown Sex and Gender Information Value Date Recorded Sex Assigned at Not on file Legal Sex Female 3:18 AM MODEL AND MOLD MAKER PLASTER Gender Identity Not on file Sexual Orientation Not on file documented as of this encounter Plan of Treatment Not on file documented as of this encounter Visit Diagnoses Diagnosis Syncope and collapse- Primary documented in this encounter Care Teams Porcelain Finisher Relationship Specialty Start Date End Date Non-Staff, Physician NO ADDRESS ON FILE PCP - General 04/02/20 documented as of this encounter
--- OUTSIDE RECORDS SUMMARY | 2025-04-19 12:15 | XMS_ITS | Encounter Summary ---
Author Organization [facility] Address [address] [place] [address] Care Team Providers Care Unloading Checker Name Role Phone Non-Staff, Physician Primary Care Provider Unava ilable Encounter Details Date Type Department Care Team (Late st Contact Info) Description 03/22/2006 Outpatient Historical [facility] Quinten Aviles MD [address] [place] [address] [address] [place] [phone] Social History Tobacco Use Types Packs/Day Years Used Date Smoking Tobacco: Never Assessed Comments Unknown Sex and Gender Information Value Date Recorded Sex Assigned at Not on file Legal Sex Female 3:18 AM ILLUSIONIST Gender Identity Not on file Sexual Orientation Not on file documented as of this encounter Plan of Treatment Not on file documented as of this encounter Visit Diagnoses Not on filedocumented in this encounter Care Teams Unloading Checker Relationship Specialty Start Date End Date Non-Staff, Physician NO ADDRESS ON FILE PCP - General 04/02/20 documented as of this encounter
--- OUTSIDE RECORDS SUMMARY | 2025-04-19 12:15 | XMS_ITS | Encounter Summary ---
Author Organization [facility] Address [address] [place] [address] Care Team Providers Care Filter Tank Operator Name Role Phone Non-Staff, Physician Primary Care Provider Unava ilable Encounter Details Date Type Department Care Team (Late st Contact Info) Description 02/21/2006 Outpatient Historical [facility] Social History Tobacco Use Types Packs/Day Years Used Date Smoking Tobacco: Never Assessed Comments Unknown Sex and Gender Information Value Date Recorded Sex Assigned at Not on file Legal Sex Female 3:18 AM PULLER OUT Gender Identity Not on file Sexual Orientation Not on file documented as of this encounter Plan of Treatment Not on file documented as of this encounter Visit Diagnoses Not on filedocumented in this encounter Care Teams Filter Tank Operator Relationship Specialty Start Date End Date Non-Staff, Physician NO ADDRESS ON FILE PCP - General 04/02/20 documented as of this encounter
--- OUTSIDE RECORDS SUMMARY | 2025-04-19 12:15 | XMS_ITS | Encounter Summary ---
Author Organization [facility] Address [address] [place] [address] Care Team Providers Care Pocket Assembler Name Role Phone Non-Staff, Physician Primary Care Provider Unava ilable Encounter Details Date Type Department Care Team (Late st Contact Info) Description 03/28/2006 Outpatient Historical [facility] Quinten Aviles MD [address] [place] [address] [address] [place] [phone] Social History Tobacco Use Types Packs/Day Years Used Date Smoking Tobacco: Never Assessed Comments Unknown Sex and Gender Information Value Date Recorded Sex Assigned at Not on file Legal Sex Female 3:18 AM PHYSICAL THERAPY COORDINATOR Gender Identity Not on file Sexual Orientation Not on file documented as of this encounter Plan of Treatment Not on file documented as of this encounter Visit Diagnoses Not on filedocumented in this encounter Care Teams Pocket Assembler Relationship Specialty Start Date End Date Non-Staff, Physician NO ADDRESS ON FILE PCP - General 04/02/20 documented as of this encounter
--- OUTSIDE RECORDS SUMMARY | 2025-04-19 12:15 | XMS_ITS | Encounter Summary ---
Author Organization [facility] Address [address] [place] [address] Care Team Providers Care Production Control Supervisor Name Role Phone Non-Staff, Physician Primary Care Provider Unava ilable Encounter Details Date Type Department Care Team (Late st Contact Info) Description 04/17/2001 Outpatient Historical [facility] OBGYN-[facility] [place] [address] [place] [phone] Sekou Ma MD [address] [facility] [address] [place], [place] [phone] Other specified pre-operative examination (Primary Dx); Unspecified symptom associated with female genital organs Social History Tobacco Use Types Packs/Day Years Used Date Smoking Tobacco: Never Assessed Comments Unknown Sex and Gender Information Value Date Recorded Sex Assigned at Not on file Legal Sex Female 3:18 AM SCRAPER HAND Gender Identity Not on file Sexual Orientation Not on file documented as of this encounter Plan of Treatment Not on file documented as of this encounter Visit Diagnoses Diagnosis Other specified pre-operative examination- Primary Unspecified symptom associated with female genital organs documented in this encounter Care Teams Production Control Supervisor Relationship Specialty Start Date End Date Non-Staff, Physician NO ADDRESS ON FILE PCP - General 04/02/20 documented as of this encounter
--- OUTSIDE RECORDS SUMMARY | 2025-04-19 12:15 | XMS_ITS | Encounter Summary ---
Author Organization [email or web address] Address [address] [place] [address] Phone Care Team Providers Care Machine Stone Polisher Name Role Phone Michelle Rico Primary Care Provider [phone] Encounter Details Date Type Department Care Team (Late st Contact Info) Description 05/24/2019 Orders Only [email or web address] [address] [place] [address] Chronic kidney disease, stage 3 [...] Hypertension documented in this encounter Care Teams Machine Stone Polisher Relationship Specialty Start Date End Date Michelle Rico FNP [address] [place] PCP - General 09/26/19 documented as of this encounter
--- OUTSIDE RECORDS SUMMARY | 2025-04-19 12:15 | XMS_ITS | Encounter Summary ---
Author Organization [facility] Address [address] [place] [address] Care Team Providers Care Errand Runner Name Role Phone Non-Staff, Physician Primary Care Provider Unava ilable Encounter Details Date Type Department Care Team (Late st Contact Info) Description 10/10/2002 Outpatient Historical [facility] Services-[facility] [place] [address] [place] [phone] Sekou Ma MD [address] [facility] [address] [place], [place] [address] ADMINISTRTVE ENCOUNT NOS (Primary Dx) Social History Tobacco Use Types Packs/Day Years Used Date Smoking Tobacco: Never Assessed Comments Unknown Sex and Gender Information Value Date Recorded Sex Assigned at Not on file Legal Sex Female 3:18 AM HOOP MACHINE OPERATOR Gender Identity Not on file Sexual Orientation Not on file documented as of this encounter Plan of Treatment Not on file documented as of this encounter Visit Diagnoses Diagnosis Encounters for unspecified administrative purpose- Primary documented in this encounter Care Teams Errand Runner Relationship Specialty Start Date End Date Non-Staff, Physician NO ADDRESS ON FILE PCP - General 04/02/20 documented as of this encounter
--- OUTSIDE RECORDS SUMMARY | 2025-04-19 12:15 | XMS_ITS | Clinical Summary ---
Author Organization [facility] Address [address] [place] [address] Care Team Providers Care Size Worker Name Role Phone Michelle Rico [facility] Primary Care Provider Allergies Active Allergy Reactions Criticality Noted Date Comments Aspirin 04/05/2019 Other reaction(s): Other (See Comments) Was instructed not to take medication Ketorolac 04/28/2011 Other reaction(s): Unknown Meloxicam 04/28/2011 Other reaction(s): Unknown Nsaids 04/05/2019 Other reaction(s): Other (See Comments) Cant take because of [place] Medications * This document contains information received [...] Comments Blood Pressure 100/60 10/06/2021 10:44 AM DIVIDING MACHINE OPERATOR HELPER Pulse 66 10/06/2021 10:44 AM DIVIDING MACHINE OPERATOR HELPER Temperature 36.8 C (98.3 F) 12/15/2020 3:15 PM CDT Respiratory Rate - - Oxygen Saturation - - Inhaled Oxygen Concentration - - Weight 104 kg (229 lb 12.8 oz) 10/06/2021 10:44 AM DIVIDING MACHINE OPERATOR HELPER Height 165.1 cm (5' 5 ) 10/06/2021 10:44 AM DIVIDING MACHINE OPERATOR HELPER Body Mass Index 38.24 10/06/2021 10:44 AM DIVIDING MACHINE OPERATOR HELPER Plan of Treatment Health Maintenance Due Date Last Done Comments Hepatitis B Vaccine (1 of 3 - 19+ 3-dose series) 02/09 Pneumococcal Vaccine: Peds ( 0 to 5 Years) and At-Risk Patients (6 to 49 Years) (1 of 2 - PCV) 1997 Influenza Vaccine (#1) 2025 06/04/2019 Insurance [facility] Care Teams Size Worker Relationship Specialty Start Date End Date Michelle Rico FNP [address] [place] [place] PCP - General 09/26/19
--- OUTSIDE RECORDS SUMMARY | 2025-04-19 12:15 | XMS_ITS | Encounter Summary ---
Author Organization [facility] Address [address] [place] [address] Care Team Providers Care Objective C Developer Name Role Phone Non-Staff, Physician Primary Care Provider Unava ilable Encounter Details Date Type Department Care Team (Late st Contact Info) Description 04/03/2001 Outpatient Historical [facility] Sekou Ma MD [address] [address] Excessive menstruation (Primary Dx) Social History Tobacco Use Types Packs/Day Years Used Date Smoking Tobacco: Never Assessed Comments Unknown Sex and Gender Information Value Date Recorded Sex Assigned at Not on file Legal Sex Female 3:18 AM MARKETING DEVELOPMENT MANAGER Gender Identity Not on file Sexual Orientation Not on file documented as of this encounter Plan of Treatment Not on file documented as of this encounter Visit Diagnoses Diagnosis Excessive menstruation- Primary Excessive or frequent menstruation documented in this encounter Care Teams Objective C Developer Relationship Specialty Start Date End Date Non-Staff, Physician NO ADDRESS ON FILE PCP - General 04/02/20 documented as of this encounter
--- OUTSIDE RECORDS SUMMARY | 2025-04-19 12:15 | XMS_ITS | Encounter Summary ---
Author Organization [facility] Address [address] [place] [address] Care Team Providers Care Grind Operator Name Role Phone Non-Staff, Physician Primary Care Provider Unava ilable Encounter Details Date Type Department Care Team (Late st Contact Info) Description 03/20/2001 Outpatient Historical [facility] OBGYN-[facility] [place] [address] [place] [phone] Sekou Ma MD [address] [facility] [address] [place], [place] [phone] Irregular menstruation (Primary Dx); Dyspareunia; Unspecified symptom associated with female genital organs Social History Tobacco Use Types Packs/Day Years Used Date Smoking Tobacco: Never Assessed Comments Unknown Sex and Gender Information Value Date Recorded Sex Assigned at Not on file Legal Sex Female 3:18 AM ICT SUPPORT TECHNICIANS Gender Identity Not on file Sexual Orientation Not on file documented as of this encounter Plan of Treatment Not on file documented as of this encounter Visit Diagnoses Diagnosis Irregular menstruation- Primary Irregular menstrual cycle Dyspareunia Unspecified symptom associated with female genital organs documented in this encounter Care Teams Grind Operator Relationship Specialty Start Date End Date Non-Staff, Physician NO ADDRESS ON FILE PCP - General 04/02/20 documented as of this encounter
--- OUTSIDE RECORDS SUMMARY | 2025-04-19 12:15 | XMS_ITS | Encounter Summary ---
Author Organization [facility] Address [address] [place] [address] Care Team Providers Care Supervisor Parachute Manufacturing Name Role Phone Non-Staff, Physician Primary Care Provider Unava ilable Encounter Details Date Type Department Care Team (Latest Contact Info) Description 02/23/2006 Outpatient Historical [facility] [place] [address] [facility] [address] [place] [address] Quinten Aviles MD [facility] [address] [place] [address] Anal Fistula (Primary Dx); Anal or Rectal Pain Social History Tobacco Use Types Packs/Day Years Used Date Smoking Tobacco: Never Assessed Comments Unknown Sex and Gender Information Value Date Recorded Sex Assigned at Not on file Legal Sex Female 3:18 AM FARM EQUIPMENT ENGINE 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
--- OUTSIDE RECORDS SUMMARY | 2025-04-19 12:15 | XMS_ITS | Encounter Summary ---
Author Organization [facility] Address [address] [place] [address] Care Team Providers Care Gear Tooth Grinding Machine Operator Name Role Phone Non-Staff, Physician Primary Care Provider Unava ilable Encounter Details Date Type Department Care Team (Latest Contact Info) Description 02/08/2001 Outpatient Historical [facility] Trent Reed NO ADDRESS ON FILE Headache(784.0) (Primary Dx) Social History Tobacco Use Types Packs/Day Years Used Date Smoking Tobacco: Never Assessed Comments Unknown Sex and Gender Information Value Date Recorded Sex Assigned at Not on file Legal Sex Female 3:18 AM HEALTH CAREERS INSTRUCTOR Gender Identity Not on file Sexual Orientation Not on file documented as of this encounter Plan of Treatment Not on file documented as of this encounter Visit Diagnoses Diagnosis Headache(784.0)- Primary Headache documented in this encounter Care Teams Gear Tooth Grinding Machine Operator Relationship Specialty Start Date End Date Non-Staff, Physician NO ADDRESS ON FILE PCP - General 04/02/20 documented as of this encounter
--- OUTSIDE RECORDS SUMMARY | 2025-04-19 12:15 | XMS_ITS | Encounter Summary ---
Author Organization [facility] Address [address] [place] [address] Care Team Providers Care Night Filler Name Role Phone Non-Staff, Physician Primary Care Provider Unava ilable Encounter Details Date Type Department Care Team (Late st Contact Info) Description 06/11/2015 Ancillary Orders [facility] Nuclear Medicine [address] 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) Social History Tobacco Use Types Packs/Day Years Used Date Smoking Tobacco: Never Alcohol Use Standard Drinks/Week Comments No 0 (1 standard drink = 0.6 oz pur e alcohol) Comments Unknown Sex and Gender Information Value Date Recorded Sex Assigned at Not on file Legal Sex Female 3:18 AM EXPERIENCE DESIGN DIRECTOR Gender Identity Not on file Sexual Orientation Not on file documented as of this encounter Plan of Treatment Not on file documented as of this encounter Visit Diagnoses Diagnosis Hypertension due to endocrine disorder- Primary documented in this encounter Care Teams Night Filler Relationship Specialty Start Date End Date Non-Staff, Physician NO ADDRESS ON FILE PCP - General 04/02/20 documented as of this encounter
--- OUTSIDE RECORDS SUMMARY | 2025-04-19 12:15 | XMS_ITS | Encounter Summary ---
Author Organization [facility] Address [address] [place] [address] Phone Care Team Providers Care Assistant Printer Floor Covering Name Role Phone Michelle Rico Primary Care Provider [phone]- [phone] Reason for Visit * Reason Comments Med Refill Encounter Details Date Type Department Care Team (Late st Contact Info) Description 07/04/2022 Refill [facility] [address] [place] [address] Gaye Sheth NP [address] [place] [address] Social History Tobacco Use Types [...] on filedocumented in this encounter Care Teams Assistant Printer Floor Covering Relationship Specialty Start Date End Date Michelle Rico FNP [address] [place] PCP - General 09/26/19 documented as of this encounter
--- OUTSIDE RECORDS SUMMARY | 2025-04-19 12:15 | XMS_ITS | Encounter Summary ---
Author Organization [facility] Address [address] [place] [address] Care Team Providers Care Gun Stock Maker Name Role Phone Non-Staff, Physician Primary Care Provider Unava ilable Encounter Details Date Type Department Care Team (Latest Contact Info) Description 12/13/2000 Outpatient Historical [facility] Oseas Guidry MD [address] [place] [address] Abdominal pain, unspecified site (Primary Dx); Constipation; Encounter for long-term (current) use of other medications Social History Tobacco Use Types Packs/Day Years Used Date Smoking Tobacco: Never Assessed Comments Unknown Sex and Gender Information Value Date Recorded Sex Assigned at Not on file Legal Sex Female 3:18 AM VETERINARY LIVESTOCK INSPECTOR Gender Identity Not on file Sexual Orientation Not on file documented as of this encounter Plan of Treatment Not on file documented as of this encounter Visit Diagnoses Diagnosis Abdominal pain, unspecified site- Primary Constipation Encounter for long-term (current) use of other medications documented in this encounter Care Teams Gun Stock Maker Relationship Specialty Start Date End Date Non-Staff, Physician NO ADDRESS ON FILE PCP - General 04/02/20 documented as of this encounter
--- OUTSIDE RECORDS SUMMARY | 2025-04-19 12:15 | XMS_ITS | Encounter Summary ---
Author Organization [facility] Address [address] [place] [address] Care Team Providers Care Z Os Mainframe Systems Programmer Name Role Phone Non-Staff, Physician Primary Care Provider Unava ilable Encounter Details Date Type Department Care Team (Latest Contact Info) Description 03/10/2006 Outpatient Historical [facility] [address] [place] [address] [place] [address] Jeniffer Bronson MD [address] [facility] [address] [place] [address] Syncope and Collapse (Primary Dx) Social History Tobacco Use Types Packs/Day Years Used Date Smoking Tobacco: Never Assessed Comments Unknown Sex and Gender Information Value Date Recorded Sex Assigned at Not on file Legal Sex Female 3:18 AM INDUSTRIAL MECHANIC Gender Identity Not on file Sexual Orientation Not on file documented as of this encounter Plan of Treatment Not on file documented as of this encounter Visit Diagnoses Diagnosis Syncope and collapse- Primary documented in this encounter Care Teams Z Os Mainframe Systems Programmer Relationship Specialty Start Date End Date Non-Staff, Physician NO ADDRESS ON FILE PCP - General 04/02/20 documented as of this encounter
--- OUTSIDE RECORDS SUMMARY | 2025-04-19 12:15 | XMS_ITS | Encounter Summary ---
Author Organization [facility] Address [address] [place] [address] Care Team Providers Care Glaze Grinder Name Role Phone Non-Staff, Physician Primary Care Provider Unava ilable Encounter Details Date Type Department Care Team (Late st Contact Info) Description 10/03/2002 Outpatient Historical [facility] OBGYN-Fong Evans Garvin [address] [place] [address] Sekou Ma MD [address] [facility] [address] [place], [place] [id number] Gynecologic examination (Primary Dx); ENURESIS NOS; ABDOMINAL PAIN RLQ Social History Tobacco Use Types Packs/Day Years Used Date Smoking Tobacco: Never Assessed Comments Unknown Sex and Gender Information Value Date Recorded Sex Assigned at Not on file Legal Sex Female 3:18 AM CANVASSING MANAGER Gender Identity Not on file Sexual Orientation Not on file documented as of this encounter Plan of Treatment Not on file documented as of this encounter Visit Diagnoses Diagnosis Gynecologic examination- Primary Gynecological examination Unspecified urinary incontinence Abdominal pain, right lower quadrant documented in this encounter Care Teams Glaze Grinder Relationship Specialty Start Date End Date Non-Staff, Physician NO ADDRESS ON FILE PCP - General 04/02/20 documented as of this encounter
--- OUTSIDE RECORDS SUMMARY | 2025-04-19 12:16 | XMS_ITS | Patient Health Record ---
Author Organization [facility] Address [address] [place] [address] Care Team Providers Care Global Regulatory Affairs Manager Name Role Phone Michelle Xavier Primary Care Provider Unav ailable Keke Arreaga Unavailable [phone] Brant Miller Unavailable [phone] Estuardo Lopes Unavailable [phone] Leslee Plunkett Unavailable [phone] Eyad Valladares Unavailable [phone] Thania Cardenas Unavailable [phone] Allergies Allergen (clinical drug ingredient) Drug/Non Drug Allergy documented on EMR Reaction Allergy Type Onset Date Status aspirin Aspirin , Drug Allergy Active Coconut Flavor Unknown Drug Allergy Ac tive meloxicam meloxicam , Drug Allergy Active meloxicam Mobic Unknown Drug Allergy Active ketorolac Ketorolac , Drug Allergy Active Results Component Value Reference Range Flag Notes Basic Metabolic Panel (BMP) 04310 Reviewed date:05/28/2024 04:40:31 PM Interpretation: Performing Lab: Notes/Report: PRESURGICAL TESTING; DIAGNOSIS; HYPERTENSION Sodium 138 136-145 MMOL/L Potassium 3.6 3.5-5.1 MMOL/L Chloride 101 98-107 MMOL/L CO2 30.3 20.0-31.0 MMOL/L Glucose Serum 82 71-110 MG/DL Testing p erformed at [facility], [address] [place] [address] [place] [address]. CLIA ID#: [id number] BUN 16 7-21 MG/DL Creat 1.88 .51-1.17 MG/DL HI P-pirsiv-c-benzoquinon e imine (NAPQI) is a metabolite of [...] 286 280-300 MOSM/KG CBC w\ Auto Diff 31808 Reviewed date:05/28/2024 04:40:31 PM Interpretation: Performing Lab: [...] 40.0-70.0 % Lymph Auto% 32.1 22.0-44.0 % [place] Auto% 6.4 3.0-7.0 % Eos Auto% 2.7 2.0-4.0 % Baso Auto% 0.6 0.0-1.0 % Imm Gran% .4 .0-.4 % Neutro Abs 4.45 .80-7.70 Absolute Neutrophil Count 4450 NA Lymph Abs 2.47 .10-4.10 [place] Abs .49 .20-1.00 Eos Abs .21 .00-.40 Baso Abs .05 .00-.20 Imm Gran Abs .03 .00-.10 NRBC# .00 .00-.20 X10'3 NRBC% .00 .00-.20 /100 intact WBC's MRI Cervical Spine w/o Cont- 24502 (Not yet reviewed by provider) Interpretation: Performing Lab: Notes/Report: See Below For Report MRI Cervical Spine w/o Cont Diagnosis Description: Radiculopathy, cervical region Read See Below For Report MRI Cervical Spine w/o Cont- 05725 (Not yet reviewed by provider) Interpretation: Performing Lab: Notes/Report: [id number]=iSite XR Outside CD (Not yet revie wed by provider) Interpretation: Performing Lab: Notes/Report: [id number]=iSite HLVH-LIS-SUUZ 37067 Reviewed date:06/04/2024 04:08:43 PM Interpretation: Performing Lab: Notes/Report: [id number] 81 NA WBG was per formed at [facility] under CLIA# [id number]. POCT-WBG Performed By Mina MOISE Schedule Confirmation [...] NCV/EMG LUE to be do ne at critical access hospital Diagnosis 1 Cervical radiculopat hy (M54.12) Referral Organization [facility] Referring Provider First Name Leslee Referring Provider Last Name Dimitrios Referring Provider Speciality Neurosurge ry Referral Priority Routine Reason Eval and Treat Diagnosis 1 Chronic pain (G89.29 ) Referring Provider First Name Michelle Referring Provider Last Name Trisha Referring Provider Speciality Nurse Prac titioner Referred Organization [facility] Referred Provider Heber Torres Referred Address [address] [facility],[place],[address] Referred Provider Specialty Pain Medicin e General [...] a day Not-Taking Sodium Chloride Acti ve Noonday Carbonate ER 450 MG Tablet Extended Release [...] Date Status Comme nts Influenza (whole), CPT 26218 Inactive Unknown 06/02/2017 Administered Influenza (whole), CPT 26330 Inactive Unknown 06/18/2016 Administered Social History Tobacco [...] service, No service Education High School Dipl avel, High School Diploma, High School Diploma Drugs/Alcohol: Do you smoke marijuana? De nies Do you drink alcohol? No Section Notes: Lifetime non-smoker Lifetime non-smoker Lifetime non-smoker Lifetime non-smoker Lifetime non-smoker Lifetime non-smoker Lifetime non-smoker Lifetime non-smoker Lifetime non-smoker Lifetime non-smoker Problems Problem Type SNOMED Code ICD Code Onset Dates Problem Status W/U Status Risk Notes Problem Chronic kidney disease due to hypertension (773688157948091) Hypertensive chronic kidney disease with stage 1 through stage 4 chronic kidney disease, or unspecified chronic kidney disease (I12.9) Active confirmed Problem Essential hypertension (59125412) HTN (hypertension), benign (I10) Active confirmed Problem Cervical radiculopathy (55673593) Cervical radiculopathy (M54.12) Active confirmed Problem Neck pain (35461260) Neck pain (M54.2) Active confirmed Problem Type II diabetes mellitus without complication (185951982) Diabetes (E11.9) Active confirmed Problem History of polyp of colon (situation) (511803442) History of colon polyps (Z86.010) Active confirmed Problem Chronic renal failure syndrome (60074003) Chronic kidney disease, unspecified CKD stage (N18.9) Active confirmed Problem Chronic gouty arthritis (45814807) Chronic gout without tophus, unspecified cause, unspecified site (M1A.9XX0) Active confirmed Problem Chronic pain (50234822) Chronic pain (G89.29) Active confirmed Problem Cervical spinal stenosis (41508981) Cervical spinal stenosis (M48.02) Active confirmed Problem Diabetic renal disease (187303022) Type 2 diabetes mellitus with diabetic nephropathy, 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) Active confirmed Problem Left cervical radiculopathy (7631058927813572 6) Left cervical radiculopathy (M54.12) Active confirmed Problem Diabetic renal disease (862071048) Chronic kidney disease due to diabetes mellitus (E11.22) Active confirmed Problem Chronic kidney disease stage 3 (disorder) (628210397) Chronic kidney disease, stage 3 unspecified (N18.30) Active confirmed Problem Chronic kidney disease stage 3A (disorder) (685930197) Chronic kidney disease, stage 3a (N18.31) Active confirmed Problem Primary hypertension (66914160) Primary hypertension (I10) Active confirmed Vital Signs Heart Rate 83 /min 04/05/2025 Temperature 97.2 degrees Fahrenheit 04/05/2025 Respiratory Rate 20 /min 09/04/2024 Height-cm 165.1 cm 04/05/2025 Blood pressure diastolic 99 mm Hg 04/05/2025 Oximetry 100 % 04/05/2025 Weight-kg 104.2 kg 04/05/2025 Height 65 in 04/05/2025 Blood pressure systolic 134 mm Hg 04/05/2025 Weight 229.72 lbs 04/05/2025 BMI 38.22 kg/m2 04/05/2025 Encounters Encounter Location Date Provider Diagnosis [facility] [address] [place] [address] 05/30/2024 Eyad Valladares [facility] [address] [place] [address] Dr Farmer [address] [place] [address], [place] [address] 04/05/2025 Keke Arreaga Hypertensive chronic kidney disease with stage 1 through stage 4 chronic kidney disease, or unspecified chronic kidney disease I12.9 ; Chronic kidney disease, stage 3a N18.31 ; HTN (hypertension), benign I10 ; Chronic gout without tophus, unspecified cause, unspecified site M1A.9XX0 ; Hematuria, unspecified type R31.9 ; Hypokalemia E87.6 and Pharmacologic therapy Z79.899 [facility] [address] [place] [address] 05/11/2024 Eyad Valladares 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 and Traumatic complete tear of left rotator cuff, initial encounter S46.012A [facility] [address] [place] [address] 06/08/2024 Eyad Valladares Status post arthroscopy of left shoulder Z98.890 and Left cervical radiculopathy M54.12 [facility] [place] [address] [place] [address] 07/03/2024 Leslee Plunkett Cervical radiculopathy M54.12 ; Neck pain M54.2 ; Cervical spinal stenosis M48.02 and Arthrodesis present Z98.1 [facility] [address] [place] [address] Dr Farmer [address] [place] [address], [place] [address] 07/09/2024 Brant Miller Hypertensive chronic kidney disease with stage 1 through stage 4 chronic kidney disease, or unspecified chronic kidney disease I12.9 ; Chronic kidney disease, stage 3a N18.31 ; HTN (hypertension), benign I10 ; Chronic gout without tophus, unspecified cause, unspecified site M1A.9XX0 ; Hematuria, unspecified type R31.9 ; Hypokalemia E87.6 and Pharmacologic therapy Z79.899 [facility] [address] [place] [address] 07/20/2024 Eyad Valladares Status post arthroscopy of left shoulder Z98.890 [facility] [address] [place] [address] 08/31/2024 Eyad Valladares Status post arthroscopy of left shoulder Z98.890 [facility] [place] [address] [place] [address] 09/04/2024 Estuardo Lopes Cervical radiculopathy M54.12 ; Neck pain M54.2 ; Cervical spinal stenosis M48.02 and Arthrodesis present Z98.1 [facility] [address] [place] [address], [place] [address] 05/04/2024 Eyad Valladares Left shoulder pain, unspecified chronicity M25.512 [facility] [address] [place] [address] [place] [address] 05/15/2024 Keke Arreaga Hypertensive chronic kidney disease with stage 1 through stage 4 chronic kidney disease, or unspecified chronic kidney disease I12.9 ; Chronic kidney disease, stage 3a N18.31 and Chronic gout without tophus, unspecified cause, unspecified site M1A.9XX0 [facility] [address] [place] [address] 05/31/2024 Eyad Valladares [facility] [address] [place] [address] [place] [address] 06/20/2024 Keke Arreaga Chronic kidney disease, stage 3a N18.31 [facility] [address] [place] [address] 07/05/2024 Keke Arreaga [facility] [address] [place] [address] [place] [address] 01/09/2025 Brant Miller Chronic kidney disease, stage 3a N18.31 ; Hypertensive chronic kidney disease with stage 1 through stage 4 chronic kidney disease, or unspecified chronic kidney disease I12.9 ; HTN (hypertension), benign I10 ; Hematuria, unspecified type R31.9 ; Chronic gout without tophus, unspecified cause, unspecified site M1A.9XX0 and Pharmacologic therapy Z79.899 [facility] [address] [place] [address] 01/14/2025 Brant Miller [facility] [address] [place] [address] [place] [address] 02/11/2025 [facility] [address] [place] [address] [place] [address] 02/13/2025 Thania [facility] [address] [place] [address] [place] [address] 03/04/2025 Brant Miller Chronic kidney disease, stage [...] with in 6 months with labs at [facility] 5 to 10 days prior to appointment. [...] with in 6 months with labs at [facility] 5 to 10 days prior to appointment. [...] Name Order Date Shoulder 2V 05/04/2024 Albumin 43685 06/20/2024 Prothrombin Time 50088 12/10/2022 ABORh 40794, 16788 12/10/2022 Antibody Screen 04423 12/10/2022 Giardia/Cryptosporidium Screen 58247, 87 329 05/13/2022 Basic Metabolic Panel (BMP) 69711 2022 Basic Metabolic Panel (BMP) 38765 2023 Basic Metabolic Panel (BMP) 98684 2024 Basic Metabolic Panel (BMP) 65969 2022 CBC w\ Auto Diff 58081 05/13/2022 CBC w\ Auto Diff 88944 12/10/2022 Comprehensive Metabolic Panel (CMP) 8005 3 05/13/2022 Hemoglobin 89818 06/20/2024 Magnesium (B) 13472 06/20/2024 Magnesium (B) 77236 01/09/2025 Metanephrines Fractionated (U) 24 Hr 838 35 09/29/2022 Partial Thromboplastin Time 50219 2022 Phosphorus (B) 83857 01/09/2025 Phosphorus (B) 03497 06/20/2024 Protein (U) Random 08380 06/20/2024 Sedimentation Rate 25159 05/13/2022 Uric Acid (B) 75003 06/20/2024 Uric Acid (B) 41929 01/09/2025 Uric Acid (B) 60101 03/04/2025 CBC Reflex Man Diff 00477, 43350 023 Microalbumin (U) Random 74842 01/09/2025 Creatinine (U) 19357 01/09/2025 Creatinine (U) 75598 06/20/2024 Catecholamines (U) 24hr 84028 09/29/2022 UA Reflex Micro, Reflex Cult 11529, 8101 5, 54019 07/05/2024 UA Reflex Micro, Reflex Cult 07124, 8101 5, 40451 06/20/2024 UA Reflex Micro, Reflex Cult 74952, 8101 5, 19662 01/09/2025 Metanephrines Plasma Free 48504 09/29/19 23 PTH Intact 56594 01/09/2025 Calprotectin Fecal 98265 05/13/2022 Cervical Spine AP/Lat 2-3 Views-80877 Cervical Spine AP/Lat 2-3 Views-02251 Chest PA/Lat-99848 12/13/2022 CT Abdomen, Pelvis w/o Contrast-92450 MRI Cervical Spine w/o Cont-58400 2023 MRI Cervical Spine w/o Cont-73232 2023 XR Outside CD 06/08/2024 Glucometer WBG--61131 12/22/2022 Glucometer WBG--51596 12/22/2022 WBC Auto Diff--05894 12/22/2022 BB ABORH-56106,12662 12/13/2022 zzzFluoro >1h4 12/22/2022 zzzCT Outside CD 11/29/2022 zzzMRI Outside CD 03/23/2022 Diagnostic Colonoscopy-73791 05/13/2022 EGD, Upper GI Diagnostic-73818 Schedule Confirmation 07/23/2024 Schedule Confirmation 07/23/2024 Schedule Confirmation 08/04/2024 Schedule Confirmation 08/04/2024 Basic Metabolic Panel (BMP) 54814 2023 Magnesium (B) 01237 12/15/2023 Phosphorus (B) 07028 12/15/2023 Uric Acid (B) 92034 12/15/2023 UA Reflex Micro, Reflex Cult 55198, 8101 5, 97800 12/15/2023 UA Reflex Micro, Reflex Cult 19289, 8101 5, 90931 12/26/2023 Albumin 37816 05/15/2024 Basic Metabolic Panel (BMP) 85881 2023 Hemoglobin 84225 05/15/2024 Magnesium (B) 59593 05/15/2024 Phosphorus (B) 11022 05/15/2024 Protein (U) Random 39907 05/15/2024 Uric Acid (B) 63309 05/15/2024 Creatinine (U) 06553 05/15/2024 UA Reflex Micro, Reflex Cult 45910, 8101 5, 52799 05/15/2024 PTH Intact 94253 05/15/2024 Magnesium (B) 68246 03/04/2025 Phosphorus (B) 57104 03/04/2025 Microalbumin (U) Random 04419 03/04/2025 Creatinine (U) 20531 03/04/2025 UA Reflex Micro, Reflex Cult 78513, 8101 5, 35655 03/04/2025 PTH Intact 14209 03/04/2025 Basic Metabolic Panel (BMP) 42941 2024 Next Appt Details Provider Name:Qasim Donis, 05/22/2025 10:20:00 AM, [address] [place], [address], Provider Name:Keke rodriguez, 10/04/2025 11:00:00 AM, [address] [place] [address] , [facility] [address], [place], [address], Insurance Providers Payer Name Payer Address Payer Phone Subscriber Number Group Number Insured Name Patient Relationship to Insured Coverage Start Date Coverage End Date [employer] [address] [address] [place] [address] [id number] Dennis Singh Spouse - patient is the spouse of [...]
--- OUTSIDE RECORDS SUMMARY | 2025-04-19 12:16 | XMS_ITS | Clinical Summary ---
Author Organization [facility] Address [address] [place] [address] Care Team Providers Care Field Artillery Crewmember Name Role Phone Michelle Rico NP Primary Care Provider [phone] Allergies Active Allergy Reactions Criticality Noted Date [...] on file Legal Sex Female 8:56 PM SALVAGE MECHANIC Gender Identity Female 07/04/2018 10:38 AM SALVAGE MECHANIC Sexual Orientation Straight 10/04/2023 7: 11 PM SALVAGE MECHANIC Obstetrics History Last Filed Vital Signs Vital Sign Reading Time Taken Comments Blood Pressure 194/105 02/24/2024 2:37 PM CDT Pulse 102 02/24/2024 2:37 PM CDT Temperature 36.6 C (97.8 F) 07/04/2018 10:50 AM SALVAGE MECHANIC Respiratory Rate - - Oxygen Saturation 97% [...] patient's age to complete this topic Insurance [facility] CHOICE PLUS [facility] CHOICE PLUS Care Teams Field Artillery Crewmember Relationship Specialty Start Date End Date Michelle Rico NP [address] [place] [address] PCP - General 02/13/19
== END 2025-04-19 11:26 | disposition home or self-care (01) ==
LOC: ER 05:42 → CSU 04-19 01:01 → ER IP 04-19 12:13
PROVIDERS: Admitting Provider Family Medicine; Emergency Provider Emergency Medicine; PCP Nurse Practitioner Family; Visit Provider Student in an Organized Health Care Education/Training Program
DX: I16.0 Hypertensive urgency (principal); R51.9 Headache, unspecified; G89.29 Other chronic pain; F19.20 Other psychoactive substance dependence, uncomplicated; E89.0 Postprocedural hypothyroidism; Z91.148 Patient's other noncompliance with medication regimen for other reason; Z91.89 Other specified personal risk factors, not elsewhere classified; F31.9 Bipolar disorder, unspecified; E27.40 Unspecified adrenocortical insufficiency; K21.9 Gastro-esophageal reflux disease without esophagitis; E11.22 Type 2 diabetes mellitus with diabetic chronic kidney disease; I12.9 Hypertensive chronic kidney disease with stage 1 through stage 4 chronic kidney disease, or unspecified chronic kidney disease; N18.9 Chronic kidney disease, unspecified; E78.5 Hyperlipidemia, unspecified; F31.89 Other bipolar disorder; F41.9 Anxiety disorder, unspecified
CPT/HCPCS: 36415; 36416; 70450; 71045; 80053; 82962; 83880; 84439; 84443; 84481; 84484; 85025; 93005; 94664; 96365; 96372; 96375; 99291; G0378; J0360; J1171; J1200; J1630; J1650; J2060; J2405; J2765; J3490; J7040; J7120; J7512; J9999

== ENCOUNTER 2025-04-23 10:10 | Inpatient (IN) | payer OTHER, SELFPAY ==
--- OUTSIDE RECORDS SUMMARY | 2025-02-11 10:10 | XMS_ITS ---
Author Organization [facility] Address [address] [place] [address] Care Team Providers Care Vp Talent Management Name Role Phone Michelle Xavier Primary Care Provider Unav ailable Keke Arreaga Unavailable [phone] Thania Cardenas Unavailable [phone] REASON FOR VISIT 6-7 mo labs @ [facility] Encounters Encounter Location Date Provider Diagnosis [facility] [address] [place] [address] [address] [place] [address] 02/11/2025 Thania Cardenas Plan Of Treatment Next Appt Details Provider Name:Qasim Donis, 05/22/2025 10:20:00 AM, [address] [place], [address], Provider Name:Keke rodriguez, 10/04/2025 11:00:00 AM, [address] [place] [address] [address], [place], [address], Progress Notes * DENISSE VALENTINE KDOB: 8 (45 yo F)Acc No.[id number]:02/11/2025 Progress Notes Patient: Vijay ROUSE DENISSE Enriquez Provider: Heber Cardenas CNP :1980 A ge:45 Y S ex:Female Date:02/11/2025 Address:[address] [place] [address] [address], [place] Pcp:TORSTEN Stuart Subjective: * Chief Complaints: * 6 -7 mo labs @ [facility] Billing Information: * Procedure Codes: Care Plan Details* * Electronic signature of Geovany Cardenas CNP on 04/23/2025 at 10:20 AM CDT Sign off status: Pending * Provider: Heber Cardenas CNP Date: 0 02/11/2025 Generated for Fany dunaway/Shauna/Joycelyn on: 0 04/23/2025 10:20 AM CDT
[2025-04-23] VITALS (45 sets, daily range): BP systolic 93–214; BP diastolic 62–134; PULSE 82–151; RESP 6–29; TEMP 36.8–37.1; O2SAT 95–100; BMI 36.2
--- OUTSIDE RECORDS SUMMARY | 2025-04-23 10:19 | XMS_ITS | Encounter Summary ---
Author Organization [facility] Address [address] [place] [address] Phone Care Team Providers Care Managing Consultant Clinical Professor Name Role Phone Michelle Rico TORSTEN Primary Care Provider Encounter Details Date Type Department Care Team (Late st Contact Info) Description 11/12/2020 [facility] [address] [place] [address] Josseline Wong NP [address] [place] [address] Stage 3 chronic kidney disease [...] ratio, urine (12/09/2020 3:16 PM CDT) Pathologist [facility] Protein, Ur 51(H) 0 - 20 mg/dL [facility] Creatinine, Urine 347.9(H) 29.0 - 226.0 mg/dL [facility] Comment:Reference Range vari es with fluid intake and diet. Protein/Creatin ine Ratio, Urine 0.15 0.00 - 0.19 mg/mg Creatinine [facility] Comment: Specimen Source: Urine, unspecified source Performed at: [place] [address] Coal Shooter: German Casey MD [facility] # [id number] Urine Urine specimen / Unknown 12/09/2020 3:16 PM CDT 12/09/2020 5:07 PM CDT Josseline Wong NOTEREADER LAB URINE ORDERABLES Millicent l Result [facility] * (ABNORMAL) Vit D 25 hydroxy (12/09/2020 3:16 PM CDT) Pathologist [facility] Vitamin D, 25-Hydroxy 22(L) 30 - 100 ng/mL [facility] Comment: Interpretive Data Chart: Deficient: 0 - 20 ng/mL Insufficient: 21 - 29 ng/mL Sufficient: 30 - 100 ng/mL Increased Risk of Hypercalciuria: >100 ng/ml Toxic: >150 ng/ml Performed at: [facility] [place] [address] [place] [address] Coal Shooter: German Casey MD CLIA # [id number] Blood 12/09/2020 3:16 PM CDT 12/09/2020 5:07 PM CDT Josseline Wong NOTEREADER LAB BLOOD ORDERABLES Millicent l Result Performing Organization Address City/[facility] Co de Phone Number [facility] SNA * PTH, intact (12/09/2020 3:16 PM CDT) Pathologist [facility] PTH 34.9 15.0 - 65.0 pg/mL [facility] Comment: Performed at: [place] [address] Coal Shooter: German Casey MD CLIA # [id number] Blood 12/09/2020 3:16 PM CDT 12/09/2020 5:07 PM CDT Josseline Wong NOTEREADER LAB BLOOD ORDERABLES Millicent l Result Performing Organization Address City/[facility] Co de Phone Number [facility] * (ABNORMAL) CBC (12/09/2020 3:16 PM CDT) WBC 8.3 4.5 - 11.0 K/uL [facility] S[facility] Red Blood Cells 5.09 4.20 - 5.40 M/uL [facility] S[facility] Hgb 14.3 12.0 - 16.0 g/dL [facility] SNA Hematocrit 45.1 36.0 - 46.0 % [facility] MCV 88.6 84.0 - 103.0 fL [facility] S[facility] MCH 28.1 27.0 - 34.0 pg [facility] SNA MCHC 31.7 30.0 - 35.0 g/dL [facility] Platelets 246 140 - 440 K/uL [facility] MPV 12.2 8.9 - 12.8 fL [facility] S[facility] RDW 15.8(H) 11.0 - 14.5 % [facility] SNA RDW-SD 51.7 37.0 - 54.0 fL [facility] Comment: Performed at: [facility] [address] Coal Shooter: MD GIRISH Castillo # [id number] Blood 12/09/2020 3:16 PM CDT 12/09/2020 5:07 PM CDT us Josseline Wong NOTEREADER LAB BLOOD ORDERABLES Millicent l Result [facility] [...] TEST COMMENT: Fasting?->No Performed at: [facility] [address] [place] [address] Coal Shooter: MD GIRISH Castillo # [id number] Blood 12/09/2020 3:16 PM CDT 12/09/2020 5:07 PM CDT us Josseline Wong NOTEREADER LAB BLOOD ORDERABLES Millicent l Result [facility] documented in this encounter Visit Diagnoses Diagnosis Stage 3 chronic kidney disease (HCC) documented in this encounter Care Teams Managing Consultant Clinical Professor Relationship Specialty Start Date End Date Michelle Rico FNP [address] [place] PCP - General 09/26/19 documented as of this encounter
--- OUTSIDE RECORDS SUMMARY | 2025-04-23 10:20 | XMS_ITS | Encounter Summary ---
Author Organization [facility] Address [address] [place] [address] Care Team Providers Care Acquisitions Editor Name Role Phone Non-Staff, Physician Primary Care Provider Unava ilable Encounter Details Date Type Department Care Team (Latest Contact Info) Description 05/25/2000 Outpatient Historical [facility] Shaheen Bey MD [address] [facility] [address] [place] [address] Follow-up examination following surgery (Primary Dx) Social History Tobacco Use Types Packs/Day Years Used Date Smoking Tobacco: Never Assessed Comments Unknown Sex and Gender Information Value Date Recorded Sex Assigned at Not on file Legal Sex Female 3:18 AM SENIOR RECRUITER Gender Identity Not on file Sexual Orientation Not on file documented as of this encounter Plan of Treatment Not on file documented as of this encounter Visit Diagnoses Diagnosis Follow-up examination following surgery- Primary documented in this encounter Care Teams Acquisitions Editor Relationship Specialty Start Date End Date Non-Staff, Physician NO ADDRESS ON FILE PCP - General 04/02/20 documented as of this encounter
--- OUTSIDE RECORDS SUMMARY | 2025-04-23 10:20 | XMS_ITS | Clinical Summary ---
Author Organization [facility] Address [address] 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 Active levothyroxine 175 mcg tablet Take 1 [...] on file Legal Sex Female 3:18 AM ARCHITECTURE INTERN Gender Identity Not on file Sexual Orientation Not on file Last Filed Vital Signs Vital Sign Reading Time Taken Comments Blood Pressure 122/70 09/19/2020 1:09 PM ARCHITECTURE INTERN Pulse 112 09/19/2020 1:09 PM ARCHITECTURE INTERN Temperature 35.8 C (96.4 F) 04/03/2020 12:41 PM CDT Respiratory Rate 20 04/03/2020 12:41 PM CDT Oxygen Saturation 99% 04/03/2020 12:41 PM CDT Inhaled Oxygen Concentration - - Weight 100.2 kg (221 lb) 09/19/2020 1:09 PM ARCHITECTURE INTERN Height 165.1 cm (5' 5 ) 09/19/2020 1:09 PM ARCHITECTURE INTERN Body Mass Index 36.78 09/19/2020 1:09 PM ARCHITECTURE INTERN Plan of Treatment Health Maintenance Due Date [...] 2025 06/04/2019 Medical Devices Implanted Type Area Liquefied Natural Gas Plant Operator Device Identifier Shelf Expiration Date Model / Serial / Lot Hemostatic Surgifoam Sz12-7 1972 - [id number] Implanted:06/12 by Quinten Medeiros MD at [facility] (Quantity not on file) Hemostatic N/A: Neck [employer]- [employer] 03/29/20231971 [id number] Procedures Procedure Name Priority Date/Time Associated Diagnosis Comments COLONOSCOPY REPORT 10/26/2019 11 :43 AM ARCHITECTURE INTERN from Last 3 Months or Most Recently Relevant to Health Maintenance Results * COLONOSCOPY REPORT (10/26/2019 11:43 AM ARCHITECTURE INTERN) Narrative Procedure Note Kurt Howard DO - 10/26/2019 11:43 AM CST [facility] GI Patient Name: Nina Garcia Procedure Date: [...] 11:26:45 AM Scope Out: 11:40:06 AM [address] [place], [place] Kurt Howard DO GI PROCEDURE ORDERABLES Final Result from Last 3 Months or Most Recently Relevant to Health Maintenance Insurance Advance Directives For more information, please contact: [phone] * Full Code (Latest Code Status on File) Date Activated Date Inactivated Comments 04/02/2020 8:57 PM 04/03/2020 5:02 PM * Full Code Date Activated Date Inactivated Comments 10/26/2019 10:01 AM 10/26/2019 2:26 PM * Full Code Date Activated Date Inactivated Comments 06/12/2019 11:39 AM 06/13/2019 5:40 PM * Full Code Date Activated Date Inactivated Comments 04/05/2019 9:15 PM 04/07/2019 5:09 PM Care Teams Residential Director Relationship Specialty Start Date End Date Non-Staff, Physician NO ADDRESS ON FILE PCP - General 04/02/20
--- OUTSIDE RECORDS SUMMARY | 2025-04-23 10:20 | XMS_ITS | Encounter Summary ---
Author Organization [facility] Address [address] [place] [address] Care Team Providers Care Forming Mill Operator Name Role Phone Non-Staff, Physician Primary Care Provider Unava ilable Encounter Details Date Type Department Care Team (Latest Contact Info) Description 06/20/2000 Outpatient Historical [facility] Oseas Guidry MD [address] [place] [address] Pain in joint, site unspecified (Primary Dx); Nonallopathic lesion of abdomen and other sites, not elsewhere classified Social History Tobacco Use Types Packs/Day Years Used Date Smoking Tobacco: Never Assessed Comments Unknown Sex and Gender Information Value Date Recorded Sex Assigned at Not on file 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
--- OUTSIDE RECORDS SUMMARY | 2025-04-23 10:20 | XMS_ITS | Encounter Summary ---
Author Organization [facility] Address [address] [facility] Attn: [place] [id number] Care Team Providers Care Ground Layer Name Role Phone Non-Staff, Physician Primary Care Provider Unava ilable Encounter Details Date Type Department Care Team (Late st Contact Info) Description 04/25/2001 Inpatient Historical Sekou Ma MD [address] [address] Social History Tobacco Use Types Packs/Day Years Used Date Smoking Tobacco: Never Assessed Comments Unknown Sex and Gender Information Value Date Recorded Sex Assigned at Not on file Legal Sex Female 3:18 AM WAITER/WAITRESS INFORMAL Gender Identity Not on file Sexual Orientation Not on file documented as of this encounter Plan of Treatment Not on file documented as of this encounter Visit Diagnoses Not on filedocumented in this encounter Care Teams Ground Layer Relationship Specialty Start Date End Date Non-Staff, Physician NO ADDRESS ON FILE PCP - General 04/02/20 documented as of this encounter
--- OUTSIDE RECORDS SUMMARY | 2025-04-23 10:20 | XMS_ITS | Encounter Summary ---
Author Organization [facility] Address [address] [place] [address] Care Team Providers Care Associate Financial Analyst Name Role Phone Non-Staff, Physician Primary Care Provider Unava ilable Encounter Details Date Type Department Care Team (Latest Contact Info) Description 02/21/2006 Outpatient Historical [facility] [address] [facility], [address] [place] [address] Antoinette Bradley MD [address] [place] [address] Syncope and Collapse (Primary Dx) Social History Tobacco Use Types Packs/Day Years Used Date Smoking Tobacco: Never Assessed Comments Unknown Sex and Gender Information Value Date Recorded Sex Assigned at Not on file 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
--- OUTSIDE RECORDS SUMMARY | 2025-04-23 10:20 | XMS_ITS | Encounter Summary ---
Author Organization [facility] Address [address] [place] [address] Care Team Providers Care Transfer Driver Name Role Phone Non-Staff, Physician Primary Care Provider Unava ilable Encounter Details Date Type Department Care Team (Late st Contact Info) Description 04/17/2001 Outpatient Historical [facility] Sekou Ma MD [address] [address] Other specified pre-operative examination (Primary Dx); Abdominal pain, generalized; Dysmenorrhea Social History Tobacco Use Types Packs/Day Years Used Date Smoking Tobacco: Never Assessed Comments Unknown Sex and Gender Information Value Date Recorded Sex Assigned at Not on file Legal 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
--- OUTSIDE RECORDS SUMMARY | 2025-04-23 10:20 | XMS_ITS | Encounter Summary ---
Author Organization [facility] Address [address] [place] [address] Care Team Providers Care Airplane Technician Name Role Phone Non-Staff, Physician Primary Care Provider Unava ilable Encounter Details Date Type Department Care Team (Latest Contact Info) Description 01/22/2000 Outpatient Historical [facility] Oseas Guidry MD [address] [place] [address] Chest pain, unspecified (Primary Dx); Headache(784.0); Dyspepsia and other specified disorders of function of stomach Social History Tobacco Use Types Packs/Day Years Used Date Smoking Tobacco: Never Assessed Comments Unknown Sex and Gender Information Value Date Recorded Sex Assigned at Not on file Legal Sex Female 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
--- OUTSIDE RECORDS SUMMARY | 2025-04-23 10:20 | XMS_ITS | Clinical Summary ---
Author Organization [facility] Address [address] [place] [address] Care Team Providers Care Linoleum Printer Name Role Phone Non-Staff, Physician Primary Care Provider Unava ilable Allergies Active Allergy Reactions Criticality Noted Date Comments Aspirin Other (See Comments) 04/05/2019 Was instructed not to take medication Ketorolac Unknown 04/28/2011 Meloxicam Unknown 04/28/2011 Nsaids (Non-Steroidal Anti-Inflammatory Drug) Other (See Comments) 04/05/2019 Cant take because of [place] Medications lamoTRIgine (LaMICtal) 200 mg tablet Take [...] daily. A ctive naloxone (NARCAN) 4 mg/spray [place], Non-Aerosol as directed 0 Active ondansetron (ZOFRAN [...] on file Legal Sex Female 1:20 PM MARKETING DEVELOPMENT REPRESENTATIVE Gender Identity Not on file Sexual [...] 2025 06/04/2019 Medical Devices Implanted Type Area Railroad Car Truck Builder Device Identifier Shelf Expiration Date Model / Serial / Lot Hemostatic Surgifoam [id number] 1971 - [id number] Implanted:05/29 by Quinten Medeiros MD (Quantity not on file) Hemostatic N/A: Neck [employer]- [employer] 03/29/20231971 [id number] Procedures Procedure Name Priority Date/Time Associated Diagnosis Comments COLONOSCOPY REPORT 10/26/2019 11 :43 AM MARKETING DEVELOPMENT REPRESENTATIVE from Last 3 Months or Most Recently Relevant to Health Maintenance Results * COLONOSCOPY REPORT (10/26/2019 11:43 AM MARKETING DEVELOPMENT REPRESENTATIVE) Narrative Procedure Note Kurt Howard DO - 10/26/2019 11:43 AM CST Procedures signed by Kurt Howard DO at 10/26/2019 11:43 AM Author: Kurt Howard DO Service: -- Author Type: Physician Filed: 10/26/2019 11:43 AM Date of Service: 10/26/2019 11:43 AM Status:Signed Director Operating Room: Kurt Howard DO (Physician) Procedure Orders 1. COLONOSCOPY REPORT [[id number]] ordered by Kurt Howard DOat 10/26/[address] [place] [address] Patient Name: Nina Garcia Procedure Date: 10/26/2019 [...] Scope Out: 11:40:06 AM [address] [place], [place] Kurt Howard DO GI PROCEDURE ORDERABLES Edited Result - Final from Last 3 Months or Most Recently Relevant to Health Maintenance Insurance [facility] [employer] PPO [id number] Care Teams Linoleum Printer Relationship Specialty Start Date End Date Non-Staff, Physician NO ADDRESS ON FILE PCP - General 04/02/20
--- OUTSIDE RECORDS SUMMARY | 2025-04-23 10:20 | XMS_ITS | Encounter Summary ---
Author Organization [facility] Address [address] [place] [address] Care Team Providers Care Electroplater Name Role Phone Non-Staff, Physician Primary Care Provider Unava ilable Encounter Details Date Type Department Care Team (Latest Contact Info) Description 07/11/2000 Outpatient Historical [facility] Oseas Guidry MD [address] [place] [address] Abdominal pain, unspecified site (Primary Dx); Other malaise and fatigue Social History Tobacco Use Types Packs/Day Years Used Date Smoking Tobacco: Never Assessed Comments Unknown Sex and Gender Information Value Date Recorded Sex Assigned at Not on file Legal Sex Female 3:18 AM STONE HAND Gender Identity Not on file Sexual Orientation Not on file documented as of this encounter Plan of Treatment Not on file documented as of this encounter Visit Diagnoses Diagnosis Abdominal pain, unspecified site- Primary Other malaise and fatigue documented in this encounter Care Teams Electroplater Relationship Specialty Start Date End Date Non-Staff, Physician NO ADDRESS ON FILE PCP - General 04/02/20 documented as of this encounter
--- OUTSIDE RECORDS SUMMARY | 2025-04-23 10:20 | XMS_ITS | Encounter Summary ---
Author Organization [facility] Address [address] [place] [address] Care Team Providers Care Physical Therapy Manager Name Role Phone Non-Staff, Physician Primary Care Provider Unava ilable Encounter Details Date Type Department Care Team (Latest Contact Info) Description 02/08/2001 Outpatient Historical [facility] Trent Reed NO ADDRESS ON FILE Headache(784.0) (Primary Dx) Social History Tobacco Use Types Packs/Day Years Used Date Smoking Tobacco: Never Assessed Comments Unknown Sex and Gender Information Value Date Recorded Sex Assigned at Not on file Legal Sex Female 3:18 AM MOLDER 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
--- OUTSIDE RECORDS SUMMARY | 2025-04-23 10:20 | XMS_ITS | Encounter Summary ---
Author Organization [facility] Address [address] [place] [address] Phone Care Team Providers Care Training Associate Name Role Phone Michelle Rico Primary Care Provider [phone] Reason for Visit * Reason Comments Med Refill Encounter Details Date Type Department Care Team (Late st Contact Info) Description 07/04/2022 Refill [facility] [address] [place] [address] Gaye Sheth NP [address] [place] [address] Social History Tobacco Use Types [...] on filedocumented in this encounter Care Teams Training Associate Relationship Specialty Start Date End Date Michelle Rico FNP [address] PCP - General 09/26/19 documented as of this encounter
--- OUTSIDE RECORDS SUMMARY | 2025-04-23 10:20 | XMS_ITS | Encounter Summary ---
Author Organization [facility] Address [address] [place] [address] Care Team Providers Care Speech Communication Professor Name Role Phone Non-Staff, Physician Primary Care Provider Unava ilable Encounter Details Date Type Department Care Team (Latest Contact Info) Description 02/12/2000 Outpatient Historical [facility] Oseas Guidry MD [address] [place] [address] Bronchitis, not specified as acute or chronic (Primary Dx); Nonallopathic lesion of thoracic region, not elsewhere classified Social History Tobacco Use Types Packs/Day Years Used Date Smoking Tobacco: Never Assessed Comments Unknown Sex and Gender Information Value Date Recorded Sex Assigned at Not on file 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
--- OUTSIDE RECORDS SUMMARY | 2025-04-23 10:20 | XMS_ITS | Encounter Summary ---
Author Organization [facility] Address [address] [place] [address] Care Team Providers Care Engine Repairer Production Name Role Phone Non-Staff, Physician Primary Care Provider Unava ilable Encounter Details Date Type Department Care Team (Latest Contact Info) Description 12/13/2000 Outpatient Historical [facility] Oseas Guidry MD [address] [place] [address] Abdominal pain, unspecified site (Primary Dx); Constipation; Encounter for long-term (current) use of other medications Social History Tobacco Use Types Packs/Day Years Used Date Smoking Tobacco: Never Assessed Comments Unknown Sex and Gender Information Value Date Recorded Sex Assigned at Not on file Legal 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
--- OUTSIDE RECORDS SUMMARY | 2025-04-23 10:20 | XMS_ITS | Encounter Summary ---
Author Organization [facility] Address [address] [place] [address] Care Team Providers Care Decontaminator Name Role Phone Non-Staff, Physician Primary Care Provider Unava ilable Encounter Details Date Type Department Care Team (Late st Contact Info) Description 04/17/2001 Outpatient Historical [facility] [place] [address] [place] [address] Sekou Ma MD [address] [facility] [address] [place], [place] [address] Other specified pre-operative examination (Primary Dx); Unspecified symptom associated with female genital organs Social History Tobacco Use Types Packs/Day Years Used Date Smoking Tobacco: Never Assessed Comments Unknown Sex and Gender Information Value Date Recorded Sex Assigned at Not on file Legal Sex Female 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
--- OUTSIDE RECORDS SUMMARY | 2025-04-23 10:20 | XMS_ITS | Encounter Summary ---
Author Organization [facility] Address [address] [place] [address] Phone Care Team Providers Care Stylist Apprentice Name Role Phone Michelle Rico Primary Care Provider [phone]- [phone] Reason for Visit * Reason Comments Med Refill Encounter Details Date Type Department Care Team (Late st Contact Info) Description 01/21/2022 Refill [facility] [address] [place] [address] Dangelo Monreal MD [address] [place] [address] Social History Tobacco Use Types [...] on filedocumented in this encounter Care Teams Stylist Apprentice Relationship Specialty Start Date End Date Michelle Rico FNP [address] PCP - General 09/26/19 documented as of this encounter
--- OUTSIDE RECORDS SUMMARY | 2025-04-23 10:20 | XMS_ITS | Encounter Summary ---
Author Organization [facility] Address [address] [place] [address] Phone Care Team Providers Care Water Fabricator Operator Name Role Phone Michelle Rico TORSTEN Primary Care Provider Encounter Details Date Type Department Care Team (Late st Contact Info) Description 03/06/2021 Orders Only [facility] [address] [place] [address] Janeth Fong MA Stage 3b [...] (Blood) 4.1 g/dL [facility] eGFR Non-Afr Nigerien 51 [facility] eGFR 59 [facility] Blood specimen (specimen) Venous blood / Unknown 03/19/2021 10:30 AM CDT Narrative [facility] - 03/24/2021 9:21 AM CDT film editor lab [facility] [place] [address] [address] Lens Engraver: Poncho Cordova DO MPH CLIA: [id number] [facility] [place] [address] [facility] [place] [address] Lens Engraver: Poncho Cordova DO MPH CLIA: [id number] us Dangelo Monreal MD LAB BLOOD ORDERABLES [facility] Result [facility] * CBC and differential (03/19/2021 10:30 AM CDT) Pathologist [facility] WBC 9.7 K/uL [facility] Red Blood [...] [facility] - 03/24/2021 9:24 AM CDT film editor lab [facility] [place] [address] [place] [address] Lens Engraver: Poncho Cordova DO MPH CLIA: [id number] [facility] [place] [address] [place] [address] Lens Engraver: Poncho Cordova DO MPH CLIA: [id number] us Dangelo Monreal MD LAB BLOOD ORDERABLES [...] [facility] - 03/24/2021 9:22 AM CDT film editor lab [facility] [place] [address] [place] [address] Lens Engraver: Poncho Cordova DO MPH CLIA: [id number] [facility] [place] [address] [place] [address] Lens Engraver: Poncho Cordova DO MPH CLIA: [id number] us Dangelo Monreal MD LAB URINE ORDERABLES Fi nal Result [facility] documented in this encounter Visit Diagnoses Diagnosis Stage 3b chronic kidney disease (HCC) documented in this encounter Care Teams Water Fabricator Operator Relationship Specialty Start Date End Date Michelle Rico FNP [address] PCP - General 09/26/19 documented as of this encounter
--- OUTSIDE RECORDS SUMMARY | 2025-04-23 10:20 | XMS_ITS | Patient Health Record ---
Author Organization [facility] Address [address] [place], [place] [id number] Care Team Providers Care Core Composer Feeder Name Role Phone Michelle Xavier Primary Care Provider Jeannette Howell MD, Dillon Unavailable [phone] Aisha VILLALPANDO, Dominic Unavailable Unavailable Tarah Villalobos Unavailable [phone] Allergies Allergen (clinical drug ingredient) Drug/Non Drug Allergy documented on EMR Reaction Allergy Type Onset Date Status NSAIAs (uncoded) kidney issues Allergy Active Toradol Unknown Drug Allergy Active aspirin aspirin Unknown Drug Allergy Active meloxicam Mobic Unknown Drug Allergy Active Results Component Value Reference Range Notes Urine tox screen / MS if ind icated Reviewed date:07/12/2024 09:57:55 AM Interpretation:Consistent Performing Lab: Notes/Report: Consistent Urine tox screen / MS if ind icated Reviewed date:12/03/2024 07:58:02 AM Interpretation:Consistent Performing Lab: Notes/Report: Consistent Urine tox screen / MS if ind icated Reviewed date:12/03/2024 07:58:02 AM Interpretation:Consistent Performing Lab: Notes/Report: Consistent Urine tox screen / MS if ind icated Reviewed date:12/03/2024 07:58:02 AM Interpretation:Consistent Performing Lab: Notes/Report: Consistent Embedded PDF Reviewed date:12/03/2024 07:57:20 AM Interpretation: Performing Lab: Notes/Report: [facility], [address], [place] [address], , L ab Director: Justina Nunez MD, CLIA ID# [id number] [employer] Results Reviewed date:12/03/2024 07:57:02 AM Interpretation: Performing Lab:[id number] [facility] [address] [place] [id number] Justina Nunez MD Notes/Report: [facility], [address] [facility], [place] [address], , L ab Director: Justina Nunez MD, CLIA ID# [id number] Hydromorphone Quantification positive-4916.256 50 ng/m L BENZODIAZEPINES [...] Status W/U Status Risk Notes Problem Sacroiliitis (29448430) Sacroiliitis (720.2) Active confirmed Problem Lumbosacral spondylosis without myelopathy (18513292) Lumbosacral spondylosis without myelopathy (721.3) Active confirmed Problem Displacement of lumbar intervertebral disc without myelopathy (74823083) Lumbar (w/out myelopathy) intervertebral disc disorder (722.10) Active confirmed Problem Spasm (76079238) Muscle spasm (728.85) Active confirmed Problem Sleep dysfunction with sleep stage disturbance (258885482) Dysfunctions associated with sleep stages or arousal from sleep (780.56) Active confirmed Problem Low back pain (695950900) Low back pain (724.2) Active confirmed Problem Neck pain (74658316) Neck pain (723.1) Active confirmed Problem Pain in thoracic spine (646908175) Thoracic pain (724.1) Active confirmed Problem Arthralgia of the pelvic region and thigh (130925736) Pelvic/Hip pain (719.45) Active confirmed Problem Long-term drug therapy (599342618) LONG-TERM USE MEDS NEC (V58.69) Active confirmed R/O substance abuse Problem Anxiety state (207358659) Anxiety State, other, specified: procedure related (300.09) Active confirmed Problem Displacement of cervical intervertebral disc without myelopathy (77785897) Cervical (w/out myelopathy) intervertebral disc disorder (722.0) Active confirmed Problem Lumbar spinal stenosis (80346219) Lumbar spinal stenosis (724.02) Active confirmed Problem Lumbar post-laminectomy syndrome (980077096) Postlaminectomy syndrome of lumbar region (722.83) Active confirmed Problem Solitary sacroiliitis (222880800) Sacroiliitis, not elsewhere classified (M46.1) Active confirmed Problem Low back pain (642000287) Low back pain (M54.5) Active confirmed Problem Lumbosacral spondylosis without myelopathy (59416010) Spondylosis without myelopathy or radiculopathy, lumbar region (M47.816) Active confirmed Problem High risk drug monitoring status (159536729) jail (current) use of opiate analgesic (Z79.891) Active confirmed Problem Pain of right knee region (finding) (921502087103640 ) Pain in right knee (M25.561) Active confirmed Problem Pain of left knee joint (finding) (423207115809203 ) Pain in left knee (M25.562) Active confirmed Problem Anxiety disorder (861512142) Other specified anxiety disorders (F41.8) Active confirmed Problem Sleep disorder (96826859) Other sleep disorders (G47.8) Active confirmed Problem Chronic pain (30465689) Other chronic pain (G89.29) Active confirmed Problem Essential hypertension (31293916) Essential (primary) hypertension (I10) Active confirmed Problem Shoulder joint pain (092990942) Pain in right shoulder (M25.511) Active confirmed Problem Shoulder joint pain (119671613) Pain in left shoulder (M25.512) Active confirmed Problem Spinal stenosis of lumbar region (79968942) Spinal stenosis, lumbar region (M48.06) Active confirmed Problem Cervical radiculopathy (03321835) Cervical disc disorder with radiculopathy, unspecified cervical region (M50.10) Active confirmed Problem Cervical disc disorder with radiculopathy (586689433) Cervical disc disorder with radiculopathy, mid-cervical region (M50.12) Active confirmed Problem Radiculopathy due to lumbar intervertebral disc disorder (499938599138891 ) Intervertebral disc disorders with radiculopathy, lumbar region (M51.16) Active confirmed Problem Cervicalgia (31033147) Cervicalgia (M54.2) Active confirmed Problem Pain in thoracic spine (270420869) Pain in thoracic spine (M54.6) Active confirmed Problem Myalgia (91207954) Myalgia (M79.1) Active confirmed Problem Post-laminectomy syndrome (44121458) Postlaminectomy syndrome, not elsewhere classified (M96.1) Active confirmed Problem Injury of head (83685976) Other specified injuries of head, initial encounter (S09.8XXA) Active confirmed Problem Neurogenic claudication (583245129) Spinal stenosis, lumbar region with neurogenic claudication (M48.062) Active confirmed Problem Muscle pain (93091249) Myalgia, other site (M79.18) Active confirmed Problem Pain in lumbar spine (878874449) Vertebrogenic low back pain (M54.51) Active confirmed Vital Signs Temperature 97.7 degrees Fahrenheit 01/24/2025 Blood pressure diastolic 88 mm Hg 01/24/2025 Oximetry 99 % 01/24/2025 Height 65 in 01/24/2025 Blood pressure systolic 114 mm Hg 01/24/2025 Weight 197.4 lbs 01/24/2025 BMI 32.85 kg/m2 01/24/2025 Encounters Encounter Location Date Provider Diagnosis [facility] [address] [place], [place] [id number] 04/24/2024 Dillon Howell Vertebrogenic low ba ck pain M54.51 ; Other chronic pain G89.29 ; Myalgia, other site M79.18 ; Other sleep disorders G47.8 and jail (current) use of opiate analgesic Z79.891 [facility] [address] [place], [place] [id number] 05/17/2024 Tarah Guzman Vertebrogenic low ba ck pain M54.51 ; Other chronic pain G89.29 ; Myalgia, other site M79.18 and Other sleep disorders G47.8 [facility] [address] [place] [id number] 07/12/2024 Dillon Howell Vertebrogenic low ba ck pain M54.51 ; Other chronic pain G89.29 ; Myalgia, other site M79.18 ; Other sleep disorders G47.8 and terminal operations supervisor (current) use of opiate analgesic Z79.891 [facility] [address] [place], [place] [id number] 09/27/2024 Dillon Howell Vertebrogenic low ba ck pain M54.51 ; Other chronic pain G89.29 ; Myalgia, other site M79.18 and Other sleep disorders G47.8 [facility] [address] [place], [place] [id number] 11/29/2024 Dillon Howell Vertebrogenic low ba ck pain M54.51 ; Other chronic pain G89.29 ; Myalgia, other site M79.18 ; Essential (primary) hypertension I10 ; Other sleep disorders G47.8 and terminal operations supervisor (current) use of opiate analgesic Z79.891 [facility] [address] [place], [place] [id number] 01/24/2025 Dillon Howell Vertebrogenic low ba ck pain M54.51 ; Other chronic pain G89.29 ; Myalgia, other site M79.18 and Other sleep disorders G47.8 [facility] [address] [place], [place] [id number] 05/30/2024 Dillon Howell [facility] [address] [place], [place] [id number] 07/18/2024 Dillon Howell [facility] [address] [place] [id number] 09/06/2024 Dillon Howell Assessments Encounter Date Diagnosis (ICD Code) Assessment Notes Treatment Notes Treatment Clinical Notes Section Notes 07/12/2024 Other chronic pain (ICD-10 - G89.29) [...] M54.51) Chronic axial lumbosacral spine pain. 04/24/2024 Other chronic pain (ICD-10 - G89.29) [...] tizanidine for her spasms. Plan to continue. 07/12/2024 Myalgia, other site (ICD-10 - M79.18) Patient has reported benefit with use of tizanidine for her spasms. Plan to continue. 09/27/2024 Other sleep disorders (ICD-10 - G47.8) Plan to continue to restrict opioid use in relation to sleep for safety concerns. 07/12/2024 Other sleep disorders (ICD-10 - G47.8) Plan to continue to restrict opioid use in relation to sleep for safety concerns. 11/29/2024 Essential (primary) hypertension (ICD-10 - I10) Education sheet given at today's visit; patient to address with PCP. 01/24/2025 Other sleep disorders (ICD-10 - G47.8) Plan to continue to restrict opioid use in relation to sleep for safety concerns. 05/17/2024 Other sleep disorders (ICD-10 - G47.8) Plan to continue to restrict opioid use in relation to sleep for safety concerns. 04/24/2024 Other sleep disorders (ICD-10 - G47.8) Plan to continue to restrict opioid use in relation to sleep for safety concerns. 04/24/2024 jail (current) use of opiate analgesic (ICD-10 - Z79.891) Patient has a total daily MED of 90. This places the patient in the [facility] high risk category for total daily opioid usage. Patient verbalized understanding to hold opioid and relaxant medications in the setting of low blood pressure (she takes her BP three times per day). 11/29/2024 Other sleep disorders (ICD-10 - G47.8) Plan to continue to restrict opioid use in relation to sleep for safety concerns. 07/12/2024 terminal operations supervisor (current) use of opiate analgesic (ICD-10 - Z79.891) 2022 opioid (OUD) risk tool score = 4. This places the patient in the high risk category, warranting more frequent screening. Plan 2 month visit pending continued compliance with patient's Treatment Agreement. Plan urine toxicology screen today to monitor for presence of any unprescribed or illicit controlled substance(s), as well as prescribed hydromorphone. 11/29/2024 terminal operations supervisor (current) use of opiate analgesic (ICD-10 - [...] clinic is closing due to Dr. Howell's senior care; see scanned document. Terminal prescriptions were given to the patient along with tapering instructions. 05/17/2024 Other Patient reports she is scheduled for left RTC repair on 05/30/[address] Valladares at [facility]. 04/24/2024 Other Plan Of Treatment No Information Insurance Providers Payer Name Payer Address Payer Phone Subscriber Number Group Number Insured Name Patient Relationship to Insured Coverage Start Date Coverage End Date [employer] RE-CAT [address] [place] [address] [id number] Nina Garcia Self - patient is the insured Medical (General) History Medical History History ICD Code Chronic pain Low back, mid back and neck pain Lumbar spondyosis, spinal st enosis, spondylolisthesis and postlaminectomy syndrome Sacroiliitis Hip pain, right Knee pain, radiology studies completed, [facility] orthopedic evaluation by Dr. Hernandez (no treatment recommendations were given per prior patient report) Left shoulder pain Irritable bowel syndrome Thyroid issues Hypertension, to include hypertensive cr pablo episodes Diverticulitis Pulmonary embolism, left Enlarged spleen Enlarged liver Cardiac issues Coronary artery disease, [place] (mild per pr ior patient report) A-fib [...] 10/01/13 Colonoscopy, 10/31/17 Bladder suspension, performed at [facility] by Dr. Haley, 02/2018 Thyroidectomy, performed at [facility] in [place], [place], 05/2019 Colonoscopy, performed at [facility] in [place], [place], 09/2019 Right L4-5 laminectomy, performed at [facility] by Dr. Yuri Galloway, 01/01/22 Colonoscopy, 06/18/22 C4-C5 ACDFF, removal of C5-C 6 hardware, performed at [facility] by Dr. Estuardo Lopes, 12/22/22 Rotator cuff repair, left, performed at [facility] by Dr. Valladares, 05/30/24 EGD and colonoscopy, performed at [place], [place], 09/06/24 Hospitalization History Reason Date(Month/Year) Low blood pressure, treated at [facility], 12/27 01/20 Blood stool and abdominal pain, treated at [facility], 09/04/24 - 09/05/24 Low blood pressure, treated at [facility], 05/30 024 Shock / hypotension, treated at [facility], - 03/12/24 ER visit for mild heart attack and A-fi b treated at [facility], 06/2022 High blood pressure, treated at [facility], - 07/23/21 High blood pressure, treated at [facility] in [place], [place], 03/2020 Stomach problems, treated at [facility] in [place], [place], 04/05/19 ER visit for blood pressure, [...]
--- OUTSIDE RECORDS SUMMARY | 2025-04-23 10:20 | XMS_ITS | Encounter Summary ---
Author Organization [facility] Address [address] [facility] [address] [place] [address] Phone Care Team Providers Care Aligning Checker Name Role Phone Michelle Rico Primary Care Provider [phone] Reason for Visit * Reason Comments Med Refill Encounter Details Date Type Department Care Team (Late st Contact Info) Description 09/10/2021 Refill [facility] [address] [facility] [address] [place] [address] Josseline Wong NP [address] [place] [address] Social History Tobacco Use Types [...] on filedocumented in this encounter Care Teams Aligning Checker Relationship Specialty Start Date End Date Michelle Rico FNP [address] PCP - General 09/26/19 documented as of this encounter
--- OUTSIDE RECORDS SUMMARY | 2025-04-23 10:20 | XMS_ITS | Encounter Summary ---
Author Organization [facility] Address [address] [place] [address] Care Team Providers Care Sound Installation Worker Name Role Phone Non-Staff, Physician Primary Care Provider Unava ilable Encounter Details Date Type Department Care Team (Late st Contact Info) Description 02/21/2006 Outpatient Historical [facility] Social History Tobacco Use Types Packs/Day Years Used Date Smoking Tobacco: Never Assessed Comments Unknown Sex and Gender Information Value Date Recorded Sex Assigned at Not on file Legal Sex Female 3:18 AM MANAGER VIDEO Gender Identity Not on file Sexual Orientation Not on file documented as of this encounter Plan of Treatment Not on file documented as of this encounter Visit Diagnoses Not on filedocumented in this encounter Care Teams Sound Installation Worker Relationship Specialty Start Date End Date Non-Staff, Physician NO ADDRESS ON FILE PCP - General 04/02/20 documented as of this encounter
--- OUTSIDE RECORDS SUMMARY | 2025-04-23 10:20 | XMS_ITS | Encounter Summary ---
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/HCC) (Primary Dx); Syncope and Collapse Social History Tobacco Use Types Packs/Day Years Used Date Smoking Tobacco: Never Assessed Comments Unknown Sex and Gender Information Value Date Recorded Sex Assigned at Not on file Legal Sex Female 3:18 AM GREY STOCK RECORDER Gender Identity Not on file Sexual Orientation Not on file documented as of this encounter Plan of Treatment Not on file documented as of this encounter Visit Diagnoses Diagnosis Unspecified epilepsy without mention of intractable epilepsy (CMS/HCC)- Primary Unspecified epilepsy without mention of intractable epilepsy Syncope and collapse documented in this encounter Care Teams Patch Sander Relationship Specialty Start Date End Date Non-Staff, Physician NO ADDRESS ON FILE PCP - General 04/02/20 documented as of this encounter
--- OUTSIDE RECORDS SUMMARY | 2025-04-23 10:20 | XMS_ITS | Encounter Summary ---
Author Organization [facility] Address [address] [place] [address] Care Team Providers Care Stippler Name Role Phone Non-Staff, Physician Primary Care Provider Unava ilable Encounter Details Date Type Department Care Team (Latest Contact Info) Description 07/19/2002 Outpatient Historical [facility] Oseas Guidry MD [address] [place] [id number] IRRITABLE COLON (Primary Dx) Social History Tobacco Use Types Packs/Day Years Used Date Smoking Tobacco: Never Assessed Comments Unknown Sex and Gender Information Value Date Recorded Sex Assigned at Not on file Legal Sex Female 3:18 AM DRILL PRESS OPERATOR NUMERICAL CONTROL Gender Identity Not on file Sexual Orientation Not on file documented as of this encounter Plan of Treatment Not on file documented as of this encounter Visit Diagnoses Diagnosis Irritable bowel syndrome- Primary documented in this encounter Care Teams Stippler Relationship Specialty Start Date End Date Non-Staff, Physician NO ADDRESS ON FILE PCP - General 04/02/20 documented as of this encounter
--- OUTSIDE RECORDS SUMMARY | 2025-04-23 10:20 | XMS_ITS | Encounter Summary ---
Author Organization [facility] Address [address] [place] [address] Care Team Providers Care Carpenter Form Name Role Phone Non-Staff, Physician Primary Care Provider Unava ilable Encounter Details Date Type Department Care Team (Latest Contact Info) Description 01/05/2001 Outpatient Historical [facility] Oseas Guidry MD [address] [place] [address] Urinary tract infection, site not specified (Primary Dx); Other and unspecified noninfectious gastroenteritis and colitis(558.9) Social History Tobacco Use Types Packs/Day Years Used Date Smoking Tobacco: Never Assessed Comments Unknown Sex and Gender Information Value Date Recorded Sex Assigned at Not on file Legal Sex Female 3:18 AM DIE CAST DIE MAKER Gender Identity Not on file Sexual Orientation Not on file documented as of this encounter Plan of Treatment Not on file documented as of this encounter Visit Diagnoses Diagnosis Urinary tract infection, site not specified- Primary Other and unspecified noninfectious gastroenteritis and colitis(558.9) Other and unspecified noninfectious gastroenteritis and colitis documented in this encounter Care Teams Carpenter Form Relationship Specialty Start Date End Date Non-Staff, Physician NO ADDRESS ON FILE PCP - General 04/02/20 documented as of this encounter
--- OUTSIDE RECORDS SUMMARY | 2025-04-23 10:20 | XMS_ITS | Encounter Summary ---
Author Organization [facility] Address [address] [place] [address] Care Team Providers Care Blood Coordinator Name Role Phone Non-Staff, Physician Primary Care Provider Unava ilable Encounter Details Date Type Department Care Team (Latest Contact Info) Description 02/21/2006 Outpatient Historical [facility] Imaging Services [address] 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
--- OUTSIDE RECORDS SUMMARY | 2025-04-23 10:20 | XMS_ITS | Encounter Summary ---
Author Organization [facility] Address [address] [place] [address] Care Team Providers Care Tube Wrapper Name Role Phone Non-Staff, Physician Primary Care Provider Unava ilable Encounter Details Date Type Department Care Team (Latest Contact Info) Description 02/28/2001 Outpatient Historical [facility] Oseas Guidry MD [address] [place] [address] Unspecified inflammatory disease of female pelvic organs and tissues (Primary Dx) Social History Tobacco Use Types Packs/Day Years Used Date Smoking Tobacco: Never Assessed Comments Unknown Sex and Gender Information Value Date Recorded Sex Assigned at Not on file Legal Sex Female 3:18 AM LPN INSTRUCTOR Gender Identity Not on file Sexual Orientation Not on file documented as of this encounter Plan of Treatment Not on file documented as of this encounter Visit Diagnoses Diagnosis Unspecified inflammatory disease of female pelvic organs and tissues- Primary documented in this encounter Care Teams Tube Wrapper Relationship Specialty Start Date End Date Non-Staff, Physician NO ADDRESS ON FILE PCP - General 04/02/20 documented as of this encounter
--- OUTSIDE RECORDS SUMMARY | 2025-04-23 10:20 | XMS_ITS | Encounter Summary ---
Author Organization [facility] Address [address] [place] [address] Care Team Providers Care Roll Machine Operator Name Role Phone Non-Staff, Physician Primary Care Provider Unava ilable Encounter Details Date Type Department Care Team (Latest Contact Info) Description 04/29/1998 Outpatient Historical [facility] [address] [place] [address] August Walker MD NO ADDRESS [...] file Legal Sex Female 3:18 AM MAINTENANCE INSPECTOR Gender Identity Not on file Sexual Orientation Not on file documented as of this encounter Plan of Treatment Not on file documented as of this encounter Visit Diagnoses Diagnosis Other screening- Primary Other specified screening Other known or suspected abnormality, not elsewhere classified, affecting management of mother, antepartum condition or complication Lymphangioma, any site documented in this encounter Care Teams Roll Machine Operator Relationship Specialty Start Date End Date Non-Staff, Physician NO ADDRESS ON FILE PCP - General 04/02/20 documented as of this encounter
--- OUTSIDE RECORDS SUMMARY | 2025-04-23 10:20 | XMS_ITS | Encounter Summary ---
Author Organization [facility] Address [address] [place] [address] Care Team Providers Care Natural Sciences Manager Name Role Phone Non-Staff, Physician Primary Care Provider Unava ilable Encounter Details Date Type Department Care Team (Late st Contact Info) Description 03/20/2001 Outpatient Historical [facility] OBGYN-Fong [place] [address] [place] [address] Sekou Ma MD [address] [facility] [address] [place], [place] [id number] Irregular menstruation (Primary Dx); Dyspareunia; Unspecified symptom associated with female genital organs Social History Tobacco Use Types Packs/Day Years Used Date Smoking Tobacco: Never Assessed Comments Unknown Sex and Gender Information Value Date Recorded Sex Assigned at Not on file Legal Sex Female 3:18 AM WELL LOGGING MUD ANALYSIS CAPTAIN Gender Identity Not on file Sexual Orientation Not on file documented as of this encounter Plan of Treatment Not on file documented as of this encounter Visit Diagnoses Diagnosis Irregular menstruation- Primary Irregular menstrual cycle Dyspareunia Unspecified symptom associated with female genital organs documented in this encounter Care Teams Natural Sciences Manager Relationship Specialty Start Date End Date Non-Staff, Physician NO ADDRESS ON FILE PCP - General 04/02/20 documented as of this encounter
--- OUTSIDE RECORDS SUMMARY | 2025-04-23 10:20 | XMS_ITS | Encounter Summary ---
Author Organization [facility] Address [address] [place] [address] Care Team Providers Care Mapping Supervisor Name Role Phone Non-Staff, Physician Primary Care Provider Unava ilable Encounter Details Date Type Department Care Team (Late st Contact Info) Description 10/03/2002 Outpatient Historical [facility] OBGYN-Fong [place] [address] [place] [address] Sekou Ma MD [address] [facility] [address] [place], [place] [address] Social History Tobacco Use Types Packs/Day Years Used Date Smoking Tobacco: Never Assessed Comments Unknown Sex and Gender Information Value Date Recorded Sex Assigned at Not on file Legal Sex Female 3:18 AM 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
--- OUTSIDE RECORDS SUMMARY | 2025-04-23 10:20 | XMS_ITS | Encounter Summary ---
Author Organization [facility] Address [address] [place] [address] Care Team Providers Care Quality Rn Name Role Phone Non-Staff, Physician Primary Care Provider Unava ilable Encounter Details Date Type Department Care Team (Late st Contact Info) Description 04/25/2001 Outpatient Historical [facility] OBGYN-Fong [place] [address] [place] [address] Sekou Ma MD [address] [facility] [address] [place], [place] [address] Metrorrhagia (Primary Dx); Dysmenorrhea; Unspecified symptom associated with female genital organs Social History Tobacco Use Types Packs/Day Years Used Date Smoking Tobacco: Never Assessed Comments Unknown Sex and Gender Information Value Date Recorded Sex Assigned at Not on file Legal Sex Female 3:18 AM RESERVATIONS SALES AGENT Gender Identity Not on file Sexual Orientation Not on file documented as of this encounter Plan of Treatment Not on file documented as of this encounter Visit Diagnoses Diagnosis Metrorrhagia- Primary Dysmenorrhea Unspecified symptom associated with female genital organs documented in this encounter Care Teams Quality Rn Relationship Specialty Start Date End Date Non-Staff, Physician NO ADDRESS ON FILE PCP - General 04/02/20 documented as of this encounter
--- OUTSIDE RECORDS SUMMARY | 2025-04-23 10:20 | XMS_ITS | Encounter Summary ---
Author Organization [facility] Address [address] [place] [address] Care Team Providers Care Galvanometer Assembler Name Role Phone Non-Staff, Physician Primary Care Provider Unava ilable Encounter Details Date Type Department Care Team (Latest Contact Info) Description 01/26/2000 Outpatient Historical [facility] Oseas Guidry MD [address] [place] [address] Chest pain, unspecified (Primary Dx); Nonallopathic lesion of thoracic region, not elsewhere classified; Personal history of endocrine, metabolic, and immunity disorders Social History Tobacco Use Types Packs/Day Years Used Date Smoking Tobacco: Never Assessed Comments Unknown Sex and Gender Information Value Date Recorded Sex Assigned at Not on file Legal Sex Female 3:18 AM ORE MIXER Gender Identity Not on file Sexual Orientation Not on file documented as of this encounter Plan of Treatment Not on file documented as of this encounter Visit Diagnoses Diagnosis Chest pain, unspecified- Primary Nonallopathic lesion of thoracic region, not elsewhere classified Personal history of endocrine, metabolic, and immunity disorders documented in this encounter Care Teams Galvanometer Assembler Relationship Specialty Start Date End Date Non-Staff, Physician NO ADDRESS ON FILE PCP - General 04/02/20 documented as of this encounter
--- OUTSIDE RECORDS SUMMARY | 2025-04-23 10:20 | XMS_ITS | Encounter Summary ---
Author Organization [facility] Address [address] [place] [address] Care Team Providers Care Crab Picker Name Role Phone Non-Staff, Physician Primary Care Provider Unava ilable Encounter Details Date Type Department Care Team (Latest Contact Info) Description 08/31/2000 Outpatient Historical [facility] Shaheen Bey MD [address] [facility] [address] [place] [address] Constipation (Primary Dx); Abdominal pain, right upper quadrant; Abdominal pain, left lower quadrant Social History Tobacco Use Types Packs/Day Years Used Date Smoking Tobacco: Never Assessed Comments Unknown Sex and Gender Information Value Date Recorded Sex Assigned at Not on file Legal Sex Female 3:18 AM OFFICE SERVICES ASSOCIATE Gender Identity Not on file Sexual Orientation Not on file documented as of this encounter Plan of Treatment Not on file documented as of this encounter Visit Diagnoses Diagnosis Constipation- Primary Abdominal pain, right upper quadrant Abdominal pain, left lower quadrant documented in this encounter Care Teams Crab Picker Relationship Specialty Start Date End Date Non-Staff, Physician NO ADDRESS ON FILE PCP - General 04/02/20 documented as of this encounter
--- OUTSIDE RECORDS SUMMARY | 2025-04-23 10:20 | XMS_ITS | Encounter Summary ---
Author Organization [facility] Address [address] [place] [address] Care Team Providers Care Chicken Vaccinator Name Role Phone Non-Staff, Physician Primary Care Provider Unava ilable Encounter Details Date Type Department Care Team (Latest Contact Info) Description 04/20/2000 Outpatient Historical [facility] Trent Reed NO ADDRESS ON FILE Other and unspecified noninfectious gastroenteritis and colitis(558.9) (Primary Dx) Social History Tobacco Use Types Packs/Day Years Used Date Smoking Tobacco: Never Assessed Comments Unknown Sex and Gender Information Value Date Recorded Sex Assigned at Not on file Legal Sex Female 3:18 AM GATE CLERK Gender Identity Not on file Sexual Orientation Not on file documented as of this encounter Plan of Treatment Not on file documented as of this encounter Visit Diagnoses Diagnosis Other and unspecified noninfectious gastroenteritis and colitis(558.9)- Primary Other and unspecified noninfectious gastroenteritis and colitis documented in this encounter Care Teams Chicken Vaccinator Relationship Specialty Start Date End Date Non-Staff, Physician NO ADDRESS ON FILE PCP - General 04/02/20 documented as of this encounter
--- OUTSIDE RECORDS SUMMARY | 2025-04-23 10:20 | XMS_ITS | Encounter Summary ---
Author Organization [facility] Address [address] [place] [address] Phone Care Team Providers Care Boiler Fireman Name Role Phone Michelle Rico Primary Care Provider Encounter Details Date Type Department Care Team (Late st Contact Info) Description 03/16/2021 Orders Only [facility] [address] [place] [address] Dangelo Monreal MD [address] [place] [address] Stage 3b chronic kidney disease [...] (HCC) documented in this encounter Care Teams Boiler Fireman Relationship Specialty Start Date End Date Michelle Rico FNP [address] [place] [address]k PCP - General 09/26/19 documented as of this encounter
--- OUTSIDE RECORDS SUMMARY | 2025-04-23 10:20 | XMS_ITS | Encounter Summary ---
Author Organization [facility] Address [address] [place] [address] Care Team Providers Care Manager Publishing Name Role Phone Non-Staff, Physician Primary Care Provider Unava ilable Encounter Details Date Type Department Care Team (Latest Contact Info) Description 12/22/2000 Outpatient Historical [facility] Oseas Guidry MD [address] [place] [address] Abdominal pain, unspecified site (Primary Dx); Nonallopathic lesion of abdomen and other sites, not elsewhere classified Social History Tobacco Use Types Packs/Day Years Used Date Smoking Tobacco: Never Assessed Comments Unknown Sex and Gender Information Value Date Recorded Sex Assigned at Not on file Legal Sex Female 3: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
--- OUTSIDE RECORDS SUMMARY | 2025-04-23 10:20 | XMS_ITS | Encounter Summary ---
Author Organization [facility] Address [address] [place] [address] Care Team Providers Care School Office Manager Name Role Phone Non-Staff, Physician Primary Care Provider Unava ilable Encounter Details Date Type Department Care Team (Late st Contact Info) Description 04/03/[address] [facility] OBGYN-Fong [place] [address] [place] [address] Sekou Ma MD [address] [facility] [address] [place], [place] [address] Unspecified inflammatory disease of uterus (Primary Dx); Irregular menstruation; Unspecified symptom associated with female genital organs Social History Tobacco Use Types Packs/Day Years Used Date Smoking Tobacco: Never Assessed Comments Unknown Sex and Gender Information Value Date Recorded Sex Assigned at Not on file Legal Sex Female 3:18 AM ROLLING MACHINE OPERATOR Gender Identity Not on file Sexual Orientation Not on file documented as of this encounter Plan of Treatment Not on file documented as of this encounter Visit Diagnoses Diagnosis Unspecified inflammatory disease of uterus- Primary Irregular menstruation Irregular menstrual cycle Unspecified symptom associated with female genital organs documented in this encounter Care Teams School Office Manager Relationship Specialty Start Date End Date Non-Staff, Physician NO ADDRESS ON FILE PCP - General 04/02/20 documented as of this encounter
--- OUTSIDE RECORDS SUMMARY | 2025-04-23 10:20 | XMS_ITS | Encounter Summary ---
Author Organization [facility] Address [address] [place] [address] Care Team Providers Care Science Intern Name Role Phone Non-Staff, Physician Primary Care Provider Unava ilable Encounter Details Date Type Department Care Team (Latest Contact Info) Description 04/21/2000 Outpatient Historical [facility] Oseas Guidry MD [address] [place] [address] Blood in stool (Primary Dx); Other malaise and fatigue Social History Tobacco Use Types Packs/Day Years Used Date Smoking Tobacco: Never Assessed Comments Unknown Sex and Gender Information Value Date Recorded Sex Assigned at Not on file Legal Sex Female 3:18 AM AMBULANCE DISPATCHER Gender Identity Not on file Sexual Orientation Not on file documented as of this encounter Plan of Treatment Not on file documented as of this encounter Visit Diagnoses Diagnosis Blood in stool- Primary Other malaise and fatigue documented in this encounter Care Teams Science Intern Relationship Specialty Start Date End Date Non-Staff, Physician NO ADDRESS ON FILE PCP - General 04/02/20 documented as of this encounter
--- OUTSIDE RECORDS SUMMARY | 2025-04-23 10:20 | XMS_ITS | Encounter Summary ---
Author Organization [facility] Address [address] [place] [address] Care Team Providers Care Dishwasher Preparer Name Role Phone Non-Staff, Physician Primary Care Provider Unava ilable Encounter Details Date Type Department Care Team (Late st Contact Info) Description 10/10/2002 Outpatient Historical [facility] Imaging Services-Ajit [place] [address] [place] [phone] Sekou Ma MD [address] [facility] [address] [place], [place] [address] ADMINISTRTVE ENCOUNT NOS (Primary Dx) Social History Tobacco Use Types Packs/Day Years Used Date Smoking Tobacco: Never Assessed Comments Unknown Sex and Gender Information Value Date Recorded Sex Assigned at Not on file Legal Sex Female 3:18 AM FILTER PLANT SUPERVISOR Gender Identity Not on file Sexual Orientation Not on file documented as of this encounter Plan of Treatment Not on file documented as of this encounter Visit Diagnoses Diagnosis Encounters for unspecified administrative purpose- Primary documented in this encounter Care Teams Dishwasher Preparer Relationship Specialty Start Date End Date Non-Staff, Physician NO ADDRESS ON FILE PCP - General 04/02/20 documented as of this encounter
--- OUTSIDE RECORDS SUMMARY | 2025-04-23 10:20 | XMS_ITS | Encounter Summary ---
Author Organization [facility] Address [address] [place] [address] Care Team Providers Care Ripening Room Hand Name Role Phone Non-Staff, Physician Primary Care Provider Unava ilable Encounter Details Date Type Department Care Team (Latest Contact Info) Description 05/10/2000 Outpatient Historical [facility] Oseas Guidry MD [address] [place] [address] Anal or rectal pain (Primary Dx); Blood in stool Social History Tobacco Use Types Packs/Day Years Used Date Smoking Tobacco: Never Assessed Comments Unknown Sex and Gender Information Value Date Recorded Sex Assigned at Not on file Legal Sex Female 3:18 AM NOTCH GRINDER Gender Identity Not on file Sexual Orientation Not on file documented as of this encounter Plan of Treatment Not on file documented as of this encounter Visit Diagnoses Diagnosis Anal or rectal pain- Primary Blood in stool documented in this encounter Care Teams Ripening Room Hand Relationship Specialty Start Date End Date Non-Staff, Physician NO ADDRESS ON FILE PCP - General 04/02/20 documented as of this encounter
--- OUTSIDE RECORDS SUMMARY | 2025-04-23 10:20 | XMS_ITS | Encounter Summary ---
Author Organization [facility] Address [address] [facility] [address] Care Team Providers Care Special Tester Name Role Phone Non-Staff, Physician Primary Care Provider Unava ilable Encounter Details Date Type Department Care Team (Late st Contact Info) Description 02/21/2006 Outpatient Historical [facility] [place] [address] Social History Tobacco Use Types Packs/Day Years Used Date Smoking Tobacco: Never Assessed Comments Unknown Sex and Gender Information Value Date Recorded Sex Assigned at Not on file Legal Sex Female 3:18 AM 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
--- OUTSIDE RECORDS SUMMARY | 2025-04-23 10:20 | XMS_ITS | Encounter Summary ---
Author Organization [facility] Address [address] [place] [address] Care Team Providers Care Lease Purchase Driver Name Role Phone Non-Staff, Physician Primary Care Provider Unava ilable Encounter Details Date Type Department Care Team (Late st Contact Info) Description 04/03/2001 Outpatient Historical [facility] Sekou Ma MD [address] [address] Excessive menstruation (Primary Dx) Social History Tobacco Use Types Packs/Day Years Used Date Smoking Tobacco: Never Assessed Comments Unknown Sex and Gender Information Value Date Recorded Sex Assigned at Not on file Legal Sex Female 3:18 AM FOUR SLIDE OPERATOR Gender Identity Not on file Sexual Orientation Not on file documented as of this encounter Plan of Treatment Not on file documented as of this encounter Visit Diagnoses Diagnosis Excessive menstruation- Primary Excessive or frequent menstruation documented in this encounter Care Teams Lease Purchase Driver Relationship Specialty Start Date End Date Non-Staff, Physician NO ADDRESS ON FILE PCP - General 04/02/20 documented as of this encounter
--- OUTSIDE RECORDS SUMMARY | 2025-04-23 10:20 | XMS_ITS | Encounter Summary ---
Author Organization [facility] Address [address] [place] [address] Care Team Providers Care Die Mounter Name Role Phone Non-Staff, Physician Primary Care Provider Unava ilable Encounter Details Date Type Department Care Team (Late st Contact Info) Description 10/03/2002 Outpatient Historical [facility] OBGYN-Fong [place] [address] [place] [address] Sekou Ma MD [address] [facility] [address] [place], [place] [address] Gynecologic examination (Primary Dx); ENURESIS NOS; ABDOMINAL PAIN RLQ Social History Tobacco Use Types Packs/Day Years Used Date Smoking Tobacco: Never Assessed Comments Unknown Sex and Gender Information Value Date Recorded Sex Assigned at Not on file Legal Sex Female 3:18 AM MANAGER OUTREACH Gender Identity Not on file Sexual Orientation Not on file documented as of this encounter Plan of Treatment Not on file documented as of this encounter Visit Diagnoses Diagnosis Gynecologic examination- Primary Gynecological examination Unspecified urinary incontinence Abdominal pain, right lower quadrant documented in this encounter Care Teams Die Mounter Relationship Specialty Start Date End Date Non-Staff, Physician NO ADDRESS ON FILE PCP - General 04/02/20 documented as of this encounter
--- OUTSIDE RECORDS SUMMARY | 2025-04-23 10:21 | XMS_ITS | Encounter Summary ---
Author Organization [facility] Address [address] [place] [address] Care Team Providers Care Hospital Orderly Name Role Phone Non-Staff, Physician Primary Care Provider Unava ilable Encounter Details Date Type Department Care Team (Late st Contact Info) Description 06/11/2015 Ancillary Orders [facility] Nuclear Medicine [address] 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
--- OUTSIDE RECORDS SUMMARY | 2025-04-23 10:21 | XMS_ITS | Encounter Summary ---
Author Organization [facility] Address [address] [place] [address] Care Team Providers Care Mop Worker Name Role Phone Non-Staff, Physician Primary Care Provider Unava ilable Encounter Details Date Type Department Care Team (Latest Contact Info) Description 02/23/[address] 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
--- OUTSIDE RECORDS SUMMARY | 2025-04-23 10:21 | XMS_ITS | Encounter Summary ---
Author Organization [facility] Address [address] [place] [address] Care Team Providers Care Human Resources Training Manager Name Role Phone Non-Staff, Physician Primary Care Provider Unava ilable Encounter Details Date Type Department Care Team (Latest Contact Info) Description 03/09/2006 Outpatient Historical [facility] Endoscopy [address] [place] [address] Quinten Aviles MD [address] [place] [address] [address] [place] [phone] Anal or Rectal Pain (Primary Dx) Social History Tobacco Use Types Packs/Day Years Used Date Smoking Tobacco: Never Assessed Comments Unknown Sex and Gender Information Value Date Recorded Sex Assigned at Not on file Legal Sex Female 3:18 AM CUSTOM MILLER Gender Identity Not on file Sexual Orientation Not on file documented as of this encounter Plan of Treatment Not on file documented as of this encounter Visit Diagnoses Diagnosis Anal or rectal pain- Primary documented in this encounter Care Teams Human Resources Training Manager Relationship Specialty Start Date End Date Non-Staff, Physician NO ADDRESS ON FILE PCP - General 04/02/20 documented as of this encounter
--- OUTSIDE RECORDS SUMMARY | 2025-04-23 10:21 | XMS_ITS | Patient Health Record ---
Author Organization [facility] Address [address] [place] [address] Care Team Providers Care Hurl Shaker Name Role Phone Michelle Xavier Primary Care Provider Unav ailable Keke Arreaga Unavailable [phone] Brant Miller Unavailable [phone] Estuardo Lopes Unavailable [phone] Leslee Plunkett Unavailable [phone] Eyad Valladares Unavailable [phone] Thania Cardenas Unavailable [phone] Allergies Allergen (clinical drug ingredient) Drug/Non Drug Allergy documented on EMR Reaction Allergy Type Onset Date Status aspirin Aspirin , Drug Allergy Active Coconut Flavor Unknown Drug Allergy Ac tive meloxicam meloxicam , Drug Allergy Active meloxicam Mobic Unknown Drug Allergy Active ketorolac Ketorolac , Drug Allergy Active Results Component Value Reference Range Flag Notes Basic Metabolic Panel (BMP) 06730 Reviewed date:05/28/2024 04:40:31 PM Interpretation: Performing Lab: Notes/Report: PRESURGICAL TESTING; DIAGNOSIS; HYPERTENSION Sodium 138 136-145 MMOL/L Potassium 3.6 3.5-5.1 MMOL/L Chloride 101 98-107 MMOL/L CO2 30.3 20.0-31.0 MMOL/L Glucose Serum 82 71-110 MG/DL Testing p erformed at [facility], [address] [place] [address] [place] [address]. CLIA ID#: [id number] BUN 16 7-21 MG/DL Creat 1.88 .51-1.17 MG/DL HI N-xaqfbt-o-benzoquinon e imine (NAPQI) is a metabolite of [...] 286 280-300 MOSM/KG CBC w\ Auto Diff 93831 Reviewed date:05/28/2024 04:40:31 PM Interpretation: Performing Lab: [...] 40.0-70.0 % Lymph Auto% 32.1 22.0-44.0 % Mineral Auto% 6.4 3.0-7.0 % Eos Auto% 2.7 2.0-4.0 % Baso Auto% 0.6 0.0-1.0 % Imm Gran% .4 .0-.4 % Neutro Abs 4.45 .80-7.70 Absolute Neutrophil Count 4450 NA Lymph Abs 2.47 .10-4.10 Mineral Abs .49 .20-1.00 Eos Abs .21 .00-.40 Baso Abs .05 .00-.20 Imm Gran Abs .03 .00-.10 NRBC# .00 .00-.20 X10'3 NRBC% .00 .00-.20 /100 intact WBC's MRI Cervical Spine w/o Cont- 65416 (Not yet reviewed by provider) Interpretation: Performing Lab: Notes/Report: See Below For Report MRI Cervical Spine w/o Cont Diagnosis Description: Radiculopathy, cervical region Read See Below For Report MRI Cervical Spine w/o Cont- 18248 (Not yet reviewed by provider) Interpretation: Performing Lab: Notes/Report: [id number]=iSite XR Outside CD (Not yet revie wed by provider) Interpretation: Performing Lab: Notes/Report: [id number]&org=iSite [id number] 54599 Reviewed date:06/04/2024 04:08:43 PM Interpretation: Performing Lab: Notes/Report: [id number] 81 NA WBG was per formed at [facility] under CLIA# [id number]. POCT-WBG Performed By Mina MOISE Schedule Confirmation [...] to be do ne at [facility] Diagnosis 1 Cervical radiculopat hy (M54.12) Referral Organization [facility] [place] Referring Provider First Name Leslee Referring Provider Last Name Dimitrios Referring Provider Speciality Neurosurge ry Referral Priority Routine Reason Eval and Treat Diagnosis 1 Chronic pain (G89.29 ) Referring Provider First Name Michelle Referring Provider Last Name Trisha Referring Provider Speciality Nurse Prac titioner Referred Organization [facility] Referred Provider Heber Torres Referred Address [address] [facility],[address] Referred Provider Specialty Pain Medicin e General [...] a day Not-Taking Sodium Chloride Acti ve [place] Carbonate ER 450 MG Tablet Extended Release [...] Date Status Comme nts Influenza (whole), CPT 55008 Inactive Unknown 06/02/2017 Administered Influenza (whole), CPT 11175 Inactive Unknown 06/18/2016 Administered Social History Tobacco [...] Problem Chronic kidney disease due to hypertension (987739420435719) Hypertensive chronic kidney disease with stage 1 through stage 4 chronic kidney disease, or unspecified chronic kidney disease (I12.9) Active confirmed Problem Essential hypertension (49684043) HTN (hypertension), benign (I10) Active confirmed Problem Cervical radiculopathy (50839640) Cervical radiculopathy (M54.12) Active confirmed Problem Neck pain (63290816) Neck pain (M54.2) Active confirmed Problem Type II diabetes mellitus without complication (415466206) Diabetes (E11.9) Active confirmed Problem History of polyp of colon (situation) (158700461) History of colon polyps (Z86.010) Active confirmed Problem Chronic renal failure syndrome (02521957) Chronic kidney disease, unspecified CKD stage (N18.9) Active confirmed Problem Chronic gouty arthritis (13431142) Chronic gout without tophus, unspecified cause, unspecified site (M1A.9XX0) Active confirmed Problem Chronic pain (16948665) Chronic pain (G89.29) Active confirmed Problem Cervical spinal stenosis (53713916) Cervical spinal stenosis (M48.02) Active confirmed Problem Diabetic renal disease (027775123) Type 2 diabetes mellitus with diabetic nephropathy, 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.] 04/05/2025 Encounters Encounter Location Date Provider Diagnosis [facility] [address] [place] [address] 05/30/2024 Eyad Valladares [facility] [address] 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 [place] [address] 07/03/2024 Leslee Plunkett Cervical radiculopathy M54.12 ; Neck pain M54.2 ; Cervical spinal stenosis M48.02 and Arthrodesis present Z98.1 [facility] [address] [place] [address] [address] [place] [address] 07/09/2024 Brant Miller Hypertensive chronic kidney disease with stage 1 through stage 4 chronic kidney disease, or unspecified chronic kidney disease I12.9 ; Chronic kidney disease, stage 3a N18.31 ; HTN (hypertension), benign I10 ; Chronic gout without tophus, unspecified cause, unspecified site M1A.9XX0 ; Hematuria, unspecified type R31.9 ; Hypokalemia E87.6 and Pharmacologic therapy Z79.899 [facility] [address] [place] [address] 07/20/2024 Eyad Valladares Status post arthroscopy of left shoulder Z98.890 [facility] [address] [place] [address] 08/31/2024 Eyad Valladares Status post arthroscopy of left shoulder Z98.890 [facility] [place] [address] [place] [address] 09/04/2024 Estuardo Moses Cervical radiculopathy M54.12 ; Neck pain M54.2 ; Cervical spinal stenosis M48.02 and Arthrodesis present Z98.1 [facility] [address] [place] [address] [address] [place] [address] 04/05/2025 Keke Arreaga Hypertensive chronic kidney disease with stage 1 through stage 4 chronic kidney disease, or unspecified chronic kidney disease I12.9 ; Chronic kidney disease, stage 3a N18.31 ; HTN (hypertension), benign I10 ; Chronic gout without tophus, unspecified cause, unspecified site M1A.9XX0 ; Hematuria, unspecified type R31.9 ; Hypokalemia E87.6 and Pharmacologic therapy Z79.899 [facility] [address] [place] [address] 05/04/2024 Eyad Valladares Left shoulder pain, unspecified chronicity M25.512 [facility] [address] [place] [address] [place] [address] 05/15/2024 Keke Arreaga Hypertensive chronic kidney disease with stage 1 through stage 4 chronic kidney disease, or unspecified chronic kidney disease I12.9 ; Chronic kidney disease, stage 3a N18.31 and Chronic gout without tophus, unspecified cause, unspecified site M1A.9XX0 [facility] [address] [place] [address] 05/31/2024 Eyad Valladares [facility] [address] [place] [address] [place] [address] 06/20/2024 Keke Arreaga Chronic kidney disease, stage 3a N18.31 [facility] Nephrology [address] [place] [address] 07/05/2024 Keke Arreaga [facility] [address] [place] [address] [place] [address] 01/09/2025 Brant Miller Chronic kidney disease, stage 3a N18.31 ; Hypertensive chronic kidney disease with stage 1 through stage 4 chronic kidney disease, or unspecified chronic kidney disease I12.9 ; HTN (hypertension), benign I10 ; Hematuria, unspecified type R31.9 ; Chronic gout without tophus, unspecified cause, unspecified site M1A.9XX0 and Pharmacologic therapy Z79.899 [facility] Ne[facility] [address] [place] [address] 01/14/2025 Brant Miller [facility] [address] [place] [address] [place] [address] 02/11/2025 [facility] [address] [place] [address] [place] [address] 02/13/2025 Thania [facility] [address] [place] [address] [place] [address] 03/04/2025 Brant Miller Chronic kidney disease, stage [...] Treatment Notes Treatment Clinical Notes Section Notes 05/04/2024 Left shoulder pain, unspecified chronicity (ICD-10 [...] unspecified chronic kidney disease (ICD-10 - I12.9) 06/08/2024 Status post arthroscopy of left shoulder [...] kidney disease, stage 3a (ICD-10 - N18.31) 07/03/2024 Cervical radiculopathy (ICD-10 - M54.12) 07/03/2024 [...] kidney disease (ICD-10 - I12.9) CKD is stable. Hypertension is uncontrolled and is exacerbated by pain.She also has issues with hypotension, possible autonomic dysfunction Gout is controlled. Hematuria is not detected. Hypokalemia has resolved. 04/05/2025 Chronic kidney disease, stage 3a (ICD-10 - N18.31) CKD is stable. Hypertension is uncontrolled and is exacerbated by pain.She also has issues with hypotension, possible autonomic dysfunction Gout is controlled. Hematuria is not detected. Hypokalemia has resolved. 04/05/2025 HTN (hypertension), benign (ICD-10 - I10) High Blood Pressure: Care Instructions material was printed CKD is stable. Hypertension is uncontrolled and is exacerbated by pain.She also has issues with hypotension, possible autonomic dysfunction Gout is controlled. Hematuria is not detected. Hypokalemia has resolved. 03/04/2025 Hypertensive chronic kidney disease with stage [...] HTN (hypertension), benign (ICD-10 - I10) 04/05/2025 Chronic gout without tophus, unspecified cause, unspecified site (ICD-10 - M1A.9XX0) CKD is stable. Hypertension is uncontrolled and is exacerbated by pain.She also has issues with hypotension, possible autonomic dysfunction Gout is controlled. Hematuria is not detected. Hypokalemia has resolved. 04/05/2025 Hematuria, unspecified type (ICD-10 - R31.9) CKD is stable. Hypertension is uncontrolled and is exacerbated by pain.She also has issues with hypotension, possible autonomic dysfunction Gout is controlled. Hematuria is not detected. Hypokalemia has resolved. 03/04/2025 Hematuria, unspecified type (ICD-10 - R31.9) 01/09/2025 Hematuria, unspecified type (ICD-10 - R31.9) 07/09/2024 Hematuria, unspecified type (ICD-10 - R31.9) CKD is improved. Hypertension is controlled; hypertension is exacerbated by pain. Gout is controlled. Hematuria is not detected and hypokalemia has resolved 07/09/2024 Hypokalemia (ICD-10 - E87.6) CKD is improved. Hypertension is controlled; hypertension is exacerbated by pain. Gout is controlled. Hematuria is not detected and hypokalemia has resolved 01/09/2025 Chronic gout without tophus, unspecified cause, unspecified site (ICD-10 - M1A.9XX0) 03/04/2025 Chronic gout without tophus, unspecified cause, unspecified site (ICD-10 - M1A.9XX0) 04/05/2025 Hypokalemia (ICD-10 - E87.6) CKD is stable. Hypertension is uncontrolled and is exacerbated by pain.She also has issues with hypotension, possible autonomic dysfunction Gout is controlled. Hematuria is not detected. Hypokalemia has resolved. 04/05/2025 Pharmacologic therapy (ICD-10 - Z79.899) CKD is stable. Hypertension is uncontrolled and is exacerbated by pain.She also has issues with hypotension, possible autonomic dysfunction Gout is controlled. Hematuria is not detected. Hypokalemia has resolved. 03/04/2025 Pharmacologic therapy (ICD-10 - Z79.899) 01/09/2025 Pharmacologic therapy (ICD-10 - Z79.899) 07/09/2024 Pharmacologic [...] with in 6 months with labs at [facility] 5 to 10 days prior to appointment. [...] and it is both accurate and complete. 04/05/2025 Other Continue current antihypertensives and monitor blood pressure daily with goal blood pressure less than 130/80, but greater than 100/50. Strongly recommend that she record her pain scale her blood pressure log. Low Sodium diet. Dose medications for GFR less than 60 mL/minute. Avoid nephrotoxins and NSAIDs. Stay well hydrated. Risk factor modification. Monitor hyperparathyroidism labs and microalbuminuria status. Follow-up with in 6 months with labs at [facility] 5 to 10 days prior to appointment. BMP, mag, uric, phos, PTH, UA, microalbumin, creatinine The patient was instructed to follow up with their PCP for preventative health screenings. CKD is stable. Hypertension is uncontrolled and is exacerbated by pain.She also has issues with hypotension, possible autonomic dysfunction Gout is controlled. Hematuria is not detected. Hypokalemia has resolved. Plan Of Treatment Pending Test Test Name Order Date Shoulder 2V 05/04/2024 Albumin 55358 06/20/2024 Prothrombin Time 55761 12/10/2022 ABORh 35644, 48277 12/10/2022 Antibody Screen 99903 12/10/2022 Giardia/Cryptosporidium Screen 82127, 87 329 05/13/2022 Basic Metabolic Panel (BMP) 18049 2022 Basic Metabolic Panel (BMP) 21841 2023 Basic Metabolic Panel (BMP) 13903 2024 Basic Metabolic Panel (BMP) 69620 2022 CBC w\ Auto Diff 37522 05/13/2022 CBC w\ Auto Diff 56757 12/10/2022 Comprehensive Metabolic Panel (CMP) 8005 3 05/13/2022 Hemoglobin 94082 06/20/2024 Magnesium (B) 88070 06/20/2024 Magnesium (B) 60523 01/09/2025 Metanephrines Fractionated (U) 24 Hr 838 35 09/29/2022 Partial Thromboplastin Time 48095 2022 Phosphorus (B) 82211 01/09/2025 Phosphorus (B) 08554 06/20/2024 Protein (U) Random 61766 06/20/2024 Sedimentation Rate 47384 05/13/2022 Uric Acid (B) 89278 06/20/2024 Uric Acid (B) 96252 01/09/2025 Uric Acid (B) 32633 03/04/2025 CBC Reflex Man Diff 99106, 12878 023 Microalbumin (U) Random 40673 01/09/2025 Creatinine (U) 92582 01/09/2025 Creatinine (U) 37325 06/20/2024 Catecholamines (U) 24hr 79252 09/29/2022 UA Reflex Micro, Reflex Cult 52633, 8101 5, 44249 07/05/2024 UA Reflex Micro, Reflex Cult 19601, 8101 5, 19445 06/20/2024 UA Reflex Micro, Reflex Cult 56793, 8101 5, 03954 01/09/2025 Metanephrines Plasma Free 22075 09/29/19 PTH Intact 72016 01/09/2025 Calprotectin Fecal 15314 05/13/2022 Cervical Spine AP/Lat 2-3 Views-50927 Cervical Spine AP/Lat 2-3 Views-73264 Chest PA/Lat-79631 12/13/2022 CT Abdomen, Pelvis w/o Contrast-77414 MRI Cervical Spine w/o Cont-36011 2023 MRI Cervical Spine w/o Cont-18885 2023 XR Outside CD 06/08/2024 Glucometer WBG--52459 12/22/2022 Glucometer WBG--86227 12/22/2022 WBC Auto Diff--36512 12/22/2022 BB ABORH-68517,80853 12/13/2022 zzzFluoro >1h4 12/22/2022 zzzCT Outside CD 11/29/2022 zzzMRI Outside CD 03/23/2022 Diagnostic Colonoscopy-69541 05/13/2022 EGD, Upper GI Diagnostic-47796 Schedule Confirmation 07/23/2024 Schedule Confirmation 07/23/2024 Schedule Confirmation 08/04/2024 Schedule Confirmation 08/04/2024 Basic Metabolic Panel (BMP) 84277 2023 Magnesium (B) 68614 12/15/2023 Phosphorus (B) 97322 12/15/2023 Uric Acid (B) 07364 12/15/2023 UA Reflex Micro, Reflex Cult 28361, 8101 5, 51742 12/15/2023 UA Reflex Micro, Reflex Cult 16318, 8101 5, 08192 12/26/2023 Albumin 93852 05/15/2024 Basic Metabolic Panel (BMP) 86463 2023 Hemoglobin 74334 05/15/2024 Magnesium (B) 42510 05/15/2024 Phosphorus (B) 23168 05/15/2024 Protein (U) Random 89766 05/15/2024 Uric Acid (B) 88359 05/15/2024 Creatinine (U) 93016 05/15/2024 UA Reflex Micro, Reflex Cult 68615, 8101 5, 41486 05/15/2024 PTH Intact 59672 05/15/2024 Magnesium (B) 91774 03/04/2025 Phosphorus (B) 25268 03/04/2025 Microalbumin (U) Random 85382 03/04/2025 Creatinine (U) 23397 03/04/2025 UA Reflex Micro, Reflex Cult 87982, 8101 5, 15397 03/04/2025 PTH Intact 62318 03/04/2025 Basic Metabolic Panel (BMP) 13673 2024 Future Test Test Name Order Date Albumin 70124 09/29/2025 Basic Metabolic Panel (BMP) 93842 2025 Hemoglobin 40637 09/29/2025 Magnesium (B) 81284 09/29/2025 Phosphorus (B) 62302 09/29/2025 Uric Acid (B) 33852 09/29/2025 Vitamin D Total (B) 00239 09/29/2025 Microalbumin (U) Random 94041 09/29/2025 Creatinine (U) 97290 09/29/2025 UA Reflex Micro, Reflex Cult 78591, 8101 5, 11513 09/29/2025 PTH Intact 13973 09/29/2025 Next Appt Details Provider Name:Qasim Donis, 05/22/2025 10:20:00 AM, [address] [place], [address], Provider Name:Keke rodriguez, 10/04/2025 11:00:00 AM, [address] [place] [address] Darian Esquivel [address], [place], [address], Insurance Providers Payer Name Payer Address Payer Phone Subscriber Number Group Number Insured Name Patient Relationship to Insured Coverage Start Date Coverage End Date [employer] [address] [address] [place] [phone] [id number] Dennis Garcia Spouse - patient is the [...]
--- OUTSIDE RECORDS SUMMARY | 2025-04-23 10:21 | XMS_ITS | Clinical Summary ---
Author Organization [facility] Address [address] [place] [address] Care Team Providers Care Bilingual Speech Language Pathologist Name Role Phone Michelle Rico 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 Pulse 66 10/06/2021 10:44 AM STAFF [employer] DEFENSE OFFICER Temperature 36.8 C (98.3 F) 12/15/2020 3:15 PM CDT Respiratory Rate - - Oxygen Saturation - - Inhaled Oxygen Concentration - - Weight 104 kg (229 lb 12.8 oz) 10/06/2021 10:44 AM STAFF [employer] DEF[employer] OFFICER Height 165.1 cm (5' 5 ) 10/06/2021 10:44 AM STAFF [employer] DEFENSE OFFICER Body Mass Index 38.24 10/06/2021 10:44 AM STAFF [employer] DEFENSE OFFICER Plan of Treatment Health Maintenance Due Date Last Done Comments Hepatitis B Vaccine (1 of 3 - 19+ 3-dose series) 02/09 Pneumococcal Vaccine: Peds ( 0 to 5 Years) and At-Risk Patients (6 to 49 Years) (1 of 2 - PCV) 1997 Influenza Vaccine (#1) 2025 06/04/[address] [facility] Care Teams Bilingual Speech Language Pathologist Relationship Specialty Start Date End Date Michelle Rico FNP [address] [place] PCP - General 09/26/19
--- OUTSIDE RECORDS SUMMARY | 2025-04-23 10:21 | XMS_ITS | Encounter Summary ---
Author Organization [facility] Address [address] [place] [address] Care Team Providers Care Shredder Tender Name Role Phone Non-Staff, Physician Primary Care Provider Unava ilable Encounter Details Date Type Department Care Team (Latest Contact Info) Description 05/27/2003 Outpatient Historical [facility] SoteroShaheen MD [address] [address] SURGERY FOLLOWUP, UNSPEC (Primary Dx) Social History Tobacco Use Types Packs/Day Years Used Date Smoking Tobacco: Never Assessed Comments Unknown Sex and Gender Information Value Date Recorded Sex Assigned at Not on file 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
--- OUTSIDE RECORDS SUMMARY | 2025-04-23 10:21 | XMS_ITS | Encounter Summary ---
Author Organization [facility] Address [address] [place] [address] Care Team Providers Care Interior Design Director Name Role Phone Non-Staff, Physician Primary Care Provider Unava ilable Encounter Details Date Type Department Care Team (Late st Contact Info) Description 03/22/2006 Outpatient Historical HIS CANCELLED ADMISSION Quinten Aviles MD [address] [place] [address] Dr [address] [place] [phone] Social History Tobacco Use Types Packs/Day Years Used Date Smoking Tobacco: Never Assessed Comments Unknown Sex and Gender Information Value Date Recorded Sex Assigned at Not on file 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
--- OUTSIDE RECORDS SUMMARY | 2025-04-23 10:21 | XMS_ITS | Encounter Summary ---
Author Organization [facility] Address [address] [place] [address] Care Team Providers Care Security Strategist Name Role Phone Non-Staff, Physician Primary Care Provider Unava ilable Encounter Details Date Type Department Care Team (Latest Contact Info) Description 03/09/2006 Outpatient Historical [facility] Gastroenterology- [place] 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
--- OUTSIDE RECORDS SUMMARY | 2025-04-23 10:21 | XMS_ITS | Encounter Summary ---
Author Organization [facility] Address [address] [place] [address] Care Team Providers Care Labor Expediter Name Role Phone Non-Staff, Physician Primary Care Provider Unava ilable Encounter Details Date Type Department Care Team (Late st Contact Info) Description 03/28/2006 Outpatient Historical [facility] ADMISSION Quinten Aviles MD [address] [place] [address] Dr [address] [place] [phone] Social History Tobacco Use Types Packs/Day Years Used Date Smoking Tobacco: Never Assessed Comments Unknown Sex and Gender Information Value Date Recorded Sex Assigned at Not on file 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
--- OUTSIDE RECORDS SUMMARY | 2025-04-23 10:21 | XMS_ITS | Clinical Summary ---
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 Gender Identity Female 07/04/2018 10:38 AM HAT FORMING MACHINE FEEDER Sexual Orientation Straight 10/04/2023 7: 11 PM HAT FORMING MACHINE FEEDER Obstetrics History Last Filed Vital Signs Vital Sign Reading Time Taken Comments Blood Pressure 194/105 02/24/2024 2:37 PM CDT Pulse 102 02/24/2024 2:37 PM CDT Temperature 36.6 C (97.8 F) 07/04/2018 10:50 AM HAT FORMING MACHINE FEEDER Respiratory Rate - - Oxygen Saturation 97% [...] patient's age to complete this topic Insurance [facility] CHOICE [facility] HMO/PPO Address: [address] [place] [id number] [facility] CHOICE PLUS [facility] HMO/PPO Address: [address] [place] [id number] Care Teams Spinner Frame Relationship Specialty Start Date End Date Michelle Rico NP [address] [place] [address] PCP - General 02/13/19
--- OUTSIDE RECORDS SUMMARY | 2025-04-23 10:21 | XMS_ITS | Encounter Summary ---
Author Organization [facility] Address [address] [place] [address] Care Team Providers Care Stretch Machine Operator Name Role Phone Non-Staff, Physician Primary Care Provider Unava ilable Encounter Details Date Type Department Care Team (Latest Contact Info) Description 01/19/2006 Outpatient Historical [facility] Gastroenterology- [place] [address] [facility] [address] [place] [address] Quinten Aviles MD [facility] [address] [facility] [address] [place] [address] Anal Fissure (Primary Dx); Irritable Bowel Syndrome Social History Tobacco Use Types Packs/Day Years Used Date Smoking Tobacco: Never Assessed Comments Unknown Sex and Gender Information Value Date Recorded Sex Assigned at Not on file Legal 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
--- OUTSIDE RECORDS SUMMARY | 2025-04-23 10:21 | XMS_ITS | Encounter Summary ---
Author Organization [employer] [facility] Address [address] [place] [address] Phone Care Team Providers Care Fence Erector Supervisor Name Role Phone Michelle Rico Primary Care Provider [phone] Encounter Details Date Type Department Care Team (Late st Contact Info) Description 05/24/2019 Orders Only [facility] [address] [place] [address] Chronic kidney disease, stage 3 [...] Hypertension documented in this encounter Care Teams Fence Erector Supervisor Relationship Specialty Start Date End Date Michelle Rico FNP [address] [place] PCP - General 09/26/19 documented as of this encounter
--- OUTSIDE RECORDS SUMMARY | 2025-04-23 10:21 | XMS_ITS | Encounter Summary ---
Author Organization [facility] Address [address] [place] [address] Care Team Providers Care Health Coordinator Name Role Phone Non-Staff, Physician Primary Care Provider Unava ilable Encounter Details Date Type Department Care Team (Latest Contact Info) Description 06/03/2003 Outpatient Historical [facility] SoteroShaheen MD [address] [address] SURGERY FOLLOWUP, UNSPEC (Primary Dx) Social History Tobacco Use Types Packs/Day Years Used Date Smoking Tobacco: Never Assessed Comments Unknown Sex and Gender Information Value Date Recorded Sex Assigned at Not on file Legal 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
--- OUTSIDE RECORDS SUMMARY | 2025-04-23 10:21 | XMS_ITS | Encounter Summary ---
Author Organization [facility] Address [address] [place] [address] Care Team Providers Care Airport Traffic Controller Name Role Phone Non-Staff, Physician Primary Care Provider Unava ilable Encounter Details Date Type Department Care Team (Latest Contact Info) Description 03/10/2006 Outpatient Historical [facility] Cardiovascular Services [address] [place] [address] [place] [address] Jeniffer Bronson MD [address] [facility] [address] [place] [address] Syncope and Collapse (Primary Dx) Social History Tobacco Use Types Packs/Day Years Used Date Smoking Tobacco: Never Assessed Comments Unknown Sex and Gender Information Value Date Recorded Sex Assigned at Not on file 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
--- NOTE | 2025-04-23 10:34 | XR_ITS ---
WS: [id number] Exam: XR chest 1V portable [id number] Date/Time of Exam: 04/23/2025 10:36 AM Reason For Exam: chest pain Comparison 04/18/2025. The lungs are clear. Normal cardiomediastinal silhouette and regional bony structures. No pleural effusion. Fusion hardware in the C-spine. XR/XR chest 1V portable [id number] IMPRESSION: 1. Negative chest.
--- NOTE | 2025-04-23 10:34 | ECG_ITS ---
[facility]: 2025-04[facility]23 Pat Name: Nina Garcia Department: Room: Gender: Female Packager: : 1980 Requested By: Sarah Jackman Order Number: [id number] Chan MD: Reese Meraz M.D. Measurements Intervals [place] Rate: 129 P: 62 MS: 143 QRS: 94 QRSD: 78 T: 48 QT: 276 QTc: 405 Interpretive Statements SINUS TACHYCARDIA BORDERLINE RIGHT AXIS DEVIATION [QRS AXIS > 90] ABNORMAL RHYTHM ECG Compared to ECG 04/18/2025 04:20:48 T-wave abnormality no longer present Electronically Signed On 04-23-2025 18:10:58 CDT by Reese Meraz M.D. [email or web address]
--- NOTE | 2025-04-23 10:35 | W.ED.CHESTPA ---
HPI - Chest Pain General: Chief Complaint: Chest Pain Stated Complaint: chest pain headachs Time Seen by Provider: 04/23/25 10:29 History of Present Illness: 45-year-old female with a history of hypertension, labile blood pressures, chronic pain syndrome, hypothyroidism, migraine headaches who presents to the emergency room with a headache and hypertension. She says she has been vomiting since 8 this morning and could not get any of her medications down. She has a migraine which is typical for her. She is having central chest pain that radiates into her back. She has no known cardiac history. Related Data Home Medications ?Medication ?Instructions ?Recorded ?Confirmed ondansetron 8 mg disintegrating 8 mg PO Q8H PRN Nausea And Vomiting 12/09/21 04/18/25 tablet allopurinol 300 mg tablet 300 mg PO QAM 11/25/22 04/18/25 hydromorphone 4 mg tablet 4 mg PO Q4H PRN chronic pain 05/14/24 04/18/25 (Dilaudid) tizanidine 4 mg tablet 8 mg PO QID 03/15/25 04/18/25 prednisone 5 mg tablet 7.5 mg PO DAILY 04/18/25 04/18/25 zolpidem 10 mg tablet 10 mg PO BEDTIME 04/18/25 04/18/25 Previous Rx's ?Medication ?Instructions ?Recorded promethazine 25 mg rectal 25 mg IL Q6H PRN nausea and 09/30/23 suppository vomiting #12 ea lurasidone 120 mg tablet 120 mg PO DAILY #30 tabs 08/16/24 lamotrigine 200 mg tablet 200 mg PO QAM #30 tabs 11/09/24 lithium carbonate 150 mg capsule 150 mg PO QAM #30 caps 01/10/25 lithium carbonate 300 mg capsule 300 mg PO .qhs #30 caps 01/10/25 lorazepam 2 mg tablet See Rx Instructions PO .COMPLEX 02/25/25 #60 tabs semaglutide 0.25 mg or 0.5 mg (2 0.25 mg (0.368 mL) SUBCUT Q7D 1 03/15/25 mg/3 mL) subcutaneous pen injector month #1.84 mL (Ozempic) doxazosin 1 mg tablet 1 mg PO Q8H 60 days #180 tabs 04/19/25 fludrocortisone 0.1 mg tablet 0.2 mg (2 x 0.1 mg) PO DAILY 90 04/19/25 days #90 tabs metoprolol tartrate 25 mg tablet 12.5 mg (1/2 x 25 mg) PO 04/19/25 BID@0900,2100 90 days #90 tabs Allergies Allergy/AdvReac Type Severity Reaction Status Date / Time midodrine Allergy Intermediate ALGY-Rash Verified 04/18/25 01:49 aspirin Allergy due to BUN Verified 04/18/25 01:49 levels coconut Allergy hives Verified 04/18/25 01:49 ketorolac (From Toradol) Allergy hives Verified 04/18/25 01:49 meloxicam (From Mobic) Allergy hives Verified 04/18/25 01:49 NSAIDS (Non-Steroidal Allergy Unknown Verified 04/18/25 01:49 Anti-Inflamma Review of Systems Narrative: Constitutional symptoms: Negative except as documented in HPI. Skin symptoms: Negative except as documented in HPI. Eye symptoms: Negative except as documented in HPI. ENMT symptoms: Negative except as documented in HPI. Respiratory symptoms: Negative except as documented in HPI. Cardiovascular symptoms: Negative except as documented in HPI. Gastrointestinal symptoms: Negative except as documented in HPI. Genitourinary symptoms: Negative except as documented in HPI. Musculoskeletal symptoms: Negative except as documented in HPI. Neurologic symptoms: Negative except as documented in HPI. Psychiatric symptoms: Negative except as documented in HPI. Endocrine symptoms: Negative except as documented in HPI. PFSH ED PFSH: Medical History (Updated 04/23/25 @ 12:58 by Sarah Johnson MD) Hypertensive urgency Chronic pain with drug dependence Postsurgical hypothyroidism Goiter Resistant hypertension GERD (gastroesophageal reflux disease) Nausea & vomiting CKD (chronic kidney disease) Hypothyroid Hypertensive urgency, malignant Pulmonary embolism Chest pain at rest Psychiatric care HLD (hyperlipidemia) DM2 (diabetes mellitus, type 2) Chronic back pain Chronic neck and back pain Post traumatic stress disorder (PTSD) Bipolar 1 disorder, depressed, full remission Hypertensive emergency Palpitation Malignant hypertension Chronic renal disease Generalized anxiety disorder Surgical History History of back surgery H/O esophagogastroduodenoscopy (08/12/20) H/O angioplasty History of colonoscopy with polypectomy (08/12/20) History of spinal fusion 10/01/2013- C5-6, ACDFF Dr. Villanueva H/O rectal polypectomy Status post hemilaminotomy 01/06/2012, right L5-S1, disectomy and foraminotomy per Dr. Villanueva History of suburethral sling procedure anterior colporrhapy augmentd with porcine graft, cystoscopy performed on 03/08/[address] Haley History of total hysterectomy 2000 Hx of cholecystectomy History of appendectomy History of bilateral oophorectomy 2011 H/O total thyroidectomy Family History Mother Diabetes Pancreatic cancer Ovarian cancer Father Diabetes Hypertension Stroke COPD (chronic obstructive pulmonary disease) Grandfather Hypertension maternal Heart disease maternal Grandmother Colon cancer maternal Social History Smoking and tobacco/nicotine status: unknown if used tobacco/nicotine Second hand smoke exposure: Yes Alcohol intake: never Substance/Drug Use: never Additional social history: well balanced diet Caregiver/support person: No Lives independently: Yes Household members: spouse Housing: House Marital status: Number of children: 8 Highest education level completed: GED or Equivalent service: No Current occupational status: unemployed Physical Exam Narrative: EXAM NARRATIVE: General: Alert, no acute distress. Skin: Warm, dry. Head: Normocephalic, atraumatic. Neck: Supple, trachea midline. Eye: Extraocular movements are intact. Ears, nose, mouth and throat: mucosa moist. Cardiovascular: Regular, tachycardic, normal peripheral perfusion. Respiratory: Lungs are clear to auscultation, respirations are non-labored, breath sounds are equal, Symmetrical chest wall expansion. Gastrointestinal: Soft, Nontender, Non distended Musculoskeletal: Normal ROM, no deformity. Neurological: Alert and oriented, No focal neurological deficit observed. Psychiatric: Cooperative, appropriate mood & affect. Course Vital Signs: Vital signs: Vital Signs Temperature 98.6 F 04/23/25 10:29 Pulse Rate 85 04/23/25 12:37 Respiratory Rate 18 04/23/25 12:37 Blood Pressure 214/130 04/23/25 12:37 Pulse Oximetry 96 04/23/25 12:37 Oxygen Delivery Me thod Room Air 04/23/25 12:24 MDM - Chest Pain Medical Decision Making Differential diagnosis for patient with chest pain includes but is not limited to and based on the above HPI, review of systems and physical exam: Pneumonia. unstable angina. angina. Acute coronary syndrome / [place]. Pulmonary embolism. Costochondritis / musculoskeletal. Pleurisy. Pericarditis. Esophageal spasm. Pancreatis. Cholecystitis. Orders placed to evaluate differential diagnosis based on the above differential, HPI and physical exam EKG: Time 10:17 AM. Rate 129. Sinus tachycardia, No ST-T changes, no ectopy, normal IL & QRS intervals, This was reviewed and interpreted by myself the ER physician at 10:21 AM Lab Review: Laboratory results were reviewed and interpreted by myself the emergency room physician. Mild leukocytosis. No anemia. Mild renal insufficiency. Her creatinine usually is around 1.1 and is 1.5 today. Urine appears a bit concentrated and not a very clean-catch. She does have some bacteria but minimal white cells. Initial troponin is negative. proBNP is negative as well. I reviewed the patient's medical record. Reexamination: After multiple different attempts at different methods of treating her symptoms patient still is having severe nausea and her blood pressure is even higher than when she started. She had requested that Norflex and Compazine be pushed at the exact same time and that might help. She has received both of those but at about 15 minutes apart. She received labetalol. Starting a Cardene drip with the level of her blood pressure elevation. Also have attempted treatment of a migraine with a combination of Compazine Benadryl Zofran and Norflex. Consultation: I spoke with Dr. Menard who is on-call for the hospitalist service who agrees to admission. Assessment and plan: Accelerated hypertension Intractable nausea and vomiting Tachycardia Dehydration Acute renal insufficiency Migraine headache ?Patient has received initially Zofran and labetalol. Then Compazine and Benadryl and she had some brief improvement in her blood pressure and her heart rate has come down from the 120s down to the 80s. Also attempted Norflex as she says this helps with her nausea. Now initiating a Cardene drip as her blood pressure has gone even higher. 500 mL liter normal saline bolus is given as well. -I discussed the patient with the hospitalist on-call who is admitting the patient. - Discussed findings and plan with patient. Answered any questions. - All laboratory values were reviewed and interpreted personally by myself, the ER physician - All imaging was reviewed and interpreted personally by myself, the ER physician. - Evaluation and treatment of this problem were appropriate in the emergency setting Lab Data 04/23/25 10:42 04/23/25 10:42 Radiology Impressions Chest X-Ray 04/23/25 10:34 IMPRESSION: 1. Negative chest. Laboratory Results WBC 12.85 10^3/uL (3.29-11.43) H 04/23/25 10:42 RBC 5.77 10^6/uL (3.85-5.65) H 04/23/25 10:42 Hgb 15.60 g/dL (11.27-16.99) 04/23/25 10:42 Hct 49.4 % (36-47) H 04/23/25 10:42 MCV 85.6 fl (85-98) 04/23/25 10:42 MCH 27.0 pg (27-33) 04/23/25 10:42 MCHC 31.6 g/dL (30-55) 04/23/25 10:42 RDW 13.7 % (12.1-15.1) 04/23/25 10:42 Plt Count 332 10^3/cmm (157-399) 04/23/25 10:42 MPV 12.2 fL (7.4-10.4) H 04/23/25 10:42 Neut % (Auto) 76.3 % 04/23/25 10:42 Lymph % (Auto) 14.6 % 04/23/25 10:42 [place] % (Auto) 6.5 % 04/23/25 10:42 Eos % (Auto) 0.5 % 04/23/25 10:42 Baso % (Auto) 0.7 % 04/23/25 10:42 Neut # (Auto) 9.81 10^3/uL (1.8-7.7) H 04/23/25 10:42 Lymph # (Auto) 1.9 10^3/uL (0.8-4.8) 04/23/25 10:42 [place] # (Auto) 0.8 10^3/uL (0.2-0.9) 04/23/25 10:42 Eos # (Auto) 0.1 10^3/uL (0.0-0.8) 04/23/25 10:42 Baso # (Auto) 0.1 10^3/uL (0.0-0.1) 04/23/25 10:42 Nucleated RBC % (auto) 0 % 04/23/25 10:42 Nucleated RBCs # 0.0 /100WBC 04/23/25 10:42 Sodium 136 mmol/L (136-145) 04/23/25 10:42 Potassium 4.6 mmol/L (3.5-5.1) 04/23/25 10:42 Chloride 98 mmol/L (98-107) 04/23/25 10:42 Carbon Dioxide 19 mmol/L (22-29) L 04/23/25 10:42 Anion Gap 23.6 (5-19) H 04/23/25 10:42 BUN 19 mg/dL (6-20) 04/23/25 10:42 Creatinine 1.5 mg/dL (0.5-0.9) H 04/23/25 10:42 GFR Calculation 37.2 mL/min (90-130) L 04/23/25 10:42 Glucose 149 mg/dL (65-115) H 04/23/25 10:42 Calculated Osmolality 287 mOsm/kg (285-295) 04/23/25 10:42 Calcium 10.6 mg/dL (8.5-10.5) H 04/23/25 10:42 Total Bilirubin 0.6 mg/dL (0.15-1.2) 04/23/25 10:42 AST 13 U/L (0-32) 04/23/25 10:42 ALT 19 U/L (0-33) 04/23/25 10:42 Alkaline Phosphatase 89 U/L (35-105) 04/23/25 10:42 Troponin T Baseline 10 ng/L (0-10) 04/23/25 10:42 Troponin T 120 Minute 10.75 ng/L (0-10) H 04/23/25 13:03 Delta Troponin T 0.75 ABS# (0-10) 04/23/25 13:03 NT-Pro-B Natriuret Pep 103 pg/mL (0-125) 04/23/25 10:42 Total Protein 9.3 g/dL (6.6-8.7) H 04/23/25 10:42 Albumin 5.7 g/dL (3.5-5.2) H 04/23/25 10:42 Globulin 3.6 g/dL (1.3-4.6) 04/23/25 10:42 Lipase 38 U/L (13-60) 04/23/25 10:42 Urine Color Dark yellow (Yellow) A 04/23/25 11:10 Urine Appearance Cloudy (CLEAR) A 04/23/25 11:10 Urine pH 5.0 (5-7) 04/23/25 11:10 Ur Specific [place] 1.033 (1.005-1.030) H 04/23/25 11:10 Urine Protein 3+ (Negative) A 04/23/25 11:10 Urine Glucose (UA) Negative (Normal) 04/23/25 11:10 Urine Ketones 1+ (Negative) H 04/23/25 11:10 Urine Blood Trace (Negative) A 04/23/25 11:10 Urine Nitrate Negative (Negative) 04/23/25 11:10 Urine Bilirubin Negative (Negative) 04/23/25 11:10 Urine Urobilinogen 1.0 mg/dL (Negative) 04/23/25 11:10 Ur Leukocyte Esterase Negative (Negative) 04/23/25 11:10 Urine RBC 3-5 /hpf (0-2) 04/23/25 11:10 Urine WBC 0-5 /hpf (0-5) 04/23/25 11:10 Ur Squamous Epith Cells 11-20 /hpf (0-5) H 04/23/25 11:10 Amorphous Sediment Not Reportable 04/23/25 11:10 Urine Bacteria 1+ /hpf (NONE) H 04/23/25 11:10 Hyaline Casts 46.74 /lpf 04/23/25 11:10 All radiology interpretation(s) finalized by discharge Discharge Plan Discharge Patient Disposition: Admitted As Inpatient Clinical Impression: Accelerated hypertension, Labile hypertension, Intractable nausea and vomiting, Migraine headache, Dehydration, Acute renal insufficiency Condition: Stable Coding Level of Care Code ED Armhole Feller Handstitching Machine for Ingrid Lindsay
[2025-04-23] MEDS: labetalol 5 mg/mL SDV 20mL 20 MG IVP (10:48)
[2025-04-23 10:49] LABS: Hematocrit 49.4 % (36-47); Hemoglobin 15.60 g/dL (11.27-16.99); Mean Corpuscular HGB Conc 31.6 g/dL (30-55); Mean Corpuscular Hemoglobin 27.0 pg (27-33); Mean Corpuscular Volume 85.6 fl (85-98); Nucleated Red Blood Cells % 0 %; Platelet Count 332 10^3/cmm (157-399); Red Blood Count 5.77 10^6/uL (3.85-5.65); White Blood Count 12.85 10^3/uL (3.29-11.43)
[2025-04-23] MEDS: ondansetron 2 mg/ML SDV 2 mL 8 MG IVP (10:49)
[2025-04-23] MEDS: acetaminophen 1,000 MG/100 ML PIGGYBACK 400 MG IV (10:49)
[2025-04-23 11:06] LABS: Troponin(5th) Baseline 10 ng/L (0-10)
[2025-04-23 11:21] LABS: Alanine Aminotransferase 19 U/L (0-33); Albumin Level 5.7 g/dL (3.5-5.2); Alkaline Phosphatase 89 U/L (35-105); Anion Gap 23.6 (5-19); Aspartate Amino Transferase 13 U/L (0-32); Blood Urea Nitrogen 19 mg/dL (6-20); Calcium 10.6 mg/dL (8.5-10.5); Carbon Dioxide 19 mmol/L (22-29); Chloride 98 mmol/L (98-107); Globulin 3.6 g/dL (1.3-4.6); Glucose 149 mg/dL (65-115); Lipase 38 U/L (13-60); NT Pro B Type Natriuretic Pept 103 pg/mL (0-125); Osmolality Calculated 287 mOsm/kg (285-295); Potassium 4.6 mmol/L (3.5-5.1); Sodium 136 mmol/L (136-145); Total Protein 9.3 g/dL (6.6-8.7)
[2025-04-23] MEDS: orphenadrine 30 mg/mL Inj 2 mL 60 MG IVP (11:31)
[2025-04-23] MEDS: diphenhydrAMINE 50 mg/mL SDV 1mL IVP (12:02)
[2025-04-23 12:11] LABS: Glucose Urine UA Negative (Normal); Nitrate Urine Negative (Negative)
[2025-04-23] MEDS: HYDROmorphone 0.5 MG/0.5 ML INJ 1 MG IVP (12:29)
[2025-04-23 12:33] LABS: Specific Gravity, Urine 1.033 (1.005-1.030)
--- NOTE | 2025-04-23 12:34 | ECG_ITS ---
[facility]25[facility]23 Pat Name: Nina Garcia Department: Room: Gender: Female Fitting Room Supervisor: : 1980 Requested By: Sarah Jackman Order Number: [id number] Chan MD: Reese Meraz M.D. Measurements Intervals [place] Rate: 76 P: 7 MT: 147 QRS: -34 QRSD: 100 T: 7 QT: 352 QTc: 397 Interpretive Statements SINUS RHYTHM WITH SINUS ARRHYTHMIA LEFT AXIS DEVIATION [QRS AXIS < -30] Compared to ECG 04/23/2025 10:17:05 Left-axis deviation now present Sinus tachycardia no longer present Heavy baseline artifacts; Need to repeat the study. Electronically Signed On 04-23-2025 18:15:31 CDT by Reese Meraz M.D. [id number]
[2025-04-23 12:35] LABS: UA Slide Review UA Slide Review Perf
--- NOTE | 2025-04-23 13:07 | CT_ITS ---
WS: [id number] CT HEAD TECHNIQUE: Noncontrast CT of the head obtained from the skullbase to the vertex. CLINICAL INFORMATION: htn COMPARISON: CT 04/18/2025 DLP: 1079.[address] scans at [facility] use at least one of these dose optimization techniques: automated exposure control; mA and/or kV adjustment per patient size (includes targeted exams where dose is matched to clinical indication); or iterative reconstruction. FINDINGS: No evidence of intracranial hemorrhage or mass effect. Ventricular system and basal cisterns are patent. No extra-axial fluid collections. No evidence of mass or mass effect. Tiny chronic lacunar infarct RIGHT cerebellum Paranasal sinuses and mastoid air cells are well aerated. .Normal visualized soft tissues. CT/CT head wo con* [id number] IMPRESSION: 1. No evidence of intracranial hemorrhage or mass effect. 2. No acute intracranial findings. Notified Sarah Johnson MD at 04/23/2025 1:52 PM.
[2025-04-23] MEDS: nicardipine 20 MG/200 ML PREMIX 50 MG IV (13:24)
[2025-04-23 13:26] LABS: Troponin 5 2HR 10.75 ng/L (0-10); Troponin 5 2HR Delta 0.75 ABS# (0-10)
--- NOTE | 2025-04-23 14:05 | PM.HP ---
Providers/Chief Complaint Admitting Physician: Timoteo Krueger MD Primary Care Provider: Michelle Rico Chief Complaint: chest pain headachs History of Present Illness As per the previous notes and the patient : Nina Garcia is a 45 year old female with a past medical history of hypertension, labile blood pressures, chronic pain, possible pheochromocytoma?, History of shock liver secondary to fluctuating blood pressures, on lithium, Lamictal, hypothyroidism, on weekly levothyroxine dosing through Dr. Toure, who presents to [facility] for headache/migraine. The patient was found to have high blood pressure that was difficult to control and was started on nicardipine drip with further titration and admission to ICU. the patient reported having increased headached with nausea and vomiting and was unable to take oral anti HTN medications. no fever, sob, chills, skin rash, LLE swellings. the patient was having chest heaviness without any diaphoresis. Trop were not significant upon checking. echo in 01/2025 did not show any signs of LV function compromise. she reported one episode of diarrhea without any blood. but no increase bowel motion or any abd pain The patient already had a history of labile blood pressures, adrenal insufficiency and hypothyroidism on IV levothyroxine that has been managed by the statistical programmer analyst. The patient also had a history of noncompliance to medications as per the retrospective notes and difficulty in understanding of her medications. Review of Systems General: Reports: 10 or more systems reviewed and unremarkable except in HPI and below Medications/Allergies Home Medications ?Medication ?Instructions ?Recorded ?Confirmed ?Last Taken ?Type ondansetron 8 mg disintegrating 8 mg PO Q8H PRN Nausea And Vomiting 12/09/21 04/23/25 04/22/25 History tablet allopurinol 300 mg tablet 300 mg PO QAM 11/25/22 04/23/25 04/22/25 History promethazine 25 mg rectal 25 mg TN Q6H PRN nausea and 09/30/23 04/23/25 04/22/25 Rx suppository vomiting #12 ea hydromorphone 4 mg tablet 4 mg PO Q4H PRN chronic pain 05/14/24 04/23/25 04/22/25 History (Dilaudid) lurasidone 120 mg tablet 120 mg PO DAILY #30 tabs 08/16/24 04/23/25 04/22/25 Rx lamotrigine 200 mg tablet 200 mg PO QAM #30 tabs 11/09/24 04/23/25 04/22/25 Rx lithium carbonate 150 mg capsule 150 mg PO QAM #30 caps 01/10/25 04/23/25 04/22/25 Rx lithium carbonate 300 mg capsule 300 mg PO .qhs #30 caps 01/10/25 04/23/25 04/22/25 Rx lorazepam 2 mg tablet See Rx Instructions PO .COMPLEX 02/25/25 04/23/25 04/22/25 Rx #60 tabs semaglutide 0.25 mg or 0.5 mg (2 0.25 mg (0.368 mL) SUBCUT Q7D 1 03/15/25 04/23/25 04/20/25 Rx mg/3 mL) subcutaneous pen injector month #1.84 mL (Ozempic) tizanidine 4 mg tablet 8 mg PO QID 03/15/25 04/23/25 04/22/25 History prednisone 5 mg tablet 7.5 mg PO DAILY 04/18/25 04/23/25 04/22/25 History zolpidem 10 mg tablet 10 mg PO BEDTIME 04/18/25 04/23/25 04/22/25 History doxazosin 1 mg tablet 1 mg PO Q8H 60 days #180 tabs 04/19/25 04/23/25 04/22/25 Rx fludrocortisone 0.1 mg tablet 0.2 mg (2 x 0.1 mg) PO DAILY 90 04/19/25 04/23/25 04/22/25 Rx days #90 tabs metoprolol tartrate 25 mg tablet 12.5 mg (1/2 x 25 mg) PO 04/19/25 04/23/25 04/22/25 Rx BID@0900,2100 90 days #90 tabs Allergies Allergy/AdvReac Type Severity Reaction Status Date / Time midodrine Allergy Intermediate ALGY-Rash Verified 04/18/25 01:49 aspirin Allergy due to BUN Verified 04/18/25 01:49 levels coconut Allergy hives Verified 04/18/25 01:49 ketorolac (From Toradol) Allergy hives Verified 04/18/25 01:49 meloxicam (From Mobic) Allergy hives Verified 04/18/25 01:49 NSAIDS (Non-Steroidal Allergy Unknown Verified 04/18/25 01:49 Anti-Inflamma PFSH Acute PFSH: Medical History (Updated 04/23/25 @ 12:58 by Sarah Johnson MD) Hypertensive urgency Chronic pain with drug dependence Postsurgical hypothyroidism Goiter Resistant hypertension GERD (gastroesophageal reflux disease) Nausea & vomiting CKD (chronic kidney disease) Hypothyroid Hypertensive urgency, malignant Pulmonary embolism Chest pain at rest Psychiatric care HLD (hyperlipidemia) DM2 (diabetes mellitus, type 2) Chronic back pain Chronic neck and back pain Post traumatic stress disorder (PTSD) Bipolar 1 disorder, depressed, full remission Hypertensive emergency Palpitation Malignant hypertension Chronic renal disease Generalized anxiety disorder Surgical History History of back surgery H/O esophagogastroduodenoscopy (08/12/20) H/O angioplasty History of colonoscopy with polypectomy (08/12/20) History of spinal fusion 10/01/2013- C5-6, ACDFF Dr. Villanueva H/O rectal polypectomy Status post hemilaminotomy 01/06/2012, right L5-S1, disectomy and foraminotomy per Dr. Villanueva History of suburethral sling procedure anterior colporrhapy augmentd with porcine graft, cystoscopy performed on 03/08/[address] Haley History of total hysterectomy 2000 Hx of cholecystectomy History of appendectomy History of bilateral oophorectomy 2011 H/O total thyroidectomy Family History Mother Diabetes Pancreatic cancer Ovarian cancer Father Diabetes Hypertension Stroke COPD (chronic obstructive pulmonary disease) Grandfather Hypertension maternal Heart disease maternal Grandmother Colon cancer maternal Social History Smoking and tobacco/nicotine status: unknown if used tobacco/nicotine Second hand smoke exposure: Yes Alcohol intake: never Substance/Drug Use: never Additional social history: well balanced diet Caregiver/support person: No Lives independently: Yes Household members: spouse Housing: House Marital status: Number of children: 8 Highest education level completed: GED or Equivalent service: No Current occupational status: unemployed Vitals/I&O/Wt Last Vital Signs Temp 98.6 F 04/23/25 10:29 Pulse 85 04/23/25 12:37 Resp 18 04/23/25 12:37 BP 214/130 04/23/25 12:37 Pulse Ox 96 04/23/25 12:37 O2 Del Method Room Air 04/23/25 12:24 04/22/25 04/23/25 04/23/25 22:59 06:59 14:59 Intake Total 1031.667 / 1031.667 Balance 1031.667 / 1031.667 Physical Exam Narrative: General: Alert oriented x3, lying comfortably at room air without any distress HEENT: Normocephalic, atraumatic, EOMI, breathing comfortably Cardio: Regular rate rhythm, normal S1-S2, no murmurs rubs gallops, JVD normal Respiratory: Good bilateral air entry, no wheezes no rhonchi appreciated GI: Abdomen soft, nontender, nondistended, normoactive bowel sounds present all 4 quadrants, Neuro: Cranial nerves II to XII intact, strength 5/5, sensation 5/5, no gross neurological deficit Behavior: Appropriate and cooperative Extremities: Pulses 2+, no edema, no cyanosis Skin: Visible skin intact, no rashes Data 04/23/25 10:42 04/23/25 10:42 A&P Assessment and plan 1. Acute renal insufficiency: 2. Migraine headache: 3. Accelerated hypertension: 4. Intractable nausea and vomitin. Nonadherence to medication: 6. At risk for polypharmacy: 7. Bipolar 1 disorder: 8. Acute kidney injury superimposed on CKD: Plan: - Patient has a history of labile blood pressures, is very sensitive to drips, CT head was negative, patient to start on nicardipine drip with slow titration, since her blood pressure was not being controlled - Previously, during the previous admission I called her statistical programmer analyst and mentioned about her BP lability is more related to adrenal insufficiency with loss of vascular tone with further non complaince of medications likely - Bridge oral antihypertensive medications with the nicardipine drip with doxazocin and later to add rest of the medications, not to normalise quickly her BP. - in case of any neurological deterioration, to do stat CT head - monitor renal functions, one bolus of 500ml RL. avoid Nacl or overhydration as BP can be uncontrolled - continue home medications for bipolar disease - endo to reach about her levothyroxien dose and management since she is on IV, nmonitor TSH - Continue prednisone 7.5 mg daily and hold hydrocortisone at the meantime considering high blood pressure - migraines headache to deal with adequate analgesia, prochlorperazine 10mg iv and dilaudid as needed for headache - Low-dose sliding scale for DM - monitor her vitals Diet: cardiac diet VTE: heparin 5000 bid PDMP PDMP Reviewed: Not Reviewed Attestations Medical Necessity Statement*: Nina Garcia's hospital stay will require greater than 2 midnights for for management of hypertensive emergency considering having high blood pressure with [place] Time Spent in Patient Care: 16 - 35 minutes (>than 50% of time spent in counselling and/or direct pt care on unit). Critical Care Time: The high probability of a clinically significant, sudden or life threatening deterioration, as referenced in this documentation, required my full and direct attention, intervention and personal management. The critical care time shown is in addition to time spent performing any reported separately billable procedures and includes the following: [x] Data and vital sign review and interpretation [x] Patient assessment, examination and intervention [x] Medication orders and management [x] Patient/Family updates as able [x] Care Coordination and Documentation. Critical Care Time (min): 35 Other Attestations: Patient condition has been discussed at length with the patient/family, I have independently reviewed the chart labs imaging and diagnostics and EKG. the goals of care and code status with the patient/family/NOK/legal sales representative jewelry, and documented accordingly. The patient/family has been informed about the current condition and further plan of care. Agreed with the plan of care and understood without any language barrier. This documentation was created by [employer] chemist physical software. Every effort was made to ensure accuracy of chemist physical. Any obvious errors or omissions should be clarified with the author of the document. Coding Level of Care Code Critical Care >/= 30 minutes Diagnoses Acute renal insufficiency N28.9 Migraine headache G43.909 Accelerated hypertension I10 Intractable nausea and vomiting R11.2 Nonadherence to medication Z91.148 At risk for polypharmacy Z91.89 Bipolar 1 disorder F31.9 Acute kidney injury superimposed on CKD N17.9; N18.9
[2025-04-23] MEDS: heparin 5,000 unit/mL INJ 1 mL 5000 UNIT SUBCUT (14:33)
[2025-04-23] MEDS: ondansetron 2 mg/ML SDV 2 mL 4 MG IVP (14:33)
[2025-04-23] MEDS: HYDROcodone-acetaminophen 5-325 mg Tablet 1 TAB PO ×2 (15:04→22:52)
--- NOTE | 2025-04-23 15:53 | ECG_ITS ---
[facility] Test Date: 2025-04[facility]23 Pat Name: Nina Garcia Department: Room: [facility] Gender: Female Portal Administrator: : 1980 Requested By: Sarah Jackman Order Number: [id number] Chan MD: Reese Meraz M.D. Measurements Intervals [place] Rate: 129 P: 55 DE: 108 QRS: 87 QRSD: 83 T: 30 QT: 304 QTc: 446 Interpretive Statements SINUS TACHYCARDIA WITH SHORT DE INTERVAL ABNORMAL RHYTHM ECG Compared to ECG 04/23/2025 12:55:16 Short DE interval now present Sinus rhythm no longer present Sinus arrhythmia no longer present Left-axis deviation no longer present Electronically Signed On 04-23-2025 18:13:37 CDT by Reese Meraz M.D. [id number]
[2025-04-23] MEDS: nicardipine 20 MG/200 ML PREMIX 100 MG IV (16:01)
[2025-04-23] MEDS: HYDROmorphone tab 2 MG TABLET 4 MG PO ×2 (16:02→20:04)
[2025-04-23 16:04] LABS: Thyroid Stimulating Hormone 9.47 uIU/mL (0.27-4.20)
[2025-04-23] MEDS: diphenhydrAMINE 50 mg/mL SDV 1mL 25 MG IVP (16:49)
[2025-04-23 17:32] LABS: Troponin 5 6HR 9.47 ng/L (0-10)
[2025-04-23 17:37] LABS: Troponin 5 6HR Delta -0.53 ng/L (0-12)
[2025-04-24] VITALS (89 sets, daily range): BP systolic 81–181; BP diastolic 58–145; PULSE 77–142; RESP 7–25; TEMP 36.4–36.7; O2SAT 93–98
[2025-04-24] MEDS: heparin 5,000 unit/mL INJ 1 mL 5000 UNIT SUBCUT ×2 (01:41→14:09)
[2025-04-24] MEDS: HYDROmorphone tab 2 MG TABLET 4 MG PO ×4 (02:58→17:16)
[2025-04-24 04:14] LABS: Hematocrit 42.2 % (36-47); Hemoglobin 13.20 g/dL (11.27-16.99); Mean Corpuscular HGB Conc 31.3 g/dL (30-55); Mean Corpuscular Hemoglobin 27.4 pg (27-33); Mean Corpuscular Volume 87.7 fl (85-98); Nucleated Red Blood Cells % 0 %; Platelet Count 276 10^3/cmm (157-399); Red Blood Count 4.81 10^6/uL (3.85-5.65); White Blood Count 10.20 10^3/uL (3.29-11.43)
[2025-04-24 04:37] LABS: Alanine Aminotransferase 14 U/L (0-33); Albumin Level 4.5 g/dL (3.5-5.2); Alkaline Phosphatase 65 U/L (35-105); Anion Gap 17.7 (5-19); Aspartate Amino Transferase 10 U/L (0-32); Blood Urea Nitrogen 21 mg/dL (6-20); Calcium 9.2 mg/dL (8.5-10.5); Carbon Dioxide 20 mmol/L (22-29); Chloride 100 mmol/L (98-107); Creatinine Clr Calc Pharmacy 62.2884; Globulin 3.5 g/dL (1.3-4.6); Glucose 100 mg/dL (65-115); Osmolality Calculated 281 mOsm/kg (285-295); Potassium 3.7 mmol/L (3.5-5.1); Sodium 134 mmol/L (136-145); Total Protein 8.0 g/dL (6.6-8.7)
[2025-04-24] MEDS: ondansetron 2 mg/ML SDV 2 mL 4 MG IVP ×2 (05:33→09:23)
[2025-04-24] MEDS: HYDROcodone-acetaminophen 5-325 mg Tablet 1 TAB PO (05:35)
[2025-04-24 08:53] LABS: Free T4 Free Thyroxine 1.19 ng/dL (0.82-1.77)
--- NOTE | 2025-04-24 11:23 | P.PN_ITS ---
Subjective 2 Subjective: She is having a headache. Feels her blood pressure is elevated this morning and was quite high at the time. Vitals/I&O/Wt Last Vital Signs Temp 98.1 F 04/24/25 07:45 Pulse 125 H 04/24/25 10:12 Resp 21 H 04/24/25 09:15 BP 150/96 04/24/25 09:15 Pulse Ox 97 04/24/25 10:12 O2 Del Method Room Air 04/24/25 10:12 04/23/25 04/24/25 04/24/25 22:59 06:59 14:59 Intake Total 903.916 / 1983.333 500 / 2484.333 Balance 903.916 / 1983.333 500 / 2484.333 Weight last 48 hrs Weight 97.885 kg Weight 98.883 kg Weight 98.883 kg Physical Exam 2 Const: COMMON NORMALS: patient oriented x3 and alert GENERAL APPEARANCE: c ooperative ORIENTATION/CONSCIOUSNESS: Yes awake HENMT: COMMON NORMALS: oropharynx normal Neck/C-Spine: COMMON NORMALS: no JVD Resp: COMMON NORMALS: normal respiratory effort and clear to auscultation bilaterally AUSCULTATION: clear to auscultation bilaterally Cardio: COMMON NORMALS: no JVD, regular rhythm, S1 normal heart sound present, S2 normal heart sound present and No murmurs present (Cardio) RATE: t achycardic RHYTHM: regular rhythm HEART SOUNDS: S1 normal heart sound present and S2 normal heart sound present GI: COMMON NORMALS: Normal to inspection, nondistended, normoactive bowel sounds present, Soft to palpation and non-tender PALPATION: Yes Soft to palpation Extremity: COMMON NORMALS: no joint enlargement and no pedal edema Neuro: COMMON NORMALS: patient oriented x3 and moves all extremities S ENSORIUM/ORIENTATION: Yes alert Skin: COMMON NORMALS: no rashes or lesions noted GENERAL SKIN EXAM: no rashes or lesions noted Data 04/24/25 03:48 04/24/25 03:48 A&P Assessment and plan 1. Accelerated hypertension: Hypertensive urgency with improvement weaned off nicardipine. Blood pressure still elevated today. With sinus tachycardia as well 100 teens-120s. Oxygen saturation 97% on room air. No respiratory symptoms. Without chest pain, but is having headache with hypertension. Check D-dimer. Blood pressure as high as 229/188 transiently, but not clear that is accurate with a wrist cuff placement. With reducing monitor alarms, TV volume and other noise in the room, repeat blood pressure doing a bit better 160/102. Continue optimization of resistant hypertension after hypertensive urgency. With past concern of possible pheochromocytoma, elevated catecholamines, however, was not found to have signs of pheochromocytoma on PET/CT. Reviewed endocrinology note. Will switch from metoprolol to labetalol in case there is unopposed alpha receptor reaction. Continue doxazosin. With flushing, check tryptase for possible mastocytosis. Reviewed, previously normal 24-hour urine 5-HIAA. Discussed with nursing, case mgr. Consider addition of calcium channel pepe. Ambien can cause tachycardia, discontinue. Transfer out of intensive care unit. 2. Acute renal insufficiency: With improvement after fluid challenge, creatinine today down to 1.3. BUN further increased to 21. Continue to optimize blood pressure control. Avoid hypotension. 3. Migraine headache: 4. Intractable nausea and vomitin. Nonadherence to medication: 6. At risk for polypharmacy: 7. Bipolar 1 disorder: 8. Acute kidney injury superimposed on CKD: Plan: Insomnia: Due to to tachycardia discontinue Ambien. And seems she was still having insomnia last night despite receiving it. Will start trazodone 25 mg at bedtime. Hypothyroidism: Reviewed free T3 and free T4, normal. Continue corticosteroid. - continue home medications for bipolar disease - Low-dose sliding scale for DM Diet: cardiac diet VTE: heparin 5000 bid PDMP PDMP Reviewed: Not Reviewed Attestations 2 Medical Necessity Statement*: Continue admission for optimization of resistant hypertension after hypertensive urgency. and High MDM includes amount and/or complexity of data reviewed/ordered [ previous or external records, resulted lab(s)/test(s), ordered lab(s)/test(s) and other healthcare professional discussion] as documented Diagnoses Accelerated hypertension I10 Acute renal insufficiency N28.9 Migraine headache G43.909 Intractable nausea and vomiting R11.2 Nonadherence to medication Z91.148 At risk for polypharmacy Z91.89 Bipolar 1 disorder F31.9 Acute kidney injury superimposed on CKD N17.9; N18.9
[2025-04-25] VITALS (32 sets, daily range): BP systolic 86–155; BP diastolic 51–126; PULSE 71–130; RESP 12–31; TEMP 36.4–37.2; O2SAT 91–98
[2025-04-25] MEDS: heparin 5,000 unit/mL INJ 1 mL 5000 UNIT SUBCUT ×2 (01:31→14:25)
[2025-04-25] MEDS: HYDROmorphone tab 2 MG TABLET 4 MG PO ×3 (01:34→14:25)
[2025-04-25 04:13] LABS: Hematocrit 39.5 % (36-47); Hemoglobin 12.30 g/dL (11.27-16.99); Mean Corpuscular HGB Conc 31.1 g/dL (30-55); Mean Corpuscular Hemoglobin 27.6 pg (27-33); Mean Corpuscular Volume 88.8 fl (85-98); Nucleated Red Blood Cells % 0 %; Platelet Count 240 10^3/cmm (157-399); Red Blood Count 4.45 10^6/uL (3.85-5.65); White Blood Count 8.14 10^3/uL (3.29-11.43)
[2025-04-25 04:33] LABS: Blood Urea Nitrogen 19 mg/dL (6-20); Calcium 9.4 mg/dL (8.5-10.5); Carbon Dioxide 24 mmol/L (22-29); Chloride 102 mmol/L (98-107); Creatinine Clr Calc Pharmacy 53.6911; Glucose 149 mg/dL (65-115); Osmolality Calculated 289 mOsm/kg (285-295); Sodium 137 mmol/L (136-145)
[2025-04-25 04:36] LABS: Anion Gap 14.9 (5-19); Potassium 3.9 mmol/L (3.5-5.1)
[2025-04-25] MEDS: ondansetron 2 mg/ML SDV 2 mL 4 MG IVP (07:21)
--- NOTE | 2025-04-25 09:03 | ECG_ITS ---
[facility] Test Date: 2025-04-25 Pat Name: Nnia Garcia Department: Room: [facility]09 Gender: Female Associate Account Director: : 1980 Requested By: Timoteo Krueger Order Number: [id number] Dustin MD: Rodolfo Chen M.D. Measurements Intervals [place] Rate: 118 P: 52 ID: [id number] QRS: 83 QRSD: 79 T: 7 QT: 301 QTc: 422 Interpretive Statements SINUS TACHYCARDIA WITH SHORT ID INTERVAL POSSIBLE LEFT ATRIAL ENLARGEMENT [-0.1mV P-WAVE IN V1/V2] NONSPECIFIC T-WAVE ABNORMALITY Compared to ECG 04/23/2025 15:53:51 T-wave abnormality now present Electronically Signed On 04-26-2025 22:44:09 CDT by Rodolfo Chen M.D. [email or web address] [id number]
[2025-04-25] MEDS: metoprolol tartrate 1 mg/1 mL SDV 5 mL 5 MG IVP (09:09)
[2025-04-25] MEDS: HYDROcodone-acetaminophen 5-325 mg Tablet 1 TAB PO (12:25)
--- NOTE | 2025-04-25 16:25 | PM.PN ---
Subjective Subjective: She was seen today and was feeling much better. The headache and the blood pressure is much controlled The patient is able to mobilize Patient to be transferred to [facility] Vitals/I&O/Wt Last Vital Signs Temp 98.4 F 04/25/25 11:37 Pulse 96 04/25/25 16:00 Resp 20 H 04/25/25 16:00 BP 140/104 04/25/25 16:00 Pulse Ox 96 04/25/25 16:00 O2 Del Method Room Air 04/25/25 16:00 04/25/25 04/25/25 04/25/25 06:59 14:59 22:59 Intake Total 322 / 322 Output Total 100 / 100 Balance 222 / 222 Weight last 48 hrs Weight 98.43 kg Weight 97.885 kg Physical Exam Narrative: General: Alert oriented x3, lying comfortably at room air without any distress HEENT: Normocephalic, atraumatic, EOMI, breathing comfortably Cardio: Regular rate rhythm, normal S1-S2, no murmurs rubs gallops, JVD normal Respiratory: Good bilateral air entry, no wheezes no rhonchi appreciated GI: Abdomen soft, nontender, nondistended, normoactive bowel sounds present all 4 quadrants, Neuro: Cranial nerves II to XII intact, strength 5/5, sensation 5/5, no gross neurological deficit Behavior: Appropriate and cooperative Extremities: Pulses 2+, no edema, no cyanosis Skin: Visible skin intact, no rashes Data 04/25/25 04:05 04/25/25 04:05 A&P Assessment and plan 1. Accelerated hypertension: Sinus tachycardia Patient came in hypertensive urgency and was on nicardipine drip, which was off in 24 hours Patient started on home medications doxazosin and metoprolol as well Optimized her analgesia and distress with the medications to avoid any hypertension aggravating factors The patient were worked up in the past for pheochromocytoma, hose seamer follow-up since the patient was already following at the time of discharge Consider addition of calcium channel pepe later if the blood pressure is not controlled Transfer out of intensive care unit. 2. Acute renal insufficiency: Patient renal parameters improving slowly however due to nausea and vomiting in between leads to dehydration and possible the reason. Maintain adequate hydration Monitor renal parameters and electrolytes with correction accordingly Intake and output monitoring 3. Migraine headache: Patient responds well to prochlorperazine/Compazine, to start the patient on prochlorperazine 10 mg 3 times daily regular Ondansetron as needed in between for nausea and vomiting Consider neurology consult for further management of migraine before discharge Patient CT scan of the head was unremarkable at the time of admission since she came with high blood pressure and nausea and vomiting. Continue monitor her neurological status 4. Intractable nausea and vomiting: Secondary to migraine Adequate antiemetics has been added 5. Nonadherence to medication: Adequate counseling has been provided 6. At risk for polypharmacy: Adequate counseling and the need of prioritizing important medication has been provided 7. Bipolar 1 disorder: Continue home medication of lithium 8. Acute kidney injury superimposed on CKD: 9. Adrenal insufficiency: Continue home dose of prednisone 7.5 mg daily Hold fludrocortisone since the patient was having high blood pressure PDMP PDMP Reviewed: Not Reviewed Attestations Medical Necessity Statement*: Patient will stay more than 2 midnights for the management of her uncontrolled hypertension, sinus tachycardia, migraine with aura that requires neurology evaluation and further management Time Spent in Patient Care: 16 - 35 minutes (>than 50% of time spent in counselling and/or direct pt care on unit). Critical Care Time: The high probability of a clinically significant, sudden or life threatening deterioration, as referenced in this documentation, required my full and direct attention, intervention and personal management. The critical care time shown is in addition to time spent performing any reported separately billable procedures and includes the following: [x] Data and vital sign review and interpretation [x] Patient assessment, examination and intervention [x] Medication orders and management [x] Patient/Family updates as able [x] Care Coordination and Documentation. Critical Care Time (min): 35 Other Attestations: Patient condition has been discussed at length with the patient/family, I have independently reviewed the chart labs imaging and diagnostics and EKG. the goals of care and code status with the patient/family/NOK/legal customer assistance representative, and documented accordingly. The patient/family has been informed about the current condition and further plan of care. Agreed with the plan of care and understood without any language barrier. This documentation was created by [employer] assembly line driver software. Every effort was made to ensure accuracy of assembly line driver. Any obvious errors or omissions should be clarified with the author of the document. Coding Level of Care Code Critical Care >/= 30 minutes Diagnoses Accelerated hypertension I10 Acute renal insufficiency N28.9 Migraine headache G43.909 Intractable nausea and vomiting R11.2 Nonadherence to medication Z91.148 At risk for polypharmacy Z91.89 Bipolar 1 disorder F31.9 Acute kidney injury superimposed on CKD N17.9; N18.9 Adrenal insufficiency E27.40
--- NOTE | 2025-04-25 17:44 | PC.NURSE ---
Shift note: Patient had sinus tach into 150's in the morning,EKG to confirm, this resolved with metoprolol. Dr Krueger Added compazine for nausea. Patient reports her headache and nausea have much improved. Otherwise uneventful shift. Patient is now a MS overflow. Ambulates without assistance.
--- NOTE | 2025-04-25 21:48 | PC.NURSE ---
Patient has had blood pressures with systolics in the 80s and 90s, Doxazosin held, Dr. Stubbs notified.
[2025-04-26] VITALS (36 sets, daily range): BP systolic 85–149; BP diastolic 53–109; PULSE 68–90; RESP 10–25; TEMP 36.5–36.8; O2SAT 93–98
[2025-04-26] MEDS: HYDROmorphone tab 2 MG TABLET 4 MG PO ×2 (01:13→09:16)
[2025-04-26] MEDS: heparin 5,000 unit/mL INJ 1 mL 5000 UNIT SUBCUT (01:29)
[2025-04-26 04:16] LABS: Hematocrit 38.3 % (36-47); Hemoglobin 11.80 g/dL (11.27-16.99); Mean Corpuscular HGB Conc 30.8 g/dL (30-55); Mean Corpuscular Hemoglobin 27.6 pg (27-33); Mean Corpuscular Volume 89.5 fl (85-98); Nucleated Red Blood Cells % 0 %; Platelet Count 232 10^3/cmm (157-399); Red Blood Count 4.28 10^6/uL (3.85-5.65); White Blood Count 7.29 10^3/uL (3.29-11.43)
[2025-04-26 04:46] LABS: Alanine Aminotransferase 11 U/L (0-33); Albumin Level 4.1 g/dL (3.5-5.2); Alkaline Phosphatase 51 U/L (35-105); Anion Gap 16.0 (5-19); Aspartate Amino Transferase 8 U/L (0-32); Blood Urea Nitrogen 14 mg/dL (6-20); Calcium 9.4 mg/dL (8.5-10.5); Carbon Dioxide 25 mmol/L (22-29); Chloride 102 mmol/L (98-107); Creatinine Clr Calc Pharmacy 62.1353; Globulin 3.1 g/dL (1.3-4.6); Glucose 114 mg/dL (65-115); Osmolality Calculated 289 mOsm/kg (285-295); Potassium 4.0 mmol/L (3.5-5.1); Sodium 139 mmol/L (136-145); Total Protein 7.2 g/dL (6.6-8.7)
[2025-04-26] MEDS: levothyroxine 100 mcg/mL SDV 550 MCG IM (10:35)
--- NOTE | 2025-04-26 14:29 | PM.DCS ---
Discharge Providers Date of Admission: 04/23/25 14:03 Date of Discharge: April 26, 2025 Attending Provider at Admission: Timoteo Krueger MD Attending Provider at Discharge: Timoteo Krueger MD Primary Care Provider: Michelle Rico Diagnoses at Discharge Discharge Diagnosis 1. Accelerated hypertension: 2. Acute renal insufficiency: 3. Migraine headache: 4. Intractable nausea and vomitin. Nonadherence to medication: 6. At risk for polypharmacy: 7. Bipolar 1 disorder: 8. Acute kidney injury superimposed on CKD: 9. Adrenal insufficiency: Reason for Visit Reason for Visit: chest pain headachs Brief History: As per the previous notes and the patient : Nina Garcia is a 45 year old female with a past medical history of hypertension, labile blood pressures, chronic pain, possible pheochromocytoma?, History of shock liver secondary to fluctuating blood pressures, on lithium, Lamictal, hypothyroidism, on weekly levothyroxine dosing through Dr. Toure, who presents to [facility] for headache/migraine. The patient was found to have high blood pressure that was difficult to control and was started on nicardipine drip with further titration and admission to ICU. the patient reported having increased headached with nausea and vomiting and was unable to take oral anti HTN medications. no fever, sob, chills, skin rash, LLE swellings. the patient was having chest heaviness without any diaphoresis. Trop were not significant upon checking. echo in 01/2025 did not show any signs of LV function compromise. she reported one episode of diarrhea without any blood. but no increase bowel motion or any abd pain The patient already had a history of labile blood pressures, adrenal insufficiency and hypothyroidism on IV levothyroxine that has been managed by the career and technology education teacher. The patient also had a history of noncompliance to medications as per the retrospective notes and difficulty in understanding of her medications. Hospital Course Hospital Course The patient admitted as a case of hypertensive urgency. The most likely reason is since the patient gets migraine headaches with aura associated with nausea and vomiting and therefore is unable to take her blood pressure medications and rest of the medications. This leads to uncontrolled blood pressure headaches and further agitation making her to come to hospital multiple times. She has informed that she is compliant to the medication but for her migraine headaches with aura nothing works much but apart from combination of diphenhydramine and Compazine. Initially the patient was started on nicardipine drip since she was having hypertensive urgency. The patient had CT head which was unremarkable. Chest x-ray was also done and did not show any acute abnormality. The patient blood pressure improved with nicardipine infusion and the patient was started on diphenhydramine along with Compazine medication to control her headache along with her home dose blood pressure medication. The patient improved throughout her course of hospital. She was having her levothyroxine dose of 550 mcg every Tuesday and it was given accordingly. The patient migraine headaches were controlled in the hospital. Neurology consultation at [facility] was taken on board from [facility] and her medications were reviewed and started on prochlorperazine and diphenhydramine combination orally as needed for aborting migraine headaches with aura. Low-dose amitriptyline 25 mg at night to be started for migraine. Trazodone and zolpidem were held. Metoprolol dose was increased to 25 mg twice daily based upon her blood pressure readings and tolerability. medications although carry interaction and inform the patient about it with the further plan of care, the patient agreed to take it and to follow-up with the neurology as outpatient within a week and also referral to endocrinology provided for continued OT of care postdischarge. Patient condition has been discussed at length with the patient/family, I have independently reviewed the chart labs imaging and diagnostics and EKG. the goals of care and code status with the patient/family/NOK/legal leather goods sales representative, and documented accordingly. The patient/family has been informed about the current condition and further plan of care. Agreed with the plan of care and understood without any language barrier. This documentation was created by [employer] naval gunfire liaison officer software. Every effort was made to ensure accuracy of naval gunfire liaison officer. Any obvious errors or omissions should be clarified with the author of the document. Physical Exam Narrative: General: Alert oriented x3, lying comfortably at room air without any distress HEENT: Normocephalic, atraumatic, EOMI, breathing comfortably Cardio: Regular rate rhythm, normal S1-S2, no murmurs rubs gallops, JVD normal Respiratory: Good bilateral air entry, no wheezes no rhonchi appreciated GI: Abdomen soft, nontender, nondistended, normoactive bowel sounds present all 4 quadrants, Neuro: Cranial nerves II to XII intact, strength 5/5, sensation 5/5, no gross neurological deficit Behavior: Appropriate and cooperative Extremities: Pulses 2+, no edema, no cyanosis Skin: Visible skin intact, no rashes Discharge Data Studies Completed and Pending Completed Studies During Hospitalization Category Date Time Status CT head wo con* [id number] Stat Cat Scan 04/23/25 13:07 Completed XR chest 1V portable [id number] Stat Exams 04/23/25 10:34 Completed Pending at discharge Category Date Time Status Tryptase Routine Lab 04/24/25 11:35 Received Radiology Impressions Chest X-Ray 04/23/25 10:34 IMPRESSION: 1. Negative chest. Head CT 04/23/25 13:07 IMPRESSION: 1. No evidence of intracranial hemorrhage or mass effect. 2. No acute intracranial findings. Notified Sarah Johnson MD at 04/23/2025 1:52 PM. Laboratory Results WBC 7.29 10^3/uL (3.29-11.43) 04/26/25 03:29 RBC 4.28 10^6/uL (3.85-5.65) 04/26/25 03:29 Hgb 11.80 g/dL (11.27-16.99) 04/26/25 03:29 Hct 38.3 % (36-47) 04/26/25 03:29 MCV 89.5 fl (85-98) 04/26/25 03:29 MCH 27.6 pg (27-33) 04/26/25 03:29 MCHC 30.8 g/dL (30-55) 04/26/25 03:29 RDW 14.1 % (12.1-15.1) 04/26/25 03:29 Plt Count 232 10^3/cmm (157-399) 04/26/25 03:29 MPV 12.0 fL (7.4-10.4) H 04/26/25 03:29 Neut % (Auto) 54.7 % 04/26/25 03:29 Lymph % (Auto) 35.4 % 04/26/25 03:29 [place] % (Auto) 6.3 % 04/26/25 03:29 Eos % (Auto) 1.9 % 04/26/25 03:29 Baso % (Auto) 0.7 % 04/26/25 03:29 Neut # (Auto) 3.99 10^3/uL (1.8-7.7) 04/26/25 03:29 Lymph # (Auto) 2.6 10^3/uL (0.8-4.8) 04/26/25 03:29 [place] # (Auto) 0.5 10^3/uL (0.2-0.9) 04/26/25 03:29 Eos # (Auto) 0.1 10^3/uL (0.0-0.8) 04/26/25 03:29 Baso # (Auto) 0.1 10^3/uL (0.0-0.1) 04/26/25 03:29 Nucleated RBC % (auto) 0 % 04/26/25 03: Nucleated RBCs # 0.0 /100WBC 04/26/25 03:29 D-Dimer 0.38 ug/mLFEU (0-0.59) 04/24/25 13:09 Sodium 139 mmol/L (136-145) 04/26/25 03: Potassium 4.0 mmol/L (3.5-5.1) 04/26/25 03: Chloride 102 mmol/L (98-107) 04/26/25 03: Carbon Dioxide 25 mmol/L (22-29) 04/26/25 03:29 Anion Gap 16.0 (5-19) 04/26/25 03:29 BUN 14 mg/dL (6-20) 04/26/25 03:29 Creatinine 1.3 mg/dL (0.5-0.9) H 04/26/25 03:29 GFR Calculation 43.9 mL/min (90-130) L 04/26/25 03:29 Glucose 114 mg/dL (65-115) 04/26/25 03:29 Calculated Osmolality 289 mOsm/kg (285-295) 04/26/25 03:29 Calcium 9.4 mg/dL (8.5-10.5) 04/26/25 03:29 Total Bilirubin 0.4 mg/dL (0.15-1.2) 04/26/25 03:29 AST 8 U/L (0-32) 04/26/25 03:29 ALT 11 U/L (0-33) 04/26/25 03:29 Alkaline Phosphatase 51 U/L (35-105) 04/26/25 03:29 Troponin T Baseline 10 ng/L (0-10) 04/23/25 10:42 Troponin T 120 Minute 10.75 ng/L (0-10) H 04/23/25 13:03 Delta Troponin T 0.75 ABS# (0-10) 04/23/25 13:03 Troponin T Hi Sens 6Hr 9.47 ng/L (0-10) 04/23/25 16:52 Troponin T Hi Sens 6Hr Delta -0.53 ng/L (0-12) L 04/23/25 16:52 NT-Pro-B Natriuret Pep 103 pg/mL (0-125) 04/23/25 10:42 Total Protein 7.2 g/dL (6.6-8.7) 04/26/25 03:29 Albumin 4.1 g/dL (3.5-5.2) 04/26/25 03:29 Globulin 3.1 g/dL (1.3-4.6) 04/26/25 03:29 Lipase 38 U/L (13-60) 04/23/25 10:42 TSH 9.47 uIU/mL (0.27-4.20) H 04/23/25 10:42 Free T4 1.19 ng/dL (0.82-1.77) 04/24/25 03:48 Free T3 2.3 PG/ML (2.0-4.4) 04/24/25 03:48 Urine Color Dark yellow (Yellow) A 04/23/25 11:10 Urine Appearance Cloudy (CLEAR) A 04/23/25 11:10 Urine pH 5.0 (5-7) 04/23/25 11:10 Ur Specific [place] 1.033 (1.005-1.030) H 04/23/25 11:10 Urine Protein 3+ (Negative) A 04/23/25 11:10 Urine Glucose (UA) Negative (Normal) 04/23/25 11:10 Urine Ketones 1+ (Negative) H 04/23/25 11:10 Urine Blood Trace (Negative) A 04/23/25 11:10 Urine Nitrate Negative (Negative) 04/23/25 11:10 Urine Bilirubin Negative (Negative) 04/23/25 11:10 Urine Urobilinogen 1.0 mg/dL (Negative) 04/23/25 11:10 Ur Leukocyte Esterase Negative (Negative) 04/23/25 11:10 Urine RBC 3-5 /hpf (0-2) 04/23/25 11:10 Urine WBC 0-5 /hpf (0-5) 04/23/25 11:10 Ur Squamous Epith Cells 11-20 /hpf (0-5) H 04/23/25 11:10 Amorphous Sediment Not Reportable 04/23/25 11:10 Urine Bacteria 1+ /hpf (NONE) H 04/23/25 11:10 Hyaline Casts 46.74 /lpf 04/23/25 11:10 Vitals Last Vital Signs Temp 98.2 F 04/26/25 08:30 Pulse 78 04/26/25 10:00 Resp 12 04/26/25 10:00 BP 122/78 04/26/25 10:00 Pulse Ox 96 04/26/25 10:00 O2 Del Method Room Air 04/26/25 07:56 Discharge Plan Discharge Patient Disposition: Home Condition: Stable Prescriptions: New amitriptyline 25 mg tablet 25 mg PO DAILY 90 Days Qty: 90 0RF metoprolol tartrate 25 mg Tablet 25 mg PO BID@0900,2100 60 Days Qty: 120 0RF prochlorperazine maleate 10 mg Tablet 10 mg PO .TID prn 60 Days Qty: 90 0RF Rx Instructions: MAX 30-40mg/24 hours dose diphenhydramine HCl 25 mg tablet 25 mg PO Q8H PRN (Reason: headache) Qty: 90 0RF Rx Instructions: Max 100mg/24 hours Continued hydromorphone [Dilaudid] 4 mg tablet 4 mg PO Q4H PRN (Reason: chronic pain) lamotrigine 200 mg tablet 200 mg PO QAM Qty: 30 11RF allopurinol 300 mg tablet 300 mg PO QAM tizanidine 4 mg tablet 8 mg PO QID Ozempic 0.25 mg or 0.5 mg (2 mg/3 mL) pen injector 0.25 mg SUBCUT Q7D 30 Days Qty: 1.84 0RF lurasidone 120 mg tablet 120 mg PO DAILY Qty: 30 11RF Rx Instructions: must administer with food (at least 350 calories) lithium carbonate 150 mg capsule 150 mg PO QAM Qty: 30 11RF lithium carbonate 300 mg capsule 300 mg PO .qhs Qty: 30 11RF lorazepam 2 mg tablet See Rx Instructions PO .COMPLEX Qty: 60 5RF Rx Instructions: Take one half tab (1mg) by mouth in AM and at noon, then take one tab (2mg) at bedtime ondansetron 8 mg tablet,disintegrating 8 mg PO Q8H PRN (Reason: Nausea And Vomiting) promethazine 25 mg suppository 25 mg SD Q6H PRN (Reason: nausea and vomiting) Qty: 12 0RF prednisone 5 mg tablet 7.5 mg PO DAILY doxazosin 1 mg Tablet 1 mg PO Q8H 60 Days Qty: 180 0RF fludrocortisone 0.1 mg Tablet 0.2 mg PO DAILY 90 Days Qty: 90 0RF Discontinued zolpidem 10 mg tablet 10 mg PO BEDTIME metoprolol tartrate 25 mg Tablet 12.5 mg PO BID@0900,2100 90 Days Qty: 90 0RF Authorizer OK for DC: Neurology Discharge Order = DC NOW: Discharge Order (Routine); Ordered 04/26/25 Ordered By: Timoteo Krueger Referrals: Mere Herr MD [Physician, Neurology] - 4-7 days Referral Note: severe migraine management Michelle Rico FNP [Primary Care Provider, Nurse Practitioner] Carol Toure MD [Physician, Endocrinology] - 4-7 days Kt Andersen MD [Physician, Psychiatry] - 4-7 days Referral Note: bipolar disorder and need of reconciliation of medications as well since she has multiple comorbid conditions Discharge Diet: Advance as tolerated and Usual diet Discharge Activity: Resume usual activity, Increase activity as tolerated and Limit activity as instructed Patient Instructions: Opioid Safety, Patient Portal & Braden Instructions Discharge Attestations Time Spent in Discharge Care*: greater than 30 min Specific Discharge Activities: educating patient, educating and/or supporting family/caregiver, discussing with pcp/other providers, discussing with major case detective/social workers/dc planners, documenting/other paperwork and evaluating patient/reviewing data Status at Discharge: Cognitive status at discharge: cognitively intact, Behavioral status at discharge: cooperative, Functional status at discharge: independent ambulation, Overall status at discharge: patient is back to baseline Quality Metrics Clinical Quality Measures [ No reported AMI, CVA or VTE this stay] Coding Level of Care Code 89878 Diagnoses Accelerated hypertension I10 Acute renal insufficiency N28.9 Migraine headache G43.909 Intractable nausea and vomiting R11.2 Nonadherence to medication Z91.148 At risk for polypharmacy Z91.89 Bipolar 1 disorder F31.9 Acute kidney injury superimposed on CKD N17.9; N18.9 Adrenal insufficiency E27.40
--- NOTE | 2025-04-26 16:21 | PC.NURSE ---
Patient discharged, IV removed. Medications sent to [facility] pharmacy. Patient educated on nyw medications, discontinued medications, and upcoming appointments. Patient signature form signed. After medications transfmitted to [facility] pharmacy, Dr Krueger changed metoprolol from 25mg BID to 12.5 mg BID. Nurse called [facility] pharmacy and had them update the dose. Nurse corrected patient paperwork and provided education.
== END 2025-04-26 15:45 | disposition home or self-care (01) | DRG 305 ==
LOC: ER 12:58 → ICU 14:04
PROVIDERS: Internal Medicine; Admitting Provider Student in an Organized Health Care Education/Training Program; Emergency Provider Emergency Medicine; PCP Nurse Practitioner Family; Visit Provider Student in an Organized Health Care Education/Training Program
DX: I16.0 Hypertensive urgency (principal); N17.9 Acute kidney failure, unspecified; E27.40 Unspecified adrenocortical insufficiency; I12.9 Hypertensive chronic kidney disease with stage 1 through stage 4 chronic kidney disease, or unspecified chronic kidney disease; N18.9 Chronic kidney disease, unspecified; E11.22 Type 2 diabetes mellitus with diabetic chronic kidney disease; Z79.85 Long-term (current) use of injectable non-insulin antidiabetic drugs; G43.109 Migraine with aura, not intractable, without status migrainosus; R11.2 Nausea with vomiting, unspecified; Z91.148 Patient's other noncompliance with medication regimen for other reason; F31.9 Bipolar disorder, unspecified; G89.29 Other chronic pain; E03.9 Hypothyroidism, unspecified; G47.00 Insomnia, unspecified
CPT/HCPCS: 36415; 70450; 71045; 80048; 80053; 81001; 83520; 83690; 83880; 84439; 84443; 84481; 84484; 85025; 85378; 93005; 96365; 96372; 96375; 96376; 99285; J0131; J0780; J1171; J1200; J1644; J2360; J2404; J2405; J3490; J7030; J7120; J7512; J9999; Q0164

== ENCOUNTER 2025-04-26 09:30 | Oncology outpatient (recurring) (ONCR) | payer OTHER, SELFPAY ==
[2025-03-29 09:31] VITALS: BP 140/92; PULSE 83; TEMP 36.2; O2SAT 98
[2025-03-29] MEDS: levothyroxine 200 mcg SDV 550 MCG IM (09:36)
[2025-04-05] MEDS: levothyroxine 200 mcg SDV 550 MCG IVP (08:25)
--- NOTE | 2025-04-05 10:45 | PC.PHAR ---
at approximately 10am, I received phone call from Luma: - Luma stated the levothyroxine order i received this morning to increase dose and change from IM to IV administration was written in error. the order should have read IM administration. at this time, patient has left the building. luma asked that I look up conversion dose from IM to IV. I told her i'm not familiar with that conversion, only the oral to IV conversion. I stated that I would look this up and get back to her. In the meantime, Luma phoned both Jeanie and Dr. Toure. Jeanie reported to Luma that the dose conversion for IM to IV is 1 to 1. Luma is going to phone the patient and ask that she report her symptoms. If she is feeling poorly and/or different than she typically feels following IM administration, she will ask that she phone the office or go to the ER. Luma gave me her cell phone number. I will phone her later this morning to follow up.
--- NOTE | 2025-04-05 11:16 | PC.PHAR ---
Levothyroxine follow up: I followed up with my flatwork supervisor, Jeanie, who is home sick today. she states that she has done some research and is finding the dose is the same but the duration of action when given IV is shorter. she has reported these findings to Luma and Dr. Toure.
[2025-04-12 09:18] VITALS: BP 175/102; PULSE 61; TEMP 36.4; O2SAT 99
[2025-04-12] MEDS: levothyroxine 200 mcg/5 mL SDV 550 MCG IVP (09:28)
== END 2025-04-28 23:59 | disposition home or self-care (01) ==
PROVIDERS: PCP Nurse Practitioner Family; Visit Provider Internal Medicine
DX: Z53.9 Procedure and treatment not carried out, unspecified reason (principal)
CPT/HCPCS: 96372; 96374; J0650; J0651

== ENCOUNTER 2025-05-17 10:12 | Emergency (ER) | payer OTHER, SELFPAY ==
--- OUTSIDE RECORDS SUMMARY | 2025-05-17 10:17 | XMS_ITS | Encounter Summary ---
Author Organization [email or web address], [facility] Address [address] [place] [address] Phone Care Team Providers Care Manager Plant Name Role Phone Michelle Rico TORSTEN Primary Care Provider Encounter Details Date Type Department Care Team (Late st Contact Info) Description 11/12/2020 [email or web address] [address] [place] [address] Josseline Wong NP [address] [place] [address] Stage 3 chronic kidney disease [...] ratio, urine (12/09/2020 3:16 PM CDT) Pathologist [facility] Protein, Ur 51(H) 0 - 20 mg/dL [facility] Creatinine, Urine 347.9(H) 29.0 - 226.0 mg/dL [facility] Comment:Reference Range vari es with fluid intake and diet. Protein/Creatin ine Ratio, Urine 0.15 0.00 - 0.19 mg/mg Creatinine [facility] Comment: Specimen Source: Urine, unspecified source Performed at: [place] [address] Manager Local: German Casey MD [facility] # [id number] Urine Urine specimen / Unknown 12/09/2020 3:16 PM CDT 12/09/2020 5:07 PM CDT Josseline Wong TELEVISION TECHNICIAN LAB URINE ORDERABLES Millicent l Result [facility] * (ABNORMAL) Vit D 25 hydroxy (12/09/2020 3:16 PM CDT) Pathologist [facility] [place] Vitamin D, 25-Hydroxy 22(L) 30 - 100 ng/mL [facility] Comment: Interpretive Data Chart: Deficient: 0 - 20 ng/mL Insufficient: 21 - 29 ng/mL Sufficient: 30 - 100 ng/mL Increased Risk of Hypercalciuria: >100 ng/ml Toxic: >150 ng/ml Performed at: [facility] [place] [address] [place] [address] Manager Local: German Casey MD CLIA # [id number] Blood 12/09/2020 3:16 PM CDT 12/09/2020 5:07 PM CDT Josseline Wong TELEVISION TECHNICIAN LAB BLOOD ORDERABLES Millicent l Result Performing Organization Address City/[facility] Co de Phone Number [facility] SNA * PTH, intact (12/09/2020 3:16 PM CDT) Pathologist [facility] [place] PTH 34.9 15.0 - 65.0 pg/mL [facility] SNA Comment: Performed at: [place] [address] Manager Local: German Casey MD CLIA # [id number] Blood 12/09/2020 3:16 PM CDT 12/09/2020 5:07 PM CDT Josseline Wong TELEVISION TECHNICIAN LAB BLOOD ORDERABLES [facility] Result Performing Organization Address City/[facility] Co de Phone Number [facility] * (ABNORMAL) CBC (12/09/2020 3:16 PM CDT) WBC 8.3 4.5 - 11.0 K/uL [facility] Red Blood Cells 5.09 4.20 - 5.40 M/uL [facility] Hgb 14.3 12.0 - 16.0 g/dL [facility] Hematocrit 45.1 36.0 - 46.0 % [facility] MCV 88.6 84.0 - 103.0 fL [facility] MCH 28.1 27.0 - 34.0 pg [facility] MCHC 31.7 30.0 - 35.0 g/dL [facility] S[facility] Platelets 246 140 - 440 K/uL [facility] MPV 12.2 8.9 - 12.8 fL [facility] RDW 15.8(H) 11.0 - 14.5 % [facility] SNA RDW-SD 51.7 37.0 - 54.0 fL [facility] Comment: Performed at: [facility] [address] Manager Local: MD GIRISH Castillo # [id number] Blood 12/09/2020 3:16 PM CDT 12/09/2020 5:07 PM CDT us Josseline Wong TELEVISION TECHNICIAN LAB BLOOD ORDERABLES Millicent l Result [facility] [...] SNA Comment: TEST COMMENT: Fasting?->No Performed at: [facility] [address] [place] [address] Manager Local: MD GIRISH Castillo # [id number] Blood 12/09/2020 3:16 PM CDT 12/09/2020 5:07 PM CDT us Josseline Wong TELEVISION TECHNICIAN LAB BLOOD ORDERABLES Millic[facility] l Result [facility] documented in this encounter Visit Diagnoses Diagnosis Stage 3 chronic kidney disease (HCC) documented in this encounter Care Teams Manager Plant Relationship Specialty Start Date End Date Michelle Rico FNP [address] [place] PCP - General 09/26/19 documented as of this encounter
--- OUTSIDE RECORDS SUMMARY | 2025-05-17 10:17 | XMS_ITS | Encounter Summary ---
Author Organization [facility] Address [address] [place] [address] Care Team Providers Care Geodetic Technician Name Role Phone Non-Staff, Physician Primary Care Provider Unava ilable Encounter Details Date Type Department Care Team (Latest Contact Info) Description 12/13/2000 Outpatient Historical [facility] Oseas Guidry MD [address] [place] [address] Abdominal pain, unspecified site (Primary Dx); Constipation; Encounter for long-term (current) use of other medications Social History Tobacco Use Types Packs/Day Years Used Date Smoking Tobacco: Never Assessed Comments Unknown Sex and Gender Information Value Date Recorded Sex Assigned at Not on file Legal Sex Female 3:18 AM TEST CONSULTANT Gender Identity Not on file Sexual Orientation Not on file documented as of this encounter Plan of Treatment Not on file documented as of this encounter Visit Diagnoses Diagnosis Abdominal pain, unspecified site- Primary Constipation Encounter for long-term (current) use of other medications documented in this encounter Care Teams Geodetic Technician Relationship Specialty Start Date End Date Non-Staff, Physician NO ADDRESS ON FILE PCP - General 04/02/20 documented as of this encounter
--- OUTSIDE RECORDS SUMMARY | 2025-05-17 10:17 | XMS_ITS | Encounter Summary ---
Author Organization [facility] Address [address] [place] [address] Care Team Providers Care Apparel Rental Clerk Name Role Phone Non-Staff, Physician Primary Care Provider Unava ilable Encounter Details Date Type Department Care Team (Late st Contact Info) Description 10/10/2002 Outpatient Historical [facility]jit Krueger Vidhi [address] [place] [id number] Sekou Ma MD [address] [facility] [address] [place], [place] [address] ADMINISTRTVE ENCOUNT NOS (Primary Dx) Social History Tobacco Use Types Packs/Day Years Used Date Smoking Tobacco: Never Assessed Comments Unknown Sex and Gender Information Value Date Recorded Sex Assigned at Not on file Legal Sex Female 3:18 AM ACTIVITIES COUNSELOR Gender Identity Not on file Sexual Orientation Not on file documented as of this encounter Plan of Treatment Not on file documented as of this encounter Visit Diagnoses Diagnosis Encounters for unspecified administrative purpose- Primary documented in this encounter Care Teams Apparel Rental Clerk Relationship Specialty Start Date End Date Non-Staff, Physician NO ADDRESS ON FILE PCP - General 04/02/20 documented as of this encounter
--- OUTSIDE RECORDS SUMMARY | 2025-05-17 10:17 | XMS_ITS | Encounter Summary ---
Author Organization [facility] Address [address] [place] [address] Care Team Providers Care Gauge Maker Name Role Phone Non-Staff, Physician Primary Care Provider Unava ilable Encounter Details Date Type Department Care Team (Latest Contact Info) Description 02/21/2006 Outpatient Historical [facility] [address] [place] [address] Antoinette Bradley MD [address] [place] [address] Syncope and Collapse (Primary Dx) Social History Tobacco Use Types Packs/Day Years Used Date Smoking Tobacco: Never Assessed Comments Unknown Sex and Gender Information Value Date Recorded Sex Assigned at Not on file Legal Sex Female 3:18 AM API PRODUCT MANAGER Gender Identity Not on file Sexual Orientation Not on file documented as of this encounter Plan of Treatment Not on file documented as of this encounter Visit Diagnoses Diagnosis Syncope and collapse- Primary documented in this encounter Care Teams Gauge Maker Relationship Specialty Start Date End Date Non-Staff, Physician NO ADDRESS ON FILE PCP - General 04/02/20 documented as of this encounter
--- OUTSIDE RECORDS SUMMARY | 2025-05-17 10:17 | XMS_ITS | Encounter Summary ---
Author Organization [facility] Address [address] [place] [address] Phone Care Team Providers Care Physician Practice Manager Name Role Phone Michelle Rico Primary Care Provider [phone] Reason for Visit * Reason Comments Med Refill Encounter Details Date Type Department Care Team (Late st Contact Info) Description 01/21/2022 Refill [facility] [address] [place] [address] Dangelo Monreal MD [address] [place] [address] Social History Tobacco Use Types [...] on filedocumented in this encounter Care Teams Physician Practice Manager Relationship Specialty Start Date End Date Michelle Rico FNP [address] [place] PCP - General 09/26/19 documented as of this encounter
--- OUTSIDE RECORDS SUMMARY | 2025-05-17 10:17 | XMS_ITS | Encounter Summary ---
Author Organization [facility] Address [address] [place] [address] Care Team Providers Care International Trade Compliance Manager Name Role Phone Non-Staff, Physician Primary Care Provider Unava ilable Encounter Details Date Type Department Care Team (Latest Contact Info) Description 06/03/2003 Outpatient Historical [facility] SoteroShaheen MD [address] [address] SURGERY FOLLOWUP, UNSPEC (Primary Dx) Social History Tobacco Use Types Packs/Day Years Used Date Smoking Tobacco: Never Assessed Comments Unknown Sex and Gender Information Value Date Recorded Sex Assigned at Not on file Legal Sex Female 3:18 AM DISTRICT WILDLIFE MANAGER Gender Identity Not on file Sexual Orientation Not on file documented as of this encounter Plan of Treatment Not on file documented as of this encounter Visit Diagnoses Diagnosis Follow-up examination, following unspecified surgery- Primary documented in this encounter Care Teams International Trade Compliance Manager Relationship Specialty Start Date End Date Non-Staff, Physician NO ADDRESS ON FILE PCP - General 04/02/20 documented as of this encounter
--- OUTSIDE RECORDS SUMMARY | 2025-05-17 10:17 | XMS_ITS | Encounter Summary ---
Author Organization [facility] Address [address] [place] [address] Care Team Providers Care Academic Services Professional Name Role Phone Non-Staff, Physician Primary Care Provider Unava ilable Encounter Details Date Type Department Care Team (Latest Contact Info) Description 02/23/2006 Outpatient Historical [facility] [place] [address] [place] [address] Quinten Aviles MD [facility] [address] [place] [address] Anal Fistula (Primary Dx); Anal or Rectal Pain Social History Tobacco Use Types Packs/Day Years Used Date Smoking Tobacco: Never Assessed Comments Unknown Sex and Gender Information Value Date Recorded Sex Assigned at Not on file Legal Sex Female 3:18 AM EVALUATION MANAGER Gender Identity Not on file Sexual Orientation Not on file documented as of this encounter Plan of Treatment Not on file documented as of this encounter Visit Diagnoses Diagnosis Anal fistula- Primary Anal or rectal pain documented in this encounter Care Teams Academic Services Professional Relationship Specialty Start Date End Date Non-Staff, Physician NO ADDRESS ON FILE PCP - General 04/02/20 documented as of this encounter
--- OUTSIDE RECORDS SUMMARY | 2025-05-17 10:17 | XMS_ITS | Encounter Summary ---
Author Organization [facility] Address [address] [place] [address] Care Team Providers Care Rehabilitation Counselor Name Role Phone Non-Staff, Physician Primary Care Provider Unava ilable Encounter Details Date Type Department Care Team (Late st Contact Info) Description 04/03/2001 Outpatient Historical [facility] Sekou Ma MD [address] [address] Excessive menstruation (Primary Dx) Social History Tobacco Use Types Packs/Day Years Used Date Smoking Tobacco: Never Assessed Comments Unknown Sex and Gender Information Value Date Recorded Sex Assigned at Not on file Legal Sex Female 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
--- OUTSIDE RECORDS SUMMARY | 2025-05-17 10:17 | XMS_ITS | Encounter Summary ---
Author Organization [facility] Address [address] [place] [address] Care Team Providers Care Refrigeration Repair Supervisor Name Role Phone Non-Staff, Physician Primary Care Provider Unava ilable Encounter Details Date Type Department Care Team (Late st Contact Info) Description 10/03/2002 Outpatient Historical [facility] OBGYN-[facility] [place] [facility] [address] [place] [phone] Sekou Ma MD [address] [facility] [address] [place], [place] [address] Gynecologic examination (Primary Dx); ENURESIS NOS; ABDOMINAL PAIN RLQ Social History Tobacco Use Types Packs/Day Years Used Date Smoking Tobacco: Never Assessed Comments Unknown Sex and Gender Information Value Date Recorded Sex Assigned at Not on file Legal 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
--- OUTSIDE RECORDS SUMMARY | 2025-05-17 10:17 | XMS_ITS | Encounter Summary ---
Author Organization [facility] Address [address] [place] [address] Care Team Providers Care Ice House Supervisor Name Role Phone Non-Staff, Physician Primary Care Provider Unava ilable Encounter Details Date Type Department Care Team (Latest Contact Info) Description 01/26/2000 Outpatient Historical [facility] Oseas Guidry MD [address] [place] [address] Chest pain, unspecified (Primary Dx); Nonallopathic lesion of thoracic region, not elsewhere classified; Personal history of endocrine, metabolic, and immunity disorders Social History Tobacco Use Types Packs/Day Years Used Date Smoking Tobacco: Never Assessed Comments Unknown Sex and Gender Information Value Date Recorded Sex Assigned at Not on file Legal Sex Female 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
--- OUTSIDE RECORDS SUMMARY | 2025-05-17 10:17 | XMS_ITS | Encounter Summary ---
Author Organization [facility] Address [address] [place] [address] Care Team Providers Care Category Consultant Name Role Phone Non-Staff, Physician Primary Care Provider Unava ilable Encounter Details Date Type Department Care Team (Latest Contact Info) Description 01/05/2001 Outpatient Historical [facility] Oseas Guidry MD [address] [place] [address] Urinary tract infection, site not specified (Primary Dx); Other and unspecified noninfectious gastroenteritis and colitis(558.9) Social History Tobacco Use Types Packs/Day Years Used Date Smoking Tobacco: Never Assessed Comments Unknown Sex and Gender Information Value Date Recorded Sex Assigned at Not on file Legal Sex Female 3:[address] Gender Identity Not on file Sexual Orientation Not on file documented as of this encounter Plan of Treatment Not on file documented as of this encounter Visit Diagnoses Diagnosis Urinary tract infection, site not specified- Primary Other and unspecified noninfectious gastroenteritis and colitis(558.9) Other and unspecified noninfectious gastroenteritis and colitis documented in this encounter Care Teams Category Consultant Relationship Specialty Start Date End Date Non-Staff, Physician NO ADDRESS ON FILE PCP - General 04/02/20 documented as of this encounter
--- OUTSIDE RECORDS SUMMARY | 2025-05-17 10:17 | XMS_ITS | Clinical Summary ---
Author Organization [facility] Address [address] [place] [address] Care Team Providers Care Lime Kiln And Recausticizing Operator Name Role Phone Non-Staff, Physician Primary Care Provider Unava ilable Allergies Active Allergy Reactions Criticality Noted Date Comments Aspirin Other (See Comments) 04/05/2019 Was instructed not to take medication Ketorolac Unknown 04/28/2011 Meloxicam Unknown 04/28/2011 Nsaids (Non-Steroidal Anti-Inflammatory Drug) Other (See Comments) 04/05/2019 Cant take because of [place] Medications HYDROcodone-fran taminophen (NORCO) 10-325 mg Oral [...] tablet Take 30 mg by mouth daily lidar analyst. 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 Gender Identity Not on file Sexual Orientation Not on file Last Filed Vital Signs Vital Sign Reading Time Taken Comments Blood Pressure 122/70 09/19/2020 1:09 PM STRETCHING PRESS OPERATOR Pulse 112 09/19/2020 1:09 PM STRETCHING PRESS OPERATOR Temperature 35.8 C (96.4 F) 04/03/2020 12:41 PM CDT Respiratory Rate 20 04/03/2020 12:41 PM CDT Oxygen Saturation 99% 04/03/2020 12:41 PM CDT Inhaled Oxygen Concentration - - Weight 100.2 kg (221 lb) 09/19/2020 1:09 PM STRETCHING PRESS OPERATOR Height 165.1 cm (5' 5 ) 09/19/2020 1:09 PM STRETCHING PRESS OPERATOR Body Mass Index 36.78 09/19/2020 1:09 PM STRETCHING PRESS OPERATOR Plan of Treatment Health Maintenance Due Date [...] 2025 06/04/2019 Medical Devices Implanted Type Area Technical Engineer Device Identifier Shelf Expiration Date Model / Serial / Lot Hemostatic Surgifoam [id number] 1972 - [id number] Implanted:06/12 by Quinten Medeiros MD at [facility] (Quantity not on file) Hemostatic N/A: Neck [employer] 03/29/20231971 [id number] Procedures Procedure Name Priority Date/Time Associated Diagnosis Comments COLONOSCOPY REPORT 10/26/2019 11 :43 AM STRETCHING PRESS OPERATOR from Last 3 Months or Most Recently Relevant to Health Maintenance Results * COLONOSCOPY REPORT (10/26/2019 11:43 AM STRETCHING PRESS OPERATOR) Narrative Procedure Note Kurt Howard DO - 10/26/2019 11:43 AM CST [facility] GI Patient Name: Nina Garcia Procedure Date: [...] 11:26:45 AM Scope Out: 11:40:06 AM [address] [place], [place] Kurt Howard DO GI PROCEDURE ORDERABLES Final Result from Last 3 Months or Most Recently Relevant to Health Maintenance Insurance Advance Directives For more information, please contact: [phone] * Full Code (Latest Code Status on File) Date Activated Date Inactivated Comments 04/02/2020 8:57 PM 04/03/2020 5:02 PM * Full Code Date Activated Date Inactivated Comments 10/26/2019 10:01 AM 10/26/2019 2:26 PM * Full Code Date Activated Date Inactivated Comments 06/12/2019 11:39 AM 06/13/2019 5:40 PM * Full Code Date Activated Date Inactivated Comments 04/05/2019 9:15 PM 04/07/2019 5:09 PM Care Teams Lime Kiln And Recausticizing Operator Relationship Specialty Start Date End Date Non-Staff, Physician NO ADDRESS ON FILE PCP - General 04/02/20
--- OUTSIDE RECORDS SUMMARY | 2025-05-17 10:17 | XMS_ITS | Encounter Summary ---
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
--- OUTSIDE RECORDS SUMMARY | 2025-05-17 10:17 | XMS_ITS | Encounter Summary ---
Author Organization [facility] Address [address] [place] [address] Care Team Providers Care Guest Specialist Name Role Phone Non-Staff, Physician Primary Care Provider Unava ilable Encounter Details Date Type Department Care Team (Latest Contact Info) Description 12/22/2000 Outpatient Historical [facility] Oseas Guidry MD [address] [place] [address] Abdominal pain, unspecified site (Primary Dx); Nonallopathic lesion of abdomen and other sites, not elsewhere classified Social History Tobacco Use Types Packs/Day Years Used Date Smoking Tobacco: Never Assessed Comments Unknown Sex and Gender Information Value Date Recorded Sex Assigned at Not on file Legal Sex Female 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
--- OUTSIDE RECORDS SUMMARY | 2025-05-17 10:17 | XMS_ITS | Encounter Summary ---
Author Organization [facility] Address [address] [place] [address] Care Team Providers Care Trauma Surgeon Name Role Phone Non-Staff, Physician Primary Care Provider Unava ilable Encounter Details Date Type Department Care Team (Late st Contact Info) Description 03/28/2006 Outpatient Historical [facility] Quinten Aviles MD [address] [place] [address] [address] [place] [phone] Social History Tobacco Use Types Packs/Day Years Used Date Smoking Tobacco: Never Assessed Comments Unknown Sex and Gender Information Value Date Recorded Sex Assigned at Not on file Legal Sex Female 3: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
--- OUTSIDE RECORDS SUMMARY | 2025-05-17 10:17 | XMS_ITS | Encounter Summary ---
Author Organization [facility] Address [address] [place] [address] Care Team Providers Care Ion Implant Machine Operator Name Role Phone Non-Staff, Physician Primary Care Provider Unava ilable Encounter Details Date Type Department Care Team (Late st Contact Info) Description 04/17/2001 Outpatient Historical [facility] Sekou Ma MD [address] [address] Other specified pre-operative examination (Primary Dx); Abdominal pain, generalized; Dysmenorrhea Social History Tobacco Use Types Packs/Day Years Used Date Smoking Tobacco: Never Assessed Comments Unknown Sex and Gender Information Value Date Recorded Sex Assigned at Not on file 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
--- OUTSIDE RECORDS SUMMARY | 2025-05-17 10:17 | XMS_ITS | Encounter Summary ---
Author Organization [facility] Address [address] [place] [address] Care Team Providers Care Upholstery Mechanic Name Role Phone Non-Staff, Physician Primary Care Provider Unava ilable Encounter Details Date Type Department Care Team (Late st Contact Info) Description 04/25/2001 Outpatient Historical [facility] [place] [facility] [address] [place] [phone] Sekou Ma MD [address] [facility] [address] [place], [place] [address] Metrorrhagia (Primary Dx); Dysmenorrhea; Unspecified symptom associated with female genital organs Social History Tobacco Use Types Packs/Day Years Used Date Smoking Tobacco: Never Assessed Comments Unknown Sex and Gender Information Value Date Recorded Sex Assigned at Not on file Legal 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
--- OUTSIDE RECORDS SUMMARY | 2025-05-17 10:17 | XMS_ITS | Clinical Summary ---
Author Organization [facility] Address [address] [place] [address] Care Team Providers Care Datastage Developer Name Role Phone Michelle Rico [facility] Primary Care Provider Allergies Active Allergy Reactions Criticality Noted Date Comments Aspirin 04/05/2019 Other reaction(s): Other (See Comments) Was instructed not to take medication Ketorolac 04/28/2011 Other reaction(s): Unknown Meloxicam 04/28/2011 Other reaction(s): Unknown Nsaids 04/05/2019 Other reaction(s): Other (See Comments) Cant take because of [place] Medications * This document contains information received [...] Comments Blood Pressure 100/60 10/06/2021 10:44 AM DRIVERS' CASH CLERK Pulse 66 10/06/2021 10:44 AM DRIVERS' CASH CLERK Temperature 36.8 C (98.3 F) 12/15/2020 3:15 PM CDT Respiratory Rate - - Oxygen Saturation - - Inhaled Oxygen Concentration - - Weight 104 kg (229 lb 12.8 oz) 10/06/2021 10:44 AM DRIVERS' CASH CLERK Height 165.1 cm (5' 5 ) 10/06/2021 10:44 AM DRIVERS' CASH CLERK Body Mass Index 38.24 10/06/2021 10:44 AM DRIVERS' CASH CLERK Plan of Treatment Health Maintenance Due Date Last Done Comments Hepatitis B Vaccine (1 of 3 - 19+ 3-dose series) 02/09 Pneumococcal Vaccine: Peds ( 0 to 5 Years) and At-Risk Patients (6 to 49 Years) (1 of 2 - PCV) 1997 Influenza Vaccine (#1) 2025 06/04/2019 Insurance [facility] Care Teams Datastage Developer Relationship Specialty Start Date End Date Michelle Rico FNP [address] [place] PCP - General 09/26/19
--- OUTSIDE RECORDS SUMMARY | 2025-05-17 10:17 | XMS_ITS | Encounter Summary ---
Author Organization [facility] Address [address] [place] [address] Care Team Providers Care Pain Management Physician Name Role Phone Non-Staff, Physician Primary Care Provider Unava ilable Encounter Details Date Type Department Care Team (Late st Contact Info) Description 10/03/2002 Outpatient Historical [facility] OBGYN-[facility] [place] [facility] [address] [place] [phone] Sekou Ma MD [address] [facility] [address] [place], [place] [address] Social History Tobacco Use Types Packs/Day Years Used Date Smoking Tobacco: Never Assessed Comments Unknown Sex and Gender Information Value Date Recorded Sex Assigned at Not on file Legal Sex Female 3:18 AM FROG CATCHER Gender Identity Not on file Sexual Orientation Not on file documented as of this encounter Plan of Treatment Not on file documented as of this encounter Visit Diagnoses Not on filedocumented in this encounter Care Teams Pain Management Physician Relationship Specialty Start Date End Date Non-Staff, Physician NO ADDRESS ON FILE PCP - General 04/02/20 documented as of this encounter
--- OUTSIDE RECORDS SUMMARY | 2025-05-17 10:17 | XMS_ITS | Encounter Summary ---
Author Organization [facility] Address [address] [place] [address] Care Team Providers Care Practice Consultant Name Role Phone Non-Staff, Physician Primary Care Provider Unava ilable Encounter Details Date Type Department Care Team (Late st Contact Info) Description 04/03/2001 Outpatient Historical [facility] OBGYN-[facility] [place] [facility] [address] [place] [phone] Sekou Ma MD [address] [facility] [address] [place], [place] [id number] Unspecified inflammatory disease of uterus (Primary Dx); Irregular menstruation; Unspecified symptom associated with female genital organs Social History Tobacco Use Types Packs/Day Years Used Date Smoking Tobacco: Never Assessed Comments Unknown Sex and Gender Information Value Date Recorded Sex Assigned at Not on file Legal Sex Female 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
--- OUTSIDE RECORDS SUMMARY | 2025-05-17 10:17 | XMS_ITS | Encounter Summary ---
Author Organization [facility] Address [address] [place] [address] Care Team Providers Care Ergonomics Technician Name Role Phone Non-Staff, Physician Primary Care Provider Unava ilable Encounter Details Date Type Department Care Team (Late st Contact Info) Description 03/20/2001 Outpatient Historical [facility] OBGYN-[facility] [place] [facility] [address] [place] [phone] Sekou Ma MD [address] [facility] [address] [place], [place] [id number] Irregular menstruation (Primary Dx); Dyspareunia; Unspecified symptom associated with female genital organs Social History Tobacco Use Types Packs/Day Years Used Date Smoking Tobacco: Never Assessed Comments Unknown Sex and Gender Information Value Date Recorded Sex Assigned at Not on file Legal Sex Female 3:18 AM FINANCIAL COORDINATOR Gender Identity Not on file Sexual Orientation Not on file documented as of this encounter Plan of Treatment Not on file documented as of this encounter Visit Diagnoses Diagnosis Irregular menstruation- Primary Irregular menstrual cycle Dyspareunia Unspecified symptom associated with female genital organs documented in this encounter Care Teams Ergonomics Technician Relationship Specialty Start Date End Date Non-Staff, Physician NO ADDRESS ON FILE PCP - General 04/02/20 documented as of this encounter
--- OUTSIDE RECORDS SUMMARY | 2025-05-17 10:17 | XMS_ITS | Encounter Summary ---
Author Organization [facility] Address [address] [place] [address] Care Team Providers Care Gang Investigator Name Role Phone Non-Staff, Physician Primary Care Provider Unava ilable Encounter Details Date Type Department Care Team (Latest Contact Info) Description 01/22/2000 Outpatient Historical [facility] Oseas Guidry MD [address] [place] [address] Chest pain, unspecified (Primary Dx); Headache(784.0); Dyspepsia and other specified disorders of function of stomach Social History Tobacco Use Types Packs/Day Years Used Date Smoking Tobacco: Never Assessed Comments Unknown Sex and Gender Information Value Date Recorded Sex Assigned at Not on file Legal Sex Female 3:18 AM SERVICE CENTER SUPERVISOR Gender Identity Not on file Sexual Orientation Not on file documented as of this encounter Plan of Treatment Not on file documented as of this encounter Visit Diagnoses Diagnosis Chest pain, unspecified- Primary Headache(784.0) Headache Dyspepsia and other specified disorders of function of stomach documented in this encounter Care Teams Gang Investigator Relationship Specialty Start Date End Date Non-Staff, Physician NO ADDRESS ON FILE PCP - General 04/02/20 documented as of this encounter
--- OUTSIDE RECORDS SUMMARY | 2025-05-17 10:17 | XMS_ITS | Encounter Summary ---
Author Organization [facility] Address [address] [place] [address] Care Team Providers Care School Speech Therapist Name Role Phone Non-Staff, Physician Primary Care Provider Unava ilable Encounter Details Date Type Department Care Team (Latest Contact Info) Description 07/11/2000 Outpatient Historical [facility] Oseas Guidry MD [address] [place] [address] Abdominal pain, unspecified site (Primary Dx); Other malaise and fatigue Social History Tobacco Use Types Packs/Day Years Used Date Smoking Tobacco: Never Assessed Comments Unknown Sex and Gender Information Value Date Recorded Sex Assigned at Not on file Legal Sex Female 3: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
--- OUTSIDE RECORDS SUMMARY | 2025-05-17 10:17 | XMS_ITS | Encounter Summary ---
Author Organization [facility] Address [address] [place] [address] Care Team Providers Care Customer Services Manager Name Role Phone Non-Staff, Physician Primary Care Provider Unava ilable Encounter Details Date Type Department Care Team (Latest Contact Info) Description 02/28/2001 Outpatient Historical [facility] Oseas Guidry MD [address] [place] [address] Unspecified inflammatory disease of female pelvic organs and tissues (Primary Dx) Social History Tobacco Use Types Packs/Day Years Used Date Smoking Tobacco: Never Assessed Comments Unknown Sex and Gender Information Value Date Recorded Sex Assigned at Not on file Legal Sex Female 3:18 AM SPECIMEN PREPARATION ASSISTANT Gender Identity Not on file Sexual Orientation Not on file documented as of this encounter Plan of Treatment Not on file documented as of this encounter Visit Diagnoses Diagnosis Unspecified inflammatory disease of female pelvic organs and tissues- Primary documented in this encounter Care Teams Customer Services Manager Relationship Specialty Start Date End Date Non-Staff, Physician NO ADDRESS ON FILE PCP - General 04/02/20 documented as of this encounter
--- OUTSIDE RECORDS SUMMARY | 2025-05-17 10:17 | XMS_ITS | Encounter Summary ---
Author Organization [facility] Address [address] [place] [address] Phone Care Team Providers Care Online Trader Name Role Phone Michelle Rico TORSTEN Primary Care Provider Encounter Details Date Type Department Care Team (Late st Contact Info) Description 03/06/2021 Orders Only [facility] [address] [place] [address] Janeth Fong MA Stage 3b [...] (Blood) 4.1 g/dL [facility] eGFR Non-Afr [place] 51 [facility] eGFR 59 [facility] Blood specimen (specimen) Venous blood / Unknown 03/19/2021 10:30 AM CDT Narrative [facility] - 03/24/2021 9:21 AM CDT machine captain lab [facility] [place] [address] [address] [employer] Machine Tender: Poncho Cordova DO MPH CLIA: [id number] [facility] [place] [address] [place] [place] [address] [employer] Machine Tender: Poncho Cordova DO MPH CLIA: [id number] us Dangelo Monreal MD LAB BLOOD ORDERABLES [facility] Result [facility] * CBC and differential (03/19/2021 10:30 AM CDT) Pathologist [facility] WBC 9.7 K/uL [facility] Red Blood [...] [facility] - 03/24/2021 9:24 AM CDT machine captain lab [facility] [place] [address] [place] [address] [employer] Machine Tender: Poncho Cordova DO MPH CLIA: [id number] [facility] [place] [address] [place] [address] [employer] Machine Tender: Poncho Cordova DO MPH CLIA: [id number] us Dangelo Monreal MD LAB BLOOD ORDERABLES [...] [facility] - 03/24/2021 9:22 AM CDT machine captain lab [facility] [place] [address] [place] [address] [employer] Machine Tender: Poncho Cordova DO MPH CLIA: [id number] [facility] [place] [address] [place] [address] [employer] Machine Tender: Poncho Cordova DO MPH CLIA: [id number] us Dangelo Monreal MD LAB URINE ORDERABLES Fi [facility] Result [facility] documented in this encounter Visit Diagnoses Diagnosis Stage 3b chronic kidney disease (HCC) documented in this encounter Care Teams Online Trader Relationship Specialty Start Date End Date Michelle Rico FNP [address] PCP - General 09/26/19 documented as of this encounter
--- OUTSIDE RECORDS SUMMARY | 2025-05-17 10:17 | XMS_ITS | Encounter Summary ---
Author Organization [facility] Address [address] [place] [address] Care Team Providers Care Medical Lab Scientist Name Role Phone Non-Staff, Physician Primary Care Provider Unava ilable Encounter Details Date Type Department Care Team (Late st Contact Info) Description 04/17/[address] [facility] Grady Vidhi [address] [place] [phone] Sekou Ma MD [address] [facility] [address] [place], [place] [id number] Other specified pre-operative examination (Primary Dx); Unspecified symptom associated with female genital organs Social History Tobacco Use Types Packs/Day Years Used Date Smoking Tobacco: Never Assessed Comments Unknown Sex and Gender Information Value Date Recorded Sex Assigned at Not on file Legal Sex Female 3:18 AM GERIATRIC CASE MANAGER Gender Identity Not on file Sexual Orientation Not on file documented as of this encounter Plan of Treatment Not on file documented as of this encounter Visit Diagnoses Diagnosis Other specified pre-operative examination- Primary Unspecified symptom associated with female genital organs documented in this encounter Care Teams Medical Lab Scientist Relationship Specialty Start Date End Date Non-Staff, Physician NO ADDRESS ON FILE PCP - General 04/02/20 documented as of this encounter
--- OUTSIDE RECORDS SUMMARY | 2025-05-17 10:17 | XMS_ITS | Encounter Summary ---
Author Organization [facility] Address [address] [place] [address] Care Team Providers Care Blanket Cutting Machine Operator Name Role Phone Non-Staff, Physician Primary Care Provider Unava ilable Encounter Details Date Type Department Care Team (Latest Contact Info) Description 04/20/2000 Outpatient Historical 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
--- OUTSIDE RECORDS SUMMARY | 2025-05-17 10:17 | XMS_ITS | Encounter Summary ---
Author Organization [facility] Address [address] [place] [address] Phone Care Team Providers Care Butadiene Converter Helper Name Role Phone Michelle Rico Primary Care Provider [phone] Reason for Visit * Reason Comments Med Refill Encounter Details Date Type Department Care Team (Late st Contact Info) Description 07/04/2022 Refill [facility] [address] [place] [address] Gaye Sheth NP [address] [place] [address] Social History Tobacco Use Types [...] on filedocumented in this encounter Care Teams Butadiene Converter Helper Relationship Specialty Start Date End Date Michelle Rico FNP [address] PCP - General 09/26/19 documented as of this encounter
--- OUTSIDE RECORDS SUMMARY | 2025-05-17 10:17 | XMS_ITS | Encounter Summary ---
Author Organization [facility] Address [address] [place] [address] Care Team Providers Care Firearms Expert Name Role Phone Non-Staff, Physician Primary Care Provider Unava ilable Encounter Details Date Type Department Care Team (Late st Contact Info) Description 06/11/2015 Ancillary Orders [facility] Nuclear Medicine [address] 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
--- OUTSIDE RECORDS SUMMARY | 2025-05-17 10:17 | XMS_ITS | Encounter Summary ---
Author Organization [facility] Address [address] [facility] [facility] [address] [facility] [address] [place] [address] Phone Care Team Providers Care Rail Gang Supervisor Name Role Phone Michelle Rico Primary Care Provider [phone] Reason for Visit * Reason Comments Med Refill Encounter Details Date Type Department Care Team (Late st Contact Info) Description 09/10/2021 Refill [facility] [address] [facility] [address] [place] [address] Josseline Wong NP [address] [place] [address] Social History Tobacco Use Types [...] on filedocumented in this encounter Care Teams Rail Gang Supervisor Relationship Specialty Start Date End Date Michelle Rico FNP [address] [place] [address] PCP - General 09/26/19 documented as of this encounter
--- OUTSIDE RECORDS SUMMARY | 2025-05-17 10:17 | XMS_ITS | Encounter Summary ---
Author Organization [facility] Address [address] [place] [address] Care Team Providers Care Clerk Analyst Name Role Phone Non-Staff, Physician Primary Care Provider Unava ilable Encounter Details Date Type Department Care Team (Latest Contact Info) Description 03/09/2006 Outpatient Historical [facility] [place] [address] [facility] [address] [place] [address] Quinten Aviles MD [facility] [address] [place] [address] Anal or Rectal Pain (Primary Dx); Other Specified Disorder of Rectum and Anus Social History Tobacco Use Types Packs/Day Years Used Date Smoking Tobacco: Never Assessed Comments Unknown Sex and Gender Information Value Date Recorded Sex Assigned at Not on file Legal Sex Female 3:18 AM GLOBAL COORDINATOR Gender Identity Not on file Sexual Orientation Not on file documented as of this encounter Plan of Treatment Not on file documented as of this encounter Visit Diagnoses Diagnosis Anal or rectal pain- Primary Other specified disorder of rectum and anus documented in this encounter Care Teams Clerk Analyst Relationship Specialty Start Date End Date Non-Staff, Physician NO ADDRESS ON FILE PCP - General 04/02/20 documented as of this encounter
--- OUTSIDE RECORDS SUMMARY | 2025-05-17 10:17 | XMS_ITS | Encounter Summary ---
Author Organization [facility] Address [address] [place] [address] Care Team Providers Care Counter Help Name Role Phone Non-Staff, Physician Primary Care Provider Unava ilable Encounter Details Date Type Department Care Team (Latest Contact Info) Description 07/19/2002 Outpatient Historical [facility] Oseas Guidry MD [address] [place] [address] IRRITABLE COLON (Primary Dx) Social History Tobacco Use Types Packs/Day Years Used Date Smoking Tobacco: Never Assessed Comments Unknown Sex and Gender Information Value Date Recorded Sex Assigned at Not on file Legal Sex Female 3:18 AM SLEEVE SEWER Gender Identity Not on file Sexual Orientation Not on file documented as of this encounter Plan of Treatment Not on file documented as of this encounter Visit Diagnoses Diagnosis Irritable bowel syndrome- Primary documented in this encounter Care Teams Counter Help Relationship Specialty Start Date End Date Non-Staff, Physician NO ADDRESS ON FILE PCP - General 04/02/20 documented as of this encounter
--- OUTSIDE RECORDS SUMMARY | 2025-05-17 10:17 | XMS_ITS | Clinical Summary ---
Author Organization [facility] Address [address] [place] [address] Care Team Providers Care Buttonhole Tacker Name Role Phone Non-Staff, Physician Primary Care Provider Unava ilable Allergies Active Allergy Reactions Criticality Noted Date Comments Aspirin Other (See Comments) 04/05/2019 Was instructed not to take medication Ketorolac Unknown 04/28/2011 Meloxicam Unknown 04/28/2011 Nsaids (Non-Steroidal Anti-Inflammatory Drug) Other (See Comments) 04/05/2019 Cant take because of [place] Medications lamoTRIgine (LaMICtal) 200 mg tablet Take [...] daily. A ctive naloxone (NARCAN) 4 mg/spray [place], Non-Aerosol as directed 0 Active ondansetron (ZOFRAN [...] on file Legal Sex Female 1:20 PM HOTEL CONTROLLER Gender Identity Not on file Sexual Orientation [...] 2025 06/04/2019 Medical Devices Implanted Type Area Lawn Mower Repairer Device Identifier Shelf Expiration Date Model / Serial / Lot Hemostatic Surgifoam [id number] 1971 - [id number] Implanted:05/29 by Quinten Medeiros MD (Quantity not on file) Hemostatic N/A: Neck [employer] 03/29/20231971 [id number] Procedures Procedure Name Priority Date/Time Associated Diagnosis Comments COLONOSCOPY REPORT 10/26/2019 11 :43 AM HOTEL CONTROLLER from Last 3 Months or Most Recently Relevant to Health Maintenance Results * COLONOSCOPY REPORT (10/26/2019 11:43 AM HOTEL CONTROLLER) Narrative Procedure Note Kurt Howard DO - 10/26/2019 11:43 AM CST Procedures signed by Kurt Howard DO at 10/26/2019 11:43 AM Author: Kurt Howard DO Service: -- Author Type: Physician Filed: 10/26/2019 11:43 AM Date of Service: 10/26/2019 11:43 AM Status:Signed Tariff Compiling Clerk: Kurt Howard DO (Physician) Procedure Orders 1. COLONOSCOPY REPORT [[id number]] ordered by Kurt Howard DOat 10/26/19 [facility] Patient Name: Nina Garcia Procedure Date: 10/26/2019 [...] Scope Out: 11:40:06 AM [address] [place], [place] Kurt Howard DO GI PROCEDURE ORDERABLES Edited Result - Final from Last 3 Months or Most Recently Relevant to Health Maintenance Insurance [facility] OPTIONS PPO [id number] Care Teams Buttonhole Tacker Relationship Specialty Start Date End Date Non-Staff, Physician NO ADDRESS ON FILE PCP - General 04/02/20
--- OUTSIDE RECORDS SUMMARY | 2025-05-17 10:17 | XMS_ITS | Encounter Summary ---
Author Organization [facility] [employer] Address [address] [place] [address] Phone Care Team Providers Care Obstetrics Technician Name Role Phone Michelle Rico Primary Care Provider Encounter Details Date Type Department Care Team (Late st Contact Info) Description 05/24/2019 Orders Only [facility] [address] [place] [address] Chronic kidney disease, stage 3 [...] Hypertension documented in this encounter Care Teams Obstetrics Technician Relationship Specialty Start Date End Date Michelle Rico FNP [address] [place] PCP - General 09/26/19 documented as of this encounter
--- OUTSIDE RECORDS SUMMARY | 2025-05-17 10:17 | XMS_ITS | Encounter Summary ---
Author Organization [facility] Address [address] [facility] Attn: [place] [address] Care Team Providers Care Electromyographic Technician Name Role Phone Non-Staff, Physician Primary Care Provider Unava ilable Encounter Details Date Type Department Care Team (Late st Contact Info) Description 04/25/2001 Inpatient Historical Sekou Ma MD [address] [address] Social History Tobacco Use Types Packs/Day Years Used Date Smoking Tobacco: Never Assessed Comments Unknown Sex and Gender Information Value Date Recorded Sex Assigned at Not on file Legal Sex Female 3:18 AM JAVA DEVELOPER ANALYST Gender Identity Not on file Sexual Orientation Not on file documented as of this encounter Plan of Treatment Not on file documented as of this encounter Visit Diagnoses Not on filedocumented in this encounter Care Teams Electromyographic Technician Relationship Specialty Start Date End Date Non-Staff, Physician NO ADDRESS ON FILE PCP - General 04/02/20 documented as of this encounter
--- OUTSIDE RECORDS SUMMARY | 2025-05-17 10:17 | XMS_ITS | Encounter Summary ---
Author Organization [facility] Address [address] [place] [address] Care Team Providers Care Loan Associate Name Role Phone Non-Staff, Physician Primary Care Provider Unava ilable Encounter Details Date Type Department Care Team (Latest Contact Info) Description 08/31/2000 Outpatient Historical [facility] Shaheen Bey MD [address] [facility] [address] [place] [address] Constipation (Primary Dx); Abdominal pain, right upper quadrant; Abdominal pain, left lower quadrant Social History Tobacco Use Types Packs/Day Years Used Date Smoking Tobacco: Never Assessed Comments Unknown Sex and Gender Information Value Date Recorded Sex Assigned at Not on file Legal Sex Female 3:18 AM CRANE MAN Gender Identity Not on file Sexual Orientation Not on file documented as of this encounter Plan of Treatment Not on file documented as of this encounter Visit Diagnoses Diagnosis Constipation- Primary Abdominal pain, right upper quadrant Abdominal pain, left lower quadrant documented in this encounter Care Teams Loan Associate Relationship Specialty Start Date End Date Non-Staff, Physician NO ADDRESS ON FILE PCP - General 04/02/20 documented as of this encounter
--- OUTSIDE RECORDS SUMMARY | 2025-05-17 10:17 | XMS_ITS | Encounter Summary ---
Author Organization [facility] Address [address] [place] [address] Phone Care Team Providers Care Front Attendant Name Role Phone Michelle Rico Primary Care Provider Encounter Details Date Type Department Care Team (Late st Contact Info) Description 03/16/2021 Orders Only [facility] [address] [place] [address] Dangelo Monreal MD [address] [place] [address] Stage 3b chronic kidney disease [...] (HCC) documented in this encounter Care Teams Front Attendant Relationship Specialty Start Date End Date Michelle Rico FNP [address] PCP - General 09/26/19 documented as of this encounter
--- OUTSIDE RECORDS SUMMARY | 2025-05-17 10:17 | XMS_ITS | Encounter Summary ---
Author Organization [facility] Address [address] [place] [address] Care Team Providers Care Polymer Materials Consultant Name Role Phone Non-Staff, Physician Primary Care Provider Unava ilable Encounter Details Date Type Department Care Team (Latest Contact Info) Description 03/09/2006 Outpatient Historical [facility] Endoscopy [address] [place] [address] Quinten Aviles MD [address] [place] [address] [address] [place] [address] Anal or Rectal Pain (Primary Dx) Social History Tobacco Use Types Packs/Day Years Used Date Smoking Tobacco: Never Assessed Comments Unknown Sex and Gender Information Value Date Recorded Sex Assigned at Not on file Legal Sex Female 3:18 AM VICE PRESIDENT OF NURSING Gender Identity Not on file Sexual Orientation Not on file documented as of this encounter Plan of Treatment Not on file documented as of this encounter Visit Diagnoses Diagnosis Anal or rectal pain- Primary documented in this encounter Care Teams Polymer Materials Consultant Relationship Specialty Start Date End Date Non-Staff, Physician NO ADDRESS ON FILE PCP - General 04/02/20 documented as of this encounter
--- OUTSIDE RECORDS SUMMARY | 2025-05-17 10:17 | XMS_ITS | Encounter Summary ---
Author Organization [facility] Address [address] [place] [address] Care Team Providers Care Subacute Nurse Name Role Phone Non-Staff, Physician Primary Care Provider Unava ilable Encounter Details Date Type Department Care Team (Latest Contact Info) Description 05/25/2000 Outpatient Historical [facility] Shaheen Bey MD [address] [facility] [address] [place] [address] Follow-up examination following surgery (Primary Dx) Social History Tobacco Use Types Packs/Day Years Used Date Smoking Tobacco: Never Assessed Comments Unknown Sex and Gender Information Value Date Recorded Sex Assigned at Not on file Legal Sex Female 3:18 AM LASER SPECIALIST Gender Identity Not on file Sexual Orientation Not on file documented as of this encounter Plan of Treatment Not on file documented as of this encounter Visit Diagnoses Diagnosis Follow-up examination following surgery- Primary documented in this encounter Care Teams Subacute Nurse Relationship Specialty Start Date End Date Non-Staff, Physician NO ADDRESS ON FILE PCP - General 04/02/20 documented as of this encounter
--- OUTSIDE RECORDS SUMMARY | 2025-05-17 10:17 | XMS_ITS | Encounter Summary ---
Author Organization [facility] Address [address] [place] [address] Care Team Providers Care Cook At School Name Role Phone Non-Staff, Physician Primary Care Provider Unava ilable Encounter Details Date Type Department Care Team (Latest Contact Info) Description 03/10/2006 Outpatient Historical [facility] [address] [place] [address] Jeniffer Bronson MD [address] [facility] [address] [place] [address] Syncope and Collapse (Primary Dx) Social History Tobacco Use Types Packs/Day Years Used Date Smoking Tobacco: Never Assessed Comments Unknown Sex and Gender Information Value Date Recorded Sex Assigned at Not on file Legal Sex Female 3:18 AM MAILMASTER Gender Identity Not on file Sexual Orientation Not on file documented as of this encounter Plan of Treatment Not on file documented as of this encounter Visit Diagnoses Diagnosis Syncope and collapse- Primary documented in this encounter Care Teams Cook At School Relationship Specialty Start Date End Date Non-Staff, Physician NO ADDRESS ON FILE PCP - General 04/02/20 documented as of this encounter
--- OUTSIDE RECORDS SUMMARY | 2025-05-17 10:17 | XMS_ITS | Encounter Summary ---
Author Organization [facility] Address [address] [place] [address] Care Team Providers Care Waiter Name Role Phone Non-Staff, Physician Primary Care [...] on file Legal Sex Female 3:18 AM CREW PERSON Gender Identity Not on file Sexual Orientation Not on file documented as of this encounter Plan of Treatment Not on file documented as of this encounter Visit Diagnoses Diagnosis Headache(784.0)- Primary Headache documented in this encounter Care Teams Waiter Relationship Specialty Start Date End Date Non-Staff, Physician NO ADDRESS ON FILE PCP - General 04/02/20 documented as of this encounter
--- OUTSIDE RECORDS SUMMARY | 2025-05-17 10:17 | XMS_ITS | Encounter Summary ---
Author Organization [facility] Address [address] [place] [address] Care Team Providers Care Transmission Mechanic Name Role Phone Non-Staff, Physician Primary Care Provider Unava ilable Encounter Details Date Type Department Care Team (Latest Contact Info) Description 02/21/2006 Outpatient Historical [facility] Imaging Services [address] [place] [address] Antoinette Bradley MD [address] [facility] [address] [place] [address] Other Conditions of Brain (Primary Dx) Social History Tobacco Use Types Packs/Day Years Used Date Smoking Tobacco: Never Assessed Comments Unknown Sex and Gender Information Value Date Recorded Sex Assigned at Not on file Legal Sex Female 3:18 AM BOTTLE ASSEMBLER Gender Identity Not on file Sexual Orientation Not on file documented as of this encounter Plan of Treatment Not on file documented as of this encounter Visit Diagnoses Diagnosis Brain conditions NEC- Primary Other conditions of brain documented in this encounter Care Teams Transmission Mechanic Relationship Specialty Start Date End Date Non-Staff, Physician NO ADDRESS ON FILE PCP - General 04/02/20 documented as of this encounter
--- OUTSIDE RECORDS SUMMARY | 2025-05-17 10:17 | XMS_ITS | Encounter Summary ---
Author Organization [facility] [address] [address] Care Team Providers Care It Training Specialist Name Role Phone Non-Staff, Physician Primary Care Provider Unava ilable Encounter Details Date Type Department Care Team (Late st Contact Info) Description 02/21/2006 Outpatient Historical [facility] [place] [address] Social History Tobacco Use Types Packs/Day Years Used Date Smoking Tobacco: Never Assessed Comments Unknown Sex and Gender Information Value Date Recorded Sex Assigned at Not on file Legal Sex Female 3:18 AM WAITSTAFF CAPTAIN Gender Identity Not on file Sexual Orientation Not on file documented as of this encounter Plan of Treatment Not on file documented as of this encounter Visit Diagnoses Not on filedocumented in this encounter Care Teams It Training Specialist Relationship Specialty Start Date End Date Non-Staff, Physician NO ADDRESS ON FILE PCP - General 04/02/20 documented as of this encounter
--- OUTSIDE RECORDS SUMMARY | 2025-05-17 10:17 | XMS_ITS | Encounter Summary ---
Author Organization [facility] Address [address] [place] [address] Care Team Providers Care Drawing Frame Tender Name Role Phone Non-Staff, Physician Primary Care Provider Unava ilable Encounter Details Date Type Department Care Team (Latest Contact Info) Description 02/12/2000 Outpatient Historical [facility] Oseas Guidry MD [address] [place] [address] Bronchitis, not specified as acute or chronic (Primary Dx); Nonallopathic lesion of thoracic region, not elsewhere classified Social History Tobacco Use Types Packs/Day Years Used Date Smoking Tobacco: Never Assessed Comments Unknown Sex and Gender Information Value Date Recorded Sex Assigned at Not on file Legal Sex Female 3:18 AM TAX ASSOCIATE ATTORNEY Gender Identity Not on file Sexual Orientation Not on file documented as of this encounter Plan of Treatment Not on file documented as of this encounter Visit Diagnoses Diagnosis Bronchitis, not specified as acute or chronic- Primary Nonallopathic lesion of thoracic region, not elsewhere classified documented in this encounter Care Teams Drawing Frame Tender Relationship Specialty Start Date End Date Non-Staff, Physician NO ADDRESS ON FILE PCP - General 04/02/20 documented as of this encounter
--- OUTSIDE RECORDS SUMMARY | 2025-05-17 10:17 | XMS_ITS | Encounter Summary ---
Author Organization [facility] Address [address] [place] [address] Care Team Providers Care Hub Associate Name Role Phone Non-Staff, Physician Primary Care Provider Unava ilable Encounter Details Date Type Department Care Team (Latest Contact Info) Description 05/10/2000 Outpatient Historical [facility] Oseas Guidry MD [address] [place] [address] Anal or rectal pain (Primary Dx); Blood in stool Social History Tobacco Use Types Packs/Day Years Used Date Smoking Tobacco: Never Assessed Comments Unknown Sex and Gender Information Value Date Recorded Sex Assigned at Not on file 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
--- OUTSIDE RECORDS SUMMARY | 2025-05-17 10:17 | XMS_ITS | Encounter Summary ---
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
--- OUTSIDE RECORDS SUMMARY | 2025-05-17 10:17 | XMS_ITS | Encounter Summary ---
Author Organization [facility] Address [address] [place] [address] Care Team Providers Care Hand Baseball Sewer Name Role Phone Non-Staff, Physician Primary Care Provider Unava ilable Encounter Details Date Type Department Care Team (Latest Contact Info) Description 05/27/2003 Outpatient Historical [facility] SoteroShaheen MD [address] [address] SURGERY FOLLOWUP, UNSPEC (Primary Dx) Social History Tobacco Use Types Packs/Day Years Used Date Smoking Tobacco: Never Assessed Comments Unknown Sex and Gender Information Value Date Recorded Sex Assigned at Not on file 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
--- OUTSIDE RECORDS SUMMARY | 2025-05-17 10:17 | XMS_ITS | Encounter Summary ---
Author Organization [facility] Address [address] [place] [address] Care Team Providers Care Blood Bank Laboratory Professional Name Role Phone Non-Staff, Physician Primary Care Provider Unava ilable Encounter Details Date Type Department Care Team (Late st Contact Info) Description 03/22/2006 Outpatient Historical [facility] Quinten Aviles MD [address] [place] [address] [address] [place] [phone] Social History Tobacco Use Types Packs/Day Years Used Date Smoking Tobacco: Never Assessed Comments Unknown Sex and Gender Information Value Date Recorded Sex Assigned at Not on file 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
--- OUTSIDE RECORDS SUMMARY | 2025-05-17 10:17 | XMS_ITS | Encounter Summary ---
Author Organization [facility] Address [address] [place] [address] Care Team Providers Care Match Up Person Name Role Phone Non-Staff, Physician Primary Care Provider Unava ilable Encounter Details Date Type Department Care Team (Latest Contact Info) Description 02/14/2006 Outpatient Historical [facility] Neurology [address] [facility], [address] [place] [address] Antoinette Bradley MD [address] [place] [address] Unspecified Epilepsy without Mention of Intractable Epilepsy (CMS/HCC) (Primary Dx); Syncope and Collapse Social History Tobacco Use Types Packs/Day Years Used Date Smoking Tobacco: Never Assessed Comments Unknown Sex and Gender Information Value Date Recorded Sex Assigned at Not on file 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
--- OUTSIDE RECORDS SUMMARY | 2025-05-17 10:17 | XMS_ITS | Encounter Summary ---
Author Organization [facility] Address [address] [place] [address] Care Team Providers Care Ski Tow Operator Name Role Phone Non-Staff, Physician Primary Care Provider Unava ilable Encounter Details Date Type Department Care Team (Latest Contact Info) Description 04/21/2000 Outpatient Historical [facility] Oseas Guidry MD [address] [place] [address] Blood in stool (Primary Dx); Other malaise and fatigue Social History Tobacco Use Types Packs/Day Years Used Date Smoking Tobacco: Never Assessed Comments Unknown Sex and Gender Information Value Date Recorded Sex Assigned at Not on file 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
--- OUTSIDE RECORDS SUMMARY | 2025-05-17 10:17 | XMS_ITS | Encounter Summary ---
Author Organization [facility] Address [address] [place] [address] Care Team Providers Care Electrical Subcontractor Name Role Phone Non-Staff, Physician Primary Care Provider Unava ilable Encounter Details Date Type Department Care Team (Latest Contact Info) Description 01/19/2006 Outpatient Historical [facility] Gastroenterology- [place] [address] [facility] [address] [place] [address] Quinten Aviles MD [facility] [address] [facility] [address] [place] [address] Anal Fissure (Primary Dx); Irritable Bowel Syndrome Social History Tobacco Use Types Packs/Day Years Used Date Smoking Tobacco: Never Assessed Comments Unknown Sex and Gender Information Value Date Recorded Sex Assigned at Not on file 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
--- OUTSIDE RECORDS SUMMARY | 2025-05-17 10:17 | XMS_ITS | Encounter Summary ---
Author Organization [facility] Address [address] [place] [address] Care Team Providers Care Carpet Repairer Name Role Phone Non-Staff, Physician Primary Care Provider Unava ilable Encounter Details Date Type Department Care Team (Latest Contact Info) Description 06/20/2000 Outpatient Historical [facility] Oseas Guidry MD [address] [place] [address] Pain in joint, site unspecified (Primary Dx); Nonallopathic lesion of abdomen and other sites, not elsewhere classified Social History Tobacco Use Types Packs/Day Years Used Date Smoking Tobacco: Never Assessed Comments Unknown Sex and Gender Information Value Date Recorded Sex Assigned at Not on file 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
[2025-05-17 10:20] VITALS: BP 148/123; PULSE 142; RESP 18; TEMP 36.8; O2SAT 98; BMI 37.0
--- NOTE | 2025-05-17 10:24 | ECG_ITS ---
[facility]17 Pat Name: Nina Garcia Department: Room: Gender: Female Induction Coordination Engineer: : 1980 Requested By: James Mohan Order Number: [id number] Chan MD: Rodolfo Chen M.D. Measurements Intervals [place] Rate: 140 P: 34 AR: 112 QRS: 92 QRSD: 86 T: 29 QT: 329 QTc: 502 Interpretive Statements SINUS TACHYCARDIA WITH SHORT AR INTERVAL, POSSIBLE ATRIAL FLUTTER BORDERLINE RIGHT AXIS DEVIATION [QRS AXIS > 90] NONSPECIFIC T-WAVE ABNORMALITY Compared to ECG 04/25/2025 09:03:51 No significant changes Electronically Signed On 05-18-2025 13:07:34 CDT by Rodolfo Chen M.D. [id number] [id number]
--- NOTE | 2025-05-17 10:27 | XR_ITS ---
WS: [id number] XR chest 1V portable [id number] REASON FOR EXAM: htn FINDINGS: The chest is unchanged compared to 04/23/2025. The heart and mediastinum are within normal limits. Calcified granulomatous disease bilaterally. No significant acute pulmonary parenchymal or pleural finding is identified. Small linear area of atelectasis in the right lower lung. Bony thorax intact without significant focal abnormality. XR/XR chest 1V portable [id number] IMPRESSION: Chest essentially stable compared to the previous study with small area of atel ectasis in the right lower lung.
[2025-05-17 10:35] LABS: Hematocrit 45.5 % (36-47); Hemoglobin 14.10 g/dL (11.27-16.99); Mean Corpuscular HGB Conc 31.0 g/dL (30-55); Mean Corpuscular Hemoglobin 27.5 pg (27-33); Mean Corpuscular Volume 88.7 fl (85-98); Nucleated Red Blood Cells % 0 %; Platelet Count 222 10^3/cmm (157-399); Red Blood Count 5.13 10^6/uL (3.85-5.65); White Blood Count 9.66 10^3/uL (3.29-11.43)
[2025-05-17] MEDS: labetalol 5 mg/mL SDV 20mL 10 MG IVP (10:35)
[2025-05-17] MEDS: morphine 4 mg/mL SDV 1 mL IVP (10:35)
[2025-05-17] MEDS: ondansetron 2 mg/ML SDV 2 mL 4 MG IVP (10:35)
[2025-05-17 10:46] LABS: INR 0.98 (0.8-1.2); Prothrombin Time 13.60 SECONDS (12.1-14.9)
--- NOTE | 2025-05-17 10:46 | ED_ITS ---
HPI - General Adult 2 General: Chief complaint: General Medical Stated complaint: High BP High Heart Rate Time Seen by Provider: 05/17/25 10:17 Source: patient Mode of arrival: ambulatory Limitations: no limitations History of Present Illness: 45 old female states she has a history o f tachycardia states she has been dealing with tachycardia for quite some time. States she takes metoprolol 10 mg at home for this. She also has chronic neck and back pain as well. Patient states she was here at oncology to get her thyroid injection and they checked her heart rate and was on the 140s and sent her here. She denies any chest pain she states she is a mild headache and neck pain that is chronic in nature denies any shortness of breath. Associated symptoms: Reports headache(s) and palpitations; Deny chest pain or dyspnea Related Data Home Medications ?Medication ?Instructions ?Recorded ?Confirmed ondansetron 8 mg disintegrating 8 mg PO Q8H PRN Nausea And Vomiting 12/09/21 05/17/25 tablet allopurinol 300 mg tablet 300 mg PO QAM 11/25/2205/17 hydromorphone 4 mg tablet 4 mg PO Q4H PRN chronic pain 05/14/24 05/17/25 (Dilaudid) tizanidine 4 mg tablet 8 mg PO QID 03/15/25 5 prednisone 5 mg tablet 7.5 mg PO DAILY 04/18/25 Previous Rx's ?Medication ?Instructions ?Recorded promethazine 25 mg rectal 25 mg TX Q6H PRN nausea and 09/30/23 suppository vomiting #12 ea lurasidone 120 mg tablet 120 mg PO DAILY #30 tabs lamotrigine 200 mg tablet 200 mg PO QAM #30 tabs 11/09 lithium carbonate 150 mg capsule 150 mg PO QAM #30 cap s 01/10/25 lithium carbonate 300 mg capsule 300 mg PO .qhs #30 ca ps 01/10/25 lorazepam 2 mg tablet See Rx Instructions PO .COMP ZULLY 02/25/25 #60 tabs doxazosin 1 mg tablet 1 mg PO Q8H 60 days #180 tab s 04/19/25 fludrocortisone 0.1 mg tablet 0.2 mg (2 x 0.1 mg) PO D AILY 90 04/19/25 days #90 tabs amitriptyline 25 mg tablet 25 mg PO DAILY daily at nig ht 90 04/26/25 days #90 tabs diphenhydramine HCl 25 mg tablet 25 mg PO Q8H PRN head ache #90 tabs 04/26/25 metoprolol tartrate 25 mg tablet 12.5 mg (1/2 x 25 mg) PO BID #90 04/26/25 tabs prochlorperazine maleate 10 mg 10 mg PO .TID prn 60 da ys #90 tabs 04/26/25 tablet erenumab-aooe 140 mg/mL 140 mg SUBCUT Q30D #1 mL 10/23 subcutaneous auto-injector (Aimovig Autoinjector) levothyroxine 100 mcg/mL 550 mcg (5.5 mL) IM Q7D 30 d ays 05/02/25 intravenous solution #27.5 mL semaglutide 0.25 mg or 0.5 mg (2 0.5 mg (0.736 mL) SUB CUT Q7D 1 05/02/25 mg/3 mL) subcutaneous pen injector month #3 mL (Ozempic) prazosin 5 mg capsule 5 mg PO .qhs #30 caps trazodone 100 mg tablet 100 mg PO .qhs #30 tabs 04/29 05/23 Allergies Allergy/AdvReac Type Severity Reaction Status Date / Time midodrine Allergy Intermediate ALGY-Rash Verified 05/17/25 08:56 aspirin Allergy due to BUN Verified 05/17/25 08:56 levels coconut Allergy hives Verified 05/17/25 08:56 ketorolac (From Toradol) Allergy hives Verified 05/17/25 08:56 meloxicam (From Mobic) Allergy hives Verified 05/17/25 08:56 NSAIDS (Non-Steroidal Allergy Unknown Verified 05/17/25 08:56 Anti-Inflamma Review of Systems 2 Card: Reports: palpitations; Denies: chest pain Resp: Denies: dyspnea Musc: Reports: neck pain and back pain Neuro: Reports: headache(s) PFSH ED 2 PFSH: Medical History Hypertensive urgency Chronic pain with drug dependence Postsurgical hypothyroidism Goiter Resistant hypertension GERD (gastroesophageal reflux disease) Nausea & vomiting CKD (chronic kidney disease) Hypothyroid Hypertensive urgency, malignant Pulmonary embolism Chest pain at rest Psychiatric care HLD (hyperlipidemia) DM2 (diabetes mellitus, type 2) Chronic back pain Chronic neck and back pain Post traumatic stress disorder (PTSD) Bipolar 1 disorder, depressed, full remission Hypertensive emergency Palpitation Malignant hypertension Chronic renal disease Generalized anxiety disorder Surgical History History of back surgery H/O esophagogastroduodenoscopy (08/12/20) H/O angioplasty History of colonoscopy with polypectomy (08/12/20) History of spinal fusion 10/01/2013- C5-6, ACDFF Dr. Villanueva H/O rectal polypectomy Status post hemilaminotomy 01/06/2012, right L5-S1, disectomy and foraminotomy per Dr. Villanueva History of suburethral sling procedure anterior colporrhapy augmentd with porcine graft, cystoscopy performed on 03/08/[address] Haley History of total hysterectomy 2000 Hx of cholecystectomy History of appendectomy History of bilateral oophorectomy 2011 H/O total thyroidectomy Family History Mother Diabetes Pancreatic cancer Ovarian cancer Father Diabetes Hypertension Stroke COPD (chronic obstructive pulmonary disease) Grandfather Hypertension maternal Heart disease maternal Grandmother Colon cancer maternal Social History Smoking and tobacco/nicotine status: never used tobacco/nicotine Second hand smoke exposure: Yes Alcohol intake: never Substance/Drug Use: never Additional social history: well balanced diet Caregiver/support person: No Lives independently: Yes Household members: spouse Housing: House Marital status: Number of children: 8 Highest education level completed: GED or Equivalent service: No Current occupational status: unemployed Physical Exam 2 Const: COMMON NORMALS: no acute distress, patient oriented x3 and healthy appearing HENMT: COMMON NORMALS: normocephalic and atraumatic HEAD & SCALP: n ormocephalic and atraumatic Eye: COMMON NORMALS: conjunctivae normal CONJUNCTIVA: Yes conjunctivae normal Neck/C-Spine: COMMON NORMALS: full ROM and supple Chest: COMMONS NORMALS: normal inspection of the chest Resp: COMMON NORMALS: normal respiratory effort, No retractions, No use of accessory muscles and clear to auscultation bilaterally AUSCULTATION: clear to auscultation bilaterally Cardio: COMMON NORMALS: regular rhythm and No murmurs present (Cardio) R ATE: tachycardic RHYTHM: regular rhythm Extremity: COMMON NORMALS: normal to inspection and full ROM Neuro: COMMON NORMALS: patient oriented x3, moves all extremities and no focal motor deficits Psych: COMMON NORMALS: mental status grossly normal, Normal thought process present and cooperative THOUGHT PROCESS: Normal thought process present Skin: COMMON NORMALS: no rashes or lesions noted and no wounds GENERAL SKIN EXAM: no rashes or lesions noted Course 2 Vital Signs: Vital signs: Vital Signs Temperature 98.2 F 05/17/25 10:20 Pulse Rate 109 H 05/17/25 12:17 Respiratory Rate 18 05/17/25 10:20 Blood Pressure 137/111 05/17/25 12:17 Pulse Oximetry 99 05/17/25 12:17 Oxygen Delivery Me thod Room Air 05/17/25 10:20 [facility] - General Adult Medical Decision Making Patient presents here with hypertension along with headache and tachycardia. She has had these chronically. Patient here feels much improved after Reglan Benadryl along with labetalol. Her heart rate is improved down to 105 currently. Blood work here is all normal she has no signs of pulm embolism she has no signs of hemorrhoid hemorrhage or meningitis. She is stable for discharge she is to follow-up with her PCP and return if worsening. Medical Records I reviewed the patient's medical records. Lab Data I reviewed the patient's lab results. 05/17/25 10:30 05/17/25 10:30 Radiology Impressions Chest X-Ray 05/17/25 10:27 IMPRESSION: Chest essentially stable compared to the previous study with small area of atelectasis in the right lower lung. Laboratory Results WBC 9.66 10^3/uL (3.29-11.43) 05/17/25 10:30 RBC 5.13 10^6/uL (3.85-5.65) 05/17/25 10:30 Hgb 14.10 g/dL (11.27-16.99) 05/17/25 10:30 Hct 45.5 % (36-47) 05/17/25 10:30 MCV 88.7 fl (85-98) 05/17/25 10:30 MCH 27.5 pg (27-33) 05/17/25 10:30 MCHC 31.0 g/dL (30-55) 05/17/25 10:30 RDW 13.8 % (12.1-15.1) 05/17/25 10:30 Plt Count 222 10^3/cmm (157-399) 05/17/25 10:30 MPV 11.2 fL (7.4-10.4) H 05/17/25 10:30 Neut % (Auto) 73.0 % 05/17/25 10:30 Lymph % (Auto) 16.6 % 05/17/25 10:30 Bleckley % (Auto) 6.4 % 05/17/25 10:30 Eos % (Auto) 2.8 % 05/17/25 10:30 Baso % (Auto) 0.6 % 05/17/25 10:30 Neut # (Auto) 7.05 10^3/uL (1.8-7.7) 05/17/25 10:30 Lymph # (Auto) 1.6 10^3/uL (0.8-4.8) 05/17/25 10:30 Bleckley # (Auto) 0.6 10^3/uL (0.2-0.9) 05/17/25 10:30 Eos # (Auto) 0.3 10^3/uL (0.0-0.8) 05/17/25 10:30 Baso # (Auto) 0.1 10^3/uL (0.0-0.1) 05/17/25 10:30 Nucleated RBC % (auto) 0 % 05/17/25 10:30 Nucleated RBCs # 0.0 /100WBC 05/17/25 10:30 PT 13.60 SECONDS (12.1-14.9) 05/17/25 10:30 INR 0.98 (0.8-1.2) 05/17/25 10:30 Sodium 136 mmol/L (136-145) 05/17/25 10:30 Potassium 3.6 mmol/L (3.5-5.1) 05/17/25 10:30 Chloride 96 mmol/L (98-107) L 05/17/25 10:30 Carbon Dioxide 26 mmol/L (22-29) 05/17/25 10:30 Anion Gap 17.6 (5-19) 05/17/25 10:30 BUN 7 mg/dL (6-20) 05/17/25 10:30 Creatinine 1.2 mg/dL (0.5-0.9) H 05/17/25 10:30 GFR Calculation 48.2 mL/min (90-130) L 05/17/25 10:30 Glucose 108 mg/dL (65-115) 05/17/25 10:30 Calculated Osmolality 281 mOsm/kg (285-295) L 05/17/25 10:30 Calcium 10.0 mg/dL (8.5-10.5) 05/17/25 10:30 Total Bilirubin 0.6 mg/dL (0.15-1.2) 05/17/25 10:30 AST 51 U/L (0-32) H 05/17/25 10:30 ALT 78 U/L (0-33) H 05/17/25 10:30 Alkaline Phosphatase 73 U/L (35-105) 05/17/25 10:30 Total Protein 8.1 g/dL (6.6-8.7) 05/17/25 10:30 Albumin 4.5 g/dL (3.5-5.2) 05/17/25 10:30 Globulin 3.6 g/dL (1.3-4.6) 05/17/25 10:30 TSH 29.56 uIU/mL (0.27-4.20) H 05/17/25 10:30 Hemphill 0.2 mmol/L (0.6-1.2) L 05/17/25 10:30 All radiology interpretation(s) finalized by discharge EKG Data EKG 1: I personally reviewed and interpreted this EKG as follows: EKG interpretation date: 05/17/25 EKG interpretation time: 10:24 Interpretation: sinus tach hr [address] elevation qrs 86 qtc 410 Computer generated interpretation: Chest X-Ray 05/17/25 10:27 IMPRESSION: Chest essentially stable compared to the previous study with small area of atelectasis in the right lower lung. Discharge Plan Discharge Patient Disposition: Home Clinical Impression: Tachycardia, Hypertension Headache Qualifiers: Headache type: unspecified Headache chronicity pattern: acute headache I ntractability: intractable Qualified Code(s): R51.9 - Headache, unspecified Condition: Stable Prescriptions: No Action hydromorphone [Dilaudid] 4 mg tablet 4 mg PO Q4H PRN (Reason: chronic pain) lamotrigine 200 mg tablet 200 mg PO QAM Qty: 30 11RF Aimovig Autoinjector 140 mg/mL auto-injector 140 mg SUBCUT Q30D Qty: 1 11RF allopurinol 300 mg tablet 300 mg PO QAM tizanidine 4 mg tablet 8 mg PO QID prazosin 5 mg capsule 5 mg PO .qhs Qty: 30 11RF trazodone 100 mg tablet 100 mg PO .qhs Qty: 30 11RF levothyroxine 100 mcg/mL solution 550 mcg IM Q7D 30 Days Qty: 27.5 2RF Ozempic 0.25 mg or 0.5 mg (2 mg/3 mL) pen injector 0.5 mg SUBCUT Q7D 30 Days Qty: 3 3RF lurasidone 120 mg tablet 120 mg PO DAILY Qty: 30 11RF Rx Instructions: must administer with food (at least 350 calories) lithium carbonate 150 mg capsule 150 mg PO QAM Qty: 30 11RF lithium carbonate 300 mg capsule 300 mg PO .qhs Qty: 30 11RF lorazepam 2 mg tablet See Rx Instructions PO .COMPLEX Qty: 60 5RF Rx Instructions: Take one half tab (1mg) by mouth in AM and at noon, then take one tab (2mg) at bedtime ondansetron 8 mg tablet,disintegrating 8 mg PO Q8H PRN (Reason: Nausea And Vomiting) promethazine 25 mg suppository 25 mg TX Q6H PRN (Reason: nausea and vomiting) Qty: 12 0RF prednisone 5 mg tablet 7.5 mg PO DAILY doxazosin 1 mg Tablet 1 mg PO Q8H 60 Days Qty: 180 0RF fludrocortisone 0.1 mg Tablet 0.2 mg PO DAILY 90 Days Qty: 90 0RF prochlorperazine maleate 10 mg Tablet 10 mg PO .TID prn 60 Days Qty: 90 0RF Rx Instructions: MAX 30-40mg/24 hours dose diphenhydramine HCl 25 mg tablet 25 mg PO Q8H PRN (Reason: headache) Qty: 90 0RF Rx Instructions: Max 100mg/24 hours amitriptyline 25 mg tablet 25 mg PO DAILY 90 Days Qty: 90 0RF metoprolol tartrate 25 mg tablet 12.5 mg PO BID Qty: 90 0RF Discharge Orders: Discharge ED (Routine); Ordered 05/17/25 Ordered By: James Mohan Referrals: Michelle Rico, [facility] [Primary Care Provider, Nurse Practitioner] Discharge Diet: Advance as tolerated Discharge Activity: Resume usual activity Patient Instructions: Headache, Hypertension (ED) Print Language: Albanian Coding Level of Care Code ED Educational Paraprofessional for Ingrid Lindsay
[2025-05-17 10:59] LABS: Lithium 0.2 mmol/L (0.6-1.2)
[2025-05-17 11:02] LABS: Alanine Aminotransferase 78 U/L (0-33); Albumin Level 4.5 g/dL (3.5-5.2); Alkaline Phosphatase 73 U/L (35-105); Anion Gap 17.6 (5-19); Aspartate Amino Transferase 51 U/L (0-32); Blood Urea Nitrogen 7 mg/dL (6-20); Calcium 10.0 mg/dL (8.5-10.5); Carbon Dioxide 26 mmol/L (22-29); Chloride 96 mmol/L (98-107); Creatinine Clr Calc Pharmacy 68.3091; Globulin 3.6 g/dL (1.3-4.6); Glucose 108 mg/dL (65-115); Osmolality Calculated 281 mOsm/kg (285-295); Potassium 3.6 mmol/L (3.5-5.1); Sodium 136 mmol/L (136-145); Thyroid Stimulating Hormone 29.56 uIU/mL (0.27-4.20); Total Protein 8.1 g/dL (6.6-8.7)
[2025-05-17] MEDS: diphenhydrAMINE 50 mg/mL SDV 1mL IVP (11:34)
[2025-05-17] MEDS: metoclopramide 5 mg/mL SDV 2 mL 10 MG IVP (11:35)
[2025-05-17 12:17] VITALS: BP 137/111; PULSE 109; O2SAT 99
[2025-05-17 12:53] VITALS: BP 147/111; PULSE 109; O2SAT 98
== END 2025-05-17 12:54 | disposition home or self-care (01) ==
PROVIDERS: Emergency Provider Emergency Medicine; PCP Nurse Practitioner Family
DX: R00.0 Tachycardia, unspecified (principal); R51.9 Headache, unspecified; E78.5 Hyperlipidemia, unspecified; E11.22 Type 2 diabetes mellitus with diabetic chronic kidney disease; I12.9 Hypertensive chronic kidney disease with stage 1 through stage 4 chronic kidney disease, or unspecified chronic kidney disease; N18.9 Chronic kidney disease, unspecified
CPT/HCPCS: 36415; 71045; 80053; 80178; 84443; 85025; 85610; 93005; 96374; 96375; 99285; J1200; J2270; J2405; J2765; J3490; J7030

== ENCOUNTER 2025-05-22 09:00 | Oncology outpatient (recurring) (ONCR) | payer OTHER, SELFPAY ==
[2025-05-03] MEDS: levothyroxine 200 mcg SDV 550 MCG IM (09:36)
[2025-05-10] MEDS: levothyroxine 200 mcg SDV 550 MCG IM (09:46)
[2025-05-22] MEDS: levothyroxine 200 mcg SDV 550 MCG IM (09:28)
== END 2025-05-28 23:59 | disposition home or self-care (01) ==
PROVIDERS: PCP Nurse Practitioner Family; Visit Provider Internal Medicine
DX: E03.9 Hypothyroidism, unspecified; Z79.899 Other long term (current) drug therapy; Z53.9 Procedure and treatment not carried out, unspecified reason
CPT/HCPCS: 96372; J0650

== ENCOUNTER 2025-06-06 08:12 | Outpatient (CLI) | payer OTHER, SELFPAY ==
--- NOTE | 2025-06-06 08:18 | XRR_ITS ---
PROCEDURE INFORMATION: Exam: XR Right Shoulder Exam date and time: 06/06/2025 8:25 AM Age: 45 years old Clinical indication: Injury or trauma; Other: Pain; Injury details: -fall down steps x2 weeks ago where arms went behind body. ; Additional info: Right shoulder pain TECHNIQUE: Imaging protocol: Radiologic exam of the right shoulder. Views: 2 or more views. COMPARISON: CR XR shoulder RT min 2V* [id number] 01/19/2021 10:15 AM FINDINGS: Bones/joints: Normal. No significant arthritic changes. No acute osseous, joint, or soft tissue abnormality. Soft tissues: Normal. XR/XR shoulder RT min 2V* [id number] IMPRESSION: No acute findings.
--- NOTE | 2025-06-06 08:18 | XRR_ITS ---
PROCEDURE INFORMATION: Exam: XR Left Shoulder Exam date and time: 06/06/2025 8:25 AM Age: 45 years old Clinical indication: Injury or trauma; Other: Pain; Fall down steps x2 weeks ago where arms went behind body. ; Additional info: Left shoulder pain TECHNIQUE: Imaging protocol: Radiologic exam of the left shoulder. Views: 2 or more views. COMPARISON: CR XR shoulder LT min 2V* [id number] 06/11/2024 2:10 PM FINDINGS: Bones/joints: Normal. No fracture or dislocation. No acute osseous or joint abnormality. Soft tissues: Normal. XR/XR shoulder LT min 2V* [id number] IMPRESSION: No acute findings.
--- NOTE | 2025-06-06 08:20 | XRR_ITS ---
PROCEDURE INFORMATION: Exam: XR Right Knee Exam date and time: 06/06/2025 8:25 AM Age: 45 years old Clinical indication: Pain; Knee; Right; Additional info: Right knee pain TECHNIQUE: Imaging protocol: Radiologic exam of the right knee. Views: 3 views. COMPARISON: CR XR knees AP WB w RT lmt ORTH 05/16/2023 10:39 AM FINDINGS: Bones/joints: Normal. No fracture or dislocation. No acute osseous, joint, or soft tissue abnormality. Soft tissues: Normal. XR/XR knee RT 3V* [id number] IMPRESSION: No acute findings.
[2025-06-06 09:20] LABS: Lithium 0.3 mmol/L (0.6-1.2)
== END 2025-06-06 08:13 | disposition home or self-care (01) ==
PROVIDERS: PCP Nurse Practitioner Family; Visit Provider Psychiatry & Neurology Psychiatry
DX: Z79.899 Other long term (current) drug therapy (principal); W10.9XXA Fall (on) (from) unspecified stairs and steps, initial encounter; M25.561 Pain in right knee; M25.512 Pain in left shoulder; M25.511 Pain in right shoulder
CPT/HCPCS: 36415; 73030; 73562; 80178

== ENCOUNTER 2025-06-24 10:00 | Oncology outpatient (recurring) (ONCR) | payer OTHER, SELFPAY ==
[2025-05-31 09:36] VITALS: BP 86/70; PULSE 71; TEMP 36.1; O2SAT 95
[2025-05-31] MEDS: levothyroxine 200 mcg SDV 550 MCG IM (09:40)
[2025-06-10 12:42] VITALS: BP 100/74; PULSE 65; TEMP 35.9; O2SAT 97
[2025-06-10] MEDS: levothyroxine 200 mcg SDV 550 MCG IM (13:02)
--- NOTE | 2025-06-24 10:13 | PC.NURSE ---
Message was sent to Yolie Hector, with Dr Toure office advising patient arrived for scheduled Levothyroxine injection appearing very weak and lethargic. Patient's blood pressure was 72/54 (checked by two nurses manually) Per Dr Justin who is covering for Dr Toure, it is ok to proceed with the scheduled injection. Patient was advised if her blood pressure continued to drop or if she has additional symptoms to seek medical attention.
[2025-06-24] MEDS: levothyroxine 100 mcg/mL SDV 550 MCG IM (10:28)
[2025-06-24 10:32] VITALS: BP 72/54; PULSE 88; RESP 16; TEMP 36.7; O2SAT 97
== END 2025-06-28 23:59 | disposition home or self-care (01) ==
PROVIDERS: PCP Nurse Practitioner Family; Visit Provider Internal Medicine
DX: E03.9 Hypothyroidism, unspecified; Z79.899 Other long term (current) drug therapy; Z53.9 Procedure and treatment not carried out, unspecified reason
CPT/HCPCS: 96372; 96402; J0650; J9999

== ENCOUNTER 2025-07-19 09:30 | Oncology outpatient (recurring) (ONCR) | payer OTHER, SELFPAY ==
[2025-07-05] MEDS: levothyroxine 100 mcg/mL SDV 550 MCG IM (10:01)
[2025-07-12] MEDS: levothyroxine 100 mcg/mL SDV 550 MCG IM (09:31)
[2025-07-12 09:33] VITALS: BP 116/83; PULSE 69; RESP 16; TEMP 36.9; O2SAT 94
[2025-07-19] MEDS: levothyroxine 100 mcg/mL SDV 550 MCG IM (09:30)
[2025-07-19 09:36] VITALS: BP 132/74; PULSE 84; RESP 16; TEMP 36.6
== END 2025-07-28 23:59 | disposition home or self-care (01) ==
PROVIDERS: PCP Nurse Practitioner Family; Visit Provider Internal Medicine
DX: E03.9 Hypothyroidism, unspecified; Z79.899 Other long term (current) drug therapy; Z53.9 Procedure and treatment not carried out, unspecified reason
CPT/HCPCS: 36415; 96372; J9999

== ENCOUNTER 2025-08-16 09:30 | Oncology outpatient (recurring) (ONCR) | payer OTHER, SELFPAY ==
[2025-07-30] MEDS: levothyroxine 100 mcg/mL SDV 550 MCG IM (09:20)
[2025-07-30 09:23] VITALS: BP 120/86; PULSE 120; RESP 16; O2SAT 94
[2025-08-09] MEDS: levothyroxine 100 mcg/mL SDV 550 MCG IM (09:37)
[2025-08-09 09:50] VITALS: BP 144/88; PULSE 102
--- NOTE | 2025-08-16 11:48 | PC.NURSE ---
Pt presented to the infusion suite off balance and shaking uncontrollably. Pt stated that her BP was through the roof and had been all night. Pt stated she took her BP meds as she was supposed to but they were not working. I took the pt's BP and it was 196/129. Tried to take pt's BP manually but her HR was elevated and she was shaking so much it was hard to tell but her diastolic was still over 120. Transported pt to the ER.
[2025-08-16 11:59] VITALS: BP 196/129; PULSE 139
== END 2025-08-16 09:31 | disposition home or self-care (01) ==
PROVIDERS: PCP Nurse Practitioner Family; Visit Provider Internal Medicine
DX: Z53.9 Procedure and treatment not carried out, unspecified reason
CPT/HCPCS: 96372; J9999

== ENCOUNTER 2025-08-16 09:32 | Inpatient (IN) | payer OTHER, SELFPAY ==
--- OUTSIDE RECORDS SUMMARY | 2025-02-08 04:30 | XMS_ITS ---
Author Organization [facility] Address [address] [place] [address] Care Team Providers Care Chute Greaser Name Role Phone Michelle Xavier Primary Care Provider Unav ailable Qasim Donis Unavailable [phone] Eyad Valladares Unavailable [phone] REASON FOR VISIT LT SHOULDER Encounters Encounter Location Date Provider Diagnosis [facility] [address] [place] [address] 02/08/2025 Eyad Valladares Plan Of Treatment Next Appt Details Provider Name:Keke rodriguez, 10/04/2025 11:00:00 AM, [address] [place] [address], [address], [place], [address], Provider Name:Qasim Donis, 10/16/2025 08:40:00 AM, [address] [place], [address], Progress Notes * DENISSE VALENTINE KDOB: 8 (45 yo F)Acc No.[id number]:02/08/2025 Progress Notes Patient: DENISSE PANG Provider: Anand Valladares M.D. :1980 A ge:44 Y S ex:Female Date:02/08/2025 Address:[address] [place] [address] [address], [place], [place] Pcp:TORSTEN Stuart Subjective: * Chief Complaints: * L T SHOULDER Billing Information: * Procedure Codes: Care Plan Details* * Electronic signature of Boyd Valladares MD on 08/16/2025 at 09:37 AM PSYCH SOCIAL WORKER Sign off status: Pending * Provider: Anand Valladares M.D. Date: 0 02/08/2025 Generated for Fany dunaway/Shauna/Joycelyn on: 1 10/17/2024 09:37 AM PSYCH SOCIAL WORKER
--- OUTSIDE RECORDS SUMMARY | 2025-02-11 09:10 | XMS_ITS ---
Author Organization [facility] Address [address] [place] [address] Care Team Providers Care Patternmaker Hand Name Role Phone Michelle Xavier Primary Care Provider Unav ailable Qasim Donis Unavailable [phone] Thania Cardenas Unavailable [phone] REASON FOR VISIT 6-7 mo labs @ [facility] Encounters Encounter Location Date Provider Diagnosis [facility] [address] [place] [address] [address] [place] [address] 02/11/2025 Thania Cardenas Plan Of Treatment Next Appt Details Provider Name:Keke rodriguez, 10/04/2025 11:00:00 AM, [address] [place] [address] [address], [place], [address], Provider Name:Qasim Donis, 10/16/2025 08:40:00 AM, [address] [place], [address], Progress Notes * DENISSE VALENTINE KDOB: 8 (45 yo F)Acc No.[id number]:02/11/2025 Progress Notes Patient: Vijay ROUSE DENISSE Enriquez Provider: Heber Cardenas CNP :1980 A ge:45 Y S ex:Female Date:02/11/2025 Address:[address] [place] [address] [address], [place] Pcp:TORSTEN Stuart Subjective: * Chief Complaints: * 6 -7 mo labs @ [facility] Billing Information: * Procedure Codes: Care Plan Details* * Electronic signature of Geovany Cardenas CNP on 08/16/2025 at 09:37 AM VEHICLE BODY MAKER Sign off status: Pending * Provider: Heber Cardenas CNP Date: 0 02/11/2025 Generated for Fany dunaway/Shauna/Joycelyn on: 1 10/17/2024 09:37 AM VEHICLE BODY MAKER
--- OUTSIDE RECORDS SUMMARY | 2025-08-09 03:11 | XMS_ITS ---
Author Organization [facility] Address [address] [place] [address] Care Team Providers Care Acetylene Cutter Name Role Phone Trisha Michelle SARMIENTO Primary Care Provider Unav ailable Qasmi Donis [phone] REASON FOR VISIT Wp pt rx Medications Medication SIG (Take, Route, Frequency, Duration) Notes Start Date End Date Status tiZANidine HCl 4 MG Tablet 1 tablet as needed Orally every 8 hours; Duration: 30 days As needed Not to exceed 3 per day 08/09/2025 Active Encounters Encounter Location Date Provider Diagnosis [facility] [address] [place] [id number] 08/09/2025 Qasim Donis Chronic pain syndrome G89.4 Assessments Encounter Date Diagnosis (ICD Code) Assessment Notes Treatment Notes Treatment Clinical Notes Section Notes 08/09/2025 Chronic pain syndrome (ICD-10 - G89.4) Plan Of Treatment Medication Medication Name Sig Start Date Stop Date Notes tiZANidine HCl 4 MG Tablet 1 tablet as n eeded Orally every 8 hours; Duration: 30 days 08/09/2025 Next Appt Details Provider Name:Keke rodriguez, 10/04/2025 11:00:00 AM, [address] [place] [address] Dr, [address], [place], [address], Provider Name:Qasim Donis, 10/16/2025 08:40:00 AM, [address] [place], [address], Progress Notes * DENISSE VALENTINE KDOB: [birth year] (45 yo F)Acc No.[id number]:08/09/2025 Patient: DENISSE PANG :1980 A ge:45 Y S ex:Female Address:[address] [place] [address], [id number] * Refills Refill tiZANidine HCl Tablet, 4 MG, Orally, 90 Tablet, 1 tablet as needed, every 8 hours, As needed Not to exceed 3 per day, 30 days, Refills=0 Subjective: * Chief Complaints: * W p pt rx Assessment: * Assessment: 1. C hronic pain syndrome - G89.4 Plan: * Treatment: * true * Date: Generated for Fany dunaway/Shauna/Joycelyn on: 1 10/17/2024 09:36 AM G[facility] BEATER
--- OUTSIDE RECORDS SUMMARY | 2025-08-14 02:20 | XMS_ITS ---
Author Organization [facility] Address [address] [place] [address] Care Team Providers Care Warper Creeler Name Role Phone Michelel Xavier Primary Care Provider Unav ailable Qasim Donis Unavailable [phone] REASON FOR VISIT 1 month f/u Medications Medication SIG (Take, Route, Frequency, Duration) Notes Start Date End Date Status Promethazine HCl 25 MG/ML Solution as directed Injection Active predniSONE 5 MG/ML Concentrate 1 mL with food or milk Orally Once a day Active Ativan 2 MG Tablet 1 tablet at bedtime as needed Orally Once a day Not-Taking Terazosin HCl 5 MG Capsule 1 capsule at bedtime Orally Twice a day; Duration: 30 days Active Sodium Chloride Acti ve Ondansetron 8 MG Tablet Disintegrating 1 tablet on the tongue and allow to dissolve as needed Orally Once a day Active Morphine Sulfate 15 MG Tablet 1 tablet as needed Orally every 6 hours; Duration: 30 days As needed Not to exceed 4 per day Fill 08/18/2025 08/14/2025 09/13/2025 Active Metoprolol Tartrate 25 MG Tablet 1 tablet with food Orally Twice a day Active Lurasidone HCl 80 MG Tablet 1 tablet in the evening with food Orally Once a day Active Akeley Carbonate ER 450 MG Tablet Extended Release 1 tablet at bedtime Orally Once a day Active Dilaudid 4 MG Tablet 1 tablet as needed Orally every 6 hrs 4 times a day Active Allopurinol 300 MG Tablet Take 1 tablet by mouth once daily; Duration: 30 Active tiZANidine HCl 4 MG Tablet 1 tablet as needed Orally every 8 hours; Duration: 30 days As needed Not to exceed 3 per day 08/09/2025 Active lamoTRIgine 200 MG Tablet 1 tablet Orally Once a day Active Fludrocortisone Acetate 0.1 MG Tablet 1 tablet Orally Once a day Active Levothyroxine Sodium 112 MCG Capsule 1 tablet in the morning on an empty stomach Orally Once a day Not-Taking Zolpidem Tartrate 10 MG Tablet 1 tablet at bedtime as needed Orally Once a day Not-Taking Spironolactone-HCTZ 25-25 MG Tablet 1 tablet Orally Once a day Not-Taking Prazosin HCl 2 MG Capsule 1 capsule at bedtime Orally Once a day Not-Taking Ozempic (0.25 or 0.5 MG/DOSE) 2 MG/1.5ML Solution Pen-injector as directed Subcutaneous weekly 0.5 mg weekly Not-Taking Social History Tobacco Use: Social History Observation [...] Details Miscellaneous: Marital status: , m arried, Sexually active: yes 1-2x months; pa inful intercourse Children: 4, 4, 4 Sexual abuse: no : No serv ice, No service, No service Education High School Dipl avel, High School Diploma, High School Diploma Drugs/Alcohol: Do you smoke marijuana? De nies Do you drink alcohol? 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 She completed her MRI, so we reviewed it today. It showed moderate foraminal stenosis, worse on the right side at L5-S1, the level below the surgical site. We discussed treatment options and injections. She says that she tried them before without relief. Certainly, these are not things we have done in the past at our clinic. We will continue a dialogue. She requested medication to take in between her pain medication or potentially an extended-release option, neither of which is an option for her with her concurrent use of Ativan, Tizanidine, and morphine. We discussed this at length. She will discuss this with her psychiatrist at her next visit in August. Her UDS and pill counts have been consistent with her current treatment regimen. We will continue her medications unchanged. We will follow up in two months and proceed accordingly. 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 Qasim Donis. I, Dr. Qasim Donis, personally performed the services described in this documentation, as scribed by Bianka Ray, and it is both accurate and complete. Plan Of Treatment Medication Medication Name Sig Start Date Stop Date Notes Morphine Sulfate 15 MG Tablet 1 tablet as needed Orally every 6 hours; Duration: 30 days 08/14/2025 09/13/2025 Fill 08/18/2025 tiZANidine HCl 4 MG Tablet 1 tablet as n eeded Orally every 8 hours; Duration: 30 days 08/09/2025 Treatment Notes Assessment Notes Chronic pain syndrome I had a nice visit with the patient and her today regarding her chronic pain issues. She completed her MRI, so we reviewed it today. It showed moderate foraminal stenosis, worse on the right side at L5-S1, the level below the surgical site. We discussed treatment options and injections. She says that she tried them before without relief. Certainly, these are not things we have done in the past at our clinic. We will continue a dialogue. She requested medication to take in between her pain medication or potentially an extended-release option, neither of which is an option for her with her concurrent use of Ativan, Tizanidine, and morphine. We discussed this at length. She will discuss this with her psychiatrist at her next visit in August. Her UDS and pill counts have been consistent with her current treatment regimen. We will continue her medications unchanged. We will follow up in two months and proceed accordingly. Other Georgina, Bianka Ray, am scribing for Dr. Qasim Donis. I, Dr. Qasim Donis, personally performed the services described in this documentation, as scribed by Bianka Ray, and it is both accurate and complete. Next Appt Details Follow Up: 2 Months, Reason: Provider Name:Keke rodriguez, 10/04/2025 11:00:00 AM, [address] [place] [address] [address], [place], [phone], Provider Name:Qasim Donis, 10/16/2025 08:40:00 AM, [address] [place], [phone], History and Physical Notes * HPI (History of Present Illness) Category Sub-Category Detail Notes Category Not es Provider Note My MRI. Same old, same old. I was taking three Tizanidine. I've had my nerve ending burned. It didn't help. Patient returns to the clinic for a 1-month follow-up visit. She reports that she completed her MRI, and she presents today to discuss it. She is prescribed MS IR #120 by the clinic. 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 Pain Details Pain Location Neck,Headaches,M id-Back,Right Shoulder,Lower Back Quality Sharp/Stabbing,Pins/ [place],Throbbing,Burn/Tingle Severity of pain at its worst 8 Severity of pain at its best 4 Severity of average pain 7 Severity of pain right now 8 Severity of pain on medication 4 When did you last take your pain medicine 08/13/2025 at 7pm moriphine Medication Details Do you have a lock b ox or safe place for medication away from minors and/or others? Yes Do you have any leftover pain medication building up at your house? No Do you understand that pain medication c an be addicting and can cause overdose? Yes Do you feel you can REDUCE the amount of medication you take today? No Opioid Assessment Tools Pill Count 2 Last Urine Drug Screen 06/19/25 Conf Today's Rapid Urine Drug Screen None [place] Prescription Monitoring Program [place] PDMP, found to be consistent with treatment history, reviewed todayLorazepam 2 mg #60 filled 07/18/2025 (Patient has Narcan) Treatment History Test undergone in the past 10/25/24 Xray Cervical Spine Past medication you have taken MSIR 15mg #120 Treatments you have had None Ipma Examination Category Sub-Category Detail Notes Category Not es General Examination Constitutional: Patient appears to be appropriate looking for stated age, obese. Patient is awake, alert and oriented to person, place and time with recent/ remote memory intact. , in no acute distress. Respiratory: Visual Inspection: breathing equal bilaterally, trachea midline. HEENT: Atraumatic, normocephalic Pupils grossly normal on inspection. Cardiovascular: Cardiac rhythm is regular. Gastrointestinal: Abdomen grossly normal. No obvious firmness, tenderness or masses noted. Cervical Spine: Cervical Spine is grossly stable, supple and normal curvature noted. Anterior surgical scar well healed. Palpation Cervical Spine: bilateral palpation of cervical paraspinals was painful. Cervical ROM: generalized reduced ROM. Cervical facet loading maneuvers of lateral flexion reproduced characteristic neck pain bilaterally. Pain noted with anterior neck flexion. There is pain with extension of cervical spine. There was pain while patient was made to do left lateral rotation. Left lateral flexion causes pain. Painful right lateral rotation of cervical spine has been reported by the patient. Right lateral flexion is associated with pain. Tightness in paraspinal, trapezius and sternocleidomastoid muscles. Spurlings test is positive on the right. Strength/ tone : normal Lumbar Spine: Inspection of the lumbar spine reveals loss of normal lordosis with no obvious scoliosis or asymmetry noted, midline scars consistent with hx Range of Motion: Greatly reduced ROM in all directions. Hyperextension at lumbar spine produced lower back pain. Bilateral facet loading maneuvers (lateral flexion/extension/bending) reproduced lower back pain. Bilateral lateral rotation also causes some pain. Anterior lumbar flexion causes pain. Pain during lumbar extension was observed. Left lateral flexion causes pain. Right lateral flexion causes pain. + tightness and spasm of b/l paraspinals. Joints- Hips/ SI Joint: SI Joint Palpation : mild SI joint tenderness b/l. Neurology - Mental Status: Mood and affect are grossly normal. Neurology - Coordination: Antalgic gait. Neurology - Straight Leg Raising: Right: 60 degrees and positive. Left: 90 degrees and negative. Neurology - Motor Strength: Left UE strength - Flexors: 4+/5. Right UE strength - Flexors: 4+/5. Left UE strength - Extensors: 4+/5. Right UE strength - Extensors: 4+/5. Left UE Tone: Normal. Right UE Tone: Normal. Left LE strength - Flexors: 4+/5. Right LE strength - Flexors: 4/5. Left LE strength - Extensors: 4+/5. Right LE strength - Extensors: 4/5. Left LE Tone: Normal. Right LE Tone: Normal. Neurology - Sensation: Right C6 and Right L5 paresthesias Neurology - Deep Tendon Reflexes: Left biceps (DTR): 2. Right biceps (DTR): 2. Left triceps (DTR): 2. Right triceps (DTR): 2. Left brachioradialis (DTR): 2. Right brachioradialis (DTR): 2. Left patellar (DTR): 1. Right patellar (DTR): 1. Left achilles (DTR): 0. Right achilles (DTR): 0. Skin: Scars : Consistent with prior surgeries Inspection: no obvious bruising, rash, ulcerations or discolorations noted. Progress Notes * DENISSE VALENTINE KDOB: [birth year] (45 yo F)Acc No.[id number]:08/14/2025 Progress Notes Patient: R OUSE, DENISSE K Provider: Vijay Donis D.O. 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 Quality S harp/Stabbing,Pins/[place],Throbbing,Burn/Tingle.? Severity of pain at its worst 8 . Severity of pain at its best 4 . Severity of pain on medication 4 . Severity of average pain 7 . Severity of pain right now 8 . When did you last take your pain medicine 1 10/14/2024 at 7pm moriphine. Buck edication Details: Do you have a lock box or safe place for medication away from minors and/or others? Y es. Do you have any leftover pain medication building up at your house? N o. Do you understand that pain medication can be addicting and can cause overdose? Y es. Do you feel you can REDUCE the amount of medication you take today? N o. O pioid Assessment Tools: Pill Count 2 . Last Urine Drug Screen 1 Conf. Today's Rapid Urine Drug Screen N one. [place] Pres[place] Monitoring [place], found to be consistent with treatment history, reviewed today L orazepam 2 mg #60 filled 07/18/2025 (Patient has Narcan). T reatment History: Test undergone in the past 10/25/24 Xray Cervical Spine. Past medication you have taken MSIR 15mg #120. Treatments you have had N one Ipma. Petey mcintyre Note: My MRI. Same old, same old. I was taking three Tizanidine. I've had my nerve ending burned. It didn't help. Patient returns to the clinic for a 1-month follow-up visit. She reports that she completed her MRI, and she presents today to discuss it. She is prescribed MS IR #120 by the clinic. 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 * ROS: G eneral/Constitutional: Fatigue/Tiredness Y es. F ever N o. R ecent weight gain N o. R ecent weight loss N o. R espiratory: Cough N o. W heezing N o. S hortness of breath?No. G astrointestinal: Abdominal pain N o. C onstipation N o. N ausea?No. V omiting N o. P sychiatric: Anxiety Y es. D epression Y es. S uicidal thoughts N o. P anic Attacks Y es. * Screening: * COMM - Current Opioid Misuse Measure: D ocumented By: Debbie Hilario core: 7?Interpretation: Score indicates low risk of abuse behaviors C OMM - Current Opioid Misuse Measure How often have you had trouble with thinking clearly or had memory problems?SometimesHow often do people complain that you are not completing necessary tasks? (i.e., doing things that need to be done, such as going to class, work or appointments)NeverHow often have you had to go to someone other than your prescribing physician to get sufficient pain relief from medications? (i.e., another doctor, the Emergency Room, friends, street sources)SeldomHow often have you taken your medications differently from how they are prescribed?NeverHow often have you seriously thought about hurting yourself?NeverHow much of your time was spent thinking about opioid medications (having enough, taking them, dosing schedule, etc.)?SeldomHow often have you been in an argument?NeverHow often have you had trouble controlling your anger (e.g., road rage, screaming, etc.)?NeverHow often have you needed to take pain medications belonging to someone else?NeverHow often have you been worried about how you're handling your medications?NeverHow often have others been worried about how you're handling your medications?NeverHow often have you had to make an emergency phone call or show up at the clinic without an appointment?NeverHow often have you gotten angry with people?SeldomHow often have you had to take more of your medication than prescribed?NeverHow often have you borrowed pain medication from someone else?NeverHow often have you used your pain medicine for symptoms other than for pain (e.g., to help you sleep, improve your mood, or relieve stress)?NeverHow often have you had to visit the Emergency Room?Sometimes * Medical History: Bipolar Cervical disc disorder [...] 41 yrs, diabetes. F amily History Verified.. fibromyalgia, chronic pain, psychiatric problems, stroke, cancer, rheumatoid arthritis. * Social History: T obacco Use: x Tobacco Use/Smoking A re you a n onsmoker D rugs/Alcohol: D rugs H ave you used drugs other than those for medical reasons in the past 12 months? Y es Alcohol Screen (Audit-C) D id you have a drink containing alcohol in the past year? N o P oints 0 I nterpretation N egative Caffeine I ntake: 1 -2 cups per day Do you smoke marijuana?: Denies. Do you drink alcohol?: No. M iscellaneous: E ducation: High School Diploma, High School Diploma, High School Diploma. Children: 4, 4, 4. Marital status: , , . : No service, No service, No service. Sexual abuse: no. Sexually active: yes, 1-2x months; painful intercourse. S ocial History Verified. L ifetime non-smoker. * Medications: T akingAllopurinol 300 MG Tablet Take 1 tablet by mouth once daily Dilaudid 4 MG Tablet 1 tablet as needed Orally every 6 hrs , Notes to Pharmacist: 4 times a dayFludrocortisone Acetate 0.1 MG Tablet 1 tablet Orally Once a day lamoTRIgine 200 MG Tablet 1 tablet Orally Once a day Akeley Carbonate ER 450 MG Tablet Extended Release 1 tablet at bedtime Orally Once a day Lurasidone HCl 80 MG Tablet 1 tablet in the evening with food Orally Once a day Metoprolol Tartrate 25 MG Tablet 1 tablet with food Orally Twice a day Ondansetron 8 MG Tablet Disintegrating 1 tablet on the tongue and allow to dissolve as needed Orally Once a day predniSONE 5 MG/ML Concentrate 1 mL with food or milk Orally Once a day Promethazine HCl 25 MG/ML Solution as directed Injection Sodium Chloride Terazosin HCl 5 MG Capsule 1 capsule at bedtime Orally Twice a day tiZANidine HCl 4 MG Tablet 1 tablet as needed Orally every 8 hours As needed Not to exceed 3 per dayTaking Allopurinol 300 MG Tablet Take 1 tablet by mouth once daily Taking Dilaudid 4 MG Tablet 1 tablet as needed Orally every 6 hrs , Notes to Pharmacist: 4 times a dayTaking Fludrocortisone Acetate 0.1 MG Tablet 1 tablet Orally Once a day Taking lamoTRIgine 200 MG Tablet 1 tablet Orally Once a day Taking Akeley Carbonate ER 450 MG Tablet Extended Release 1 tablet at bedtime Orally Once a day Taking Lurasidone HCl 80 MG Tablet 1 tablet in the evening with food Orally Once a day Taking Metoprolol Tartrate [...] Solution as directed Injection Taking Sodium Chloride Taking Terazosin HCl 5 MG Capsule 1 capsule at bedtime Orally Twice a day Taking tiZANidine HCl 4 MG Tablet 1 tablet as needed Orally every 8 hours As needed Not to exceed 3 per dayNot-TakingAtivan 2 MG Tablet 1 tablet at bedtime [...] Medication List reviewed and reconciled with the patientNot- Taking Ativan 2 MG Tablet 1 tablet at [...] Tablet 1 tablet Orally Once a day Not- Taking Zolpidem Tartrate 10 MG Tablet 1 tablet at bedtime as needed Orally Once a day Medication List reviewed and reconciled with the patient Objective: * Vitals: H t: 65 in, Wt:212lbs, Wt-k.16 kg, BMI:35.27Index, Ht-cm: 165.1 cm. * P ast Orders: L ab:Urine Confirmation Panel (instrument) - [id number] (Order Date - 06/19/2025) (Collection Date & Time - 06/19/2025) Value Reference Range 6-Acetylmorphine 0 <6 - ng/mL 7-Aminoclonazepam 0 <60 - ng/mL Alprazolam 0 <60 - ng/mL Amphetamine 0 <75 - ng/mL aOH-Alprazolam 0 <60 - ng/mL Buprenorphine 0.0 <7.5 - ng/mL Norbuprenorphine 0.0 <37.5 - ng/mL Carisoprodol 0 <75 - ng/mL Codeine 0 <75 - ng/mL EDDP 0 <75 - ng/mL Fentanyl 0 <6 - ng/mL Hydrocodone 0 <75 - ng/mL Hydromorphone 0 <75 - ng/mL Lorazepam 774 H <60 - ng/mL MDMA 0 <75 - ng/mL Meperidine 0.0 <37.5 - ng/mL Meprobamate 0 <75 - ng/mL Methamphetamine 0 <75 - ng/mL Methadone 0 <75 - ng/mL Morphine 4026 H <75 - ng/mL Nordiazepam 0 <60 - ng/mL Norfentanyl 0 <6 - ng/mL Normeperidine 0.0 <37.5 - ng/mL O-desmethyltramadol 0 <75 - ng/mL Oxazepam 0 <60 - ng/mL Oxycodone 0.0 <37.5 - ng/mL Oxymorphone 0 <75 - ng/mL Phencyclidine 0.0 <7.5 - ng/mL Tapentadol 3.6 <37.5 - ng/mL Temazepam 5 <60 - ng/mL Tramadol 6 <75 - ng/mL Norhydrocodone 0 <75 - ng/mL Noroxycodone 0 <38 - ng/mL Pregabalin 8455 H <225 - ng/mL Gabapentin 0 <225 - ng/mL Benzoylecgonine 0.0 <37.5 - ng/mL 4-Hydroxy Xylazine 0 <25 - ng/mL I maging:MRI Lumbar Spine w/o Cont-[id number] (Order Date - 06/19/2025) (Performed Date - 07/18/2025) Notes: Fatimah Abreu 06/20/2025 02:18:50 PM CDT > No PA Req ref [id number] * Examination: G eneral Examination: C onstitutional: Patient appears to be appropriate looking for stated age, obese. Patient is awake, alert and oriented to person, place and time with recent/ remote memory intact. , in no acute distress. Respiratory: Visual Inspection: breathing equal bilaterally, trachea midline. HEENT: Atraumatic, normocephalic Pupils grossly normal on inspection. Cardiovascular: Cardiac rhythm is regular. Gastrointestinal: Abdomen grossly normal. No obvious firmness, tenderness or masses noted. Cervical Spine: Cervical Spine is grossly stable, supple and normal curvature noted. Anterior surgical scar well healed. Palpation Cervical Spine: bilateral palpation of cervical paraspinals was painful. Cervical ROM: generalized reduced ROM. Cervical facet loading maneuvers of lateral flexion reproduced characteristic neck pain bilaterally. Pain noted with anterior neck flexion. There is pain with extension of cervical spine. There was pain while patient was made to do left lateral rotation. Left lateral flexion causes pain. Painful right lateral rotation of cervical spine has been reported by the patient. Right lateral flexion is associated with pain. Tightness in paraspinal, trapezius and sternocleidomastoid muscles. Spurlings test is positive on the right. Strength/ tone : normal Lumbar Spine: Inspection of the lumbar spine reveals loss of normal lordosis with no obvious scoliosis or asymmetry noted, midline scars consistent with hx Range of Motion: Greatly reduced ROM in all directions. Hyperextension at lumbar spine produced lower back pain. Bilateral facet loading maneuvers (lateral flexion/extension/bending) reproduced lower back pain. Bilateral lateral rotation also causes some pain. Anterior lumbar flexion causes pain. Pain during lumbar extension was observed. Left lateral flexion causes pain. Right lateral flexion causes pain. + tightness and spasm of b/l paraspinals. Joints- Hips/ SI Joint: SI Joint Palpation : mild SI joint tenderness b/l. Neurology - Mental Status: Mood and affect are grossly normal. Neurology - Coordination: Antalgic gait. Neurology - Straight Leg Raising: Right: 60 degrees and positive. Left: 90 degrees and negative. Neurology - Motor Strength: Left UE strength - Flexors: 4+/5. Right UE strength - Flexors: 4+/5. Left UE strength - Extensors: 4+/5. Right UE strength - Extensors: 4+/5. Left UE Tone: Normal. Right UE Tone: Normal. Left LE strength - Flexors: 4+/5. Right LE strength - Flexors: 4/5. Left LE strength - Extensors: 4+/5. Right LE strength - Extensors: 4/5. Left LE Tone: Normal. Right LE Tone: Normal. Neurology - Sensation: Right C6 and Right L5 paresthesias Neurology - Deep Tendon Reflexes: Left biceps (DTR): 2. Right biceps (DTR): 2. Left triceps (DTR): 2. Right triceps (DTR): 2. Left brachioradialis (DTR): 2. Right brachioradialis (DTR): 2. Left patellar (DTR): 1. Right patellar (DTR): 1. Left achilles (DTR): 0. Right achilles (DTR): 0. Skin: Scars : Consistent with prior surgeries Inspection: no obvious bruising, rash, ulcerations or discolorations noted. Assessment: * Assessment: 1. C hronic pain syndrome - G89.4 (Primary) 2 . 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 L ana laura term (current) use of opiate analgesic - Z79.891? 4. R adiculopathy, lumbar region - M54.16 5 . H x of cervical spinal arthrodesis - Z98.1 6 . A bnormality of gait and mobility - R26.9 ? Plan: * Treatment: 2. 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 3. O thers Notes: IBianka, am scribing for Dr. Qasim Donis. I, Dr. Qasim Donis, personally performed the services described in this documentation, as scribed by Bianka Ray, and it is both accurate and complete. 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 Date: 10/15/2024 Generated for Fany dunaway/Shauna/Joycelyn on: 10/17/2024 09:36 AM FIRE ALARM INSTALLER
[2025-08-16] VITALS (72 sets, daily range): BP systolic 59–212; BP diastolic 43–138; PULSE 70–148; RESP 8–20; TEMP 36.4–37.3; O2SAT 84–100; BMI 36.3
--- OUTSIDE RECORDS SUMMARY | 2025-08-16 09:36 | XMS_ITS | Encounter Summary ---
Author Organization [facility] Address [address] [place] [address] Care Team Providers Care Pca Name Role Phone Non-Staff, Physician Primary Care Provider Unava ilable Encounter Details Date Type Department Care Team (Latest Contact Info) Description 07/11/2000 Outpatient Historical HIS [facility] Oseas Guidry MD [address] [place] [address] Abdominal pain, unspecified site (Primary Dx); Other malaise and fatigue Social History Tobacco Use Types Packs/Day Years Used Date Smoking Tobacco: Never Assessed Comments Unknown Sex and Gender Information Value Date Recorded Sex Assigned at Not on file 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
--- OUTSIDE RECORDS SUMMARY | 2025-08-16 09:36 | XMS_ITS | Clinical Summary ---
Author Organization [facility] Address [address] [place] [address] Care Team Providers Care Steam Tunnel Feeder Name Role Phone Non-Staff, Physician Primary Care Provider Unava ilable Allergies Active Allergy Reactions Criticality Noted Date Comments Aspirin Other (See Comments) 04/05/2019 Was instructed not to take medication Ketorolac Unknown 04/28/2011 Meloxicam Unknown 04/28/2011 Nsaids (Non-Steroidal Anti-Inflammatory Drug) Other (See Comments) 04/05/2019 Cant take because of [place] Medications lamoTRIgine (LaMICtal) 200 mg tablet Take [...] 4-6 hours as needed (verified through pharmacy rupinedr) 9 Active pantoprazole (PROTONIX) 40 mg Tablet, [...] daily. A ctive naloxone (NARCAN) 4 mg/spray [place], Non-Aerosol as directed 0 Active ondansetron (ZOFRAN [...] disorder, unspecified 04/06/2019 Generalized abdominal pain 04/05/2019 Encounters Date Type Department Care Team Description 07/23/2025 External Device Data [facility] ABSTRACTION Provider, Abstract 07/23/2025 External Device Data [facility] ABSTRACTION Provider, Abstract 07/23/2025 External Device Data [facility] ABSTRACTION Provider, Abstract 07/18/2025 7:36 AM NON DESTRUCTIVE EVALUATION SPECIALIST - 07/18/2025 11:59 PM NON DESTRUCTIVE EVALUATION SPECIALIST Hospital Encounter [facility] [place] [address] [place] [address] Qasim Donis, DO Discharge Disposition: Home or Self Care 06/20/2025 Orders Only [facility] [place] [address] [place] [address] Qasim Donis, DO 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); Radiculopathy, lumbar region from Last 3 Months Immunizations Immunization Administration Dates Next Due Influenza [...] on file Legal Sex Female 1:20 PM NON DESTRUCTIVE EVALUATION SPECIALIST Gender Identity Not on file Sexual [...] Health Maintenance Due Date Last Done Comments DIABETES ANNUAL FOOT EXAM 02/10/1996 DIABETES ANNUAL RETINAL EXAM 02/10/1996 DIABETES HBA1C Q 6 MONTHS 02/10/1996 DTAP/TDAP/TD VACCINES (1 - Tdap) 1997 HEPATITIS B VACCINES (1 of 3 - 19+ 3-dose series) 1997 HPV/Cotest (21-29) 1999 CERVICAL CANCER SCREENING 02/10/2008 HPV/Cotest (30-65) 02/10/2008 PAP SMEAR 02/10/2008 BREAST CANCER SCREENING 2018 LDL CHOLESTEROL ANNUAL 04/02/2021 04/02/2020, 2017 DIABETES MICROALBUMIN ANNUAL SCREEN 08/25/2021 08/25/2020, 04/21/2020, 02/08/2019 FIT-DNA Q 3 years 2023 FIT/FOBT Q 1 year 2023 Flex Sig/CT Colonography Q 5 years 2023 COLORECTAL SCREENING 10/26/2024 10/26/2019, 10/26/19 Colorectal Cancer Screening 10/26/2024 INFLUENZA VACCINE (#1) 2025 06/04/2019 COVID-19 Vaccine ( season) 2025 Medical Devices Implanted Type Area Engine Research Engineer Device Identifier Shelf Expiration Date Model / Serial / Lot Hemostatic Surgifoam Sz12-7 1971 - [id number] Implanted:05/29 by Quinten Medeiros MD (Quantity not on file) Hemostatic N/A: Neck [employer] 03/29/20231971 [id number] Procedures Procedure Name Priority Date/Time Associated Diagnosis Comments MRI LUMBAR WO CONTRAST Routine 07/18/2025 8:05 AM NON DESTRUCTIVE EVALUATION SPECIALIST Failed back syndrome of lumbar spine Radiculopathy, lumbar region MICROALBUMIN/CREATIN INE RATIO, RANDOM UR Routine 08/25/2020 2:46 PM NON DESTRUCTIVE EVALUATION SPECIALIST LIPID PANEL Routine 04/02/2020 11:40 PM CDT COLONOSCOPY REPORT 10/26/2019 11 :43 AM NON DESTRUCTIVE EVALUATION SPECIALIST from Last 3 Months or Most Recently Relevant to Health Maintenance Results * MRI LUMBAR WO CONTRAST (07/18/2025 8:05 AM NON DESTRUCTIVE EVALUATION SPECIALIST) Anatomical Region Laterality Modality Spine Magnetic Resonan ce 07/18/2025 8:05 AM NON DESTRUCTIVE EVALUATION SPECIALIST Impressions 07/18/2025 11:50 AM NON DESTRUCTIVE EVALUATION SPECIALIST IMPRESSION: Previous right L4 hemilaminotomy. Persistent mild narrowing the lateral recesses at L4-5 as well as mild bilateral neural foraminal narrowing. Right foraminal disc protrusion at L5-S1 with moderate right L5-S1 neural foraminal narrowing. Narrative 07/18/2025 11:50 AM NON DESTRUCTIVE EVALUATION SPECIALIST Exam: MRI LUMBAR WO CONTRAST Date/Time of Exam: 07/18/2025 8:05 AM Reason For Exam: RADICUPATHY, LUMBAR REGION. Diagnosis: Failed back syndrome of lumbar spine; Radiculopathy, lumbar region. Technique: MRI of the lumbar spine was performed without the administration of intravenous contrast. Findings: There is straightening of lumbar lordosis. No acute fracture. Previous right L4 hemilaminotomy. The conus medullaris terminates at L1. The paraspinal musculature is unremarkable. The retroperitoneal structures demonstrate no acute abnormality. L1-2: Patent spinal canal and neural foramen. L2-3: Patent spinal canal and neural foramina. L3-4: Patent spinal canal and neural foramen. L4-5: Symmetric disc bulge and facet arthropathy. Persistent mild narrowing of the lateral recesses. Mild bilateral neural foraminal narrowing, right worse than left. L5-S1: Right foraminal disc protrusion and facet arthropathy. Moderate right neural foraminal narrowing. Procedure Note Nikko Jewell DO - 07/18/2025 Exam: MRI LUMBAR WO CONTRAST Date/Time of Exam: 07/18/2025 8:05 AM Reason For Exam: RADICUPATHY, LUMBAR REGION. Diagnosis: Failed back syndrome of lumbar spine; Radiculopathy, lumbar region. Technique: MRI of the lumbar spine was performed without the administration of intravenous contrast. Findings: There is straightening of lumbar lordosis. No acute fracture. Previous right L4 hemilaminotomy. The conus medullaris terminates at L1. The paraspinal musculature is unremarkable. The retroperitoneal structures demonstrate no acute abnormality. L1-2: Patent spinal canal and neural foramen. L2-3: Patent spinal canal and neural foramina. L3-4: Patent spinal canal and neural foramen. L4-5: Symmetric disc bulge and facet arthropathy. Persistent mild narrowing of the lateral recesses. Mild bilateral neural foraminal narrowing, right worse than left. L5-S1: Right foraminal disc protrusion and facet arthropathy. Moderate right neural foraminal narrowing. IMPRESSION: Previous right L4 hemilaminotomy. Persistent mild narrowing the lateral recesses at L4-5 as well as mild bilateral neural foraminal narrowing. Right foraminal disc protrusion at L5-S1 with moderate right L5-S1 neural foraminal narrowing. us Qasim Donis DO MR ORDERABLES Final Resu lt * MICROALBUMIN/CREATININE RATIO, RANDOM UR (08/25/2020 2:46 PM NON DESTRUCTIVE EVALUATION SPECIALIST) MICROALBUMIN, URINE <1.2 No Reference Range mg/dL 08/25/2020 3:28 PM [facility] CREATININE, URINE 42.3 29.0 - 226.0 mg/dL 08/25/2020 3:28 PM [facility] Comment:Reference Range vari es with fluid intake and diet. Urine URINE SPECIMEN / Unknown Collection / Unknown 08/25/2020 2:46 PM NON DESTRUCTIVE EVALUATION SPECIALIST 08/25/2020 2:46 PM [facility] - 08/25/2020 3:28 PM [facility] ATLAS#[id number] Specimen Source: Urine, unspecified source Condition Microalbumin/Creat ratio Normal Males <17 Normal Females <25 Microalbuminuria Males 17-299 Microalbuminuria Females 25-299 Overt proteinuria >=300 Unable to calculate urine microalbumin/creatinine ratio because urine microalbumin result is outside of reportable range. us Josseline Wong NP URINE ORDERABLES Fin al Result [facility] CLIA # [id number] [address] [address] [facility] CLIA # [id number] [address] [address] * LIPID PANEL (04/02/2020 11:40 PM CDT) [facility] Signature CHOLESTEROL 62 <200 mg/dL 04/03/2020 12:13 AM CDT [facility] TRIGLYCERIDE 32 <150 mg/dL 04/03/2020 12:13 AM CDT [facility] HDL 43 40 - 59 mg/dL 04/03/2020 12:13 AM CDT [facility] LDL CALCULATED 13 <100 mg/dL 04/03/2020 12:13 AM T [facility] NON-HDL CHOLESTEROL 19 <130 mg/dL 04/03/2020 12:13 AM T [facility] Blood Venipuncture / Unknown 04/02/2020 11:40 PM CDT 04/02/2020 11:46 PM CDT Narrative [facility] - 04/03/2020 12:13 AM CDT TOTAL CHOLESTEROL mg/dL Desirable <200 Borderline high 200-239 High >=240 TRIGLYCERIDES mg/dL Normal <150 Borderline high 150-199 High 200-499 Very high >=500 HDL CHOLESTEROL mg/dL Low <40 Normal 40-59 Desirable >=60 NON HDL CHOLESTEROL mg/dL Optimal <130 Near Optimal 130-159 Borderline High 160-189 Very High >=190 CALCULATED LDL mg/dL LDL <70, OPTIMAL if have Atherosclerotic cardiovascular disease (ASCVD) or intermediate or higher (>7.5%) 10 year risk of ASCVD including most adults with diabetes. LDL <100, Optimal in adult patients with low (<7.5%) 10 year ASCVD risk LDL 100-160, Suboptimal LDL >160, High LDL >190, Very high ATPIII Guidelines Reference Ranges for Lipid Panels (NCEP/AMA) . Jean Claude Argueta Mai, DO CHEMISTRY ORDERABLES Final Resu lt [facility] [employer] [facility] [address] [place] [address] [facility] CLIA# [id number] [address] [place] [address] * COLONOSCOPY REPORT (10/26/2019 11:43 AM NON DESTRUCTIVE EVALUATION SPECIALIST) Narrative Procedure Note Kurt Howard DO - 10/26/2019 11:43 AM CST Procedures signed by Kutr Howard DO at 10/26/2019 11:43 AM Author: Kurt Howard DO Service: -- Author Type: Physician Filed: 10/26/2019 11:43 AM Date of Service: 10/26/2019 11:43 AM Status:Signed Cancer Registry Manager: Kurt Howard DO (Physician) Procedure Orders 1. COLONOSCOPY REPORT [[id number]] ordered by Kurt Howard DOat 10/26/19 114[address] [facility] GI Patient Name: Nina Garcia Procedure Date: [...] Scope Out: 11:40:06 AM [address] [place], [place] Kurt Howard DO GI PROCEDURE ORDERABLES Edited Result - Final from Last 3 Months or Most Recently Relevant to Health Maintenance Insurance [address] [place] [address] [employer] [facility] [id number] Care Teams Steam Tunnel Feeder Relationship Specialty Start Date End Date Non-Staff, Physician NO ADDRESS ON FILE PCP - General 04/02/20
--- OUTSIDE RECORDS SUMMARY | 2025-08-16 09:36 | XMS_ITS | Encounter Summary ---
Author Organization [facility] Address [address] [place] [address] Phone Care Team Providers Care Inspector Materials And Processes Name Role Phone Michelle Rico Primary Care Provider [phone] Reason for Visit * Reason Comments Med Refill Encounter Details Date Type Department Care Team (Late st Contact Info) Description 01/21/2022 Refill [facility] [address] [place] [address] Dangelo Monreal MD Social History Tobacco Use Types Packs/Day Years [...] on filedocumented in this encounter Care Teams Inspector Materials And Processes Relationship Specialty Start Date End Date Michelle Rico FNP [address] [place] PCP - General 09/26/19 documented as of this encounter
--- OUTSIDE RECORDS SUMMARY | 2025-08-16 09:36 | XMS_ITS | Encounter Summary ---
Author Organization [facility] Address [address] [place] [address] Phone Care Team Providers Care Out Patient Therapist Name Role Phone Michelle Rico Primary Care Provider [phone] Reason for Visit * Reason Comments Med Refill Encounter Details Date Type Department Care Team (Late st Contact Info) Description 09/10/2021 Refill [facility] [address] [place] [address] Josseline Wong NP [address] [place] [address] Social History Tobacco Use Types [...] on filedocumented in this encounter Care Teams Out Patient Therapist Relationship Specialty Start Date End Date Michelle Rico FNP [address] [place] PCP - General 09/26/19 documented as of this encounter
--- OUTSIDE RECORDS SUMMARY | 2025-08-16 09:36 | XMS_ITS | Clinical Summary ---
Author Organization [facility] Address [address] [facility] [place] [address] Care Team Providers Care Data Processing Systems Project Planner Name Role Phone Non-Staff, Physician Primary Care Provider Unava ilable Allergies Active Allergy Reactions Criticality Noted Date Comments Aspirin Other (See Comments) 04/05/2019 Was instructed not to take medication Ketorolac Unknown 04/28/2011 Meloxicam Unknown 04/28/2011 Nsaids (Non-Steroidal Anti-Inflammatory Drug) Other (See Comments) 04/05/2019 Cant take because of [facility] Medications HYDROcodone-fran taminophen (NORCO) 10-325 mg Oral [...] tablet Take 30 mg by mouth daily quill collector. Active levothyroxine 175 mcg tablet Take 1 [...] on file Legal Sex Female 3:18 AM ADVERTISING ACCOUNT EXECUTIVE Gender Identity Not on file Sexual Orientation Not on file Last Filed Vital Signs Vital Sign Reading Time Taken Comments Blood Pressure 122/70 09/19/2020 1:09 PM ADVERTISING ACCOUNT EXECUTIVE Pulse 112 09/19/2020 1:09 PM ADVERTISING ACCOUNT EXECUTIVE Temperature 35.8 C (96.4 F) 04/03/2020 12:41 PM CDT Respiratory Rate 20 04/03/2020 12:41 PM CDT Oxygen Saturation 99% 04/03/2020 12:41 PM CDT Inhaled Oxygen Concentration - - Weight 100.2 kg (221 lb) 09/19/2020 1:09 PM ADVERTISING ACCOUNT EXECUTIVE Height 165.1 cm (5' 5 ) 09/19/2020 1:09 PM ADVERTISING ACCOUNT EXECUTIVE Body Mass Index 36.78 09/19/2020 1:09 PM ADVERTISING ACCOUNT EXECUTIVE Plan of Treatment Health Maintenance Due Date [...] 2025 06/04/2019 Medical Devices Implanted Type Area Email Marketing Manager Device Identifier Shelf Expiration Date Model / Serial / Lot Hemostatic Surgifoam Sz12-7 1971 - [id number] Implanted:06/12 by Quinten Medeiros MD at [facility] (Quantity not on file) Hemostatic N/A: Neck [employer] 03/29/20231971 [id number] Procedures Procedure Name Priority Date/Time Associated Diagnosis Comments COLONOSCOPY REPORT 10/26/2019 11 :43 AM ADVERTISING ACCOUNT EXECUTIVE from Last 3 Months or Most Recently Relevant to Health Maintenance Results * COLONOSCOPY REPORT (10/26/2019 11:43 AM ADVERTISING ACCOUNT EXECUTIVE) Narrative Procedure Note Kurt Howard DO - 10/26/2019 11:43 AM CST [facility] GI Patient Name: Nina Garcia [...] Scope Out: 11:40:06 AM [address] [place], [place] Kurt Howard DO GI PROCEDURE ORDERABLES Final Result from Last 3 Months or Most Recently Relevant to Health Maintenance Insurance [facility] Advance Directives For more information, please contact: [phone] * Full Code (Latest Code Status on File) Date Activated Date Inactivated Comments 04/02/2020 8:57 PM 04/03/2020 5:02 PM * Full Code Date Activated Date Inactivated Comments 10/26/2019 10:01 AM 10/26/2019 2:26 PM * Full Code Date Activated Date Inactivated Comments 06/12/2019 11:39 AM 06/13/2019 5:40 PM * Full Code Date Activated Date Inactivated Comments 04/05/2019 9:15 PM 04/07/2019 5:09 PM Care Teams Data Processing Systems Project Planner Relationship Specialty Start Date End Date Non-Staff, Physician NO ADDRESS ON FILE PCP - General 04/02/20
--- OUTSIDE RECORDS SUMMARY | 2025-08-16 09:36 | XMS_ITS | Encounter Summary ---
Author Organization [facility] Address [address] [place] [address] Care Team Providers Care Saddle Lining Stitcher Name Role Phone Non-Staff, Physician Primary Care Provider Unava ilable Encounter Details Date Type Department Care Team (Latest Contact Info) Description 05/25/2000 Outpatient Historical HIS [facility] Shaheen Bey MD [address] [facility] [address] [place] [address] Follow-up examination following surgery (Primary Dx) Social History Tobacco Use Types Packs/Day Years Used Date Smoking Tobacco: Never Assessed Comments Unknown Sex and Gender Information Value Date Recorded Sex Assigned at Not on file 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
--- OUTSIDE RECORDS SUMMARY | 2025-08-16 09:36 | XMS_ITS | Encounter Summary ---
Author Organization [facility] Address [address] [place] [address] Phone Care Team Providers Care Office Services Assistant Name Role Phone Michelle Rico Primary Care Provider Encounter Details Date Type Department Care Team (Late st Contact Info) Description 03/16/2021 Orders Only [facility] [address] [place] [address] Dangelo Monreal MD Stage 3b chronic kidney disease (HCC) Social [...] (HCC) documented in this encounter Care Teams Office Services Assistant Relationship Specialty Start Date End Date Michelle Rico FNP [address] PCP - General 09/26/19 documented as of this encounter
--- OUTSIDE RECORDS SUMMARY | 2025-08-16 09:36 | XMS_ITS | Encounter Summary ---
Author Organization [facility], [facility] Address [address] [place] [address] Phone Care Team Providers Care Supervisor Propellant Charge Loading Name Role Phone Trisha Michelle TOSRTEN Primary Care Provider [phone]- [phone] Encounter Details Date Type Department Care Team (Late st Contact Info) Description 03/06/2021 Orders Only [facility] [address] [place] [address] Janeth Fong MA Stage 3b [...] Renal function panel (03/19/2021 10:30 AM CDT) Pathologist [facility] Glucose 74 mg/dL [facility] BUN 8 mg/dL [facility] Creatinine 1.28 mg/dL [facility] BUN/Creatinine Ratio 6 [facility] Sodium 140 mEq/L [facility] Potassium 3.9 mEq/L [facility] Chloride 105 [facility] Carbon Dioxide 23 mmol/L [facility] Calcium 9.2 mg/dL [facility] Phosphorus, Serum 3.7 mg/dL [facility] Albumin (Blood) 4.1 g/dL [facility] eGFR Non-Afr [place] Island[place] 51 [facility] eGFR 59 [facility] Blood specimen (specimen) Venous blood / Unknown 03/19/2021 10:30 AM CDT Narrative [facility] - 03/24/2021 9:21 AM CDT [facility] [place] [address] [facility] [address] Vacation Guide: Poncho Cordova DO MPH CLIA: [id number] [facility] [place] [address] [address] [facility] [place] [address] Vacation Guide: Poncho Cordova DO MPH CLIA: [id number] Dangelo Monreal MD LAB BLOOD ORDERABLES Fi nal Result [facility] * CBC and differential (03/19/2021 10:30 AM CDT) [facility] WBC 9.7 K/uL [facility] Red Blood [...] [facility] - 03/24/2021 9:24 AM CDT [facility] [place] [address] [employer] [phone] Vacation Guide: Poncho Cordova DO MPH CLIA: [id number] [facility] [place] [address] [address] [employer] [address] Vacation Guide: Poncho Cordova DO MPH CLIA: [id number] Dangelo Monreal MD LAB BLOOD ORDERABLES Fi nal Result Performing Organization Address City[facility] Co de Phone Number [facility] * Albumin / Creatinine Urine Ratio (03/19/2021 10:30 AM CDT) Protein Urine Random 18 mg/dL [facility] Creatinine, Urine Random 156 mg/dL [facility] Urine Protein/Creati nine Ratio 115.000 mg/g Creat [facility] Urine specimen (specimen) Urine specimen obtained by clean catch procedure / Unknown 03/19/2021 10:30 AM CDT Narrative [facility] - 03/24/2021 9:22 AM CDT [facility] [place] [address] [employer] [phone] Vacation Guide: Poncho Cordova DO MPH CLIA: [id number] [facility] [place] [address] [address] [employer] [address] Vacation Guide: Poncho Cordova DO MPH CLIA: [id number] Dangelo Monreal MD LAB URINE ORDERABLES Fi nal Result Performing Organization Address City/[facility]/ZIP Co de Phone Number [facility] documented in this encounter Visit Diagnoses Diagnosis Stage 3b chronic kidney disease (HCC) documented in this encounter Care Teams Supervisor Propellant Charge Loading Relationship Specialty Start Date End Date Michelle Rico FNP [address] PCP - General 09/26/19 documented as of this encounter
--- OUTSIDE RECORDS SUMMARY | 2025-08-16 09:36 | XMS_ITS | Encounter Summary ---
Author Organization [facility] Address [address] [place] [address] Care Team Providers Care Small Engine Mechanic Name Role Phone Non-Staff, Physician Primary Care Provider Unava ilable Encounter Details Date Type Department Care Team (Latest Contact Info) Description 05/10/2000 Outpatient Historical HIS [facility] Oseas Guidry MD [address] [place] [address] Anal or rectal pain (Primary Dx); Blood in stool Social History Tobacco Use Types Packs/Day Years Used Date Smoking Tobacco: Never Assessed Comments Unknown Sex and Gender Information Value Date Recorded Sex Assigned at Not on file Legal 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
--- OUTSIDE RECORDS SUMMARY | 2025-08-16 09:36 | XMS_ITS | Encounter Summary ---
Author Organization [facility] Address [address] [place] [address] Care Team Providers Care Power Plant Supervisor Name Role Phone Non-Staff, Physician Primary Care Provider Unava ilable Encounter Details Date Type Department Care Team (Latest Contact Info) Description 04/21/2000 Outpatient Historical [facility] Oseas Guidry MD [address] [place] [address] Blood in stool (Primary Dx); Other malaise and fatigue Social History Tobacco Use Types Packs/Day Years Used Date Smoking Tobacco: Never Assessed Comments Unknown Sex and Gender Information Value Date Recorded Sex Assigned at Not on file Legal Sex Female 3:18 AM DISPLAYER MERCHANDISE Gender Identity Not on file Sexual Orientation Not on file documented as of this encounter Plan of Treatment Not on file documented as of this encounter Visit Diagnoses Diagnosis Blood in stool- Primary Other malaise and fatigue documented in this encounter Care Teams Power Plant Supervisor Relationship Specialty Start Date End Date Non-Staff, Physician NO ADDRESS ON FILE PCP - General 04/02/20 documented as of this encounter
--- OUTSIDE RECORDS SUMMARY | 2025-08-16 09:36 | XMS_ITS | Encounter Summary ---
Author Organization [facility] Address [address] [place] [address] Phone Care Team Providers Care Head Of Digital Name Role Phone Trisha Michelle TORSTEN Primary Care Provider Encounter Details Date Type Department Care Team (Late st Contact Info) Description 11/12/2020 Orders Only [facility] [address] [place] [address] Josseline Wong NP [address] [place] [address] Stage 3 chronic kidney disease [...] ratio, urine (12/09/2020 3:16 PM CDT) Pathologist [facility] Protein, Ur 51(H) 0 - 20 mg/dL [facility] Creatinine, Urine 347.9(H) 29.0 - 226.0 mg/dL [facility] Comment:Reference Range vari es with fluid intake and diet. Protein/Creatin ine Ratio, Urine 0.15 0.00 - 0.19 mg/mg Creatinine [facility] Comment: Specimen Source: Urine, unspecified source Performed at[facility] [place] [address] [employer] Supervisor: German Casey MD CLIA # [id number] Urine Urine specimen / Unknown 12/09/2020 3:16 PM CDT 12/09/2020 5:07 PM CDT Josseline Wong NIGHT MANAGER LAB URINE ORDERABLES Mill[facility]ent l Result [facility] * (ABNORMAL) Vit D 25 hydroxy (12/09/2020 3:16 PM CDT) [facility] Vitamin D, 25-Hydroxy 22(L) 30 - 100 ng/mL [facility] Comment: Interpretive Data Chart: Deficient: 0 - 20 ng/mL Insufficient: 21 - 29 ng/mL Sufficient: 30 - 100 ng/mL Increased Risk of Hypercalciuria: >100 ng/ml Toxic: >150 ng/ml Performed at: [facility] [address] [place] [address] [employer] Supervisor: German Casey MD CLIA # [id number] Blood 12/09/2020 3:16 PM CDT 12/09/2020 5:07 PM CDT Josseline Wong NIGHT MANAGER LAB BLOOD ORDERABLES Millicent l Result Performing Organization Address [facility] Co de Phone Number [facility] * PTH, intact (12/09/2020 3:16 PM CDT) PTH 34.9 15.0 - 65.0 pg/mL [facility] Comment: Performed at: [place] [id number] [place] [address] [employer] Supervisor: German Casey MD CLIA # [id number] Blood 12/09/2020 3:16 PM CDT 12/09/2020 5:07 PM CDT Josseline Wong NIGHT MANAGER LAB BLOOD ORDERABLES [facility] l Result Performing Organization Address [facility] de Phone Number [facility] * (ABNORMAL) CBC (12/09/2020 3:16 PM CDT) WBC 8.3 4.5 - 11.0 K/uL [facility] Red Blood Cells 5.09 4.20 - 5.40 M/uL [facility] Hgb 14.3 12.0 - 16.0 g/dL [facility] Hematocrit 45.1 36.0 - 46.0 % [facility] MCV 88.6 84.0 - 103.0 fL [facility] MCH 28.1 27.0 - 34.0 pg [facility] MCHC 31.7 30.0 - 35.0 g/dL [facility] S[facility] Platelets 246 140 - 440 K/uL [facility] SNA MPV 12.2 8.9 - 12.8 fL [facility] S[facility] RDW 15.8(H) 11.0 - 14.5 % [facility] RDW-SD 51.7 37.0 - 54.0 fL [facility] Comment: Performed at: [facility] [place] [address] [employer] Supervisor: MD GIRISH Castillo # [id number] Blood 12/09/2020 3:16 PM CDT 12/09/2020 5:07 PM CDT Josseline Wong NIGHT MANAGER LAB BLOOD ORDERABLES Millicent benz Result [facility] * (ABNORMAL) Renal [...] Gap 10 9 - 20 mmol/L [facility] Comment: TEST COMMENT: Fasting?->No Performed at: [facility] [place] [address] [employer] Supervisor: German Casey MD CLIA # [id number] Blood 12/09/2020 3:16 PM CDT 12/09/2020 5:07 PM CDT Josseline Wong NIGHT MANAGER LAB BLOOD ORDERABLES Millicent l Result [facility] documented in this encounter Visit Diagnoses Diagnosis Stage 3 chronic kidney disease (HCC) documented in this encounter Care Teams Head Of Digital Relationship Specialty Start Date End Date Michelle Rico FNP [address] [place] PCP - General 09/26/19 documented as of this encounter
--- OUTSIDE RECORDS SUMMARY | 2025-08-16 09:37 | XMS_ITS | Encounter Summary ---
Author Organization [facility] Address [address] [place] [address] Care Team Providers Care Real Estate Asset Manager Name Role Phone Non-Staff, Physician Primary Care Provider Unava ilable Encounter Details Date Type Department Care Team (Late st Contact Info) Description 10/10/2002 Outpatient Historical [facility] [place] Vidhi [address] [place] [address] Sekou Ma MD [address] [facility] [address] [place] [address] ADMINISTRTVE ENCOUNT NOS (Primary Dx) Social History Tobacco Use Types Packs/Day Years Used Date Smoking Tobacco: Never Assessed Comments Unknown Sex and Gender Information Value Date Recorded Sex Assigned at Not on file Legal Sex Female 3:18 AM LAWN MOWER Gender Identity Not on file Sexual Orientation Not on file documented as of this encounter Plan of Treatment Not on file documented as of this encounter Visit Diagnoses Diagnosis Encounters for unspecified administrative purpose- Primary documented in this encounter Care Teams Real Estate Asset Manager Relationship Specialty Start Date End Date Non-Staff, Physician NO ADDRESS ON FILE PCP - General 04/02/20 documented as of this encounter
--- OUTSIDE RECORDS SUMMARY | 2025-08-16 09:37 | XMS_ITS | Encounter Summary ---
Author Organization [facility] Address [address] [place] [address] Care Team Providers Care Corporate Services Manager Name Role Phone Non-Staff, Physician Primary Care Provider Unava ilable Encounter Details Date Type Department Care Team (Late st Contact Info) Description 04/17/2001 Outpatient Historical [facility] OBGYNAjit Baptistenn [place] [address] [place] [address] Sekou Ma MD [address] [facility] [address] [place] [address] Other specified pre-operative examination (Primary Dx); Unspecified symptom associated with female genital organs Social History Tobacco Use Types Packs/Day Years Used Date Smoking Tobacco: Never Assessed Comments Unknown Sex and Gender Information Value Date Recorded Sex Assigned at Not on file Legal Sex Female 3:18 AM SUPERVISOR PRECISION OPTICAL ELEMENTS Gender Identity Not on file Sexual Orientation Not on file documented as of this encounter Plan of Treatment Not on file documented as of this encounter Visit Diagnoses Diagnosis Other specified pre-operative examination- Primary Unspecified symptom associated with female genital organs documented in this encounter Care Teams Corporate Services Manager Relationship Specialty Start Date End Date Non-Staff, Physician NO ADDRESS ON FILE PCP - General 04/02/20 documented as of this encounter
--- OUTSIDE RECORDS SUMMARY | 2025-08-16 09:37 | XMS_ITS | Encounter Summary ---
Author Organization [facility] Address [address] [place] [address] Care Team Providers Care Internet Architect Name Role Phone Non-Staff, Physician Primary Care Provider Unava ilable Encounter Details Date Type Department Care Team (Latest Contact Info) Description 01/19/2006 Outpatient Historical [facility] [address] [facility] [address] [place] [address] Quinten Aviles MD [facility] [address] [place] [id number] Anal Fissure (Primary Dx); Irritable Bowel Syndrome Social History Tobacco Use Types Packs/Day Years Used Date Smoking Tobacco: Never Assessed Comments Unknown Sex and Gender Information Value Date Recorded Sex Assigned at Not on file Legal Sex Female 3:18 AM FISHERIES OFFICER Gender Identity Not on file Sexual Orientation Not on file documented as of this encounter Plan of Treatment Not on file documented as of this encounter Visit Diagnoses Diagnosis Anal fissure- Primary Irritable bowel syndrome documented in this encounter Care Teams Internet Architect Relationship Specialty Start Date End Date Non-Staff, Physician NO ADDRESS ON FILE PCP - General 04/02/20 documented as of this encounter
--- OUTSIDE RECORDS SUMMARY | 2025-08-16 09:37 | XMS_ITS | Encounter Summary ---
Author Organization [facility] Address [address] [place] [address] Care Team Providers Care Senior Technical Editor Name Role Phone Non-Staff, Physician Primary Care Provider Unava ilable Encounter Details Date Type Department Care Team (Late st Contact Info) Description 02/21/2006 Outpatient Historical [facility] Social History Tobacco Use Types Packs/Day Years Used Date Smoking Tobacco: Never Assessed Comments Unknown Sex and Gender Information Value Date Recorded Sex Assigned at Not on file Legal Sex Female 3:18 AM ENERGY CONTROL OFFICER Gender Identity Not on file Sexual Orientation Not on file documented as of this encounter Plan of Treatment Not on file documented as of this encounter Visit Diagnoses Not on filedocumented in this encounter Care Teams Senior Technical Editor Relationship Specialty Start Date End Date Non-Staff, Physician NO ADDRESS ON FILE PCP - General 04/02/20 documented as of this encounter
--- OUTSIDE RECORDS SUMMARY | 2025-08-16 09:37 | XMS_ITS | Encounter Summary ---
Author Organization [facility] Address [address] [place] [address] Care Team Providers Care Manager Administrative Name Role Phone Non-Staff, Physician Primary Care Provider Unava ilable Encounter Details Date Type Department Care Team (Latest Contact Info) Description 01/22/2000 Outpatient Historical [facility] Oseas Guidry MD [address] [place] [address] Chest pain, unspecified (Primary Dx); Headache(784.0); Dyspepsia and other specified disorders of function of stomach Social History Tobacco Use Types Packs/Day Years Used Date Smoking Tobacco: Never Assessed Comments Unknown Sex and Gender Information Value Date Recorded Sex Assigned at Not on file Legal Sex Female 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
--- OUTSIDE RECORDS SUMMARY | 2025-08-16 09:37 | XMS_ITS | Encounter Summary ---
Author Organization [facility] Address [address] [place] [address] Care Team Providers Care Reel Slitter Name Role Phone Non-Staff, Physician Primary Care Provider Unava ilable Encounter Details Date Type Department Care Team (Late st Contact Info) Description 04/17/2001 Outpatient Historical [facility] Sekou Ma MD [address] [id number] Other specified pre-operative examination (Primary Dx); Abdominal pain, generalized; Dysmenorrhea Social History Tobacco Use Types Packs/Day Years Used Date Smoking Tobacco: Never Assessed Comments Unknown Sex and Gender Information Value Date Recorded Sex Assigned at Not on file Legal Sex Female 3:18 AM MANAGER LONG TERM CARE Gender Identity Not on file Sexual Orientation Not on file documented as of this encounter Plan of Treatment Not on file documented as of this encounter Visit Diagnoses Diagnosis Other specified pre-operative examination- Primary Abdominal pain, generalized Dysmenorrhea documented in this encounter Care Teams Reel Slitter Relationship Specialty Start Date End Date Non-Staff, Physician NO ADDRESS ON FILE PCP - General 04/02/20 documented as of this encounter
--- OUTSIDE RECORDS SUMMARY | 2025-08-16 09:37 | XMS_ITS | Encounter Summary ---
Author Organization [facility] Address [address] [facility] [place] [address] Care Team Providers Care Veneer Clipper Helper Name Role Phone Non-Staff, Physician Primary Care Provider Unava ilable Encounter Details Date Type Department Care Team (Latest Contact Info) Description 02/21/2006 Outpatient Historical [facility] 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
--- OUTSIDE RECORDS SUMMARY | 2025-08-16 09:37 | XMS_ITS | Clinical Summary ---
Author Organization [facility] Address [address] [place] [address] Care Team Providers Care Assistant Activities Director Name Role Phone Michelle Rico TORSTEN Primary Care Provider [phone] Allergies Active Allergy Reactions Criticality Noted Date Comments Aspirin 04/05/2019 Other reaction(s): Other (See Comments) Was instructed not to take medication Ketorolac 04/28/2011 Other reaction(s): Unknown Meloxicam 04/28/2011 Other reaction(s): Unknown Nsaids 04/05/2019 Other reaction(s): Other (See Comments) Cant take because of [facility] Medications * This document contains information received [...] Comments Blood Pressure 100/60 10/06/2021 10:44 AM DISH UP PERSON Pulse 66 10/06/2021 10:44 AM DISH UP PERSON Temperature 36.8 C (98.3 F) 12/15/2020 3:15 PM CDT Respiratory Rate - - Oxygen Saturation - - Inhaled Oxygen Concentration - - Weight 104 kg (229 lb 12.8 oz) 10/06/2021 10:44 AM DISH UP PERSON Height 165.1 cm (5' 5 ) 10/06/2021 10:44 AM DISH UP PERSON Body Mass Index 38.24 10/06/2021 10:44 AM DISH UP PERSON Plan of Treatment Health Maintenance Due Date Last Done Comments Hepatitis B Vaccine (1 of 3 - 19+ 3-dose series) 02/09 Pneumococcal Vaccine: Peds ( 0 to 5 Years) and At-Risk Patients (6 to 49 Years) (1 of 2 - PCV) 1997 Influenza Vaccine (#1) 2025 06/04/2019 Insurance [facility] Care Teams Assistant Activities Director Relationship Specialty Start Date End Date Michelle Rico FNP [address] [place], [place] PCP - General 09/26/19
--- OUTSIDE RECORDS SUMMARY | 2025-08-16 09:37 | XMS_ITS | Encounter Summary ---
Author Organization [facility] Address [address] [place] [address] Care Team Providers Care Road Advisor Name Role Phone Non-Staff, Physician Primary Care Provider Unava ilable Encounter Details Date Type Department Care Team (Latest Contact Info) Description 02/12/2000 Outpatient Historical 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
--- OUTSIDE RECORDS SUMMARY | 2025-08-16 09:37 | XMS_ITS | Encounter Summary ---
Author Organization [facility] Address [address] [place] [address] Care Team Providers Care Emt Paramedic Name Role Phone Non-Staff, Physician Primary Care Provider Unava ilable Encounter Details Date Type Department Care Team (Late st Contact Info) Description 02/21/2006 Outpatient Historical [facility] Imaging [place] [address] [place] [address] Social History Tobacco Use Types Packs/Day Years Used Date Smoking Tobacco: Never Assessed Comments Unknown Sex and Gender Information Value Date Recorded Sex Assigned at Not on file Legal Sex Female 3:18 AM FOREIGN BROADCAST SPECIALIST Gender Identity Not on file Sexual Orientation Not on file documented as of this encounter Plan of Treatment Not on file documented as of this encounter Visit Diagnoses Not on filedocumented in this encounter Care Teams Emt Paramedic Relationship Specialty Start Date End Date Non-Staff, Physician NO ADDRESS ON FILE PCP - General 04/02/20 documented as of this encounter
--- OUTSIDE RECORDS SUMMARY | 2025-08-16 09:37 | XMS_ITS | Encounter Summary ---
Author Organization [facility] Address [address] [place] [address] Care Team Providers Care Mobile Solutions Architect Name Role Phone Non-Staff, Physician Primary Care Provider Unava ilable Encounter Details Date Type Department Care Team (Latest Contact Info) Description 01/26/2000 Outpatient Historical [facility] Oseas Guidry MD [address] [place] [address] Chest pain, unspecified (Primary Dx); Nonallopathic lesion of thoracic region, not elsewhere classified; Personal history of endocrine, metabolic, and immunity disorders Social History Tobacco Use Types Packs/Day Years Used Date Smoking Tobacco: Never Assessed Comments Unknown Sex and Gender Information Value Date Recorded Sex Assigned at Not on file Legal Sex Female 3:18 AM SUEDING 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
--- OUTSIDE RECORDS SUMMARY | 2025-08-16 09:37 | XMS_ITS | Encounter Summary ---
Author Organization [facility] Address [address] [place] [address] Care Team Providers Care Bus Monitor Name Role Phone Non-Staff, Physician Primary Care Provider Unava ilable Encounter Details Date Type Department Care Team (Late st Contact Info) Description 03/20/2001 Outpatient Historical [facility] OBKENNYNAjit Baptistenn [place] [address] [place] [address] Sekou Ma MD [address] [facility] [address] [place] [address] Irregular menstruation (Primary Dx); Dyspareunia; Unspecified symptom associated with female genital organs Social History Tobacco Use Types Packs/Day Years Used Date Smoking Tobacco: Never Assessed Comments Unknown Sex and Gender Information Value Date Recorded Sex Assigned at Not on file Legal Sex Female 3:18 AM YIELD IMPROVEMENT 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
--- OUTSIDE RECORDS SUMMARY | 2025-08-16 09:37 | XMS_ITS | Encounter Summary ---
Author Organization [facility] Address [address] [facility] Attn: Epic Prelude ADT KERI STEINER [address] Care Team Providers Care Machine Plug Shaper Name Role Phone Non-Staff, Physician Primary Care Provider Unava ilable Encounter Details Date Type Department Care Team ([facility] Contact Info) Description 04/25/2001 Inpatient Historical Sekou Ma MD [address] [address] Social History Tobacco Use Types Packs/Day Years Used Date Smoking Tobacco: Never Assessed Comments Unknown Sex and Gender Information Value Date Recorded Sex Assigned at Not on file Legal Sex Female 3:18 AM AVIONICS MECHANIC Gender Identity Not on file Sexual Orientation Not on file documented as of this encounter Plan of Treatment Not on file documented as of this encounter Visit Diagnoses Not on filedocumented in this encounter Care Teams Machine Plug Shaper Relationship Specialty Start Date End Date Non-Staff, Physician NO ADDRESS ON FILE PCP - General 04/02/20 documented as of this encounter
--- OUTSIDE RECORDS SUMMARY | 2025-08-16 09:37 | XMS_ITS | Encounter Summary ---
Author Organization [facility] Address [address] [place] [address] Care Team Providers Care Railroad Construction Director Name Role Phone Non-Staff, Physician Primary Care Provider Unava ilable Encounter Details Date Type Department Care Team (Late st Contact Info) Description 04/25/2001 Outpatient Historical [facility] OBKENNYNAjit Baptistenn Gilpin [address] [place] [id number] Skeou Ma MD [address] [facility] [address] [place] [address] Metrorrhagia (Primary Dx); Dysmenorrhea; Unspecified symptom associated with female genital organs Social History Tobacco Use Types Packs/Day Years Used Date Smoking Tobacco: Never Assessed Comments Unknown Sex and Gender Information Value Date Recorded Sex Assigned at Not on file Legal Sex Female 3:18 AM PROGRAM ADVOCATE Gender Identity Not on file Sexual Orientation Not on file documented as of this encounter Plan of Treatment Not on file documented as of this encounter Visit Diagnoses Diagnosis Metrorrhagia- Primary Dysmenorrhea Unspecified symptom associated with female genital organs documented in this encounter Care Teams Railroad Construction Director Relationship Specialty Start Date End Date Non-Staff, Physician NO ADDRESS ON FILE PCP - General 04/02/20 documented as of this encounter
--- OUTSIDE RECORDS SUMMARY | 2025-08-16 09:37 | XMS_ITS | Encounter Summary ---
Author Organization [facility] Address [address] [place] [address] Care Team Providers Care Hall Tender Name Role Phone Non-Staff, Physician Primary Care Provider Unava ilable Encounter Details Date Type Department Care Team (Latest Contact Info) Description 05/27/2003 Outpatient Historical [facility] SoteroShaheen MD [address] [facility] [address] [place] [address] SURGERY FOLLOWUP, UNSPEC (Primary Dx) Social History Tobacco Use Types Packs/Day Years Used Date Smoking Tobacco: Never Assessed Comments Unknown Sex and Gender Information Value Date Recorded Sex Assigned at Not on file Legal Sex Female 3:18 AM THIRD GRADE TEACHER Gender Identity Not on file Sexual Orientation Not on file documented as of this encounter Plan of Treatment Not on file documented as of this encounter Visit Diagnoses Diagnosis Follow-up examination, following unspecified surgery- Primary documented in this encounter Care Teams Hall Tender Relationship Specialty Start Date End Date Non-Staff, Physician NO ADDRESS ON FILE PCP - General 04/02/20 documented as of this encounter
--- OUTSIDE RECORDS SUMMARY | 2025-08-16 09:37 | XMS_ITS | Encounter Summary ---
Author Organization [facility] Address [address] [place] [address] Care Team Providers Care Manager Valuation Name Role Phone Non-Staff, Physician Primary Care Provider Unava ilable Encounter Details Date Type Department Care Team (Latest Contact Info) Description 04/20/2000 Outpatient Historical HIS [facility] Trent Reed NO ADDRESS ON FILE Other and unspecified noninfectious gastroenteritis and colitis(558.9) (Primary Dx) Social History Tobacco Use Types Packs/Day Years Used Date Smoking Tobacco: Never Assessed Comments Unknown Sex and Gender Information Value Date Recorded Sex Assigned at Not on file Legal Sex Female 3:18 AM ELECTRIC LOCOMOTIVE FIRER/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
--- OUTSIDE RECORDS SUMMARY | 2025-08-16 09:37 | XMS_ITS | Encounter Summary ---
Author Organization [facility] Address [address] [place] [address] Phone Care Team Providers Care Appliance Fixer Name Role Phone Michelle Rico Primary Care Provider [phone] Reason for Visit * Reason Comments Med Refill Encounter Details Date Type Department Care Team (Late st Contact Info) Description 07/04[facility]2022 [facility] [address] [place] [address] Gaye Sheth NP [address] [place] [address] Social History Tobacco Use Types [...] on filedocumented in this encounter Care Teams Appliance Fixer Relationship Specialty Start Date End Date Michelle Rico FNP [address] [place] PCP - General 09/26/19 documented as of this encounter
--- OUTSIDE RECORDS SUMMARY | 2025-08-16 09:37 | XMS_ITS | Encounter Summary ---
Author Organization [facility] Address [address] [place] [address] Care Team Providers Care Wagon Driver Name Role Phone Non-Staff, Physician Primary Care Provider Unava ilable Encounter Details Date Type Department Care Team (Latest Contact Info) Description 02/28/2001 Outpatient Historical [facility] Oseas Guidry MD [address] [place] [address] Unspecified inflammatory disease of female pelvic organs and tissues (Primary Dx) Social History Tobacco Use Types Packs/Day Years Used Date Smoking Tobacco: Never Assessed Comments Unknown Sex and Gender Information Value Date Recorded Sex Assigned at Not on file 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
--- OUTSIDE RECORDS SUMMARY | 2025-08-16 09:37 | XMS_ITS | Encounter Summary ---
Author Organization [facility] Address [address] [place] [address] Care Team Providers Care Metal Storage Worker Name Role Phone Non-Staff, Physician Primary Care Provider Unava ilable Encounter Details Date Type Department Care Team (Latest Contact Info) Description 12/13/2000 Outpatient Historical [facility] Oseas Gudiry MD [address] [place] [address] Abdominal pain, unspecified site (Primary Dx); Constipation; Encounter for long-term (current) use of other medications Social History Tobacco Use Types Packs/Day Years Used Date Smoking Tobacco: Never Assessed Comments Unknown Sex and Gender Information Value Date Recorded Sex Assigned at Not on file Legal Sex Female 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
--- OUTSIDE RECORDS SUMMARY | 2025-08-16 09:37 | XMS_ITS | Encounter Summary ---
Author Organization [facility] Address [address] [place] [address] Care Team Providers Care Television Announcer Name Role Phone Non-Staff, Physician Primary Care Provider Unava ilable Encounter Details Date Type Department Care Team (Latest Contact Info) Description 02/21/2006 Outpatient Historical [facility] [address] [facility] [place] [address] Antoinette Bradley MD [address] [place] [address] Syncope and Collapse (Primary Dx) Social History Tobacco Use Types Packs/Day Years Used Date Smoking Tobacco: Never Assessed Comments Unknown Sex and Gender Information Value Date Recorded Sex Assigned at Not on file Legal 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
--- OUTSIDE RECORDS SUMMARY | 2025-08-16 09:37 | XMS_ITS | Encounter Summary ---
Author Organization [facility] Address [address] [place] [address] Care Team Providers Care Ostrich Farm Worker Name Role Phone Non-Staff, Physician Primary Care Provider Unava ilable Encounter Details Date Type Department Care Team (Late st Contact Info) Description 10/03/2002 Outpatient Historical [facility] [place] [address] [place] [address] Sekou Ma MD [address] [facility] [address] [place] [address] Gynecologic examination (Primary Dx); ENURESIS NOS; ABDOMINAL PAIN RLQ Social History Tobacco Use Types Packs/Day Years Used Date Smoking Tobacco: Never Assessed Comments Unknown Sex and Gender Information Value Date Recorded Sex Assigned at Not on file 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
--- OUTSIDE RECORDS SUMMARY | 2025-08-16 09:37 | XMS_ITS | Encounter Summary ---
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) (Primary Dx); Syncope and Collapse Social History Tobacco Use Types Packs/Day Years Used Date Smoking Tobacco: Never Assessed Comments Unknown Sex and Gender Information Value Date Recorded Sex Assigned at Not on file 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
--- OUTSIDE RECORDS SUMMARY | 2025-08-16 09:37 | XMS_ITS | Encounter Summary ---
Author Organization [facility] Address [address] [place] [address] Care Team Providers Care Taxicab Dispatcher Name Role Phone Non-Staff, Physician Primary Care Provider Unava ilable Encounter Details Date Type Department Care Team (Late st Contact Info) Description 10/03/2002 Outpatient Historical [facility] [place] [address] [place] [address] Sekou Ma MD [address] [facility] [address] [place] [address] Social History Tobacco Use Types Packs/Day Years Used Date Smoking Tobacco: Never Assessed Comments Unknown Sex and Gender Information Value Date Recorded Sex Assigned at Not on file Legal 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
--- OUTSIDE RECORDS SUMMARY | 2025-08-16 09:37 | XMS_ITS | Encounter Summary ---
Author Organization [facility] Address [address] [place] [address] Care Team Providers Care President [place] Name Role Phone Non-Staff, Physician Primary Care Provider Unava ilable Encounter Details Date Type Department Care Team (Latest Contact Info) Description 06/20/2000 Outpatient Historical [facility] Oseas Guidry MD [address] [place] [address] Pain in joint, site unspecified (Primary Dx); Nonallopathic lesion of abdomen and other sites, not elsewhere classified Social History Tobacco Use Types Packs/Day Years Used Date Smoking Tobacco: Never Assessed Comments Unknown Sex and Gender Information Value Date Recorded Sex Assigned at Not on file Legal 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
--- OUTSIDE RECORDS SUMMARY | 2025-08-16 09:37 | XMS_ITS | Encounter Summary ---
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
--- OUTSIDE RECORDS SUMMARY | 2025-08-16 09:37 | XMS_ITS | Encounter Summary ---
Author Organization [facility] Address [address] [place] [address] Care Team Providers Care Washer Machine Name Role Phone Non-Staff, Physician Primary Care Provider Unava ilable Encounter Details Date Type Department Care Team (Latest Contact Info) Description 01/05/2001 Outpatient Historical [facility] Oseas Guidry MD [address] [place] [address] Urinary tract infection, site not specified (Primary Dx); Other and unspecified noninfectious gastroenteritis and colitis(558.9) Social History Tobacco Use Types Packs/Day Years Used Date Smoking Tobacco: Never Assessed Comments Unknown Sex and Gender Information Value Date Recorded Sex Assigned at Not on file Legal 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
--- OUTSIDE RECORDS SUMMARY | 2025-08-16 09:37 | XMS_ITS | Encounter Summary ---
Author Organization [facility] Address [address] [place] [address] Care Team Providers Care Career Technology Teacher Name Role Phone Non-Staff, Physician Primary Care Provider Unava ilable Encounter Details Date Type Department Care Team (Late st Contact Info) Description 04/03/2001 Outpatient Historical [facility] Sekou Ma MD [address] [id number] Excessive menstruation (Primary Dx) Social History Tobacco Use Types Packs/Day Years Used Date Smoking Tobacco: Never Assessed Comments Unknown Sex and Gender Information Value Date Recorded Sex Assigned at Not on file Legal Sex Female 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
--- OUTSIDE RECORDS SUMMARY | 2025-08-16 09:37 | XMS_ITS | Encounter Summary ---
Author Organization [facility] Address [address] [place] [address] Care Team Providers Care Rehabilitation Supervisor Name Role Phone Non-Staff, Physician Primary Care Provider Unava ilable Encounter Details Date Type Department Care Team (Latest Contact Info) Description 08/31/2000 Outpatient Historical [facility] Shaheen Bey MD [address] [place] [address] Constipation (Primary Dx); Abdominal pain, right upper quadrant; Abdominal pain, left lower quadrant Social History Tobacco Use Types Packs/Day Years Used Date Smoking Tobacco: Never Assessed Comments Unknown Sex and Gender Information Value Date Recorded Sex Assigned at Not on file Legal 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
--- OUTSIDE RECORDS SUMMARY | 2025-08-16 09:37 | XMS_ITS | Encounter Summary ---
Author Organization [facility] Address [address] [place] [address] Care Team Providers Care Hot Press Operator Name Role Phone Non-Staff, Physician Primary Care Provider Unava ilable Encounter Details Date Type Department Care Team (Latest Contact Info) Description 12/22/2000 Outpatient Historical [facility] Oseas Guidry MD [address] [place] [address] Abdominal pain, unspecified site (Primary Dx); Nonallopathic lesion of abdomen and other sites, not elsewhere classified Social History Tobacco Use Types Packs/Day Years Used Date Smoking Tobacco: Never Assessed Comments Unknown Sex and Gender Information Value Date Recorded Sex Assigned at Not on file Legal Sex Female 3:18 AM DIGESTER HAND Gender Identity Not on file Sexual Orientation Not on file documented as of this encounter Plan of Treatment Not on file documented as of this encounter Visit Diagnoses Diagnosis Abdominal pain, unspecified site- Primary Nonallopathic lesion of abdomen and other sites, not elsewhere classified documented in this encounter Care Teams Hot Press Operator Relationship Specialty Start Date End Date Non-Staff, Physician NO ADDRESS ON FILE PCP - General 04/02/20 documented as of this encounter
--- OUTSIDE RECORDS SUMMARY | 2025-08-16 09:37 | XMS_ITS | Encounter Summary ---
Author Organization [facility] Address [address] [place] [address] Care Team Providers Care Athlete Marketing Agent Name Role Phone Non-Staff, Physician Primary Care Provider Unava ilable Encounter Details Date Type Department Care Team (Latest Contact Info) Description 02/08/2001 Outpatient Historical [facility] Trent Reed NO ADDRESS ON FILE Headache(784.0) (Primary Dx) Social History Tobacco Use Types Packs/Day Years Used Date Smoking Tobacco: Never Assessed Comments Unknown Sex and Gender Information Value Date Recorded Sex Assigned at Not on file Legal Sex Female 3:18 AM 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
--- OUTSIDE RECORDS SUMMARY | 2025-08-16 09:37 | XMS_ITS | Encounter Summary ---
Author Organization [facility] Address [address] [place] [address] Care Team Providers Care Career And Transition Teacher Name Role Phone Non-Staff, Physician Primary Care Provider Unava ilable Encounter Details Date Type Department Care Team (Late st Contact Info) Description 04/03/2001 Outpatient Historical [facility] OBKENNYNAjit Baptistenn [place] [address] [place] [address] Sekou Ma MD [address] [facility] [address] [place] [address] Unspecified inflammatory disease of uterus (Primary Dx); Irregular menstruation; Unspecified symptom associated with female genital organs Social History Tobacco Use Types Packs/Day Years Used Date Smoking Tobacco: Never Assessed Comments Unknown Sex and Gender Information Value Date Recorded Sex Assigned at Not on file Legal 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
--- OUTSIDE RECORDS SUMMARY | 2025-08-16 09:37 | XMS_ITS | Encounter Summary ---
Author Organization [facility] Address [address] [place] [address] Care Team Providers Care Deputy Chief Sheriff Name Role Phone Non-Staff, Physician Primary Care Provider Unava ilable Encounter Details Date Type Department Care Team (Latest Contact Info) Description 07/19/2002 Outpatient Historical [facility] Oseas Guidry MD [address] [place] [address] IRRITABLE COLON (Primary Dx) Social History Tobacco Use Types Packs/Day Years Used Date Smoking Tobacco: Never Assessed Comments Unknown Sex and Gender Information Value Date Recorded Sex Assigned at Not on file Legal 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
--- OUTSIDE RECORDS SUMMARY | 2025-08-16 09:38 | XMS_ITS | Encounter Summary ---
Author Organization [facility] Address [address] [place] [address] Care Team Providers Care Vein Access Technician Name Role Phone Non-Staff, Physician Primary Care Provider Unava ilable Encounter Details Date Type Department Care Team (Latest Contact Info) Description 03/09/2006 Outpatient Historical [facility] [address] 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
--- OUTSIDE RECORDS SUMMARY | 2025-08-16 09:38 | XMS_ITS | Encounter Summary ---
Author Organization [facility] Address [address] [place] [address] Care Team Providers Care Human Resources Compensation Analyst Name Role Phone Non-Staff, Physician Primary Care Provider Unava ilable Encounter Details Date Type Department Care Team (Latest Contact Info) Description 03/09/2006 Outpatient Historical [facility] [place] [id number] [facility] [address] [place] [address] Quinten Aviles MD [address] [place] [address] [address] [place] [phone] Anal or Rectal Pain (Primary Dx); Other Specified Disorder of Rectum and Anus Social History Tobacco Use Types Packs/Day Years Used Date Smoking Tobacco: Never Assessed Comments Unknown Sex and Gender Information Value Date Recorded Sex Assigned at Not on file Legal Sex Female 3: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
--- OUTSIDE RECORDS SUMMARY | 2025-08-16 09:38 | XMS_ITS | Encounter Summary ---
Author Organization [facility] Address [address] [place] [address] Care Team Providers Care Data Lead Name Role Phone Non-Staff, Physician Primary Care Provider Unava ilable Encounter Details Date Type Department Care Team (Latest Contact Info) Description 06/03/2003 Outpatient Historical [facility] SoteroShaheen MD [address] [facility] [address] [place] [address] SURGERY FOLLOWUP, UNSPEC (Primary Dx) Social History Tobacco Use Types Packs/Day Years Used Date Smoking Tobacco: Never Assessed Comments Unknown Sex and Gender Information Value Date Recorded Sex Assigned at Not on file Legal Sex Female 3:18 AM 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
--- OUTSIDE RECORDS SUMMARY | 2025-08-16 09:38 | XMS_ITS | Encounter Summary ---
Author Organization [facility] Address [address] [place] [address] Care Team Providers Care Housekeeper/Custodian/Laundry Worker Name Role Phone Non-Staff, Physician Primary Care Provider Unava ilable Encounter Details Date Type Department Care Team (Late st Contact Info) Description 03/28/2006 Outpatient Historical [facility] Quinten Aviles MD [address] [place] [address] [address] [place] [phone] Social History Tobacco Use Types Packs/Day Years Used Date Smoking Tobacco: Never Assessed Comments Unknown Sex and Gender Information Value Date Recorded Sex Assigned at Not on file Legal Sex Female 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
--- OUTSIDE RECORDS SUMMARY | 2025-08-16 09:38 | XMS_ITS | Clinical Summary ---
Author Organization [facility] Address [address] [place] [address] Care Team Providers Care Windlasser Name Role Phone Michelle Rico NP Primary Care Provider [phone] Allergies Active Allergy Reactions Criticality Noted Date [...] on file Legal Sex Female 8:56 PM JIGSAWYER Gender Identity Female 07/04/2018 10:38 AM JIGSAWYER Sexual Orientation Straight 10/04/2023 7: 11 PM JIGSAWYER Last Filed Vital Signs Vital Sign Reading Time Taken Comments Blood Pressure 194/105 02/24/2024 2:37 PM CDT Pulse 102 02/24/2024 2:37 PM CDT Temperature 36.6 C (97.8 F) 07/04/2018 10:50 AM JIGSAWYER Respiratory Rate - - Oxygen Saturation 97% [...] patient's age to complete this topic Insurance [facility]PPO Address: [address] [place] [id number] [facility] [facility] H[facility]/PPO Address: [address] [address] [place] [address] Care Teams Windlasser Relationship Specialty Start Date End Date Michelle Rico NP [address] [place] [address] PCP - General 02/13/19
--- OUTSIDE RECORDS SUMMARY | 2025-08-16 09:38 | XMS_ITS | Encounter Summary ---
Author Organization [facility] Address [address] [place] [address] Care Team Providers Care Operations Intelligence Name Role Phone Non-Staff, Physician Primary Care Provider Unava ilable Encounter Details Date Type Department Care Team (Latest Contact Info) Description 03/10/2006 Outpatient Historical [facility] [address] [place] [address] Jeniffer Bronson MD [address] [facility] [address] [place] [phone] Syncope and Collapse (Primary Dx) Social History Tobacco Use Types Packs/Day Years Used Date Smoking Tobacco: Never Assessed Comments Unknown Sex and Gender Information Value Date Recorded Sex Assigned at Not on file 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
--- OUTSIDE RECORDS SUMMARY | 2025-08-16 09:38 | XMS_ITS | Encounter Summary ---
Author Organization [facility] Address [address] [place] [address] Phone Care Team Providers Care Hat Blocking Machine Operator Name Role Phone Michelle Rico Primary Care Provider Encounter Details Date Type Department Care Team (Late st Contact Info) Description 05/24/2019 Orders Only [facility] [address] [place] [address] Chronic kidney disease, stage 3 [...] Hypertension documented in this encounter Care Teams Hat Blocking Machine Operator Relationship Specialty Start Date End Date Michelle Rico FNP [address] PCP - General 09/26/19 documented as of this encounter
--- OUTSIDE RECORDS SUMMARY | 2025-08-16 09:38 | XMS_ITS | Encounter Summary ---
Author Organization [facility] Address [address] [place] [address] Care Team Providers Care Rod Pointer Name Role Phone Non-Staff, Physician Primary Care Provider Unava ilable Encounter Details Date Type Department Care Team (Late st Contact Info) Description 03/22/2006 Outpatient Historical [facility] Quinten Aviles MD [address] [place] [address] [address] [place] [phone] Social History Tobacco Use Types Packs/Day Years Used Date Smoking Tobacco: Never Assessed Comments Unknown Sex and Gender Information Value Date Recorded Sex Assigned at Not on file 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
--- OUTSIDE RECORDS SUMMARY | 2025-08-16 09:38 | XMS_ITS | Encounter Summary ---
Author Organization [facility] Address [address] [place] [address] Care Team Providers Care Member Of The Legislative Assembly Name Role Phone Non-Staff, Physician Primary Care Provider Unava ilable Encounter Details Date Type Department Care Team (Latest Contact Info) Description 02/23/2006 Outpatient Historical [facility] [place] [address] [facility] [address] [place] [address] Quinten Aviles MD [facility] [address] [place] [phone] Anal Fistula (Primary Dx); Anal or Rectal Pain Social History Tobacco Use Types Packs/Day Years Used Date Smoking Tobacco: Never Assessed Comments Unknown Sex and Gender Information Value Date Recorded Sex Assigned at Not on file 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
--- OUTSIDE RECORDS SUMMARY | 2025-08-16 09:38 | XMS_ITS | Patient Health Record ---
Author Organization [facility] Address [address] [place] [address] Care Team Providers Care Sliver Chopper Name Role Phone Michelle Xavier Primary Care Provider Unav ailable Qasim Donis Unavailable [phone] Brant Miller Unavailable [phone] Estuardo Lopes Unavailable [phone] Keke Arreaga Unavailable [phone] Eyad Valladares Unavailable [phone] Thania Cardenas Unavailable [phone] Mally Oliveira Unavailable [phone] Allergies Allergen (clinical drug ingredient) Drug/Non Drug Allergy documented on EMR Reaction Allergy Type Onset Date Status aspirin Aspirin , Drug Allergy Active Coconut Flavor Unknown Drug Allergy Ac tive meloxicam meloxicam , Drug Allergy Active meloxicam Mobic Unknown Drug Allergy Active ketorolac Ketorolac , Drug Allergy Active Results Component Value Reference Range Flag Notes Urine Confirmation Panel (in strument) - [id number] Reviewed date:06/25/2025 12:44:33 PM Interpretation: Performing Lab: Notes/Report: 6-Acetylmorphine 0 <6 ng/mL N This slim t was developed and its performance characteristics determined by [facility]. It has not been cleared or approved by the U.S. Food and Drug Administration. 7-Aminoclonazepam 0 <60 ng/mL N This te st was developed and its performance characteristics determined by [facility]. It has not been cleared or approved by the U.S. Food and Drug Administration. Alprazolam 0 <60 ng/mL N This test was developed and its performance characteristics determined by [facility]. It has not been cleared or approved by the U.S. Food and Drug Administration. Amphetamine 0 <75 ng/mL N This test was developed and its performance characteristics determined by [facility]. It has not been cleared or approved by the U.S. Food and Drug Administration. aOH-Alprazolam 0 <60 ng/mL N This test was developed and its performance characteristics determined by [facility]. It has not been cleared or approved by the U.S. Food and Drug Administration. Buprenorphine 0.0 <7.5 ng/mL N This test w as developed and its performance characteristics determined by [facility]. It has not been cleared or approved by the U.S. Food and Drug Administration. Norbuprenorphine 0.0 <37.5 ng/mL N This te st was developed and its performance characteristics determined by [facility]. It has not been cleared or approved by the U.S. Food and Drug Administration. Carisoprodol 0 <75 ng/mL N This test wa s developed and its performance characteristics determined by [facility]. It has not been cleared or approved by the U.S. Food and Drug Administration. Codeine 0 <75 ng/mL N This test was developed and its performance characteristics determined by [facility]. It has not been cleared or approved by the U.S. Food and Drug Administration. EDDP 0 <75 ng/mL N This test was developed and its performance characteristics determined by [facility]. It has not been cleared or approved by the U.S. Food and Drug Administration. Fentanyl 0 <6 ng/mL N This test was developed and its performance characteristics determined by [facility]. It has not been cleared or approved by the U.S. Food and Drug Administration. Hydrocodone 0 <75 ng/mL N This test was developed and its performance characteristics determined by [facility]. It has not been cleared or approved by the U.S. Food and Drug Administration. Hydromorphone 0 <75 ng/mL N This test w as developed and its performance characteristics determined by [facility]. It has not been cleared or approved by the U.S. Food and Drug Administration. Lorazepam 774 <60 ng/mL H This test was developed and its performance characteristics determined by [facility]. It has not been cleared or approved by the U.S. Food and Drug Administration. MDMA 0 <75 ng/mL N This test was developed and its performance characteristics determined by [facility]. It has not been cleared or approved by the U.S. Food and Drug Administration. Meperidine 0.0 <37.5 ng/mL N This test was developed and its performance characteristics determined by [facility]. It has not been cleared or approved by the U.S. Food and Drug Administration. Meprobamate 0 <75 ng/mL N This test was developed and its performance characteristics determined by [facility]. It has not been cleared or approved by the U.S. Food and Drug Administration. Methamphetamine 0 <75 ng/mL N This test was developed and its performance characteristics determined by [facility]. It has not been cleared or approved by the U.S. Food and Drug Administration. Methadone 0 <75 ng/mL N This test was developed and its performance characteristics determined by [facility]. It has not been cleared or approved by the U.S. Food and Drug Administration. Morphine 4026 <75 ng/mL H This test was developed and its performance characteristics determined by [facility]. It has not been cleared or approved by the U.S. Food and Drug Administration. Nordiazepam 0 <60 ng/mL N This test was developed and its performance characteristics determined by [facility]. It has not been cleared or approved by the U.S. Food and Drug Administration. Norfentanyl 0 <6 ng/mL N This test was developed and its performance characteristics determined by [facility]. It has not been cleared or approved by the U.S. Food and Drug Administration. Normeperidine 0.0 <37.5 ng/mL N This test was developed and its performance characteristics determined by [facility]. It has not been cleared or approved by the U.S. Food and Drug Administration. O-desmethyltramadol 0 <75 ng/mL N This test was developed and its performance characteristics determined by [facility]. It has not been cleared or approved by the U.S. Food and Drug Administration. Oxazepam 0 <60 ng/mL N This test was developed and its performance characteristics determined by [facility]. It has not been cleared or approved by the U.S. Food and Drug Administration. Oxycodone 0.0 <37.5 ng/mL N This test was developed and its performance characteristics determined by [facility]. It has not been cleared or approved by the U.S. Food and Drug Administration. Oxymorphone 0 <75 ng/mL N This test was developed and its performance characteristics determined by [facility]. It has not been cleared or approved by the U.S. Food and Drug Administration. Phencyclidine 0.0 <7.5 ng/mL N This test w as developed and its performance characteristics determined by [facility]. It has not been cleared or approved by the U.S. Food and Drug Administration. Tapentadol 3.6 <37.5 ng/mL N This test was developed and its performance characteristics determined by [facility]. It has not been cleared or approved by the U.S. Food and Drug Administration. Temazepam 5 <60 ng/mL N This test was developed and its performance characteristics determined by [facility]. It has not been cleared or approved by the U.S. Food and Drug Administration. Tramadol 6 <75 ng/mL N This test was developed and its performance characteristics determined by [facility]. It has not been cleared or approved by the U.S. Food and Drug Administration. Norhydrocodone 0 <75 ng/mL N This test was developed and its performance characteristics determined by [facility]. It has not been cleared or approved by the U.S. Food and Drug Administration. Noroxycodone 0 <38 ng/mL N This test wa s developed and its performance characteristics determined by [facility]. It has not been cleared or approved by the U.S. Food and Drug Administration. Pregabalin 8455 <225 ng/mL H This test was developed and its performance characteristics determined by [facility]. It has not been cleared or approved by the U.S. Food and Drug Administration. Gabapentin 0 <225 ng/mL N This test was developed and its performance characteristics determined by [facility]. It has not been cleared or approved by the U.S. Food and Drug Administration. Benzoylecgonine 0.0 <37.5 ng/mL N This slim t was developed and its performance characteristics determined by [facility]. It has not been cleared or approved by the U.S. Food and Drug Administration. 4-Hydroxy Xylazine 0 <25 ng/mL N This t est was developed and its performance characteristics determined by [facility]. It has not been cleared or approved by the U.S. Food and Drug Administration. Urine Drug Screen (cup read) - [id number] Reviewed date:06/19/2025 09:58:37 AM Interpretation: Performing Lab: Notes/Report: BZO Pos OPI Pos Tox Results Reviewed date:06/25/2025 12:08:42 PM Interpretation: Performing Lab: Notes/Report: MRI Lumbar Spine w/o Cont-[id number] Reviewed date:08/14/2025 08:25:12 AM Interpretation: Performing Lab: Notes/Report: Reason For Referral Reason Eval and Treat Diagnosis 1 Chronic pain (G89.29 ) Referring Provider First Name Michelle Referring Provider Last Name Trisha Referring Provider Speciality Nurse Viri jalloh Referred Organization [email or web address] [facility] Referred Provider Heber Torres Referred Address [address] [place] [phone], Referred Provider Specialty Pain Medicin e General Notes Lani Avalos 01:19:26 PM CDT > mailing npp, scheduled [...] with food Orally Twice a day Active Levothyroxine Sodium 112 MCG Capsule 1 tablet in the morning on an empty stomach Orally Once a day Not-Taking Ativan 2 MG Tablet 1 tablet at bedtime as needed Orally Once a day Not-Taking Terazosin HCl 5 MG Capsule 1 capsule at bedtime Orally Twice a day; Duration: 30 days Active Sodium Chloride Acti ve Zolpidem Tartrate 10 MG Tablet 1 tablet at bedtime as needed Orally Once a day Not-Taking Spironolactone-HCTZ 25-25 MG Tablet 1 tablet Orally Once a day Not-Taking Prazosin HCl 2 MG Capsule 1 capsule at bedtime Orally Once a day Not-Taking Ozempic (0.25 or 0.5 MG/DOSE) 2 MG/1.5ML Solution Pen-injector as directed Subcutaneous weekly 0.5 mg weekly Not-Taking tiZANidine HCl 4 MG Tablet 1 tablet as needed Orally every 8 hours; Duration: 30 days As needed Not to exceed 3 per day 08/09/2025 Active Morphine Sulfate 15 MG Tablet 1 tablet as needed Orally every 6 hours; Duration: 30 days As needed Not to exceed 4 per day Fill 08/18/2025 08/14/2025 09/13/2025 Active Dilaudid 4 MG Tablet 1 tablet as needed Orally every 6 hrs 4 times a day Active Allopurinol 300 MG Tablet Take 1 tablet by mouth once daily; Duration: 30 Active Lurasidone HCl 80 MG Tablet 1 tablet in the evening with food Orally Once a day Active Marked Tree Carbonate ER 450 MG Tablet Extended Release 1 tablet at bedtime Orally Once a day Active lamoTRIgine 200 MG Tablet 1 tablet Orally Once a day Active Fludrocortisone Acetate 0.1 MG Tablet 1 tablet Orally Once a day Active Immunizations Vaccine Route Administration Date Status Comme nts Influenza (whole), CPT 67058 Inactive Unknown 06/18/2016 Administered Influenza (whole), CPT 46212 Inactive Unknown 06/02/2017 Administered Social History Tobacco Use: Social History [...] Status W/U Status Risk Notes Problem Chronic pain syndrome (703182713) Chronic pain syndrome (G89.4) Active confirmed Problem Chronic kidney disease due to hypertension (572446577549752) Hypertensive chronic kidney disease with stage 1 through stage 4 chronic kidney disease, or unspecified chronic kidney disease (I12.9) Active confirmed Problem Lumbar radiculopathy (734722356) Radiculopathy, lumbar region (M54.16) Active confirmed Problem Essential hypertension (48948218) HTN (hypertension), benign (I10) Active confirmed Problem Cervical radiculopathy (79056751) Cervical radiculopathy (M54.12) Active confirmed Problem Neck pain (69326273) Neck pain (M54.2) Active confirmed Problem Type II diabetes mellitus without complication (908583686) Diabetes (E11.9) Active confirmed Problem History of polyp of colon (situation) (114430944) History of colon polyps (Z86.010) Active confirmed Problem Chronic renal failure syndrome (99470145) Chronic kidney disease, unspecified CKD stage (N18.9) Active confirmed Problem Chronic gouty arthritis (03258435) Chronic gout without tophus, unspecified cause, unspecified site (M1A.9XX0) Active confirmed Problem Post-laminectomy syndrome (14013824) 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) Active confirmed Problem Chronic pain (53023032) Chronic pain (G89.29) Active confirmed Problem Cervical spinal stenosis (98613881) Cervical spinal stenosis (M48.02) Active confirmed Problem Abnormal gait (03102293) Abnormality of gait and mobility (R26.9) Active confirmed Problem Diabetic renal disease (433584008) Type 2 diabetes mellitus with diabetic nephropathy, 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) Active confirmed Problem Left cervical radiculopathy (4259575276476251 6) Left cervical radiculopathy (M54.12) Active confirmed Problem Diabetic renal disease (929342223) Chronic kidney disease due to diabetes mellitus (E11.22) Active confirmed Problem Chronic kidney disease stage 3 (disorder) (187463544) Chronic kidney disease, stage 3 unspecified (N18.30) Active confirmed Problem Chronic kidney disease stage 3A (disorder) (340227437) Chronic kidney disease, stage 3a (N18.31) Active confirmed Problem Primary hypertension (81036925) Primary hypertension (I10) Active confirmed Vital Signs Heart Rate 83 /min 04/05/2025 Temperature 97.2 degrees Fahrenheit 04/05/2025 Respiratory Rate 20 /min 09/04/2024 Height-cm 165.1 cm 08/14/2025 Blood pressure diastolic 99 mm Hg 04/05/2025 Oximetry 100 % 04/05/2025 Weight-kg 96.16 kg 08/14/2025 Height 65 in 08/14/2025 Blood pressure systolic 134 mm Hg 04/05/2025 Weight 212 lbs 08/14/2025 BMI 35.27 kg/m2 08/14/2025 Encounters Encounter Location Date Provider Diagnosis [facility] [address] [address] 08/14/2025 Qasim Krafft Chronic pain syndrome G89.4 ; Failed back syndrome of lumbar spine M96.1 ; snf (current) use of opiate analgesic Z79.891 ; Radiculopathy, lumbar region M54.16 ; Hx of cervical spinal arthrodesis Z98.1 and Abnormality of gait and mobility R26.9 [facility] [address] [address] 07/12/2025 Mally Roxanne Chronic pain syndrome G89.4 ; Failed back syndrome of lumbar spine M96.1 ; snf (current) use of opiate analgesic Z79.891 ; Radiculopathy, lumbar region M54.16 ; Hx of cervical spinal arthrodesis Z98.1 and Abnormality of gait and mobility R26.9 [facility] [place] [address] [place] [phone] 06/19/2025 Qasim Krafft Chronic pain syndrome G89.4 ; Failed back syndrome of lumbar spine M96.1 ; snf (current) use of opiate analgesic Z79.891 ; Radiculopathy, lumbar region M54.16 ; Hx of cervical spinal arthrodesis Z98.1 and Abnormality of gait and mobility R26.9 [facility] [address] [place] [address] Dr [address] [place] [address], [place] [address] 04/05/2025 Keke Arreaga Hypertensive chronic kidney disease with stage 1 through stage 4 chronic kidney disease, or unspecified chronic kidney disease I12.9 ; Chronic kidney disease, stage 3a N18.31 ; HTN (hypertension), benign I10 ; Chronic gout without tophus, unspecified cause, unspecified site M1A.9XX0 ; Hematuria, unspecified type R31.9 ; Hypokalemia E87.6 and Pharmacologic therapy Z79.899 [facility] [place] [address] [place] [phone] 09/04/2024 Estuardo Lopes Cervical radiculopathy M54.12 ; Neck pain M54.2 ; Cervical spinal stenosis M48.02 and Arthrodesis present Z98.1 [facility] [address] [place] [address] 08/31/2024 Eyad Valladares Status post arthroscopy of left shoulder Z98.890 [facility] [address] [address] 05/22/2025 Qasim Donis Chronic pain syndrome G89.4 ; Abnormality of gait and mobility R26.9 ; snf (current) use of opiate analgesic Z79.891 ; Failed back syndrome of lumbar spine M96.1 ; Hx of cervical spinal arthrodesis Z98.1 and Radiculopathy, lumbar region M54.16 [facility] [address] [place] [address] Dr [address] [place] [phone] 01/09/2025 Brant Miller Chronic kidney disease, stage 3a N18.31 ; Hypertensive chronic kidney disease with stage 1 through stage 4 chronic kidney disease, or unspecified chronic kidney disease I12.9 ; HTN (hypertension), benign I10 ; Hematuria, unspecified type R31.9 ; Chronic gout without tophus, unspecified cause, unspecified site M1A.9XX0 and Pharmacologic therapy Z79.899 [facility] [address] [address] 08/09/2025 Qasim Donis Chronic pain syndrome G89.4 [facility] [address] [place] [address] 07/12/2025 Qasim Donis Failed back syndrome of lumbar spine M96.1 [facility] [place] [address] [place] [address] 05/24/2025 Qasim Donis Chronic pain syndrome G89.4 and Failed back syndrome of lumbar spine M96.1 [facility] [place] [address] [place] [address] 05/23/2025 Qasim Donis [facility] [address] [place] [address] [place] [address] 03/04/2025 Brant Miller Chronic kidney disease, stage 3a N18.31 ; Hypertensive chronic kidney disease with stage 1 through stage 4 chronic kidney disease, or unspecified chronic kidney disease I12.9 ; HTN (hypertension), benign I10 ; Hematuria, unspecified type R31.9 ; Chronic gout without tophus, unspecified cause, unspecified site M1A.9XX0 and Pharmacologic therapy Z79.899 [facility] [address] [place] [address] [place] [address] 02/13/2025 [facility] [address] [place] [address] [place] [address] 02/11/2025 [facility] [address] [place] [address] [place] [address] 01/14/2025 Brant Miller Assessments Encounter Date Diagnosis (ICD Code) Assessment Notes Treatment Notes Treatment Clinical Notes Section Notes 08/31/2024 Status post arthroscopy of left shoulder [...] Hematuria is not detected. Hypokalemia has resolved. 05/22/2025 Chronic pain syndrome (ICD-10 - G89.4) I had a nice visit with the patient today regarding her chronic pain issues. 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 She reports rather diffuse pain in both regions. It sounds like she has failed a number of interventions, including an SCS trial many years ago. We discussed treatment options, and I would like to get her stabilized on her medication regimen. She noted better relief with morphine when she was in the hospital. I informed her that I could not and would not prescribe two short-acting pain medications concurrently; I would not prescribe more than four doses a day and would prefer to avoid hydromorphone. Although she does not feel it is working very well, she was open to switching to morphine. We will make that change. She will obtain lumbar imaging for us to review at the next visit. We reviewed the cervical imaging today, which showed no significant pathology or abnormalities aside from the fusion. We will see her back in one month and proceed accordingly. 05/22/2025 Abnormality of gait and mobility (ICD-10 - R26.9) 05/24/2025 Chronic pain syndrome (ICD-10 - G89.4) 06/19/2025 Chronic pain syndrome (ICD-10 - G89.4) I had a nice visit with the patient regarding her chronic pain issues. The patient continues to struggle with pain despite being on a high-dose morphine regimen. We are working to determine what her options may be moving forward. Given that it has been several years since her last imaging, it seems reasonable to obtain updated studies, especially considering her significant history of pathology. She has previously attempted physical therapy, but it resulted in hypertensive episodes severe enough to require emergency room visits. Therefore, we will not pursue a referral to physical therapy at this time. She continues to find her current pain medication regimen relatively effective overall. Her pill counts have been consistent with her current treatment regimen. We will obtian UDS. We will continue her medications unchanged. We will follow up in a month and proceed accordingly. 06/19/2025 Failed back syndrome of lumbar spine (ICD-10 - M96.1) RECOMMEND MRI LUMBAR SPINE MRI of the lumbar spine is being requested to further evaluate the patient's persistent pain, as well as the more worrisome neurologic symptoms. MRI is not typically needed prior to initiating treatment unless there is a rapid change in condition or a deterioration in neurologic status. Findings from this study will be incorporated, in conjunction with objective findings, into the decision process of formulating a treatment plan for this patient. Due to patient having blood pressure issues during previous physical therapy she cannot complete any current physical therapy as it would endanger her heatlh. 07/12/2025 Chronic pain syndrome (ICD-10 - G89.4) I had a nice discussion with patient today regarding her chronic pain complaints. She continues to have pain that is worse in her lower back. Lumbar MRI was ordered at her last visit and she states that she is scheduled to have that done next week. The results will be reviewed at her next visit. I also did review her last drug screen which was positive for benzos. She states that she takes lorazepam for her anxiety. I did discuss this in detail with her today. Discussed with patient that we do not recommend combining benzodiazepines with opioid medications and to discuss this with her psychiatrist. She states that she does have an appointment coming up with them in August and will discuss that with them to consider other alternatives. Patient understands that she may have to consider other alternatives. She has also been made aware not to take her lorazepam concomitantly with her morphine. Patient is aware of the risks of combining these and is going to take extra caution. She will follow-up with us in a month to review her imaging and proceed accordingly. The patient continues with chronic pain requiring treatment to help restore function and improve quality of life. Risks of opioid therapy as well as interaction of opioids with alcohol, illicit drugs, muscle relaxers, and other sedative medications are reviewed briefly with patient again today. The patient has trialed all other reasonable treatment options and uses the medication to alleviate pain in order to remain active and rest with less pain. No clinically relevant medication side effects are noted. Last UDS and [employer] reviewed today. Patient is advised that best long-term goals include increased activity, core strengthening, proper weight management, coping strategies, avoidance of painful triggers, and targeted interventional therapy. We will see the patient for routine follow up in accordance with all clinic policies. We did remind patient today of current guidelines to decrease opioid when possible. We will continue to stress nonopioid treatment. 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 Hypertension is uncontrolled and is exacerbated by pain.She also has issues with hypotension, possible autonomic dysfunction Gout is controlled. Hematuria is not detected. Hypokalemia has resolved. 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 Hypertension is uncontrolled and is exacerbated by pain.She also has issues with hypotension, possible autonomic dysfunction Gout is controlled. Hematuria is not detected. Hypokalemia has resolved. 01/09/2025 Hematuria, unspecified type (ICD-10 - R31.9) 03/04/2025 Hematuria, unspecified type (ICD-10 - R31.9) 05/22/2025 Radiculopathy, lumbar region (ICD-10 - M54.16) 04/05/2025 Hypokalemia (ICD-10 - E87.6) CKD is stable. Hypertension is uncontrolled and is exacerbated by pain.She also has issues with hypotension, possible autonomic dysfunction Gout is controlled. Hematuria is not detected. Hypokalemia has resolved. 01/09/2025 Chronic gout without tophus, unspecified cause, unspecified site (ICD-10 - M1A.9XX0) 03/04/2025 Chronic gout without tophus, unspecified cause, unspecified site (ICD-10 - M1A.9XX0) 06/19/2025 Abnormality of gait and mobility (ICD-10 - R26.9) 07/12/2025 Hx of cervical spinal arthrodesis (ICD-10 - Z98.1) 08/14/2025 Hx of cervical spinal arthrodesis (ICD-10 - Z98.1) 08/14/2025 Abnormality of gait and mobility (ICD-10 - R26.9) 07/12/2025 Abnormality of gait and mobility (ICD-10 - R26.9) 03/04/2025 Pharmacologic therapy (ICD-10 - Z79.899) 01/09/2025 Pharmacologic therapy (ICD-10 - Z79.899) 04/05/2025 Pharmacologic therapy (ICD-10 - Z79.899) CKD is stable. Hypertension is uncontrolled and is exacerbated by pain.She also has issues with hypotension, possible autonomic dysfunction Gout is controlled. Hematuria is not detected. Hypokalemia has resolved. 08/14/2025 Other Georgina, Bianka Ray, am scribing for Dr. Qasim Donis. I, Dr. Qasim Donis, personally performed the services described in this documentation, as scribed by Bianka Ray, and it is both accurate and complete. 09/04/2024 Other The patient continues to have [...] with in 6 months with labs at [facility] 5 to 10 days prior to appointment. BMP, mag, uric, phos, PTH, UA, microalbumin, creatinine The patient was instructed to follow up with their PCP for preventative health screenings. CKD is stable. Hypertension is uncontrolled and is exacerbated by pain.She also has issues with hypotension, possible autonomic dysfunction Gout is controlled. Hematuria is not detected. Hypokalemia has resolved. 05/22/2025 Other Bianka Erickson, am scribing for Dr. Qasim Donis. I, Dr. Qasim Donis, personally performed the services described in this documentation, as scribed by Bianka Ray, and it is both accurate and complete. 06/19/2025 Other I, Bianka Ray, am scribing for Dr. Qasim Donis. I, Dr. Qasim Donis, personally performed the services described in this documentation, as scribed by Bianka Ray, and it is both accurate and complete. Plan Of Treatment Pending Test Test Name Order Date Shoulder 2V 05/04/2024 Albumin 85895 06/20/2024 Giardia/Cryptosporidium Screen 49020, 87 329 05/13/2022 Basic Metabolic Panel (BMP) 67891 2023 Basic Metabolic Panel (BMP) 98155 2024 CBC w\ Auto Diff 83553 05/13/2022 Comprehensive Metabolic Panel (CMP) 8005 3 05/13/2022 Hemoglobin 91067 06/20/2024 Magnesium (B) 14421 01/09/2025 Magnesium (B) 17744 06/20/2024 Metanephrines Fractionated (U) 24 Hr 838 35 09/29/2022 Phosphorus (B) 58235 06/20/2024 Phosphorus (B) 77879 01/09/2025 Protein (U) Random 13511 06/20/2024 Sedimentation Rate 63185 05/13/2022 Uric Acid (B) 93666 06/20/2024 Uric Acid (B) 70530 01/09/2025 Uric Acid (B) 73585 03/04/2025 Microalbumin (U) Random 25795 01/09/2025 Creatinine (U) 49066 01/09/2025 Creatinine (U) 15210 06/20/2024 Catecholamines (U) 24hr 94393 09/29/2022 UA Reflex Micro, Reflex Cult 55946, 8101 5, 31897 06/20/2024 UA Reflex Micro, Reflex Cult 34711, 8101 5, 83555 07/05/2024 UA Reflex Micro, Reflex Cult 57527, 8101 5, 64510 01/09/2025 Metanephrines Plasma Free 00004 09/29/19 23 PTH Intact 28867 01/09/2025 Calprotectin Fecal 04647 05/13/2022 CT Abdomen, Pelvis w/o Contrast-37498 MRI Cervical Spine w/o Cont-16875 2023 MRI Cervical Spine w/o Cont-32711 2023 Diagnostic Colonoscopy-19020 05/13/2022 EGD, Upper GI Diagnostic-13756 Schedule Confirmation 08/04/2024 Schedule Confirmation 07/23/2024 Schedule Confirmation 07/23/2024 Schedule Confirmation 08/04/2024 Basic Metabolic Panel (BMP) 47887 2023 Magnesium (B) 10049 12/15/2023 Phosphorus (B) 41073 12/15/2023 Uric Acid (B) 40448 12/15/2023 UA Reflex Micro, Reflex Cult 88505, 8101 5, 15359 12/15/2023 UA Reflex Micro, Reflex Cult 70486, 8101 5, 78399 12/26/2023 Albumin 48729 05/15/2024 Basic Metabolic Panel (BMP) 37423 2023 Hemoglobin 41871 05/15/2024 Magnesium (B) 17501 05/15/2024 Phosphorus (B) 57675 05/15/2024 Protein (U) Random 77488 05/15/2024 Uric Acid (B) 83506 05/15/2024 Creatinine (U) 24192 05/15/2024 UA Reflex Micro, Reflex Cult 12745, 8101 5, 56847 05/15/2024 PTH Intact 69510 05/15/2024 Magnesium (B) 67529 03/04/2025 Phosphorus (B) 87662 03/04/2025 Microalbumin (U) Random 93287 03/04/2025 Creatinine (U) 80937 03/04/2025 UA Reflex Micro, Reflex Cult 79975, 8101 5, 19550 03/04/2025 PTH Intact 67897 03/04/2025 Basic Metabolic Panel (BMP) 44568 2024 Future Test Test Name Order Date Albumin 68538 09/29/2025 Basic Metabolic Panel (BMP) 95135 2025 Hemoglobin 13592 09/29/2025 Magnesium (B) 84277 09/29/2025 Phosphorus (B) 68445 09/29/2025 Uric Acid (B) 06389 09/29/2025 Vitamin D Total (B) 82605 09/29/2025 Microalbumin (U) Random 16667 09/29/2025 Creatinine (U) 97606 09/29/2025 UA Reflex Micro, Reflex Cult 51568, 8101 5, 76313 09/29/2025 PTH Intact 36627 09/29/2025 Next Appt Details Provider Name:Keke Jackman Skylar rodriguez, 10/04/2025 11:00:00 AM, [address] [place] [address] Darian Esqu[address], [place], [address], Provider Name:Qasim Donis, 10/16/2025 08:40:00 AM, [address] [place], [address], Insurance Providers Payer Name Payer Address Payer Phone Subscriber Number Group Number Insured Name Patient Relationship to Insured Coverage Start Date Coverage End Date [employer] [address] [address] [place] [phone] [id number] Dennis Garcia Spouse - patient is the [...]
--- OUTSIDE RECORDS SUMMARY | 2025-08-16 09:38 | XMS_ITS | Encounter Summary ---
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) Social History Tobacco Use Types Packs/Day Years Used Date Smoking Tobacco: Never Alcohol Use Standard Drinks/Week Comments No 0 (1 standard drink = 0.6 oz pur e alcohol) Comments Unknown Sex and Gender Information Value Date Recorded Sex Assigned at Not on file 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
--- NOTE | 2025-08-16 10:04 | ED_ITS ---
HPI - Chest Pain 2 General: Chief Complaint: Chest Pain Stated Complaint: high bp (sent from onc) Time Seen by Provider: 08/16/25 10:02 History of Present Illness: 45-year-old female presented to the [facility] room from the oncology clinic. Her blood pressure is markedly elevated at the oncology clinic and she was directed here her blood pressure 200+ systolic when she arrives here. She states she felt poorly last night. She is due to receive an injectable levothyroxine but she has not yet received it because of her blood pressure. She was recently hospitalized for labile blood pressure there is a question of a pheochromocytoma. Patient also reports she has been on doxazosin and prazosin they were not refilling her doxazosin when they realized that she was on both it only they had been coming from different sources. She has some mild chest pain as well Associated symptoms: Deny abdominal pain, dyspnea or fever(s) Related Data Home Medications ?Medication ?Instructions ?Recorded ?Confirmed ondansetron 8 mg disintegrating 8 mg PO Q8H PRN Nausea And Vomiting 12/09/21 08/16/25 tablet allopurinol 300 mg tablet 300 mg PO QAM 11/25/2208/16 tizanidine 4 mg tablet 8 mg PO QID 03/15/25 5 morphine 15 mg immediate release 15 mg PO QID 05/29/25 08/16/25 tablet prazosin 2 mg capsule 2 mg PO BEDTIME 08/13/25 doxazosin 1 mg tablet 1 mg PO Q8H 08/16/25 5 lithium carbonate 150 mg capsule 150 mg PO QAM 5 08/16/25 onabotulinumtoxinA 100 unit 155 unit IM .[id number] 07/2908/16/25 solution for injection (Botox) prochlorperazine maleate 10 mg 10 mg PO TID PRN Nausea 08/16/25 08/16/25 tablet Previous Rx's ?Medication ?Instructions ?Recorded promethazine 25 mg rectal 25 mg CO Q6H PRN nausea and 09/30/23 suppository vomiting #12 ea lurasidone 120 mg tablet 120 mg PO DAILY #30 tabs lamotrigine 200 mg tablet 200 mg PO QAM #30 tabs 11/09 lorazepam 2 mg tablet See Rx Instructions PO .COMP ZULLY 02/25/25 #60 tabs diphenhydramine HCl 25 mg tablet 25 mg PO Q8H PRN head ache #90 tabs 04/26/25 metoprolol tartrate 25 mg tablet 12.5 mg (1/2 x 25 mg) PO BID #90 04/26/25 tabs erenumab-aooe 140 mg/mL 140 mg SUBCUT Q30D #1 mL 10/23 subcutaneous auto-injector (Aimovig Autoinjector) levothyroxine 100 mcg/mL 550 mcg (5.5 mL) IM Q7D 30 d ays 05/02/25 intravenous solution #27.5 mL semaglutide 0.25 mg or 0.5 mg (2 0.5 mg (0.736 mL) SUB CUT Q7D 1 05/02/25 mg/3 mL) subcutaneous pen injector month #3 mL (Ozempic) trazodone 100 mg tablet 100 mg PO .qhs #30 tabs 04/29 05/23 lithium carbonate 300 mg capsule 300 mg PO BID #60 cap s 06/06/25 prednisone 5 mg tablet 7.5 mg (1.5 x 5 mg) PO DAILY #45 07/18/25 tabs Allergies Allergy/AdvReac Type Severity Reaction Status Date / Time midodrine Allergy Intermediate ALGY-Rash Verified 08/13/25 11:54 aspirin Allergy due to BUN Verified 08/13/25 11:54 levels coconut Allergy hives Verified 08/13/25 11:54 ketorolac (From Toradol) Allergy hives Verified 08/13/25 11:54 meloxicam (From Mobic) Allergy hives Verified 08/13/25 11:54 NSAIDS (Non-Steroidal Allergy Unknown Verified 08/13/25 11:54 Anti-Inflamma Review of Systems 2 Const: Denies: fever(s) or chills Card: Reports: chest pain Resp: Denies: dyspnea GI: Denies: abdominal pain : Denies: dysuria, urinary frequency or urinary urgency Musc: Denies: neck pain or back pain Skin/Breast: Denies: rash Neuro: Reports: headache(s) PFSH ED 2 PFSH: Medical History Hypertensive urgency Chronic pain with drug dependence Postsurgical hypothyroidism Goiter Resistant hypertension GERD (gastroesophageal reflux disease) Nausea & vomiting CKD (chronic kidney disease) Hypothyroid Hypertensive urgency, malignant Pulmonary embolism Chest pain at rest Psychiatric care HLD (hyperlipidemia) DM2 (diabetes mellitus, type 2) Chronic back pain Chronic neck and back pain Post traumatic stress disorder (PTSD) Bipolar 1 disorder, depressed, full remission Hypertensive emergency Palpitation Malignant hypertension Chronic renal disease Generalized anxiety disorder Surgical History History of back surgery H/O esophagogastroduodenoscopy (08/12/20) H/O angioplasty History of colonoscopy with polypectomy (08/12/20) History of spinal fusion 10/01/2013- C5-6, ACDFF Dr. Villanueva H/O rectal polypectomy Status post hemilaminotomy 01/06/2012, right L5-S1, disectomy and foraminotomy per Dr. Villanueva History of suburethral sling procedure anterior colporrhapy augmentd with porcine graft, cystoscopy performed on 03/08/[address] Haley History of total hysterectomy 2000 Hx of cholecystectomy History of appendectomy History of bilateral oophorectomy 2011 H/O total thyroidectomy Family History Mother Diabetes Pancreatic cancer Ovarian cancer Father Diabetes Hypertension Stroke COPD (chronic obstructive pulmonary disease) Grandfather Hypertension maternal Heart disease maternal Grandmother Colon cancer maternal Social History Smoking and tobacco/nicotine status: never used tobacco/nicotine Second hand smoke exposure: Yes Alcohol intake: never Substance/Drug Use: never Additional social history: well balanced diet Caregiver/support person: No Lives independently: Yes Household members: spouse Housing: House Marital status: Number of children: 8 Highest education level completed: GED or Equivalent service: No Current occupational status: unemployed Physical Exam 2 Const: COMMON NORMALS: no acute distress GENERAL APPEARANCE: cooperative and comfortable ORIENTATION/CONSCIOUSNESS: Yes awake, Yes oriented to person, Yes oriented to place and Yes oriented to time HENMT: COMMON NORMALS: normocephalic, atraumatic and hearing grossly normal bilaterally HEAD & SCALP: normocephalic and atraumatic Resp: COMMON NORMALS: normal respiratory effort, No retractions, No use of accessory muscles and clear to auscultation bilaterally AUSCULTATION: clear to auscultation bilaterally Cardio: COMMON NORMALS: regular rate, regular rhythm and No murmurs present (Cardio) RATE: regular rate RHYTHM: regular rhythm GI: COMMON NORMALS: Soft to palpation and No hepatosplenomegaly present A USCULTATION: Yes normoactive bowel sounds PALPATION: Yes Soft to palpation, No Tenderness to palpation present (GI), No Guarding due to palpation present (GI) and Yes No hepatosplenomegaly present Extremity: COMMON NORMALS: normal to inspection, capillary refill normal, no clubbing, cyanosis or edema, no calf tenderness and no pedal edema Neuro: SENSORIUM/ORIENTATION: Yes oriented to person, Yes oriented to place and Yes oriented to time Skin: COMMON NORMALS: no rashes or lesions noted GENERAL SKIN EXAM: no rashes or lesions noted Course 2 Vital Signs: Vital signs: Vital Signs Temperature 98.9 F 08/18/25 19:17 Pulse Rate 79 08/19/25 07:00 Respiratory Rate 13 08/19/25 07:00 Blood Pressure 100/58 08/19/25 07:00 Pulse Oximetry 96 08/19/25 07:00 Oxygen Delivery Me thod Room Air 08/19/25 00:00 MDM - Chest Pain Medical Decision Making Medical decision making Social determinants: None I reviewed the patient's medical record. I reviewed the patient's current home meds. Alternate historians: None Differential diagnosis: Accelerated hypertension, acute coronary syndrome, pheochromocytoma, medication side effect, arrhythmia Lab Review: White count normal hemoglobin normal range. Laboratory test shows slight increase in her creatinine from baseline of 1-1.2 lactic acid is 3 with this follow-up lactic acid 2.5. Troponin at 17 and second troponin at 10.23. Urine shows 11-20 white blood cells per high-power field 4+ bacteria. Her lithium level is 0.1. Imaging:Chest x-ray unremarkable. No cardiomegaly no effusions no infiltrates no widening of the mediastinum Assessment of risk Level of risk: High Hospitalization considerations: Admit for labile hypertension. Reexamination: Stable blood pressure improved Assessment and plan: Multiple push dose medications with transient improvement of blood pressure. We also gave several different medications for her migraine with no relief. Think her migraine is being driven by blood pressure and blood pressure fluctuations. Patient started on nicardipine will admit for labile blood pressure control. Patient had recent hospitalization with difficulty with blood pressure management had near identical presentation is today. Discussed with hospitalist will admit orders written. Her white count was normal her lactic acid is slightly elevated I do not believe at this point she is septic she does have a bladder infection but is not nearly to the degree to cause sepsis. She has been given IV fluids discussed with hospitalist antibiotics have also been initiated, and cultures done. Lab Data 08/19/25 04:39 08/19/25 04:39 Radiology Impressions Chest X-Ray 08/16/25 10:56 Impression: Negative chest. Laboratory Results WBC 7.78 10^3/uL (3.29-11.43) 08/16/25 10:07 RBC 5.45 10^6/uL (3.85-5.65) 08/16/25 10:07 Hgb 14.40 g/dL (11.27-16.99) 08/16/25 10:07 Hct 47.6 % (36-47) H 08/16/25 10:07 MCV 87.3 fl (85-98) 08/16/25 10:07 MCH 26.4 pg (27-33) L 08/16/25 10:07 MCHC 30.3 g/dL (30-55) 08/16/25 10:07 RDW 15.5 % (12.1-15.1) H 08/16/25 10:07 Plt Count 262 10^3/cmm (157-399) 08/16/25 10:07 MPV 12.1 fL (7.4-10.4) H 08/16/25 10:07 Neut % (Auto) 58.8 % 08/16/25 10:07 Lymph % (Auto) 31.9 % 08/16/25 10:07 [place] % (Auto) 6.3 % 08/16/25 10:07 Eos % (Auto) 1.3 % 08/16/25 10:07 Baso % (Auto) 0.8 % 08/16/25 10:07 Neut # (Auto) 4.58 10^3/uL (1.8-7.7) 08/16/25 10:07 Lymph # (Auto) 2.5 10^3/uL (0.8-4.8) 08/16/25 10:07 [place] # (Auto) 0.5 10^3/uL (0.2-0.9) 08/16/25 10:07 Eos # (Auto) 0.1 10^3/uL (0.0-0.8) 08/16/25 10:07 Baso # (Auto) 0.1 10^3/uL (0.0-0.1) 08/16/25 10:07 Nucleated RBC % (auto) 0 % 08/16/25 10:07 Nucleated RBCs # 0.0 /100WBC 08/16/25 10:07 Sodium 138 mmol/L (136-145) 08/16/25 10:07 Potassium 4.3 mmol/L (3.5-5.1) 08/16/25 10:07 Chloride 99 mmol/L (98-107) 08/16/25 10:07 Carbon Dioxide 23 mmol/L (22-29) 08/16/25 10:07 Anion Gap 20.3 (5-19) H 08/16/25 10:07 BUN 9 mg/dL (6-20) 08/16/25 10:07 Creatinine 1.2 mg/dL (0.5-0.9) H 08/16/25 10:07 GFR Calculation 48.2 mL/min (90-130) L 08/16/25 10:07 Glucose 111 mg/dL (65-115) 08/16/25 10:07 Calculated Osmolality 285 mOsm/kg (285-295) 08/16/25 10:07 Lactic Acid 2.4 mmol/L (0.5-2.2) H 08/16/25 10:07 Lactic Acid (Sepsis) 2.5 mmol/L (0.5-2.2) H 08/16/25 13:08 Calcium 9.7 mg/dL (8.5-10.5) 08/16/25 10:07 Total Bilirubin 0.3 mg/dL (0.15-1.2) 08/16/25 10:07 AST 18 U/L (0-32) 08/16/25 10:07 ALT 18 U/L (0-33) 08/16/25 10:07 Alkaline Phosphatase 68 U/L (35-105) 08/16/25 10:07 Troponin T Baseline 17 ng/L (0-10) H 08/16/25 10:07 Troponin T 60 Minute 10.38 ng/L (0-10) H 08/16/25 11:04 Delta Troponin T -6.62 ABS# (0-10) L 08/16/25 11:04 Total Protein 7.7 g/dL (6.6-8.7) 08/16/25 10:07 Albumin 4.8 g/dL (3.5-5.2) 08/16/25 10:07 Globulin 2.9 g/dL (1.3-4.6) 08/16/25 10:07 Urine Color Yellow (Yellow) 08/16/25 11:48 Urine Appearance Clear (CLEAR) 08/16/25 11:48 Urine pH 5.0 (5-7) 08/16/25 11:48 Ur Specific Silva 1.016 (1.005-1.030) 08/16/25 11:48 Urine Protein Trace (Negative) A 08/16/25 11:48 Urine Glucose (UA) Negative (Normal) 08/16/25 11:48 Urine Ketones Negative (Negative) 08/16/25 11:48 Urine Blood Negative (Negative) 08/16/25 11:48 Urine Nitrate Positive (Negative) A 08/16/25 11:48 Urine Bilirubin Negative (Negative) 08/16/25 11:48 Urine Urobilinogen 0.2 mg/dL (Negative) 08/16/25 11:48 Ur Leukocyte Esterase Trace (Negative) A 08/16/25 11:48 Urine RBC 0-2 /hpf (0-2) 08/16/25 11:48 Urine WBC 11-20 /hpf (0-5) H 08/16/25 11:48 Ur Squamous Epith Cells 0-5 /hpf (0-5) 08/16/25 11:48 Amorphous Sediment Not Reportable 08/16/25 11:48 Urine Bacteria 4+ /hpf (NONE) H 08/16/25 11:48 Hyaline Casts 11.57 /lpf 08/16/25 11:48 Fine Granular Casts 0-4 /lpf H 08/16/25 11:48 [place] 0.1 mmol/L (0.6-1.2) L 08/16/25 10:07 All radiology interpretation(s) finalized by discharge EKG Data EKG 1: I personally reviewed and interpreted this EKG as follows: Interpretation: EKG 08/16/2025 at 9:51 AM sinus tachycardia rate of 135 CO interval 145 QTc [address] changes noted nonspecific ST abnormalities probably rate related. Compared to EKG 05/14/2025 no significant change EKG 2: I personally reviewed and interpreted this EKG as follows: Interpretation: EKG 1219 2025-07-10 sinus tachycardia rate of 115. CO interval 151 QTc [address] changes noted compared to EKG done earlier same day no significant change Discharge Plan Discharge Patient Disposition: Admitted As Inpatient Admit Provider: Timoteo Krueger Clinical Impression: Labile hypertension, Syncope, Adrenal insufficiency, Accelerated hypertension, Migraine headache, DM2 (diabetes mellitus, type 2) Condition: Stable Coding Level of Care Code ED Corrosion Control Specialist for Chg Fwd Heart Score HEART Score Components History: Slightly Suspicous EKG: Normal Age: 45-64 yrs Risk Factors: 1 or 2 Risk Factors Troponin: Baseline Trop <16 ng/L HEART Score RESULT HEART Score: 2
--- NOTE | 2025-08-16 10:08 | ECG_ITS ---
[facility] Date: 2025-08-16 Pat Name: Nina Garcia Department: Room: Gender: Female Escrow Processor: : 1980 Requested By: Giorgio Jackman Order Number: [id number] Reading MD: SHIVANI GONZALEZ Measurements Intervals [place] Rate: 135 P: 50 WI: 145 QRS: 97 QRSD: 80 T: 8 QT: 282 QTc: 423 Interpretive Statements SINUS TACHYCARDIA BORDERLINE RIGHT AXIS DEVIATION [QRS AXIS > 90] ABNORMAL RHYTHM ECG Compared to ECG 05/17/2025 10:24:06 T-wave abnormality no longer present Electronically Signed On 08-20-2025 12:12:03 SET UP WORKER by SHIVANI GONZALEZ [email or web address]
[2025-08-16 10:26] LABS: Hematocrit 47.6 % (36-47); Hemoglobin 14.40 g/dL (11.27-16.99); Mean Corpuscular HGB Conc 30.3 g/dL (30-55); Mean Corpuscular Hemoglobin 26.4 pg (27-33); Mean Corpuscular Volume 87.3 fl (85-98); Nucleated Red Blood Cells % 0 %; Platelet Count 262 10^3/cmm (157-399); Red Blood Count 5.45 10^6/uL (3.85-5.65); White Blood Count 7.78 10^3/uL (3.29-11.43)
[2025-08-16 10:43] LABS: Troponin(5th) Baseline 17 ng/L (0-10)
[2025-08-16 10:44] LABS: Alanine Aminotransferase 18 U/L (0-33); Albumin Level 4.8 g/dL (3.5-5.2); Alkaline Phosphatase 68 U/L (35-105); Anion Gap 20.3 (5-19); Aspartate Amino Transferase 18 U/L (0-32); Blood Urea Nitrogen 9 mg/dL (6-20); Calcium 9.7 mg/dL (8.5-10.5); Carbon Dioxide 23 mmol/L (22-29); Chloride 99 mmol/L (98-107); Creatinine Clr Calc Pharmacy 66.6490; Globulin 2.9 g/dL (1.3-4.6); Glucose 111 mg/dL (65-115); Osmolality Calculated 285 mOsm/kg (285-295); Potassium 4.3 mmol/L (3.5-5.1); Sodium 138 mmol/L (136-145); Total Protein 7.7 g/dL (6.6-8.7)
[2025-08-16] MEDS: labetalol 5 mg/mL SDV 20mL 10 MG IVP ×2 (10:44→12:46)
[2025-08-16 10:45] LABS: Lactic Sepsis W/Reflex 2.4 mmol/L (0.5-2.2)
[2025-08-16] MEDS: hyDRALAzine 20 mg/mL INJ 1 mL 10 MG IVP ×2 (10:45→11:54)
[2025-08-16 10:46] LABS: Reflex Lactate Order REFLEX LACTIC ORDERD
[2025-08-16] MEDS: diphenhydrAMINE 50 mg/mL SDV 1mL IVP (10:46)
--- NOTE | 2025-08-16 10:56 | XR_ITS ---
WS: [id number] Portable AP upright chest, 08/16/2025 Clinical Data: dyspnea/cough Comparison: Portable chest, 05/17/2025 Findings: No nodules, masses or effusions are seen. The heart is normal. The pulmonary vascularity is not increased. No pneumonia or pneumothorax is seen. There are monitor leads on the chest wall. There is an anterior cervical disc fusion. XR/XR chest 1V portable [id number] Impression: Negative chest.
--- NOTE | 2025-08-16 11:08 | ECG_ITS ---
[facility] Test Date: 2025-08-16 Pat Name: Nina Garcia Department: Room: Gender: Female Ways Operator: : 1980 Requested By: Giorgio Jackman Order Number: [id number] Reading MD: SHIVANI GONZALEZ Measurements Intervals [place] Rate: 115 P: 50 MI: 151 QRS: 82 QRSD: 86 T: 26 QT: 323 QTc: 447 Interpretive Statements Artifact in lead(s) POSSIBLE LEFT ATRIAL ENLARGEMENT [-0.1mV P-WAVE IN V1/V2] ABNORMAL RHYTHM ECG Compared to ECG 08/16/2025 09:51:59 No significant changes Electronically Signed On 08-21-2025 21:00:26 INVESTIGATOR FRAUD by SHIVANI GONZALEZ [email or web address]
--- NOTE | 2025-08-16 11:42 | PC.PHAR ---
Some of pts' medications have fill dates back to March but she verified each one as currently taking. [place] 150mg was written for once daily in am but pt states takes at bedtime. Pt, also has order for [place] 300mg bid. She states she does take both.Pt states she still takes Allopurinol 300mg qam and Lamotrigine 200mg qam.
[2025-08-16 11:56] LABS: Glucose Urine UA Negative (Normal); Nitrate Urine Positive (Negative); Specific Gravity, Urine 1.016 (1.005-1.030)
[2025-08-16 11:59] LABS: Add Urine Microscopic? YES
[2025-08-16 12:17] LABS: UA Slide Review UA Slide Review Perf
--- NOTE | 2025-08-16 12:36 | ECG_ITS ---
[facility] Test Date: 2025-08-16 Pat Name: Nina Garcia Department: Room: Gender: Female Dioramist: : 1980 Requested By: Giorgio Jackman Order Number: [id number] Reading MD: SHIVANI GONZALEZ Measurements Intervals [place] Rate: 114 P: 0 ND: 0 QRS: 92 QRSD: 88 T: 17 QT: 324 QTc: 447 Interpretive Statements Artifact cannot interpret the rytnm BORDERLINE RIGHT AXIS DEVIATION [QRS AXIS > 90] ABNORMAL RHYTHM ECG Compared to ECG 08/16/2025 11:12:05 Sinus tachycardia no longer present Electronically Signed On 08-20-2025 12:11:24 DIRECTOR OF STRATEGIC PROGRAMS by SHIVANI GONZALEZ [email or web address]
[2025-08-16] MEDS: ondansetron 2 mg/ML SDV 2 mL 4 MG IVP (12:45)
[2025-08-16] MEDS: cefTRIAXone 1,000 mg SDV 1000 MG IVP (12:46)
[2025-08-16] MEDS: LORazepam 2 mg/mL INJ 1 mL IVP (13:02)
[2025-08-16] MEDS: nicardipine 20 MG/200 ML PREMIX 50 MG IV (13:40)
[2025-08-16 13:45] LABS: Lactic Acid level (Lactate) 2.5 mmol/L (0.5-2.2)
--- NOTE | 2025-08-16 15:53 | PC.NURSE ---
initial complaint was not chest pain. initial complaint upon checking into er was HTN. upon obtaining vitals and ekg, pt was asked by ux engineer if she had chest pain, which she then said yes. ekg time for chest pain was late d/t initial complaint being HTN, not cp.
[2025-08-16] MEDS: metoprolol tartrate 1 mg/1 mL SDV 5 mL 5 MG IVP (16:05)
--- NOTE | 2025-08-16 16:08 | ECG_ITS ---
[facility] Test Date: 2025-08-16 Pat Name: Nina Garcia Department: Room: ICU11 Gender: Female Therapeutic Dietitian: : 1980 Requested By: Giorgio Jackman Order Number: [id number] Reading MD: SHIVANI GONZALEZ Measurements Intervals [place] Rate: 110 P: 62 OK: 144 QRS: 87 QRSD: 97 T: 50 QT: 321 QTc: 436 Interpretive Statements SINUS TACHYCARDIA LEFT ATRIAL ENLARGEMENT [-0.15mV P-WAVE IN V1/V2] Compared to ECG 08/16/2025 12:57:20 Atrial abnormality now present Supraventricular tachycardia no longer present Electronically Signed On 08-21-2025 20:52:01 CIRCUIT RIDER by SHIVANI GONZALEZ [id number] [id number]
[2025-08-16] MEDS: heparin 5,000 unit/mL INJ 1 mL 5000 UNIT SUBCUT (16:10)
[2025-08-16 16:43] LABS: Lactic Sepsis W/Reflex 2.5 mmol/L (0.5-2.2)
[2025-08-16 16:45] LABS: Reflex Lactate Order REFLEX LACTIC ORDERD; Troponin 5 6HR 9.52 ng/L (0-10); Troponin 5 6HR Delta -7.48 ng/L (0-12)
[2025-08-16 17:12] LABS: Lithium 0.1 mmol/L (0.6-1.2)
[2025-08-16] MEDS: nicardipine 20 MG/200 ML PREMIX 30 MG IV (18:27)
[2025-08-16 19:12] LABS: Lactic Acid level (Lactate) 3.0 mmol/L (0.5-2.2)
--- NOTE | 2025-08-16 19:50 | PM.HP ---
Providers/Chief Complaint Admitting Physician: Timoteo Krueger MD Primary Care Provider: Michelle Rico Chief Complaint: high bp (sent from onc) History of Present Illness As per the retrospective notes and the patient: Nina Garcia is a 45 year old female with a past medical history of hypertension, labile blood pressures, chronic pain, possible pheochromocytoma?, History of shock liver secondary to fluctuating blood pressures, on lithium, Lamictal, hypothyroidism, on weekly levothyroxine dosing through Dr. Toure, with previous multiple admissions due to uncontrolled hypertension and intractable migraine headaches with aura. who presents to [facility] from outpatient clinic as she was going to get her levothyroxine shot but did not get it as she was having high blood pressure. She came to ER, And her initial blood pressure was in 200s systolic. The patient reported that she has been having headaches and feeling of being unwell for the last 3 to 4 days. She is also feeling short of breath and mild chest heaviness. But no syncope or presyncope no dizziness or any falls. She did not report any fever or chills or any recent weight loss. No lower leg swellings orthopnea or PND. However whenever migraine attacks happen or she is unable her blood pressure gets uncontrolled. She is following with a neurologist and she is scheduled to take Botox shots in the next upcoming visit. She is non-smoker. No other drug abuse or alcohol use disorder. Review of Systems General: Reports: 10 or more systems reviewed and unremarkable except in HPI and below Medications/Allergies Home Medications ?Medication ?Instructions ?Recorded ?Confirmed ?Last Taken ?Type ondansetron 8 mg disintegrating 8 mg PO Q8H PRN Nausea And Vomiting 12/09/21 08/16/25 04/22/25 History tablet allopurinol 300 mg tablet 300 mg PO QAM 11/25/22 08/16/25 08/16/25 History promethazine 25 mg rectal 25 mg SC Q6H PRN nausea and 09/30/23 08/16/25 04/22/25 Rx suppository vomiting #12 ea lurasidone 120 mg tablet 120 mg PO DAILY #30 tabs 08/16/24 08/16/25 08/16/25 Rx lamotrigine 200 mg tablet 200 mg PO QAM #30 tabs 11/09/24 08/16/25 08/16/25 Rx lorazepam 2 mg tablet See Rx Instructions PO .COMPLEX 02/25/25 08/16/25 08/16/25 Rx #60 tabs tizanidine 4 mg tablet 8 mg PO QID 03/15/25 08/16/25 08/16/25 History diphenhydramine HCl 25 mg tablet 25 mg PO Q8H PRN headache #90 tabs 04/26/25 08/16/25 Unknown Rx metoprolol tartrate 25 mg tablet 12.5 mg (1/2 x 25 mg) PO BID #90 04/26/25 08/16/25 08/16/25 Rx tabs erenumab-aooe 140 mg/mL 140 mg SUBCUT Q30D #1 mL 04/30/25 08/16/25 07/31/25 Rx subcutaneous auto-injector (Aimovig Autoinjector) levothyroxine 100 mcg/mL 550 mcg (5.5 mL) IM Q7D 30 days 05/02/25 08/16/25 08/09/25 Rx intravenous solution #27.5 mL semaglutide 0.25 mg or 0.5 mg (2 0.5 mg (0.736 mL) SUBCUT Q7D 1 05/02/25 08/16/25 08/10/25 Rx mg/3 mL) subcutaneous pen injector month #3 mL (Ozempic) trazodone 100 mg tablet 100 mg PO .qhs #30 tabs 05/17/25 08/16/25 08/15/25 Rx morphine 15 mg immediate release 15 mg PO QID 05/29/25 08/16/25 08/16/25 History tablet lithium carbonate 300 mg capsule 300 mg PO BID #60 caps 06/06/25 08/16/25 08/16/25 Rx prednisone 5 mg tablet 7.5 mg (1.5 x 5 mg) PO DAILY #45 07/18/25 08/16/25 08/16/25 Rx tabs prazosin 2 mg capsule 2 mg PO BEDTIME 08/13/25 08/16/25 08/15/25 History doxazosin 1 mg tablet 1 mg PO Q8H 08/16/25 08/16/25 08/16/25 History lithium carbonate 150 mg capsule 150 mg PO QAM 08/16/25 08/16/25 08/15/25 History onabotulinumtoxinA 100 unit 155 unit IM .[id number] 08/16/25 08/16/25 Unknown History solution for injection (Botox) prochlorperazine maleate 10 mg 10 mg PO TID PRN Nausea 08/16/25 08/16/25 Unknown History tablet Allergies Allergy/AdvReac Type Severity Reaction Status Date / Time midodrine Allergy Intermediate ALGY-Rash Verified 08/13/25 11:54 aspirin Allergy due to BUN Verified 08/13/25 11:54 levels coconut Allergy hives Verified 08/13/25 11:54 ketorolac (From Toradol) Allergy hives Verified 08/13/25 11:54 meloxicam (From Mobic) Allergy hives Verified 08/13/25 11:54 NSAIDS (Non-Steroidal Allergy Unknown Verified 08/13/25 11:54 Anti-Inflamma PFSH Acute PFSH: Medical History (Updated 08/16/25 @ 20:03 by Timoteo Krueger MD) Hypertensive urgency Chronic pain with drug dependence Postsurgical hypothyroidism Goiter Resistant hypertension GERD (gastroesophageal reflux disease) Nausea & vomiting CKD (chronic kidney disease) Hypothyroid Hypertensive urgency, malignant Pulmonary embolism Chest pain at rest Psychiatric care HLD (hyperlipidemia) DM2 (diabetes mellitus, type 2) Chronic back pain Chronic neck and back pain Post traumatic stress disorder (PTSD) Bipolar 1 disorder, depressed, full remission Hypertensive emergency Palpitation Malignant hypertension Chronic renal disease Generalized anxiety disorder Surgical History History of back surgery H/O esophagogastroduodenoscopy (08/12/20) H/O angioplasty History of colonoscopy with polypectomy (08/12/20) History of spinal fusion 10/01/2013- C5-6, ACDFF Dr. Villanueva H/O rectal polypectomy Status post hemilaminotomy 01/06/2012, right L5-S1, disectomy and foraminotomy per Dr. Villanueva History of suburethral sling procedure anterior colporrhapy augmentd with porcine graft, cystoscopy performed on 03/08/[address] Haley History of total hysterectomy 2000 Hx of cholecystectomy History of appendectomy History of bilateral oophorectomy 2011 H/O total thyroidectomy Family History Mother Diabetes Pancreatic cancer Ovarian cancer Father Diabetes Hypertension Stroke COPD (chronic obstructive pulmonary disease) Grandfather Hypertension maternal Heart disease maternal Grandmother Colon cancer maternal Social History Smoking and tobacco/nicotine status: never used tobacco/nicotine Second hand smoke exposure: Yes Alcohol intake: never Substance/Drug Use: never Additional social history: well balanced diet Caregiver/support person: No Lives independently: Yes Household members: spouse Housing: House Marital status: Number of children: 8 Highest education level completed: GED or Equivalent service: No Current occupational status: unemployed Vitals/I&O/Wt Last Vital Signs Temp 99.2 F 08/16/25 15:05 Pulse 100 08/16/25 19:15 Resp 18 08/16/25 19:15 BP 89/66 08/16/25 19:15 Pulse Ox 90 08/16/25 19:00 O2 Del Method Room Air 08/16/25 15:47 08/16/25 08/16/25 08/16/25 06:59 14:59 22:59 Intake Total 2054 524.000 / 2579.000 Output Total 1500 / 1500 Balance 2054 -976.000 / 1079.000 Weight last 48 hrs Weight 99 kg Weight 96.615 kg Physical Exam Narrative: General: Alert and oriented, lying in discomfort because the patient cannot tolerate light and is avoiding her eyes to open because of the severe headaches and feeling anxious HEENT: Normocephalic, atraumatic, grossly unremarkable exam Cardio: normal rate rhythm, normal S1-S2 without any murmurs, rubs, or gallops and JVD normal Respiratory: normal vascular breathing on auscultation without any wheezes, stridor, rhonchi GI: Abdomen soft, nontender, nondistended, normoactive bowel sounds present all 4 quadrants, Neuro: intact cranial nerves motor and sensory and cerebellar/coordination function without any focal neurological deficit Behavior: Appropriate and cooperative Extremities: Adequate palpable pulses, mild trace edema Data 08/16/25 10:07 08/16/25 10:07 Micro: Microbiology 08/16/25 10:16 Blood Culture - Preliminary Blood SPECIMEN COLLECTED 08/16/25 10:07 Blood Culture - Preliminary Blood SPECIMEN COLLECTED A&P Assessment and plan 1. Hypertensive urgency: Patient received labetalol and hydralazine IV in the ER Possible trigger could be headache that is worsening her blood pressure She was also started on nicardipine drip and to titrate accordingly Patient blood pressure injuries slowly over 24 hours approximately around 160 systolic Home medication reconciled and resumed doxazosin 1 mg orally, metoprolol 12.5 mg twice daily Adequate analgesia to provide to avoid any triggers for high blood pressure If the patient develops focal neurological symptoms stat CT head Neurochecks Seizures precautions Fall precautions Telemetry monitoring 2. Migraine headache: Patient on multiple abortifacient medication for migraine and following with the neurology Patient received IV valproate and lorazepam in the ER with mild improvement Resume home medications including Compazine 25 mg regularly Lamotrigine 200 mg daily Morphine 50 mg p.o. 4 times daily which is her home medication Patient is following with the neurology and is scheduled to have Botox injection 3. Chronic migraine without aura, intractable, with status migrainosus: As mentioned above 4. [place]-induced tremor: At baseline, continue home dose of lithium Continue to monitor and with neurochecks 5. Postsurgical hypothyroidism: Continue home dose of levothyroxine currently patient is taking IV 550 mcg and following with the piecer up 6. Bipolar 1 disorder: Continue home dose of lithium 7. Gastritis: PPI daily 8. DM2 (diabetes mellitus, type 2): Insulin sliding scale and monitor blood glucose Hypoglycemia protocol 9. Lumbar stenosis with neurogenic claudication: Adequate analgesia as per pain scale PDMP PDMP Reviewed: Not Reviewed Attestations Medical Necessity Statement*: Patient will stay more than 2 midnights due to hypertensive urgency leading to severe headaches, migraine with aura, other comorbidities requiring IV infusion and stabilization with monitoring in the ICU Time Spent in Patient Care: 16 - 35 minutes (>than 50% of time spent in counselling and/or direct pt care on unit). Critical Care Time: The high probability of a clinically significant, sudden or life threatening deterioration, as referenced in this documentation, required my full and direct attention, intervention and personal management. The critical care time shown is in addition to time spent performing any reported separately billable procedures and includes the following: [x] Data and vital sign review and interpretation [x] Patient assessment, examination and intervention [x] Medication orders and management [x] Patient/Family updates as able [x] Care Coordination and Documentation. Critical Care Time (min): 35 Other Attestations: Patient condition has been discussed at length with the patient/family, I have independently reviewed the chart labs imaging/diagnostics/EKG. the goals of care and code status with the patient/family/NOK/legal client care representative, and documented accordingly. I have reconciled the medications after confirmation/comorbidities/current clinical condition. The management has been done according to the current clinical condition with respect to patient goals of care and based on recommendations/guidelines. The patient/family has been informed about the current condition and further plan of care. Agreed with the plan of care and understood without any language barrier. Every effort was made to ensure accuracy of converting supervisor. Any obvious errors or omissions should be clarified with the author of the document. Coding Level of Care Code Critical Care >/= 30 minutes Diagnoses Hypertensive urgency I16.0 Migraine headache G43.909 Migraine type: chronic migraine (15 or more days per month) with aura Chronic migraine without aura, intractable, with status migrainosus G43.711 [place]-induced tremor G25.1 Postsurgical hypothyroidism E89.0 Bipolar 1 disorder F31.9 Gastritis K29.70 DM2 (diabetes mellitus, type 2) E11.9 Lumbar stenosis with neurogenic claudication M48.062
[2025-08-17] VITALS (79 sets, daily range): BP systolic 66–189; BP diastolic 45–107; PULSE 64–187; RESP 10–36; TEMP 36.6–36.8; O2SAT 67–100
[2025-08-17] MEDS: norepinephrine 4 MG/250 ML BAG 7.5 MG IV (01:07)
[2025-08-17] MEDS: heparin 5,000 unit/mL INJ 1 mL 5000 UNIT SUBCUT ×2 (03:57→16:01)
[2025-08-17] MEDS: ondansetron 2 mg/ML SDV 2 mL 4 MG IVP (04:55)
[2025-08-17 05:06] LABS: Alanine Aminotransferase 23 U/L (0-33); Albumin Level 3.8 g/dL (3.5-5.2); Alkaline Phosphatase 56 U/L (35-105); Blood Urea Nitrogen 6 mg/dL (6-20); Calcium 8.4 mg/dL (8.5-10.5); Carbon Dioxide 22 mmol/L (22-29); Chloride 103 mmol/L (98-107); Globulin 2.1 g/dL (1.3-4.6); Glucose 110 mg/dL (65-115); Osmolality Calculated 282 mOsm/kg (285-295); Sodium 137 mmol/L (136-145); Total Protein 5.9 g/dL (6.6-8.7)
[2025-08-17 05:12] LABS: Anion Gap 16.8 (5-19); Aspartate Amino Transferase 23 U/L (0-32); Potassium 4.8 mmol/L (3.5-5.1); Thyroid Stimulating Hormone 26.30 uIU/mL (0.27-4.20)
[2025-08-17 05:50] LABS: Hematocrit 38.1 % (36-47); Hemoglobin 11.70 g/dL (11.27-16.99); Mean Corpuscular HGB Conc 30.7 g/dL (30-55); Mean Corpuscular Hemoglobin 26.9 pg (27-33); Mean Corpuscular Volume 87.6 fl (85-98); Nucleated Red Blood Cells % 0 %; Platelet Count 209 10^3/cmm (157-399); Red Blood Count 4.35 10^6/uL (3.85-5.65); White Blood Count 3.92 10^3/uL (3.29-11.43)
--- NOTE | 2025-08-17 10:03 | PC.NURSE ---
Low bp - levophed restarted and increased to 7 mcg/min with bp 90/40's: Dr. Krueger notified- instructed to hold morphine, muscle relaxer and ativan if bp still low ( due scheduled at 11 am and noon), also to give 1 L bolus of normal saline.
--- NOTE | 2025-08-17 12:20 | PM.PN ---
Subjective Subjective: patient came as a case of htn urgency after throwing up, currently stable over 24 hours, the patient got her anti HTN meds and later got hypotension, responsive to fluids. later also started NE, and improved. able to slowly wean off. Likelihood that the patient is under the effect of antihypertensives from the time of admission since she presented with tachycardia of reaching to 160s to 180s initially and high blood pressure requiring beta-blockers. And afterwards the patient became hypotensive requiring bolus of fluids and nor epi in the last 24 hours. Based on her TSH which was quite high around 30s with hypotension, the night physician started her on levothyroxine 100 mcg based on her clinical situation along with signs and symptoms. Early in the morning the patient did not voice any complaints, her headaches were better and there was no chest pain or shortness of breath. She lost her IV line and I inserted 1 20-gauge IV line after ultrasound guidance on her right arm which was having good backflow with forward push. She was still requiring nor epi in the morning but then she responded to fluid bolus and nor epi being weaned off. Vitals/I&O/Wt Last Vital Signs Temp 98.2 F 08/17/25 08:15 Pulse 71 08/17/25 11:30 Resp 13 08/17/25 11:30 BP 124/78 08/17/25 11:30 Pulse Ox 97 08/17/25 11:30 O2 Del Method Room Air 08/17/25 08:15 08/16/25 08/17/25 08/17/25 22:59 06:59 14:59 Intake Total 1524.000 / 3579.000 2045.250 / 5624.250 1104.625 / 1104.625 Output Total 1500 / 1500 800 / 2300 Balance 24.000 / 2079.000 1245.250 / 3324.250 1104.625 / 1104.625 Weight last 48 hrs Weight 102.5 kg Weight 99 kg Weight 96.615 kg Physical Exam Narrative: General: Alert and oriented, lying comfortably, able to complete any sentences, HEENT: Normocephalic, atraumatic, grossly unremarkable exam Cardio: normal rate rhythm, normal S1-S2 without any murmurs, rubs, or gallops and JVD normal Respiratory: normal vascular breathing on auscultation without any wheezes, stridor, rhonchi GI: Abdomen soft, nontender, nondistended, normoactive bowel sounds present all 4 quadrants, Neuro: intact cranial nerves motor and sensory and cerebellar/coordination function without any focal neurological deficit Behavior: Appropriate and cooperative Extremities: Adequate palpable pulses, mild trace edema Urinary Catheter Management: Reyes: Cath Placed During This Visit: yes Reason for Continuing Indwelling Catheter: Accurate Measurement of Urinary Output in Critically Ill Patients Urinary Catheter Date of Insertion: 08/17/25 Urinary Catheter Time of Insertion: 00:55 Data 08/17/25 05:29 08/17/25 04:23 Micro: Microbiology 08/16/25 11:48 Urine Culture - Preliminary Urine,Clean Catch Gram Negative Rods 08/16/25 10:07 Blood Culture - Preliminary Blood NEGATIVE TO DATE 08/16/25 10:16 Blood Culture - Preliminary Blood NEGATIVE TO DATE A&P Assessment and plan 1. Hypertensive urgency: Patient s/p IV labetalol hydralazine, nicardipine drip, IV beta-pepe and later on antihypertensives were also resumed since the patient was tachycardic and hypertensive with severe headache Patient dropped her blood pressure in the last 24 hours, responded to fluids and started on nor epi but currently better and now repeat being weaned off Hold antihypertensives as of now and gradually after weaning nor epi to add one by one her antihypertensives Home medication reconciled and resume initially doxazosin 1 mg orally, and then metoprolol 12.5 mg twice daily after clinically assessing her in the hemodynamics. Neurochecks Seizures precautions Fall precautions Telemetry monitoring Of note: The patient is quite sensitive and labile with her blood pressure headaches. Therefore her presentation always require resuming her medications slowly with adequate pain control that further helps in hypertension and headaches. In the past because of her hypertension and headache she was initially thought of having pheochromocytoma, however workup was not suggestive of pheochromocytoma with increasing urinary catecholamines. Her random cortisol levels in the past has been in the normal range. Crop Adjuster has been on board and reconciled her medicines last visit was in April. 2. Postsurgical hypothyroidism: Continue home dose of levothyroxine currently patient is taking IV 550 mcg and following with the clinical exercise specialist Medications reviewed last seen by clinical exercise specialist on 05/23. Continue prednisone 7.5 mg daily, Florinef 0.2 mg daily and 550 mcg levothyroxine IM weekly since the patient when gets migraine and starts throwing up medications that leads to her hypertension tachycardia like situation she therefore misses her thyroid medications which also affects her condition overall and the TSH level fluctuates without overt symptoms of myxedema coma or severe hypothyroidism. Patient missed her last clinical exercise specialist visit which was scheduled in 05/17/2025 and later on had ER admissions twice. Emphasis on keeping follow-ups with clinical exercise specialist and medication compliance has been provided. 3. Migraine headache: Patient on multiple abortifacient medication for migraine and following with the neurology Patient received IV valproate and lorazepam in the ER with mild improvement Resume home medications including Compazine 25 mg regularly Lamotrigine 200 mg daily Morphine 50 mg p.o. 4 times daily which is her home medication Hold morphine scheduled doses to avoid any hypotensive episodes Patient is following with the neurology and is scheduled to have Botox injection 4. Chronic migraine without aura, intractable, with status migrainosus: As mentioned above 5. [place]-induced tremor: At baseline, continue home dose of lithium Continue to monitor and with neurochecks 6. Bipolar 1 disorder: Continue home dose of lithium 7. Gastritis: PPI daily 8. DM2 (diabetes mellitus, type 2): Insulin sliding scale and monitor blood glucose Hypoglycemia protocol 9. Lumbar stenosis with neurogenic claudication: Adequate analgesia as per pain scale PDMP PDMP Reviewed: Not Reviewed Attestations Medical Necessity Statement*: Patient will require more than 2 midnights in the ICU for management of her hypertensive urgency and later on hypotension requiring nor epi Time Spent in Patient Care: Greater than 35 minutes (>than 50% of time spent in counselling and/or direct pt care on unit). Critical Care Time: The high probability of a clinically significant, sudden or life threatening deterioration, as referenced in this documentation, required my full and direct attention, intervention and personal management. The critical care time shown is in addition to time spent performing any reported separately billable procedures and includes the following: [x] Data and vital sign review and interpretation [x] Patient assessment, examination and intervention [x] Medication orders and management [x] Patient/Family updates as able [x] Care Coordination and Documentation. Critical Care Time (min): 40 Other Attestations: Patient condition has been discussed at length with the patient/family, I have independently reviewed the chart labs imaging/diagnostics/EKG. the goals of care and code status with the patient/family/NOK/legal videotape sales representative, and documented accordingly. I have reconciled the medications after confirmation/comorbidities/current clinical condition. The management has been done according to the current clinical condition with respect to patient goals of care and based on recommendations/guidelines. The patient/family has been informed about the current condition and further plan of care. Agreed with the plan of care and understood without any language barrier. Every effort was made to ensure accuracy of rehabilitation services director. Any obvious errors or omissions should be clarified with the author of the document. Coding Level of Care Code Critical Care >/= 30 minutes Diagnoses Hypertensive urgency I16.0 Postsurgical hypothyroidism E89.0 Migraine headache G43.909 Migraine type: chronic migraine (15 or more days per month) with aura Chronic migraine without aura, intractable, with status migrainosus G43.711 [place]-induced tremor G25.1 Bipolar 1 disorder F31.9 Gastritis K29.70 DM2 (diabetes mellitus, type 2) E11.9 Lumbar stenosis with neurogenic claudication M48.062
[2025-08-18] VITALS (29 sets, daily range): BP systolic 86–122; BP diastolic 49–86; PULSE 62–100; RESP 13–22; TEMP 36.4–37.2; O2SAT 95–100
[2025-08-18] MEDS: heparin 5,000 unit/mL INJ 1 mL 5000 UNIT SUBCUT ×2 (03:10→15:07)
--- NOTE | 2025-08-18 09:20 | PC.NURSE ---
Dr. Krueger aware of AM metoprolol held, patient having lower blood pressures, MAPs above 65. See documented vitals.
--- NOTE | 2025-08-18 17:50 | PC.NURSE ---
Shift note: Overall uneventful shift. Frequent turning to prevent pressure injury performed. Urine output 850ml. Patient able to answer orientation questions correctly. Discussed with Dr. Julien BUN, Creat, Hgb, platelets, verbal order received to D/C luz maria. Patient remains CSU overflow.
--- NOTE | 2025-08-18 19:36 | PM.PN ---
Subjective Subjective: No acute episodes over 24 hours. The patient blood pressure is on the softer side therefore metoprolol was held. Home dose fludrocortisone has been resumed which was initially started at a low dose considering patient was having intermittent uncontrolled hypertension episodes. Patient reported feeling much better and was asking when she can go home, her headache resolved. Currently eating and drinking without any concerns or issues. Vitals/I&O/Wt Last Vital Signs Temp 98.9 F 08/18/25 19:17 Pulse 73 08/18/25 18:00 Resp 15 08/18/25 18:00 BP 88/66 08/18/25 18:00 Pulse Ox 97 08/18/25 18:00 O2 Del Method Room Air 08/18/25 18:00 08/18/25 08/18/25 08/18/25 06:59 14:59 22:59 Intake Total 960 / 3277.750 540 / 540 1132.5 / 1672.5 Output Total 975 / 3675 450 / 450 Balance -15 / -397.250 90 / 90 1132.5 / 1222.5 Weight last 48 hrs Weight 102.784 kg Weight 102.5 kg Physical Exam Narrative: General: Alert and oriented, lying comfortably, able to complete any sentences, HEENT: Normocephalic, atraumatic, grossly unremarkable exam Cardio: normal rate rhythm, normal S1-S2 without any murmurs, rubs, or gallops and JVD normal Respiratory: normal vascular breathing on auscultation without any wheezes, stridor, rhonchi GI: Abdomen soft, nontender, nondistended, normoactive bowel sounds present all 4 quadrants, Neuro: intact cranial nerves motor and sensory and cerebellar/coordination function without any focal neurological deficit Behavior: Appropriate and cooperative Extremities: Adequate palpable pulses, mild trace edema Urinary Catheter Management: Reyes: Cath Placed During This Visit: yes Reason for Continuing Indwelling Catheter: Accurate Measurement of Urinary Output in Critically Ill Patients Urinary Catheter Date of Insertion: 08/17/25 Urinary Catheter Time of Insertion: 00:55 Data 08/17/25 05:29 08/17/25 04:23 Micro: Microbiology 08/16/25 11:48 Urine Culture - Final Urine,Clean Catch Escherichia coli A&P Assessment and plan 1. Hypertensive urgency: Patient s/p IV labetalol hydralazine, nicardipine drip, IV beta-pepe and later on antihypertensives were also resumed since the patient was tachycardic and hypertensive with severe headache Patient dropped her blood pressure in the last 24 hours, responded to fluids and started on nor epi but currently better and off nor epi Her antihypertensives has been held and metoprolol as well since patient blood pressure on the softer side Fludrocortisone at home dose resumed. Neurochecks Seizures precautions Fall precautions Telemetry monitoring Of note: The patient is quite sensitive and labile with her blood pressure headaches. Therefore her presentation always require resuming her medications slowly with adequate pain control that further helps in hypertension and headaches. In the past because of her hypertension and headache she was initially thought of having pheochromocytoma, however workup was not suggestive of pheochromocytoma with increasing urinary catecholamines. Her random cortisol levels in the past has been in the normal range. Battery Tester has been on board and reconciled her medicines last visit was in April. 2. Postsurgical hypothyroidism: Continue home dose of levothyroxine currently patient is taking IV 550 mcg and following with the agent based modeler Medications reviewed last seen by agent based modeler on 05/23. Continue prednisone 7.5 mg daily, Florinef 0.2 mg daily and 550 mcg levothyroxine IM weekly since the patient when gets migraine and starts throwing up medications that leads to her hypertension tachycardia like situation she therefore misses her thyroid medications which also affects her condition overall and the TSH level fluctuates without overt symptoms of myxedema coma or severe hypothyroidism. Patient missed her last agent based modeler visit since her agent based modeler is on maternity leave, which was scheduled in 05/17/2025 and later on had ER admissions twice. Emphasis on keeping follow-ups with agent based modeler and medication compliance has been provided. 3. Migraine headache: Patient on multiple abortifacient medication for migraine and following with the neurology Patient received IV valproate and lorazepam in the ER with mild improvement Resume home medications including Compazine 25 mg regularly Lamotrigine 200 mg daily. Hold morphine scheduled doses to avoid any hypotensive episodes Patient is following with the neurology and is scheduled to have Botox injection 4. Chronic migraine without aura, intractable, with status migrainosus: As mentioned above 5. 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 Bipolar 1 disorder: Continue home dose of lithium 7. Gastritis: PPI daily 8. DM2 (diabetes mellitus, type 2): Insulin sliding scale and monitor blood glucose Hypoglycemia protocol 9. Lumbar stenosis with neurogenic claudication: Adequate analgesia as per pain scale PDMP PDMP Reviewed: Not Reviewed Attestations Medical Necessity Statement*: Patient will stay over midnight to monitor her blood pressure since which is on the softer side and her fludrocortisone dose has been resumed at home dose. Patient to be transferred to [facility] [place] Time Spent in Patient Care: 16 - 35 minutes (>than 50% of time spent in counselling and/or direct pt care on unit). Other Attestations: Patient condition has been discussed at length with the patient/family, I have independently reviewed the chart labs imaging/diagnostics/EKG. the goals of care and code status with the patient/family/NOK/legal enrollment representative, and documented accordingly. I have reconciled the medications after confirmation/comorbidities/current clinical condition. The management has been done according to the current clinical condition with respect to patient goals of care and based on recommendations/guidelines. The patient/family has been informed about the current condition and further plan of care. Agreed with the plan of care and understood without any language barrier. Every effort was made to ensure accuracy of microsoft dynamics ax consultant. Any obvious errors or omissions should be clarified with the author of the document. Coding Level of Care Code 73504 Diagnoses Hypertensive urgency I16.0 Postsurgical hypothyroidism E89.0 Migraine headache G43.909 Migraine type: chronic migraine (15 or more days per month) with aura Chronic migraine without aura, intractable, with status migrainosus G43.711 [place]-induced tremor G25.1 Bipolar 1 disorder F31.9 Gastritis K29.70 DM2 (diabetes mellitus, type 2) E11.9 Lumbar stenosis with neurogenic claudication M48.062
[2025-08-19] VITALS (19 sets, daily range): BP systolic 94–141; BP diastolic 53–117; PULSE 72–108; RESP 11–28; TEMP 36.8; O2SAT 94–98
[2025-08-19] MEDS: heparin 5,000 unit/mL INJ 1 mL 5000 UNIT SUBCUT (04:15)
[2025-08-19 04:48] LABS: Hematocrit 36.9 % (36-47); Hemoglobin 11.30 g/dL (11.27-16.99); Mean Corpuscular HGB Conc 30.6 g/dL (30-55); Mean Corpuscular Hemoglobin 26.8 pg (27-33); Mean Corpuscular Volume 87.4 fl (85-98); Nucleated Red Blood Cells % 0 %; Platelet Count 160 10^3/cmm (157-399); Red Blood Count 4.22 10^6/uL (3.85-5.65); White Blood Count 3.19 10^3/uL (3.29-11.43)
[2025-08-19 05:06] LABS: Alanine Aminotransferase 45 U/L (0-33); Albumin Level 3.3 g/dL (3.5-5.2); Alkaline Phosphatase 58 U/L (35-105); Anion Gap 9.9 (5-19); Aspartate Amino Transferase 41 U/L (0-32); Blood Urea Nitrogen 8 mg/dL (6-20); Calcium 8.1 mg/dL (8.5-10.5); Carbon Dioxide 29 mmol/L (22-29); Chloride 101 mmol/L (98-107); Globulin 2.2 g/dL (1.3-4.6); Glucose 107 mg/dL (65-115); Osmolality Calculated 281 mOsm/kg (285-295); Potassium 3.9 mmol/L (3.5-5.1); Sodium 136 mmol/L (136-145); Total Protein 5.5 g/dL (6.6-8.7)
--- NOTE | 2025-08-19 21:53 | PM.DCS ---
Discharge Providers Date of Admission: 08/16/25 14:29 Date of Discharge: August 19, 2025 Attending Provider at Admission: Timoteo Krueger MD Attending Provider at Discharge: Timoteo Krueger MD Primary Care Provider: Michelle Rico Diagnoses at Discharge Discharge Diagnosis 1. Hypertensive urgency: 2. Postsurgical hypothyroidism: 3. Migraine headache: 4. Chronic migraine without aura, intractable, with status migrainosus: 5. [place]-induced tremor: 6. Bipolar 1 disorder: 7. Gastritis: 8. DM2 (diabetes mellitus, type 2): 9. Lumbar stenosis with neurogenic claudication: Reason for Visit Reason for Visit: high bp (sent from onc) Brief History: As per the retrospective notes and the patient: Nina Garcia is a 45 year old female with a past medical history of hypertension, labile blood pressures, chronic pain, possible pheochromocytoma?, History of shock liver secondary to fluctuating blood pressures, on lithium, Lamictal, hypothyroidism, on weekly levothyroxine dosing through Dr. Toure, with previous multiple admissions due to uncontrolled hypertension and intractable migraine headaches with aura. who presents to [facility] from outpatient clinic as she was going to get her levothyroxine shot but did not get it as she was having high blood pressure. She came to ER, And her initial blood pressure was in 200s systolic. The patient reported that she has been having headaches and feeling of being unwell for the last 3 to 4 days. She is also feeling short of breath and mild chest heaviness. But no syncope or presyncope no dizziness or any falls. She did not report any fever or chills or any recent weight loss. No lower leg swellings orthopnea or PND. However whenever migraine attacks happen or she is unable her blood pressure gets uncontrolled. She is following with a neurologist and she is scheduled to take Botox shots in the next upcoming visit. She is non-smoker. No other drug abuse or alcohol use disorder. Hospital Course Hospital Course Patient on presentation had hypertensive urgency in the ER requiring IV labetalol nicardipine drip and IV beta-pepe. The patient has previous presentation more or less the same requiring IV antihypertensive medications when she gets a headache or migraine attacks with aura. During that episode the patient also unable to take her medications and therefore comes with hypertensive urgency. She had a thorough workup for pheochromocytoma with urinary catecholamines and random cortisol has been in the normal range in the past and retrospective notes reviewed. Bit Shaver has been following the patient for further optimization of her hypothyroidism requiring IM levothyroxine since she is unable to take her medications orally whenever she gets migraine with aura. She is also following with neurology for her migraine attacks which are uncontrolled and is scheduled to have Botox injections. This admission when the patient received medical management as per guideline for her hypertensive urgency, the patient pain also settled down and later the patient dropped her blood pressure requiring boluses of fluids and IV dose of levothyroxine and norepinephrine was also started. In next 24 hours the patient got settled down as the antihypertensive medications that were given on the time of admission fact weaned off. And she was again tachycardic and with mild hypertension. She did not require later on nor epi. The patient was resumed on her home medications. The patient got stabilized over the next hospital course. She further did mention that although she has been prescribed medications for blood pressure but she only takes when she checks her blood pressure 2-3 times at home. Therefore based on this information the patient discharged with further emphasis on medication compliance and adequate monitoring of blood pressure. She also missed her appointment with the in house cra but since the in house cra was on maternity leave but will follow this time. After establishing the stability of the patient she was discharged. She was also having duplication of her medications for alpha blockers with doxazosin and prazosin. Her doxazosin was discontinued and the patient was informed about it. The patient agreed with the plan of care and appreciated the management of the medical team Medications were reconciled after confirmation and according to patient comorbidities and appropriate follow-ups and referrals were provided at the time of discharge. Patient condition has been discussed at length with the patient/family, I have independently reviewed the chart labs imaging/diagnostics/EKG. the goals of care and code status with the patient/family/NOK/legal sales representative church furniture, and documented accordingly. The management has been done according to the current clinical condition with respect to patient goals of care and based on recommendations/guidelines. The patient/family has been informed about the current condition and further plan of care. Agreed with the plan of care and understood without any language barrier. Every effort was made to ensure accuracy of chairman & chief executive officer. Any obvious errors or omissions should be clarified with the author of the document. Physical Exam Narrative: General: Alert and oriented, lying comfortably, able to complete any sentences, HEENT: Normocephalic, atraumatic, grossly unremarkable exam Cardio: normal rate rhythm, normal S1-S2 without any murmurs, rubs, or gallops and JVD normal Respiratory: normal vascular breathing on auscultation without any wheezes, stridor, rhonchi GI: Abdomen soft, nontender, nondistended, normoactive bowel sounds present all 4 quadrants, Neuro: intact cranial nerves motor and sensory and cerebellar/coordination function without any focal neurological deficit Behavior: Appropriate and cooperative Extremities: Adequate palpable pulses, mild trace edema Urinary Catheter Management: Reyes: Cath Placed During This Visit: yes Reason for Continuing Indwelling Catheter: Accurate Measurement of Urinary Output in Critically Ill Patients Urinary Catheter Date of Insertion: 08/17/25 Urinary Catheter Time of Insertion: 00:55 Discharge Data Studies Completed and Pending Completed Studies During Hospitalization Category Date Time Status XR chest 1V portable [id number] Stat Exams 08/16/25 10:56 Completed Pending at discharge Category Date Time Status Blood Culture Stat Lab 08/16/25 10:16 Results Radiology Impressions Chest X-Ray 08/16/25 10:56 Impression: Negative chest. Laboratory Results WBC 3.19 10^3/uL (3.29-11.43) L 08/19/25 04:39 Corrected WBC Cancelled 08/17/25 04:23 RBC 4.22 10^6/uL (3.85-5.65) 08/19/25 04:39 Hgb 11.30 g/dL (11.27-16.99) 08/19/25 04:39 Hct 36.9 % (36-47) 08/19/25 04:39 MCV 87.4 fl (85-98) 08/19/25 04:39 MCH 26.8 pg (27-33) L 08/19/25 04:39 MCHC 30.6 g/dL (30-55) 08/19/25 04:39 RDW 16.3 % (12.1-15.1) H 08/19/25 04:39 Plt Count 160 10^3/cmm (157-399) 08/19/25 04:39 MPV 11.8 fL (7.4-10.4) H 08/19/25 04:39 Gran % Cancelled 08/17/25 04:23 Neut % (Auto) 73.4 % 08/19/25 04:39 Lymph % (Auto) 18.8 % 08/19/25 04:39 [place] % (Auto) 4.7 % 08/19/25 04:39 Eos % (Auto) 1.9 % 08/19/25 04:39 Baso % (Auto) 0.3 % 08/19/25 04:39 Neut # (Auto) 2.34 10^3/uL (1.8-7.7) 08/19/25 04:39 Lymph # (Auto) 0.6 10^3/uL (0.8-4.8) L 08/19/25 04:39 [place] # (Auto) 0.2 10^3/uL (0.2-0.9) 08/19/25 04:39 Eos # (Auto) 0.1 10^3/uL (0.0-0.8) 08/19/25 04:39 Baso # (Auto) 0.0 10^3/uL (0.0-0.1) 08/19/25 04:39 Absolute Gran (auto) Cancelled 08/17/25 04:23 Nucleated RBC % (auto) 0 % 08/19/25 04:39 Nucleated RBCs # 0.0 /100WBC 08/19/25 04:39 Sodium 136 mmol/L (136-145) 08/19/25 04:39 Potassium 3.9 mmol/L (3.5-5.1) 08/19/25 04:39 Chloride 101 mmol/L (98-107) 08/19/25 04:39 Carbon Dioxide 29 mmol/L (22-29) 08/19/25 04:39 Anion Gap 9.9 (5-19) 08/19/25 04:39 BUN 8 mg/dL (6-20) 08/19/25 04:39 Creatinine 1.0 mg/dL (0.5-0.9) H 08/19/25 04:39 GFR Calculation 59.4 mL/min (90-130) L 08/19/25 04:39 Glucose 107 mg/dL (65-115) 08/19/25 04:39 POC Glucose 159 mg/dL (70-110) H 08/19/25 07:58 Calculated Osmolality 281 mOsm/kg (285-295) L 08/19/25 04:39 Lactic Acid 2.5 mmol/L (0.5-2.2) H 08/16/25 16:06 Lactic Acid (Sepsis) 3.0 mmol/L (0.5-2.2) H 08/16/25 18:30 Calcium 8.1 mg/dL (8.5-10.5) L 08/19/25 04:39 Total Bilirubin 0.3 mg/dL (0.15-1.2) 08/19/25 04:39 AST 41 U/L (0-32) H 08/19/25 04:39 ALT 45 U/L (0-33) H 08/19/25 04:39 Alkaline Phosphatase 58 U/L (35-105) 08/19/25 04:39 Troponin T Baseline 17 ng/L (0-10) H 08/16/25 10:07 Troponin T 60 Minute 10.38 ng/L (0-10) H 08/16/25 11:04 Delta Troponin T -6.62 ABS# (0-10) L 08/16/25 11:04 Troponin T Hi Sens 6Hr 9.52 ng/L (0-10) 08/16/25 16:06 Troponin T Hi Sens 6Hr Delta -7.48 ng/L (0-12) L 08/16/25 16:06 Total Protein 5.5 g/dL (6.6-8.7) L 08/19/25 04:39 Albumin 3.3 g/dL (3.5-5.2) L 08/19/25 04:39 Globulin 2.2 g/dL (1.3-4.6) 08/19/25 04:39 TSH 26.30 uIU/mL (0.27-4.20) H 08/17/25 04:23 Urine Color Yellow (Yellow) 08/16/25 11:48 Urine Appearance Clear (CLEAR) 08/16/25 11:48 Urine pH 5.0 (5-7) 08/16/25 11:48 Ur Specific [place] 1.016 (1.005-1.030) 08/16/25 11:48 Urine Protein Trace (Negative) A 08/16/25 11:48 Urine Glucose (UA) Negative (Normal) 08/16/25 11:48 Urine Ketones Negative (Negative) 08/16/25 11:48 Urine Blood Negative (Negative) 08/16/25 11:48 Urine Nitrate Positive (Negative) A 08/16/25 11:48 Urine Bilirubin Negative (Negative) 08/16/25 11:48 Urine Urobilinogen 0.2 mg/dL (Negative) 08/16/25 11:48 Ur Leukocyte Esterase Trace (Negative) A 08/16/25 11:48 Urine RBC 0-2 /hpf (0-2) 08/16/25 11:48 Urine WBC 11-20 /hpf (0-5) H 08/16/25 11:48 Ur Squamous Epith Cells 0-5 /hpf (0-5) 08/16/25 11:48 Amorphous Sediment Not Reportable 08/16/25 11:48 Urine Bacteria 4+ /hpf (NONE) H 08/16/25 11:48 Hyaline Casts 11.57 /lpf 08/16/25 11:48 Fine Granular Casts 0-4 /lpf H 08/16/25 11:48 [place] 0.1 mmol/L (0.6-1.2) L 08/16/25 10:07 Vitals Last Vital Signs Temp 98.2 F 08/19/25 14:38 Pulse 77 08/19/25 14:38 Resp 18 08/19/25 14:38 BP 101/69 08/19/25 14:38 Pulse Ox 97 08/19/25 14:38 O2 Del Method Room Air 08/19/25 14:00 Discharge Plan Discharge Patient Disposition: Home Condition: Stable Prescriptions: New ciprofloxacin 250 mg/5 mL suspension,microcapsule recon 250 mg PO BID 5 Days Qty: 50 0RF Continued lamotrigine 200 mg tablet 200 mg PO QAM Qty: 30 11RF Aimovig Autoinjector 140 mg/mL auto-injector 140 mg SUBCUT Q30D Qty: 1 11RF allopurinol 300 mg tablet 300 mg PO QAM morphine 15 mg tablet 15 mg PO QID tizanidine 4 mg tablet 8 mg PO QID trazodone 100 mg tablet 100 mg PO .qhs Qty: 30 11RF levothyroxine 100 mcg/mL solution 550 mcg IM Q7D 30 Days Qty: 27.5 2RF Ozempic 0.25 mg or 0.5 mg (2 mg/3 mL) pen injector 0.5 mg SUBCUT Q7D 30 Days Qty: 3 3RF Rx Instructions: prazosin 2 mg capsule 2 mg PO BEDTIME lurasidone 120 mg tablet 120 mg PO DAILY Qty: 30 11RF Rx Instructions: must administer with food (at least 350 calories) lorazepam 2 mg tablet See Rx Instructions PO .COMPLEX Qty: 60 5RF Rx Instructions: Take one half tablet (1mg) by mouth in AM and at noon, then take one tablet (2mg) at bedtime. lithium carbonate 300 mg capsule 300 mg PO BID Qty: 60 11RF prednisone 5 mg tablet 7.5 mg PO DAILY Qty: 45 0RF lithium carbonate 150 mg capsule 150 mg PO QAM prochlorperazine maleate 10 mg tablet 10 mg PO TID PRN (Reason: Nausea) Botox 100 unit recon soln 155 unit IM .[id number] ondansetron 8 mg tablet,disintegrating 8 mg PO Q8H PRN (Reason: Nausea And Vomiting) promethazine 25 mg suppository 25 mg MS Q6H PRN (Reason: nausea and vomiting) Qty: 12 0RF diphenhydramine HCl 25 mg tablet 25 mg PO Q8H PRN (Reason: headache) Qty: 90 0RF Rx Instructions: Max 100mg/24 hours metoprolol tartrate 25 mg tablet 12.5 mg PO BID Qty: 90 0RF Discontinued doxazosin 1 mg tablet 1 mg PO Q8H Discharge Order = DC NOW: Discharge Order (Routine); Ordered 08/19/25 Ordered By: Timoteo Krueger Referrals: Michelle Rico, E COMMERCE DEVELOPER [Primary Care Provider, Nurse Practitioner] Discharge Diet: Advance as tolerated Discharge Activity: Resume usual activity Patient Instructions: Ciprofloxacin (By mouth), Headache - Migraine (Adult), Heart Failure (DC), Cyclic Vomiting Syndrome (DC), Opioid Safety, Patient Portal & [place]aden Instructions Discharge Attestations Time Spent in Discharge Care*: greater than 30 min Specific Discharge Activities: educating patient, educating and/or supporting family/caregiver, discussing with pcp/other providers, discussing with watch case polisher/social workers/dc planners, documenting/other paperwork and evaluating patient/reviewing data Status at Discharge: Cognitive status at discharge: cognitively intact, Behavioral status at discharge: cooperative, Functional status at discharge: independent ambulation, Overall status at discharge: patient is back to baseline Quality Metrics Clinical Quality Measures [ No reported AMI, CVA or VTE this stay] Coding Level of Care Code Critical Care >/= 30 minutes Diagnoses Hypertensive urgency I16.0 Postsurgical hypothyroidism E89.0 Migraine headache G43.909 Chronic migraine without aura, intractable, with status migrainosus G43.711 [place]-induced tremor G25.1 Bipolar 1 disorder F31.9 Gastritis K29.70 DM2 (diabetes mellitus, type 2) E11.9 Lumbar stenosis with neurogenic claudication M48.062
== END 2025-08-19 14:50 | disposition home or self-care (01) | DRG 305 ==
LOC: ER 12:43 → ICU 15:06
PROVIDERS: Internal Medicine; Physician Assistant; Admitting Provider Student in an Organized Health Care Education/Training Program; Emergency Provider Family Medicine; PCP Nurse Practitioner Family; Visit Provider Student in an Organized Health Care Education/Training Program
DX: I16.0 Hypertensive urgency (principal); E89.0 Postprocedural hypothyroidism; G43.711 Chronic migraine without aura, intractable, with status migrainosus; G25.2 Other specified forms of tremor; F31.76 Bipolar disorder, in full remission, most recent episode depressed; K29.70 Gastritis, unspecified, without bleeding; K21.9 Gastro-esophageal reflux disease without esophagitis; E11.9 Type 2 diabetes mellitus without complications; M48.062 Spinal stenosis, lumbar region with neurogenic claudication; G89.29 Other chronic pain; I1A.0 Resistant hypertension; I12.9 Hypertensive chronic kidney disease with stage 1 through stage 4 chronic kidney disease, or unspecified chronic kidney disease; N18.9 Chronic kidney disease, unspecified; E78.5 Hyperlipidemia, unspecified; R00.0 Tachycardia, unspecified; F43.10 Post-traumatic stress disorder, unspecified; F41.1 Generalized anxiety disorder; Z79.85 Long-term (current) use of injectable non-insulin antidiabetic drugs; Z79.52 Long term (current) use of systemic steroids; Z86.711 Personal history of pulmonary embolism; Z82.3 Family history of stroke; Z82.49 Family history of ischemic heart disease and other diseases of the circulatory system
CPT/HCPCS: 36415; 36416; 51702; 71045; 80053; 80178; 81001; 82962; 83605; 84443; 84484; 85025; 87040; 87077; 87086; 87186; 93005; 96365; 96366; 96367; 96372; 96375; 96376; 99285; J0360; J0696; J1200; J1644; J2060; J2404; J2405; J3490; J7030; J7040; J7120; J7512; J8498; J9999